=== PATIENT | female | born 1950 | race Caucasian/White ===

== ENCOUNTER 2017-03-26 09:31 | Outpatient (RCR) | payer MEDICARE, SELFPAY | END 2017-03-26 09:32 | disposition home or self-care (01) | LOC: DC 09:31 | PROVIDERS: Family Provider Internal Medicine; PCP Internal Medicine; Visit Provider Internal Medicine | DX: E11.9 Type 2 diabetes mellitus without complications (principal); Z71.3 Dietary counseling and surveillance | CPT/HCPCS: 97803; G0108 ==

== ENCOUNTER → 2017-08-15 06:46 | Outpatient (CLI) | payer MEDICARE, SELFPAY ==
[2017-08-15 07:23] LABS: International Normalized Ratio 1.7; Prothrombin Time (Protime)PT. 20.1 SECONDS (11.7-14.9)
== END ==
PROVIDERS: Family Provider Internal Medicine; PCP Internal Medicine; Visit Provider Internal Medicine
DX: I82.5Y3 Chronic embolism and thrombosis of unspecified deep veins of proximal lower extremity, bilateral (principal)
CPT/HCPCS: 36415; 85610

== ENCOUNTER → 2017-08-19 07:14 | Outpatient (CLI) | payer MEDICARE, SELFPAY ==
[2017-08-19 09:14] LABS: International Normalized Ratio 2.4
== END ==
PROVIDERS: Family Provider Internal Medicine; PCP Internal Medicine; Visit Provider Internal Medicine
DX: I82.5Y3 Chronic embolism and thrombosis of unspecified deep veins of proximal lower extremity, bilateral (principal)
CPT/HCPCS: 36415; 85610

== ENCOUNTER → 2017-08-29 06:52 | Outpatient (CLI) | payer MEDICARE, SELFPAY ==
[2017-08-29 07:26] LABS: International Normalized Ratio 2.1
== END ==
PROVIDERS: Family Provider Internal Medicine; PCP Internal Medicine; Visit Provider Internal Medicine
DX: I82.5Y3 Chronic embolism and thrombosis of unspecified deep veins of proximal lower extremity, bilateral (principal)
CPT/HCPCS: 36415; 85610

== ENCOUNTER 2017-10-01 09:32 | Observation (INO) | payer MEDICARE, SELFPAY ==
[2017-10-01] VITALS (12 sets, daily range): BP systolic 105–141; BP diastolic 57–88; PULSE 56–94; RESP 15–18; TEMP 36.3–36.7; O2SAT 97–100; BMI 32.3; BMI 31.6; BMI 32.4
[2017-10-01 10:24] LABS: Absolute Lymphocyte Count 1.58 X10^3/ul (0.83-4.51); Absolute Neutrophil Count 2.3 X10^3/uL (2.0-7.7); Basophil# 0.01 X10^3/uL; Basophil% 0.2 % (0-1); Eosinophil# 0.31 X10^3/uL; Eosinophils% 6.7 % (0-5); Hematocrit 33.8 % (37-47); Hemoglobin 11.1 g/dl (12.0-15.0); Lymphocyte # 1.58 X10^3/ul (4.0); Lymphocyte % 34.1 % (19-41); Mean Corp Hgb Conc 32.8 g/gl (32-36); Mean Corpuscular Hgb 30.2 pg (27.0-32.0); Mean Corpuscular Volume 92.1 fL (81-99); Mean Platelet Vol. 8.5 fl (6.2-12.0); Monocyte# 0.42 X10^3/uL; Monocyte% 9.1 % (0-10); Neutrophil # 2.31 X10^3/uL (2.7-7.7); Neutrophil % 49.7 % (47-70); Platelet Count 180 K/mm3 (150-450); RBC Distribution Width CV 13.4 % (11.6-14.6); RBC Distribution Width SD 43.6 fl (35.1-43.9); Red Blood Count 3.67 M/mm3 (4.2-5.4); White Blood Count 4.6 K/mm3 (4.4-11.0)
[2017-10-01] MEDS: 0.9% Normal Saline 1,000 ML 150 ML IV ×2 (10:30→12:41)
[2017-10-01 10:36] LABS: Anion Gap 6 (5-15); BUN 27 mg/dL (7-18); BUN/Creat Ratio 22.3 RATIO (10-20); Calcium,Total 9.2 mg/dL (8.5-10.1); Chloride 108 mmol/L (98-107); Creatinine, Serum 1.21 mg/dL (0.55-1.02); EST Glomerular Filtration Rate 47 mL/min (>60); Est Glom Filt Rate - Afr Amer 57 mL/min (>60); Estimated Creatinine Clearance 36.17 ml/min; Glucose 196 mg/dL (74-106); Potassium 4.6 mmol/L (3.5-5.1); Sodium Level 142 mmol/L (136-145)
[2017-10-01 10:40] LABS: POSITIVE COUNT NO; POSITIVE DIFFERENTIAL NO; POSITIVE MORPHOLOGY NO
--- NOTE | 2017-10-01 11:06 | ED.VISSUMM ---
- ER Visit Summary Date of Service: 10/01/17 Chief Complaint: [Syncope] History of Present Illness: The patient is a 66 F [presents the emergency department with a syncopal episode that occurred approximately 8:45 AM. Patient states that she was getting fitted for a brace for her left foot when she sat down and her arm started twitching and passed out in her chair for a couple of minutes per her . Patient denies feeling diaphoretic or lightheaded. Patient denies any chest pain or palpitations. Patient's never had an episode like this before. Patient did not sustain any injuries. Patient does have a history of prior stroke, diabetes, high cholesterol, and left foot drop from prior back issues and back surgery. Currently patient is without complaints.] Physical Examination: [HEENT-PERRLA, EOMI. Cranial nerves II through XII grossly intact. TMs clear. Mucous membranes moist. No adenopathy. Cardiovascular-regular rate and rhythm without murmur or ectopy Lungs-clear to auscultation, chest wall stable without crepitus or subcu emphysema Abdomen-normoactive bowel sounds, soft, nontender, no rebound or rigidity, no peritoneal signs. Neuro [id number] and heel elias testing within normal limits, negative Romberg, negative for drift, fundi benign Extremities-intact ?4, normal range of motion, normal pulses, atraumatic] Test Results: [EKG obtained on arrival shows sinus rhythm with a ventricular rate of 59 bpm with no acute I segment changes. CBC with differential is normal. Chemistries showed sodium 142, potassium 4.6, chloride 108, CO2 28, glucose 196, BUN 27, creatinine 1.21. Troponin was less than 0.015. Orthostatic vital signs were negative.] Emergency Department Course and Treatment: Patient had normal saline IV started.] Treatment Plan: [Admit for observation as etiology of syncope unclear] Disposition: [Admit] Impression: [Syncope-etiology uncertain] This note was generated with Find[employer] dictation software. It may contain incorrect words, spelling, and punctuation that were not noted in review of the chart prior to signing ED Disposition - Plan for ED Patient: Chief Complaint: Syncope Referrals: Bernardo Alfaro MD [Primary Care Provider] -
--- NOTE | 2017-10-01 11:13 | NURSING ---
[facility] notified patient may transfer to PCU.
--- NOTE | 2017-10-01 11:31 | PCM.HP.STD ---
Problem List (1) Syncope Status: Acute Qualifiers: Syncope type: vasovagal syncope Qualified Code(s): R55 - Syncope and collapse History of Present Illness Date of Admission: 10/01/17 Chief Complaint: syncope The patient is a 66 year old F who was in her normal state of health where she had a syncopal episode today. Patient was at [employer] getting fitted for an ankle brace for her dropfoot. Patient was standing up and prior to that was feeling nauseated. Patient then subsequently passed out. No evidence of any tonic-clonic activity. Patient states that she has been eating and drinking well. Blood sugar in the ER was 196. Patient denies any chest pain or any palpitations nor shortness of breath. Patient underwent a workup in the emergency room it just include some lab work creatinine was 1.2 but no baseline available. Patient received IV fluids in the emergency room. Patient still just feels off at this time. No previous syncopal episode in the past. [] Past Medical History Medical History: Medical History (Last Updated 10/01/17 @ 11:33 by Manan Gallagher DO) Chronic bronchitis J42 DM2 (diabetes mellitus, type 2) E11.9 VTE (venous thromboembolism) I82.90 Allergies morphine Allergy (Verified 10/01/17 09:37) Unknown oxycodone HCl [From OxyContin] Allergy (Verified 10/01/17 09:37) Unknown propoxyphene HCl [From Darvon] Allergy (Verified 10/01/17 09:37) Unknown chlorhexidine Adverse Reaction (Verified 10/01/17 09:37) Rash cotton Allergy (Uncoded 10/01/17 09:37) Unknown grass Allergy (Uncoded 10/01/17 09:37) Unknown vinegar Allergy (Uncoded 10/01/17 09:37) Unknown wool Allergy (Uncoded 10/01/17 09:37) Unknown feathers Adverse Reaction (Uncoded 10/01/17 09:37) Unknown Home Medications: Ambulatory Orders Medication Instructions Recorded Albuterol Sulfate [Proventil Hfa] 6.7 gm IH 4X/DAY 01/29/13 Ascorbic Acid [Vitamin C] 500 mg PO DAILY@0800 01/29/13 Estradiol [Vagifem] 10 mcg VG MOFR 01/29/13 Ferrous Gluconate 324 mg PO DAILY 01/29/13 Fluticasone/Salmeterol [Advair 1 puff INHALATION BID 01/29/13 100/50 Diskus] Gabapentin [Neurontin] 400 mg PO TIDCM 01/29/13 Multivitamins,Therapeutic 1 tablet PO DAILY 01/29/13 [Multivitamin] Simvastatin [Zocor] 20 mg PO QHS 01/29/13 Warfarin [Coumadin] 7.5 mg PO MOWEFR 01/29/13 Loratadine/Pseudo 240/10 1 tablet PO DAILY 01/18/14 [Claritin-D 24 Hr] Acetaminophen [Tylenol Extra 500 mg PO Q4H PRN PRN 03/19/14 Strength] Docusate Sodium [Colace] 100 mg PO BID 03/19/14 Glucosam/Trevor-Msm1/C/Jassi/Bosw 1 each PO BID 03/19/14 [Osteo Bi-Flex Caplet] Lansoprazole [Prevacid] 30 mg PO DAILY 03/19/14 Oxybutynin [Ditropan] 15 mg PO DAILY 03/19/14 Tylenol Pm 1,000 mg PO QHS 03/19/14 Warfarin [Coumadin] 5 mg PO SUTUTHSA 03/19/14 traMADol [Ultram (G)] 50 mg PO Q4H PRN PRN 10/01/17 Surgical History: arthroscopy, knee, total knee arthroplasty Psychiatric History: No pertinent psych hx Smoking Status: Former smoker Tobacco Use: Non-smoker Alcohol: None Drugs: None - *Family History Maternal History Items: - - no CAD Review of Systems Constitutional: Denies: Anorexia, Chills, Fever, Night Sweats Eyes: Reports: Blurred vision - Just preceding the syncopal event, Double vision HEENT: Reports: Difficulty Hearing, Hard of Hearing Cardiovascular: Reports: Chest Pain, Claudication, Chest Pressure, Chest Tightness Respiratory: Reports: Cough, Shortness of Breath, Shortness of breath at rest, Shortness of breath upon exertion Gastrointestinal: Reports: Abdominal Pain, Constipation, Dyspepsia, Nausea. Denies: Diarrhea, Vomiting Genitourinary: Denies: Dysuria Musculoskeletal: Denies: Joint Pain, Joint Tenderness Skin: Denies: Dryness, Lesions Neurological: Reports: - - Syncope. Denies: Focal weakness, Numbness, Tingling Psychiatric: Denies: Anxiety, Depression Endocrine: Denies: Change in Body Habitus, Heat/ Cold Intolerance Hematologic/ Lymphatic: Reports: Hx of blood clot. Denies: Easy Bruising, Easy Bleeding Comment: All review of systems are negative except as mentioned in the history of present illness and the other review of systems. VTE Information - Inpt Only VTE Present on Admission: No VTE Mechan Device Prophylaxis: None VTE Pharm Prophylaxis ordered?: Yes Patient Problems: Active and Suspected Problems Syncope (Acute) - Physical Exam General: Alert, Cooperative, No apparent distress HEENT: Atraumatic, Normocephalic Oral: Moist Mucosa, No Gingival or Mucosal Lesions/ Ulcerations, - - Edentulous Neck: No Nodes, Thyroid Normal Size and Texture Lungs: Clear to auscultation, Normal air movement, No rhonchi, No wheeze Cardiovascular: Regular rate, Regular Rhythm, Normal S1, Normal S2, No murmurs Abdomen: Bowel Sounds Present, Soft, Non Tender, Non-Distended, No Hepato-splenomegaly Extremities: No edema, No Calf Tenderness Skin: No rashes, No breakdown Neurological: Cranial nerves II-XII grossly intact, Neuro grossly intact, Motor Exam 5/5 strength throughout, Muscle tone normal, Sensory exam intact to light touch and pain Psych/Mental Status: Normal Affect, Appropriate Vital Signs Temp Pulse Resp BP Pulse Ox 36.6 C 61 16 108/76 98 10/01/17 09:33 10/01/17 10:34 10/01/17 10:34 10/01/17 10:34 10/01/17 10:34 Assessment/Plan All Active Problems Syncope (Acute) 1. Vasovagal syncope Patient noted that she was nauseated previously and this occurred when she was standing up. We will give the patient IV fluids and cycle her troponins This patient is feeling better, then we can consider discharging her later on today Do not feel the patient requires a stroke workup. 2.Venous thromboembolic disease Continue with Coumadin Check INR Hold the patient's vaginal estradiol 3. DVT prophylaxis: Patient is on Coumadin for VTE treatment Discussed with the patient's at bedside Code Visit OBSV E&M: 77715 Initial observation care L3
--- NOTE | 2017-10-01 11:35 | HP.PCM_ITS ---
Problem List (1) Syncope Status: Acute Qualifiers: Syncope type: vasovagal syncope Qualified Code(s): R55 - Syncope and collapse History of Present Illness Date of Admission: 10/01/17 Chief Complaint: syncope The patient is a 66 year old F who was in her normal state of health where she had a syncopal episode today. Patient was at [employer] getting fitted for an ankle brace for her dropfoot. Patient was standing up and prior to that was feeling nauseated. Patient then subsequently passed out. No evidence of any tonic-clonic activity. Patient states that she has been eating and drinking well. Blood sugar in the ER was 196. Patient denies any chest pain or any palpitations nor shortness of breath. Patient underwent a workup in the emergency room it just include some lab work creatinine was 1.2 but no baseline available. Patient received IV fluids in the emergency room. Patient still just feels off at this time. No previous syncopal episode in the past. [] Past Medical History Medical History: Medical History (Last Updated 10/01/17 @ 11:33 by Manan Gallagher DO) Chronic bronchitis J42 DM2 (diabetes mellitus, type 2) E11.9 VTE (venous thromboembolism) I82.90 Allergies morphine Allergy (Verified 10/01/17 09:37) Unknown oxycodone HCl [From OxyContin] Allergy (Verified 10/01/17 09:37) Unknown propoxyphene HCl [From Darvon] Allergy (Verified 10/01/17 09:37) Unknown chlorhexidine Adverse Reaction (Verified 10/01/17 09:37) Rash cotton Allergy (Uncoded 10/01/17 09:37) Unknown grass Allergy (Uncoded 10/01/17 09:37) Unknown vinegar Allergy (Uncoded 10/01/17 09:37) Unknown wool Allergy (Uncoded 10/01/17 09:37) Unknown feathers Adverse Reaction (Uncoded 10/01/17 09:37) Unknown Home Medications: Ambulatory Orders Medication Instructions Recorded Albuterol Sulfate [Proventil Hfa] 6.7 gm IH 4X/DAY 01/29/13 Ascorbic Acid [Vitamin C] 500 mg PO DAILY@0800 01/29/13 Estradiol [Vagifem] 10 mcg VG MOFR 01/29/13 Ferrous Gluconate 324 mg PO DAILY 01/29/13 Fluticasone/Salmeterol [Advair 1 puff INHALATION BID 01/29/13 100/50 Diskus] Gabapentin [Neurontin] 400 mg PO TIDCM 01/29/13 Multivitamins,Therapeutic 1 tablet PO DAILY 01/29/13 [Multivitamin] Simvastatin [Zocor] 20 mg PO QHS 01/29/13 Warfarin [Coumadin] 7.5 mg PO MOWEFR 01/29/13 Loratadine/Pseudo 240/10 1 tablet PO DAILY 01/18/14 [Claritin-D 24 Hr] Acetaminophen [Tylenol Extra 500 mg PO Q4H PRN PRN 03/19/14 Strength] Docusate Sodium [Colace] 100 mg PO BID 03/19/14 Glucosam/Trevor-Msm1/C/Jassi/Bosw 1 each PO BID 03/19/14 [Osteo Bi-Flex Caplet] Lansoprazole [Prevacid] 30 mg PO DAILY 03/19/14 Oxybutynin [Ditropan] 15 mg PO DAILY 03/19/14 Tylenol Pm 1,000 mg PO QHS 03/19/14 Warfarin [Coumadin] 5 mg PO SUTUTHSA 03/19/14 traMADol [Ultram (G)] 50 mg PO Q4H PRN PRN 10/01/17 Surgical History: arthroscopy, knee, total knee arthroplasty Psychiatric History: No pertinent psych hx Smoking Status: Former smoker Tobacco Use: Non-smoker Alcohol: None Drugs: None - *Family History Maternal History Items: - - no CAD Review of Systems Constitutional: Denies: Anorexia, Chills, Fever, Night Sweats Eyes: Reports: Blurred vision - Just preceding the syncopal event, Double vision HEENT: Reports: Difficulty Hearing, Hard of Hearing Cardiovascular: Reports: Chest Pain, Claudication, Chest Pressure, Chest Tightness Respiratory: Reports: Cough, Shortness of Breath, Shortness of breath at rest, Shortness of breath upon exertion Gastrointestinal: Reports: Abdominal Pain, Constipation, Dyspepsia, Nausea. Denies: Diarrhea, Vomiting Genitourinary: Denies: Dysuria Musculoskeletal: Denies: Joint Pain, Joint Tenderness Skin: Denies: Dryness, Lesions Neurological: Reports: - - Syncope. Denies: Focal weakness, Numbness, Tingling Psychiatric: Denies: Anxiety, Depression Endocrine: Denies: Change in Body Habitus, Heat/ Cold Intolerance Hematologic/ Lymphatic: Reports: Hx of blood clot. Denies: Easy Bruising, Easy Bleeding Comment: All review of systems are negative except as mentioned in the history of present illness and the other review of systems. VTE Information - Inpt Only VTE Present on Admission: No VTE Mechan Device Prophylaxis: None VTE Pharm Prophylaxis ordered?: Yes Patient Problems: Active and Suspected Problems Syncope (Acute) - Physical Exam General: Alert, Cooperative, No apparent distress HEENT: Atraumatic, Normocephalic Oral: Moist Mucosa, No Gingival or Mucosal Lesions/ Ulcerations, - - Edentulous Neck: No Nodes, Thyroid Normal Size and Texture Lungs: Clear to auscultation, Normal air movement, No rhonchi, No wheeze Cardiovascular: Regular rate, Regular Rhythm, Normal S1, Normal S2, No murmurs Abdomen: Bowel Sounds Present, Soft, Non Tender, Non-Distended, No Hepato- splenomegaly Extremities: No edema, No Calf Tenderness Skin: No rashes, No breakdown Neurological: Cranial nerves II-XII grossly intact, Neuro grossly intact, Motor Exam 5/5 strength throughout, Muscle tone normal, Sensory exam intact to light touch and pain Psych/Mental Status: Normal Affect, Appropriate Vital Signs Temp Pulse Resp BP Pulse Ox 36.6 C 61 16 108/76 98 10/01/17 09:33 10/01/17 10:34 10/01/17 10:34 10/01/17 10:34 10/01/17 10:34 Assessment/Plan All Active Problems Syncope (Acute) 1. Vasovagal syncope * Patient noted that she was nauseated previously and this occurred when she was standing up. * We will give the patient IV fluids and cycle her troponins * This patient is feeling better, then we can consider discharging her later on today * Do not feel the patient requires a stroke workup. 2.Venous thromboembolic disease * Continue with Coumadin * Check INR * Hold the patient's vaginal estradiol 3. DVT prophylaxis: Patient is on Coumadin for VTE treatment Discussed with the patient's at bedside Code Visit OBSV E&M: 79275 Initial observation care L3
[2017-10-01 12:06] LABS: Prothrombin Time (Protime)PT. 22.6 SECONDS (11.7-14.9)
[2017-10-01 12:50] LABS: Bedside Glucose 129 mg/dL (70-110)
[2017-10-01] MEDS: Gabapentin 400 MG Capsule PO ×2 (12:53→17:44)
[2017-10-01] MEDS: Acetaminophen 325 MG Tablet 650 MG PO (12:53)
[2017-10-01] MEDS: Pantoprazole Sodium 40 MG Tablet PO (12:53)
[2017-10-01 17:00] LABS: Bedside Glucose 143 mg/dL (70-110)
[2017-10-01] MEDS: traMADol 50 MG Tablet PO (18:31)
[2017-10-01] MEDS: Albuterol 2.5 MG/3 ML VIAL.NEB. INHALATION (19:09)
[2017-10-01] MEDS: Budesonide Respules 0.5 MG/2 ML AMPUL.NEB. INHALATION (19:10)
[2017-10-01] MEDS: DiphenhydrAMINE 25 MG Capsule 50 MG PO (22:02)
[2017-10-01] MEDS: Atorvastatin Calcium 10 MG Tablet PO (22:02)
[2017-10-01 22:11] LABS: Bedside Glucose 166 mg/dL (70-110)
[2017-10-02] VITALS (9 sets, daily range): BP systolic 106–151; BP diastolic 67–90; PULSE 65–85; RESP 16–18; TEMP 36.6–37.2; O2SAT 93–99
[2017-10-02 06:36] LABS: International Normalized Ratio 2.1; Prothrombin Time (Protime)PT. 23.5 SECONDS (11.7-14.9)
[2017-10-02 06:49] LABS: Anion Gap 6 (5-15); BUN 25 mg/dL (7-18); BUN/Creat Ratio 25.3 RATIO (10-20); Calcium,Total 8.7 mg/dL (8.5-10.1); Chloride 111 mmol/L (98-107); Creatinine, Serum 0.99 mg/dL (0.55-1.02); EST Glomerular Filtration Rate 60 mL/min (>60); Est Glom Filt Rate - Afr Amer 72 mL/min (>60); Estimated Creatinine Clearance 42.18 ml/min; Glucose 119 mg/dL (74-106); Potassium 4.3 mmol/L (3.5-5.1); Sodium Level 143 mmol/L (136-145)
[2017-10-02 07:06] LABS: Bedside Glucose 106 mg/dL (70-110)
[2017-10-02] MEDS: Budesonide Respules 0.5 MG/2 ML AMPUL.NEB. INHALATION (07:12)
[2017-10-02] MEDS: Albuterol 2.5 MG/3 ML VIAL.NEB. INHALATION ×2 (07:12→13:18)
--- NOTE | 2017-10-02 07:32 | PCM.PN.HOSP ---
Patient Problems: Active and Suspected Problems (Last Updated 10/01/17 @ 11:33 by Manan Gallagher DO) Syncope (Acute) Subjective: Patient was seen and examined. She feels much improved. Orthostatic vitals is negative. Denies any fever or chills or dizziness or palpitations. Vitals/I&O's: Vital Signs Temp Pulse Resp BP Pulse Ox 98.9 F 74 16 106/67 93 10/02/17 03:57 10/02/17 03:57 10/02/17 03:57 10/02/17 03:57 10/02/17 03:57 Oxygen Delivery Method Room Air Weight: 77.9 kg Body Mass Index (BMI) 31.6 Orthostatic Vital Signs Start: 10/01/17 12:42 Freq: q24h Status: Active Protocol: Activity Type Activity Date Activity User E-Sign Co-Sign Detail Recorded Client Recorded Date Recorded By Document 10/01/17 12:30 [employer] CLERK [id number] 10/01/17 12:43 [employer]ERK 10/01/17 12:30 Orthostatic Vitals Standing -Blood Pressure (90/60-120/80) 138/88 H -Extremity Use Right Arm -Pulse Rate (60-100) 75 Sitting -Blood Pressure (90/60-120/80) 141/82 H -Extremity Use Right Arm -Pulse Rate (60-100) 61 Lying -Blood Pressure (90/60-120/80) 111/67 -Extremity Use Right Arm -Pulse Rate (60-100) 62 Intake and Output for Last 24 Hours 09/30/17 10/01/17 10/02/17 23:59 23:59 23:59 Intake Total 1666 / 1666 659 / 659 Balance 1666 / 1666 659 / 659 General: Alert, Oriented x3, Cooperative HEENT: Atraumatic, PERRLA, EOMI, Normocephalic Oral: Moist Mucosa Neck: Supple Lungs: Clear to auscultation, Normal air movement Cardiovascular: Regular rate, Regular Rhythm, Normal S1, Normal S2, No murmurs Abdomen: Bowel Sounds Present, Soft, Non Tender, Non-Distended, No Hepato-splenomegaly Extremities: No edema Skin: No rashes, No breakdown Musculoskeletal: No Tenderness to Palpation of Joints or Extremities Lymphatic: No Cervical, Supraclavicular, or Inguinal Adenopathy Neurological: Cranial nerves II-XII grossly intact, Neuro grossly intact Psych/Mental Status: Normal Affect, Appropriate Laboratory Results 10/01/17 12:42: POC Glucose 129 H 10/01/17 13:47: Troponin I < 0.015 10/01/17 16:33: Troponin I < 0.015 10/01/17 16:54: POC Glucose 143 H 10/01/17 21:55: POC Glucose 166 H 10/02/17 06:20: PT Pending, INR Pending 10/02/17 06:20: Sodium 143, Potassium 4.3, Chloride 111 H, Carbon Dioxide 26.0, Anion Gap 6, BUN 25 H, Creatinine 0.99, Estim Creat Clear Calc 42.18, Est GFR (MDRD) Af Amer 72, Est GFR (MDRD) Non-Af 60, BUN/Creatinine Ratio 25.3 H, Glucose 119 H, Calcium 8.7 10/02/17 06:58: POC Glucose 106 Current Medications Acetaminophen (Tylenol) 650 mg PO Q6H PRN PRN PRN Reason: Mild Pain (1-3)/Temp > 100.7 F Last Admin: 10/01/17 12:53 Dose: 650 mg Albuterol Sulfate (Ventolin Aerosols) 2.5 mg INHALATION Q6HWA.RT [facility] Last Admin: 10/02/17 07:12 Dose: 2.5 mg Ascorbic Acid (Vitamin C) 500 mg PO DAILY@0800 [facility] Atorvastatin Calcium (Lipitor) 10 mg PO QHS [facility] Last Admin: 10/01/17 22:02 Dose: 10 mg Budesonide (Pulmicort Aerosol) 0.5 mg INHALATION Q12H.RT [facility] Last Admin: 10/02/17 07:12 Dose: 0.5 mg Calcium/Vitamin D (Os-James 500mg + D) 2 tablet PO BIDCM [facility] Diphenhydramine HCl (Benadryl) 50 mg PO QHS [facility] Last Admin: 10/01/17 22:02 Dose: 50 mg Docusate Sodium (Colace) 100 mg PO BID [facility] Last Admin: 10/01/17 22:02 Dose: Not Given Ferrous Gluconate (Ferrous Gluconate) 325 mg PO DAILYCM [facility] Gabapentin (Neurontin) 400 mg PO TIDCM [facility] Loperamide HCl (Imodium) 2 mg PO Q6H PRN PRN PRN Reason: Diarrhea Loratadine (Claritin) 10 mg PO DAILY [facility] Magnesium Hydroxide (Milk Of Magnesia) 30 ml PO DAILY PRN PRN Reason: Constipation Metformin HCl (Glucophage) 500 mg PO DAILY@0800 [facility] Multivitamins (Multivitamin) 1 tablet PO DAILYCM [facility] Ondansetron HCl (Zofran) 4 mg IV Q8H PRN PRN PRN Reason: NAUSEA Pantoprazole Sodium (Protonix) 20 mg PO DAILY [facility] Pseudoephedrine HCl (Sudafed) 60 mg PO Q6H PRN PRN Reason: CONGESTION Sodium Chloride () 5 - 30 ml IV UD PRN PRN Reason: SALINE FLUSH Tolterodine Tartrate (Detrol La) 2 mg PO DAILY [facility] Tramadol HCl (Ultram) 50 mg PO Q4H PRN PRN PRN Reason: PAIN Last Admin: 10/01/17 18:31 Dose: 50 mg Warfarin Sodium (Coumadin (Pbkc)) 5 mg PO SuTuThSa@1700 [facility] Last Admin: 10/01/17 16:36 Dose: Not Given Warfarin Sodium (Coumadin (Pbkc)) 7.5 mg PO MoWeFr@1700 [facility] Medical Necessity - Tobacco Use Smoking Status: Former smoker Tobacco Use: Non-smoker Assessment/Plan All Active Problems (Last Updated 10/01/17 @ 11:33 by Manan Gallagher DO) Syncope (Acute) 66 y/o female with past medical history of DVT who comes in after a syncopal episode and being managed as vasovagal syncope. 1. Syncope, likely vasovagal, orthostatic vitals were negative, troponins are negative, repeat orthostatic vitals today is negative. 2. H/o VTE on chronic coumadin, INR is 2.1, continue on Coumadin, follow-up on INR in the outpatient 3. H/o foot drop, on ankle brace by [employer] 4. DVT Ppx- on Coumadin Code Visit Inpatient E&M: 12010 Subs Hosp L2
[2017-10-02] MEDS: Calcium Carb/Vitamin D 1 TABLET Tablet 2 TABLET PO (08:21)
[2017-10-02] MEDS: Gabapentin 400 MG Capsule PO ×2 (08:22→12:40)
[2017-10-02] MEDS: Multivitamins,Therapeutic Tablet 1 TABLET PO (08:22)
[2017-10-02] MEDS: Ascorbic Acid 500 MG Tablet PO (08:22)
[2017-10-02] MEDS: Docusate Sodium 100 MG Capsule PO (08:24)
[2017-10-02] MEDS: Tolterodine Tartrate 2 MG CAP.SA PO (08:26)
[2017-10-02] MEDS: Ferrous Gluconate 325 MG Tablet PO (09:21)
[2017-10-02] MEDS: Loratadine 10 MG Tablet PO (12:40)
[2017-10-02] MEDS: Pantoprazole Sodium 20 MG Tablet PO (12:40)
[2017-10-02 12:51] LABS: Bedside Glucose 99 mg/dL (70-110)
--- NOTE | 2017-10-02 14:26 | PCM.DC ---
- Discharge Diagnoses Current Active Problems: Current Active and Chronic Problems (Last Updated 10/01/17 @ 11:33 by Manan Gallagher DO) Syncope (Acute) Reason(s) for Visit for Discharge Instructions: Syncope You will use the following diet at home:: Regular Your food should be the consistency of: Regular Your liquids should be the consistency of: Regular/Thin Discharge Activity: Return to Normal Activity Additional Instructions: Note changes to your medications. Keep yourself hydrated all the time. Continue to use your assistive device for your foot drop. Continue to check your INR as scheduled previously with your PCP. Allergies/Adverse Reactions: Allergies morphine Allergy (Verified 10/01/17 09:37) Unknown oxycodone HCl [From OxyContin] Allergy (Verified 10/01/17 09:37) Unknown propoxyphene HCl [From Darvon] Allergy (Verified 10/01/17 09:37) Unknown chlorhexidine Adverse Reaction (Verified 10/01/17 09:37) Rash cotton Allergy (Uncoded 10/01/17 09:37) Unknown grass Allergy (Uncoded 10/01/17 09:37) Unknown vinegar Allergy (Uncoded 10/01/17 09:37) Unknown wool Allergy (Uncoded 10/01/17 09:37) Unknown feathers Adverse Reaction (Uncoded 10/01/17 09:37) Unknown Medications to take at Discharge Albuterol Sulfate [Proventil Hfa] 6.7 gm IH 4X/DAY 01/29/13 Ascorbic Acid [Vitamin C] 500 mg PO DAILY@0800 01/29/13 Estradiol [Vagifem] 10 mcg VG MOFR 01/29/13 Fluticasone/Salmeterol [Advair 100/50 Diskus] 1 puff INHALATION BID 01/29/13 Multivitamins,Therapeutic [Multivitamin] 1 tablet PO DAILY 01/29/13 Simvastatin [Zocor] 20 mg PO QHS 01/29/13 Warfarin [Coumadin] 7.5 mg PO MOWEFR 01/29/13 Acetaminophen [Tylenol] 500 mg PO Q4H PRN PRN 03/19/14 Docusate Sodium [Colace] 100 mg PO BID 03/19/14 Warfarin [Coumadin] 5 mg PO SUTUTHSA 03/19/14 Calcium Carbonate/Vitamin D3 [Calcium 500-Vit D3 200 Tablet] 2 each PO BID 10/01/17 Levocetirizine Dihydrochloride [Xyzal] 5 mg PO DAILY 10/01/17 Loperamide [Imodium] 2 mg PO Q6H PRN PRN 10/01/17 Metformin HCl [Glucophage] 500 mg PO DAILY 10/01/17 [place]-3 Fatty Acids/Fish Oil [Fish Oil 1,000 mg Capsule] 3 each PO DAILY 10/01/17 Omeprazole [Prilosec] 20 mg PO DAILY 10/01/17 Oxybutynin Chloride [Ditropan Xl] 10 mg PO DAILY 10/01/17 traMADol [Ultram] 50 mg PO BID PRN PRN 10/01/17 Ferrous Gluconate 325 mg PO DAILYCM #30 tab 10/02/17 Gabapentin [Neurontin] 400 mg PO TIDCM #90 cap 10/02/17 The following prescriptions were given: Ferrous Gluconate 325 mg PO DAILYCM #30 tab Gabapentin [Neurontin] 400 mg PO TIDCM #90 cap Primary Care Physician: Bernardo Alfaro MD [Primary Care Provider] - Please follow up with your Primary Care Physician in: within 2 weeks Test Results: Test results from this visit will be discussed in further detail at your follow-up appointment, if applicable. Proposed Discharge Date: 10/02/17
--- NOTE | 2017-10-02 14:33 | PCM.DC.SUM ---
Discharge Date and Diagnosis Date of Admission: 10/01/17 Date of Discharge: 10/02/17 - Primary Discharge Diagnosis Active and Suspected Problems (Last Updated 10/01/17 @ 11:33 by Manan Gallagher DO) Syncope (Acute), vasovagal Hospital Course and Treatment None Operations: None Procedures: None Summary of Care Provided: 66 y/o female with past medical history of DVT who comes in after a syncopal episode. Patient was getting fitted for an ankle brace for her left foot drop when she started feeling warm and started down and had a syncopal episode. No history of seizures. 1. Syncope, likely vasovagal, orthostatic vitals were negative, troponins are negative, patient was encouraged to increase her fluid intake, and follow-up with her primary within 2 weeks. 2. 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 3. H/o foot drop, on ankle brace by [employer] Discharge Diet: Low fat/ Low Cholesterol, 2000 mg Sodium Diet Discharge Activity: Return to Normal Activity Home Medications: Medications to take at Discharge Albuterol Sulfate [Proventil Hfa] 6.7 gm IH 4X/DAY 01/29/13 Ascorbic Acid [Vitamin C] 500 mg PO DAILY@0800 01/29/13 Estradiol [Vagifem] 10 mcg VG MOFR 01/29/13 Fluticasone/Salmeterol [Advair 100/50 Diskus] 1 puff INHALATION BID 01/29/13 Multivitamins,Therapeutic [Multivitamin] 1 tablet PO DAILY 01/29/13 Simvastatin [Zocor] 20 mg PO QHS 01/29/13 Warfarin [Coumadin] 7.5 mg PO MOWEFR 01/29/13 Acetaminophen [Tylenol] 500 mg PO Q4H PRN PRN 03/19/14 Docusate Sodium [Colace] 100 mg PO BID 03/19/14 Warfarin [Coumadin] 5 mg PO SUTUTHSA 03/19/14 Calcium Carbonate/Vitamin D3 [Calcium 500-Vit D3 200 Tablet] 2 each PO BID 10/01/17 Levocetirizine Dihydrochloride [Xyzal] 5 mg PO DAILY 10/01/17 Loperamide [Imodium] 2 mg PO Q6H PRN PRN 10/01/17 Metformin HCl [Glucophage] 500 mg PO DAILY 10/01/17 [place]-3 Fatty Acids/Fish Oil [Fish Oil 1,000 mg Capsule] 3 each PO DAILY 10/01/17 Omeprazole [Prilosec] 20 mg PO DAILY 10/01/17 Oxybutynin Chloride [Ditropan Xl] 10 mg PO DAILY 10/01/17 traMADol [Ultram] 50 mg PO BID PRN PRN 10/01/17 Ferrous Gluconate 325 mg PO DAILYCM #30 tab 10/02/17 Gabapentin [Neurontin] 400 mg PO TIDCM #90 cap 10/02/17 Following Prescrptions Were Given to Patient: Ferrous Gluconate 325 mg PO DAILYCM #30 tab Gabapentin [Neurontin] 400 mg PO TIDCM #90 cap Primary Care Physician: Bernardo Alfaro MD [Primary Care Provider] - Please follow up with your Primary Care Physician in: within 2 weeks Disposition: Home Minutes spent on discharge:: 40 Patient Condition:: Stable Medical Necessity - Tobacco Use Smoking Status: Former smoker Tobacco Use: Non-smoker Meaningful Use Info Meaningful Use Diagnoses (Choose all that apply): None applicable Code Visit Inpatient E&M: 20208 Subs Hosp L2
== END 2017-10-02 14:20 | disposition home or self-care (01) ==
LOC: ED 10:29 → PCU 11:16
PROVIDERS: Emergency Provider Emergency Medicine; Family Provider Internal Medicine; PCP Internal Medicine; Visit Provider Internal Medicine
DX: R55 Syncope and collapse (principal); M21.372 Foot drop, left foot; R11.0 Nausea; E11.9 Type 2 diabetes mellitus without complications; J42 Unspecified chronic bronchitis; Z87.891 Personal history of nicotine dependence; Z86.718 Personal history of other venous thrombosis and embolism; Z79.01 Long term (current) use of anticoagulants; Z79.899 Other long term (current) drug therapy; Z79.84 Long term (current) use of oral hypoglycemic drugs
CPT/HCPCS: 36415; 80048; 82962; 84484; 85025; 85610; 93005; 94640; 96360; 96361; 97116; 97162; 97166; 97530; 97535; 97802; 99218; 99285; J7030; A4216; G0378

== ENCOUNTER 2017-10-08 06:29 | Outpatient (RCR) | payer MEDICARE, SELFPAY ==
[2017-09-19 09:05] LABS: International Normalized Ratio 1.8; Prothrombin Time (Protime)PT. 21.1 SECONDS (11.7-14.9)
[2017-10-08 07:34] LABS: International Normalized Ratio 1.8
== END 2017-10-08 08:00 | disposition home or self-care (01) ==
LOC: LAB 06:29
PROVIDERS: Family Provider Internal Medicine; PCP Internal Medicine; Visit Provider Internal Medicine
DX: I82.5Y3 Chronic embolism and thrombosis of unspecified deep veins of proximal lower extremity, bilateral (principal)
CPT/HCPCS: 36415; 85610

== ENCOUNTER 2017-10-31 06:46 | Outpatient (RCR) | payer MEDICARE, SELFPAY ==
[2017-10-23 08:09] LABS: International Normalized Ratio 2.6; Prothrombin Time (Protime)PT. 28.3 SECONDS (11.7-14.9)
[2017-10-31 07:30] LABS: International Normalized Ratio 2.6; Prothrombin Time (Protime)PT. 27.6 SECONDS (11.7-14.9)
== END 2017-10-31 08:00 | disposition home or self-care (01) ==
LOC: LAB 06:46
PROVIDERS: Family Provider Internal Medicine; PCP Internal Medicine; Visit Provider Internal Medicine
DX: I82.5Y3 Chronic embolism and thrombosis of unspecified deep veins of proximal lower extremity, bilateral (principal)
CPT/HCPCS: 36415; 85610

== ENCOUNTER → 2017-11-15 10:24 | Outpatient (CLI) | payer MEDICARE, SELFPAY ==
--- NOTE | 2017-11-15 10:35 | RAD_ITS ---
STUDY: X-RAY - LUMBAR SPINE REASON FOR EXAM: Female, 66 years old. LOW BACK PAIN; MYOFASCIAL PAIN SYNDROME, LUMBAR POST LAMINECTOMY SYNDROME, OSTEOARTHRITIS TECHNIQUE: 5 view(s) of the lumbar spine were obtained. COMPARISON: August 06, 2016 FINDINGS: Normal lumbar lordosis. There is no substantial scoliosis. Spinal fixation hardware is noted. Stable grade 1 retrolisthesis of L2 on L3. Stable grade 1 anterolisthesis of L4 on L5. Hardware appears intact. There is multilevel endplate spondylosis of the lumbar vertebrae. There is multi-level degenerative disc disease with multi-level disc space narrowing. There are atherosclerotic vascular calcifications. The soft tissue structures are unremarkable. RAD/L/S Spine Min 4 Views IMPRESSION: Degenerative changes of the spine, as detailed above. There has been no change since the prior study. Electronically Signed: Venkata June MD at 20:52 EDT , Service support ,
== END ==
PROVIDERS: Family Provider Internal Medicine; PCP Internal Medicine
DX: M79.1 Myalgia (principal); M96.1 Postlaminectomy syndrome, not elsewhere classified; M15.9 Polyosteoarthritis, unspecified
CPT/HCPCS: 72110

== ENCOUNTER → 2017-11-19 17:25 | Outpatient (CLI) | payer MEDICARE, SELFPAY | PROVIDERS: Family Provider Internal Medicine; PCP Internal Medicine; Referring Provider Nurse Practitioner Adult Health; Visit Provider Nurse Practitioner Adult Health | DX: R82.90 Unspecified abnormal findings in urine (principal) | CPT/HCPCS: 87077; 87086; 87088; 87186 ==

== ENCOUNTER 2017-11-21 06:31 | Outpatient (RCR) | payer MEDICARE, SELFPAY ==
[2017-11-21 07:30] LABS: International Normalized Ratio 2.5; Prothrombin Time (Protime)PT. 27.4 SECONDS (11.7-14.9)
== END 2017-11-21 08:00 | disposition home or self-care (01) ==
LOC: LAB 06:31
PROVIDERS: Family Provider Internal Medicine; PCP Internal Medicine; Referring Provider Internal Medicine; Visit Provider Internal Medicine
DX: I82.5Y3 Chronic embolism and thrombosis of unspecified deep veins of proximal lower extremity, bilateral (principal)
CPT/HCPCS: 36415; 85610

== ENCOUNTER → 2018-01-15 10:42 | Outpatient (CLI) | payer MEDICARE, SELFPAY ==
--- NOTE | 2018-01-26 22:23 | LEAS ---
Arterial Study - Arterial Study Arterial Study: This is a 67-year-old female with a history of diabetes mellitus and hyperlipidemia. The patient presents with pain and paresthesias in her left foot suggestive of atherosclerotic peripheral arterial occlusive disease. She is brought to the noninvasive vascular laboratory at this time for the purpose of bilateral noninvasive lower extremity arterial assessment. Doppler signal assessment was used to evaluate the pulses at ankle level bilaterally. The posterior tibial and dorsalis pedis pulses were triphasic bilaterally. Segmental limb pressures were obtained bilaterally. The right ankle pressure, as determined by posterior tibial pulse, was measured at 157 mmHg. The right ankle pressure, as determined by dorsalis pedis pulse, was measured at 170 mmHg. The right digital pressure was measured at 112 mmHg. The left ankle pressure, as determined by posterior tibial and dorsalis pedis pulses, could not be determined due to the noncompressibility of the vasculature. The left digital pressure was measured at 128 mmHg. Pulse?volume recordings were obtained bilaterally and segmentally. Waveform amplitudes appeared to be satisfactory at all levels bilaterally, though the left digital waveform amplitude was slightly diminished. Resting ankle?brachial indices were calculated bilaterally. The resting right ankle?brachial index was calculated to be 1.24. The resting left ankle?brachial index could not be calculated due to the noncompressibility of the vasculature. Digital-brachial indices were calculated bilaterally. The right digital-brachial index was calculated to be 0.82. The left digital-brachial index was calculated to be 0.93. Impression: Based upon the findings of this resting noninvasive lower extremity arterial study, there is no evidence of significant atherosclerotic peripheral arterial occlusive disease in the lower extremities bilaterally. Triphasic waveforms are noted at ankle level bilaterally. The resting right ankle?brachial index is normal. The resting left ankle?brachial index could not be calculated due to the noncompressibility of the vasculature, suggestive of arterial calcification. In this regard, clinical correlation is advised. Digital-brachial indices are bilaterally normal.
--- NOTE | 2018-01-26 22:32 | LEAS_ITS ---
Arterial Study - Arterial Study Arterial Study: This is a 67-year-old female with a history of diabetes mellitus and hyp erlipidemia. The patient presents with pain and paresthesias in her left foot suggestive of atherosclerotic peripheral arterial occlusive disease. She is brought to the noninvasive vascular laboratory at this time for the purpose of bilateral noninvasive lower extremity arterial assessment. Doppler signal assessment was used to evaluate the pulses at ankle level bilaterally. The posterior tibial and dorsalis pedis pulses were triphasic bilaterally. Segmental limb pressures were obtained bilaterally. The right ankle pressure, as determined by posterior tibial pulse, was measured at 157 mmHg. The right ankle pressure, as determined by dorsalis pedis pulse, was measured at 170 mmHg. The right digital pressure was measured at 112 mmHg. The left ankle pressure, as determined by posterior tibial and dorsalis pedis pulses, could not be determined due to the noncompressibility of the vasculature. The left digital pressure was measured at 128 mmHg. Pulse?volume recordings were obtained bilaterally and segmentally. Waveform amplitudes appeared to be satisfactory at all levels bilaterally, though the left digital waveform amplitude was slightly diminished. Resting ankle?brachial indices were calculated bilaterally. The resting right ankle?brachial index was calculated to be 1.24. The resting left ankle?brachial index could not be calculated due to the noncompressibility of the vasculature. Digital-brachial indices were calculated bilaterally. The right digital- brachial index was calculated to be 0.82. The left digital-brachial index was calculated to be 0.93. Impression: Based upon the findings of this resting noninvasive lower extremity arterial study, there is no evidence of significant atherosclerotic peripheral arterial occlusive disease in the lower extremities bilaterally. Triphasic waveforms are noted at ankle level bilaterally. The resting right ankle?brachial index is normal. The resting left ankle?brachial index could not be calculated due to the noncompressibility of the vasculature, suggestive of arterial calcification. In this regard, clinical correlation is advised. Digital-brachial indices are bilaterally normal.
--- OUTSIDE RECORDS SUMMARY | 2018-03-12 19:08 | XMS RPT_ITS ---
:1950 Author Organization OHIP Support Name Relationship Address Phone DOT COMBS Unavailable [address] [place] [address] + [place] [address] R Unavailable Unavailable Unavailable LAURYN, DOT Unavailable [address] [place] [address] + [place] [address] R Unavailable Unavailable Unavailable LAURYN, DOT Unavailable [address] [place] [address] + [place] [address] R Unavailable Unavailable Unavailable LAURYN, DOT Unavailable [address] [place] [address] + [place] [address] R Unavailable Unavailable Unavailable LAURYN, DOT Unavailable [address] [place] [address] + [place] [address] R Unavailable Unavailable Unavailable LAURYN, DOT Unavailable [address] [place] [address] + [place] [address] R Unavailable Unavailable Unavailable LAURYN, DOT Unavailable [address] [place] [address] DR + [place] [address] R Unavailable Unavailable Unavailable LAURYN, DOT Unavailable [address] [place] [address] DR + [place] [address] R Unavailable Unavailable Unavailable LAURYN, DOT Unavailable [address] [place] [address] DR + [place] [address] R Unavailable Unavailable Unavailable LAURYN, DOT Unavailable [address] [place] [address] DR + [place] [address] R Unavailable Unavailable Unavailable LAURYN, DOT Unavailable [address] [place] [address] DR + [place] [address] R Unavailable Unavailable Unavailable LAURYN, DOT Unavailable [address] [place] [address] DR + [place] [address] R Unavailable Unavailable Unavailable LAURYN, DOT Unavailable [address] [place] [address] DR + [place] [address] R Unavailable Unavailable Unavailable LAURYN, DOT Unavailable [address] [place] [address] DR + [place] [address] R Unavailable Unavailable Unavailable LAURYN, DOT Unavailable [address] [facility] + [place] [address] R Unavailable Unavailable Unavailable DOT COMBS Unavailable [address] [facility] [address] [phone] [place] [address] R Unavailable Unavailable Unavailable Care Team Providers Name Role Phone Bernardo Alfaro Attending Unavailable Alfaro, Bernardo Referring Unavailable Alfaro, Bernardo Primary Care Unavailable Alfaro, Bernardo Attending Unavailable Alfaro, Bernardo Referring Unavailable Alfaro, Bernardo Primary Care Unavailable Alfaro, Bernardo Attending Unavailable Alfaro, Bernardo Referring Unavailable Alfaro, Bernardo Primary Care Unavailable Alfaro, Bernardo Attending Unavailable Alfaro, Bernardo Referring Unavailable Alfaro, Bernardo Primary Care Unavailable Alfaro, Bernardo Attending Unavailable Alfaro, Bernardo Referring Unavailable Alfaro, Bernardo Primary Care Unavailable Alfaro, Bernardo Primary Care Unavailable Jopperi, Manan Admitting Unavailable Paintsil, Osseo Attending Unavailable Joppcristi, Manan Admitting Unavailable Jopperi, Manan Attending Unavailable Alfaro, Bernardo Primary Care Unavailable Jopperi, Manan Consulting Unavailable Jopperi, Manan Admitting Unavailable Paintsil, Osseo Attending Unavailable Alfaro, Bernardo Primary Care Unavailable Paintsil, Osseo Consulting Unavailable Bernardo Alfaro Attending Unavailable Dominic, Bernardo Referring Unavailable Alfaro, Bernardo Primary Care Unavailable RANJIT VERDIN Attending Unavailable RANJIT VERDIN Referring Unavailable Alfaro, Bernardo Primary Care Unavailable AlfaroBernardo ch Attending Unavailable Alfaro, Bernardo Primary Care Unavailable Brianne Ewing Attending Unavailable Brianne Ewing Referring Unavailable Alfaro, Bernardo Primary Care Unavailable Alfaro, Bernardo Attending Unavailable Alfaro, Bernardo Referring Unavailable Alfaro, Bernardo Primary Care Unavailable Alfaro, Bernardo Attending Unavailable Alfaro, Bernardo Referring Unavailable Alfaro, Bernardo Primary Care Unavailable Joyce Morales Attending Unavailable Joyce Morales Referring Unavailable Alfaro, Bernardo Primary Care Unavailable Alfaro, Bernardo Attending Unavailable Alfaro, Bernardo Referring Unavailable Alfaro, Bernardo Primary Care Unavailable ALFAROBERNARDO CH H Referring Unavailable KIMBERLY FARAH ([facility]) Attending Unavailable ALFARO, TROY Referring Unavailable ALFARO, TROY Attending Unavailable ALFARO, TROY Referring Unavailable ALFARO, TROY Referring Unavailable ARGELIA THOMSON Referring Unavailable ALFARO, TROY Referring Unavailable OLDER, KIMBERLY ([facility]) Referring Unavailable ALFARO, TROY Referring Unavailable ALFARO, TROY Referring Unavailable ALFARO, TROY Referring Unavailable ALFARO, TROY Attending Unavailable ALFARO, TROY Referring Unavailable ALFARO, TROY Referring Unavailable OLDER, KIMBERLY ([facility]) Attending Unavailable OLDER, KIMBERLY ([facility]) Attending Unavailable OLDER, KIMBERLY ([facility]) Referring Unavailable ALFARO, TROY Referring Unavailable OLDER, KIMBERLY ([facility]) Attending Unavailable OLDER, KIMBERLY ([facility]) Referring Unavailable TESTRAKE, ALEXANDRU Attending Unavailable ALFARO, TROY Referring Unavailable TESTRAKE, ALEXANDRU Referring Unavailable TESTRAKE, ALEXANDRU Attending Unavailable TESTRAKE, ALEXANDRU Referring Unavailable ALFARO, TROY Referring Unavailable TESTRAKE, ALEXANDRU Attending Unavailable TESTRAKE, ALEXANDRU Referring Unavailable TESTRAKE, ALEXANDRU Attending Unavailable TESTRAKE, ALEXANDRU Referring Unavailable TESTRAKE, ALEXANDRU Referring Unavailable TESTRAKE, ALEXANDRU Attending Unavailable TESTRAKE, ALEXANDRU Referring Unavailable TESTRAKE, ALEXANDRU Referring Unavailable OLDER, KIMBERLY ([facility]) Attending Unavailable BERTOARGELIA Attending Unavailable ALFARO, TROY Referring Unavailable ALFARO, TROY Attending Unavailable ALFARO, TROY Referring Unavailable Pete Roman Attending Unavailable Alfaro, Troy. Primary Care Unavailable Pete Roman Attending Unavailable Alfaro, Troy. Primary Care Unavailable Lv Hearn Attending Unavailable Alfaro, Troy. 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 [place] Repository 10/04/2017 Active Charcot's joint, NA Active [facility] left ankle and foot [facility] / M14.672(ICD-10) [place] Repository 10/04/2017 Active Type 2 diabetes NA Active [facility] mellitus with other [facility] diabetic [place] neurological Repository complication / E11.49(ICD-10) 09/13/2017 Active Type 2 diabetes NA Active [facility] mellitus with [facility] diabetic neuropathic [place] arthropathy / Repository E11.610(ICD-10) 09/13/2017 Active Dislocation of NA Active [facility] tarsometatarsal [facility] joint of left foot, [place] subsequent encounter Repository / S93.325D(ICD-10) 10/21/2013 Active Other chronic NA Active [facility] cystitis without [facility] hematuria / [place] N30.20(ICD-10) Repository 08/19/2017 Active Unspecified NA Active [facility] dislocation of left [facility] foot, initial [place] encounter / Repository S93.305A(ICD-10) 04/28/2015 Active 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 [place] veins of proximal Repository lower extremity, bilateral / I82.5Y3(ICD-10) 08/06/2017 Active Unspecified injury OLDER, KIMBERLY Active [facility] of left foot, ([employer]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 [facility] 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 encounter / [place] S99.922A(ICD-10) Repository 08/06/2017 Active Other disturbances OLDER, KIMBERLY Active [facility] of skin sensation / ([employer]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 R20.8(ICD-10) [place] Repository 07/12/2017 Active Chronic kidney NA Active [facility] disease, stage 3 [facility] (moderate) / [place] N18.3(ICD-10) Repository 07/12/2017 Active Type 2 diabetes NA Active [facility] mellitus with [facility] unspecified [place] complications / Repository E11.8(ICD-10) 05/09/2017 Active Disorder of kidney NA Active [facility] and ureter, [facility] unspecified / [place] N28.9(ICD-10) Repository 04/15/2017 Active Encounter for NA Active [facility] screening mammogram [facility] for malignant [place] neoplasm of breast / Repository Z12.31(ICD-10) 04/10/2017 Active Other symptoms and NA Active [facility] signs involving [facility] cognitive functions [place] and awareness / Repository R41.89(ICD-10) 11/08/2016 Active Type 2 diabetes NA Active [facility] mellitus without [facility] complications / [place] E11.9(ICD-10) Repository 04/11/2017 Active Other mcfp NA Active [facility] (current) drug [facility] therapy / [place] Z79.899(ICD-10) Repository 06/27/2017 Unknown E11.9 - Type 2 Dominic, Active [place] diabetes mellitus [facility] without Hospital complications / Repository E11.9(ICD-10) PROCEDURES PROCEDURES No Procedure Records FoundRESULTS RESULTS LOWER EXT ARTERIAL Observed: 01/26/2018 Status: F Source: [place] STUDY 10:32 PM [facility] REPOSITORY [facility] Cardiovascular Services [address] [place] [address] 01/26/18 2223 MR#: [id number] Acct: [id number] Name: ANNETTE COMBS Rep #: [id number] : 1950 67 From: Jacob Kelly MD Attending Dr: Joyce Morales DPM Status: REG CLI Ordering Dr: Date: 01/26/18 Location: [facility] Sex: F C Admitted: Arterial Study - Arterial Study Arterial Study: This is a 67-year-old female with a history of diabetes mellitus and hyperlipidemia. The patient presents with pain and paresthesias in her left foot suggestive of atherosclerotic peripheral arterial occlusive disease. She is brought to the noninvasive vascular laboratory at this time for the purpose of bilateral noninvasive lower extremity arterial assessment. Doppler signal assessment was used to evaluate the pulses at ankle level bilaterally. The posterior tibial and dorsalis pedis pulses were triphasic bilaterally. Segmental limb pressures were obtained bilaterally. The right ankle pressure, as determined by posterior tibial pulse, was measured at 157 mmHg. The right ankle pressure, as determined by dorsalis pedis pulse, was measured at 170 mmHg. The right digital pressure was measured at 112 mmHg. The left ankle pressure, as determined by posterior tibial and dorsalis pedis pulses, could not be determined due to the noncompressibility of the vasculature. The left digital pressure was measured at 128 mmHg. Pulse volume recordings were obtained bilaterally and segmentally. Waveform amplitudes appeared to be satisfactory at all levels bilaterally, though the left digital waveform amplitude was slightly diminished. Resting ankle brachial indices were calculated bilaterally. The resting right ankle brachial index was calculated to be 1.24. The resting left ankle brachial index could not be calculated due to the noncompressibility of the vasculature. Digital-brachial indices were calculated bilaterally. The right digital-brachial index was calculated to be 0.82. The left digital-brachial index was calculated to be 0.93. Impression: Based upon the findings of this resting noninvasive lower extremity arterial study, there is no evidence of significant atherosclerotic peripheral arterial occlusive disease in the lower extremities bilaterally. Triphasic waveforms are noted at ankle level bilaterally. The resting right ankle brachial index is normal. The resting left ankle brachial index could not be calculated due to the noncompressibility of the vasculature, suggestive of arterial calcification. In this regard, clinical correlation is advised. Digital-brachial indices are bilaterally normal. 01/26/182231 <Electronically signed by Jacob Kelly MD> Date Jacob Kelly MD CC: JESSICA Morales; Bernardo Alfaro MD Date Dictated: 01/26/182222 Date Transcribed: 01/26/182222 Instructor Watch Assembly: ANNA Magaña PROTHROMBIN TIME W/INR Collected: 01/16/2018 Status: F Source: [place] [facility] 6:28 AM [facility] REPOSITORY TYPE CODE TESTS RESULT OUT OF RANGE REFERENCE UNITS LAB L300.4150 11.7-14.9 SECONDS High PROTIME 26.3 LAB L300.4200 Normal INR 2.4 Performed By: #### L300.3900 #### [facility] [address] [place], [address] PROTHROMBIN TIME W/INR Collected: 12/30/2017 Status: F Source: [place] [facility] 11:02 AM [facility] REPOSITORY TYPE CODE TESTS RESULT OUT OF RANGE REFERENCE UNITS LAB L300.4150 11.7-14.9 SECONDS High PROTIME 27.8 LAB L300.4200 Normal INR 2.6 Performed By: #### L300.3900 #### [facility] [address] [place], [address] PROGRESS Observed: 12/18/2017 Status: COMPLETED Source: [place] 9:03 AM [facility] REPOSITORY HNO ID: [id number] Author: Bernardo Alfaro Service: (none) Author Type: Physician Type: Progress Notes Filed: 12/18/2017 10:26 AM Note Text: This note was created using Gumiyoriter. Subjective Patient presents with: Imm/Inj: Flu Vaccine Physical Annette Combs was here for an annual physical. Her chronic conditions were stable. She was now seeing Dr. Roman in [place] for pain management. She continued to see Dr. Almendarez for urology. Review of Systems Constitutional: Negative. HENT: Positive for ear pain and tinnitus. Intermittent Eyes: Negative. Respiratory: Negative. Cardiovascular: Negative. Gastrointestinal: Negative. Genitourinary: Positive for urgency. Chronic urine incontinence. Musculoskeletal: Positive for back pain. Negative for myalgias and neck pain. Left foot pain. Skin: Negative. Neurological: Positive for numbness. Negative for dizziness, tremors, facial asymmetry, weakness, light-headedness and headaches. Hands tingle with certain activities. Hematological: Negative. Psychiatric/Behavioral: Negative for dysphoric mood and sleep disturbance. The patient is not nervous/anxious. PAST MEDICAL HISTORY Diagnosis Date - Acute, but ill-defined, cerebrovascular disease 1989 - Allergic rhinitis, cause unspecified Allergic rhinitis - Anal and rectal polyp FIBROPLASTIC - Anemia, unspecified - Cognitive impairment 04/10/2017 - Colitis, collagenous 09/03/2011 - Degenerative joint disease of right knee 10/19/2010 - Degenerative lumbar spinal stenosis - Generalized osteoarthrosis, unspecified site - KNEE JOINT REPLACEMENT STATUS 09/02/2006 - Left foot drop 01/05/2011 - 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 Almendarez - Nontraumatic rupture of patellar tendon 07/2007 sugical repair 07/29/[address] Devries - Other and unspecified hyperlipidemia 06/20/2012 - Other pulmonary embolism and infarction 10/30/2006 - Postlaminectomy syndrome 02/01/2016 - Postmenopausal atrophic vaginitis 06/27/2016 - Scoliosis Xray from [facility] 08/03/11 showed; also has narrowing L3-L4 and L4- L5; DJD L3, L4, L5; slight anterior displacement L4 on L5. - Symptomatic menopausal or female climacteric states - Unspecified asthma(493.90) - Unspecified hemorrhoids without mention of complication Hemorrhoids - Urge incontinence 02/01/2005 - VENOUS THROMBOSIS LOWER EXTREMITY NOS 10/30/2006 Post op left knee arthroscopy; ?PE at that time PAST SURGICAL HISTORY Procedure Laterality Date - DELIVERY ONLY 1988 , low cervical - COLONOSCOPY 03/25/01 R Cebul - hyperplastic polyp - COLONOSCOPY W/BX 05/17/11 repeat - EGD W/O BRSH SPECIMEN W/BX 05/17/11 - FILTER PLACEMENT (VENA CAVA) 11-03-12 - HEMORRHOIDECT INTER/EXTER SIMP 03/27/01 - KNEE SCOPE,DIAGNOSTIC Left 05/10/2003 Arthroscopy, knee Left - L'SCOPE DX W/WO BRUSHINGS/WASHINGS 1999 Laparoscopy - LAMINECTOMY,LUMBAR 1994 Back surgery - LAMINECTOMY,LUMBAR 11/05/2012 Laminectomy, lumbar - LIGATE FALLOPIAN TUBE 1988 Tubal ligation - OPEN RX ANKLE DISLOCATN+FIXATN 1986 ORIF Ankle - PAST SURGICAL HISTORY OF 2003 Thumb bilateral - PAST SURGICAL HISTORY OF Left 07/2006 partial knee replacement left - PAST SURGICAL HISTORY OF Right 2008 repair knee cap - PAST SURGICAL HISTORY OF 03/26/2014 transurethral resection of bladder lesion. vaginal sling. Dr. Almendarez - REMOVAL OF OVARY/TUBE(S) 1999 Salpingo-oophorectomy bilateral - RETRIEV INTRAVASC FOREGN BODY 01/30/13 filter removal - TOTAL ABDOM HYSTERECTOMY 1999 AANDP REPAIR hyst for benign reason - TOTAL KNEE REPLACEMENT Right 2009 right knee replacement FAMILY HISTORY Problem Relation Age of Onset - Blood Disease Mother blood clot, coumadin - Hypertension Mother - Coronary Artery Disease Mother 84 - Cancer Father poss bladder - Prostate Cancer Father - Breast Cancer Sister 64 - None Sister - None Sister - Diabetes Paternal Grandmother - Colon Cancer Paternal Grandmother - Stroke Paternal Grandfather - Diabetes Paternal Grandfather - Cancer Maternal Grandfather LEUKEMIA - Cancer Maternal Uncle - Psychiatry Sister anxiety Social History Marital status: Spouse name: Dot Years of education: 12 Number of children: 3 Occupational History 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 Feels safe. Uses cane. Drives. ALLERGIES Allergen Reactions - Chlorhexidine Itching - Cotton Other: See Comments eyes become red and headache - Darvon [Propoxyphen* Mental Status Change - Feathers Other: See Comments eyes become red and headache - Grass Pollen Itching - Morphine Mental Status Change - Vinegar Other: See Comments eyes become red and headache - Wool Other: See Comments eyes become red and headache Current Outpatient Prescriptions: Blood-Glucose Meter (TRUE METRIX GLUCOSE METER) misc Use daily as directed. Dx: E11.8 Insulin: No blood sugar diagnostic (TRUE METRIX GLUCOSE TEST STRIP) test strip Test 2 times daily Dx: E11.8 Insulin: No Estradiol (YUVAFEM) 10 mcg tab vaginal tablet Use 1 tablet vaginally every Saturday and Saturday. Levocetirizine 5 mg tablet take 1 tablet by mouth once daily ferrous sulfate 325 mg (65 mg iron) tablet Take 325 mg by mouth daily with breakfast. omeprazole (PRILOSEC) 20 mg capsule TAKE ONE CAPSULE BY MOUTH DAILY 1/2 HOUR BEFORE BREAKFAST metFORMIN (GLUCOPHAGE) 500 mg tablet take 1 tablet by mouth every morning WITH BREAKFAST COMPOUNDED PRESCRIPTION Sitz bath simvastatin (ZOCOR) 20 mg tablet take 1 tablet by mouth at bedtime gabapentin (NEURONTIN) 800 mg tablet Take 1 tablet by mouth three times daily. warfarin (COUMADIN) 5 mg tablet Take 1 tablet by mouth daily as directed. fluticasone-salmeterol (ADVAIR DISKUS) 100-50 mcg/dose dsdv Inhale 1 Puff as instructed twice daily. as directed Lancets lancets Test blood sugar(s) 2 times daily. Dx: Type 2 DM - Uncontrolled E11.9 Insulin: No traMADol (ULTRAM) 50 mg tablet Take 1 tablet by mouth twice daily as needed for Pain. ASCORBIC ACID/BIOFLAVONOIDS (MELANIE C ORAL) Take 1 tablet by mouth once daily. oxybutynin XL (DITROPAN XL) 10 mg 24 hr tablet Take 1 tablet by mouth once daily. albuterol HFA (PROVENTIL HFA) 90 mcg/actuation inhaler Inhale 2 Puffs as instructed every 4 hours as needed for Wheezing/Shortness of Breath. MAY GIVE AVAILABLE EQUIVALENT ALBUTEROL HFA INHALER Calcium-Cholecalciferol, D3, (CALCIUM 500 + D, D3,) 500-125 mg-unit ORAL Tab Take two(2) tablets twice daily. [place]-3 Fatty Acids-Vitamin E (FISH OIL) 1,000 mg ORAL Cap Take 3 pills once daily (?dose) THERAPEUTIC MULTIVITAMIN ORAL TAB Take one(1) tablet daily. No current facility-administered medications for this visit. Objective BP 110/64 (BP Site: Left Arm, BP Position: Sitting, BP Cuff Size: Regular Adult) Pulse 95 Temp 36.6 ?C (97.9 ?F) (Tympanic) Resp 16 Ht 162.5 cm (5' 3.98) Wt 78 kg (172 lb) SpO2 95% BMI 29.55 kg/m? Physical Exam Constitutional: She is oriented to person, place, and time. She appears well-nourished. No distress. HENT: Head: Normocephalic. Right Ear: External ear normal. Left Ear: External ear normal. Nose: Nose normal. Mouth/Throat: Oropharynx is clear and moist. Eyes: Pupils are equal, round, and reactive to light. Conjunctivae and EOM are normal. Neck: Normal carotid pulses and no JVD present. Carotid bruit is not present. No thyromegaly present. Cardiovascular: Normal rate, regular rhythm, normal heart sounds and intact distal pulses. Exam reveals no gallop. No murmur heard. Pulmonary/Chest: Breath sounds normal. She has no wheezes. She has no rales. Abdominal: Soft. She exhibits no mass. There is no tenderness. Musculoskeletal: Normal range of motion. She exhibits deformity. She exhibits no edema or tenderness. Left distal leg with mild atrophy. Left foot drop. AFO in place. Lymphadenopathy: She has no cervical adenopathy. Neurological: She is alert and oriented to person, place, and time. She displays normal reflexes. No cranial nerve deficit. Gait abnormal. Assessment and Plan 1. Routine general medical examination at a health care facility - ICD9: V70.0, ICD10: Z00.00 (primary diagnosis) - Recommended regular aerobic exercise. - Discussed need and benefit for weight loss. BMI 29.55 kg/(m2) - Vaccination(s) recommended today of Influenza, Pneumovax and Shingrix 2. Need for vaccination - ICD9: V05.9, ICD10: Z23 - INFLUENZA SEASONAL HIGH DOSE AGE 65+ - PNEUMOCOCCAL IMMUNIZATION PPSV 23 3. Degenerative lumbar spinal stenosis - ICD9: 724.02, ICD10: M48.061 Noted medications from pain management. - TRAMADOL 50 MG TABLET 4. Spondylolisthesis of lumbar region - ICD9: 738.4, ICD10: M43.16 - TRAMADOL 50 MG TABLET 5. Chronic deep vein thrombosis (DVT) of proximal vein of both lower extremities (HCC) - ICD9: 453.51, ICD10: I82.5Y3 Refilled. - WARFARIN 5 MG TABLET 6. Uncomplicated asthma, unspecified asthma severity, unspecified whether persistent - ICD9: 493.90, ICD10: J45.909 Stable. - Continue current meds 7. Foot drop, left - ICD9: 736.79, ICD10: M21.372 Seeing [facility] for podiatry. AFO in place. 8. Hyperlipidemia, unspecified hyperlipidemia type - ICD9: 272.4, ICD10: E78.5 - fair control I have used a decision aid to share decision making with the patient about interventions to reduce the risk of coronary events. We estimated the patient's 10-year of atherosclerotic events at 11% and discussed how this risk could be reduced with the use of statins to 7%. After considering the patient's unique circumstances and the pros and cons of the alternatives, we have decided to increase her dose of simvastatin. - SIMVASTATIN 40 MG TABLET 9. Controlled type 2 diabetes mellitus with complication, without long-term current use of insulin ([facility]) - ICD9: 250.90, ICD10: E11.8 Controlled. - Continue current medications - Discussed diabetic education issues of importance of annual examinations with Opthalmology with patient. 10. CKD (chronic kidney disease) stage 3, GFR 30-59 ml/min ([facility]) - ICD9: 585.3, ICD10: N18.3 Stable. Risks reviewed. 11. Allergic rhinitis, unspecified seasonality, unspecified trigger - ICD9: 477.9, ICD10: J30.9 Controlled. Continue antihistamine. Refills are current. Bernardo Alfaro MD PROGRESS Observed: 12/18/2017 Status: COMPLETED Source: [place] 8:48 AM [facility] REPOSITORY HNO ID: [id number] Author: Jackie Malagon [facility] Service: (none) Author Type: (none) Type: Progress Notes Filed: 12/18/2017 10:26 AM Note Text: 67 year old female here for INACTIVATED INFLUENZA VACCINE. [id number] Season Patient is identified by name and date of : Yes [] CONTRAINDICATIONS color enhanced section Age less than 6 months? No Allergy to eggs, chicken, chicken feathers, or chicken dander? No Allergy to thimerosal (a preservative) or formaldehyde, gelatin? No History of severe reaction to any vaccine component or a previous dose of influenza vaccination? No History of Guillain-[place] Syndrome within 6 weeks after a previous influenza vaccine? No Patient is not moderately or severely ill? No Current temperature greater or equal to 100.4F? No History of Bone Marrow Transplant prior 6 months or solid organ transplant in the past 3 months ? No History of fainting after a prior injection or medical procedure? No- ? If patient has fainted in the past, the CDC recommends sitting or lying down for 15 minutes after the vaccination. [] VERIFICATION color enhanced section Was the answer Yes for any of the above contraindications? No contraindications present. Acceptable to proceed with vaccine. Patient/guardian agrees the above answers are true to the best of their knowledge? Yes Flu vaccine information sheet given? Yes See immunization activity in [facility] for details of immunizations adminstered today. Patient age: [age] year old For The 5441-7765 Flu Season 6-35 months old: Fluzone 0.25 ml - IM (Preservative Free) 3 years of age: Fluzone 0.5 ml - IM (Preservative Free) 3 years and older: Fluzone 0.5 ml- IM-(with Preservatives) 65+ years old: 2-49 years old Fluzone High-Dose 0.5 ml - IM (Preservative Free) FLUMIST- intranasal REMEMBER: If patient is less than 9 years of age and this is the first vaccine of Influenza to be received in any flu season, they should receive a second dose in one months time. CNOV Observed: 12/18/2017 Status: COMPLETED Source: IDANHA 8:40 AM [facility] REPOSITORY Office Visit (INTMWS) ANNETTE COMBS ([id number]) 1950 F Date Time Provider Department 12/18/17 8:40 AM BERNARDO ALFARO INTMWS During your visit today, we recorded the following information about you: Temperature Pulse Respiration Blood pressure 97.9 degrees 95/minute 16/minute 110/64 Weight Height 78 kg 1.625 m Jackie Malagon Cma 12/18/2017 10:26 AM Signed 67 year old female here for INACTIVATED INFLUENZA VACCINE. [id number] Season Patient is identified by name and date of : Yes [] CONTRAINDICATIONS color enhanced section Age less than 6 months? No Allergy to eggs, chicken, chicken feathers, or chicken dander? No Allergy to thimerosal (a preservative) or formaldehyde, gelatin? No History of severe reaction to any vaccine component or a previous dose of influenza vaccination? No History of Guillain-[place] Syndrome within 6 weeks after a previous influenza vaccine? No Patient is not moderately or severely ill? No Current temperature greater or equal to 100.4F? No History of Bone Marrow Transplant prior 6 months or solid organ transplant in the past 3 months ? No History of fainting after a prior injection or medical procedure? No- ? If patient has fainted in the past, the CDC recommends sitting or lying down for 15 minutes after the vaccination. [] VERIFICATION color enhanced section Was the answer Yes for any of the above contraindications? No contraindications present. Acceptable to proceed with vaccine. Patient/guardian agrees the above answers are true to the best of their knowledge? Yes Flu vaccine information sheet given? Yes See immunization activity in [facility] for details of immunizations adminstered today. Patient age: [age] year old For The 9441-3868 Flu Season 6-35 months old: Fluzone 0.25 ml - IM (Preservative Free) 3 years of age: Fluzone 0.5 ml - IM (Preservative Free) 3 years and older: Fluzone 0.5 ml- IM-(with Preservatives) 65+ years old: 2-49 years old Fluzone High-Dose 0.5 ml - IM (Preservative Free) FLUMIST- intranasal REMEMBER: If patient is less than 9 years of age and this is the first vaccine of Influenza to be received in any flu season, they should receive a second dose in one months time. Bernardo Alfaro MD 12/18/2017 10:26 AM Signed This note was created using Gumiyoriter. Subjective Patient presents with: Imm/Inj: Flu Vaccine Physical Annette Combs was here for an annual physical. Her chronic conditions were stable. She was now seeing Dr. Roman in [place] for pain management. She continued to see Dr. Amlendarez for urology. Review of Systems Constitutional: Negative. HENT: Positive for ear pain and tinnitus. Intermittent Eyes: Negative. Respiratory: Negative. Cardiovascular: Negative. Gastrointestinal: Negative. Genitourinary: Positive for urgency. Chronic urine incontinence. Musculoskeletal: Positive for back pain. Negative for myalgias and neck pain. Left foot pain. Skin: Negative. Neurological: Positive for numbness. Negative for dizziness, tremors, facial asymmetry, weakness, light-headedness and headaches. Hands tingle with certain activities. Hematological: Negative. Psychiatric/Behavioral: Negative for dysphoric mood and sleep disturbance. The patient is not nervous/anxious. PAST MEDICAL HISTORY Diagnosis Date - Acute, but ill-defined, cerebrovascular disease 1989 - Allergic rhinitis, cause unspecified Allergic rhinitis - Anal and rectal polyp FIBROPLASTIC - Anemia, unspecified - Cognitive impairment 04/10/2017 - Colitis, collagenous 09/03/2011 - Degenerative joint disease of right knee 10/19/2010 - Degenerative lumbar spinal stenosis - Generalized osteoarthrosis, unspecified site - KNEE JOINT REPLACEMENT STATUS 09/02/2006 - Left foot drop 01/05/2011 - 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 Almendarez - Nontraumatic rupture of patellar tendon 07/2007 sugical repair 07/29/[address] Devries - Other and unspecified hyperlipidemia 06/20/2012 - Other pulmonary embolism and infarction 10/30/2006 - Postlaminectomy syndrome 02/01/2016 - Postmenopausal atrophic vaginitis 06/27/2016 - Scoliosis Xray from [facility] 08/03/11 showed; also has narrowing L3-L4 and L4- L5; DJD L3, L4, L5; slight anterior displacement L4 on L5. - Symptomatic menopausal or female climacteric states - Unspecified asthma(493.90) - Unspecified hemorrhoids without mention of complication Hemorrhoids - Urge incontinence 02/01/2005 - VENOUS THROMBOSIS LOWER EXTREMITY NOS 10/30/2006 Post op left knee arthroscopy; ?PE at that time PAST SURGICAL HISTORY Procedure Laterality Date - DELIVERY ONLY 1988 , low cervical - COLONOSCOPY 03/25/01 R Cebul - hyperplastic polyp - COLONOSCOPY W/BX 05/17/11 repeat - EGD W/O [facility] SPECIMEN W/BX 05/17/11 - FILTER PLACEMENT (VENA CAVA) 11-03-12 - HEMORRHOIDECT INTER/EXTER SIMP 03/27/01 - KNEE SCOPE,DIAGNOSTIC Left 05/10/2003 Arthroscopy, knee Left - L'SCOPE DX W/WO BRUSHINGS/WASHINGS 1999 Laparoscopy - LAMINECTOMY,LUMBAR 1994 Back surgery - LAMINECTOMY,LUMBAR 11/05/2012 Laminectomy, lumbar - LIGATE FALLOPIAN TUBE 1988 Tubal ligation - OPEN RX ANKLE DISLOCATN+FIXATN 1986 ORIF Ankle - PAST SURGICAL HISTORY OF 2004 Thumb bilateral - PAST SURGICAL HISTORY OF Left 07/2006 partial knee replacement left - PAST SURGICAL HISTORY OF Right 2008 repair knee cap - PAST SURGICAL HISTORY OF 03/26/2014 transurethral resection of bladder lesion. vaginal sling. Dr. Almendarez - REMOVAL OF OVARY/TUBE(S) 1999 Salpingo-oophorectomy bilateral - RETRIEV INTRAVASC FOREGN BODY 01/30/13 filter removal - TOTAL ABDOM HYSTERECTOMY 1999 AANDP REPAIR hyst for benign reason - TOTAL KNEE REPLACEMENT Right 2009 right knee replacement FAMILY HISTORY Problem Relation Age of Onset - Blood Disease Mother blood clot, coumadin - Hypertension Mother - Coronary Artery Disease Mother 84 - Cancer Father poss bladder - Prostate Cancer Father - Breast Cancer Sister 64 - None Sister - None Sister - Diabetes Paternal Grandmother - Colon Cancer Paternal Grandmother - Stroke Paternal Grandfather - Diabetes Paternal Grandfather - Cancer Maternal Grandfather LEUKEMIA - Cancer Maternal Uncle - Psychiatry Sister anxiety Social History Marital status: Spouse name: Dot Years of education: 12 Number of children: 3 Occupational History 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 Feels safe. Uses cane. Drives. ALLERGIES Allergen Reactions - Chlorhexidine Itching - Cotton Other: See Comments eyes become red and headache - Darvon [Propoxyphen* Mental Status Change - Feathers Other: See Comments eyes become red and headache - Grass Pollen Itching - Morphine Mental Status Change - Vinegar Other: See Comments eyes become red and headache - Wool Other: See Comments eyes become red and headache Current Outpatient Prescriptions: Blood-Glucose Meter (TRUE METRIX GLUCOSE METER) misc Use daily as directed. Dx: E11.8 Insulin: No blood sugar diagnostic (TRUE METRIX GLUCOSE TEST STRIP) test strip Test 2 times daily Dx: E11.8 Insulin: No Estradiol (YUVAFEM) 10 mcg tab vaginal tablet Use 1 tablet vaginally every Saturday and Saturday. Levocetirizine 5 mg tablet take 1 tablet by mouth once daily ferrous sulfate 325 mg (65 mg iron) tablet Take 325 mg by mouth daily with breakfast. omeprazole (PRILOSEC) 20 mg capsule TAKE ONE CAPSULE BY MOUTH DAILY 1/2 HOUR BEFORE BREAKFAST metFORMIN (GLUCOPHAGE) 500 mg tablet take 1 tablet by mouth every morning WITH BREAKFAST COMPOUNDED PRESCRIPTION Sitz bath simvastatin (ZOCOR) 20 mg tablet take 1 tablet by mouth at bedtime gabapentin (NEURONTIN) 800 mg tablet Take 1 tablet by mouth three times daily. warfarin (COUMADIN) 5 mg tablet Take 1 tablet by mouth daily as directed. fluticasone-salmeterol (ADVAIR DISKUS) 100-50 mcg/dose dsdv Inhale 1 Puff as instructed twice daily. as directed Lancets lancets Test blood sugar(s) 2 times daily. Dx: Type 2 DM - Uncontrolled E11.9 Insulin: No traMADol (ULTRAM) 50 mg tablet Take 1 tablet by mouth twice daily as needed for Pain. ASCORBIC ACID/BIOFLAVONOIDS (MELANIE C ORAL) Take 1 tablet by mouth once daily. oxybutynin XL (DITROPAN XL) 10 mg 24 hr tablet Take 1 tablet by mouth once daily. albuterol HFA (PROVENTIL HFA) 90 mcg/actuation inhaler Inhale 2 Puffs as instructed every 4 hours as needed for Wheezing/Shortness of Breath. MAY GIVE AVAILABLE EQUIVALENT ALBUTEROL HFA INHALER Calcium-Cholecalciferol, D3, (CALCIUM 500 + D, D3,) 500-125 mg-unit ORAL Tab Take two(2) tablets twice daily. [place]-3 Fatty Acids-Vitamin E (FISH OIL) 1,000 mg ORAL Cap Take 3 pills once daily (?dose) THERAPEUTIC MULTIVITAMIN ORAL TAB Take one(1) tablet daily. No current facility-administered medications for this visit. Objective BP 110/64 (BP Site: Left Arm, BP Position: Sitting, BP Cuff Size: Regular Adult) Pulse 95 Temp 36.6 ?C (97.9 ?F) (Tympanic) Resp 16 Ht 162.5 cm (5' 3.98) Wt 78 kg (172 lb) SpO2 95% BMI 29.55 kg/m? Physical Exam Constitutional: She is oriented to person, place, and time. She appears well-nourished. No distress. HENT: Head: Normocephalic. Right Ear: External ear normal. Left Ear: External ear normal. Nose: Nose normal. Mouth/Throat: Oropharynx is clear and moist. Eyes: Pupils are equal, round, and reactive to light. Conjunctivae and EOM are normal. Neck: Normal carotid pulses and no JVD present. Carotid bruit is not present. No thyromegaly present. Cardiovascular: Normal rate, regular rhythm, normal heart sounds and intact distal pulses. Exam reveals no gallop. No murmur heard. Pulmonary/Chest: Breath sounds normal. She has no wheezes. She has no rales. Abdominal: Soft. She exhibits no mass. There is no tenderness. Musculoskeletal: Normal range of motion. She exhibits deformity. She exhibits no edema or tenderness. Left distal leg with mild atrophy. Left foot drop. AFO in place. Lymphadenopathy: She has no cervical adenopathy. Neurological: She is alert and oriented to person, place, and time. She displays normal reflexes. No cranial nerve deficit. Gait abnormal. Assessment and Plan 1. Routine general medical examination at a health care facility - ICD9: V70.0, ICD10: Z00.00 (primary diagnosis) - Recommended regular aerobic exercise. - Discussed need and benefit for weight loss. BMI 29.55 kg/(m2) - Vaccination(s) recommended today of Influenza, Pneumovax and Shingrix 2. Need for vaccination - ICD9: V05.9, ICD10: Z23 - INFLUENZA SEASONAL HIGH DOSE AGE 65+ - PNEUMOCOCCAL IMMUNIZATION PPSV 23 3. Degenerative lumbar spinal stenosis - ICD9: 724.02, ICD10: M48.061 Noted medications from pain management. - TRAMADOL 50 MG TABLET 4. Spondylolisthesis of lumbar region - ICD9: 738.4, ICD10: M43.16 - TRAMADOL 50 MG TABLET 5. Chronic deep vein thrombosis (DVT) of proximal vein of both lower extremities (HCC) - ICD9: 453.51, ICD10: I82.5Y3 Refilled. - WARFARIN 5 MG TABLET 6. Uncomplicated asthma, unspecified asthma severity, unspecified whether persistent - ICD9: 493.90, ICD10: J45.909 Stable. - Continue current meds 7. Foot drop, left - ICD9: 736.79, ICD10: M21.372 Seeing [facility] for podiatry. AFO in place. 8. Hyperlipidemia, unspecified hyperlipidemia type - ICD9: 272.4, ICD10: E78.5 - fair control I have used a decision aid to share decision making with the patient about interventions to reduce the risk of coronary events. We estimated the patient's 10-year of atherosclerotic events at 11% and discussed how this risk could be reduced with the use of statins to 7%. After considering the patient's unique circumstances and the pros and cons of the alternatives, we have decided to increase her dose of simvastatin. - SIMVASTATIN 40 MG TABLET 9. Controlled type 2 diabetes mellitus with complication, without long-term current use of insulin ([facility]) - ICD9: 250.90, ICD10: E11.8 Controlled. - Continue current medications - Discussed diabetic education issues of importance of annual examinations with Opthalmology with patient. 10. CKD (chronic kidney disease) stage 3, GFR 30-59 ml/min ([facility]) - ICD9: 585.3, ICD10: N18.3 Stable. Risks reviewed. 11. Allergic rhinitis, unspecified seasonality, unspecified trigger - ICD9: 477.9, ICD10: J30.9 Controlled. Continue antihistamine. Refills are current. MD Bernardo Hendrix MD 12/18/2017 9:44 AM Signed Recombinant shingles vaccine (Shingrix) is recommended; 2 doses 2-6 months apart. Please read information, check with your insurance, and call to schedule vaccination. You may also be directed to your local pharmacy. Referring Provider: BERNARDO ALFARO [[id number]] Allergies As of Date: 12/18/2017 Noted Allergy Reaction CHLORHEXIDINE 05/21/2013 9 - Itching COTTON 10/12/2004 14 - Other: See Comments Comments: eyes become red and headache DARVON (PROPOXYPHENE HCL) 04/20/2008 1 - Mental Status Change FEATHERS 10/12/2004 14 - Other: See Comments Comments: eyes become red and headache GRASS POLLEN 10/08/2012 9 - Itching MORPHINE 04/20/2008 1 - Mental Status Change VINEGAR 10/12/2004 14 - Other: See Comments Comments: eyes become red and headache WOOL 10/12/2004 14 - Other: See Comments Comments: eyes become red and headache Date Reviewed: 12/18/2017 Reviewed by: Jackie Malagon Elevator Service Technician - Fully Assessed Reason for Visit: Imm/Inj [58] Cmt: Flu Vaccine Physical [83] Reason For Visit History Recorded Primary Visit Diagnosis:Routine general medical examination at a health care facility [Z00.00] Other Visit Diagnoses:Need for vaccination [Z23] Degenerative lumbar spinal stenosis [M48.061] Spondylolisthesis of lumbar region [M43.16] Chronic deep vein thrombosis (DVT) of proximal vein of both lower extremities ([facility]) [I82.5Y3] Uncomplicated asthma, unspecified asthma severity, unspecified whether persistent [J45.909] Foot drop, left [M21.372] Hyperlipidemia, unspecified hyperlipidemia type [E78.5] Controlled type 2 diabetes mellitus with complication, without long-term current use of insulin ([facility]) [E11.8] CKD (chronic kidney disease) stage 3, GFR 30-59 ml/min ([facility]) [N18.3] Allergic rhinitis, unspecified seasonality, unspecified trigger [J30.9] Order(s):warfarin (COUMADIN) 5 mg tabletTake 1 tablet by mouth daily as directed.Disp: 45 tabletRfl: 5 INFLUENZA SEASONAL HIGH DOSE AGE 65+ [[id number]] Order #: [id number] simvastatin (ZOCOR) 40 mg tabletTake 1 tablet by mouth daily at bedtime. For cholesterols.Disp: 90 tabletRfl: 3 PNEUMOCOCCAL IMMUNIZATION PPSV 23 [[id number]] Order #: [id number] Prescriptions as of 12/18/2017 Sig: WARFARIN 5 MG TABLET Take 1 tablet by mouth daily * TRAMADOL 50 MG TABLET Take 1 tablet by mouth three * BLOOD-GLUCOSE METER Use daily as directed. Dx: E* BLOOD SUGAR DIAGNOSTIC STRIPS Test 2 times daily Dx: E11.8* ESTRADIOL 10 MCG VAGINAL TABL* Use 1 tablet vaginally every * LEVOCETIRIZINE 5 MG TABLET take 1 tablet by mouth once d* FERROUS SULFATE 325 MG (65 MG* Take 325 mg by mouth daily wi* OMEPRAZOLE 20 MG CAPSULE,AILYN* TAKE ONE CAPSULE BY MOUTH MIKE* METFORMIN 500 MG TABLET take 1 tablet by mouth every * COMPOUNDED PRESCRIPTION Sitz bath GABAPENTIN 800 MG TABLET Take 1 tablet by mouth three * FLUTICASONE 100 MCG-SALMETERO* Inhale 1 Puff as instructed t* LANCETS Test blood sugar(s) 2 times d* MELANIE C ORAL Take 1 tablet by mouth once d* OXYBUTYNIN CHLORIDE ER 10 MG * Take 1 tablet by mouth once d* ALBUTEROL SULFATE HFA 90 MCG/* Inhale 2 Puffs as instructed * CALCIUM CARBONATE 500 MG (1,2* Take two(2) tablets twice mike* OMEGA-3 FATTY ACIDS-VITAMIN E* Take 3 pills once daily (?dos* THERAPEUTIC MULTIVITAMIN TABL* Take one(1) tablet daily. SIMVASTATIN 40 MG TABLET Take 1 tablet by mouth daily * Problem List As Of Date 12/18/2017 Noted Resolved Unspecified tinnitus [H93.19] 03/11/2012 Allergic rhinitis [J30.9] GENERAL OSTEOARTHROSIS [M15.9] Carpal tunnel syndrome [G56.00] 03/11/2012 Dizziness and giddiness [R42] 03/11/2012 Contusion of unspecified part of trunk [S20.20X* 03/11/2012 Acute, but ill-defined, cerebrovascular disease* 03/11/2012 Other specified disorder of bladder [596.8] INVALID FOR*03/11/2012 Urge incontinence [N39.41] INVALID FOR*10/28/2014 Dermatophytosis of nail [B35.1] INVALID FOR*03/11/2012 Asthma [J45.909] BONE AND CARTILAGE DIS NOS [M89.9, M94.9] INVALID FOR* Other pulmonary embolism and infarction [I26.99] 03/11/2012 Knee joint replacement by other means [Z96.659] INVALID FOR*12/18/2017 Chronic deep vein thrombosis (DVT) of proximal *INVALID FOR* More... Symptomatic menopausal or female climacteric st*INVALID FOR*03/11/2012 Anxiety state, unspecified [F41.1] INVALID FOR*03/11/2012 Urgency of urination [R39.15] INVALID FOR*03/11/2012 Microscopic hematuria [R31.29] INVALID FOR*03/11/2012 Gross hematuria [R31.0] INVALID FOR*03/11/2012 DVT (deep venous thrombosis) [I82.409] INVALID FOR*03/11/2012 Osteoarthritis of basilar joint of thumb, left *INVALID FOR*03/11/2012 More... Degenerative joint disease of right knee [M17.1*INVALID FOR*03/11/2012 More... Lung nodule [R91.1] INVALID FOR*03/11/2012 More... Overlapping toe [M20.5X9] INVALID FOR*03/11/2012 More... Foot drop, left [M21.372] INVALID FOR* Other hammer toe (acquired) [M20.40] INVALID FOR*10/21/2013 Diarrhea [R19.7] INVALID FOR*03/11/2012 Anemia, unspecified [D64.9] INVALID FOR*03/11/2012 Dermatofibroma of right lower leg [D23.71] INVALID FOR*03/11/2012 Scar condition and fibrosis of skin [L90.5] INVALID FOR*03/11/2012 Other seborrheic keratosis [L82.1] INVALID FOR*03/11/2012 Melanocytic nevi of trunk: back [D22.5] INVALID FOR*10/28/2014 Other acne [L70.8] INVALID FOR*03/11/2012 Granuloma of hair follicle [L98.0] INVALID FOR*03/11/2012 Excoriation [T14.8XXA] INVALID FOR*03/11/2012 Actinic skin damage [L57.8] INVALID FOR*10/28/2014 Colitis, collagenous [K52.831] INVALID FOR*03/11/2012 Scoliosis [M41.9] 03/11/2012 More... Degenerative lumbar spinal stenosis [M48.061] INVALID FOR* More... 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 Mixed incontinence [N39.46] INVALID FOR* More... Spondylolisthesis of lumbar region [M43.16] INVALID FOR*11/08/2016 Gastroesophageal reflux disease [K21.9] INVALID FOR* Postlaminectomy syndrome [M96.1] INVALID FOR*12/18/2017 Postmenopausal atrophic vaginitis [N95.2] INVALID FOR* Controlled type 2 diabetes mellitus with compli*INVALID FOR* Cognitive impairment [R41.89] INVALID FOR* CKD (chronic kidney disease) stage 3, GFR 30-59*INVALID FOR* Pain in left foot [M79.672] INVALID FOR* Other instructions from your clinician: Recombinant shingles vaccine (Shingrix) is recommended; 2 doses 2-6 months apart. Please read information, check with your insurance, and call to schedule vaccination. You may also be directed to your local pharmacy. Prescriptions ordered this encounter Disp Refills Start End WARFARIN 5 MG TABLET 45 t* 5 12/18/2017 Route: ORAL Sig: Take 1 tablet by mouth daily as directed. SIMVASTATIN 40 MG TABLET 90 t* 3 12/18/2017 Route: ORAL Sig: Take 1 tablet by mouth daily at bedtime. For cholesterols. Medications Discontinued During This Encounter warfarin (COUMADIN) 5 mg tablet 45 t* 5 06/12/2017 12/18/2017 Route: ORAL Sig: Take 1 tablet by mouth daily as directed. Disc: Reason for discontinue is not on file. traMADol (ULTRAM) 50 mg tablet 06/30/2016 12/18/2017 Class: Historical Med Route: ORAL Sig: Take 1 tablet by mouth twice daily as needed for Pain. Disc: Reason for discontinue is not on file. simvastatin (ZOCOR) 20 mg tablet 90 t* 3 07/17/2017 12/18/2017 Sig: take 1 tablet by mouth at bedtime Disc: Dosage adjustment Disposition: Return in about 6 months (around 06/17/2018). Follow-up and Disposition History Recorded Encounter Status:Closed by BERNARDO ALFARO MD on 12/18/17 CBC Collected: 12/13/2017 Status: F Source: IDAN[facility] 7:42 AM [facility] TYPE CODE TESTS RESULT OUT OF REFERENCE UNITS RANGE LAB WBC 3.70-11.00 k/uL WBC 5.47 LAB RBC 3.90-5.20 m/uL RBC 4.12 LAB HGB 11.5-15.5 g/dL Hemoglobin 12.0 LAB HCT 36.0-46.0 % Hematocrit 38.7 LAB MCV 80.0-100.0 fL MCV 93.9 LAB MCH 26.0-34.0 pG MCH 29.1 LAB MCHC 30.5-36.0 g/dL MCHC 31.0 LAB RDWCV 11.5-15.0 % RDW-CV 13.5 LAB PLTCT 150-400 k/uL Platelet Count 227 LAB MPV 9.0-12.7 fL MPV 9.4 LAB ABSNUC <0.01 k/uL Absolute nRBC <0.01 Performed By: #### CBC #### [facility] [address] [place], [place] [address] PROTIME Collected: 12/13/2017 Status: F Source: IDAN[facility] 7:42 AM [facility] REPOSITORY TYPE CODE TESTS RESULT OUT OF RANGE REFERENCE UNITS LAB PSEC 9.7-13.0 sec High PT Sec 19.3 LAB INR 0.9-1.3 High PT INR 1.9 Result Comment: Vitamin K Antagonist (VKA) Therapeutic Range: INR 2 to 3 (Target INR of 2.5) Note: For patients treated with VKA drugs, such as warfarin, the [place] [employer] 2012 Guideline recommends a therapeutic INR range of 2 to 3 (target INR of 2.5). This recommendation includes high-risk patients with antiphospholipid syndrome with previous arterial or venous thromboembolism, current-generation mechanical or bioprosthetic aortic heart valve replacement. Note: Patients with mechanical aortic valve replacement and additional risk factors for thromboembolic events (atrial fibrillation, previous thromboembolism, LV dysfunction, hypercoagulable conditions) or an older generation mechanical AVR (i.e., ball in-Cage) or any mechanical MVR should have a INR therapeutic range of 2.5 to 3.5 (target INR of 3). Tien GH, et al. Chest 2012, 141:7S-47S Thomas RA, et al. [facility] 2017, 70: 252-289 Performed By: #### PT, BMP, LIPB, HBA1C #### [facility] [address] [place], [place] [address] BASIC METABOLIC PANL Collected: 12/13/2017 Status: F Source: IDANHA 7:42 AM [facility] REPOSITORY TYPE CODE TESTS RESULT OUT OF REFERENCE UNITS RANGE LAB GLU 74-99 mg/dL High Glucose 117 Result Comment: The [place] [employer] (ADA) provides guidance for cutoff values for fasting glucose and random glucose. The ADA defines fasting as no caloric intake for at least 8 hours. Fas ting plasma glucose results between 100 to 125 mg/dL indicate increased risk for diabetes (prediabetes). Fasting plasma glucose results greater than or equal to 126 mg/dL meet the criteria for diagnosis of diabetes. In the absence of unequivocal hyperglycemia, results should be confirmed by repeat testing. In a patient with classic symptoms of hyperglycemia or hyperglycemic crisis, random plasma glucose results greater than or equal to 200 mg/dL meet the criteria for diagnosis of diabetes. Reference: Standards of Medical Care in Diabetes 2016, [place] [employer]. Diabetes Care. 2016.39(Suppl 1). LAB BUN 7-21 mg/dL BUN High 33 LAB CRET 0.58-0.96 mg/dL Creatinine High 1.13 LAB NA 136-144 mmol/L Sodium High 146 LAB K 3.7-5.1 mmol/L Potassium 4.7 LAB CL 97-105 mmol/L Chloride 105 LAB CO2 22-30 mmol/L CO2 24 LAB AGAP 9-18 mmol/L Anion Gap 17 LAB CA 8.5-10.2 mg/dL Calcium, Total 10.1 LAB GFRAA eGFR- Amer. 58 LAB GFRNAA . eGFR-All Other Races 48 Result Comment: eGFR (Estimated GFR) Units of measure: mL/min/1.73 meters squared eGFR is derived from the reexpressed MDRD Study equation using the following parameters: serum creatinine, age, gender and race. The creatinine assay has been calibrated to be traceable to IDMS. An eGFR <60 mL/min/1.73m2 for >3 months is consistent with chronic kidney disease. Refer to KDOQI guidelines for clinical interpretation. In patients with unstable renal function, e.g. those with acute kidney injury, the eGFR may not accurately reflect actual GFR. Performed By: #### PT, BMP, LIPB, HBA1C #### [facility] [address] [place] [id number] LIPID PANEL, BASIC Collected: 12/13/2017 Status: F Source: [place] 7:42 AM [facility] REPOSITORY TYPE CODE TESTS RESULT OUT OF REFERENCE UNITS RANGE LAB CHOL <200 mg/dL Cholesterol 199 Result Comment: <200 mg/dL, Desirable 200-239 mg/dL, Borderline high >239 mg/dL, High LAB TRIGLY <150 mg/dL Triglyceride High 171 Result Comment: <150 mg/dL, Normal 150-199 mg/dL, Borderline high 200-499 mg/dL, High >499 mg/dL, Very high LAB HDL >39 mg/dL HDL-Cholesterol Low 38 Result Comment: 40-59 mg/dL, Acceptable >59 mg/dL, High: Negative risk factor for coronary heart disease <40 mg/dL, Low: Positive risk factor for coronary heart disease LAB LDL <100 mg/dL LDL-Cholesterol High 127 Result Comment: <100 mg/dL, Optimal 100-129 mg/dL, Near optimal/above optimal 130-159 mg/dL, Borderline high 160-189 mg/dL, High >189 mg/dL, Very high Secondary prevention optimal LDL Cholesterol levels are recommended to be < 70 mg/dL LAB NONHDL <130 mg/dL Non HDL High Cholesterol 161 Result Comment: <130 mg/dL, Optimal 130-159 mg/dL, Near optimal/above optimal 160-189 mg/dL, Borderline high 190-219 mg/dL, High >219 mg/dL, Very high Secondary prevention optimal non HDL Cholesterol levels are recommended to be < 100 mg/dL LAB FT hrs Fasting Time 8 LAB VLDL <30 mg/dL High VLDL Cholesterol 34 LAB TCHDL <5.10 High TC:HDL Ratio 5.24 LAB LDLHDL <2.54 High LDL:HDL Ratio 3.34 Result Comment: Reference: 1. National Cholesterol Education Program ATP III Guideline At-A-Glance Quick Desk Reference: National Heart, Lung, and Blood [place]. National Institutes of Health. 2001: NIH Publication No. 01-3305. 2. An International Atherosclerosis Society position paper: global recommendations for the management of dyslipidemia: executive summary, Atherosclerosis. 2014: 232(2):410-413. Performed By: #### PT, BMP, LIPB, HBA1C #### [facility] [address] [place] [id number] HEMOGLOBIN A1C Collected: 12/13/2017 Status: F Source: IDAN[place] 7:42 AM [facility] REPOSITORY TYPE CODE TESTS RESULT OUT OF REFERENCE UNITS RANGE LAB HGBA1C 4.3-5.6 % High Hemoglobin A1c 6.4 LAB HBA0 mg/dL Est. Average Glucose 137 Result Comment: eAG: (Estimated average glucose) is a calculated value from HgbA1c and is outside medical 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 of the average blood glucose level in the last 2-3 month period. Performed By: #### PT, BMP, LIPB, HBA1C #### [facility] [address] [place] [id number] JEANINEUTRDERICKCH Observed: 12/03/2017 Status: COMPLETED Source: [place]AN[place] 12:00 AM [facility] REPOSITORY Patient Outreach (FAMPST) ANNETTE COMBS ([id number]) 1950 F Date Time Provider Department 12/03/17 BERNARDO ALFARO FAMPST During your visit today, we recorded the following information about you: Allergies As of Date: 12/03/2017 Noted Allergy Reaction CHLORHEXIDINE 05/21/2013 9 - Itching COTTON 10/12/2004 14 - Other: See Comments Comments: eyes become red and headache DARVON (PROPOXYPHENE HCL) 04/20/2008 1 - Mental Status Change FEATHERS 10/12/2004 14 - Other: See Comments Comments: eyes become red and headache GRASS POLLEN 10/08/2012 9 - Itching MORPHINE 04/20/2008 1 - Mental Status Change VINEGAR 10/12/2004 14 - Other: See Comments Comments: eyes become red and headache WOOL 10/12/2004 14 - Other: See Comments Comments: eyes become red and headache Date Reviewed: 10/25/2017 Reviewed by: Argelia Thomson - Fully Assessed Visit Diagnosis:Medication management [Z79.899] Order(s):[facility] [[facility]] Order #: [id number] FUTURE Prescriptions as of 12/03/2017 Sig: ESTRADIOL 10 MCG VAGINAL TABL* Use 1 tablet vaginally every * LEVOCETIRIZINE 5 MG TABLET take 1 tablet by mouth once d* FERROUS SULFATE 325 MG (65 MG* Take 325 mg by mouth daily wi* OMEPRAZOLE 20 MG CAPSULE,AILYN* TAKE ONE CAPSULE BY MOUTH MIKE* METFORMIN 500 MG TABLET take 1 tablet by mouth every * COMPOUNDED PRESCRIPTION Sitz bath X SIMVASTATIN 20 MG TABLET take 1 tablet by mouth at bed* GABAPENTIN 800 MG TABLET Take 1 tablet by mouth three * X WARFARIN 5 MG TABLET Take 1 tablet by mouth daily * FLUTICASONE 100 MCG-SALMETERO* Inhale 1 Puff as instructed t* LANCETS Test blood sugar(s) 2 times d* X BLOOD-GLUCOSE METER KIT Glucose Meter of Choice - Kit* X BLOOD SUGAR DIAGNOSTIC STRIPS Test blood sugar(s) 2 times d* X TRAMADOL 50 MG TABLET Take 1 tablet by mouth twice * MELANIE C ORAL Take 1 tablet by mouth once d* OXYBUTYNIN CHLORIDE ER 10 MG * Take 1 tablet by mouth once d* ALBUTEROL SULFATE HFA 90 MCG/* Inhale 2 Puffs as instructed * CALCIUM CARBONATE 500 MG (1,2* Take two(2) tablets twice mike* OMEGA-3 FATTY ACIDS-VITAMIN E* Take 3 pills once daily (?dos* THERAPEUTIC MULTIVITAMIN TABL* Take one(1) tablet daily. Problem List As Of Date 12/03/2017 Noted Resolved Unspecified tinnitus [H93.19] 03/11/2012 Allergic rhinitis, cause unspecified [J30.9] GENERAL OSTEOARTHROSIS [M15.9] Carpal tunnel syndrome [G56.00] 03/11/2012 Dizziness and giddiness [R42] 03/11/2012 Contusion of unspecified part of trunk [S20.20X* 03/11/2012 Acute, but ill-defined, cerebrovascular disease* 03/11/2012 Other specified disorder of bladder [596.8] INVALID FOR*03/11/2012 Urge incontinence [N39.41] INVALID FOR*10/28/2014 Dermatophytosis of nail [B35.1] INVALID FOR*03/11/2012 Asthma [J45.909] BONE AND CARTILAGE DIS NOS [M89.9, M94.9] INVALID FOR* Other pulmonary embolism and infarction [I26.99] 03/11/2012 KNEE JOINT REPLACEMENT STATUS [Z96.659] INVALID FOR* Chronic deep vein thrombosis (DVT) of proximal *INVALID FOR* More... Symptomatic menopausal or female climacteric st*INVALID FOR*03/11/2012 Anxiety state, unspecified [F41.1] INVALID FOR*03/11/2012 Urgency of urination [R39.15] INVALID FOR*03/11/2012 Microscopic hematuria [R31.29] INVALID FOR*03/11/2012 Gross hematuria [R31.0] INVALID FOR*03/11/2012 DVT (deep venous thrombosis) [I82.409] INVALID FOR*03/11/2012 Osteoarthritis of basilar joint of thumb, left *INVALID FOR*03/11/2012 More... Degenerative joint disease of right knee [M17.1*INVALID FOR*03/11/2012 More... Lung nodule [R91.1] INVALID FOR*03/11/2012 More... Overlapping toe [M20.5X9] INVALID FOR*03/11/2012 More... Foot drop, left [M21.372] INVALID FOR* Other hammer toe (acquired) [M20.40] INVALID FOR*10/21/2013 Diarrhea [R19.7] INVALID FOR*03/11/2012 Anemia, unspecified [D64.9] INVALID FOR*03/11/2012 Dermatofibroma of right lower leg [D23.71] INVALID FOR*03/11/2012 Scar condition and fibrosis of skin [L90.5] INVALID FOR*03/11/2012 Other seborrheic keratosis [L82.1] INVALID FOR*03/11/2012 Melanocytic nevi of trunk: back [D22.5] INVALID FOR*10/28/2014 Other acne [L70.8] INVALID FOR*03/11/2012 Granuloma of hair follicle [L98.0] INVALID FOR*03/11/2012 Excoriation [T14.8XXA] INVALID FOR*03/11/2012 Actinic skin damage [L57.8] INVALID FOR*10/28/2014 Colitis, collagenous [K52.831] INVALID FOR*03/11/2012 Scoliosis [M41.9] 03/11/2012 More... Degenerative lumbar spinal stenosis [M48.061] INVALID FOR* More... 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 Mixed incontinence [N39.46] INVALID FOR* More... Spondylolisthesis of lumbar region [M43.16] INVALID FOR*11/08/2016 Gastroesophageal reflux disease [K21.9] INVALID FOR* Postlaminectomy syndrome [M96.1] INVALID FOR* Postmenopausal atrophic vaginitis [N95.2] INVALID FOR* Controlled type 2 diabetes mellitus with compli*INVALID FOR* Cognitive impairment [R41.89] INVALID FOR* CKD (chronic kidney disease) stage 3, GFR 30-59*INVALID FOR* Pain in left foot [M79.672] INVALID FOR* Encounter Status:Closed by EPIC, PRODUSER on 01/03/18 PROTHROMBIN TIME W/INR Collected: 11/21/2017 Status: F Source: [place] 6:35 AM [facility] REPOSITORY TYPE CODE TESTS RESULT OUT OF RANGE REFERENCE UNITS LAB L300.4150 11.7-14.9 SECONDS High PROTIME 27.4 LAB L300.4200 Normal INR 2.5 Performed By: #### L300.3900 #### [facility] [place], [address] Observed: 2017 Status: F Source: [place] CULTURE, URINE 8:45 AM [facility] REPOSITORY Urine Culture ORGANISM 1: Klebsiella pneumoniae sp pneum [place] Count >100,000 Klebsiella pneumoniae sp pneum: REACTION Amoxacillin/Clavulanic Acid $ <=2 S Ampicillin $ 16 R Ampicillin/Sulbactam $ 4 S Cefazolin $ <=4 S Cefepime $ <=1 S Ceftriaxone $ <=1 S Ciprofloxacin $ <=0.25 S ESBL - Ertapenim $$$ <=0.5 S Gentamicin $ <=1 S Imipenem *NF <=0.25 S Levofloxacin $ <=0.12 S Nitrofurantoin $ <=16 S Piperacillin/Tazobactam $$ <=4 S Tobramycin $ <=1 S Trimethoprim/Sulfametho $ <=20 S (NF) indicates non-formulary drug at [facility]. Approval by Infectious Disease Specialist required before non-formulary drugs may be ordered and/or dispensed. Performed By: #### M100.0650 #### [facility] [address] [place], [address] PM DRUG SCR CON Collected: 11/15/2017 Status: F Source: [facility] 2:43 PM [facility] REPOSITORY TYPE CODE TESTS RESULT OUT OF REFERENCE UNITS RANGE LAB L600.6000 Dlyzbr=043 NG/ML 1 AMPHETAMINE Normal NEGATIVE LAB L600.6000 Pezusi=241 NG/ML 6 BARBITURATES Normal NEGATIVE LAB L600.6001 Xmxqhr=712 NG/ML 1 BENZODIAZEPINES Normal NEGATIVE LAB L600.6001 Cutoff=20 NG/ML 6 BURPRENORPHINE Normal NEGATIVE LAB L600.6002 Hsgdex=554 NG/ML 1 COCAINE Normal NEGATIVE LAB L600.6002 Cutoff=50 NG/ML 6 THC Normal NEGATIVE LAB L600.6003 Izomwa=000 NG/ML 6 MTD Normal NEGATIVE LAB L600.6004 Gaubjg=528 NG/ML 6 OPIATES CLARITY Normal NEGATIVE LAB L600.6005 Dgcfhb=976 NG/ML 1 OXYCODONE CL Normal NEGATIVE LAB L600.6005 Cutoff=25 NG/ML 6 PHENCYCLIDINE Normal NEGATIVE LAB L600.6007 4.9-9 2 URINE PH Normal 7.3 LAB L600.6007 20-300 MG/DL 6 URINE CREATININ Normal 41.3 LAB L600.6008 1.003-1.035 1 SPECIFIC GRAVIT Normal 1.010 LAB L600.6009 Cutoff=50 NG/ML 1 AMPH CL CONFIRM Normal NEGATIVE LAB L600.6009 Cutoff=50 NG/ML 6 METH CL CONFIRM Normal NEGATIVE LAB L600.6010 Cutoff=20 NG/ML 1 RITALIN CL CONF Normal NEGATIVE LAB L600.6011 Ytgqeb=118 NG/ML 1 CIPRIANO CONFIRM CL Normal POSITIVE LAB L600.6011 Cdpmsn=447 NG/ML 6 PREGABA CONF CL Normal NEGATIVE LAB L600.6012 Cutoff=40 NG/ML 6 DULOXETINE CONF Normal NEGATIVE LAB L600.6013 Cutoff=40 NG/ML 1 FLUOXETINE CONF Normal NEGATIVE LAB L600.6013 Cutoff=40 NG/ML 6 PAROX CONF CL Normal NEGATIVE LAB L600.6014 Cutoff=40 NG/ML 1 VENLA CONF CL Normal NEGATIVE LAB L600.6014 Cutoff=40 NG/ML 6 QUE CONFIRM CL Normal NEGATIVE LAB L600.6015 Cutoff=40 NG/ML 1 SER CONFIRM CL Normal NEGATIVE LAB L600.6015 Cutoff=50 NG/ML 6 TRAZ CONFIRM CL Normal NEGATIVE LAB L600.6016 Cutoff=40 NG/ML 1 NORTRIP CONF CL Normal NEGATIVE LAB L600.6017 Cutoff=40 NG/ML 1 DOXEPIN CONF CL Normal NEGATIVE LAB L600.6018 Cutoff=40 NG/ML 1 AMITRIP CONF CL Normal NEGATIVE LAB L600.6019 Fyqcxf=520 NG/ML 1 PENTOB CONF CL Normal NEGATIVE LAB L600.6019 Qhtyqo=782 NG/ML 6 BUTALB CONF CL Normal NEGATIVE LAB L600.60 Kqgqbm=169 NG/ML 8 SECOBARBITAL CO Normal NEGATIVE LAB L600.6020 Cttrqo=149 NG/ML 1 PHENOB CONF CL Normal NEGATIVE LAB L600.60 Cutoff=40 NG/ML 6 ALP CONF CL Normal NEGATIVE LAB L600.60 Cutoff=40 NG/ML 1 ALPHA-H CONF CL Normal NEGATIVE LAB L600.60 Cutoff=40 NG/ML 6 7-ACLON CONF CL Normal NEGATIVE LAB L600.6023 Cutoff=40 NG/ML 1 LORAZ CONF CL Normal NEGATIVE LAB L600.60 Cutoff=40 NG/ML 6 TALON CONF CL Normal NEGATIVE LAB L6.6024 Cutoff=40 NG/ML 1 OXAZ CONF CL Normal NEGATIVE LAB L600.6024 Cutoff=40 NG/ML 6 TEMAZEP CONF CL Normal NEGATIVE LAB L600.60 Cutoff=40 NG/ML 1 CLONAZ CONF CL Normal NEGATIVE LAB L6.60 Cutoff=40 NG/ML 6 BOWMAN CONF CL Normal NEGATIVE LAB L6.60 Cutoff=40 NG/ML 1 FLUNITR CONF CL Normal NEGATIVE LAB L600.60 Cutoff=40 NG/ML 6 MIDAZ CONF CL Normal NEGATIVE LAB L600.60 Cutoff=40 NG/ML 1 TRIAZ CONF CL Normal NEGATIVE LAB L600.6028 Rmeluw=214 NG/ML 1 ETG CONF CL Normal NEGATIVE LAB L600.60 Tgpawu=175 NG/ML 6 ETS CONF CL Normal NEGATIVE LAB L600.60 Cutoff=5 NG/ML 6 6-DANAY CONF CL Normal NEGATIVE LAB L600.60 Cutoff=40 NG/ML 1 BENZOYL CONF CL Normal NEGATIVE LAB L600.6030 Cutoff=10 NG/ML 6 KETAMINE CONFIR Normal NEGATIVE LAB L600.6031 Cutoff=50 NG/ML 1 MDA CONFIRM CL Normal NEGATIVE LAB L600.6032 Cutoff=50 NG/ML 1 MDMA CONFIRM CL Normal NEGATIVE LAB L600.6032 Cutoff=10 NG/ML 6 PCP CONFIRM CL Normal NEGATIVE LAB L600.6033 Cutoff=10 NG/ML 1 MITRAG CONF CL Normal NEGATIVE LAB L600.6033 Cutoff=10 NG/ML 6 NORKET CONF CL Normal NEGATIVE LAB L600.6033 Cutoff=10 NG/ML 8 ALPHA-PVP CONF Normal NEGATIVE LAB L600.6034 Cutoff=50 NG/ML 6 CARISOP CONF CL Normal NEGATIVE LAB L600.6035 Cutoff=40 NG/ML 1 CYCLOB CONF CL Normal NEGATIVE LAB L600.6035 Cutoff=50 NG/ML 6 MEPROB CONF CL Normal NEGATIVE LAB L600.6037 Cutoff=10 NG/ML 1 ZOLPID CONF CL Normal NEGATIVE LAB L600.6037 Cutoff=10 NG/ML 6 CARBOXY CONF CL Normal NEGATIVE LAB L600.6038 Cutoff=50 NG/ML 6 O-DESM CONF CL Normal POSITIVE LAB L600.6039 Cutoff=50 NG/ML 1 TAPENTADOL CONF Normal NEGATIVE LAB L600.6039 Cutoff=50 NG/ML 6 TRAMAD CONF CL Normal POSITIVE LAB L600.6040 Cutoff=50 NG/ML 6 CODEINE CONF CL Normal NEGATIVE LAB L600.6041 Cutoff=50 NG/ML 1 MORPH CONF CL Normal NEGATIVE LAB L600.6041 Cutoff=10 NG/ML 6 BUPREN CONF CL Normal NEGATIVE LAB L600.6042 Cutoff=10 NG/ML 1 NORBUP CONF CL Normal NEGATIVE LAB L600.6042 Cutoff=50 NG/ML 6 HYDROC CONF CL Normal NEGATIVE LAB L600.6043 Cutoff=50 NG/ML 1 HYDROM CONF CL Normal NEGATIVE LAB L600.6043 Cutoff=50 NG/ML 6 OXYCOD CONF CL Normal NEGATIVE LAB L600.6044 Cutoff=50 NG/ML 1 OXYMOR CONF CL Normal NEGATIVE LAB L600.6044 Cutoff=5 NG/ML 6 FENTAN CONF CL Normal NEGATIVE LAB L600.6045 Cutoff=10 NG/ML 1 NORFENT CONF CL Normal NEGATIVE LAB L600.6045 Cutoff=40 NG/ML 6 MEPERID CONF CL Normal NEGATIVE LAB L600.6046 Cutoff=40 NG/ML 1 NORMEP CONF CL Normal NEGATIVE LAB L600.6046 Cutoff=50 NG/ML 6 METHAD CONF CL Normal NEGATIVE LAB L600.6047 Cutoff=50 NG/ML 1 EDDP CONFIRM CL Normal NEGATIVE LAB L600.6047 Cutoff=20 NG/ML 6 NALO CONFIRM CL Normal NEGATIVE LAB L600.6048 Cutoff=10 NG/ML 1 NALTREX CONF CL Normal NEGATIVE LAB L600.6048 Cutoff=50 NG/ML 6 PROPOXY CONF CL Normal NEGATIVE LAB L600.6049 Cutoff=50 NG/ML 1 DIHYDRC CONF CL Normal NEGATIVE LAB L600.6049 Cutoff=50 NG/ML 6 NORHYDR CONF CL Normal NEGATIVE LAB L600.6050 Cutoff=50 NG/ML 1 NORPRO CONF CL Normal NEGATIVE LAB L600.6051 Cutoff=50 NG/ML 1 NOROX CONF CL Normal NEGATIVE LAB L600.6052 Cutoff=25 NG/ML 6 THCCOOH CONF CL Normal NEGATIVE LAB L600.6053 Cutoff=50 NG/ML 1 PHENTER CONF CL Normal NEGATIVE LAB L600.6053 Cutoff=50 NG/ML 6 DEXTROM CONF CL Normal NEGATIVE LAB L600.6054 Cutoff=50 NG/ML 1 DEXTRO CONF CL Normal NEGATIVE LAB L600.6054 Cutoff=50 NG/ML 6 COTININ CONF CL Normal NEGATIVE LAB L600.6055 Cutoff=10 NG/ML 6 [id number] CONF CL Normal NEGATIVE Result Comment: The Qualitative Testing is performed by [employer] [id number]. The Quantitative Confirmatory Analysis is a [facility] developed test(LDT), performed by quantitative liquid chromatography tandem mass spectrometry (LC-MS/MS). This LDT have not been cleared or approved by the FDA. Physicians should use discretion when interpreting analytical results for samples with failed validity testing. L/S SPINE MIN 4 Observed: 11/15/2017 Status: F Source: [place] VIEWS 10:33 AM [facility] REPOSITORY [facility] Imaging Services [address] [place] [id number] L/S Spine Min 4 Views MR#: [id number] Acct: [id number] Name: ANNETTE COMBS Rep #: [id number] : 1950 F 66 From: Venkata June MD PCP: Bernardo Alfaro MD Status: REG CLI Study: L/S Spine Min 4 Views Date of Exam: 11/15/17 Exam# [id number] Ordering Dr: PETE ROMAN STUDY: X-RAY - LUMBAR SPINE REASON FOR EXAM: Female, 66 years old. LOW BACK PAIN; MYOFASCIAL PAIN SYNDROME, LUMBAR POST LAMINECTOMY SYNDROME, OSTEOARTHRITIS TECHNIQUE: 5 view(s) of the lumbar spine were obtained. COMPARISON: August 06, 2016 FINDINGS: Normal lumbar lordosis. There is no substantial scoliosis. Spinal fixation hardware is noted. Stable grade 1 retrolisthesis of L2 on L3. Stable grade 1 anterolisthesis of L4 on L5. Hardware appears intact. There is multilevel endplate spondylosis of the lumbar vertebrae. There is multi-level degenerative disc disease with multi-level disc space narrowing. There are atherosclerotic vascular calcifications. The soft tissue structures are unremarkable. RAD/L/S Spine Min 4 Views IMPRESSION: Degenerative changes of the spine, as detailed above. There has been no change since the prior study. Electronically Signed: Venkata June MD at 20:52 EDT , Service support , CC: PETE ROMAN; Bernardo Alfaro MD Instructor Watch Assembly: Signed PROTHROMBIN TIME W/INR Collected: 10/31/2017 Status: F Source: [place] 6:51 AM [facility] REPOSITORY TYPE CODE TESTS RESULT OUT OF RANGE REFERENCE UNITS LAB L300.4150 11.7-14.9 SECONDS High PROTIME 27.6 LAB L300.4200 Normal INR 2.6 Performed By: #### L300.3900 #### [facility] [address] [place], [address] CNOV Observed: 10/25/2017 Status: COMPLETED Source: [place] 9:40 AM [facility] REPOSITORY Office Visit (WOOB) ANNETTE COMBS ([id number]) 1950 F Date Time Provider Department 10/25/17 9:40 AM ARGELIA THOMSON During your visit today, we recorded the following information about you: Blood pressure Weight Height 132/84 78.2 kg 1.6 m Argelia Thomson MD 10/25/2017 9:56 AM Signed Annette Combs is a 66 year old who presents for her annual gynecologic exam without complaints. Postmenopausal: Yes HRT use: Yuvafem Last Pap: s/p hyst Last mammogram: 2017 normal Obstetric History T0 L3 SAB0 TAB0 Ectopic0 Multiple0 Live Births0 PAST MEDICAL HISTORY Diagnosis Date - Acute, but ill-defined, cerebrovascular disease - Allergic rhinitis, cause unspecified Allergic rhinitis - Anal and rectal polyp FIBROPLASTIC - Anemia, unspecified - Colitis, collagenous 09/03/2011 - CVA (cerebral infarction) 90 - Degenerative joint disease of right knee 10/19/2010 - Degenerative lumbar spinal stenosis - DVT (deep venous thrombosis) (HCC) - Generalized osteoarthrosis, unspecified site - KNEE JOINT REPLACEMENT STATUS 09/02/2006 - Left foot drop 01/05/2011 - 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 Almendarez - Nontraumatic rupture of patellar tendon July 2007; sugical repair 07/29/[address] Devries - Other and unspecified hyperlipidemia 06/20/2012 - Other pulmonary embolism and infarction - PULM EMBOLISM/INFARCT NOS - Scoliosis Xray from [facility] 08/03/11 showed; also has narrowing L3-L4 and L4- L5; DJD L3, L4, L5; slight anterior displacement L4 on L5. - Symptomatic menopausal or female climacteric states - Unspecified asthma(493.90) - Unspecified hemorrhoids without mention of complication Hemorrhoids - Urge incontinence 02/01/2005 - VENOUS THROMBOSIS LOWER EXTREMITY NOS 10/30/2006 Post op left knee arthroscopy; ?PE at that time PAST SURGICAL HISTORY Procedure Laterality Date - DELIVERY ONLY 1988 , low cervical - COLONOSCOPY 03/25/01 R Cebul - hyperplastic polyp - COLONOSCOPY W/BX 05/17/11 repeat - [facility]BX 05/17/11 - FILTER PLACEMENT (VENA CAVA) 11-03-12 - HEMORRHOIDECT INTER/EXTER SIMP 03/27/01 - KNEE SCOPE,DIAGNOSTIC Left 05/10/2003 Arthroscopy, knee Left - L'SCOPE DX W/WO BRUSHINGS/WASHINGS 1999 Laparoscopy - LAMINECTOMY,LUMBAR 1994 Back surgery - LAMINECTOMY,LUMBAR 11/05/2012 Laminectomy, lumbar - LIGATE FALLOPIAN TUBE 1988 Tubal ligation - OPEN RX ANKLE DISLOCATN+FIXATN 1986 ORIF Ankle - PAST SURGICAL HISTORY OF 2003 Thumb bilateral - PAST SURGICAL HISTORY OF Left 07/2006 partial knee replacement left - PAST SURGICAL HISTORY OF Right 2008 repair knee cap - PAST SURGICAL HISTORY OF 03/26/2014 transurethral resection of bladder lesion. vaginal sling. Dr. Almendarez - REMOVAL OF OVARY/TUBE(S) 1999 Salpingo-oophorectomy bilateral - RETRIEV INTRAVASC FOREGN BODY 01/30/13 filter removal - TOTAL ABDOM HYSTERECTOMY 1999 AANDP REPAIR hyst for benign reason - TOTAL KNEE REPLACEMENT Right 2009 right knee replacement FAMILY HISTORY Problem Relation Age of Onset - Blood Disease Mother blood clot, coumadin - Hypertension Mother - Coronary Artery Disease Mother 84 - Cancer Father poss bladder - Prostate Cancer Father - None Sister - None Sister - None Sister - Diabetes Paternal Grandmother - Colon Cancer Paternal Grandmother - Stroke Paternal Grandfather - Diabetes Paternal Grandfather - Cancer Maternal Grandfather LEUKEMIA - Cancer Maternal Uncle - Psychiatry Sister anxiety SOCIAL HISTORY Social History Substance Use Topics - Smoking status: Former Smoker Quit date: 02/18/1969 - Smokeless tobacco: Never Used - Alcohol use No Comment: rarely, one drink every 3-4 hours REVIEW OF SYSTEMS Abdomen: No abdominal pain, nausea, vomiting, diarrhea, or constipation. No bloating, early satiety, indigestion, or increased flatulence. Bladder: follows with for mixed incontinence Breast: No breast lumps, nipple d/c, overlying skin changes, redness or skin retraction Allergies and current medication updated:Yes EXAM: There were no vitals taken for this visit. GENERAL: pleasant, female in no apparent distress BREAST: soft, non-tender, symmetric, no dominant mass, normal nipple-areolar complex, no lymphadenopathy and no nipple discharge CHEST: Normal inspiratory effort ABDOMEN: soft, non-tender and no masses PELVIC: external genitalia normal, no vulvar lesions, normal appearing perineal body and perianal region BIMANUAL: no adnexal masses, non-tender and uterus surgically absent RECTOVAGINAL: rectovaginal exam negative for any masses or nodularity. NEURO: alert and oriented x3,exam grossly non-focal EXTREMITIES: normal ASSESSMENT/PLAN: 1) Health maintenance: Pap/HPV screening no longer needed Mammogram up to date Nutrition, exercise and routine health maintenance exams reviewed. Colon cancer screening: up to date with screening BMD: followed by PCP AND up to date 2) Follow up one year or sooner as needed 3) Vaginal atrophy - continue haris Thomson MD Referring Provider: SELF [[id number]] Allergies As of Date: 10/25/2017 Noted Allergy Reaction CHLORHEXIDINE 05/21/2013 9 - Itching COTTON 10/12/2004 14 - Other: See Comments Comments: eyes become red and headache DARVON (PROPOXYPHENE HCL) 04/20/2008 1 - Mental Status Change FEATHERS 10/12/2004 14 - Other: See Comments Comments: eyes become red and headache GRASS POLLEN 10/08/2012 9 - Itching MORPHINE 04/20/2008 1 - Mental Status Change VINEGAR 10/12/2004 14 - Other: See Comments Comments: eyes become red and headache WOOL 10/12/2004 14 - Other: See Comments Comments: eyes become red and headache Date Reviewed: 10/25/2017 Reviewed by: Argelia Thomson - Fully Assessed Reason for Visit: Yearly Exam [187] Primary Visit Diagnosis:Encounter for gynecological examination without abnormal finding [Z01.419] Other Visit Diagnosis:Encounter for screening mammogram for malignant neoplasm of breast [Z12.31] Order(s):[facility] SCREENING [[id number]] Order #: [id number] FUTURE [START ON 10/27/2017] Estradiol (YUVAFEM) 10 mcg tab vaginal tabletUse 1 tablet vaginally every Saturday and Saturday.Disp: 20 tabletRfl: 11 Prescriptions as of 10/25/2017 Sig: ESTRADIOL 10 MCG VAGINAL TABL* Use 1 tablet vaginally every * LEVOCETIRIZINE 5 MG TABLET take 1 tablet by mouth once d* FERROUS SULFATE 325 MG (65 MG* Take 1 tablet by mouth twice * OMEPRAZOLE 20 MG CAPSULE,AILYN* TAKE ONE CAPSULE BY MOUTH MIKE* METFORMIN 500 MG TABLET take 1 tablet by mouth every * COMPOUNDED PRESCRIPTION Sitz bath SIMVASTATIN 20 MG TABLET take 1 tablet by mouth at bed* GABAPENTIN 800 MG TABLET Take 1 tablet by mouth three * WARFARIN 5 MG TABLET Take 1 tablet by mouth daily * FLUTICASONE 100 MCG-SALMETERO* Inhale 1 Puff as instructed t* BLOOD-GLUCOSE METER KIT Glucose Meter of Choice - Kit* BLOOD SUGAR DIAGNOSTIC STRIPS Test blood sugar(s) 2 times d* LANCETS Test blood sugar(s) 2 times d* TRAMADOL 50 MG TABLET Take 1 tablet by mouth twice * MELANIE C ORAL Take 1 tablet by mouth once d* OXYBUTYNIN CHLORIDE ER 10 MG * Take 1 tablet by mouth once d* ALBUTEROL SULFATE HFA 90 MCG/* Inhale 2 Puffs as instructed * CALCIUM CARBONATE 500 MG (1,2* Take two(2) tablets twice mike* OMEGA-3 FATTY ACIDS-VITAMIN E* Take 3 pills once daily (?dos* THERAPEUTIC MULTIVITAMIN TABL* Take one(1) tablet daily. Problem List As Of Date 10/25/2017 Noted Resolved Unspecified tinnitus [H93.19] 03/11/2012 Allergic rhinitis, cause unspecified [J30.9] GENERAL OSTEOARTHROSIS [M15.9] Carpal tunnel syndrome [G56.00] 03/11/2012 Dizziness and giddiness [R42] 03/11/2012 Contusion of unspecified part of trunk [S20.20X* 03/11/2012 Acute, but ill-defined, cerebrovascular disease* 03/11/2012 Other specified disorder of bladder [596.8] INVALID FOR*03/11/2012 Urge incontinence [N39.41] INVALID FOR*10/28/2014 Dermatophytosis of nail [B35.1] INVALID FOR*03/11/2012 Asthma [J45.909] BONE AND CARTILAGE DIS NOS [M89.9, M94.9] INVALID FOR* Other pulmonary embolism and infarction [I26.99] 03/11/2012 KNEE JOINT REPLACEMENT STATUS [Z96.659] INVALID FOR* Chronic deep vein thrombosis (DVT) of proximal *INVALID FOR* More... Symptomatic menopausal or female climacteric st*INVALID FOR*03/11/2012 Anxiety state, unspecified [F41.1] INVALID FOR*03/11/2012 Urgency of urination [R39.15] INVALID FOR*03/11/2012 Microscopic hematuria [R31.29] INVALID FOR*03/11/2012 Gross hematuria [R31.0] INVALID FOR*03/11/2012 DVT (deep venous thrombosis) [I82.409] INVALID FOR*03/11/2012 Osteoarthritis of basilar joint of thumb, left *INVALID FOR*03/11/2012 More... Degenerative joint disease of right knee [M17.1*INVALID FOR*03/11/2012 More... Lung nodule [R91.1] INVALID FOR*03/11/2012 More... Overlapping toe [M20.5X9] INVALID FOR*03/11/2012 More... Foot drop, left [M21.372] INVALID FOR* Other hammer toe (acquired) [M20.40] INVALID FOR*10/21/2013 Diarrhea [R19.7] INVALID FOR*03/11/2012 Anemia, unspecified [D64.9] INVALID FOR*03/11/2012 Dermatofibroma of right lower leg [D23.71] INVALID FOR*03/11/2012 Scar condition and fibrosis of skin [L90.5] INVALID FOR*03/11/2012 Other seborrheic keratosis [L82.1] INVALID FOR*03/11/2012 Melanocytic nevi of trunk: back [D22.5] INVALID FOR*10/28/2014 Other acne [L70.8] INVALID FOR*03/11/2012 Granuloma of hair follicle [L98.0] INVALID FOR*03/11/2012 Excoriation [T14.8XXA] INVALID FOR*03/11/2012 Actinic skin damage [L57.8] INVALID FOR*10/28/2014 Colitis, collagenous [K52.831] INVALID FOR*03/11/2012 Scoliosis [M41.9] 03/11/2012 More... Degenerative lumbar spinal stenosis [M48.061] INVALID FOR* More... 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 Mixed incontinence [N39.46] INVALID FOR* More... Spondylolisthesis of lumbar region [M43.16] INVALID FOR*11/08/2016 Gastroesophageal reflux disease [K21.9] INVALID FOR* Postlaminectomy syndrome [M96.1] INVALID FOR* Postmenopausal atrophic vaginitis [N95.2] INVALID FOR* Controlled type 2 diabetes mellitus with compli*INVALID FOR* Cognitive impairment [R41.89] INVALID FOR* CKD (chronic kidney disease) stage 3, GFR 30-59*INVALID FOR* Pain in left foot [M79.672] INVALID FOR* Prescriptions ordered this encounter Disp Refills Start End ESTRADIOL 10 MCG VAGINAL TABLET 20 t* 11 10/27/2017 Route: VAGINAL Sig: Use 1 tablet vaginally every Saturday and Saturday. Medications Discontinued During This Encounter Estradiol (YUVAFEM) 10 mcg tab vagin* 20 t* 11 09/19/2016 10/25/2017 Route: VAGINAL Sig: Use 1 tablet vaginally every Saturday and Saturday. Disc: Reason for discontinue is not on file. 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 Follow-up and Disposition History Recorded Encounter Status:Closed by ARGELIA THOMSON MD on 10/25/17 PROGRESS Observed: 10/25/2017 Status: COMPLETED Source: IDANHA 9:31 AM [facility] [place] REPOSITORY HNO ID: [id number] Author: Argelia Thomson Service: (none) Author Type: Physician Type: Progress Notes Filed: 10/25/2017 9:56 AM Note Text: Annette Combs is a 66 year old who presents for her annual gynecologic exam without complaints. Postmenopausal: Yes HRT use: Yuvafem Last Pap: s/p hyst Last mammogram: 2018 normal Obstetric History T0 L3 SAB0 TAB0 Ectopic0 Multiple0 Live Births0 PAST MEDICAL HISTORY Diagnosis Date - Acute, but ill-defined, cerebrovascular disease - Allergic rhinitis, cause unspecified Allergic rhinitis - Anal and rectal polyp FIBROPLASTIC - Anemia, unspecified - Colitis, collagenous 09/03/2011 - CVA (cerebral infarction) 90 - Degenerative joint disease of right knee 10/19/2010 - Degenerative lumbar spinal stenosis - DVT (deep venous thrombosis) (HCC) - Generalized osteoarthrosis, unspecified site - KNEE JOINT REPLACEMENT STATUS 09/02/2006 - Left foot drop 01/05/2011 - 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 Almendarez - Nontraumatic rupture of patellar tendon July 2007; sugical repair 07/29/[address] Devries - Other and unspecified hyperlipidemia 06/20/2012 - Other pulmonary embolism and infarction - PULM EMBOLISM/INFARCT NOS - Scoliosis Xray from [facility] 08/03/11 showed; also has narrowing L3-L4 and L4- L5; DJD L3, L4, L5; slight anterior displacement L4 on L5. - Symptomatic menopausal or female climacteric states - Unspecified asthma(493.90) - Unspecified hemorrhoids without mention of complication Hemorrhoids - Urge incontinence 02/01/2005 - VENOUS THROMBOSIS LOWER EXTREMITY NOS 10/30/2006 Post op left knee arthroscopy; ?PE at that time PAST SURGICAL HISTORY Procedure Laterality Date - DELIVERY ONLY 1988 , low cervical - COLONOSCOPY 03/25/01 R Cebul - hyperplastic polyp - COLONOSCOPY W/BX 05/17/11 repeat - EGD W/O [facility] SPECIMEN W/BX 05/17/11 - FILTER PLACEMENT (VENA CAVA) 11-03-12 - HEMORRHOIDECT INTER/EXTER SIMP 03/27/01 - KNEE SCOPE,DIAGNOSTIC Left 05/10/2003 Arthroscopy, knee Left - L'SCOPE DX W/WO BRUSHINGS/WASHINGS 1999 Laparoscopy - LAMINECTOMY,LUMBAR 1994 Back surgery - LAMINECTOMY,LUMBAR 11/05/2012 Laminectomy, lumbar - LIGATE FALLOPIAN TUBE 1988 Tubal ligation - OPEN RX ANKLE DISLOCATN+FIXATN 1986 ORIF Ankle - PAST SURGICAL HISTORY OF 2004 Thumb bilateral - PAST SURGICAL HISTORY OF Left 07/2006 partial knee replacement left - PAST SURGICAL HISTORY OF Right 2008 repair knee cap - PAST SURGICAL HISTORY OF 03/26/2014 transurethral resection of bladder lesion. vaginal sling. Dr. Almendarez - REMOVAL OF OVARY/TUBE(S) 1999 Salpingo-oophorectomy bilateral - RETRIEV INTRAVASC FOREGN BODY 01/30/13 filter removal - TOTAL ABDOM HYSTERECTOMY 1999 AANDP REPAIR hyst for benign reason - TOTAL KNEE REPLACEMENT Right 2009 right knee replacement FAMILY HISTORY Problem Relation Age of Onset - Blood Disease Mother blood clot, coumadin - Hypertension Mother - Coronary Artery Disease Mother 84 - Cancer Father poss bladder - Prostate Cancer Father - None Sister - None Sister - None Sister - Diabetes Paternal Grandmother - Colon Cancer Paternal Grandmother - Stroke Paternal Grandfather - Diabetes Paternal Grandfather - Cancer Maternal Grandfather LEUKEMIA - Cancer Maternal Uncle - Psychiatry Sister anxiety SOCIAL HISTORY Social History Substance Use Topics - Smoking status: Former Smoker Quit date: 02/18/1969 - Smokeless tobacco: Never Used - Alcohol use No Comment: rarely, one drink every 3-4 hours REVIEW OF SYSTEMS Abdomen: No abdominal pain, nausea, vomiting, diarrhea, or constipation. No bloating, early satiety, indigestion, or increased flatulence. Bladder: follows with for mixed incontinence Breast: No breast lumps, nipple d/c, overlying skin changes, redness or skin retraction Allergies and current medication updated:Yes EXAM: There were no vitals taken for this visit. GENERAL: pleasant, female in no apparent distress BREAST: soft, non-tender, symmetric, no dominant mass, normal nipple-areolar complex, no lymphadenopathy and no nipple discharge CHEST: Normal inspiratory effort ABDOMEN: soft, non-tender and no masses PELVIC: external genitalia normal, no vulvar lesions, normal appearing perineal body and perianal region BIMANUAL: no adnexal masses, non-tender and uterus surgically absent RECTOVAGINAL: rectovaginal exam negative for any masses or nodularity. NEURO: alert and oriented x3,exam grossly non-focal EXTREMITIES: normal ASSESSMENT/PLAN: 1) Health maintenance: Pap/HPV screening no longer needed Mammogram up to date Nutrition, exercise and routine health maintenance exams reviewed. Colon cancer screening: up to date with screening BMD: followed by PCP AND up to date 2) Follow up one year or sooner as needed 3) Vaginal atrophy - continue haris Thomson MD PROTHROMBIN TIME W/INR Collected: 10/23/2017 Status: F Source: BRIA 7:13 AM [facility] REPOSITORY TYPE CODE TESTS RESULT OUT OF RANGE REFERENCE UNITS LAB L300.4150 11.7-14.9 SECONDS High PROTIME 28.3 LAB L300.4200 Normal INR 2.6 Performed By: #### L300.3900 #### [facility] [address] [place], [address] PROTHROMBIN TIME W/INR Collected: 10/08/2017 Status: F Source: BRIA 6:40 AM [facility] REPOSITORY TYPE CODE TESTS RESULT OUT OF RANGE REFERENCE UNITS LAB L300.4150 11.7-14.9 SECONDS High PROTIME 21.0 LAB L300.4200 Normal INR 1.8 Performed By: #### [id number] #### [facility] [address] [place], [address] PROGRESS Observed: 10/04/2017 Status: COMPLETED Source: IDANHA 9:10 AM [facility] REPOSITORY O ID: [id number] Author: Kimberly ([place]) Older Service: (none) Author Type: Nurse Practitioner Type: Progress Notes Filed: 10/04/2017 9:35 AM Note Text: CC: Patient presents with: [facility] Discharge follow up: Vasovagal Syncope (Acute) FAITH Combs is a 66 year old female who presents today for hospital follow-up. Facility: [facility] Date of visit: 10/01 to 10/02 Reason for visit: syncopal episode while getting fitted for an ankle brace for her left foot drop. Reported she started feeling warm and then passed out. Hospital course: Labs grossly normal. Troponin normal. EKG sinus bradycardia otherwise normal. Diagnosis: Vasovagal syncope Discharge: No medication changes. Advised to increase fluid intake. Current symptoms: Feeling better, getting back to her normal self. No further episodes of passing out. Has been drinking a lot more water. Patient is diabetic, denies hypoglycemia. Taking all medications as prescribed. No new medications including OTC. No alcohol or drug use. No history of syncope. REVIEW OF SYSTEMS General: no fevers, no chills and no night sweats Respiratory: no cough, no wheezing, no shortness of breath Cardiovascular: no chest pain, no chest pressure, no palpitations and no swelling GI: No nausea, vomiting, or diarrhea Neurologic: no headaches, no dizziness, no memory loss, no numbness or tingling of hands, no numbness or tingling of feet, no muscle weakness, no tremor, no visual disturbance, no difficulty walking, no trouble swallowing PAST MEDICAL HISTORY Diagnosis Date - Acute, but ill-defined, cerebrovascular disease - Allergic rhinitis, cause unspecified Allergic rhinitis - Anal and rectal polyp FIBROPLASTIC - Anemia, unspecified - Colitis, collagenous 09/03/2011 - CVA (cerebral infarction) 90 - Degenerative joint disease of right knee 10/19/2010 - Degenerative lumbar spinal stenosis - DVT (deep venous thrombosis) (HCC) - Generalized osteoarthrosis, unspecified site - KNEE JOINT REPLACEMENT STATUS 09/02/2006 - Left foot drop 01/05/2011 - 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 Almendarez - Nontraumatic rupture of patellar tendon July 2007; sugical repair 07/29/[address] Devries - Other and unspecified hyperlipidemia 06/20/2012 - Other pulmonary embolism and infarction - PULM EMBOLISM/INFARCT NOS - Scoliosis Xray from [facility] 08/03/11 showed; also has narrowing L3-L4 and L4- L5; DJD L3, L4, L5; slight anterior displacement L4 on L5. - Symptomatic menopausal or female climacteric states - Unspecified asthma(493.90) - Unspecified hemorrhoids without mention of complication Hemorrhoids - Urge incontinence 02/01/2005 - VENOUS THROMBOSIS LOWER EXTREMITY NOS 10/30/2006 Post op left knee arthroscopy; ?PE at that time PAST SURGICAL HISTORY Procedure Laterality Date - DELIVERY ONLY 1988 , low cervical - COLONOSCOPY 03/25/01 R Cebul - hyperplastic polyp - COLONOSCOPY W/BX 05/17/11 repeat - EGD W/O [facility] SPECIMEN W/BX 05/17/11 - FILTER PLACEMENT (VENA CAVA) 11-03-12 - HEMORRHOIDECT INTER/EXTER SIMP 03/27/01 - KNEE SCOPE,DIAGNOSTIC Left 05/10/2003 Arthroscopy, knee Left - L'SCOPE DX W/WO BRUSHINGS/WASHINGS 1999 Laparoscopy - LAMINECTOMY,LUMBAR 1994 Back surgery - LAMINECTOMY,LUMBAR 11/05/2012 Laminectomy, lumbar - LIGATE FALLOPIAN TUBE 1988 Tubal ligation - OPEN RX ANKLE DISLOCATN+FIXATN 1986 ORIF Ankle - PAST SURGICAL HISTORY OF 2004 Thumb bilateral - PAST SURGICAL HISTORY OF Left 07/2006 partial knee replacement left - PAST SURGICAL HISTORY OF Right 2008 repair knee cap - PAST SURGICAL HISTORY OF 03/26/2014 transurethral resection of bladder lesion. vaginal sling. Dr. Almendarez - REMOVAL OF OVARY/TUBE(S) 1999 Salpingo-oophorectomy bilateral - RETRIEV INTRAVASC FOREGN BODY 01/30/13 filter removal - TOTAL ABDOM HYSTERECTOMY 1999 AANDP REPAIR hyst for benign reason - TOTAL KNEE REPLACEMENT Right 2009 right knee replacement ALLERGIES Chlorhexidine; Cotton; Darvon [Propoxyphene Hcl]; Feathers; Grass Pollen; Morphine; Vinegar; Wool MEDICATIONS ferrous sulfate 325 mg (65 mg iron) tablet Take 1 tablet by mouth twice daily with meals. omeprazole (PRILOSEC) 20 mg capsule TAKE ONE CAPSULE BY MOUTH DAILY 1/2 HOUR BEFORE BREAKFAST metFORMIN (GLUCOPHAGE) 500 mg tablet take 1 tablet by mouth every morning WITH BREAKFAST COMPOUNDED PRESCRIPTION Sitz bath simvastatin (ZOCOR) 20 mg tablet take 1 tablet by mouth at bedtime gabapentin (NEURONTIN) 800 mg tablet Take 1 tablet by mouth three times daily. warfarin (COUMADIN) 5 mg tablet Take 1 tablet by mouth daily as directed. fluticasone-salmeterol (ADVAIR DISKUS) 100-50 mcg/dose dsdv Inhale 1 Puff as instructed twice daily. as directed Blood-Glucose Meter monitoring kit Glucose Meter of Choice - Kit - Dx: Type 2 DM - Uncontrolled E11.9 blood sugar diagnostic (BLOOD GLUCOSE TEST) test strip Test blood sugar(s) 2 times daily. Dx: Type 2 DM - Uncontrolled E11.9 Insulin: No Lancets lancets Test blood sugar(s) 2 times daily. Dx: Type 2 DM - Uncontrolled E11.9 Insulin: No Estradiol (YUVAFEM) 10 mcg tab vaginal tablet Use 1 tablet vaginally every Saturday and Saturday. Levocetirizine (XYZAL) 5 mg tablet Take 1 tablet by mouth once daily. traMADol (ULTRAM) 50 mg tablet Take 1 tablet by mouth twice daily as needed for Pain. ASCORBIC ACID/BIOFLAVONOIDS (MELANIE C ORAL) Take 1 tablet by mouth once daily. oxybutynin XL (DITROPAN XL) 10 mg 24 hr tablet Take 1 tablet by mouth once daily. albuterol HFA (PROVENTIL HFA) 90 mcg/actuation inhaler Inhale 2 Puffs as instructed every 4 hours as needed for Wheezing/Shortness of Breath. MAY GIVE AVAILABLE EQUIVALENT ALBUTEROL HFA INHALER Calcium-Cholecalciferol, D3, (CALCIUM 500 + D, D3,) 500-125 mg-unit ORAL Tab Take two(2) tablets twice daily. [place]-3 Fatty Acids-Vitamin E (FISH OIL) 1,000 mg ORAL Cap Take 3 pills once daily (?dose) THERAPEUTIC MULTIVITAMIN ORAL TAB Take one(1) tablet daily. FAMILY HISTORY Problem Relation Age of Onset - Blood Disease Mother blood clot, coumadin - Hypertension Mother - Coronary Artery Disease Mother 84 - Cancer Father poss bladder - Prostate Cancer Father - None Sister - None Sister - None Sister - Diabetes Paternal Grandmother - Colon Cancer Paternal Grandmother - Stroke Paternal Grandfather - Diabetes Paternal Grandfather - Cancer Maternal Grandfather LEUKEMIA - Cancer Maternal Uncle - Psychiatry Sister anxiety Social History Substance Use Topics - Smoking status: Former Smoker Quit date: 02/18/1969 - Smokeless tobacco: Never Used - Alcohol use No Comment: rarely, one drink every 3-4 hours PHYSICAL EXAM BP 120/80 Pulse 91 Temp 36.1 ?C (97 ?F) (Temporal Artery) Resp 14 Wt 77.1 kg (170 lb) SpO2 96% BMI 30.31 kg/m? General Appearance: well appearing, in no acute distress, alert Pysch: mood and affect broad and appropriate Skin: Skin color, texture, turgor normal for age; Eyes: PERRLA, EOM's intact, conjunctiva pink and moist, no icterus, sclera white, non-injected Neck: Thyroid normal size and symmetric without palpable nodules, No bruits, Neck supple, No adenopathy Oropharynx: lips normal without lesions, tongue midline and normal, soft palate, uvula, and tonsils normal Lungs: Lungs clear to auscultation. No wheezing, rhonchi, rales Heart: RRR without murmur, gallop, or rubs. No ectopy Abdomen: Abdomen soft, non-tender. Ext: no edema in LE bilaterally, good distal pulses ASSESSMENT/PLAN: 1. Vasovagal syncope - ICD9: 780.2, ICD10: R55 No further episodes. No alarm symptoms or exam findings. No further work-up indicated. Encouraged patient to continue to drink plenty of fluids, don't skip meals and change position slowly Follow-up as needed for recurrent episode Prescription instructions reviewed with patient as applicable. Potential red flag symptoms discussed with the patient. Reviewed appropriate action plan to take if red flag symptoms occur. Patient agreeable to treatment plan. Kimberly Farah APRN.CNP CNOV Observed: 10/04/2017 Status: COMPLETED Source: IDANHA 9:00 AM [facility] REPOSITORY Office Visit (INTMWS) ANNETTE COMBS ([id number]) 1950 F Date Time Provider Department 10/04/17 9:00 AM KIMBERLY FARAH ([place]) INTMWS During your visit today, we recorded the following information about you: Temperature Pulse Respiration Blood pressure 97 degrees 91/minute 14/minute 120/80 Weight 77.1 kg Kimberly Farah APRN.CNP 10/04/2017 9:35 AM Signed CC: Patient presents with: [facility] Discharge follow up: Vasovagal Syncope (Acute) HPI Annette Combs is a 66 year old female who presents today for hospital follow-up. Facility: [facility] Date of visit: 10/01 to 10/02 Reason for visit: syncopal episode while getting fitted for an ankle brace for her left foot drop. Reported she started feeling warm and then passed out. Hospital course: Labs grossly normal. Troponin normal. EKG sinus bradycardia otherwise normal. Diagnosis: Vasovagal syncope Discharge: No medication changes. Advised to increase fluid intake. Current symptoms: Feeling better, getting back to her normal self. No further episodes of passing out. Has been drinking a lot more water. Patient is diabetic, denies hypoglycemia. Taking all medications as prescribed. No new medications including OTC. No alcohol or drug use. No history of syncope. REVIEW OF SYSTEMS General: no fevers, no chills and no night sweats Respiratory: no cough, no wheezing, no shortness of breath Cardiovascular: no chest pain, no chest pressure, no palpitations and no swelling GI: No nausea, vomiting, or diarrhea Neurologic: no headaches, no dizziness, no memory loss, no numbness or tingling of hands, no numbness or tingling of feet, no muscle weakness, no tremor, no visual disturbance, no difficulty walking, no trouble swallowing PAST MEDICAL HISTORY Diagnosis Date - Acute, but ill-defined, cerebrovascular disease - Allergic rhinitis, cause unspecified Allergic rhinitis - Anal and rectal polyp FIBROPLASTIC - Anemia, unspecified - Colitis, collagenous 09/03/2011 - CVA (cerebral infarction) 90 - Degenerative joint disease of right knee 10/19/2010 - Degenerative lumbar spinal stenosis - DVT (deep venous thrombosis) (HCC) - Generalized osteoarthrosis, unspecified site - KNEE JOINT REPLACEMENT STATUS 09/02/2006 - Left foot drop 01/05/2011 - 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 Almendarez - Nontraumatic rupture of patellar tendon July 2007; sugical repair 07/29/[address] Devries - Other and unspecified hyperlipidemia 06/20/2012 - Other pulmonary embolism and infarction - PULM EMBOLISM/INFARCT NOS - Scoliosis Xray from [facility] 08/03/11 showed; also has narrowing L3-L4 and L4- L5; DJD L3, L4, L5; slight anterior displacement L4 on L5. - Symptomatic menopausal or female climacteric states - Unspecified asthma(493.90) - Unspecified hemorrhoids without mention of complication Hemorrhoids - Urge incontinence 02/01/2005 - VENOUS THROMBOSIS LOWER EXTREMITY NOS 10/30/2006 Post op left knee arthroscopy; ?PE at that time PAST SURGICAL HISTORY Procedure Laterality Date - DELIVERY ONLY 1988 , low cervical - COLONOSCOPY 03/25/01 R Cebul - hyperplastic polyp - COLONOSCOPY W/BX 05/17/11 repeat - EGD W/O [facility] SPECIMEN W/BX 05/17/11 - FILTER PLACEMENT (VENA CAVA) 11-03-12 - HEMORRHOIDECT INTER/EXTER SIMP 03/27/01 - KNEE SCOPE,DIAGNOSTIC Left 05/10/2003 Arthroscopy, knee Left - L'SCOPE DX W/WO BRUSHINGS/WASHINGS 1999 Laparoscopy - LAMINECTOMY,LUMBAR 1994 Back surgery - LAMINECTOMY,LUMBAR 11/05/2012 Laminectomy, lumbar - LIGATE FALLOPIAN TUBE 1988 Tubal ligation - OPEN RX ANKLE DISLOCATN+FIXATN 1986 ORIF Ankle - PAST SURGICAL HISTORY OF 2004 Thumb bilateral - PAST SURGICAL HISTORY OF Left 07/2006 partial knee replacement left - PAST SURGICAL HISTORY OF Right 2008 repair knee cap - PAST SURGICAL HISTORY OF 03/26/2014 transurethral resection of bladder lesion. vaginal sling. Dr. Almendarez - REMOVAL OF OVARY/TUBE(S) 1999 Salpingo-oophorectomy bilateral - RETRIEV INTRAVASC FOREGN BODY 01/30/13 filter removal - TOTAL ABDOM HYSTERECTOMY 1999 AANDP REPAIR hyst for benign reason - TOTAL KNEE REPLACEMENT Right 2009 right knee replacement ALLERGIES Chlorhexidine; Cotton; Darvon [Propoxyphene Hcl]; Feathers; Grass Pollen; Morphine; Vinegar; Wool MEDICATIONS ferrous sulfate 325 mg (65 mg iron) tablet Take 1 tablet by mouth twice daily with meals. omeprazole (PRILOSEC) 20 mg capsule TAKE ONE CAPSULE BY MOUTH DAILY 1/2 HOUR BEFORE BREAKFAST metFORMIN (GLUCOPHAGE) 500 mg tablet take 1 tablet by mouth every morning WITH BREAKFAST COMPOUNDED PRESCRIPTION Sitz bath simvastatin (ZOCOR) 20 mg tablet take 1 tablet by mouth at bedtime gabapentin (NEURONTIN) 800 mg tablet Take 1 tablet by mouth three times daily. warfarin (COUMADIN) 5 mg tablet Take 1 tablet by mouth daily as directed. fluticasone-salmeterol (ADVAIR DISKUS) 100-50 mcg/dose dsdv Inhale 1 Puff as instructed twice daily. as directed Blood-Glucose Meter monitoring kit Glucose Meter of Choice - Kit - Dx: Type 2 DM - Uncontrolled E11.9 blood sugar diagnostic (BLOOD GLUCOSE TEST) test strip Test blood sugar(s) 2 times daily. Dx: Type 2 DM - Uncontrolled E11.9 Insulin: No Lancets lancets Test blood sugar(s) 2 times daily. Dx: Type 2 DM - Uncontrolled E11.9 Insulin: No Estradiol (YUVAFEM) 10 mcg tab vaginal tablet Use 1 tablet vaginally every Saturday and Saturday. Levocetirizine (XYZAL) 5 mg tablet Take 1 tablet by mouth once daily. traMADol (ULTRAM) 50 mg tablet Take 1 tablet by mouth twice daily as needed for Pain. ASCORBIC ACID/BIOFLAVONOIDS (MELANIE C ORAL) Take 1 tablet by mouth once daily. oxybutynin XL (DITROPAN XL) 10 mg 24 hr tablet Take 1 tablet by mouth once daily. albuterol HFA (PROVENTIL HFA) 90 mcg/actuation inhaler Inhale 2 Puffs as instructed every 4 hours as needed for Wheezing/Shortness of Breath. MAY GIVE AVAILABLE EQUIVALENT ALBUTEROL HFA INHALER Calcium-Cholecalciferol, D3, (CALCIUM 500 + D, D3,) 500-125 mg-unit ORAL Tab Take two(2) tablets twice daily. [place]-3 Fatty Acids-Vitamin E (FISH OIL) 1,000 mg ORAL Cap Take 3 pills once daily (?dose) THERAPEUTIC MULTIVITAMIN ORAL TAB Take one(1) tablet daily. FAMILY HISTORY Problem Relation Age of Onset - Blood Disease Mother blood clot, coumadin - Hypertension Mother - Coronary Artery Disease Mother 84 - Cancer Father poss bladder - Prostate Cancer Father - None Sister - None Sister - None Sister - Diabetes Paternal Grandmother - Colon Cancer Paternal Grandmother - Stroke Paternal Grandfather - Diabetes Paternal Grandfather - Cancer Maternal Grandfather LEUKEMIA - Cancer Maternal Uncle - Psychiatry Sister anxiety Social History Substance Use Topics - Smoking status: Former Smoker Quit date: 02/18/1969 - Smokeless tobacco: Never Used - Alcohol use No Comment: rarely, one drink every 3-4 hours PHYSICAL EXAM BP 120/80 Pulse 91 Temp 36.1 ?C (97 ?F) (Temporal Artery) Resp 14 Wt 77.1 kg (170 lb) SpO2 96% BMI 30.31 kg/m? General Appearance: well appearing, in no acute distress, alert Pysch: mood and affect broad and appropriate Skin: Skin color, texture, turgor normal for age; Eyes: PERRLA, EOM's intact, conjunctiva pink and moist, no icterus, sclera white, non-injected Neck: Thyroid normal size and symmetric without palpable nodules, No bruits, Neck supple, No adenopathy Oropharynx: lips normal without lesions, tongue midline and normal, soft palate, uvula, and tonsils normal Lungs: Lungs clear to auscultation. No wheezing, rhonchi, rales Heart: RRR without murmur, gallop, or rubs. No ectopy Abdomen: Abdomen soft, non-tender. Ext: no edema in LE bilaterally, good distal pulses ASSESSMENT/PLAN: 1. Vasovagal syncope - ICD9: 780.2, ICD10: R55 No further episodes. No alarm symptoms or exam findings. No further work-up indicated. Encouraged patient to continue to drink plenty of fluids, don't skip meals and change position slowly Follow-up as needed for recurrent episode Prescription instructions reviewed with patient as applicable. Potential red flag symptoms discussed with the patient. Reviewed appropriate action plan to take if red flag symptoms occur. Patient agreeable to treatment plan. Kimberly Farah APRN.M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 Referring Provider: SELF [[id number]] Allergies As of Date: 10/04/2017 Noted Allergy Reaction CHLORHEXIDINE 05/21/2013 9 - Itching COTTON 10/12/2004 14 - Other: See Comments Comments: eyes become red and headache DARVON (PROPOXYPHENE HCL) 04/20/2008 1 - Mental Status Change FEATHERS 10/12/2004 14 - Other: See Comments Comments: eyes become red and headache GRASS POLLEN 10/08/2012 9 - Itching MORPHINE 04/20/2008 1 - Mental Status Change VINEGAR 10/12/2004 14 - Other: See Comments Comments: eyes become red and headache WOOL 10/12/2004 14 - Other: See Comments Comments: eyes become red and headache Date Reviewed: 10/04/2017 Reviewed by: Roseann Rice Elevator Service Technician - Fully Assessed Reason for Visit: [facility] Discharge follow up [Other] Cmt: Vasovagal Syncope (Acute) Primary Visit Diagnosis:Vasovagal syncope [R55] Prescriptions as of 10/04/2017 Sig: FERROUS SULFATE 325 MG (65 MG* Take 1 tablet by mouth twice * OMEPRAZOLE 20 MG CAPSULE,AILYN* TAKE ONE CAPSULE BY MOUTH MIKE* METFORMIN 500 MG TABLET take 1 tablet by mouth every * COMPOUNDED PRESCRIPTION Sitz bath SIMVASTATIN 20 MG TABLET take 1 tablet by mouth at bed* GABAPENTIN 800 MG TABLET Take 1 tablet by mouth three * WARFARIN 5 MG TABLET Take 1 tablet by mouth daily * FLUTICASONE 100 MCG-SALMETERO* Inhale 1 Puff as instructed t* BLOOD-GLUCOSE METER KIT Glucose Meter of Choice - Kit* BLOOD SUGAR DIAGNOSTIC STRIPS Test blood sugar(s) 2 times d* LANCETS Test blood sugar(s) 2 times d* ESTRADIOL 10 MCG VAGINAL TABL* Use 1 tablet vaginally every * LEVOCETIRIZINE 5 MG TABLET Take 1 tablet by mouth once d* TRAMADOL 50 MG TABLET Take 1 tablet by mouth twice * MELNAIE C ORAL Take 1 tablet by mouth once d* OXYBUTYNIN CHLORIDE ER 10 MG * Take 1 tablet by mouth once d* ALBUTEROL SULFATE HFA 90 MCG/* Inhale 2 Puffs as instructed * CALCIUM CARBONATE 500 MG (1,2* Take two(2) tablets twice mike* OMEGA-3 FATTY ACIDS-VITAMIN E* Take 3 pills once daily (?dos* THERAPEUTIC MULTIVITAMIN TABL* Take one(1) tablet daily. Problem List As Of Date 10/04/2017 Noted Resolved Unspecified tinnitus [H93.19] 03/11/2012 Allergic rhinitis, cause unspecified [J30.9] GENERAL OSTEOARTHROSIS [M15.9] Carpal tunnel syndrome [G56.00] 03/11/2012 Dizziness and giddiness [R42] 03/11/2012 Contusion of unspecified part of trunk [S20.20X* 03/11/2012 Acute, but ill-defined, cerebrovascular disease* 03/11/2012 Other specified disorder of bladder [596.8] INVALID FOR*03/11/2012 Urge incontinence [N39.41] INVALID FOR*10/28/2014 Dermatophytosis of nail [B35.1] INVALID FOR*03/11/2012 Asthma [J45.909] BONE AND CARTILAGE DIS NOS [M89.9, M94.9] INVALID FOR* Other pulmonary embolism and infarction [I26.99] 03/11/2012 KNEE JOINT REPLACEMENT STATUS [Z96.659] INVALID FOR* Chronic deep vein thrombosis (DVT) of proximal *INVALID FOR* More... Symptomatic menopausal or female climacteric st*INVALID FOR*03/11/2012 Anxiety state, unspecified [F41.1] INVALID FOR*03/11/2012 Urgency of urination [R39.15] INVALID FOR*03/11/2012 Microscopic hematuria [R31.29] INVALID FOR*03/11/2012 Gross hematuria [R31.0] INVALID FOR*03/11/2012 DVT (deep venous thrombosis) [I82.409] INVALID FOR*03/11/2012 Osteoarthritis of basilar joint of thumb, left *INVALID FOR*03/11/2012 More... Degenerative joint disease of right knee [M17.1*INVALID FOR*03/11/2012 More... Lung nodule [R91.1] INVALID FOR*03/11/2012 More... Overlapping toe [M20.5X9] INVALID FOR*03/11/2012 More... Foot drop, left [M21.372] INVALID FOR* Other hammer toe (acquired) [M20.40] INVALID FOR*10/21/2013 Diarrhea [R19.7] INVALID FOR*03/11/2012 Anemia, unspecified [D64.9] INVALID FOR*03/11/2012 Dermatofibroma of right lower leg [D23.71] INVALID FOR*03/11/2012 Scar condition and fibrosis of skin [L90.5] INVALID FOR*03/11/2012 Other seborrheic keratosis [L82.1] INVALID FOR*03/11/2012 Melanocytic nevi of trunk: back [D22.5] INVALID FOR*10/28/2014 Other acne [L70.8] INVALID FOR*03/11/2012 Granuloma of hair follicle [L98.0] INVALID FOR*03/11/2012 Excoriation [T14.8XXA] INVALID FOR*03/11/2012 Actinic skin damage [L57.8] INVALID FOR*10/28/2014 Colitis, collagenous [K52.831] INVALID FOR*03/11/2012 Scoliosis [M41.9] 03/11/2012 More... Degenerative lumbar spinal stenosis [M48.061] INVALID FOR* More... 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 Mixed incontinence [N39.46] INVALID FOR* More... Spondylolisthesis of lumbar region [M43.16] INVALID FOR*11/08/2016 Gastroesophageal reflux disease [K21.9] INVALID FOR* Postlaminectomy syndrome [M96.1] INVALID FOR* Postmenopausal atrophic vaginitis [N95.2] INVALID FOR* Controlled type 2 diabetes mellitus with compli*INVALID FOR* Cognitive impairment [R41.89] INVALID FOR* CKD (chronic kidney disease) stage 3, GFR 30-59*INVALID FOR* Pain in left foot [M79.672] INVALID FOR* Encounter Status:Closed by KIMBERLY FARAH M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 on 10/04/17 XR FOOT 3V AP/LAT/OBL Observed: 10/04/2017 Status: F Source: [facility] 8:41 AM [facility] REPOSITORY * * *Final Report* * * DATE OF EXAM: Oct 04 2017 8:41AM [id number] [id number] - XR FOOT 3V AP/LAT/OBL LT / PROCEDURE REASON: multiple diagnoses * * * * Physician Interpretation * * * * EXAM: XR FOOT 3V AP/LAT/OBL LT HISTORY: Dislocation of tarsometatarsal joint of left foot, subsequent encounter Charcot's joint, left ankle and foot Type 2 diabetes mellitus with other diabetic neurological complication . VIEWS: Weightbearing AP, oblique and lateral. COMPARISON: 09/13/2017. FINDINGS: Pes planovalgus and small plantar heel spur. Chopart joints are maintained. Narrowed first tarsometatarsal joint with subchondral cysts and minimal hypertrophic spurring. Stable appearance of laterally subluxed second tarsometatarsal joint. Mild arthrosis of the first metatarsophalangeal joint and laterally subluxed sesamoids. Bridging callus at incompletely healed fracture of fifth proximal phalanx. Narrowed interphalangeal joints. IMPRESSION: Bridging callus at incompletely healed fracture of fifth proximal phalanx. Pes planovalgus and small plantar heel spur. Lisfranc arthrosis and stable lateral subluxation of second tarsometatarsal joint. Instructor Watch Assembly: MARSHALL Transcribe Date/Time: Oct 04 2017 2:02P Dictated by : Marcel VERDE MD This examination was interpreted and the report reviewed and electronically signed by: Marcel VERDE MD on Oct 04 2017 2:07PM EST [id number] PROGRESS Observed: 10/04/2017 Status: COMPLETED Source: [facility] 8:31 AM [facility] REPOSITORY HNO ID: [id number] Author: Shanelle Marrufo (Rt) Arnoldo Young Service: (none) Author Type: [place] Type: Progress Notes Filed: 10/04/2017 8:41 AM Note Text: Radiology Service Progress Note PATIENT NAME: Annette Combs DATE OF SERVICE: October 04, 2017 TIME: 8:31 AM PATIENT IDENTITY VERIFICATION COMPLETED USING TWO (2) METHODS: Patient confirmed name verbally and Date of . PATIENT GENDER DATA: Female. status: : No status: NO. PATIENT RELEVANT IMPLANT DATA REVIEWED: Not Applicable RADIOLOGY DEPARTMENT: General X-ray: Exam(s) Completed: Lower Extremity X-Ray(s): Foot, Left: PERIPHERAL IV DATA: Not applicable SIGNED BY: RT Alina October 04, 2017 8:31 AM PROGRESS Observed: 10/04/2017 Status: COMPLETED Source: [facility] 8:07 AM [facility] REPOSITORY HNO ID: [id number] Author: Alexandru Toure Service: (none) Author Type: Physician Type: Progress Notes Filed: 10/04/2017 8:41 AM Note Text: ? Alexandru Toure DPM Department of Podiatry [address] [place] [id number] Dept: [phone] Dept 10/04/2017 Follow Up Podiatric Office Visit: HPI: Annette Combs is a 66 year old female. Patient presents to follow up on Left TMTJ disclocation. She is 7 weeks, 4 days post injury. Patient complains of pain in her L foot. Pain is rated at 9/10, and described as stabbing. She states it has been going on for awhile. Patient is wearing her old AFO. She had an appointment with [facility] on Saturday and states that they are waiting on insurance approval of brace. Patient is not interested in any surgery. 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 Almendarez - Nontraumatic rupture of patellar tendon July 2007; sugical repair 07/29/[address] Devries - Other and unspecified hyperlipidemia 06/20/2012 - Other pulmonary embolism and infarction - PULM EMBOLISM/INFARCT NOS - Scoliosis Xray from [facility] 08/03/11 showed; also has narrowing L3-L4 and L4- L5; DJD L3, L4, L5; slight anterior displacement L4 on L5. - Symptomatic menopausal or female climacteric states - Unspecified asthma(493.90) - Unspecified hemorrhoids without mention of complication Hemorrhoids - Urge incontinence 02/01/2005 - VENOUS THROMBOSIS LOWER EXTREMITY NOS 10/30/2006 Post op left knee arthroscopy; ?PE at that time Current Outpatient Prescriptions: omeprazole (PRILOSEC) 20 mg capsule TAKE ONE CAPSULE BY MOUTH DAILY 1/2 HOUR BEFORE BREAKFAST metFORMIN (GLUCOPHAGE) 500 mg tablet take 1 tablet by mouth every morning WITH BREAKFAST COMPOUNDED PRESCRIPTION Sitz bath simvastatin (ZOCOR) 20 mg tablet take 1 tablet by mouth at bedtime warfarin (COUMADIN) 5 mg tablet Take 1 tablet by mouth daily as directed. fluticasone-salmeterol (ADVAIR DISKUS) 100-50 mcg/dose dsdv Inhale 1 Puff as instructed twice daily. as directed Blood-Glucose Meter monitoring kit Glucose Meter of Choice - Kit - Dx: Type 2 DM - Uncontrolled E11.9 blood sugar diagnostic (BLOOD GLUCOSE TEST) test strip Test blood sugar(s) 2 times daily. Dx: Type 2 DM - Uncontrolled E11.9 Insulin: No Lancets lancets Test blood sugar(s) 2 times daily. Dx: Type 2 DM - Uncontrolled E11.9 Insulin: No Estradiol (YUVAFEM) 10 mcg tab vaginal tablet Use 1 tablet vaginally every Saturday and Saturday. Levocetirizine (XYZAL) 5 mg tablet Take 1 tablet by mouth once daily. traMADol (ULTRAM) 50 mg tablet Take 1 tablet by mouth twice daily as needed for Pain. ASCORBIC ACID/BIOFLAVONOIDS (MELANIE C ORAL) Take 1 tablet by mouth once daily. oxybutynin XL (DITROPAN XL) 10 mg 24 hr tablet Take 1 tablet by mouth once daily. albuterol HFA (PROVENTIL HFA) 90 mcg/actuation inhaler Inhale 2 Puffs as instructed every 4 hours as needed for Wheezing/Shortness of Breath. MAY GIVE AVAILABLE EQUIVALENT ALBUTEROL HFA INHALER Calcium-Cholecalciferol, D3, (CALCIUM 500 + D, D3,) 500-125 mg-unit ORAL Tab Take two(2) tablets twice daily. [place]-3 Fatty Acids-Vitamin E (FISH OIL) 1,000 mg ORAL Cap Take 3 pills once daily (?dose) THERAPEUTIC MULTIVITAMIN ORAL TAB Take one(1) tablet daily. gabapentin (NEURONTIN) 800 mg tablet Take 1 tablet by mouth three times daily. No current facility-administered medications for this visit. ALLERGIES Allergen Reactions - Chlorhexidine Itching - Cotton Other: See Comments eyes become red and headache - Darvon [Propoxyphen* Mental Status Change - Feathers Other: See Comments eyes become red and headache - Grass Pollen Itching - Morphine Mental Status Change - Vinegar Other: See Comments eyes become red and headache - Wool Other: See Comments eyes become red and headache PAST SURGICAL HISTORY Procedure Laterality Date - DELIVERY ONLY 1988 , low cervical - COLONOSCOPY 03/25/01 R Cebul - hyperplastic polyp - COLONOSCOPY W/BX 05/17/11 repeat - [facility]BX 05/17/11 - FILTER PLACEMENT (VENA CAVA) 11-03-12 - HEMORRHOIDECT INTER/EXTER SIMP 03/27/01 - KNEE SCOPE,DIAGNOSTIC Left 05/10/2003 Arthroscopy, knee Left - L'SCOPE DX W/WO BRUSHINGS/WASHINGS 1999 Laparoscopy - LAMINECTOMY,LUMBAR 1994 Back surgery - LAMINECTOMY,LUMBAR 11/05/2012 Laminectomy, lumbar - LIGATE FALLOPIAN TUBE 1988 Tubal ligation - OPEN RX ANKLE DISLOCATN+FIXATN 1986 ORIF Ankle - PAST SURGICAL HISTORY OF 2004 Thumb bilateral - PAST SURGICAL HISTORY OF Left 07/2006 partial knee replacement left - PAST SURGICAL HISTORY OF Right 2008 repair knee cap - PAST SURGICAL HISTORY OF 03/26/2014 transurethral resection of bladder lesion. vaginal sling. Dr. Almendarez - REMOVAL OF OVARY/TUBE(S) 1999 Salpingo-oophorectomy bilateral - RETRIEV INTRAVASC FOREGN BODY 01/30/13 filter removal - TOTAL ABDOM HYSTERECTOMY 1999 AANDP REPAIR hyst for benign reason - TOTAL KNEE REPLACEMENT Right 2009 right knee replacement FAMILY HISTORY Problem Relation Age of Onset - Blood Disease Mother blood clot, coumadin - Hypertension Mother - Coronary Artery Disease Mother 84 - Cancer Father poss bladder - Prostate Cancer Father - None Sister - None Sister - None Sister - Diabetes Paternal Grandmother - Colon Cancer Paternal Grandmother - Stroke Paternal Grandfather - Diabetes Paternal Grandfather - Cancer Maternal Grandfather LEUKEMIA - Cancer Maternal Uncle - Psychiatry Sister anxiety Social History Marital status: Spouse name: Dot Years of education: 12 Number of children: 3 Occupational History 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 Feels safe. Uses cane. Drives. REVIEW OF SYSTEMS: CONSTITUTIONAL: No fevers, chills, nightsweats, unintended weight loss HEENT: Denies frequent or severe heaches, nasal congestion/sinus symptoms, problematic allergy problems. EYES: No diplopia or blurry vision. CARDIOVASCULAR: No chest pain, dyspnea, palpitations, orthopnea, PND, ankle edema. PULM: No dyspnea, unexplained cough. GI: No dysphagia/odynophagia, problematic reflux, constipation, diarrhea, changes in stool habits, hematochezia, melena. : No new urinary complaints, including dysuria, gross hematuria or pyuria. NEURO: No new balance problems, peripheral weakness/paresthesias or numbness of concern. MUSC-SKEL: No new joint pain, swelling, or erythema. PSY: No concerns regarding depression, anxiety or panic. INTEGUMENTARY: No new skin changes (rash, new or changing mole, new growth) Physical Exam: Constitutional: Pt is a well developed 66 year old female who is alert, oriented and cooperative Eyes: Following during examination. No redness or drainage. Respiratory: RR normal and nonlabored. Even breathing. No evidence of distress or shortness of breath. Psychology: Patient is engaged during conversation. Normal affect and mood. Does not appear depressed or anxious during encounter. Vascular: Dorsalis pedis and posterior tibial pulses palpable left Capillary Fill time < 5 seconds to digits 1-5 left Skin temperature warm to warm proximal to distal left Hair growth present to digits Neurological: diminished light touch/epicritic sensation Dermatological: Nails 1-5 left appear normal. Webspaces clean and dry 1-4 left. Skin appears well hydrated and supple. good color, texture, turgor. Callosities absent. Open lesions absent. Wound: Not present. Musculoskeletal/Orthopaedic: Patient has pain to palpation of left midfoot. There is pes planus deformity of left foot with abduction of forefoot. No swelling, no warmth, no findings of plantar arch collapse. Foot type is pronated structurally AJ ROM is full with knee extended and flexed 1st MPJ is full when loaded and no pain or crepitus are noted with ROM. MTJ, STJ are full and free of pain and crepitus. +5/5 muscle strength dorsiflexion, plantarflexion, inversion, eversion b/l Radiographs: ordered ASSESSMENT: (S93.325D) Dislocation of tarsometatarsal joint of left foot, subsequent encounter (primary encounter diagnosis) (M14.672) Charcot's joint of left foot (E11.49) Other diabetic neurological complication associated with type 2 diabetes mellitus (HCC) PLAN: 1. History and physical examination performed. 2. Patient was examined and informed of current findings 3. Again discussed her midfoot pain. Discussed risk of deformity due to charcot, trauma vs arthritis. Again discussed treatment options not limited to afo vs surgery. Patient tells me she has no desire to do surgery. She only desires to continue with afo. Will have her use her current afo until she recieves new device. No skin sores today 4. Will repeat xray today 5. F/u in1 month JESSICA Lee Observed: 10/04/2017 Status: COMPLETED Source: [facility] 7:40 AM [facility] Office Visit (PODIWS) ANNETTE COMBS ([id number]) 1950 F Date Time Provider Department 10/04/17 7:40 AM ALEXANDRU TOURE During your visit today, we recorded the following information about you: Alexandru Toure DPM 10/04/2017 8:41 AM Signed ? Alexandru Toure DPM Department of Podiatry [address] [facility] [address] Dept: [phone] Dept 10/04/2017 Follow Up Podiatric Office Visit: HPI: Annette Combs is a 66 year old female. Patient presents to follow up on Left TMTJ disclocation. She is 7 weeks, 4 days post injury. Patient complains of pain in her L foot. Pain is rated at 9/10, and described as stabbing. She states it has been going on for awhile. Patient is wearing her old AFO. She had an appointment with Malika on Saturday and states that they are waiting on insurance approval of brace. Patient is not interested in any surgery. 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 Almendarez - Nontraumatic rupture of patellar tendon July 2007; sugical repair 07/29/[address] Devries - Other and unspecified hyperlipidemia 06/20/2012 - Other pulmonary embolism and infarction - PULM EMBOLISM/INFARCT NOS - Scoliosis Xray from [facility] 08/03/11 showed; also has narrowing L3-L4 and L4- L5; DJD L3, L4, L5; slight anterior displacement L4 on L5. - Symptomatic menopausal or female climacteric states - Unspecified asthma(493.90) - Unspecified hemorrhoids without mention of complication Hemorrhoids - Urge incontinence 02/01/2005 - VENOUS THROMBOSIS LOWER EXTREMITY NOS 10/30/2006 Post op left knee arthroscopy; ?PE at that time Current Outpatient Prescriptions: omeprazole (PRILOSEC) 20 mg capsule TAKE ONE CAPSULE BY MOUTH DAILY 1/2 HOUR BEFORE BREAKFAST metFORMIN (GLUCOPHAGE) 500 mg tablet take 1 tablet by mouth every morning WITH BREAKFAST COMPOUNDED PRESCRIPTION Sitz bath simvastatin (ZOCOR) 20 mg tablet take 1 tablet by mouth at bedtime warfarin (COUMADIN) 5 mg tablet Take 1 tablet by mouth daily as directed. fluticasone-salmeterol (ADVAIR DISKUS) 100-50 mcg/dose dsdv Inhale 1 Puff as instructed twice daily. as directed Blood-Glucose Meter monitoring kit Glucose Meter of Choice - Kit - Dx: Type 2 DM - Uncontrolled E11.9 blood sugar diagnostic (BLOOD GLUCOSE TEST) test strip Test blood sugar(s) 2 times daily. Dx: Type 2 DM - Uncontrolled E11.9 Insulin: No Lancets lancets Test blood sugar(s) 2 times daily. Dx: Type 2 DM - Uncontrolled E11.9 Insulin: No Estradiol (YUVAFEM) 10 mcg tab vaginal tablet Use 1 tablet vaginally every Saturday and Saturday. Levocetirizine (XYZAL) 5 mg tablet Take 1 tablet by mouth once daily. traMADol (ULTRAM) 50 mg tablet Take 1 tablet by mouth twice daily as needed for Pain. ASCORBIC ACID/BIOFLAVONOIDS (MELANIE C ORAL) Take 1 tablet by mouth once daily. oxybutynin XL (DITROPAN XL) 10 mg 24 hr tablet Take 1 tablet by mouth once daily. albuterol HFA (PROVENTIL HFA) 90 mcg/actuation inhaler Inhale 2 Puffs as instructed every 4 hours as needed for Wheezing/Shortness of Breath. MAY GIVE AVAILABLE EQUIVALENT ALBUTEROL HFA INHALER Calcium-Cholecalciferol, D3, (CALCIUM 500 + D, D3,) 500-125 mg-unit ORAL Tab Take two(2) tablets twice daily. [place]-3 Fatty Acids-Vitamin E (FISH OIL) 1,000 mg ORAL Cap Take 3 pills once daily (?dose) THERAPEUTIC MULTIVITAMIN ORAL TAB Take one(1) tablet daily. gabapentin (NEURONTIN) 800 mg tablet Take 1 tablet by mouth three times daily. No current facility-administered medications for this visit. ALLERGIES Allergen Reactions - Chlorhexidine Itching - Cotton Other: See Comments eyes become red and headache - Darvon [Propoxyphen* Mental Status Change - Feathers Other: See Comments eyes become red and headache - Grass Pollen Itching - Morphine Mental Status Change - Vinegar Other: See Comments eyes become red and headache - Wool Other: See Comments eyes become red and headache PAST SURGICAL HISTORY Procedure Laterality Date - DELIVERY ONLY 1988 , low cervical - COLONOSCOPY 03/25/01 R Cebul - hyperplastic polyp - COLONOSCOPY W/BX 05/17/11 repeat - EGD W/O BRSH SPECIMEN W/BX 05/17/11 - FILTER PLACEMENT (VENA CAVA) 11-03-12 - HEMORRHOIDECT INTER/EXTER SIMP 03/27/01 - KNEE SCOPE,DIAGNOSTIC Left 05/10/2003 Arthroscopy, knee Left - L'SCOPE DX W/WO BRUSHINGS/WASHINGS 1999 Laparoscopy - LAMINECTOMY,LUMBAR 1994 Back surgery - LAMINECTOMY,LUMBAR 11/05/2012 Laminectomy, lumbar - LIGATE FALLOPIAN TUBE 1988 Tubal ligation - OPEN RX ANKLE DISLOCATN+FIXATN 1986 ORIF Ankle - PAST SURGICAL HISTORY OF 2003 Thumb bilateral - PAST SURGICAL HISTORY OF Left 07/2006 partial knee replacement left - PAST SURGICAL HISTORY OF Right 2008 repair knee cap - PAST SURGICAL HISTORY OF 03/26/2014 transurethral resection of bladder lesion. vaginal sling. Dr. Almendarez - REMOVAL OF OVARY/TUBE(S) 1999 Salpingo-oophorectomy bilateral - RETRIEV INTRAVASC FOREGN BODY 01/30/13 filter removal - TOTAL ABDOM HYSTERECTOMY 1999 AANDP REPAIR hyst for benign reason - TOTAL KNEE REPLACEMENT Right 2009 right knee replacement FAMILY HISTORY Problem Relation Age of Onset - Blood Disease Mother blood clot, coumadin - Hypertension Mother - Coronary Artery Disease Mother 84 - Cancer Father poss bladder - Prostate Cancer Father - None Sister - None Sister - None Sister - Diabetes Paternal Grandmother - Colon Cancer Paternal Grandmother - Stroke Paternal Grandfather - Diabetes Paternal Grandfather - Cancer Maternal Grandfather LEUKEMIA - Cancer Maternal Uncle - Psychiatry Sister anxiety Social History Marital status: Spouse name: Dot Years of education: 12 Number of children: 3 Occupational History 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 Feels safe. Uses cane. Drives. REVIEW OF SYSTEMS: CONSTITUTIONAL: No fevers, chills, nightsweats, unintended weight loss HEENT: Denies frequent or severe heaches, nasal congestion/sinus symptoms, problematic allergy problems. EYES: No diplopia or blurry vision. CARDIOVASCULAR: No chest pain, dyspnea, palpitations, orthopnea, PND, ankle edema. PULM: No dyspnea, unexplained cough. GI: No dysphagia/odynophagia, problematic reflux, constipation, diarrhea, changes in stool habits, hematochezia, melena. : No new urinary complaints, including dysuria, gross hematuria or pyuria. NEURO: No new balance problems, peripheral weakness/paresthesias or numbness of concern. MUSC-SKEL: No new joint pain, swelling, or erythema. PSY: No concerns regarding depression, anxiety or panic. INTEGUMENTARY: No new skin changes (rash, new or changing mole, new growth) Physical Exam: Constitutional: Pt is a well developed 66 year old female who is alert, oriented and cooperative Eyes: Following during examination. No redness or drainage. Respiratory: RR normal and nonlabored. Even breathing. No evidence of distress or shortness of breath. Psychology: Patient is engaged during conversation. Normal affect and mood. Does not appear depressed or anxious during encounter. Vascular: Dorsalis pedis and posterior tibial pulses palpable left Capillary Fill time < 5 seconds to digits 1-5 left Skin temperature warm to warm proximal to distal left Hair growth present to digits Neurological: diminished light touch/epicritic sensation Dermatological: Nails 1-5 left appear normal. Webspaces clean and dry 1-4 left. Skin appears well hydrated and supple. good color, texture, turgor. Callosities absent. Open lesions absent. Wound: Not present. Musculoskeletal/Orthopaedic: Patient has pain to palpation of left midfoot. There is pes planus deformity of left foot with abduction of forefoot. No swelling, no warmth, no findings of plantar arch collapse. Foot type is pronated structurally AJ ROM is full with knee extended and flexed 1st MPJ is full when loaded and no pain or crepitus are noted with ROM. MTJ, STJ are full and free of pain and crepitus. +5/5 muscle strength dorsiflexion, plantarflexion, inversion, eversion b/l Radiographs: ordered ASSESSMENT: (S93.325D) Dislocation of tarsometatarsal joint of left foot, subsequent encounter (primary encounter diagnosis) (M14.672) Charcot's joint of left foot (E11.49) Other diabetic neurological complication associated with type 2 diabetes mellitus (HCC) PLAN: 1. History and physical examination performed. 2. Patient was examined and informed of current findings 3. Again discussed her midfoot pain. Discussed risk of deformity due to charcot, trauma vs arthritis. Again discussed treatment options not limited to afo vs surgery. Patient tells me she has no desire to do surgery. She only desires to continue with afo. Will have her use her current afo until she recieves new device. No skin sores today 4. Will repeat xray today 5. F/u in1 month JESSICA Lee RN 10/04/2017 8:18 AM Signed Continue brace. Referring Provider: ALEXANDRU TOURE [[id number]] Allergies As of Date: 10/04/2017 Noted Allergy Reaction CHLORHEXIDINE 05/21/2013 9 - Itching COTTON 10/12/2004 14 - Other: See Comments Comments: eyes become red and headache DARVON (PROPOXYPHENE HCL) 04/20/2008 1 - Mental Status Change FEATHERS 10/12/2004 14 - Other: See Comments Comments: eyes become red and headache GRASS POLLEN 10/08/2012 9 - Itching MORPHINE 04/20/2008 1 - Mental Status Change VINEGAR 10/12/2004 14 - Other: See Comments Comments: eyes become red and headache WOOL 10/12/2004 14 - Other: See Comments Comments: eyes become red and headache Date Reviewed: 10/04/2017 Reviewed by: Paty Gant RN - Fully Assessed Reason for Visit: Follow Up [171] Primary Visit Diagnosis:Dislocation of tarsometatarsal joint of left foot, subsequent encounter [S93.325D] Other Visit Diagnoses:Charcot's joint of left foot [M14.672] Other diabetic neurological complication associated with type 2 diabetes mellitus (HCC) [E11.49] Order(s):XR FOOT GENERAL 3V AP/LAT/OBL LT [[id number]] Order #: [id number] FUTURE Prescriptions as of 10/04/2017 Sig: OMEPRAZOLE 20 MG CAPSULE,AILYN* TAKE ONE CAPSULE BY MOUTH MIKE* METFORMIN 500 MG TABLET take 1 tablet by mouth every * COMPOUNDED PRESCRIPTION Sitz bath SIMVASTATIN 20 MG TABLET take 1 tablet by mouth at bed* WARFARIN 5 MG TABLET Take 1 tablet by mouth daily * FLUTICASONE 100 MCG-SALMETERO* Inhale 1 Puff as instructed t* BLOOD-GLUCOSE METER KIT Glucose Meter of Choice - Kit* BLOOD SUGAR DIAGNOSTIC STRIPS Test blood sugar(s) 2 times d* LANCETS Test blood sugar(s) 2 times d* ESTRADIOL 10 MCG VAGINAL TABL* Use 1 tablet vaginally every * LEVOCETIRIZINE 5 MG TABLET Take 1 tablet by mouth once d* TRAMADOL 50 MG TABLET Take 1 tablet by mouth twice * MELANIE C ORAL Take 1 tablet by mouth once d* OXYBUTYNIN CHLORIDE ER 10 MG * Take 1 tablet by mouth once d* ALBUTEROL SULFATE HFA 90 MCG/* Inhale 2 Puffs as instructed * CALCIUM CARBONATE 500 MG (1,2* Take two(2) tablets twice mike* OMEGA-3 FATTY ACIDS-VITAMIN E* Take 3 pills once daily (?dos* THERAPEUTIC MULTIVITAMIN TABL* Take one(1) tablet daily. GABAPENTIN 800 MG TABLET Take 1 tablet by mouth three * Problem List As Of Date 10/04/2017 Noted Resolved Unspecified tinnitus [H93.19] 03/11/2012 Allergic rhinitis, cause unspecified [J30.9] GENERAL OSTEOARTHROSIS [M15.9] Carpal tunnel syndrome [G56.00] 03/11/2012 Dizziness and giddiness [R42] 03/11/2012 Contusion of unspecified part of trunk [S20.20X* 03/11/2012 Acute, but ill-defined, cerebrovascular disease* 03/11/2012 Other specified disorder of bladder [596.8] INVALID FOR*03/11/2012 Urge incontinence [N39.41] INVALID FOR*10/28/2014 Dermatophytosis of nail [B35.1] INVALID FOR*03/11/2012 Asthma [J45.909] BONE AND CARTILAGE DIS NOS [M89.9, M94.9] INVALID FOR* Other pulmonary embolism and infarction [I26.99] 03/11/2012 KNEE JOINT REPLACEMENT STATUS [Z96.659] INVALID FOR* Chronic deep vein thrombosis (DVT) of proximal *INVALID FOR* More... Symptomatic menopausal or female climacteric st*INVALID FOR*03/11/2012 Anxiety state, unspecified [F41.1] INVALID FOR*03/11/2012 Urgency of urination [R39.15] INVALID FOR*03/11/2012 Microscopic hematuria [R31.29] INVALID FOR*03/11/2012 Gross hematuria [R31.0] INVALID FOR*03/11/2012 DVT (deep venous thrombosis) [I82.409] INVALID FOR*03/11/2012 Osteoarthritis of basilar joint of thumb, left *INVALID FOR*03/11/2012 More... Degenerative joint disease of right knee [M17.1*INVALID FOR*03/11/2012 More... Lung nodule [R91.1] INVALID FOR*03/11/2012 More... Overlapping toe [M20.5X9] INVALID FOR*03/11/2012 More... Foot drop, left [M21.372] INVALID FOR* Other hammer toe (acquired) [M20.40] INVALID FOR*10/21/2013 Diarrhea [R19.7] INVALID FOR*03/11/2012 Anemia, unspecified [D64.9] INVALID FOR*03/11/2012 Dermatofibroma of right lower leg [D23.71] INVALID FOR*03/11/2012 Scar condition and fibrosis of skin [L90.5] INVALID FOR*03/11/2012 Other seborrheic keratosis [L82.1] INVALID FOR*03/11/2012 Melanocytic nevi of trunk: back [D22.5] INVALID FOR*10/28/2014 Other acne [L70.8] INVALID FOR*03/11/2012 Granuloma of hair follicle [L98.0] INVALID FOR*03/11/2012 Excoriation [T14.8XXA] INVALID FOR*03/11/2012 Actinic skin damage [L57.8] INVALID FOR*10/28/2014 Colitis, collagenous [K52.831] INVALID FOR*03/11/2012 Scoliosis [M41.9] 03/11/2012 More... Degenerative lumbar spinal stenosis [M48.061] INVALID FOR* More... 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 Mixed incontinence [N39.46] INVALID FOR* More... Spondylolisthesis of lumbar region [M43.16] INVALID FOR*11/08/2016 Gastroesophageal reflux disease [K21.9] INVALID FOR* Postlaminectomy syndrome [M96.1] INVALID FOR* Postmenopausal atrophic vaginitis [N95.2] INVALID FOR* Controlled type 2 diabetes mellitus with compli*INVALID FOR* Cognitive impairment [R41.89] INVALID FOR* CKD (chronic kidney disease) stage 3, GFR 30-59*INVALID FOR* Pain in left foot [M79.672] INVALID FOR* Other instructions from your clinician: Continue brace. Disposition: Return in about 1 month (around 11/04/2017) for L foot. Follow-up and Disposition History Recorded Encounter Status:Closed by ALEXANDRU TOURE DPM on 10/04/17 DISCHARGE SUMMARY Observed: 10/03/2017 Status: F Source: [place] 3:22 PM [facility] REPOSITORY [facility] Medical Records Department [address] [place] [address] Discharge Summary 10/02/17 1433 MR#: [id number] Acct: [id number] Name: ANNETTE COMBS Rep #: [id number] : 1950 66 From: Cheryl Gates MD PCP: Bernardo Alfaro MD Status: DIS SIMONE Y Location: [place] [address] Discharge Date and Diagnosis Date of Admission: 10/01/17 Date of Discharge: 10/02/17 - Primary Discharge Diagnosis Active and Suspected Problems (Last Updated 10/01/17 @ 11:33 by Manan Gallagher DO) Syncope (Acute), vasovagal Hospital Course and Treatment None Operations: None Procedures: None Summary of Care Provided: 66 y/o female with past medical history of DVT who comes in after a syncopal episode. Patient was getting fitted for an ankle brace for her left foot drop when she started feeling warm and started down and had a syncopal episode. No history of seizures. 1. Syncope, likely vasovagal, orthostatic vitals were negative, troponins are negative, patient was encouraged to increase her fluid intake, and follow-up with her primary within 2 weeks. 2. 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 3. H/o foot drop, on ankle brace by [employer] Discharge Diet: Low fat/ Low Cholesterol, 2000 mg Sodium Diet Discharge Activity: Return to Normal Activity Home Medications: Medications to take at Discharge Albuterol Sulfate [Proventil Hfa] 6.7 gm IH 4X/DAY 01/29/13 Ascorbic Acid [Vitamin C] 500 mg PO DAILY@0800 01/29/13 Estradiol [Vagifem] 10 mcg VG MOFR 01/29/13 Fluticasone/Salmeterol [Advair 100/50 Diskus] 1 puff INHALATION BID 01/29/13 Multivitamins,Therapeutic [Multivitamin] 1 tablet PO DAILY 01/29/13 Simvastatin [Zocor] 20 mg PO QHS 01/29/13 Warfarin [Coumadin] 7.5 mg PO MOWEFR 01/29/13 Acetaminophen [Tylenol] 500 mg PO Q4H PRN PRN 03/19/14 Docusate Sodium [Colace] 100 mg PO BID 03/19/14 Warfarin [Coumadin] 5 mg PO SUTUTHSA 03/19/14 Calcium Carbonate/Vitamin D3 [Calcium 500-Vit D3 200 Tablet] 2 each PO BID 10/01/17 Levocetirizine Dihydrochloride [Xyzal] 5 mg PO DAILY 10/01/17 Loperamide [Imodium] 2 mg PO Q6H PRN PRN 10/01/17 Metformin HCl [Glucophage] 500 mg PO DAILY 10/01/17 [place]-3 Fatty Acids/Fish Oil [Fish Oil 1,000 mg Capsule] 3 each PO DAILY 10/01/17 Omeprazole [Prilosec] 20 mg PO DAILY 10/01/17 Oxybutynin Chloride [Ditropan Xl] 10 mg PO DAILY 10/01/17 traMADol [Ultram] 50 mg PO BID PRN PRN 10/01/17 Ferrous Gluconate 325 mg PO DAILYCM #30 tab 10/02/17 Gabapentin [Neurontin] 400 mg PO TIDCM #90 cap 10/02/17 Following Prescrptions Were Given to Patient: Ferrous Gluconate 325 mg PO DAILYCM #30 tab Gabapentin [Neurontin] 400 mg PO TIDCM #90 cap Primary Care Physician: Bernardo Alfaro MD [Primary Care Provider] - Please follow up with your Primary Care Physician in: within 2 weeks Disposition: Home Minutes spent on discharge:: 40 Patient Condition:: Stable Medical Necessity - Tobacco Use Smoking Status: Former smoker Tobacco Use: Non-smoker Meaningful Use Info Meaningful Use Diagnoses (Choose all that apply): None applicable Code Visit Inpatient E AND M: 34683 Subs Hosp L2 10/03/17 1522 <Electronically signed by Cheryl Gates MD> Date Cheryl Gates MD Cosigner Signature (if applicable): Date CC: Cheryl Gates MD; Bernardo Alfaro MD Signed DISCHARGE INSTRUCTION Observed: 10/02/2017 Status: F Source: [place] 2:33 PM [facility] REPOSITORY [facility] Medical Records Department [address] [place] [address] Instructions for Home/Discharge Instructions 10/02/17 1426 MR#: [id number] Acct: [id number] Name: ANNETTE COMBS Rep #: [id number] : 1950 66 From: Cheryl Gates MD PCP: Bernardo Alfaro MD Status: ADM SIMONE - Discharge Diagnoses Current Active Problems: Current Active and Chronic Problems (Last Updated 10/01/17 @ 11:33 by Manan Gallagher DO) Syncope (Acute) Reason(s) for Visit for Discharge Instructions: Syncope You will use the following diet at home:: Regular Your food should be the consistency of: Regular Your liquids should be the consistency of: Regular/Thin Discharge Activity: Return to Normal Activity Additional Instructions: Note changes to your medications. Keep yourself hydrated all the time. Continue to use your assistive device for your foot drop. Continue to check your INR as scheduled previously with your PCP. Allergies/Adverse Reactions: Allergies morphine Allergy (Verified 10/01/17 09:37) Unknown oxycodone HCl [From OxyContin] Allergy (Verified 10/01/17 09:37) Unknown propoxyphene HCl [From Darvon] Allergy (Verified 10/01/17 09:37) Unknown chlorhexidine Adverse Reaction (Verified 10/01/17 09:37) Rash cotton Allergy (Uncoded 10/01/17 09:37) Unknown grass Allergy (Uncoded 10/01/17 09:37) Unknown vinegar Allergy (Uncoded 10/01/17 09:37) Unknown wool Allergy (Uncoded 10/01/17 09:37) Unknown feathers Adverse Reaction (Uncoded 10/01/17 09:37) Unknown Medications to take at Discharge Albuterol Sulfate [Proventil Hfa] 6.7 gm IH 4X/DAY 01/29/13 Ascorbic Acid [Vitamin C] 500 mg PO DAILY@0800 01/29/13 Estradiol [Vagifem] 10 mcg VG MOFR 01/29/13 Fluticasone/Salmeterol [Advair 100/50 Diskus] 1 puff INHALATION BID 12/12/13 Multivitamins,Therapeutic [Multivitamin] 1 tablet PO DAILY 01/29/13 Simvastatin [Zocor] 20 mg PO QHS 01/29/13 Warfarin [Coumadin] 7.5 mg PO MOWEFR 01/29/13 Acetaminophen [Tylenol] 500 mg PO Q4H PRN PRN 03/19/14 Docusate Sodium [Colace] 100 mg PO BID 03/19/14 Warfarin [Coumadin] 5 mg PO SUTUTHSA 03/19/14 Calcium Carbonate/Vitamin D3 [Calcium 500-Vit D3 200 Tablet] 2 each PO BID 10/01/17 Levocetirizine Dihydrochloride [Xyzal] 5 mg PO DAILY 10/01/17 Loperamide [Imodium] 2 mg PO Q6H PRN PRN 10/01/17 Metformin HCl [Glucophage] 500 mg PO DAILY 10/01/17 [place]-3 Fatty Acids/Fish Oil [Fish Oil 1,000 mg Capsule] 3 each PO DAILY 10/01/17 Omeprazole [Prilosec] 20 mg PO DAILY 10/01/17 Oxybutynin Chloride [Ditropan Xl] 10 mg PO DAILY 10/01/17 traMADol [Ultram] 50 mg PO BID PRN PRN 10/01/17 Ferrous Gluconate 325 mg PO DAILYCM #30 tab 10/02/17 Gabapentin [Neurontin] 400 mg PO TIDCM #90 cap 10/02/17 The following prescriptions were given: Ferrous Gluconate 325 mg PO DAILYCM #30 tab Gabapentin [Neurontin] 400 mg PO TIDCM #90 cap Primary Care Physician: Bernardo Alfaro MD [Primary Care Provider] - Please follow up with your Primary Care Physician in: within 2 weeks Test Results: Test results from this visit will be discussed in further detail at your follow-up appointment, if applicable. Proposed Discharge Date: 10/02/17 10/02/17 1433 <Electronically signed by Cheryl Gates MD> Date Cheryl Gates MD CC: Bernardo Alfaro MD BEDSIDE GLUCOSE Collected: 10/02/2017 Status: F Source: [place] 12:36 PM [facility] REPOSITORY TYPE CODE TESTS RESULT OUT OF RANGE REFERENCE UNITS LAB L501.080 70-110 mg/dL Normal BEDSIDE GLU 99 Result Comment: MANAGEMENT OF PATIENT CARE PER NURSING PROTOCOL Performed By: #### L501.080 #### [facility] Point of Care [address] [place] [address] 12 LEAD ELECTROCARDIOGRAM Observed: 10/02/2017 Status: F Source: [place] 11:33 AM [facility] REPOSITORY [facility] Cardiovascular Services [address] [place] [address] 12 Lead EKG 10/01/17 0936 MR#: [id number] Acct: [id number] Name: ANNETTE COMBS Rep #: [id number] : 1950 66 From: Micky Bateman MD Attending Dr: Cheryl Gates MD Status: ADM SIMONE Ordering Dr: Pietro Simpson DO Date: 10/01/17 Location: U Sex: F C Admitted: 10/01/17 Test Reason : SYNCOPE Blood Pressure : / mmHG Vent. Rate : 059 BPM Atrial Rate : 059 BPM P-R Int : 206 ms QRS Dur : 082 ms QT Int : 448 ms P-R-T Axes : 046 041 028 degrees QTc Int : 443 ms Sinus bradycardia Otherwise normal ECG Confirmed by ZEENAT TORRES, MICKY ([id number]), industrial editor EMMA MERCER ([id number]) on 10/02/2017 11:33:22 AM Referred By: Confirmed By:MICKY BATEMAN MD 10/02/17 1133 Date Micky Bateman MD CC: Cheryl Gates MD; Pietro Simpson DO; Bernardo Alfaro MD Signed BEDSIDE GLUCOSE Collected: 10/02/2017 Status: F Source: [place] 6:58 AM [facility] REPOSITORY TYPE CODE TESTS RESULT OUT OF RANGE REFERENCE UNITS LAB L501.080 70-110 mg/dL Normal BEDSIDE GLU 106 Result Comment: MANAGEMENT OF PATIENT CARE PER NURSING PROTOCOL Performed By: #### L501.080 #### [facility] Point of Care [address] [place] [address] BASIC METABOLIC Collected: 10/02/2017 Status: F Source: [place] PROFILE (BMP) 6:20 AM [facility] REPOSITORY TYPE CODE TESTS RESULT OUT OF RANGE REFERENCE UNITS LAB L501.0100 74-106 mg/dL High GLU 119 Result Comment: Fasting Glucose result from 100 to 125 mg/dL suggests IMPAIRED HOMEOSTASIS per A.D.A. criteria. Please note revised GLUCOSE reference range effective 2017. LAB L501.1000 7-18 mg/dL High BUN 25 LAB L501.1100 0.55-1.02 mg/dL Normal CREAT,SERUM 0.99 Result Comment: The validity of the calculated GFR AND GFRAA in patients over 70 years has not been determined. Clinical correlation is essential. LAB L501.1110 >60 mL/min Normal EST GFR 60 Result Comment: Non- GFR Calc LAB L501.1115 >60 mL/min Normal EST GFR - AA 72 Result Comment: GFR Calc LAB L501.1255 ml/min Normal Estimated CRCL 42.18 LAB L501.1300 10-20 RATIO High BUN/CRE 25.3 LAB L501.2200 8.5-10 mg/dL Normal .1 CA 8.7 LAB L501.5300 136-14 mmol/L Normal 5 NA 143 LAB L501.5600 3.5-5. mmol/L Normal 1 K 4.3 LAB L501.5900 98-107 mmol/L High CL 111 LAB L501.6100 21.0-3 mmol/L Normal 2.0 CO2 26.0 LAB L501.6200 5-15 Normal GAP 6 Performed By: #### L500.2500 #### [facility] [address] [place], [address] PROTHROMBIN TIME W/INR Collected: 10/02/2017 Status: F Source: [place] 6:20 AM [facility] REPOSITORY TYPE CODE TESTS RESULT OUT OF RANGE REFERENCE UNITS LAB L300.4150 11.7-14.9 SECONDS High PROTIME 23.5 LAB L300.4200 Normal INR 2.1 Performed By: #### L300.3900 #### [facility] [address] [place], [address] BEDSIDE GLUCOSE Collected: 10/01/2017 Status: F Source: [place] 9:55 PM [facility] REPOSITORY TYPE CODE TESTS RESULT OUT OF REFERENCE UNITS RANGE LAB L501.080 70-110 mg/dL High BEDSIDE GLU 166 Result Comment: MANAGEMENT OF PATIENT CARE PER NURSING PROTOCOL Performed By: #### L501.080 #### [facility] Point of Care [address] [place] [address] BEDSIDE GLUCOSE Collected: 10/01/2017 Status: F Source: [place] 4:54 PM [facility] REPOSITORY TYPE CODE TESTS RESULT OUT OF REFERENCE UNITS RANGE LAB L501.080 70-110 mg/dL High BEDSIDE GLU 143 Result Comment: MANAGEMENT OF PATIENT CARE PER NURSING PROTOCOL Performed By: #### L501.080 #### [facility] Point of Care [address] [place] [address] HISTORY AND PHYSICAL Observed: 10/01/2017 Status: F Source: [place] EXAM 4:42 PM [facility] REPOSITORY [facility] Medical Records Department [address] [place] [address] History and Physical 10/01/17 1131 MR#: [id number] Acct: [id number] Name: ANNETTE COMBS Rep #: [id number] : 1950 66 From: Manan Gallagher DO PCP: Bernardo Alfaro MD Status: ADM SIMONE Y Location: [place] [address] ADDENDUM by Manan Gallagher DO on 10/01/17 at 1642 Code Visit Better but not quite back to normal. Second troponin thus far is negative. Plan is to the patient continue the IV fluids and then cycle another troponin and reassess patient on the . The patient is overall feeling better I would anticipate patient being able to be discharged. I did review her telemetry and there has been no events. 10/01/17 1642 <Electronically signed by Manan Gallagher DO> Date Manan Gallagher DO cc: Manan Gallagher DO; Bernardo Alfaro MD * Signed Problem List (1) Syncope Status: Acute Qualifiers: Syncope type: vasovagal syncope Qualified Code(s): R55 - Syncope and collapse History of Present Illness Date of Admission: 10/01/17 Chief Complaint: syncope The patient is a 66 year old F who was in her normal state of health where she had a syncopal episode today. Patient was at [employer] getting fitted for an ankle brace for her dropfoot. Patient was standing up and prior to that was feeling nauseated. Patient then subsequently passed out. No evidence of any tonic-clonic activity. Patient states that she has been eating and drinking well. Blood sugar in the ER was 196. Patient denies any chest pain or any palpitations nor shortness of breath. Patient underwent a workup in the emergency room it just include some lab work creatinine was 1.2 but no baseline available. Patient received IV fluids in the emergency room. Patient still just feels off at this time. No previous syncopal episode in the past. [] Past Medical History Medical History: Medical History (Last Updated 10/01/17 @ 11:33 by Manan Gallagher DO) Chronic bronchitis J42 DM2 (diabetes mellitus, type 2) E11.9 VTE (venous thromboembolism) I82.90 Allergies morphine Allergy (Verified 10/01/17 09:37) Unknown oxycodone HCl [From OxyContin] Allergy (Verified 10/01/17 09:37) Unknown propoxyphene HCl [From Darvon] Allergy (Verified 10/01/17 09:37) Unknown chlorhexidine Adverse Reaction (Verified 10/01/17 09:37) Rash cotton Allergy (Uncoded 10/01/17 09:37) Unknown grass Allergy (Uncoded 10/01/17 09:37) Unknown vinegar Allergy (Uncoded 10/01/17 09:37) Unknown wool Allergy (Uncoded 10/01/17 09:37) Unknown feathers Adverse Reaction (Uncoded 10/01/17 09:37) Unknown Home Medications: Ambulatory Orders Medication Instructions Recorded Albuterol Sulfate [Proventil Hfa] 6.7 gm IH 4X/DAY 01/29/13 Surgical History: arthroscopy, knee, total knee arthroplasty Psychiatric History: No pertinent psych hx Smoking Status: Former smoker Tobacco Use: Non-smoker Alcohol: None Drugs: None - *Family History Maternal History Items: - - no CAD Review of Systems Constitutional: Denies: Anorexia, Chills, Fever, Night Sweats Eyes: Reports: Blurred vision - Just preceding the syncopal event, Double vision HEENT: Reports: Difficulty Hearing, Hard of Hearing Cardiovascular: Reports: Chest Pain, Claudication, Chest Pressure, Chest Tightness Respiratory: Reports: Cough, Shortness of Breath, Shortness of breath at rest, Shortness of breath upon exertion Gastrointestinal: Reports: Abdominal Pain, Constipation, Dyspepsia, Nausea. Denies: Diarrhea, Vomiting Genitourinary: Denies: Dysuria Musculoskeletal: Denies: Joint Pain, Joint Tenderness Skin: Denies: Dryness, Lesions Neurological: Reports: - - Syncope. Denies: Focal weakness, Numbness, Tingling Psychiatric: Denies: Anxiety, Depression Endocrine: Denies: Change in Body Habitus, Heat/ Cold Intolerance Hematologic/ Lymphatic: Reports: Hx of blood clot. Denies: Easy Bruising, Easy Bleeding Comment: All review of systems are negative except as mentioned in the history of present illness and the other review of systems. VTE Information - Inpt Only VTE Present on Admission: No VTE Mechan Device Prophylaxis: None VTE Pharm Prophylaxis ordered?: Yes Patient Problems: Active and Suspected Problems Syncope (Acute) - Physical Exam General: Alert, Cooperative, No apparent distress HEENT: Atraumatic, Normocephalic Oral: Moist Mucosa, No Gingival or Mucosal Lesions/ Ulcerations, - - Edentulous Neck: No Nodes, Thyroid Normal Size and Texture Lungs: Clear to auscultation, Normal air movement, No rhonchi, No wheeze Cardiovascular: Regular rate, Regular Rhythm, Normal S1, Normal S2, No murmurs Abdomen: Bowel Sounds Present, Soft, Non Tender, Non-Distended, No Hepato-splenomegaly Extremities: No edema, No Calf Tenderness Skin: No rashes, No breakdown Neurological: Cranial nerves II-XII grossly intact, Neuro grossly intact, Motor Exam 5/5 strength throughout, Muscle tone normal, Sensory exam intact to light touch and pain Psych/Mental Status: Normal Affect, Appropriate Vital Signs Temp Pulse Resp BP Pulse Ox 36.6 C 61 16 108/76 98 10/01/17 09:33 10/01/17 10:34 10/01/17 10:34 10/01/17 10:34 10/01/17 10:34 Assessment/Plan All Active Problems Syncope (Acute) 1. Vasovagal syncope * Patient noted that she was nauseated previously and this occurred when she was standing up. * We will give the patient IV fluids and cycle her troponins * This patient is feeling better, then we can consider discharging her later on today * Do not feel the patient requires a stroke workup. 2.Venous thromboembolic disease * Continue with Coumadin * Check INR * Hold the patient's vaginal estradiol 3. DVT prophylaxis: Patient is on Coumadin for VTE treatment Discussed with the patient's at bedside Code Visit OBSV E AND M: [id number] Initial observation care L3 10/01/17 1138 <Electronically signed by Manan Gallagher DO> Date Manan Gallagher DO Cosigner Signature: Date (if applicable) CC: Manan Gallagher DO; Bernardo Alfaro MD Signed TROPONIN-I Collected: 10/01/2017 Status: F Source: [facility] 4:33 PM [facility] REPOSITORY TYPE CODE TESTS RESULT OUT OF RANGE REFERENCE UNITS LAB L501.4010 <0.045 ng/mL Normal < 0.015 TROPONIN-I Result Comment: TROPONIN-I EXPECTED VALUES <0.045 Negative 0.045 - 0.590 Consistent with Cardiac Damage > OR = 0.600 Critical Value Not every elevated troponin is indicative of MT. These values should be used with clinical judgement in examining the patient's clinical picture for diagnosis. To establish a diagnosis of MT versus myocardial injury, there must be a demonstrated rise and/or fall in the troponin values, in addition to ischemic symptoms, EKG changes, new regional wall motion abnormality, and/or angiographical evidence. PLEASE NOTE: REFERENCE RANGES EDITED 17 Performed By: #### L501.4010 #### [facility] [address] [place], [address] TROPONIN-I Collected: 10/01/2017 Status: F Source: [facility] 1:47 PM [facility] REPOSITORY TYPE CODE TESTS RESULT OUT OF RANGE REFERENCE UNITS LAB L501.4010 <0.045 ng/mL Normal < 0.015 TROPONIN-I Result Comment: TROPONIN-I EXPECTED VALUES <0.045 Negative 0.045 - 0.590 Consistent with Cardiac Damage > OR = 0.600 Critical Value Not every elevated troponin is indicative of MT. These values should be used with clinical judgement in examining the patient's clinical picture for diagnosis. To establish a diagnosis of MT versus myocardial injury, there must be a demonstrated rise and/or fall in the troponin values, in addition to ischemic symptoms, EKG changes, new regional wall motion abnormality, and/or angiographical evidence. PLEASE NOTE: REFERENCE RANGES EDITED 17 Performed By: #### L501.4010 #### [facility] [address] [place], [address] BEDSIDE GLUCOSE Collected: 10/01/2017 Status: F Source: [facility] 12:42 PM [facility] REPOSITORY TYPE CODE TESTS RESULT OUT OF REFERENCE UNITS RANGE LAB L501.080 70-110 mg/dL High BEDSIDE GLU 129 Result Comment: MANAGEMENT OF PATIENT CARE PER NURSING PROTOCOL Performed By: #### L501.080 #### [facility] Point of Care [address] [place] [address] EMERGENCY DEPARTMENT Observed: 10/01/2017 Status: F Source: [facility] SUMMARY 11:08 AM [facility] REPOSITORY [facility] Medical Records Department [address] [place] [address] Emergency Department Summary 10/01/17 1106 MR#: [id number] Acct: [id number] Name: ANNETTE COMBS Rep #: [id number] : 1950 66 From: Pietro Simpson DO PCP: Bernardo Alfaro MD Status: REG ER - ER Visit Summary Date of Service: 10/01/17 Chief Complaint: [Syncope] History of Present Illness: The patient is a 66 F [presents the emergency department with a syncopal episode that occurred approximately 8:45 AM. Patient states that she was getting fitted for a brace for her left foot when she sat down and her arm started twitching and passed out in her chair for a couple of minutes per her . Patient denies feeling diaphoretic or lightheaded. Patient denies any chest pain or palpitations. Patient's never had an episode like this before. Patient did not sustain any injuries. Patient does have a history of prior stroke, diabetes, high cholesterol, and left foot drop from prior back issues and back surgery. Currently patient is without complaints.] Physical Examination: [HEENT-PERRLA, EOMI. Cranial nerves II through XII grossly intact. TMs clear. Mucous membranes moist. No adenopathy. Cardiovascular-regular rate and rhythm without murmur or ectopy Lungs-clear to auscultation, chest wall stable without crepitus or subcu emphysema Abdomen-normoactive bowel sounds, soft, nontender, no rebound or rigidity, no peritoneal signs. Neuro sfdi-sefejs-jhlg and heel elias testing within normal limits, negative Romberg, negative for drift, fundi benign Extremities-intact 4, normal range of motion, normal pulses, atraumatic] Test Results: [EKG obtained on arrival shows sinus rhythm with a ventricular rate of 59 bpm with no acute I segment changes. CBC with differential is normal. Chemistries showed sodium 142, potassium 4.6, chloride 108, CO2 28, glucose 196, BUN 27, creatinine 1.21. Troponin was less than 0.015. Orthostatic vital signs were negative.] Emergency Department Course and Treatment: Patient had normal saline IV started.] Treatment Plan: [Admit for observation as etiology of syncope unclear] Disposition: [Admit] Impression: [Syncope-etiology uncertain] This note was generated with [employer] dictation software. It may contain incorrect words, spelling, and punctuation that were not noted in review of the chart prior to signing ED Disposition - Plan for ED Patient: Chief Complaint: Syncope Referrals: Bernardo Alfaro MD [Primary Care Provider] - What to do if you have Problems For any increased pain, shortness of breath, bleeding, nausea or vomiting, chest pain, or any unexpected problems, contact your Primary Care Provider. Call [facility] ([phone]) or report to the closest Emergency Room. Call 911 if necessary. 10/01/17 1108 <Electronically signed by Pietro Simpson DO> Date Pietro Simpson DO Cosigner Signature (If Indicated): Date CC: Bernardo Alfaro MD BASIC METABOLIC Collected: 10/01/2017 Status: F Source: [facility] PROFILE ([facility]) 10:14 AM [facility] REPOSITORY TYPE CODE TESTS RESULT OUT OF RANGE REFERENCE UNITS LAB L501.0100 74-106 mg/dL High GLU 196 Result Comment: Fasting Glucose result greater than or equal to 126 mg/dL suggests DIABETES MELLITUS per A.D.A. criteria. Please note revised GLUCOSE reference range effective 2017. LAB L501.1000 7-18 mg/dL High BUN 27 LAB L501.1100 0.55-1.02 mg/dL High CREAT,SERUM 1.21 Result Comment: The validity of the calculated GFR AND GFRAA in patients over 70 years has not been determined. Clinical correlation is essential. LAB L501.1110 >60 mL/min Low EST GFR 47 Result Comment: Non- GFR Calc LAB L501.1115 >60 mL/min Low EST GFR - AA 57 Result Comment: GFR Calc LAB L501.1255 ml/min Normal Estimated CRCL 36.17 LAB L501.1300 10-20 RATIO High BUN/CRE 22.3 LAB L501.2200 8.5-10 mg/dL Normal .1 CA 9.2 LAB L501.5300 136-14 mmol/L Normal 5 NA 142 LAB L501.5600 3.5-5. mmol/L Normal 1 K 4.6 LAB L501.5900 98-107 mmol/L High CL 108 LAB L501.6100 21.0-3 mmol/L Normal 2.0 CO2 28.0 LAB L501.6200 5-15 Normal GAP 6 Performed By: #### L500.2500, L501.4010 #### [facility] [address] [place], [address] TROPONIN-I Collected: 10/01/2017 Status: F Source: [facility] 10:14 AM [facility] REPOSITORY TYPE CODE TESTS RESULT OUT OF RANGE REFERENCE UNITS LAB L501.4010 <0.045 ng/mL Normal < 0.015 TROPONIN-I Result Comment: TROPONIN-I EXPECTED VALUES <0.045 Negative 0.045 - 0.590 Consistent with Cardiac Damage > OR = 0.600 Critical Value Not every elevated troponin is indicative of MT. These values should be used with clinical judgement in examining the patient's clinical picture for diagnosis. To establish a diagnosis of MT versus myocardial injury, there must be a demonstrated rise and/or fall in the troponin values, in addition to ischemic symptoms, EKG changes, new regional wall motion abnormality, and/or angiographical evidence. PLEASE NOTE: REFERENCE RANGES EDITED 17 Performed By: #### L500.2500, L501.4010 #### [facility] [address] [facility] [place], [address] CBC W/DIFF, AUTOMATED Collected: 10/01/2017 Status: F Source: [facility] 10:14 AM [facility] REPOSITORY TYPE CODE TESTS RESULT OUT OF RANGE REFERENCE UNITS LAB L100.1000 4.4-11.0 K/mm3 Normal WBC 4.6 LAB L100.1200 4.2-5.4 M/mm3 Low RBC 3.67 LAB L100.1300 12.0-15.0 g/dl Low HGB 11.1 LAB L100.1400 37-47 % Low HCT 33.8 LAB L100.1500 81-99 fL Normal MCV 92.1 LAB L100.1600 27.0-32.0 pg Normal MCH 30.2 LAB L100.1700 32-36 g/gl Normal MCHC 32.8 LAB L100.1810 11.6-14.6 % Normal RDW CV 13.4 LAB L100.1820 35.1-43.9 fl Normal RDW SD 43.6 LAB L100.1900 150-450 K/mm3 Normal PLT 180 LAB L100.2000 6.2-12.0 fl Normal MPV 8.5 LAB L100.2100 47-70 % Normal NEUT% 49.7 LAB L100.2200 19-41 % Normal LY% 34.1 LAB L100.2300 0-10 % Normal MONO% 9.1 LAB L100.2400 0-5 % High EO% 6.7 LAB L100.2500 0-1 % Normal BASO% 0.2 LAB L100.2550 0.0-0.9 % Normal IM GRAN % 0.200 Result Comment: IG% - Immature Granulocytes (promyelocytes, myelocytes and metamyelocytes) > 1% indicates that a LEFT SHIFT is Present. LAB L100.2620 2.0-7.7 X10 3/uL Normal Absolute Neut 2.3 LAB L100.2720 0.83-4.51 X10 3/ul Normal Absolute Lymph 1.58 Performed By: #### L100.0100 #### [facility] [address] [facility] [place], [address] PROTHROMBIN TIME W/INR Collected: 10/01/2017 Status: F Source: [facility] 10:14 AM [facility] REPOSITORY TYPE CODE TESTS RESULT OUT OF RANGE REFERENCE UNITS LAB L300.4150 11.7-14.9 SECONDS High PROTIME 22.6 LAB L300.4200 Normal INR 2.0 Performed By: #### L300.3900 #### [facility] [address] [place], [address] PROTHROMBIN TIME W/INR Collected: 09/19/2017 Status: F Source: [facility] 6:45 AM [facility] REPOSITORY TYPE CODE TESTS RESULT OUT OF RANGE REFERENCE UNITS LAB L300.4150 11.7-14.9 SECONDS High PROTIME 21.1 LAB L300.4200 Normal INR 1.8 Performed By: #### L300.3900 #### [facility] [address] [place], [address] PROGRESS Observed: 09/13/2017 Status: COMPLETED Source: [place] 9:01 AM [facility] REPOSITORY HNO ID: [id number] Author: Michelle (Rt) Arnoldo Mercer Service: (none) Author Type: [place] Type: Progress Notes Filed: 09/13/2017 9:01 AM Note Text: Radiology Service Progress Note PATIENT NAME: Annette Combs DATE OF SERVICE: September 13, 2017 TIME: 9:01 AM PATIENT IDENTITY VERIFICATION COMPLETED USING TWO (2) METHODS: Patient confirmed name verbally and Date of . PATIENT GENDER DATA: Female. status: : No status: NO. 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 lump on the medial side of the left foot (in the arch), pt fell one 2017 TECHNIQUE: XR FOOT 3V AP/LAT/OBL LT Laterality: LEFT Number of different views (projections): 3 COMPARISON: 08/06/2017 RESULT: Healing fifth metatarsal fracture. Narrowing of PIP and DIP joints of the digits except for the great toe. Lateral subluxation of the second metatarsal at the second tarsometatarsal joint and approximately 3 mm consistent Lisfranc injury. Degenerative changes of first CMC joint with subchondral cyst formation. There is an area of the second tarsometatarsal joint. Small ossicle dorsal to the first tarsometatarsal joint most likely intra-articular body in the joint capsule. Mild soft tissue swelling medial to the first tarsometatarsal joint. Cornuate navicular. Arterial calcifications are present. IMPRESSION: HEALING FIFTH METATARSAL FRACTURE. EVIDENCE FOR LISFRANC INJURY THAT IS REMOTE. DEGENERATIVE CHANGES OF THE FOREFOOT AND MIDFOOT WITH INTRA-ARTICULAR BODY DISTENDED FIRST TARSOMETATARSAL CAPSULE DORSALLY. Instructor Watch Assembly: MARSHALL Transcribe Date/Time: Sep 13 2017 12:31P Dictated by : GERMAN COSTA MD This examination was interpreted and the report reviewed and electronically signed by: GERMAN COSTA MD on Sep 13 2017 12:34PM EST [id number] PROGRESS Observed: 09/13/2017 Status: COMPLETED Source: [place] 8:07 AM [facility] REPOSITORY HNO ID: [id number] Author: Alexandru Toure Service: (none) Author Type: Physician Type: Progress Notes Filed: 09/13/2017 11:55 PM Note Text: ? Alexandru Toure DPM Department of Podiatry [address] [facility] [address] Dept: [phone] Dept 09/13/2017 Follow Up Podiatric Office Visit: HPI: Annette Combs is a 66 year old female. Patient presents 4 wk, 4 day post L TMTJ dislocation vs L Charcot Deformity. Patient reports wearing boot and NWB as much possible. Patient reports intermittent needle jabbing pain to lateral and medial L midfoot. Pain comes and goes at varies times with no exacerbating factors. She was referred to [facility], but unable to see due to providers being out of network with her insurance. Patient reports blood glucose home reading at 117 mg/dL. PCP: Bernardo Alfaro MD PAST MEDICAL HISTORY Diagnosis Date - Acute, but ill-defined, cerebrovascular disease - Allergic rhinitis, cause unspecified Allergic rhinitis - Anal and rectal polyp FIBROPLASTIC - Anemia, unspecified - Colitis, collagenous 09/03/2011 - CVA (cerebral infarction) 90 - Degenerative joint disease of right knee 10/19/2010 - Degenerative lumbar spinal stenosis - DVT (deep venous thrombosis) (HCC) - Generalized osteoarthrosis, unspecified site - KNEE JOINT REPLACEMENT STATUS 09/02/2006 - Left foot drop 01/05/2011 - 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 Almendarez - Nontraumatic rupture of patellar tendon July 2007; sugical repair 07/29/[address] Devries - Other and unspecified hyperlipidemia 06/20/2012 - Other pulmonary embolism and infarction - PULM EMBOLISM/INFARCT NOS - Scoliosis Xray from [facility] 08/03/11 showed; also has narrowing L3-L4 and L4- L5; DJD L3, L4, L5; slight anterior displacement L4 on L5. - Symptomatic menopausal or female climacteric states - Unspecified asthma(493.90) - Unspecified hemorrhoids without mention of complication Hemorrhoids - Urge incontinence 02/01/2005 - VENOUS THROMBOSIS LOWER EXTREMITY NOS 10/30/2006 Post op left knee arthroscopy; ?PE at that time Current Outpatient Prescriptions: COMPOUNDED PRESCRIPTION Sitz bath simvastatin (ZOCOR) 20 mg tablet take 1 tablet by mouth at bedtime gabapentin (NEURONTIN) 800 mg tablet Take 1 tablet by mouth three times daily. warfarin (COUMADIN) 5 mg tablet Take 1 tablet by mouth daily as directed. metFORMIN (GLUCOPHAGE) 500 mg tablet Take 1 tablet by mouth daily with breakfast. For diabetes. fluticasone-salmeterol (ADVAIR DISKUS) 100-50 mcg/dose dsdv Inhale 1 Puff as instructed twice daily. as directed Blood-Glucose Meter monitoring kit Glucose Meter of Choice - Kit - Dx: Type 2 DM - Uncontrolled E11.9 blood sugar diagnostic (BLOOD GLUCOSE TEST) test strip Test blood sugar(s) 2 times daily. Dx: Type 2 DM - Uncontrolled E11.9 Insulin: No Lancets lancets Test blood sugar(s) 2 times daily. Dx: Type 2 DM - Uncontrolled E11.9 Insulin: No Estradiol (YUVAFEM) 10 mcg tab vaginal tablet Use 1 tablet vaginally every Saturday and Saturday. omeprazole (PRILOSEC) 20 mg capsule Take 1 capsule by mouth daily before breakfast. 1/2 hr before meal. Levocetirizine (XYZAL) 5 mg tablet Take 1 tablet by mouth once daily. traMADol (ULTRAM) 50 mg tablet Take 1 tablet by mouth twice daily as needed for Pain. ASCORBIC ACID/BIOFLAVONOIDS (MELANIE C ORAL) Take 1 tablet by mouth once daily. oxybutynin XL (DITROPAN XL) 10 mg 24 hr tablet Take 1 tablet by mouth once daily. albuterol HFA (PROVENTIL HFA) 90 mcg/actuation inhaler Inhale 2 Puffs as instructed every 4 hours as needed for Wheezing/Shortness of Breath. MAY GIVE AVAILABLE EQUIVALENT ALBUTEROL HFA INHALER Calcium-Cholecalciferol, D3, (CALCIUM 500 + D, D3,) 500-125 mg-unit ORAL Tab Take two(2) tablets twice daily. [place]-3 Fatty Acids-Vitamin E (FISH OIL) 1,000 mg ORAL Cap Take 3 pills once daily (?dose) THERAPEUTIC MULTIVITAMIN ORAL TAB Take one(1) tablet daily. No current facility-administered medications for this visit. ALLERGIES Allergen Reactions - Chlorhexidine Itching - Cotton Other: See Comments eyes become red and headache - Darvon [Propoxyphen* Mental Status Change - Feathers Other: See Comments eyes become red and headache - Grass Pollen Itching - Morphine Mental Status Change - Vinegar Other: See Comments eyes become red and headache - Wool Other: See Comments eyes become red and headache PAST SURGICAL HISTORY Procedure Laterality Date - DELIVERY ONLY 1988 , low cervical - COLONOSCOPY 03/25/01 R Cebul - hyperplastic polyp - COLONOSCOPY W/BX 05/17/11 repeat - EGD W/O BRSH SPECIMEN W/BX 05/17/11 - FILTER PLACEMENT (VENA CAVA) 11-03-12 - HEMORRHOIDECT INTER/EXTER SIMP 03/27/01 - KNEE SCOPE,DIAGNOSTIC Left 05/10/2003 Arthroscopy, knee Left - L'SCOPE DX W/WO BRUSHINGS/WASHINGS 1999 Laparoscopy - LAMINECTOMY,LUMBAR 1994 Back surgery - LAMINECTOMY,LUMBAR 11/05/2012 Laminectomy, lumbar - LIGATE FALLOPIAN TUBE 1988 Tubal ligation - OPEN RX ANKLE DISLOCATN+FIXATN 1986 ORIF Ankle - PAST SURGICAL HISTORY OF 2003 Thumb bilateral - PAST SURGICAL HISTORY OF Left 07/2006 partial knee replacement left - PAST SURGICAL HISTORY OF Right 2008 repair knee cap - PAST SURGICAL HISTORY OF 03/26/2014 transurethral resection of bladder lesion. vaginal sling. Dr. Almendarez - REMOVAL OF OVARY/TUBE(S) 1999 Salpingo-oophorectomy bilateral - RETRIEV INTRAVASC FOREGN BODY 01/30/13 filter removal - TOTAL ABDOM HYSTERECTOMY 1999 AANDP REPAIR hyst for benign reason - TOTAL KNEE REPLACEMENT Right 2009 right knee replacement FAMILY HISTORY Problem Relation Age of Onset - Blood Disease Mother blood clot, coumadin - Hypertension Mother - Coronary Artery Disease Mother 84 - Cancer Father poss bladder - Prostate Cancer Father - None Sister - None Sister - None Sister - Diabetes Paternal Grandmother - Colon Cancer Paternal Grandmother - Stroke Paternal Grandfather - Diabetes Paternal Grandfather - Cancer Maternal Grandfather LEUKEMIA - Cancer Maternal Uncle - Psychiatry Sister anxiety Social History Marital status: Spouse name: Dot Years of education: 12 Number of children: 3 Occupational History 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 Feels safe. Uses cane. Drives. REVIEW OF SYSTEMS: CONSTITUTIONAL: No fevers, chills, nightsweats, unintended weight loss HEENT: Denies frequent or severe heaches, nasal congestion/sinus symptoms, problematic allergy problems. EYES: No diplopia or blurry vision. CARDIOVASCULAR: No chest pain, dyspnea, palpitations, orthopnea, PND, ankle edema. PULM: No dyspnea, unexplained cough. GI: No dysphagia/odynophagia, problematic reflux, constipation, diarrhea, changes in stool habits, hematochezia, melena. : No new urinary complaints, including dysuria, gross hematuria or pyuria. NEURO: No new balance problems, peripheral weakness/paresthesias or numbness of concern. MUSC-SKEL: Left foot swelling PSY: No concerns regarding depression, anxiety or panic. INTEGUMENTARY: No new skin changes (rash, new or changing mole, new growth) Physical Exam: Constitutional: Pt is a well developed 66 year old female who is alert, oriented and cooperative Eyes: Following during examination. No redness or drainage. Respiratory: RR normal and nonlabored. Even breathing. No evidence of distress or shortness of breath. Psychology: Patient is engaged during conversation. Normal affect and mood. Does not appear depressed or anxious during encounter. Vascular: Dorsalis pedis and posterior tibial pulses palpable as b/l Capillary Fill time < 5 seconds to digits 1-5 b/l Skin temperature warm to warm proximal to distal b/l Hair growth present to digits Neurological: absent light touch/epicritic sensation Vibratory sensation absent to hallux b/l diminished protective sensation, significant neurological deficits Dermatological: Nails 1-5 b/l appear Normal. Webspaces clean and dry 1-4 b/l. Skin appears well hydrated and supple. good color, texture, turgor. Callosities absent. Open lesions absent. Wound: Not present. Musculoskeletal/Orthopaedic: Patient has no pain to palpation of left foot There is dropfoot of left foot with severely pronated hindfoot of left lower extremity. AJ ROM is full with knee extended and flexed 1st MPJ is decreased when loaded and no pain or crepitus are noted with ROM. MTJ, STJ are full and free of pain and crepitus. +5/5 muscle strength dorsiflexion, plantarflexion, inversion, eversion b/l Radiographs: 3 views of left foot were ordered and reviewed. There is healing fracture of left 5th metatarsal. There is evidence of degenerative arthritis of left midfoot due to remote lis franc dislocation. ASSESSMENT: (E11.610) Charcot foot due to diabetes mellitus (HCC) (primary encounter diagnosis) (S93.325D) Dislocation of tarsometatarsal joint of left foot, subsequent encounter PLAN: Patient was examined and informed of current findings Discussed with her the deformity of her left foot. She has significant dropfoot of left lower extremity and has progressive flatfoot deformity. Further, she has what appears to be severely degenerative arthritis of midfoot with remote lisfranc joint dislocation. Discussed etiology of deformity of midfoot not limited to charcot vs lisfranc trauma. Patient and inform me that her foot has looked like this the past year so I suspect that this xray finding is more related to arthritis and remote lisfranc trauma rather than charcot or acute injury. I have discussed this xray with radiologist. There does not appear to be any destructive processes to suggest a neuroarthritic joint. Certainly in diabetic patient, the etiology of charcot is certainly high. Today we did discuss casting, afo vs surgery. Patient not keen on casting because she has difficult time in house with cast. I have discussed afo. She has old afo. I will order new afo and she can get at [email or web address]. I have had discussion with patient regarding surgery. I have discussed referral to orthopedics for surgical evaluation. I have informed patient that lisfranc diastasis could lead to instability. She understands this but she is not interested in surgery. I have had long discussion with her and her in my office and over the phone. She is not interested in surgery. I will have her continue with boot until she receives new afo. f/u in 3 weeks Alexandru Toure DPM The documentation for this note was completed by Jannet Hooks Ma acting as scribe for Alexandru Toure DPM. September 13, 2017 8:07 AM. I agree with the Chief Complaint, ROS, and Past Histories independently gathered by the clinical sales support consultant and the remaining scribed note accurately describes my personal service to the patient. Alexandru Toure DPM CNOV Observed: 09/13/2017 Status: COMPLETED Source: IDANHA 7:55 AM CLINIC [facility] REPOSITORY Office Visit (PODIWS) ANNETTE COMBS ([id number]) 1950 F Date Time Provider Department 09/13/17 7:55 AM ALEXANDRU TOURE PODIWS During your visit today, we recorded the following information about you: Alxeandru Toure DPM 09/13/2017 11:55 PM Signed ? Alexandru Toure DPM Department of Podiatry [facility] [address] Dept: [phone] Dept 09/13/2017 Follow Up Podiatric Office Visit: HPI: Annette Combs is a 66 year old female. Patient presents 4 wk, 4 day post L TMTJ dislocation vs L Charcot Deformity. Patient reports wearing boot and NWB as much possible. Patient reports intermittent needle jabbing pain to lateral and medial L midfoot. Pain comes and goes at varies times with no exacerbating factors. She was referred to [facility], but unable to see due to providers being out of network with her insurance. Patient reports blood glucose home reading at 117 mg/dL. PCP: Bernardo Alfaro MD PAST MEDICAL HISTORY Diagnosis Date - Acute, but ill-defined, cerebrovascular disease - Allergic rhinitis, cause unspecified Allergic rhinitis - Anal and rectal polyp FIBROPLASTIC - Anemia, unspecified - Colitis, collagenous 09/03/2011 - CVA (cerebral infarction) 90 - Degenerative joint disease of right knee 10/19/2010 - Degenerative lumbar spinal stenosis - DVT (deep venous thrombosis) (HCC) - Generalized osteoarthrosis, unspecified site - KNEE JOINT REPLACEMENT STATUS 09/02/2006 - Left foot drop 01/05/2011 - 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 Almendarez - Nontraumatic rupture of patellar tendon July 2007; sugical repair 07/29/[address] Devries - Other and unspecified hyperlipidemia 06/20/2012 - Other pulmonary embolism and infarction - PULM EMBOLISM/INFARCT NOS - Scoliosis Xray from [facility] 08/03/11 showed; also has narrowing L3-L4 and L4- L5; DJD L3, L4, L5; slight anterior displacement L4 on L5. - Symptomatic menopausal or female climacteric states - Unspecified asthma(493.90) - Unspecified hemorrhoids without mention of complication Hemorrhoids - Urge incontinence 02/01/2005 - VENOUS THROMBOSIS LOWER EXTREMITY NOS 10/30/2006 Post op left knee arthroscopy; ?PE at that time Current Outpatient Prescriptions: COMPOUNDED PRESCRIPTION Sitz bath simvastatin (ZOCOR) 20 mg tablet take 1 tablet by mouth at bedtime gabapentin (NEURONTIN) 800 mg tablet Take 1 tablet by mouth three times daily. warfarin (COUMADIN) 5 mg tablet Take 1 tablet by mouth daily as directed. metFORMIN (GLUCOPHAGE) 500 mg tablet Take 1 tablet by mouth daily with breakfast. For diabetes. fluticasone-salmeterol (ADVAIR DISKUS) 100-50 mcg/dose dsdv Inhale 1 Puff as instructed twice daily. as directed Blood-Glucose Meter monitoring kit Glucose Meter of Choice - Kit - Dx: Type 2 DM - Uncontrolled E11.9 blood sugar diagnostic (BLOOD GLUCOSE TEST) test strip Test blood sugar(s) 2 times daily. Dx: Type 2 DM - Uncontrolled E11.9 Insulin: No Lancets lancets Test blood sugar(s) 2 times daily. Dx: Type 2 DM - Uncontrolled E11.9 Insulin: No Estradiol (YUVAFEM) 10 mcg tab vaginal tablet Use 1 tablet vaginally every Saturday and Saturday. omeprazole (PRILOSEC) 20 mg capsule Take 1 capsule by mouth daily before breakfast. 1/2 hr before meal. Levocetirizine (XYZAL) 5 mg tablet Take 1 tablet by mouth once daily. traMADol (ULTRAM) 50 mg tablet Take 1 tablet by mouth twice daily as needed for Pain. ASCORBIC ACID/BIOFLAVONOIDS (MELANIE C ORAL) Take 1 tablet by mouth once daily. oxybutynin XL (DITROPAN XL) 10 mg 24 hr tablet Take 1 tablet by mouth once daily. albuterol HFA (PROVENTIL HFA) 90 mcg/actuation inhaler Inhale 2 Puffs as instructed every 4 hours as needed for Wheezing/Shortness of Breath. MAY GIVE AVAILABLE EQUIVALENT ALBUTEROL HFA INHALER Calcium-Cholecalciferol, D3, (CALCIUM 500 + D, D3,) 500-125 mg-unit ORAL Tab Take two(2) tablets twice daily. [place]-3 Fatty Acids-Vitamin E (FISH OIL) 1,000 mg ORAL Cap Take 3 pills once daily (?dose) THERAPEUTIC MULTIVITAMIN ORAL TAB Take one(1) tablet daily. No current facility-administered medications for this visit. ALLERGIES Allergen Reactions - Chlorhexidine Itching - Cotton Other: See Comments eyes become red and headache - Darvon [Propoxyphen* Mental Status Change - Feathers Other: See Comments eyes become red and headache - Grass Pollen Itching - Morphine Mental Status Change - Vinegar Other: See Comments eyes become red and headache - Wool Other: See Comments eyes become red and headache PAST SURGICAL HISTORY Procedure Laterality Date - DELIVERY ONLY 1988 , low cervical - COLONOSCOPY 03/25/01 R Cebul - hyperplastic polyp - COLONOSCOPY W/BX 05/17/11 repeat - [facility]X 05/17/11 - FILTER PLACEMENT (VENA CAVA) 11-03-12 - HEMORRHOIDECT INTER/EXTER SIMP 03/27/01 - KNEE SCOPE,DIAGNOSTIC Left 05/10/2003 Arthroscopy, knee Left - L'SCOPE DX W/WO BRUSHINGS/WASHINGS 1999 Laparoscopy - LAMINECTOMY,LUMBAR 1994 Back surgery - LAMINECTOMY,LUMBAR 11/05/2012 Laminectomy, lumbar - LIGATE FALLOPIAN TUBE 1988 Tubal ligation - OPEN RX ANKLE DISLOCATN+FIXATN 1986 ORIF Ankle - PAST SURGICAL HISTORY OF 2004 Thumb bilateral - PAST SURGICAL HISTORY OF Left 07/2006 partial knee replacement left - PAST SURGICAL HISTORY OF Right 2008 repair knee cap - PAST SURGICAL HISTORY OF 03/26/2014 transurethral resection of bladder lesion. vaginal sling. Dr. Almendarez - REMOVAL OF OVARY/TUBE(S) 1999 Salpingo-oophorectomy bilateral - RETRIEV INTRAVASC FOREGN BODY 01/30/13 filter removal - TOTAL ABDOM HYSTERECTOMY 1999 AANDP REPAIR hyst for benign reason - TOTAL KNEE REPLACEMENT Right 2009 right knee replacement FAMILY HISTORY Problem Relation Age of Onset - Blood Disease Mother blood clot, coumadin - Hypertension Mother - Coronary Artery Disease Mother 84 - Cancer Father poss bladder - Prostate Cancer Father - None Sister - None Sister - None Sister - Diabetes Paternal Grandmother - Colon Cancer Paternal Grandmother - Stroke Paternal Grandfather - Diabetes Paternal Grandfather - Cancer Maternal Grandfather LEUKEMIA - Cancer Maternal Uncle - Psychiatry Sister anxiety Social History Marital status: Spouse name: Dot Years of education: 12 Number of children: 3 Occupational History 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 Feels safe. Uses cane. Drives. REVIEW OF SYSTEMS: CONSTITUTIONAL: No fevers, chills, nightsweats, unintended weight loss HEENT: Denies frequent or severe heaches, nasal congestion/sinus symptoms, problematic allergy problems. EYES: No diplopia or blurry vision. CARDIOVASCULAR: No chest pain, dyspnea, palpitations, orthopnea, PND, ankle edema. PULM: No dyspnea, unexplained cough. GI: No dysphagia/odynophagia, problematic reflux, constipation, diarrhea, changes in stool habits, hematochezia, melena. : No new urinary complaints, including dysuria, gross hematuria or pyuria. NEURO: No new balance problems, peripheral weakness/paresthesias or numbness of concern. MUSC-SKEL: Left foot swelling PSY: No concerns regarding depression, anxiety or panic. INTEGUMENTARY: No new skin changes (rash, new or changing mole, new growth) Physical Exam: Constitutional: Pt is a well developed 66 year old female who is alert, oriented and cooperative Eyes: Following during examination. No redness or drainage. Respiratory: RR normal and nonlabored. Even breathing. No evidence of distress or shortness of breath. Psychology: Patient is engaged during conversation. Normal affect and mood. Does not appear depressed or anxious during encounter. Vascular: Dorsalis pedis and posterior tibial pulses palpable as b/l Capillary Fill time < 5 seconds to digits 1-5 b/l Skin temperature warm to warm proximal to distal b/l Hair growth present to digits Neurological: absent light touch/epicritic sensation Vibratory sensation absent to hallux b/l diminished protective sensation, significant neurological deficits Dermatological: Nails 1-5 b/l appear Normal. Webspaces clean and dry 1-4 b/l. Skin appears well hydrated and supple. good color, texture, turgor. Callosities absent. Open lesions absent. Wound: Not present. Musculoskeletal/Orthopaedic: Patient has no pain to palpation of left foot There is dropfoot of left foot with severely pronated hindfoot of left lower extremity. AJ ROM is full with knee extended and flexed 1st MPJ is decreased when loaded and no pain or crepitus are noted with ROM. MTJ, STJ are full and free of pain and crepitus. +5/5 muscle strength dorsiflexion, plantarflexion, inversion, eversion b/l Radiographs: 3 views of left foot were ordered and reviewed. There is healing fracture of left 5th metatarsal. There is evidence of degenerative arthritis of left midfoot due to remote lis franc dislocation. ASSESSMENT: (E11.610) Charcot foot due to diabetes mellitus (HCC) (primary encounter diagnosis) (S93.325D) Dislocation of tarsometatarsal joint of left foot, subsequent encounter PLAN: Patient was examined and informed of current findings Discussed with her the deformity of her left foot. She has significant dropfoot of left lower extremity and has progressive flatfoot deformity. Further, she has what appears to be severely degenerative arthritis of midfoot with remote lisfranc joint dislocation. Discussed etiology of deformity of midfoot not limited to charcot vs lisfranc trauma. Patient and inform me that her foot has looked like this the past year so I suspect that this xray finding is more related to arthritis and remote lisfranc trauma rather than charcot or acute injury. I have discussed this xray with radiologist. There does not appear to be any destructive processes to suggest a neuroarthritic joint. Certainly in diabetic patient, the etiology of charcot is certainly high. Today we did discuss casting, afo vs surgery. Patient not keen on casting because she has difficult time in house with cast. I have discussed afo. She has old afo. I will order new afo and she can get at [employer]. I have had discussion with patient regarding surgery. I have discussed referral to orthopedics for surgical evaluation. I have informed patient that lisfranc diastasis could lead to instability. She understands this but she is not interested in surgery. I have had long discussion with her and her in my office and over the phone. She is not interested in surgery. I will have her continue with boot until she receives new afo. f/u in 3 weeks Alexandru Toure DPM The documentation for this note was completed by Jannet Hooks Ma acting as scribe for Alexandru Toure DPM. September 13, 2017 8:07 AM. I agree with the Chief Complaint, ROS, and Past Histories independently gathered by the clinical sales support consultant and the remaining scribed note accurately describes my personal service to the patient. JESSICA Lee RN 09/13/2017 8:34 AM Signed Xrays today We will call you with the results and follow up Referring Provider: ALEXANDRU TOURE [[id number]] Allergies As of Date: 09/13/2017 Noted Allergy Reaction CHLORHEXIDINE 05/21/2013 9 - Itching COTTON 10/12/2004 14 - Other: See Comments Comments: eyes become red and headache DARVON (PROPOXYPHENE HCL) 04/20/2008 1 - Mental Status Change FEATHERS 10/12/2004 14 - Other: See Comments Comments: eyes become red and headache GRASS POLLEN 10/08/2012 9 - Itching MORPHINE 04/20/2008 1 - Mental Status Change VINEGAR 10/12/2004 14 - Other: See Comments Comments: eyes become red and headache WOOL 10/12/2004 14 - Other: See Comments Comments: eyes become red and headache Date Reviewed: 09/13/2017 Reviewed by: Jannet Hooks Ma - Fully Assessed Reason for Visit: Follow Up [171] Primary Visit Diagnosis:Charcot foot due to diabetes mellitus (HCC) [E11.610] Other Visit Diagnosis:Dislocation of tarsometatarsal joint of left foot, subsequent encounter [X67.098T] Order(s):XR FOOT GENERAL 3V AP/LAT/OBL LT [4308963] Order #: [id number] FUTURE CONSULT TO ORTHOTIC/PROSTHETIC [[id number]] Order #: [id number]: 1 Prescriptions as of 09/13/2017 Sig: COMPOUNDED PRESCRIPTION Sitz bath SIMVASTATIN 20 MG TABLET take 1 tablet by mouth at bed* GABAPENTIN 800 MG TABLET Take 1 tablet by mouth three * WARFARIN 5 MG TABLET Take 1 tablet by mouth daily * METFORMIN 500 MG TABLET Take 1 tablet by mouth daily * FLUTICASONE 100 MCG-SALMETERO* Inhale 1 Puff as instructed t* BLOOD-GLUCOSE METER KIT Glucose Meter of Choice - Kit* BLOOD SUGAR DIAGNOSTIC STRIPS Test blood sugar(s) 2 times d* LANCETS Test blood sugar(s) 2 times d* ESTRADIOL 10 MCG VAGINAL TABL* Use 1 tablet vaginally every * OMEPRAZOLE 20 MG CAPSULE,AILYN* Take 1 capsule by mouth daily* LEVOCETIRIZINE 5 MG TABLET Take 1 tablet by mouth once d* TRAMADOL 50 MG TABLET Take 1 tablet by mouth twice * MELANIE C ORAL Take 1 tablet by mouth once d* OXYBUTYNIN CHLORIDE ER 10 MG * Take 1 tablet by mouth once d* ALBUTEROL SULFATE HFA 90 MCG/* Inhale 2 Puffs as instructed * CALCIUM CARBONATE 500 MG (1,2* Take two(2) tablets twice mike* OMEGA-3 FATTY ACIDS-VITAMIN E* Take 3 pills once daily (?dos* THERAPEUTIC MULTIVITAMIN TABL* Take one(1) tablet daily. Problem List As Of Date 09/13/2017 Noted Resolved Unspecified tinnitus [H93.19] 03/11/2012 Allergic rhinitis, cause unspecified [J30.9] GENERAL OSTEOARTHROSIS [M15.9] Carpal tunnel syndrome [G56.00] 03/11/2012 Dizziness and giddiness [R42] 03/11/2012 Contusion of unspecified part of trunk [S20.20X* 03/11/2012 Acute, but ill-defined, cerebrovascular disease* 03/11/2012 Other specified disorder of bladder [596.8] INVALID FOR*03/11/2012 Urge incontinence [N39.41] INVALID FOR*10/28/2014 Dermatophytosis of nail [B35.1] INVALID FOR*03/11/2012 Asthma [J45.909] BONE AND CARTILAGE DIS NOS [M89.9, M94.9] INVALID FOR* Other pulmonary embolism and infarction [I26.99] 03/11/2012 KNEE JOINT REPLACEMENT STATUS [Z96.659] INVALID FOR* Chronic deep vein thrombosis (DVT) of proximal *INVALID FOR* More... Symptomatic menopausal or female climacteric st*INVALID FOR*03/11/2012 Anxiety state, unspecified [F41.1] INVALID FOR*03/11/2012 Urgency of urination [R39.15] INVALID FOR*03/11/2012 Microscopic hematuria [R31.29] INVALID FOR*03/11/2012 Gross hematuria [R31.0] INVALID FOR*03/11/2012 DVT (deep venous thrombosis) [I82.409] INVALID FOR*03/11/2012 Osteoarthritis of basilar joint of thumb, left *INVALID FOR*03/11/2012 More... Degenerative joint disease of right knee [M17.1*INVALID FOR*03/11/2012 More... Lung nodule [R91.1] INVALID FOR*03/11/2012 More... Overlapping toe [M20.5X9] INVALID FOR*03/11/2012 More... Foot drop, left [M21.372] INVALID FOR* Other hammer toe (acquired) [M20.40] INVALID FOR*10/21/2013 Diarrhea [R19.7] INVALID FOR*03/11/2012 Anemia, unspecified [D64.9] INVALID FOR*03/11/2012 Dermatofibroma of right lower leg [D23.71] INVALID FOR*03/11/2012 Scar condition and fibrosis of skin [L90.5] INVALID FOR*03/11/2012 Other seborrheic keratosis [L82.1] INVALID FOR*03/11/2012 Melanocytic nevi of trunk: back [D22.5] INVALID FOR*10/28/2014 Other acne [L70.8] INVALID FOR*03/11/2012 Granuloma of hair follicle [L98.0] INVALID FOR*03/11/2012 Excoriation [T14.8XXA] INVALID FOR*03/11/2012 Actinic skin damage [L57.8] INVALID FOR*10/28/2014 Colitis, collagenous [K52.831] INVALID FOR*03/11/2012 Scoliosis [M41.9] 03/11/2012 More... Degenerative lumbar spinal stenosis [M48.061] INVALID FOR* More... 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 Mixed incontinence [N39.46] INVALID FOR* More... Spondylolisthesis of lumbar region [M43.16] INVALID FOR*11/08/2016 Gastroesophageal reflux disease [K21.9] INVALID FOR* Postlaminectomy syndrome [M96.1] INVALID FOR* Postmenopausal atrophic vaginitis [N95.2] INVALID FOR* Controlled type 2 diabetes mellitus with compli*INVALID FOR* Cognitive impairment [R41.89] INVALID FOR* CKD (chronic kidney disease) stage 3, GFR 30-59*INVALID FOR* Pain in left foot [M79.672] INVALID FOR* Other instructions from your clinician: Xrays today We will call you with the results and follow up Follow-up and Disposition History Recorded Encounter Status:Closed by ALEXANDRU TOURE DPM on 09/13/17 PROGRESS Observed: 09/04/2017 Status: COMPLETED Source: IDANHA 2:46 PM [facility] REPOSITORY HNO ID: [id number] Author: Karly Kay Cma Service: (none) Author Type: (none) Type: Progress Notes Filed: 09/06/2017 1:11 PM Note Text: Please file labs. Letters mailed to patient. PROGRESS Observed: 09/04/2017 Status: COMPLETED Source: IDANHA 2:44 PM [facility] REPOSITORY HNO ID: [id number] Author: Karly Kay Cma Service: (none) Author Type: (none) Type: Progress Notes Filed: 09/06/2017 1:11 PM Note Text: Upcoming appointment 12/18/17. A1C and BMP ordered. Lipid pending. Please file labs. I will send appointment/lab reminder with DM retinal exam reminder and release form. LATANYA Observed: 09/04/2017 Status: COMPLETED Source: IDANHA 12:00 AM [facility] REPOSITORY Patient Outreach (INTMWS) ANNETTE COMBS ([id number]) 1950 F Date Time Provider Department 09/04/17 KARLY KAY ([facility]) INTMWS During your visit today, we recorded the following information about you: Karly Kay Elevator Service Technician 09/06/2017 1:11 PM Signed Upcoming appointment 12/18/17. A1C and BMP ordered. Lipid pending. Please file labs. I will send appointment/lab reminder with DM retinal exam reminder and release form. Karly Kay Elevator Service Technician 09/06/2017 1:11 PM Signed Please file labs. Letters mailed to patient. Allergies As of Date: 09/04/2017 Noted Allergy Reaction CHLORHEXIDINE 05/21/2013 9 - Itching COTTON 10/12/2004 14 - Other: See Comments Comments: eyes become red and headache DARVON (PROPOXYPHENE HCL) 04/20/2008 1 - Mental Status Change FEATHERS 10/12/2004 14 - Other: See Comments Comments: eyes become red and headache GRASS POLLEN 10/08/2012 9 - Itching MORPHINE 04/20/2008 1 - Mental Status Change VINEGAR 10/12/2004 14 - Other: See Comments Comments: eyes become red and headache WOOL 10/12/2004 14 - Other: See Comments Comments: eyes become red and headache Date Reviewed: 08/30/2017 Reviewed by: Jannet Hooks Ma - Fully Assessed Reason for Visit: PHMA/[facility] Outreach [[id number]] Primary Visit Diagnosis:Controlled type 2 diabetes mellitus with complication, without long-term current use of insulin (HCC) [E11.8] Order(s):LIPID PANEL BASIC [SQLIPB] Order #: [id number] FUTURE Prescriptions as of 09/04/2017 Sig: COMPOUNDED PRESCRIPTION Sitz bath SIMVASTATIN 20 MG TABLET take 1 tablet by mouth at bed* GABAPENTIN 800 MG TABLET Take 1 tablet by mouth three * WARFARIN 5 MG TABLET Take 1 tablet by mouth daily * METFORMIN 500 MG TABLET Take 1 tablet by mouth daily * FLUTICASONE 100 MCG-SALMETERO* Inhale 1 Puff as instructed t* BLOOD-GLUCOSE METER KIT Glucose Meter of Choice - Kit* BLOOD SUGAR DIAGNOSTIC STRIPS Test blood sugar(s) 2 times d* LANCETS Test blood sugar(s) 2 times d* ESTRADIOL 10 MCG VAGINAL TABL* Use 1 tablet vaginally every * OMEPRAZOLE 20 MG CAPSULE,AILYN* Take 1 capsule by mouth daily* LEVOCETIRIZINE 5 MG TABLET Take 1 tablet by mouth once d* TRAMADOL 50 MG TABLET Take 1 tablet by mouth twice * MELANIE C ORAL Take 1 tablet by mouth once d* OXYBUTYNIN CHLORIDE ER 10 MG * Take 1 tablet by mouth once d* ALBUTEROL SULFATE HFA 90 MCG/* Inhale 2 Puffs as instructed * CALCIUM CARBONATE 500 MG (1,2* Take two(2) tablets twice mike* OMEGA-3 FATTY ACIDS-VITAMIN E* Take 3 pills once daily (?dos* THERAPEUTIC MULTIVITAMIN TABL* Take one(1) tablet daily. Problem List As Of Date 09/04/2017 Noted Resolved Unspecified tinnitus [H93.19] 03/11/2012 Allergic rhinitis, cause unspecified [J30.9] GENERAL OSTEOARTHROSIS [M15.9] Carpal tunnel syndrome [G56.00] 03/11/2012 Dizziness and giddiness [R42] 03/11/2012 Contusion of unspecified part of trunk [S20.20X* 03/11/2012 Acute, but ill-defined, cerebrovascular disease* 03/11/2012 Other specified disorder of bladder [596.8] INVALID FOR*03/11/2012 Urge incontinence [N39.41] INVALID FOR*10/28/2014 Dermatophytosis of nail [B35.1] INVALID FOR*03/11/2012 Asthma [J45.909] BONE AND CARTILAGE DIS NOS [M89.9, M94.9] INVALID FOR* Other pulmonary embolism and infarction [I26.99] 03/11/2012 KNEE JOINT REPLACEMENT STATUS [Z96.659] INVALID FOR* Chronic deep vein thrombosis (DVT) of proximal *INVALID FOR* More... Symptomatic menopausal or female climacteric st*INVALID FOR*03/11/2012 Anxiety state, unspecified [F41.1] INVALID FOR*03/11/2012 Urgency of urination [R39.15] INVALID FOR*03/11/2012 Microscopic hematuria [R31.29] INVALID FOR*03/11/2012 Gross hematuria [R31.0] INVALID FOR*03/11/2012 DVT (deep venous thrombosis) [I82.409] INVALID FOR*03/11/2012 Osteoarthritis of basilar joint of thumb, left *INVALID FOR*03/11/2012 More... Degenerative joint disease of right knee [M17.1*INVALID FOR*03/11/2012 More... Lung nodule [R91.1] INVALID FOR*03/11/2012 More... Overlapping toe [M20.5X9] INVALID FOR*03/11/2012 More... Foot drop, left [M21.372] INVALID FOR* Other hammer toe (acquired) [M20.40] INVALID FOR*10/21/2013 Diarrhea [R19.7] INVALID FOR*03/11/2012 Anemia, unspecified [D64.9] INVALID FOR*03/11/2012 Dermatofibroma of right lower leg [D23.71] INVALID FOR*03/11/2012 Scar condition and fibrosis of skin [L90.5] INVALID FOR*03/11/2012 Other seborrheic keratosis [L82.1] INVALID FOR*03/11/2012 Melanocytic nevi of trunk: back [D22.5] INVALID FOR*10/28/2014 Other acne [L70.8] INVALID FOR*03/11/2012 Granuloma of hair follicle [L98.0] INVALID FOR*03/11/2012 Excoriation [T14.8XXA] INVALID FOR*03/11/2012 Actinic skin damage [L57.8] INVALID FOR*10/28/2014 Colitis, collagenous [K52.831] INVALID FOR*03/11/2012 Scoliosis [M41.9] 03/11/2012 More... Degenerative lumbar spinal stenosis [M48.061] INVALID FOR* More... 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 Mixed incontinence [N39.46] INVALID FOR* More... Spondylolisthesis of lumbar region [M43.16] INVALID FOR*11/08/2016 Gastroesophageal reflux disease [K21.9] INVALID FOR* Postlaminectomy syndrome [M96.1] INVALID FOR* Postmenopausal atrophic vaginitis [N95.2] INVALID FOR* Controlled type 2 diabetes mellitus with compli*INVALID FOR* Cognitive impairment [R41.89] INVALID FOR* CKD (chronic kidney disease) stage 3, GFR 30-59*INVALID FOR* Pain in left foot [M79.672] INVALID FOR* Letter [facility] Department of Internal Medicine Bernardo Durand MD [address] [place] [id number] Dear Annette Combs Your health care is very important to us. Our records indicate that you may be due for a diabetic eye exam. If you have had a diabetic eye exam within the last year, please have your records sent to us so that we may update your medical records. There is a medical records of release of information included in this letter. Please take the release to your eye doctor for future appointments to have your records forwarded to us. Important facts about diabetic eye exams Diabetic retinal exams should be done yearly for all patients with a diagnosis of diabetes. Risks such as diabetic retinopathy can be reduced with blood glucose control and early detection of potential problems. Diabetic retinopathy is damage to the small blood vessels in the retina that can lead to blindness Thank you, Bernardo Durand MD Letter [facility] [address] [address] Office: [phone] Bernardo Durand MD REQUEST FOR EYE EXAM FINDINGS March 09, 2016 Dear eye acute care physical therapist, Thank you for coordinating eye care for our mutual patient, Annette Combs (1950). Please fax this letter back to me with the most appropriate response selected below. Please allow the patient's signature to serve as permission to share your findings. Sincerely, Bernardo Durand MD Patient Signature Date Date of eye exam: Findings Both Eyes Right Left No Retinopathy Detected Non Proliferative Retinopathy Mild Moderate Severe Proliferative Retinopathy Macular Edema Further testing and/or treatment indicated Comments: Patient is to return: Encounter Status:Closed by KARLY KAY CMA on 09/06/17 PROGRESS Observed: 08/30/2017 Status: COMPLETED Source: [place] 7:58 AM [facility] [place] REPOSITORY O ID: [id number] Author: Alexandru Toure Service: (none) Author Type: Physician Type: Progress Notes Filed: 08/30/2017 11:59 AM Note Text: ? Alexandru Toure DPM Department of Podiatry [address] [place], [place] [id number] Dept: [phone] Dept 08/30/2017 Follow Up Podiatric Office Visit: HPI: Annette Combs is a 66 year old female. Patient presents for follow up for 1 wk post L charcot vs lisfranc fracture. Patient presents in NWB in wheelchair with TCC on LLE. Patient reports burning and jabbing needle pain to L dorsal foot on Saturday of this week. Lasted one day. Otherwise, patient doing well. Patient is a diabetic, but does not remember her blood glucose home reading from last evening. Patient states she has history of dropfoot on left lower extremity. She states that her left foot has always appeared flat but states that it has slowly enlarged to form a bony prominence of plantar medial arch. She does recall twisting in bath tub in early July. She does not recall mechanism or even remember falling. She states there is no pain to left foot. 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 Almendarez - Nontraumatic rupture of patellar tendon July 2007; sugical repair 07/29/[address] Devries - Other and unspecified hyperlipidemia 06/20/2012 - Other pulmonary embolism and infarction - PULM EMBOLISM/INFARCT NOS - Scoliosis Xray from [facility] 08/03/11 showed; also has narrowing L3-L4 and L4- L5; DJD L3, L4, L5; slight anterior displacement L4 on L5. - Symptomatic menopausal or female climacteric states - Unspecified asthma(493.90) - Unspecified hemorrhoids without mention of complication Hemorrhoids - Urge incontinence 02/01/2005 - VENOUS THROMBOSIS LOWER EXTREMITY NOS 10/30/2006 Post op left knee arthroscopy; ?PE at that time FAMILY HISTORY Problem Relation Age of Onset - Blood Disease Mother blood clot, coumadin - Hypertension Mother - Coronary Artery Disease Mother 84 - Cancer Father poss bladder - Prostate Cancer Father - None Sister - None Sister - None Sister - Diabetes Paternal Grandmother - Colon Cancer Paternal Grandmother - Stroke Paternal Grandfather - Diabetes Paternal Grandfather - Cancer Maternal Grandfather LEUKEMIA - Cancer Maternal Uncle - Psychiatry Sister anxiety REVIEW OF SYSTEMS: CONSTITUTIONAL: No fevers, chills, nightsweats, unintended weight loss HEENT: Denies frequent or severe heaches, nasal congestion/sinus symptoms, problematic allergy problems. EYES: No diplopia or blurry vision. CARDIOVASCULAR: No chest pain, dyspnea, palpitations, orthopnea, PND, ankle edema. PULM: No dyspnea, unexplained cough. GI: No dysphagia/odynophagia, problematic reflux, constipation, diarrhea, changes in stool habits, hematochezia, melena. : No new urinary complaints, including dysuria, gross hematuria or pyuria. NEURO: No new balance problems, peripheral weakness/paresthesias or numbness of concern. MUSC-SKEL: Left foot midfoot dislocation PSY: No concerns regarding depression, anxiety or panic. INTEGUMENTARY: No new skin changes (rash, new or changing mole, new growth) Physical Exam: Constitutional: Pt is a well developed 66 year old female who is alert, oriented and cooperative Eyes: Following during examination. No redness or drainage. Respiratory: RR normal and nonlabored. Even breathing. No evidence of distress or shortness of breath. Psychology: Patient is engaged during conversation. Normal affect and mood. Does not appear depressed or anxious during encounter. Vascular: Dorsalis pedis and posterior tibial pulses palpable as b/l Capillary Fill time < 5 seconds to digits 1-5 b/l Skin temperature warm to warm proximal to distal b/l Hair growth present to digits Neurological: absent light touch/epicritic sensation Vibratory sensation absent to hallux b/l declining protective sensation, significant neurological deficits. Dermatological: Skin appears well hydrated and supple. good color, texture, turgor. Callosities absen.Open lesions absent. Wound: Not present. Musculoskeletal/Orthopaedic: Patient has no pain to palpation of left foot Left foot is swollen with moderate abduction of midfoot relative to hindfoot Foot type is pronated structurally AJ ROM is decreased with knee extended and flexed 1st MPJ is full when loaded and no pain or crepitus are noted with ROM. MTJ, STJ are full and free of pain and crepitus. +2/5 muscle strength dorsiflexion, plantarflexion, inversion, eversion left Radiographs: xray and ct again reviewed. There is midfoot dislocation concerning for lisfranc injury or charcot ASSESSMENT: (E11.610) Charcot foot due to diabetes mellitus (HCC) (primary encounter diagnosis) (S93.325D) Dislocation of tarsometatarsal joint of left foot, subsequent encounter PLAN: Patient was examined and informed of current findings. This is a 66 year old female with dropfoot, diabetes and neuropathy. She does have xrays from late July that demonstrates displacement of 2nd tarsal metatarsal joint. She does have recollection of twisting her foot in early July and since then, she has noticed her foot developing plantar bony prominence. Informed patient that this finding could be due to charcot vs lisfranc acute injury. She has no pain with palpation of left foot. She has no bruising. Suspect charcot as high etiology of lisfranc joint dislocation. Discussed plan for immoblization with casting and possible [place] walker. Informed patient that it is possible this could be due to injury thereby disrupting lisfranc joint. She has no pain or swelling so suspicion of trauma may be less favored. Discussed possible use of afo vs surgical correction in future. I am going to recommend nwb with boot immoblization. I will have patient referred to one of my orthopedic colleague for consultation. Will discuss with either Dr. Ortiz or JESSICA MartinsOV Observed: 08/30/2017 Status: COMPLETED Source: IDANHA 7:55 AM [facility] REPOSITORY Office Visit (PODIWS) ANNETTE COMBS ([id number]) 1950 F Date Time Provider Department 08/30/17 7:55 AM ALEXANDRU TOURE During your visit today, we recorded the following information about you: Alexandru Toure DPM 08/30/2017 11:59 AM Signed ? Alexandru Toure DPM Department of Podiatry [address] [facility] [address] Dept: [phone] Dept 08/30/2017 Follow Up Podiatric Office Visit: HPI: Annette Combs is a 66 year old female. Patient presents for follow up for 1 wk post L charcot vs lisfranc fracture. Patient presents in NWB in wheelchair with TCC on LLE. Patient reports burning and jabbing needle pain to L dorsal foot on Saturday of this week. Lasted one day. Otherwise, patient doing well. Patient is a diabetic, but does not remember her blood glucose home reading from last evening. Patient states she has history of dropfoot on left lower extremity. She states that her left foot has always appeared flat but states that it has slowly enlarged to form a bony prominence of plantar medial arch. She does recall twisting in bath tub in early July. She does not recall mechanism or even remember falling. She states there is no pain to left foot. 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 Almendarez - Nontraumatic rupture of patellar tendon July 2007; sugical repair 07/29/[address] Devries - Other and unspecified hyperlipidemia 06/20/2012 - Other pulmonary embolism and infarction - PULM EMBOLISM/INFARCT NOS - Scoliosis Xray from [facility] 08/03/11 showed; also has narrowing L3-L4 and L4- L5; DJD L3, L4, L5; slight anterior displacement L4 on L5. - Symptomatic menopausal or female climacteric states - Unspecified asthma(493.90) - Unspecified hemorrhoids without mention of complication Hemorrhoids - Urge incontinence 02/01/2005 - VENOUS THROMBOSIS LOWER EXTREMITY NOS 10/30/2006 Post op left knee arthroscopy; ?PE at that time FAMILY HISTORY Problem Relation Age of Onset - Blood Disease Mother blood clot, coumadin - Hypertension Mother - Coronary Artery Disease Mother 84 - Cancer Father poss bladder - Prostate Cancer Father - None Sister - None Sister - None Sister - Diabetes Paternal Grandmother - Colon Cancer Paternal Grandmother - Stroke Paternal Grandfather - Diabetes Paternal Grandfather - Cancer Maternal Grandfather LEUKEMIA - Cancer Maternal Uncle - Psychiatry Sister anxiety REVIEW OF SYSTEMS: CONSTITUTIONAL: No fevers, chills, nightsweats, unintended weight loss HEENT: Denies frequent or severe heaches, nasal congestion/sinus symptoms, problematic allergy problems. EYES: No diplopia or blurry vision. CARDIOVASCULAR: No chest pain, dyspnea, palpitations, orthopnea, PND, ankle edema. PULM: No dyspnea, unexplained cough. GI: No dysphagia/odynophagia, problematic reflux, constipation, diarrhea, changes in stool habits, hematochezia, melena. : No new urinary complaints, including dysuria, gross hematuria or pyuria. NEURO: No new balance problems, peripheral weakness/paresthesias or numbness of concern. MUSC-SKEL: Left foot midfoot dislocation PSY: No concerns regarding depression, anxiety or panic. INTEGUMENTARY: No new skin changes (rash, new or changing mole, new growth) Physical Exam: Constitutional: Pt is a well developed 66 year old female who is alert, oriented and cooperative Eyes: Following during examination. No redness or drainage. Respiratory: RR normal and nonlabored. Even breathing. No evidence of distress or shortness of breath. Psychology: Patient is engaged during conversation. Normal affect and mood. Does not appear depressed or anxious during encounter. Vascular: Dorsalis pedis and posterior tibial pulses palpable as b/l Capillary Fill time < 5 seconds to digits 1-5 b/l Skin temperature warm to warm proximal to distal b/l Hair growth present to digits Neurological: absent light touch/epicritic sensation Vibratory sensation absent to hallux b/l declining protective sensation, significant neurological deficits. Dermatological: Skin appears well hydrated and supple. good color, texture, turgor. Callosities absen.Open lesions absent. Wound: Not present. Musculoskeletal/Orthopaedic: Patient has no pain to palpation of left foot Left foot is swollen with moderate abduction of midfoot relative to hindfoot Foot type is pronated structurally AJ ROM is decreased with knee extended and flexed 1st MPJ is full when loaded and no pain or crepitus are noted with ROM. MTJ, STJ are full and free of pain and crepitus. +2/5 muscle strength dorsiflexion, plantarflexion, inversion, eversion left Radiographs: xray and ct again reviewed. There is midfoot dislocation concerning for lisfranc injury or charcot ASSESSMENT: (E11.610) Charcot foot due to diabetes mellitus (HCC) (primary encounter diagnosis) (S93.325D) Dislocation of tarsometatarsal joint of left foot, subsequent encounter PLAN: Patient was examined and informed of current findings. This is a 66 year old female with dropfoot, diabetes and neuropathy. She does have xrays from late July that demonstrates displacement of 2nd tarsal metatarsal joint. She does have recollection of twisting her foot in early July and since then, she has noticed her foot developing plantar bony prominence. Informed patient that this finding could be due to charcot vs lisfranc acute injury. She has no pain with palpation of left foot. She has no bruising. Suspect charcot as high etiology of lisfranc joint dislocation. Discussed plan for immoblization with casting and possible [place] walker. Informed patient that it is possible this could be due to injury thereby disrupting lisfranc joint. She has no pain or swelling so suspicion of trauma may be less favored. Discussed possible use of afo vs surgical correction in future. I am going to recommend nwb with boot immoblization. I will have patient referred to one of my orthopedic colleague for consultation. Will discuss with either Dr. Ortiz or JESSICA Martins Ma 08/30/2017 8:39 AM Signed Our office will call you with appointment for Dr. Ortiz. Jannet Hooks Ma Referring Provider: ALEXANDRU TOURE [[id number]] Allergies As of Date: 08/30/2017 Noted Allergy Reaction CHLORHEXIDINE 05/21/2013 9 - Itching COTTON 10/12/2004 14 - Other: See Comments Comments: eyes become red and headache DARVON (PROPOXYPHENE HCL) 04/20/2008 1 - Mental Status Change FEATHERS 10/12/2004 14 - Other: See Comments Comments: eyes become red and headache GRASS POLLEN 10/08/2012 9 - Itching MORPHINE 04/20/2008 1 - Mental Status Change VINEGAR 10/12/2004 14 - Other: See Comments Comments: eyes become red and headache WOOL 10/12/2004 14 - Other: See Comments Comments: eyes become red and headache Date Reviewed: 08/30/2017 Reviewed by: Jannet Hooks Ma - Fully Assessed Reason for Visit: 1 wk post L cast [Other] Primary Visit Diagnosis:Charcot foot due to diabetes mellitus (HCC) [E11.610] Other Visit Diagnosis:Dislocation of tarsometatarsal joint of left foot, subsequent encounter [H23.140Y] Order(s):XR FOOT GENERAL 3V AP/LAT/OBL LT [5019733] Order #: [id number] FUTURE CONSULT TO ORTHOPAEDICS [9006] Order #: [id number]: 1 Prescriptions as of 08/30/2017 Sig: COMPOUNDED PRESCRIPTION Sitz bath SIMVASTATIN 20 MG TABLET take 1 tablet by mouth at bed* GABAPENTIN 800 MG TABLET Take 1 tablet by mouth three * WARFARIN 5 MG TABLET Take 1 tablet by mouth daily * METFORMIN 500 MG TABLET Take 1 tablet by mouth daily * FLUTICASONE 100 MCG-SALMETERO* Inhale 1 Puff as instructed t* BLOOD-GLUCOSE METER KIT Glucose Meter of Choice - Kit* BLOOD SUGAR DIAGNOSTIC STRIPS Test blood sugar(s) 2 times d* LANCETS Test blood sugar(s) 2 times d* ESTRADIOL 10 MCG VAGINAL TABL* Use 1 tablet vaginally every * OMEPRAZOLE 20 MG CAPSULE,AILYN* Take 1 capsule by mouth daily* LEVOCETIRIZINE 5 MG TABLET Take 1 tablet by mouth once d* TRAMADOL 50 MG TABLET Take 1 tablet by mouth twice * MELANIE C ORAL Take 1 tablet by mouth once d* OXYBUTYNIN CHLORIDE ER 10 MG * Take 1 tablet by mouth once d* ALBUTEROL SULFATE HFA 90 MCG/* Inhale 2 Puffs as instructed * CALCIUM CARBONATE 500 MG (1,2* Take two(2) tablets twice mike* OMEGA-3 FATTY ACIDS-VITAMIN E* Take 3 pills once daily (?dos* THERAPEUTIC MULTIVITAMIN TABL* Take one(1) tablet daily. Problem List As Of Date 08/30/2017 Noted Resolved Unspecified tinnitus [H93.19] 03/11/2012 Allergic rhinitis, cause unspecified [J30.9] GENERAL OSTEOARTHROSIS [M15.9] Carpal tunnel syndrome [G56.00] 03/11/2012 Dizziness and giddiness [R42] 03/11/2012 Contusion of unspecified part of trunk [S20.20X* 03/11/2012 Acute, but ill-defined, cerebrovascular disease* 03/11/2012 Other specified disorder of bladder [596.8] INVALID FOR*03/11/2012 Urge incontinence [N39.41] INVALID FOR*10/28/2014 Dermatophytosis of nail [B35.1] INVALID FOR*03/11/2012 Asthma [J45.909] BONE AND CARTILAGE DIS NOS [M89.9, M94.9] INVALID FOR* Other pulmonary embolism and infarction [I26.99] 03/11/2012 KNEE JOINT REPLACEMENT STATUS [Z96.659] INVALID FOR* Chronic deep vein thrombosis (DVT) of proximal *INVALID FOR* More... Symptomatic menopausal or female climacteric st*INVALID FOR*03/11/2012 Anxiety state, unspecified [F41.1] INVALID FOR*03/11/2012 Urgency of urination [R39.15] INVALID FOR*03/11/2012 Microscopic hematuria [R31.29] INVALID FOR*03/11/2012 Gross hematuria [R31.0] INVALID FOR*03/11/2012 DVT (deep venous thrombosis) [I82.409] INVALID FOR*03/11/2012 Osteoarthritis of basilar joint of thumb, left *INVALID FOR*03/11/2012 More... Degenerative joint disease of right knee [M17.1*INVALID FOR*03/11/2012 More... Lung nodule [R91.1] INVALID FOR*03/11/2012 More... Overlapping toe [M20.5X9] INVALID FOR*03/11/2012 More... Foot drop, left [M21.372] INVALID FOR* Other hammer toe (acquired) [M20.40] INVALID FOR*10/21/2013 Diarrhea [R19.7] INVALID FOR*03/11/2012 Anemia, unspecified [D64.9] INVALID FOR*03/11/2012 Dermatofibroma of right lower leg [D23.71] INVALID FOR*03/11/2012 Scar condition and fibrosis of skin [L90.5] INVALID FOR*03/11/2012 Other seborrheic keratosis [L82.1] INVALID FOR*03/11/2012 Melanocytic nevi of trunk: back [D22.5] INVALID FOR*10/28/2014 Other acne [L70.8] INVALID FOR*03/11/2012 Granuloma of hair follicle [L98.0] INVALID FOR*03/11/2012 Excoriation [T14.8XXA] INVALID FOR*03/11/2012 Actinic skin damage [L57.8] INVALID FOR*10/28/2014 Colitis, collagenous [K52.831] INVALID FOR*03/11/2012 Scoliosis [M41.9] 03/11/2012 More... Degenerative lumbar spinal stenosis [M48.061] INVALID FOR* More... 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 Mixed incontinence [N39.46] INVALID FOR* More... Spondylolisthesis of lumbar region [M43.16] INVALID FOR*11/08/2016 Gastroesophageal reflux disease [K21.9] INVALID FOR* Postlaminectomy syndrome [M96.1] INVALID FOR* Postmenopausal atrophic vaginitis [N95.2] INVALID FOR* Controlled type 2 diabetes mellitus with compli*INVALID FOR* Cognitive impairment [R41.89] INVALID FOR* CKD (chronic kidney disease) stage 3, GFR 30-59*INVALID FOR* Other instructions from your clinician: Our office will call you with appointment for Dr. Ortiz. Jannet L Jessee Leal Encounter Status:Closed by ALEXANDRU TOURE DPM on 08/30/17 URINALYSIS WITH Collected: 08/29/2017 Status: F Source: [facility] 7:35 AM [facility] REPOSITORY TYPE CODE TESTS RESULT OUT OF RANGE REFERENCE UNITS LAB UCOL Yellow Color Yellow LAB [facility] Clear Clarity Clear LAB UGLUC Negative mg/dL Glucose, Urine Negative LAB UBIL Negative Bilirubin, Urine Negative LAB UKET Negative Ketones, Urine Negative LAB USPG 1.005-1.030 Specific [place], Ur 1.010 LAB UHGB Negative Abnormal Hemoglobin/Blood, 1+ Alert Ur LAB UPH 4.5-8.0 pH 6.0 LAB UPROT Negative mg/dL Protein, Urine Negative LAB UUROB Normal Urobilinogen Normal LAB UNITR Negative Nitrites Negative LAB ULKEST Negative Leukest Abnormal Trace Alert LAB UCOM Comments SEE COMMENT Result Comment: N/A LAB UMCOM Urine SEE Joseph Comment COMMENT Result Comment: N/A LAB UWBC 0-5 /HPF WBC 0-5 LAB URBC 0-3 /HPF RBC 0-3 LAB UEPI /HPF Epithelial SEE Cells COMMENT Result Comment: Few Squamous Epithelial Cells Performed By: #### UAWMIC #### [facility] [address], [place] [address] Observed: 08/29/2017 Status: F Source: [place] URINE CULTURE 7:35 AM [facility] REPOSITORY Culture Result - No growth (<1,000 CFU/ml) Performed By: #### URCUL #### [facility] [address] [place], [place] [address] PROTHROMBIN TIME W/INR Collected: 08/29/2017 Status: F Source: [place] 6:57 AM [facility] REPOSITORY TYPE CODE TESTS RESULT OUT OF RANGE REFERENCE UNITS LAB L300.4150 11.7-14.9 SECONDS High PROTIME 24.0 LAB L300.4200 Normal INR 2.1 Performed By: #### L300.3900 #### [facility] [address] [facility]. [place], [place], [address] PROGRESS Observed: 08/22/2017 Status: COMPLETED Source: [place] 9:43 AM [facility] REPOSITORY HNO ID: [id number] Author: Jannet Hooks Ma Service: (none) Author Type: (none) Type: Progress Notes Filed: 08/23/2017 11:56 PM Note Text: PT ASSESSMENT - CASTING ROOM [place] presents for Application of Total Contact Cast. Applied total contact cast to LLE. A total of 5 rolls of cast tape used. Patient has been instructed in The patient and/or family member have been instructed in the following: Do not get cast wet, or place/stick anything inside the cast. The patient was instructed to be NWB at ALL TIMES. Instruction included keeping all pressure off the heel, and to place nothing under the heel. Care of cast.. Patient given written instructions as well. Jannet Hooks Ma PROGRESS Observed: 08/22/2017 Status: COMPLETED Source: [place] 8:07 AM [facility] REPOSITORY HNO ID: [id number] Author: Alexandru Toure Service: (none) Author Type: Physician Type: Progress Notes Filed: 08/23/2017 11:56 PM Note Text: ? Alexandru Toure DPM Department of Podiatry [address] [place] [address] Dept: [phone] Dept 08/22/2017 Follow Up Podiatric Office Visit: HPI: Annette Combs is a 66 year old female. Patient presents for follow up for : L lisfranc fracture vs charcot. Patient has no complaints of pain. Patient continues to wear boot but she is not NWB. She is walking on boot at home. A wheelchair was ordered at her last appointment so she could remain NWB but pt states wheelchair was too expensive and it is too hard for her to maneuver in a wheelchair at home. She says her hallways are narrow. She has a CT to review. 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 Almendarez - Nontraumatic rupture of patellar tendon July 2007; sugical repair 07/29/[address] Devries - Other and unspecified hyperlipidemia 06/20/2012 - Other pulmonary embolism and infarction - PULM EMBOLISM/INFARCT NOS - Scoliosis Xray from [facility] 08/03/11 showed; also has narrowing L3-L4 and L4- L5; DJD L3, L4, L5; slight anterior displacement L4 on L5. - Symptomatic menopausal or female climacteric states - Unspecified asthma(493.90) - Unspecified hemorrhoids without mention of complication Hemorrhoids - Urge incontinence 02/01/2005 - VENOUS THROMBOSIS LOWER EXTREMITY NOS 10/30/2006 Post op left knee arthroscopy; ?PE at that time Family History Problem Relation Age of Onset - Blood Disease Mother blood clot, coumadin - Hypertension Mother - Coronary Artery Disease Mother 84 - Cancer Father poss bladder - Prostate Cancer Father - None Sister - None Sister - None Sister - Diabetes Paternal Grandmother - Colon Cancer Paternal Grandmother - Stroke Paternal Grandfather - Diabetes Paternal Grandfather - Cancer Maternal Grandfather LEUKEMIA - Cancer Maternal Uncle - Psychiatry Sister anxiety REVIEW OF SYSTEMS: CONSTITUTIONAL: No fevers, chills, nightsweats, unintended weight loss HEENT: Denies frequent or severe heaches, nasal congestion/sinus symptoms, problematic allergy problems. EYES: No diplopia or blurry vision. CARDIOVASCULAR: No chest pain, dyspnea, palpitations, orthopnea, PND, ankle edema. PULM: No dyspnea, unexplained cough. GI: No dysphagia/odynophagia, problematic reflux, constipation, diarrhea, changes in stool habits, hematochezia, melena. : No new urinary complaints, including dysuria, gross hematuria or pyuria. NEURO: No new balance problems, peripheral weakness/paresthesias or numbness of concern. MUSC-SKEL: No new joint pain, swelling, or erythema. PSY: No concerns regarding depression, anxiety or panic. INTEGUMENTARY: No new skin changes (rash, new or changing mole, new growth) Physical Exam: Constitutional: Pt is a well developed 66 year old female who is alert, oriented and cooperative Eyes: Following during examination. No redness or drainage. Respiratory: RR normal and nonlabored. Even breathing. No evidence of distress or shortness of breath. Psychology: Patient is engaged during conversation. Normal affect and mood. Does not appear depressed or anxious during encounter. Vascular: Dorsalis pedis and posterior tibial pulses palpable b/l Capillary Fill time < 5 seconds to digits 1-5 b/l Skin temperature warm to warm proximal to distal b/l Temperature similar on both feet 92.5 L, 91.8 R Hair growth present to digits Neurological: absent light touch/epicritic sensation Dermatological: Skin appears well hydrated and supple. good color, texture, turgor. Callosities absent.Open lesions absent. Wound: Not present. Musculoskeletal/Orthopaedic: Patient has pain to palpation of left tarsal metatarsal joint Foot type is pronated structurally, L Drop foot, L AJ ROM is decreased with knee extended and flexed 1st MPJ is decreased when loaded and no pain or crepitus are noted with ROM. MTJ, STJ are full and free of pain and crepitus. +5/5 muscle strength dorsiflexion, plantarflexion, inversion, eversion on R, 3/5 on L Radiographs: xrays of left foot again reviewed. There is evidence of step off deformity at 1st/2nd tarsal metatarsal joint Ct scan shows disruption/step-off deformity of lisfranc joint ASSESSMENT: (S93.325A) Lisfranc dislocation, left, initial encounter (primary encounter diagnosis) (M14.672) Charcot's joint of left ankle (R26.9) Abnormality of gait Suspect dislocation of joint due to either trauma or charcot. Patient really has no traumatic event that she can recall and she has no pain. Concerned may be to due charcot. Discussed placing pt in total contact cast and remaining nwb Explained that she must be NWB in cast. Informed patient that if she walks in cast, this could result in breaking down of cast and possibly lead to ulceration. She states that she is willing to try cast. I will place patient in cast today and order [place] boot. Conservative and surgical options are available for this deformity. I will discuss with radiologist regarding ct scan but confident this is mostly related to charcot joint given absence of pain, absence of trauma. I will evaluate patient in one week. PLAN: 1. History and physical examination performed. 2. Total contact cast 3. f/u in 1week The documentation for this note was completed by Paty Gant RN acting as scribe for Alexandru Toure DPM. August 22, 2017 8:08 AM. Alexandru Toure DPM CNOV Observed: 08/22/2017 Status: COMPLETED Source: [place] 7:55 AM [facility] REPOSITORY Office Visit (PODIWS) ANNETTE COMBS ([id number]) 1950 F Date Time Provider Department 08/22/17 7:55 AM ALEXANDRU TOURE During your visit today, we recorded the following information about you: Alexandru Toure DPM 08/23/2017 11:56 PM Signed ? Alexandru Toure DPM Department of Podiatry [address] [facility] [address] Dept: [phone] Dept 08/22/2017 Follow Up Podiatric Office Visit: HPI: Annette Combs is a 66 year old female. Patient presents for follow up for : L lisfranc fracture vs charcot. Patient has no complaints of pain. Patient continues to wear boot but she is not NWB. She is walking on boot at home. A wheelchair was ordered at her last appointment so she could remain NWB but pt states wheelchair was too expensive and it is too hard for her to maneuver in a wheelchair at home. She says her hallways are narrow. She has a CT to review. 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 Almendarez - Nontraumatic rupture of patellar tendon July 2007; sugical repair 07/29/[address] Devries - Other and unspecified hyperlipidemia 06/20/2012 - Other pulmonary embolism and infarction - PULM EMBOLISM/INFARCT NOS - Scoliosis Xray from [facility] 08/03/11 showed; also has narrowing L3-L4 and L4- L5; DJD L3, L4, L5; slight anterior displacement L4 on L5. - Symptomatic menopausal or female climacteric states - Unspecified asthma(493.90) - Unspecified hemorrhoids without mention of complication Hemorrhoids - Urge incontinence 02/01/2005 - VENOUS THROMBOSIS LOWER EXTREMITY NOS 10/30/2006 Post op left knee arthroscopy; ?PE at that time Family History Problem Relation Age of Onset - Blood Disease Mother blood clot, coumadin - Hypertension Mother - Coronary Artery Disease Mother 84 - Cancer Father poss bladder - Prostate Cancer Father - None Sister - None Sister - None Sister - Diabetes Paternal Grandmother - Colon Cancer Paternal Grandmother - Stroke Paternal Grandfather - Diabetes Paternal Grandfather - Cancer Maternal Grandfather LEUKEMIA - Cancer Maternal Uncle - Psychiatry Sister anxiety REVIEW OF SYSTEMS: CONSTITUTIONAL: No fevers, chills, nightsweats, unintended weight loss HEENT: Denies frequent or severe heaches, nasal congestion/sinus symptoms, problematic allergy problems. EYES: No diplopia or blurry vision. CARDIOVASCULAR: No chest pain, dyspnea, palpitations, orthopnea, PND, ankle edema. PULM: No dyspnea, unexplained cough. GI: No dysphagia/odynophagia, problematic reflux, constipation, diarrhea, changes in stool habits, hematochezia, melena. : No new urinary complaints, including dysuria, gross hematuria or pyuria. NEURO: No new balance problems, peripheral weakness/paresthesias or numbness of concern. MUSC-SKEL: No new joint pain, swelling, or erythema. PSY: No concerns regarding depression, anxiety or panic. INTEGUMENTARY: No new skin changes (rash, new or changing mole, new growth) Physical Exam: Constitutional: Pt is a well developed 66 year old female who is alert, oriented and cooperative Eyes: Following during examination. No redness or drainage. Respiratory: RR normal and nonlabored. Even breathing. No evidence of distress or shortness of breath. Psychology: Patient is engaged during conversation. Normal affect and mood. Does not appear depressed or anxious during encounter. Vascular: Dorsalis pedis and posterior tibial pulses palpable b/l Capillary Fill time < 5 seconds to digits 1-5 b/l Skin temperature warm to warm proximal to distal b/l Temperature similar on both feet 92.5 L, 91.8 R Hair growth present to digits Neurological: absent light touch/epicritic sensation Dermatological: Skin appears well hydrated and supple. good color, texture, turgor. Callosities absent.Open lesions absent. Wound: Not present. Musculoskeletal/Orthopaedic: Patient has pain to palpation of left tarsal metatarsal joint Foot type is pronated structurally, L Drop foot, L AJ ROM is decreased with knee extended and flexed 1st MPJ is decreased when loaded and no pain or crepitus are noted with ROM. MTJ, STJ are full and free of pain and crepitus. +5/5 muscle strength dorsiflexion, plantarflexion, inversion, eversion on R, 3/5 on L Radiographs: xrays of left foot again reviewed. There is evidence of step off deformity at 1st/2nd tarsal metatarsal joint Ct scan shows disruption/step-off deformity of lisfranc joint ASSESSMENT: (S93.325A) Lisfranc dislocation, left, initial encounter (primary encounter diagnosis) (M14.672) Charcot's joint of left ankle (R26.9) Abnormality of gait Suspect dislocation of joint due to either trauma or charcot. Patient really has no traumatic event that she can recall and she has no pain. Concerned may be to due charcot. Discussed placing pt in total contact cast and remaining nwb Explained that she must be NWB in cast. Informed patient that if she walks in cast, this could result in breaking down of cast and possibly lead to ulceration. She states that she is willing to try cast. I will place patient in cast today and order [place] boot. Conservative and surgical options are available for this deformity. I will discuss with radiologist regarding ct scan but confident this is mostly related to charcot joint given absence of pain, absence of trauma. I will evaluate patient in one week. PLAN: 1. History and physical examination performed. 2. Total contact cast 3. f/u in 1week The documentation for this note was completed by Paty Gant RN acting as scribe for Alexandru Toure DPM. August 22, 2017 8:08 AM. JESSICA Lee Ma 08/22/2017 9:11 AM Signed Cast Care Instructions Your New Cast It will take about 12-24 hours for the fiberglass cast to fully ?cure?. Do not rest your leg on any sharp surfaces that may dent the fiberglass and in turn put increased pressure on your skin. Elevate Some swelling is normal after an injury. This can make your cast feel tighter. Swelling is best relieved by elevating the cast above the level of your heart. Generally, you should lay down and use enough pillows to prop your leg higher than your heart. Keep the Cast Dry It is EXTREMELY important to keep your cast dry. You can purchase cast covers at [facility] to you. Itching DO NOT INSERT ANY OBJECT INTO YOUR CAST! If you experience any itching, you can try taking a hairspring ii inspector and blow cool air into your cast. Do not pick at the padding on the edges. This will result in sharp edges that will irritate your skin. SEVERAL SIGNS THAT MAY REQUIRE IMMEDIATE MEDICAL ATTENTION, YOU SHOULD CALL THE OFFICE IMMEDIATELY IF YOU DEVELOP: - Severe pain not relieved by pain medication - Numbness/tingling not relieved by 15-30 minutes or proper elevation - Persistent burning or stinging underneath the cast - Excessive swelling - Loss of active movement of toes If you have any questions/concerns, please contact [phone] and ask for podiatry and a nurse. It is important to stay off of your cast Jannet Hooks Ma 08/23/2017 11:56 PM Signed PT ASSESSMENT - CASTING ROOM [place] presents for Application of Total Contact Cast. Applied total contact cast to LLE. A total of 5 rolls of cast tape used. Patient has been instructed in The patient and/or family member have been instructed in the following: Do not get cast wet, or place/stick anything inside the cast. The patient was instructed to be NWB at ALL TIMES. Instruction included keeping all pressure off the heel, and to place nothing under the heel. Care of cast.. Patient given written instructions as well. Jannet Hooks Ma Referring Provider: ALEXANDRU TOURE [[id number]] Allergies As of Date: 08/22/2017 Noted Allergy Reaction CHLORHEXIDINE 05/21/2013 9 - Itching COTTON 10/12/2004 14 - Other: See Comments Comments: eyes become red and headache DARVON (PROPOXYPHENE HCL) 04/20/2008 1 - Mental Status Change FEATHERS 10/12/2004 14 - Other: See Comments Comments: eyes become red and headache GRASS POLLEN 10/08/2012 9 - Itching MORPHINE 04/20/2008 1 - Mental Status Change VINEGAR 10/12/2004 14 - Other: See Comments Comments: eyes become red and headache WOOL 10/12/2004 14 - Other: See Comments Comments: eyes become red and headache Date Reviewed: 08/22/2017 Reviewed by: Paty Gant RN - Fully Assessed Reason for Visit: Recheck [92] Primary Visit Diagnosis:Lisfranc dislocation, left, initial encounter [S93.325A] Other Visit Diagnoses:Charcot's joint of left ankle [M14.672] Abnormality of gait [R26.9] Order(s):CONSULT TO ORTHOTIC/PROSTHETIC [910407] Order #: [id number]: 1 COMMODE CHAIR, MOBILE OR STATIONARY [[id number]] Order #: [id number] CRUTCHES - PAIR - ALUMINUM [[id number]] Order #: [id number] Prescriptions as of 08/22/2017 Sig: SULFAMETHOXAZOLE 800 MG-TRIME* Take 1 tablet by mouth twice * COMPOUNDED PRESCRIPTION Sitz bath SIMVASTATIN 20 MG TABLET take 1 tablet by mouth at bed* GABAPENTIN 800 MG TABLET Take 1 tablet by mouth three * WARFARIN 5 MG TABLET Take 1 tablet by mouth daily * METFORMIN 500 MG TABLET Take 1 tablet by mouth daily * FLUTICASONE 100 MCG-SALMETERO* Inhale 1 Puff as instructed t* BLOOD-GLUCOSE METER KIT Glucose Meter of Choice - Kit* BLOOD SUGAR DIAGNOSTIC STRIPS Test blood sugar(s) 2 times d* LANCETS Test blood sugar(s) 2 times d* ESTRADIOL 10 MCG VAGINAL TABL* Use 1 tablet vaginally every * OMEPRAZOLE 20 MG CAPSULE,AILYN* Take 1 capsule by mouth daily* LEVOCETIRIZINE 5 MG TABLET Take 1 tablet by mouth once d* TRAMADOL 50 MG TABLET Take 1 tablet by mouth twice * MELANIE C ORAL Take 1 tablet by mouth once d* OXYBUTYNIN CHLORIDE ER 10 MG * Take 1 tablet by mouth once d* ALBUTEROL SULFATE HFA 90 MCG/* Inhale 2 Puffs as instructed * CALCIUM CARBONATE 500 MG (1,2* Take two(2) tablets twice mike* OMEGA-3 FATTY ACIDS-VITAMIN E* Take 3 pills once daily (?dos* THERAPEUTIC MULTIVITAMIN TABL* Take one(1) tablet daily. Problem List As Of Date 08/22/2017 Noted Resolved Unspecified tinnitus [H93.19] 03/11/2012 Allergic rhinitis, cause unspecified [J30.9] GENERAL OSTEOARTHROSIS [M15.9] Carpal tunnel syndrome [G56.00] 03/11/2012 Dizziness and giddiness [R42] 03/11/2012 Contusion of unspecified part of trunk [S20.20X* 03/11/2012 Acute, but ill-defined, cerebrovascular disease* 03/11/2012 Other specified disorder of bladder [596.8] INVALID FOR*03/11/2012 Urge incontinence [N39.41] INVALID FOR*10/28/2014 Dermatophytosis of nail [B35.1] INVALID FOR*03/11/2012 Asthma [J45.909] BONE AND CARTILAGE DIS NOS [M89.9, M94.9] INVALID FOR* Other pulmonary embolism and infarction [I26.99] 03/11/2012 KNEE JOINT REPLACEMENT STATUS [Z96.659] INVALID FOR* Chronic deep vein thrombosis (DVT) of proximal *INVALID FOR* More... Symptomatic menopausal or female climacteric st*INVALID FOR*03/11/2012 Anxiety state, unspecified [F41.1] INVALID FOR*03/11/2012 Urgency of urination [R39.15] INVALID FOR*03/11/2012 Microscopic hematuria [R31.29] INVALID FOR*03/11/2012 Gross hematuria [R31.0] INVALID FOR*03/11/2012 DVT (deep venous thrombosis) [I82.409] INVALID FOR*03/11/2012 Osteoarthritis of basilar joint of thumb, left *INVALID FOR*03/11/2012 More... Degenerative joint disease of right knee [M17.1*INVALID FOR*03/11/2012 More... Lung nodule [R91.1] INVALID FOR*03/11/2012 More... Overlapping toe [M20.5X9] INVALID FOR*03/11/2012 More... Foot drop, left [M21.372] INVALID FOR* Other hammer toe (acquired) [M20.40] INVALID FOR*10/21/2013 Diarrhea [R19.7] INVALID FOR*03/11/2012 Anemia, unspecified [D64.9] INVALID FOR*03/11/2012 Dermatofibroma of right lower leg [D23.71] INVALID FOR*03/11/2012 Scar condition and fibrosis of skin [L90.5] INVALID FOR*03/11/2012 Other seborrheic keratosis [L82.1] INVALID FOR*03/11/2012 Melanocytic nevi of trunk: back [D22.5] INVALID FOR*10/28/2014 Other acne [L70.8] INVALID FOR*03/11/2012 Granuloma of hair follicle [L98.0] INVALID FOR*03/11/2012 Excoriation [T14.8XXA] INVALID FOR*03/11/2012 Actinic skin damage [L57.8] INVALID FOR*10/28/2014 Colitis, collagenous [K52.831] INVALID FOR*03/11/2012 Scoliosis [M41.9] 03/11/2012 More... Degenerative lumbar spinal stenosis [M48.061] INVALID FOR* More... 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 Mixed incontinence [N39.46] INVALID FOR* More... Spondylolisthesis of lumbar region [M43.16] INVALID FOR*11/08/2016 Gastroesophageal reflux disease [K21.9] INVALID FOR* Postlaminectomy syndrome [M96.1] INVALID FOR* Postmenopausal atrophic vaginitis [N95.2] INVALID FOR* Controlled type 2 diabetes mellitus with compli*INVALID FOR* Cognitive impairment [R41.89] INVALID FOR* CKD (chronic kidney disease) stage 3, GFR 30-59*INVALID FOR* Other instructions from your clinician: Cast Care Instructions Your New Cast It will take about 12-24 hours for the fiberglass cast to fully ?cure?. Do not rest your leg on any sharp surfaces that may dent the fiberglass and in turn put increased pressure on your skin. Elevate Some swelling is normal after an injury. This can make your cast feel tighter. Swelling is best relieved by elevating the cast above the level of your heart. Generally, you should lay down and use enough pillows to prop your leg higher than your heart. Keep the Cast Dry It is EXTREMELY important to keep your cast dry. You can purchase cast covers at [employer] to you. Itching DO NOT INSERT ANY OBJECT INTO YOUR CAST! If you experience any itching, you can try taking a hairspring ii inspector and blow cool air into your cast. Do not pick at the padding on the edges. This will result in sharp edges that will irritate your skin. SEVERAL SIGNS THAT MAY REQUIRE IMMEDIATE MEDICAL ATTENTION, YOU SHOULD CALL THE OFFICE IMMEDIATELY IF YOU DEVELOP: - Severe pain not relieved by pain medication - Numbness/tingling not relieved by 15-30 minutes or proper elevation - Persistent burning or stinging underneath the cast - Excessive swelling - Loss of active movement of toes If you have any questions/concerns, please contact [phone] and ask for podiatry and a nurse. It is important to stay off of your cast Encounter Status:Closed by ALXEANDRU TOURE DPM on 08/23/17 CT FOOT WO IVCON LT Observed: 08/19/2017 Status: F Source: [place]AN[place] 8:38 AM [facility] REPOSITORY * * *Final Report* * * DATE OF EXAM: Aug 19 2017 8:38AM [facility] 0073 - CT FOOT WO IVCON LT / PROCEDURE REASON: Unspecified dislocation of left foot, initial encounter * * * * Physician Interpretation * * * * CT FOOT WO IVCON LT HISTORY: Left foot injury. COMPARISON: Radiographs performed 08/06/2017 01/05/2015 TECHNIQUE: Routine CT of the left was performed. CT Radiation dose: Integrated Dose-length product (DLP) for this visit = 210 mGy*cm. RESULT: There is a nondisplaced intra-articular fracture of the proximal phalanx of the fifth digit. No additional fracture or dislocation. Additionally, there is a step off of the second metatarsal and second tarsal bone with widening of the space between the first and second metatarsal. There are a few fragments that appear well-corticated between this. Findings likely represent remote Lisfranc injury, though new since 2014. There is mild lateral subluxation of the lateral sesamoid. Severe degenerative changes midfoot are noted with subchondral cysts and osteophyte formation. Ankle mortise appears intact with a small bone island. No significant soft tissue swelling. IMPRESSION: Intra-articular fracture of the proximal phalanx of the fifth digit. Findings suggesting remote Lisfranc injury, a reinjury is not completely excluded. Instructor Watch Assembly: MARSHALL Transcribe Date/Time: Aug 20 2017 4:45P Dictated by : EVARISTO MORALES MD This examination was interpreted and the report reviewed and electronically signed by: ARTURO YOU MD on Aug 23 2017 10:32AM EST [id number] PROGRESS Observed: 08/19/2017 Status: COMPLETED Source: [place] 8:27 AM [facility] REPOSITORY HNO ID: [id number] Author: Jessika Schwartz Service: (none) Author Type: (none) Type: Progress Notes Filed: 08/19/2017 9:04 AM Note Text: Radiology Service Progress Note PATIENT NAME: Annette Combs DATE OF SERVICE: August 19, 2017 TIME: 8:27 AM PATIENT IDENTITY VERIFICATION COMPLETED USING TWO (2) METHODS: Patient confirmed name verbally and Date of . PATIENT GENDER DATA: Female. status: : No status: NO. PATIENT RELEVANT IMPLANT DATA REVIEWED: Not Applicable RADIOLOGY DEPARTMENT: CT; Exam(s) Completed: Lower extremity Lt Foot PERIPHERAL IV DATA: Not applicable SIGNED BY: Jessika Schwartz August 19, 2017 8:27 AM PROTHROMBIN TIME W/INR Collected: 08/19/2017 Status: F Source: [place] 7:23 AM [facility] REPOSITORY TYPE CODE TESTS RESULT OUT OF RANGE REFERENCE UNITS LAB L300.4150 11.7-14.9 SECONDS High PROTIME 26.0 LAB L300.4200 Normal INR 2.4 Performed By: #### [id number] #### [facility] [address] [place], [place], [id number] PROTHROMBIN TIME W/INR Collected: 08/15/2017 Status: F Source: [place] 6:53 AM [facility] REPOSITORY TYPE CODE TESTS RESULT OUT OF RANGE REFERENCE UNITS LAB L300.4150 11.7-14.9 SECONDS High PROTIME 20.1 LAB L300.4200 Normal INR 1.7 Performed By: #### [id number] #### [facility] [address] [place], [address] URINALYSIS WITH Collected: 08/14/2017 Status: F Source: [facility] 11:02 AM [facility] REPOSITORY TYPE CODE TESTS RESULT OUT OF RANGE REFERENCE UNITS LAB UCOL Yellow Color Yellow LAB [facility] Clear Clarity Abnormal Turbid Alert LAB UGLUC Negative mg/dL Glucose, Urine Negative LAB UBIL Negative Bilirubin, Urine Negative LAB UKET Negative Ketones, Urine Negative LAB USPG 1.005-1.030 Specific Eldred, Ur 1.011 LAB UHGB Negative Abnormal Hemoglobin/Blood, 2+ Alert Ur LAB UPH 4.5-8.0 pH 6.0 LAB UPROT Negative mg/dL Protein, Abnormal Urine 30 Alert LAB UUROB Normal Urobilinogen Normal LAB UNITR Negative Nitrites Negative LAB ULKEST Negative Leukest Abnormal 3+ Alert LAB UCOM Comments SEE COMMENT Result Comment: N/A LAB UMCOM Urine SEE Joseph Comment COMMENT Result Comment: N/A LAB UWBC 0-5 /HPF Abnormal WBC Alert >25 LAB URBC 0-3 /HPF Abnormal RBC Alert >25 LAB UEPI /HPF Epithelial Cells SEE COMMENT Result Comment: Many Squamous Epithelial Cells Performed By: #### UAWMIC #### [facility] [address] [place], [place] [address] PROGRESS Observed: 08/12/2017 Status: COMPLETED Source: [place] 9:18 AM [facility] REPOSITORY HNO ID: [id number] Author: Alexandru Toure Service: (none) Author Type: Physician Type: Progress Notes Filed: 08/15/2017 10:44 PM Note Text: ? Alexandru Toure DPM Department of Podiatry [address] [facility] [address] Dept: [phone] Dept 08/12/2017 Initial Podiatric Office Visit: HPI: Annette Combs is a 66 year old female. Patient presents with L 5th toe fracture. Patient reports that she fell in the shower on 08/04/17. Was seen by PCP on 08/06/17 and XR done. Patient has boot that she has been wearing. Patient reports constant 10/10 jabbing pain. Patient does take gabapentin and tramadol for back pain from her Pain Management, Dr. Iyer. Reports no relief in foot pain. Patient does have hx of drop foot, L, in which she has a brace for, but currently not wearing d/t fracture. Patient reports knot to L medial foot that she noticed last week. Unsure if present before fall. Painful with standing. Patient reports being diabetic, does not remember her blood glucose from yesterday and she has not checked today yet. Patient reports hx of PE and DVT. Patient denies being a smoker. Hemoglobin A1C (%) Date Value 04/11/2017 6.4 PCP: Bernardo Alfaro MD PAST MEDICAL HISTORY Diagnosis Date - Acute, but ill-defined, cerebrovascular disease - Allergic rhinitis, cause unspecified Allergic rhinitis - Anal and rectal polyp FIBROPLASTIC - Anemia, unspecified - Colitis, collagenous 09/03/2011 - CVA (cerebral infarction) 90 - Degenerative joint disease of right knee 10/19/2010 - Degenerative lumbar spinal stenosis - DVT (deep venous thrombosis) (HCC) - Generalized osteoarthrosis, unspecified site - KNEE JOINT REPLACEMENT STATUS 09/02/2006 - Left foot drop 01/05/2011 - 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 Almendarez - Nontraumatic rupture of patellar tendon July 2007; sugical repair 07/29/[address] Devries - Other and unspecified hyperlipidemia 06/20/2012 - Other pulmonary embolism and infarction - PULM EMBOLISM/INFARCT NOS - Scoliosis Xray from [facility] 08/03/11 showed; also has narrowing L3-L4 and L4- L5; DJD L3, L4, L5; slight anterior displacement L4 on L5. - Symptomatic menopausal or female climacteric states - Unspecified asthma(493.90) - Unspecified hemorrhoids without mention of complication Hemorrhoids - Urge incontinence 02/01/2005 - VENOUS THROMBOSIS LOWER EXTREMITY NOS 10/30/2006 Post op left knee arthroscopy; ?PE at that time Current Outpatient Prescriptions: COMPOUNDED PRESCRIPTION Sitz bath simvastatin (ZOCOR) 20 mg tablet take 1 tablet by mouth at bedtime gabapentin (NEURONTIN) 800 mg tablet Take 1 tablet by mouth three times daily. warfarin (COUMADIN) 5 mg tablet Take 1 tablet by mouth daily as directed. metFORMIN (GLUCOPHAGE) 500 mg tablet Take 1 tablet by mouth daily with breakfast. For diabetes. fluticasone-salmeterol (ADVAIR DISKUS) 100-50 mcg/dose dsdv Inhale 1 Puff as instructed twice daily. as directed Blood-Glucose Meter monitoring kit Glucose Meter of Choice - Kit - Dx: Type 2 DM - Uncontrolled E11.9 blood sugar diagnostic (BLOOD GLUCOSE TEST) test strip Test blood sugar(s) 2 times daily. Dx: Type 2 DM - Uncontrolled E11.9 Insulin: No Lancets lancets Test blood sugar(s) 2 times daily. Dx: Type 2 DM - Uncontrolled E11.9 Insulin: No Estradiol (YUVAFEM) 10 mcg tab vaginal tablet Use 1 tablet vaginally every Saturday and Saturday. omeprazole (PRILOSEC) 20 mg capsule Take 1 capsule by mouth daily before breakfast. 1/2 hr before meal. Levocetirizine (XYZAL) 5 mg tablet Take 1 tablet by mouth once daily. traMADol (ULTRAM) 50 mg tablet Take 1 tablet by mouth twice daily as needed for Pain. ASCORBIC ACID/BIOFLAVONOIDS (MELANIE C ORAL) Take 1 tablet by mouth once daily. oxybutynin XL (DITROPAN XL) 10 mg 24 hr tablet Take 1 tablet by mouth once daily. albuterol HFA (PROVENTIL HFA) 90 mcg/actuation inhaler Inhale 2 Puffs as instructed every 4 hours as needed for Wheezing/Shortness of Breath. MAY GIVE AVAILABLE EQUIVALENT ALBUTEROL HFA INHALER Calcium-Cholecalciferol, D3, (CALCIUM 500 + D, D3,) 500-125 mg-unit ORAL Tab Take two(2) tablets twice daily. [place]-3 Fatty Acids-Vitamin E (FISH OIL) 1,000 mg ORAL Cap Take 3 pills once daily (?dose) THERAPEUTIC MULTIVITAMIN ORAL TAB Take one(1) tablet daily. No current facility-administered medications for this visit. ALLERGIES Allergen Reactions - Chlorhexidine Itching - Cotton Other: See Comments eyes become red and headache - Darvon [Propoxyphen* Mental Status Change - Feathers Other: See Comments eyes become red and headache - Grass Pollen Itching - Morphine Mental Status Change - Vinegar Other: See Comments eyes become red and headache - Wool Other: See Comments eyes become red and headache PAST SURGICAL HISTORY Procedure Laterality Date - DELIVERY ONLY 1988 , low cervical - COLONOSCOPY 03/25/01 R Cebul - hyperplastic polyp - COLONOSCOPY W/BX 05/17/11 repeat - [facility] 05/17/11 - FILTER PLACEMENT (VENA CAVA) 11-03-12 - HEMORRHOIDECT INTER/EXTER SIMP 03/27/01 - KNEE SCOPE,DIAGNOSTIC Left 05/10/2003 Arthroscopy, knee Left - L'SCOPE DX W/WO BRUSHINGS/WASHINGS 1999 Laparoscopy - LAMINECTOMY,LUMBAR 1994 Back surgery - LAMINECTOMY,LUMBAR 11/05/2012 Laminectomy, lumbar - LIGATE FALLOPIAN TUBE 1988 Tubal ligation - OPEN RX ANKLE DISLOCATN+FIXATN 1986 ORIF Ankle - PAST SURGICAL HISTORY OF 2003 Thumb bilateral - PAST SURGICAL HISTORY OF Left 07/2006 partial knee replacement left - PAST SURGICAL HISTORY OF Right 2008 repair knee cap - PAST SURGICAL HISTORY OF 03/26/2014 transurethral resection of bladder lesion. vaginal sling. Dr. Almendarez - REMOVAL OF OVARY/TUBE(S) 1999 Salpingo-oophorectomy bilateral - RETRIEV INTRAVASC FOREGN BODY 01/30/13 filter removal - TOTAL ABDOM HYSTERECTOMY 1999 AANDP REPAIR hyst for benign reason - TOTAL KNEE REPLACEMENT Right 2009 right knee replacement FAMILY HISTORY Problem Relation Age of Onset - Blood Disease Mother blood clot, coumadin - Hypertension Mother - Coronary Artery Disease Mother 84 - Cancer Father poss bladder - Prostate Cancer Father - None Sister - None Sister - None Sister - Diabetes Paternal Grandmother - Colon Cancer Paternal Grandmother - Stroke Paternal Grandfather - Diabetes Paternal Grandfather - Cancer Maternal Grandfather LEUKEMIA - Cancer Maternal Uncle - Psychiatry Sister anxiety Social History Marital status: Spouse name: Dot Years of education: 12 Number of children: 3 Occupational History 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 Feels safe. Uses cane. Drives. REVIEW OF SYSTEMS: CONSTITUTIONAL: No fevers, chills, nightsweats, unintended weight loss HEENT: Denies frequent or severe heaches, nasal congestion/sinus symptoms, REPORTS problematic allergy problems. EYES: No diplopia or blurry vision. CARDIOVASCULAR: No chest pain, dyspnea, palpitations, orthopnea, PND, ankle edema. PULM: No dyspnea, unexplained cough. GI: No dysphagia/odynophagia, REPORTS problematic reflux, constipation, diarrhea, changes in stool habits, hematochezia, melena. : No new urinary complaints, including dysuria, gross hematuria or pyuria. NEURO: No new balance problems, peripheral weakness/paresthesias or numbness of concern. MUSC-SKEL: No new joint pain, swelling, or erythema. PSY: No concerns regarding depression, anxiety or panic. INTEGUMENTARY: No new skin changes (rash, new or changing mole, new growth) Physical Exam: Constitutional: Pt is a well developed 66 year old female who is alert, oriented and cooperative Eyes: Following during examination. No redness or drainage. Respiratory: RR normal and nonlabored. Even breathing. No evidence of distress or shortness of breath. Psychology: Patient is engaged during conversation. Normal affect and mood. Does not appear depressed or anxious during encounter. Vascular: Dorsalis pedis and posterior tibial pulses palpable, bilateral Capillary Fill time < 5 seconds to digits 1-5 b/l Skin temperature warm to warm proximal to distal b/l Hair growth present to digits Neurological: intact light touch/epicritic sensation Vibratory sensation intact, b/l intact protective sensation Dermatological: Nails 1-5 b/l appear Normal. Webspaces clean and dry 1-4 b/l. Skin appears well hydrated and supple. good color, texture, turgor. Callosities absent. Open lesions absent. Musculoskeletal/Orthopaedic: Patient has pain to palpation of L Foot type is pronated structurally left AJ ROM is full with knee extended and flexed 1st MPJ is full when loaded and no pain or crepitus are noted with ROM. MTJ, STJ are full and free of pain and crepitus. +5/5 muscle strength dorsiflexion, plantarflexion, inversion, eversion b/l Radiographs: 3 views of left foot show mild spurring of midtarsal joint and there appears to be moderate arthritic changes noted of midtarsal joint. There is irregularity noted of left 5th toe ASSESSMENT: (S93.159A) Lisfranc dislocation, left, initial encounter (primary encounter diagnosis) (M14.672) Charcot's joint of left foot (S92.505A) Closed nondisplaced fracture of phalanx of lesser toe of left foot, unspecified phalanx, initial encounter Comment: Concern for charcot vs lisfranc fracture. Foot is extremely rotated outward, possible history of unknown/undiagnosed injury vs charcot. Would like to get CT of foot to further evaluate for charcot. Plan: 1. CT of L foot 2. Continue boot 3. NWB - will order wheelchair for patient 4. May require total contact cast vs surgical discussion pending ct scan 5. Boot for fracture of left 5th toe. RTC 1 week The documentation for this note was completed by Jannet Hooks Ma acting as scribe for Alexandru Toure DPM. August 12, 2017 9:18 AM. I agree with the Chief Complaint, ROS, and Past Histories independently gathered by the clinical sales support consultant and the remaining scribed note accurately describes my personal service to the patient. Alexandru Toure DPM CNOV Observed: 08/12/2017 Status: COMPLETED Source: [place] 8:40 AM [facility] REPOSITORY Office Visit (PODIWS) ANNETTE COMBS ([id number]) 1950 F Date Time Provider Department 08/12/17 8:40 AM ALEXANDRU TOURE PODJESUS MANUEL During your visit today, we recorded the following information about you: Alexandru Toure DPM 08/15/2017 10:44 PM Addendum ? Alexandru Toure DPM Department of Podiatry [address] [facility] [address] Dept: [phone] Dept 08/12/2017 Initial Podiatric Office Visit: HPI: Annette Combs is a 66 year old female. Patient presents with L 5th toe fracture. Patient reports that she fell in the shower on 08/04/17. Was seen by PCP on 08/06/17 and XR done. Patient has boot that she has been wearing. Patient reports constant 10/10 jabbing pain. Patient does take gabapentin and tramadol for back pain from her Pain Management, Dr. Iyer. Reports no relief in foot pain. Patient does have hx of drop foot, L, in which she has a brace for, but currently not wearing d/t fracture. Patient reports knot to L medial foot that she noticed last week. Unsure if present before fall. Painful with standing. Patient reports being diabetic, does not remember her blood glucose from yesterday and she has not checked today yet. Patient reports hx of PE and DVT. Patient denies being a smoker. Hemoglobin A1C (%) Date Value 04/11/2017 6.4 PCP: Bernardo Alfaro MD PAST MEDICAL HISTORY Diagnosis Date - Acute, but ill-defined, cerebrovascular disease - Allergic rhinitis, cause unspecified Allergic rhinitis - Anal and rectal polyp FIBROPLASTIC - Anemia, unspecified - Colitis, collagenous 09/03/2011 - CVA (cerebral infarction) 90 - Degenerative joint disease of right knee 10/19/2010 - Degenerative lumbar spinal stenosis - DVT (deep venous thrombosis) (HCC) - Generalized osteoarthrosis, unspecified site - KNEE JOINT REPLACEMENT STATUS 09/02/2006 - Left foot drop 01/05/2011 - 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 Almendarez - Nontraumatic rupture of patellar tendon July 2007; sugical repair 07/29/[address] Devries - Other and unspecified hyperlipidemia 06/20/2012 - Other pulmonary embolism and infarction - PULM EMBOLISM/INFARCT NOS - Scoliosis Xray from [facility] 08/03/11 showed; also has narrowing L3-L4 and L4- L5; DJD L3, L4, L5; slight anterior displacement L4 on L5. - Symptomatic menopausal or female climacteric states - Unspecified asthma(493.90) - Unspecified hemorrhoids without mention of complication Hemorrhoids - Urge incontinence 02/01/2005 - VENOUS THROMBOSIS LOWER EXTREMITY NOS 10/30/2006 Post op left knee arthroscopy; ?PE at that time Current Outpatient Prescriptions: COMPOUNDED PRESCRIPTION Sitz bath simvastatin (ZOCOR) 20 mg tablet take 1 tablet by mouth at bedtime gabapentin (NEURONTIN) 800 mg tablet Take 1 tablet by mouth three times daily. warfarin (COUMADIN) 5 mg tablet Take 1 tablet by mouth daily as directed. metFORMIN (GLUCOPHAGE) 500 mg tablet Take 1 tablet by mouth daily with breakfast. For diabetes. fluticasone-salmeterol (ADVAIR DISKUS) 100-50 mcg/dose dsdv Inhale 1 Puff as instructed twice daily. as directed Blood-Glucose Meter monitoring kit Glucose Meter of Choice - Kit - Dx: Type 2 DM - Uncontrolled E11.9 blood sugar diagnostic (BLOOD GLUCOSE TEST) test strip Test blood sugar(s) 2 times daily. Dx: Type 2 DM - Uncontrolled E11.9 Insulin: No Lancets lancets Test blood sugar(s) 2 times daily. Dx: Type 2 DM - Uncontrolled E11.9 Insulin: No Estradiol (YUVAFEM) 10 mcg tab vaginal tablet Use 1 tablet vaginally every Saturday and Saturday. omeprazole (PRILOSEC) 20 mg capsule Take 1 capsule by mouth daily before breakfast. 1/2 hr before meal. Levocetirizine (XYZAL) 5 mg tablet Take 1 tablet by mouth once daily. traMADol (ULTRAM) 50 mg tablet Take 1 tablet by mouth twice daily as needed for Pain. ASCORBIC ACID/BIOFLAVONOIDS (MELANIE C ORAL) Take 1 tablet by mouth once daily. oxybutynin XL (DITROPAN XL) 10 mg 24 hr tablet Take 1 tablet by mouth once daily. albuterol HFA (PROVENTIL HFA) 90 mcg/actuation inhaler Inhale 2 Puffs as instructed every 4 hours as needed for Wheezing/Shortness of Breath. MAY GIVE AVAILABLE EQUIVALENT ALBUTEROL HFA INHALER Calcium-Cholecalciferol, D3, (CALCIUM 500 + D, D3,) 500-125 mg-unit ORAL Tab Take two(2) tablets twice daily. [place]-3 Fatty Acids-Vitamin E (FISH OIL) 1,000 mg ORAL Cap Take 3 pills once daily (?dose) THERAPEUTIC MULTIVITAMIN ORAL TAB Take one(1) tablet daily. No current facility-administered medications for this visit. ALLERGIES Allergen Reactions - Chlorhexidine Itching - Cotton Other: See Comments eyes become red and headache - Darvon [Propoxyphen* Mental Status Change - Feathers Other: See Comments eyes become red and headache - Grass Pollen Itching - Morphine Mental Status Change - Vinegar Other: See Comments eyes become red and headache - Wool Other: See Comments eyes become red and headache PAST SURGICAL HISTORY Procedure Laterality Date - DELIVERY ONLY 1988 , low cervical - COLONOSCOPY 03/25/01 R Cebul - hyperplastic polyp - COLONOSCOPY W/BX 05/17/11 repeat - EGD W/O [facility] SPECIMEN W/BX 05/17/11 - FILTER PLACEMENT (VENA CAVA) 11-03-12 - HEMORRHOIDECT INTER/EXTER SIMP 03/27/01 - KNEE SCOPE,DIAGNOSTIC Left 05/10/2003 Arthroscopy, knee Left - L'SCOPE DX W/WO BRUSHINGS/WASHINGS 1999 Laparoscopy - LAMINECTOMY,LUMBAR 1994 Back surgery - LAMINECTOMY,LUMBAR 11/05/2012 Laminectomy, lumbar - LIGATE FALLOPIAN TUBE 1988 Tubal ligation - OPEN RX ANKLE DISLOCATN+FIXATN 1986 ORIF Ankle - PAST SURGICAL HISTORY OF 2003 Thumb bilateral - PAST SURGICAL HISTORY OF Left 07/2006 partial knee replacement left - PAST SURGICAL HISTORY OF Right 2008 repair knee cap - PAST SURGICAL HISTORY OF 03/26/2014 transurethral resection of bladder lesion. vaginal sling. Dr. Almendarez - REMOVAL OF OVARY/TUBE(S) 1999 Salpingo-oophorectomy bilateral - RETRIEV INTRAVASC FOREGN BODY 01/30/13 filter removal - TOTAL ABDOM HYSTERECTOMY 1999 AANDP REPAIR hyst for benign reason - TOTAL KNEE REPLACEMENT Right 2009 right knee replacement FAMILY HISTORY Problem Relation Age of Onset - Blood Disease Mother blood clot, coumadin - Hypertension Mother - Coronary Artery Disease Mother 84 - Cancer Father poss bladder - Prostate Cancer Father - None Sister - None Sister - None Sister - Diabetes Paternal Grandmother - Colon Cancer Paternal Grandmother - Stroke Paternal Grandfather - Diabetes Paternal Grandfather - Cancer Maternal Grandfather LEUKEMIA - Cancer Maternal Uncle - Psychiatry Sister anxiety Social History Marital status: Spouse name: Dot Years of education: 12 Number of children: 3 Occupational History 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 Feels safe. Uses cane. Drives. REVIEW OF SYSTEMS: CONSTITUTIONAL: No fevers, chills, nightsweats, unintended weight loss HEENT: Denies frequent or severe heaches, nasal congestion/sinus symptoms, REPORTS problematic allergy problems. EYES: No diplopia or blurry vision. CARDIOVASCULAR: No chest pain, dyspnea, palpitations, orthopnea, PND, ankle edema. PULM: No dyspnea, unexplained cough. GI: No dysphagia/odynophagia, REPORTS problematic reflux, constipation, diarrhea, changes in stool habits, hematochezia, melena. : No new urinary complaints, including dysuria, gross hematuria or pyuria. NEURO: No new balance problems, peripheral weakness/paresthesias or numbness of concern. MUSC-SKEL: No new joint pain, swelling, or erythema. PSY: No concerns regarding depression, anxiety or panic. INTEGUMENTARY: No new skin changes (rash, new or changing mole, new growth) Physical Exam: Constitutional: Pt is a well developed 66 year old female who is alert, oriented and cooperative Eyes: Following during examination. No redness or drainage. Respiratory: RR normal and nonlabored. Even breathing. No evidence of distress or shortness of breath. Psychology: Patient is engaged during conversation. Normal affect and mood. Does not appear depressed or anxious during encounter. Vascular: Dorsalis pedis and posterior tibial pulses palpable, bilateral Capillary Fill time < 5 seconds to digits 1-5 b/l Skin temperature warm to warm proximal to distal b/l Hair growth present to digits Neurological: intact light touch/epicritic sensation Vibratory sensation intact, b/l intact protective sensation Dermatological: Nails 1-5 b/l appear Normal. Webspaces clean and dry 1-4 b/l. Skin appears well hydrated and supple. good color, texture, turgor. Callosities absent. Open lesions absent. Musculoskeletal/Orthopaedic: Patient has pain to palpation of L Foot type is pronated structurally left AJ ROM is full with knee extended and flexed 1st MPJ is full when loaded and no pain or crepitus are noted with ROM. MTJ, STJ are full and free of pain and crepitus. +5/5 muscle strength dorsiflexion, plantarflexion, inversion, eversion b/l Radiographs: 3 views of left foot show mild spurring of midtarsal joint and there appears to be moderate arthritic changes noted of midtarsal joint. There is irregularity noted of left 5th toe ASSESSMENT: (S93.325A) Lisfranc dislocation, left, initial encounter (primary encounter diagnosis) (M14.672) Charcot's joint of left foot (S92.505A) Closed nondisplaced fracture of phalanx of lesser toe of left foot, unspecified phalanx, initial encounter Comment: Concern for charcot vs lisfranc fracture. Foot is extremely rotated outward, possible history of unknown/undiagnosed injury vs charcot. Would like to get CT of foot to further evaluate for charcot. Plan: 1. CT of L foot 2. Continue boot 3. NWB - will order wheelchair for patient 4. May require total contact cast vs surgical discussion pending ct scan 5. Boot for fracture of left 5th toe. RTC 1 week The documentation for this note was completed by Jannet Hooks Ma acting as scribe for Alexandru Toure DPM. August 12, 2017 9:18 AM. I agree with the Chief Complaint, ROS, and Past Histories independently gathered by the clinical sales support consultant and the remaining scribed note accurately describes my personal service to the patient. JESSICA Lee Ma 08/12/2017 9:46 AM Signed Continue with boot and non weight bearing. We have provided an order for a wheelchair that you can [facility] to [facility] to get. Please schedule CT of your of L foot to further evaluate for dislocation/charcot deformity. Once scheduled, our pre cert department with check with your insurance for coverage. If your insurance doesn't not cover, you and our office will be notified. Follow up in 1 week If you have any questions, please contact our office at [phone] and ask for Podiatry and a nurse. Referring Provider: SELF [[id number]] Allergies As of Date: 08/12/2017 Noted Allergy Reaction CHLORHEXIDINE 05/21/2013 9 - Itching COTTON 10/12/2004 14 - Other: See Comments Comments: eyes become red and headache DARVON (PROPOXYPHENE HCL) 04/20/2008 1 - Mental Status Change FEATHERS 10/12/2004 14 - Other: See Comments Comments: eyes become red and headache GRASS POLLEN 10/08/2012 9 - Itching MORPHINE 04/20/2008 1 - Mental Status Change VINEGAR 10/12/2004 14 - Other: See Comments Comments: eyes become red and headache WOOL 10/12/2004 14 - Other: See Comments Comments: eyes become red and headache Date Reviewed: 08/12/2017 Reviewed by: Jannet Hooks Ma - Fully Assessed Reason for Visit: Foot Fracture [1220] Primary Visit Diagnosis:Lisfranc dislocation, left, initial encounter [S93.325A] Other Visit Diagnoses:Dislocation of left foot, initial encounter [S93.305A] Charcot's joint of left foot [M14.672] Closed nondisplaced fracture of phalanx of lesser toe of left foot, unspecified phalanx, initial encounter [S92.505A] Order(s):CT FOOT WO IVCON LT [[id number]] Order #: [id number] FUTURE STANDARD WHEELCHAIR [[id number]] Order #: [id number] Prescriptions as of 08/12/2017 Sig: COMPOUNDED PRESCRIPTION Sitz bath SIMVASTATIN 20 MG TABLET take 1 tablet by mouth at bed* GABAPENTIN 800 MG TABLET Take 1 tablet by mouth three * WARFARIN 5 MG TABLET Take 1 tablet by mouth daily * METFORMIN 500 MG TABLET Take 1 tablet by mouth daily * FLUTICASONE 100 MCG-SALMETERO* Inhale 1 Puff as instructed t* BLOOD-GLUCOSE METER KIT Glucose Meter of Choice - Kit* BLOOD SUGAR DIAGNOSTIC STRIPS Test blood sugar(s) 2 times d* LANCETS Test blood sugar(s) 2 times d* ESTRADIOL 10 MCG VAGINAL TABL* Use 1 tablet vaginally every * OMEPRAZOLE 20 MG CAPSULE,AILYN* Take 1 capsule by mouth daily* LEVOCETIRIZINE 5 MG TABLET Take 1 tablet by mouth once d* TRAMADOL 50 MG TABLET Take 1 tablet by mouth twice * MELANIE C ORAL Take 1 tablet by mouth once d* OXYBUTYNIN CHLORIDE ER 10 MG * Take 1 tablet by mouth once d* ALBUTEROL SULFATE HFA 90 MCG/* Inhale 2 Puffs as instructed * CALCIUM CARBONATE 500 MG (1,2* Take two(2) tablets twice mike* OMEGA-3 FATTY ACIDS-VITAMIN E* Take 3 pills once daily (?dos* THERAPEUTIC MULTIVITAMIN TABL* Take one(1) tablet daily. Problem List As Of Date 08/12/2017 Noted Resolved Unspecified tinnitus [H93.19] 03/11/2012 Allergic rhinitis, cause unspecified [J30.9] GENERAL OSTEOARTHROSIS [M15.9] Carpal tunnel syndrome [G56.00] 03/11/2012 Dizziness and giddiness [R42] 03/11/2012 Contusion of unspecified part of trunk [S20.20X* 03/11/2012 Acute, but ill-defined, cerebrovascular disease* 03/11/2012 Other specified disorder of bladder [596.8] INVALID FOR*03/11/2012 Urge incontinence [N39.41] INVALID FOR*10/28/2014 Dermatophytosis of nail [B35.1] INVALID FOR*03/11/2012 Asthma [J45.909] BONE AND CARTILAGE DIS NOS [M89.9, M94.9] INVALID FOR* Other pulmonary embolism and infarction [I26.99] 03/11/2012 KNEE JOINT REPLACEMENT STATUS [Z96.659] INVALID FOR* Chronic deep vein thrombosis (DVT) of proximal *INVALID FOR* More... Symptomatic menopausal or female climacteric st*INVALID FOR*03/11/2012 Anxiety state, unspecified [F41.1] INVALID FOR*03/11/2012 Urgency of urination [R39.15] INVALID FOR*03/11/2012 Microscopic hematuria [R31.29] INVALID FOR*03/11/2012 Gross hematuria [R31.0] INVALID FOR*03/11/2012 DVT (deep venous thrombosis) [I82.409] INVALID FOR*03/11/2012 Osteoarthritis of basilar joint of thumb, left *INVALID FOR*03/11/2012 More... Degenerative joint disease of right knee [M17.1*INVALID FOR*03/11/2012 More... Lung nodule [R91.1] INVALID FOR*03/11/2012 More... Overlapping toe [M20.5X9] INVALID FOR*03/11/2012 More... Foot drop, left [M21.372] INVALID FOR* Other hammer toe (acquired) [M20.40] INVALID FOR*10/21/2013 Diarrhea [R19.7] INVALID FOR*03/11/2012 Anemia, unspecified [D64.9] INVALID FOR*03/11/2012 Dermatofibroma of right lower leg [D23.71] INVALID FOR*03/11/2012 Scar condition and fibrosis of skin [L90.5] INVALID FOR*03/11/2012 Other seborrheic keratosis [L82.1] INVALID FOR*03/11/2012 Melanocytic nevi of trunk: back [D22.5] INVALID FOR*10/28/2014 Other acne [L70.8] INVALID FOR*03/11/2012 Granuloma of hair follicle [L98.0] INVALID FOR*03/11/2012 Excoriation [T14.8XXA] INVALID FOR*03/11/2012 Actinic skin damage [L57.8] INVALID FOR*10/28/2014 Colitis, collagenous [K52.831] INVALID FOR*03/11/2012 Scoliosis [M41.9] 03/11/2012 More... Degenerative lumbar spinal stenosis [M48.061] INVALID FOR* More... 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 Mixed incontinence [N39.46] INVALID FOR* More... Spondylolisthesis of lumbar region [M43.16] INVALID FOR*11/08/2016 Gastroesophageal reflux disease [K21.9] INVALID FOR* Postlaminectomy syndrome [M96.1] INVALID FOR* Postmenopausal atrophic vaginitis [N95.2] INVALID FOR* Controlled type 2 diabetes mellitus with compli*INVALID FOR* Cognitive impairment [R41.89] INVALID FOR* CKD (chronic kidney disease) stage 3, GFR 30-59*INVALID FOR* Other instructions from your clinician: Continue with boot and non weight bearing. We have provided an order for a wheelchair that you can take to [facility] to get. Please schedule CT of your of L foot to further evaluate for dislocation/charcot deformity. Once scheduled, our pre cert department with check with your insurance for coverage. If your insurance doesn't not cover, you and our office will be notified. Follow up in 1 week If you have any questions, please contact our office at [phone] and ask for Podiatry and a nurse. Disposition: Return in about 1 week (around 08/19/2017). Follow-up and Disposition History Recorded Encounter Status:Closed by ALEXANDRU TOURE DPM on 08/12/17 PROGRESS Observed: 08/06/2017 Status: COMPLETED Source: [facility] 9:30 AM [facility] REPOSITORY HNO ID: [id number] Author: Shanelle Marrufo (Rt) Arnoldo Young Service: (none) Author Type: [place] Type: Progress Notes Filed: 08/06/2017 9:30 AM Note Text: Radiology Service Progress Note PATIENT NAME: Annette Combs DATE OF SERVICE: August 06, 2017 TIME: 9:30 AM PATIENT IDENTITY VERIFICATION COMPLETED USING TWO (2) METHODS: Patient confirmed name verbally and Date of . PATIENT GENDER DATA: Female. status: : No status: NO. PATIENT RELEVANT IMPLANT DATA REVIEWED: Not Applicable RADIOLOGY DEPARTMENT: General X-ray: Exam(s) Completed: Lower Extremity X-Ray(s): Foot, Left: PERIPHERAL IV DATA: Not applicable SIGNED BY: RT Alina August 06, 2017 9:30 AM XR FOOT 3V AP/LAT/OBL Observed: 08/06/2017 Status: F Source: [facility] 9:29 AM [facility] REPOSITORY * * *Final Report* * * DATE OF EXAM: Aug 06 2017 9:29AM WOX [id number] - XR FOOT 3V AP/LAT/OBL LT / PROCEDURE REASON: multiple diagnoses * * * * Physician Interpretation * * * * LEFT foot HISTORY: 66 years old Clinical information: Unspecified injury of left foot, initial encounter Other disturbances of skin sensation pt states fell in shower yesterday, has swelling midfoot medial side and arch area and pain forefoot left 5th and and MT TECHNIQUE: Images: XR FOOT 3V AP/LAT/OBL LT Comparison: 01/05/2015. RESULT: Findings: Mild narrowing of all the interphalangeal joints. Severe narrowing of the first metatarsal tarsal joint. Small anterior heel spur. There is irregularity in the distal end of the proximal phalanx of the fifth digit. This probably represents a fracture age uncertain from this study. It is new since 01/05/2015. Correlation with the area of tenderness recommended. IMPRESSION: Irregularity proximal phalanx fifth digit probably due to a fracture age uncertain. New since 01/05/2015 Correlation with the site of tenderness recommended. Instructor Watch Assembly: MARSHALL Transcribe Date/Time: Aug 07 2017 10:56A Dictated by : JERRY LE DO This examination was interpreted and the report reviewed and electronically signed by: JERRY LE DO on Aug 07 2017 11:05AM EST [id number] PROGRESS Observed: 08/06/2017 Status: COMPLETED Source: [facility] 9:00 AM [facility] REPOSITORY O ID: [id number] Author: Kimberly (Resident Hall Director) Older Service: (none) Author Type: Nurse Practitioner Type: Progress Notes Filed: 08/06/2017 9:19 AM Note Text: CC: Patient presents with: numbness great toe and left foot: x 2 days HPI Annette Combs is a 66 year old female who presents today for left foot swelling and numbness. Patient reports she fell on Saturday and hurt her left foot. Unsure of how she fell and can't recall how her foot injury occurred. She noticed yesterday when she took her shoe off the side of her foot was swollen and numb. No pain on that part of the foot. Her left 4 and 5 toe are bruised and tender. Aggravated by walking and wearing shoes. Denies any history of foot swelling or numbness. Has drop foot on the left, wears a brace but has not been able to put on due to pain in the toes. 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 Almendarez - Nontraumatic rupture of patellar tendon July 2007; sugical repair 07/29/[address] Devries - Other and unspecified hyperlipidemia 06/20/2012 - Other pulmonary embolism and infarction - PULM EMBOLISM/INFARCT NOS - Scoliosis Xray from [facility] 08/03/11 showed; also has narrowing L3-L4 and L4- L5; DJD L3, L4, L5; slight anterior displacement L4 on L5. - Symptomatic menopausal or female climacteric states - Unspecified asthma(493.90) - Unspecified hemorrhoids without mention of complication Hemorrhoids - Urge incontinence 02/01/2005 - VENOUS THROMBOSIS LOWER EXTREMITY NOS 10/30/2006 Post op left knee arthroscopy; ?PE at that time PAST SURGICAL HISTORY Procedure Laterality Date - DELIVERY ONLY 1988 , low cervical - COLONOSCOPY 03/25/01 R Cebul - hyperplastic polyp - COLONOSCOPY W/BX 05/17/11 repeat - EGD W/O [facility] SPECIMEN W/BX 05/17/11 - FILTER PLACEMENT (VENA CAVA) 11-03-12 - HEMORRHOIDECT INTER/EXTER SIMP 03/27/01 - KNEE SCOPE,DIAGNOSTIC Left 05/10/2003 Arthroscopy, knee Left - L'SCOPE DX W/WO BRUSHINGS/WASHINGS 1999 Laparoscopy - LAMINECTOMY,LUMBAR 1994 Back surgery - LAMINECTOMY,LUMBAR 11/05/2012 Laminectomy, lumbar - LIGATE FALLOPIAN TUBE 1988 Tubal ligation - OPEN RX ANKLE DISLOCATN+FIXATN 1986 ORIF Ankle - PAST SURGICAL HISTORY OF 2004 Thumb bilateral - PAST SURGICAL HISTORY OF Left 07/2006 partial knee replacement left - PAST SURGICAL HISTORY OF Right 2008 repair knee cap - PAST SURGICAL HISTORY OF 03/26/2014 transurethral resection of bladder lesion. vaginal sling. Dr. Almendarez - REMOVAL OF OVARY/TUBE(S) 1999 Salpingo-oophorectomy bilateral - RETRIEV INTRAVASC FOREGN BODY 01/30/13 filter removal - TOTAL ABDOM HYSTERECTOMY 1999 AANDP REPAIR hyst for benign reason - TOTAL KNEE REPLACEMENT Right 2009 right knee replacement ALLERGIES Chlorhexidine; Cotton; Darvon [Propoxyphene Hcl]; Feathers; Grass Pollen; Morphine; Vinegar; Wool MEDICATIONS COMPOUNDED PRESCRIPTION Sitz bath simvastatin (ZOCOR) 20 mg tablet take 1 tablet by mouth at bedtime gabapentin (NEURONTIN) 800 mg tablet Take 1 tablet by mouth three times daily. warfarin (COUMADIN) 5 mg tablet Take 1 tablet by mouth daily as directed. metFORMIN (GLUCOPHAGE) 500 mg tablet Take 1 tablet by mouth daily with breakfast. For diabetes. fluticasone-salmeterol (ADVAIR DISKUS) 100-50 mcg/dose dsdv Inhale 1 Puff as instructed twice daily. as directed Blood-Glucose Meter monitoring kit Glucose Meter of Choice - Kit - Dx: Type 2 DM - Uncontrolled E11.9 blood sugar diagnostic (BLOOD GLUCOSE TEST) test strip Test blood sugar(s) 2 times daily. Dx: Type 2 DM - Uncontrolled E11.9 Insulin: No Lancets lancets Test blood sugar(s) 2 times daily. Dx: Type 2 DM - Uncontrolled E11.9 Insulin: No Estradiol (YUVAFEM) 10 mcg tab vaginal tablet Use 1 tablet vaginally every Saturday and Saturday. omeprazole (PRILOSEC) 20 mg capsule Take 1 capsule by mouth daily before breakfast. 1/2 hr before meal. Levocetirizine (XYZAL) 5 mg tablet Take 1 tablet by mouth once daily. traMADol (ULTRAM) 50 mg tablet Take 1 tablet by mouth twice daily as needed for Pain. ASCORBIC ACID/BIOFLAVONOIDS (MELANIE C ORAL) Take 1 tablet by mouth once daily. oxybutynin XL (DITROPAN XL) 10 mg 24 hr tablet Take 1 tablet by mouth once daily. albuterol HFA (PROVENTIL HFA) 90 mcg/actuation inhaler Inhale 2 Puffs as instructed every 4 hours as needed for Wheezing/Shortness of Breath. MAY GIVE AVAILABLE EQUIVALENT ALBUTEROL HFA INHALER Calcium-Cholecalciferol, D3, (CALCIUM 500 + D, D3,) 500-125 mg-unit ORAL Tab Take two(2) tablets twice daily. [place]-3 Fatty Acids-Vitamin E (FISH OIL) 1,000 mg ORAL Cap Take 3 pills once daily (?dose) THERAPEUTIC MULTIVITAMIN ORAL TAB Take one(1) tablet daily. FAMILY HISTORY Problem Relation Age of Onset - Blood Disease Mother blood clot, coumadin - Hypertension Mother - Coronary Artery Disease Mother 84 - Cancer Father poss bladder - Prostate Cancer Father - None Sister - None Sister - None Sister - Diabetes Paternal Grandmother - Colon Cancer Paternal Grandmother - Stroke Paternal Grandfather - Diabetes Paternal Grandfather - Cancer Maternal Grandfather LEUKEMIA - Cancer Maternal Uncle - Psychiatry Sister anxiety Social History Substance Use Topics - Smoking status: Former Smoker Quit date: 02/18/1969 - Smokeless tobacco: Never Used - Alcohol use No Comment: rarely, one drink every 3-4 hours PHYSICAL EXAM BP 119/89 Pulse 68 Temp 36.4 ?C (97.5 ?F) (Temporal Artery) Resp 16 Wt 77.6 kg (171 lb) SpO2 98% BMI 30.49 kg/m? General Appearance: well appearing, in no acute distress, alert Lower Extremities: Localized edema on top of foot, medial side, no tenderness with palpation. Decreased sensation top of foot with monofilament. Vibratory sensation intact. Left 4th and 5th toes bruised and very tender. Unable to move due to pain. Pulses: left 2+, No deformities present, No evidence of joint instability, ROM of all joints is normal, Strength normal, Reflexes 1+ and symmetric. ASSESSMENT/PLAN: 1. Foot injury, left, initial encounter - ICD9: 959.7, ICD10: S99.922A (primary diagnosis) Swelling possibly due to injury, etiology of numbness unclear. No alarm symptoms or exam findings. Work-up with stat: - XR FOOT GENERAL 3V AP/LAT/OBL LT - XR TOE AP/LAT/OBL LT Follow-up pending results 2. Numbness of left foot - ICD9: 782.0, ICD10: R20.8 As above - XR FOOT GENERAL 3V AP/LAT/OBL LT - XR TOE AP/LAT/OBL LT Prescription instructions reviewed with patient as applicable. Potential red flag symptoms discussed with the patient. Reviewed appropriate action plan to take if red flag symptoms occur. Patient agreeable to treatment plan. Kimberly Farah APRN.M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 CNOV Observed: 08/06/2017 Status: COMPLETED Source: [facility] 8:40 AM [facility] Office Visit (INTMWS) ANNETTE COMBS ([id number]) 1950 F Date Time Provider Department 08/06/17 8:40 AM KIMBERLY FARAH ([place]) INTMWS During your visit today, we recorded the following information about you: Temperature Pulse Respiration Blood pressure 97.5 degrees 68/minute 16/minute 119/89 Weight 77.6 kg Kimberly Farah RADIO FREQUENCY DESIGN ENGINEER.[place] 08/06/2017 9:19 AM Signed CC: Patient presents with: numbness great toe and left foot: x 2 days HPI Annette Combs is a 66 year old female who presents today for left foot swelling and numbness. Patient reports she fell on Saturday and hurt her left foot. Unsure of how she fell and can't recall how her foot injury occurred. She noticed yesterday when she took her shoe off the side of her foot was swollen and numb. No pain on that part of the foot. Her left 4 and 5 toe are bruised and tender. Aggravated by walking and wearing shoes. Denies any history of foot swelling or numbness. Has drop foot on the left, wears a brace but has not been able to put on due to pain in the toes. 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 Almendarez - Nontraumatic rupture of patellar tendon July 2007; sugical repair 07/29/[address] Devries - Other and unspecified hyperlipidemia 06/20/2012 - Other pulmonary embolism and infarction - PULM EMBOLISM/INFARCT NOS - Scoliosis Xray from [facility] 08/03/11 showed; also has narrowing L3-L4 and L4- L5; DJD L3, L4, L5; slight anterior displacement L4 on L5. - Symptomatic menopausal or female climacteric states - Unspecified asthma(493.90) - Unspecified hemorrhoids without mention of complication Hemorrhoids - Urge incontinence 02/01/2005 - VENOUS THROMBOSIS LOWER EXTREMITY NOS 10/30/2006 Post op left knee arthroscopy; ?PE at that time PAST SURGICAL HISTORY Procedure Laterality Date - DELIVERY ONLY 1988 , low cervical - COLONOSCOPY 03/25/01 R Cebul - hyperplastic polyp - COLONOSCOPY W/BX 05/17/11 repeat - EGD W/O [facility] SPECIMEN W/BX 05/17/11 - FILTER PLACEMENT (VENA CAVA) 11-03-12 - HEMORRHOIDECT INTER/EXTER SIMP 03/27/01 - KNEE SCOPE,DIAGNOSTIC Left 05/10/2003 Arthroscopy, knee Left - L'SCOPE DX W/WO BRUSHINGS/WASHINGS 1999 Laparoscopy - LAMINECTOMY,LUMBAR 1994 Back surgery - LAMINECTOMY,LUMBAR 11/05/2012 Laminectomy, lumbar - LIGATE FALLOPIAN TUBE 1988 Tubal ligation - OPEN RX ANKLE DISLOCATN+FIXATN 1986 ORIF Ankle - PAST SURGICAL HISTORY OF 2003 Thumb bilateral - PAST SURGICAL HISTORY OF Left 07/2006 partial knee replacement left - PAST SURGICAL HISTORY OF Right 2008 repair knee cap - PAST SURGICAL HISTORY OF 03/26/2014 transurethral resection of bladder lesion. vaginal sling. Dr. Almendarez - REMOVAL OF OVARY/TUBE(S) 1999 Salpingo-oophorectomy bilateral - RETRIEV INTRAVASC FOREGN BODY 01/30/13 filter removal - TOTAL ABDOM HYSTERECTOMY 1999 AANDP REPAIR hyst for benign reason - TOTAL KNEE REPLACEMENT Right 2009 right knee replacement ALLERGIES Chlorhexidine; Cotton; Darvon [Propoxyphene Hcl]; Feathers; Grass Pollen; Morphine; Vinegar; Wool MEDICATIONS COMPOUNDED PRESCRIPTION Sitz bath simvastatin (ZOCOR) 20 mg tablet take 1 tablet by mouth at bedtime gabapentin (NEURONTIN) 800 mg tablet Take 1 tablet by mouth three times daily. warfarin (COUMADIN) 5 mg tablet Take 1 tablet by mouth daily as directed. metFORMIN (GLUCOPHAGE) 500 mg tablet Take 1 tablet by mouth daily with breakfast. For diabetes. fluticasone-salmeterol (ADVAIR DISKUS) 100-50 mcg/dose dsdv Inhale 1 Puff as instructed twice daily. as directed Blood-Glucose Meter monitoring kit Glucose Meter of Choice - Kit - Dx: Type 2 DM - Uncontrolled E11.9 blood sugar diagnostic (BLOOD GLUCOSE TEST) test strip Test blood sugar(s) 2 times daily. Dx: Type 2 DM - Uncontrolled E11.9 Insulin: No Lancets lancets Test blood sugar(s) 2 times daily. Dx: Type 2 DM - Uncontrolled E11.9 Insulin: No Estradiol (YUVAFEM) 10 mcg tab vaginal tablet Use 1 tablet vaginally every Saturday and Saturday. omeprazole (PRILOSEC) 20 mg capsule Take 1 capsule by mouth daily before breakfast. 1/2 hr before meal. Levocetirizine (XYZAL) 5 mg tablet Take 1 tablet by mouth once daily. traMADol (ULTRAM) 50 mg tablet Take 1 tablet by mouth twice daily as needed for Pain. ASCORBIC ACID/BIOFLAVONOIDS (MELANIE C ORAL) Take 1 tablet by mouth once daily. oxybutynin XL (DITROPAN XL) 10 mg 24 hr tablet Take 1 tablet by mouth once daily. albuterol HFA (PROVENTIL HFA) 90 mcg/actuation inhaler Inhale 2 Puffs as instructed every 4 hours as needed for Wheezing/Shortness of Breath. MAY GIVE AVAILABLE EQUIVALENT ALBUTEROL HFA INHALER Calcium-Cholecalciferol, D3, (CALCIUM 500 + D, D3,) 500-125 mg-unit ORAL Tab Take two(2) tablets twice daily. [place]-3 Fatty Acids-Vitamin E (FISH OIL) 1,000 mg ORAL Cap Take 3 pills once daily (?dose) THERAPEUTIC MULTIVITAMIN ORAL TAB Take one(1) tablet daily. FAMILY HISTORY Problem Relation Age of Onset - Blood Disease Mother blood clot, coumadin - Hypertension Mother - Coronary Artery Disease Mother 84 - Cancer Father poss bladder - Prostate Cancer Father - None Sister - None Sister - None Sister - Diabetes Paternal Grandmother - Colon Cancer Paternal Grandmother - Stroke Paternal Grandfather - Diabetes Paternal Grandfather - Cancer Maternal Grandfather LEUKEMIA - Cancer Maternal Uncle - Psychiatry Sister anxiety Social History Substance Use Topics - Smoking status: Former Smoker Quit date: 02/18/1969 - Smokeless tobacco: Never Used - Alcohol use No Comment: rarely, one drink every 3-4 hours PHYSICAL EXAM BP 119/89 Pulse 68 Temp 36.4 ?C (97.5 ?F) (Temporal Artery) Resp 16 Wt 77.6 kg (171 lb) SpO2 98% BMI 30.49 kg/m? General Appearance: well appearing, in no acute distress, alert Lower Extremities: Localized edema on top of foot, medial side, no tenderness with palpation. Decreased sensation top of foot with monofilament. Vibratory sensation intact. Left 4th and 5th toes bruised and very tender. Unable to move due to pain. Pulses: left 2+, No deformities present, No evidence of joint instability, ROM of all joints is normal, Strength normal, Reflexes 1+ and symmetric. ASSESSMENT/PLAN: 1. Foot injury, left, initial encounter - ICD9: 959.7, ICD10: S99.922A (primary diagnosis) Swelling possibly due to injury, etiology of numbness unclear. No alarm symptoms or exam findings. Work-up with stat: - XR FOOT GENERAL 3V AP/LAT/OBL LT - XR TOE AP/LAT/OBL LT Follow-up pending results 2. Numbness of left foot - ICD9: 782.0, ICD10: R20.8 As above - XR FOOT GENERAL 3V AP/LAT/OBL LT - XR TOE AP/LAT/OBL LT Prescription instructions reviewed with patient as applicable. Potential red flag symptoms discussed with the patient. Reviewed appropriate action plan to take if red flag symptoms occur. Patient agreeable to treatment plan. RUBIO Sands APRN.CNP 08/06/2017 9:08 AM Signed Continue to use ice on foot, keep it elevated when sitting. Referring Provider: SELF [200] Allergies As of Date: 08/06/2017 Noted Allergy Reaction CHLORHEXIDINE 05/21/2013 9 - Itching COTTON 10/12/2004 14 - Other: See Comments Comments: eyes become red and headache DARVON (PROPOXYPHENE HCL) 04/20/2008 1 - Mental Status Change FEATHERS 10/12/2004 14 - Other: See Comments Comments: eyes become red and headache GRASS POLLEN 10/08/2012 9 - Itching MORPHINE 04/20/2008 1 - Mental Status Change VINEGAR 10/12/2004 14 - Other: See Comments Comments: eyes become red and headache WOOL 10/12/2004 14 - Other: See Comments Comments: eyes become red and headache Date Reviewed: 08/06/2017 Reviewed by: Roseann Rice Elevator Service Technician - Fully Assessed Reason for Visit: numbness great toe and left foot [Other] Cmt: x 2 days Primary Visit Diagnosis:Foot injury, left, initial encounter [S99.922A] Other Visit Diagnosis:Numbness of left foot [R20.8] Order(s):XR FOOT GENERAL 3V AP/LAT/OBL LT [[id number]] Order #: [id number] FUTURE XR TOE AP/LAT/OBL LT [[id number]] Order #: [id number] FUTURE Prescriptions as of 08/06/2017 Sig: COMPOUNDED PRESCRIPTION Sitz bath SIMVASTATIN 20 MG TABLET take 1 tablet by mouth at bed* GABAPENTIN 800 MG TABLET Take 1 tablet by mouth three * WARFARIN 5 MG TABLET Take 1 tablet by mouth daily * METFORMIN 500 MG TABLET Take 1 tablet by mouth daily * FLUTICASONE 100 MCG-SALMETERO* Inhale 1 Puff as instructed t* BLOOD-GLUCOSE METER KIT Glucose Meter of Choice - Kit* BLOOD SUGAR DIAGNOSTIC STRIPS Test blood sugar(s) 2 times d* LANCETS Test blood sugar(s) 2 times d* ESTRADIOL 10 MCG VAGINAL TABL* Use 1 tablet vaginally every * OMEPRAZOLE 20 MG CAPSULE,AILYN* Take 1 capsule by mouth daily* LEVOCETIRIZINE 5 MG TABLET Take 1 tablet by mouth once d* TRAMADOL 50 MG TABLET Take 1 tablet by mouth twice * MELANIE C ORAL Take 1 tablet by mouth once d* OXYBUTYNIN CHLORIDE ER 10 MG * Take 1 tablet by mouth once d* ALBUTEROL SULFATE HFA 90 MCG/* Inhale 2 Puffs as instructed * CALCIUM CARBONATE 500 MG (1,2* Take two(2) tablets twice mike* OMEGA-3 FATTY ACIDS-VITAMIN E* Take 3 pills once daily (?dos* THERAPEUTIC MULTIVITAMIN TABL* Take one(1) tablet daily. Problem List As Of Date 08/06/2017 Noted Resolved Unspecified tinnitus [H93.19] 03/11/2012 Allergic rhinitis, cause unspecified [J30.9] GENERAL OSTEOARTHROSIS [M15.9] Carpal tunnel syndrome [G56.00] 03/11/2012 Dizziness and giddiness [R42] 03/11/2012 Contusion of unspecified part of trunk [S20.20X* 03/11/2012 Acute, but ill-defined, cerebrovascular disease* 03/11/2012 Other specified disorder of bladder [596.8] INVALID FOR*03/11/2012 Urge incontinence [N39.41] INVALID FOR*10/28/2014 Dermatophytosis of nail [B35.1] INVALID FOR*03/11/2012 Asthma [J45.909] BONE AND CARTILAGE DIS NOS [M89.9, M94.9] INVALID FOR* Other pulmonary embolism and infarction [I26.99] 03/11/2012 KNEE JOINT REPLACEMENT STATUS [Z96.659] INVALID FOR* Chronic deep vein thrombosis (DVT) of proximal *INVALID FOR* More... Symptomatic menopausal or female climacteric st*INVALID FOR*03/11/2012 Anxiety state, unspecified [F41.1] INVALID FOR*03/11/2012 Urgency of urination [R39.15] INVALID FOR*03/11/2012 Microscopic hematuria [R31.29] INVALID FOR*03/11/2012 Gross hematuria [R31.0] INVALID FOR*03/11/2012 DVT (deep venous thrombosis) [I82.409] INVALID FOR*03/11/2012 Osteoarthritis of basilar joint of thumb, left *INVALID FOR*03/11/2012 More... Degenerative joint disease of right knee [M17.1*INVALID FOR*03/11/2012 More... Lung nodule [R91.1] INVALID FOR*03/11/2012 More... Overlapping toe [M20.5X9] INVALID FOR*03/11/2012 More... Foot drop, left [M21.372] INVALID FOR* Other hammer toe (acquired) [M20.40] INVALID FOR*10/21/2013 Diarrhea [R19.7] INVALID FOR*03/11/2012 Anemia, unspecified [D64.9] INVALID FOR*03/11/2012 Dermatofibroma of right lower leg [D23.71] INVALID FOR*03/11/2012 Scar condition and fibrosis of skin [L90.5] INVALID FOR*03/11/2012 Other seborrheic keratosis [L82.1] INVALID FOR*03/11/2012 Melanocytic nevi of trunk: back [D22.5] INVALID FOR*10/28/2014 Other acne [L70.8] INVALID FOR*03/11/2012 Granuloma of hair follicle [L98.0] INVALID FOR*03/11/2012 Excoriation [T14.8XXA] INVALID FOR*03/11/2012 Actinic skin damage [L57.8] INVALID FOR*10/28/2014 Colitis, collagenous [K52.831] INVALID FOR*03/11/2012 Scoliosis [M41.9] 03/11/2012 More... Degenerative lumbar spinal stenosis [M48.061] INVALID FOR* More... 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 Mixed incontinence [N39.46] INVALID FOR* More... Spondylolisthesis of lumbar region [M43.16] INVALID FOR*11/08/2016 Gastroesophageal reflux disease [K21.9] INVALID FOR* Postlaminectomy syndrome [M96.1] INVALID FOR* Postmenopausal atrophic vaginitis [N95.2] INVALID FOR* Controlled type 2 diabetes mellitus with compli*INVALID FOR* Cognitive impairment [R41.89] INVALID FOR* CKD (chronic kidney disease) stage 3, GFR 30-59*INVALID FOR* Other instructions from your clinician: Continue to use ice on foot, keep it elevated when sitting. Follow-up and Disposition History Recorded Encounter Status:Closed by KIMBERLY FARAH CNP on 08/06/17 PROGRESS Observed: 08/01/2017 Status: COMPLETED Source: [place] 2:31 PM [facility] REPOSITORY HNO ID: [id number] Author: Tracy August LPN Service: (none) Author Type: (none) Type: Progress Notes Filed: 08/01/2017 2:32 PM Note Text: This note was created using NoteWriter. Subjective Annette Combs is a 66 year old female. Review of Systems Objective There were no vitals taken for this visit. Physical Exam Assessment and Plan Patient notified of results and provider's instructions. Patient verbalizes understanding. Pt want INR checked at [facility] until the RN returns from the coumadin clinic. Tracy August LPN PROGRESS Observed: 08/01/2017 Status: COMPLETED Source: [place] 1:23 PM [facility] REPOSITORY HNO ID: [id number] Author: Bernardo Alfaro Service: (none) Author Type: Physician Type: Progress Notes Filed: 08/01/2017 2:32 PM Note Text: Take coumadin 7.5 mg total for today only. Tomorrow resume usual dose:5 mg Sat thru Fridays and 7.5 mg Sat, Sundays. INR in 2 weeks. PROGRESS Observed: 08/01/2017 Status: COMPLETED Source: [place] 7:51 AM [facility] REPOSITORY HNO ID: [id number] Author: Margarita Colindres RN Service: (none) Author Type: (none) Type: Progress Notes Filed: 08/01/2017 7:52 AM Note Text: patient had inr completed at [facility] patients inr is 1.8 (patients inr range is 2.0-3.0) patient is currently taking 7.5mg Sat,Sat and 5mg all other days patients last dose change was on 05/09/17 due to a low level of 1.8 (dose at that time was 5mg daily) patient has had no changes in medication and no missed doses and no change in diet Advised patient that they would be contacted regarding medication dose and when to follow up after information is reviewed by provider. After provider review please contact the patient with information and schedule follow up appointment with coumadin clinic. FYI - patient has been scheduled for a 2 week follow up inr on 08/15/17 PROGRESS Observed: 07/22/2017 Status: COMPLETED Source: [place] 8:00 AM [facility] REPOSITORY HNO ID: [id number] Author: Kimberly Farah Service: (none) Author Type: Nurse Practitioner Type: Progress Notes Filed: 07/22/2017 8:04 AM Note Text: CC: Patient presents with: Follow Up HPI Annette Combs is a 66 year old female who presents today for open wound follow-up. Patient was seen last week, found to have open wound to left buttock of unknown etiology. Possibly infected, prescribed Augmentin. Today patient reports feel that wound is better. Only tender if she sits on it wrong. Has been using Sitz baths which helps with discomfort. Denies drainage, fever, chills, body aches, nausea, fatigue. 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 Almendarez - Nontraumatic rupture of patellar tendon July 2007; sugical repair 07/29/[address] Devries - Other and unspecified hyperlipidemia 06/20/2012 - Other pulmonary embolism and infarction - PULM EMBOLISM/INFARCT NOS - Scoliosis Xray from [facility] 08/03/11 showed; also has narrowing L3-L4 and L4- L5; DJD L3, L4, L5; slight anterior displacement L4 on L5. - Symptomatic menopausal or female climacteric states - Unspecified asthma(493.90) - Unspecified hemorrhoids without mention of complication Hemorrhoids - Urge incontinence 02/01/2005 - VENOUS THROMBOSIS LOWER EXTREMITY NOS 10/30/2006 Post op left knee arthroscopy; ?PE at that time PAST SURGICAL HISTORY Procedure Laterality Date - DELIVERY ONLY 1988 , low cervical - COLONOSCOPY 03/25/01 R Cebul - hyperplastic polyp - COLONOSCOPY W/BX 05/17/11 repeat - EGD W/O [facility] SPECIMEN W/BX 05/17/11 - FILTER PLACEMENT (VENA CAVA) 11-03-12 - HEMORRHOIDECT INTER/EXTER SIMP 03/27/01 - KNEE SCOPE,DIAGNOSTIC Left 05/10/2003 Arthroscopy, knee Left - L'SCOPE DX W/WO BRUSHINGS/WASHINGS 1999 Laparoscopy - LAMINECTOMY,LUMBAR 1994 Back surgery - LAMINECTOMY,LUMBAR 11/05/2012 Laminectomy, lumbar - LIGATE FALLOPIAN TUBE 1988 Tubal ligation - OPEN RX ANKLE DISLOCATN+FIXATN 1986 ORIF Ankle - PAST SURGICAL HISTORY OF 2004 Thumb bilateral - PAST SURGICAL HISTORY OF Left 07/2006 partial knee replacement left - PAST SURGICAL HISTORY OF Right 2008 repair knee cap - PAST SURGICAL HISTORY OF 03/26/2014 transurethral resection of bladder lesion. vaginal sling. Dr. Almendarez - REMOVAL OF OVARY/TUBE(S) 1999 Salpingo-oophorectomy bilateral - RETRIEV INTRAVASC FOREGN BODY 01/30/13 filter removal - TOTAL ABDOM HYSTERECTOMY 1999 AANDP REPAIR hyst for benign reason - TOTAL KNEE REPLACEMENT Right 2009 right knee replacement ALLERGIES Chlorhexidine; Cotton; Darvon [Propoxyphene Hcl]; Feathers; Grass Pollen; Morphine; Vinegar; Wool MEDICATIONS amoxicillin-clavulanic acid (AUGMENTIN) 875-125 mg per tablet Take 1 tablet by mouth twice daily for 7 days. COMPOUNDED PRESCRIPTION Sitz bath simvastatin (ZOCOR) 20 mg tablet take 1 tablet by mouth at bedtime gabapentin (NEURONTIN) 800 mg tablet Take 1 tablet by mouth three times daily. warfarin (COUMADIN) 5 mg tablet Take 1 tablet by mouth daily as directed. metFORMIN (GLUCOPHAGE) 500 mg tablet Take 1 tablet by mouth daily with breakfast. For diabetes. fluticasone-salmeterol (ADVAIR DISKUS) 100-50 mcg/dose dsdv Inhale 1 Puff as instructed twice daily. as directed Blood-Glucose Meter monitoring kit Glucose Meter of Choice - Kit - Dx: Type 2 DM - Uncontrolled E11.9 blood sugar diagnostic (BLOOD GLUCOSE TEST) test strip Test blood sugar(s) 2 times daily. Dx: Type 2 DM - Uncontrolled E11.9 Insulin: No Lancets lancets Test blood sugar(s) 2 times daily. Dx: Type 2 DM - Uncontrolled E11.9 Insulin: No Estradiol (YUVAFEM) 10 mcg tab vaginal tablet Use 1 tablet vaginally every Saturday and Saturday. omeprazole (PRILOSEC) 20 mg capsule Take 1 capsule by mouth daily before breakfast. 1/2 hr before meal. Levocetirizine (XYZAL) 5 mg tablet Take 1 tablet by mouth once daily. traMADol (ULTRAM) 50 mg tablet Take 1 tablet by mouth twice daily as needed for Pain. ASCORBIC ACID/BIOFLAVONOIDS (MELANIE C ORAL) Take 1 tablet by mouth once daily. oxybutynin XL (DITROPAN XL) 10 mg 24 hr tablet Take 1 tablet by mouth once daily. albuterol HFA (PROVENTIL HFA) 90 mcg/actuation inhaler Inhale 2 Puffs as instructed every 4 hours as needed for Wheezing/Shortness of Breath. MAY GIVE AVAILABLE EQUIVALENT ALBUTEROL HFA INHALER Calcium-Cholecalciferol, D3, (CALCIUM 500 + D, D3,) 500-125 mg-unit ORAL Tab Take two(2) tablets twice daily. [place]-3 Fatty Acids-Vitamin E (FISH OIL) 1,000 mg ORAL Cap Take 3 pills once daily (?dose) THERAPEUTIC MULTIVITAMIN ORAL TAB Take one(1) tablet daily. FAMILY HISTORY Problem Relation Age of Onset - Blood Disease Mother blood clot, coumadin - Hypertension Mother - Coronary Artery Disease Mother 84 - Cancer Father poss bladder - Prostate Cancer Father - None Sister - None Sister - None Sister - Diabetes Paternal Grandmother - Colon Cancer Paternal Grandmother - Stroke Paternal Grandfather - Diabetes Paternal Grandfather - Cancer Maternal Grandfather LEUKEMIA - Cancer Maternal Uncle - Psychiatry Sister anxiety Social History Substance Use Topics - Smoking status: Former Smoker Quit date: 02/18/1969 - Smokeless tobacco: Never Used - Alcohol use No Comment: rarely, one drink every 3-4 hours PHYSICAL EXAM BP 116/72 (BP Site: Left Arm, BP Position: Sitting, BP Cuff Size: Regular Adult) Pulse 84 Resp 16 Wt 77.1 kg (170 lb) BMI 30.31 kg/m? General Appearance: well appearing, in no acute distress, alert Rectal: left buttock: 1 x 1/2 cm open area, wound bed with yellow slough, no tunneling. No tenderness with palpation. No induration, drainage, fluctuance or erythema. ASSESSMENT/PLAN: 1. Open wound of buttock, left, subsequent encounter - ICD9: V58.89, 877.0, ICD10: S31.829D Healing well, infection resolved Continue with antibiotics until complete. Can also continue with pain relief measures to monitor at home and notify office if worsens or persists Prescription instructions reviewed with patient as applicable. Potential red flag symptoms discussed with the patient. Reviewed appropriate action plan to take if red flag symptoms occur. Patient agreeable to treatment plan. Kimberly Farah APRN.CNP CNOV Observed: 07/22/2017 Status: COMPLETED Source: [place] 7:40 AM [facility] REPOSITORY Office Visit (INTMWS) ANNETTE COMBS ([id number]) 1950 F Date Time Provider Department 07/22/17 7:40 AM KIMBERLY FARAH ([facility]) INTMWS During your visit today, we recorded the following information about you: Pulse Respiration Blood pressure Weight 84/minute 16/minute 116/72 77.1 kg Kimberly Farah APRN.CNP 07/22/2017 7:58 AM Signed Finish out antibiotics as prescribed. Continue to monitor wound and call office if wound does not appear to be healing RUBIO Sands APRN.CNP 07/22/2017 8:04 AM Signed CC: Patient presents with: Follow Up HPI Annette Combs is a 66 year old female who presents today for open wound follow-up. Patient was seen last week, found to have open wound to left buttock of unknown etiology. Possibly infected, prescribed Augmentin. Today patient reports feel that wound is better. Only tender if she sits on it wrong. Has been using Sitz baths which helps with discomfort. Denies drainage, fever, chills, body aches, nausea, fatigue. 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 Almendarez - Nontraumatic rupture of patellar tendon July 2007; sugical repair 07/29/[address] Devries - Other and unspecified hyperlipidemia 06/20/2012 - Other pulmonary embolism and infarction - PULM EMBOLISM/INFARCT NOS - Scoliosis Xray from [facility] 08/03/11 showed; also has narrowing L3-L4 and L4- L5; DJD L3, L4, L5; slight anterior displacement L4 on L5. - Symptomatic menopausal or female climacteric states - Unspecified asthma(493.90) - Unspecified hemorrhoids without mention of complication Hemorrhoids - Urge incontinence 02/01/2005 - VENOUS THROMBOSIS LOWER EXTREMITY NOS 10/30/2006 Post op left knee arthroscopy; ?PE at that time PAST SURGICAL HISTORY Procedure Laterality Date - DELIVERY ONLY 1988 , low cervical - COLONOSCOPY 03/25/01 R Cebul - hyperplastic polyp - COLONOSCOPY W/BX 05/17/11 repeat - EGD W/O [facility] SPECIMEN W/BX 05/17/11 - FILTER PLACEMENT (VENA CAVA) 11-03-12 - HEMORRHOIDECT INTER/EXTER SIMP 03/27/01 - KNEE SCOPE,DIAGNOSTIC Left 05/10/2003 Arthroscopy, knee Left - L'SCOPE DX W/WO BRUSHINGS/WASHINGS 1999 Laparoscopy - LAMINECTOMY,LUMBAR 1994 Back surgery - LAMINECTOMY,LUMBAR 11/05/2012 Laminectomy, lumbar - LIGATE FALLOPIAN TUBE 1988 Tubal ligation - OPEN RX ANKLE DISLOCATN+FIXATN 1986 ORIF Ankle - PAST SURGICAL HISTORY OF 2003 Thumb bilateral - PAST SURGICAL HISTORY OF Left 07/2006 partial knee replacement left - PAST SURGICAL HISTORY OF Right 2008 repair knee cap - PAST SURGICAL HISTORY OF 03/26/2014 transurethral resection of bladder lesion. vaginal sling. Dr. Almendarez - REMOVAL OF OVARY/TUBE(S) 1999 Salpingo-oophorectomy bilateral - RETRIEV INTRAVASC FOREGN BODY 01/30/13 filter removal - TOTAL ABDOM HYSTERECTOMY 1999 AANDP REPAIR hyst for benign reason - TOTAL KNEE REPLACEMENT Right 2009 right knee replacement ALLERGIES Chlorhexidine; Cotton; Darvon [Propoxyphene Hcl]; Feathers; Grass Pollen; Morphine; Vinegar; Wool MEDICATIONS amoxicillin-clavulanic acid (AUGMENTIN) 875-125 mg per tablet Take 1 tablet by mouth twice daily for 7 days. COMPOUNDED PRESCRIPTION Sitz bath simvastatin (ZOCOR) 20 mg tablet take 1 tablet by mouth at bedtime gabapentin (NEURONTIN) 800 mg tablet Take 1 tablet by mouth three times daily. warfarin (COUMADIN) 5 mg tablet Take 1 tablet by mouth daily as directed. metFORMIN (GLUCOPHAGE) 500 mg tablet Take 1 tablet by mouth daily with breakfast. For diabetes. fluticasone-salmeterol (ADVAIR DISKUS) 100-50 mcg/dose dsdv Inhale 1 Puff as instructed twice daily. as directed Blood-Glucose Meter monitoring kit Glucose Meter of Choice - Kit - Dx: Type 2 DM - Uncontrolled E11.9 blood sugar diagnostic (BLOOD GLUCOSE TEST) test strip Test blood sugar(s) 2 times daily. Dx: Type 2 DM - Uncontrolled E11.9 Insulin: No Lancets lancets Test blood sugar(s) 2 times daily. Dx: Type 2 DM - Uncontrolled E11.9 Insulin: No Estradiol (YUVAFEM) 10 mcg tab vaginal tablet Use 1 tablet vaginally every Saturday and Saturday. omeprazole (PRILOSEC) 20 mg capsule Take 1 capsule by mouth daily before breakfast. 1/2 hr before meal. Levocetirizine (XYZAL) 5 mg tablet Take 1 tablet by mouth once daily. traMADol (ULTRAM) 50 mg tablet Take 1 tablet by mouth twice daily as needed for Pain. ASCORBIC ACID/BIOFLAVONOIDS (MELANIE C ORAL) Take 1 tablet by mouth once daily. oxybutynin XL (DITROPAN XL) 10 mg 24 hr tablet Take 1 tablet by mouth once daily. albuterol HFA (PROVENTIL HFA) 90 mcg/actuation inhaler Inhale 2 Puffs as instructed every 4 hours as needed for Wheezing/Shortness of Breath. MAY GIVE AVAILABLE EQUIVALENT ALBUTEROL HFA INHALER Calcium-Cholecalciferol, D3, (CALCIUM 500 + D, D3,) 500-125 mg-unit ORAL Tab Take two(2) tablets twice daily. [place]-3 Fatty Acids-Vitamin E (FISH OIL) 1,000 mg ORAL Cap Take 3 pills once daily (?dose) THERAPEUTIC MULTIVITAMIN ORAL TAB Take one(1) tablet daily. FAMILY HISTORY Problem Relation Age of Onset - Blood Disease Mother blood clot, coumadin - Hypertension Mother - Coronary Artery Disease Mother 84 - Cancer Father poss bladder - Prostate Cancer Father - None Sister - None Sister - None Sister - Diabetes Paternal Grandmother - Colon Cancer Paternal Grandmother - Stroke Paternal Grandfather - Diabetes Paternal Grandfather - Cancer Maternal Grandfather LEUKEMIA - Cancer Maternal Uncle - Psychiatry Sister anxiety Social History Substance Use Topics - Smoking status: Former Smoker Quit date: 02/18/1969 - Smokeless tobacco: Never Used - Alcohol use No Comment: rarely, one drink every 3-4 hours PHYSICAL EXAM BP 116/72 (BP Site: Left Arm, BP Position: Sitting, BP Cuff Size: Regular Adult) Pulse 84 Resp 16 Wt 77.1 kg (170 lb) BMI 30.31 kg/m? General Appearance: well appearing, in no acute distress, alert Rectal: left buttock: 1 x 1/2 cm open area, wound bed with yellow slough, no tunneling. No tenderness with palpation. No induration, drainage, fluctuance or erythema. ASSESSMENT/PLAN: 1. Open wound of buttock, left, subsequent encounter - ICD9: V58.89, 877.0, ICD10: S31.829D Healing well, infection resolved Continue with antibiotics until complete. Can also continue with pain relief measures to monitor at home and notify office if worsens or persists Prescription instructions reviewed with patient as applicable. Potential red flag symptoms discussed with the patient. Reviewed appropriate action plan to take if red flag symptoms occur. Patient agreeable to treatment plan. Kimberly Farah APRN.[place] Referring Provider: KIMBERLY FARAH ([facility]) [[id number]] Allergies As of Date: 07/22/2017 Noted Allergy Reaction CHLORHEXIDINE 05/21/2013 9 - Itching COTTON 10/12/2004 14 - Other: See Comments Comments: eyes become red and headache DARVON (PROPOXYPHENE HCL) 04/20/2008 1 - Mental Status Change FEATHERS 10/12/2004 14 - Other: See Comments Comments: eyes become red and headache GRASS POLLEN 10/08/2012 9 - Itching MORPHINE 04/20/2008 1 - Mental Status Change VINEGAR 10/12/2004 14 - Other: See Comments Comments: eyes become red and headache WOOL 10/12/2004 14 - Other: See Comments Comments: eyes become red and headache Date Reviewed: 07/22/2017 Reviewed by: Birgit Hotte JAR CAPPER - Fully Assessed Reason for Visit: Follow Up [171] Primary Visit Diagnosis:Open wound of buttock, left, subsequent encounter [J99.835A] Prescriptions as of 07/22/2017 Sig: AMOXICILLIN 875 MG-POTASSIUM * Take 1 tablet by mouth twice * COMPOUNDED PRESCRIPTION Sitz bath SIMVASTATIN 20 MG TABLET take 1 tablet by mouth at bed* GABAPENTIN 800 MG TABLET Take 1 tablet by mouth three * WARFARIN 5 MG TABLET Take 1 tablet by mouth daily * METFORMIN 500 MG TABLET Take 1 tablet by mouth daily * FLUTICASONE 100 MCG-SALMETERO* Inhale 1 Puff as instructed t* BLOOD-GLUCOSE METER KIT Glucose Meter of Choice - Kit* BLOOD SUGAR DIAGNOSTIC STRIPS Test blood sugar(s) 2 times d* LANCETS Test blood sugar(s) 2 times d* ESTRADIOL 10 MCG VAGINAL TABL* Use 1 tablet vaginally every * OMEPRAZOLE 20 MG CAPSULE,AILYN* Take 1 capsule by mouth daily* LEVOCETIRIZINE 5 MG TABLET Take 1 tablet by mouth once d* TRAMADOL 50 MG TABLET Take 1 tablet by mouth twice * MELANIE C ORAL Take 1 tablet by mouth once d* OXYBUTYNIN CHLORIDE ER 10 MG * Take 1 tablet by mouth once d* ALBUTEROL SULFATE HFA 90 MCG/* Inhale 2 Puffs as instructed * CALCIUM CARBONATE 500 MG (1,2* Take two(2) tablets twice mike* OMEGA-3 FATTY ACIDS-VITAMIN E* Take 3 pills once daily (?dos* THERAPEUTIC MULTIVITAMIN TABL* Take one(1) tablet daily. Problem List As Of Date 07/22/2017 Noted Resolved Unspecified tinnitus [H93.19] 03/11/2012 Allergic rhinitis, cause unspecified [J30.9] GENERAL OSTEOARTHROSIS [M15.9] Carpal tunnel syndrome [G56.00] 03/11/2012 Dizziness and giddiness [R42] 03/11/2012 Contusion of unspecified part of trunk [S20.20X* 03/11/2012 Acute, but ill-defined, cerebrovascular disease* 03/11/2012 Other specified disorder of bladder [596.8] INVALID FOR*03/11/2012 Urge incontinence [N39.41] INVALID FOR*10/28/2014 Dermatophytosis of nail [B35.1] INVALID FOR*03/11/2012 Asthma [J45.909] BONE AND CARTILAGE DIS NOS [M89.9, M94.9] INVALID FOR* Other pulmonary embolism and infarction [I26.99] 03/11/2012 KNEE JOINT REPLACEMENT STATUS [Z96.659] INVALID FOR* Chronic deep vein thrombosis (DVT) of proximal *INVALID FOR* More... Symptomatic menopausal or female climacteric st*INVALID FOR*03/11/2012 Anxiety state, unspecified [F41.1] INVALID FOR*03/11/2012 Urgency of urination [R39.15] INVALID FOR*03/11/2012 Microscopic hematuria [R31.29] INVALID FOR*03/11/2012 Gross hematuria [R31.0] INVALID FOR*03/11/2012 DVT (deep venous thrombosis) [I82.409] INVALID FOR*03/11/2012 Osteoarthritis of basilar joint of thumb, left *INVALID FOR*03/11/2012 More... Degenerative joint disease of right knee [M17.1*INVALID FOR*03/11/2012 More... Lung nodule [R91.1] INVALID FOR*03/11/2012 More... Overlapping toe [M20.5X9] INVALID FOR*03/11/2012 More... Foot drop, left [M21.372] INVALID FOR* Other hammer toe (acquired) [M20.40] INVALID FOR*10/21/2013 Diarrhea [R19.7] INVALID FOR*03/11/2012 Anemia, unspecified [D64.9] INVALID FOR*03/11/2012 Dermatofibroma of right lower leg [D23.71] INVALID FOR*03/11/2012 Scar condition and fibrosis of skin [L90.5] INVALID FOR*03/11/2012 Other seborrheic keratosis [L82.1] INVALID FOR*03/11/2012 Melanocytic nevi of trunk: back [D22.5] INVALID FOR*10/28/2014 Other acne [L70.8] INVALID FOR*03/11/2012 Granuloma of hair follicle [L98.0] INVALID FOR*03/11/2012 Excoriation [T14.8XXA] INVALID FOR*03/11/2012 Actinic skin damage [L57.8] INVALID FOR*10/28/2014 Colitis, collagenous [K52.831] INVALID FOR*03/11/2012 Scoliosis [M41.9] 03/11/2012 More... Degenerative lumbar spinal stenosis [M48.061] INVALID FOR* More... 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 Mixed incontinence [N39.46] INVALID FOR* More... Spondylolisthesis of lumbar region [M43.16] INVALID FOR*11/08/2016 Gastroesophageal reflux disease [K21.9] INVALID FOR* Postlaminectomy syndrome [M96.1] INVALID FOR* Postmenopausal atrophic vaginitis [N95.2] INVALID FOR* Controlled type 2 diabetes mellitus with compli*INVALID FOR* Cognitive impairment [R41.89] INVALID FOR* CKD (chronic kidney disease) stage 3, GFR 30-59*INVALID FOR* Other instructions from your clinician: Finish out antibiotics as prescribed. Continue to monitor wound and call office if wound does not appear to be healing Kimberly Farah APRN.CNP Encounter Status:Closed by KIMBERLY FARAH CNP on 07/22/17 PROGRESS Observed: 07/18/2017 Status: COMPLETED Source: [place] 7:46 AM [facility] REPOSITORY O ID: [id number] Author: Kimberly Farah Service: (none) Author Type: Nurse Practitioner Type: Progress Notes Filed: 07/18/2017 8:16 AM Note Text: CC: Patient presents with: bump on rectum: bleeding x 3 days HPI Annette Combs is a 66 year old female who presents today for hard lump near rectum x 3 days. Had pain when she sat down, noticed the lump. Getting larger. Bloody drainage. No fever, chills. Denies constipation, painful BM's, rectal pain, hemorrhoids, black/bloody stools. 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 Almendarez - Nontraumatic rupture of patellar tendon July 2007; sugical repair 07/29/[address] Devries - Other and unspecified hyperlipidemia 06/20/2012 - Other pulmonary embolism and infarction - PULM EMBOLISM/INFARCT NOS - Scoliosis Xray from [facility] 08/03/11 showed; also has narrowing L3-L4 and L4- L5; DJD L3, L4, L5; slight anterior displacement L4 on L5. - Symptomatic menopausal or female climacteric states - Unspecified asthma(493.90) - Unspecified hemorrhoids without mention of complication Hemorrhoids - Urge incontinence 02/01/2005 - VENOUS THROMBOSIS LOWER EXTREMITY NOS 10/30/2006 Post op left knee arthroscopy; ?PE at that time PAST SURGICAL HISTORY Procedure Laterality Date - DELIVERY ONLY 1988 , low cervical - COLONOSCOPY 03/25/01 R Cebul - hyperplastic polyp - COLONOSCOPY W/BX 05/17/11 repeat - EGD W/O [facility] SPECIMEN W/BX 05/17/11 - FILTER PLACEMENT (VENA CAVA) 11-03-12 - HEMORRHOIDECT INTER/EXTER SIMP 03/27/01 - KNEE SCOPE,DIAGNOSTIC Left 05/10/2003 Arthroscopy, knee Left - L'SCOPE DX W/WO BRUSHINGS/WASHINGS 1999 Laparoscopy - LAMINECTOMY,LUMBAR 1994 Back surgery - LAMINECTOMY,LUMBAR 11/05/2012 Laminectomy, lumbar - LIGATE FALLOPIAN TUBE 1988 Tubal ligation - OPEN RX ANKLE DISLOCATN+FIXATN 1986 ORIF Ankle - PAST SURGICAL HISTORY OF 2004 Thumb bilateral - PAST SURGICAL HISTORY OF Left 07/2006 partial knee replacement left - PAST SURGICAL HISTORY OF Right 2008 repair knee cap - PAST SURGICAL HISTORY OF 03/26/2014 transurethral resection of bladder lesion. vaginal sling. Dr. Almendarez - REMOVAL OF OVARY/TUBE(S) 1999 Salpingo-oophorectomy bilateral - RETRIEV INTRAVASC FOREGN BODY 01/30/13 filter removal - TOTAL ABDOM HYSTERECTOMY 1999 AANDP REPAIR hyst for benign reason - TOTAL KNEE REPLACEMENT Right 2009 right knee replacement ALLERGIES Chlorhexidine; Cotton; Darvon [Propoxyphene Hcl]; Feathers; Grass Pollen; Morphine; Vinegar; Wool MEDICATIONS simvastatin (ZOCOR) 20 mg tablet take 1 tablet by mouth at bedtime gabapentin (NEURONTIN) 800 mg tablet Take 1 tablet by mouth three times daily. warfarin (COUMADIN) 5 mg tablet Take 1 tablet by mouth daily as directed. metFORMIN (GLUCOPHAGE) 500 mg tablet Take 1 tablet by mouth daily with breakfast. For diabetes. fluticasone-salmeterol (ADVAIR DISKUS) 100-50 mcg/dose dsdv Inhale 1 Puff as instructed twice daily. as directed Blood-Glucose Meter monitoring kit Glucose Meter of Choice - Kit - Dx: Type 2 DM - Uncontrolled E11.9 blood sugar diagnostic (BLOOD GLUCOSE TEST) test strip Test blood sugar(s) 2 times daily. Dx: Type 2 DM - Uncontrolled E11.9 Insulin: No Lancets lancets Test blood sugar(s) 2 times daily. Dx: Type 2 DM - Uncontrolled E11.9 Insulin: No Estradiol (YUVAFEM) 10 mcg tab vaginal tablet Use 1 tablet vaginally every Saturday and Saturday. omeprazole (PRILOSEC) 20 mg capsule Take 1 capsule by mouth daily before breakfast. 1/2 hr before meal. Levocetirizine (XYZAL) 5 mg tablet Take 1 tablet by mouth once daily. traMADol (ULTRAM) 50 mg tablet Take 1 tablet by mouth twice daily as needed for Pain. ASCORBIC ACID/BIOFLAVONOIDS (MELANIE C ORAL) Take 1 tablet by mouth once daily. oxybutynin XL (DITROPAN XL) 10 mg 24 hr tablet Take 1 tablet by mouth once daily. albuterol HFA (PROVENTIL HFA) 90 mcg/actuation inhaler Inhale 2 Puffs as instructed every 4 hours as needed for Wheezing/Shortness of Breath. MAY GIVE AVAILABLE EQUIVALENT ALBUTEROL HFA INHALER Calcium-Cholecalciferol, D3, (CALCIUM 500 + D, D3,) 500-125 mg-unit ORAL Tab Take two(2) tablets twice daily. [place]-3 Fatty Acids-Vitamin E (FISH OIL) 1,000 mg ORAL Cap Take 3 pills once daily (?dose) THERAPEUTIC MULTIVITAMIN ORAL TAB Take one(1) tablet daily. FAMILY HISTORY Problem Relation Age of Onset - Blood Disease Mother blood clot, coumadin - Hypertension Mother - Coronary Artery Disease Mother 84 - Cancer Father poss bladder - Prostate Cancer Father - None Sister - None Sister - None Sister - Diabetes Paternal Grandmother - Colon Cancer Paternal Grandmother - Stroke Paternal Grandfather - Diabetes Paternal Grandfather - Cancer Maternal Grandfather LEUKEMIA - Cancer Maternal Uncle - Psychiatry Sister anxiety Social History Substance Use Topics - Smoking status: Former Smoker Quit date: 02/18/1969 - Smokeless tobacco: Never Used - Alcohol use No Comment: rarely, one drink every 3-4 hours PHYSICAL EXAM BP 120/80 Pulse 80 Temp 36.5 ?C (97.7 ?F) (Temporal Artery) Resp 16 Wt 77.1 kg (170 lb) SpO2 97% BMI 30.31 kg/m? General Appearance: well appearing, in no acute distress, alert Rectal: Negative findings: perianal area normal, anus normal, digital rectal exam negative, Positive findings: left buttock: 1x1 cm open area with tunneling. Minor induration surrounding. Tender with palpation. Purulent, bloody drainage. No fluctuance or erythema. ASSESSMENT/PLAN: 1. Open wound of buttock, left, initial encounter - ICD9: 877.0, ICD10: S31.829A Etiology unclear. Differential diagnoses includes pressure ulcer, sinus tract, anorectal fistula, buttock abscess Patient is not bedridden or wheelchair bound. No rectal complaints. No history of Chron's or GI disease. No systemic symptoms. Will treat presumptively as rectal abscess. Start Augmentin Discussed pain relief measures, see patient instructions Follow-up on Saturday or sooner if worsening pain or fever Prescription instructions reviewed with patient as applicable. Potential red flag symptoms discussed with the patient. Reviewed appropriate action plan to take if red flag symptoms occur. Patient agreeable to treatment plan. Kimberly Farah APRN.M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 CNOV Observed: 07/18/2017 Status: COMPLETED Source: [place] 7:40 AM [facility] REPOSITORY Office Visit (INTMWS) ANNETTE COMBS ([id number]) 1950 F Date Time Provider Department 07/18/17 7:40 AM KIMBERLY FARAH ([place]) INTMWS During your visit today, we recorded the following information about you: Temperature Pulse Respiration Blood pressure 97.7 degrees 80/minute 16/minute 120/80 Weight 77.1 kg Kimberly Farah, RADIO FREQUENCY DESIGN ENGINEER.[place] 07/18/2017 8:16 AM Signed CC: Patient presents with: bump on rectum: bleeding x 3 days HPI Annette Combs is a 66 year old female who presents today for hard lump near rectum x 3 days. Had pain when she sat down, noticed the lump. Getting larger. Bloody drainage. No fever, chills. Denies constipation, painful BM's, rectal pain, hemorrhoids, black/bloody stools. 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 Almendarez - Nontraumatic rupture of patellar tendon July 2007; sugical repair 07/29/[address] Devries - Other and unspecified hyperlipidemia 06/20/2012 - Other pulmonary embolism and infarction - PULM EMBOLISM/INFARCT NOS - Scoliosis Xray from [facility] 08/03/11 showed; also has narrowing L3-L4 and L4- L5; DJD L3, L4, L5; slight anterior displacement L4 on L5. - Symptomatic menopausal or female climacteric states - Unspecified asthma(493.90) - Unspecified hemorrhoids without mention of complication Hemorrhoids - Urge incontinence 02/01/2005 - VENOUS THROMBOSIS LOWER EXTREMITY NOS 10/30/2006 Post op left knee arthroscopy; ?PE at that time PAST SURGICAL HISTORY Procedure Laterality Date - DELIVERY ONLY 1988 , low cervical - COLONOSCOPY 03/25/01 R Cebul - hyperplastic polyp - COLONOSCOPY W/BX 05/17/11 repeat - EGD W/O [facility] SPECIMEN W/BX 05/17/11 - FILTER PLACEMENT (VENA CAVA) 11-03-12 - HEMORRHOIDECT INTER/EXTER SIMP 03/27/01 - KNEE SCOPE,DIAGNOSTIC Left 05/10/2003 Arthroscopy, knee Left - L'SCOPE DX W/WO BRUSHINGS/WASHINGS 1999 Laparoscopy - LAMINECTOMY,LUMBAR 1994 Back surgery - LAMINECTOMY,LUMBAR 11/05/2012 Laminectomy, lumbar - LIGATE FALLOPIAN TUBE 1988 Tubal ligation - OPEN RX ANKLE DISLOCATN+FIXATN 1986 ORIF Ankle - PAST SURGICAL HISTORY OF 2003 Thumb bilateral - PAST SURGICAL HISTORY OF Left 07/2006 partial knee replacement left - PAST SURGICAL HISTORY OF Right 2008 repair knee cap - PAST SURGICAL HISTORY OF 03/26/2014 transurethral resection of bladder lesion. vaginal sling. Dr. Almendarez - REMOVAL OF OVARY/TUBE(S) 1999 Salpingo-oophorectomy bilateral - RETRIEV INTRAVASC FOREGN BODY 01/30/13 filter removal - TOTAL ABDOM HYSTERECTOMY 2000 AANDP REPAIR hyst for benign reason - TOTAL KNEE REPLACEMENT Right 2009 right knee replacement ALLERGIES Chlorhexidine; Cotton; Darvon [Propoxyphene Hcl]; Feathers; Grass Pollen; Morphine; Vinegar; Wool MEDICATIONS simvastatin (ZOCOR) 20 mg tablet take 1 tablet by mouth at bedtime gabapentin (NEURONTIN) 800 mg tablet Take 1 tablet by mouth three times daily. warfarin (COUMADIN) 5 mg tablet Take 1 tablet by mouth daily as directed. metFORMIN (GLUCOPHAGE) 500 mg tablet Take 1 tablet by mouth daily with breakfast. For diabetes. fluticasone-salmeterol (ADVAIR DISKUS) 100-50 mcg/dose dsdv Inhale 1 Puff as instructed twice daily. as directed Blood-Glucose Meter monitoring kit Glucose Meter of Choice - Kit - Dx: Type 2 DM - Uncontrolled E11.9 blood sugar diagnostic (BLOOD GLUCOSE TEST) test strip Test blood sugar(s) 2 times daily. Dx: Type 2 DM - Uncontrolled E11.9 Insulin: No Lancets lancets Test blood sugar(s) 2 times daily. Dx: Type 2 DM - Uncontrolled E11.9 Insulin: No Estradiol (YUVAFEM) 10 mcg tab vaginal tablet Use 1 tablet vaginally every Saturday and Saturday. omeprazole (PRILOSEC) 20 mg capsule Take 1 capsule by mouth daily before breakfast. 1/2 hr before meal. Levocetirizine (XYZAL) 5 mg tablet Take 1 tablet by mouth once daily. traMADol (ULTRAM) 50 mg tablet Take 1 tablet by mouth twice daily as needed for Pain. ASCORBIC ACID/BIOFLAVONOIDS (MELANIE C ORAL) Take 1 tablet by mouth once daily. oxybutynin XL (DITROPAN XL) 10 mg 24 hr tablet Take 1 tablet by mouth once daily. albuterol HFA (PROVENTIL HFA) 90 mcg/actuation inhaler Inhale 2 Puffs as instructed every 4 hours as needed for Wheezing/Shortness of Breath. MAY GIVE AVAILABLE EQUIVALENT ALBUTEROL HFA INHALER Calcium-Cholecalciferol, D3, (CALCIUM 500 + D, D3,) 500-125 mg-unit ORAL Tab Take two(2) tablets twice daily. [place]-3 Fatty Acids-Vitamin E (FISH OIL) 1,000 mg ORAL Cap Take 3 pills once daily (?dose) THERAPEUTIC MULTIVITAMIN ORAL TAB Take one(1) tablet daily. FAMILY HISTORY Problem Relation Age of Onset - Blood Disease Mother blood clot, coumadin - Hypertension Mother - Coronary Artery Disease Mother 84 - Cancer Father poss bladder - Prostate Cancer Father - None Sister - None Sister - None Sister - Diabetes Paternal Grandmother - Colon Cancer Paternal Grandmother - Stroke Paternal Grandfather - Diabetes Paternal Grandfather - Cancer Maternal Grandfather LEUKEMIA - Cancer Maternal Uncle - Psychiatry Sister anxiety Social History Substance Use Topics - Smoking status: Former Smoker Quit date: 02/18/1969 - Smokeless tobacco: Never Used - Alcohol use No Comment: rarely, one drink every 3-4 hours PHYSICAL EXAM BP 120/80 Pulse 80 Temp 36.5 ?C (97.7 ?F) (Temporal Artery) Resp 16 Wt 77.1 kg (170 lb) SpO2 97% BMI 30.31 kg/m? General Appearance: well appearing, in no acute distress, alert Rectal: Negative findings: perianal area normal, anus normal, digital rectal exam negative, Positive findings: left buttock: 1x1 cm open area with tunneling. Minor induration surrounding. Tender with palpation. Purulent, bloody drainage. No fluctuance or erythema. ASSESSMENT/PLAN: 1. Open wound of buttock, left, initial encounter - ICD9: 877.0, ICD10: S31.829A Etiology unclear. Differential diagnoses includes pressure ulcer, sinus tract, anorectal fistula, buttock abscess Patient is not bedridden or wheelchair bound. No rectal complaints. No history of Chron's or GI disease. No systemic symptoms. Will treat presumptively as rectal abscess. Start Augmentin Discussed pain relief measures, see patient instructions Follow-up on Saturday or sooner if worsening pain or fever Prescription instructions reviewed with patient as applicable. Potential red flag symptoms discussed with the patient. Reviewed appropriate action plan to take if red flag symptoms occur. Patient agreeable to treatment plan. RUBIO Sands APRN.CNP 07/18/2017 8:02 AM Signed Warm compress to hard area on buttock as needed for discomfort. Tylenol as needed for pain Follow-up on Saturday. Sooner if you develop worsening pain or fever Referring Provider: SELF [[id number]] Allergies As of Date: 07/18/2017 Noted Allergy Reaction CHLORHEXIDINE 05/21/2013 9 - Itching COTTON 10/12/2004 14 - Other: See Comments Comments: eyes become red and headache DARVON (PROPOXYPHENE HCL) 04/20/2008 1 - Mental Status Change FEATHERS 10/12/2004 14 - Other: See Comments Comments: eyes become red and headache GRASS POLLEN 10/08/2012 9 - Itching MORPHINE 04/20/2008 1 - Mental Status Change VINEGAR 10/12/2004 14 - Other: See Comments Comments: eyes become red and headache WOOL 10/12/2004 14 - Other: See Comments Comments: eyes become red and headache Date Reviewed: 07/18/2017 Reviewed by: Roseann Rice Elevator Service Technician - Fully Assessed Reason for Visit: bump on rectum [Other] Cmt: bleeding x 3 days Primary Visit Diagnosis:Open wound of buttock, left, initial encounter [S31.829A] Order(s):amoxicillin-clavulanic acid (AUGMENTIN) 875-125 mg per tabletTake 1 tablet by mouth twice daily for 7 days.Disp: 14 tabletRfl: 0 COMPOUNDED PRESCRIPTIONSitz bathDisp: 1 EachRfl: 0 Prescriptions as of 07/18/2017 Sig: SIMVASTATIN 20 MG TABLET take 1 tablet by mouth at bed* GABAPENTIN 800 MG TABLET Take 1 tablet by mouth three * WARFARIN 5 MG TABLET Take 1 tablet by mouth daily * METFORMIN 500 MG TABLET Take 1 tablet by mouth daily * FLUTICASONE 100 MCG-SALMETERO* Inhale 1 Puff as instructed t* BLOOD-GLUCOSE METER KIT Glucose Meter of Choice - Kit* BLOOD SUGAR DIAGNOSTIC STRIPS Test blood sugar(s) 2 times d* LANCETS Test blood sugar(s) 2 times d* ESTRADIOL 10 MCG VAGINAL TABL* Use 1 tablet vaginally every * OMEPRAZOLE 20 MG CAPSULE,AILYN* Take 1 capsule by mouth daily* LEVOCETIRIZINE 5 MG TABLET Take 1 tablet by mouth once d* TRAMADOL 50 MG TABLET Take 1 tablet by mouth twice * MELANIE C ORAL Take 1 tablet by mouth once d* OXYBUTYNIN CHLORIDE ER 10 MG * Take 1 tablet by mouth once d* ALBUTEROL SULFATE HFA 90 MCG/* Inhale 2 Puffs as instructed * CALCIUM CARBONATE 500 MG (1,2* Take two(2) tablets twice mike* OMEGA-3 FATTY ACIDS-VITAMIN E* Take 3 pills once daily (?dos* THERAPEUTIC MULTIVITAMIN TABL* Take one(1) tablet daily. AMOXICILLIN 875 MG-POTASSIUM * Take 1 tablet by mouth twice * COMPOUNDED PRESCRIPTION Sitz bath Problem List As Of Date 07/18/2017 Noted Resolved Unspecified tinnitus [H93.19] 03/11/2012 Allergic rhinitis, cause unspecified [J30.9] GENERAL OSTEOARTHROSIS [M15.9] Carpal tunnel syndrome [G56.00] 03/11/2012 Dizziness and giddiness [R42] 03/11/2012 Contusion of unspecified part of trunk [S20.20X* 03/11/2012 Acute, but ill-defined, cerebrovascular disease* 03/11/2012 Other specified disorder of bladder [596.8] INVALID FOR*03/11/2012 Urge incontinence [N39.41] INVALID FOR*10/28/2014 Dermatophytosis of nail [B35.1] INVALID FOR*03/11/2012 Asthma [J45.909] BONE AND CARTILAGE DIS NOS [M89.9, M94.9] INVALID FOR* Other pulmonary embolism and infarction [I26.99] 03/11/2012 KNEE JOINT REPLACEMENT STATUS [Z96.659] INVALID FOR* Chronic deep vein thrombosis (DVT) of proximal *INVALID FOR* More... Symptomatic menopausal or female climacteric st*INVALID FOR*03/11/2012 Anxiety state, unspecified [F41.1] INVALID FOR*03/11/2012 Urgency of urination [R39.15] INVALID FOR*03/11/2012 Microscopic hematuria [R31.29] INVALID FOR*03/11/2012 Gross hematuria [R31.0] INVALID FOR*03/11/2012 DVT (deep venous thrombosis) [I82.409] INVALID FOR*03/11/2012 Osteoarthritis of basilar joint of thumb, left *INVALID FOR*03/11/2012 More... Degenerative joint disease of right knee [M17.1*INVALID FOR*03/11/2012 More... Lung nodule [R91.1] INVALID FOR*03/11/2012 More... Overlapping toe [M20.5X9] INVALID FOR*03/11/2012 More... Foot drop, left [M21.372] INVALID FOR* Other hammer toe (acquired) [M20.40] INVALID FOR*10/21/2013 Diarrhea [R19.7] INVALID FOR*03/11/2012 Anemia, unspecified [D64.9] INVALID FOR*03/11/2012 Dermatofibroma of right lower leg [D23.71] INVALID FOR*03/11/2012 Scar condition and fibrosis of skin [L90.5] INVALID FOR*03/11/2012 Other seborrheic keratosis [L82.1] INVALID FOR*03/11/2012 Melanocytic nevi of trunk: back [D22.5] INVALID FOR*10/28/2014 Other acne [L70.8] INVALID FOR*03/11/2012 Granuloma of hair follicle [L98.0] INVALID FOR*03/11/2012 Excoriation [T14.8XXA] INVALID FOR*03/11/2012 Actinic skin damage [L57.8] INVALID FOR*10/28/2014 Colitis, collagenous [K52.831] INVALID FOR*03/11/2012 Scoliosis [M41.9] 03/11/2012 More... Degenerative lumbar spinal stenosis [M48.061] INVALID FOR* More... 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 Mixed incontinence [N39.46] INVALID FOR* More... Spondylolisthesis of lumbar region [M43.16] INVALID FOR*11/08/2016 Gastroesophageal reflux disease [K21.9] INVALID FOR* Postlaminectomy syndrome [M96.1] INVALID FOR* Postmenopausal atrophic vaginitis [N95.2] INVALID FOR* Controlled type 2 diabetes mellitus with compli*INVALID FOR* Cognitive impairment [R41.89] INVALID FOR* CKD (chronic kidney disease) stage 3, GFR 30-59*INVALID FOR* Other instructions from your clinician: Warm compress to hard area on buttock as needed for discomfort. Tylenol as needed for pain Follow-up on Saturday. Sooner if you develop worsening pain or fever Prescriptions ordered this encounter Disp Refills Start End AMOXICILLIN 875 MG-POTASSIUM CLAVULA* 14 t* 0 07/18/2017 07/25/2017 Route: ORAL Sig: Take 1 tablet by mouth twice daily for 7 days. COMPOUNDED PRESCRIPTION 1 Ea* 0 07/18/2017 Class: Print RX Sig: Sitz bath Encounter Status:Closed by KIMBERLY FARAH CNP on 07/18/17 US KIDNEY/BLADDER Observed: 07/16/2017 Status: F Source: [place] 9:59 AM [facility] REPOSITORY * * *Final Report* * * DATE OF EXAM: Jul 16 2017 9:59AM [id number] - US KIDNEY/BLADDER / PROCEDURE REASON: Chronic kidney disease, stage 3 (moderate) * * * * Physician Interpretation * * * * EXAMINATION: RENAL ULTRASOUND CLINICAL HISTORY: Chronic kidney disease TECHNIQUE: Sonography of the kidneys and urinary bladder was performed. Images were obtained and stored in a permanent archive. MQ: [id number] COMPARISON: None RESULT: Right Kidney: -Renal length: 10.5 cm -Parenchyma: Generally slightly increased echogenicity generally slightly thinned renal cortices. Focal more marked thinning anteriorly near the upper pole is probably due to remote scarring. -Collecting system: No hydronephrosis. -Calculus: No echogenic, shadowing calculus. -Lesion: None. Left Kidney: -Renal length: 10.7 cm -Parenchyma: Echogenic renal cortices generally thinned renal cortex. -Collecting system: No hydronephrosis. -Calculus: Possible tiny echogenic left collecting system calculus. -Lesion: 12 mm benign-appearing simple cyst. Bladder: Prevoiding bladder volume is 423 mL. Post voiding volume is 129 mL. No obvious bladder lesion is noted. IMPRESSION: Thinned echogenic renal cortices appear consistent with medical renal disease. Possible tiny left collecting system calculus. Incidental note is made of 2.6 cm gallstone. Instructor Watch Assembly: [employer] Transcribe Date/Time: Jul 16 2017 10:10A Dictated by : MART CHAN MD This examination was interpreted and the report reviewed and electronically signed by: MART CHAN MD on Jul 16 2017 10:14AM EST [id number] Observed: 07/16/2017 Status: COMPLETED Source: [place] 9:18 AM [facility] REPOSITORY HNO ID: [id number] Author: Judi Valero Rdms Service: (none) Author Type: (none) Type: Progress Notes Filed: 07/16/2017 9:18 AM Note Text: Radiology Service Progress Note PATIENT NAME: Annette Combs DATE OF SERVICE: July 16, 2017 TIME: 9:18 AM PATIENT IDENTITY VERIFICATION COMPLETED USING TWO (2) METHODS: Patient confirmed name verbally and Date of . PATIENT GENDER DATA: Female. status: : No status: NO. PATIENT RELEVANT IMPLANT DATA REVIEWED: Not Applicable RADIOLOGY DEPARTMENT: Ultrasound PERIPHERAL IV DATA: Not applicable SIGNED BY: Judi Valero Rdms July 16, 2017 9:18 AM URINALYSIS WITH Collected: 07/12/2017 Status: F Source: [facility] 9:36 AM [facility] REPOSITORY TYPE CODE TESTS RESULT OUT OF RANGE REFERENCE UNITS LAB UCOL Yellow Color Yellow LAB [facility] Clear Clarity Abnormal Cloudy Alert LAB UGLUC Negative mg/dL Glucose, Urine Negative LAB UBIL Negative Bilirubin, Urine Negative LAB UKET Negative Ketones, Urine Negative LAB USPG 1.005-1.030 Specific Eldred, Ur 1.011 LAB UHGB Negative Abnormal Hemoglobin/Blood, 2+ Alert Ur LAB UPH 4.5-8.0 pH 5.0 LAB UPROT Negative mg/dL Protein, Abnormal Urine 30 Alert LAB UUROB Normal Urobilinogen Normal LAB UNITR Negative Nitrites Negative LAB ULKEST Negative Leukest Abnormal 3+ Alert LAB UCOM Comments SEE COMMENT Result Comment: N/A LAB UMCOM Urine SEE Joseph Comment COMMENT Result Comment: N/A LAB UWBC 0-5 /HPF Abnormal WBC Alert >25 LAB URBC 0-3 /HPF Abnormal RBC Alert 3-5 LAB UEPI /HPF Epithelial Cells SEE COMMENT Result Comment: Few Squamous Epithelial Cells Performed By: #### UAWMIC #### [facility] [address] [place], [place] [address] ALBUMIN/CREAT RATIO Collected: 07/12/2017 Status: F Source: IDANHA 9:35 AM [facility] REPOSITORY TYPE CODE TESTS RESULT OUT OF REFERENCE UNITS RANGE LAB UCRR 20-300 mg/dL Creatinine,Ur 52.2 ine,Ran LAB UALBR 0.0-23.0 mg/L High Albumin Urine 69.4 Random LAB UALBCR 0-30 mg/g High Albumin/Creat 133 Ratio Result Comment: 30 to 300 mg/g indicates an increased risk for diabetic nephropathy. Greater than 300 mg/g is consistent with clinical nephropathy. (Am J Kidney Disease 1995, 25:107) Performed By: #### UACR #### [facility] [address], [place] [address] PROGRESS Observed: 07/12/2017 Status: COMPLETED Source: IDANHA 8:15 AM [facility] REPOSITORY HNO ID: [id number] Author: Bernardo Alfaro Service: (none) Author Type: Physician Type: Progress Notes Filed: 07/13/2017 4:49 PM Note Text: This note was created using NoteWriter. Subjective Annette Combs is a 66 year old female was here for follow up. She was recently diagnosed with diabetes mellitus. She was taking metformin with no side effects. She was on chronic anticoagulation for chronic deep vein thrombosis. Her asthma was stable. She stated having her eye exam at [facility], but results were not available. She was going to [facility] for vp cardiovascular. She follows with Dr. Almendarez periodically for urine incontinence and chronic cystitis. Review of Systems Constitutional: Negative. Respiratory: Negative. Cardiovascular: Negative. Gastrointestinal: Negative. ACTIVE PROBLEM LIST Allergic Rhinitis, Cause Unspecified Generalized Osteoarthrosis, Unspecified Site Asthma Disorder of Bone and Cartilage, Unspecified Knee Joint Replacement By Other Means Chronic Deep Vein Thrombosis (Dvt) of Proximal Vein of Both Lower Extremities (Hcc) Foot Drop, Left Degenerative Lumbar Spinal Stenosis Hyperlipidemia Chronic Cystitis Mixed Incontinence Gastroesophageal Reflux Disease Postlaminectomy Syndrome Postmenopausal Atrophic Vaginitis Diabetes Mellitus, New Onset (Hcc) Cognitive Impairment Current Outpatient Prescriptions: gabapentin (NEURONTIN) 800 mg tablet Take 1 tablet by mouth three times daily. warfarin (COUMADIN) 5 mg tablet Take 1 tablet by mouth daily as directed. metFORMIN (GLUCOPHAGE) 500 mg tablet Take 1 tablet by mouth daily with breakfast. For diabetes. fluticasone-salmeterol (ADVAIR DISKUS) 100-50 mcg/dose dsdv Inhale 1 Puff as instructed twice daily. as directed Blood-Glucose Meter monitoring kit Glucose Meter of Choice - Kit - Dx: Type 2 DM - Uncontrolled E11.9 blood sugar diagnostic (BLOOD GLUCOSE TEST) test strip Test blood sugar(s) 2 times daily. Dx: Type 2 DM - Uncontrolled E11.9 Insulin: No Lancets lancets Test blood sugar(s) 2 times daily. Dx: Type 2 DM - Uncontrolled E11.9 Insulin: No Estradiol (YUVAFEM) 10 mcg tab vaginal tablet Use 1 tablet vaginally every Saturday and Saturday. omeprazole (PRILOSEC) 20 mg capsule Take 1 capsule by mouth daily before breakfast. 1/2 hr before meal. Levocetirizine (XYZAL) 5 mg tablet Take 1 tablet by mouth once daily. simvastatin (ZOCOR) 20 mg tablet Take 1 tablet by mouth daily at bedtime. traMADol (ULTRAM) 50 mg tablet Take 1 tablet by mouth twice daily as needed for Pain. ASCORBIC ACID/BIOFLAVONOIDS (MELANIE C ORAL) Take 1 tablet by mouth once daily. oxybutynin XL (DITROPAN XL) 10 mg 24 hr tablet Take 1 tablet by mouth once daily. albuterol HFA (PROVENTIL HFA) 90 mcg/actuation inhaler Inhale 2 Puffs as instructed every 4 hours as needed for Wheezing/Shortness of Breath. MAY GIVE AVAILABLE EQUIVALENT ALBUTEROL HFA INHALER Calcium-Cholecalciferol, D3, (CALCIUM 500 + D, D3,) 500-125 mg-unit ORAL Tab Take two(2) tablets twice daily. [place]-3 Fatty Acids-Vitamin E (FISH OIL) 1,000 mg ORAL Cap Take 3 pills once daily (?dose) THERAPEUTIC MULTIVITAMIN ORAL TAB Take one(1) tablet daily. No current facility-administered medications for this visit. Objective BP 126/84 (BP Site: Left Arm, BP Position: Sitting, BP Cuff Size: Regular Adult) Pulse 91 Resp 16 Wt 78 kg (172 lb) SpO2 99% BMI 30.67 kg/m? Physical Exam Constitutional: No distress. Eyes: Conjunctivae are normal. Cardiovascular: Normal heart sounds. Exam reveals no gallop. No murmur heard. Pulmonary/Chest: Breath sounds normal. Musculoskeletal: She exhibits no edema. Left AFO in place. CMP: Glucose 119 05/09/2017 BUN 27 05/09/2017 Creatinine 1.26 05/09/2017 Sodium 141 05/09/2017 Potassium 4.8 05/09/2017 Chloride 101 05/09/2017 CO2 25 05/09/2017 Assessment and Plan 1. Controlled type 2 diabetes mellitus with complication, without long-term current use of insulin (HCC) - ICD9: 250.90, ICD10: E11.8 (primary diagnosis) Controlled. - Continue current medications - ALBUMIN/CREAT RATIO RND UR - BASIC METABOLIC PNL - HGB A1C 2. Chronic deep vein thrombosis (DVT) of proximal vein of both lower extremities (HCC) - ICD9: 453.51, ICD10: I82.5Y3 Anticoagulated. 3. Uncomplicated asthma, unspecified asthma severity, unspecified whether persistent - ICD9: 493.90, ICD10: J45.909 Controlled. - Continue current meds 4. CKD (chronic kidney disease) stage 3, GFR 30-59 ml/min - ICD9: 585.3, ICD10: N18.3 New diagnosis. Reviewed renal function declining since 2014. Risk factors reviewed. Hydration stressed and DM control. Stage 3 was discussed. - US KIDNEY/BLADDER - URINALYSIS WITH MICROSCOPIC Bernardo Alfaro MD CNOV Observed: 07/12/2017 Status: COMPLETED Source: IDANHA 8:00 AM [facility] REPOSITORY Office Visit (INTMWS) ANNETTE COMBS ([id number]) 1950 F Date Time Provider Department 07/12/17 8:00 AM BERNARDO ALFARO INTMWS During your visit today, we recorded the following information about you: Pulse Respiration Blood pressure Weight 91/minute 16/minute 126/84 78 kg Bernardo Alfaro MD 07/13/2017 4:49 PM Signed This note was created using EasyPaint. Subjective Annette Combs is a 66 year old female was here for follow up. She was recently diagnosed with diabetes mellitus. She was taking metformin with no side effects. She was on chronic anticoagulation for chronic deep vein thrombosis. Her asthma was stable. She stated having her eye exam at [facility], but results were not available. She was going to [facility] for vp cardiovascular. She follows with Dr. Almendarez periodically for urine incontinence and chronic cystitis. Review of Systems Constitutional: Negative. Respiratory: Negative. Cardiovascular: Negative. Gastrointestinal: Negative. ACTIVE PROBLEM LIST Allergic Rhinitis, Cause Unspecified Generalized Osteoarthrosis, Unspecified Site Asthma Disorder of Bone and Cartilage, Unspecified Knee Joint Replacement By Other Means Chronic Deep Vein Thrombosis (Dvt) of Proximal Vein of Both Lower Extremities (Hcc) Foot Drop, Left Degenerative Lumbar Spinal Stenosis Hyperlipidemia Chronic Cystitis Mixed Incontinence Gastroesophageal Reflux Disease Postlaminectomy Syndrome Postmenopausal Atrophic Vaginitis Diabetes Mellitus, New Onset (Hcc) Cognitive Impairment Current Outpatient Prescriptions: gabapentin (NEURONTIN) 800 mg tablet Take 1 tablet by mouth three times daily. warfarin (COUMADIN) 5 mg tablet Take 1 tablet by mouth daily as directed. metFORMIN (GLUCOPHAGE) 500 mg tablet Take 1 tablet by mouth daily with breakfast. For diabetes. fluticasone-salmeterol (ADVAIR DISKUS) 100-50 mcg/dose dsdv Inhale 1 Puff as instructed twice daily. as directed Blood-Glucose Meter monitoring kit Glucose Meter of Choice - Kit - Dx: Type 2 DM - Uncontrolled E11.9 blood sugar diagnostic (BLOOD GLUCOSE TEST) test strip Test blood sugar(s) 2 times daily. Dx: Type 2 DM - Uncontrolled E11.9 Insulin: No Lancets lancets Test blood sugar(s) 2 times daily. Dx: Type 2 DM - Uncontrolled E11.9 Insulin: No Estradiol (YUVAFEM) 10 mcg tab vaginal tablet Use 1 tablet vaginally every Saturday and Saturday. omeprazole (PRILOSEC) 20 mg capsule Take 1 capsule by mouth daily before breakfast. 1/2 hr before meal. Levocetirizine (XYZAL) 5 mg tablet Take 1 tablet by mouth once daily. simvastatin (ZOCOR) 20 mg tablet Take 1 tablet by mouth daily at bedtime. traMADol (ULTRAM) 50 mg tablet Take 1 tablet by mouth twice daily as needed for Pain. ASCORBIC ACID/BIOFLAVONOIDS (MELANIE C ORAL) Take 1 tablet by mouth once daily. oxybutynin XL (DITROPAN XL) 10 mg 24 hr tablet Take 1 tablet by mouth once daily. albuterol HFA (PROVENTIL HFA) 90 mcg/actuation inhaler Inhale 2 Puffs as instructed every 4 hours as needed for Wheezing/Shortness of Breath. MAY GIVE AVAILABLE EQUIVALENT ALBUTEROL HFA INHALER Calcium-Cholecalciferol, D3, (CALCIUM 500 + D, D3,) 500-125 mg-unit ORAL Tab Take two(2) tablets twice daily. [place]-3 Fatty Acids-Vitamin E (FISH OIL) 1,000 mg ORAL Cap Take 3 pills once daily (?dose) THERAPEUTIC MULTIVITAMIN ORAL TAB Take one(1) tablet daily. No current facility-administered medications for this visit. Objective BP 126/84 (BP Site: Left Arm, BP Position: Sitting, BP Cuff Size: Regular Adult) Pulse 91 Resp 16 Wt 78 kg (172 lb) SpO2 99% BMI 30.67 kg/m? Physical Exam Constitutional: No distress. Eyes: Conjunctivae are normal. Cardiovascular: Normal heart sounds. Exam reveals no gallop. No murmur heard. Pulmonary/Chest: Breath sounds normal. Musculoskeletal: She exhibits no edema. Left AFO in place. CMP: Glucose 119 05/09/2017 BUN 27 05/09/2017 Creatinine 1.26 05/09/2017 Sodium 141 05/09/2017 Potassium 4.8 05/09/2017 Chloride 101 05/09/2017 CO2 25 05/09/2017 Assessment and Plan 1. Controlled type 2 diabetes mellitus with complication, without long-term current use of insulin (HCC) - ICD9: 250.90, ICD10: E11.8 (primary diagnosis) Controlled. - Continue current medications - ALBUMIN/CREAT RATIO RND UR - BASIC METABOLIC PNL - HGB A1C 2. Chronic deep vein thrombosis (DVT) of proximal vein of both lower extremities (HCC) - ICD9: 453.51, ICD10: I82.5Y3 Anticoagulated. 3. Uncomplicated asthma, unspecified asthma severity, unspecified whether persistent - ICD9: 493.90, ICD10: J45.909 Controlled. - Continue current meds 4. CKD (chronic kidney disease) stage 3, GFR 30-59 ml/min - ICD9: 585.3, ICD10: N18.3 New diagnosis. Reviewed renal function declining since 2014. Risk factors reviewed. Hydration stressed and DM control. Stage 3 was discussed. - US KIDNEY/BLADDER - URINALYSIS WITH MICROSCOPIC TroySuki Alfaro MD Referring Provider: SELF [[id number]] Allergies As of Date: 07/12/2017 Noted Allergy Reaction CHLORHEXIDINE 05/21/2013 9 - Itching COTTON 10/12/2004 14 - Other: See Comments Comments: eyes become red and headache DARVON (PROPOXYPHENE HCL) 04/20/2008 1 - Mental Status Change FEATHERS 10/12/2004 14 - Other: See Comments Comments: eyes become red and headache GRASS POLLEN 10/08/2012 9 - Itching MORPHINE 04/20/2008 1 - Mental Status Change VINEGAR 10/12/2004 14 - Other: See Comments Comments: eyes become red and headache WOOL 10/12/2004 14 - Other: See Comments Comments: eyes become red and headache Date Reviewed: 07/12/2017 Reviewed by: Jolene Polanco Ma - Fully Assessed Reason for Visit: F/U 3 Month [443] Primary Visit Diagnosis:Controlled type 2 diabetes mellitus with complication, without long-term current use of insulin ([facility]) [E11.8] Other Visit Diagnoses:Chronic deep vein thrombosis (DVT) of proximal vein of both lower extremities ([facility]) [I82.5Y3] Uncomplicated asthma, unspecified asthma severity, unspecified whether persistent [J45.909] CKD (chronic kidney disease) stage 3, GFR 30-59 ml/min [N18.3] Order(s): KIDNEY/BLADDER [[id number]] Order #: [id number] FUTURE URINALYSIS WITH MICROSCOPIC [SQUAWMIC] Order #: [id number]. #:[id number] ALBUMIN/CREAT RATIO RND UR [SQUACR] Order #: [id number] FUTURE BASIC METABOLIC PNL [SQBMP] Order #: [id number] FUTURE HGB A1C [KJKUM5R] Order #: [id number] FUTURE Prescriptions as of 07/12/2017 Sig: GABAPENTIN 800 MG TABLET Take 1 tablet by mouth three * WARFARIN 5 MG TABLET Take 1 tablet by mouth daily * METFORMIN 500 MG TABLET Take 1 tablet by mouth daily * FLUTICASONE 100 MCG-SALMETERO* Inhale 1 Puff as instructed t* BLOOD-GLUCOSE METER KIT Glucose Meter of Choice - Kit* BLOOD SUGAR DIAGNOSTIC STRIPS Test blood sugar(s) 2 times d* LANCETS Test blood sugar(s) 2 times d* ESTRADIOL 10 MCG VAGINAL TABL* Use 1 tablet vaginally every * OMEPRAZOLE 20 MG CAPSULE,AILYN* Take 1 capsule by mouth daily* LEVOCETIRIZINE 5 MG TABLET Take 1 tablet by mouth once d* SIMVASTATIN 20 MG TABLET Take 1 tablet by mouth daily * TRAMADOL 50 MG TABLET Take 1 tablet by mouth twice * MELANIE C ORAL Take 1 tablet by mouth once d* OXYBUTYNIN CHLORIDE ER 10 MG * Take 1 tablet by mouth once d* ALBUTEROL SULFATE HFA 90 MCG/* Inhale 2 Puffs as instructed * CALCIUM CARBONATE 500 MG (1,2* Take two(2) tablets twice mike* [place]ME[place]-3 FATTY ACIDS-VITAMIN E* Take 3 pills once daily (?dos* THERAPEUTIC MULTIVITAMIN TABL* Take one(1) tablet daily. Medication notes this encounter GABAPENTIN 800 MG TABLET >> Jolene Polanco Ma 07/12/2017 8:07 AM >> JOLENE POLANCO MA SatJuly 12, 2017 8:07 AM Prescribed by Pain Management Problem List As Of Date 07/12/2017 Noted Resolved Unspecified tinnitus [H93.19] 03/11/2012 Allergic rhinitis, cause unspecified [J30.9] GENERAL OSTEOARTHROSIS [M15.9] Carpal tunnel syndrome [G56.00] 03/11/2012 Dizziness and giddiness [R42] 03/11/2012 Contusion of unspecified part of trunk [S20.20X* 03/11/2012 Acute, but ill-defined, cerebrovascular disease* 03/11/2012 Other specified disorder of bladder [596.8] INVALID FOR*03/11/2012 Urge incontinence [N39.41] INVALID FOR*10/28/2014 Dermatophytosis of nail [B35.1] INVALID FOR*03/11/2012 Asthma [J45.909] BONE AND CARTILAGE DIS NOS [M89.9, M94.9] INVALID FOR* Other pulmonary embolism and infarction [I26.99] 03/11/2012 KNEE JOINT REPLACEMENT STATUS [Z96.659] INVALID FOR* Chronic deep vein thrombosis (DVT) of proximal *INVALID FOR* More... Symptomatic menopausal or female climacteric st*INVALID FOR*03/11/2012 Anxiety state, unspecified [F41.1] INVALID FOR*03/11/2012 Urgency of urination [R39.15] INVALID FOR*03/11/2012 Microscopic hematuria [R31.29] INVALID FOR*03/11/2012 Gross hematuria [R31.0] INVALID FOR*03/11/2012 DVT (deep venous thrombosis) [I82.409] INVALID FOR*03/11/2012 Osteoarthritis of basilar joint of thumb, left *INVALID FOR*03/11/2012 More... Degenerative joint disease of right knee [M17.1*INVALID FOR*03/11/2012 More... Lung nodule [R91.1] INVALID FOR*03/11/2012 More... Overlapping toe [M20.5X9] INVALID FOR*03/11/2012 More... Foot drop, left [M21.372] INVALID FOR* Other hammer toe (acquired) [M20.40] INVALID FOR*10/21/2013 Diarrhea [R19.7] INVALID FOR*03/11/2012 Anemia, unspecified [D64.9] INVALID FOR*03/11/2012 Dermatofibroma of right lower leg [D23.71] INVALID FOR*03/11/2012 Scar condition and fibrosis of skin [L90.5] INVALID FOR*03/11/2012 Other seborrheic keratosis [L82.1] INVALID FOR*03/11/2012 Melanocytic nevi of trunk: back [D22.5] INVALID FOR*10/28/2014 Other acne [L70.8] INVALID FOR*03/11/2012 Granuloma of hair follicle [L98.0] INVALID FOR*03/11/2012 Excoriation [T14.8XXA] INVALID FOR*03/11/2012 Actinic skin damage [L57.8] INVALID FOR*10/28/2014 Colitis, collagenous [K52.831] INVALID FOR*03/11/2012 Scoliosis [M41.9] 03/11/2012 More... Degenerative lumbar spinal stenosis [M48.061] INVALID FOR* More... 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 Mixed incontinence [N39.46] INVALID FOR* More... Spondylolisthesis of lumbar region [M43.16] INVALID FOR*11/08/2016 Gastroesophageal reflux disease [K21.9] INVALID FOR* Postlaminectomy syndrome [M96.1] INVALID FOR* Postmenopausal atrophic vaginitis [N95.2] INVALID FOR* Controlled type 2 diabetes mellitus with compli*INVALID FOR* Cognitive impairment [R41.89] INVALID FOR* CKD (chronic kidney disease) stage 3, GFR 30-59*INVALID FOR* Disposition: Return in about 5 months (around 12/12/2017). Follow-up and Disposition History Recorded Encounter Status:Closed by BERNARDO ALFARO MD on 07/13/17 PROGRESS Observed: 07/04/2017 Status: COMPLETED Source: IDANHA 12:51 PM [facility] REPOSITORY HNO ID: [id number] Author: Bernardo Alfaro Service: (none) Author Type: Physician Type: Progress Notes Filed: 07/04/2017 12:51 PM Note Text: Okay. PROGRESS Observed: 07/04/2017 Status: COMPLETED Source: IDANHA 7:37 AM [facility] REPOSITORY HNO ID: [id number] Author: Negra Barajas RN Service: (none) Author Type: (none) Type: Progress Notes Filed: 07/04/2017 7:38 AM Note Text: Patient had INR completed at [facility] Patient's INR is 2.9 Patient is currently taking 7.5mg SaSu, 5mg all other days Patient's last dose change was 05/09/17 due to low INR at 1.8 Patient has had no medication and no change in diet. Advised patient to continue on same dose and they would only be contacted with different instructions after provider review. Written instructions were given to patient and patient verbalized understanding. Presently, patient has been scheduled for 08/01/17 for INR follow up. PROGRESS Observed: 06/06/2017 Status: COMPLETED Source: IDANHA 9:01 AM [facility] REPOSITORY HNO ID: [id number] Author: Kimberly Farah Service: (none) Author Type: Nurse Practitioner Type: Progress Notes Filed: 06/06/2017 9:01 AM Note Text: Kyaw Farah APRN.CNP PROGRESS Observed: 06/06/2017 Status: COMPLETED Source: IDANHA 8:23 AM [facility] REPOSITORY HNO ID: [id number] Author: Negra Barajas RN Service: (none) Author Type: (none) Type: Progress Notes Filed: 06/06/2017 8:25 AM Note Text: Patient had INR completed at [facility] Patient's INR is 2.3 Patient is currently taking 7.5mg SaSu, 5mg all other days Patient's last dose change was 05/09/17 due to low INR at 1.8 Patient has had no medication and no change in diet. Advised patient to continue on same dose and they would only be contacted with different instructions after provider review. Written instructions were given to patient and patient verbalized understanding. Presently, patient has been scheduled for 07/04/17 for INR follow up. Negra Barajas RN PROGRESS Observed: 05/23/2017 Status: COMPLETED Source: IDANHA 1:16 PM [facility] REPOSITORY HNO ID: [id number] Author: Negra Barajas RN Service: (none) Author Type: (none) Type: Progress Notes Filed: 05/23/2017 1:16 PM Note Text: Patient scheduled for 06/06/17. Notified of below. Verbalized understanding. PROGRESS Observed: 05/23/2017 Status: COMPLETED Source: IDANHA 12:22 PM [facility] REPOSITORY HNO ID: [id number] Author: Bernardo Alfaro Service: (none) Author Type: Physician Type: Progress Notes Filed: 05/23/2017 1:16 PM Note Text: Continue Coumadin dose. INR in 2 weeks. PROGRESS Observed: 05/23/2017 Status: COMPLETED Source: IDANHA 7:40 AM [facility] REPOSITORY HNO ID: [id number] Author: Negra Barajas RN Service: (none) Author Type: (none) Type: Progress Notes Filed: 05/23/2017 7:41 AM Note Text: Patient had INR completed at [facility] Patient's INR is 2.8 Patient is currently taking 7.5mg SaSu, 5mg all other days Patient's last dose change was 05/09/17 due to low INR at 1.8 Patient has had no medication and no change in diet. Advised patient to continue on same dose and they would only be contacted with different instructions after provider review. Written instructions were given to patient and patient verbalized understanding. Presently, patient has been scheduled for 06/20/17 for INR follow up. PROGRESS Observed: 05/09/2017 Status: COMPLETED Source: IDANHA 3:07 PM [facility] REPOSITORY HNO ID: [id number] Author: Negra Barajas RN Service: (none) Author Type: (none) Type: Progress Notes Filed: 05/09/2017 3:08 PM Note Text: Patient notified of below. Verbalized understanding. Follow up scheduled 05/23/17 PROGRESS Observed: 05/09/2017 Status: COMPLETED Source: IDANHA 8:08 AM [facility] REPOSITORY HNO ID: [id number] Author: Bernardo Alfaro Service: (none) Author Type: Physician Type: Progress Notes Filed: 05/09/2017 3:08 PM Note Text: Increase Coumadin dose. 7.5 mg Sat and Sun and 5 mg M,T,W,Charo,F. INR in 2 weeks. BASIC METABOLIC PANL Collected: 05/09/2017 Status: F Source: IDANHA 7:42 AM [facility] REPOSITORY TYPE CODE TESTS RESULT OUT OF REFERENCE UNITS RANGE LAB GLU 74-99 mg/dL High Glucose 119 Result Comment: The [place] Diabetes Association (ADA) provides guidance for cutoff values for fasting glucose and random glucose. The ADA defines fasting as no caloric intake for at least 8 hours. Fas ting plasma glucose results between 100 to 125 mg/dL indicate increased risk for diabetes (prediabetes). Fasting plasma glucose results greater than or equal to 126 mg/dL meet the criteria for diagnosis of diabetes. In the absence of unequivocal hyperglycemia, results should be confirmed by repeat testing. In a patient with classic symptoms of hyperglycemia or hyperglycemic crisis, random plasma glucose results greater than or equal to 200 mg/dL meet the criteria for diagnosis of diabetes. Reference: Standards of Medical Care in Diabetes 2016, [place] [employer]. Diabetes Care. 2016.39(Suppl 1). LAB BUN 7-21 mg/dL BUN High 27 LAB CRET 0.58-0.96 mg/dL Creatinine High 1.26 LAB NA 136-144 mmol/L Sodium 141 LAB K 3.7-5.1 mmol/L Potassium 4.8 LAB CL 97-105 mmol/L Chloride 101 LAB CO2 22-30 mmol/L CO2 25 LAB AGAP 9-18 mmol/L Anion Gap 15 LAB CA 8.5-10.2 mg/dL Calcium, High Total 10.3 LAB GFRAA eGFR- Amer. 51 LAB GFRNAA . eGFR-All Other Races 42 Result Comment: eGFR (Estimated GFR) Units of measure: mL/min/1.73 meters squared eGFR is derived from the reexpressed MDRD Study equation using the following parameters: serum creatinine, age, gender and race. The creatinine assay has been calibrated to be traceable to IDMS. An eGFR <60 mL/min/1.73m2 for >3 months is consistent with chronic kidney disease. Refer to KDOQI guidelines for clinical interpretation. In patients with unstable renal function, e.g. those with acute kidney injury, the eGFR may not accurately reflect actual GFR. Performed By: #### BMP #### [facility] [address] [place], [place] [address] PROGRESS Observed: 05/09/2017 Status: COMPLETED Source: IDANHA 7:40 AM [facility] REPOSITORY HNO ID: [id number] Author: Negra Barajas RN Service: (none) Author Type: (none) Type: Progress Notes Filed: 05/09/2017 7:41 AM Note Text: Patient had INR completed at [facility] Patient's INR is 1.8 Patient is currently taking 5 mg daily Patient's last dose change was 10/25/16 due to high INR at 3.4 Patient has had no medication and no change in diet. Advised patient that they would be contacted regarding medication dose and follow-up once reviewed by provider. After provider review, please contact patient with information and schedule follow-up appointment with coumadin clinic. Patient currently scheduled for 2 week follow up for INR recheck. CNCO Observed: 04/15/2017 Status: COMPLETED Source: IDANHA 10:32 AM [facility] REPOSITORY HNO ID: [id number] Author: Mammography Coordinator Service: (none) Author Type: Physician Type: Letter Filed: 04/16/2017 11:31 PM Note Text: April 15, 2017 PID: [id number] Annette Combs [address] [place] [address] [place] [address] Dear Ms. Combs, We are pleased to inform you that the results of your recent breast imaging exam on 04/15/2017 are normal. Your mammogram demonstrates that you have dense breast tissue, which could hide abnormalities. Dense breast tissue, in and of itself, is a relatively common condition. Therefore, this information is not provided to cause undue concern; rather, it is to raise your awareness and promote discussion with your health care provider regarding the presence of dense breast tissue in addition to other risk factors. Early detection of cancer is very important. We also understand recommendations regarding breast cancer screening are controversial. Please discuss with your primary care provider which strategy is best for you and whether a mammogram is right for you. Your imaging studies and report will be kept on file at [facility] as part of your permanent medical record and are available for your continuing care. Thank you for allowing us to help in meeting your health care needs. Sincerely, Dr. Arroyo Interpreting Radiologist [facility] (Normal over 40) DANAY DIG SCREEN CAD Observed: 04/15/2017 Status: F Source: [facility] 8:39 AM [facility] REPOSITORY * * *Final Report* * * DATE OF EXAM: Apr 15 2017 8:39AM WO [id number] - DANAY DIG SCREEN CAD LIZZETH - BILATERAL / PROCEDURE REASON: Encounter for screening mammogram for malignant neoplasm of breast * * * * Physician Interpretation * * * * RESULT: #[id number] - DANAY DIG SCREEN CAD LIZZETH BILATERAL DIGITAL SCREENING MAMMOGRAM WITH CAD: 04/15/2017 HISTORY: Encounter For Screening Mammogram For Malignant Neoplasm Of Breast\ Screening Mammogram - patient reports NO breast symptoms /priors available for comparison. RESULT: TECHNIQUE: The study was acquired using full field digital technology and interpreted from soft copy. Current study was also evaluated with a Computer Aided Detection (CAD). Comparison is made to exams dated: 04/10/2016 mammogram, 04/05/2015 mammogram, and 02/25/2014 mammogram - [facility]. The tissue of both breasts is heterogeneously dense. This may lower the sensitivity of mammography. No significant masses, calcifications, or other findings are seen in either breast. There has been no significant interval change. IMPRESSION: NEGATIVE There is no mammographic evidence of malignancy.A 1 year screening mammogram is recommended. Micah george/bre:04/15/2017 10:32:42 Childcare Worker: Cinthya Patel RT(R)(M), [facility] letter sent: Normal over 40 Mammogram BI-RADS: 1 Negative Instructor Watch Assembly: Bre Transcribe Date/Time: Apr 15 2017 8:26A Dictated by: MICAH ARROYO MD This examination was interpreted and the report reviewed and electronically signed by: MICAH ARROYO MD on Apr 15 2017 10:32AM EST PROGRESS Observed: 04/11/2017 Status: COMPLETED Source: [facility] 1:54 PM [facility] REPOSITORY HNO ID: [id number] Author: Bernardo Alfaro Service: (none) Author Type: Physician Type: Progress Notes Filed: 04/11/2017 1:54 PM Note Text: Okay. ALBUMIN/CREAT RATIO Collected: 04/11/2017 Status: F Source: [facility] 7:57 AM [facility] REPOSITORY TYPE CODE TESTS RESULT OUT OF REFERENCE UNITS RANGE LAB UCRR 20-300 mg/dL Creatinine,Ur 60.9 ine,Ran LAB UALBR 0.0-23.0 mg/L High Albumin Urine 114.1 Random LAB UALBCR 0-30 mg/g High Albumin/Creat 187 Ratio Result Comment: 30 to 300 mg/g indicates an increased risk for diabetic nephropathy. Greater than 300 mg/g is consistent with clinical nephropathy. (Am J Kidney Disease 1995, 25:107) Performed By: #### UACR #### [facility] [address] [address] LIPID PANEL, BASIC Collected: 04/11/2017 Status: F Source: [facility] 7:52 AM [facility] REPOSITORY TYPE CODE TESTS RESULT OUT OF REFERENCE UNITS RANGE LAB CHOL <200 mg/dL Cholesterol 183 Result Comment: <200 mg/dL, Desirable 200-239 mg/dL, Borderline high >239 mg/dL, High LAB TRIGLY <150 mg/dL Triglyceride High 213 Result Comment: <150 mg/dL, Normal 150-199 mg/dL, Borderline high 200-499 mg/dL, High >499 mg/dL, Very high LAB HDL >39 mg/dL HDL-Cholesterol Low 36 Result Comment: 40-59 mg/dL, Acceptable >59 mg/dL, High: Negative risk factor for coronary heart disease <40 mg/dL, Low: Positive risk factor for coronary heart disease LAB LDL <100 mg/dL LDL-Cholesterol High 104 Result Comment: <100 mg/dL, Optimal 100-129 mg/dL, Near optimal/above optimal 130-159 mg/dL, Borderline high 160-189 mg/dL, High >189 mg/dL, Very high Secondary prevention optimal LDL Cholesterol levels are recommended to be < 70 mg/dL LAB NONHDL <130 mg/dL Non HDL High Cholesterol 147 Result Comment: <130 mg/dL, Optimal 130-159 mg/dL, Near optimal/above optimal 160-189 mg/dL, Borderline high 190-219 mg/dL, High >219 mg/dL, Very high Secondary prevention optimal non HDL Cholesterol levels are recommended to be < 100 mg/dL LAB FT hrs Fasting Time 1 LAB VLDL <30 mg/dL High VLDL Cholesterol 43 LAB TCHDL <5.10 TC:HDL Ratio 5.08 LAB LDLHDL <2.54 High LDL:HDL Ratio 2.89 Result Comment: Reference: 1. National Cholesterol Education Program ATP III Guideline At-A-Glance Quick Desk Reference: National Heart, Lung, and Blood [place]. National Institutes of Health. 2001: NIH Publication No. 01-3305. 2. An International Atherosclerosis Society position paper: global recommendations for the management of dyslipidemia: executive summary, Atherosclerosis. 2014: 232(2):410-413. Performed By: #### LIPB #### [facility] [address] [place] [address] BASIC METABOLIC PANL Collected: 04/11/2017 Status: F Source: [facility] 7:51 AM [facility] REPOSITORY TYPE CODE TESTS RESULT OUT OF REFERENCE UNITS RANGE LAB GLU 74-99 mg/dL High Glucose 108 Result Comment: The [place] Diabetes Association (ADA) provides guidance for cutoff values for fasting glucose and random glucose. The ADA defines fasting as no caloric intake for at least 8 hours. Fas ting plasma glucose results between 100 to 125 mg/dL indicate increased risk for diabetes (prediabetes). Fasting plasma glucose results greater than or equal to 126 mg/dL meet the criteria for diagnosis of diabetes. In the absence of unequivocal hyperglycemia, results should be confirmed by repeat testing. In a patient with classic symptoms of hyperglycemia or hyperglycemic crisis, random plasma glucose results greater than or equal to 200 mg/dL meet the criteria for diagnosis of diabetes. Reference: Standards of Medical Care in Diabetes 2016, [place] Diabetes Association. Diabetes Care. 2016.39(Suppl 1). LAB BUN 7-21 mg/dL BUN High 37 LAB CRET 0.58-0.96 mg/dL Creatinine High 1.23 LAB NA 136-144 mmol/L Sodium 139 LAB K 3.7-5.1 mmol/L Potassium 4.7 LAB CL 97-105 mmol/L Chloride 104 LAB CO2 22-30 mmol/L CO2 23 LAB AGAP 9-18 mmol/L Anion Gap 12 LAB CA 8.5-10.2 mg/dL Calcium, Total 9.6 LAB GFRAA eGFR- Amer. 53 LAB GFRNAA . eGFR-All Other Races 44 Result Comment: eGFR (Estimated GFR) Units of measure: mL/min/1.73 meters squared eGFR is derived from the reexpressed MDRD Study equation using the following parameters: serum creatinine, age, gender and race. The creatinine assay has been calibrated to be traceable to IDMS. An eGFR <60 mL/min/1.73m2 for >3 months is consistent with chronic kidney disease. Refer to KDOQI guidelines for clinical interpretation. In patients with unstable renal function, e.g. those with acute kidney injury, the eGFR may not accurately reflect actual GFR. Performed By: #### BMP, TSH, B12, HBA1C #### [facility] [address] [address] TSH Collected: 04/11/2017 Status: F Source: [facility] 7:51 AM [facility] REPOSITORY TYPE CODE TESTS RESULT OUT OF RANGE REFERENCE UNITS LAB TSH 0.400-5.500 uU/mL TSH 1.820 Performed By: #### BMP, TSH, B12, HBA1C #### [facility] [address] [address] VITAMIN B12 Collected: 04/11/2017 Status: F Source: [facility] 7:51 AM [facility] REPOSITORY TYPE CODE TESTS RESULT OUT OF REFERENCE UNITS RANGE LAB B12 232-1245 pg/mL Vitamin B12 697 Performed By: #### BMP, TSH, B12, HBA1C #### [facility] [address] [phone] HEMOGLOBIN A1C Collected: 04/11/2017 Status: F Source: [facility] 7:51 AM [facility] REPOSITORY TYPE CODE TESTS RESULT OUT OF REFERENCE UNITS RANGE LAB HGBA1C 4.3-5.6 % High Hemoglobin A1c 6.4 LAB HBA0 mg/dL Est. Average Glucose 137 Result Comment: eAG: (Estimated average glucose) is a calculated value from HgbA1c and is outside medical 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 of the average blood glucose level in the last 2-3 month period. Performed By: #### BMP, TSH, B12, HBA1C #### [facility] [address] [facility] [address] PROGRESS Observed: 04/11/2017 Status: COMPLETED Source: [facility] 7:46 AM [facility] REPOSITORY HNO ID: [id number] Author: Negra Barajas RN Service: (none) Author Type: (none) Type: Progress Notes Filed: 04/11/2017 7:47 AM Note Text: Patient had INR completed at [facility] Patient's INR is 2.7 Patient is currently taking 5 mg daily Patient's last dose change was 10/25/16 due to high INR at 3.4 Patient has had no medication and no change in diet. Advised patient to continue on same dose and they would only be contacted with different instructions after provider review. Written instructions were given to patient and patient verbalized understanding. Presently, patient has been scheduled for 05/09/17 for INR follow up. PROGRESS Observed: 04/10/2017 Status: COMPLETED Source: [facility] 8:24 AM [facility] REPOSITORY HNO ID: [id number] Author: Bernardo Alfaro Service: (none) Author Type: Physician Type: Progress Notes Filed: 04/10/2017 9:02 AM Note Text: This note was created using Gumiy[employer]. Subjective Annette Combs is a 66 year old female for follow up. Degenerative lumbar spinal stenosis - ICD9: 724.02, ICD10: M48.06 Postlaminectomy syndrome - ICD9: 722.80, ICD10: M96.[address] Iyer. ? Gastroesophageal reflux disease, esophagitis presence not specified - ICD9: 530.81, ICD10: K21.9 Controlled. ? Mixed incontinence - ICD9: 788.33, ICD10: N39.46 Controlled. ? Chronic cystitis - ICD9: 595.2, ICD10: N30.20 Controlled. ? Hyperlipidemia, unspecified hyperlipidemia type - ICD9: 272.4, ICD10: E78.5 Controlled. Foot drop, left - ICD9: 736.79, ICD10: M21.372 Continue AFO. ? Chronic deep vein thrombosis (DVT) of proximal vein of both lower extremities (HCC) - ICD9: 453.51, ICD10: I82.5Y3 Warfarin managed. ? Mild intermittent asthma without complication - ICD9: 493.90, ICD10: J45.20 Mild intermittent Asthma stable after recent bronchitis. ? Cognitive impairment - ICD9: 294.9, ICD10: R41.89 Evaluate further at follow up. ? Diabetes mellitus, new onset (HCC) - ICD9: 250.00, ICD10: E11.9 newly diagnosed based on A1C. METFORMIN tolerated. Checking pre and post prandial. Range 88-199. ? Review of Systems Constitutional: Negative. Respiratory: Negative. Cardiovascular: Negative. Endocrine: Negative. Objective BP 114/72 (BP Site: Left Arm, BP Position: Sitting, BP Cuff Size: Regular Adult) Pulse 80 Temp 36.3 ?C (97.4 ?F) (Left Tympanic) Resp 16 Wt 80.3 kg (177 lb) BMI 31.56 kg/m2 Physical Exam Constitutional: No distress. HENT: Nose: Nose normal. Mouth/Throat: Oropharynx is clear and moist. Cardiovascular: Normal heart sounds and intact distal pulses. Pulmonary/Chest: Breath sounds normal. Musculoskeletal: She exhibits no edema. Neurological: She is alert. No cranial nerve deficit. Coordination normal. Left foot drop. Feet: Shoes and socks removed, No deformities, ulcers, calluses, normal distal pulses and not sensitive to monofilament in some toes. Assessment and Plan ASSESSMENT/PLAN: 1. Diabetes mellitus, new onset (HCC) - ICD9: 250.00, ICD10: E11.9 (primary diagnosis) newly diagnosed - Continue current medications - METFORMIN 500 MG TABLET - BASIC METABOLIC PNL - HGB A1C - ALBUMIN/CREAT RATIO RND UR - Have eye exam report from last year sent here. 2. Uncomplicated asthma, unspecified asthma severity, unspecified whether persistent - ICD9: 493.90, ICD10: J45.909 - Avoidance of triggers recommended - Asthma Action Plan reviewed - FLUTICASONE 100 MCG-SALMETEROL 50 MCG/DOSE BLISTR POWDR FOR INHALATION 3. Chronic deep vein thrombosis (DVT) of proximal vein of both lower extremities (HCC) - ICD9: 453.51, ICD10: I82.5Y3 Anticoagulated. 4. Foot drop, left - ICD9: 736.79, ICD10: M21.372 Using AFO. 5. Cognitive impairment - ICD9: 294.9, ICD10: R41.89 Attempted MMSE. Patient's responses were delayed and perseverating and test not completed. - TSH BLD - VITAMIN B12 BLOOD Bernardo Alfaro MD PROGRESS Observed: 03/31/2017 Status: COMPLETED Source: [facility] 11:05 AM [facility] REPOSITORY HNO ID: [id number] Author: Lety Beltran) Red Service: (none) Author Type: Physician Fur Stylist Type: Progress Notes Filed: 04/02/2017 6:17 AM Note Text: HPI Pt presents with cough and congestion x 3 weeks. Pt is not a smoker, states she is on inhalers daily. No fever. No nvd or diarrhea. She is diabetic. Review of Systems Constitutional: Negative. HENT: Positive for congestion. Negative for ear pain and sore throat. Eyes: Negative. Respiratory: Positive for cough. Cardiovascular: Negative. Gastrointestinal: Negative. Genitourinary: Negative. Musculoskeletal: Negative. Skin: Negative. All other systems reviewed and are negative. 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 Almendarez - Nontraumatic rupture of patellar tendon July 2007; sugical repair 07/29/[address] Devries - Other and unspecified hyperlipidemia 06/20/2012 - Other pulmonary embolism and infarction - PULM EMBOLISM/INFARCT NOS - Scoliosis Xray from [facility] 08/03/11 showed; also has narrowing L3-L4 and L4- L5; DJD L3, L4, L5; slight anterior displacement L4 on L5. - Symptomatic menopausal or female climacteric states - Unspecified asthma(493.90) - Unspecified hemorrhoids without mention of complication Hemorrhoids - Urge incontinence 02/01/2005 - VENOUS THROMBOSIS LOWER EXTREMITY NOS 10/30/2006 Post op left knee arthroscopy; ?PE at that time Current Outpatient Prescriptions: metFORMIN (GLUCOPHAGE) 500 mg tablet Take 1 tablet by mouth daily with breakfast. For diabetes. Disp: 30 tablet Rfl: 1 Blood-Glucose Meter monitoring kit Glucose Meter of Choice - Kit - Dx: Type 2 DM - Uncontrolled E11.9 Disp: 1 Each Rfl: 0 blood sugar diagnostic (BLOOD GLUCOSE TEST) test strip Test blood sugar(s) 2 times daily. Dx: Type 2 DM - Uncontrolled E11.9 Insulin: No Disp: 100 Strip Rfl: 11 Lancets lancets Test blood sugar(s) 2 times daily. Dx: Type 2 DM - Uncontrolled E11.9 Insulin: No Disp: 100 Each Rfl: 11 Estradiol (YUVAFEM) 10 mcg tab vaginal tablet Use 1 tablet vaginally every Saturday and Saturday. Disp: 20 tablet Rfl: 11 warfarin (COUMADIN) 5 mg tablet Take 1 tablet by mouth daily as directed. Disp: 45 tablet Rfl: 5 omeprazole (PRILOSEC) 20 mg capsule Take 1 capsule by mouth daily before breakfast. 1/2 hr before meal. Disp: 30 capsule Rfl: 11 Levocetirizine (XYZAL) 5 mg tablet Take 1 tablet by mouth once daily. Disp: 30 tablet Rfl: 11 simvastatin (ZOCOR) 20 mg tablet Take 1 tablet by mouth daily at bedtime. Disp: 90 tablet Rfl: 3 traMADol (ULTRAM) 50 mg tablet Take 1 tablet by mouth twice daily as needed for Pain. Disp: Rfl: ASCORBIC ACID/BIOFLAVONOIDS (MELANIE C ORAL) Take by mouth. Disp: Rfl: oxybutynin XL (DITROPAN XL) 10 mg 24 hr tablet Take 1 tablet by mouth once daily. Disp: 90 tablet Rfl: 6 fluticasone-salmeterol (ADVAIR DISKUS) 100-50 mcg/dose dsdv Inhale 1 Puff as instructed twice daily. as directed Disp: 3 Inhaler Rfl: 3 albuterol HFA (PROVENTIL HFA) 90 mcg/actuation inhaler Inhale 2 Puffs as instructed every 4 hours as needed for Wheezing/Shortness of Breath. MAY GIVE AVAILABLE EQUIVALENT ALBUTEROL HFA INHALER Disp: 3 Inhaler Rfl: 3 Calcium-Cholecalciferol, D3, (CALCIUM 500 + D, D3,) 500-125 mg-unit ORAL Tab Take two(2) tablets twice daily. Disp: Rfl: 0 [place]-3 Fatty Acids-Vitamin E (FISH OIL) 1,000 mg ORAL Cap Take 3 pills once daily (?dose) Disp: Rfl: 0 THERAPEUTIC MULTIVITAMIN ORAL TAB Take one(1) tablet daily. Disp: Rfl: 0 doxycycline (VIBRA-TABS) 100 mg tablet Take 1 tablet by mouth twice daily for 10 days. Disp: 20 tablet Rfl: 0 No current facility-administered medications for this visit. PAST SURGICAL HISTORY Procedure Laterality Date - DELIVERY ONLY 1988 , low cervical - COLONOSCOPY 03/25/01 R Cebul - hyperplastic polyp - COLONOSCOPY W/BX 05/17/11 repeat - EGD W/O BRSH SPECIMEN W/BX 05/17/11 - FILTER PLACEMENT (VENA CAVA) 11-03-12 - HEMORRHOIDECT INTER/EXTER SIMP 03/27/01 - KNEE SCOPE,DIAGNOSTIC Left 05/10/2003 Arthroscopy, knee Left - L'SCOPE DX W/WO BRUSHINGS/WASHINGS 1999 Laparoscopy - LAMINECTOMY,LUMBAR 1994 Back surgery - LAMINECTOMY,LUMBAR 11/05/2012 Laminectomy, lumbar - LIGATE FALLOPIAN TUBE 1988 Tubal ligation - OPEN RX ANKLE DISLOCATN+FIXATN 1986 ORIF Ankle - PAST SURGICAL HISTORY OF 2003 Thumb bilateral - PAST SURGICAL HISTORY OF Left 07/2006 partial knee replacement left - PAST SURGICAL HISTORY OF Right 2008 repair knee cap - PAST SURGICAL HISTORY OF 03/26/2014 transurethral resection of bladder lesion. vaginal sling. Dr. Almendarez - REMOVAL OF OVARY/TUBE(S) 1999 Salpingo-oophorectomy bilateral - RETRIEV INTRAVASC FOREGN BODY 01/30/13 filter removal - TOTAL ABDOM HYSTERECTOMY 1999 AANDP REPAIR hyst for benign reason - TOTAL KNEE REPLACEMENT Right 2009 right knee replacement FAMILY HISTORY Problem Relation Age of Onset - Blood Disease Mother blood clot, coumadin - Hypertension Mother - Coronary Artery Disease Mother 84 - Cancer Father poss bladder - Prostate Cancer Father - None Sister - None Sister - None Sister - Diabetes Paternal Grandmother - Colon Cancer Paternal Grandmother - Stroke Paternal Grandfather - Diabetes Paternal Grandfather - Cancer Maternal Grandfather LEUKEMIA - Cancer Maternal Uncle - Psychiatry Sister anxiety Social History Substance Use Topics - Smoking status: Former Smoker Quit date: 02/18/1969 - Smokeless tobacco: Never Used - Alcohol use No Comment: rarely, one drink every 3-4 hours BP 126/80 Pulse 100 Temp 36.7 ?C (98 ?F) (Tympanic) Resp 24 Wt 79.8 kg (176 lb) SpO2 97% BMI 31.38 kg/m2 Physical Exam Constitutional: She is oriented to person, place, and time and well-developed, well-nourished, and in no distress. HENT: Head: Normocephalic and atraumatic. Right Ear: External ear normal. Left Ear: External ear normal. Nose: Mucosal edema and rhinorrhea present. Mouth/Throat: Oropharynx is clear and moist. Neck: Normal range of motion. Neck supple. Cardiovascular: Normal rate, regular rhythm and normal heart sounds. Pulmonary/Chest: Effort normal and breath sounds normal. No respiratory distress. She has no wheezes. Lymphadenopathy: She has no cervical adenopathy. Neurological: She is alert and oriented to person, place, and time. Skin: Skin is warm and dry. No rash noted. Psychiatric: Affect and judgment normal. Nursing note and vitals reviewed. ASSESSMENT/PLAN: 1. Acute bronchitis, unspecified organism - ICD9: 466.0, ICD10: J20.9 Pt given doxycycline. She did not want any other cough medications as she states they all don't work. Discussed with patient concerning symptoms to go to the emergency department or follow up here. Pt agreeable with this plan. Lety Moon PA-C PROGRESS Observed: 03/28/2017 Status: COMPLETED Source: [facility] 12:37 PM [facility] REPOSITORY HNO ID: [id number] Author: Bernardo Alfaro Service: (none) Author Type: Physician Type: Progress Notes Filed: 03/28/2017 12:37 PM Note Text: I agree. PROGRESS Observed: 03/28/2017 Status: COMPLETED Source: [facility] 8:23 AM [facility] REPOSITORY HNO ID: [id number] Author: Negra Barajas RN Service: (none) Author Type: (none) Type: Progress Notes Filed: 03/28/2017 8:24 AM Note Text: Patient had INR completed at [facility] Patient's INR is 1.9 Patient is currently taking 5 mg daily Patient's last dose change was 10/25/16 due to high INR at 3.4 Patient has had no medication and no change in diet. Advised patient to continue on same dose and they would only be contacted with different instructions after provider review. Written instructions were given to patient and patient verbalized understanding. Presently, patient has been scheduled for 04/11/17 for INR follow up. PROGRESS Observed: 03/14/2017 Status: COMPLETED Source: [facility] 11:48 AM [facility] REPOSITORY HNO ID: [id number] Author: Kimberly ([place]) Older Service: (none) Author Type: Nurse Practitioner Type: Progress Notes Filed: 03/14/2017 1:37 PM Note Text: CC: Patient presents with: Acute Visit: Cough, sore throat HPI: Annette Combs is a 66 year old female who presents to the office with complaint of respiratory symptoms since this morning. Associated symptoms includes nasal congestion, cough and wheezing. Denies facial pain/pressure, fever and dyspnea. Treatments tried include nothing so far except Albuterol inhaler for wheezing with temporary relief of symptoms. Sick contacts: no. History of asthma, frequent episodes of bronchitis, chronic bronchitis, bronchiectasis or COPD: Yes chronic bronchitis. Used inhaler this morning without much relief. Smoker: No Seasonal/environmental allergies: No The ROS is otherwise negative. The patient's pmh, medications, allergies, and past visits are reviewed. PHYSICAL EXAM: BP 128/68 Pulse 96 Temp 36.8 ?C (98.2 ?F) (Temporal Artery) Resp 16 Wt 81.1 kg (178 lb 12.8 oz) SpO2 97% BMI 31.88 kg/m2 General appearance: alert, cooperative, pleasant, in no acute distress Head: Normocephalic Eyes: conjunctiva pink and moist, no icterus, sclera white, non-injected Ears: Right ear: Normal, TM - clear with good landmarks. Left ear: Normal, TM - clear with good landmarks Nose: clear, no sinus tenderness. Oropharynx:No erythema, exudates or tonsillar hypertrophy. Neck:supple and no adenopathy Heart: Negative. RRR without obvious murmur, gallop, or rubs. No ectopy. Lungs: clear to auscultation, without rales or wheeze, good air exchange ASSESSMENT/PLAN: 1. Viral URI with cough - ICD9: 465.9, ICD10: J06.9, B97.89 - Discussed viral etiology and rationale for treatment. - Symptomatic treatment with prn analgesia - Supportive care with fluids and rest - The patient may also use cough medicine as needed. - Follow up in 7 to 10 days if symptoms persist or sooner if worsening of symptoms Kimberly Farah CNP Prescription instructions reviewed with patient as applicable. Potential red flag symptoms discussed with the patient. Reviewed appropriate action plan to take if red flag symptoms occur. Patient agreeable to treatment plan. CNOV Observed: 03/14/2017 Status: COMPLETED Source: [facility] 11:40 AM [facility] REPOSITORY Office Visit ([facility]) ANNETTE COMBS ([id number]) 1950 F Date Time Provider Department 03/14/17 11:40 AM KIMBERLY FARAH ([place]) [facility] During your visit today, we recorded the following information about you: Temperature Pulse Respiration Blood pressure 98.2 degrees 96/minute 16/minute 128/68 Weight 81.1 kg Kimberly Farah CNP 03/14/2017 1:37 PM Signed CC: Patient presents with: Acute Visit: Cough, sore throat HPI: Annette Combs is a 66 year old female who presents to the office with complaint of respiratory symptoms since this morning. Associated symptoms includes nasal congestion, cough and wheezing. Denies facial pain/pressure, fever and dyspnea. Treatments tried include nothing so far except Albuterol inhaler for wheezing with temporary relief of symptoms. Sick contacts: no. History of asthma, frequent episodes of bronchitis, chronic bronchitis, bronchiectasis or COPD: Yes chronic bronchitis. Used inhaler this morning without much relief. Smoker: No Seasonal/environmental allergies: No The ROS is otherwise negative. The patient's pmh, medications, allergies, and past visits are reviewed. PHYSICAL EXAM: BP 128/68 Pulse 96 Temp 36.8 ?C (98.2 ?F) (Temporal Artery) Resp 16 Wt 81.1 kg (178 lb 12.8 oz) SpO2 97% BMI 31.88 kg/m2 General appearance: alert, cooperative, pleasant, in no acute distress Head: Normocephalic Eyes: conjunctiva pink and moist, no icterus, sclera white, non-injected Ears: Right ear: Normal, TM - clear with good landmarks. Left ear: Normal, TM - clear with good landmarks Nose: clear, no sinus tenderness. Oropharynx:No erythema, exudates or tonsillar hypertrophy. Neck:supple and no adenopathy Heart: Negative. RRR without obvious murmur, gallop, or rubs. No ectopy. Lungs: clear to auscultation, without rales or wheeze, good air exchange ASSESSMENT/PLAN: 1. Viral URI with cough - ICD9: 465.9, ICD10: J06.9, B97.89 - Discussed viral etiology and rationale for treatment. - Symptomatic treatment with prn analgesia - Supportive care with fluids and rest - The patient may also use cough medicine as needed. - Follow up in 7 to 10 days if symptoms persist or sooner if worsening of symptoms Kimberly Farah CNP Prescription instructions reviewed with patient as applicable. Potential red flag symptoms discussed with the patient. Reviewed appropriate action plan to take if red flag symptoms occur. Patient agreeable to treatment plan. Kimberly Farah CNP 03/14/2017 11:55 AM Signed Here is some cold and flu information to help ease your symptoms: 1.) Get more rest than you usually do - this will speed your recovery. If you push hard with your usual busy schedule, you will be sicker longer. 2.) Drink a lot of water - enough to make you urinate every 2-3 hours (your urine should be a light yellow color). This helps thin the phlegm and sooth the airways. Gatorade (G2) is less in sugar and replaces your electrolytes if not eating well. 3.) Run a cool mist humidifier in your bedroom on high with the door closed. This is a natural way to decongest, and it helps lessen scratchy throats, nasal stuffiness and coughs. 4.) For cough: Robitussin DM 12 hour or Delsym 5) For nasal congestion, sinus pain/pressure: Nasal spray such as Flonase of Nasacort, available over the counter General information: * Green or yellow color does not mean you need an antibiotic; secretions can be green or yellow with viruses, such as the common cold * The average cold lasts 6-12 days. If you are not improving or are worsening by day 10 of symptoms follow up with the office Referring Provider: SELF [[id number]] Allergies As of Date: 03/14/2017 Noted Allergy Reaction CHLORHEXIDINE 05/21/2013 9 - Itching COTTON 10/12/2004 14 - Other: See Comments Comments: eyes become red and headache DARVON (PROPOXYPHENE HCL) 04/20/2008 1 - Mental Status Change FEATHERS 10/12/2004 14 - Other: See Comments Comments: eyes become red and headache GRASS POLLEN 10/08/2012 9 - Itching MORPHINE 04/20/2008 1 - Mental Status Change VINEGAR 10/12/2004 14 - Other: See Comments Comments: eyes become red and headache WOOL 10/12/2004 14 - Other: See Comments Comments: eyes become red and headache Date Reviewed: 03/14/2017 Reviewed by: Roseann Rice Elevator Service Technician - Fully Assessed Reason for Visit: Acute Visit [896] Cmt: Cough, sore throat Primary Visit Diagnosis:Viral URI with cough [J06.9, B97.89] Prescriptions as of 03/14/2017 Sig: METFORMIN 500 MG TABLET Take 1 tablet by mouth daily * BLOOD-GLUCOSE METER KIT Glucose Meter of Choice - Kit* BLOOD SUGAR DIAGNOSTIC STRIPS Test blood sugar(s) 2 times d* LANCETS Test blood sugar(s) 2 times d* ESTRADIOL 10 MCG VAGINAL TABL* Use 1 tablet vaginally every * WARFARIN 5 MG TABLET Take 1 tablet by mouth daily * OMEPRAZOLE 20 MG CAPSULE,AILYN* Take 1 capsule by mouth daily* LEVOCETIRIZINE 5 MG TABLET Take 1 tablet by mouth once d* SIMVASTATIN 20 MG TABLET Take 1 tablet by mouth daily * TRAMADOL 50 MG TABLET Take 1 tablet by mouth twice * MELANIE C ORAL Take by mouth. OXYBUTYNIN CHLORIDE ER 10 MG * Take 1 tablet by mouth once d* FLUTICASONE 100 MCG-SALMETERO* Inhale 1 Puff as instructed t* ALBUTEROL SULFATE HFA 90 MCG/* Inhale 2 Puffs as instructed * CALCIUM CARBONATE 500 MG (1,2* Take two(2) tablets twice mike* OMEGA-3 FATTY ACIDS-VITAMIN E* Take 3 pills once daily (?dos* THERAPEUTIC MULTIVITAMIN TABL* Take one(1) tablet daily. Problem List As Of Date 03/14/2017 Noted Resolved Unspecified tinnitus [H93.19] 03/11/2012 Allergic rhinitis, cause unspecified [J30.9] GENERAL OSTEOARTHROSIS [M15.9] Carpal tunnel syndrome [G56.00] 03/11/2012 Dizziness and giddiness [R42] 03/11/2012 Contusion of unspecified part of trunk [S20.20X* 03/11/2012 Acute, but ill-defined, cerebrovascular disease* 03/11/2012 Other specified disorder of bladder [596.8] INVALID FOR*03/11/2012 Urge incontinence [N39.41] INVALID FOR*10/28/2014 Dermatophytosis of nail [B35.1] INVALID FOR*03/11/2012 Asthma [J45.909] BONE AND CARTILAGE DIS NOS [M89.9, M94.9] INVALID FOR* Other pulmonary embolism and infarction [I26.99] 03/11/2012 KNEE JOINT REPLACEMENT STATUS [Z96.659] INVALID FOR* Chronic deep vein thrombosis (DVT) of proximal *INVALID FOR* More... Symptomatic menopausal or female climacteric st*INVALID FOR*03/11/2012 Anxiety state, unspecified [F41.1] INVALID FOR*03/11/2012 Urgency of urination [R39.15] INVALID FOR*03/11/2012 Microscopic hematuria [R31.29] INVALID FOR*03/11/2012 Gross hematuria [R31.0] INVALID FOR*03/11/2012 DVT (deep venous thrombosis) [I82.409] INVALID FOR*03/11/2012 Osteoarthritis of basilar joint of thumb, left *INVALID FOR*03/11/2012 More... Degenerative joint disease of right knee [M17.1*INVALID FOR*03/11/2012 More... Lung nodule [R91.1] INVALID FOR*03/11/2012 More... Overlapping toe [M20.5X9] INVALID FOR*03/11/2012 More... Foot drop, left [M21.372] INVALID FOR* Other hammer toe (acquired) [M20.40] INVALID FOR*10/21/2013 Diarrhea [R19.7] INVALID FOR*03/11/2012 Anemia, unspecified [D64.9] INVALID FOR*03/11/2012 Dermatofibroma of right lower leg [D23.71] INVALID FOR*03/11/2012 Scar condition and fibrosis of skin [L90.5] INVALID FOR*03/11/2012 Other seborrheic keratosis [L82.1] INVALID FOR*03/11/2012 Melanocytic nevi of trunk: back [D22.5] INVALID FOR*10/28/2014 Other acne [L70.8] INVALID FOR*03/11/2012 Granuloma of hair follicle [L98.0] INVALID FOR*03/11/2012 Excoriation [T14.8XXA] INVALID FOR*03/11/2012 Actinic skin damage [L57.8] INVALID FOR*10/28/2014 Colitis, collagenous [K52.831] INVALID FOR*03/11/2012 Scoliosis [M41.9] 03/11/2012 More... Degenerative lumbar spinal stenosis [M48.061] INVALID FOR* More... 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 Mixed incontinence [N39.46] INVALID FOR* More... Spondylolisthesis of lumbar region [M43.16] INVALID FOR*11/08/2016 Gastroesophageal reflux disease [K21.9] INVALID FOR* Postlaminectomy syndrome [M96.1] INVALID FOR* Postmenopausal atrophic vaginitis [N95.2] INVALID FOR* Diabetes mellitus, new onset (HCC) [E11.9] INVALID FOR* Other instructions from your clinician: Here is some cold and flu information to help ease your symptoms: 1.) Get more rest than you usually do - this will speed your recovery. If you push hard with your usual busy schedule, you will be sicker longer. 2.) Drink a lot of water - enough to make you urinate every 2-3 hours (your urine should be a light yellow color). This helps thin the phlegm and sooth the airways. Gatorade (G2) is less in sugar and replaces your electrolytes if not eating well. 3.) Run a cool mist humidifier in your bedroom on high with the door closed. This is a natural way to decongest, and it helps lessen scratchy throats, nasal stuffiness and coughs. 4.) For cough: Robitussin DM 12 hour or Delsym 5) For nasal congestion, sinus pain/pressure: Nasal spray such as Flonase of Nasacort, available over the counter General information: * Green or yellow color does not mean you need an antibiotic; secretions can be green or yellow with viruses, such as the common cold * The average cold lasts 6-12 days. If you are not improving or are worsening by day 10 of symptoms follow up with the office Encounter Status:Closed by KIMBERLY FARAH CNP on 03/14/17 PROGRESS Observed: 02/21/2017 Status: COMPLETED Source: [place] 1:24 PM [facility] REPOSITORY HNO ID: [id number] Author: Bernardo Alfaro Service: (none) Author Type: Physician Type: Progress Notes Filed: 02/21/2017 1:24 PM Note Text: Okay. HOSP Observed: 02/21/2017 Status: COMPLETED Source: [place] 8:15 AM [facility] REPOSITORY Anticoagulation Visit (COUMWS) ANNETTE COMBS ([id number]) 1950 F Date Time Provider Department 02/21/17 8:15 AM [facility] COUMWS During your visit today, we recorded the following information about you: Negra Barajas RN 02/21/2017 7:46 AM Signed Patient had INR completed at [facility] Patient's INR is 2.6 Patient is currently taking 5 mg daily Patient's last dose change was 10/25/16 due to high INR at 3.4 Patient has had no medication and no change in diet. Advised patient to continue on same dose and they would only be contacted with different instructions after provider review. Written instructions were given to patient and patient verbalized understanding. Presently, patient has been scheduled for 03/21/17 for INR follow up. Bernardo Alfaro MD 02/21/2017 1:24 PM Signed Okay. Referring Provider: BERNARDO ALFARO [[id number]] Allergies As of Date: 02/21/2017 Noted Allergy Reaction CHLORHEXIDINE 05/21/2013 9 - Itching COTTON 10/12/2004 14 - Other: See Comments Comments: eyes become red and headache DARVON (PROPOXYPHENE HCL) 04/20/2008 1 - Mental Status Change FEATHERS 10/12/2004 14 - Other: See Comments Comments: eyes become red and headache GRASS POLLEN 10/08/2012 9 - Itching MORPHINE 04/20/2008 1 - Mental Status Change VINEGAR 10/12/2004 14 - Other: See Comments Comments: eyes become red and headache WOOL 10/12/2004 14 - Other: See Comments Comments: eyes become red and headache Date Reviewed: 12/27/2016 Reviewed by: Margarita Colindres RN - Fully Assessed Reason for Visit: Coumadin/INR [1207] Visit Diagnosis:Chronic deep vein thrombosis (DVT) of proximal vein of both lower extremities (HCC) [I82.5Y3] Order(s):INR (POC) [3972412] Order #: [id number]. #:[id number] Prescriptions as of 02/21/2017 Sig: METFORMIN 500 MG TABLET Take 1 tablet by mouth daily * BLOOD-GLUCOSE METER KIT Glucose Meter of Choice - Kit* BLOOD SUGAR DIAGNOSTIC STRIPS Test blood sugar(s) 2 times d* LANCETS Test blood sugar(s) 2 times d* ESTRADIOL 10 MCG VAGINAL TABL* Use 1 tablet vaginally every * WARFARIN 5 MG TABLET Take 1 tablet by mouth daily * OMEPRAZOLE 20 MG CAPSULE,AILYN* Take 1 capsule by mouth daily* LEVOCETIRIZINE 5 MG TABLET Take 1 tablet by mouth once d* SIMVASTATIN 20 MG TABLET Take 1 tablet by mouth daily * TRAMADOL 50 MG TABLET Take 1 tablet by mouth twice * MELANIE C ORAL Take by mouth. OXYBUTYNIN CHLORIDE ER 10 MG * Take 1 tablet by mouth once d* FLUTICASONE 100 MCG-SALMETERO* Inhale 1 Puff as instructed t* ALBUTEROL SULFATE HFA 90 MCG/* Inhale 2 Puffs as instructed * CALCIUM CARBONATE 500 MG (1,2* Take two(2) tablets twice mike* OMEGA-3 FATTY ACIDS-VITAMIN E* Take 3 pills once daily (?dos* THERAPEUTIC MULTIVITAMIN TABL* Take one(1) tablet daily. Problem List As Of Date 02/21/2017 Noted Resolved Unspecified tinnitus [H93.19] 03/11/2012 Allergic rhinitis, cause unspecified [J30.9] GENERAL OSTEOARTHROSIS [M15.9] Carpal tunnel syndrome [G56.00] 03/11/2012 Dizziness and giddiness [R42] 03/11/2012 Contusion of unspecified part of trunk [S20.20X* 03/11/2012 Acute, but ill-defined, cerebrovascular disease* 03/11/2012 Other specified disorder of bladder [596.8] INVALID FOR*03/11/2012 Urge incontinence [N39.41] INVALID FOR*10/28/2014 Dermatophytosis of nail [B35.1] INVALID FOR*03/11/2012 Asthma [J45.909] BONE AND CARTILAGE DIS NOS [M89.9, M94.9] INVALID FOR* Other pulmonary embolism and infarction [I26.99] 03/11/2012 KNEE JOINT REPLACEMENT STATUS [Z96.659] INVALID FOR* Chronic deep vein thrombosis (DVT) of proximal *INVALID FOR* More... Symptomatic menopausal or female climacteric st*INVALID FOR*03/11/2012 Anxiety state, unspecified [F41.1] INVALID FOR*03/11/2012 Urgency of urination [R39.15] INVALID FOR*03/11/2012 Microscopic hematuria [R31.29] INVALID FOR*03/11/2012 Gross hematuria [R31.0] INVALID FOR*03/11/2012 DVT (deep venous thrombosis) [I82.409] INVALID FOR*03/11/2012 Osteoarthritis of basilar joint of thumb, left *INVALID FOR*03/11/2012 More... Degenerative joint disease of right knee [M17.1*INVALID FOR*03/11/2012 More... Lung nodule [R91.1] INVALID FOR*03/11/2012 More... Overlapping toe [M20.5X9] INVALID FOR*03/11/2012 More... Foot drop, left [M21.372] INVALID FOR* Other hammer toe (acquired) [M20.40] INVALID FOR*10/21/2013 Diarrhea [R19.7] INVALID FOR*03/11/2012 Anemia, unspecified [D64.9] INVALID FOR*03/11/2012 Dermatofibroma of right lower leg [D23.71] INVALID FOR*03/11/2012 Scar condition and fibrosis of skin [L90.5] INVALID FOR*03/11/2012 Other seborrheic keratosis [L82.1] INVALID FOR*03/11/2012 Melanocytic nevi of trunk: back [D22.5] INVALID FOR*10/28/2014 Other acne [L70.8] INVALID FOR*03/11/2012 Granuloma of hair follicle [L98.0] INVALID FOR*03/11/2012 Excoriation [T14.8XXA] INVALID FOR*03/11/2012 Actinic skin damage [L57.8] INVALID FOR*10/28/2014 Colitis, collagenous [K52.831] INVALID FOR*03/11/2012 Scoliosis [M41.9] 03/11/2012 More... Degenerative lumbar spinal stenosis [M48.061] INVALID FOR* More... 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 Mixed incontinence [N39.46] INVALID FOR* More... Spondylolisthesis of lumbar region [M43.16] INVALID FOR*11/08/2016 Gastroesophageal reflux disease [K21.9] INVALID FOR* Postlaminectomy syndrome [M96.1] INVALID FOR* Postmenopausal atrophic vaginitis [N95.2] INVALID FOR* Diabetes mellitus, new onset (HCC) [E11.9] INVALID FOR* Follow-up and Disposition History Recorded Encounter Status:Closed by BERNARDO ALFARO MD on 02/21/17 PROGRESS Observed: 02/21/2017 Status: COMPLETED Source: IDAN[place] 7:42 AM [facility] REPOSITORY HNO ID: [id number] Author: Negra Barajas RN Service: (none) Author Type: (none) Type: Progress Notes Filed: 02/21/2017 7:46 AM Note Text: Patient had INR completed at [facility] Patient's INR is 2.6 Patient is currently taking 5 mg daily Patient's last dose change was 10/25/16 due to high INR at 3.4 Patient has had no medication and no change in diet. Advised patient to continue on same dose and they would only be contacted with different instructions after provider review. Written instructions were given to patient and patient verbalized understanding. Presently, patient has been scheduled for 03/21/17 for INR follow up. OBSOLETE Observed: 02/08/2017 Status: COMPLETED Source: [place]AN[place] 12:00 AM [facility] REPOSITORY Refill (INTMWS) ANNETTE COMBS ([id number]) 1950 F Date Time Provider Department 02/08/17 BERNARDO ALFARO INTMWS During your visit today, we recorded the following information about you: Dianelys Nolan Psr 02/08/2017 8:15 AM Signed Patient has been identified by name and date of : Yes RX INSTRUCTIONS: Patient aware RX will be sent to pharmacy. No need to notify patient. Dianelys Nolan Psr22 Tracy August LPN 02/08/2017 8:53 AM Signed Last appt with pcp 11/08/16. Next with pcp 03/19/17. Kimberly Farah CNP 02/08/2017 9:00 AM Signed The following approved medication requests have been transmitted electronically. Signed Prescriptions Disp Refills metFORMIN (GLUCOPHAGE) 500 mg tablet 30 tablet 1 Sig: Take 1 tablet by mouth daily with breakfast. For diabetes. ALISON: No Authorizing Provider: KIMBERLY FARAH ([place]) Kimberly Farah CNP Allergies As of Date: 02/08/2017 Noted Allergy Reaction CHLORHEXIDINE 05/21/2013 9 - Itching COTTON 10/12/2004 14 - Other: See Comments Comments: eyes become red and headache DARVON (PROPOXYPHENE HCL) 04/20/2008 1 - Mental Status Change FEATHERS 10/12/2004 14 - Other: See Comments Comments: eyes become red and headache GRASS POLLEN 10/08/2012 9 - Itching MORPHINE 04/20/2008 1 - Mental Status Change VINEGAR 10/12/2004 14 - Other: See Comments Comments: eyes become red and headache WOOL 10/12/2004 14 - Other: See Comments Comments: eyes become red and headache Date Reviewed: 12/27/2016 Reviewed by: Margarita Colindres RN - Fully Assessed Reason for Visit: Refill Request [94] Visit Diagnosis:Diabetes mellitus, new onset (HCC) [E11.9] Order(s):metFORMIN (GLUCOPHAGE) 500 mg tabletTake 1 tablet by mouth daily with breakfast. For diabetes.Disp: 30 tabletRfl: 1 Prescriptions as of 02/08/2017 Sig: METFORMIN 500 MG TABLET Take 1 tablet by mouth daily * BLOOD-GLUCOSE METER KIT Glucose Meter of Choice - Kit* BLOOD SUGAR DIAGNOSTIC STRIPS Test blood sugar(s) 2 times d* LANCETS Test blood sugar(s) 2 times d* ESTRADIOL 10 MCG VAGINAL TABL* Use 1 tablet vaginally every * WARFARIN 5 MG TABLET Take 1 tablet by mouth daily * OMEPRAZOLE 20 MG CAPSULE,AILYN* Take 1 capsule by mouth daily* LEVOCETIRIZINE 5 MG TABLET Take 1 tablet by mouth once d* SIMVASTATIN 20 MG TABLET Take 1 tablet by mouth daily * TRAMADOL 50 MG TABLET Take 1 tablet by mouth twice * MELANIE C ORAL Take by mouth. OXYBUTYNIN CHLORIDE ER 10 MG * Take 1 tablet by mouth once d* FLUTICASONE 100 MCG-SALMETERO* Inhale 1 Puff as instructed t* ALBUTEROL SULFATE HFA 90 MCG/* Inhale 2 Puffs as instructed * CALCIUM CARBONATE 500 MG (1,2* Take two(2) tablets twice mike* OMEGA-3 FATTY ACIDS-VITAMIN E* Take 3 pills once daily (?dos* THERAPEUTIC MULTIVITAMIN TABL* Take one(1) tablet daily. Problem List As Of Date 02/08/2017 Noted Resolved Unspecified tinnitus [H93.19] 03/11/2012 Allergic rhinitis, cause unspecified [J30.9] GENERAL OSTEOARTHROSIS [M15.9] Carpal tunnel syndrome [G56.00] 03/11/2012 Dizziness and giddiness [R42] 03/11/2012 Contusion of unspecified part of trunk [S20.20X* 03/11/2012 Acute, but ill-defined, cerebrovascular disease* 03/11/2012 Other specified disorder of bladder [596.8] INVALID FOR*03/11/2012 Urge incontinence [N39.41] INVALID FOR*10/28/2014 Dermatophytosis of nail [B35.1] INVALID FOR*03/11/2012 Asthma [J45.909] BONE AND CARTILAGE DIS NOS [M89.9, M94.9] INVALID FOR* Other pulmonary embolism and infarction [I26.99] 03/11/2012 KNEE JOINT REPLACEMENT STATUS [Z96.659] INVALID FOR* Chronic deep vein thrombosis (DVT) of proximal *INVALID FOR* More... Symptomatic menopausal or female climacteric st*INVALID FOR*03/11/2012 Anxiety state, unspecified [F41.1] INVALID FOR*03/11/2012 Urgency of urination [R39.15] INVALID FOR*03/11/2012 Microscopic hematuria [R31.29] INVALID FOR*03/11/2012 Gross hematuria [R31.0] INVALID FOR*03/11/2012 DVT (deep venous thrombosis) [I82.409] INVALID FOR*03/11/2012 Osteoarthritis of basilar joint of thumb, left *INVALID FOR*03/11/2012 More... Degenerative joint disease of right knee [M17.1*INVALID FOR*03/11/2012 More... Lung nodule [R91.1] INVALID FOR*03/11/2012 More... Overlapping toe [M20.5X9] INVALID FOR*03/11/2012 More... Foot drop, left [M21.372] INVALID FOR* Other hammer toe (acquired) [M20.40] INVALID FOR*10/21/2013 Diarrhea [R19.7] INVALID FOR*03/11/2012 Anemia, unspecified [D64.9] INVALID FOR*03/11/2012 Dermatofibroma of right lower leg [D23.71] INVALID FOR*03/11/2012 Scar condition and fibrosis of skin [L90.5] INVALID FOR*03/11/2012 Other seborrheic keratosis [L82.1] INVALID FOR*03/11/2012 Melanocytic nevi of trunk: back [D22.5] INVALID FOR*10/28/2014 Other acne [L70.8] INVALID FOR*03/11/2012 Granuloma of hair follicle [L98.0] INVALID FOR*03/11/2012 Excoriation [T14.8XXA] INVALID FOR*03/11/2012 Actinic skin damage [L57.8] INVALID FOR*10/28/2014 Colitis, collagenous [K52.831] INVALID FOR*03/11/2012 Scoliosis [M41.9] 03/11/2012 More... Degenerative lumbar spinal stenosis [M48.061] INVALID FOR* More... 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 Mixed incontinence [N39.46] INVALID FOR* More... Spondylolisthesis of lumbar region [M43.16] INVALID FOR*11/08/2016 Gastroesophageal reflux disease [K21.9] INVALID FOR* Postlaminectomy syndrome [M96.1] INVALID FOR* Postmenopausal atrophic vaginitis [N95.2] INVALID FOR* Diabetes mellitus, new onset (HCC) [E11.9] INVALID FOR* Prescriptions ordered this encounter Disp Refills Start End METFORMIN 500 MG TABLET 30 t* 1 02/08/2017 Route: ORAL Sig: Take 1 tablet by mouth daily with breakfast. For diabetes. Medications Discontinued During This Encounter metFORMIN (GLUCOPHAGE) 500 mg tablet 30 t* 2 11/08/2016 02/08/2017 Route: ORAL Sig: Take 1 tablet by mouth daily with breakfast. For diabetes. Disc: Reason for discontinue is not on file. Encounter Status:Closed by KIMBERLY FARAH CNP on 02/08/17 ALLERGIES ALLERGIES DATE TYPE / CODE NAME / CODE REACTION SEVERITY SOURCE Drug oxycodone Unknown Unknown [place] 8 Allergy/[id number]( HCl/[id number](RXN [facility]) ORM) [facility] Repository Drug propoxyphene Unknown Unknown [place] 8 Allergy/992296365( HCl/[id number](RXN [facility]) ORM) Hospital Repository Drug morphine/[id number] Unknown Unknown [place] 8 Allergy/175556233( 5(RXNORM) [facility]) [facility]ository Drug chlorhexidine/F006 Rash Unknown [place] 8 Allergy/753637756( 545676(RXNORM) [facility]) [facility] Repository Miscellaneous cotton Unknown Unknown [place] 8 Allergy/086472707( [facility]) [facility] Repository Miscellaneous feathers Unknown Unknown [place] 8 Allergy/017844205( [facility]) Hospital Repository Miscellaneous grass Unknown Unknown [place] 8 Allergy/383739936( [facility]) Hospital Repository Miscellaneous vinegar Unknown Unknown [place] 8 Allergy/855604805( [facility]) Hospital Repository Miscellaneous wool Unknown Unknown [place] 8 Allergy/921002181( [facility]) Hospital Repository DRUG CHLORHEXIDINE ITCHING [facility] [place] 4 INGREDI/685516321( [facility] SNOMED CT) [place] Repository DRUG GRASS POLLEN ITCHING [place] 3 INGREDI/640827844( [facility] SNOMED CT) [place] Repository DRUG PROPOXYPHENE HCL Mental Chg [place] 9 INGREDI/[id number]( [facility] Main SNOMED CT) [place] Repository DRUG MORPHINE Mental Chg [place] 9 INGREDI/[id number]( [facility] SNOMED CT) [place] Repository Environ/017610386( COTTON OTHER: SEE [place] [address]) [facility] Main [place] Repository DRUG FEATHERS OTHER: SEE [facility] 5 INGREDI/[id number]( [facility] SNOMED CT) [place] Repository Food/[id number](SNO VINEGAR OTHER: SEE [place] [address] [facility] [facility] [facility] [place] [facility] Environ/[id number]( WOOL OTHER: SEE [place] [address]) [facility] [place] [facility] ENCOUNTERS ENCOUNTERS ADMIT/DISCHARGE ACCOUNT ADMITTING ENCOUNTER LOCATION SOURCE NUMBER [facility] 01/30/2018 [id number] [facility] ing:LAB Repository 01/16/2018/01/18/[id number] ing:LAB Repository 01/15/2018 [id number] [facility] ing:CVS Repository 01/01/2018 [id number] [facility] Fior g:H.PMJ Repository 12/18/2017/12/20/[id number] Repository 12/13/2017/12/14/[id number] Repository 11/28/2017 [id number] [facility] ing:LAB.FUTUR Repository E 11/21/2017/11/22/[id number] ing:LAB Repository 11/20/2017 [id number] [facility] Fior g:H.PMJ Repository 2017 [id number] [facility] ing:LABSPEC Repository 11/15/2017 [id number] [facility] ing:RAD Repository 11/15/2017 [id number] [facility] Fior morales:ClintPMJ Repository 10/31/2017/11/01/19 [id number] Ambulatory [address] ing:LAB Repository 10/25/2017/10/26/19 [id number] Ambulatory [address] Repository 10/08/2017/10/09/19 [id number] Ambulatory [address] ing:LAB Repository 10/04/2017/10/08/19 [id number] Ambulatory [address] Repository 10/04/2017/10/05/19 [id number] Ambulatory [address] Repository 10/04/2017/10/09/19 [id number] Ambulatory [address] Repository 10/01/2017/10/03/19 [id number] Manan Gallagher Ambulatory [address] ing:PCURoom: Repository [id number]: 1 10/01/2017 [id number] Manan Gallagher Ambulatory BMSBuilding:Vincent Fraser [facility] Repository 10/01/2017 [id number] Manan Gallagher Ambulatory BMSBuilding:Vincent [facility] Repository 09/13/2017/09/14/19 [id number] Ambulatory [address] Repository 09/13/2017/09/14/19 [id number] Ambulatory [address] Repository 08/30/2017/08/31/19 [id number] Ambulatory [address] Repository 08/29/2017/08/30/19 [id number] Ambulatory [address] Repository 08/29/2017 [id number] Ambulatory [facility] ing:LAB Repository 08/22/2017/08/28/19 [id number] Ambulatory [address] Repository 08/19/2017/08/20/19 [id number] Ambulatory [address] Repository 08/19/2017 [id number] Ambulatory [facility] ing:LAB Repository 08/15/2017 [id number] Ambulatory [facility] ing:LAB.FUTUR Repository E 08/14/2017/08/15/19 [id number] [facility] [place] Rep[facility] 08/12/2017/08/17/19 [id number] [facility] [place] Rep[facility] 08/06/2017/08/07/19 [id number] [facility] [place] [facility] 08/06/2017/08/08/19 [id number] [facility] [place] Rep[facility] 08/01/2017/08/03/19 [id number] [facility] [place] [facility] 07/22/2017/07/24/19 [id number] [facility] [place] Rep[facility] 07/18/2017/07/20/19 [id number] [facility] [place] Rep[facility] 07/16/2017/07/17/19 [id number] [facility] [place] Rep[facility] 07/12/2017/07/13/19 [id number] [facility] [place] Rep[facility] 07/12/2017/07/17/19 [id number] [facility] [place] Rep[facility] 07/04/2017/07/06/19 [id number] [facility] [place] Rep[facility] 06/06/2017/06/08/19 [id number] [facility] [place] Rep[facility] 05/23/2017/05/25/19 [id number] [facility] [place] Rep[facility] 05/09/2017/05/10/19 [id number] [facility] [place] Rep[facility] 05/09/2017/05/10/19 [id number] [facility] [place] Rep[facility] 04/15/2017/04/15/19 [id number] [facility] [place] Rep[facility] 04/11/2017/04/16/19 [id number] [facility] [place] [facility] 04/11/2017/04/12/19 [id number] [facility] [place] Rep[facility] 04/10/2017/04/12/19 [id number] [facility] [place] Rep[facility] 03/31/2017/03/31/19 [id number] [facility] [place] Rep[facility] 03/28/2017/03/29/19 [id number] [facility] [place] Rep[facility] 03/26/2017/03/26/19 [id number] Ambulatory [place] [address] ing:[place] Repository 03/14/2017/03/14/19 [id number] Ambulatory [address] Repository 02/21/2017/02/22/19 [id number] Ambulatory [address] Repository PAYERS PAYERS ENCOUNTER GUARANTOR PAYER SUBSCRIBER SOURCE 01/30/2018 [address] [place] Primary ANNETTE Marrufo [place] [id number] Insurance:MARTA BOLEYDOB: [facility] [id number] County Medical Centericy Number: Repository [id number]: 330 [id number] [phone] () e Date:7321-02-55[address] [address]RY: 01/30/2018 Secondary NOT GIVENUNK [place] Insurance:SELF PAY [facility] Number: Effective Repository Date:2018-01-20 01/16/2018 [address] [place] Primary ANNETTE Marrufo [place] [id number] Insurance:MARTA BOLEYDOB: [facility] [id number] Regional MedCenterOPolicy Number: Repository [id number]: 330 [id number] [phone] () e Date:1704-49-99UQ [address] [address]YE: 01/16/2018 Secondary NOT GIVENUNK [place] Insurance:SELF PAY [facility] Number: Effective Repository Date:2017-12-19 01/15/2018 [address] [place] Primary ANNETTE Marrufo [place] [id number] Insurance:MARTA BOLEYDOB: [facility] [id number] County Medical Centericy Number: Repository [id number]: 330 [id number] [phone] () e Date:2478-87-59NR [address] [address]UX: 01/15/2018 Secondary NOT GIVENUNK [place] Insurance:SELF PAY [facility] Number: Effective Repository Date:2018-01-06 01/01/2018 ANNETTE K Primary ANNETTE Yaron [facility] [id number] Insurance:[facility] Repository [place], [place] HMOPolicy Number: [id number]: (330) [id number] [phone] () e Date:[address], [place] [address]XY: 11/28/2017 [address] [place] Primary ANNETTE Marrufo [place] [id number] Insurance:MARTA BOLEYDOB: [facility] [id number] Regional MedCenterOPolicy Number: Repository [id number]: (330) [id number] [phone] () e Date:6664-46-87[address] [address]ST: 11/28/2017 Secondary NOT GIVENUNK [place] Insurance:SELF PAY [facility] Number: Effective Repository Date:2017-11-18 11/21/2017 [address] [place] Primary ANNETTE Marrufo [place] [id number] Insurance:MARTA BOLEYDOB: [facility] [id number] Hospital Number: Repository [id number]: [phone]) [id number] [phone] () e Date:9985-26-84BP [address] [address]IN: 11/21/2017 Secondary NOT GIVENUNK [place] Insurance:SELF PAY [facility] Number: Effective Repository Date:2017-11-20 11/20/2017 ANNETTE K Primary ANNETTE Yaron [facility]re[facility] [id number] Insurance:[facility] Center[facility] Number: [id number]: (330) [id number] [phone] () e Date:[address], [place] [address]NQ: 2017 [address] [place] Primary ANNETTE Yaron [place] [id number] Insurance:MARTA BOLEYDOB: [facility] [id number] Regional MedCenterOPoljackson county regional health center Number: Repository [id number]: (330) [id number] [phone] () e Date:6471-52-54MY [address] [address]FX: 2017 Secondary NOT GIVENUNK [place] Insurance:SELF PAY [facility] Number: Effective Repository Date:2017 11/15/2017 [address] [place] Primary ANNETTE K [place] [id number] Insurance:MARTA BOLEYDOB: [facility] [id number] Regional MedCenterOPolicy Number: Repository [id number]: (330) [id number] [phone] () e Date:4508-96-56EP [address] [address]JX: 11/15/2017 Secondary NOT GIVENUNK [place] Insurance:SELF PAY [facility] Number: Effective Repository Date:2017-11-15 11/15/2017 ANNETTE K Primary ANNETTE K [facility] [id number] Insurance:[facility] Number: [id number]: (330) [id number] [phone] (HP) e Date:[address], [place] [address]UE: 10/31/2017 [address] [place] Primary ANNETTE K [place] [id number] Insurance:MARTA BOLEYDOB: [facility] [id number] Regional MedCenterOPoljackson county regional health center Number: Repository [id number]: [phone]) [id number] [phone] (HP) e Date:9892-80-25BI [address] [address]VN: 10/31/2017 Secondary NOT GIVENUNK [place] Insurance:SELF PAY [facility] Number: Effective Repository Date:2017-10-22 10/08/2017 [address] [place] Primary ANNETTE Marrufo [place] [id number] Insurance:MARTA BOLEYDOB: [facility] [id number] County Medical Centericy Number: Repository [id number]: 330 [id number] [phone] () e Date:5040-01-52BZ [address] [address]ZL: 10/08/2017 Secondary NOT GIVENUNK [place] Insurance:SELF PAY [facility] Number: Effective Repository Date:2017-09-19 10/01/2017 [address] [place] Primary ANNETTE Marrufo Bria [id number] Insurance:MARTA BOLEYDOB: [facility] [id number] Regional MedCenterOPolicy Number: Repository [id number]: 330 [id number] [phone] () e Date:2543-81-98TV [address] [address]IC: 10/01/2017 Secondary NOT GIVENUNK [place] Insurance:SELF PAY [facility] Number: Effective Repository Date:2017-10-01 10/01/2017 [address] [place] Primary ANNETTE Marrufo Bria [id number] Insurance:MARTA BOLEYDOB: [facility] [id number] County Medical Centericy Number: Repository [id number]: ([phone] [id number] [phone] () e Date:5075-27-65QF [address] [address]KL: 10/01/2017 Secondary NOT GIVENUNK [place] Insurance:SELF PAY [facility] Number: Effective Repository Date:2017-10-01 10/01/2017 [address] [place] Primary ANNETTE Marrufo [place] [id number] Insurance:MARTA BOLEYDOB: [facility] [id number] County Medical Centeric Number: Repository [id number]: 330) [id number] [phone] () e Date:0706-22-09YC [address], [place] [address]SU: 10/01/2017 Secondary NOT GIVENUNK [place] Insurance:SELF PAY [facility] Number: Effective Repository Date:2017-10-01 08/29/2017 [address] [place] Primary ANNETTE Marrufo Bria [id number] Insurance:MARTA BOLEYDOB: [facility] [id number] Eye Institutey Number: Repository [id number]: (330) [id number] [phone] () e Date:4702-79-78CT [address], [place] [address]YN: 08/29/2017 Secondary NOT GIVENUNK [place] Insurance:SELF PAY [facility] Number: Effective Repository Date:2017-08-29 08/19/2017 [address] [place] Primary ANNETTE Marrufo [place] [id number] Insurance:MARTA BOLEYDOB: [facility] 1356-08-16RAUHennepin County Medical Centericy Number: Repository [id number]: (330) [id number] [phone] () e Date:1215-54-40RQ [address], [place] [address]ZZ: 08/19/2017 Secondary NOT GIVENUNK [place] Insurance:SELF PAY [facility] Number: Effective Repository Date:2017-08-19 08/15/2017 [address] [place] Primary ANNETTE Marrufo [place] [id number] Insurance:MARTA BOLEYDOB: [facility] [id number] Regional MedCenterOPolicy Number: Repository [id number]: (330) [id number] [phone] () e Date:5751-80-53CK [address], [place] [address]GC: 08/15/2017 Secondary NOT GIVENUNK [place] Insurance:SELF PAY [facility] Number: Effective Repository Date:2017-08-03 03/26/2017 Dot [place] Primary ANNETTE Yaron [id number] Insurance:MARTA BYNUM: [facility] HEALTH PLAN [id number] Regional Medical CenterOPolicy Number: Repository [id number]: [id number] [phone] e Date:8164-36-71YL 2 (HP) [address] [address]IL: 03/26/2017 Secondary NOT GIVENRENE [place] Insurance:SELF PAY [facility] Number: Effective Repository Date:2017-02-18
== END ==
PROVIDERS: Family Provider Internal Medicine; PCP Internal Medicine; Referring Provider Podiatrist Foot & Ankle Surgery; Visit Provider Podiatrist Foot & Ankle Surgery
DX: I70.223 Atherosclerosis of native arteries of extremities with rest pain, bilateral legs (principal)
CPT/HCPCS: 93923

== ENCOUNTER 2018-01-16 06:26 | Outpatient (RCR) | payer MEDICARE, SELFPAY ==
[2017-12-30 11:26] LABS: International Normalized Ratio 2.6; Prothrombin Time (Protime)PT. 27.8 SECONDS (11.7-14.9)
[2018-01-16 07:20] LABS: International Normalized Ratio 2.4; Prothrombin Time (Protime)PT. 26.3 SECONDS (11.7-14.9)
== END 2018-01-17 09:35 | disposition home or self-care (01) ==
LOC: LAB 06:26
PROVIDERS: Family Provider Internal Medicine; PCP Internal Medicine; Referring Provider Internal Medicine; Visit Provider Internal Medicine
DX: I82.5Y3 Chronic embolism and thrombosis of unspecified deep veins of proximal lower extremity, bilateral (principal)
CPT/HCPCS: 36415; 85610

== ENCOUNTER 2018-02-06 06:28 | Outpatient (RCR) | payer MEDICARE, SELFPAY ==
[2018-02-06 08:42] LABS: International Normalized Ratio 2.2; Prothrombin Time (Protime)PT. 24.9 SECONDS (11.7-14.9)
== END 2018-02-06 07:00 | disposition home or self-care (01) ==
LOC: LAB 06:28
PROVIDERS: Family Provider Internal Medicine; PCP Internal Medicine; Referring Provider Internal Medicine; Visit Provider Internal Medicine
DX: I82.5Y3 Chronic embolism and thrombosis of unspecified deep veins of proximal lower extremity, bilateral (principal)
CPT/HCPCS: 36415; 85610

== ENCOUNTER 2018-03-13 13:23 | Emergency (ER) | payer MEDICARE, SELFPAY ==
[2018-03-13 13:25] VITALS: BP 125/84; PULSE 101; RESP 19; TEMP 36.4; O2SAT 94; BMI 27.6
--- NOTE | 2018-03-13 14:01 | EKG12_ITS ---
Test Reason : PALPS Blood Pressure : / mmHG Vent. Rate : 096 BPM Atrial Rate : 096 BPM P-R Int : 162 ms QRS Dur : 080 ms QT Int : 356 ms P-R-T Axes : 029 014 051 degrees QTc Int : 449 ms Normal sinus rhythm Normal ECG Confirmed by SPARKLE TORRES, CHRISTIAN ([id number]), loan expeditor EMMA MERCER ([id number]) on 03/18/2018 2:50:07 PM Referred By: Bernardo Alfaro Confirmed By:CHRISTIAN VILLAGRAN MD
--- NOTE | 2018-03-13 14:01 | RAD_ITS ---
STUDY: X-RAY CHEST REASON FOR EXAM: Female, 67 years old. Chest pain. Tachycardia. TECHNIQUE: Single AP portable view of the chest. COMPARISON: Comparison is made with prior study dated September 23, 2010. FINDINGS: EKG electrodes are seen. The lungs are clear and expanded. There is no demonstrated pleural abnormality. Normal size heart. Normal mediastinum and beverly. Normal visualized pulmonary arteries. There is atherosclerotic calcification of the aortic arch with tortuosity. There are diffuse degenerative changes of the visualized thoracic spine. Normal visualized ribs, clavicles, and shoulders. There is no demonstrated abnormality of the visualized soft tissue structures of the upper abdomen. RAD/Chest 1 View (Portable) IMPRESSION: No acute abnormality is seen. Electronically Signed: Irving Graham MD at 14:25 EST , Service support ,
[2018-03-13 14:22] LABS: Absolute Lymphocyte Count 2.32 X10^3/ul (0.83-4.51); Absolute Neutrophil Count 3.1 X10^3/uL (2.0-7.7); Basophil# 0.02 X10^3/uL; Basophil% 0.3 % (0-1); Eosinophil# 0.21 X10^3/uL; Eosinophils% 3.4 % (0-5); Hematocrit 37.2 % (37-47); Hemoglobin 11.9 g/dl (12.0-15.0); Lymphocyte # 2.32 X10^3/ul (4.0); Lymphocyte % 37.3 % (19-41); Mean Corpuscular Hgb 29.5 pg (27.0-32.0); Mean Corpuscular Volume 92.1 fL (81-99); Mean Platelet Vol. 8.8 fl (6.2-12.0); Monocyte# 0.51 X10^3/uL; Monocyte% 8.2 % (0-10); Neutrophil # 3.14 X10^3/uL (2.7-7.7); Neutrophil % 50.5 % (47-70); Platelet Count 184 K/mm3 (150-450); RBC Distribution Width CV 13.3 % (11.6-14.6); RBC Distribution Width SD 44.7 fl (35.1-43.9); Red Blood Count 4.04 M/mm3 (4.2-5.4); White Blood Count 6.2 K/mm3 (4.4-11.0)
[2018-03-13 14:24] LABS: POSITIVE COUNT NO; POSITIVE DIFFERENTIAL NO; POSITIVE MORPHOLOGY NO
[2018-03-13 14:36] LABS: Anion Gap 8 (5-15); BUN 33 mg/dL (7-18); BUN/Creat Ratio 24.8 RATIO (10-20); Calcium,Total 9.2 mg/dL (8.5-10.1); Chloride 108 mmol/L (98-107); Creatinine, Serum 1.33 mg/dL (0.55-1.02); EST Glomerular Filtration Rate 42 mL/min (>60); Est Glom Filt Rate - Afr Amer 51 mL/min (>60); Estimated Creatinine Clearance 38.42 ml/min; Glucose 136 mg/dL (74-106); Potassium 4.6 mmol/L (3.5-5.1); Sodium Level 140 mmol/L (136-145)
[2018-03-13] MEDS: Aspirin 81 MG TAB.CHEW 324 MG PO (14:36)
--- NOTE | 2018-03-13 14:51 | ED.VISSUMM ---
- ER Visit Summary Date of Service: 03/13/18 Chief Complaint: [] Found to have A. fib during routine ophthalmologic procedure History of Present Illness: The patient is a 67 F [] she denies any past history of diabetes is well-controlled she indicates that basically she was scheduled to have what sounds like a cataract procedure by ophthalmology today during that workup an EKG was done that showed A. fib but she was sent to the emergency department. She has no history of A. fib, she has had no fever no cough no chest pain no shortness of breath no orthopnea or PND she denies any cardiovascular disease or symptoms again her diabetes is well controlled Physical Examination: [] She is currently in a sinus rhythm rate of about 90, blood pressure 130/80 with no complaints General, no distress resting comfortably HEENT is generally unremarkable The neck is supple no adenopathy Cardiovascular, regular rate and rhythm Lungs, clear bilateral Abdomen, soft nontender Extremities, no clubbing cyanosis or edema Neurologic, awake alert answering questions appropriately moving all 4 extremities Test Results: [] Emergency Department Course and Treatment: [] Sinus rhythm rate 96 nothing acute, chest x-ray all labs are generally unremarkable except for creatinine 1.3 no old labs available, patient reports is been n.p.o. all day we will provide fluid bolus, she indicates she is feeling fine she wants to go home she understands need to follow with cardiology, I did speak with Dr. Orr sports information director for cardiology discussed case with him further instructions to start the patient on one baby aspirin a day, outpatient cardiac rehabilitation program director, follow-up in the office in the next few days per that discussion and she will follow-up with the office and return for change in symptoms Treatment Plan: [] Is not when I discussed with the patient the potential follow-up options of medications including potential use of blood thinners she indicated that she is on Coumadin related to a prior DVT in her left leg she did not inform me of that prior history and have asked her to take no more than 1 baby aspirin a day until she follows up with Dr. Orr, in addition were trying to arrange for her to have the 30-day event monitor applied while she is in the ED Disposition: [] Home stable Impression: [] Intermittent atrial fibrillation history of diabetes This note was generated with NearWooation software. It may contain incorrect words, spelling, and punctuation that were not noted in review of the chart prior to signing ED Disposition - Plan for ED Patient: Chief Complaint: Palpitations Instructions: ED Paroxysmal Atrial Flutter, ED Palpitations Referrals: New Orr MD [STAFF PHYSICIAN] - Bernardo Alfaro MD [Primary Care Provider] - Additional Instructions: Please take 2 baby aspirin every day, make sure you get the cardiac rehabilitation program director attached call Dr. Orr for follow-up in the next few days
--- NOTE | 2018-03-13 15:12 | DCINST.ED_ITS ---
ED Disposition - Plan for ED Patient: Chief Complaint: Palpitations Instructions: ED Palpitations, ED Paroxysmal Atrial Flutter Referrals: Bernardo Alfaro MD [Primary Care Provider] - New Orr MD [STAFF PHYSICIAN] - Additional Instructions: Please take 2 baby aspirin every day, make sure you get the cardiac technician attached call Dr. Orr for follow-up in the next few days
[2018-03-13 15:30] VITALS: BP 102/71; PULSE 66; RESP 12; O2SAT 94
== END 2018-03-13 15:55 | disposition home or self-care (01) ==
PROVIDERS: Emergency Provider Emergency Medicine; Family Provider Internal Medicine; PCP Internal Medicine
DX: I48.91 Unspecified atrial fibrillation (principal); E11.9 Type 2 diabetes mellitus without complications; Z86.718 Personal history of other venous thrombosis and embolism; Z79.01 Long term (current) use of anticoagulants
CPT/HCPCS: 71045; 80048; 84484; 85025; 93005; 99284; J7040; A4216

== ENCOUNTER 2018-03-20 06:26 | Outpatient (RCR) | payer MEDICARE, SELFPAY ==
[2018-03-20 07:36] LABS: International Normalized Ratio 1.8; Prothrombin Time (Protime)PT. 20.8 SECONDS (11.7-14.9)
--- OUTSIDE RECORDS SUMMARY | 2018-05-10 18:54 | XMS RPT_ITS ---
:1950 Author Organization OHIP Support Name Relationship Address Phone DOT COMBS Unavailable [address] [place] [address] + [place] [address] R Unavailable Unavailable Unavailable LAURYN, DOT Unavailable [address] [place] [address] + [place] [address] R Unavailable Unavailable Unavailable LAURYN, DOT Unavailable [address] [place] [address] + [place] [address] R Unavailable Unavailable Unavailable LAURYN, DOT Unavailable [address] [place] [address] + [place] [address] R Unavailable Unavailable Unavailable LAURYN, DOT Unavailable [address] [place] [address] + [place] [address] R Unavailable Unavailable Unavailable LAURYN, DOT Unavailable [address] [place] [address] + [place] [address] R Unavailable Unavailable Unavailable LAURYN, DOT Unavailable [address] [place] [address] DR + [place] [address] R Unavailable Unavailable Unavailable LAURYN, DOT Unavailable [address] [place] [address] DR + [place] [address] R Unavailable Unavailable Unavailable LAURYN, DOT Unavailable [address] [place] [address] DR + [place] [address] R Unavailable Unavailable Unavailable LAURYN, DOT Unavailable [address] [place] [address] DR + [place] [address] R Unavailable Unavailable Unavailable LAURYN, DOT Unavailable [address] [place] [address] DR + [place] [address] R Unavailable Unavailable Unavailable LAURYN, DOT Unavailable [address] [place] [address] DR + [place] [address] R Unavailable Unavailable Unavailable LAURYN, DOT Unavailable [address] [place] [address] DR + [place] [address] R Unavailable Unavailable Unavailable LAURYN, DOT Unavailable [address] [place] [address] DR + [place] [address] R Unavailable Unavailable Unavailable LAURYN, DOT Unavailable [address] [facility] + [place] [address] R Unavailable Unavailable Unavailable LAURYN DOT Unavailable [address] + [place] [address] R Unavailable Unavailable Unavailable DOT COMBS Unavailable [address] + [place] [address] R Unavailable Unavailable Unavailable LAURYN DOT Unavailable [address] + [place] [address] R Unavailable Unavailable Unavailable LAURYNDOT Unavailable [address] [phone] [place] [address] R Unavailable Unavailable Unavailable Care Team Providers Name Role Phone Bernardo Alfaro Attending Unavailable Bernardo Alfaro Referring Unavailable Alfaro, Bernardo Primary Care Unavailable Alfaro, Bernardo Attending Unavailable Alfaro, Bernardo Referring Unavailable Alfaro, Bernardo Primary Care Unavailable Alfaro, Bernardo Attending Unavailable Alfaro, Bernardo Referring Unavailable Alfaro, Bernardo Primary Care Unavailable AlfaroBernardo wilson Attending Unavailable Alfaro, Bernardo Referring Unavailable Alfaro, Bernardo Primary Care Unavailable Alfaro, Bernardo Attending Unavailable Alfaro, Bernardo Referring Unavailable Alfaro, Bernardo Primary Care Unavailable AlfaroBernardo wilson Attending Unavailable AlfaroBernardo Referring Unavailable Alfaro, Bernardo Primary Care Unavailable Alfaro, Bernardo Primary Care Unavailable Jopperi, Manan Admitting Unavailable Paintsil, [place] Attending Unavailable Alfaro, Bernardo Primary Care Unavailable Kirill Last Attending Unavailable [place] Orr Attending Unavailable [place] Referring Unavailable Alfaro, Bernardo Primary Care Unavailable Jopperi, Manan Admitting Unavailable Jopperi, Manan Attending Unavailable Alfaro, Bernardo Primary Care Unavailable Jopperi, Manan Consulting Unavailable Jopperi, Manan Admitting Unavailable Paintsil, [place] Attending Unavailable Alfaro, Bernardo Primary Care Unavailable Paintsil, [place] Consulting Unavailable Alfaro, Bernardo Attending Unavailable Alfaro, Ebrnardo Referring Unavailable Alfaro, Bernardo Primary Care Unavailable RANJIT VERDIN Attending Unavailable RANJIT VERDIN Referring Unavailable Alfaro, Bernardo Primary Care Unavailable AlfaroBernardo Attending Unavailable Alfaro, Bernardo Primary Care Unavailable GildardoBrianne Attending Unavailable GildardoBrianne Referring Unavailable Alfaro, Bernardo Primary Care Unavailable Alfaro, Bernardo Attending Unavailable Alfaro, Bernardo Referring Unavailable Alfaro, Bernardo Primary Care Unavailable Alfaro, Bernardo Attending Unavailable Alfaro, Bernardo Referring Unavailable Alfaro, Bernardo Primary Care Unavailable MycdavidkJoyce Attending Unavailable MycdavidkJoyce Referring Unavailable Alfaro, Bernardo Primary Care Unavailable Alfaro, Bernardo Attending Unavailable Alfaro, Bernardo Referring Unavailable Alfaro, Bernardo Primary Care Unavailable ALFARO, TROY Referring Unavailable ALFARO, BERNARDO Cohn Attending Unavailable ALFARO, TROY Referring Unavailable ALFARO, TROY Referring Unavailable ARGELIA THOMSON Referring Unavailable ALFARO, BERNARDO Cohn Referring Unavailable OLDER, KIMBERLY (DEHYDRATOR) Referring Unavailable ALFARO, TROY Referring Unavailable ALFARO, BERNARDO Cohn Referring Unavailable ALFARO, BERNARDO Cohn Referring Unavailable ALFARO, BERNARDO Cohn Attending Unavailable ALFARO, BERNARDO Cohn Referring Unavailable ALFARO, BERNARDO Cohn Referring Unavailable [facility], KIMBERLY ([facility]) Attending Unavailable OLDER, KIMBERLY ([facility]) Attending Unavailable OLDER, KIMBERLY ([facility]) Referring Unavailable ALFARO, BERNARDO Cohn Referring Unavailable OLDER, KIMBERLY (DEHYDRATOR) Attending Unavailable OLDER, KIMBERLY (DEHYDRATOR) Referring Unavailable TESTRAKE, ALEXANDRU Attending Unavailable ALFARO, BERNARDO Cohn Referring Unavailable TESTRAKE, ALEXANDRU Referring Unavailable TESTRAKE, ALEXANDRU Attending Unavailable TESTRAKE, ALEXANDRU Referring Unavailable ALFARO, BERNARDO Cohn Referring Unavailable TESTRAKE, ALEXANDRU Attending Unavailable TESTRAKE, ALEXANDRU Referring Unavailable TESTRAKE, ALEXANDRU Attending Unavailable TESTRAKE, ALEXANDRU Referring Unavailable TESTRAKE, ALEXANDRU Referring Unavailable TESTRAKE, ALEXANDRU Attending Unavailable TESTRAKE, ALEXANDRU Referring Unavailable TESTRAKE, ALEXANDRU Referring Unavailable OLDER, KIMBERLY ([facility]) Attending Unavailable ARGELIA THOMSON Attending Unavailable ALFARO, BERNARDO Cohn Referring Unavailable ALFARO, BERNARDO Cohn Attending Unavailable ALFARO, BERNARDO Cohn Referring Unavailable Pete Roman Attending Unavailable Alfaro, Troy. Primary Care Unavailable Pete Roman Attending Unavailable Alfaro, Troy. 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 / Repository E11.610(ICD-10) 09/13/2017 Active Dislocation of NA Active [facility] tarsometatarsal [facility] joint of left foot, [place] subsequent encounter Repository / S93.325D(ICD-10) 10/21/2013 Active Other chronic NA Active [facility] cystitis without [facility] hematuria / [place] N30.20(ICD-10) Repository 08/19/2017 Active Unspecified NA Active [facility] dislocation of left [facility] foot, initial [place] encounter / Repository S93.305A(ICD-10) 04/28/2015 Active 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 [place] veins of proximal Repository lower extremity, bilateral / I82.5Y3(ICD-10) 08/06/2017 Active Unspecified injury OLDER, KIMBERLY Active [facility] of left foot, (DEHYDRATOR) [facility] initial encounter / [place] S99.922A(ICD-10) Repository 08/06/2017 Active Other disturbances OLDER, KIMBERLY Active [facility] of skin sensation / (DEHYDRATOR) [facility] R20.8(ICD-10) [place] Repository 07/12/2017 Active Chronic kidney NA Active [facility] disease, stage 3 [facility] (moderate) / [place] N18.3(ICD-10) Repository 07/12/2017 Active Type 2 diabetes NA Active [facility] mellitus with [facility] unspecified [place] complications / Repository E11.8(ICD-10) 05/09/2017 Active Disorder of kidney NA Active [facility] and ureter, [facility] unspecified / [place] N28.9(ICD-10) Repository 04/15/2017 Active Encounter for NA Active [facility] screening mammogram [facility] for malignant [place] neoplasm of breast / Repository Z12.31(ICD-10) 04/10/2017 Active Other symptoms and NA Active [facility] signs involving [facility] cognitive functions [place] and awareness / Repository R41.89(ICD-10) 11/08/2016 Active Type 2 diabetes NA Active [facility] mellitus without [facility] complications / [place] E11.9(ICD-10) Repository 04/11/2017 Active 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 without Hospital complications / Repository E11.9(ICD-10) PROCEDURES PROCEDURES No Procedure Records FoundRESULTS RESULTS EMERGENCY DEPARTMENT Observed: 03/13/2018 Status: F Source: [place] SUMMARY 4:29 PM [facility] REPOSITORY [facility] Medical Records Department [address] [place] [address] Emergency Department Summary 03/13/18 1451 MR#: [id number] Acct: [id number] Name: ANNETTE COMBS Rep #: [id number] : 1950 67 From: Kirill Last MD PCP: Bernardo Alfaro MD Status: DEP ER - ER Visit Summary Date of Service: 03/13/18 Chief Complaint: [] Found to have A. fib during routine ophthalmologic procedure History of Present Illness: The patient is a 67 F [] she denies any past history of diabetes is well-controlled she indicates that basically she was scheduled to have what sounds like a cataract procedure by ophthalmology today during that workup an EKG was done that showed A. fib but she was sent to the emergency department. She has no history of A. fib, she has had no fever no cough no chest pain no shortness of breath no orthopnea or PND she denies any cardiovascular disease or symptoms again her diabetes is well controlled Physical Examination: [] She is currently in a sinus rhythm rate of about 90, blood pressure 130/80 with no complaints General, no distress resting comfortably HEENT is generally unremarkable The neck is supple no adenopathy Cardiovascular, regular rate and rhythm Lungs, clear bilateral Abdomen, soft nontender Extremities, no clubbing cyanosis or edema Neurologic, awake alert answering questions appropriately moving all 4 extremities Test Results: [] Emergency Department Course and Treatment: [] Sinus rhythm rate 96 nothing acute, chest x-ray all labs are generally unremarkable except for creatinine 1.3 no old labs available, patient reports is been n.p.o. all day we will provide fluid bolus, she indicates she is feeling fine she wants to go home she understands need to follow with cardiology, I did speak with Dr. 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 Orr, in addition were trying to arrange for her to have the 30-day event monitor applied while she is in the ED Disposition: [] Home stable Impression: [] Intermittent atrial fibrillation history of diabetes This note was generated with [employer] dictation software. It may contain incorrect words, spelling, and punctuation that were not noted in review of the chart prior to signing ED Disposition - Plan for ED Patient: Chief Complaint: Palpitations Instructions: ED Paroxysmal Atrial Flutter, ED Palpitations Referrals: New Orr MD [STAFF PHYSICIAN] - Bernardo Alfaro MD [Primary Care Provider] - Additional Instructions: Please take 2 baby aspirin every day, make sure you get the lapping machine set up operator attached call Dr. Orr for follow-up in the next few days What to do if you have Problems For any increased pain, shortness of breath, bleeding, nausea or vomiting, chest pain, or any unexpected problems, contact your Primary Care Provider. Call [facility] ([phone]) or report to the closest Emergency Room. Call 911 if necessary. 03/13/18 1629 <Electronically signed by Kirill Last MD> Date Kirill Last MD Cosigner Signature (If Indicated): Date CC: Bernardo Alfaro MD DISCHARGE INSTRUCTION Observed: 03/13/2018 Status: F Source: [place] 3:12 PM [facility] REPOSITORY [facility] Medical Records Department [address] [place] [address] [place] [address] Discharge Instruction 03/13/181510 MR#: [id number] Acct: [id number] Name: ANNETTE COMBS Rep #: [id number] : 1950 67 From: Kirill Last MD PCP: Bernardo Alfaro MD Status: REG ER ED Disposition - Plan for ED Patient: Chief Complaint: Palpitations Instructions: ED Palpitations, ED Paroxysmal Atrial Flutter Referrals: Bernardo Alfaro MD [Primary Care Provider] - New Orr MD [STAFF PHYSICIAN] - Additional Instructions: Please take 2 baby aspirin every day, make sure you get the lapping machine set up operator attached call Dr. Orr for follow-up in the next few days What to do if you have Problems For any increased pain, shortness of breath, bleeding, nausea or vomiting, chest pain, or any unexpected problems, contact your Primary Care Provider. Call [facility] ([phone]) or report to the closest Emergency Room. Call 911 if necessary. 03/13/18 1512 <Electronically signed by Kirill Last MD> Date Kirill Last MD Cosigner Signature (If Indicated): Date CC: Bernardo Alfaro MD CBC W/DIFF, AUTOMATED Collected: 03/13/2018 Status: F Source: [place] 2:12 PM [facility] REPOSITORY TYPE CODE TESTS RESULT OUT OF RANGE REFERENCE UNITS LAB L100.1000 4.4-11.0 K/mm3 Normal WBC 6.2 LAB L100.1200 4.2-5.4 M/mm3 Low RBC 4.04 LAB L100.1300 12.0-15.0 g/dl Low HGB 11.9 LAB L100.1400 37-47 % Normal HCT 37.2 LAB L100.1500 81-99 fL Normal MCV 92.1 LAB L100.1600 27.0-32.0 pg Normal MCH 29.5 LAB L100.1700 32-36 g/gl Normal MCHC 32.0 LAB L100.1810 11.6-14.6 % Normal RDW CV 13.3 LAB L100.1820 35.1-43.9 fl High RDW SD 44.7 LAB L100.1900 150-450 K/mm3 Normal PLT 184 LAB L100.2000 6.2-12.0 fl Normal MPV 8.8 LAB L100.2100 47-70 % Normal NEUT% 50.5 LAB L100.2200 19-41 % Normal LY% 37.3 LAB L100.2300 0-10 % Normal MONO% 8.2 LAB L100.2400 0-5 % Normal EO% 3.4 LAB L100.2500 0-1 % Normal BASO% 0.3 LAB L100.2550 0.0-0.9 % Normal IM GRAN % 0.300 Result Comment: IG% - Immature Granulocytes (promyelocytes, myelocytes and metamyelocytes) > 1% indicates that a LEFT SHIFT is Present. LAB L100.2620 2.0-7.7 X10 3/uL Normal Absolute Neut 3.1 LAB L100.2720 0.83-4.51 X10 3/ul Normal Absolute Lymph 2.32 Performed By: #### L100.0100 #### [facility] [address] [place], [address] BASIC METABOLIC Collected: 03/13/2018 Status: F Source: [place] PROFILE (BMP) 2:12 PM [facility] REPOSITORY TYPE CODE TESTS RESULT OUT OF RANGE REFERENCE UNITS LAB L501.0100 74-106 mg/dL High GLU 136 Result Comment: Fasting Glucose result greater than or equal to 126 mg/dL suggests DIABETES MELLITUS per A.D.A. criteria. Please note revised GLUCOSE reference range effective 2017. LAB L501.1000 7-18 mg/dL High BUN 33 LAB L501.1100 0.55-1.02 mg/dL High CREAT,SERUM 1.33 Result Comment: The validity of the calculated GFR AND GFRAA in patients over 70 years has not been determined. Clinical correlation is essential. LAB L501.1110 >60 mL/min Low EST GFR 42 Result Comment: Non- GFR Calc LAB L501.1115 >60 mL/min Low EST GFR - AA 51 Result Comment: GFR Calc LAB L501.1255 ml/min Normal Estimated CRCL 38.42 LAB L501.1300 10-20 RATIO High BUN/CRE 24.8 LAB L501.2200 8.5-10 mg/dL Normal .1 CA 9.2 LAB L501.5300 136-14 mmol/L Normal 5 NA 140 LAB L501.5600 3.5-5. mmol/L Normal 1 K 4.6 LAB L501.5900 98-107 mmol/L High CL 108 LAB L501.6100 21.0-3 mmol/L Normal 2.0 CO2 24.0 LAB L501.6200 5-15 Normal GAP 8 Performed By: #### L500.2500, L501.4010 #### [facility] [address] [place], [address] TROPONIN-I Collected: 03/13/2018 Status: F Source: [place] 2:12 PM [facility] REPOSITORY TYPE CODE TESTS RESULT OUT OF RANGE REFERENCE UNITS LAB L501.4010 <0.045 ng/mL Normal < 0.015 TROPONIN-I Result Comment: TROPONIN-I EXPECTED VALUES <0.045 Negative 0.045 - 0.590 Consistent with Cardiac Damage > OR = 0.600 Critical Value Not every elevated troponin is indicative of CO. These values should be used with clinical judgement in examining the patient's clinical picture for diagnosis. To establish a diagnosis of CO versus myocardial injury, there must be a demonstrated rise and/or fall in the troponin values, in addition to ischemic symptoms, EKG changes, new regional wall motion abnormality, and/or angiographical evidence. PLEASE NOTE: REFERENCE RANGES EDITED 17 Performed By: #### L500.2500, L501.4010 #### [facility] [address] [facility] [place], [address] CHEST 1 VIEW Observed: 03/13/2018 Status: F Source: [place] (PORTABLE) 2:02 PM [facility] REPOSITORY [facility] Imaging Services [address] [place] [address] Chest 1 View (Portable) MR#: [id number] Acct: [id number] Name: ANNETTE COMBS Rep #: [id number] : 1950 F 67 From: Irving Graham MD PCP: Bernardo Alfaro MD Status: REG ER Study: Chest 1 View (Portable) Date of Exam: 03/13/18 Exam# [id number] Ordering Dr: Kirill Last MD STUDY: X-RAY CHEST REASON FOR EXAM: Female, 67 years old. Chest pain. Tachycardia. TECHNIQUE: Single AP portable view of the chest. COMPARISON: Comparison is made with prior study dated September 23, 2010. FINDINGS: EKG electrodes are seen. The lungs are clear and expanded. There is no demonstrated pleural abnormality. Normal size heart. Normal mediastinum and beverly. Normal visualized pulmonary arteries. There is atherosclerotic calcification of the aortic arch with tortuosity. There are diffuse degenerative changes of the visualized thoracic spine. Normal visualized ribs, clavicles, and shoulders. There is no demonstrated abnormality of the visualized soft tissue structures of the upper abdomen. RAD/Chest 1 View (Portable) IMPRESSION: No acute abnormality is seen. Electronically Signed: Irving Graham MD at 14:25 EST , Service support , CC: MD Erick Last; Bernardo Alfaro MD Hand Candy Molder: Signed PROTHROMBIN TIME W/INR Collected: 03/06/2018 Status: F Source: [place] 6:31 AM [facility] REPOSITORY TYPE CODE TESTS RESULT OUT OF RANGE REFERENCE UNITS LAB L300.4150 11.7-14.9 SECONDS High PROTIME 23.0 LAB L300.4200 Normal INR 2.0 Performed By: #### L300.3900 #### [facility] [address] [facility] [place], [place], [address] PROTHROMBIN TIME W/INR Collected: 02/06/2018 Status: F Source: [place] 6:31 AM [facility] REPOSITORY TYPE CODE TESTS RESULT OUT OF RANGE REFERENCE UNITS LAB L300.4150 11.7-14.9 SECONDS High PROTIME 24.9 LAB L300.4200 Normal INR 2.2 Performed By: #### L300.3900 #### [facility] [address] [facility], [address] LOWER EXT ARTERIAL Observed: 01/26/2018 Status: F Source: [place] STUDY 10:32 PM [facility] REPOSITORY [facility] Cardiovascular Services [address] [place] [address] 01/26/18 2223 MR#: [id number] Acct: [id number] Name: ANNETTE COMBS Rep #: [id number] : 1950 67 From: Jacob Kelly MD Attending Dr: Joyce Morales DPM Status: REG CLI Ordering Dr: Date: 01/26/18 Location: [facility] Sex: F C Admitted: Arterial Study - [...] MD Date Dictated: 01/26/182222 Date Transcribed: 01/26/182222 Hand Candy Molder: ANNA Signed PROTHROMBIN TIME W/INR Collected: 01/16/2018 Status: F Source: [place] 6:28 AM [facility] REPOSITORY TYPE CODE TESTS RESULT OUT OF RANGE REFERENCE UNITS LAB L300.4150 11.7-14.9 SECONDS High PROTIME 26.3 LAB L300.4200 Normal INR 2.4 Performed By: #### L300.3900 #### [facility] [address] [place], [address] PROTHROMBIN TIME W/INR Collected: 12/30/2017 Status: F Source: [place] 11:02 AM [facility] REPOSITORY TYPE CODE TESTS RESULT OUT OF RANGE REFERENCE UNITS LAB L300.4150 11.7-14.9 SECONDS High PROTIME 27.8 LAB L300.4200 Normal INR 2.6 Performed By: #### L300.3900 #### [facility] [address] [place], [address] PROGRESS Observed: 12/18/2017 Status: COMPLETED Source: [place] 9:03 AM [facility] REPOSITORY HNO ID: [id number] Author: Bernardo Alfaro Service: (none) Author Type: Physician Type: Progress Notes Filed: 12/18/2017 10:26 AM Note Text: This note was created using Apprats. Subjective Patient presents with: Imm/Inj: Flu Vaccine Physical Annette Combs was here for an annual physical. Her chronic conditions were stable. She was now seeing Dr. Roman in [place] for pain management. She continued to see [...] atrophic vaginitis 06/27/2016 - Scoliosis Xray from [facility] 08/03/11 showed; also has narrowing L3-L4 and [...] COLONOSCOPY W/BX 05/17/11 repeat - EGD W/O [facility] SPECIMEN W/BX 05/17/11 - FILTER PLACEMENT (VENA [...] ORAL Tab Take two(2) tablets twice daily. [place]-3 Fatty Acids-Vitamin E (FISH OIL) 1,000 mg [...] complication, without long-term current use of insulin ([facility]) - ICD9: 250.90, ICD10: E11.8 Controlled. - Continue current medications - Discussed diabetic education issues of importance of annual examinations with Opthalmology with patient. 10. CKD (chronic kidney disease) stage 3, GFR 30-59 ml/min ([facility]) - ICD9: 585.3, ICD10: N18.3 Stable. Risks reviewed. 11. Allergic rhinitis, unspecified seasonality, unspecified trigger - ICD9: 477.9, ICD10: J30.9 Controlled. Continue antihistamine. Refills are current. Bernardo Alfaro MD PROGRESS Observed: 12/18/2017 Status: COMPLETED Source: [place] 8:48 AM [facility] REPOSITORY O ID: [id number] Author: Jackie Malagon [facility] Service: (none) Author Type: (none) Type: Progress Notes Filed: 12/18/2017 10:26 AM Note Text: 67 year old female here for INACTIVATED INFLUENZA VACCINE. [id number] Season Patient is identified by name and date of : Yes [] CONTRAINDICATIONS color enhanced section Age less than 6 months? No Allergy to eggs, chicken, chicken feathers, or chicken dander? No Allergy to thimerosal (a preservative) or formaldehyde, gelatin? No History of severe reaction to any vaccine component or a previous dose of influenza vaccination? 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 Yes See immunization activity in [facility] for details of immunizations adminstered today. Patient age: [age] year old For The 6902-5017 Flu Season 6-35 months old: Fluzone 0.25 [...] time. CNOV Observed: 12/18/2017 Status: COMPLETED Source: [place] 8:40 AM [facility] REPOSITORY Office Visit (INTMWS) ANNETTE COMBS ([id number]) 1950 F Date Time Provider Department 12/18/17 8:40 AM BERNARDO ALFARO INTMWS During your visit today, we recorded the following information about you: Temperature Pulse Respiration Blood pressure 97.9 degrees 95/minute 16/minute 110/64 Weight Height 78 kg 1.625 m Jackie Malagon Cma 12/18/2017 10:26 AM Signed 67 year old female here for INACTIVATED INFLUENZA VACCINE. 7664-1615 Season Patient is identified by name and date of : Yes [] CONTRAINDICATIONS color enhanced section Age less than 6 months? No Allergy to eggs, chicken, chicken feathers, or chicken dander? No Allergy to thimerosal (a preservative) or formaldehyde, gelatin? No History of severe reaction to any vaccine component or a previous dose of influenza vaccination? 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 Yes See immunization activity in [facility] for details of immunizations adminstered today. Patient age: [age] year old For The Flu Season 6-35 months old: Fluzone 0.25 [...] AM Signed This note was created using [employer]. Subjective Patient presents with: Imm/Inj: Flu Vaccine Physical Annette Combs was here for an annual physical. Her chronic conditions were stable. She was now seeing Dr. Roman in [place] for pain management. She continued to see [...] atrophic vaginitis 06/27/2016 - Scoliosis Xray from [facility] 08/03/11 showed; also has narrowing L3-L4 and [...] ORAL Tab Take two(2) tablets twice daily. Sparta-3 Fatty Acids-Vitamin E (FISH OIL) 1,000 mg [...] of proximal vein of both lower extremities ([facility]) - ICD9: 453.51, ICD10: I82.5Y3 Refilled. - WARFARIN 5 MG TABLET 6. Uncomplicated asthma, unspecified asthma severity, unspecified whether persistent - ICD9: 493.90, ICD10: J45.909 Stable. - Continue current meds 7. Foot drop, left - ICD9: 736.79, ICD10: M21.372 Seeing [facility] for podiatry. AFO in [...] complication, without long-term current use of insulin ([facility]) - ICD9: 250.90, ICD10: E11.8 Controlled. - Continue current medications - Discussed diabetic education issues of importance of annual examinations with Opthalmology with patient. 10. CKD (chronic kidney disease) stage 3, GFR 30-59 ml/min ([facility]) - ICD9: 585.3, ICD10: N18.3 Stable. Risks [...] your local pharmacy. Referring Provider: BERNARDO ALFARO [[id number]] Allergies As of Date: 12/18/2017 Noted Allergy [...] Date Reviewed: 12/18/2017 Reviewed by: Jackie Malagon Subassembly Supervisor - Fully Assessed Reason for Visit: Imm/Inj [58] Cmt: Flu Vaccine Physical [83] Reason For Visit History Recorded Primary Visit Diagnosis:Routine general medical examination at a health care facility [Z00.00] Other Visit Diagnoses:Need for vaccination [Z23] Degenerative lumbar spinal stenosis [M48.061] Spondylolisthesis of lumbar region [M43.16] Chronic deep vein thrombosis (DVT) of proximal vein of both lower extremities ([facility]) [I82.5Y3] Uncomplicated asthma, unspecified asthma severity, unspecified whether persistent [J45.909] Foot drop, left [M21.372] Hyperlipidemia, unspecified hyperlipidemia type [E78.5] Controlled type 2 diabetes mellitus with complication, without long-term current use of insulin ([facility]) [E11.8] CKD (chronic kidney disease) stage 3, GFR 30-59 ml/min ([facility]) [N18.3] Allergic rhinitis, unspecified seasonality, unspecified trigger [J30.9] Order(s):warfarin (COUMADIN) 5 mg tabletTake 1 tablet by mouth daily as directed.Disp: 45 tabletRfl: 5 INFLUENZA SEASONAL HIGH DOSE AGE 65+ [29719YZH] Order #: [id number] simvastatin (ZOCOR) 40 mg tabletTake 1 tablet by mouth daily at bedtime. For cholesterols.Disp: 90 tabletRfl: 3 PNEUMOCOCCAL IMMUNIZATION PPSV 23 [73126ORD] Order #: [id number] PROTHROMBIN TIME/PT [SQPT] Order #: [id number] Prescriptions as of 12/18/2017 Sig: ALBUTEROL SULFATE HFA 90 MCG/* Inhale 2 Puffs as instructed * MELANIE C ORAL Take 1 tablet by mouth once d* BLOOD SUGAR DIAGNOSTIC STRIPS Test 2 times daily Dx: E11.8* BLOOD-GLUCOSE METER Use daily as directed. Dx: E* CALCIUM CARBONATE 500 MG (1,2* Take two(2) tablets twice mike* COMPOUNDED PRESCRIPTION Sitz bath ESTRADIOL 10 MCG VAGINAL TABL* Use 1 tablet vaginally every * FERROUS SULFATE 325 MG (65 MG* Take 325 mg by mouth daily wi* GABAPENTIN 800 MG TABLET Take 1 tablet by mouth three * LANCETS Test blood sugar(s) 2 times d* LEVOCETIRIZINE 5 MG TABLET take 1 tablet by mouth once d* METFORMIN 500 MG TABLET take 1 tablet by mouth every * OMEGA-3 FATTY ACIDS-VITAMIN E* Take 3 pills once daily (?dos* OMEPRAZOLE 20 MG CAPSULE,AILYN* TAKE ONE CAPSULE BY MOUTH MIKE* OXYBUTYNIN CHLORIDE ER 10 MG * Take 1 tablet by mouth once d* THERAPEUTIC MULTIVITAMIN TABL* Take one(1) tablet daily. TRAMADOL 50 MG TABLET Take 1 tablet by mouth three * WARFARIN 5 MG TABLET Take 1 tablet by mouth daily * X FLUTICASONE 100 MCG-SALMETERO* Inhale 1 Puff as instructed t* SIMVASTATIN 40 MG TABLET Take 1 tablet [...] 12/18/17 CBC Collected: 12/13/2017 Status: F Source: [place] 7:42 AM [facility] REPOSITORY TYPE CODE TESTS RESULT OUT OF [...] nRBC <0.01 Performed By: #### CBC #### [facility] [address] [place], [place] [address] PROTIME Collected: 12/13/2017 Status: F Source: [place] 7:42 AM [facility] REPOSITORY TYPE CODE TESTS RESULT OUT OF RANGE REFERENCE UNITS LAB PSEC 9.7-13.0 sec High PT Sec 19.3 LAB INR 0.9-1.3 High PT INR 1.9 Result Comment: Vitamin K Antagonist (VKA) Therapeutic Range: INR 2 to 3 (Target INR of 2.5) Note: For patients treated with VKA drugs, such as warfarin, the [place] College of Chest Physicians 2012 Guideline recommends [...] GH, et al. Chest 2012, 141:7S-47S Thomas IRIZARRY et al. [facility] 2017, 70: 252-289 Performed By: #### PT, BMP, LIPB, HBA1C #### [facility] [address] [place] [address] BASIC METABOLIC PANL Collected: 12/13/2017 Status: F Source: [place] 7:42 [facility] REPOSITORY TYPE CODE TESTS RESULT OUT OF REFERENCE UNITS RANGE LAB GLU 74-99 mg/dL High Glucose 117 Result Comment: The [place] Diabetes Association (ADA) provides guidance for cutoff [...] Standards of Medical Care in Diabetes 2016, [place] Diabetes Association. Diabetes Care. 2016.39(Suppl 1). LAB [...] has been calibrated to be traceable to IDNJ. An eGFR <60 mL/min/1.73m2 for >3 months is consistent with chronic kidney disease. Refer to KDOQI guidelines for clinical interpretation. In patients with unstable renal function, e.g. those with acute kidney injury, the eGFR may not accurately reflect actual GFR. Performed By: #### PT, BMP, LIPB, HBA1C #### [facility] [address] [place] [address] LIPID PANEL, BASIC Collected: 12/13/2017 Status: F Source: [place] 7:42 AM [facility] REPOSITORY TYPE CODE TESTS RESULT [...] Desk Reference: National Heart, Lung, and Blood Success. National Institutes of Health. 2001: NIH Publication No. 01-3305. 2. An International Atherosclerosis Society position paper: global recommendations for the management of dyslipidemia: executive summary, Atherosclerosis. 2014: 232(2):410-413. Performed By: #### PT, BMP, LIPB, HBA1C #### [facility] [employer] [address] [place], [place] [address] HEMOGLOBIN A1C Collected: 12/13/2017 Status: F Source: [place] 7:42 AM [facility] REPOSITORY TYPE CODE TESTS RESULT OUT OF REFERENCE UNITS RANGE LAB HGBA1C 4.3-5.6 % High Hemoglobin A1c 6.4 LAB HBA0 mg/dL Est. Average Glucose 137 Result Comment: eAG: (Estimated average glucose) is a calculated value from HgbA1c and is technical 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s of the average blood glucose level in the last 2-3 month period. Performed By: #### PT, BMP, LIPB, HBA1C #### [facility] [employer] [address] [place], [place] [address] CNPTOUTREACH Observed: 12/03/2017 Status: COMPLETED Source: [place] 12:00 AM [facility] REPOSITORY Patient Outreach (FAMPST) ANNETTE COMBS ([id number]) 1950 F Date Time Provider Department 12/03/17 [...] - Fully Assessed Visit Diagnosis:Medication management [Z79.899] Order(s):[facility] [SQCBC] Order #: [id number] FUTURE Prescriptions as of 12/03/2017 Sig: ESTRADIOL [...] TIME W/INR Collected: 11/21/2017 Status: F Source: [place] 6:35 AM [facility] REPOSITORY TYPE CODE TESTS RESULT OUT OF RANGE REFERENCE UNITS LAB L300.4150 11.7-14.9 SECONDS High PROTIME 27.4 LAB L300.4200 Normal INR 2.5 Performed By: #### L300.3900 #### [facility] [address] [facility]. [place], [place], [address] Observed: 2017 Status: F Source: [place] CULTURE, URINE 8:45 AM [facility] REPOSITORY Urine Culture ORGANISM 1: Klebsiella pneumoniae sp pneum [place] Count >100,000 Klebsiella pneumoniae sp pneum: REACTION [...] <=20 S (NF) indicates non-formulary drug at [facility]. Approval by Infectious Disease Specialist required before non-formulary drugs may be ordered and/or dispensed. Performed By: #### M100.0650 #### [facility] [address] [facility] [address] [place], [place], [address] PM DRUG SCR CON Collected: 11/15/2017 Status: F Source: [facility] 2:43 PM [facility] REPOSITORY TYPE CODE TESTS RESULT OUT OF REFERENCE UNITS RANGE LAB L600.6000 Orkyxt=305 NG/ML 1 AMPHETAMINE Normal NEGATIVE LAB L600.6000 Vzwufh=127 NG/ML 6 BARBITURATES Normal NEGATIVE LAB L600.6001 Ecuwfh=721 NG/ML 1 BENZODIAZEPINES Normal NEGATIVE LAB L600.6001 Cutoff=20 NG/ML 6 BURPRENORPHINE Normal NEGATIVE LAB L600.6002 Ivgsot=634 NG/ML 1 COCAINE Normal NEGATIVE LAB L600.6002 Cutoff=50 NG/ML 6 THC Normal NEGATIVE LAB L600.6003 Mdwiyb=365 NG/ML 6 MTD Normal NEGATIVE LAB L600.6004 Eqerfk=088 NG/ML 6 OPIATES CLARITY Normal NEGATIVE LAB L600.6005 Xvrlod=441 NG/ML 1 OXYCODONE CL Normal NEGATIVE LAB [...] RITALIN CL CONF Normal NEGATIVE LAB L600.6011 Wriubp=466 NG/ML 1 CIPRIANO CONFIRM CL Normal POSITIVE LAB L600.6011 Hhiwcl=743 NG/ML 6 PREGABA CONF CL Normal NEGATIVE [...] AMITRIP CONF CL Normal NEGATIVE LAB L600.6019 Pbukap=308 NG/ML 1 PENTOB CONF CL Normal NEGATIVE LAB L600.6019 Zxcjef=055 NG/ML 6 BUTALB CONF CL Normal NEGATIVE LAB L600.6019 Tazloe=664 NG/ML 8 SECOBARBITAL CO Normal NEGATIVE LAB L600.6020 Wsyzld=781 NG/ML 1 PHENOB CONF CL Normal NEGATIVE LAB L600.6021 Cutoff=40 NG/ML 6 ALP CONF CL Normal NEGATIVE LAB L600.6022 Cutoff=40 NG/ML 1 ALPHA-H CONF CL Normal NEGATIVE LAB L600.6022 Cutoff=40 NG/ML 6 7-ACLON CONF CL Normal NEGATIVE LAB L600.6023 Cutoff=40 NG/ML 1 LORAZ CONF CL Normal NEGATIVE LAB L600.6023 Cutoff=40 NG/ML 6 TALON CONF CL Normal NEGATIVE LAB L600.6024 Cutoff=40 NG/ML 1 OXAZ CONF CL Normal NEGATIVE LAB L600.6024 Cutoff=40 NG/ML 6 TEMAZEP CONF CL Normal NEGATIVE LAB L600.60 Cutoff=40 NG/ML 1 CLONAZ CONF CL Normal NEGATIVE LAB L600.60 Cutoff=40 NG/ML 6 BOWMAN CONF CL Normal NEGATIVE LAB L600.60 Cutoff=40 NG/ML 1 FLUNITR CONF CL Normal NEGATIVE LAB L600.60 Cutoff=40 NG/ML 6 MIDAZ CONF CL Normal NEGATIVE LAB L600.60 Cutoff=40 NG/ML 1 TRIAZ CONF CL Normal NEGATIVE LAB L600.6028 Pebhxd=912 NG/ML 1 ETG CONF CL Normal NEGATIVE LAB L600.6028 Rdpcge=872 NG/ML 6 ETS CONF CL Normal NEGATIVE LAB L600.6029 Cutoff=5 NG/ML 6 6-DANAY CONF CL Normal NEGATIVE LAB L600.6030 Cutoff=40 NG/ML 1 BENZOYL CONF CL Normal [...] Normal NEGATIVE LAB L600.6055 Cutoff=10 NG/ML 6 [id number] CONF CL Normal NEGATIVE Result Comment: The Qualitative Testing is performed by [employer] LZ462[employer]. The Quantitative Confirmatory Analysis is a [facility] developed test(LDT), performed by quantitative liquid chromatography tandem mass spectrometry (LC-MS/MS). This LDT have not been cleared or approved by the FDA. Physicians should use discretion when interpreting analytical results for samples with failed validity testing. L/S SPINE MIN 4 Observed: 11/15/2017 Status: F Source: [place] VIEWS 10:33 AM [facility] REPOSITORY [facility] Imaging Services [address] [place] [address] L/S Spine Min 4 Views MR#: [id number] Acct: [id number] Name: ANNETTE COMBS Rep #: [id number] : 1950 F 66 From: Venkata June MD PCP: Bernardo Alfaro MD Status: REG CLI Study: L/S Spine Min 4 Views Date of Exam: 11/15/17 Exam# [id number] Ordering Dr: PETE ROMAN STUDY: X-RAY - [...] , CC: PETE ROMAN; Bernardo Alfaro MD Hand Candy Molder: Signed PROTHROMBIN TIME W/INR Collected: 10/31/2017 Status: F Source: [place] 6:51 AM [facility] REPOSITORY TYPE CODE TESTS RESULT OUT OF RANGE REFERENCE UNITS LAB L300.4150 11.7-14.9 SECONDS High PROTIME 27.6 LAB L300.4200 Normal INR 2.6 Performed By: #### L300.3900 #### [facility] [address] [place], [address] CNOV Observed: 10/25/2017 Status: COMPLETED Source: [place] 9:40 AM [facility] REPOSITORY Office Visit (WOOB) ANNETTE COMBS ([id number]) 1950 F Date Time Provider Department 10/25/17 9:40 AM ARGELIA THOMSON During your visit today, we recorded the following information about you: Blood pressure Weight Height 132/84 78.2 kg 1.6 m Argelia Thomson MD 10/25/2017 9:56 AM Signed Annette Artisey is a 66 year old who presents [...] PULM EMBOLISM/INFARCT NOS - Scoliosis Xray from [facility] 08/03/11 showed; also has narrowing L3-L4 and [...] COLONOSCOPY W/BX 05/17/11 repeat - EGD W/O [facility] SPECIMEN W/BX 05/17/11 - FILTER PLACEMENT (VENA [...] as needed 3) Vaginal atrophy - continue lazarovafepramod Thomson MD Referring Provider: SELF [200] Allergies [...] mammogram for malignant neoplasm of breast [Z12.31] Order(s):[facility] SCREENING [7296245] Order #: [id number] FUTURE [START ON 10/27/2017] Estradiol (YUVAFEM) 10 [...] about 1 year (around 10/25/2018) for Routine SOUND PRINTER exam. Follow-up and Disposition History Recorded Encounter Status:Closed by ARGELIA THOMSON MD on 10/25/17 PROGRESS Observed: 10/25/2017 Status: COMPLETED Source: [place] 9:31 AM [facility] REPOSITORY O ID: [id number] Author: Argelia Thomson Service: (none) Author Type: [...] PULM EMBOLISM/INFARCT NOS - Scoliosis Xray from [facility] 08/03/11 showed; also has narrowing L3-L4 and [...] TIME W/INR Collected: 10/23/2017 Status: F Source: [place] 7:13 AM [facility] REPOSITORY TYPE CODE TESTS RESULT OUT OF RANGE REFERENCE UNITS LAB L300.4150 11.7-14.9 SECONDS High PROTIME 28.3 LAB L300.4200 Normal INR 2.6 Performed By: #### L300.3900 #### [facility] [address] [facility], [address] PROTHROMBIN TIME W/INR Collected: 10/08/2017 Status: F Source: [place] 6:40 AM [facility] REPOSITORY TYPE CODE TESTS RESULT OUT OF RANGE REFERENCE UNITS LAB L300.4150 11.7-14.9 SECONDS High PROTIME 21.0 LAB L300.4200 Normal INR 1.8 Performed By: #### L300.3900 #### [facility] [address] [facility], [address] PROGRESS Observed: 10/04/2017 Status: COMPLETED Source: [place] 9:10 AM [facility] REPOSITORY O ID: [id number] Author: Kimberly ([place]) Older Service: (none) Author Type: Nurse Practitioner Type: Progress Notes Filed: 10/04/2017 9:35 AM Note Text: CC: Patient presents with: [facility] Discharge follow up: Vasovagal Syncope (Acute) HPI Annette Combs is a 66 year old female who presents today for hospital follow-up. Facility: [facility] Date of visit: 10/01 to 10/02 Reason [...] PULM EMBOLISM/INFARCT NOS - Scoliosis Xray from [facility] 08/03/11 showed; also has narrowing L3-L4 and [...] COLONOSCOPY W/BX 05/17/11 repeat - EGD W/O [facility] SPECIMEN W/BX 05/17/11 - FILTER PLACEMENT (VENA [...] ORAL Tab Take two(2) tablets twice daily. Sparta-3 Fatty Acids-Vitamin E (FISH OIL) 1,000 mg [...] agreeable to treatment plan. Kimberly Farah APRN.[place] CNOV Observed: 10/04/2017 Status: COMPLETED Source: [place] 9:00 AM [facility] REPOSITORY Office Visit (INTMWS) ANNETTE COMBS ([id number]) 1950 F Date Time Provider Department 10/04/17 9:00 AM GAGAN KIMBERLY ([place]) INTMWS During your visit today, we recorded the following information about you: Temperature Pulse Respiration Blood pressure 97 degrees 91/minute 14/minute 120/80 Weight 77.1 kg Kimberly Farah RUBIO 10/04/2017 9:35 AM Signed CC: Patient presents with: [facility] Discharge follow up: Vasovagal Syncope (Acute) HPI Annette Combs is a 66 year old female who presents today for hospital follow-up. Facility: [facility] Date of visit: 10/01 to 10/02 Reason [...] PULM EMBOLISM/INFARCT NOS - Scoliosis Xray from [facility] 08/03/11 showed; also has narrowing L3-L4 and [...] COLONOSCOPY W/BX 05/17/11 repeat - EGD W/O [facility] SPECIMEN W/BX 05/17/11 - FILTER PLACEMENT (VENA [...] ORAL Tab Take two(2) tablets twice daily. Sparta-3 Fatty Acids-Vitamin E (FISH OIL) 1,000 mg [...] occur. Patient agreeable to treatment plan. Kimberly Farah, CHACE.DEHYDRATOR Referring Provider: SELF [200] Allergies As of [...] Date Reviewed: 10/04/2017 Reviewed by: Roseann Rice Subassembly Supervisor - Fully Assessed Reason for Visit: [facility] Discharge follow up [Other] Cmt: Vasovagal Syncope [...] INVALID FOR* Encounter Status:Closed by KIMBERLY FARAH CNP on 10/04/17 XR FOOT 3V AP/LAT/OBL Observed: 10/04/2017 Status: F Source: [facility] 8:41 AM [facility] REPOSITORY * * *Final Report* [...] stable lateral subluxation of second tarsometatarsal joint. Hand Candy Molder: MARSHALL Transcribe Date/Time: Oct 04 2017 2:02P Dictated by : Marcel VERDE MD This examination was interpreted and the report reviewed and electronically signed by: Marcel VERDE MD on Oct 04 2017 2:07PM EST [id number] Observed: 10/04/2017 Status: COMPLETED Source: [place] 8:31 AM [facility] REPOSITORY HNO ID: [id number] Author: Shanelle Marrufo (RtArnoldo Gustafson Service: (none) Author Type: Garland Machine Operator Type: Progress Notes Filed: 10/04/2017 8:41 AM [...] AM PROGRESS Observed: 10/04/2017 Status: COMPLETED Source: [place] 8:07 AM [facility] REPOSITORY HNO ID: [id number] Author: Alexandru Toure Service: (none) Author Type: Physician Type: Progress Notes Filed: 10/04/2017 8:41 AM Note Text: ? Alexandru Toure DPM Department of Podiatry [address] [facility] [address] Dept: [phone] Dept 10/04/2017 Follow Up Podiatric Office Visit: [...] PULM EMBOLISM/INFARCT NOS - Scoliosis Xray from [facility] 08/03/11 showed; also has narrowing L3-L4 and [...] ORAL Tab Take two(2) tablets twice daily. Sparta-3 Fatty Acids-Vitamin E (FISH OIL) 1,000 mg [...] repeat xray today 5. F/u in1 month Alexandru Toure DPM CNOV Observed: 10/04/2017 Status: COMPLETED Source: [place] 7:40 AM [facility] REPOSITORY Office Visit (PODIWS) ANNETTE COMBS ([id number]) 1950 F Date Time Provider Department 10/04/17 7:40 AM ALEXANDRU TOURE PODJESUS MANUEL During your visit today, we recorded the following information about you: Alexandru Toure DPM 10/04/2017 8:41 AM Signed ? Alexandru Toure DPM Department of Podiatry [facility] [address] Dept: [phone] Dept 10/04/2017 Follow Up Podiatric Office Visit: HPI: Annette Artisey is a 66 year old female. Patient [...] PULM EMBOLISM/INFARCT NOS - Scoliosis Xray from [facility] 08/03/11 showed; also has narrowing L3-L4 and [...] ORAL Tab Take two(2) tablets twice daily. Sparta-3 Fatty Acids-Vitamin E (FISH OIL) 1,000 mg [...] Signed Continue brace. Referring Provider: ALEXANDRU TOURE [[id number]] Allergies As of Date: 10/04/2017 Noted Allergy [...] [E11.49] Order(s):XR FOOT GENERAL 3V AP/LAT/OBL LT [[id number]] Order #: [id number] FUTURE Prescriptions as of 10/04/2017 Sig: OMEPRAZOLE [...] DISCHARGE SUMMARY Observed: 10/03/2017 Status: F Source: [place] 3:22 PM [facility] REPOSITORY [facility] Medical Records Department [address] [place] [address] Discharge Summary 10/02/17 1433 MR#: [id number] Acct: [id number] Name: ANNETTE COMBS Rep #: [id number] : 1950 66 From: Cheryl Gates MD PCP: Bernardo Alfaro MD Status: DIS SIMONE Y Location: [place] [address] Discharge Date and Diagnosis Date of Admission: [...] H/o foot drop, on ankle brace by Rocio AkeLexralf Discharge Diet: Low fat/ Low Cholesterol, 2000 [...] HCl [Glucophage] 500 mg PO DAILY 10/01/17 Spart[place]-3 Fatty Acids/Fish Oil [Fish Oil 1,000 mg [...] applicable Code Visit Inpatient E AND M: 24194 Subs Hosp L2 10/03/17 1522 <Electronically signed by Cheryl Gates MD> Date Cheryl Gates MD Cosigner Signature (if applicable): Date CC: Cheryl Gates MD; Bernardo Alfaro MD Signed DISCHARGE INSTRUCTION Observed: 10/02/2017 Status: F Source: [place] 2:33 PM [facility] REPOSITORY [facility] Medical Records Department [address] [place] [address] Instructions for Home/Discharge Instructions 10/02/17 1426 MR#: [id number] Acct: [id number] Name: ANNETTE COMBS Rep #: [id number] : 1950 66 From: Cheryl Gates MD [...] HCl [Glucophage] 500 mg PO DAILY 10/01/17 Spart[place]-3 Fatty Acids/Fish Oil [Fish Oil 1,000 mg [...] BEDSIDE GLUCOSE Collected: 10/02/2017 Status: F Source: [place] 12:36 PM [facility] REPOSITORY TYPE CODE TESTS RESULT OUT OF RANGE REFERENCE UNITS LAB L501.080 70-110 mg/dL Normal BEDSIDE GLU 99 Result Comment: MANAGEMENT OF PATIENT CARE PER NURSING PROTOCOL Performed By: #### L501.080 #### [facility] Point of Care [address] [place] [address]. [place] [address] 12 LEAD ELECTROCARDIOGRAM Observed: 10/02/2017 Status: F Source: [place] 11:33 AM [facility] REPOSITORY [facility] Cardiovascular Services [address] [place] [address] 12 Lead EKG 10/01/17 0936 MR#: [id number] Acct: [id number] Name: ANNETTE COMBS Rep #: [id number] : 1950 66 From: Micky Bateman MD Attending Dr: Cheryl Gates MD Status: ADM SIMONE Ordering Dr: Pietro Simpson DO Date: 10/01/17 Location: [facility] Sex: F C Admitted: 10/01/17 Test Reason : SYNCOPE Blood Pressure : / mmHG Vent. Rate : 059 BPM Atrial Rate : 059 BPM P-R Int : 206 ms QRS Dur : 082 ms QT Int : 448 ms P-R-T Axes : 046 041 028 degrees QTc Int : 443 ms Sinus bradycardia Otherwise normal ECG Confirmed by MICKY BATEMAN MD ([id number]), slot editor EMMA MERCER ([id number]) on 10/02/2017 11:33:22 AM Referred By: Confirmed By:MICKY BATEMAN MD 10/02/17 1133 Date Micky Bateman MD CC: Cheryl Gates MD; Pietro Simpson DO; Bernardo Alfaro MD Signed BEDSIDE GLUCOSE Collected: 10/02/2017 Status: F Source: [place] 6:58 AM [facility] REPOSITORY TYPE CODE TESTS RESULT OUT OF RANGE REFERENCE UNITS LAB L501.080 70-110 mg/dL Normal BEDSIDE GLU 106 Result Comment: MANAGEMENT OF PATIENT CARE PER NURSING PROTOCOL Performed By: #### L501.080 #### [facility] Point of Care [facility] [place] [address] BASIC METABOLIC Collected: 10/02/2017 Status: F Source: [place] PROFILE (BMP) 6:20 AM [facility] [facility] [place] REPOSITORY TYPE CODE TESTS RESULT OUT OF [...] GAP 6 Performed By: #### L500.2500 #### [facility] [address] [facility] [address] PROTHROMBIN TIME W/INR Collected: 10/02/2017 Status: F Source: [place] 6:20 AM [facility] REPOSITORY TYPE CODE TESTS RESULT OUT OF RANGE REFERENCE UNITS LAB L300.4150 11.7-14.9 SECONDS High PROTIME 23.5 LAB L300.4200 Normal INR 2.1 Performed By: #### L300.3900 #### [facility] [address] [facility] [address] BEDSIDE GLUCOSE Collected: 10/01/2017 Status: F Source: [place] 9:55 PM [facility] REPOSITORY TYPE CODE TESTS RESULT OUT OF REFERENCE UNITS RANGE LAB L501.080 70-110 mg/dL High BEDSIDE GLU 166 Result Comment: MANAGEMENT OF PATIENT CARE PER NURSING PROTOCOL Performed By: #### L501.080 #### [facility] Point of Care [address] [place] [address]. [place] [address] BEDSIDE GLUCOSE Collected: 10/01/2017 Status: F Source: [place] 4:54 PM [facility] REPOSITORY TYPE CODE TESTS RESULT OUT OF REFERENCE UNITS RANGE LAB L501.080 70-110 mg/dL High BEDSIDE GLU 143 Result Comment: MANAGEMENT OF PATIENT CARE PER NURSING PROTOCOL Performed By: #### L501.080 #### [facility] Point of Care [address] [facility] [address] HISTORY AND PHYSICAL Observed: 10/01/2017 Status: F Source: [place] EXAM 4:42 PM [facility] REPOSITORY [facility] Medical Records Department [address] [place] [address], [place] [address] History and Physical 10/01/17 1131 MR#: [id number] Acct: [id number] Name: ANNETTE COMBS Rep #: [id number] : 1950 66 From: Manan Gallagher DO PCP: Bernardo Alfaro MD Status: ADM SIMONE Y Location: [place] [address] ADDENDUM by Manan Gallagher DO on 10/01/17 [...] a syncopal episode today. Patient was at [email or web address] getting fitted for an ankle brace for [...] bedside Code Visit OBSV E AND M: 63959 Initial observation care L3 10/01/17 1138 <Electronically signed by Manan Gallagher DO> Date Manan Gallagher DO Cosigner Signature: Date (if applicable) CC: Manan Gallagher DO; Bernardo Alfaro MD Signed TROPONIN-I Collected: 10/01/2017 Status: F Source: [place] 4:33 PM [facility] REPOSITORY TYPE CODE TESTS RESULT OUT OF RANGE REFERENCE UNITS LAB L501.4010 <0.045 ng/mL Normal < 0.015 TROPONIN-I Result Comment: TROPONIN-I EXPECTED VALUES <0.045 Negative 0.045 - 0.590 Consistent with Cardiac Damage > OR = 0.600 Critical Value Not every elevated troponin is indicative of CO. These values should be used with clinical judgement in examining the patient's clinical picture for diagnosis. To establish a diagnosis of CO versus myocardial injury, there must be a demonstrated rise and/or fall in the troponin values, in addition to ischemic symptoms, EKG changes, new regional wall motion abnormality, and/or angiographical evidence. PLEASE NOTE: REFERENCE RANGES EDITED 17 Performed By: #### L501.4010 #### [facility] [address] [facility] [place], [place], [address] TROPONIN-I Collected: 10/01/2017 Status: F Source: [place] 1:47 PM [facility] REPOSITORY TYPE CODE TESTS RESULT OUT OF RANGE REFERENCE UNITS LAB L501.4010 <0.045 ng/mL Normal < 0.015 TROPONIN-I Result Comment: TROPONIN-I EXPECTED VALUES <0.045 Negative 0.045 - 0.590 Consistent with Cardiac Damage > OR = 0.600 Critical Value Not every elevated troponin is indicative of CO. These values should be used with clinical judgement in examining the patient's clinical picture for diagnosis. To establish a diagnosis of CO versus myocardial injury, there must be a demonstrated rise and/or fall in the troponin values, in addition to ischemic symptoms, EKG changes, new regional wall motion abnormality, and/or angiographical evidence. PLEASE NOTE: REFERENCE RANGES EDITED 17 Performed By: #### L501.4010 #### [facility] [address] [place], [place], [address] BEDSIDE GLUCOSE Collected: 10/01/2017 Status: F Source: [place] 12:42 PM [facility] REPOSITORY TYPE CODE TESTS RESULT OUT OF REFERENCE UNITS RANGE LAB L501.080 70-110 mg/dL High BEDSIDE GLU 129 Result Comment: MANAGEMENT OF PATIENT CARE PER NURSING PROTOCOL Performed By: #### L501.080 #### [facility] Point of Care [address] [place] [address] EMERGENCY DEPARTMENT Observed: 10/01/2017 Status: F Source: [place] SUMMARY 11:08 AM [facility] REPOSITORY [facility] Medical Records Department [address] [place] [address] Emergency Department Summary 10/01/17 1106 MR#: [id number] Acct: [id number] Name: ANNETTE COMBS Rep #: [id number] : 1950 66 From: Pietro Simpson DO [...] rebound or rigidity, no peritoneal signs. Neuro ugbt-[id number]-nydj and heel elias testing within normal limits, [...] [Syncope-etiology uncertain] This note was generated with Goustoation software. It may contain incorrect words, spelling, [...] problems, contact your Primary Care Provider. Call [facility] ([phone]) or report to the closest Emergency Room. Call 911 if necessary. 10/01/17 1108 <Electronically signed by Pietro Simpson DO> Date Pietro Simpson DO Cosigner Signature (If Indicated): Date CC: Bernardo Alfaro MD BASIC METABOLIC Collected: 10/01/2017 Status: F Source: [place] PROFILE (BMP) 10:14 AM [facility] REPOSITORY TYPE CODE TESTS RESULT OUT OF [...] 6 Performed By: #### L500.2500, L501.4010 #### [facility] [address] [facility] [place], [place], [address] TROPONIN-I Collected: 10/01/2017 Status: F Source: [place] 10:14 AM [facility] REPOSITORY TYPE CODE TESTS RESULT OUT OF RANGE REFERENCE UNITS LAB L501.4010 <0.045 ng/mL Normal < 0.015 TROPONIN-I Result Comment: TROPONIN-I EXPECTED VALUES <0.045 Negative 0.045 - 0.590 Consistent with Cardiac Damage > OR = 0.600 Critical Value Not every elevated troponin is indicative of CO. These values should be used with clinical judgement in examining the patient's clinical picture for diagnosis. To establish a diagnosis of CO versus myocardial injury, there must be a demonstrated rise and/or fall in the troponin values, in addition to ischemic symptoms, EKG changes, new regional wall motion abnormality, and/or angiographical evidence. PLEASE NOTE: REFERENCE RANGES EDITED 17 Performed By: #### L500.2500, L501.4010 #### [facility] [address] [place], [address] CBC W/DIFF, AUTOMATED Collected: 10/01/2017 Status: F Source: [place] 10:14 AM [facility] REPOSITORY TYPE CODE TESTS RESULT OUT OF [...] Lymph 1.58 Performed By: #### L100.0100 #### [facility] [address] [place], [place], [address] PROTHROMBIN TIME W/INR Collected: 10/01/2017 Status: F Source: [place] 10:14 AM [facility] REPOSITORY TYPE CODE TESTS RESULT OUT OF RANGE REFERENCE UNITS LAB L300.4150 11.7-14.9 SECONDS High PROTIME 22.6 LAB L300.4200 Normal INR 2.0 Performed By: #### L300.3900 #### [facility] [address] [place], [address] PROTHROMBIN TIME W/INR Collected: 09/19/2017 Status: F Source: [place] 6:45 AM [facility] REPOSITORY TYPE CODE TESTS RESULT OUT OF RANGE REFERENCE UNITS LAB L300.4150 11.7-14.9 SECONDS High PROTIME 21.1 LAB L300.4200 Normal INR 1.8 Performed By: #### L300.3900 #### [facility] [address] [place], [address] PROGRESS Observed: 09/13/2017 Status: COMPLETED Source: [place] 9:01 AM [facility] REPOSITORY HNO ID: [id number] Author: Michelle () Arnoldo Mercer Service: (none) Author Type: Garland Machine Operator Type: Progress Notes Filed: 09/13/2017 9:01 AM [...] 3V AP/LAT/OBL Observed: 09/13/2017 Status: F Source: [facility] 9:00 AM [facility] REPOSITORY * * *Final Report* * * [...] INTRA-ARTICULAR BODY DISTENDED FIRST TARSOMETATARSAL CAPSULE DORSALLY. Hand Candy Molder: MARSHALL Transcribe Date/Time: Sep 13 2017 12:31P Dictated by : GERMAN COSTA MD This examination was interpreted and the report reviewed and electronically signed by: GERMAN COSTA MD on Sep 13 2017 12:34PM EST [id number] PROGRESS Observed: 09/13/2017 Status: COMPLETED Source: [place] 8:07 AM [facility] REPOSITORY HNO ID: [id number] Author: Alexandru Toure Service: (none) Author Type: Physician Type: Progress Notes Filed: 09/13/2017 11:55 PM Note Text: ? Alexandru Toure DPM Department of Podiatry [address] [place] [address] Dept: [phone] Dept 09/13/2017 Follow Up Podiatric Office Visit: [...] no exacerbating factors. She was referred to [facility], but unable to see due to [...] PULM EMBOLISM/INFARCT NOS - Scoliosis Xray from [facility] 08/03/11 showed; also has narrowing L3-L4 and [...] ORAL Tab Take two(2) tablets twice daily. Sparta-3 Fatty Acids-Vitamin E (FISH OIL) 1,000 mg [...] new afo and she can get at [facility]. I have had discussion with patient regarding [...] Past Histories independently gathered by the clinical administrative support coordinator and the remaining scribed note accurately describes my personal service to the patient. Alexandru Toure DPM CNOV Observed: 09/13/2017 Status: COMPLETED Source: [place] 7:55 AM [facility] REPOSITORY Office Visit (PODIWS) ANNETTE COMBS ([id number]) 1950 F Date Time Provider Department 09/13/17 7:55 AM ALEXANDRU TOURE During your visit today, we recorded the following information about you: Alexandru Toure DPM 09/13/2017 11:55 PM Signed ? Alexandru Toure DPM [facility] [address] [facility] [address] Dept: [phone] Dept 09/13/2017 Follow Up Podiatric Office Visit: [...] no exacerbating factors. She was referred to [facility], but unable to see due to [...] PULM EMBOLISM/INFARCT NOS - Scoliosis Xray from [facility] 08/03/11 showed; also has narrowing L3-L4 and [...] ORAL Tab Take two(2) tablets twice daily. Sparta-3 Fatty Acids-Vitamin E (FISH OIL) 1,000 mg [...] new afo and she can get at [facility]. I have had discussion with patient regarding [...] Past Histories independently gathered by the clinical administrative support coordinator and the remaining scribed note accurately describes my personal service to the patient. JESSICA Lee RN 09/13/2017 8:34 AM Signed Xrays today We will call you with the results and follow up Referring Provider: ALEXANDRU TOURE [[id number]] Allergies As of Date: 09/13/2017 Noted Allergy [...] joint of left foot, subsequent encounter [S93.325D] Order(s):XR FOOT GENERAL 3V AP/LAT/OBL LT [[id number]] Order #: [id number] FUTURE CONSULT TO ORTHOTIC/PROSTHETIC [[id number]] Order #: [id number]: 1 Prescriptions as of 09/13/2017 Sig: COMPOUNDED [...] 09/13/17 PROGRESS Observed: 09/04/2017 Status: COMPLETED Source: [place] 2:46 PM [facility] REPOSITORY HNO ID: [id number] Author: Karly Kay Cma Service: (none) Author Type: (none) Type: Progress Notes Filed: 09/06/2017 1:11 PM Note Text: Please file labs. Letters mailed to patient. PROGRESS Observed: 09/04/2017 Status: COMPLETED Source: [place] 2:44 PM [facility] REPOSITORY HNO ID: [id number] Author: Karly Kay Cma Service: (none) Author Type: (none) Type: Progress Notes Filed: 09/06/2017 1:11 PM Note Text: Upcoming appointment 12/18/17. A1C and BMP ordered. Lipid pending. Please file labs. I will send appointment/lab reminder with DM retinal exam reminder and release form. CNPTOUTREACH Observed: 09/04/2017 Status: COMPLETED Source: [place] 12:00 AM [facility] REPOSITORY Patient Outreach (INTMWS) ANNETTE COMBS ([id number]) 1950 F Date Time Provider Department 09/04/17 KARLY KAY ([facility]) INTMWS During your visit today, we recorded the following information about you: Karly Kay Cma 09/06/2017 1:11 PM Signed Upcoming appointment 12/18/17. A1C and BMP ordered. Lipid pending. Please file labs. I will send appointment/lab reminder with DM retinal exam reminder and release form. Karly Kay Subassembly Supervisor 09/06/2017 1:11 PM Signed Please file labs. [...] Assessed Reason for Visit: PHMA/Care Gap Outreach [[id number]] Primary Visit Diagnosis:Controlled type 2 diabetes mellitus with complication, without long-term current use of insulin (HCC) [E11.8] Order(s):LIPID PANEL BASIC [SQLIPB] Order #: [id number] FUTURE Prescriptions as of 09/04/2017 Sig: COMPOUNDED [...] in left foot [M79.672] INVALID FOR* Letter Text [place] Department of Internal Medicine Bernardo Durand MD [address] [place], [place] [address] Dear Annette Combs Your health care is [...] you, Bernardo Durand MD Letter Text Medicine [facility] [address] [place] [id number] Office: [phone] Bernardo Durand MD REQUEST FOR EYE EXAM FINDINGS March 09, 2016 Dear eye health care legal assistant, Thank you for coordinating eye care for [...] 09/06/17 PROGRESS Observed: 08/30/2017 Status: COMPLETED Source: [place] 7:58 AM [facility] REPOSITORY HNO ID: [id number] Author: Alexandru Toure Service: (none) Author Type: Physician Type: Progress Notes Filed: 08/30/2017 11:59 AM Note Text: ? Alexandru Toure DPM Department of Podiatry [address] [place] [address] Dept: [phone] Dept 08/30/2017 Follow Up Podiatric Office Visit: [...] PULM EMBOLISM/INFARCT NOS - Scoliosis Xray from [facility] 08/03/11 showed; also has narrowing L3-L4 and [...] to diabetes mellitus (HCC) (primary encounter diagnosis) (S93.283D) Dislocation of tarsometatarsal joint of left foot, [...] plan for immoblization with casting and possible seneca walker. Informed patient that it is possible [...] with either Dr. Ortiz or JESSICA Martins Observed: 08/30/2017 Status: COMPLETED Source: [place] 7:55 AM [facility] REPOSITORY Office Visit (PODIWS) ANNETTE COMBS ([id number]) 1950 F Date Time Provider Department 08/30/17 7:55 AM ALEXANDRU TOURE During your visit today, we recorded the following information about you: Alexandru Toure DPM 08/30/2017 11:59 AM Signed ? Alexandru Toure DPM Department of Podiatry [address] [facility] [address] [address] Dept: [phone] Dept 08/30/2017 Follow Up Podiatric Office Visit: HPI: Annette Combs is a 66 year old female. Patient presents for follow up for 1 wk post L charcot vs lisfranc fracture. Patient presents in B in wheelchair with TCC on LLE. Patient [...] PULM EMBOLISM/INFARCT NOS - Scoliosis Xray from [facility] 08/03/11 showed; also has narrowing L3-L4 and [...] plan for immoblization with casting and possible seneca walker. Informed patient that it is possible [...] Jannet Hooks Ma Referring Provider: ALEXANDRU TOURE [[id number]] Allergies As of Date: 08/30/2017 Noted Allergy [...] joint of left foot, subsequent encounter [S93.325D] Order(s):XR FOOT GENERAL 3V AP/LAT/OBL LT [[id number]] Order #: [id number] FUTURE CONSULT TO ORTHOPAEDICS [9026] Order #: [id number]: 1 Prescriptions as of 08/30/2017 Sig: COMPOUNDED [...] appointment for Dr. Ortiz. Jannet Hooks Ma Encounter Status:Closed by ALEXANDRU TOURE DPM on 08/30/17 URINALYSIS WITH Collected: 08/29/2017 Status: F Source: [place] MICROSCOPIC 7:35 AM [facility] REPOSITORY TYPE CODE TESTS RESULT OUT OF RANGE REFERENCE UNITS LAB UCOL Yellow Color Yellow LAB [facility] Clear Clarity Clear LAB UGLUC Negative mg/dL Glucose, Urine Negative LAB UBIL Negative Bilirubin, Urine Negative LAB UKET Negative Ketones, Urine Negative LAB USPG 1.005-1.030 Specific [place], Ur 1.010 LAB UHGB Negative Abnormal Hemoglobin/Blood, [...] Epithelial Cells Performed By: #### UAWMIC #### [facility] [employer] [address] [place] [address] Observed: 08/29/2017 Status: F Source: [place] URINE CULTURE 7:35 AM [facility] REPOSITORY Culture Result - No growth (<1,000 CFU/ml) Performed By: #### URCUL #### [facility] [employer] [address] [place] [id number] PROTHROMBIN TIME W/INR Collected: 08/29/2017 Status: F Source: [place] 6:57 AM [facility] REPOSITORY TYPE CODE TESTS RESULT OUT OF RANGE REFERENCE UNITS LAB L300.4150 11.7-14.9 SECONDS High PROTIME 24.0 LAB L300.4200 Normal INR 2.1 Performed By: #### L300.3900 #### [facility] [address] [place], [address] PROGRESS Observed: 08/22/2017 Status: COMPLETED Source: [place] 9:43 AM [facility] REPOSITORY HNO ID: [id number] Author: Jannet Hooks Ma Service: (none) Author Type: (none) Type: Progress Notes Filed: 08/23/2017 11:56 PM Note Text: PT ASSESSMENT - CASTING ROOM Annette presents for Application of Total Contact Cast. [...] Ma PROGRESS Observed: 08/22/2017 Status: COMPLETED Source: [place] 8:07 AM [facility] REPOSITORY HNO ID: [id number] Author: Alexandru Toure Service: (none) Author Type: Physician Type: Progress Notes Filed: 08/23/2017 11:56 PM Note Text: ? Alexandru Toure DPM Department of Podiatry [address] [address] Dept: [phone] Dept 08/22/2017 Follow Up Podiatric Office Visit: [...] PULM EMBOLISM/INFARCT NOS - Scoliosis Xray from [facility] 08/03/11 showed; also has narrowing L3-L4 and [...] place patient in cast today and order seneca boot. Conservative and surgical options are available [...] DPM CNOV Observed: 08/22/2017 Status: COMPLETED Source: [place] 7:55 AM [facility] REPOSITORY Office Visit (PODIWS) GONZALES COMBSA Yaron ([id number]) 1950 F Date Time Provider Department 08/22/17 7:55 AM ALEXANDRU TOURE During your visit today, we recorded the following information about you: Alexandru Toure DPM 08/23/2017 11:56 PM Signed ? Alexandru Toure DPM Department of Podiatry [address] [place] [address] Dept: [phone] Dept 08/22/2017 Follow Up Podiatric Office Visit: HPI: Annette Artisey is a 66 year old female. Patient [...] PULM EMBOLISM/INFARCT NOS - Scoliosis Xray from [facility] 08/03/11 showed; also has narrowing L3-L4 and [...] place patient in cast today and order seneca boot. Conservative and surgical options are available [...] You can purchase cast covers at [facility] to you. Itching DO NOT INSERT ANY OBJECT INTO YOUR CAST! If you experience any itching, you can try taking a math and sciences department chair and blow cool air into your cast. [...] If you have any questions/concerns, please contact [phone] and ask for podiatry and a nurse. It is important to stay off of your cast Jannet Hooks Ma 08/23/2017 11:56 PM Signed PT ASSESSMENT - CASTING ROOM [place] presents for Application of Total Contact Cast. [...] Jannet Hooks Ma Referring Provider: ALEXANDRU TOURE [[id number]] Allergies As of Date: 08/22/2017 Noted Allergy [...] Abnormality of gait [R26.9] Order(s):CONSULT TO ORTHOTIC/PROSTHETIC [[id number]] Order #: [id number]: 1 COMMODE CHAIR, MOBILE OR STATIONARY [[id number]] Order #: [id number] CRUTCHES - PAIR - ALUMINUM [[id number]] Order #: [id number] Prescriptions as of 08/22/2017 Sig: SULFAMETHOXAZOLE 800 [...] You can purchase cast covers at [facility] to you. Itching DO NOT INSERT ANY OBJECT INTO YOUR CAST! If you experience any itching, you can try taking a math and sciences department chair and blow cool air into your cast. [...] If you have any questions/concerns, please contact [phone] and ask for podiatry and a nurse. It is important to stay off of your cast Encounter Status:Closed by ALEXANDRU TOURE DPM on 08/23/17 CT FOOT WO IVCON LT Observed: 08/19/2017 Status: F Source: [place] 8:38 AM [facility] [place] REPOSITORY * * *Final Report* * * DATE OF EXAM: Aug 19 2017 8:38AM [facility] 0073 - CT FOOT WO IVCON LT [...] injury, a reinjury is not completely excluded. Hand Candy Molder: PSCB Transcribe Date/Time: Aug 20 2017 4:45P Dictated by : EVARISTO MORALES MD This examination was interpreted and the report reviewed and electronically signed by: ARTURO YOU MD on Aug 23 2017 10:32AM EST [id number] Observed: 08/19/2017 Status: COMPLETED Source: [place] 8:27 AM [facility] [place] REPOSITORY HNO ID: [id number] Author: Jessika Sierra Ct Service: (none) Author Type: (none) Type: Progress [...] IV DATA: Not applicable SIGNED BY: Jessika Sierra Ct August 19, 2017 8:27 AM PROTHROMBIN TIME W/INR Collected: 08/19/2017 Status: F Source: [place] 7:23 AM [facility] REPOSITORY TYPE CODE TESTS RESULT OUT OF RANGE REFERENCE UNITS LAB L300.4150 11.7-14.9 SECONDS High PROTIME 26.0 LAB L300.4200 Normal INR 2.4 Performed By: #### L300.3900 #### [facility] [address] [place], [place], [address] PROTHROMBIN TIME W/INR Collected: 08/15/2017 Status: F Source: [place] 6:53 AM [facility] REPOSITORY TYPE CODE TESTS RESULT OUT OF RANGE REFERENCE UNITS LAB L300.4150 11.7-14.9 SECONDS High PROTIME 20.1 LAB L300.4200 Normal INR 1.7 Performed By: #### L300.3900 #### [facility] [address] [place], [address] URINALYSIS WITH Collected: 08/14/2017 Status: F [facility] AM [facility] [place] REPOSITORY TYPE CODE TESTS RESULT OUT OF RANGE REFERENCE UNITS LAB UCOL Yellow Color Yellow LAB [facility] Clear Clarity Abnormal Turbid Alert LAB UGLUC Negative mg/dL Glucose, Urine Negative LAB UBIL Negative Bilirubin, Urine Negative LAB UKET Negative Ketones, Urine Negative LAB USPG 1.005-1.030 Specific [place], Ur 1.011 LAB UHGB Negative Abnormal Hemoglobin/Blood, [...] Epithelial Cells Performed By: #### UAWMIC #### [facility] [address] [place], [place] [address] PROGRESS Observed: 08/12/2017 Status: COMPLETED Source: [place] 9:18 AM [facility] REPOSITORY HNO ID: [id number] Author: Alexandru Toure Service: (none) Author Type: Physician Type: Progress Notes Filed: 08/15/2017 10:44 PM Note Text: ? Alexandru Toure DPM Department of Podiatry [address] [facility] [address] Dept: [phone] Dept 08/12/2017 Initial Podiatric Office Visit: HPI: [...] PULM EMBOLISM/INFARCT NOS - Scoliosis Xray from [facility] 08/03/11 showed; also has narrowing L3-L4 and [...] ORAL Tab Take two(2) tablets twice daily. Sparta-3 Fatty Acids-Vitamin E (FISH OIL) 1,000 mg [...] Jannet Hooks Ma acting as scribe for Aelxandru Toure DPM. August 12, 2017 9:18 AM. I agree with the Chief Complaint, ROS, and Past Histories independently gathered by the clinical administrative support coordinator and the remaining scribed note accurately describes my personal service to the patient. Alexandru Toure DPM CNOV Observed: 08/12/2017 Status: COMPLETED Source: [place] 8:40 AM [facility] REPOSITORY Office Visit (PODIWS) ANNETTE COMBS ([id number]) 1950 F Date Time Provider Department 08/12/17 8:40 AM ALEXANDRU TOURE PODIWS During your visit today, we recorded the following information about you: Alexandru Toure DPM 08/15/2017 10:44 PM Addendum ? Alexandru Toure DPM Department of Podiatry [address] [address] Dept: [phone] Dept 08/12/2017 Initial Podiatric Office Visit: HPI: [...] PULM EMBOLISM/INFARCT NOS - Scoliosis Xray from [facility] 08/03/11 showed; also has narrowing L3-L4 and [...] ORAL Tab Take two(2) tablets twice daily. Spart[place]-3 Fatty Acids-Vitamin E (FISH OIL) 1,000 mg [...] COLONOSCOPY W/BX 05/17/11 [facility]/17/11 - FILTER PLACEMENT (VENA [...] Past Histories independently gathered by the clinical administrative support coordinator and the remaining scribed note accurately describes my personal service to the patient. JESSICA Lee Ma 08/12/2017 9:46 AM Signed Continue with boot and non weight bearing. We have provided an order for a wheelchair that you can take to [facility] to get. Please schedule CT of your of L foot to further evaluate for dislocation/charcot deformity. Once scheduled, our pre cert department with check with your insurance for coverage. If your insurance doesn't not cover, you and our office will be notified. Follow up in 1 week If you have any questions, please contact our office at [phone] and ask for Podiatry and a nurse. [...] encounter [S92.505A] Order(s):CT FOOT WO IVCON LT [[id number]] Order #: [id number] FUTURE STANDARD WHEELCHAIR [[id number]] Order #: [id number] Prescriptions as of 08/12/2017 Sig: COMPOUNDED PRESCRIPTION [...] a wheelchair that you can take to [facility] to get. Please schedule CT of your of L foot to further evaluate for dislocation/charcot deformity. Once scheduled, our pre cert department with check with your insurance for coverage. If your insurance doesn't not cover, you and our office will be notified. Follow up in 1 week If you have any questions, please contact our office at [phone] and ask for Podiatry and a nurse. Disposition: Return in about 1 week (around 08/19/2017). Follow-up and Disposition History Recorded Encounter Status:Closed by ALEXANDRU TOURE DPM on 08/12/17 PROGRESS Observed: 08/06/2017 Status: COMPLETED Source: [place] 9:30 AM [facility] REPOSITORY HNO ID: [id number] Author: Shanelle Marrufo (Rt) Arnoldo Young Service: (none) Author Type: Garland Machine Operator Type: Progress Notes Filed: 08/06/2017 9:30 AM [...] 3V AP/LAT/OBL Observed: 08/06/2017 Status: F Source: [facility] 9:29 AM [facility] REPOSITORY * * *Final Report* * * [...] Correlation with the site of tenderness recommended. Hand Candy Molder: PSCB Transcribe Date/Time: Aug 07 2017 10:56A Dictated by : JERRY LE DO This examination was interpreted and the report reviewed and electronically signed by: JERRY LE DO on Aug 07 2017 11:05AM EST [id number] PROGRESS Observed: 08/06/2017 Status: COMPLETED Source: [place] 9:00 AM [facility] REPOSITORY HNO ID: [id number] Author: Kimberly (Clayton) Older Service: (none) Author [...] PULM EMBOLISM/INFARCT NOS - Scoliosis Xray from [facility] 08/03/11 showed; also has narrowing L3-L4 and [...] COLONOSCOPY W/BX 05/17/11 [facility]/17/11 - FILTER PLACEMENT (VENA [...] ORAL Tab Take two(2) tablets twice daily. Sparta-3 Fatty Acids-Vitamin E (FISH OIL) 1,000 mg [...] treatment plan. Kimberly Farah APRN.CNP CNOV Observed: 08/06/2017 Status: COMPLETED Source: [place] 8:40 AM [facility] REPOSITORY Office Visit (INTMWS) LAURYNANNETTE ([id number]) 1950 F Date Time Provider Department 08/06/17 8:40 AM KIMBERLY FARAH ([place]) INTMWS During your visit today, we recorded the following information about you: Temperature Pulse Respiration Blood pressure 97.5 degrees 68/minute 16/minute 119/89 Weight 77.6 kg Kimberly Farah APRN.CNP 08/06/2017 9:19 AM Signed CC: Patient presents with: numbness great toe and left foot: x 2 days HPI Annette Artisey is a 66 year old female who [...] PULM EMBOLISM/INFARCT NOS - Scoliosis Xray from [facility] 08/03/11 showed; also has narrowing L3-L4 and [...] COLONOSCOPY W/BX 05/17/11 repeat - EGD W/O [facility] SPECIMEN W/BX 05/17/11 - FILTER PLACEMENT (VENA [...] ORAL Tab Take two(2) tablets twice daily. Sparta-3 Fatty Acids-Vitamin E (FISH OIL) 1,000 mg [...] occur. Patient agreeable to treatment plan. Kimberly Farah, TESTING SHAKING SHIPPING.[place] Farah APRN.[place] 08/06/2017 9:08 AM Signed Continue to use [...] Date Reviewed: 08/06/2017 Reviewed by: Roseann Rice Subassembly Supervisor - Fully Assessed Reason for Visit: numbness great toe and left foot [Other] Cmt: x 2 days Primary Visit Diagnosis:Foot injury, left, initial encounter [S99.922A] Other Visit Diagnosis:Numbness of left foot [R20.8] Order(s):XR FOOT GENERAL 3V AP/LAT/OBL LT [[id number]] Order #: [id number] FUTURE XR TOE AP/LAT/OBL LT [[id number]] Order #: [id number] FUTURE Prescriptions as of 08/06/2017 Sig: COMPOUNDED [...] 08/06/17 PROGRESS Observed: 08/01/2017 Status: COMPLETED Source: [place] 2:31 PM [facility] REPOSITORY HNO ID: [id number] Author: Tracy August LPN Service: (none) Author Type: (none) Type: Progress Notes Filed: 08/01/2017 2:32 PM Note Text: This note was created using [employer] Hair[employer]. Subjective Annette Combs is a 66 year old female. Review of Systems Objective There were no vitals taken for this visit. Physical Exam Assessment and Plan Patient notified of results and provider's instructions. Patient verbalizes understanding. Pt want INR checked at [facility] until the RN returns from the coumadin clinic. Tracy August LPN PROGRESS Observed: 08/01/2017 Status: COMPLETED Source: [place] 1:23 PM [facility] REPOSITORY HNO ID: [id number] Author: Bernardo Alfaro Service: (none) Author Type: Physician Type: Progress Notes Filed: 08/01/2017 2:32 PM Note Text: Take coumadin 7.5 mg total for today only. Tomorrow resume usual dose:5 mg Sat thru Fridays and 7.5 mg Sat, Sundays. INR in 2 weeks. PROGRESS Observed: 08/01/2017 Status: COMPLETED Source: [place] 7:51 AM [facility] REPOSITORY HNO ID: [id number] Author: Margarita Colindres RN Service: (none) Author Type: (none) Type: Progress Notes Filed: 08/01/2017 7:52 AM Note Text: patient had inr completed at [facility] patients inr is 1.8 (patients inr range is 2.0-3.0) patient is currently taking 7.5mg Sat,Sun and 5mg all other days patients last [...] 08/15/17 PROGRESS Observed: 07/22/2017 Status: COMPLETED Source: [place] 8:00 AM [facility] REPOSITORY HNO ID: [id number] Author: Kimberly Austin) Older Service: (none) Author Type: Nurse Practitioner [...] PULM EMBOLISM/INFARCT NOS - Scoliosis Xray from [facility] 08/03/11 showed; also has narrowing L3-L4 and [...] COLONOSCOPY W/BX 05/17/11 repeat - EGD W/O [facility] SPECIMEN W/BX 05/17/11 - FILTER PLACEMENT (VENA [...] ORAL Tab Take two(2) tablets twice daily. Sparta-3 Fatty Acids-Vitamin E (FISH OIL) 1,000 mg [...] APRN.CNP CNOV Observed: 07/22/2017 Status: COMPLETED Source: [place] 7:40 AM [facility] REPOSITORY Office Visit (INTMWS) ANNETTE COMBS ([id number]) 1950 F Date Time Provider Department 07/22/17 7:40 AM KIMBERLY FARAH) INTMWS During your visit today, we recorded the following information about you: Pulse Respiration Blood pressure Weight 84/minute 16/minute 116/72 77.1 kg Kimberly Farah APRN.CNP 07/22/2017 7:58 AM Signed Finish out antibiotics as prescribed. Continue to monitor wound and call office if wound does not appear to be healing RUBIO Sands Older, TESTING SHAKING SHIPPING.DEHYDRATOR 07/22/2017 8:04 AM Signed CC: Patient presents [...] PULM EMBOLISM/INFARCT NOS - Scoliosis Xray from [facility] 08/03/11 showed; also has narrowing L3-L4 and [...] COLONOSCOPY W/BX 05/17/11 repeat - EGD W/O [facility] SPECIMEN W/BX 05/17/11 - FILTER PLACEMENT (VENA [...] ORAL Tab Take two(2) tablets twice daily. Sparta-3 Fatty Acids-Vitamin E (FISH OIL) 1,000 mg [...] agreeable to treatment plan. Kimberly Farah APRN.CNP Referring Provider: KIMBERLY FARAH ([place]) [[id number]] Allergies As of Date: 07/22/2017 Noted Allergy [...] headache Date Reviewed: 07/22/2017 Reviewed by: Birgit Ramos LPN - Fully Assessed Reason for Visit: Follow Up [171] Primary Visit Diagnosis:Open wound of buttock, left, subsequent encounter [S31.829D] Prescriptions as of 07/22/2017 Sig: AMOXICILLIN 875 [...] 07/22/17 PROGRESS Observed: 07/18/2017 Status: COMPLETED Source: [place] 7:46 AM [facility] REPOSITORY HNO ID: [id number] Author: Kimberly (Clayton) Gagan Service: (none) Author Type: Nurse Practitioner Type: [...] PULM EMBOLISM/INFARCT NOS - Scoliosis Xray from [facility] 08/03/11 showed; also has narrowing L3-L4 and [...] ORAL Tab Take two(2) tablets twice daily. Sparta-3 Fatty Acids-Vitamin E (FISH OIL) 1,000 mg [...] treatment plan. Kimberly Farah APRN.CNP CNOV Observed: 07/18/2017 Status: COMPLETED Source: [place] 7:40 AM [facility] REPOSITORY Office Visit (INTMWS) ANNETTE COMBS ([id number]) 1950 F Date Time Provider Department 07/18/17 7:40 AM KIMBERLY FARAH ([place]) INTMWS During your visit today, we recorded the following information about you: Temperature Pulse Respiration Blood pressure 97.7 degrees 80/minute 16/minute 120/80 Weight 77.1 kg Kimberly Farah APRN.CNP 07/18/2017 8:16 AM Signed CC: Patient presents with: bump on rectum: bleeding x 3 days HPI Annette Artisey is a 66 year old female who [...] PULM EMBOLISM/INFARCT NOS - Scoliosis Xray from [facility] 08/03/11 showed; also has narrowing L3-L4 and [...] COLONOSCOPY W/BX 05/17/11 repeat - EGD W/O [facility] SPECIMEN W/BX 05/17/11 - FILTER PLACEMENT (VENA CAVA) 11-03-12 - HEMORRHOIDECT INTER/EXTER SIMP 03/27/01 - KNEE SCOPE,DIAGNOSTIC Left 05/10/2003 Arthroscopy, knee Left - L'SCOPE DX W/WO BRUSHINGS/WASHINGS 1999 Laparoscopy - LAMINECTOMY,LUMBAR 1994 Back surgery - LAMINECTOMY,LUMBAR 11/05/2012 Laminectomy, lumbar - LIGATE FALLOPIAN TUBE 1988 Tubal ligation - OPEN RX ANKLE DISLOCATN+FIXATN 1987 ORIF Ankle - PAST SURGICAL HISTORY OF [...] ORAL Tab Take two(2) tablets twice daily. Sparta-3 Fatty Acids-Vitamin E (FISH OIL) 1,000 mg [...] Date Reviewed: 07/18/2017 Reviewed by: Roseann Rice Subassembly Supervisor - Fully Assessed Reason for Visit: bump on rectum [Other] Cmt: bleeding x 3 days Primary Visit Diagnosis:Open wound of buttock, left, initial encounter [S31.515V] Order(s):amoxicillin-clavulanic acid (AUGMENTIN) 875-125 mg per tabletTake [...] Status:Closed by KIMBERLY FARAH CNP on 07/18/17 KIDNEY/BLADDER Observed: 07/16/2017 Status: F Source: [place] 9:59 AM [facility] REPOSITORY * * *Final Report* * * [...] note is made of 2.6 cm gallstone. Hand Candy Molder: MARSHALL Transcribe Date/Time: Jul 16 2017 10:10A Dictated by : MART CHAN MD This examination was interpreted and the report reviewed and electronically signed by: MART CHAN MD on Jul 16 2017 10:14AM EST [id number] PROGRESS Observed: 07/16/2017 Status: COMPLETED Source: [place] 9:18 AM [facility] REPOSITORY HNO ID: [id number] Author: Judi Valero Rdms Service: (none) Author [...] URINALYSIS WITH Collected: 07/12/2017 Status: F Source: [facility] 9:36 AM [facility] REPOSITORY TYPE CODE TESTS RESULT OUT OF RANGE REFERENCE UNITS LAB UCOL Yellow Color Yellow LAB [facility] Clear Clarity Abnormal Cloudy Alert LAB UGLUC Negative mg/dL Glucose, Urine Negative LAB UBIL Negative Bilirubin, Urine Negative LAB UKET Negative Ketones, Urine Negative LAB [facility] 1.005-1.030 Specific [place], Ur 1.011 LAB UHGB Negative Abnormal Hemoglobin/Blood, [...] Epithelial Cells Performed By: #### UAWMIC #### [facility] [address] [place], [place] [address] ALBUMIN/CREAT RATIO Collected: 07/12/2017 Status: F Source: [place] 9:35 AM [facility] REPOSITORY TYPE CODE TESTS RESULT OUT OF REFERENCE UNITS RANGE LAB UCRR 20-300 mg/dL Creatinine,Ur 52.2 ine,Ran LAB UALBR 0.0-23.0 mg/L High Albumin Urine 69.4 Random LAB UALBCR 0-30 mg/g High Albumin/Creat 133 Ratio Result Comment: 30 to 300 mg/g indicates an increased risk for diabetic nephropathy. Greater than 300 mg/g is consistent with clinical nephropathy. (Am J Kidney Disease 1994, 25:107) Performed By: #### UACR #### [facility] [address] [place] [address] PROGRESS Observed: 07/12/2017 Status: COMPLETED Source: [place] 8:15 AM [facility] REPOSITORY HNO ID: [id number] Author: Bernardo Alfaro Service: (none) Author Type: Physician Type: Progress Notes Filed: 07/13/2017 4:49 PM Note Text: This note was created using Apprats. Subjective Annette Combs is a 66 year old female was here for follow up. She was recently diagnosed with diabetes mellitus. She was taking metformin with no side effects. She was on chronic anticoagulation for chronic deep vein thrombosis. Her asthma was stable. She stated having her eye exam at [facility] [place] [place], but results were not available. 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 She follows with Dr. Almendarez periodically for [...] ORAL Tab Take two(2) tablets twice daily. Sparta-3 Fatty Acids-Vitamin E (FISH OIL) 1,000 mg [...] MD CNOV Observed: 07/12/2017 Status: COMPLETED Source: [place] 8:00 AM [facility] REPOSITORY Office Visit (INTMWS) ANNETTE COMBS ([id number]) 1950 F Date Time Provider Department 07/12/17 8:00 AM BERNARDO ALFARO INTPramodWS During your visit today, we recorded the following information about you: Pulse Respiration Blood pressure Weight 91/minute 16/minute 126/84 78 kg Bernardo Alfaro MD 07/13/2017 4:49 PM Signed This note was created using NoteWriter. Subjective Annette Combs is a 66 year old female was here for follow up. She was recently diagnosed with diabetes mellitus. She was taking metformin with no side effects. She was on chronic anticoagulation for chronic deep vein thrombosis. Her asthma was stable. She stated having her eye exam at [facility] [place], but results were not available. 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 She follows with Dr. Almendarez periodically for [...] ORAL Tab Take two(2) tablets twice daily. Sparta-3 Fatty Acids-Vitamin E (FISH OIL) 1,000 mg [...] - URINALYSIS WITH MICROSCOPIC Bernardo Alfaro MD Referring Provider: SELF [200] Allergies [...] long-term current use of insulin (HCC) [E11.8] Other Visit Diagnoses:Chronic deep vein thrombosis (DVT) of proximal vein of both lower extremities ([facility]) [I82.5Y3] Uncomplicated asthma, unspecified asthma severity, unspecified whether persistent [J45.909] CKD (chronic kidney disease) stage 3, GFR 30-59 ml/min [N18.3] Order(s):US KIDNEY/BLADDER [[id number]] Order #: [id number] FUTURE URINALYSIS WITH MICROSCOPIC [SQUAWMIC] Order #: [id number]. #:[id number] ALBUMIN/CREAT RATIO RND UR [SQUACR] Order #: [id number] FUTURE BASIC METABOLIC PNL [SQBMP] Order #: [id number] FUTURE HGB A1C [HKABU6H] Order #: [id number] FUTURE Prescriptions as of 07/12/2017 Sig: GABAPENTIN [...] 07/13/17 PROGRESS Observed: 07/04/2017 Status: COMPLETED Source: [place] 12:51 PM [facility] REPOSITORY HNO ID: [id number] Author: Bernardo Alfaro Service: (none) Author Type: Physician Type: Progress Notes Filed: 07/04/2017 12:51 PM Note Text: Okay. PROGRESS Observed: 07/04/2017 Status: COMPLETED Source: [place] 7:37 AM [facility] REPOSITORY HNO ID: [id number] Author: Negra Barajas RN Service: (none) Author Type: (none) Type: Progress Notes Filed: 07/04/2017 7:38 AM Note Text: Patient had INR completed at [facility] Patient's INR is 2.9 Patient is currently [...] up. PROGRESS Observed: 06/06/2017 Status: COMPLETED Source: [place] 9:01 AM [facility] REPOSITORY HNO ID: [id number] Author: Kimberly Farah Service: (none) Author Type: Nurse Practitioner Type: Progress Notes Filed: 06/06/2017 9:01 AM Note Text: Kyaw Farah, TESTING SHAKING SHIPPINGJASIEL PROGRESS Observed: 06/06/2017 Status: COMPLETED Source: [place] 8:23 AM [facility] REPOSITORY HNO ID: [id number] Author: Negra Barajas RN Service: (none) Author Type: (none) Type: Progress Notes Filed: 06/06/2017 8:25 AM Note Text: Patient had INR completed at [facility] Patient's INR is 2.3 Patient is currently [...] RN PROGRESS Observed: 05/23/2017 Status: COMPLETED Source: [place] 1:16 PM [facility] REPOSITORY HNO ID: [id number] Author: Negra Barajas RN Service: (none) Author Type: (none) Type: Progress Notes Filed: 05/23/2017 1:16 PM Note Text: Patient scheduled for 06/06/17. Notified of below. Verbalized understanding. PROGRESS Observed: 05/23/2017 Status: COMPLETED Source: [place] 12:22 PM [facility] REPOSITORY HNO ID: [id number] Author: Bernardo Alfaro Service: (none) Author Type: Physician Type: Progress Notes Filed: 05/23/2017 1:16 PM Note Text: Continue Coumadin dose. INR in 2 weeks. PROGRESS Observed: 05/23/2017 Status: COMPLETED Source: [place] 7:40 AM [facility] REPOSITORY HNO ID: [id number] Author: Negra Barajas RN Service: (none) Author Type: (none) Type: Progress Notes Filed: 05/23/2017 7:41 AM Note Text: Patient had INR completed at [facility] Patient's INR is 2.8 Patient is currently [...] up. PROGRESS Observed: 05/09/2017 Status: COMPLETED Source: [place] 3:07 PM [facility] REPOSITORY HNO ID: [id number] Author: Negra Barajas RN Service: (none) Author Type: (none) Type: Progress Notes Filed: 05/09/2017 3:08 PM Note Text: Patient notified of below. Verbalized understanding. Follow up scheduled 05/23/17 PROGRESS Observed: 05/09/2017 Status: COMPLETED Source: [place] 8:08 AM [facility] REPOSITORY HNO ID: [id number] Author: Bernardo Alfaro Service: (none) Author Type: Physician Type: Progress Notes Filed: 05/09/2017 3:08 PM Note Text: Increase Coumadin dose. 7.5 mg Sat and Sun and 5 mg M,T,W,Charo,F. INR in 2 weeks. BASIC METABOLIC PANL Collected: 05/09/2017 Status: F Source: [place] 7:42 AM [facility] REPOSITORY TYPE CODE TESTS RESULT OUT OF REFERENCE UNITS RANGE LAB GLU 74-99 mg/dL High Glucose 119 Result Comment: The [place] Diabetes Association (ADA) provides guidance for cutoff [...] Standards of Medical Care in Diabetes 2016, [place] Diabetes Association. Diabetes Care. 2016.39(Suppl 1). LAB [...] actual GFR. Performed By: #### BMP #### [facility] [address] [place], [place] [address] PROGRESS Observed: 05/09/2017 Status: COMPLETED Source: [place] 7:40 AM [facility] REPOSITORY O ID: [id number] Author: Negra Barajas RN Service: (none) Author Type: (none) Type: Progress Notes Filed: 05/09/2017 7:41 AM Note Text: Patient had INR completed at [facility] Patient's INR is 1.8 Patient is currently [...] 2 week follow up for INR recheck. ALYSIAO Observed: 04/15/2017 Status: COMPLETED Source: [place] 10:32 AM [facility] REPOSITORY HNO ID: [id number] Author: Mammography Coordinator Service: (none) Author Type: Physician Type: Letter Filed: 04/16/2017 11:31 PM Note Text: April 15, 2017 PID: [id number] Annette Rina Lauryn [facility] [place] [address] Dear Ms. Combs, We are pleased to [...] report will be kept on file at [facility] as part of your permanent medical record and are available for your continuing care. Thank you for allowing us to help in meeting your health care needs. Sincerely, Dr. Arroyo Interpreting Radiologist [facility] (Normal over 40) DANAY DIG SCREEN CAD Observed: 04/15/2017 Status: F Source: [facility] 8:39 AM [facility] REPOSITORY * * *Final Report* * * DATE OF EXAM: Apr 15 2017 8:39AM [id number] - [facility] DIG SCREEN CAD LIZZETH - BILATERAL / PROCEDURE REASON: Encounter for screening mammogram for malignant neoplasm of breast * * * * Physician Interpretation * * * * RESULT: #[id number] - [facility] DIG SCREEN CAD LIZZETH BILATERAL DIGITAL SCREENING [...] mammogram, 04/05/2015 mammogram, and 02/25/2014 mammogram - [facility]. The tissue of both breasts is heterogeneously dense. This may lower the sensitivity of mammography. No significant masses, calcifications, or other findings are seen in either breast. There has been no significant interval change. IMPRESSION: NEGATIVE There is no mammographic evidence of malignancy.A 1 year screening mammogram is recommended. Micah george/bre:04/15/2017 10:32:42 Care Transition Mgr: Cinthya BLANTON)(Pramod), [facility] letter sent: Normal over 40 Mammogram BI-RADS: 1 Negative Hand Candy Molder: Bre Transcribe Date/Time: Apr 15 2017 8:26A Dictated by: MICAH ARROYO MD This examination was interpreted and the report reviewed and electronically signed by: MICAH ARROYO MD on Apr 15 2017 10:32AM EST PROGRESS Observed: 04/11/2017 Status: COMPLETED Source: [place] 1:54 PM [facility] REPOSIT[facility] HNO ID: [id number] Author: Bernardo Alfaro Service: (none) Author Type: Physician Type: Progress Notes Filed: 04/11/2017 1:54 PM Note Text: Okay. ALBUMIN/CREAT RATIO Collected: 04/11/2017 Status: F Source: [place] 7:57 AM [facility] REPOSITORY TYPE CODE TESTS RESULT OUT OF [...] 1995, 25:107) Performed By: #### UACR #### [facility] [address] [place], [place] [address] LIPID PANEL, BASIC Collected: 04/11/2017 Status: F Source: [place] 7:52 AM [facility] REPOSITORY TYPE CODE TESTS RESULT OUT OF [...] Desk Reference: National Heart, Lung, and Blood Success. National Institutes of Health. 2001: NIH Publication No. 01-3305. 2. An International Atherosclerosis Society position paper: global recommendations for the management of dyslipidemia: executive summary, Atherosclerosis. 2014: 232(2):410-413. Performed By: #### LIPB #### [facility] [address] [place], [place] [address] BASIC METABOLIC PANL Collected: 04/11/2017 Status: F Source: [place] 7:51 AM [facility] REPOSITORY TYPE CODE TESTS RESULT OUT OF REFERENCE UNITS RANGE LAB GLU 74-99 mg/dL High Glucose 108 Result Comment: The [place] Diabetes Association (ADA) provides guidance for cutoff [...] Standards of Medical Care in Diabetes 2016, [place] Diabetes Association. Diabetes Care. 2016.39(Suppl 1). LAB [...] By: #### BMP, TSH, B12, HBA1C #### [facility] [employer] [address] [place], [place] [address] TSH Collected: 04/11/2017 Status: F Source: [place] 7:51 AM [facility] REPOSITORY TYPE CODE TESTS RESULT OUT OF RANGE REFERENCE UNITS LAB TSH 0.400-5.500 uU/mL TSH 1.820 Performed By: #### BMP, TSH, B12, HBA1C #### [facility] [employer] [address] [place], [place] [address] VITAMIN B12 Collected: 04/11/2017 Status: F Source: [place] 7:51 AM [facility] REPOSITORY TYPE CODE TESTS RESULT OUT OF REFERENCE UNITS RANGE LAB B12 232-1245 pg/mL Vitamin B12 697 Performed By: #### BMP, TSH, B12, HBA1C #### [facility] [employer] [address] [place], [place] [address] HEMOGLOBIN A1C Collected: 04/11/2017 Status: F Source: [place] 7:51 AM [facility] REPOSITORY TYPE CODE TESTS RESULT OUT OF REFERENCE UNITS RANGE LAB HGBA1C 4.3-5.6 % High Hemoglobin A1c 6.4 LAB HBA0 mg/dL Est. Average Glucose 137 Result Comment: eAG: (Estimated average glucose) is a calculated value from HgbA1c and is technical 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s of the average blood glucose level in the last 2-3 month period. Performed By: #### BMP, TSH, B12, HBA1C #### [facility] [address] [place], [place] [address] PROGRESS Observed: 04/11/2017 Status: COMPLETED Source: [place] 7:46 AM [facility] CENTER REPOSITORY HNO ID: [id number] Author: Negra Barajas RN Service: (none) Author Type: (none) Type: Progress Notes Filed: 04/11/2017 7:47 AM Note Text: Patient had INR completed at [facility] Patient's INR is 2.7 Patient is currently [...] up. PROGRESS Observed: 04/10/2017 Status: COMPLETED Source: [place] 8:24 AM [facility] REPOSITORY HNO ID: [id number] Author: Bernardo Alfaro Service: (none) Author Type: [...] MD PROGRESS Observed: 03/31/2017 Status: COMPLETED Source: [place] 11:05 AM [facility] REPOSITORY O ID: [id number] Author: Lety Moon (Pa) Service: (none) Author Type: Physician Park Ranger Type: Progress Notes Filed: 04/02/2017 6:17 AM [...] PULM EMBOLISM/INFARCT NOS - Scoliosis Xray from [facility] 08/03/11 showed; also has narrowing L3-L4 and [...] two(2) tablets twice daily. Disp: Rfl: 0 [place]-3 Fatty Acids-Vitamin E (FISH OIL) 1,000 mg [...] COLONOSCOPY W/BX 05/17/11 repeat - EGD W/O [facility] SPECIMEN W/BX 05/17/11 - FILTER PLACEMENT (VENA [...] PA-C PROGRESS Observed: 03/28/2017 Status: COMPLETED Source: [place] 12:37 PM [facility] REPOSITORY HNO ID: [id number] Author: Bernardo Alfaro Service: (none) Author Type: Physician Type: Progress Notes Filed: 03/28/2017 12:37 PM Note Text: I agree. PROGRESS Observed: 03/28/2017 Status: COMPLETED Source: [place] 8:23 AM [facility] REPOSITORY HNO ID: [id number] Author: Negra Barajas RN Service: (none) Author Type: (none) Type: Progress Notes Filed: 03/28/2017 8:24 AM Note Text: Patient had INR completed at [facility] Patient's INR is 1.9 Patient is currently [...] scheduled for 04/11/17 for INR follow up. ALLERGIES ALLERGIES DATE TYPE / CODE NAME / CODE REACTION SEVERITY SOURCE Drug oxycodone Unknown Unknown [place] 8 Allergy/193712831( HCl/M616429021(RXN [facility]) OR) Hospital Repository Drug propoxyphene Unknown Unknown [place] 8 Allergy/875070525( HCl/Z926034741(RXN [facility]) ORM) Hospital Repository Drug morphine/[id number] Unknown Unknown [place] 8 Allergy/309661440( 5(RXNORM) [facility] SN[facility]) Hospital Repository Drug chlorhexidine/F006 Rash Unknown [place] 8 Allergy/417110956( 321220(RXNORM) [facility]) Hospital Repository Miscellaneous cotton Unknown Unknown [place] 8 Allergy/730200163( [facility]) Hospital Repository Miscellaneous feathers Unknown Unknown [place] 8 Allergy/903318192( [facility]) Hospital Repository Miscellaneous grass Unknown Unknown [place] 8 Allergy/009974253( [facility] SNOMED CT) Hospital Repository Miscellaneous vinegar Unknown Unknown [place] 8 Allergy/467213992( [facility] SNOMED CT) Hospital Repository Miscellaneous wool Unknown Unknown [place] 8 Allergy/527199647( [facility] SNOMED CT) Hospital Repository DRUG CHLORHEXIDINE ITCHING [place] 4 INGREDI/547972524( [facility] SNOMED [facility]) [place] Repository DRUG GRASS POLLEN ITCHING [place] 3 INGREDI/672825199( [facility] SNOMED CT) [place] Repository DRUG PROPOXYPHENE HCL Mental Ch[facility] [place] 9 INGREDI/990270790( [facility] SNOMED CT) [place] Repository DRUG MORPHINE Mental Chg [place] 9 INGREDI/303918230( [facility] SNOMED CT) [place] Repository Environ/314948186( [place] OTHER: SEE [place] [address]) [facility] [place] Repository DRUG FEATHERS OTHER: SEE [facility] 5 INGREDI/137284701( [facility] SNOMED CT) [place] Repository Food/245847799(SNO VINEGAR OTHER: SEE [facility] [address]) [facility] [place] Repository Environ/848302087( WOOL OTHER: SEE [place] [address]) [facility] [place] Repository ENCOUNTERS ENCOUNTERS ADMIT/DISCHARGE ACCOUNT ADMITTING ENCOUNTER LOCATION SOURCE NUMBER CLASS 03/14/2018 [id number] Ambulatory [facility] ing:CVS Repository 03/13/2018/03/13/19 [id number] Emergency [address] ing:ED Repository 03/06/2018 [id number] Ambulatory [facility] ing:LAB Repository 02/13/2018 [id number] Ambulatory [facility] g:H.PMJ Repository 02/06/2018/02/07/20 [id number] Ambulatory [address] ing:LAB Repository 01/16/2018/01/18/20 [id number] Ambulatory [address] ing:LAB Repository 01/15/2018 [id number] Ambulatory [facility] ing:CVS Repository 01/01/2018 [id number] Ambulatory [facility] g:H.PMJ Repository 12/18/2017/12/20/19 [id number] Ambulatory [address] Repository 12/13/2017/12/14/19 [id number] Ambulatory [address] Repository 11/28/2017 [id number] Ambulatory [facility] ing:LAB.FUTUR Repository E 11/21/2017/11/22/19 [id number] Ambulatory [address] ing:LAB Repository 11/20/2017 [id number] [facility] [place] g:H.PMJ Repository 2017 [id number] Ambulatory [facility] ing:LABSPEC Repository 11/15/2017 [id number] Ambulatory [facility] ing:RAD Repository 11/15/2017 [id number] Ambulatory [facility] g:H.PMJ Repository 10/31/2017/11/01/19 [id number] Ambulatory [address] ing:LAB Repository 10/25/2017/10/26/19 [id number] Ambulatory [address] Repository 10/08/2017/10/09/19 [id number] Ambulatory [address] ing:LAB Repository 10/04/2017/10/08/19 [id number] Ambulatory [address] Repository 10/04/2017/10/05/19 [id number] Ambulatory [address] Repository 10/04/2017/10/09/19 [id number] Ambulatory [address] Repository 10/01/2017/10/03/19 [id number] Manan Gallagher Ambulatory [address] ing:PCURoom: Repository IEX078Nen: 1 10/01/2017 [id number] Manan Gallagher Ambulatory BMSBuilding:Vincent Fraser MS.BLANCHEP [facility] Repository 10/01/2017 [id number] Manan Gallagher [facility] 09/13/2017/09/14/19 [id number] Ambulatory [address] Repository 09/13/2017/09/14/19 [id number] Ambulatory [address] Repository 08/30/2017/08/31/19 [id number] Ambulatory [address] Repository 08/29/2017/08/30/19 [id number] Ambulatory [address] Repository 08/29/2017 [id number] Ambulatory [facility] ing:LAB Repository 08/22/2017/08/28/19 [id number] Ambulatory [address] Repository 08/19/2017/08/20/19 [id number] Ambulatory [address] Repository 08/19/2017 [id number] Ambulatory [facility] ing:LAB Repository 08/15/2017 [id number] Ambulatory [facility] ing:LAB.FUTUR Repository E 08/14/2017/08/15/19 [id number] Ambulatory [address] Repository 08/12/2017/08/17/19 [id number] Ambulatory [address] Repository 08/06/2017/08/07/19 [id number] Ambulatory [address] Repository 08/06/2017/08/08/19 [id number] Ambulatory [address] Repository 08/01/2017/08/03/19 [id number] Ambulatory [address] [place] Repository 07/22/2017/07/24/19 [id number] Ambulatory [address] Repository 07/18/2017/07/20/19 [id number] Ambulatory [address] Repository 07/16/2017/07/17/19 [id number] Ambulatory [address] [place] Repository 07/12/2017/07/13/19 [id number] Ambulatory [address] Repository 07/12/2017/07/17/19 [id number] Ambulatory [facility] [place] Repository 07/04/2017/07/06/19 [id number] Amb[facility] [place] Repository 06/06/2017/06/08/19 [id number] Amb[facility] [place] Repository 05/23/2017/05/25/19 [id number] Amb[facility] [place] Repository 05/09/2017/05/10/19 [id number] [facility] [place] Repository 05/09/2017/05/10/19 [id number] Amb[facility] [place] Repository 04/15/2017/04/15/19 [id number] Amb[facility] [place] Repository 04/11/2017/04/16/19 [id number] Ambulatory [place] [facility] [place] Repository 04/11/2017/04/12/19 [id number] [facility] [place] Repository 04/10/2017/04/12/19 [id number] Ambulatory [facility] [place] Repository 03/31/2017/03/31/19 [id number] Amb[facility] [place] Repository 03/28/2017/03/29/19 [id number] [facility] [place] Repository 03/26/2017/03/26/19 [id number] Ambulatory [place] [address] [place] [address] ing:DC Repository PAYERS PAYERS ENCOUNTER GUARANTOR PAYER SUBSCRIBER SOURCE 03/14/2018 [facility] NOT GIVENUNK [place] [id number] Insurance:SELF PAY [place] Number: Effective Repository [id number]: 330) Date:2018-03-14 [phone] () 03/13/2018 [facility] ANNETTE K [place] [id number] Insurance:MARTA BOLEYDOB: [facility] [place] Number: Repository [id number]: 330 [id number] [phone] () e Date:8467-67-74[address] [address]ZN: 03/13/2018 Secondary NOT GIVENUNK [place] Insurance:[facility]LF [facility]Y [facility] Number: Effective Repository Date:2018-03-13 03/06/2018 [facility] ANNETTE Marrufo [place] [id number] Insurance:MARTA BOLEYDOB: [facility] [id number] Behavioral Health SystemOPolbroadlawns medical center Number: Repository [id number]: (330 [id number] [phone] () e Date:7374-70-58RY [address], [place] [address]GP: 03/06/2018 Secondary NOT GIVENUNK [place] Insurance:SELF PAY [facility] Number: Effective Repository Date:2018-02-17 02/13/2018 ANNETTE Marrufo Primary ANNETTE RAMIREZ [facility] [id number] Insurance:[facility] Repository [place], [place] HMOPolic Number: [id number]: 330 [id number] [phone] () e Date:[address], [place] [address]OO: 02/06/2018 [address] [facility] ANNETTE Marrufo [place] [id number] Insurance:MARTA BOLEYDOB: [facility] 1833-05-54QUTHighlands Behavioral Health SystemOPolbroadlawns medical center Number: Repository [id number]: (330 [id number] [phone] () e Date:9809-43-88MM [address], [place] [address]IT: 02/06/2018 Secondary NOT GIVENUNK [place] Insurance:SELF PAY [facility] Number: Effective Repository Date:2018-01-20 01/16/2018 [facility] ANNETTE Marrufo [place] [id number] Insurance:MARTA BOLEYDOB: [facility] [id number] Behavioral Health SystemOPolic Number: Repository 64914Ovb: 330 [id number] [phone] () e Date:3930-58-72QY [address], [place] [address]SB: 01/16/2018 Secondary NOT GIVENUNK [place] Insurance:SELF PAY [facility] Number: Effective Repository Date:2017-12-19 01/15/2018 [facility] ANNETTE Marrufo [place] [id number] Insurance:MRATA BOLEYDOB: [facility] 7280-18-48SYVHighlands Behavioral Health SystemOPolicy Number: Repository [id number]: (330) [id number] [phone] () e Date:1400-74-74XV [address], [place] [address]VX: 01/15/2018 Secondary NOT GIVENUNK [place] Insurance:SELF PAY [facility] Number: Effective Repository Date:2018-01-06 01/01/2018 ANNETTE Marrufo Primary ANNETTE ARTISEYRENE [facility] [id number] Insurance:[facility] Number: [id number]: (330) [id number] [phone] () e Date:[address], [place] [address]AG: 11/28/2017 [address] [facility] ANNETTE Marrufo [place] [id number] Insurance:MARTA BOLEYDOB: [facility] [id number] Hospitalicy Number: Repository [address]Oow: (330) [id number] [phone] () e Date:2165-43-28NT [address], [place] [address]AT: 11/28/2017 Secondary NOT GIVENUNK [place] Insurance:SELF PAY [facility] Number: Effective Repository Date:2017-11-18 11/21/2017 [address] [facility] ANNETTE Marrufo [place] [id number] Insurance:MARTA BOLEYDOB: [facility] [id number] Hospitalicy Number: Repository [id number]: (330 [id number] [phone] () e Date:2418-98-18YU [address], [place] [address]PB: 11/21/2017 Secondary NOT GIVENUNK [place] Insurance:SELF PAY [facility] Number: Effective Repository Date:2017-11-20 11/20/2017 ANNETTE Marrufo Primary ANNETTE Yaron [facility]Z [facility] [id number] Insurance:[facility] Number: [id number]: 330 [id number] [phone] () e Date:[address], [place] [address]DT: 2017 [address] [facility] ANNETTE Marrufo [place] [id number] Insurance:MARTA BOLEYDOB: [facility] [id number] Behavioral Health SystemOPolicy Number: Repository [id number]: (330) [id number] [phone] () e Date:6127-44-92JX [address] [address]GH: 2017 Secondary NOT GIVENUNK [place] Insurance:SELF PAY [facility] Number: Effective Repository Date:2017 11/15/2017 [address] [facility] ANNETTE Marrufo [place] [id number] Insurance:MARTA BOLEYDOB: [facility] [id number] Health Number: Repository [id number]: 330 [id number] [phone] () e Date:6924-83-66LQ [address], [place] [address]DX: 11/15/2017 Secondary NOT GIVENUNK [place] Insurance:SELF PAY [facility] Number: Effective Repository Date:2017-11-15 11/15/2017 ANNETTE Marrufo Primary ANNETTE [facility] [id number] Insurance:[facility] Repository [facility] Number: [id number]: (330 [id number] [phone] () e Date:[address], [place] [address]TN: 10/31/2017 [address] [facility] ANNETTE Marrufo [place] [id number] Insurance:MARTA BOLEYDOB: [facility] [id number] Behavioral Health SystemOPolicy Number: Repository [id number]: (330) [id number] [phone] () e Date:6974-61-83ZG [address], [place] [address]CH: 10/31/2017 Secondary NOT GIVENUNK [place] Insurance:SELF PAY [facility] Number: Effective Repository Date:2017-10-22 10/08/2017 [address] [facility] ANNETTE Marrufo [place] [id number] Insurance:MARTA BOLEYDOB: [facility] [id number] Health Number: Repository [id number]: (330 [id number] [phone] () e Date:9509-19-54PR [address], [place] [address]BZ: 10/08/2017 Secondary NOT GIVENUNK [place] Insurance:SELF PAY [facility] Number: Effective Repository Date:2017-09-19 10/01/2017 [address] [facility] ANNETTE Marrufo [place] [id number] Insurance:MARTA BOLEYDOB: [facility] [id number] Behavioral Health SystemOPolbroadlawns medical center Number: Repository [id number]: 330 [id number] [phone] () e Date:6703-64-91NP [address], [place] [address]WY: 10/01/2017 Secondary NOT GIVENUNK [place] Insurance:SELF PAY [facility] Number: Effective Repository Date:2017-10-01 10/01/2017 [address] [facility] ANNETTE K [place] [id number] Insurance:MARTA BOLEYDOB: [facility] 2138-27-23MEDHighlands Behavioral Health SystemOPolicy Number: Repository [id number]: (330 [id number] [phone] () e Date:0248-88-64HI [address] [address]RK: 10/01/2017 Secondary NOT GIVENUNK [place] Insurance:SELF PAY [facility] Number: Effective Repository Date:2017-10-01 10/01/2017 [address] [facility] ANNETTE Marrufo [place] [id number] Insurance:MARTA BOLEYDOB: [facility] [id number] Hospitalicy Number: Repository [id number]: (330 [id number] [phone] () e Date:6507-94-16WS [address] [address]OB: 10/01/2017 Secondary NOT GIVENUNK [place] Insurance:SELF PAY [facility] Number: Effective Repository Date:2017-10-01 08/29/2017 DOT Debbie Primary ANNETTE Marrufo [place] [id number] Insurance:MARTA BOLEYDOB: [facility] [id number] Health Number: Repository [id number]: (330 [id number] [phone] () e Date:6894-69-24QI [address] [address]AV: 08/29/2017 Secondary NOT GIVENUNK [place] Insurance:SELF PAY [facility] Number: Effective Repository Date:2017-08-29 08/19/2017 [address] [facility] ANNETTE Marrufo [place] [id number] Insurance:MARTA BOLEYDOB: [facility] [id number] Health Number: Repository [id number]: (330 [id number] [phone] () e Date:7108-06-64LU [address] [address]OS: 08/19/2017 Secondary NOT GIVENUNK [place] Insurance:SELF PAY [facility] Number: Effective Repository Date:2017-08-19 08/15/2017 DOT [facility] ANNETTE Marrufo [place] [id number] Insurance:[facility]B: [facility] [id number] Health Number: Repository [id number]: 330 [id number] [phone] () e Date:5091-42-69BI [address]CN[facility] [place] [address]KJ: 08/15/2017 Secondary NOT GIVENUNK [place] Insurance:SELF PAY [facility] Number: Effective Repository Date:2017-08-03 03/26/2017 [facility] ANNETTE Marrufo [place] [id number] Insurance:[facility]ARTA [facility]: [facility] [id number] Regional [facility] Number: Repository [id number]: [id number] [phone] e Date:0659-14-90UK 2 () [address]CNORWALK [place] [address]AN: 03/26/2017 Secondary NOT GIVENUNK [place] Insurance:SELF PAY [facility] Number: Effective Repository Date:2017-02-18
== END 2018-03-20 07:00 | disposition home or self-care (01) ==
LOC: LAB 06:26
PROVIDERS: Family Provider Internal Medicine; PCP Internal Medicine; Referring Provider Internal Medicine; Visit Provider Internal Medicine
DX: I82.5Y3 Chronic embolism and thrombosis of unspecified deep veins of proximal lower extremity, bilateral (principal)
CPT/HCPCS: 36415; 85610

== ENCOUNTER → 2018-03-25 09:36 | Outpatient (CLI) | payer MEDICARE, SELFPAY ==
[2018-03-25 08:27] VITALS: BMI 29.7
[2018-03-25 11:05] LABS: AST(SGOT) 21 U/L (15-37); Alanine Aminotransfer ALT/SGPT 25 U/L (13-56); Albumin, Serum 3.6 g/dL (3.2-5.0); Alkaline Phosphatase 101 U/L (45-117); Bilirubin, Direct 0.09 mg/dL (0.00-0.30); Cholesterol 155 mg/dL (200); Globulin 4.5 g/dL (2.2-4.2); High Density Lipoprotein 36 mg/dL; Protein, Total 8.1 g/dL (6.4-8.2); Triglycerides 270 mg/dL; Very Low Density Lipoprotein 54 mg/dL (5-40)
== END ==
PROVIDERS: Family Provider Internal Medicine; PCP Internal Medicine; Referring Provider Internal Medicine Cardiovascular Disease; Visit Provider Internal Medicine Cardiovascular Disease
DX: E78.5 Hyperlipidemia, unspecified (principal); I48.0 Paroxysmal atrial fibrillation; Z86.711 Personal history of pulmonary embolism
CPT/HCPCS: 36415; 80061; 80076

== ENCOUNTER → 2018-04-07 07:52 | Outpatient (CLI) | payer MEDICARE, SELFPAY ==
[2018-03-25 08:27] VITALS: BMI 29.7
--- NOTE | 2018-04-07 07:54 | ECHOD_ITS ---
Reason For Study: A. fib/flutter Procedure This was a 2D Doppler, Color Flow transthoracic echocardiogram. Exam performed in department. Left Ventricle Normal size and thickness. The estimated ejection fraction is 40 %. Stage 1 diastolic dysfunction. There is moderate global hypokinesis of the left ventricle. Right Ventricle Normal size and thickness. Normal systolic function. Atria The left atrium is mildly enlarged. Normal right atrium. Normal atrial septum. Mitral Valve Moderate diffuse mitral valve thickening. Moderate mitral annular calcification extending into the posterior leaflet. Mild-Moderate (1-2+) eccentric mitral valve insufficiency. Tricuspid Valve Normal tricuspid valve. Trivial tricuspid valve insufficiency. Right ventricular systolic pressure estimated to be 27 mmHg. Aortic Valve Normal aortic valve. Trisinus/trileaflet aortic valve. Pulmonic Valve The pulmonic valve is not well visualized. Great Vessels Normal aortic root. Normal arch. Normal inferior vena cava. Inferior vena cava collapse with sniff. Pericardium/Pleural No pericardial effusion. MMode/2D Measurements & Calculations LVIDd: 4.9 cm IVSd: 1.0 cm LVOT diam: 2.1 cm LVIDs: 3.9 cm LVPWd: 0.88 cm LVOT area: 3.4 cm2 RVDd: 3.5 cm FS: 21.4 % Ao root diam: 3.8 cm LAV(MOD-bp): 67.5 ml LVAd ap4: 27.4 cm2 LAV(MOD-bp) Indexed: 39.5 ml/m2 EDV(MOD-sp4): 81.1 ml LAV(MOD-sp2): 49.2 ml EDV(sp4-el): 85.0 ml LAV(MOD-sp4): 73.0 ml LVAs ap4: 20.0 cm2 ESV(MOD-sp4): 50.5 ml ESV(sp4-el): 51.3 ml EF(MOD-sp4): 37.7 % EF(sp4-el): 39.7 % SV(MOD-sp4): 30.6 ml SV(sp4-el): 33.8 ml LA A4 area: 23.8 cm2 LA dimension(2D): 4.1 cm RA A4 area: 16.5 cm2 Doppler Measurements & Calculations MV E max tono: 83.7 cm/sec Lat Peak E' Tono: 5.0 cm/sec Med Peak E' Tono: 3.2 cm/sec MV A max tono: 114.4 cm/sec E/E' lat: 16.8 E/E' med: 26.4 MV E/A: 0.73 Ao V2 max: 174.5 cm/sec LV V1 max: 114.1 cm/sec PA V2 max: 75.3 cm/sec Ao max P.2 mmHg LV V1 max P.2 mmHg CALE(V,D): 2.2 cm2 TR max tono: 235.7 cm/sec TR max P.3 mmHg Interpretation Summary The estimated ejection fraction is 40 %. Stage 1 diastolic dysfunction. There is moderate global hypokinesis of the left ventricle. The left atrium is mildly enlarged. Mild-Moderate (1-2+) eccentric mitral valve insufficiency. Trivial tricuspid valve insufficiency. Right ventricular systolic pressure estimated to be 27 mmHg. There is no comparison study available. Ordering Physician: New Orr Referring Physician: Bernardo Alfaro M.D. Performed By: Janice Tovar RDCS
== END ==
PROVIDERS: Family Provider Internal Medicine; PCP Internal Medicine; Referring Provider Internal Medicine Cardiovascular Disease; Visit Provider Internal Medicine Cardiovascular Disease
DX: I35.0 Nonrheumatic aortic (valve) stenosis (principal); I48.91 Unspecified atrial fibrillation; I48.92 Unspecified atrial flutter
CPT/HCPCS: 93306

== ENCOUNTER 2018-04-17 06:32 | Outpatient (RCR) | payer MEDICARE, SELFPAY ==
[2018-03-25 08:27] VITALS: BMI 29.7
[2018-04-17 07:29] LABS: Absolute Lymphocyte Count 2.77 X10^3/ul (0.83-4.51); Absolute Neutrophil Count 2.3 X10^3/uL (2.0-7.7); Basophil# 0.01 X10^3/uL; Basophil% 0.2 % (0-1); Eosinophil# 0.31 X10^3/uL; Eosinophils% 5.3 % (0-5); Hemoglobin 11.8 g/dl (12.0-15.0); Lymphocyte # 2.77 X10^3/ul (4.0); Lymphocyte % 47.4 % (19-41); Mean Corp Hgb Conc 31.1 g/gl (32-36); Mean Corpuscular Hgb 29.3 pg (27.0-32.0); Mean Corpuscular Volume 94.3 fL (81-99); Mean Platelet Vol. 9.3 fl (6.2-12.0); Monocyte# 0.46 X10^3/uL; Monocyte% 7.9 % (0-10); Neutrophil # 2.28 X10^3/uL (2.7-7.7); Platelet Count 225 K/mm3 (150-450); RBC Distribution Width CV 13.4 % (11.6-14.6); RBC Distribution Width SD 46.2 fl (35.1-43.9); Red Blood Count 4.03 M/mm3 (4.2-5.4); White Blood Count 5.8 K/mm3 (4.4-11.0)
[2018-04-17 07:36] LABS: International Normalized Ratio 2.3; Prothrombin Time (Protime)PT. 25.7 SECONDS (11.7-14.9)
[2018-04-17 07:39] LABS: POSITIVE COUNT NO; POSITIVE DIFFERENTIAL NO; POSITIVE MORPHOLOGY NO
== END 2018-04-17 13:39 | disposition home or self-care (01) ==
LOC: LAB 06:32
PROVIDERS: Family Provider Internal Medicine; PCP Internal Medicine; Referring Provider Internal Medicine; Visit Provider Internal Medicine
DX: I82.5Y3 Chronic embolism and thrombosis of unspecified deep veins of proximal lower extremity, bilateral (principal); M16.11 Unilateral primary osteoarthritis, right hip
CPT/HCPCS: 36415; 85025; 85610

== ENCOUNTER → 2018-04-17 09:23 | Outpatient (CLI) | payer MEDICARE, SELFPAY ==
[2018-03-25 08:27] VITALS: BMI 29.7
--- NOTE | 2018-04-17 09:25 | STEWCON_ITS ---
Reason For Study: Atrial Fibrillation Stress Results Protocol: Dobutamine Stress Echocardiogram Maximum Predicted HR: 153 bpm Target HR: 130 bpm % Maximum Predicted HR: 90 % DurationHeart Rate Stage (mm:ss) (bpm) BP Comment Baseline 68 138/91No Chest Pain; Diluted Definity 8 ML Given DSE 10 MCG 4:02 109 148/85No Chest Pain DSE 20 MCG 3:41 137 121/68No Chest Pain Recovery 95 121/77No Chest Pain Stress Duration: 7:43 mm:ss Maximum Stress HR: 137 bpm METS: 1 Baseline Echocardiogram Findings The estimated ejection fraction is 65 %. Stress Echo Wall motion Data Resting WM Intermediate WM Stress WM Resting Wall Motion Wall Motion Stress No regional wall motion No regional wall motion abnormalities noted. abnormalities noted. EKG Data Normal intervals are noted. The patient was titrated from 10 mcg to a maximum of 20 mcg of dobutamine during the stress. The maximum heart rate attained was 141 beats per minute. This was 92% of maximum predicted heart rate. During dobutamine infusion, there were no ST or T wave changes noted to suggest ischemia. No clinical angina was noted. Interpretation Summary The estimated ejection fraction is 65 %. Normal, adequate, dobutamine echocardiogram. Negative for ischemia by EKG and echocardiographic anterior. No anginal symptoms noted. Rare PVCs noted which is a nonspecific finding given dobutamine. Appropriate blood pressure response to dobutamine. Test terminated due to the attainment of target heart rate. Final LVEF is 75%. Decreased sensitivity due to poor echo windows requiring Definity enhancing agent. No complications. The study was technically difficult. Contrast injection was performed. Ordering Physician: New Orr Referring Physician: Bernardo Alfaro Performed By: Sofía Xiao, RDCS, RVT
== END ==
PROVIDERS: Family Provider Internal Medicine; PCP Internal Medicine; Referring Provider Internal Medicine Cardiovascular Disease; Visit Provider Internal Medicine Cardiovascular Disease
DX: I48.0 Paroxysmal atrial fibrillation (principal); I48.92 Unspecified atrial flutter
CPT/HCPCS: 36415; 85025; 85610; 93017; 93350; J7040; Q9957; A4216; C8928

== ENCOUNTER 2018-05-05 10:01 | Emergency (ER) | payer MEDICARE, SELFPAY ==
[2018-03-25 08:27] VITALS: BMI 29.7
[2018-05-05 10:02] VITALS: BP 102/53; PULSE 78; RESP 18; TEMP 36.6; O2SAT 95
[2018-05-05 10:30] VITALS: PULSE 73; RESP 17; O2SAT 92
--- NOTE | 2018-05-05 10:36 | ED.VIS.GEN ---
History of Present Illness Chief Complaint: General Illness Detail of Chief Complaint: Sound from urgent care for IV fluids Informant: Patient, Significant Other Onset: - - Unknown Context: - Timing: - - Unknown Quality: Patient's only complaint is dry mouth Current Severity: Mild Maximum Severity: Mild Worsened by: Unknown Relieved by: Nothing Associated Symptoms: Nothing Narrative: Patient is an elderly woman with history of type 2 diabetes. She denies increased thirst, polyuria, polydipsia or nocturia. She denies blurred vision. She denies cardiac respiratory symptoms. She denies vomiting or diarrhea. She denies dysuria, frequency, urgency or hematuria. She reports no new medication. She is on Coumadin. Prior similar symptoms: No Recent Illness/Hospitalization: No - Past Medical History (1) Asthma Status: Chronic (2) History of DVT (deep vein thrombosis) Status: Chronic Comment: Concomitant with PE (3) History of pulmonary embolus (PE) Status: Chronic Comment: Concomitant with DVT (4) Hyperlipidemia Status: Chronic (5) Nonrheumatic aortic (valve) stenosis Status: Chronic Comment: Mild (1+) per echo 08/19/2012 [facility] (6) Nonrheumatic mitral (valve) insufficiency Status: Chronic Comment: Mild (1-2+) per echo 08/19/2012 [facility] (7) Paroxysmal atrial fibrillation Status: Chronic Comment: discovered during opthalmic procedure: procedure stopped until cardiac eval done. Past Medical History - Allergies and Home Meds Allergies/Adverse Reactions: Allergies morphine Allergy (Verified 05/05/18 10:05) Unknown oxycodone HCl [From OxyContin] Allergy (Verified 05/05/18 10:05) Unknown propoxyphene HCl [From Darvon] Allergy (Verified 05/05/18 10:05) Unknown chlorhexidine Adverse Reaction (Verified 05/05/18 10:05) Rash cotton Allergy (Uncoded 05/05/18 10:05) Unknown grass Allergy (Uncoded 05/05/18 10:05) Unknown vinegar Allergy (Uncoded 05/05/18 10:05) Unknown wool Allergy (Uncoded 05/05/18 10:05) Unknown feathers Adverse Reaction (Uncoded 05/05/18 10:05) Unknown Primary Care Physician: Bernardo Alfaro MD [Primary Care Provider] - Prior records reviewed: Yes Surgical History: arthroscopy, knee, total knee arthroplasty, - - Status post Lives: Spouse/ Significant Other Smoking Status: Former smoker Alcohol: None Drugs: None - Family History Maternal Family History: Family History (Last Reviewed 03/25/18 @ 08:28 by Brenda Burks) Mother CAD (coronary artery disease) DVT (deep venous thrombosis) Hypertension Father Prostate cancer Sister Breast cancer Family History: Reports: - - no CAD Review of Systems General: Denies: Chills, Fever, Sweats Eyes: Denies: Visual changes - bilaterally, Diplopia ENT: Reports: - - Patient's only complaint is dry mouth. Denies: Bilateral ear pain, Rhinorrhea, Sore throat Cardiovascular: Denies: Chest pain, Palpitations Respiratory: Denies: Dyspnea, Cough, Dyspnea on exertion Gastrointestinal: Denies: Abdominal pain, Nausea, Vomiting, Diarrhea, Melena, Hematochezia Genitourinary: Denies: Dysuria, Hematuria, Frequency Musculoskeletal: Denies: Myalgias, Arthralgias, Back pain, Extremity Pain Skin: Denies: Rash, Wounds Neurological: Denies: Headache, Weakness, Numbness Endocrine: Denies: Polyuria, Polydipsia Hematologic: Denies: Easy bruising, Easy bleeding Physical Exam Vital Signs/Narrative: Vital Signs Temp Pulse Resp BP Pulse Ox 05/05/18 10:30 73 17 92 05/05/18 10:02 98 F 78 18 102/53 L 95 Inital Vital Signs reviewed: Yes General: Well nourished, Well developed, No Acute Distress Head: Normocephalic, Atraumatic Eyes: Perrl, EOMI. Negative for: Pale conjunctiva, Scleral icterus ENT: Moist mucous membranes, No rhinorrhea Neck: Supple, Nontender, No lymphadenopathy, No JVD Cardiovascular: Regular rate, Regular rhythm, No murmurs, Normal S1, Normal S2 Respiratory: No distress, CTA bilaterally, Chest nontender Abdomen: Soft, Nontender, Nondistended, Normal bowel sounds, No masses. Negative for: Hepatomegaly, Splenomegaly, Mass, Pulsatile mass Back: Nontender, Normal Inspection Extremities: Nontender, No edema. Negative for: Calf Tenderness Skin: Normal color, No rash Neurological: Alert, Oriented x3, Cranial nerves II-XII grossly intact, Normal Strength, Normal Sensation Psychological: Normal Mood, - - Affect is flat.. Negative for: Normal affect Diagnostic/Tx/Re-eval 05/05/18 12:55 Stool Stool Occult Blood ([facility]) - Final Laboratory Results 05/05/18 05/05/18 10:50 10:50 WBC 13.8 H RBC 2.92 L Hgb 8.5 L Hct 27.5 L MCV 94.2 MCH 29.1 MCHC 30.9 L RDW 13.5 RDW Differential 44.3 H Plt Count 441 MPV 8.1 Immature Gran % (Auto) 1.600 H Neut % (Auto) 83.6 H Lymph % (Auto) 9.5 L [place] % (Auto) 4.8 Eos % (Auto) 0.4 Baso % (Auto) 0.1 Absolute Neuts (auto) 11.6 H Absolute Lymphs (auto) 1.32 Total Counted Not Reportable Sodium 134 L Potassium 5.1 Chloride 103 Carbon Dioxide 22.0 Anion Gap 9 BUN 51 H Creatinine 1.83 H Estim Creat Clear Calc 25.76 Est GFR (MDRD) Af Amer 35 L Est GFR (MDRD) Non-Af 29 L BUN/Creatinine Ratio 27.9 H Glucose 268 H Calcium 8.7 Stool for occult blood was negative. Stool was brown in color. - Medical Decision Making CBC was obtained because of history of anemia and evaluate for worsening anemia. Basic metabolic panel was obtained to assess electrolytes and specifically renal function. Also to assess glucose since she is diabetic. Stool was heme negative. informed me that she had gross hematuria when her INR was greater than 6. This may be the cause of her anemia. ED Disposition - Plan for ED Patient: Disposition: Home or Assisted Living Diagnosis: Acute anemia, Hyperlipidemia, Nonrheumatic mitral (valve) insufficiency, Nonrheumatic tricuspid (valve) insufficiency, Paroxysmal atrial fibrillation, History of pulmonary embolus (PE), History of DVT (deep vein thrombosis), High risk medication use Instructions: ED Anemia Type Not Specified Referrals: Bernardo Alfaro MD [Primary Care Provider] - 3-5 Days
[2018-05-05 11:03] LABS: Absolute Lymphocyte Count 1.32 X10^3/ul (0.83-4.51); Absolute Neutrophil Count 11.6 X10^3/uL (2.0-7.7); Basophil# 0.02 X10^3/uL; Basophil% 0.1 % (0-1); Eosinophil# 0.05 X10^3/uL; Eosinophils% 0.4 % (0-5); Hematocrit 27.5 % (37-47); Hemoglobin 8.5 g/dl (12.0-15.0); Lymphocyte # 1.32 X10^3/ul (4.0); Lymphocyte % 9.5 % (19-41); Mean Corp Hgb Conc 30.9 g/gl (32-36); Mean Corpuscular Hgb 29.1 pg (27.0-32.0); Mean Corpuscular Volume 94.2 fL (81-99); Mean Platelet Vol. 8.1 fl (6.2-12.0); Monocyte# 0.67 X10^3/uL; Monocyte% 4.8 % (0-10); Neutrophil # 11.55 X10^3/uL (2.7-7.7); Neutrophil % 83.6 % (47-70); Platelet Count 441 K/mm3 (150-450); RBC Distribution Width CV 13.5 % (11.6-14.6); RBC Distribution Width SD 44.3 fl (35.1-43.9); Red Blood Count 2.92 M/mm3 (4.2-5.4); White Blood Count 13.8 K/mm3 (4.4-11.0)
[2018-05-05 11:07] LABS: Anion Gap 9 (5-15); BUN 51 mg/dL (7-18); BUN/Creat Ratio 27.9 RATIO (10-20); Calcium,Total 8.7 mg/dL (8.5-10.1); Chloride 103 mmol/L (98-107); Creatinine, Serum 1.83 mg/dL (0.55-1.02); EST Glomerular Filtration Rate 29 mL/min (>60); Est Glom Filt Rate - Afr Amer 35 mL/min (>60); Estimated Creatinine Clearance 25.76 ml/min; Glucose 268 mg/dL (74-106); POSITIVE COUNT NO; POSITIVE DIFFERENTIAL NO; POSITIVE MORPHOLOGY NO; Potassium 5.1 mmol/L (3.5-5.1); Sodium Level 134 mmol/L (136-145)
--- NOTE | 2018-05-05 13:04 | ED.RN ---
this RN at bedside during rectal exam preformed by Dr. Talley, occult stool obtained and sent to lab. Pt tolerated well.
[2018-05-05 14:48] VITALS: BP 110/62; PULSE 72; RESP 16; TEMP 36.9; O2SAT 96
== END 2018-05-05 14:52 | disposition home or self-care (01) ==
PROVIDERS: Emergency Provider Emergency Medicine; Family Provider Internal Medicine; PCP Internal Medicine
DX: D64.9 Anemia, unspecified (principal); E78.5 Hyperlipidemia, unspecified; I48.0 Paroxysmal atrial fibrillation; J45.909 Unspecified asthma, uncomplicated; Z86.711 Personal history of pulmonary embolism; Z86.718 Personal history of other venous thrombosis and embolism; Z87.891 Personal history of nicotine dependence; I35.0 Nonrheumatic aortic (valve) stenosis; I34.0 Nonrheumatic mitral (valve) insufficiency; E11.9 Type 2 diabetes mellitus without complications; Z79.01 Long term (current) use of anticoagulants
CPT/HCPCS: 36415; 80048; 82274; 85025; 85610; 99283; A4216

== ENCOUNTER 2018-05-12 06:24 | Outpatient (RCR) | payer MEDICARE, SELFPAY ==
[2018-03-25 08:27] VITALS: BMI 29.7
[2018-05-02 08:06] LABS: International Normalized Ratio 6.2
[2018-05-05 08:34] LABS: International Normalized Ratio 2.7; Prothrombin Time (Protime)PT. 29.1 SECONDS (11.7-14.9)
[2018-05-12 07:33] LABS: Absolute Lymphocyte Count 1.88 X10^3/ul (0.83-4.51); Absolute Neutrophil Count 2.9 X10^3/uL (2.0-7.7); Basophil# 0.02 X10^3/uL; Basophil% 0.4 % (0-1); Eosinophil# 0.25 X10^3/uL; Eosinophils% 4.4 % (0-5); Hematocrit 29.3 % (37-47); Hemoglobin 8.6 g/dl (12.0-15.0); Lymphocyte # 1.88 X10^3/ul (4.0); Lymphocyte % 33.3 % (19-41); Mean Corp Hgb Conc 29.4 g/gl (32-36); Mean Corpuscular Volume 95.4 fL (81-99); Mean Platelet Vol. 8.5 fl (6.2-12.0); Monocyte% 10.6 % (0-10); Neutrophil # 2.87 X10^3/uL (2.7-7.7); Neutrophil % 50.8 % (47-70); Platelet Count 372 K/mm3 (150-450); RBC Distribution Width CV 13.5 % (11.6-14.6); RBC Distribution Width SD 44.4 fl (35.1-43.9); Red Blood Count 3.07 M/mm3 (4.2-5.4); White Blood Count 5.7 K/mm3 (4.4-11.0)
[2018-05-12 07:35] LABS: POSITIVE COUNT NO; POSITIVE DIFFERENTIAL NO; POSITIVE MORPHOLOGY NO
[2018-05-12 07:46] LABS: Prothrombin Time (Protime)PT. 38.1 SECONDS (11.7-14.9)
[2018-05-12 08:06] LABS: Anion Gap 5 (5-15); BUN 28 mg/dL (7-18); BUN/Creat Ratio 20.4 RATIO (10-20); Chloride 107 mmol/L (98-107); Creatinine, Serum 1.37 mg/dL (0.55-1.02); EST Glomerular Filtration Rate 41 mL/min (>60); Est Glom Filt Rate - Afr Amer 49 mL/min (>60); Ferritin 208 ng/mL (8-252); Glucose 130 mg/dL (74-106); Iron 41 ug/dL (50-170); Iron Binding Capacity,Total 209 ug/dL (250-450); Potassium 4.5 mmol/L (3.5-5.1); Sodium Level 138 mmol/L (136-145)
[2018-05-12 08:10] LABS: International Normalized Ratio 3.8
== END 2018-05-12 07:24 | disposition home or self-care (01) ==
LOC: LAB 06:24
PROVIDERS: Family Provider Internal Medicine; PCP Internal Medicine; Referring Provider Internal Medicine; Visit Provider Internal Medicine
DX: I82.5Y3 Chronic embolism and thrombosis of unspecified deep veins of proximal lower extremity, bilateral (principal); N28.9 Disorder of kidney and ureter, unspecified; D64.9 Anemia, unspecified; Z79.01 Long term (current) use of anticoagulants
CPT/HCPCS: 36415; 80048; 82728; 83540; 83550; 85025; 85610

== ENCOUNTER → 2018-05-29 08:00 | Outpatient (CLI) | payer MEDICARE, SELFPAY ==
[2018-03-25 08:27] VITALS: BMI 29.7
[2018-05-16 09:38] VITALS: BMI 29.7
--- NOTE | 2018-05-26 12:52 | HP.PCM_ITS ---
History and Physical DATE OF SURGERY: 06/11/2018 SCHEDULED PROCEDURE: right total hip arthroplasty HISTORY OF PRESENT ILLNESS: This is a 67-year-old female who is been having ongoing pain in her right hip for the past 6 months. Pain is a 9/10 with activity. Pain is been constant. Pain is increased with sitting, walking, and leaning over. Patient does have start up pain. She has difficult time with activities of daily living including housework and shopping. Patient does complain of right groin pain. Patient has tripped/stumbled secondary to her pain in the right hip. Patient has tried conservative measures consisting of ice, heat, elevation with minimal relief. She has tried home exercises with no relief in pain. Patient denies previous surgery on her right hip. She has been using crutches and walker. Patient has a history of previous back surgeries. Patient also had previous blood clots after both back surgeries. She has medical history pertinent for paroxysmal atrial fibrillation, type 2 diabetes mellitus, depression, anxiety. 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 Patient does take Coumadin and aspirin. She is also on pain management taking tramadol. She currently denies any chest pain, shortness of breath, fevers chills, recent infections. Patient did discuss with Dr. Roberto Blevins all treatment options and wishes to proceed with a right total hip arthroplasty. REVIEW OF SYSTEMS: ROS: Const: Denies anorexia, anxiety, change in appetite, fever and weight change,hard of hearing, and vision problems. CV: Reports heart murmur, but denies chest pain, irregular heartbeat and peripheral vascular disease. Resp: Denies asthma, cough, pneumonia, sleep apnea, shortness of breath, tuberculosis and wheezing. GI: Denies constipation, diarrhea, heartburn, nausea, bloody stools and vomiting, and difficulty swallowing. : Denies incontinence. Musculo: Reports leg swelling and trouble walking and limp ( in lft knee ) , but denies weakness . Skin: Denies Raynaud's, history of shingles and tattoo. Neuro: Denies ambulatory dysfunction, dizziness, numbness/tingling and tremor. Psych: Denies anxiety, depression, insomnia, mental illness and stress. Trae/Lymph: Reports bleeding/bruising tendency, but denies anemia and past transfusion. Reviewed, no changes. PAST MEDICAL HISTORY: Advance Care Plan: No Advance Directives Effective Date: 01/06/2018 PMH: Medical Problems: Arthritis, History Of Phlebitis, Heart Murmur, Depression, Anxiety, Blood Clots, Hypercholesterolemia, Diabetes, atrial fibulation Accidents: Fracture - Arm and Ankle Surgical Hx: Hysterectomy Arthroscopy - LT KNEE Knee Replacement - (07/23/2006) [facility] Back Surgery - SEVERAL YEARS AGO RT Thumb Surgery LT ORIF Patella - (07/29/2007) dr heredia at [facility] Knee Arthroscopy RT - (02/04/2009) PATRICIA @ [facility] brain aneurysm RT TKR - (03/28/2010) ZACH @ [facility] LT Thumb Surgery - (09/26/2010) DR. SMITH Anesthesia Complications: Vomiting, Nausea Assistive Devices: Glasses, Dentures Reviewed and updated. 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 Personal Habits: Smoking: Patient has never smoked.Cigarette Use: Never.Smokeless Tobacco: Never Used Smokeless Tobacco.E-Cigarette Use: Never used.Alcohol: Denies use.Drug Use: Denies Use.Enjoy Exercising: Exercises 1-3 x/month. Reviewed, no changes. VITALS: Ht: 62 Wt: 171lb Wt k.566 BMI: 31.3 BP: 120/74 Pulse: 68 Resp: 16 T: 98.0 T: 36.7C ALLERGIES: Morphine Darvon MEDICATIONS: Voltaren 1 % apply to affected area up to four times per day, Albuterol Inhalation 90 mcg/Dose 1 puff PO qid, Advair Diskus 100mcg;50mcg 1 puff bid, Multivitamin 1 po qday, Neurontin 800 mg 1 cap PO tid, Coumadin 5 mg 1 tab PO daily, Premarin 0.625 mg/gm aad, Simvastatin 20 mg 1 by mouth every day, Oxybutynin Chloride ER 15 mg 1 by mouth every day, Mounika-C 1000mg 1 tab PO daily, Xyzal Allergy 24HR 5 mg 1 tab PO daily, Loperamide HCL 2 mg 1 cap PO qid, Omeprazole 20 mg 1 cap PO daily, Calcium 500 + D 500-125 MG-Unit 1 tab PO daily, Fish Oil 1000 mg 3 caps PO once daily, Tramadol HCL 50 mg 1 tab PO bid, Prednisone 10 mg taper dose, Metformin HCL 500 mg 1 tab PO daily, Gabapentin 800 mg 1po qday, Metoprolol Tartrate 25 mg 1po bid, Iron 65 MG 1po bid, Aspirin 81 mg 1 by mouth every day PRE-OP EXAM: General appearance:NORMAL Other: Eyes: Conjunctivae and lids: NORMAL Pupils: ERR Ears, Nose, Mouth, and Throat: NORMAL Other: Inspection of lips, teeth and gums: NORMAL Other: Neck: Examination of neck: no masses noted. Respiratory: Assessment of respiratory effort: NORMAL Other: Auscultation of lungs: clear to auscultation no wheezes, rhonchi or rales. Cardiovascular: Auscultation of heart: regular rate and rhythm, positive systolic murmur. Gastrointestinal: Exam of abdomen: soft, nontender, nondistended bowel sounds present. PHYSICAL EXAMINATION: Patient walks with an antalgic gait. She has increased pain with range of motion of the right hip including internal and external rotation. She has flexion to 90, internal rotation 5, external rotation 15. Sensation intact to light touch. Neurovascularly intact. Leg lengths are equal. IMAGING STUDIES: Previous x-rays of the right hip reveal joint space narrowing, subchondral sclerosis, osteophyte formation consistent with severe osteoarthritis. There is also evidence of previous lower lumbar fusion. IMPRESSION: 1. Right hip osteoarthritis 2. Type 2 diabetes mellitus 3. Paroxysmal atrial fibrillation 4. Anxiety/depression 5. History of blood clots from 2 previous back surgeries 6. Previous lumbar fusion 7. Hypercholesterolemia PLAN: Dr. Roberto Blevins did discuss and review with the patient all treatment options including surgical versus nonsurgical options. Patient does wish to proceed with the above-stated procedure. Potential risks, benefits, and complications of the procedure were discussed in detail including but not limited to , infection, nerve and blood vessel damage, persistent pain, numbness, tingling, paresthesias, blood clot, pulmonary embolism, and requirement for possible further surgery. The patient expressed full understanding and has no further questions for the doctor. Patient does agree to proceed with the above-stated p rocedure and has signed the surgery consent form. 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 We'll also follow recommendation for stopping the Coumadin and aspirin prior to surgery. This dictation was created using voice recognition software. Phonetic and/or grammatical errors may exist.. ___ I have re-examined the patient. There are no clinical changes since date of exam. ___ See progress notes for changes. ___ Dictated on admission Date: Time: Signature:
[2018-05-29 08:28] VITALS: BP 125/76; PULSE 78; RESP 17; TEMP 36.7; O2SAT 97; BMI 31.6
[2018-05-29 10:33] LABS: Absolute Lymphocyte Count 2.45 X10^3/ul (0.83-4.51); Absolute Neutrophil Count 2.9 X10^3/uL (2.0-7.7); Basophil# 0.02 X10^3/uL; Basophil% 0.3 % (0-1); Eosinophil# 0.21 X10^3/uL; Eosinophils% 3.3 % (0-5); Hematocrit 27.3 % (37-47); Hemoglobin 8.3 g/dl (12.0-15.0); Lymphocyte # 2.45 X10^3/ul (4.0); Lymphocyte % 38.9 % (19-41); Mean Corp Hgb Conc 30.4 g/gl (32-36); Mean Corpuscular Hgb 27.8 pg (27.0-32.0); Mean Corpuscular Volume 91.3 fL (81-99); Mean Platelet Vol. 8.3 fl (6.2-12.0); Monocyte# 0.66 X10^3/uL; Monocyte% 10.5 % (0-10); Neutrophil # 2.93 X10^3/uL (2.7-7.7); Neutrophil % 46.5 % (47-70); Platelet Count 298 K/mm3 (150-450); RBC Distribution Width SD 46.2 fl (35.1-43.9); Red Blood Count 2.99 M/mm3 (4.2-5.4); White Blood Count 6.3 K/mm3 (4.4-11.0)
[2018-05-29 10:34] LABS: POSITIVE COUNT NO; POSITIVE DIFFERENTIAL NO; POSITIVE MORPHOLOGY NO
[2018-05-29 11:16] LABS: Anion Gap 6 (5-15); BUN 25 mg/dL (7-18); Calcium,Total 9.2 mg/dL (8.5-10.1); Chloride 103 mmol/L (98-107); Creatinine, Serum 1.47 mg/dL (0.55-1.02); EST Glomerular Filtration Rate 38 mL/min (>60); Est Glom Filt Rate - Afr Amer 46 mL/min (>60); Estimated Creatinine Clearance 29.37 ml/min; Glucose 132 mg/dL (74-106); Potassium 4.3 mmol/L (3.5-5.1); Sodium Level 138 mmol/L (136-145)
[2018-05-29 11:54] LABS: Hemoglobin A1c 7.6 % (4.2-6.3)
== END ==
PROVIDERS: Family Provider Internal Medicine; PCP Internal Medicine; Referring Provider Specialist; Visit Provider Specialist
DX: M16.11 Unilateral primary osteoarthritis, right hip (principal); E11.9 Type 2 diabetes mellitus without complications; I48.0 Paroxysmal atrial fibrillation; F32.9 Major depressive disorder, single episode, unspecified; F41.9 Anxiety disorder, unspecified; E78.00 Pure hypercholesterolemia, unspecified; Z98.1 Arthrodesis status; Z86.711 Personal history of pulmonary embolism
CPT/HCPCS: 80048; 83036; 85025; 87077; 87081

== ENCOUNTER 2018-06-12 06:25 | Outpatient (RCR) | payer MEDICARE, SELFPAY ==
[2018-05-16 09:38] VITALS: BMI 29.7
[2018-05-19 08:56] LABS: International Normalized Ratio 4.7
[2018-05-22 08:41] LABS: International Normalized Ratio 2.1; Prothrombin Time (Protime)PT. 23.9 SECONDS (11.7-14.9)
[2018-05-29 10:41] LABS: International Normalized Ratio 1.9
[2018-06-12 08:12] LABS: International Normalized Ratio 2.6
== END 2018-06-17 16:00 | disposition home or self-care (01) ==
LOC: LAB 06:25
PROVIDERS: Internal Medicine; Family Provider Internal Medicine; PCP Internal Medicine; Referring Provider Internal Medicine; Visit Provider Internal Medicine
DX: I82.5Y3 Chronic embolism and thrombosis of unspecified deep veins of proximal lower extremity, bilateral (principal)
CPT/HCPCS: 36415; 85610

== ENCOUNTER → 2018-06-16 11:08 | Outpatient (CLI) | payer MEDICARE, SELFPAY ==
[2018-06-16 12:08] LABS: International Normalized Ratio 2.5; Prothrombin Time (Protime)PT. 27.3 SECONDS (11.7-14.9)
== END ==
PROVIDERS: Family Provider Internal Medicine; PCP Internal Medicine; Referring Provider Internal Medicine Hematology & Oncology; Visit Provider Internal Medicine Hematology & Oncology
DX: D50.0 Iron deficiency anemia secondary to blood loss (chronic) (principal); I48.92 Unspecified atrial flutter
CPT/HCPCS: 85610

== ENCOUNTER 2018-07-17 06:23 | Outpatient (RCR) | payer MEDICARE, SELFPAY ==
[2018-06-26 07:09] LABS: International Normalized Ratio 2.7; Prothrombin Time (Protime)PT. 29.1 SECONDS (11.7-14.9)
[2018-07-17 07:45] LABS: International Normalized Ratio 2.5
== END 2018-07-17 08:00 | disposition home or self-care (01) ==
LOC: LAB 06:23
PROVIDERS: Family Provider Internal Medicine; PCP Internal Medicine; Referring Provider Internal Medicine; Visit Provider Internal Medicine
DX: I82.5Y3 Chronic embolism and thrombosis of unspecified deep veins of proximal lower extremity, bilateral (principal)
CPT/HCPCS: 36415; 85610

== ENCOUNTER 2018-08-14 06:19 | Outpatient (RCR) | payer MEDICARE, SELFPAY ==
[2018-08-14 07:56] LABS: International Normalized Ratio 1.8; Prothrombin Time (Protime)PT. 21.1 SECONDS (11.7-14.9)
== END 2018-08-14 07:00 | disposition home or self-care (01) ==
LOC: LAB 06:19
PROVIDERS: Family Provider Internal Medicine; PCP Internal Medicine; Referring Provider Internal Medicine; Visit Provider Internal Medicine
DX: I48.92 Unspecified atrial flutter (principal); I82.5Y3 Chronic embolism and thrombosis of unspecified deep veins of proximal lower extremity, bilateral
CPT/HCPCS: 36415; 85610

== ENCOUNTER 2018-09-11 06:07 | Outpatient (RCR) | payer MEDICARE, SELFPAY ==
[2018-08-28 07:18] LABS: International Normalized Ratio 1.8; Prothrombin Time (Protime)PT. 20.7 SECONDS (11.7-14.9)
[2018-09-11 07:57] LABS: International Normalized Ratio 2.3; Prothrombin Time (Protime)PT. 25.3 SECONDS (11.7-14.9)
== END 2018-09-17 17:34 | disposition home or self-care (01) ==
LOC: LAB 06:07
PROVIDERS: Family Provider Internal Medicine; PCP Internal Medicine; Referring Provider Internal Medicine; Visit Provider Internal Medicine
DX: I48.92 Unspecified atrial flutter (principal); I82.5Y3 Chronic embolism and thrombosis of unspecified deep veins of proximal lower extremity, bilateral
CPT/HCPCS: 36415; 85610

== ENCOUNTER 2018-09-17 09:32 | Inpatient (IN) | payer MEDICARE, SELFPAY ==
[2018-09-04 15:31] VITALS: BP 121/84; PULSE 68; RESP 17; TEMP 36.6; O2SAT 97; BMI 30.6
--- NOTE | 2018-09-04 15:59 | SDCEKG_ITS ---
Test Reason : Blood Pressure : / mmHG Vent. Rate : 065 BPM Atrial Rate : 065 BPM P-R Int : 206 ms QRS Dur : 082 ms QT Int : 404 ms P-R-T Axes : 022 010 029 degrees QTc Int : 420 ms Normal sinus rhythm Normal ECG Confirmed by BRYN TORRES, CARMELITA ([id number]), publishing editor EMMA MERCER ([id number] on 09/12/2018 11:22:38 AM Referred By: Roberto Blevins Confirmed By:LADY CLEMENTE MD
[2018-09-04 16:25] LABS: Absolute Lymphocyte Count 2.48 X10^3/uL (0.83-4.51); Absolute Neutrophil Count 2.2 X10^3/uL (2.0-7.7); Basophil# 0.03 X10^3/uL; Basophil% 0.5 % (0-1); Eosinophil# 0.47 X10^3/uL; Eosinophils% 8.1 % (0-5); Hematocrit 32.1 % (37-47); Hemoglobin 10.1 g/dL (12.0-15.0); Lymphocyte # 2.48 X10^3/ul (4.0); Lymphocyte % 42.9 % (19-41); Mean Corp Hgb Conc 31.5 g/dL (32-36); Mean Corpuscular Volume 88.9 fL (81-99); Mean Platelet Vol. 8.7 fl (6.2-12.0); Monocyte# 0.57 X10^3/uL; Monocyte% 9.9 % (0-10); NRBC Flagged by Analyzer 0 % (0-5); Neutrophil # 2.21 X10^3/uL (2.7-7.7); Neutrophil % 38.3 % (47-70); Platelet Count 230 K/mm3 (150-450); RBC Distribution Width CV 14.1 % (11.6-14.6); RBC Distribution Width SD 45.8 fl (35.1-43.9); Red Blood Count 3.61 M/mm3 (4.2-5.4); White Blood Count 5.8 K/mm3 (4.4-11.0)
[2018-09-04 16:51] LABS: Anion Gap 7 (5-15); BUN 42 mg/dL (7-18); BUN/Creat Ratio 29.2 RATIO (10-20); Calcium,Total 9.7 mg/dL (8.5-10.1); Chloride 108 mmol/L (98-107); Creatinine, Serum 1.44 mg/dL (0.55-1.02); EST Glomerular Filtration Rate 39 mL/min (>60); Est Glom Filt Rate - Afr Amer 47 mL/min (>60); Estimated Creatinine Clearance 31.36 ml/min; Glucose 106 mg/dL (74-106); Potassium 5.1 mmol/L (3.5-5.1); Sodium Level 141 mmol/L (136-145)
[2018-09-04 17:11] LABS: Hemoglobin A1c 7.1 % (4.2-6.3)
--- NOTE | 2018-09-12 12:47 | CASEMGMT ---
Call placed to patient to discuss discharge needs after upcoming surgery. Patient unsure if she will discharge to home, depends on her mobility. Patient reports she does have outpatient physical therapy set up at [facility]. will assist with transportation. Patient has a walker, cane, grab bars, toilet riser, BSC, and shower chair. There is a bedroom and bathroom on the 1st level of the home. There's 1 step to enter home from garage. Patient reports she prefers [facility] on discharge, and not having scripts sent to [facility]. Patient also states she prefers an early surgery time, diabetic and can't wait too long or my mouth gets dry. Patient questioning specific medications and what she feels she should take, what she was told to not take - encouraged patient to read any papers from pre-admission testing and if a specific medication is not addressed on PAT paperwork, contact [facility] surgery department or physicians office prior to day of surgery. Informed patient that RN-CM would follow up with patient after surgery to further assist with discharge planning needs. Cely Doherty LPN Clinical Support
[2018-09-17] VITALS (22 sets, daily range): BP systolic 114–135; BP diastolic 61–86; PULSE 50–78; RESP 10–20; TEMP 36–36.4; O2SAT 95–100; BMI 30.6
--- NOTE | 2018-09-17 06:50 | RAD_ITS ---
STUDY: X-RAY - PELVIS AND RIGHT HIP REASON FOR EXAM: Female, 67 years old. Postop. TECHNIQUE: 2 views of the pelvis and hip. COMPARISON: Intraoperative fluoroscopic spot films of the pelvis and left hip 1311 hours. FINDINGS: There is a non-specific bowel gas pattern. Normal visualized soft tissue structures. Metal screws of prior posterior fixation lower lumbar spine seen at the top of the field of view. Normal visualized bilateral iliac wings, sacroiliac joints, and sacrum. Normal bilateral superior and inferior pubic rami. Normal pubic symphysis. Normal bilateral ischial tuberosities. Again seen is right total hip arthroplasty. The acetabular and femoral components of a metal bipolar hip prosthesis appear well seated, and in anatomic alignment. Gas lucency lateral to the hip consistent with recent surgery. RAD/Hip Min 2 Views (Portable) IMPRESSION: Status post right total hip arthroplasty. Electronically Signed: Estuardo Herzog MD at 14:49 EDT , Service support ,
[2018-09-17 10:00] LABS: Prothrombin Time Fingerstick 14.8 SEC (11.9-14.4)
[2018-09-17 10:00] LABS: Bedside Glucose 170 mg/dL (70-110)
[2018-09-17] MEDS: Gabapentin 600 MG Tablet PO (10:07)
[2018-09-17] MEDS: Acetaminophen 500 MG Tablet 1000 MG PO ×2 (10:07→21:36)
[2018-09-17] MEDS: Lactated Ringers 1,000 ML 999 ML IV (10:12)
[2018-09-17] MEDS: Magnesium Sulfate 4gm/100mL 4 GM/100 ML IV.SOLN. IV (10:12)
[2018-09-17] MEDS: Scopolamine 1mg/72hr Patch 1 PATCH TD (10:30)
--- NOTE | 2018-09-17 11:45 | RAD_ITS ---
STUDY: X-RAY - PELVIS AND RIGHT HIP REASON FOR EXAM: Female, 67 years old. Right anterior hip replacement. TECHNIQUE: Fluoroscopic assistance was provided to Dr. Blevins. 3 fluoroscopic spot views of the pelvis and hip are submitted. FLUOROSCOPY TIME: 3.7 seconds. COMPARISON: CT abdomen and pelvis November 20, 2013 FINDINGS: There is a non-specific bowel gas pattern. Normal visualized soft tissue structures. Metal screws of prior posterior fixation lower lumbar spine seen at the top of the field of view. Normal visualized iliac wings, sacroiliac joints, and sacrum. Normal bilateral superior and inferior pubic rami. Normal pubic symphysis. Normal bilateral ischial tuberosities. The patient has undergone right total hip arthroplasty. Following resection of the femoral head and neck, a metal bipolar hip prosthesis was placed. The acetabular and femoral components appear well seated, and in anatomic alignment. Gas lucency lateral to the hip consistent with recent surgery. RAD/Hip 1 view with Pelvis IMPRESSION: Status post right total hip arthroplasty. Electronically Signed: Estuardo Herzog MD at 14:24 EDT , Service support ,
[2018-09-17] MEDS: Cefazolin 2 GM in 0.9% Normal Saline 100 ML IV (11:47)
--- NOTE | 2018-09-17 13:26 | OP.PCM_ITS ---
Report of Operation Date of Procedure: 09/17/18 Pre-Operative Diagnosis: Right hip primary osteoarthritis Post-Operative Diagnosis: Right hip primary osteoarthritis Surgery/Procedure Performed:: Right hip minimally invasive direct anterior total hip replacement Description of Surgical Findings:: Stable hip equal leg lengths client care manager: Nnamdi Berg Type of Anesthesia:: General Anesthesiologist: Edward English Special Medications: 2 g Ancef, 1 g TXA at incision, 1 g TXA closure, 10 mg Decadron, joint cocktail (5 mg Duramorph, 30 mL of 0.5% Ropivicaine, 1000 units of epinephrine, 30 mg of Toradol) Specimen's removed: Bony cuts Estimated Blood Loss (mL): 350 Fluids Replaced: 1000 mL crystalloid Description of Procedure: Components used: 1. Accolade 2 Bert femoral stem size 3 127? 2. [place] trident 2 acetabular shell size 48 mm 3. [place] X3 polyethylene D 4. [place] Biolox delta 36mm, 0mm femoral head Brief history operative indications: 67 yo F who failed conservative measures for their hip osteoarthritis. X-rays were consistent with osteoarthritis including joint space narrowing, osteophyte formation and subchondral cysts. Total hip replacement was discussed with the patient with risks and benefits including but not limited to blood loss, DVTs, PEs, neurovascular damage, dislocation, general risks of anesthesia including loss of life. Patient demonstrated an understanding medical clearance is obtained the patient was consented for surgery. Procedure: On the date of procedure the patient's R hip was marked in the preoperative area. Patient was then taken back to the operating room where anesthesia assu med control of the C-spine and airway and administered anesthetic. Patient was transferred to the operating table and placed in the supine position. The hips were placed at the break of the bed and a sacral bump was placed. The R lower extremity was then prepped out in a sterile fashion using chlorhexidine while the surgeon scrubbed. The PA was vital in the positioning of the patient. Upon reentering the room the R lower extremity was draped in the standard orthopedic fashion and the incision was marked. A timeout was called and everyone agreed upon the side, the site, the procedure be performed, antibody given, and patient's identity. At this time incision was made through skin, subcutaneous tissue, and fat down to fascia. The fascia was then incised and the TFL was retracted laterally. A retractor was placed on the lateral border of the femoral neck. Attention was directed to the inferior portion of the approach and all crossing vessels were identified and appropriately coagulated. A retractor was then placed on the medial portion of the femoral neck. The anterior capsule was then cleared of all soft tissue and then H shaped capsulotomy was made. The retractors were then placed inside the capsule. The femoral neck was identified and a cleanup cut was made. At this time a power corkscrew was used to remove the femoral head. Attention was then turned toward the acetabulum where the soft tissues were appropriately retracted and the acetabulum was sequentially reamed to 48 mm. A 48 mm cup was then selected and impacted into place. Acetabular liner was impac gene into place and locking mechanism was verified. The position of the acetabular cup was then verified under live fluoroscopy. Attention was then turned to the femur. Soft tissue releases on the medial and lateral femoral neck were appropriately done, the leg was externally rotated and lateralized. A Batres retractor was placed medially and proximally to the greater trochanter this allowed appropriate visualization and exposure of the femoral canal. Rongeour was then used to remove excess lateral bone. A canal finder and entry broach were used to open the proximal canal. Once we verified we were down the femoral canal we subsequently broached up to a size 3 femur. The appropriate neck was placed in the previously selected head was trialed with a 0 mm neck. Traction was pulled and the hip was reduced with internal rotation. Once it was appropriately reduced and stability was checked. There was minimal shuck, equal leg lengths and appropriate stability with hyperextension and external rotation as well as with 90? flexion and internal rotation. Fluoroscopy was then also used to verify the position of the components and leg lengths using the contralateral side for comparison. The trial components were then dislocated the proximal femur was again exposed and the components were removed from the wound. The final components were verified and opened. The wound was copiously irrigated out with normal saline. The acetabulum was checked for any residual debris. The final components were placed and impacted. Traction and internal rotation were again used to reduce the hip. After adequate reduction the hip remained stable, but to improve stability the hip was again dislocated acetabular component was exposed and the rim impacted was used to slightly give the patient more retroversion. After this was done hip was again reduced and her stability was better. She had appropriate leg lengths. The final components were once again checked with live fluoroscopy and were found to be satisfactory. The wound was then copiously irrigated with normal saline once more, and hemostasis was obtained. Closure was then done using #1 Vicryl runner to close the fascia. A 2-0 vicryl interuppted sutures were used to close the subcutaneous skin. A 3-0 Monocryl and Steri-Strips were used for final skin closure. A Silverlon dressing was placed. Patient was awakened by anesthesia and transferred to the [facility]. Patient was then transferred to the PACU for recovery. Postoperative plan: Patient will get 24 hours postop antibiotics. Patient will get in-house physi rafi therapy and will be weight-bear as tolerated. Patient will follow up in office in 2 weeks for a wound check and x-rays. During the course of the procedure the physician trust administrative assistant played a vital role. His intimate knowledge of my steps in the procedure aided in safe and expedient completion of the procedure. The PA played a vital rolls in positioning particularly in obtaining the appropriate positioning of the sacral bump. The PA was also vital in the retraction of soft tissues during the exposure and especially the femoral work as this is a vital part of the procedure to prevent complications and fractures. The PA was also vital and protecting soft tissues during times of bony cuts and reaming. He also played a vital role in closure with my direct supervision. The PA was also important during reduction and dislocation of the joint and trials intraoperatively. Grafts/Implants Used: [place] - Complications No intraoperative complications - Admit VTE Documentation VTE Present on Admission: No VTE Mechan Device Prophylaxis: SCD's, Thigh High GENE Hose VTE Pharm Prophylaxis ordered?: Yes
[2018-09-17] MEDS: Lactated Ringers 1,000 ML 125 ML IV ×2 (14:25→18:09)
--- NOTE | 2018-09-17 16:51 | PCM.PROGNOTE ---
<Pedro Montoya - Last Filed: 09/17/18 16:51> Subjective: Consult for medical management: This is a 67 year old with pmhx of osteoarthritis, hx of DVTs on coumadin, hx of asthma and chronic hypoxic respiratory failure on nightly O2, hx of DMt2, CKDIII, chronic anemia, who underwent Right total hip with Dr. Blevins today as she has failed conservative management of chronic right hip pain. She is recovering well so far. She remains mildly lethargic and loopy. She denies SOB, cough, nausea, vomiting, numbness/tingling in the RLE. She has no fever/chills. She has not eaten yet. She has 4/10 pain in her right hip. - Physical Exam General: Alert, Oriented x3, Cooperative, Lethargic HEENT: Atraumatic, PERRLA, EOMI, Normocephalic Neck: Supple, No JVD, Negative Carotid Bruits Lungs: Clear to auscultation, Normal air movement Cardiovascular: Regular rate, No murmurs Abdomen: Bowel Sounds Present, Soft, Non Tender Extremities: No edema, Capillary Refill Less than 3 Seconds Skin: No rashes, No breakdown Musculoskeletal: No Tenderness to Palpation of Joints or Extremities Neurological: Cranial nerves II-XII grossly intact Psych/Mental Status: Normal Affect, Appropriate, Alert and oriented to time, place, person, mood and affect Vital Signs Temp Pulse Resp BP Pulse Ox 96.8 F L 50 L 14 135/71 H 95 09/17/18 15:38 09/17/18 15:38 09/17/18 15:38 09/17/18 15:38 09/17/18 15:50 Oxygen Flow Rate (L/min) 2 Oxygen Delivery Method Venturi Mask Weight: 172 lb 13.478 oz Body Mass Index (BMI) 30.6 Intake and Output for Last 24 Hours 09/15/18 09/16/18 09/17/18 23:59 23:59 23:59 Intake Total 1100 / 1100 Balance 1100 / 1100 Laboratory Tests Past 24 Hrs 09/17/18 09:52 POC PT 14.8 H INR 1.20 POC Glucose 09/17/18 09:51 POC Glucose 170 H Medical Necessity - Tobacco Use Smoking Status: Former smoker Assessment/Plan All Active Problems (Last Reviewed 03/25/18 @ 08:28 by Brenda Burks) Syncope (Resolved) 1. Osteoarthritis right hip - s/p right total hip per Dr. Blevins, POD#0. Pain 4/10. Otherwise doing well. Plan is for warfarin for DVT ppx as she has hx DVTs and is on this as an outpatient. Received periop cefazolin. On supplements. 2. Chronic hypoxic respiratory failure reportedly 2/2 asthma - no wheezing, no SOB. no SOB. PRN aerosols. Encourage IS. Baseline o2 only used at night. She does not have a medical records administrator. She denies hx of NELSON. 3. CKDIII - does not appear to be significantly above basleine - avoid neprhotoxins. Trend BMP. 4. DMt2 with obesity - metformin, SSI. A1C 7.1: fair control. hold metformin if renal function declines. 5. Hx DVT - outpatient coumadin. Consider bridging with lovenox tomorrow if INR fails to rise quickly. 6. Chronic normocytic anemia - does not appear to be below baseline Thank you for the opportunity to participate in the care of this patient. This patient was seen by Pedro Montoya PA-C under the supervision of Dr. Nazario. <Diana Nazario - Last Filed: 09/18/18 14:22> - Physical Exam Vital Signs Temp Pulse Resp BP Pulse Ox 97.2 F L 66 16 133/79 H 96 09/18/18 09:00 09/18/18 09:00 09/18/18 09:00 09/18/18 09:00 09/18/18 09:00 Oxygen Flow Rate (L/min) 2 Oxygen Delivery Method Room Air Weight: 80.5 kg Body Mass Index (BMI) 30.6 Intake and Output for Last 24 Hours 09/16/18 09/17/18 09/18/18 23:59 23:59 23:59 Intake Total 2866 / 2866 774 / 774 Output Total 325 / 325 800 / 800 Balance 2541 / 2541 -26 / -26 Laboratory Tests Past 24 Hrs 09/17/18 09/17/18 09/18/18 17:55 17:55 04:10 WBC 7.8 7.0 RBC 2.84 L 2.83 L Hgb 8.0 L 7.9 L Hct 25.8 L 25.2 L MCV 90.8 89.0 MCH 28.2 27.9 MCHC 31.0 L 31.3 L RDW Std Deviation 48.2 H 46.5 H RDW Coeff of Mahin 14.5 14.3 Plt Count 175 177 MPV 9.0 9.2 Immature Gran % (Auto) 0.800 Neut % (Auto) 70.4 H Lymph % (Auto) 18.4 L [place] % (Auto) 7.3 Eos % (Auto) 2.8 Baso % (Auto) 0.3 Absolute Neuts (auto) 5.5 Absolute Lymphs (auto) 1.44 Nucleated RBC % 0 PT INR Sodium 139 Potassium 5.0 Chloride 108 H Carbon Dioxide 27.0 Anion Gap 4 L BUN 33 H Creatinine 1.58 H Estim Creat Clear Calc 28.58 Est GFR (MDRD) Af Amer 42 L Est GFR (MDRD) Non-Af 35 L BUN/Creatinine Ratio 20.9 H Glucose 191 H Calcium 8.6 Magnesium 3.3 H Troponin I < 0.015 09/18/18 09/18/18 04:10 04:10 WBC RBC Hgb Hct MCV MCH MCHC RDW Std Deviation RDW Coeff of Mahin Plt Count MPV Immature Gran % (Auto) Neut % (Auto) Lymph % (Auto) [place] % (Auto) Eos % (Auto) Baso % (Auto) Absolute Neuts (auto) Absolute Lymphs (auto) Nucleated RBC % PT 14.5 INR 1.2 Sodium 139 Potassium 4.7 Chloride 106 Carbon Dioxide 26.0 Anion Gap 7 BUN 32 H Creatinine 1.36 H Estim Creat Clear Calc 33.20 Est GFR (MDRD) Af Amer 50 L Est GFR (MDRD) Non-Af 41 L BUN/Creatinine Ratio 23.5 H Glucose 119 H Calcium 8.6 Magnesium Troponin I POC Glucose 09/18/18 09/17/18 09/17/18 10:12 21:32 16:46 POC Glucose 140 H 152 H 187 H Assessment/Plan Patient seen and examined independently of Pedro BARLOW. Essential features of the history and examination confirmed personally. Patient status post right hip surgery. Hospital Medicine consulted for routine medical management and specifically for type 2 diabetes. We will continue metformin for type 2 diabetes. Continue other medical related treatments and management. Code Visit Office Visits / Consults: [id number] IP Consult L5
[2018-09-17] MEDS: Insulin Lispro 100 UNIT/ML INSULN.PEN SC ×2 (16:52→21:36)
--- NOTE | 2018-09-17 17:17 | EKG12_ITS ---
Test Reason : CODE BLUE Blood Pressure : / mmHG Vent. Rate : 051 BPM Atrial Rate : 051 BPM P-R Int : 226 ms QRS Dur : 080 ms QT Int : 530 ms P-R-T Axes : 051 022 032 degrees QTc Int : 488 ms Sinus bradycardia with 1st degree A-V block Prolonged QT Abnormal ECG When compared with ECG of 04-SEP-2018 15:06, QT has lengthened Confirmed by CECI GIVENS ([id number]), make up editor EMMA MERCER ([id number]) on 09/24/2018 3:42:05 PM Referred By: Roberto Blevins Confirmed By:CECI GIVENS
--- NOTE | 2018-09-17 17:25 | PCM.PN.BLA ---
Progress Note Critical care summary: Called to bedside as code blue, patient was sitting upright in the chair and slumped over unresponsive. Prior patient was alert, upright, and speaking. Monitor showed bradycardia and pulse ox in the 80s. Breathing was shallow but present. She did not go pulseless, she had a syncopal episode. She was reclined, placed on 6lpm. Carotid pulse was present. Radial pulse was thready. She was sheeted over to the bed. She started to move and open her eyes. Glucose was 180. IV LR was ran wide open. Scopalamine patch was removed. She continued to have some transient apneic episodes and required repeated stimulation to stay alert enough to continue breathing. This was a syncopal episode likely 2/2 combination of post anasthesia, chronic hypoxic respiratory failure, scopalamine, and beta blockers. The patient will be transferred to the ICU for monitoring overnight. No further scopalamine. Temporarily hold metoprolol. Avoid narcotics until she is more alert. Check CBC, BMP, Mag, troponin, EKG. EKG showed SR with 1st degree AV. Obtain prior EKG for comparison IV infiltrated, will restart and continue IV Ringers. This patient was seen by Pedro Montoya PA-C under the supervision of Dr. Weiss.
--- NOTE | 2018-09-17 17:27 | NURSING ---
PRESSED CALL LIGHT, C/O LIGHTHEADEDNESS. THIS NURSE NOTIFIED BY JAVID ESPANA. UPON ENTERING ROOM, PATIENT VERY PALE, LETHARGIC. RESPONDED TO NAME AT [facility]IRS[facility] BUT THEN HEAD DROPPED TO CHEST & BECAME UNRESPONSIVE. STAFF EMERGENCY CALL INITIATED BY THIS NURSE. BLOOD GLUCOSE WAS JUST RECENTLY CHECKED. BP & PULSE OX CHECKED & RECORDED. IV FLUIDS WIDE OPEN, BECAME MORE RESPONSIVE & ANSWERS QUESTIONS APPROPRIATELY. HAVING PERIODS OF APNEA OFF & ON. TRANSFERRING TO ICU-1, CALLED BY THIS NURSE TO INFORM HIM.
[2018-09-17 17:41] LABS: Bedside Glucose 187 mg/dL (70-110)
[2018-09-17 17:59] LABS: Absolute Lymphocyte Count 1.44 X10^3/uL (0.83-4.51); Absolute Neutrophil Count 5.5 X10^3/uL (2.0-7.7); Basophil# 0.02 X10^3/uL; Basophil% 0.3 % (0-1); Eosinophil# 0.22 X10^3/uL; Eosinophils% 2.8 % (0-5); Hematocrit 25.8 % (37-47); Lymphocyte # 1.44 X10^3/ul (4.0); Lymphocyte % 18.4 % (19-41); Mean Corpuscular Hgb 28.2 pg (27.0-32.0); Mean Corpuscular Volume 90.8 fL (81-99); Monocyte# 0.57 X10^3/uL; Monocyte% 7.3 % (0-10); NRBC Flagged by Analyzer 0 % (0-5); Neutrophil % 70.4 % (47-70); Platelet Count 175 K/mm3 (150-450); RBC Distribution Width CV 14.5 % (11.6-14.6); RBC Distribution Width SD 48.2 fl (35.1-43.9); Red Blood Count 2.84 M/mm3 (4.2-5.4); White Blood Count 7.8 K/mm3 (4.4-11.0)
[2018-09-17 18:20] LABS: Anion Gap 4 (5-15); BUN 33 mg/dL (7-18); BUN/Creat Ratio 20.9 RATIO (10-20); Calcium,Total 8.6 mg/dL (8.5-10.1); Chloride 108 mmol/L (98-107); Creatinine, Serum 1.58 mg/dL (0.55-1.02); EST Glomerular Filtration Rate 35 mL/min (>60); Est Glom Filt Rate - Afr Amer 42 mL/min (>60); Estimated Creatinine Clearance 28.58 ml/min; Glucose 191 mg/dL (74-106); Magnesium 3.3 mg/dL (1.6-2.6); Sodium Level 139 mmol/L (136-145)
[2018-09-17] MEDS: Budesonide Respules 0.5 MG/2 ML AMPUL.NEB. INHALATION (19:37)
[2018-09-17] MEDS: Albuterol 2.5 MG/3 ML VIAL.NEB. INHALATION (19:37)
[2018-09-17] MEDS: Cefazolin 1 GM/50 ML BAG IV (19:43)
[2018-09-17] MEDS: Atorvastatin Calcium 20 MG Tablet PO (21:35)
[2018-09-17] MEDS: Senna/Docusate Sodium 1 Tablet 2 TABLET PO (21:35)
[2018-09-17 21:46] LABS: Bedside Glucose 152 mg/dL (70-110)
[2018-09-18] VITALS (20 sets, daily range): BP systolic 99–140; BP diastolic 59–83; PULSE 57–90; RESP 11–18; TEMP 36.2–37.5; O2SAT 90–99
[2018-09-18] MEDS: Lactated Ringers 1,000 ML 125 ML IV (00:40)
[2018-09-18] MEDS: Cefazolin 1 GM/50 ML BAG IV (04:11)
[2018-09-18] MEDS: 0.9% NaCl Peripheral Flush Adult/Peds IV (04:12)
[2018-09-18 04:30] LABS: Hematocrit 25.2 % (37-47); Hemoglobin 7.9 g/dL (12.0-15.0); Mean Corp Hgb Conc 31.3 g/dL (32-36); Mean Corpuscular Hgb 27.9 pg (27.0-32.0); Mean Platelet Vol. 9.2 fl (6.2-12.0); Platelet Count 177 K/mm3 (150-450); RBC Distribution Width CV 14.3 % (11.6-14.6); RBC Distribution Width SD 46.5 fl (35.1-43.9); Red Blood Count 2.83 M/mm3 (4.2-5.4)
[2018-09-18 04:40] LABS: Anion Gap 7 (5-15); BUN 32 mg/dL (7-18); BUN/Creat Ratio 23.5 RATIO (10-20); Calcium,Total 8.6 mg/dL (8.5-10.1); Chloride 106 mmol/L (98-107); Creatinine, Serum 1.36 mg/dL (0.55-1.02); EST Glomerular Filtration Rate 41 mL/min (>60); Est Glom Filt Rate - Afr Amer 50 mL/min (>60); Glucose 119 mg/dL (74-106); International Normalized Ratio 1.2; Potassium 4.7 mmol/L (3.5-5.1); Prothrombin Time (Protime)PT. 14.5 SECONDS (11.7-14.9); Sodium Level 139 mmol/L (136-145)
[2018-09-18] MEDS: Acetaminophen 500 MG Tablet 1000 MG PO ×3 (05:21→21:58)
[2018-09-18] MEDS: Budesonide Respules 0.5 MG/2 ML AMPUL.NEB. INHALATION ×2 (06:52→18:45)
[2018-09-18] MEDS: Albuterol 2.5 MG/3 ML VIAL.NEB. INHALATION ×2 (06:52→18:45)
--- NOTE | 2018-09-18 06:57 | PN_ITS ---
Subjective: Patient is a 67-year-old female who had an elective total hip replacement done on 09/17/2018 and after transfer to her room had a syncopal episode while sitting up in a chair. She was having apneic episodes but aroused and started breathing repeatedly. She was transferred to the intensive care unit for close monitoring. Afebrile since admission. Beta-ting was discontinued yesterday due to bradycardia/syncope. Heart rate has ranged from 57-75 overnight. Pulse ox is 95 to 99% on room air. All lab was personally reviewed. Hemoglobin today is 7.9, down from 10.1 at admission. White blood cell count is 7 and platelet count is 177. BMP is remarkable for a creatinine of 32 with a BUN of 32 and BUN/creatinine ratio of 23. Blood sugars are well controlled in all under 200. The nasal PCR are is positive for staph aureus but negative for MRSA. TTE in March 2018 showed global left ventricular hypokinesis with a 40% ejection fraction in 1-2+ MR. Estimated PA systolic was 27. Stress echo done at the same time showed a resting ejection fraction of 60% which improved to 75% following dobutamine. It was negative for ischemia. Patient tells us that she has never had pulmonary function test nor a sleep study. She tells me she uses oxygen twice a day and she puts it in her mouth. She tells me she is on oxygen twice a day because of residual flu. She also tells me she has chronic bronchitis. She is on an Advair inhaler and uses as needed Ventolin inhaler. She denies any history of coronary artery disease, congestive heart failure, myocardial infarction. She is a former smoker but has not smoked for many years. She denies any history of asthma. Denies chest pain, shortness of breath, nausea, dysuria. Pain is adequately controlled with the current medications. She has been up ambulating to the bedside commode and denies dizziness or lightheadedness. - Physical Exam General: Alert, Oriented x3, Cooperative, No apparent distress, - - She answers questions sometimes appropriately and at other times she does not answer what I ask her but, goes off on a different topic. She is pale and has pale palpebral conjunctiva. HEENT: Atraumatic, PERRLA, EOMI, Normocephalic Oral: Dry Mucosa Neck: Trachea Midline Lungs: Clear to auscultation, Diminished Cardiovascular: Regular rate, Regular Rhythm, Normal S1, Normal S2, No Ectopic Activity, Murmur - Stage 2/6 systolic ejection murmur at the second right intercostal space with radiation to the lower left sternal border, soft left axillary systolic murmur, No rub noted, No Gallop, - - Telemetry shows sinus bradycardia and normal sinus rhythm with no ventricular ectopy Abdomen: Bowel Sounds Present, Soft, Non Tender, Non-Distended Extremities: No clubbing, No cyanosis, No edema Skin: No rashes Musculoskeletal: No Muscle Wasting Neurological: Cranial nerves II-XII grossly intact, Neuro grossly intact Psych/Mental Status: Appropriate - ? sometimes not answering drect questions and she is easily distracted, Flat Affect Vital Signs Temp Pulse Resp BP Pulse Ox 97.3 F L 61 15 119/71 98 09/18/18 04:00 09/18/18 06:00 09/18/18 06:00 09/18/18 06:00 09/18/18 06:00 Oxygen Flow Rate (L/min) 2 Oxygen Delivery Method Room Air Weight: 177 lb 7.554 oz Body Mass Index (BMI) 30.6 Intake and Output for Last 24 Hours 09/16/18 09/17/18 09/18/18 23:59 23:59 23:59 Intake Total 2866 / 2866 774 / 774 Output Total 325 / 325 800 / 800 Balance 2541 / 2541 -26 / -26 Laboratory Tests Past 24 Hrs 09/17/18 09/17/18 09/17/18 09:52 17:55 17:55 WBC 7.8 RBC 2.84 L Hgb 8.0 L Hct 25.8 L MCV 90.8 MCH 28.2 MCHC 31.0 L RDW Std Deviation 48.2 H RDW Coeff of Mahin 14.5 Plt Count 175 MPV 9.0 Immature Gran % (Auto) 0.800 Neut % (Auto) 70.4 H Lymph % (Auto) 18.4 L Dickenson % (Auto) 7.3 Eos % (Auto) 2.8 Baso % (Auto) 0.3 Absolute Neuts (auto) 5.5 Absolute Lymphs (auto) 1.44 Nucleated RBC % 0 POC PT 14.8 H PT INR 1.20 Sodium 139 Potassium 5.0 Chloride 108 H Carbon Dioxide 27.0 Anion Gap 4 L BUN 33 H Creatinine 1.58 H Estim Creat Clear Calc 28.58 Est GFR (MDRD) Af Amer 42 L Est GFR (MDRD) Non-Af 35 L BUN/Creatinine Ratio 20.9 H Glucose 191 H Calcium 8.6 Magnesium 3.3 H Troponin I < 0.015 09/18/18 09/18/18 09/18/18 04:10 04:10 04:10 WBC 7.0 RBC 2.83 L Hgb 7.9 L Hct 25.2 L MCV 89.0 MCH 27.9 MCHC 31.3 L RDW Std Deviation 46.5 H RDW Coeff of Mahin 14.3 Plt Count 177 MPV 9.2 Immature Gran % (Auto) Neut % (Auto) Lymph % (Auto) Dickenson % (Auto) Eos % (Auto) Baso % (Auto) Absolute Neuts (auto) Absolute Lymphs (auto) Nucleated RBC % POC PT PT 14.5 INR 1.2 Sodium 139 Potassium 4.7 Chloride 106 Carbon Dioxide 26.0 Anion Gap 7 BUN 32 H Creatinine 1.36 H Estim Creat Clear Calc 33.20 Est GFR (MDRD) Af Amer 50 L Est GFR (MDRD) Non-Af 41 L BUN/Creatinine Ratio 23.5 H Glucose 119 H Calcium 8.6 Magnesium Troponin I POC Glucose 09/17/18 09/17/18 09/17/18 21:32 16:46 09:51 POC Glucose 152 H 187 H 170 H Medical Necessity - Tobacco Use Smoking Status: Former smoker Assessment/Plan All Active Problems (Last Reviewed 03/25/18 @ 08:28 by Brenda Burks) Syncope (Resolved) Impressions 1. Syncope-likely secondary to multiple factors including orthostatic hypotension, sedation secondary to scopolamine patch, beta blockers in a conjunction with dehydration in a pt who can not increase HR due to beta blockers. 2. Apneic periods often suspect secondary to sedation from scopolamine patch which has been removed 3. Chronic renal failure stage III 4. Chronic respiratory failure with hypoxemia on home O2? not appropriately using O2 at home........will need to get Dr. Alfaro's records to find out why she even has oxygen 5. Diabetes mellitus type 2 6. History of DVT on outpatient Coumadin....... will need to bridge with Lovenox when okay with Dr. Blevins or consider starting Eliquis.....recent? recurrent? does she really need to be on warfarin? 7. Acute blood loss anemia on chronic anemia 8. Paroxysmal atrial fibrillation Transfer to [facility] Overnight trending pulse ox - she desaturated in the ICU overnight when sleeping Ambulatory pulse ox on room air Obtain Dr. Alfaro's records-especially PFTs, problem list, med list, recent labs Check a Hemoccult stool Continue PPI Patient has been restarted on warfarin but will communicate with orthopedics today because if she truly needs to be on warfarin for recent DVT or recurrent DVT she should be bridged with Lovenox Recheck lab in the a.m. Recheck H&H at 1600-I suspect she is still somewhat dehydrated and the hemoglobin will likely continue to decrease. Intravenous fluids are being discontinued today and she will increase her oral intake. Code Visit Inpatient E&M: 29763 Subs Hosp L3
[2018-09-18] MEDS: Famotidine 20 MG Tablet PO (08:25)
[2018-09-18] MEDS: Senna/Docusate Sodium 1 Tablet 2 TABLET PO ×2 (08:26→21:58)
[2018-09-18] MEDS: Calcium Carb/Vitamin D 1 TABLET Tablet 2 TABLET PO (08:26)
[2018-09-18] MEDS: Ferrous Gluconate 324 MG Tablet PO ×2 (08:26→16:23)
[2018-09-18] MEDS: Pantoprazole Sodium 20 MG Tablet PO (08:27)
[2018-09-18] MEDS: Tolterodine Tartrate 2 MG CAP.SA PO (08:27)
[2018-09-18] MEDS: Loratadine 10 MG Tablet 5 MG PO (08:28)
[2018-09-18] MEDS: Gabapentin 800 MG Tablet PO ×3 (08:28→16:23)
[2018-09-18] MEDS: Folic Acid 1 MG Tablet PO (08:29)
--- NOTE | 2018-09-18 09:51 | CASEMGMT ---
RN PREET THEATRICAL RIGGER CM to room to meet with patient for initial transition planning/care coordination assessment. YONIS OVIEDO introduced self and role at [facility]. Pt voices understanding and consents to assessment at this time. Pt just transferred to MS3 from ICU. present. Pt is A/O at this time and answers all questions appropriately. Care providers, pharmacy, and demographics verified/updated at this time. PCP: Dominic Specialists: [facility] Pharmacy: [facility] Retail Insurance: [employer] Prescription Benefit: Yes Living Will/HPOA: Pt does not currently have LW/HCPOA. Pt and made aware SW can assist if interested in more information or completing paperwork. They decline further information. states they have a association executive that can assist them. LNOK: Living Arrangements: Lives with in one story home. Was independent prior to surgery. supportive and can help on return to home. Transportation: can provide transportation home. DME: States has the following DME: walk in shower w/shower chair, walker, cane, grab bars, toilet riser, and BSC. Pt states no need for further DME at this time. HHC/SNF: Hx of WVM. No hx of HHC. Pt states original plan was for OP therapy and has an appt @ [facility] on September 22. Pt states she may be interested in HHC @ d/c instead, but she wants to see how well she does with therapy today and then decide. and pt prefer [facility] HHC if she does decide on HHC. CM to follow for discharge planning/needs. Pt and voice no further concerns/needs at this time. Advised them to ask for CM if any further questions/concerns/needs arise. Voices understanding. PLAN: TBD. OP therapy vs HHC. Pt to decide once she has therapy today. Ania, MS3 YONIS OVIEDO made aware . Queenie OLMEDO RN, CM
--- NOTE | 2018-09-18 10:08 | PCM.PN.ORT ---
Subjective: The patient was sitting in bed upon examination. Patient denies any chest pain, shortness of breath, dizziness, lightheadedness, nausea or vomiting, or calf pain. Pain is controlled on medications. Patient was just transferred from the ICU to the third floor. After surgery a rapid response was called when the patient had an syncopal episode while sitting in the chair while also having apneic episodes but aroused. Patient was placed in the ICU for close monitoring. Scopolamine patch was removed. Patient has improved today and was transferred up to the third floor. She does have a drop in hemoglobin to 7.9. She has been followed by medicine. Case was discussed with Dr. Weiss and will reorder lab work this afternoon for possible packed red blood cell transfusion if hemoglobin continues to drop. Patient does have medical history of paroxysmal atrial fibrillation as well as CVA, previous DVT/pulmonary emboli and has been on Coumadin. She is followed by Dr. Orr. Patient states she has soreness in the right hip but medications are helpful. Objective: Vital signs stable and afebrile. Patient is able to plantarflex and dorsiflex actively on the right, patient has brace for foot drop on the left. Sensation is intact to light touch to saphenous, sural, superficial and deep peroneal, and tibial distribution. Dressing is clean dry and intact. Negative Homans bilaterally, negative signs and symptoms of DVT. - Physical Exam General: Alert, Oriented x3, Cooperative, No apparent distress Vital Signs Temp Pulse Resp BP Pulse Ox 97.2 F L 66 16 133/79 H 96 09/18/18 09:00 09/18/18 09:00 09/18/18 09:00 09/18/18 09:00 09/18/18 09:00 Oxygen Flow Rate (L/min) 2 Oxygen Delivery Method Room Air Weight: 80.5 kg Body Mass Index (BMI) 30.6 Intake and Output for Last 24 Hours 09/16/18 09/17/18 09/18/18 23:59 23:59 23:59 Intake Total 2866 / 2866 774 / 774 Output Total 325 / 325 800 / 800 Balance 2541 / 2541 -26 / -26 Laboratory Tests Past 24 Hrs 09/17/18 09/17/18 09/18/18 17:55 17:55 04:10 WBC 7.8 7.0 RBC 2.84 L 2.83 L Hgb 8.0 L 7.9 L Hct 25.8 L 25.2 L MCV 90.8 89.0 MCH 28.2 27.9 MCHC 31.0 L 31.3 L RDW Std Deviation 48.2 H 46.5 H RDW Coeff of Mahin 14.5 14.3 Plt Count 175 177 MPV 9.0 9.2 Immature Gran % (Auto) 0.800 Neut % (Auto) 70.4 H Lymph % (Auto) 18.4 L Dauphin % (Auto) 7.3 Eos % (Auto) 2.8 Baso % (Auto) 0.3 Absolute Neuts (auto) 5.5 Absolute Lymphs (auto) 1.44 Nucleated RBC % 0 PT INR Sodium 139 Potassium 5.0 Chloride 108 H Carbon Dioxide 27.0 Anion Gap 4 L BUN 33 H Creatinine 1.58 H Estim Creat Clear Calc 28.58 Est GFR (MDRD) Af Amer 42 L Est GFR (MDRD) Non-Af 35 L BUN/Creatinine Ratio 20.9 H Glucose 191 H Calcium 8.6 Magnesium 3.3 H Troponin I < 0.015 09/18/18 09/18/18 04:10 04:10 WBC RBC Hgb Hct MCV MCH MCHC RDW Std Deviation RDW Coeff of Mahin Plt Count MPV Immature Gran % (Auto) Neut % (Auto) Lymph % (Auto) [place]hin % (Auto) Eos % (Auto) Baso % (Auto) Absolute Neuts (auto) Absolute Lymphs (auto) Nucleated RBC % PT 14.5 INR 1.2 Sodium 139 Potassium 4.7 Chloride 106 Carbon Dioxide 26.0 Anion Gap 7 BUN 32 H Creatinine 1.36 H Estim Creat Clear Calc 33.20 Est GFR (MDRD) Af Amer 50 L Est GFR (MDRD) Non-Af 41 L BUN/Creatinine Ratio 23.5 H Glucose 119 H Calcium 8.6 Magnesium Troponin I POC Glucose 09/17/18 09/17/18 21:32 16:46 POC Glucose 152 H 187 H Medical Necessity - Tobacco Use Smoking Status: Former smoker Assessment/Plan All Active Problems (Last Reviewed 03/25/18 @ 08:28 by Brenda Burks) Syncope (Resolved) 1. S/P right direct anterior total hip arthroplasty POD #1 2. Continue Pain Medications: Tylenol and tramadol 3. DVT Prophylaxis: Patient currently is back on warfarin. Dr. Weiss he would like to bridge with Lovenox until therapeutic. Patient has history of CVA, previous pulmonary emboli/DVT, and paroxysmal atrial fibrillation. Recommended she be on lifelong Coumadin by Dr. Orr. 4. PT/OT: Weightbearing as tolerated 5. Acute blood loss anemia on chronic anemia: H & H: 7.9/25.2, asymptomatic. Blood pressure is stable and patient is not tachycardic. Medicine will be doing repeat H&H this afternoon for possible transfusion if it continues to trend down. 6. Encouraged Incentive Spirometry 7. Continue postoperative medical management per medicine: Case was discussed with hospitalist 8. Disposition: Do not recommend discharge today until patient is medically stable. We are continuing to monitor her hemoglobin. Plan will be for possible discharge home tomorrow if medically stable.
[2018-09-18 10:16] LABS: Bedside Glucose 140 mg/dL (70-110)
[2018-09-18] MEDS: Ensure Surgery 237 ML LIQUID PO ×2 (11:15→16:23)
[2018-09-18] MEDS: metFORMIN HCl 500 MG Tablet PO (11:16)
[2018-09-18] MEDS: traMADol 50 MG Tablet PO (13:39)
[2018-09-18] MEDS: Insulin Lispro 100 UNIT/ML INSULN.PEN SC ×2 (16:24→21:56)
[2018-09-18 16:40] LABS: Hematocrit 24.2 % (37-47); Hemoglobin 7.5 g/dL (12.0-15.0)
[2018-09-18 16:51] LABS: Bedside Glucose 195 mg/dL (70-110)
[2018-09-18 21:53] LABS: Bacteria 0 SEEN /hpf (None Seen); Mucous, Urine 0 SEEN /hpf (<or=2+)
[2018-09-18 21:57] LABS: Color, Urine Yellow (Yellow); Glucose, Dipstick Normal (Normal); Ketone-Dipstick Negative (Negative); Leukocyte Esterase-Dipstick 500 /ul (Negative); Nitrite-Dipstick Negative (Negative); Occult Blood-Urine 50 /ul (Negative); Protein-Dipstick Negative (Negative); Specific Gravity, Urine 1.005 (1.002-1.030); Urine Bilirubin Dipstick Negative (Negative); Urine Clarity Clear (Clear); Urine Urobilinogen Normal (Normal)
[2018-09-18] MEDS: Atorvastatin Calcium 20 MG Tablet PO (21:58)
[2018-09-18 22:01] LABS: Bedside Glucose 180 mg/dL (70-110)
[2018-09-18] MEDS: Enoxaparin 80 MG/0.8 ML Syringe SC (22:04)
[2018-09-18 22:10] LABS: Red Blood Cells-Urine 0-5 SEEN /hpf (0-5); Squamous Epithelial Cells - UA 0-5 SEEN /hpf (5-10); White Blood Cells 0-5 SEEN /hpf (0-5)
[2018-09-19] VITALS (11 sets, daily range): BP systolic 118–142; BP diastolic 58–86; PULSE 74–88; RESP 16–18; TEMP 36.6–37.3; O2SAT 94–98
[2018-09-19] MEDS: traMADol 50 MG Tablet PO (03:25)
[2018-09-19] MEDS: Acetaminophen 500 MG Tablet 1000 MG PO (05:13)
[2018-09-19] MEDS: 0.9% NaCl Peripheral Flush Adult/Peds IV (06:22)
[2018-09-19 06:40] LABS: Bedside Glucose 145 mg/dL (70-110)
[2018-09-19] MEDS: Albuterol 2.5 MG/3 ML VIAL.NEB. INHALATION (06:45)
[2018-09-19] MEDS: Budesonide Respules 0.5 MG/2 ML AMPUL.NEB. INHALATION (06:45)
--- NOTE | 2018-09-19 07:35 | PN.ORTHO_ITS ---
Subjective: The patient was sitting in bed upon examination. Patient denies any chest pain, shortness of breath, dizziness, lightheadedness, nausea or vomiting, or calf pain. Pain is controlled on medications. No adverse overnight events. Patient does complain of pain in the right hip but she does feel it is better than prior to surgery. Medications are helping. Patient needed packed red blood cells overnight due to drop in hemoglobin. She currently denies any dizziness or lightheadedness. She has been up working with physical therapy walking. Objective: Vital signs stable and afebrile. Patient is able to plantarflex and dorsiflex actively. Patient with history of left foot drop currently wearing brace Sensation is intact to light touch to saphenous, sural, superficial and deep peroneal, and tibial distribution. Dressing is clean dry and intact. Right thigh is soft and supple Negative Homans bilaterally, negative signs and symptoms of DVT. - Physical Exam General: Alert, Oriented x3, Cooperative, No apparent distress Vital Signs Temp Pulse Resp BP Pulse Ox 98.2 F 81 18 142/86 H 97 09/19/18 06:20 09/19/18 06:20 09/19/18 06:20 09/19/18 06:20 09/19/18 06:20 Oxygen Flow Rate (L/min) 2 Oxygen Delivery Method Room Air Weight: 80.2 kg Body Mass Index (BMI) 30.6 Intake and Output for Last 24 Hours 09/17/18 09/18/18 09/19/18 23:59 23:59 23:59 Intake Total 2866 / 2866 774 / 1124 2053 / 2053 Output Total 325 / 325 / 2000 1999 Balance 2541 / 2541 -26 / -876 54 / 54 Laboratory Tests Past 24 Hrs 09/18/18 09/18/18 09/18/18 16:10 18:54 21:46 Hgb 7.5 L Hct 24.2 L Urine Color Yellow Urine Clarity Clear Urine pH 6.0 Ur Specific [place] 1.005 Urine Protein Negative Urine Glucose (UA) Normal Urine Ketones Negative Urine Occult Blood 50 H Urine Nitrite Negative Urine Bilirubin Negative Urine Urobilinogen Normal Ur Leukocyte Esterase 500 H Urine RBC 0-5 SEEN Urine WBC 0-5 SEEN Ur Squamous Epith Cells 0-5 SEEN Urine Bacteria 0 SEEN Urine Mucus 0 SEEN Blood Type A POSITIVE Antibody Screen NEGATIVE Crossmatch See Detail POC Glucose 09/19/18 09/18/18 09/18/18 06:33 21:55 16:18 POC Glucose 145 H 180 H 195 H 09/18/18 10:12 POC Glucose 140 H Medical Necessity - Tobacco Use Smoking Status: Former smoker Assessment/Plan All Active Problems (Last Reviewed 03/25/18 @ 08:28 by Brenda Burks) Syncope (Resolved) 1. S/P right direct anterior total hip arthroplasty POD #2 2. Continue Pain Medications: Tylenol and tramadol 3. DVT Prophylaxis: Patient currently is back on warfarin. Dr. Weiss he would like to bridge with Lovenox until therapeutic. Patient has history of CVA, previous pulmonary emboli/DVT, and paroxysmal atrial fibrillation. Recommended she be on lifelong Coumadin by Dr. Orr. 4. PT/OT: Weightbearing as tolerated 5. Acute blood loss anemia on chronic anemia: Hemoglobin did drop yesterday to 7.5. Patient required packed red blood cells. No lab work is currently been drawn. Plan is to have lab work drawn today. Blood pressure is stable and patient is not tachycardic. 6. Encouraged Incentive Spirometry 7. Continue postoperative medical management per medicine: Case was discussed with hospitalist 8. Disposition: Plan will be for possible discharge home today with either outpatient therapy versus home health care. Discharge will be dependent upon lab work and if hospitalist feels patient is medically stable to be discharged. Prescriptions will be attached to chart. Patient will follow-up per postop instructions. She was also instructed to follow-up with her primary care physician next week to have repeat INR to make sure she is therapeutic. She will be discharged with Lovenox.
--- NOTE | 2018-09-19 07:46 | PCM.DC.THR ---
Discharge Diet: No Restrictions Discharge Activity: May Not Drive - while taking narcotic pain medications. May shower in (days): 1 - Turn dressing away from water Ice area for (Minutes): 20 - Every 1-2 hours while awake Weight Bearing Status: Weight bearing as tolerated - With walker Elevate: Operative Extremity Additional Activity Instructions:: Wear elastic stockings for 2 weeks. DO NOT use alcohol with narcotic pain medication. DO NOT make important decisions while taking narcotic medication. If you have problems with taking your medication (rash, itching, nausea, etc.) call the office at once. Call your doctor if your incision/area has: Increased Pain/ Swelling, Increased Redness, Foul Smelling Discharge Call your doctor if you observe: Fever of 101 or Higher Remove Dressing in (days):: 3 - Okay to remove on September 22, 2018 Instructions: What Are Snoring and Sleep Apnea?, What Is a Sleep Study?, Visiting a Sleep Clinic Additional Instructions: Patient should continue the Lovenox for 5 days. Will need scheduled follow-up with primary care for repeat INR to make sure she is therapeutic with her Coumadin. Follow-up per postop instructions Allergies/Adverse Reactions: Allergies morphine Allergy (Verified 09/04/18 15:13) Unknown oxycodone HCl [From OxyContin] Allergy (Verified 09/04/18 15:13) Unknown propoxyphene HCl [From Darvon] Allergy (Verified 09/04/18 15:13) Unknown chlorhexidine Adverse Reaction (Verified 09/04/18 15:13) Rash cotton Allergy (Uncoded 09/04/18 15:13) Unknown grass Allergy (Uncoded 09/04/18 15:13) Unknown vinegar Allergy (Uncoded 09/04/18 15:13) Unknown wool Allergy (Uncoded 09/04/18 15:13) Unknown feathers Adverse Reaction (Uncoded 09/04/18 15:13) Unknown Medications to take at Discharge Albuterol Sulfate [Proventil Hfa] 6.7 gm IH 4X/DAY 01/29/13 Estradiol [Vagifem] 10 mcg VG SUWE 01/29/13 Fluticasone/Salmeterol [Advair 100/50 Diskus] 1 puff INHALATION BID 01/29/13 Multivitamins,Therapeutic [Multivitamin] 1 tab PO DAILY 12/12/13 Simvastatin [Zocor] 40 mg PO QHS 01/29/13 Calcium Carbonate/Vitamin D3 [Calcium 500-Vit D3 200 Tablet] 2 ea PO DAILY 10/01/17 Levocetirizine Dihydrochloride [Xyzal] 5 mg PO DAILY 10/01/17 Hamilton-3 Fatty Acids/Fish Oil [Fish Oil 1,000 mg Capsule] 3 ea PO DAILY 10/01/17 Omeprazole [Prilosec] 20 mg PO DAILY 10/01/17 Oxybutynin Chloride [Ditropan Xl] 10 mg PO DAILY 10/01/17 metFORMIN HCl [Glucophage] 500 mg PO DAILY 10/01/17 warfarin 4 mg tablet 5 mg PO SUMOWEFRSA 03/19/18 gabapentin 400 mg capsule 800 mg PO TIDCM cap 03/25/18 Ascorbate Calcium/Bioflavonoid [Mounika-C 500 mg Tablet] 1 each PO DAILY 05/05/18 Ferrous Gluconate 325 mg PO BID 05/29/18 Folic Acid 0.8 mg PO DAILY 05/29/18 Metoprolol Tartrate 12.5 mg PO BID 05/29/18 Warfarin [Coumadin] 7.5 mg PO TUTH 09/04/18 Acetaminophen [Tylenol] 1,000 mg PO Q8 #100 tab 09/19/18 Enoxaparin [Lovenox] 80 mg SUBCUT Q12 #10 syringe 09/19/18 Senna/Docusate Sodium [Senokot-S] 2 tab PO BID #20 tab 09/19/18 traMADol [Ultram] 50 - 100 mg PO Q6H PRN PRN 7 Days #56 tab 09/19/18 The following prescriptions were given: Enoxaparin [Lovenox] 80 mg SUBCUT Q12 #10 syringe Prescription Printed Senna/Docusate Sodium [Senokot-S] 2 tab PO BID #20 tab Prescription Printed Acetaminophen [Tylenol] 1,000 mg PO Q8 #100 tab Prescription Printed traMADol [Ultram] 50 - 100 mg PO Q6H PRN PRN 7 Days #56 tab PRN Reason: Mod-Severe Pain (4-10/10) Prescription Printed Primary Care Physician: Bernardo Alfaro MD [Primary Care Provider] - Please follow up with your Primary Care Physician in: Within 1 week for repeat INR testing and Coumadin check Test Results: Test results from this visit will be discussed in further detail at your follow-up appointment, if applicable. Please Follow Up With: Bria Silva physical therapy When: 09/22/18 @ 7:00 am with Alma Please Follow Up With: Nnamdi Berg PA-C When: 10/01/18 @ 8:15 am
[2018-09-19 07:48] LABS: Hematocrit 29.9 % (37-47); Hemoglobin 9.7 g/dL (12.0-15.0); Mean Corp Hgb Conc 32.4 g/dL (32-36); Mean Corpuscular Hgb 28.7 pg (27.0-32.0); Mean Corpuscular Volume 88.5 fL (81-99); Mean Platelet Vol. 8.9 fl (6.2-12.0); Platelet Count 152 K/mm3 (150-450); RBC Distribution Width CV 14.2 % (11.6-14.6); RBC Distribution Width SD 45.7 fl (35.1-43.9); Red Blood Count 3.38 M/mm3 (4.2-5.4); White Blood Count 7.5 K/mm3 (4.4-11.0)
[2018-09-19 08:07] LABS: ALB/GLOB Ratio 0.7 RATIO (0.9-2.4); AST(SGOT) 16 U/L (15-37); Alanine Aminotransfer ALT/SGPT < 6 U/L (13-56); Albumin, Serum 2.7 g/dL (3.2-5.0); Alkaline Phosphatase 85 U/L (45-117); Anion Gap 3 (5-15); BUN 33 mg/dL (7-18); BUN/Creat Ratio 23.6 RATIO (10-20); Calcium,Total 8.7 mg/dL (8.5-10.1); Chloride 107 mmol/L (98-107); EST Glomerular Filtration Rate 40 mL/min (>60); Est Glom Filt Rate - Afr Amer 48 mL/min (>60); Estimated Creatinine Clearance 32.26 ml/min; Glucose 159 mg/dL (74-106); Phosphorus 3.9 mg/dL (2.5-4.9); Potassium 4.5 mmol/L (3.5-5.1); Protein, Total 6.7 g/dL (6.4-8.2); Sodium Level 137 mmol/L (136-145)
[2018-09-19] MEDS: Ensure Surgery 237 ML LIQUID PO ×2 (08:11→11:33)
[2018-09-19] MEDS: Calcium Carb/Vitamin D 1 TABLET Tablet 2 TABLET PO (08:11)
[2018-09-19] MEDS: Senna/Docusate Sodium 1 Tablet 2 TABLET PO (08:11)
[2018-09-19] MEDS: Famotidine 20 MG Tablet PO (08:12)
[2018-09-19] MEDS: Pantoprazole Sodium 20 MG Tablet PO (08:12)
[2018-09-19] MEDS: Gabapentin 800 MG Tablet PO ×2 (08:12→11:31)
[2018-09-19] MEDS: Loratadine 10 MG Tablet 5 MG PO (08:12)
[2018-09-19] MEDS: Tolterodine Tartrate 2 MG CAP.SA PO (08:12)
[2018-09-19] MEDS: Ferrous Gluconate 324 MG Tablet PO (08:12)
[2018-09-19] MEDS: metFORMIN HCl 500 MG Tablet PO (08:13)
[2018-09-19] MEDS: Enoxaparin 80 MG/0.8 ML Syringe SC (08:16)
[2018-09-19] MEDS: Folic Acid 1 MG Tablet PO (08:16)
--- NOTE | 2018-09-19 09:30 | CASEMGMT ---
YONIS CM in to discuss discharge needs with patient. Patient and state that they would like to go home with outpatient therapy that has already been established for Saturday09/22/[address] [facility]. Patient and voiced no further concerns at this time.
--- NOTE | 2018-09-19 10:31 | PCM.DC ---
Discharge Activity: May Not Drive - while taking narcotic pain medications. May shower in (days): 1 - Turn dressing away from water Ice area for (Minutes): 20 - Every 1-2 hours while awake Weight Bearing Status: Weight bearing as tolerated - With walker Keep extremity elevated above heart level: Operative Extremity Additional Activity Instructions:: Wear elastic stockings for 2 weeks. DO NOT use alcohol with narcotic pain medication. DO NOT make important decisions while taking narcotic medication. If you have problems with taking your medication (rash, itching, nausea, etc.) call the office at once. Call your doctor if your incision/area has: Increased Pain/ Swelling, Increased Redness, Foul Smelling Discharge Call your doctor if you observe: Fever of 101 or Higher Remove Dressing in (days):: 3 - Okay to remove on September 22, 2018 Instructions: What Are Snoring and Sleep Apnea?, What Is a Sleep Study?, Visiting a Sleep Clinic Additional Instructions: The overnight oxygen test shows that your xygen dips down while you are sleeping but, not so much that you would need hme oxygen. I do recommend that you discuss getting a sleep study as there were >150 desaturation events where your xygen dropped more than 4%. You are anemic and your blood count dropped post operatively to 7.5. Normal in a woman is 12-14. You received 2 units of blood and the blood count is now 9.7. Continue taking the iron supplement and the vitamin C twice daily. Allergies/Adverse Reactions: Allergies morphine Allergy (Verified 09/04/18 15:13) Unknown oxycodone HCl [From OxyContin] Allergy (Verified 09/04/18 15:13) Unknown propoxyphene HCl [From Darvon] Allergy (Verified 09/04/18 15:13) Unknown chlorhexidine Adverse Reaction (Verified 09/04/18 15:13) Rash cotton Allergy (Uncoded 09/04/18 15:13) Unknown grass Allergy (Uncoded 09/04/18 15:13) Unknown vinegar Allergy (Uncoded 09/04/18 15:13) Unknown wool Allergy (Uncoded 09/04/18 15:13) Unknown feathers Adverse Reaction (Uncoded 09/04/18 15:13) Unknown Medications to take at Discharge Albuterol Sulfate [Proventil Hfa] 6.7 gm IH 4X/DAY 01/29/13 Estradiol [Vagifem] 10 mcg VG SUWE 01/29/13 Fluticasone/Salmeterol [Advair 100/50 Diskus] 1 puff INHALATION BID 01/29/13 Multivitamins,Therapeutic [Multivitamin] 1 tab PO DAILY 01/29/13 Simvastatin [Zocor] 40 mg PO QHS 01/29/13 Calcium Carbonate/Vitamin D3 [Calcium 500-Vit D3 200 Tablet] 2 ea PO DAILY 10/01/17 Levocetirizine Dihydrochloride [Xyzal] 5 mg PO DAILY 10/01/17 [place]-3 Fatty Acids/Fish Oil [Fish Oil 1,000 mg Capsule] 3 ea PO DAILY 10/01/17 Omeprazole [Prilosec] 20 mg PO DAILY 10/01/17 Oxybutynin Chloride [Ditropan Xl] 10 mg PO DAILY 10/01/17 metFORMIN HCl [Glucophage] 500 mg PO DAILY 10/01/17 warfarin 4 mg tablet 5 mg PO SUMOWEFRSA 03/19/18 gabapentin 400 mg capsule 800 mg PO TIDCM cap 03/25/18 Ascorbate Calcium/Bioflavonoid [Mounika-C 500 mg Tablet] 1 each PO DAILY 05/05/18 Ferrous Gluconate 325 mg PO BID 05/29/18 Folic Acid 0.8 mg PO DAILY 05/29/18 Metoprolol Tartrate 12.5 mg PO BID 05/29/18 Warfarin [Coumadin] 7.5 mg PO TUTH 09/04/18 Acetaminophen [Tylenol] 1,000 mg PO Q8 #100 tab 09/19/18 Enoxaparin [Lovenox] 80 mg SUBCUT Q12 #10 syringe 09/19/18 Senna/Docusate Sodium [Senokot-S] 2 tab PO BID #20 tab 09/19/18 traMADol [Ultram] 50 - 100 mg PO Q6H PRN PRN 7 Days #56 tab 09/19/18 The following prescriptions were given: Enoxaparin [Lovenox] 80 mg SUBCUT Q12 #10 syringe Prescription Printed Senna/Docusate Sodium [Senokot-S] 2 tab PO BID #20 tab Prescription Printed Acetaminophen [Tylenol] 1,000 mg PO Q8 #100 tab Prescription Printed traMADol [Ultram] 50 - 100 mg PO Q6H PRN PRN 7 Days #56 tab PRN Reason: Mod-Severe Pain (4-11/27) Prescription Printed Primary Care Physician: Bernardo Alfaro MD [Primary Care Provider] - Please follow up with your Primary Care Physician in: Within 1 week for repeat INR testing and Coumadin check Test Results: Test results from this visit will be discussed in further detail at your follow-up appointment, if applicable. Please Follow Up With: Bria Silva physical therapy When: 09/22/18 @ 7:00 am with Alma Please Follow Up With: Nnamdi Berg PA-C When: 10/01/18 @ 8:15 am
--- NOTE | 2018-09-19 11:04 | PN_ITS ---
Subjective: Pain is adequately controlled on the current pain regimen. Vital signs are stable. She is afebrile. She received 2 units of packed red blood cells on 09/18/2018 for a hemoglobin of 7.5 associated with shortness of breath with exertion. Hemoglobin today is 9.7. Electrolytes are within normal limits. Creatinine is stable at 1.4. Pulse ox at rest is 96 to 97% and the pulse ox never dropped below 96% with ambulation. The overnight trending pulse ox was reviewed and she had 156 desaturations during the monitoring. There was one desaturation where she was 88% or less and this lasted 16 seconds. - Physical Exam General: Alert - much more alert today, Oriented x3, Cooperative, Well developed, Well nourished HEENT: PERRLA, EOMI Oral: Moist Mucosa, No Gingival or Mucosal Lesions/ Ulcerations Neck: Supple, Trachea Midline Lungs: Clear to auscultation Cardiovascular: Regular rate, Regular Rhythm, Normal S1, Normal S2, Murmur, No rub noted, No Gallop Abdomen: Bowel Sounds Present, Soft, Non Tender, Non-Distended, Obese Extremities: No clubbing, No cyanosis, No edema, No Calf Tenderness, - - Intact neurovascular bundle both lower extremities Skin: No rashes, No breakdown, - - Knee dressing is dry and there is no erythema around the dressing Neurological: Cranial nerves II-XII grossly intact, Neuro grossly intact Vital Signs Temp Pulse Resp BP Pulse Ox 97.8 F 84 18 132/69 H 96 09/19/18 07:59 09/19/18 07:59 09/19/18 07:59 09/19/18 07:59 09/19/18 10:06 Oxygen Flow Rate (L/min) 2 Oxygen Delivery Method Room Air Weight: 176 lb 12.972 oz Body Mass Index (BMI) 30.6 Intake and Output for Last 24 Hours 09/17/18 09/18/18 09/19/18 23:59 23:59 23:59 Intake Total 2866 / 2866 774 / 1124 2053 Output Total 325 / 325 / 2000 1999 Balance 2541 / 2541 -26 / -876 54 / 54 Laboratory Tests Past 24 Hrs 09/18/18 09/18/18 09/18/18 16:10 18:54 21:46 WBC RBC Hgb 7.5 L Hct 24.2 L MCV MCH MCHC RDW Std Deviation RDW Coeff of Mahin Plt Count MPV Sodium Potassium Chloride Carbon Dioxide Anion Gap BUN Creatinine Estim Creat Clear Calc Est GFR (MDRD) Af Amer Est GFR (MDRD) Non-Af BUN/Creatinine Ratio Glucose Calcium Phosphorus Total Bilirubin AST ALT Alkaline Phosphatase Total Protein Albumin Globulin Albumin/Globulin Ratio Urine Color Yellow Urine Clarity Clear Urine pH 6.0 Ur Specific Rosamond 1.005 Urine Protein Negative Urine Glucose (UA) Normal Urine Ketones Negative Urine Occult Blood 50 H Urine Nitrite Negative Urine Bilirubin Negative Urine Urobilinogen Normal Ur Leukocyte Esterase 500 H Urine RBC 0-5 SEEN Urine WBC 0-5 SEEN Ur Squamous Epith Cells 0-5 SEEN Urine Bacteria 0 SEEN Urine Mucus 0 SEEN Blood Type A POSITIVE Antibody Screen NEGATIVE Crossmatch See Detail 09/19/18 09/19/18 07:30 07:30 WBC 7.5 RBC 3.38 L Hgb 9.7 L Hct 29.9 L MCV 88.5 MCH 28.7 MCHC 32.4 RDW Std Deviation 45.7 H RDW Coeff of Mahin 14.2 Plt Count 152 MPV 8.9 Sodium 137 Potassium 4.5 Chloride 107 Carbon Dioxide 27.0 Anion Gap 3 L BUN 33 H Creatinine 1.40 H Estim Creat Clear Calc 32.26 Est GFR (MDRD) Af Amer 48 L Est GFR (MDRD) Non-Af 40 L BUN/Creatinine Ratio 23.6 H Glucose 159 H Calcium 8.7 Phosphorus 3.9 Total Bilirubin 0.30 AST 16 ALT < 6 L Alkaline Phosphatase 85 Total Protein 6.7 Albumin 2.7 L Globulin 4.0 Albumin/Globulin Ratio 0.7 L Urine Color Urine Clarity Urine pH Ur Specific Rosamond Urine Protein Urine Glucose (UA) Urine Ketones Urine Occult Blood Urine Nitrite Urine Bilirubin Urine Urobilinogen Ur Leukocyte Esterase Urine RBC Urine WBC Ur Squamous Epith Cells Urine Bacteria Urine Mucus Blood Type Antibody Screen Crossmatch POC Glucose 09/19/18 09/18/18 09/18/18 06:33 21:55 16:18 POC Glucose 145 H 180 H 195 H Medical Necessity - Tobacco Use Smoking Status: Former smoker Assessment/Plan All Active Problems (Last Reviewed 03/25/18 @ 08:28 by Brenda Burks) Syncope (Resolved) Impressions 1. Syncope-likely secondary to multiple factors including orthostatic hypotension, sedation secondary to scopolamine patch, beta blockers in a conjunction with dehydration in a pt who can not increase HR due to beta blockers. 2. Apneic periods often suspect secondary to sedation from scopolamine patch which has been removed 3. Chronic renal failure stage III 4. Chronic respiratory failure with hypoxemia on home O2? not appropriately using O2 at home........will need to get Dr. Alfaro's records to find out why she even has oxygen 5. Diabetes mellitus type 2 6. History of DVT on outpatient Coumadin....... 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 Acute blood loss anemia on chronic anemia-stable 8. Paroxysmal atrial fibrillation Being discharged by ortho today Discussed the results of the overnight trending pulse ox with her and suggested she discuss obtaining a sleep study with her PCP Recommended weight loss and informed her that there is a WHY WEIGHT program at the hospital run by the dieticians and all she needs to attend is a referral from her PCP She will follow-up with Dr. Alfaro in 1 week for repeat INR. Code Visit Inpatient E&M: 15008 Subs Hosp L2
[2018-09-19] MEDS: Insulin Lispro 100 UNIT/ML INSULN.PEN SC (11:31)
[2018-09-19 11:55] LABS: Bedside Glucose 195 mg/dL (70-110)
== END 2018-09-19 13:15 | disposition home or self-care (01) | DRG 470 ==
LOC: ACINP 09:33 → ICU 09-18 06:31 → MS3 09-18 09:43
PROVIDERS: Physician Assistant; Admitting Provider Specialist; Family Provider Internal Medicine; PCP Internal Medicine; Referring Provider Specialist; Visit Provider Internal Medicine
PROC: 0SR902A Replacement of Right Hip Joint with Metal on Polyethylene Synthetic Substitute, Uncemented, Open Approach (ICD-10-PCS; CPT 27284; principal; 2018-09-17 11:20)
DX: M16.11 Unilateral primary osteoarthritis, right hip (principal); J96.11 Chronic respiratory failure with hypoxia; D62 Acute posthemorrhagic anemia; I95.1 Orthostatic hypotension; E86.0 Dehydration; G89.29 Other chronic pain; N18.3 Chronic kidney disease, stage 3 (moderate); E11.22 Type 2 diabetes mellitus with diabetic chronic kidney disease; I48.0 Paroxysmal atrial fibrillation; J45.909 Unspecified asthma, uncomplicated; R00.1 Bradycardia, unspecified; Z99.81 Dependence on supplemental oxygen; Z86.73 Personal history of transient ischemic attack (TIA), and cerebral infarction without residual deficits; Z86.718 Personal history of other venous thrombosis and embolism; Z79.01 Long term (current) use of anticoagulants; Z86.711 Personal history of pulmonary embolism; T44.3X5A Adverse effect of other parasympatholytics [anticholinergics and antimuscarinics] and spasmolytics, initial encounter; Z87.891 Personal history of nicotine dependence; Z68.30 Body mass index [BMI] 30.0-30.9, adult
CPT/HCPCS: 36415; 36416; 73501; 73502; 76000; 80048; 80053; 81001; 82962; 83036; 83735; 84100; 84484; 85014; 85018; 85025; 85027; 85610; 86850; 86900; 86920; 86922; 87077; 87081; 93005; 94640; 94762; 97110; 97162; 97166; 97530; 99251; C1776; J7120; P9016; A4216; G0463

== ENCOUNTER 2018-10-02 06:14 | Outpatient (RCR) | payer MEDICARE, SELFPAY ==
[2018-09-17 15:48] VITALS: BMI 30.6
[2018-09-24 07:31] LABS: International Normalized Ratio 1.7; Prothrombin Time (Protime)PT. 19.5 SECONDS (11.7-14.9)
[2018-09-26 08:22] LABS: International Normalized Ratio 2.2
[2018-09-26 08:30] LABS: AST(SGOT) 22 U/L (15-37); Alanine Aminotransfer ALT/SGPT 24 U/L (13-56); Alkaline Phosphatase 98 U/L (45-117); Bilirubin, Direct 0.07 mg/dL (0.00-0.30); Cholesterol 180 mg/dL (200); Globulin 4.7 g/dL (2.2-4.2); High Density Lipoprotein 37 mg/dL; Protein, Total 7.7 g/dL (6.4-8.2); Triglycerides 179 mg/dL; Very Low Density Lipoprotein 36 mg/dL (5-40)
[2018-10-02 07:30] LABS: International Normalized Ratio 2.4; Prothrombin Time (Protime)PT. 26.5 SECONDS (11.7-14.9)
== END 2018-10-02 07:00 ==
LOC: LAB 06:14
PROVIDERS: Nurse Practitioner Family; Family Provider Internal Medicine; PCP Internal Medicine; Referring Provider Internal Medicine; Visit Provider Internal Medicine
DX: I48.92 Unspecified atrial flutter (principal); I82.5Y3 Chronic embolism and thrombosis of unspecified deep veins of proximal lower extremity, bilateral; E78.5 Hyperlipidemia, unspecified
CPT/HCPCS: 36415; 80061; 80076; 85610

== ENCOUNTER 2018-11-06 06:08 | Outpatient (RCR) | payer MEDICARE, SELFPAY ==
[2018-10-09 08:49] VITALS: BMI 30.1
[2018-10-23 07:41] LABS: International Normalized Ratio 3.4; Prothrombin Time (Protime)PT. 34.3 SECONDS (11.7-14.9)
[2018-10-28 07:57] LABS: Cholesterol 176 mg/dL (200); High Density Lipoprotein 38 mg/dL; Triglycerides 193 mg/dL; Very Low Density Lipoprotein 39 mg/dL (5-40)
[2018-10-28 07:58] LABS: Hemoglobin A1c 6.2 % (4.2-6.3)
[2018-11-06 08:21] LABS: Prothrombin Time (Protime)PT. 38.2 SECONDS (11.7-14.9)
[2018-11-06 08:29] LABS: International Normalized Ratio 3.9
== END 2018-11-06 07:00 | disposition home or self-care (01) ==
LOC: LAB 06:08
PROVIDERS: Family Provider Internal Medicine; PCP Internal Medicine; Referring Provider Internal Medicine; Visit Provider Internal Medicine
DX: I48.92 Unspecified atrial flutter (principal); I82.5Y3 Chronic embolism and thrombosis of unspecified deep veins of proximal lower extremity, bilateral; E78.5 Hyperlipidemia, unspecified; E11.8 Type 2 diabetes mellitus with unspecified complications
CPT/HCPCS: 36415; 80061; 83036; 85610

== ENCOUNTER → 2018-11-19 06:57 | Outpatient (CLI) | payer MEDICARE, SELFPAY ==
[2018-10-09 08:49] VITALS: BMI 30.1
--- NOTE | 2018-11-19 07:00 | CT_ITS ---
STUDY: CT ABDOMEN AND PELVIS WITH AND WITHOUT CONTRAST REASON FOR EXAM: Female, 68 years old. Gross hematuria RADIATION DOSAGE (If Supplied By Facility): CTDIvol = ( 16.92 ) mGy, DLP = ( 2210.95 ) mGycm TECHNIQUE: Transaxial images were obtained from the dome of the diaphragm to the symphysis pubis without oral contrast. IV Isovue 300 100 was administered. Sagittal and coronal images were reconstructed. Individualized dose optimization techniques were used for this CT. COMPARISON: November 20, 2013 FINDINGS: There is minor atelectasis within the dependent portion lungs.. The visualized portions of the heart are within normal limits. Moderate-sized hiatal hernia present. Normal liver. Normal gallbladder and extrahepatic biliary system. Normal spleen. Normal pancreas. Normal bilateral adrenal glands. No evidence for renal obstruction or ureteral calculus. No focal renal mass observed. Normal visualized stomach. Normal small intestine. Normal colon. No evidence for acute appendicitis. Atherosclerotic changes of the aorta without evidence for aneurysm. Normal inferior vena cava. Normal retroperitoneum. Nonspecific thickening of the castrejon of the bladder may be consistent with cystitis. There is air-fluid level possibly due to recent catheterization although cannot exclude gas forming bacterial infection. Clinical correlation recommended Uterus not visualized status post hysterectomy Small bilateral fat-containing inguinal hernias. Tiny fat-containing umbilical hernia Lumbar spine demonstrates degenerative changes. There is multilevel laminectomy and posterior fusion. CT/CT Abd/Pelvis W/WO Contrast IMPRESSION: No evidence for renal obstruction or ureteral calculus Findings which may be consistent with nonspecific cystitis. Status post hysterectomy Other findings as above Electronically Signed: Walter Funes MD at 17:03 EDT , Service support ,
[2018-11-19 07:15] LABS: CREATININE FINGERSTICK 1.2 mg/dL (0.55-1.02)
== END ==
PROVIDERS: Family Provider Internal Medicine; PCP Internal Medicine; Referring Provider Nurse Practitioner Adult Health; Visit Provider Nurse Practitioner Adult Health
DX: R31.0 Gross hematuria (principal); Z79.01 Long term (current) use of anticoagulants
CPT/HCPCS: 36415; 74178; 85610; Q9967

== ENCOUNTER 2018-12-18 06:04 | Outpatient (RCR) | payer MEDICARE, SELFPAY ==
[2018-10-09 08:49] VITALS: BMI 30.1
[2018-11-19 08:28] LABS: International Normalized Ratio 2.2; Prothrombin Time (Protime)PT. 24.6 SECONDS (11.7-14.9)
[2018-12-04 07:36] LABS: International Normalized Ratio 1.9; Prothrombin Time (Protime)PT. 21.6 SECONDS (11.7-14.9)
[2018-12-18 07:30] LABS: International Normalized Ratio 1.9; Prothrombin Time (Protime)PT. 22.1 SECONDS (11.7-14.9)
== END 2018-12-18 18:00 | disposition home or self-care (01) ==
LOC: LAB 06:04
PROVIDERS: Family Provider Internal Medicine; PCP Internal Medicine; Referring Provider Internal Medicine; Visit Provider Internal Medicine
DX: I48.92 Unspecified atrial flutter (principal); I82.5Y3 Chronic embolism and thrombosis of unspecified deep veins of proximal lower extremity, bilateral
CPT/HCPCS: 36415; 85610

== ENCOUNTER 2019-01-08 06:04 | Outpatient (RCR) | payer MEDICARE, SELFPAY ==
[2018-10-09 08:49] VITALS: BMI 30.1
[2019-01-01 07:53] LABS: International Normalized Ratio 1.3; Prothrombin Time (Protime)PT. 15.5 SECONDS (11.7-14.9)
[2019-01-08 07:48] LABS: International Normalized Ratio 1.8; Prothrombin Time (Protime)PT. 21.2 SECONDS (11.7-14.9)
== END 2019-01-08 18:00 | disposition home or self-care (01) ==
LOC: LAB 06:04
PROVIDERS: Family Provider Internal Medicine; PCP Internal Medicine; Referring Provider Internal Medicine; Visit Provider Internal Medicine
DX: I82.5Y3 Chronic embolism and thrombosis of unspecified deep veins of proximal lower extremity, bilateral (principal); I48.92 Unspecified atrial flutter
CPT/HCPCS: 36415; 85610

== ENCOUNTER 2019-02-12 05:58 | Outpatient (RCR) | payer MEDICARE, SELFPAY ==
[2018-10-09 08:49] VITALS: BMI 30.1
[2019-01-22 08:38] LABS: International Normalized Ratio 1.5
[2019-01-22 12:49] LABS: Albumin, Serum 3.6 g/dL (3.2-5.0); BUN 34 mg/dL (7-18); BUN/Creat Ratio 27.2 RATIO (10-20); Calcium,Total 9.4 mg/dL (8.5-10.1); Chloride 107 mmol/L (98-107); Creatinine, Serum 1.25 mg/dL (0.55-1.02); EST Glomerular Filtration Rate 45 mL/min (>60); Est Glom Filt Rate - Afr Amer 55 mL/min (>60); Glucose 91 mg/dL (74-106); Phosphorus 3.2 mg/dL (2.5-4.9); Potassium 4.6 mmol/L (3.5-5.1); Sodium Level 139 mmol/L (136-145)
[2019-01-22 12:52] LABS: Microalbumin,Random Urine 19.4 mg/L (NO RANGE EST.)
[2019-01-22 13:06] LABS: PTHIN 20.1 pg/mL (18.4-80.1)
[2019-01-29 07:33] LABS: International Normalized Ratio 1.9; Prothrombin Time (Protime)PT. 21.9 SECONDS (11.7-14.9)
[2019-02-05 07:57] LABS: Prothrombin Time (Protime)PT. 36.4 SECONDS (11.7-14.9)
[2019-02-05 08:09] LABS: International Normalized Ratio 3.6
[2019-02-12 07:08] LABS: International Normalized Ratio 3.2; Prothrombin Time (Protime)PT. 32.6 SECONDS (11.7-14.9)
== END 2019-02-12 18:00 | disposition home or self-care (01) ==
LOC: LAB 05:58
PROVIDERS: Family Provider Internal Medicine; PCP Internal Medicine; Referring Provider Internal Medicine Nephrology; Visit Provider Internal Medicine
DX: I82.5Y3 Chronic embolism and thrombosis of unspecified deep veins of proximal lower extremity, bilateral (principal); I48.92 Unspecified atrial flutter; N18.3 Chronic kidney disease, stage 3 (moderate); E11.22 Type 2 diabetes mellitus with diabetic chronic kidney disease
CPT/HCPCS: 36415; 80069; 82043; 82570; 83970; 85610

== ENCOUNTER 2019-03-19 05:57 | Outpatient (RCR) | payer MEDICARE, SELFPAY ==
[2018-10-09 08:49] VITALS: BMI 30.1
[2019-02-19 08:56] LABS: International Normalized Ratio 2.9; Prothrombin Time (Protime)PT. 30.7 SECONDS (11.7-14.9)
[2019-03-05 07:36] LABS: International Normalized Ratio 2.9; Prothrombin Time (Protime)PT. 30.2 SECONDS (11.7-14.9)
[2019-03-19 07:53] LABS: International Normalized Ratio 1.1; Prothrombin Time (Protime)PT. 14.3 SECONDS (11.7-14.9)
== END 2019-03-19 18:00 | disposition home or self-care (01) ==
LOC: LAB 05:57
PROVIDERS: Family Provider Internal Medicine; PCP Internal Medicine; Referring Provider Internal Medicine; Visit Provider Internal Medicine
DX: I48.92 Unspecified atrial flutter (principal); I82.5Y3 Chronic embolism and thrombosis of unspecified deep veins of proximal lower extremity, bilateral
CPT/HCPCS: 36415; 85610

== ENCOUNTER 2019-04-09 06:05 | Outpatient (RCR) | payer MEDICARE, SELFPAY ==
[2018-10-09 08:49] VITALS: BMI 30.1
[2019-03-26 08:28] LABS: International Normalized Ratio 1.7; Prothrombin Time (Protime)PT. 19.7 SECONDS (11.7-14.9)
[2019-04-09 07:08] LABS: International Normalized Ratio 1.4; Prothrombin Time (Protime)PT. 16.7 SECONDS (11.7-14.9)
== END 2019-04-09 18:00 | disposition home or self-care (01) ==
LOC: LAB 06:05
PROVIDERS: Family Provider Internal Medicine; PCP Internal Medicine; Referring Provider Internal Medicine; Visit Provider Internal Medicine
DX: I82.5Y3 Chronic embolism and thrombosis of unspecified deep veins of proximal lower extremity, bilateral (principal); I48.92 Unspecified atrial flutter
CPT/HCPCS: 36415; 85610

== ENCOUNTER 2019-04-20 11:19 | Day surgery (SDC) | payer MEDICARE, SELFPAY ==
[2018-10-09 08:49] VITALS: BMI 30.1
--- NOTE | 2019-04-19 10:37 | HP.PCM_ITS ---
History and Physical Date of Admission: 04/20/19 Annette Gore 1950 ? ? REFERRING PHYSICIAN: Bernardo Alfaro MD ? CHIEF COMPLAINT: Repeat colonoscopy needed ? HPI: The patient is a 68 year old female presents for consideration of repeat colonoscopy.. She had an attempted colonoscopy on 08/05/2018, but it was incomplete due to poor colon cleansing preparation. There may have been a right colon polyp present. She was also noted to need increased IV sedation. She had initial presentation of anemia with a Hgb of 8.8, her last Hgb was normal at 11. She had also been found to be stool guaiac positive. ?She is also on coumadin from chronic DVT. She is a poor historian. She denies noting blood in her stools. Denies changes in bowel habits. 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 ? ? PAST MEDICAL HISTORY ? Acute, but ill-defined, cerebrovascular disease 1989 ? Allergic rhinitis, cause unspecified ? ? Allergic rhinitis ? Anal and rectal polyp ? ? FIBROPLASTIC ? Anemia, unspecified ? ? Atrial flutter, paroxysmal (HCC) 03/14/2018 ? CKD (chronic kidney disease) stage 3, GFR 30-59 ml/min ([facility]) 07/12/2017 ? Cognitive impairment 04/10/2017 ? Colitis, collagenous 09/03/2011 ? Degenerative joint disease of right knee 10/19/2010 ? Degenerative lumbar spinal stenosis ? ? Generalized osteoarthrosis, unspecified site ? ? KNEE JOINT REPLACEMENT STATUS 09/02/2006 ? Left foot drop 01/05/2011 ? Lichen Simplex Chronicus (LSC) 04/24/2013 ? Lung nodule 10/20/2010 ? Mixed incontinence 10/28/2014 ? Dr. Almendarez ? Nontraumatic rupture of patellar tendon 07/2007 ? sugical repair 07/29/[address] Devries ? Other and unspecified hyperlipidemia 06/20/2012 ? Other pulmonary embolism and infarction 10/30/2006 ? Postlaminectomy syndrome 02/01/2016 ? Postmenopausal atrophic vaginitis 06/27/2016 ? Scoliosis ? ? Xray from [facility] 08/03/11 showed; also has narrowing L3-L4 and L4- L5; DJD L3, L4, L5; slight anterior displacement L4 on L5. ? Symptomatic menopausal or female climacteric states ? ? Unspecified asthma(493.90) ? ? Unspecified hemorrhoids without mention of complication ? ? Hemorrhoids ? Urge incontinence 02/01/2005 ? VENOUS THROMBOSIS LOWER EXTREMITY NOS 10/30/2006 ? Post op left knee arthroscopy; ?PE at that time ? PAST SURGICAL HISTORY ? DELIVERY ONLY ? 1988 ? , low cervical ? COLONOSCOP W/ OR W/O BRSH SPEC ? 08/05/2018 ? Colonoscopy [facility] (Notes Tab) ? COLONOSCOPY ? 03/25/01 ? R Cebul - hyperplastic polyp ? COLONOSCOPY W/BX ? 05/17/11 ? repeat ? EGD W/O BRSH SPECIMEN W/BX ? 05/17/11 ? FILTER PLACEMENT (VENA CAVA) ? 11-03-12 ? HEMORRHOIDECT INTER/EXTER SIMP ? 03/27/01 ? HIP SURGERY HX Right 06/11/2018 ? KNEE SCOPE,DIAGNOSTIC Left 05/10/2003 ? Arthroscopy, knee Left ? L'SCOPE DX W/WO BRUSHINGS/WASHINGS ? 1999 ? Laparoscopy ? LAMINECTOMY,LUMBAR ? 1994 ? Back surgery ? LAMINECTOMY,LUMBAR ? 11/05/2012 ? Laminectomy, lumbar ? LIGATE FALLOPIAN TUBE ? 1988 ? Tubal ligation ? OPEN RX ANKLE DISLOCATN+FIXATN ? 1986 ? ORIF Ankle ? PAST SURGICAL HISTORY OF ? 2003 ? Thumb bilateral ? PAST SURGICAL HISTORY OF Left 07/2006 ? partial knee replacement left ? PAST SURGICAL HISTORY OF Right 2007 ? repair knee cap ? PAST SURGICAL HISTORY OF ? 03/26/2014 ? transurethral resection of bladder lesion. vaginal sling. Dr. Almendarez ? REMOVAL OF OVARY/TUBE(S) ? 1999 ? Salpingo-oophorectomy bilateral ? RETRIEV INTRAVASC FOREGN BODY ? 01/30/13 ? filter removal ? TOTAL ABDOM HYSTERECTOMY ? 1999 ? A&P REPAIR hyst for benign reason ? TOTAL HIP JOINT REPLACEMENT Right 08/30/2018 ? anterior approach. Dr. Blevins ? TOTAL KNEE REPLACEMENT Right 2008 ? right knee replacement ? ? ? Current Outpatient Medications ? warfarin (COUMADIN) 5 mg tablet Take 1 tablet by mouth daily as directed. ? omeprazole (PRILOSEC) 20 mg capsule TAKE ONE CAPSULE BY MOUTH DAILY 1/2 HOUR BEFORE BREAKFAST ? Levocetirizine 5 mg tablet Take 1 tablet by mouth once daily. ? albuterol (PROVENTIL) 2.5 mg /3 mL (0.083 %) nebulizer solution Use 3 mL via nebulizer every 4 hours as needed for Wheezing/Shortness of Breath. Use over 5-15minutes. ? blood sugar diagnostic (TRUE METRIX GLUCOSE TEST STRIP) test strip Test 2 times daily Dx: E11.8 Insulin: No ? lidocaine 5 % gel Apply to affected area three times daily as needed. ? simvastatin (ZOCOR) 40 mg tablet Take 1 tablet by mouth daily at bedtime. For cholesterols. ? fluticasone-salmeterol (ADVAIR DISKUS) 100-50 mcg/dose dsdv Inhale 1 Puff as instructed twice daily. Finishing her supply. ? metFORMIN (GLUCOPHAGE) 500 mg tablet Take 1 tablet by mouth daily with breakfast. ? Estradiol (YUVAFEM) 10 mcg tab vaginal tablet Use 1 tablet vaginally every Saturday and Saturday. ? ferrous sulfate (IRON) 325 mg (65 mg iron) tablet Take 1 tablet by mouth twice daily. ? Nebulizer NEBULIZER FOR HOME USE. DX: Asthma. Use as directed. ? traMADol (ULTRAM) 50 mg tablet Take 1 tablet by mouth three times daily as needed for Pain. Per Dr. Cristy Roman, pain management. ? Blood-Glucose Meter (TRUE METRIX GLUCOSE METER) [facility] Use daily as directed. Dx: E11.8 Insulin: No ? gabapentin (NEURONTIN) 800 mg tablet Take 1 tablet by mouth three times daily. ? Lancets lancets Test blood sugar(s) 2 times daily. Dx: Type 2 DM - Uncontrolled E11.9 Insulin: No ? ASCORBIC ACID/BIOFLAVONOIDS (MELANIE C ORAL) Take 1 tablet by mouth twice daily. ? oxybutynin XL (DITROPAN XL) 10 mg 24 hr tablet Take 1 tablet by mouth once daily. ? albuterol HFA (PROVENTIL HFA) 90 mcg/actuation inhaler Inhale 2 Puffs as instructed every 4 hours as needed for Wheezing/Shortness of Breath. MAY GIVE AVAILABLE EQUIVALENT ALBUTEROL ? Calcium-Cholecalciferol, D3, (CALCIUM 500 + D, D3,) 500-125 mg-unit ORAL Take two(2) tablets twice daily. ? [place]-3 Fatty Acids-Vitamin E (FISH OIL) 1,000 mg ORAL Cap Take 3 pills once daily (?dose) ? THERAPEUTIC MULTIVITAMIN ORAL TAB Take one(1) tablet daily. ? ? ALLERGIES: Chlorhexidine; Cotton; Darvon [Propoxyphene Hcl]; Feathers; Grass Pollen; Morphine; Vinegar; Wool ? PERSONAL HISTORY: Social History ?Tobacco Use ? Smoking status: Former Smoker ? ? Last attempt to quit: 02/18/1969 ? ? Years since quittin.1 ? Smokeless tobacco: Never Used Substance Use Topics ? Alcohol use: No ? ? Comment: rarely ? Drug use: No ? FAMILY HISTORY: ? Blood Disease Mother ? ? blood clot, coumadin ? Hypertension Mother ? ? Coronary Artery Disease Mother 84 ? Cancer Father ? ? poss bladder ? Prostate Cancer Father ? ? Breast Cancer Sister 64 ? None Sister ? ? None Sister ? ? Diabetes Paternal Grandmother ? ? Colon Cancer Paternal Grandmother ? ? Stroke Paternal Grandfather ? ? Diabetes Paternal Grandfather ? ? Cancer Maternal Grandfather ? ? LEUKEMIA ? Cancer Maternal Uncle ? ? Psychiatry Sister ? ? anxiety ? ? REVIEW OF SYSTEMS: General - denies fevers, complaint of increased fatigue Cardiovascular - denies chest pain, denies palpitations Pulmonary -?some?shortness of breath, increased cough, nasal congestion Gastrointestinal - denies abdominal pain Neurological -?has headaches,?denies seizures Genitourinary -?has chronic kidney disease stage III,?denies burning with urination Hematological -?on coumadin,?denies spontaneous/prolonged bleeding Skin - denies nonhealing skin wounds Musculoskeletal -?has some back pain Endocrine -?has diabetes Psychological ??denies hallucinations ? ? PHYSICAL EXAMINATION: General: ?The patient is 67 year old female, well nourished, well hydrated in no acute distress. ?The patient is oriented to time, place, and person. VITALS: Blood pressure 104/68, pulse 94, temperature 36.1 ?C (97 ?F), temperature source Temporal Artery, height 160 cm (5' 3), weight 75.8 kg (167 lb), SpO2 98 %. Body mass index is 29.58 kg/m?. Head ??Normocephalic. EOM intact with sclera clear and no icterus noted.?Wearing glasses.??Mouth with mucus membranes moist. Neck - supple with no jugular venous distention noted. Trachea is midline. No masses noted. Lungs ??clear to auscultation. Normal breath sounds ?No rales/rhonchi/wheezing noted. No labored breathing noted, such as retractions. Intermittent coughing by patient Heart ??normal S1 and S2 auscultated. No rubs/clicks/murmurs noted. Regular rat e. Abdomen ??soft and benign. Normal bowel sounds Extremities ??no calf tenderness noted. No pitting edema noted. Skin ??normal skin integrity. Neurological ??gait normal, no focal deficits noted. Psych ??calm and appropriate ?? IMPRESSION: colonoscopy for guiaic positive stools - incomplete colonoscopy last year ? PLAN: I have discussed the above with the patient and her who is present with her. Will plan on repeat colonoscopy, this time with two day colon cleansing preparation and IV anesthesia/MAC and WCH as per patient's wishes. I have explained the procedure to the patient. I have counseled the patient as to the risks of the procedure, including but not limited to: infection, bleeding, perforation of the GI tract, injury to any intraabdominal organs such as the liver/spleen, inability to complete the procedure, complications of anesthesia, etc. ? the patient understands. The patient wishes to proceed. I have answered all questions to the patient?s satisfaction and the patient has no further questions. . ? Annette Escobar MD
[2019-04-20 11:46] LABS: Prothrombin Time Fingerstick 15.3 SEC (11.9-14.4)
[2019-04-20] MEDS: Lactated Ringers 1,000 ML 75 ML IV (11:50)
[2019-04-20 11:51] VITALS: BP 134/80; PULSE 74; RESP 14; TEMP 36.8; O2SAT 98; BMI 28.5
[2019-04-20 12:11] LABS: Bedside Glucose 138 mg/dL (70-110)
--- NOTE | 2019-04-20 12:30 | COLBX_PTH ---
PATIENT: MICHAEL COMBS LOC: EN U#:[id number] AGE/SX: 68/F ROOM: RE04/20/[address]: Dr. Michael Escobar MD : 1950 BED: DIS: 04/20/2019 SPEC #: [id number] RECD: 04/20/19 13:30 STATUS: JASON REQ #: [id number] ILANA: 04/20/19 12:[address]: Michael Escobar DEPT: SURGICAL PATHOLOGY RECD BY: Christiano Gaines ENTERED: 04/20/19 14:08 SP TYPE: COLON BX OTHR DR: Dr. Bernardo Alfaro MD Tissues: COLON BIOPSY Procedures: Surgery Specimen Level IV HEADER OPERATION: Colonoscopy (MAC) PRE-OP DIAGNOSIS: Guaiac positive stool; incomplete colonoscopy last year TISSUE SUBMITTED: Hepatic flexure polyp MICROSCOPIC DIAGNOSIS Hepatic flexure polyp, biopsy: Fragments of tubular adenoma. SJ:dustin 04/21/19 MICROSCOPIC DESCRIPTION Slides are reviewed. GROSS DESCRIPTION Received in fixative is one container labeled with the patient's name and designated hepatic flexure polyp. The specimen consists of multiple irregular fragments of light coelho soft tissue that in aggregate measure 0.8 x 0.6 x 0.1 cm. The specimen is totally submitted in one cassette. / SJ:rg 04/20/19 TC:5 CPT: 42410
[2019-04-20 13:15] VITALS: BP 134/80; BP 99/70; PULSE 82; RESP 16; TEMP 36.2; O2SAT 94
--- NOTE | 2019-04-20 13:16 | OP.COLON_ITS ---
Patient Name: Annette Gore Procedure Date: 04/20/2019 12:28 PM Date of : 1950 Age: 68 Procedure: Colonoscopy Indications: Screening for colorectal malignant neoplasm Providers: Annette Escobar MD Referring MD: Bernardo Alfaro Medicines: See the Anesthesia note for documentation of the administered medications Patient Profile: Refer to note in patient chart for documentation of history and physical. Last Colonoscopy: 2018. Complications: No immediate complications. Procedure: Pre-Anesthesia Assessment: - see anesthesia note After I obtained informed consent, the scope was passed under direct vision. Throughout the procedure, the patient's blood pressure, pulse, and oxygen saturations were monitored continuously. The colonoscope was introduced through the anus and advanced to the cecum, identified by the appendiceal orifice, IC valve and transillumination. The colonoscopy was technically difficult and complex due to a significantly redundant colon. The patient tolerated the procedure well. The quality of the bowel preparation was poor, there was still retained fecal material. Therefore lavage and aspiration was done to clear the fecal material. This took some time. The castrejon were cleared adequately. Scope In: 12:35:03 PM Scope Withdrawal Time 0 hours 16 minutes 27 seconds Scope Out: 1:12:20 PM Total Procedure Duration Time 0 hours 37 minutes 17 seconds Findings: The perianal and digital rectal examinations were normal. A 7 to 13 mm polyp was found in the hepatic flexure. The polyp was semi-pedunculated. The polyp was removed with a hot snare. Resection and retrieval were complete. Verification of patient identification for the specimen was done by the nurse. Estimated blood loss was minimal. Non-bleeding internal hemorrhoids were found. Impression: - One 7 to 13 mm polyp at the hepatic flexure, removed with a hot snare. Resected and retrieved. - Non-bleeding internal hemorrhoids. Recommendation: - Repeat colonoscopy date to be determined after pending pathology results are reviewed for surveillance based on pathology results. - My office will telephone with pathology results in 1-2 weeks - Continue present medications. Procedure Code(s): --- Professional --- 41437, Colonoscopy, flexible; with removal of tumor(s), polyp(s), or other lesion(s) by snare technique Diagnosis Code(s): --- Professional --- Z12.11, Encounter for screening for malignant neoplasm of colon D12.3, Benign neoplasm of transverse colon (hepatic flexure or splenic flexure) K64.8, Other hemorrhoids CPT copyright 2017 [employer]. All rights reserved. The codes documented in this report are preliminary and upon mash preparatory operator review may be revised to meet current compliance requirements. MD Annette De Los Santos MD 04/20/2019 1:16:11 PM This report has been signed electronically. Number of Addenda: 0 Note Initiated On: 04/20/2019 12:28 PM
--- NOTE | 2019-04-20 13:16 | OP.CCLET_ITS ---
04/20/2019 Bernardo Alfaro [address] [place] [address] Re : Colonoscopy procedure for Annette Gore Dear Dr. Alfaro This procedure was performed on Saturday, April 20, 2019. My impressions and recommendations are as follows: Impressions : - One 7 to 13 mm polyp at the hepatic flexure, removed with a hot snare. Resected and retrieved. - Non-bleeding internal hemorrhoids. Recommendations : - Repeat colonoscopy date to be determined after pending pathology results are reviewed for surveillance based on pathology results. - My office will telephone with pathology results in 1-2 weeks - Continue present medications. My findings are described in the full procedure note, which is enclosed. If I can be of further assistance, please feel free to contact me at Doctor phone number(s): , Work: . Sincerely, MD Annette De Los Santos MD 04/20/2019 1:16:11 PM This report has been signed electronically.
[2019-04-20 13:20] VITALS: BP 134/80; BP 99/64; PULSE 71; RESP 16; O2SAT 99
[2019-04-20 13:25] VITALS: BP 110/79; BP 134/80; PULSE 71; RESP 16; O2SAT 100
[2019-04-20 13:30] VITALS: BP 109/75; BP 134/80; PULSE 69; RESP 16; TEMP 36.4; O2SAT 98
[2019-04-20 13:56] VITALS: BP 134/80
== END 2019-04-20 13:58 | disposition home or self-care (01) ==
LOC: EN 11:19 → AC 11:31
PROVIDERS: PCP Internal Medicine; Referring Provider Internal Medicine; Visit Provider Surgery
PROC: 0DJD8ZZ Inspection of Lower Intestinal Tract, Via Natural or Artificial Opening Endoscopic (ICD-10-PCS; CPT 45378; principal; 2019-04-20 12:25)
DX: Z12.11 Encounter for screening for malignant neoplasm of colon (principal); K64.8 Other hemorrhoids; D12.3 Benign neoplasm of transverse colon; N18.3 Chronic kidney disease, stage 3 (moderate); I12.9 Hypertensive chronic kidney disease with stage 1 through stage 4 chronic kidney disease, or unspecified chronic kidney disease; I48.92 Unspecified atrial flutter; I48.91 Unspecified atrial fibrillation; Z79.01 Long term (current) use of anticoagulants; Z87.891 Personal history of nicotine dependence; Z80.3 Family history of malignant neoplasm of breast; Z86.711 Personal history of pulmonary embolism; Z80.0 Family history of malignant neoplasm of digestive organs; Z79.51 Long term (current) use of inhaled steroids; Z79.84 Long term (current) use of oral hypoglycemic drugs; Z86.718 Personal history of other venous thrombosis and embolism; Z88.5 Allergy status to narcotic agent; Z96.641 Presence of right artificial hip joint; Z96.653 Presence of artificial knee joint, bilateral; D64.9 Anemia, unspecified; E11.9 Type 2 diabetes mellitus without complications; E78.5 Hyperlipidemia, unspecified
CPT/HCPCS: 45385; 36416; 82962; 85610; 88305; J7120

== ENCOUNTER → 2019-05-08 07:39 | Outpatient (CLI) | payer MEDICARE, SELFPAY ==
[2019-04-23 08:56] VITALS: BMI 29.4
--- NOTE | 2019-05-08 07:40 | ECHOCS_ITS ---
Reason For Study: Valve Replacement Eval Procedure This was a 2D Doppler, Color Flow transthoracic echocardiogram. Contrast injection was performed. Exam performed in department. Left Ventricle Mildly dilated left ventricle. The estimated ejection fraction is 45-50 %. Septal motion consistent with IVCD. No regional wall motion abnormalities noted. Right Ventricle Normal size and thickness. Normal systolic function. Atria Normal left atrium. Normal right atrium. Normal atrial septum. Mitral Valve Mild diffuse mitral valve thickening. Severe mitral annular calcification extending into the posterior leaflet. Mild mitral valve stenosis. Peak transmitral valve gradient 8 mmHg. Mean transmitral valve gradient 3 mmHg. Tricuspid Valve Normal tricuspid valve. Mild (1+) tricuspid valve insufficiency. Right ventricular systolic pressure estimated to be 33 mmHg. Aortic Valve Trisinus/trileaflet aortic valve. Mild diffuse aortic valve thickening. There is no aortic stenosis. Pulmonic Valve Normal pulmonic valve. Great Vessels Mildly dilated aortic root. Normal arch. Normal inferior vena cava. Inferior vena cava collapse with sniff. Pericardium/Pleural No pericardial effusion. Medication Diluted definity 3ml given slow IV push to enhance endocardial definition. MMode/2D Measurements & Calculations LVIDd: 5.1 cm IVSd: 1.3 cm Ao root diam: 3.8 cm LVIDs: 3.8 cm LVPWd: 0.91 cm RVDd: 3.5 cm FS: 26.5 % LAV(MOD-sp2): 40.7 ml LVAd ap4: 27.4 cm2 SV(MOD-sp4): 35.5 ml EDV(MOD-sp4): 80.4 ml EDV(sp4-el): 83.8 ml LVAs ap4: 17.9 cm2 ESV(MOD-sp4): 44.9 ml ESV(sp4-el): 42.9 ml EF(MOD-sp4): 44.2 % EF(sp4-el): 48.8 % SV(sp4-el): 40.8 ml LA A4 area: 19.9 cm2 LA dimension(2D): 4.5 cm RA A4 area: 10.8 cm2 Doppler Measurements & Calculations MV E max tono: 57.2 cm/sec Lat Peak E' Tono: 7.3 cm/sec Med Peak E' Tono: 5.9 cm/sec MV A max tono: 115.9 cm/sec E/E' lat: 7.8 E/E' med: 9.7 MV E/A: 0.49 MV V2 max: 143.7 cm/sec Ao V2 max: 145.1 cm/sec LV V1 max: 77.5 cm/sec MV max P.3 mmHg Ao max P.4 mmHg LV V1 max P.4 mmHg MV V2 mean: 76.2 cm/sec Ao V2 mean: 114.0 cm/sec MV mean P.7 mmHg Ao mean P.6 mmHg MV V2 VTI: 32.8 cm Ao V2 VTI: 32.8 cm PA V2 max: 64.7 cm/sec TR max tono: 262.4 cm/sec TR max P.5 mmHg Interpretation Summary Mildly dilated left ventricle. The estimated ejection fraction is 45-50 %. Mild mitral valve stenosis. Mild (1+) tricuspid valve insufficiency. Right ventricular systolic pressure estimated to be 33 mmHg. There is no aortic stenosis. Mildly dilated aortic root. Compared to echo report dated 04/07/2018, LV function has improved from 40% to 45-50%, mitral regurgitation has improved, and RVSP is about the same as well. The study was technically difficult. Contrast injection was performed. Ordering Physician: [place] Referring Physician: Bernardo Alfaro Performed By: Jannet Pantoja RDCS, RVT
== END ==
PROVIDERS: PCP Internal Medicine; Referring Provider Internal Medicine Cardiovascular Disease; Visit Provider Internal Medicine Cardiovascular Disease
DX: I35.0 Nonrheumatic aortic (valve) stenosis (principal)
CPT/HCPCS: 93306; Q9957; A4216; C8929

== ENCOUNTER 2019-05-14 05:56 | Outpatient (RCR) | payer MEDICARE, SELFPAY ==
[2018-10-09 08:49] VITALS: BMI 30.1
[2019-04-23 07:16] LABS: International Normalized Ratio 1.4; Prothrombin Time (Protime)PT. 17.1 SECONDS (11.7-14.9)
[2019-04-30 07:45] LABS: International Normalized Ratio 2.1; Prothrombin Time (Protime)PT. 23.7 SECONDS (11.7-14.9)
[2019-05-07 09:09] LABS: International Normalized Ratio 3.2; Prothrombin Time (Protime)PT. 32.9 SECONDS (11.7-14.9)
[2019-05-14 08:18] LABS: International Normalized Ratio 3.3; Prothrombin Time (Protime)PT. 33.5 SECONDS (11.7-14.9)
== END 2019-05-14 18:00 | disposition home or self-care (01) ==
LOC: LAB 05:56
PROVIDERS: Family Provider Internal Medicine; PCP Internal Medicine; Referring Provider Internal Medicine; Visit Provider Internal Medicine
DX: I48.92 Unspecified atrial flutter (principal); I82.5Y3 Chronic embolism and thrombosis of unspecified deep veins of proximal lower extremity, bilateral
CPT/HCPCS: 36415; 85610

== ENCOUNTER 2019-05-28 06:00 | Outpatient (RCR) | payer MEDICARE, SELFPAY ==
[2019-04-23 08:56] VITALS: BMI 29.4
[2019-05-28 07:49] LABS: International Normalized Ratio 2.1; Prothrombin Time (Protime)PT. 23.1 SECONDS (11.7-14.9)
[2019-05-28 08:02] LABS: Albumin, Serum 3.5 g/dL (3.2-5.0); BUN 44 mg/dL (7-18); BUN/Creat Ratio 32.6 RATIO (10-20); Calcium,Total 9.5 mg/dL (8.5-10.1); Chloride 110 mmol/L (98-107); Creatinine, Serum 1.35 mg/dL (0.55-1.02); EST Glomerular Filtration Rate 41 mL/min (>60); Est Glom Filt Rate - Afr Amer 50 mL/min (>60); Glucose 118 mg/dL (74-106); Phosphorus 3.7 mg/dL (2.5-4.9); Potassium 4.4 mmol/L (3.5-5.1); Sodium Level 141 mmol/L (136-145)
[2019-05-28 08:14] LABS: AST(SGOT) 15 U/L (15-37); Alanine Aminotransfer ALT/SGPT 22 U/L (13-56); Albumin, Serum 2.3 g/dL (3.2-5.0); Alkaline Phosphatase 96 U/L (45-117); Bilirubin, Direct 0.09 mg/dL (0.00-0.30); Cholesterol 58 mg/dL (200); Globulin 6.7 g/dL (2.2-4.2); High Density Lipoprotein 24 mg/dL; Triglycerides 52 mg/dL; Very Low Density Lipoprotein 10 mg/dL (5-40)
[2019-05-28 08:21] LABS: Microalbumin,Random Urine 95.1 mg/L (NO RANGE EST.); Microalbumin:Creatinine Ratio 192.9 mg/g CRE (<30 mg/g CRE)
== END 2019-06-18 18:00 | disposition home or self-care (01) ==
LOC: LAB 06:00
PROVIDERS: Internal Medicine Cardiovascular Disease; Internal Medicine Nephrology; Family Provider Internal Medicine; PCP Internal Medicine; Referring Provider Internal Medicine; Visit Provider Internal Medicine
DX: I48.92 Unspecified atrial flutter (principal); I82.5Y3 Chronic embolism and thrombosis of unspecified deep veins of proximal lower extremity, bilateral; E78.5 Hyperlipidemia, unspecified; E11.22 Type 2 diabetes mellitus with diabetic chronic kidney disease; N18.3 Chronic kidney disease, stage 3 (moderate)
CPT/HCPCS: 36415; 80061; 80069; 80076; 82043; 82570; 85610

== ENCOUNTER → 2019-06-08 16:17 | Outpatient (CLI) | payer MEDICARE, SELFPAY ==
[2019-04-23 08:56] VITALS: BMI 29.4
== END ==
PROVIDERS: PCP Internal Medicine; Referring Provider Urology; Visit Provider Urology
DX: N39.0 Urinary tract infection, site not specified (principal)
CPT/HCPCS: 87077; 87086; 87088; 87186

== ENCOUNTER 2019-06-25 06:06 | Outpatient (RCR) | payer MEDICARE, SELFPAY ==
[2019-04-23 08:56] VITALS: BMI 29.4
[2019-06-25 07:32] LABS: International Normalized Ratio 2.3; Prothrombin Time (Protime)PT. 25.1 SECONDS (11.7-14.9)
== END 2019-06-25 18:00 | disposition home or self-care (01) ==
LOC: LAB 06:06
PROVIDERS: Family Provider Internal Medicine; PCP Internal Medicine; Referring Provider Internal Medicine; Visit Provider Internal Medicine
DX: I48.92 Unspecified atrial flutter (principal); I82.5Y3 Chronic embolism and thrombosis of unspecified deep veins of proximal lower extremity, bilateral
CPT/HCPCS: 36415; 85610

== ENCOUNTER 2019-07-23 06:07 | Outpatient (RCR) | payer MEDICARE, SELFPAY ==
[2019-04-23 08:56] VITALS: BMI 29.4
[2019-07-23 08:01] LABS: International Normalized Ratio 2.5; Prothrombin Time (Protime)PT. 26.8 SECONDS (11.7-14.9)
== END 2019-07-23 18:00 | disposition home or self-care (01) ==
LOC: LAB 06:07
PROVIDERS: Family Provider Internal Medicine; PCP Internal Medicine; Referring Provider Internal Medicine; Visit Provider Internal Medicine
DX: I48.92 Unspecified atrial flutter (principal); I82.5Y3 Chronic embolism and thrombosis of unspecified deep veins of proximal lower extremity, bilateral
CPT/HCPCS: 36415; 85610

== ENCOUNTER 2019-09-17 06:06 | Outpatient (RCR) | payer MEDICARE, SELFPAY ==
[2019-04-23 08:56] VITALS: BMI 29.4
[2019-08-20 07:21] LABS: International Normalized Ratio 3.4; Prothrombin Time (Protime)PT. 33.8 SECONDS (11.7-14.9)
[2019-08-27 06:43] LABS: Prothrombin Time (Protime)PT. 30.4 SECONDS (11.7-14.9)
[2019-09-03 07:08] LABS: International Normalized Ratio 2.9
[2019-09-17 09:16] LABS: International Normalized Ratio 2.6; Prothrombin Time (Protime)PT. 27.5 SECONDS (11.7-14.9)
== END 2019-09-17 18:00 | disposition home or self-care (01) ==
LOC: LAB 06:06
PROVIDERS: Family Provider Internal Medicine; PCP Internal Medicine; Referring Provider Internal Medicine; Visit Provider Internal Medicine
DX: I48.92 Unspecified atrial flutter (principal); I82.5Y3 Chronic embolism and thrombosis of unspecified deep veins of proximal lower extremity, bilateral
CPT/HCPCS: 36415; 85610

== ENCOUNTER 2019-10-15 05:59 | Outpatient (RCR) | payer MEDICARE, SELFPAY ==
[2019-04-23 08:56] VITALS: BMI 29.4
[2019-10-15 08:12] LABS: International Normalized Ratio 1.9; Prothrombin Time (Protime)PT. 21.1 SECONDS (11.7-14.9)
== END 2019-10-19 18:00 | disposition home or self-care (01) ==
LOC: LAB 05:59
PROVIDERS: Family Provider Internal Medicine; PCP Internal Medicine; Referring Provider Internal Medicine; Visit Provider Internal Medicine
DX: I48.92 Unspecified atrial flutter (principal); I82.5Y3 Chronic embolism and thrombosis of unspecified deep veins of proximal lower extremity, bilateral
CPT/HCPCS: 36415; 85610

== ENCOUNTER → 2019-10-29 12:39 | Outpatient (CLI) | payer MEDICARE, SELFPAY ==
[2019-04-23 08:56] VITALS: BMI 29.4
--- NOTE | 2019-10-29 12:45 | ART_ITS ---
Reason For Study: pain in left foot Procedure A bilateral lower extremity continuous wave Doppler with analog waveform analysis,segmental pressures,and ankle brachial indexes without exercise. Left Segmental Pressures Left brachial= 132mmHg. Left digit = 118 mmHg. The left dorsalis pedis waveforms are triphasic. The left posterior tibial artery waveforms are triphasic. PT and DP are noncompressible. Right Segmental Pressures Right brachial= 131mmHg. Right digit = 102 mmHg. The right dorsalis pedis waveforms are triphasic. The right posterior tibial artery waveforms are triphasic. PT and DP are noncompressible. Indices The right digital-brachial index is .77. The left digital-brachial index is .89. Interpretation Summary Triphasic Doppler waveforms are noted at ankle level bilaterally. Pulse-volume recordings appear satisfactory at all levels bilaterally, including low-thigh, calf, ankle, and digital levels. Resting ankle-brachial indices could not be determined on either side due to the non-compressibility of the vasculature at ankle level bilaterally. Digital-brachial indices are normal bilaterally. There is evidence of arterial calcification at ankle level bilaterally. There is no evidence of significant arterial occlusive disease in the lower extremities bilaterally. Ordering Physician: Sanchez Shannon Performed By: SAYDA GARCIA [facility]
== END ==
PROVIDERS: PCP Internal Medicine; Referring Provider Podiatrist Foot & Ankle Surgery; Visit Provider Podiatrist Foot & Ankle Surgery
DX: M19.072 Primary osteoarthritis, left ankle and foot (principal); M79.672 Pain in left foot; I87.2 Venous insufficiency (chronic) (peripheral); I73.9 Peripheral vascular disease, unspecified
CPT/HCPCS: 36415; 85610; 93923

== ENCOUNTER → 2019-11-03 07:42 | Outpatient (CLI) | payer MEDICARE, SELFPAY ==
[2019-04-23 08:56] VITALS: BMI 29.4
--- NOTE | 2019-11-03 07:43 | CT_ITS ---
STUDY: CT LEFT ANKLE WITHOUT CONTRAST REASON FOR EXAM: Female, 68 years old. OSTEOARTHRITIS OF LEFT ANKLE RADIATION DOSAGE (If Supplied By Facility): CTDIvol = ( 15.35 ) mGy, DLP = ( 422.84 ) mGycm TECHNIQUE: Thin section transaxial imaging of the ankle was obtained, with sagittal and coronal reconstructed images. Individualized dose optimization techniques were used for this CT. COMPARISON: None. FINDINGS: Normal visualized distal tibia and fibula. Normal tibiotalar articulation and talar dome. Normal talus, calcaneus, navicular and cuboid tarsal bones. Normal subtalar, talonavicular and calcaneocuboid articulations. Normal navicular-cuneiform. Moderate degree of the joint space narrowing and degenerative changes at the first cuneiform metatarsal joint. There is evidence of a 1.2 cm x 1.2 cm cyst in the distal portion of the first cuneiform bone. Unremarkable intercuneiform articulations. Normal tarsometatarsal articulations and visualized metatarsi. Muscle atrophy. Vascular calcification. CT/Extremity Lower without Contra IMPRESSION: Degenerative changes at the first cuneiform metatarsal joint with a 1.2 cm x 1.2 cm cyst in the distal cuneiform bone. Electronically Signed: Irving Graham, at 8:48 EDT , Service support ,
== END ==
PROVIDERS: PCP Internal Medicine; Referring Provider Podiatrist Foot & Ankle Surgery; Visit Provider Podiatrist Foot & Ankle Surgery
DX: M19.072 Primary osteoarthritis, left ankle and foot (principal); M21.6X2 Other acquired deformities of left foot; M21.372 Foot drop, left foot
CPT/HCPCS: 73700

== ENCOUNTER 2019-11-12 05:59 | Outpatient (RCR) | payer MEDICARE, SELFPAY ==
[2019-04-23 08:56] VITALS: BMI 29.4
[2019-10-29 08:42] LABS: International Normalized Ratio 1.7; Prothrombin Time (Protime)PT. 19.8 SECONDS (11.7-14.9)
[2019-11-12 07:34] LABS: International Normalized Ratio 2.4; Prothrombin Time (Protime)PT. 25.3 SECONDS (11.7-14.9)
== END 2019-11-12 18:00 | disposition home or self-care (01) ==
LOC: LAB 05:59
PROVIDERS: Family Provider Internal Medicine; PCP Internal Medicine; Referring Provider Internal Medicine; Visit Provider Internal Medicine
DX: I48.92 Unspecified atrial flutter (principal); I82.5Y3 Chronic embolism and thrombosis of unspecified deep veins of proximal lower extremity, bilateral
CPT/HCPCS: 36415; 85610

== ENCOUNTER → 2019-11-30 11:09 | Outpatient (CLI) | payer MEDICARE, SELFPAY ==
[2019-04-23 08:56] VITALS: BMI 29.4
== END ==
PROVIDERS: PCP Internal Medicine; Visit Provider Urology
DX: R31.0 Gross hematuria (principal)
CPT/HCPCS: 87077; 87086; 87088; 87186

== ENCOUNTER 2019-12-11 06:00 | Outpatient (RCR) | payer MEDICARE, SELFPAY ==
[2019-04-23 08:56] VITALS: BMI 29.4
[2019-11-26 07:09] LABS: International Normalized Ratio 2.7; Prothrombin Time (Protime)PT. 28.5 SECONDS (11.7-14.9)
[2019-12-11 07:54] LABS: Microalbumin,Random Urine 9.6 mg/L (NO RANGE EST.); Microalbumin:Creatinine Ratio 22.1 mg/g CRE (<30 mg/g CRE)
[2019-12-11 07:59] LABS: AST(SGOT) 23 U/L (15-37); Alanine Aminotransfer ALT/SGPT 32 U/L (13-56); Albumin, Serum 3.6 g/dL (3.2-5.0); Alkaline Phosphatase 97 U/L (45-117); Anion Gap 5 (5-15); BUN 40 mg/dL (7-18); BUN/Creat Ratio 27.4 RATIO (10-20); Bilirubin, Direct 0.11 mg/dL (0.00-0.30); Calcium,Total 9.3 mg/dL (8.5-10.1); Chloride 108 mmol/L (98-107); Cholesterol 182 mg/dL (200); Creatinine, Serum 1.46 mg/dL (0.55-1.02); EST Glomerular Filtration Rate 38 mL/min (>60); Est Glom Filt Rate - Afr Amer 46 mL/min (>60); Globulin 3.9 g/dL (2.2-4.2); Glucose 110 mg/dL (74-106); High Density Lipoprotein 41 mg/dL; Phosphorus 3.6 mg/dL (2.5-4.9); Potassium 4.4 mmol/L (3.5-5.1); Protein, Total 7.5 g/dL (6.4-8.2); Sodium Level 140 mmol/L (136-145); Triglycerides 297 mg/dL; Very Low Density Lipoprotein 59 mg/dL (5-40)
== END 2019-12-11 18:00 | disposition home or self-care (01) ==
LOC: LAB 06:00
PROVIDERS: Physician Assistant Medical; Family Provider Internal Medicine; PCP Internal Medicine; Referring Provider Internal Medicine; Visit Provider Internal Medicine
DX: I48.92 Unspecified atrial flutter (principal); I82.5Y3 Chronic embolism and thrombosis of unspecified deep veins of proximal lower extremity, bilateral; E78.00 Pure hypercholesterolemia, unspecified
CPT/HCPCS: 36415; 80048; 80061; 80076; 82043; 82570; 84100; 85610

== ENCOUNTER 2019-12-24 06:04 | Outpatient (RCR) | payer MEDICARE, SELFPAY ==
[2019-04-23 08:56] VITALS: BMI 29.4
[2019-12-24 07:12] LABS: International Normalized Ratio 2.4
[2019-12-24 13:37] LABS: PTHIN 24.7 pg/mL (18.4-80.1)
== END 2019-12-24 18:00 | disposition home or self-care (01) ==
LOC: LAB 06:04
PROVIDERS: Family Provider Internal Medicine; PCP Internal Medicine; Referring Provider Internal Medicine; Visit Provider Internal Medicine
DX: I48.92 Unspecified atrial flutter (principal); I82.5Y3 Chronic embolism and thrombosis of unspecified deep veins of proximal lower extremity, bilateral
CPT/HCPCS: 36415; 83970; 85610

== ENCOUNTER 2020-02-04 06:01 | Outpatient (RCR) | payer MEDICARE, SELFPAY ==
[2019-04-23 08:56] VITALS: BMI 29.4
[2020-01-21 08:29] LABS: Prothrombin Time (Protime)PT. 30.4 SECONDS (11.7-14.9)
[2020-02-04 07:19] LABS: International Normalized Ratio 2.6; Prothrombin Time (Protime)PT. 27.5 SECONDS (11.7-14.9)
== END 2020-02-04 18:00 | disposition home or self-care (01) ==
LOC: LAB 06:01
PROVIDERS: Family Provider Internal Medicine; PCP Internal Medicine; Referring Provider Internal Medicine; Visit Provider Internal Medicine
DX: I82.5Y3 Chronic embolism and thrombosis of unspecified deep veins of proximal lower extremity, bilateral (principal)
CPT/HCPCS: 36415; 85610

== ENCOUNTER 2020-03-03 06:07 | Outpatient (RCR) | payer MEDICARE, SELFPAY ==
[2019-04-23 08:56] VITALS: BMI 29.4
[2020-03-03 07:43] LABS: International Normalized Ratio 2.2; Prothrombin Time (Protime)PT. 23.5 SECONDS (11.7-14.9)
== END 2020-03-03 18:00 | disposition home or self-care (01) ==
LOC: LAB 06:07
PROVIDERS: Family Provider Internal Medicine; PCP Internal Medicine; Referring Provider Internal Medicine; Visit Provider Internal Medicine
DX: I82.5Y3 Chronic embolism and thrombosis of unspecified deep veins of proximal lower extremity, bilateral (principal)
CPT/HCPCS: 36415; 85610

== ENCOUNTER 2020-03-31 06:06 | Outpatient (RCR) | payer MEDICARE, SELFPAY ==
[2020-03-10 08:51] VITALS: BMI 30.6
[2020-03-31 07:27] LABS: International Normalized Ratio 2.5; Prothrombin Time (Protime)PT. 26.9 SECONDS (11.7-14.9)
== END 2020-03-31 18:00 | disposition home or self-care (01) ==
LOC: LAB 06:06
PROVIDERS: Family Provider Internal Medicine; PCP Internal Medicine; Referring Provider Internal Medicine; Visit Provider Internal Medicine
DX: I82.5Y3 Chronic embolism and thrombosis of unspecified deep veins of proximal lower extremity, bilateral (principal)
CPT/HCPCS: 36415; 85610

== ENCOUNTER 2020-04-26 08:51 | Outpatient (RCR) | payer MEDICARE, SELFPAY ==
[2020-03-10 08:51] VITALS: BMI 30.6
[2020-04-26] MEDS: COVID-19 VACC, MRNA(PFIZER)/PF 30 MCG/0.3 ML SYRINGE IM (07:40)
[2020-05-17] MEDS: COVID-19 VACC, MRNA(PFIZER)/PF 30 MCG/0.3 ML SYRINGE IM (07:30)
== END 2020-07-26 23:59 ==
LOC: IMMUN 08:51
PROVIDERS: PCP Internal Medicine; Visit Provider Family Medicine
DX: Z23 Encounter for immunization (principal)
CPT/HCPCS: 0001A; 0002A; 91300

== ENCOUNTER 2020-04-28 06:09 | Outpatient (RCR) | payer MEDICARE, SELFPAY ==
[2020-03-10 08:51] VITALS: BMI 30.6
[2020-04-28 07:30] LABS: International Normalized Ratio 2.7; Prothrombin Time (Protime)PT. 28.3 SECONDS (11.7-14.9)
== END 2020-04-28 18:00 | disposition home or self-care (01) ==
LOC: LAB 06:09
PROVIDERS: Family Provider Internal Medicine; PCP Internal Medicine; Referring Provider Internal Medicine; Visit Provider Internal Medicine
DX: I82.5Y3 Chronic embolism and thrombosis of unspecified deep veins of proximal lower extremity, bilateral (principal)
CPT/HCPCS: 36415; 85610

== ENCOUNTER 2020-05-26 06:16 | Outpatient (RCR) | payer MEDICARE, SELFPAY ==
[2020-03-10 08:51] VITALS: BMI 30.6
[2020-05-26 07:01] LABS: International Normalized Ratio 2.6; Prothrombin Time (Protime)PT. 27.1 SECONDS (11.7-14.9)
[2020-05-26 07:18] LABS: AST(SGOT) 21 U/L (15-37); Alanine Aminotransfer ALT/SGPT 28 U/L (13-56); Albumin, Serum 3.6 g/dL (3.2-5.0); Alkaline Phosphatase 94 U/L (45-117); Cholesterol 199 mg/dL (200); Globulin 3.8 g/dL (2.2-4.2); High Density Lipoprotein 40 mg/dL; Protein, Total 7.4 g/dL (6.4-8.2); Triglycerides 274 mg/dL; Very Low Density Lipoprotein 55 mg/dL (5-40)
== END 2020-05-26 18:00 | disposition home or self-care (01) ==
LOC: LAB 06:16
PROVIDERS: Family Provider Internal Medicine; PCP Internal Medicine; Referring Provider Internal Medicine; Visit Provider Internal Medicine
DX: I82.5Y3 Chronic embolism and thrombosis of unspecified deep veins of proximal lower extremity, bilateral (principal); E78.5 Hyperlipidemia, unspecified
CPT/HCPCS: 36415; 80061; 80076; 85610

== ENCOUNTER → 2020-06-14 08:48 | Outpatient (CLI) | payer MEDICARE, SELFPAY ==
[2020-03-10 08:51] VITALS: BMI 30.6
--- NOTE | 2020-06-14 08:52 | ECHOCS_ITS ---
Reason For Study: AV Disease Procedure This was a 2D Doppler, Color Flow transthoracic echocardiogram. The study was technically difficult. Contrast injection was performed. Exam performed in department. Left Ventricle Normal LV size. Sigmoid septum. Left ventricular systolic function is normal. The estimated ejection fraction is 55 %. Septal bounce. There is evidence of diastolic dysfunction. No regional wall motion abnormalities noted. Right Ventricle Normal RV size. Normal systolic function. Atria The left atrium is moderately enlarged. Normal right atrium. No doppler evidence for ASD. Bubble contrast study negative for right to left interatrial shunt. Mitral Valve There is mild to moderate mitral annular calcification. Extension of the mitral annular calcification on the base of the posterior mitral valve leaflet. Mild (1+) mitral valve insufficiency. Tricuspid Valve Normal tricuspid valve. Mild to moderate (1-2+) tricuspid valve insufficiency. Right ventricular systolic pressure estimated to be 31 mmHg. Aortic Valve Trisinus/trileaflet aortic valve. Mild focal aortic valve calcification. Pulmonic Valve The pulmonic valve is not well visualized. Great Vessels Borderline dilated aortic root. Pericardium/Pleural No pericardial effusion. Medication 22 gauge I.V. with prn adaptor inserted into right arm. Diluted definity 4ml given slow IV push to enhance endocardial definition. Performed a rapid injection of agitated mix of 9 cc saline and 1cc air to assess for atrial septal defect. MMode/2D Measurements & Calculations LVIDd: 4.8 cm IVSd: 0.95 cm LVOT diam: 2.0 cm LVIDs: 2.7 cm LVPWd: 1.0 cm RVDd: 3.3 cm FS: 43.0 % LVOT area: 3.0 cm2 Ao root diam: 3.8 cm LAV(MOD-bp): 65.2 ml LA A4 area: 22.6 cm2 LA dimension: 4.5 cm LAV(MOD-bp) Indexed: 35.9 ml/m2 LAV(MOD-sp2): 53.9 ml LAV(MOD-sp4): 69.4 ml RA A4 area: 13.2 cm2 Time Measurements MV dec time: 0.24 sec Doppler Measurements & Calculations MV E max tono: 90.1 cm/sec Lat Peak E' Tono: 4.5 cm/sec Med Peak E' Tono: 3.1 cm/sec MV A max tono: 149.9 cm/sec E/E' lat: 19.9 E/E' med: 29.1 MV E/A: 0.60 MV V2 max: 182.0 cm/sec MV P1/2t max tono: 108.8 cm/sec Ao V2 max: 164.5 cm/sec MV max P.3 mmHg MV P1/2t: 80.8 msec Ao max P.8 mmHg MV V2 mean: 89.7 cm/sec MV dec slope: 394.7 cm/sec2 Ao V2 mean: 118.1 cm/sec MV mean P.0 mmHg Ao mean P.3 mmHg MV V2 VTI: 34.3 cm MVA(P1/2t): 2.7 cm2 Ao V2 VTI: 33.9 cm MVA(VTI): 1.9 cm2 CALE(I,D): 1.9 cm2 CALE(V,D): 1.8 cm2 LV V1 max: 96.5 cm/sec SV(LVOT): 64.6 ml PA V2 max: 82.8 cm/sec LV V1 max P.7 mmHg LV V1 mean P.2 mmHg LV V1 mean: 69.6 cm/sec LV V1 VTI: 21.5 cm TR max tono: 265.3 cm/sec TR max P.2 mmHg ECHO/Echo Complete W/ Contrast Interpretation Summary The study was technically difficult. Contrast injection was performed. Left ventricular systolic function is normal. The estimated ejection fraction is 55 %. Septal bounce. Sigmoid septum. The left atrium is moderately enlarged. There is mild to moderate mitral annular calcification. Extension of the mitral annular calcification on the base of the posterior mitr al valve leaflet. Mild (1+) mitral valve insufficiency. Mild to moderate (1-2+) tricuspid valve insufficiency. Mild focal aortic valve calcification. Borderline dilated aortic root. Right ventricular systolic pressure estimated to be 31 mmHg. There is evidence of diastolic dysfunction. Bubble contrast study negative for right to left interatrial shunt. Ordering Physician: Margarita Mccullough Referring Physician: Bernardo Alfaro M.D. Performed By: Lee Garcia RCS
== END ==
PROVIDERS: PCP Internal Medicine; Referring Provider Physician Assistant Medical; Visit Provider Physician Assistant Medical
DX: I08.3 Combined rheumatic disorders of mitral, aortic and tricuspid valves (principal)
CPT/HCPCS: 93306; Q9957; A4216; C8929

== ENCOUNTER 2020-07-07 06:00 | Outpatient (RCR) | payer MEDICARE, SELFPAY ==
[2020-03-10 08:51] VITALS: BMI 30.6
[2020-06-23 08:11] LABS: Albumin, Serum 3.6 g/dL (3.2-5.0); BUN 44 mg/dL (7-18); BUN/Creat Ratio 32.6 RATIO (10-20); Calcium,Total 9.4 mg/dL (8.5-10.1); Chloride 108 mmol/L (98-107); Cholesterol 175 mg/dL (200); Creatinine, Serum 1.35 mg/dL (0.55-1.02); EST Glomerular Filtration Rate 41 mL/min (>60); Est Glom Filt Rate - Afr Amer 50 mL/min (>60); Glucose 110 mg/dL (74-106); High Density Lipoprotein 40 mg/dL; Phosphorus 3.9 mg/dL (2.5-4.9); Potassium 4.4 mmol/L (3.5-5.1); Sodium Level 141 mmol/L (136-145); Triglycerides 258 mg/dL; Very Low Density Lipoprotein 52 mg/dL (5-40)
[2020-06-23 08:12] LABS: International Normalized Ratio 1.9; Prothrombin Time (Protime)PT. 21.1 SECONDS (11.7-14.9)
[2020-07-07 07:34] LABS: International Normalized Ratio 2.1; Prothrombin Time (Protime)PT. 22.6 SECONDS (11.7-14.9)
== END 2020-07-07 18:00 | disposition home or self-care (01) ==
LOC: LAB 06:00
PROVIDERS: Family Provider Internal Medicine; PCP Internal Medicine; Referring Provider Internal Medicine; Visit Provider Internal Medicine
DX: I82.5Y3 Chronic embolism and thrombosis of unspecified deep veins of proximal lower extremity, bilateral (principal); E78.5 Hyperlipidemia, unspecified
CPT/HCPCS: 36415; 80061; 80069; 85610

== ENCOUNTER 2020-08-04 05:58 | Outpatient (RCR) | payer MEDICARE, SELFPAY ==
[2020-03-10 08:51] VITALS: BMI 30.6
[2020-08-04 07:13] LABS: International Normalized Ratio 2.5; Prothrombin Time (Protime)PT. 26.1 SECONDS (11.7-14.9)
== END 2020-08-04 18:00 | disposition home or self-care (01) ==
LOC: LAB 05:58
PROVIDERS: Family Provider Internal Medicine; PCP Internal Medicine; Referring Provider Internal Medicine; Visit Provider Internal Medicine
DX: I82.5Y3 Chronic embolism and thrombosis of unspecified deep veins of proximal lower extremity, bilateral (principal)
CPT/HCPCS: 36415; 85610

== ENCOUNTER 2020-09-01 06:16 | Outpatient (RCR) | payer MEDICARE, SELFPAY ==
[2020-03-10 08:51] VITALS: BMI 30.6
[2020-09-01 07:16] LABS: International Normalized Ratio 2.1
== END 2020-09-01 18:00 | disposition home or self-care (01) ==
LOC: LAB 06:16
PROVIDERS: Family Provider Internal Medicine; PCP Internal Medicine; Referring Provider Internal Medicine; Visit Provider Internal Medicine
DX: I82.5Y3 Chronic embolism and thrombosis of unspecified deep veins of proximal lower extremity, bilateral (principal)
CPT/HCPCS: 36415; 85610

== ENCOUNTER 2020-09-29 06:18 | Outpatient (RCR) | payer MEDICARE, SELFPAY ==
[2020-03-10 08:51] VITALS: BMI 30.6
[2020-09-29 08:16] LABS: International Normalized Ratio 2.2; Prothrombin Time (Protime)PT. 23.3 SECONDS (11.7-14.9)
== END 2020-09-29 18:00 | disposition home or self-care (01) ==
LOC: LAB 06:18
PROVIDERS: Family Provider Internal Medicine; PCP Internal Medicine; Referring Provider Internal Medicine; Visit Provider Internal Medicine
DX: I82.5Y3 Chronic embolism and thrombosis of unspecified deep veins of proximal lower extremity, bilateral (principal)
CPT/HCPCS: 36415; 85610

== ENCOUNTER 2020-11-08 06:15 | Outpatient (RCR) | payer MEDICARE, SELFPAY ==
[2020-10-18 19:37] VITALS: BMI 30.6
[2020-11-08 07:23] LABS: International Normalized Ratio 1.9; Prothrombin Time (Protime)PT. 21.2 SECONDS (11.7-14.9)
[2020-11-09 08:19] LABS: Anion Gap 6 (5-15); BUN 37 mg/dL (7-18); BUN/Creat Ratio 23.6 RATIO (10-20); Calcium,Total 9.5 mg/dL (8.5-10.1); Chloride 109 mmol/L (98-107); Cholesterol 186 mg/dL (200); Creatinine, Serum 1.57 mg/dL (0.55-1.02); EST Glomerular Filtration Rate 35 mL/min (>60); Est Glom Filt Rate - Afr Amer 42 mL/min (>60); Glucose 153 mg/dL (74-106); High Density Lipoprotein 35 mg/dL; Potassium 4.8 mmol/L (3.5-5.1); Sodium Level 139 mmol/L (136-145); Triglycerides 287 mg/dL; Very Low Density Lipoprotein 57 mg/dL (5-40)
[2020-11-09 08:28] LABS: Hemoglobin A1c 6.3 % (3.8-5.6)
== END 2020-11-08 18:00 | disposition home or self-care (01) ==
LOC: LAB 06:15
PROVIDERS: Family Provider Internal Medicine; PCP Internal Medicine; Referring Provider Internal Medicine; Visit Provider Internal Medicine
DX: I82.5Y3 Chronic embolism and thrombosis of unspecified deep veins of proximal lower extremity, bilateral (principal); E11.22 Type 2 diabetes mellitus with diabetic chronic kidney disease; N18.32 Chronic kidney disease, stage 3b; E78.5 Hyperlipidemia, unspecified
CPT/HCPCS: 36415; 80048; 80061; 83036; 85610

== ENCOUNTER 2020-11-23 07:11 | Outpatient (RCR) | payer MEDICARE, SELFPAY ==
[2020-11-17 18:24] VITALS: BMI 30.6
[2020-11-23 08:21] LABS: International Normalized Ratio 2.5; Prothrombin Time (Protime)PT. 26.3 SECONDS (11.7-14.9)
== END 2020-12-18 02:47 | disposition home or self-care (01) ==
LOC: LAB 07:11
PROVIDERS: Family Provider Internal Medicine; PCP Internal Medicine; Referring Provider Internal Medicine; Visit Provider Internal Medicine
DX: I82.5Y3 Chronic embolism and thrombosis of unspecified deep veins of proximal lower extremity, bilateral (principal)
CPT/HCPCS: 36415; 85610

== ENCOUNTER → 2020-12-05 | Outpatient (CLI) | payer MEDICARE, SELFPAY | END | disposition home or self-care (01) | LOC: LABSPEC 12:57 | PROVIDERS: PCP Internal Medicine; Referring Provider Urology; Visit Provider Urology | DX: R82.90 Unspecified abnormal findings in urine (principal) | CPT/HCPCS: 87077; 87086; 87088; 87186 ==

== ENCOUNTER 2020-12-21 07:02 | Outpatient (RCR) | payer MEDICARE, SELFPAY ==
[2020-12-18 02:47] VITALS: BMI 30.6
[2020-12-21 08:27] LABS: International Normalized Ratio 2.6; Prothrombin Time (Protime)PT. 26.7 SECONDS (11.7-14.9)
== END 2021-01-17 18:00 | disposition home or self-care (01) ==
LOC: LAB 07:02
PROVIDERS: Family Provider Internal Medicine; PCP Internal Medicine; Referring Provider Internal Medicine; Visit Provider Internal Medicine
DX: I82.5Y3 Chronic embolism and thrombosis of unspecified deep veins of proximal lower extremity, bilateral (principal)
CPT/HCPCS: 36415; 85610

== ENCOUNTER 2021-02-07 15:10 | Outpatient (RCR) | payer MEDICARE, SELFPAY ==
[2021-01-18 01:21] VITALS: BMI 30.6
[2021-01-19 08:33] LABS: International Normalized Ratio 3.1; Prothrombin Time (Protime)PT. 30.9 SECONDS (11.7-14.9)
[2021-02-07 15:44] LABS: International Normalized Ratio 2.1; Prothrombin Time (Protime)PT. 22.9 SECONDS (11.7-14.9)
== END 2021-02-18 18:00 | disposition home or self-care (01) ==
LOC: LAB 15:10
PROVIDERS: Family Provider Internal Medicine; PCP Internal Medicine; Referring Provider Internal Medicine; Visit Provider Internal Medicine
DX: I82.5Y3 Chronic embolism and thrombosis of unspecified deep veins of proximal lower extremity, bilateral (principal)
CPT/HCPCS: 36415; 85610

== ENCOUNTER 2021-04-06 06:08 | Outpatient (RCR) | payer MEDICARE, SELFPAY ==
[2021-02-19 03:33] VITALS: BMI 30.6
[2021-04-06 09:08] LABS: International Normalized Ratio 2.8
== END 2021-04-06 18:00 | disposition home or self-care (01) ==
LOC: LAB 06:08
PROVIDERS: Family Provider Internal Medicine; PCP Internal Medicine; Referring Provider Internal Medicine; Visit Provider Internal Medicine
DX: I82.5Y3 Chronic embolism and thrombosis of unspecified deep veins of proximal lower extremity, bilateral (principal)
CPT/HCPCS: 36415; 85610

== ENCOUNTER 2021-04-25 12:15 | Outpatient (CLI) | payer MEDICARE, SELFPAY | END 2021-04-25 23:59 | disposition home or self-care (01) | LOC: LAB 12:15 | PROVIDERS: PCP Internal Medicine; Referring Provider Internal Medicine; Visit Provider Internal Medicine | DX: I82.5Y3 Chronic embolism and thrombosis of unspecified deep veins of proximal lower extremity, bilateral (principal) ==

== ENCOUNTER 2021-05-15 06:40 | Outpatient (RCR) | payer MEDICARE, SELFPAY ==
[2021-04-18 08:58] VITALS: BMI 30.6
[2021-05-04 09:00] LABS: Prothrombin Time (Protime)PT. 39.2 SECONDS (11.7-14.9)
[2021-05-04 09:04] LABS: International Normalized Ratio 4.1
[2021-05-15 08:06] LABS: International Normalized Ratio 2.7; Prothrombin Time (Protime)PT. 28.2 SECONDS (11.7-14.9)
== END 2021-05-18 18:00 | disposition home or self-care (01) ==
LOC: LAB 06:40
PROVIDERS: Family Provider Internal Medicine; PCP Internal Medicine; Referring Provider Internal Medicine; Visit Provider Internal Medicine
DX: I82.5Y3 Chronic embolism and thrombosis of unspecified deep veins of proximal lower extremity, bilateral (principal)
CPT/HCPCS: 36415; 85610

== ENCOUNTER 2021-05-25 06:45 | Outpatient (RCR) | payer MEDICARE, SELFPAY ==
[2021-05-19 00:50] VITALS: BMI 30.6
[2021-05-25 07:05] LABS: Hematocrit 31.4 % (37-47); Hemoglobin 10.1 g/dL (12.0-15.0); Mean Corp Hgb Conc 32.2 g/dL (32-36); Mean Corpuscular Hgb 30.7 pg (27.0-32.0); Mean Corpuscular Volume 95.4 fL (81-99); Mean Platelet Vol. 8.5 fl (6.2-12.0); Platelet Count 353 K/mm3 (150-450); RBC Distribution Width CV 12.1 % (11.6-14.6); RBC Distribution Width SD 42.5 fl (35.1-43.9); Red Blood Count 3.29 M/mm3 (4.2-5.4); White Blood Count 6.6 K/mm3 (4.4-11.0)
[2021-05-25 07:15] LABS: International Normalized Ratio 2.8; Prothrombin Time (Protime)PT. 28.8 SECONDS (11.7-14.9)
[2021-05-25 07:37] LABS: Albumin, Serum 3.1 g/dL (3.2-5.0); BUN 32 mg/dL (7-18); BUN/Creat Ratio 21.9 RATIO (10-20); Calcium,Total 9.7 mg/dL (8.5-10.1); Chloride 110 mmol/L (98-107); Creatinine, Serum 1.46 mg/dL (0.55-1.02); EST Glomerular Filtration Rate 38 mL/min (>60); Est Glom Filt Rate - Afr Amer 46 mL/min (>60); Glucose 126 mg/dL (74-106); Phosphorus 3.5 mg/dL (2.5-4.9); Sodium Level 137 mmol/L (136-145)
[2021-05-25 08:26] LABS: PTHIN 25.3 pg/mL (18.4-80.1)
== END 2021-05-25 18:00 | disposition home or self-care (01) ==
LOC: LAB 06:45
PROVIDERS: Family Provider Internal Medicine; PCP Internal Medicine; Referring Provider Internal Medicine; Visit Provider Internal Medicine
DX: I82.5Y3 Chronic embolism and thrombosis of unspecified deep veins of proximal lower extremity, bilateral (principal); N18.32 Chronic kidney disease, stage 3b
CPT/HCPCS: 36415; 80069; 83970; 85027; 85610

== ENCOUNTER 2021-06-01 10:59 | Outpatient (CLI) | payer MEDICARE, SELFPAY ==
[2021-06-01 12:35] LABS: Absolute Lymphocyte Count 1.85 X10^3/uL (0.83-4.51); Absolute Neutrophil Count 2.6 X10^3/uL (2.0-7.7); Basophil# 0.02 X10^3/uL; Basophil% 0.4 % (0-1); Eosinophil# 0.19 X10^3/uL; Eosinophils% 3.6 % (0-5); Hematocrit 33.9 % (37-47); Lymphocyte # 1.85 X10^3/ul (0.83-4.51); Lymphocyte % 35.2 % (19-41); Mean Corp Hgb Conc 32.4 g/dL (32-36); Mean Corpuscular Hgb 30.6 pg (27.0-32.0); Mean Corpuscular Volume 94.2 fL (81-99); Mean Platelet Vol. 9.3 fl (6.2-12.0); Monocyte# 0.57 X10^3/uL; Monocyte% 10.9 % (0-10); NRBC Flagged by Analyzer 0 % (0-5); Neutrophil % 49.5 % (47-70); Platelet Count 243 K/mm3 (150-450); RBC Distribution Width CV 12.9 % (11.6-14.6); RBC Distribution Width SD 44.4 fl (35.1-43.9); White Blood Count 5.3 K/mm3 (4.4-11.0)
[2021-06-01 12:48] LABS: Vitamin D,25 Hydroxy 60.8 ng/mL
[2021-06-01 13:02] LABS: ALB/GLOB Ratio 0.8 RATIO (0.9-2.4); AST(SGOT) 18 U/L (15-37); Alanine Aminotransfer ALT/SGPT 27 U/L (13-56); Albumin, Serum 3.5 g/dL (3.2-5.0); Alkaline Phosphatase 98 U/L (45-117); Anion Gap 2 (5-15); BUN 40 mg/dL (7-18); Calcium,Total 9.6 mg/dL (8.5-10.1); Chloride 109 mmol/L (98-107); Creatinine, Serum 1.43 mg/dL (0.55-1.02); EST Glomerular Filtration Rate 39 mL/min (>60); Est Glom Filt Rate - Afr Amer 47 mL/min (>60); Globulin 4.5 g/dL (2.2-4.2); Glucose 141 mg/dL (74-106); Sodium Level 137 mmol/L (136-145); Thyroid Stim Hormone (TSH) 0.85 uIU/mL (0.358-3.74)
== END 2021-06-01 23:59 | disposition home or self-care (01) ==
LOC: POLAB3 10:59
PROVIDERS: PCP Internal Medicine; Visit Provider Family Medicine Geriatric Medicine
DX: R53.83 Other fatigue (principal); E55.9 Vitamin D deficiency, unspecified
CPT/HCPCS: 36415; 80053; 82306; 84443; 85025

== ENCOUNTER → 2021-06-09 | Outpatient (CLI) | payer MEDICARE, SELFPAY ==
--- NOTE | 2021-06-09 10:40 | RAD_ITS ---
INDICATION: PNEUMONIA EXAMINATION/TECHNIQUE: X-RAY - XR Chest 2 Views COMPARISON: 03/13/2018. FINDINGS: LINES/DEVICES: None. LUNGS: No consolidation, edema or effusion. No pneumothorax. MEDIASTINUM AND CARDIOVASCULAR STRUCTURES: Cardiac silhouette not enlarged. Central airways and mediastinal contour are unremarkable. Small hiatus hernia is seen. BONES AND SOFT TISSUES: Unremarkable. RAD/Chest PA and Lateral IMPRESSION: No radiographic evidence of acute cardiopulmonary disease. Small hiatus hernia is seen. Electronically Signed: Cade Sanchez MD at 15:26 EDT ,
== END | disposition home or self-care (01) ==
LOC: RAD 10:36
PROVIDERS: PCP Family Medicine Geriatric Medicine; Referring Provider Family Medicine Geriatric Medicine; Visit Provider Family Medicine Geriatric Medicine
DX: J18.9 Pneumonia, unspecified organism (principal)
CPT/HCPCS: 71046

== ENCOUNTER → 2021-09-14 | Outpatient (CLI) | payer MEDICARE, SELFPAY ==
[2021-09-14 12:09] LABS: Absolute Lymphocyte Count 2.08 X10^3/uL (0.83-4.51); Absolute Neutrophil Count 2.6 X10^3/uL (2.0-7.7); Basophil# 0.03 X10^3/uL; Basophil% 0.6 % (0-1); Eosinophil# 0.11 X10^3/uL; Eosinophils% 2.1 % (0-5); Hematocrit 36.4 % (37-47); Hemoglobin 11.8 g/dL (12.0-15.0); Lymphocyte # 2.08 X10^3/ul (0.83-4.51); Lymphocyte % 38.8 % (19-41); Mean Corp Hgb Conc 32.4 g/dL (32-36); Mean Corpuscular Hgb 31.5 pg (27.0-32.0); Mean Corpuscular Volume 97.1 fL (81-99); Mean Platelet Vol. 9.4 fl (6.2-12.0); Monocyte# 0.53 X10^3/uL; Monocyte% 9.9 % (0-10); NRBC Flagged by Analyzer 0 % (0-5); Neutrophil # 2.56 X10^3/uL (2.7-7.7); Neutrophil % 47.7 % (47-70); Platelet Count 216 K/mm3 (150-450); RBC Distribution Width CV 13.3 % (11.6-14.6); Red Blood Count 3.75 M/mm3 (4.2-5.4); White Blood Count 5.4 K/mm3 (4.4-11.0)
[2021-09-14 12:32] LABS: Vitamin D,25 Hydroxy 64.8 ng/mL
[2021-09-14 12:41] LABS: ALB/GLOB Ratio 0.9 RATIO (0.9-2.4); AST(SGOT) 21 U/L (15-37); Alanine Aminotransfer ALT/SGPT 33 U/L (13-56); Albumin, Serum 3.7 g/dL (3.2-5.0); Alkaline Phosphatase 97 U/L (45-117); Anion Gap 7 (5-15); BUN 30 mg/dL (7-18); Calcium,Total 9.8 mg/dL (8.5-10.1); Chloride 106 mmol/L (98-107); Creatinine, Serum 1.43 mg/dL (0.55-1.02); EST Glomerular Filtration Rate 39 mL/min (>60); Est Glom Filt Rate - Afr Amer 47 mL/min (>60); Globulin 3.9 g/dL (2.2-4.2); Glucose 157 mg/dL (74-106); Potassium 4.7 mmol/L (3.5-5.1); Protein, Total 7.6 g/dL (6.4-8.2); Sodium Level 137 mmol/L (136-145); Thyroid Stim Hormone (TSH) 2.28 uIU/mL (0.358-3.74)
== END | disposition home or self-care (01) ==
LOC: POLAB3 09:07
PROVIDERS: PCP Family Medicine Geriatric Medicine; Visit Provider Family Medicine Geriatric Medicine
DX: E11.65 Type 2 diabetes mellitus with hyperglycemia (principal); E55.9 Vitamin D deficiency, unspecified; R53.83 Other fatigue
CPT/HCPCS: 36415; 80053; 82306; 84443; 85025

== ENCOUNTER 2021-10-26 09:21 | Outpatient (RCR) | payer MEDICARE, SELFPAY | END 2021-11-17 23:59 | LOC: DC 09:21 | PROVIDERS: PCP Family Medicine Geriatric Medicine; Referring Provider Family Medicine Geriatric Medicine; Visit Provider Family Medicine Geriatric Medicine | DX: E11.9 Type 2 diabetes mellitus without complications (principal) | CPT/HCPCS: 97802 ==

== ENCOUNTER → 2021-11-22 | Outpatient (CLI) | payer MEDICARE, SELFPAY | END | disposition home or self-care (01) | LOC: PSN 12:19 | PROVIDERS: PCP Family Medicine Geriatric Medicine; Referring Provider Family Medicine Geriatric Medicine; Visit Provider Family Medicine Geriatric Medicine | DX: R68.83 Chills (without fever) (principal) | CPT/HCPCS: 87635; 87804; 87807; C9803; U0003; U0005 ==

== ENCOUNTER → 2021-12-13 | Outpatient (CLI) | payer MEDICARE, SELFPAY ==
[2021-12-13 17:57] LABS: Absolute Lymphocyte Count 2.13 X10^3/uL (0.83-4.51); Absolute Neutrophil Count 1.8 X10^3/uL (2.0-7.7); Basophil# 0.02 X10^3/uL; Basophil% 0.4 % (0-1); Eosinophil# 0.18 X10^3/uL; Hematocrit 37.3 % (37-47); Hemoglobin 11.9 g/dL (12.0-15.0); Lymphocyte # 2.13 X10^3/ul (0.83-4.51); Lymphocyte % 46.8 % (19-41); Mean Corp Hgb Conc 31.9 g/dL (32-36); Mean Corpuscular Hgb 31.9 pg (27.0-32.0); Mean Platelet Vol. 9.9 fl (6.2-12.0); Monocyte# 0.39 X10^3/uL; Monocyte% 8.6 % (0-10); NRBC Flagged by Analyzer 0 % (0-5); Neutrophil # 1.81 X10^3/uL (2.7-7.7); Neutrophil % 39.8 % (47-70); Platelet Count 167 K/mm3 (150-450); RBC Distribution Width SD 47.1 fl (35.1-43.9); Red Blood Count 3.73 M/mm3 (4.2-5.4); White Blood Count 4.6 K/mm3 (4.4-11.0)
[2021-12-13 18:37] LABS: Vitamin D,25 Hydroxy 43.1 ng/mL
[2021-12-13 18:40] LABS: ALB/GLOB Ratio 0.9 RATIO (0.9-2.4); AST(SGOT) 14 U/L (15-37); Alanine Aminotransfer ALT/SGPT 25 U/L (13-56); Albumin, Serum 3.4 g/dL (3.2-5.0); Alkaline Phosphatase 120 U/L (45-117); Anion Gap 6 (5-15); BUN 32 mg/dL (7-18); Calcium,Total 9.6 mg/dL (8.5-10.1); Chloride 111 mmol/L (98-107); Creatinine, Serum 1.23 mg/dL (0.55-1.02); EST Glomerular Filtration Rate 46 mL/min (>60); Est Glom Filt Rate - Afr Amer 55 mL/min (>60); Globulin 3.8 g/dL (2.2-4.2); Glucose 164 mg/dL (74-106); Potassium 4.7 mmol/L (3.5-5.1); Protein, Total 7.2 g/dL (6.4-8.2); Sodium Level 142 mmol/L (136-145); Thyroid Stim Hormone (TSH) 1.46 uIU/mL (0.358-3.74)
== END | disposition home or self-care (01) ==
PROVIDERS: PCP Family Medicine Geriatric Medicine; Visit Provider Family Medicine Geriatric Medicine
DX: E11.65 Type 2 diabetes mellitus with hyperglycemia (principal); E55.9 Vitamin D deficiency, unspecified; R53.83 Other fatigue
CPT/HCPCS: 36415; 80053; 82306; 84443; 85025

== ENCOUNTER → 2022-03-01 | Outpatient (CLI) | payer MEDICARE, SELFPAY ==
[2022-03-01 10:41] LABS: Hematocrit 40.8 % (37-47); Hemoglobin 12.7 g/dL (12.0-15.0); Mean Corp Hgb Conc 31.1 g/dL (32-36); Mean Corpuscular Hgb 30.7 pg (27.0-32.0); Mean Corpuscular Volume 98.6 fL (81-99); Mean Platelet Vol. 9.8 fl (6.2-12.0); Platelet Count 245 K/mm3 (150-450); RBC Distribution Width CV 12.3 % (11.6-14.6); RBC Distribution Width SD 44.3 fl (35.1-43.9); Red Blood Count 4.14 M/mm3 (4.2-5.4); White Blood Count 7.1 K/mm3 (4.4-11.0)
[2022-03-01 10:54] LABS: Albumin, Serum 3.9 g/dL (3.2-5.0); BUN 33 mg/dL (7-18); BUN/Creat Ratio 18.8 RATIO (10-20); Chloride 109 mmol/L (98-107); Creatinine, Serum 1.76 mg/dL (0.55-1.02); EST Glomerular Filtration Rate 30 mL/min (>60); Est Glom Filt Rate - Afr Amer 37 mL/min (>60); Glucose 204 mg/dL (74-106); Phosphorus 4.3 mg/dL (2.5-4.9); Potassium 4.7 mmol/L (3.5-5.1); Protein:Creat Ratio 330 mg/g CRE (0-200); Sodium Level 140 mmol/L (136-145)
[2022-03-01 11:28] LABS: PTHIN 36.9 pg/mL (18.4-80.1)
== END | disposition home or self-care (01) ==
LOC: POLAB3 09:36
PROVIDERS: PCP Family Medicine Geriatric Medicine; Visit Provider Internal Medicine Nephrology
DX: E11.22 Type 2 diabetes mellitus with diabetic chronic kidney disease (principal); N18.32 Chronic kidney disease, stage 3b
CPT/HCPCS: 36415; 80069; 82570; 83970; 84156; 85027

== ENCOUNTER → 2022-06-04 | Outpatient (CLI) | payer MEDICARE, SELFPAY ==
[2022-06-04 13:31] LABS: Absolute Lymphocyte Count 2.11 X10^3/uL (0.83-4.51); Absolute Neutrophil Count 3.3 X10^3/uL (2.0-7.7); Basophil# 0.02 X10^3/uL; Basophil% 0.3 % (0-1); Eosinophils% 4.6 % (0-5); Hematocrit 36.4 % (37-47); Hemoglobin 11.3 g/dL (12.0-15.0); Lymphocyte # 2.11 X10^3/ul (0.83-4.51); Lymphocyte % 32.7 % (19-41); Mean Platelet Vol. 10.1 fl (6.2-12.0); Monocyte% 10.8 % (0-10); NRBC Flagged by Analyzer 0 % (0-5); Neutrophil # 3.26 X10^3/uL (2.7-7.7); Neutrophil % 50.5 % (47-70); Platelet Count 227 K/mm3 (150-450); RBC Distribution Width CV 13.2 % (11.6-14.6); RBC Distribution Width SD 48.6 fl (35.1-43.9); Red Blood Count 3.64 M/mm3 (4.2-5.4); White Blood Count 6.5 K/mm3 (4.4-11.0)
[2022-06-04 13:42] LABS: Protein, Urine (Random) 13.4 mg/dL (<11.9); Protein:Creat Ratio 198 mg/g CRE (0-200)
[2022-06-04 13:45] LABS: Vitamin D,25 Hydroxy 42.3 ng/mL
[2022-06-04 13:59] LABS: ALB/GLOB Ratio 1.1 RATIO (0.9-2.4); AST(SGOT) 26 U/L (15-37); Alanine Aminotransfer ALT/SGPT 37 U/L (13-56); Albumin, Serum 3.7 g/dL (3.2-5.0); Alkaline Phosphatase 114 U/L (45-117); Anion Gap 6 (5-15); BUN 37 mg/dL (7-18); BUN/Creat Ratio 27.8 RATIO (10-20); Calcium,Total 9.2 mg/dL (8.5-10.1); Chloride 108 mmol/L (98-107); Creatinine, Serum 1.33 mg/dL (0.55-1.02); EST Glomerular Filtration Rate 42 mL/min (>60); Est Glom Filt Rate - Afr Amer 51 mL/min (>60); Globulin 3.4 g/dL (2.2-4.2); Glucose 112 mg/dL (74-106); Phosphorus 4.5 mg/dL (2.5-4.9); Potassium 4.8 mmol/L (3.5-5.1); Protein, Total 7.1 g/dL (6.4-8.2); Sodium Level 138 mmol/L (136-145); Thyroid Stim Hormone (TSH) 2.19 uIU/mL (0.358-3.74)
[2022-06-04 14:12] LABS: PTHIN 54.4 pg/mL (18.4-80.1)
== END | disposition home or self-care (01) ==
LOC: POLAB3 09:50
PROVIDERS: PCP Family Medicine Geriatric Medicine; Visit Provider Internal Medicine Nephrology
DX: E11.22 Type 2 diabetes mellitus with diabetic chronic kidney disease (principal); N18.32 Chronic kidney disease, stage 3b
CPT/HCPCS: 36415; 80053; 82306; 82570; 83970; 84100; 84156; 84443; 85025

== ENCOUNTER → 2022-06-12 | Outpatient (CLI) | payer MEDICARE, SELFPAY ==
--- NOTE | 2022-06-12 15:29 | BD_ITS ---
STUDY: DUAL ENERGY X-RAY ABSORPTIOMETRY / DXA REASON FOR EXAM: Female, 71 years old. M810 TECHNIQUE: Bone Mineral Density (BMD) measurements of lumbar spine and left hip were obtained. COMPARISON: None. FINDINGS: Lumbar Spine (L1-L4): g/cm2 (1.158) / T-score (1.6) / Z-score (3.7) Findings are suggestive of normal bone density with a low fracture risk. Left Femur Total: g/cm2 (0.918) / T-score (-0.2) / Z-score (1.4) Left Femoral Neck: g/cm2 (0.772) / T-score (-0.7) / Z-score (1.2) BD/Dexa Bone Density Study IMPRESSION: The patient is considered normal as outlined below according to World [place] Organization (WHO) criteria with a low fracture risk. Reference Information: The T-score is the number of standard deviations above or below the standard which is normal for young adults at their peak bone mineral density. The World Health Organization (WHO) interprets the T-scores as follows: Above -1 Normal bone density Between -1 and -2.5 Osteopenia Equal to / or below -2.5 Osteoporosis As a practical clinical guideline, osteopenia may be graded as follows: Mild -1 through -1.5 Moderate -1.6 through -2.0 Severe -2.1 through -2.4 The Z-score is the number of standard deviations above or below age-matched controls. A Z-score of less than -1.5 would be considered abnormal. References: 1. NIH Osteoporosis and Related Bone Diseases www osteo.org 2. International Society for Clinical Densitometry www iscd.org 3. National Osteoporosis Foundation www nof.org Electronically Signed: Irving Graham MD at 14:52 EDT ,
== END | disposition home or self-care (01) ==
LOC: OPBD 15:21
PROVIDERS: PCP Family Medicine Geriatric Medicine; Referring Provider Family Medicine Geriatric Medicine; Visit Provider Family Medicine Geriatric Medicine
DX: M81.0 Age-related osteoporosis without current pathological fracture (principal)
CPT/HCPCS: 77080

== ENCOUNTER → 2022-08-30 | Outpatient (CLI) | payer MEDICARE, SELFPAY ==
[2022-08-30 12:19] LABS: Albumin, Serum 3.6 g/dL (3.2-5.0); BUN 46 mg/dL (7-18); BUN/Creat Ratio 27.2 RATIO (10-20); Calcium,Total 9.4 mg/dL (8.5-10.1); Chloride 110 mmol/L (98-107); Creatinine, Serum 1.69 mg/dL (0.55-1.02); EST Glomerular Filtration Rate 32 mL/min (>60); Est Glom Filt Rate - Afr Amer 38 mL/min (>60); Glucose 110 mg/dL (74-106); Phosphorus 3.9 mg/dL (2.5-4.9); Potassium 4.8 mmol/L (3.5-5.1); Sodium Level 143 mmol/L (136-145)
== END | disposition home or self-care (01) ==
LOC: POLAB3 10:04
PROVIDERS: PCP Family Medicine Geriatric Medicine; Visit Provider Internal Medicine Nephrology
DX: N18.32 Chronic kidney disease, stage 3b (principal); E11.22 Type 2 diabetes mellitus with diabetic chronic kidney disease
CPT/HCPCS: 36415; 80069

== ENCOUNTER → 2022-09-03 | Outpatient (CLI) | payer MEDICARE, SELFPAY ==
[2022-09-03 12:23] LABS: Absolute Lymphocyte Count 1.68 X10^3/uL (0.83-4.51); Absolute Neutrophil Count 2.5 X10^3/uL (2.0-7.7); Basophil# 0.02 X10^3/uL; Basophil% 0.4 % (0-1); Eosinophil# 0.19 X10^3/uL; Eosinophils% 3.9 % (0-5); Hematocrit 33.9 % (37-47); Hemoglobin 10.6 g/dL (12.0-15.0); Lymphocyte # 1.68 X10^3/ul (0.83-4.51); Lymphocyte % 34.2 % (19-41); Mean Corp Hgb Conc 31.3 g/dL (32-36); Mean Corpuscular Hgb 31.5 pg (27.0-32.0); Mean Corpuscular Volume 100.6 fL (81-99); Mean Platelet Vol. 10.1 fl (6.2-12.0); Monocyte# 0.54 X10^3/uL; NRBC Flagged by Analyzer 0 % (0-5); Neutrophil # 2.46 X10^3/uL (2.7-7.7); Neutrophil % 50.1 % (47-70); Platelet Count 179 K/mm3 (150-450); RBC Distribution Width CV 12.6 % (11.6-14.6); RBC Distribution Width SD 46.7 fl (35.1-43.9); Red Blood Count 3.37 M/mm3 (4.2-5.4); White Blood Count 4.9 K/mm3 (4.4-11.0)
[2022-09-03 12:50] LABS: ALB/GLOB Ratio 0.9 RATIO (0.9-2.4); AST(SGOT) 25 U/L (15-37); Alanine Aminotransfer ALT/SGPT 26 U/L (13-56); Albumin, Serum 3.4 g/dL (3.2-5.0); Alkaline Phosphatase 100 U/L (45-117); Anion Gap 5 (5-15); BUN 36 mg/dL (7-18); BUN/Creat Ratio 22.2 RATIO (10-20); Chloride 114 mmol/L (98-107); Creatinine, Serum 1.62 mg/dL (0.55-1.02); EST Glomerular Filtration Rate 33 mL/min (>60); Est Glom Filt Rate - Afr Amer 40 mL/min (>60); Globulin 3.7 g/dL (2.2-4.2); Glucose 125 mg/dL (74-106); Potassium 4.9 mmol/L (3.5-5.1); Protein, Total 7.1 g/dL (6.4-8.2); Sodium Level 141 mmol/L (136-145); Thyroid Stim Hormone (TSH) 2.46 uIU/mL (0.358-3.74)
[2022-09-03 13:07] LABS: Vitamin D,25 Hydroxy 54.2 ng/mL
== END | disposition home or self-care (01) ==
LOC: POLAB3 10:47
PROVIDERS: PCP Family Medicine Geriatric Medicine; Visit Provider Family Medicine Geriatric Medicine
DX: E11.65 Type 2 diabetes mellitus with hyperglycemia (principal); I10 Essential (primary) hypertension; E55.9 Vitamin D deficiency, unspecified
CPT/HCPCS: 36415; 80053; 82306; 84443; 85025

== ENCOUNTER → 2022-09-05 | Outpatient (CLI) | payer MEDICARE, SELFPAY ==
[2022-09-05 13:38] LABS: Absolute Lymphocyte Count 1.87 X10^3/uL (0.83-4.51); Absolute Neutrophil Count 2.7 X10^3/uL (2.0-7.7); Basophil# 0.01 X10^3/uL; Basophil% 0.2 % (0-1); Eosinophils% 5.3 % (0-5); Hematocrit 32.8 % (37-47); Lymphocyte # 1.87 X10^3/ul (0.83-4.51); Mean Corp Hgb Conc 30.5 g/dL (32-36); Mean Corpuscular Hgb 30.7 pg (27.0-32.0); Mean Corpuscular Volume 100.6 fL (81-99); Mean Platelet Vol. 10.4 fl (6.2-12.0); Monocyte# 0.81 X10^3/uL; Monocyte% 14.3 % (0-10); NRBC Flagged by Analyzer 0 % (0-5); Neutrophil # 2.66 X10^3/uL (2.7-7.7); Neutrophil % 46.8 % (47-70); Platelet Count 194 K/mm3 (150-450); RBC Distribution Width CV 12.8 % (11.6-14.6); RBC Distribution Width SD 47.2 fl (35.1-43.9); Red Blood Count 3.26 M/mm3 (4.2-5.4); White Blood Count 5.7 K/mm3 (4.4-11.0)
[2022-09-05 14:15] LABS: Iron Binding Capacity,Total 251 ug/dL (250-450)
== END | disposition home or self-care (01) ==
LOC: POLAB3 09:49
PROVIDERS: PCP Family Medicine Geriatric Medicine; Visit Provider Family Medicine Geriatric Medicine
DX: D50.9 Iron deficiency anemia, unspecified (principal)
CPT/HCPCS: 36415; 82746; 83540; 83550; 85025

== ENCOUNTER → 2022-09-06 | Outpatient (CLI) | payer MEDICARE, SELFPAY | END | disposition home or self-care (01) | LOC: LABSPEC 12:22 | PROVIDERS: PCP Family Medicine Geriatric Medicine; Referring Provider Family Medicine Geriatric Medicine; Visit Provider Family Medicine Geriatric Medicine | DX: D50.9 Iron deficiency anemia, unspecified (principal) | CPT/HCPCS: 82274 ==

== ENCOUNTER 2022-09-07 02:31 | Emergency (ER) | payer MEDICARE, SELFPAY ==
[2022-09-07 02:36] VITALS: BP 150/85; PULSE 92; RESP 16; TEMP 36.2; O2SAT 98; BMI 27.2
--- NOTE | 2022-09-07 02:38 | ED.VIS.CHEST ---
HPI History of Present Illness Chief Complaint: Palpitations Informant: patient Narrative Narrative: 71-year-old female states after she laid down to sleep tonight she started feeling her heart beating hard without racing or skipping, which made it feel like she was breathing abnormally. She denies any chest discomfort, lightheadedness or syncope. Denies cough, nausea, vomiting, but she has had some diarrhea for the last 2 days. No other illness. She denies any changes in her medications lately; states that she has been compliant with her heart pills, but cannot tell me any cardiac history that she has in any detail. She is anticoagulated on Xarelto for history of blood clots. [facility] Medical History (Updated 09/07/22 @ 05:[address] Will Colmenares MD) Anemia (04/10/17) Aortic root dilatation Asthma Atrophic vaginitis Benign essential HTN Cardiomyopathy Chronic bronchitis Chronic kidney disease, stage 3 Degenerative joint disease of right knee DM2 (diabetes mellitus, type 2) Hemorrhoids History of colitis (10/19/10) History of DVT (deep vein thrombosis) (10/30/06) History of pulmonary embolus (PE) (10/30/06) History of syncope (10/01/17) Hyperlipidemia Left foot drop (04/24/13) Lichen simplex chronicus (10/20/10) Lumbar stenosis Lung nodule (10/28/14) Mixed incontinence Nonrheumatic aortic (valve) stenosis Nonrheumatic mitral (valve) insufficiency Nonrheumatic tricuspid (valve) insufficiency Osteoarthritis Paroxysmal atrial fibrillation (03/13/18) Postlaminectomy syndrome (02/01/16) Scoliosis Syncope Home Medications fluticasone 100 mcg-salmeterol 50 mcg/dose blistr powdr for inhalation 1 puff inhalation BID asthma 01/29/13 [History Last Taken Unknown] ferrous gluconate 324 mg (37.5 mg iron) tablet 325 mg PO BID iron 05/29/18 [History Last Taken Unknown] sennosides 8.6 mg-docusate sodium 50 mg tablet 2 tab PO BID PRN Constipation 04/15/19 [History Last Taken Unknown] albuterol sulfate 2.5 mg/3 mL (0.083 %) solution for nebulization 2.5 mg inhalation Q4H PRN shortness of breath or wheezing 04/23/19 [History Last Taken Unknown] carvedilol 3.125 mg tablet (Coreg) 3.125 mg PO BID #180 tabs 11/30/21 [Rx Last Taken Unknown] acetaminophen 650 mg tablet,extended release (Tylenol Arthritis Pain) 650 mg PO Q8H 12/05/21 [History Last Taken Unknown] albuterol sulfate 90 mcg/actuation aerosol inhaler 2 puff inhalation 4X/DAY PRN asthma 12/05/21 [History Last Taken Unknown] estradiol 10 mcg vaginal tablet 10 mcg vaginal .QMR hormone 12/05/21 [History Last Taken Unknown] famotidine 40 mg tablet 40 mg PO DAILY 12/05/21 [History Last Taken Unknown] lisinopril 2.5 mg tablet See Rx Instructions .Route .COMPLEX #90 tabs 06/04/22 [Rx Last Taken Unknown] atorvastatin 40 mg tablet 40 mg PO DAILY 06/21/22 [History Last Taken Unknown] cetirizine 10 mg tablet 10 mg PO DAILY PRN allergy symptoms 06/21/22 [History Last Taken Unknown] gabapentin 600 mg tablet 600 mg PO TID 06/21/22 [History Last Taken Unknown] pioglitazone 30 mg tablet 30 mg PO DAILY 06/21/22 [History Last Taken Unknown] rivaroxaban 15 mg tablet (Xarelto) 15 mg PO DAILY 06/21/22 [History Last Taken Unknown] Allergy/AdvReac Type Severity Reaction Status Date / Time cider vinegar Allergy NEEDS Verified 09/07/22 02:41 FOLLOW-UP cottonseed oil Allergy NEEDS Verified 09/07/22 02:41 FOLLOW-UP grass pollen Allergy NEEDS Verified 09/07/22 02:41 FOLLOW-UP morphine Allergy Unknown Verified 09/07/22 02:41 oxycodone HCl Allergy Unknown Verified 09/07/22 02:41 [From OxyContin] propoxyphene HCl Allergy Unknown Verified 09/07/22 02:41 [From Darvon] wool Allergy NEEDS Verified 09/07/22 02:41 FOLLOW-UP chlorhexidine AdvReac Rash Verified 09/07/22 02:41 feathers AdvReac NEEDS Verified 09/07/22 02:41 FOLLOW-UP Family History Mother CAD (coronary artery disease) DVT (deep venous thrombosis) Hypertension Father Prostate cancer Sister Breast cancer Surgical History H/O thumb surgery (2003) H/O transurethral destruction of bladder lesion (03/26/14) H/O tubal ligation (1988) History of bilateral salpingo-oophorectomy (1999) History of (1988) History of colonoscopy (05/17/11) History of fractured kneecap (2007) History of hysterectomy (1999) History of knee replacement (09/02/06) History of laparoscopy (1999) History of lumbar laminectomy (11/05/12) History of partial knee replacement (2006) History of total right hip replacement (09/17/18) History of total right knee replacement (2008) Patellar tendon rupture Status post insertion of inferior vena caval filter (10/30/06) Status post ORIF of fracture of ankle (1986) Social History Smoking Status: Former smoker quit date: 02/18/69 alcohol intake: never substance use type: does not use caffeine: Yes Type: coffee Number of servings: 1 ROS ROS ED Constitutional Constitutional ED: Denies chills or fever(s) Eyes Eyes: Denies change in vision or diplopia ENT ENT ED: Denies rhinorrhea or sore throat Cardiovascular Cardiovascular: Reports as per HPI and palpitations; Denies chest pain or radiating jaw, neck or arm pain Respiratory/Chest Respiratory/Chest: Reports dyspnea; Denies cough Gastrointestinal Gastrointestinal: Denies abdominal pain, diarrhea, nausea or vomiting Genitourinary Genitourinary ED: Denies dysuria or hematuria Musculoskeletal Musculoskeletal: Denies back pain or neck pain Integumentary Denies abscess or rash Neurologic Neurologic: Denies headache(s), paresthesias or weakness Psychiatric Psychiatric: Denies anxiety or suicidal thoughts EXAM Physical Exam Const Vital Signs: 09/07/22 02:36 09/07/22 02:38 09/07/22 02:40 Temperature 97.2 F L Temperature Source Temporal Pulse Rate 92 Respiratory Rate 16 Respiratory Pattern Normal Blood Pressure 150/85 H Blood Pressure Mean 106 Pulse Ox 98 Oxygen Delivery Method Room Air 09/07/22 04:31 Temperature Temperature Source Pulse Rate 73 Respiratory Rate 16 Respiratory Pattern Blood Pressure 114/78 Blood Pressure Mean 90 Pulse Ox 99 Oxygen Delivery Method Positive well nourished and well developed General Appearance ED: well developed and NAD HEENT Reports moist mucous membranes normocephalic and atraumatic Eyes PERRL and EOMs intact bilaterally Neck full ROM and supple Resp normal respiratory effort and clear to auscultation bilaterally Cardio regular rate, regular rhythm and no murmurs Rate: Negative for tachycardic GI non-tender and non-distended Auscultation: normoactive bowel sounds Palpation: soft Back/Spine no CVA tenderness General Back: other FROM Extremity normal to inspection General Extremety ED: Negative for edema, pulses abnormal or tenderness General Extremity: Negative for edema or pulses abnormal Neuro oriented x3, CN's II-XII intact bilaterally, no sensory deficits noted and gait normal Sensorium / Orientation: awake and alert Motor Exam: strength 5/5 throughout Psych Mood & Affect: anxious Skin no rashes or lesions noted and no wounds MDM MDM MDM Narrative Medical decision making narrative: Patient's rhythm and EKG are normal. Her chest x-ray 2 views of my interpretation are normal radiology was basically in agreement that there is nothing acute. Her initial enzymes are negative with a reading of 8. We repeated this 2 hours later it is 9, and in the meantime I gave her Mylanta because I see no evidence of any of this being cardiac or pulmonary that I can tell, plus she is anticoagulated so does not likely have an acute PE. She actually felt better after the GI medication. She had no telemetry events or ectopy on the monitor while she was being monitored here. Furthermore her BNP returned well within normal limits at 62.4, even in context of chronic kidney disease. Very reassuring at this time I am comfortable letting her go home and she is comfortable with that as well. Her vital signs are reevaluation are normal with a blood pressure 114/78, heart rate 73 respirations 16 pulse ox 99% on room air. Lab Data Attestation: I reviewed the patient's lab results. Labs: Laboratory Results - last 24 hr 09/07/22 09/07/22 02:45 04:55 WBC 5.7 RBC 3.38 L Hgb 10.4 L Hct 33.2 L MCV 98.2 MCH 30.8 MCHC 31.3 L RDW Std Deviation 44.9 H RDW Coeff of Mahin 12.5 Plt Count 178 MPV 9.5 Immature Gran % (Auto) 0.500 Neut % (Auto) 49.2 Lymph % (Auto) 33.0 [place] % (Auto) 13.1 H Eos % (Auto) 4.0 Baso % (Auto) 0.2 Absolute Neuts (auto) 2.8 Absolute Lymphs (auto) 1.89 Nucleated RBC % 0 Sodium 141 Potassium 4.6 Chloride 112 H Carbon Dioxide 23.0 Anion Gap 6 BUN 43 H Creatinine 1.41 H Estim Creat Clear Calc 31.60 Est GFR (MDRD) Af Amer 47 L Est GFR (MDRD) Non-Af 39 L BUN/Creatinine Ratio 30.5 H Glucose 144 H Calcium 9.2 Troponin I High Sens 8 9 B-Natriuretic Peptide 62.4 Radiography Diagnostic Testing: Clinical Impression(s) from Imaging Studies Chest X-Ray 09/07/22 03:00 IMPRESSION: No evidence of active intrathoracic disease. Electronically Signed: Sofía Carl MD at 3:27 EDT Reading Location ID and State: [facility] / [place] Tel , Service support , Rhythm Strip Rhythm Strip: Sinus Rhythm Rate: 95 Ectopy: None EKG Initial EKG: Attestation: I personally reviewed and interpreted this EKG as follows: Interpretation: Sinus Rhythm and No Acute Injury Pattern Comments: Normal EKG, rate 84. no ectopy. nml intervals. Discharge Plan Triage Chief Complaint: Palpitations ED Provider: Will Colmenares Dx/Rx/DC Orders Clinical Impression: Palpitations with regular cardiac rhythm, Acute dyspnea Instructions: ED Dyspnea Prescriptions: No Action albuterol sulfate 2.5 mg /3 mL (0.083 %) solution for nebulization 2.5 mg INHALATION Q4H PRN (Reason: shortness of breath or wheezing) famotidine 40 mg tablet 40 mg PO DAILY acetaminophen [Tylenol Arthritis Pain] 650 mg tablet extended release 650 mg PO Q8H gabapentin 600 mg tablet 600 mg PO TID Xarelto 15 mg tablet 15 mg PO DAILY Rx Instructions: must administer with evening meal cetirizine 10 mg tablet 10 mg PO DAILY PRN (Reason: allergy symptoms) atorvastatin 40 mg tablet 40 mg PO DAILY pioglitazone 30 mg tablet 30 mg PO DAILY fluticasone propion-salmeterol 1 PUFF inhaler 1 puff INHALATION BID albuterol sulfate 90 mcg/actuation HFA aerosol inhaler 2 puff inhalation 4X/DAY PRN (Reason: asthma) estradiol 10 mcg tablet 10 mcg vaginal .QMR Patient Comments: TWICE A WEEK ferrous gluconate 324 MG tablet 325 mg PO BID sennosides-docusate sodium 1 TABLET tablet 2 tab PO BID PRN (Reason: Constipation) Rx Instructions: Take until first bowel movement, then as needed carvedilol [Coreg] 3.125 mg tablet 3.125 mg PO BID Qty: 180 3RF Rx Instructions: must administer with a meal/food lisinopril 2.5 mg tablet See Rx Instructions .ROUTE .COMPLEX Qty: 90 4RF Dose Instruction: take 1 tablet by mouth once daily Rx Instructions: take 1 tablet by mouth once daily Primary Care Provider: Quentin Kellogg Chi Referrals: Quentin Kellogg Chi, MD [Primary Care Provider] - 3-5 Days if not improving Disposition Disposition: Home, Self Care
[2022-09-07 02:50] LABS: Absolute Lymphocyte Count 1.89 X10^3/uL (0.83-4.51); Absolute Neutrophil Count 2.8 X10^3/uL (2.0-7.7); Basophil# 0.01 X10^3/uL; Basophil% 0.2 % (0-1); Eosinophil# 0.23 X10^3/uL; Hematocrit 33.2 % (37-47); Hemoglobin 10.4 g/dL (12.0-15.0); Lymphocyte # 1.89 X10^3/ul (0.83-4.51); Mean Corp Hgb Conc 31.3 g/dL (32-36); Mean Corpuscular Hgb 30.8 pg (27.0-32.0); Mean Corpuscular Volume 98.2 fL (81-99); Mean Platelet Vol. 9.5 fl (6.2-12.0); Monocyte# 0.75 X10^3/uL; Monocyte% 13.1 % (0-10); NRBC Flagged by Analyzer 0 % (0-5); Neutrophil # 2.82 X10^3/uL (2.7-7.7); Neutrophil % 49.2 % (47-70); Platelet Count 178 K/mm3 (150-450); RBC Distribution Width CV 12.5 % (11.6-14.6); RBC Distribution Width SD 44.9 fl (35.1-43.9); Red Blood Count 3.38 M/mm3 (4.2-5.4); White Blood Count 5.7 K/mm3 (4.4-11.0)
--- NOTE | 2022-09-07 03:00 | RAD_ITS ---
INDICATION: chest pain EXAMINATION/TECHNIQUE: X-RAY - XR Chest 2 Views COMPARISON: 06/09/2021 FINDINGS: LINES/DEVICES: None. LUNGS: No consolidation. No pneumothorax. MEDIASTINUM: Aorta is atherosclerotic. CARDIAC SILHOUETTE: Not enlarged. BONES AND SOFT TISSUES: Degenerative changes dorsal spine. RAD/Chest PA and Lateral IMPRESSION: No evidence of active intrathoracic disease. Electronically Signed: Sofía Carl MD at 3:27 EDT ,
[2022-09-07 03:10] LABS: Anion Gap 6 (5-15); BUN 43 mg/dL (7-18); BUN/Creat Ratio 30.5 RATIO (10-20); Calcium,Total 9.2 mg/dL (8.5-10.1); Chloride 112 mmol/L (98-107); Creatinine, Serum 1.41 mg/dL (0.55-1.02); EST Glomerular Filtration Rate 39 mL/min (>60); Est Glom Filt Rate - Afr Amer 47 mL/min (>60); Glucose 144 mg/dL (74-106); Potassium 4.6 mmol/L (3.5-5.1); Sodium Level 141 mmol/L (136-145); Troponin-I HS (w/2H Reflex) 8 pg/mL (3.0-54.0)
[2022-09-07 03:34] LABS: BNP,B-Type NATRIURETIC PEPTIDE 62.4 pg/mL (0-100)
[2022-09-07] MEDS: Mag Hydrox/Al Hydrox/Simeth 30 ML UDC PO (04:14)
[2022-09-07 04:31] VITALS: BP 114/78; PULSE 73; RESP 16; O2SAT 99
[2022-09-07 04:47] LABS: Reflex Troponin-HS? (from REC) Y
[2022-09-07 05:36] LABS: Troponin-I HS 9 pg/mL (3.0-54.0)
[2022-09-07 05:57] VITALS: BP 118/80; PULSE 71; RESP 16; O2SAT 96
== END 2022-09-07 05:58 | disposition home or self-care (01) ==
PROVIDERS: Emergency Provider Emergency Medicine; PCP Family Medicine Geriatric Medicine; Visit Provider Emergency Medicine
DX: R00.2 Palpitations (principal); J42 Unspecified chronic bronchitis; I42.9 Cardiomyopathy, unspecified; E11.22 Type 2 diabetes mellitus with diabetic chronic kidney disease; R19.7 Diarrhea, unspecified; E78.5 Hyperlipidemia, unspecified; Z87.891 Personal history of nicotine dependence; N18.9 Chronic kidney disease, unspecified; I12.9 Hypertensive chronic kidney disease with stage 1 through stage 4 chronic kidney disease, or unspecified chronic kidney disease; R06.09 Other forms of dyspnea; Z86.711 Personal history of pulmonary embolism; Z86.718 Personal history of other venous thrombosis and embolism
CPT/HCPCS: 71046; 80048; 83880; 84484; 85025; 93005; 99285; A4216

== ENCOUNTER → 2022-09-11 | Outpatient (CLI) | payer MEDICARE, SELFPAY ==
[2022-09-11 12:32] LABS: Absolute Lymphocyte Count 2.05 X10^3/uL (0.83-4.51); Absolute Neutrophil Count 2.8 X10^3/uL (2.0-7.7); Basophil# 0.02 X10^3/uL; Basophil% 0.3 % (0-1); Eosinophil# 0.22 X10^3/uL; Eosinophils% 3.8 % (0-5); Hematocrit 34.4 % (37-47); Hemoglobin 10.7 g/dL (12.0-15.0); Lymphocyte # 2.05 X10^3/ul (0.83-4.51); Lymphocyte % 35.3 % (19-41); Mean Corp Hgb Conc 31.1 g/dL (32-36); Mean Corpuscular Hgb 30.2 pg (27.0-32.0); Mean Corpuscular Volume 97.2 fL (81-99); Mean Platelet Vol. 9.6 fl (6.2-12.0); Monocyte# 0.61 X10^3/uL; Monocyte% 10.5 % (0-10); NRBC Flagged by Analyzer 0 % (0-5); Neutrophil # 2.84 X10^3/uL (2.7-7.7); Neutrophil % 48.9 % (47-70); Platelet Count 228 K/mm3 (150-450); RBC Distribution Width CV 12.3 % (11.6-14.6); RBC Distribution Width SD 43.9 fl (35.1-43.9); Red Blood Count 3.54 M/mm3 (4.2-5.4); White Blood Count 5.8 K/mm3 (4.4-11.0)
[2022-09-11 12:48] LABS: AST(SGOT) 19 U/L (15-37); Alanine Aminotransfer ALT/SGPT 28 U/L (13-56); Albumin, Serum 3.7 g/dL (3.2-5.0); Alkaline Phosphatase 103 U/L (45-117); Anion Gap 4 (5-15); BUN 30 mg/dL (7-18); BUN/Creat Ratio 21.6 RATIO (10-20); Calcium,Total 9.4 mg/dL (8.5-10.1); Chloride 110 mmol/L (98-107); Creatinine, Serum 1.39 mg/dL (0.55-1.02); EST Glomerular Filtration Rate 40 mL/min (>60); Est Glom Filt Rate - Afr Amer 48 mL/min (>60); Globulin 3.6 g/dL (2.2-4.2); Glucose 123 mg/dL (74-106); Potassium 5.4 mmol/L (3.5-5.1); Protein, Total 7.3 g/dL (6.4-8.2); Sodium Level 138 mmol/L (136-145)
--- NOTE | 2022-09-11 14:08 | RAD_ITS ---
INDICATION: DIARRHEA COMPARISON: None. FINDINGS: 2 frontal views of the abdomen. Nonobstructive bowel gas pattern. No obvious free air. No definite suspicious calcifications. No mass appreciated. Lower lumbar orthopedic hardware without obvious hardware complication. Right total hip arthroplasty, only partially imaged, although no obvious hardware complication. RAD/Abdomen Single View IMPRESSION: No acute abnormality of the abdomen. Electronically Signed: Miah Franz MD at 3:05 EDT ,
== END | disposition home or self-care (01) ==
LOC: POLAB3 13:06 → RAD 14:01
PROVIDERS: PCP Family Medicine Geriatric Medicine; Referring Provider Family Medicine Geriatric Medicine; Visit Provider Family Medicine Geriatric Medicine
DX: R19.7 Diarrhea, unspecified (principal); E86.0 Dehydration; R11.0 Nausea; N39.0 Urinary tract infection, site not specified
CPT/HCPCS: 36415; 74018; 80053; 82274; 83630; 85025; 87077; 87086; 87088; 87177; 87186; 87209; 87493; 87506

== ENCOUNTER → 2022-09-19 | Outpatient (CLI) | payer MEDICARE, SELFPAY ==
[2022-09-19 13:22] LABS: Anion Gap 6 (5-15); BUN 27 mg/dL (7-18); BUN/Creat Ratio 18.1 RATIO (10-20); Calcium,Total 9.1 mg/dL (8.5-10.1); Chloride 112 mmol/L (98-107); Creatinine, Serum 1.49 mg/dL (0.55-1.02); EST Glomerular Filtration Rate 37 mL/min (>60); Est Glom Filt Rate - Afr Amer 44 mL/min (>60); Glucose 112 mg/dL (74-106); Potassium 4.8 mmol/L (3.5-5.1); Sodium Level 142 mmol/L (136-145)
== END | disposition home or self-care (01) ==
LOC: LAB 11:17
PROVIDERS: PCP Family Medicine Geriatric Medicine; Referring Provider Family Medicine Geriatric Medicine; Visit Provider Family Medicine Geriatric Medicine
DX: E87.5 Hyperkalemia (principal)
CPT/HCPCS: 36415; 80048

== ENCOUNTER → 2022-12-04 | Outpatient (CLI) | payer MEDICARE, SELFPAY ==
[2022-12-04 11:43] LABS: Hematocrit 34.5 % (37-47); Hemoglobin 10.5 g/dL (12.0-15.0); Mean Corp Hgb Conc 30.4 g/dL (32-36); Mean Corpuscular Hgb 30.1 pg (27.0-32.0); Mean Corpuscular Volume 98.9 fL (81-99); POSITIVE COUNT YES; POSITIVE MORPHOLOGY YES; Platelet Count 191 K/mm3 (150-450); RBC Distribution Width SD 46.4 fl (35.1-43.9); Red Blood Count 3.49 M/mm3 (4.2-5.4); White Blood Count 7.3 K/mm3 (4.4-11.0)
[2022-12-04 11:49] LABS: Differential Indicated MANUAL DIFF
[2022-12-04 12:03] LABS: Vitamin D,25 Hydroxy 41.9 ng/mL
[2022-12-04 12:08] LABS: ALB/GLOB Ratio 1.1 RATIO (0.9-2.4); AST(SGOT) 19 U/L (15-37); Alanine Aminotransfer ALT/SGPT 30 U/L (13-56); Albumin, Serum 3.6 g/dL (3.2-5.0); Alkaline Phosphatase 75 U/L (45-117); Anion Gap 1 (5-15); BUN 43 mg/dL (7-18); BUN/Creat Ratio 27.9 RATIO (10-20); Calcium,Total 9.1 mg/dL (8.5-10.1); Chloride 111 mmol/L (98-107); Creatinine, Serum 1.54 mg/dL (0.55-1.02); EST Glomerular Filtration Rate 35 mL/min (>60); Est Glom Filt Rate - Afr Amer 43 mL/min (>60); Globulin 3.3 g/dL (2.2-4.2); Glucose 110 mg/dL (74-106); Protein, Total 6.9 g/dL (6.4-8.2); Sodium Level 137 mmol/L (136-145); Thyroid Stim Hormone (TSH) 1.66 uIU/mL (0.358-3.74)
[2022-12-04 13:43] LABS: Neutrophil-Segmented 50 % (47-70); Total Cells Counted 100 (MANUAL DIFF)
[2022-12-04 13:44] LABS: Eosinophil 2 % (0-5); Lymphocyte 33 % (19-41); Metamyelocyte 1 % (0-1); Monocyte 10 % (0-10); Myelocyte 4 % (0-0)
[2022-12-04 13:46] LABS: Platelet Estimate ADEQUATE (ADEQ); Red Cell Morphology NORM C+C NORMAL (NORM C&C)
[2022-12-04 13:47] LABS: Absolute Lymphocyte Count 2.41 X10^3/uL (0.83-4.51); Absolute Neutrophil Count 3.7 X10^3/uL (2.0-7.7)
[2022-12-05 15:20] LABS: Pathologist Review Reviewed
== END | disposition home or self-care (01) ==
LOC: POLAB3 10:57
PROVIDERS: PCP Family Medicine Geriatric Medicine; Visit Provider Family Medicine Geriatric Medicine
DX: E11.65 Type 2 diabetes mellitus with hyperglycemia (principal); I10 Essential (primary) hypertension; E55.9 Vitamin D deficiency, unspecified
CPT/HCPCS: 36415; 80053; 82306; 84443; 85025

== ENCOUNTER → 2023-03-07 | Outpatient (CLI) | payer MEDICARE, SELFPAY ==
--- OUTSIDE RECORDS SUMMARY | 2023-03-07 10:22 | XMS RPT_ITS | CCD ---
Author Name Unknown Address [address] [place] [address] Organization [facility] Care Team Providers Care 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 Name Role Phone Bernardo Giang MD Primary Care Provider [phone] Kacey, Kody Chi Primary Care Provider KACEY, KODY CHI Primary Care Unavailable ARGELIA THOMSON Referring Unavailable ARGELIA THOMSON Attending Unavailable KACEY, KDOY CHI Primary Care Unavailable KACEY, KODY CHI Primary Care Unavailable ARGELIA THOMSON Attending Unavailable Kacey, Kody Chi Primary Care Provider [phone] Allergies Allergy Classification Reported Allergen(s) Allergy Type Date of Onset Reaction(s) Facility (14 sources) Chlorhexidine; Translations: [CHLORHEXIDINE] Drug Allergy 4 Itching [facility] (14 sources) Feather; Translations: [FEATHERS] Drug Allergy 5 Other: See Comments [facility] Work Phone: (14 sources) Grass pollen; Translations: [GRASS POLLEN] Drug Allergy 3 Itching [facility] Work Phone: (14 sources) Morphine; Translations: [MORPHINE] Drug Allergy 9 Mental Status Change [facility] (14 sources) Propoxyphene; Translations: [PROPOXYPHENE HCL] Drug Allergy 9 Mental Status Change [facility] (14 sources) Cotton; Translations: [COTTON] Allergy to substance 5 Other: See Comments [facility] Work Phone: (14 sources) Vinegar; Translations: [VINEGAR] Food Allergy 5 Other: See Comments [facility] Work Phone: (14 sources) Wool; Translations: [WOOL] Allergy to substance Other: See Comments [facility] Work Phone: Medications Current Medications Medication Drug Class(es) Dates Sig (Normalized) Sig (Original) amoxicillin 875 mg / clavulanate 125 mg oral tablet (2 sources) Penicillin-class Antibacterial Start: 05-09-2021 End: 05-19-2021 take 1 tablet by mouth twice daily amoxicillin-clav ulanic acid (AUGMENTIN) 875-125 mg per tablet Indications: Bacterial pneumonia Take 1 tablet by mouth twice daily for 10 days. 20 tablet 0 05/09/2021 05/19/2021 Active Completed/Discontinued Medications Medication Drug Class(es) Dates Sig (Normalized) Sig (Original) albuterol 0.83 mg/ml inhalation solution (20 sources) beta2-Adrenergic Agonist Start: 02-20-2021 End: 05-21-2021 albuterol (PROVENTIL) 2.5 mg /3 mL (0.083 %) nebulizer solution Indications: Moderate persistent asthma with acute exacerbation Use 3 mL via nebulizer every 4 hours as needed for wheezing/shortness of breath. Use over 5-15minutes. 90 mL 2 02/20/2021 Active Problems Active Problems Problem Classification Problem Date Documented Da te Episodic/Chronic Asthma (13 sources) Exacerbation of moderate persistent asthma; Translations: [Moderate persistent asthma with (acute) exacerbation] 03-02-2021 Chronic Cardiac dysrhythmias (13 sources) Paroxysmal atrial flutter; Translations: [Unspecified atrial flutter] Onset: 9 03-14-2018 Chronic Deficiency and other anemia (13 sources) Iron deficiency anemia due to blood loss; Translations: [Iron deficiency anemia secondary to blood loss (chronic)] Onset: 9 06-16-2018 Chronic Deficiency and other anemia (13 sources) Anemia co-occurrent and due to chronic kidney disease stage 3; Translations: [Anemia due to stage 3 chronic kidney disease] Onset: 9 06-17-2018 Chronic Diabetes mellitus with complications (13 sources) Type 2 diabetes mellitus; Translations: [Type 2 diabetes mellitus with diabetic chronic kidney disease] Onset: 8 05-05-2020 Chronic Disorders of lipid metabolism (13 sources) Hyperlipidemia; Translations: [Hyperlipidemia, unspecified] Onset: 3 04-28-2015 Chronic Esophageal disorders (13 sources) Gastroesophageal reflux disease; Translations: [Gastro-esophageal reflux disease without esophagitis] Onset: 6 11-01-2015 Chronic Genitourinary symptoms and ill-defined conditions (14 sources) Incontinence; Translations: [Mixed incontinence] Onset: 5 02-13-2021 Chronic Menopausal disorders (15 sources) Atrophic vaginitis; Translations: [Postmenopausal atrophic vaginitis] Onset: 7 06-27-2016 Chronic Osteoarthritis (20 sources) Degenerative joint disease involving multiple joints; Translations: [Polyosteoarthritis, unspecified] Onset: 9 11-08-2004 Chronic Other gastrointestinal disorders (13 sources) Malabsorption - iron; Translations: [Intestinal malabsorption, unspecified] Onset: 9 06-16-2018 Chronic Other lower respiratory disease (1 source) Cough; Translations: [Cough] Episodic Other nutritional; endocrine; and metabolic disorders (13 sources) Obese class I; Translations: [Obesity, unspecified] Onset: 9 10-31-2018 Chronic Other screening for suspected conditions (not mental disorders or infectious disease) (6 sources) Patient encounter status; Translations: [Encounter for screening mammogram for malignant neoplasm of breast] Onset: 3 Episodic Other upper respiratory disease (14 sources) Allergic rhinitis; Translations: [Allergic rhinitis, unspecified] 12-18-2017 Chronic Other upper respiratory infections (13 sources) Chronic sinusitis; Translations: [Chronic sinusitis, unspecified] Onset: 2 03-12-2021 Chronic Phlebitis; thrombophlebitis and thromboembolism (15 sources) 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; Translations: [Chronic embolism and thrombosis of unspecified deep veins of proximal lower extremity, bilateral] Onset: 7 Chronic Urinary tract infections (13 sources) Chronic cystitis; Translations: [Other chronic cystitis without hematuria] Onset: 4 02-13-2021 Chronic Past or Other Problems Problem Classification Problem Date Documented Da te Episodic/Chronic Acquired foot deformities (13 sources) Left foot drop; Translations: [Foot drop, left foot] Onset: 01-05-2011 11-08-2016 Episodic Other bone disease and musculoskeletal deformities (13 sources) Disorder of skeletal system; Translations: [Disorder of bone, unspecified] Onset: 01-02-2006 01-02-2006 Episodic Other nervous system disorders (13 sources) Impaired cognition; Translations: [Other symptoms and signs involving cognitive functions and awareness] Onset: 04-10-2017 04-10-2017 Episodic Spondylosis; intervertebral disc disorders; other back problems (13 sources) Degenerative lumbar spinal stenosis; Translations: [Spinal stenosis, lumbar region without neurogenic claudication] Onset: 03-11-2012 12-18-2017 Episodic Results Test Name Value Interpretation Reference Range Facil ity Vital Signs Date Time Vital Sign Value Performing Clinician Faci lity 04-16-2022 09:10-0500 Body weight 70.76 kg Argelia Thomson MD Work Phone: [facility] 04-16-2022 09:10-0500 Diastolic blood pressure 72 mm[Hg] Argelia Thomson MD Work Phone: [facility] 04-16-2022 09:10-0500 Systolic blood pressure 126 mm[Hg] Argelia Thomson MD Work Phone: [facility] 05-31-2021 08:18-0400 Body temperature 96.91 [degF] Pia Thomson APRN.LAB COURIER Work Phone: [facility] 05-31-2021 08:18-0400 Body weight 77.93 kg Pia Thomson APRN.LAB COURIER Work Phone: [facility] 05-31-2021 08:18-0400 Diastolic blood pressure 78 mm[Hg] Pia Thmoson APRN.LAB COURIER Work Phone: [facility] 05-31-2021 08:18-0400 Heart rate 85 /min Pia Thomson APRN.LAB COURIER Work Phone: [facility] 05-31-2021 08:18-0400 Respiratory rate 21 /min Pia Thomson APRN.LAB COURIER Work Phone: [facility] 05-31-2021 08:18-0400 SaO2% (BldA) [Mass fraction] 97 % Pia Thomson APRN.LAB COURIER Work Phone: [facility] 05-31-2021 08:18-0400 Systolic blood pressure 120 mm[Hg] Pia Thomson APRN.CNP Work Phone: [facility] Encounters Encounter Date Encounter Type Care Provider Facility Start: 10-26-2022 End: 10-26-2022 ambulatory KODY CHI KACEY Facility:[facility] Start: 10-26-2022 End: 10-26-2022 Subsequent hospital visit by physician [facility] Start: 08-03-2022 Telephone encounter Argelia wiley MD Work Phone: OB/Gynecology Procedures Date Procedure Procedure Detail Performing Clinician Start: 10-26-2022 Screening mammograph y bi 2-view breast inc cad Argelia Thomson MD Work Phone: Start: 06-28-2021 Radex spine lumbosac ral 2/3 views [facility] Provider Start: 05-25-2021 PROTHROMBIN TIME/PT [facility] Provider Start: 05-15-2021 PROTHROMBIN TIME/PT Stefano cheng Giang MD Work Phone: Start: 12-09-2020 Adult depression scr eening assessment Bernardo Giang MD Work Phone: Start: 04-11-2020 Mammography Bernardo Ramirez MD Work Phone: Start: 04-20-2019 Colonoscopy Bernardo Ramirez MD Work Phone: Plan of Treatment Date Care Activity Detail Author Start: 06-07-2032 Urine microalbumin profile DTaP,Tdap,Td Vaccine (5 - Td or Tdap) [facility] Start: 12-03-2024 Urine microalbumin profile DTAP,TDAP,TD (4 - Td or Tdap) [facility] Start: 04-19-2024 Colonoscopy COLONOSCOPY [facility] Start: 04-19-2024 COLORECTAL CANCER SCREENING COLORECTAL CANCER SCREENING [facility] Start: 10-27-2023 Mammography Mammogram Screening [facility] Start: 10-19-2022 Covid-19 Vaccine () Covid-19 Vaccine () [facility] Start: 09-01-2023 Influenza vaccination [facility] Start: 03-02-2022 ANNUAL PCP TEAM CHRONIC DISEASE VISIT ANNUAL PCP TEAM CHRONIC DISEASE VISIT [facility] Start: 02-18-2022 ADVANCE DIRECTIVE DISCUSSION ADVANCE DIRECTIVE DISCUSSION [facility] Start: 02-18-2022 DEPRESSION ASSESSMENT DEPRESSION ASSESSMENT [facility] Start: 01-18-2022 Hepatitis C antibody, confirmatory test DILATED RETINAL EXAM [facility] Start: 12-09-2021 3 comp foot exam completed DIABETIC FOOT EXAM [facility] Start: 12-09-2021 Adult depression screening assessment DEPRESSION SCREENING [facility] Start: 10-19-2021 Influenza vaccination INFLUENZA (#1) [facility] Start: 07-28-2021 COVID-19 VACCINE (6 - Booster for Pfizer series) COVID-19 VACCINE (6 - Booster for Pfizer series) [facility] Start: 07-14-2021 COVID-19 VACCINE (5 - Booster for Pfizer series) COVID-19 VACCINE (5 - Booster for Pfizer series) [facility] Start: 06-23-2021 Hepatitis B surface antibody level LDL CHOLESTEROL [facility] Start: 04-11-2021 Mammography MAMMOGRAM [facility] Start: 02-18-2021 ADVANCE DIRECTIVE DISCUSSION ADVANCE DIRECTIVE DISCUSSION [facility] Start: 11-09-2020 Hemoglobin A1c/Hemoglobin.total in Blood HBA1C [facility] Start: 11-08-2020 HEMOGLOBIN/HEMATOCRIT HEMOGLOBIN/HEMATOCRIT [facility] Start: 11-08-2020 Hepatitis B screening URINE ALBUMIN:CREATININE RATIO [facility] Start: 11-08-2020 SERUM CREATININE SERUM CREATININE [facility] Start: 06-12-2019 FECAL OCCULT BLOOD FECAL OCCULT BLOOD [facility] Start: 2010 Hepatitis B Vaccine (1 of 3 - Risk 3-dose series) Hepatitis B Vaccine (1 of 3 - Risk 3-dose series) [facility] Start: 2010 RSV Vaccine (1 - 1-dose 60+ series) RSV Vaccine (1 - 1-dose 60+ series) [facility] Start: 11-20-1995 COLOGUARD (FIT-DNA) COLOGUARD (FIT-DNA) [facility] Start: 11-20-[address] COLONOGRAPHY [facility] Start: 11-20-1995 SIGMOIDOSCOPY SIGMOIDOSCOPY [facility] End: 05-16-2023 DANAY SCREENING W [facility]NAY SCREENING [facility] Radiology Routine Breast cancer screening by mammogram Dense breast 1 Occurrences starting 04/16/2022 until 05/16/2023 [facility] Work Phone: Immunizations Immunization Date Immunization Notes Care Provider Fa santiagomehul 05-19-2021 COVID-19 vaccine, ag e 12+ yr (PFIZER-BIONTECH - PURPLE TOP) Bernardo Giang MD Work Phone: [facility] 01-10-2021 COVID-19 vaccine, ag e 12+ yr (PFIZER-BIONTECH - PURPLE TOP) Bernardo Giang MD Work Phone: [facility] Work Phone: 12-06-2020 influenza, high dose seasonal, preservative-free Bernardo Giang MD Work Phone: [facility] Work Phone: 12-06-2020 influenza virus vacc ine, unspecified formulation Screen Wstr [facility] 04-26-2020 COVID-19 vaccine, ag e 12+ yr (PFIZER-BIONTECH - PURPLE TOP) Bernardo Giang MD Work Phone: [facility] Work Phone: 12-11-2019 influenza, high dose seasonal, preservative-free Bernardo Giang MD Work Phone: [facility] Work Phone: 04-13-2019 hepatitis A vaccine, unspecified formulation Bernardo Giang MD Work Phone: [facility] Work Phone: 04-13-2019 pneumococcal conjuga te vaccine, 13 valent Bernardo Giang MD Work Phone: [facility] Work Phone: 12-11-2018 influenza, seasonal, injectable Bernardo Giang MD Work Phone: [facility] Work Phone: 07-30-2018 hepatitis A vaccine, adult dosage Bernardo Giang MD Work Phone: [facility] 07-30-2018 zoster vaccine recombinant Bernardo Giang MD Work Phone: [facility] 03-27-2018 zoster vaccine recombinant Bernardo Giang MD Work Phone: [facility] Work Phone: 12-18-2017 influenza, high dose seasonal, preservative-free Bernardo Giang MD Work Phone: [facility] 12-18-2017 pneumococcal polysaccharide vaccine, 23 valent Bernardo Giang MD Work Phone: [facility] 12-05-2016 influenza, seasonal, injectable Bernardo Giang MD Work Phone: [facility] 05-03-2016 pneumococcal conjuga te vaccine, 13 valent Bernardo Giang MD Work Phone: [facility] 12-07-2015 influenza, high dose seasonal, preservative-free Bernardo Giang MD Work Phone: [facility] Work Phone: 12-03-2014 influenza, seasonal, injectable Bernardo Giang MD Work Phone: [facility] 12-03-2014 tetanus toxoid, redu clary diphtheria toxoid, and acellular pertussis vaccine, adsorbed Bernardo Giang MD Work Phone: [facility] Work Phone: 12-01-2013 influenza, seasonal, injectable Bernardo Giang MD Work Phone: [facility] 11-10-2012 influenza virus vacc ine, whole virus Bernardo Giang MD Work Phone: [facility] Work Phone: 09-02-2012 zoster vaccine, live Bernardo Giang MD Work Phone: [facility] Work Phone: 12-13-2011 influenza virus vacc ine, unspecified formulation Bernardo iGang MD Work Phone: [facility] 11-15-2011 tetanus toxoid, redu clary diphtheria toxoid, and acellular pertussis vaccine, adsorbed Bernardo Giang MD Work Phone: [facility] Work Phone: 12-22-2010 influenza virus vacc ine, unspecified formulation Bernarod Giang MD Work Phone: [facility] 12-02-2009 influenza virus vacc ine, unspecified formulation Bernardo Giang MD Work Phone: [facility] Work Phone: 12-28-2008 novel influenza-H1N1 -09, all formulations Bernardo Giang MD Work Phone: [facility] Work Phone: 12-29-2007 influenza virus vacc ine, unspecified formulation Bernardo Giang MD Work Phone: [facility] Work Phone: 12-29-2007 pneumococcal polysaccharide vaccine, 23 valent Bernardo Giang MD Work Phone: [facility] 12-25-2007 influenza virus vacc ine, unspecified formulation Bernardo Giang MD Work Phone: [facility] Work Phone: 12-16-2006 influenza virus vacc ine, unspecified formulation Bernardo Giang MD Work Phone: [facility] Work Phone: 12-25-2005 influenza virus vacc ine, unspecified formulation Bernardo Giang MD Work Phone: [facility] 12-14-2004 influenza virus vacc ine, unspecified formulation Bernardo Giang MD Work Phone: [facility] Work Phone: 11-18-2001 diphtheria and tetan us toxoids, adsorbed for pediatric use Bernardo Giang MD Work Phone: [facility] Work Phone: Payers Date Payer Category Payer Unknown ANTHEM BLUE CROS S AND BLUE SHIELD ANTHEM MEDIBLUE O [id number] 2021-[facility] [phone] [address] [place] [address] [facility] [id number] 2021 Unknown ANTHTAWNYA BLUE CR[employer] S AND BLUE SHIELD KATEY DOYLE O [id number] 2021-Present [phone] [address] [place] [address] O [id number] 2021 Unknown [id number] Social History Date Type Detail Facility Start: 04-28-2014 End: 07-31-2022 Tobacco smoking status NHIS Ex-smoker [facility] Work Phone: End: 02-18-1969 History of tobacco use Current smoker [facility] Work Phone: End: 02-18-1969 History of tobacco use Cigarette Smoker [facility] Work Phone: Start: 04-28-2014 End: 07-31-2022 Tobacco use and exposure Smokeless tobacco non-user [facility] Work Phone: Start: 05-09-2021 End: 07-31-2022 Alcohol intake Current non-drinker of alcohol (finding) [facility] Start: 10-25-2017 History SDOH Alcohol Comment rarely [facility] Start: 07-14-2019 End: 07-31-2022 Tobacco Comment Pt smoked 1-2 cigarettes daily x 1-2 years. [facility] Start: 1950 Sex Assigned At Not on file C [facility] Start: 04-22-2021 End: 05-31-2021 Exposure to SARS-CoV-2 (event) Not sure [facility] Start: 12-09-2020 End: 07-31-2022 History of Social function [facility] Work Phone: Start: 12-09-2020 End: 07-31-2022 Tobacco use panel [facility] Work Phone: Adult Depression Screening Assessment 0 [facility] Work Phone: Medical Equipment Procedure Code Equipment Code Equipment Origin al Text Equipment Identifier Dates Start: 12-04-2016 Clinical Notes 08-30-2017 to 10-26-2022 Trinidad Ramos RT(Mala) - 10/26/2022 8:10 AM EDTTelephone Encounter - Karon Galvan RN - 08/06/2022 11:35 AM EDTTelephone Encounter - Karon Galvan RN - 08/03/2022 3:02 PM EDT Note Date & Type Note Facility 10-26-2022 Note HNO ID: [id number] Author: Trinidad Ramos RT(R) Service: ? Author Type: Technologist Type: Progress Notes Filed: 10/26/2022 7:55 AM Note Text: Radiology Service Progress Note PATIENT NAME: Annette Combs DATE OF SERVICE: October 26, 2022 TIME: 7:55 AM PATIENT IDENTITY VERIFICATION COMPLETED USING TWO (2) IDENTIFIERS: Name and Date of confirmed by patient verbally. FALL SCREENING: Has the patient had 2 falls in the last year or 1 fall with injury or currently using an Ambulatory Assistive Device (Walker, Cane, Wheelchair, Crutches, etc.)? No PATIENT GENDER DATA: Female. status: : No status: NO. PATIENT RELEVANT IMPLANT DATA REVIEWED: Not Applicable RADIOLOGY DEPARTMENT: Mammography PERIPHERAL IV DATA: Not applicable SIGNED BY: RT Zaira(Mala) October 26, 2022 7:55 AM [facility] 10-26-2022 History of Presen t illness Narrative Radiology Service Progress Note PATIENT NAME: Annette Combs DATE OF SERVICE: October 26, 2022 TIME: 7:55 AM PATIENT IDENTITY VERIFICATION COMPLETED USING TWO (2) IDENTIFIERS: Name and Date of confirmed by patient verbally. FALL SCREENING: Has the patient had 2 falls in the last year or 1 fall with injury or currently using an Ambulatory Assistive Device (Walker, Cane, Wheelchair, Crutches, etc.)? No PATIENT GENDER DATA: Female. status: : No status: NO. PATIENT RELEVANT IMPLANT DATA REVIEWED: Not Applicable RADIOLOGY DEPARTMENT: Mammography PERIPHERAL IV DATA: Not applicable SIGNED BY: RT Zaira(Mala) October 26, 2022 7:55 AM documented in this encounter [facility] 08-06-2022 Miscellaneous Notes Patient viewed Mychart message. Karon Galvan RN Left message for patient to call office or check Mychart messages. Karon Galvan RN Rx macrobid given Argelia Thomson MD Please file RX. Patient needs notified. ----- Message from Argelia Thomson MD sent at 08/03/2022 1:54 PM EDT ----- Needs treated for UTI Argelia Thomson MD documented in this encounter [facility] 07-31-2022 Note HNO ID: [id number] Author: Argelia Thomson MD Service: ? Author Type: Physician Type: Progress Notes Filed: 07/31/2022 12:15 PM Note Text: Travel Assistant offered: Patient declines. Annette Combs is a 71 year old female who presents for problem visit. HPI: Patient presents with urinary incontinence that is getting worse. She reports both urge AND stress incontinence. Patient is having trouble getting to the bathroom. When she gets up to go to the bathroom and starts walking she has significant leakage. Denies vaginal concerns. 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 History Comments: Sexual Activity: Not Currently; Male; tubal ligation prior to hysterectomy Contraception: Surgical PAST MEDICAL HISTORY Diagnosis Date Acute, but ill-defined, cerebrovascular disease 1989 Allergic rhinitis, cause unspecified Allergic rhinitis Anal and rectal polyp FIBROPLASTIC Anemia, unspecified Atrial flutter, paroxysmal ([facility] 03/14/2018 CKD (chronic kidney disease) stage 3, GFR 30-59 ml/min ([facility]) 07/12/2017 Cognitive impairment 04/10/2017 Colitis, collagenous 09/03/2011 Degenerative joint disease of right knee 10/19/2010 Degenerative lumbar spinal stenosis Generalized osteoarthrosis, unspecified site KNEE JOINT REPLACEMENT STATUS 09/02/2006 Left foot drop 01/05/2011 Lichen Simplex Chronicus (LSC) 04/24/2013 Lung nodule 10/20/2010 Mixed incontinence 10/28/2014 Dr. Almendarez Nontraumatic rupture of patellar tendon 07/2007 sugical repair 07/29/[address] Devries Other and unspecified hyperlipidemia 06/20/2012 Other pulmonary embolism and infarction 10/30/2006 Postlaminectomy syndrome 02/01/2016 Postmenopausal atrophic vaginitis 06/27/2016 Scoliosis [facility] from [facility] 08/03/11 showed; also has narrowing L3-L4 and L4- L5; DJD L3, L4, L5; slight anterior displacement L4 on L5. Symptomatic menopausal or female climacteric states Unspecified asthma(493.90) Unspecified hemorrhoids without mention of complication Hemorrhoids Urge incontinence 02/01/2005 VENOUS THROMBOSIS LOWER EXTREMITY NOS 10/30/2006 Post op left knee arthroscopy; ?PE at that time PAST SURGICAL HISTORY Procedure Laterality Date ARTHROSCOPY KNEE DIAGNOSTIC W/WO SYNOVIAL BX SPX Left 05/10/2003 Arthroscopy, knee Left ARTHRP KNE CONDYLEANDPLATU MEDIALANDLAT COMPARTMENTS Right 2008 right knee replacement DELIVERY ONLY 1988 , low cervical COLONOSCOPY 03/25/01 R Cebul - hyperplastic polyp COLONOSCOPY 04/20/2019 COLONOSCOPY FLX DX W/COLLJ SPEC WHEN PFRMD 08/05/2018 Colonoscopy [facility] (Notes Tab) COLONOSCOPY W/BIOPSY SINGLE/MULTIPLE 05/17/11 repeat EGD TRANSORAL BIOPSY SINGLE/MULTIPLE 05/17/11 FILTER PLACEMENT (VENA CAVA) 11-03-12 HEMORRHOIDECTOMY NTRNL AND XTRNL 1 COLUMN/GROUP 03/27/01 HIP SURGERY HX Right 06/11/2018 LAMINECTOMY W/O FFD /2 VERT SEG LUMBAR 11/05/2012 Laminectomy, lumbar LAMINECTOMY,LUMBAR 1995 Back surgery LAPS ABD PRTMANDOMENTUM DX W/WO SPEC BR/WA SPX 1999 Laparoscopy LIG/TRNSXJ FLP TUBE ABDL/VAG APPR UNI/BI 1988 Tubal ligation OPTX ANKLE DISLOCATION W/REPAIR/INT/XTRNL FIXJ 1987 ORIF Ankle PAST SURGICAL HISTORY OF 2004 Thumb bilateral PAST SURGICAL HISTORY OF Left 07/2006 partial knee replacement left PAST SURGICAL HISTORY OF Right 2008 repair knee cap PAST SURGICAL HISTORY OF 03/26/2014 transurethral resection of bladder lesion. vaginal sling. Dr. Almendarez RETRIEV INTRAVASC FOREGN BODY 01/30/13 filter removal SALPINGO-OOPHORECTOMY COMPL/PRTL UNI/BI SPX 1999 Salpingo-oophorectomy bilateral TOTAL ABDOMINAL HYSTERECT W/WO RMVL TUBE OVARY 2000 AANDP REPAIR hyst for benign reason TOTAL HIP JOINT REPLACEMENT Right 08/30/[address] Blevins FAMILY HISTORY Problem Relation Age of Onset Blood Disease Mother blood clot, coumadin Hypertension Mother Coronary Artery Disease Mother 84 Cancer Father poss bladder Prostate Cancer Father Breast Cancer Sister 64 None Sister None Sister Diabetes Paternal Grandmother Colon Cancer Paternal Grandmother Stroke Paternal Grandfather Diabetes Paternal Grandfather Cancer Maternal Grandfather LEUKEMIA Cancer Maternal Uncle Psychiatry Sister anxiety Social History Tobacco Use Smoking status: Former Types: Cigarettes Quit date: 02/18/1969 Years since quittin.4 Smokeless tobacco: Never Tobacco comments: Pt smoked 1-2 cigarettes daily x 1-2 years. Vaping Use Vaping Use: Never used Substance Use Topics Alcohol use: No Drug use: No Current Outpatient Medications Medication Sig ascorbic acid (VITAMIN C ORAL) Take by mouth. ferrous sulfate (IRON ORAL) Take by mouth. lisinopril 2.5 mg tablet rivaroxaban (XARELTO) 10 mg tablet Take by mouth. pioglitazone (ACTOS) 30 mg tablet carvedilol (more content not included)... [facility] 07-04-2022 Note HNO ID: [id number] Author: Joyce Lilly Service: ? Author Type: ? Type: Progress Notes Filed: 07/04/2022 12:13 PM Note Text: Annette Combs is identified through a medication adherence outreach initiative based on pharmacy claims data from [employer] (insurer) for Statin medication(s). Patient is reviewed 07/04/22 due to medication adherence concerns with the following medications (name, strength, sig): Atorvastatin 40mg every day . Per data/report, last fill date and days supply: Due 05/29/22 Per reconcile dispense, last fill date and days supply: No info Per call to pharmacy, last picked up date and days supply: Filled 02/28/22 for 90 days-No RFs Contacted patient: MyChart Any need for new prescription (I.e. out of refills on most recent prescription) YES/NO/Active: yes Outcome of review/outreach: (choose outcome source and status) - No RFs remaining, sees outside provider unable to request RF. [employer] message reminder. Joyce Lilly [facility] 07-04-2022 Note Patient Outreach ( PO) ANNETTE COMBS ([id number]) 1950 F Date Time Provider Department 07/04/22 KODY ERAZO CHI During your visit today, we recorded the following information about you: Joyce Lilly 07/04/2022 12:13 PM Signed Annette Combs is identified through a medication adherence outreach initiative based on pharmacy claims data from [employer] (insurer) for Statin medication(s). Patient is reviewed 07/04/22 due to medication adherence concerns with the following medications (name, strength, sig): Atorvastatin 40mg every day . Per data/report, last fill date and days supply: Due 05/29/22 Per reconcile dispense, last fill date and days supply: No info Per call to pharmacy, last picked up date and days supply: Filled 02/28/22 for 90 days-No RFs Contacted patient: MyChart Any need for new prescription (I.e. out of refills on most recent prescription) YES/NO/Active: yes Outcome of review/outreach: (choose outcome source and status) - No RFs remaining, sees outside provider unable to request RF. [employer] message reminder. Joyce Lilly Allergies As of Date: 07/04/2022 Noted Allergy Reaction CHLORHEXIDINE 05/21/2013 9 - [...] eyes become red and headache Date Reviewed: 04/16/2022 Reviewed by: Argelia Thomson MD - Fully Assessed Reason for Visit: Allied Health Visit [5] Cmt: Medication Adherence Outreach Prescriptions as of 07/04/2022 - lisinopril 2.5 mg tablet - rivaroxaban (XARELTO) 10 mg tablet Take by mouth. - pioglitazone (ACTOS) 30 mg tablet - carvedilol (COREG) 3.125 mg tablet - famotidine (PEPCID) 40 mg tablet - Estradiol (VAGIFEM) 10 mcg vaginal tablet Use 1 tablet vaginally every Saturday and Saturday. - Benzonatate 200 mg capsule Take 1 capsule by mouth three times daily as needed. - cetirizine (ZYRTEC) 10 mg tablet Take 1 tablet by mouth once daily. - lidocaine 5 % gel Apply to affected area three times daily as needed. - fluticasone-salmeterol (ADVAIR DISKUS) 100-50 mcg/dose inhaler Inhale 1 Puff as instructed twice daily. Finishing her supply. - atorvastatin (LIPITOR) 40 mg tablet Take 1 tablet by mouth daily at bedtime. For cholesterol. - fluticasone (FLONASE) 50 mcg/actuation nasal spray Use 2 Sprays in each nostril once daily. Rinse mouth after use. - warfarin (COUMADIN) 5 mg tablet 7.5 mg on Saturday and and 5 mg all other days of the week, AND DIRECTED - omeprazole (PRILOSEC) 20 mg capsule TAKE ONE CAPSULE BY MOUTH DAILY 1/2 HOUR BEFORE BREAKFAST - metFORMIN (GLUCOPHAGE) 500 mg tablet Take 1 tablet by mouth daily with breakfast. - Nebulizer Accessories misc Use with nebulizer every 4 hours as needed for wheezing and shortness of breath Pt would like mask for use with nebulizer. - albuterol (PROVENTIL) 2.5 mg /3 mL (0.083 %) nebulizer solution Use 3 mL via nebulizer every 4 hours as needed for wheezing/shortness of breath. Use over 5-15minutes. - albuterol HFA (PROVENTIL HFA) 90 mcg/actuation inhaler Inhale 2 Puffs as instructed every 4 hours as needed for wheezing/shortness of breath. MAY GIVE AVAILABLE EQUIVALENT ALBUTEROL HFA INHALER - blood sugar diagnostic (TRUE METRIX GLUCOSE TEST STRIP) test strip Test 2 times daily Dx: E11.8 Insulin: No - ferrous sulfate (IRON) 325 mg (65 mg iron) tablet Take 1 tablet by mouth twice daily. - Nebulizer NEBULIZER FOR HOME USE. DX: Asthma. Use as directed. - traMADol (ULTRAM) 50 mg tablet Take 1 tablet by mouth three times daily as needed for Pain. Per Dr. Cristy Roman, pain management. - Blood-Glucose Meter (TRUE METRIX GLUCOSE METER) misc Use daily as directed. Dx: E11.8 Insulin: No - gabapentin (NEURONTIN) 800 mg tablet Take 1 tablet by mouth three times daily. - Lancets lancets Test blood sugar(s) 2 times daily. Dx: Type 2 DM - Uncontrolled E11.9 Insulin: No - ASCORBIC ACID/BIOFLAVONOIDS (MELANIE C ORAL) Take 1 tablet by mouth twice daily. - oxybutynin XL (DITROPAN XL) 10 mg 24 hr tablet Take 1 tablet by mouth once daily. - Calcium-Cholecalciferol, D3, 500 mg-3.125 mcg (125 unit) tab Take two(2) tablets twice daily. - Aurora-3 Fatty Acids-Vitamin E 1,000 mg cap Take 3 pills once daily (?dose) - THERAPEUTIC MULTIVITAMIN ORAL TAB Take one(1) tablet daily. Meds Comments as of 01/12/2013: Problem List As Of Date 07/04/2022 Noted Resolved Unspecified tinnitus [H93.19] 03/11/2012 Allergic rhinitis [J30.9] GENERAL OSTEOAR (more content not included)... [facility] 07-04-2022 History of Presen t illness Narrative Annette Combs is identified through a medication adherence outreach initiative based on pharmacy claims data from [employer] (insurer) for Statin medication(s). Patient is reviewed 07/04/22 due to medication adherence concerns with the following medications (name, strength, sig): Atorvastatin 40mg every day . Per data/report, last fill date and days supply: Due 05/29/22 Per reconcile dispense, last fill date and days supply: No info Per call to pharmacy, last picked up date and days supply: Filled 02/28/22 for 90 days-No RFs Contacted patient: MyChart Any need for new prescription (I.e. out of refills on most recent prescription) YES/NO/Active: yes Outcome of review/outreach: (choose outcome source and status) - No RFs remaining, sees outside provider unable to request RF. [employer] message reminder. Joyce Lilly documented in this encounter [facility] 04-16-2022 Note HNO ID: [id number] Author: Argelia Thomson MD Service: ? Author Type: Physician Type: Progress Notes Filed: 04/16/2022 9:50 AM Note Text: Annette Combs is a 71 year old female who presents for problem visit. HPI: Patient presents for med refill. She is doing well on the vagifem and wishes to continue. 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 History Comments: Sexual Activity: Not Currently; Male; tubal ligation prior to hysterectomy Contraception: Surgical PAST MEDICAL HISTORY Diagnosis Date Acute, but ill-defined, cerebrovascular disease 1989 Allergic rhinitis, cause unspecified Allergic rhinitis Anal and rectal polyp FIBROPLASTIC Anemia, unspecified Atrial flutter, paroxysmal (HCC) 03/14/2018 CKD (chronic kidney disease) stage 3, GFR 30-59 ml/min (HCC) 07/12/2017 Cognitive impairment 04/10/2017 Colitis, collagenous 09/03/2011 Degenerative joint disease of right knee 10/19/2010 Degenerative lumbar spinal stenosis Generalized osteoarthrosis, unspecified site KNEE JOINT REPLACEMENT STATUS 09/02/2006 Left foot drop 01/05/2011 Lichen Simplex Chronicus (LSC) 04/24/2013 Lung nodule 10/20/2010 Mixed incontinence 10/28/2014 Dr. Almendarez Nontraumatic rupture of patellar tendon 07/2007 sugical repair 07/29/[address] Devries Other and unspecified hyperlipidemia 06/20/2012 Other pulmonary embolism and infarction 10/30/2006 Postlaminectomy syndrome 02/01/2016 Postmenopausal atrophic vaginitis 06/27/2016 Scoliosis Xray from [facility] 08/03/11 showed; also has narrowing L3-L4 and L4- L5; DJD L3, L4, L5; slight anterior displacement L4 on L5. Symptomatic menopausal or female climacteric states Unspecified asthma(493.90) Unspecified hemorrhoids without mention of complication Hemorrhoids Urge incontinence 02/01/2005 VENOUS THROMBOSIS LOWER EXTREMITY NOS 10/30/2006 Post op left knee arthroscopy; ?PE at that time PAST SURGICAL HISTORY Procedure Laterality Date ARTHROSCOPY KNEE DIAGNOSTIC W/WO SYNOVIAL BX SPX Left 05/10/2003 Arthroscopy, knee Left ARTHRP KNE CONDYLEANDPLATU MEDIALANDLAT COMPARTMENTS Right 2008 right knee replacement DELIVERY ONLY 1988 , low cervical COLONOSCOPY 03/25/01 R Cebul - hyperplastic polyp COLONOSCOPY 04/20/2019 COLONOSCOPY FLX DX W/COLLJ SPEC WHEN PFRMD 08/05/2018 Colonoscopy [facility] (Notes Tab) COLONOSCOPY W/BIOPSY SINGLE/MULTIPLE 05/17/11 repeat EGD TRANSORAL BIOPSY SINGLE/MULTIPLE 05/17/11 FILTER PLACEMENT (VENA CAVA) 11-03-12 HEMORRHOIDECTOMY NTRNL AND XTRNL 1 COLUMN/GROUP 03/27/01 HIP SURGERY HX Right 06/11/2018 LAMINECTOMY W/O FFD /2 VERT SEG LUMBAR 11/05/2012 Laminectomy, lumbar LAMINECTOMY,LUMBAR 1994 Back surgery LAPS ABD PRTMANDOMENTUM DX W/WO SPEC BR/WA SPX 1999 Laparoscopy LIG/TRNSXJ FLP TUBE ABDL/VAG APPR UNI/BI 1988 Tubal ligation OPTX ANKLE DISLOCATION W/REPAIR/INT/XTRNL FIXJ 1987 ORIF Ankle PAST SURGICAL HISTORY OF 2004 Thumb bilateral PAST SURGICAL HISTORY OF Left 07/2006 partial knee replacement left PAST SURGICAL HISTORY OF Right 2008 repair knee cap PAST SURGICAL HISTORY OF 03/26/2014 transurethral resection of bladder lesion. vaginal sling. Dr. Almendarez RETRIEV INTRAVASC FOREGN BODY 01/30/13 filter removal SALPINGO-OOPHORECTOMY COMPL/PRTL UNI/BI SPX 1999 Salpingo-oophorectomy bilateral TOTAL ABDOMINAL HYSTERECT W/WO RMVL TUBE OVARY 1999 AANDP REPAIR hyst for benign reason TOTAL HIP JOINT REPLACEMENT Right 08/30/[address] Blevins FAMILY HISTORY Problem Relation Age of Onset Blood Disease Mother blood clot, coumadin Hypertension Mother Coronary Artery Disease Mother 84 Cancer Father poss bladder Prostate Cancer Father Breast Cancer Sister 64 None Sister None Sister Diabetes Paternal Grandmother Colon Cancer Paternal Grandmother Stroke Paternal Grandfather Diabetes Paternal Grandfather Cancer Maternal Grandfather LEUKEMIA Cancer Maternal Uncle Psychiatry Sister anxiety Social History Tobacco Use Smoking status: Former Types: Cigarettes Quit date: 02/18/1969 Years since quittin.1 Smokeless tobacco: Never Tobacco comments: Pt smoked 1-2 cigarettes daily x 1-2 years. Vaping Use Vaping Use: Never used Substance Use Topics Alcohol use: No Comment: rarely Drug use: No Current Outpatient Medications Medication Sig rivaroxaban (XARELTO) 10 mg tablet Take by mouth. pioglitazone (ACTOS) 30 mg tablet Benzonatate 200 mg capsule Take 1 capsule by mouth three times daily as needed. cetirizine (ZYRTEC) 10 mg tablet Take 1 tablet by mouth once daily. lidocaine 5 % gel Apply to affected area three times daily as needed. fluticasone-salmeterol (ADVAIR DISKUS) 100-50 mcg/dose inhaler Inhale 1 Puff as instructed twice daily. Finishing h (more content not included)... [facility] 04-16-2022 History of Presen t illness Narrative Annette Combs is a 71 year old female who presents for problem visit. HPI: Patient presents for med refill. She is doing well on the vagifem and wishes to continue. 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 History Comments: Sexual Activity: Not Currently; Male; tubal ligation prior to hysterectomy Contraception: Surgical PAST MEDICAL HISTORY Diagnosis Date Acute, but ill-defined, cerebrovascular disease 1989 Allergic rhinitis, cause unspecified Allergic rhinitis Anal and rectal polyp FIBROPLASTIC Anemia, unspecified Atrial flutter, paroxysmal ([facility]) 03/14/2018 CKD (chronic kidney disease) stage 3, GFR 30-59 ml/min ([facility]) 07/12/2017 Cognitive impairment 04/10/2017 Colitis, collagenous 09/03/2011 Degenerative joint disease of right knee 10/19/2010 Degenerative lumbar spinal stenosis Generalized osteoarthrosis, unspecified site KNEE JOINT REPLACEMENT STATUS 09/02/2006 Left foot drop 01/05/2011 Lichen Simplex Chronicus (LSC) 04/24/2013 Lung nodule 10/20/2010 Mixed incontinence 10/28/2014 Dr. Almendarez Nontraumatic rupture of patellar tendon 07/2007 sugical repair 07/29/[address] Devries Other and unspecified hyperlipidemia 06/20/2012 Other pulmonary embolism and infarction 10/30/2006 Postlaminectomy syndrome 02/01/2016 Postmenopausal atrophic vaginitis 06/27/2016 Scoliosis Xray from [facility] 08/03/11 showed; also has narrowing L3-L4 and L4- L5; DJD L3, L4, L5; slight anterior displacement L4 on L5. Symptomatic menopausal or female climacteric states Unspecified asthma(493.90) Unspecified hemorrhoids without mention of complication Hemorrhoids Urge incontinence 02/01/2005 VENOUS THROMBOSIS LOWER EXTREMITY NOS 10/30/2006 Post op left knee arthroscopy; ?PE at that time PAST SURGICAL HISTORY Procedure Laterality Date ARTHROSCOPY KNEE DIAGNOSTIC W/WO SYNOVIAL BX SPX Left 05/10/2003 Arthroscopy, knee Left ARTHRP KNE CONDYLE&PLATU MEDIAL&LAT COMPARTMENTS Right 2008 right knee replacement DELIVERY ONLY 1988 , low cervical COLONOSCOPY 03/25/01 R Cebul - hyperplastic polyp COLONOSCOPY 04/20/2019 COLONOSCOPY FLX DX W/COLLJ SPEC WHEN PFRMD 08/05/2018 Colonoscopy [facility] (Notes Tab) COLONOSCOPY W/BIOPSY SINGLE/MULTIPLE 05/17/11 repeat EGD TRANSORAL BIOPSY SINGLE/MULTIPLE 05/17/11 FILTER PLACEMENT (VENA CAVA) 11-03-12 HEMORRHOIDECTOMY NTRNL & XTRNL 1 COLUMN/GROUP 03/27/01 HIP SURGERY HX Right 06/11/2018 LAMINECTOMY W/O FFD 1/2 VERT SEG LUMBAR 11/05/2012 Laminectomy, lumbar LAMINECTOMY,LUMBAR 1994 Back surgery LAPS ABD PRTM&OMENTUM DX W/WO SPEC BR/WA SPX 1999 Laparoscopy LIG/TRNSXJ FLP TUBE ABDL/VAG APPR UNI/BI 1988 Tubal ligation OPTX ANKLE DISLOCATION W/REPAIR/INT/XTRNL FIXJ 1987 ORIF Ankle PAST SURGICAL HISTORY OF 2004 Thumb bilateral PAST SURGICAL HISTORY OF Left 07/2006 partial knee replacement left PAST SURGICAL HISTORY OF Right 2008 repair knee cap PAST SURGICAL HISTORY OF 03/26/2014 transurethral resection of bladder lesion. vaginal sling. Dr. Almendarez RETRIEV INTRAVASC FOREGN BODY 01/30/13 filter removal SALPINGO-OOPHORECTOMY COMPL/PRTL UNI/BI SPX 1999 Salpingo-oophorectomy bilateral TOTAL ABDOMINAL HYSTERECT W/WO RMVL TUBE OVARY 1999 A&P REPAIR hyst for benign reason TOTAL HIP JOINT REPLACEMENT Right 08/30/[address] Blevins FAMILY HISTORY Problem Relation Age of Onset Blood Disease Mother blood clot, coumadin Hypertension Mother Coronary Artery Disease Mother 84 Cancer Father poss bladder Prostate Cancer Father Breast Cancer Sister 64 None Sister None Sister Diabetes Paternal Grandmother Colon Cancer Paternal Grandmother Stroke Paternal Grandfather Diabetes Paternal Grandfather Cancer Maternal Grandfather LEUKEMIA Cancer Maternal Uncle Psychiatry Sister anxiety Social History Tobacco Use Smoking status: Former Types: Cigarettes Quit date: 02/18/1969 Years since quittin.1 Smokeless tobacco: Never Tobacco comments: Pt smoked 1-2 cigarettes daily x 1-2 years. Vaping Use Vaping Use: Never used Substance Use Topics Alcohol use: No Comment: rarely Drug use: No Current Outpatient Medications Medication Sig rivaroxaban (XARELTO) 10 mg tablet Take by mouth. pioglitazone (ACTOS) 30 mg tablet Benzonatate 200 mg capsule Take 1 capsule by mouth three times daily as needed. cetirizine (ZYRTEC) 10 mg tablet Take 1 tablet by mouth once daily. lidocaine 5 % gel Apply to affected area three times daily as needed. fluticasone-salmeterol (ADVAIR DISKUS) 100-50 mcg/dose inhaler Inhale 1 Puff as instructed twice daily. Finishing her supply. Estradiol (VAGIFEM) 10 mcg vaginal tablet Use 1 tablet vaginally every Saturday and Saturday. atorvastatin (LIPITOR) 40 mg tablet Take 1 tablet by mouth daily at bedtime. For cholesterol. fluticasone (FLONASE) 50 mcg/actuation nasal spray Use 2 Sprays in each nostril once daily. Rinse mouth after use. omeprazole (PRILOSEC) 20 mg capsule TAKE ONE CAPSULE BY MOUTH DAILY 1/2 HOUR BEFORE BREAKFAST metFORMIN (GLUCOPHAGE) 500 mg tablet Take 1 tablet by mouth daily with breakfast. Nebulizer Accessories misc Use with nebulizer every 4 hours as needed for wheezing and shortness of breath Pt would like mask for use with nebulizer. albuterol HFA (PROVENTIL HFA) 90 mcg/actuation inhaler Inhale 2 Puffs as instructed every 4 hours as needed for wheezing/shortness of breath. MAY GIVE AVAILABLE EQUIVALENT ALBUTEROL HFA INHALER blood sugar diagnostic (TRUE METRIX GLUCOSE TEST STRIP) test strip Test 2 times daily Dx: E11.8 Insulin: No ferrous sulfate (IRON) 325 mg (65 mg iron) tablet Take 1 tablet by mouth twice daily. Nebulizer NEBULIZER FOR HOME USE. DX: Asthma. Use as directed. traMADol (ULTRAM) 50 mg tablet Take 1 tablet by mouth three times daily as needed for Pain. Per Dr. Cristy Roman, pain management. Blood-Glucose Meter (TRUE METRIX GLUCOSE METER) misc Use daily as directed. Dx: E11.8 Insulin: No gabapentin (NEURONTIN) 800 mg tablet Take 1 tablet by mouth three times daily. Lancets lancets Test blood sugar(s) 2 times daily. Dx: Type 2 DM - Uncontrolled E11.9 Insulin: No ASCORBIC ACID/BIOFLAVONOIDS (MELANIE C ORAL) Take 1 tablet by mouth twice daily. oxybutynin XL (DITROPAN XL) 10 mg 24 hr tablet Take 1 tablet by mouth once daily. Calcium-Cholecalciferol, D3, 500 mg-3.125 mcg (125 unit) tab Take two(2) tablets twice daily. Aurora-3 Fatty Acids-Vitamin E 1,000 mg cap Take 3 pills once daily (?dose) THERAPEUTIC MULTIVITAMIN ORAL TAB Take one(1) tablet daily. lisinopril 2.5 mg tablet carvedilol (COREG) 3.125 mg tablet famotidine (PEPCID) 40 mg tablet warfarin (COUMADIN) 5 mg tablet 7.5 mg on Saturday and and 5 mg all other days of the week, AND DIRECTED (Patient not taking: Reported on 04/16/2022) albuterol (PROVENTIL) 2.5 mg /3 mL (0.083 %) nebulizer solution Use 3 mL via nebulizer every 4 hours as needed for wheezing/shortness of breath. Use over 5-15minutes. No current facility-administered medications for this visit. Allergies As of Date: 04/16/2022 Allergen Noted Reaction CHLORHEXIDINE 05/21/2013 Itching COTTON 10/12/2004 Other: See Comments DARVON [PROPOXYPHENE HCL] 04/20/2008 Mental Status Change FEATHERS 10/12/2004 Other: See Comments GRASS POLLEN 10/08/2012 Itching MORPHINE 04/20/2008 Mental Status Change VINEGAR 10/12/2004 Other: See Comments WOOL 10/12/2004 Other: See Comments Fully Assessed 04/16/2022 Allergies and current medication updated:Yes EXAM: There were no vitals taken for this visit. GENERAL: pleasant, female in no apparent distress PELVIC: patient declines ASSESSMENT AND PLAN: 71yo female with atrophic vaginitis Continue vagifem & med refilled Mammogram ordered and patient declines scheduling at this time Argelia Thomson MD documented in this encounter [facility] 04-03-2022 Note HNO ID: [id number] Author: Vaishali Barnes-T Service: ? Author Type: ? Type: Progress Notes Filed: 04/03/2022 2:07 PM Note Text: Annette Combs is identified through a medication adherence outreach initiative based on pharmacy claims data from [employer] (insurer) for Statin medication(s). Patient is reviewed 04/03/22 due to medication adherence concerns with the following medications (name, strength, sig): Lipitor 40 mg 1 tablet daily. Per data/report, last fill date and days supply: NA Per reconcile dispense, last fill date and days supply: 02/28/2022 for 90 days Per call to pharmacy, last picked up date and days supply: NA Outcome of review/outreach: (choose outcome source and status) - Filled later than 7 days after Next fill date per reconcile dispense Vaishali Godfrey Pharm-T [facility] 04-03-2022 Note O ID: [id number] Author: Vaishali Godfrey Pharm-T Service: ? Author Type: ? Type: Progress Notes Filed: 04/03/2022 2:05 PM Note Text: Annette Combs is identified through a medication adherence outreach initiative based on pharmacy claims data from [employer] (insurer) for Non-insulin DM medication(s). Patient is reviewed 04/03/22 due to medication adherence concerns with the following medications (name, strength, sig): Metformin 500 mg 1 tablet daily. Per data/report, last fill date and days supply: NA Per reconcile dispense, last fill date and days supply: 02/28/2022 for 90 days Per call to pharmacy, last picked up date and days supply: NA Outcome of review/outreach: (choose outcome source and status) - Filled before Next fill date per reconcile dispense Vaishali Godfrey Pharm-T [facility] 04-03-2022 Note Patient Outreach ( POBRUNILDA) LAURYNANNETTE Marrufo ([id number]) 1950 F Date Time Provider Department 04/03/22 KODY ERAZO [facility] During your visit today, we recorded the following information about you: Vaishali Marcel Godfrey Pharm-T 04/03/2022 2:05 PM Signed Annette Combs is identified through a medication adherence outreach initiative based on pharmacy claims data from [employer] (insurer) for Non-insulin DM medication(s). Patient is reviewed 04/03/22 due to medication adherence concerns with the following medications (name, strength, sig): Metformin 500 mg 1 tablet daily. Per data/report, last fill date and days supply: NA Per reconcile dispense, last fill date and days supply: 02/28/2022 for 90 days Per call to pharmacy, last picked up date and days supply: NA Outcome of review/outreach: (choose outcome source and status) - Filled before Next fill date per reconcile dispense Vaishalilydia Ramirezelli Pharm-T Vaishali Rod Jameselli Pharm-T 04/03/2022 2:07 PM Addendum Annette Cobms is identified through a medication adherence outreach initiative based on pharmacy claims data from [employer] (insurer) for Statin medication(s). Patient is reviewed 04/03/22 due to medication adherence concerns with the following medications (name, strength, sig): Lipitor 40 mg 1 tablet daily. Per data/report, last fill date and days supply: NA Per reconcile dispense, last fill date and days supply: 02/28/2022 for 90 days Per call to pharmacy, last picked up date and days supply: NA Outcome of review/outreach: (choose outcome source and status) - Filled later than 7 days after Next fill date per reconcile dispense Vaishali Marcel Ramirezelli Pharm-T Allergies As of Date: 04/03/2022 Noted Allergy Reaction CHLORHEXIDINE 05/21/2013 9 - [...] eyes become red and headache Date Reviewed: 05/31/2021 Reviewed by: Michelle Quiroga MA - Fully Assessed Reason for Visit: Allied Health Visit [5] Cmt: Medication Adherence Outreach Prescriptions as of 04/03/2022 - Benzonatate 200 mg capsule Take 1 capsule by mouth three times daily as needed. - cetirizine (ZYRTEC) 10 mg tablet Take 1 tablet by mouth once daily. - lidocaine 5 % gel Apply to affected area three times daily as needed. - fluticasone-salmeterol (ADVAIR DISKUS) 100-50 mcg/dose inhaler Inhale 1 Puff as instructed twice daily. Finishing her supply. - Estradiol (VAGIFEM) 10 mcg vaginal tablet Use 1 tablet vaginally every Saturday and Saturday. - atorvastatin (LIPITOR) 40 mg tablet Take 1 tablet by mouth daily at bedtime. For cholesterol. - fluticasone (FLONASE) 50 mcg/actuation nasal spray Use 2 Sprays in each nostril once daily. Rinse mouth after use. - warfarin (COUMADIN) 5 mg tablet 7.5 mg on Saturday and and 5 mg all other days of the week, AND DIRECTED - omeprazole (PRILOSEC) 20 mg capsule TAKE ONE CAPSULE BY MOUTH DAILY 1/2 HOUR BEFORE BREAKFAST - metFORMIN (GLUCOPHAGE) 500 mg tablet Take 1 tablet by mouth daily with breakfast. - Nebulizer Accessories misc Use with nebulizer every 4 hours as needed for wheezing and shortness of breath Pt would like mask for use with nebulizer. - albuterol (PROVENTIL) 2.5 mg /3 mL (0.083 %) nebulizer solution Use 3 mL via nebulizer every 4 hours as needed for wheezing/shortness of breath. Use over 5-15minutes. - albuterol HFA (PROVENTIL HFA) 90 mcg/actuation inhaler Inhale 2 Puffs as instructed every 4 hours as needed for wheezing/shortness of breath. MAY GIVE AVAILABLE EQUIVALENT ALBUTEROL HFA INHALER - blood sugar diagnostic (TRUE METRIX GLUCOSE TEST STRIP) test strip Test 2 times daily Dx: E11.8 Insulin: No - ferrous sulfate (IRON) 325 mg (65 mg iron) tablet Take 1 tablet by mouth twice daily. - Nebulizer NEBULIZER FOR HOME USE. DX: Asthma. Use as directed. - traMADol (ULTRAM) 50 mg tablet Take 1 tablet by mouth three times daily as needed for Pain. Per Dr. Cristy Roman, pain management. - Blood-Glucose Meter (TRUE METRIX GLUCOSE METER) [facility] [place] Use daily as directed. Dx: E11.8 Insulin: No - gabapentin (NEURONTIN) 800 mg tablet Take 1 tablet by mouth three times daily. - Lancets lancets Test blood sugar(s) 2 times daily. Dx: Type 2 DM - Uncontrolled E11.9 Insulin: No - ASCORBIC ACID/BIOFLAVONOIDS (MELANIE C ORAL) Take 1 tablet by mouth twice daily. - oxybutynin XL (DITROPAN XL) 10 mg 24 hr tablet Take 1 tablet by mouth once daily. - Calcium-Cholecalciferol, D3, (CALCIUM 500 + (more content not included)... [facility] 03-07-2022 Note Patient Outreach (SALUD TRAVIS) ANNETTE COMBS ([id number]) 1950 F Date Time Provider Department 03/07/22 RHONA KELSEY During your visit today, we recorded the following information about you: Rhona Kelsey MA 03/07/2022 9:58 AM Signed POPULATION HEALTH NAVIGATION OUTREACH Action/FYI March 07, 2022 [place] [facility] Diagnosis with HCC gap left: I82.5Y3 - Chronic deep vein thrombosis (DVT) of proximal vein of both lower extremities (HCC) - [id number] Last Billed 12/09/2020 E11.22 - Type 2 diabetes mellitus with stage 3 chronic kidney disease, without long-term current use of insulin (HCC) - [id number] Last Billed 03/02/2021 I48.92 - Atrial flutter, paroxysmal (HCC) - [id number] Last Billed 05/09/2020 Care Gaps/ Scheduling needs Annual exam Mammogram ABIEL A1c Urine albumin Flu shot Outcome/action Lm on Mychart sent Rhona Kelsey MA Pt identified by name and : NO Outreach Outcome/Action Unable to reach patient: Left message Outsparkt message sent Did you use a PCP flex slot to schedule this appointment? N/A Reason for Outreach HCC or suspected condition Payer: Payor: KATEY Iencuentra AND Webs / Plan: KATEY [employer] HMO / Product Type: HMO / Care Gap Reviewed:: Annual Wellness visit Breast Cancer screening Diabetic Eye Exam HBA1C Nephropathy (Albumin/Creatinine) Urine Flu Vaccine Reminder: Reminder note to check Health Maintenance for items below Health Maintenance items due: URINE ALBUMIN:CREATININE RATIO due on 11/08/2020 SERUM CREATININE due on 11/08/2020 HEMOGLOBIN/HEMATOCRIT due on 11/08/2020 HBA1C due on 11/09/2020 MAMMOGRAM due on 04/11/2021 LDL CHOLESTEROL due on 06/23/2021 COVID-19 VACCINE(5 - Booster for Pfizer series) due on 07/14/2021 INFLUENZA(1) due on 10/19/2021 DIABETIC FOOT EXAM due on 12/09/2021 DILATED RETINAL EXAM due on 01/18/2022 ADVANCE DIRECTIVE DISCUSSION Never done DEPRESSION ASSESSMENT Never done ANNUAL PCP TEAM CHRONIC DISEASE VISIT due on 03/02/2022 Navigation Signature: Rhona Kelsey MA March 07, 2022 9:56 AM Allergies As of Date: 03/07/2022 Noted Allergy Reaction CHLORHEXIDINE 05/21/2013 9 - [...] eyes become red and headache Date Reviewed: 05/31/2021 Reviewed by: Michelle Quiroga MA - Fully Assessed Reason for Visit: Population Health Navigation Outreach [[id number]] Cmt: Katey [facility] Prescriptions as of 03/07/2022 - Benzonatate 200 mg capsule Take 1 capsule by mouth three times daily as needed. - cetirizine (ZYRTEC) 10 mg tablet Take 1 tablet by mouth once daily. - lidocaine 5 % gel Apply to affected area three times daily as needed. - fluticasone-salmeterol (ADVAIR DISKUS) 100-50 mcg/dose inhaler Inhale 1 Puff as instructed twice daily. Finishing her supply. - Estradiol (VAGIFEM) 10 mcg vaginal tablet Use 1 tablet vaginally every Saturday and Saturday. - atorvastatin (LIPITOR) 40 mg tablet Take 1 tablet by mouth daily at bedtime. For cholesterol. - fluticasone (FLONASE) 50 mcg/actuation nasal spray Use 2 Sprays in each nostril once daily. Rinse mouth after use. - warfarin (COUMADIN) 5 mg tablet 7.5 mg on Saturday and and 5 mg all other days of the week, AND DIRECTED - omeprazole (PRILOSEC) 20 mg capsule TAKE ONE CAPSULE BY MOUTH DAILY 1/2 HOUR BEFORE BREAKFAST - metFORMIN (GLUCOPHAGE) 500 mg tablet Take 1 tablet by mouth daily with breakfast. - Nebulizer Accessories misc Use with nebulizer every 4 hours as needed for wheezing and shortness of breath Pt would like mask for use with nebulizer. - albuterol (PROVENTIL) 2.5 mg /3 mL (0.083 %) nebulizer solution Use 3 mL via nebulizer every 4 hours as needed for wheezing/shortness of breath. Use over 5-15minutes. - albuterol HFA (PROVENTIL HFA) 90 mcg/actuation inhaler Inhale 2 Puffs as instructed every 4 hours as needed for wheezing/shortness of breath. MAY GIVE AVAILABLE EQUIVALENT ALBUTEROL HFA INHALER - blood sugar diagnostic (TRUE METRIX GLUCOSE TEST STRIP) test strip Test 2 times daily Dx: E11.8 Insulin: No - ferrous sulfate (IRON) 325 mg (65 mg iron) tablet Take 1 tablet by mouth twice daily. - Nebulizer NEBULIZER FOR HOME USE. DX: Asthma. Use as directed. - traMADol (ULTRAM) 50 mg tablet Take 1 tablet by mouth three times daily as needed for Pain. Per Dr. Cristy Roman, pain management. - Blood-Glucose Meter (TRUE METRIX GLUCOSE METER) misc Use daily as dire (more content not included)... [facility] 03-07-2022 Note HNO ID: [id number] Author: Rhona Kelsey MA Service: ? Author Type: Web Content Executive Type: Progress Notes Filed: 03/07/2022 9:58 AM Note Text: POPULATION HEALTH NAVIGATION OUTREACH Action/March 07, 2022 [place] [facility] Diagnosis with HCC gap left: I82.5Y3 - Chronic deep vein thrombosis (DVT) of proximal vein of both lower extremities (HCC) - [id number] Last Billed 12/09/2020 E11.22 - Type 2 diabetes mellitus with stage 3 chronic kidney disease, without long-term current use of insulin (HCC) - [id number] Last Billed 03/02/2021 I48.92 - Atrial flutter, paroxysmal (HCC) - [id number] Last Billed 05/09/2020 Care Gaps/ Scheduling needs Annual exam Mammogram ABIEL A1c Urine albumin Flu shot Outcome/action Lm on Vm Mychart sent Rhona Kelsey MA Pt identified by name and : NO Outreach Outcome/Action Unable to reach patient: Left message MyChart message sent Did you use a PCP flex slot to schedule this appointment? N/A Reason for Outreach HCC or suspected condition Payer: Payor: [employer] / Plan: [employer] HMO / Product Type: HMO / Care Gap Reviewed:: Annual Wellness visit Breast Cancer screening Diabetic Eye Exam HBA1C Nephropathy (Albumin/Creatinine) Urine Flu Vaccine Reminder: Reminder note to check Health Maintenance for items below Health Maintenance items due: URINE ALBUMIN:CREATININE RATIO due on 11/08/2020 SERUM CREATININE due on 11/08/2020 HEMOGLOBIN/HEMATOCRIT due on 11/08/2020 HBA1C due on 11/09/2020 MAMMOGRAM due on 04/11/2021 LDL CHOLESTEROL due on 06/23/2021 COVID-19 VACCINE(5 - Booster for Pfizer series) due on 07/14/2021 INFLUENZA(1) due on 10/19/2021 DIABETIC FOOT EXAM due on 12/09/2021 DILATED RETINAL EXAM due on 01/18/2022 ADVANCE DIRECTIVE DISCUSSION Never done DEPRESSION ASSESSMENT Never done ANNUAL PCP TEAM CHRONIC DISEASE VISIT due on 03/02/2022 Navigation Signature: Rhona Kelsey MA March 07, 2022 9:56 AM [facility] 10-30-2021 Miscellaneous Notes 2nd message left for patient to return phone call Left message to call office. Patient is scheduled for appointment on 11/07 for blood in urine. Please triage patient and offer sooner appointment if needed. Amaya Turner RN documented in this encounter [facility] 09-25-2021 History of Presen t illness Narrative POPULATION HEALTH NAVIGATION OUTREACH Action/I Called patient to schedule annual wellness visit and care gaps. Pt identified by name and : NO Outreach Outcome/Action Unable to reach patient: Left message [email or web address] message sent Did you use a PCP flex slot to schedule this appointment? N/A Reason for Outreach HCC or suspected condition Payer: Payor: KATEY [employer] / Plan: [employer] HMO / Product Type: HMO / Care Gap Reviewed:: Annual Wellness visit Breast Cancer screening Diabetic Eye Exam HBA1C Nephropathy (Albumin/Creatinine) Urine Reminder: Reminder note to check Health Maintenance for items below Health Maintenance items due: URINE ALBUMIN:CREATININE RATIO due on 11/08/2020 SERUM CREATININE due on 11/08/2020 HEMOGLOBIN/HEMATOCRIT due on 11/08/2020 HBA1C due on 11/09/2020 ADVANCE DIRECTIVE DISCUSSION Never done MAMMOGRAM due on 04/11/2021 LDL CHOLESTEROL due on 06/23/2021 Message Sent to Practice: No Raegan Amado [facility]igator September 25, 2021 2:32 PM Electronically signed by Raegan Amado [facility] at 09/25/2021 2:33 PM EDT documented in this encounter [facility] 06-28-2021 History of Presen t illness Narrative Radiology Service Progress Note PATIENT NAME: Annette Combs DATE OF SERVICE: June 28, 2021 TIME: 10:57 AM PATIENT IDENTITY VERIFICATION COMPLETED USING TWO (2) IDENTIFIERS: Name and Date of confirmed by patient verbally. FALL SCREENING: Has the patient had 2 falls in the last year or 1 fall with injury or currently using an Ambulatory Assistive Device (Walker, Cane, Wheelchair, Crutches, etc.)? No PATIENT GENDER DATA: Female. status: : No status: NO. PATIENT RELEVANT IMPLANT DATA REVIEWED: Not Applicable RADIOLOGY DEPARTMENT: General X-ray: Exam(s) Completed: Spine X-Ray(s): Lumbar AP / LAT / L5-S1 PERIPHERAL IV DATA: Not applicable SIGNED BY: RT Gina(R) June 28, 2021 10:57 AM documented in this encounter [facility] 06-02-2021 Miscellaneous Notes Pt. Was seen & treated in [facility] 05/31. Will close TE at this time. Left message, asked Patient to call in to let office know she pickup ATB. Tamanna Shine LPN TC to patient. No answer. Left message to call back and ask to speak with a nurse. CHA Quick Patient's request for medication is as follows Signed Prescriptions Disp Refills Benzonatate 200 mg capsule 21 capsule 0 Sig: Take 1 capsule by mouth three times daily as needed. ALISON: No Authorizing Provider: BERNARDO GIANG Order entered - please phone pharmacy and notify patient. Bernardo Giang MD Pt called in asking if provider had called in any antibiotic for her. Let Pt know that he had not called anything in and recommended she continue supportive measures and take cough medicine. Pt states she cannot take any cough medicine, it all makes her gag and throw up. Pt reports she is coughing so much it is causing her to gag. Let Pt know she could go back to , or I could schedule her in with one of the Saturday providers. Pt declined. Pt requesting providers office give her a call on Saturday. Left message for patient to return call to office. See other phone encounter. Continue supportive measures like cough medications. Schedule sooner follow up next week if needed. Patient calling to report that she was seen at [facility] on 05/09/21 for cough and bacterial pneumonia. She was prescribed Augmentin and Zithromax. She has completed the medications and stated she continues to cough day and night. She states it is less productive then it was but her cough has not stopped and sometimes makes her gag. Also states she has continued chest tightness. Denies shortness of breath at rest-only minimal SOB with coughing. Reports she has a headache In the posterior of her head. Denies fever, chills, sore throat, vomiting or diarrhea. Reports drinking plenty of fluids. She is asking if Dr. Giang if he could advise her by phone or does he prefer her to make appt? Requesting [facility] in [place]. She also states she takes coumadin and had INR tested yesterday at [facility] and has not been advised on result and coumadin dosage yet. No INR result noted-contacted [facility] this morning and they would not give me result by phone-stated they would have to fax it over. Fax number verified. Please advise patient at [phone] leave a detailed message if she does not answer. Thank you. documented in this encounter [facility] 05-31-2021 Instructions Pia Thomson APRN.[facility] - 05/31/2021 8:59 AM EDT [facility] [address] [place], [place] [address] Emergency Department Diagnosis: Assessment COUGH: Your doctor wants you to have this information about coughing. The body has a cough reflex which helps expel mucous secretions and irritants from the lung and airway passages. Cough spasms are periods of continuous coughing lasting several minutes. Most coughs is caused by virus infections which may last for up to 2-3 weeks. Coughing helps to protect the lung from pneumonia. A persistent cough lasting longer than 4-6 weeks requires medical evaluation by your primary care doctor. Treatment of cough includes measures to loosen the cough and thin the mucous. Warm liquids, cough drops, and nonprescription cough medicine may help reduce dry hacking cough. Use a humidifier if necessary as dry air can make coughs worse. Ultrasonic humidifiers are especially useful as they kill molds and many bacteria. Some cough medicines have antihistamines, decongestants, or alcohol in them; there is no proof that any of these help control cough. Prescription cough medicine or those with dextromethorphan (DM) should be reserved for dry coughs that prevent sleep or cause spasms or chest pain. Avoid any exposure to cigarette smoke as this will worsen the cough or make it last much longer. Call your doctor right away if you or your child have increased breathing difficulty, a high fever, a cough that lasts longer than 3 weeks, or other serious complaints. documented in this encounter [facility] 05-31-2021 History of Presen t illness Narrative CC: Patient presents with: Ear Problem: right ear feels like a furnace is running and has cold symptoms x 1 day HPI: Annette Combs is a 70 year old female who presents to the office with complaint of head congestion and cough, productive for a month. Symptoms are improving Associated symptoms includes cough. Denies fever, nausea, vomiting and diarrhea. Treatments tried include a round of antibiotics that helped but did not completely make symptoms disappear.. with no relief of symptoms. Sick contacts: unknown. History of asthma, frequent episodes of bronchitis, chronic bronchitis, bronchiectasis or COPD: No Smoker: No Seasonal/environmental allergies: No The ROS is otherwise negative. The patient's pmh, medications, allergies, and past visits are reviewed. PHYSICAL EXAM: BP 120/78 Pulse 85 Temp 36.1 C (96.9 F) Resp 21 Wt 77.9 kg (171 lb 12.8 oz) SpO2 97% BMI 31.42 kg/m General appearance: alert, cooperative, pleasant, in no acute distress Head: Normocephalic Eyes: EOM's intact, conjunctiva pink and moist, no icterus, sclera white, non-injected Ears: Right ear: External ear/canal- Normal, TM - clear with good landmarks. Left ear: External ear/canal- Normal, TM - clear with good landmarks Oropharynx:moist without lesions, No erythema, exudates or tonsillar hypertrophy. Heart: Negative. RRR without obvious murmur, gallop, or rubs. No ectopy. Lungs: clear to auscultation, wheezing diffusely PAST MEDICAL HISTORY Diagnosis Date Acute, but ill-defined, cerebrovascular disease 1989 Allergic rhinitis, cause unspecified Allergic rhinitis Anal and rectal polyp FIBROPLASTIC Anemia, unspecified Atrial flutter, paroxysmal ([facility]) 03/14/2018 CKD (chronic kidney disease) stage 3, GFR 30-59 ml/min ([facility]) 07/12/2017 Cognitive impairment 04/10/2017 Colitis, collagenous 09/03/2011 Degenerative joint disease of right knee 10/19/2010 Degenerative lumbar spinal stenosis Generalized osteoarthrosis, unspecified site KNEE JOINT REPLACEMENT STATUS 09/02/2006 Left foot drop 01/05/2011 Lichen Simplex Chronicus (LSC) 04/24/2013 Lung nodule 10/20/2010 Mixed incontinence 10/28/2014 Dr. Almendarez Nontraumatic rupture of patellar tendon 07/2007 sugical repair 07/29/[address] Devries Other and unspecified hyperlipidemia 06/20/2012 Other pulmonary embolism and infarction 10/30/2006 Postlaminectomy syndrome 02/01/2016 Postmenopausal atrophic vaginitis 06/27/2016 Scoliosis Xray from [facility] 08/03/11 showed; also has narrowing L3-L4 and L4- L5; DJD L3, L4, L5; slight anterior displacement L4 on L5. Symptomatic menopausal or female climacteric states Unspecified asthma(493.90) Unspecified hemorrhoids without mention of complication Hemorrhoids Urge incontinence 02/01/2005 VENOUS THROMBOSIS LOWER EXTREMITY NOS 10/30/2006 Post op left knee arthroscopy; ?PE at that time PAST SURGICAL HISTORY Procedure Laterality Date ARTHROSCOPY KNEE DIAGNOSTIC W/WO SYNOVIAL BX SPX Left 05/10/2003 Arthroscopy, knee Left ARTHRP KNE CONDYLE&PLATU MEDIAL&LAT COMPARTMENTS Right 2008 right knee replacement DELIVERY ONLY 1988 , low cervical COLONOSCOPY 03/25/01 R Cebul - hyperplastic polyp COLONOSCOPY 04/20/2019 COLONOSCOPY FLX DX W/COLLJ SPEC WHEN PFRMD 08/05/2018 Colonoscopy [facility] (Notes Tab) COLONOSCOPY W/BIOPSY SINGLE/MULTIPLE 05/17/11 repeat EGD TRANSORAL BIOPSY SINGLE/MULTIPLE 05/17/11 FILTER PLACEMENT (VENA CAVA) 11-03-12 HEMORRHOIDECTOMY NTRNL & XTRNL 1 COLUMN/GROUP 03/27/01 HIP SURGERY HX Right 06/11/2018 LAMINECTOMY W/O FFD /2 VERT SEG LUMBAR 11/05/2012 Laminectomy, lumbar LAMINECTOMY,LUMBAR 1995 Back surgery LAPS ABD PRTM&OMENTUM DX W/WO SPEC BR/WA SPX 1999 Laparoscopy LIG/TRNSXJ FLP TUBE ABDL/VAG APPR UNI/BI 1988 Tubal ligation OPTX ANKLE DISLOCATION W/REPAIR/INT/XTRNL FIXJ 1986 ORIF Ankle PAST SURGICAL HISTORY OF 2003 Thumb bilateral PAST SURGICAL HISTORY OF Left 07/2006 partial knee replacement left PAST SURGICAL HISTORY OF Right 2007 repair knee cap PAST SURGICAL HISTORY OF 03/26/2014 transurethral resection of bladder lesion. vaginal sling. Dr. Almendarez RETRIEV INTRAVASC FOREGN BODY 01/30/13 filter removal SALPINGO-OOPHORECTOMY COMPL/PRTL UNI/BI SPX 1999 Salpingo-oophorectomy bilateral TOTAL ABDOMINAL HYSTERECT W/WO RMVL TUBE OVARY 1999 A&P REPAIR hyst for benign reason TOTAL HIP JOINT REPLACEMENT Right 08/30/[address] Blevins ALLERGIES Chlorhexidine, Cotton, Darvon [Propoxyphene Hcl], Feathers, Grass Pollen, Morphine, Vinegar, and Wool MEDICATIONS Benzonatate 200 mg capsule Take 1 capsule by mouth three times daily as needed. cetirizine (ZYRTEC) 10 mg tablet Take 1 tablet by mouth once daily. lidocaine 5 % gel Apply to affected area three times daily as needed. fluticasone-salmeterol (ADVAIR DISKUS) 100-50 mcg/dose inhaler Inhale 1 Puff as instructed twice daily. Finishing her supply. atorvastatin (LIPITOR) 40 mg tablet Take 1 tablet by mouth daily at bedtime. For cholesterol. fluticasone (FLONASE) 50 mcg/actuation nasal spray Use 2 Sprays in each nostril once daily. Rinse mouth after use. warfarin (COUMADIN) 5 mg tablet 7.5 mg on Saturday and and 5 mg all other days of the week, AND DIRECTED omeprazole (PRILOSEC) 20 mg capsule TAKE ONE CAPSULE BY MOUTH DAILY 1/2 HOUR BEFORE BREAKFAST metFORMIN (GLUCOPHAGE) 500 mg tablet Take 1 tablet by mouth daily with breakfast. Nebulizer Accessories misc Use with nebulizer every 4 hours as needed for wheezing and shortness of breathPt would like mask for use with nebulizer. albuterol (PROVENTIL) 2.5 mg /3 mL (0.083 %) nebulizer solution Use 3 mL via nebulizer every 4 hours as needed for wheezing/shortness of breath. Use over 5-15minutes. albuterol HFA (PROVENTIL HFA) 90 mcg/actuation inhaler Inhale 2 Puffs as instructed every 4 hours as needed for wheezing/shortness of breath. MAY GIVE AVAILABLE EQUIVALENT ALBUTEROL HFA INHALER blood sugar diagnostic (TRUE METRIX GLUCOSE TEST STRIP) test strip Test 2 times daily Dx: E11.8 Insulin: No ferrous sulfate (IRON) 325 mg (65 mg iron) tablet Take 1 tablet by mouth twice daily. Nebulizer NEBULIZER FOR HOME USE. DX: Asthma. Use as directed. traMADol (ULTRAM) 50 mg tablet Take 1 tablet by mouth three times daily as needed for Pain. Per Dr. Cristy Roman, pain management. Blood-Glucose Meter (TRUE METRIX GLUCOSE METER) mis Use daily as directed. Dx: E11.8 Insulin: No gabapentin (NEURONTIN) 800 mg tablet Take 1 tablet by mouth three times daily. Lancets lancets Test blood sugar(s) 2 times daily. Dx: Type 2 DM - Uncontrolled E11.9 Insulin: No ASCORBIC ACID/BIOFLAVONOIDS (MELANIE C ORAL) Take 1 tablet by mouth twice daily. oxybutynin XL (DITROPAN XL) 10 mg 24 hr tablet Take 1 tablet by mouth once daily. Calcium-Cholecalciferol, D3, (CALCIUM 500 + D, D3,) 500-125 mg-unit ORAL Tab Take two(2) tablets twice daily. Aurora-3 Fatty Acids-Vitamin E (FISH OIL) 1,000 mg ORAL Cap Take 3 pills once daily (?dose) THERAPEUTIC MULTIVITAMIN ORAL TAB Take one(1) tablet daily. Estradiol (VAGIFEM) 10 mcg vaginal tablet Use 1 tablet vaginally every Saturday and Saturday. FAMILY HISTORY Problem Relation Age of Onset Blood Disease Mother blood clot, coumadin Hypertension Mother Coronary Artery Disease Mother 84 Cancer Father poss bladder Prostate Cancer Father Breast Cancer Sister 64 None Sister None Sister Diabetes Paternal Grandmother Colon Cancer Paternal Grandmother Stroke Paternal Grandfather Diabetes Paternal Grandfather Cancer Maternal Grandfather LEUKEMIA Cancer Maternal Uncle Psychiatry Sister anxiety Social History Tobacco Use Smoking status: Former Smoker Types: Cigarettes Quit date: 02/18/1969 Years since quittin.3 Smokeless tobacco: Never Used Tobacco comment: Pt smoked 1-2 cigarettes daily x 1-2 years. Vaping Use Vaping Use: Never used Substance Use Topics Alcohol use: No Comment: rarely Drug use: No ASSESSMENT/PLAN: 1. Cough - ICD9: 786.2, ICD10: R05.9 - XR CHEST 2V FRONTAL/LAT RESULT: Lines, tubes, and devices: None. Lungs and pleura: Mild opacities at the right greater than left lung bases, though improved on the right when compared with prior study. No discernible pleural effusion or pneumothorax. Cardiomediastinal silhouette: Stable cardiomediastinal silhouette. Moderate hiatal hernia. Bones and soft tissues: Degenerative changes in the spine. IMPRESSION IMPRESSION: Mild opacity is at the right greater than left lung bases, though improved on the right when compared with prior study. Findings may be reflective of evolving/resolving pneumonia and/or atelectasis. Manager Intranet: MARSHALL Transcribe Date/Time: May 31 2021 8:46A Dictated by : MATTIE LINDSAY MD Prescription instructions reviewed with patient as applicable. Doxycycline bid for 10 days. Instructed to add over the counter allergy medication that is cohesive with her medication. Potential red flag symptoms discussed with the patient. Reviewed appropriate action plan to take if red flag symptoms occur. Patient agreeable to treatment plan. Pia Thomson APRN.[facility]JANDRINA documented in this encounter [facility] 05-27-2021 Miscellaneous Notes Phoned patient and went over coumadin instructions from Dr Giang continue 7.5 mg Tues/Thurs/Sat and 5 mg all other days and recheck INR in 2 weeks with understanding. Left message for patient to return call to office. See other phone encounter. Continue Coumadin dose as stated. INR in 2 weeks. Last INR: [facility] lab draw 2.8 05/25/2021 Current dose of coumadin is: 7.5 mg on Tues/Thurs/Sat and 5 mg all other days.. Last date of dose change: 05/04/21. Previous INR (date and result): 05/15/21 was 2.7 Additional Clinical Information or narrative: INR goal is 2-3. Pt says she has been 7.5 mg Tues,Thur and Sat for a long time and 5mg other days This is not what we have verified mai time she is called. documented in this encounter [facility] 05-18-2021 Miscellaneous Notes Pt called in and requested Rxs to [facility]. Patient has been identified by name and date of : Yes Patient phones for refill(s): Pending Prescriptions Disp Refills CETIRIZINE 10 MG TABLET 90 tablet 3 Sig: Take 1 tablet by mouth once daily. ALISON: No LIDOCAINE 5 % TOPICAL GEL 30 g 2 Sig: Apply to affected area three times daily as needed. ALISON: No Date of last office visit in primary care: 03/02/21 next apt 06/09/21 Last 2 Encounter Wt Readings: Date: Wt: 05/09/2021 79.4 kg (175 lb) 04/13/2021 78 kg (172 lb) Previous labs/tests for medication: Not applicable Please advise. Thank you. Yessi Lowe LPN Patient has been identified by name and date of : Yes Pending Prescriptions Disp Refills CETIRIZINE 10 MG TABLET 90 tablet 3 Sig: Take 1 tablet by mouth once daily. ALISON: No LIDOCAINE 5 % TOPICAL GEL 30 g 2 Sig: Apply to affected area three times daily as needed. ALISON: No RX INSTRUCTIONS: Patient aware RX will be sent to pharmacy. No need to notify patient. Susan Alejo documented in this encounter [facility] 05-15-2021 Miscellaneous Notes Pt called and is notified of providers results and instructions. Pt voices understanding. Denice Gonzalez RN Dose: No Change. Repeat in INR in 1 week Kimberly Farah APRN.ALEJANDRINA Last INR: INR (POCT) 2.7 05/15/2021 Current dose of coumadin is: 7.5 mg on Tues/Thurs and 5 mg all other days.. Last date of dose change: 05/04/21. Previous INR (date and result): 4.1 Additional Clinical Information or narrative: no documented in this encounter [facility] documented as of this encounter (statuses as of 05/15/2021) [facility]2018 History of Past illness Narrative* Problem Noted Date Resolved Date Pain in left foot 08/30/2017 03/20/2018 CKD (chronic kidney disease) stage 3, GFR 30-59 ml/min 07/12/2017 05/09/2020 Postlaminectomy syndrome 02/01/2016 018 Spondylolisthesis of lumbar region 02/02/2015 11/08/2016 Lichen Simplex Chronicus (LSC) 04/24/2013 0 11/01/2015 Eczematous dermatitis 04/24/2013 11/08/2016 Pruritus 04/24/2013 10/28/2014 Postinflammatory skin changes 04/24/2013 Xerosis cutis 04/24/2013 10/28/2014 Postinflammatory hyperpigmentation 04/24/2013 10/28/2014 Colitis, collagenous 09/03/2011 03/11/2012 Dermatofibroma of right lower leg 08/30/2011 03/11/2012 Scar condition and fibrosis of skin 08/30/2011 03/11/2012 Other seborrheic keratosis 08/30/201103/11 Melanocytic nevi of trunk: back 08/30/2011 10/28/2014 Other acne 08/30/2011 03/11/2012 Granuloma of hair follicle 08/30/201103/11 Excoriation 08/30/2011 03/11/2012 Actinic skin damage 08/30/2011 10/28/2014 Diarrhea 05/17/2011 03/11/2012 Anemia, unspecified 05/17/2011 07/25/2018 Other hammer toe (acquired) 01/05/201104/2013 Overlapping toe 12/22/2010 03/11/2012 Overview: left second toe over great toe Lung nodule 10/20/2010 03/11/2012 Overview: 04/15/10 [facility] RML nodule, f/u enc 6mo Degenerative joint disease of right knee 011 03/11/2012 Osteoarthritis of basilar joint of thumb, left 0 10/10/2010 03/11/2012 Overview: [facility] DVT (deep venous thrombosis) 01/10/2010 Gross hematuria 11/02/2009 03/11/2012 Microscopic hematuria 10/18/2008 03/11/2012 Urgency of urination 02/05/2008 03/11/2012 Anxiety state, unspecified 12/02/200703/11 Symptomatic menopausal or female climacteric sta prashanth 09/01/2007 03/11/2012 Knee joint replacement by other means 09/02/2006 12/18/2017 Dermatophytosis of nail 06/07/2005 03/11/19 13 Other specified disorder of bladder 02/01/2005 03/11/2012 Urge incontinence 02/01/2005 10/28/2014 Unspecified tinnitus 03/11/2012 Carpal tunnel syndrome 3 Dizziness and giddiness 03/11/19 13 Contusion of unspecified part of trunk 03/11/2012 Acute, but ill-defined, cerebrovascular disease 03/11/2012 Other pulmonary embolism and infarction 03/11/2012 Scoliosis 03/11/2012 Overview: Xray from [facility] 08/03/11 showed; also has narrowing L3-L4 and L4- L5; DJD L3, L4, L5; slight anterior displacement L4 on L5. documented as of this encounter (statuses as of 05/19/2021) [facility] History of Past illness Narrative* Problem Noted Date Resolved Date Pain in left foot 08/30/2017 03/20/2018 CKD (chronic kidney disease) stage 3, GFR 30-59 ml/min 07/12/2017 05/09/2020 Postlaminectomy syndrome 02/01/2016 018 Spondylolisthesis of lumbar region 02/02/2015 11/08/2016 Lichen Simplex Chronicus (LSC) 04/24/2013 0 11/01/2015 Eczematous dermatitis 04/24/2013 11/08/2016 Pruritus 04/24/2013 10/28/2014 Postinflammatory skin changes 04/24/2013 Xerosis cutis 04/24/2013 10/28/2014 Postinflammatory hyperpigmentation 04/24/2013 10/28/2014 Colitis, collagenous 09/03/2011 03/11/2012 Dermatofibroma of right lower leg 08/30/2011 03/11/2012 Scar condition and fibrosis of skin 08/30/2011 03/11/2012 Other seborrheic keratosis 08/30/201103/11 Melanocytic nevi of trunk: back 08/30/2011 10/28/2014 Other acne 08/30/2011 03/11/2012 Granuloma of hair follicle 08/30/201103/11 Excoriation 08/30/2011 03/11/2012 Actinic skin damage 08/30/2011 10/28/2014 Diarrhea 05/17/2011 03/11/2012 Anemia, unspecified 05/17/2011 07/25/2018 Other hammer toe (acquired) 01/05/2011 09/0 04/2013 Overlapping toe 12/22/2010 03/11/2012 Overview: left second toe over great toe Lung nodule 10/20/2010 03/11/2012 Overview: 04/15/10 [facility] RML nodule, f/u enc 6mo Degenerative joint disease of right knee 011 03/11/2012 Osteoarthritis of basilar joint of thumb, left 0 10/10/2010 03/11/2012 Overview: [facility] DVT (deep venous thrombosis) 01/10/2010 Gross hematuria 11/02/2009 03/11/2012 Microscopic hematuria 10/18/2008 03/11/2012 Urgency of urination 02/05/2008 03/11/2012 Anxiety state, unspecified 12/02/200703/11 Symptomatic menopausal or female climacteric sta prashanth 09/01/2007 03/11/2012 Knee joint replacement by other means 09/02/2006 12/18/2017 Dermatophytosis of nail 06/07/2005 03/11/19 13 Other specified disorder of bladder 02/01/2005 03/11/2012 Urge incontinence 02/01/2005 10/28/2014 Unspecified tinnitus 03/11/2012 Carpal tunnel syndrome 3 Dizziness and giddiness 03/11/19 13 Contusion of unspecified part of trunk 03/11/2012 Acute, but ill-defined, cerebrovascular disease 03/11/2012 Other pulmonary embolism and infarction 03/11/2012 Scoliosis 03/11/2012 Overview: Xray from [facility] 08/03/11 showed; also has narrowing L3-L4 and L4- L5; DJD L3, L4, L5; slight anterior displacement L4 on L5. documented as of this encounter (statuses as of 05/27/2021) [facility] History of Past illness Narrative* Problem Noted Date Resolved Date Pain in left foot 08/30/2017 03/20/2018 CKD (chronic kidney disease) stage 3, GFR 30-59 ml/min 07/12/2017 05/09/2020 Postlaminectomy syndrome 02/01/2016 018 Spondylolisthesis of lumbar region 02/02/2015 11/08/2016 Lichen Simplex Chronicus (LSC) 04/24/2013 0 11/01/2015 Eczematous dermatitis 04/24/2013 11/08/2016 Pruritus 04/24/2013 10/28/2014 Postinflammatory skin changes 04/24/2013 Xerosis cutis 04/24/2013 10/28/2014 Postinflammatory hyperpigmentation 04/24/2013 10/28/2014 Colitis, collagenous 09/03/2011 03/11/2012 Dermatofibroma of right lower leg 08/30/2011 03/11/2012 Scar condition and fibrosis of skin 08/30/2011 03/11/2012 Other seborrheic keratosis 08/30/201103/11 Melanocytic nevi of trunk: back 08/30/2011 10/28/2014 Other acne 08/30/2011 03/11/2012 Granuloma of hair follicle 08/30/201103/11 Excoriation 08/30/2011 03/11/2012 Actinic skin damage 08/30/2011 10/28/2014 Diarrhea 05/17/2011 03/11/2012 Anemia, unspecified 05/17/2011 07/25/2018 Other hammer toe (acquired) 01/05/201104/2013 Overlapping toe 12/22/2010 03/11/2012 Overview: left second toe over great toe Lung nodule 10/20/2010 03/11/2012 Overview: [facility], f/u enc 6mo Degenerative joint disease of right knee 011 03/11/2012 Osteoarthritis of basilar joint of thumb, left 0 10/10/2010 03/11/2012 Overview: [facility] DVT (deep venous thrombosis) 01/10/2010 Gross hematuria 11/02/2009 03/11/2012 Microscopic hematuria 10/18/2008 03/11/2012 Urgency of urination 02/05/2008 03/11/2012 Anxiety state, unspecified 12/02/200703/11 Symptomatic menopausal or female climacteric sta prashanth 09/01/2007 03/11/2012 Knee joint replacement by other means 09/02/2006 12/18/2017 Dermatophytosis of nail 06/07/2005 03/11/19 13 Other specified disorder of bladder 02/01/2005 03/11/2012 Urge incontinence 02/01/2005 10/28/2014 Unspecified tinnitus 03/11/2012 Carpal tunnel syndrome 3 Dizziness and giddiness 03/11/19 13 Contusion of unspecified part of trunk 03/11/2012 Acute, but ill-defined, cerebrovascular disease 03/11/2012 Other pulmonary embolism and infarction 03/11/2012 Scoliosis 03/11/2012 Overview: Xray from [facility] 08/03/11 showed; also has narrowing L3-L4 and L4- L5; DJD L3, L4, L5; slight anterior displacement L4 on L5. documented as of this encounter (statuses as of 05/31/2021) [facility] History of Past illness Narrative* Problem Noted Date Resolved Date Pain in left foot 08/30/2017 03/20/2018 CKD (chronic kidney disease) stage 3, GFR 30-59 ml/min 07/12/2017 05/09/2020 Postlaminectomy syndrome 02/01/2016 018 Spondylolisthesis of lumbar region 02/02/2015 11/08/2016 Lichen Simplex Chronicus (LSC) 04/24/2013 0 11/01/2015 Eczematous dermatitis 04/24/2013 11/08/2016 Pruritus 04/24/2013 10/28/2014 Postinflammatory skin changes 04/24/2013 Xerosis cutis 04/24/2013 10/28/2014 Postinflammatory hyperpigmentation 04/24/2013 10/28/2014 Colitis, collagenous 09/03/2011 03/11/2012 Dermatofibroma of right lower leg 08/30/2011 03/11/2012 Scar condition and fibrosis of skin 08/30/2011 03/11/2012 Other seborrheic keratosis 08/30/201103/11 Melanocytic nevi of trunk: back 08/30/2011 10/28/2014 Other acne 08/30/2011 03/11/2012 Granuloma of hair follicle 08/30/201103/11 Excoriation 08/30/2011 03/11/2012 Actinic skin damage 08/30/2011 10/28/2014 Diarrhea 05/17/2011 03/11/2012 Anemia, unspecified 05/17/2011 07/25/2018 Other hammer toe (acquired) 01/05/2011 09/0 04/2013 Overlapping toe 12/22/2010 03/11/2012 Overview: left second toe over great toe Lung nodule 10/20/2010 03/11/2012 Overview: 04/15/10 [facility] RML nodule, f/u enc 6mo Degenerative joint disease of right knee 011 03/11/2012 Osteoarthritis of basilar joint of thumb, left 0 10/10/2010 03/11/2012 Overview: [facility] DVT (deep venous thrombosis) 01/10/2010 Gross hematuria 11/02/2009 03/11/2012 Microscopic hematuria 10/18/2008 03/11/2012 Urgency of urination 02/05/2008 03/11/2012 Anxiety state, unspecified 12/02/200703/11 Symptomatic menopausal or female climacteric sta prashanth 09/01/2007 03/11/2012 Knee joint replacement by other means 09/02/2006 12/18/2017 Dermatophytosis of nail 06/07/2005 03/11/19 13 Other specified disorder of bladder 02/01/2005 03/11/2012 Urge incontinence 02/01/2005 10/28/2014 Unspecified tinnitus 03/11/2012 Carpal tunnel syndrome 3 Dizziness and giddiness 03/11/19 13 Contusion of unspecified part of trunk 03/11/2012 Acute, but ill-defined, cerebrovascular disease 03/11/2012 Other pulmonary embolism and infarction 03/11/2012 Scoliosis 03/11/2012 Overview: Xray from [facility] 08/03/11 showed; also has narrowing L3-L4 and L4- L5; DJD L3, L4, L5; slight anterior displacement L4 on L5. documented as of this encounter (statuses as of 06/02/2021) [facility] History of Past illness Narrative* Problem Noted Date Resolved Date Pain in left foot 08/30/2017 03/20/2018 CKD (chronic kidney disease) stage 3, GFR 30-59 ml/min 07/12/2017 05/09/2020 Postlaminectomy syndrome 02/01/2016 018 Spondylolisthesis of lumbar region 02/02/2015 11/08/2016 Lichen Simplex Chronicus (LSC) 04/24/2013 0 11/01/2015 Eczematous dermatitis 04/24/2013 11/08/2016 Pruritus 04/24/2013 10/28/2014 Postinflammatory skin changes 04/24/2013 Xerosis cutis 04/24/2013 10/28/2014 Postinflammatory hyperpigmentation 04/24/2013 10/28/2014 Colitis, collagenous 09/03/2011 03/11/2012 Dermatofibroma of right lower leg 08/30/2011 03/11/2012 Scar condition and fibrosis of skin 08/30/2011 03/11/2012 Other seborrheic keratosis 08/30/201103/11 Melanocytic nevi of trunk: back 08/30/2011 10/28/2014 Other acne 08/30/2011 03/11/2012 Granuloma of hair follicle 08/30/201103/11 Excoriation 08/30/2011 03/11/2012 Actinic skin damage 08/30/2011 10/28/2014 Diarrhea 05/17/2011 03/11/2012 Anemia, unspecified 05/17/2011 07/25/2018 Other hammer toe (acquired) 01/05/2011 090 04/2013 Overlapping toe 12/22/2010 03/11/2012 Overview: left second toe over great toe Lung nodule 10/20/2010 03/11/2012 Overview: 04/15/10 [facility] RML nodule, f/u enc 6mo Degenerative joint disease of right knee 011 03/11/2012 Osteoarthritis of basilar joint of thumb, left 0 10/10/2010 03/11/2012 Overview: [facility] DVT (deep venous thrombosis) 01/10/2010 Gross hematuria 11/02/2009 03/11/2012 Microscopic hematuria 10/18/2008 03/11/2012 Urgency of urination 02/05/2008 03/11/2012 Anxiety state, unspecified 12/02/200703/11 Symptomatic menopausal or female climacteric sta prashanth 09/01/2007 03/11/2012 Knee joint replacement by other means 09/02/2006 12/18/2017 Dermatophytosis of nail 06/07/2005 03/11/19 13 Other specified disorder of bladder 02/01/2005 03/11/2012 Urge incontinence 02/01/2005 10/28/2014 Unspecified tinnitus 03/11/2012 Carpal tunnel syndrome 3 Dizziness and giddiness 03/11/19 13 Contusion of unspecified part of trunk 03/11/2012 Acute, but ill-defined, cerebrovascular disease 03/11/2012 Other pulmonary embolism and infarction 03/11/2012 Scoliosis 03/11/2012 Overview: Xray from [facility] 08/03/11 showed; also has narrowing L3-L4 and L4- L5; DJD L3, L4, L5; slight anterior displacement L4 on L5. documented as of this encounter (statuses as of 06/29/2021) [facility] History of Past illness Narrative* Problem Noted Date Resolved Date Pain in left foot 08/30/2017 03/20/2018 CKD (chronic kidney disease) stage 3, GFR 30-59 ml/min 07/12/2017 05/09/2020 Postlaminectomy syndrome 02/01/2016 018 Spondylolisthesis of lumbar region 02/02/2015 11/08/2016 Lichen Simplex Chronicus (LSC) 04/24/2013 0 11/01/2015 Eczematous dermatitis 04/24/2013 11/08/2016 Pruritus 04/24/2013 10/28/2014 Postinflammatory skin changes 04/24/2013 Xerosis cutis 04/24/2013 10/28/2014 Postinflammatory hyperpigmentation 04/24/2013 10/28/2014 Colitis, collagenous 09/03/2011 03/11/2012 Dermatofibroma of right lower leg 08/30/2011 03/11/2012 Scar condition and fibrosis of skin 08/30/2011 03/11/2012 Other seborrheic keratosis 08/30/201103/11 Melanocytic nevi of trunk: back 08/30/2011 10/28/2014 Other acne 08/30/2011 03/11/2012 Granuloma of hair follicle 08/30/201103/11 Excoriation 08/30/2011 03/11/2012 Actinic skin damage 08/30/2011 10/28/2014 Diarrhea 05/17/2011 03/11/2012 Anemia, unspecified 05/17/2011 07/25/2018 Other hammer toe (acquired) 01/05/201104/2013 Overlapping toe 12/22/2010 03/11/2012 Overview: left second toe over great toe Lung nodule 10/20/2010 03/11/2012 Overview: 04/15/10 [facility] RML nodule, f/u enc 6mo Degenerative joint disease of right knee 011 03/11/2012 Osteoarthritis of basilar joint of thumb, left 0 10/10/2010 03/11/2012 Overview: [facility] DVT (deep venous thrombosis) 01/10/2010 Gross hematuria 11/02/2009 03/11/2012 Microscopic hematuria 10/18/2008 03/11/2012 Urgency of urination 02/05/2008 03/11/2012 Anxiety state, unspecified 12/02/200703/11 Symptomatic menopausal or female climacteric sta prashanth 09/01/2007 03/11/2012 Knee joint replacement by other means 09/02/2006 12/18/2017 Dermatophytosis of nail 06/07/2005 03/11/19 13 Other specified disorder of bladder 02/01/2005 03/11/2012 Urge incontinence 02/01/2005 10/28/2014 Unspecified tinnitus 03/11/2012 Carpal tunnel syndrome 3 Dizziness and giddiness 03/11/19 13 Contusion of unspecified part of trunk 03/11/2012 Acute, but ill-defined, cerebrovascular disease 03/11/2012 Other pulmonary embolism and infarction 03/11/2012 Scoliosis 03/11/2012 Overview: Xray from [facility] 08/03/11 showed; also has narrowing L3-L4 and L4- L5; DJD L3, L4, L5; slight anterior displacement L4 on L5. documented as of this encounter (statuses as of 09/25/2021) [facility] History of Past illness Narrative* Problem Noted Date Resolved Date Pain in left foot 08/30/2017 03/20/2018 CKD (chronic kidney disease) stage 3, GFR 30-59 ml/min 07/12/2017 05/09/2020 Postlaminectomy syndrome 02/01/2016 018 Spondylolisthesis of lumbar region 02/02/2015 11/08/2016 Lichen Simplex Chronicus (LSC) 04/24/2013 0 11/01/2015 Eczematous dermatitis 04/24/2013 11/08/2016 Pruritus 04/24/2013 10/28/2014 Postinflammatory skin changes 04/24/2013 Xerosis cutis 04/24/2013 10/28/2014 Postinflammatory hyperpigmentation 04/24/2013 10/28/2014 Colitis, collagenous 09/03/2011 03/11/2012 Dermatofibroma of right lower leg 08/30/2011 03/11/2012 Scar condition and fibrosis of skin 08/30/2011 03/11/2012 Other seborrheic keratosis 08/30/201103/11 Melanocytic nevi of trunk: back 08/30/2011 10/28/2014 Other acne 08/30/2011 03/11/2012 Granuloma of hair follicle 08/30/201103/11 Excoriation 08/30/2011 03/11/2012 Actinic skin damage 08/30/2011 10/28/2014 Diarrhea 05/17/2011 03/11/2012 Anemia, unspecified 05/17/2011 07/25/2018 Other hammer toe (acquired) 01/05/201104/2013 Overlapping toe 12/22/2010 03/11/2012 Overview: left second toe over great toe Lung nodule 10/20/2010 03/11/2012 Overview: 04/15/10 [facility] RML nodule, f/u enc 6mo Degenerative joint disease of right knee 011 03/11/2012 Osteoarthritis of basilar joint of thumb, left 0 10/10/2010 03/11/2012 Overview: [facility] DVT (deep venous thrombosis) 01/10/2010 Gross hematuria 11/02/2009 03/11/2012 Microscopic hematuria 10/18/2008 03/11/2012 Urgency of urination 02/05/2008 03/11/2012 Anxiety state, unspecified 12/02/200703/11 Symptomatic menopausal or female climacteric sta prashanth 09/01/2007 03/11/2012 Knee joint replacement by other means 09/02/2006 12/18/2017 Dermatophytosis of nail 06/07/2005 03/11/19 13 Other specified disorder of bladder 02/01/2005 03/11/2012 Urge incontinence 02/01/2005 10/28/2014 Unspecified tinnitus 03/11/2012 Carpal tunnel syndrome 3 Dizziness and giddiness 03/11/19 13 Contusion of unspecified part of trunk 03/11/2012 Acute, but ill-defined, cerebrovascular disease 03/11/2012 Other pulmonary embolism and infarction 03/11/2012 Scoliosis 03/11/2012 Overview: Xray from [facility] 08/03/11 showed; also has narrowing L3-L4 and L4- L5; DJD L3, L4, L5; slight anterior displacement L4 on L5. documented as of this encounter (statuses as of 10/31/2021) [facility] History of Past illness Narrative* Problem Noted Date Resolved Date Pain in left foot 08/30/2017 03/20/2018 CKD (chronic kidney disease) stage 3, GFR 30-59 ml/min 07/12/2017 05/09/2020 Postlaminectomy syndrome 02/01/2016 018 Spondylolisthesis of lumbar region 02/02/2015 11/08/2016 Lichen Simplex Chronicus (LSC) 04/24/2013 0 11/01/2015 Eczematous dermatitis 04/24/2013 11/08/2016 Pruritus 04/24/2013 10/28/2014 Postinflammatory skin changes 04/24/2013 Xerosis cutis 04/24/2013 10/28/2014 Postinflammatory hyperpigmentation 04/24/2013 10/28/2014 Colitis, collagenous 09/03/2011 03/11/2012 Dermatofibroma of right lower leg 08/30/2011 03/11/2012 Scar condition and fibrosis of skin 08/30/2011 03/11/2012 Other seborrheic keratosis 08/30/201103/11 Melanocytic nevi of trunk: back 08/30/2011 10/28/2014 Other acne 08/30/2011 03/11/2012 Granuloma of hair follicle 08/30/201103/11 Excoriation 08/30/2011 03/11/2012 Actinic skin damage 08/30/2011 10/28/2014 Diarrhea 05/17/2011 03/11/2012 Anemia, unspecified 05/17/2011 07/25/2018 Other hammer toe (acquired) 01/05/201104/2013 Overlapping toe 12/22/2010 03/11/2012 Overview: left second toe over great toe Lung nodule 10/20/2010 03/11/2012 Overview: 04/15/10 [facility] RML nodule, f/u enc 6mo Degenerative joint disease of right knee 011 03/11/2012 Osteoarthritis of basilar joint of thumb, left 0 10/10/2010 03/11/2012 Overview: [facility] DVT (deep venous thrombosis) 01/10/2010 Gross hematuria 11/02/2009 03/11/2012 Microscopic hematuria 10/18/2008 03/11/2012 Urgency of urination 02/05/2008 03/11/2012 Anxiety state, unspecified 12/02/200703/11 Symptomatic menopausal or female climacteric sta prashanth 09/01/2007 03/11/2012 Knee joint replacement by other means 09/02/2006 12/18/2017 Dermatophytosis of nail 06/07/2005 03/11/19 13 Other specified disorder of bladder 02/01/2005 03/11/2012 Urge incontinence 02/01/2005 10/28/2014 Unspecified tinnitus 03/11/2012 Carpal tunnel syndrome 3 Dizziness and giddiness 03/11/19 13 Contusion of unspecified part of trunk 03/11/2012 Acute, but ill-defined, cerebrovascular disease 03/11/2012 Other pulmonary embolism and infarction 03/11/2012 Scoliosis 03/11/2012 Overview: Xray from [facility] 08/03/11 showed; also has narrowing L3-L4 and L4- L5; DJD L3, L4, L5; slight anterior displacement L4 on L5. documented as of this encounter (statuses as of 02/23/2022) [facility] History of Past illness Narrative* Problem Noted Date Resolved Date Pain in left foot 08/30/2017 03/20/2018 CKD (chronic kidney disease) stage 3, GFR 30-59 ml/min 07/12/2017 05/09/2020 Postlaminectomy syndrome 02/01/2016 018 Spondylolisthesis of lumbar region 02/02/2015 11/08/2016 Lichen Simplex Chronicus (LSC) 04/24/2013 0 11/01/2015 Eczematous dermatitis 04/24/2013 11/08/2016 Pruritus 04/24/2013 10/28/2014 Postinflammatory skin changes 04/24/2013 Xerosis cutis 04/24/2013 10/28/2014 Postinflammatory hyperpigmentation 04/24/2013 10/28/2014 Colitis, collagenous 09/03/2011 03/11/2012 Dermatofibroma of right lower leg 08/30/2011 03/11/2012 Scar condition and fibrosis of skin 08/30/2011 03/11/2012 Other seborrheic keratosis 08/30/201103/11 Melanocytic nevi of trunk: back 08/30/2011 10/28/2014 Other acne 08/30/2011 03/11/2012 Granuloma of hair follicle 08/30/201103/11 Excoriation 08/30/2011 03/11/2012 Actinic skin damage 08/30/2011 10/28/2014 Diarrhea 05/17/2011 03/11/2012 Anemia, unspecified 05/17/2011 07/25/2018 Other hammer toe (acquired) 01/05/201104/2013 Overlapping toe 12/22/2010 03/11/2012 Overview: left second toe over great toe Lung nodule 10/20/2010 03/11/2012 Overview: 04/15/10 [facility] RML nodule, f/u enc 6mo Degenerative joint disease of right knee 011 03/11/2012 Osteoarthritis of basilar joint of thumb, left 0 10/10/2010 03/11/2012 Overview: [facility] DVT (deep venous thrombosis) 01/10/2010 Gross hematuria 11/02/2009 03/11/2012 Microscopic hematuria 10/18/2008 03/11/2012 Urgency of urination 02/05/2008 03/11/2012 Anxiety state, unspecified 12/02/200703/11 Symptomatic menopausal or female climacteric sta prashanth 09/01/2007 03/11/2012 Knee joint replacement by other means 09/02/2006 12/18/2017 Dermatophytosis of nail 06/07/2005 03/11/19 13 Other specified disorder of bladder 02/01/2005 03/11/2012 Urge incontinence 02/01/2005 10/28/2014 Unspecified tinnitus 03/11/2012 Carpal tunnel syndrome 3 Dizziness and giddiness 03/11/19 13 Contusion of unspecified part of trunk 03/11/2012 Acute, but ill-defined, cerebrovascular disease 03/11/2012 Other pulmonary embolism and infarction 03/11/2012 Scoliosis 03/11/2012 Overview: Xray from [facility] 08/03/11 showed; also has narrowing L3-L4 and L4- L5; DJD L3, L4, L5; slight anterior displacement L4 on L5. documented as of this encounter (statuses as of 04/16/2022) [facility] History of Past illness Narrative* Problem Noted Date Resolved Date Pain in left foot 08/30/2017 03/20/2018 CKD (chronic kidney disease) stage 3, GFR 30-59 ml/min 07/12/2017 05/09/2020 Postlaminectomy syndrome 02/01/2016 018 Spondylolisthesis of lumbar region 02/02/2015 11/08/2016 Lichen Simplex Chronicus (LSC) 04/24/2013 0 11/01/2015 Eczematous dermatitis 04/24/2013 11/08/2016 Pruritus 04/24/2013 10/28/2014 Postinflammatory skin changes 04/24/2013 Xerosis cutis 04/24/2013 10/28/2014 Postinflammatory hyperpigmentation 04/24/2013 10/28/2014 Colitis, collagenous 09/03/2011 03/11/2012 Dermatofibroma of right lower leg 08/30/2011 03/11/2012 Scar condition and fibrosis of skin 08/30/2011 03/11/2012 Other seborrheic keratosis 08/30/201103/11 Melanocytic nevi of trunk: back 08/30/2011 10/28/2014 Other acne 08/30/2011 03/11/2012 Granuloma of hair follicle 08/30/201103/11 Excoriation 08/30/2011 03/11/2012 Actinic skin damage 08/30/2011 10/28/2014 Diarrhea 05/17/2011 03/11/2012 Anemia, unspecified 05/17/2011 07/25/2018 Other hammer toe (acquired) 01/05/201104/2013 Overlapping toe 12/22/2010 03/11/2012 Overview: left second toe over great toe Lung nodule 10/20/2010 03/11/2012 Overview: 04/15/10 [facility] RML nodule, f/u enc 6mo Degenerative joint disease of right knee 011 03/11/2012 Osteoarthritis of basilar joint of thumb, left 0 10/10/2010 03/11/2012 Overview: [facility] DVT (deep venous thrombosis) 01/10/2010 Gross hematuria 11/02/2009 03/11/2012 Microscopic hematuria 10/18/2008 03/11/2012 Urgency of urination 02/05/2008 03/11/2012 Anxiety state, unspecified 12/02/200703/11 Symptomatic menopausal or female climacteric sta prashanth 09/01/2007 03/11/2012 Knee joint replacement by other means 09/02/2006 12/18/2017 Dermatophytosis of nail 06/07/2005 03/11/19 13 Other specified disorder of bladder 02/01/2005 03/11/2012 Urge incontinence 02/01/2005 10/28/2014 Unspecified tinnitus 03/11/2012 Carpal tunnel syndrome 3 Dizziness and giddiness 03/11/19 13 Contusion of unspecified part of trunk 03/11/2012 Acute, but ill-defined, cerebrovascular disease 03/11/2012 Other pulmonary embolism and infarction 03/11/2012 Scoliosis 03/11/2012 Overview: Xray from [facility] 08/03/11 showed; also has narrowing L3-L4 and L4- L5; DJD L3, L4, L5; slight anterior displacement L4 on L5. documented as of this encounter (statuses as of 07/04/2022) [facility] History of Past illness Narrative* Problem Noted Date Resolved Date Pain in left foot 08/30/2017 03/20/2018 CKD (chronic kidney disease) stage 3, GFR 30-59 ml/min 07/12/2017 05/09/2020 Postlaminectomy syndrome 02/01/2016 018 Spondylolisthesis of lumbar region 02/02/2015 11/08/2016 Lichen Simplex Chronicus (LSC) 04/24/2013 0 11/01/2015 Eczematous dermatitis 04/24/2013 11/08/2016 Pruritus 04/24/2013 10/28/2014 Postinflammatory skin changes 04/24/2013 Xerosis cutis 04/24/2013 10/28/2014 Postinflammatory hyperpigmentation 04/24/2013 10/28/2014 Colitis, collagenous 09/03/2011 03/11/2012 Dermatofibroma of right lower leg 08/30/2011 03/11/2012 Scar condition and fibrosis of skin 08/30/2011 03/11/2012 Other seborrheic keratosis 08/30/201103/11 Melanocytic nevi of trunk: back 08/30/2011 10/28/2014 Other acne 08/30/2011 03/11/2012 Granuloma of hair follicle 08/30/201103/11 Excoriation 08/30/2011 03/11/2012 Actinic skin damage 08/30/2011 10/28/2014 Diarrhea 05/17/2011 03/11/2012 Anemia, unspecified 05/17/2011 07/25/2018 Other hammer toe (acquired) 01/05/2011 09/0 04/2013 Overlapping toe 12/22/2010 03/11/2012 Overview: left second toe over great toe Lung nodule 10/20/2010 03/11/2012 Overview: 04/15/10 [facility] RML nodule, f/u enc 6mo Degenerative joint disease of right knee 011 03/11/2012 Osteoarthritis of basilar joint of thumb, left 0 10/10/2010 03/11/2012 Overview: [facility] DVT (deep venous thrombosis) 01/10/2010 Gross hematuria 11/02/2009 03/11/2012 Microscopic hematuria 10/18/2008 03/11/2012 Urgency of urination 02/05/2008 03/11/2012 Anxiety state, unspecified 12/02/200703/11 Symptomatic menopausal or female climacteric sta prashanth 09/01/2007 03/11/2012 Knee joint replacement by other means 09/02/2006 12/18/2017 Dermatophytosis of nail 06/07/2005 03/11/19 13 Other specified disorder of bladder 02/01/2005 03/11/2012 Urge incontinence 02/01/2005 10/28/2014 Unspecified tinnitus 03/11/2012 Carpal tunnel syndrome 3 Dizziness and giddiness 03/11/19 13 Contusion of unspecified part of trunk 03/11/2012 Acute, but ill-defined, cerebrovascular disease 03/11/2012 Other pulmonary embolism and infarction 03/11/2012 Scoliosis 03/11/2012 Overview: Xray from [facility] 08/03/11 showed; also has narrowing L3-L4 and L4- L5; DJD L3, L4, L5; slight anterior displacement L4 on L5. documented as of this encounter (statuses as of 08/06/2022) [facility] History of Past illness Narrative* Problem Noted Date Diagnosed Date Resolved Date Pain in left foot 08/30/2017 03/20/2018 CKD (chronic kidney disease) stage 3, GFR 30-59 ml/min 07/12/2017 05/09/2020 Postlaminectomy syndrome 02/01/2016 Spondylolisthesis of lumbar region 02/02/2015 11/08/2016 Lichen Simplex Chronicus (LSC) 04/24/2013 11/01/2015 Eczematous dermatitis 04/24/20132016 Pruritus 04/24/2013 10/28/2014 Postinflammatory skin changes 04/24/2013 10/21/2013 Xerosis cutis 04/24/2013 10/28/2014 Postinflammatory hyperpigmentation 04/24/2013 10/28/2014 Colitis, collagenous 09/03/2011 013 Dermatofibroma of right lower leg 08/30/2011 03/11/2012 Scar condition and fibrosis of skin 08/30/2011 03/11/2012 Other seborrheic keratosis 08/30/2011 0 03/11/2012 Melanocytic nevi of trunk: back 08/30/2011 10/28/2014 Other acne 08/30/2011 03/11/2012 Granuloma of hair follicle 08/30/2011 0 03/11/2012 Excoriation 08/30/2011 03/11/2012 Actinic skin damage 08/30/2011 10/29/19 15 Diarrhea 05/17/2011 03/11/2012 Anemia, unspecified 05/17/2011 07/26/19 19 Other hammer toe (acquired) 01/05/2011 10/21/2013 Overlapping toe 12/22/2010 03/11/2012 Overview: left second toe over great toe Lung nodule 10/20/2010 03/11/2012 Overview: 04/15/10 [facility] RML nodule, f/u enc 6mo Degenerative joint disease of right knee 10/19/2010 03/11/2012 Osteoarthritis of basilar roula int of thumb, left 10/10/2010 03/11/2012 Overview: [facility] DVT (deep venous thrombosis) 01/10/2010 03/11/2012 Gross hematuria 11/02/2009 03/11/2012 Microscopic hematuria 10/18/20082012 Urgency of urination 02/05/2008 013 Anxiety state, unspecified 12/02/2007 0 03/11/2012 Symptomatic menopausal or fe male climacteric states 09/01/2007 03/11/2012 Knee joint replacement by other means 09/02/2006 12/18/2017 Dermatophytosis of nail 06/07/200502/19 Other specified disorder of bladder 02/01/2005 03/11/2012 Urge incontinence 02/01/2005 10/28/2014 Unspecified tinnitus 013 Carpal tunnel syndrome 03/11 Dizziness and giddiness 02/19 Contusion of unspecified part of trunk 03/11/2012 Acute, but ill-defined, cere brovascular disease 03/11/2012 Other pulmonary embolism and infarction 03/11/2012 Scoliosis 03/11/2012 Overview: Xray from [facility] 08/03/11 showed; also has narrowing L3-L4 and L4- L5; DJD L3, L4, L5; slight anterior displacement L4 on L5. documented as of this encounter (statuses as of 12/23/2022) [facility] Diagnosis Chronic deep vein thrombosis (DVT) of proximal vein of both lower extremities (HCC) [facility] Diagnosis Allergic rhinitis, unspecified seasonality, unspecified trigger [facility] (DVT) of proximal vein of both lower extremities (HCC) [facility] Cough- Primary [facility] Diagnosis Postmenopausal atrophic vaginitis- Primary Breast cancer screening by mammogram Dense breast Inconclusive mammogram [facility] Diagnosis Breast cancer screening by mammogram Dense breast Inconclusive mammogram documented in this encounter [facility] for referral (narrative)* Diagnostic Procedure Only (Routine) - Pending Review Specialty Diagnoses / Procedures Referred By Conttoribio t Referred To Contact [facility] Diagnoses Breast cancer screening by mammogram Dense breast Procedures DANAY SCREENING W HANNAH SCREENING DIGITAL BREAST TOMOSYNTHESIS BI SCREENING MAMMOGRAPHY BI 2-VIEW BREAST INC CAD Argelia Thomson MD [address] [place] [address] [facility] [address] [place] [address] Referral ID Status Reason Start Date Expiration Date Visits Requested Visits Authorized [id number] Pending Review Auto-Generat ed Referral 04/16/2022 05/16/2023 1 1 [facility] for visit Narrative* Diagnostic Procedure Only (Routine) - Closed Specialty Diagnoses / Procedures Referred By Contac t Referred To Contact [facility] Diagnoses Breast cancer screening by mammogram Dense breast Procedures DANAY SCREENING W HANNAH SCREENING DIGITAL BREAST TOMOSYNTHESIS BI SCREENING MAMMOGRAPHY BI 2-VIEW BREAST INC CAD Argelia Thomson MD [address] [place] [address] [facility] [address] [place] [address] Referral ID Status Reason Start Date Expiration Date V isits Requested Visits Authorized [id number] Closed Auto-Generate d Referral 04/16/2022 05/16/2023 1 1 [facility] Advance Directives Documents on File Type Date Recorded Patient Service Order Expediter Expl anation Advance Directive(s) 08/05/2018 11:13 AM Advance Directive(s) 01/13/2010 11:03 AM Documents on File Type Date Recorded Patient Service Order Expediter Expl anation Advance Directive(s) 01/13/2010 11:03 AM Documents on File Type Date Recorded Patient Service Order Expediter Expl anation Advance Directive(s) 01/13/2010 11:03 AM Summary Purpose Family History No Family History Records Found Additional Source Comments Source Comments (unrecognize d section and content) In the event this informatio n is protected by the Federal Confidentiality of Alcohol and Drug Abuse Patient Records regulations: The Federal rules restrict any use of the information to criminally investigate or prosecute any alcohol or drug abuse patient.[facility] the event this information is protected by the Federal Confidentiality of Alcohol and Drug Abuse Patient Records regulations: The Federal rules restrict any use of the information to criminally investigate or prosecute any alcohol or drug abuse patient.[facility] the event this information is protected by the Federal Confidentiality of Alcohol and Drug Abuse Patient Records regulations: The Federal rules restrict any use of the information to criminally investigate or prosecute any alcohol or drug abuse patient.[facility] the event this information is protected by the Federal Confidentiality of Alcohol and Drug Abuse Patient Records regulations: The Federal rules restrict any use of the information to criminally investigate or prosecute any alcohol or drug abuse patient.[facility] the event this information is protected by the Federal Confidentiality of Alcohol and Drug Abuse Patient Records regulations: The Federal rules restrict any use of the information to criminally investigate or prosecute any alcohol or drug abuse patient.[facility] the event this information is protected by the Federal Confidentiality of Alcohol and Drug Abuse Patient Records regulations: The Federal rules restrict any use of the information to criminally investigate or prosecute any alcohol or drug abuse patient.[facility] the event this information is protected by the Federal Confidentiality of Alcohol and Drug Abuse Patient Records regulations: The Federal rules restrict any use of the information to criminally investigate or prosecute any alcohol or drug abuse patient.[facility] the event this information is protected by the Federal Confidentiality of Alcohol and Drug Abuse Patient Records regulations: The Federal rules restrict any use of the information to criminally investigate or prosecute any alcohol or drug abuse patient.[facility] the event this information is protected by the Federal Confidentiality of Alcohol and Drug Abuse Patient Records regulations: The Federal rules restrict any use of the information to criminally investigate or prosecute any alcohol or drug abuse patient.[facility] the event this information is protected by the Federal Confidentiality of Alcohol and Drug Abuse Patient Records regulations: The Federal rules restrict any use of the information to criminally investigate or prosecute any alcohol or drug abuse patient.[facility] Hospital[facility] the event this information is protected by the Federal Confidentiality of Alcohol and Drug Abuse Patient Records regulations: The Federal rules restrict any use of the information to criminally investigate or prosecute any alcohol or drug abuse patient.[facility] Hospital[facility] the event this information is protected by the Federal Confidentiality of Alcohol and Drug Abuse Patient Records regulations: The Federal rules restrict any use of the information to criminally investigate or prosecute any alcohol or drug abuse patient.[facility] HospitalIn the event this information is protected by the Federal Confidentiality of Alcohol and Drug Abuse Patient Records regulations: The Federal rules restrict any use of the information to criminally investigate or prosecute any alcohol or drug abuse patient.[facility] Reason for Visit (unrecogniz ed section and content) Reason Onset Date Comments Refill Request 05/18/2021 Reason Onset Date Comments Anticoagulation 05/26/2021 Reason Comments Ear Problem right ear feels like a furnace is running and has cold symptoms x 1 day Reason Comments Patient Update Reason Onset Date Comments Population Health Navigation Outreach 09/25/2021 [facility] Reason Comments Future Appointment Reason Comments Opened In Error Reason Onset Date Comments Allied Health Visit 07/04/2022 Medication A dherence Outreach Reason Comments Results Care Teams (unrecognized sec tion and content) 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 Relationship Specialty Start Date End Date Bernardo Giang MD [address] [place] [address] PCP - General Internal Medicine 03/11/12 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 Relationship Specialty Start Date End Date Bernardo Giang MD [address] [place] [address] PCP - General Internal Medicine 03/11/12 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 Relationship Specialty Start Date End Date Bernardo Giang MD [address] [place] [address] PCP - General Internal Medicine 03/11/12 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 Relationship Specialty Start Date End Date Bernardo Giang MD [address] [place] [address] PCP - General Internal Medicine 03/11/12 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 Relationship Specialty Start Date End Date Bernardo Giang MD [address] [place] [address] PCP - General Internal Medicine 03/11/12 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 Relationship Specialty Start Date End Date Bernardo Giang MD [address] [place] [address] PCP - General Internal Medicine 03/11/12 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 Relationship Specialty Start Date End Date Kody Erazo Chi [address] [place] [address] PCP - General Gerontology 02/22/22 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 Relationship Specialty Start Date End Date Kody Erazo Chi [address] [place] [address] PCP - General Gerontology 02/22/22 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 Relationship Specialty Start Date End Date Kdoy Erazo Chi [address] [place] [address] PCP - General Gerontology 02/22/22 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 This clinical summary was aggregated from multiple sources. Caution should be exercised in using it in the provision of clinical care. This summary normalizes information from multiple sources, and as a consequence, information in this document may materially change the coding, format and clinical context of patient data. In addition, data may be omitted in some cases. CLINICAL DECISIONS SHOULD BE BASED ON THE PRIMARY CLINICAL RECORDS. [employer] [facility]. provides no warranty or guarantee of the accuracy or completeness of information in this document.
[2023-03-07 12:22] LABS: Absolute Lymphocyte Count 1.79 X10^3/uL (0.83-4.51); Absolute Neutrophil Count 2.9 X10^3/uL (2.0-7.7); Basophil# 0.02 X10^3/uL; Basophil% 0.4 % (0-1); Eosinophil# 0.22 X10^3/uL; Hematocrit 33.5 % (37-47); Hemoglobin 10.3 g/dL (12.0-15.0); Lymphocyte # 1.79 X10^3/ul (0.83-4.51); Lymphocyte % 32.4 % (19-41); Mean Corp Hgb Conc 30.7 g/dL (32-36); Mean Corpuscular Hgb 30.7 pg (27.0-32.0); Mean Corpuscular Volume 99.7 fL (81-99); Mean Platelet Vol. 10.2 fl (6.2-12.0); Monocyte# 0.56 X10^3/uL; Monocyte% 10.1 % (0-10); NRBC Flagged by Analyzer 0 % (0-5); Neutrophil % 52.6 % (47-70); Platelet Count 193 K/mm3 (150-450); RBC Distribution Width CV 12.8 % (11.6-14.6); RBC Distribution Width SD 46.8 fl (35.1-43.9); Red Blood Count 3.36 M/mm3 (4.2-5.4); White Blood Count 5.5 K/mm3 (4.4-11.0)
[2023-03-07 13:08] LABS: ALB/GLOB Ratio 1.2 RATIO (0.9-2.4); AST(SGOT) 24 U/L (15-37); Alanine Aminotransfer ALT/SGPT 30 U/L (13-56); Alkaline Phosphatase 92 U/L (45-117); Anion Gap 7 (5-15); BUN 46 mg/dL (7-18); BUN/Creat Ratio 29.7 RATIO (10-20); Calcium,Total 9.5 mg/dL (8.5-10.1); Chloride 111 mmol/L (98-107); Creatinine, Serum 1.55 mg/dL (0.55-1.02); EST Glomerular Filtration Rate 35 mL/min (>60); Est Glom Filt Rate - Afr Amer 42 mL/min (>60); Globulin 3.4 g/dL (2.2-4.2); Glucose 144 mg/dL (74-106); Potassium 4.6 mmol/L (3.5-5.1); Protein, Total 7.4 g/dL (6.4-8.2); Sodium Level 141 mmol/L (136-145); Thyroid Stim Hormone (TSH) 1.41 uIU/mL (0.358-3.74)
[2023-03-07 14:26] LABS: Vitamin D,25 Hydroxy 52.1 ng/mL
== END | disposition home or self-care (01) ==
LOC: POLAB3 09:59
PROVIDERS: PCP Family Medicine Geriatric Medicine; Visit Provider Family Medicine Geriatric Medicine
DX: E11.65 Type 2 diabetes mellitus with hyperglycemia (principal); I10 Essential (primary) hypertension; E55.9 Vitamin D deficiency, unspecified
CPT/HCPCS: 36415; 80053; 82306; 84443; 85025

== ENCOUNTER → 2023-04-23 | Outpatient (CLI) | payer MEDICARE, SELFPAY ==
--- NOTE | 2023-04-23 16:45 | RAD_ITS ---
INDICATION: WHEEZING EXAMINATION/TECHNIQUE: X-RAY - XR Chest 2 Views COMPARISON: Prior study dated: 08/08/2022 FINDINGS: LINES/DEVICES: None. LUNGS: The right lower lobe infiltrate/atelectasis. No definite pleural effusions. The left lung is essentially clear. MEDIASTINUM AND CARDIOVASCULAR STRUCTURES: Cardiac silhouette not enlarged. Central airways and mediastinal contour are unremarkable. BONES AND SOFT TISSUES: Degenerative changes of the thoracic spine. RAD/Chest PA and Lateral IMPRESSION: Right lower lobe stranding could be due to atelectasis or less likely pneumonia. Electronically Signed: Nilesh Garcia MD at 10:35 EST ,
== END | disposition home or self-care (01) ==
LOC: RAD 16:38
PROVIDERS: PCP Family Medicine Geriatric Medicine; Referring Provider Family Medicine Geriatric Medicine; Visit Provider Family Medicine Geriatric Medicine
DX: R06.2 Wheezing (principal)
CPT/HCPCS: 71046

== ENCOUNTER → 2023-05-06 | Outpatient (CLI) | payer MEDICARE, SELFPAY ==
[2023-05-06 16:43] LABS: Albumin, Serum 3.6 g/dL (3.2-5.0); BUN 33 mg/dL (7-18); BUN/Creat Ratio 22.1 RATIO (10-20); Calcium,Total 9.1 mg/dL (8.5-10.1); Chloride 112 mmol/L (98-107); Creatinine, Serum 1.49 mg/dL (0.55-1.02); EST Glomerular Filtration Rate 37 mL/min (>60); Est Glom Filt Rate - Afr Amer 44 mL/min (>60); Glucose 134 mg/dL (74-106); Phosphorus 3.9 mg/dL (2.5-4.9); Potassium 5.4 mmol/L (3.5-5.1); Sodium Level 141 mmol/L (136-145)
== END | disposition home or self-care (01) ==
LOC: LAB 15:04
PROVIDERS: PCP Family Medicine Geriatric Medicine; Referring Provider Internal Medicine Nephrology; Visit Provider Internal Medicine Nephrology
DX: N18.32 Chronic kidney disease, stage 3b (principal)
CPT/HCPCS: 36415; 80069

== ENCOUNTER → 2023-05-08 | Outpatient (CLI) | payer MEDICARE, SELFPAY ==
[2023-05-08 11:31] LABS: Anion Gap 8 (5-15); BUN 33 mg/dL (7-18); BUN/Creat Ratio 23.4 RATIO (10-20); Calcium,Total 9.2 mg/dL (8.5-10.1); Chloride 111 mmol/L (98-107); Creatinine, Serum 1.41 mg/dL (0.55-1.02); EST Glomerular Filtration Rate 39 mL/min (>60); Est Glom Filt Rate - Afr Amer 47 mL/min (>60); Glucose 131 mg/dL (74-106); Sodium Level 142 mmol/L (136-145)
== END | disposition home or self-care (01) ==
LOC: POLAB3 09:31
PROVIDERS: PCP Family Medicine Geriatric Medicine; Visit Provider Internal Medicine Nephrology
DX: E87.5 Hyperkalemia (principal)
CPT/HCPCS: 36415; 80048

== ENCOUNTER → 2023-06-07 | Outpatient (CLI) | payer MEDICARE, SELFPAY ==
[2023-06-07 11:27] LABS: Absolute Lymphocyte Count 2.15 X10^3/uL (0.83-4.51); Absolute Neutrophil Count 2.7 X10^3/uL (2.0-7.7); Basophil# 0.02 X10^3/uL; Basophil% 0.4 % (0-1); Eosinophil# 0.26 X10^3/uL; Eosinophils% 4.6 % (0-5); Hemoglobin 9.8 g/dL (12.0-15.0); Lymphocyte # 2.15 X10^3/ul (0.83-4.51); Lymphocyte % 38.3 % (19-41); Mean Corp Hgb Conc 29.7 g/dL (32-36); Mean Corpuscular Hgb 29.3 pg (27.0-32.0); Mean Corpuscular Volume 98.5 fL (81-99); Monocyte# 0.48 X10^3/uL; Monocyte% 8.6 % (0-10); NRBC Flagged by Analyzer 0 % (0-5); Neutrophil # 2.67 X10^3/uL (2.7-7.7); Neutrophil % 47.6 % (47-70); Platelet Count 164 K/mm3 (150-450); RBC Distribution Width CV 13.6 % (11.6-14.6); RBC Distribution Width SD 49.6 fl (35.1-43.9); Red Blood Count 3.35 M/mm3 (4.2-5.4); White Blood Count 5.6 K/mm3 (4.4-11.0)
[2023-06-07 12:09] LABS: AST(SGOT) 22 U/L (15-37); Alanine Aminotransfer ALT/SGPT 30 U/L (13-56); Albumin, Serum 3.7 g/dL (3.2-5.0); Alkaline Phosphatase 105 U/L (45-117); Anion Gap 4 (5-15); BUN 46 mg/dL (7-18); BUN/Creat Ratio 31.7 RATIO (10-20); Calcium,Total 9.5 mg/dL (8.5-10.1); Chloride 112 mmol/L (98-107); Creatinine, Serum 1.45 mg/dL (0.55-1.02); EST Glomerular Filtration Rate 38 mL/min (>60); Est Glom Filt Rate - Afr Amer 46 mL/min (>60); Globulin 3.7 g/dL (2.2-4.2); Glucose 105 mg/dL (74-106); Potassium 5.3 mmol/L (3.5-5.1); Protein, Total 7.4 g/dL (6.4-8.2); Sodium Level 141 mmol/L (136-145); Thyroid Stim Hormone (TSH) 2.15 uIU/mL (0.358-3.74)
[2023-06-07 12:34] LABS: Vitamin D,25 Hydroxy 57.4 ng/mL
== END | disposition home or self-care (01) ==
LOC: POLAB3 10:08
PROVIDERS: PCP Family Medicine Geriatric Medicine; Visit Provider Family Medicine Geriatric Medicine
DX: E11.65 Type 2 diabetes mellitus with hyperglycemia (principal); I10 Essential (primary) hypertension; E55.9 Vitamin D deficiency, unspecified
CPT/HCPCS: 36415; 80053; 82306; 84443; 85025

== ENCOUNTER → 2023-06-10 | Outpatient (CLI) | payer MEDICARE, SELFPAY ==
[2023-06-10 13:40] LABS: Anion Gap 5 (5-15); BUN 34 mg/dL (7-18); BUN/Creat Ratio 26.2 RATIO (10-20); Calcium,Total 9.4 mg/dL (8.5-10.1); Chloride 108 mmol/L (98-107); EST Glomerular Filtration Rate 43 mL/min (>60); Est Glom Filt Rate - Afr Amer 52 mL/min (>60); Glucose 131 mg/dL (74-106); Potassium 4.6 mmol/L (3.5-5.1); Sodium Level 140 mmol/L (136-145)
== END | disposition home or self-care (01) ==
LOC: LAB 12:43
PROVIDERS: PCP Family Medicine Geriatric Medicine; Visit Provider Family Medicine Geriatric Medicine
DX: E11.65 Type 2 diabetes mellitus with hyperglycemia (principal); I10 Essential (primary) hypertension
CPT/HCPCS: 36415; 80048

== ENCOUNTER 2023-07-08 08:55 | Emergency (ER) | payer MEDICARE, SELFPAY ==
[2023-07-08 08:57] VITALS: BP 152/85; PULSE 81; RESP 18; TEMP 35.9; O2SAT 100; BMI 27.3
[2023-07-08 09:01] VITALS: BMI 27.4
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
[2023-07-08 10:27] VITALS: BP 132/86; PULSE 81; RESP 16; TEMP 36.1; O2SAT 97
== END 2023-07-08 10:30 | disposition home or self-care (01) ==
PROVIDERS: Emergency Provider Emergency Medicine; PCP Family Medicine Geriatric Medicine; Visit Provider Emergency Medicine
DX: S20.219A Contusion of unspecified front wall of thorax, initial encounter (principal); I48.0 Paroxysmal atrial fibrillation; E11.22 Type 2 diabetes mellitus with diabetic chronic kidney disease; N18.30 Chronic kidney disease, stage 3 unspecified; S90.32XA Contusion of left foot, initial encounter; Y04.8XXA Assault by other bodily force, initial encounter; Z79.01 Long term (current) use of anticoagulants; Z87.891 Personal history of nicotine dependence; Z86.718 Personal history of other venous thrombosis and embolism; Y92.009 Unspecified place in unspecified non-institutional (private) residence as the place of occurrence of the external cause; E78.5 Hyperlipidemia, unspecified; I12.9 Hypertensive chronic kidney disease with stage 1 through stage 4 chronic kidney disease, or unspecified chronic kidney disease; J45.909 Unspecified asthma, uncomplicated; Z79.51 Long term (current) use of inhaled steroids; Z79.899 Other long term (current) drug therapy; Z96.641 Presence of right artificial hip joint; Z90.710 Acquired absence of both cervix and uterus; Z96.651 Presence of right artificial knee joint; Z90.722 Acquired absence of ovaries, bilateral; Z98.51 Tubal ligation status
CPT/HCPCS: 71046; 73630; 99283

== ENCOUNTER → 2023-08-30 | Outpatient (CLI) | payer MEDICARE, SELFPAY ==
[2023-08-30 12:29] LABS: Absolute Lymphocyte Count 1.84 X10^3/uL (0.83-4.51); Absolute Neutrophil Count 2.7 X10^3/uL (2.0-7.7); Basophil# 0.03 X10^3/uL; Basophil% 0.5 % (0-1); Eosinophil# 0.27 X10^3/uL; Eosinophils% 4.8 % (0-5); Hematocrit 35.4 % (37-47); Lymphocyte # 1.84 X10^3/ul (0.83-4.51); Mean Corp Hgb Conc 31.1 g/dL (32-36); Mean Corpuscular Hgb 30.5 pg (27.0-32.0); Mean Corpuscular Volume 98.1 fL (81-99); Mean Platelet Vol. 9.8 fl (6.2-12.0); Monocyte# 0.72 X10^3/uL; Monocyte% 12.9 % (0-10); NRBC Flagged by Analyzer 0 % (0-5); Neutrophil # 2.69 X10^3/uL (2.7-7.7); Neutrophil % 48.3 % (47-70); Platelet Count 203 K/mm3 (150-450); RBC Distribution Width CV 13.5 % (11.6-14.6); RBC Distribution Width SD 48.8 fl (35.1-43.9); Red Blood Count 3.61 M/mm3 (4.2-5.4); White Blood Count 5.6 K/mm3 (4.4-11.0)
[2023-08-30 12:58] LABS: Vitamin D,25 Hydroxy 58.6 ng/mL
[2023-08-30 13:38] LABS: ALB/GLOB Ratio 1.1 RATIO (0.9-2.4); AST(SGOT) 21 U/L (15-37); Alanine Aminotransfer ALT/SGPT 25 U/L (13-56); Alkaline Phosphatase 110 U/L (45-117); Anion Gap 7 (5-15); BUN 49 mg/dL (7-18); BUN/Creat Ratio 30.4 RATIO (10-20); Calcium,Total 9.9 mg/dL (8.5-10.1); Chloride 111 mmol/L (98-107); Creatinine, Serum 1.61 mg/dL (0.55-1.02); EST Glomerular Filtration Rate 33 mL/min (>60); Est Glom Filt Rate - Afr Amer 40 mL/min (>60); Globulin 3.7 g/dL (2.2-4.2); Glucose 119 mg/dL (74-106); Potassium 5.3 mmol/L (3.5-5.1); Protein, Total 7.7 g/dL (6.4-8.2); Sodium Level 141 mmol/L (136-145)
[2023-09-03 11:23] LABS: Thyroid Stim Hormone (TSH) 1.75 uIU/mL (0.358-3.74)
== END | disposition home or self-care (01) ==
LOC: LAB 11:13
PROVIDERS: PCP Family Medicine Geriatric Medicine; Referring Provider Family Medicine Geriatric Medicine; Visit Provider Family Medicine Geriatric Medicine
DX: E11.65 Type 2 diabetes mellitus with hyperglycemia (principal); I10 Essential (primary) hypertension; E55.9 Vitamin D deficiency, unspecified
CPT/HCPCS: 36415; 80053; 82306; 84443; 85025

== ENCOUNTER → 2023-09-03 | Outpatient (CLI) | payer MEDICARE, SELFPAY ==
[2023-09-03 17:41] LABS: Absolute Lymphocyte Count 1.92 X10^3/uL (0.83-4.51); Absolute Neutrophil Count 2.4 X10^3/uL (2.0-7.7); Basophil# 0.02 X10^3/uL; Basophil% 0.4 % (0-1); Eosinophil# 0.21 X10^3/uL; Eosinophils% 4.1 % (0-5); Hematocrit 34.1 % (37-47); Hemoglobin 10.5 g/dL (12.0-15.0); Lymphocyte # 1.92 X10^3/ul (0.83-4.51); Lymphocyte % 37.8 % (19-41); Mean Corp Hgb Conc 30.8 g/dL (32-36); Mean Corpuscular Hgb 29.7 pg (27.0-32.0); Mean Corpuscular Volume 96.6 fL (81-99); Mean Platelet Vol. 9.2 fl (6.2-12.0); Monocyte# 0.54 X10^3/uL; Monocyte% 10.6 % (0-10); NRBC Flagged by Analyzer 0 % (0-5); Neutrophil # 2.36 X10^3/uL (2.7-7.7); Neutrophil % 46.5 % (47-70); Platelet Count 179 K/mm3 (150-450); RBC Distribution Width CV 13.3 % (11.6-14.6); RBC Distribution Width SD 47.3 fl (35.1-43.9); Red Blood Count 3.53 M/mm3 (4.2-5.4); White Blood Count 5.1 K/mm3 (4.4-11.0)
[2023-09-03 18:25] LABS: AST(SGOT) 27 U/L (15-37); Alanine Aminotransfer ALT/SGPT 30 U/L (13-56); Albumin, Serum 3.7 g/dL (3.2-5.0); Alkaline Phosphatase 110 U/L (45-117); Anion Gap 6 (5-15); BUN 54 mg/dL (7-18); BUN/Creat Ratio 33.8 RATIO (10-20); CPK Total, Creatine Kinase 179 U/L (26-192); Calcium,Total 9.3 mg/dL (8.5-10.1); Chloride 108 mmol/L (98-107); EST Glomerular Filtration Rate 34 mL/min (>60); Est Glom Filt Rate - Afr Amer 41 mL/min (>60); Globulin 3.6 g/dL (2.2-4.2); Glucose 131 mg/dL (74-106); Potassium 4.4 mmol/L (3.5-5.1); Protein, Total 7.3 g/dL (6.4-8.2); Sodium Level 141 mmol/L (136-145); Troponin-I HS 14 pg/mL (3.0-54.0)
[2023-09-05 12:10] LABS: Myoglobin, Serum 79 ng/mL (25-58)
== END | disposition home or self-care (01) ==
LOC: LAB 17:03
PROVIDERS: PCP Family Medicine Geriatric Medicine; Referring Provider Family Medicine Geriatric Medicine; Visit Provider Family Medicine Geriatric Medicine
DX: I10 Essential (primary) hypertension (principal); R07.9 Chest pain, unspecified
CPT/HCPCS: 36415; 80053; 82550; 83874; 84484; 85025

== ENCOUNTER → 2023-11-29 | Outpatient (CLI) | payer MEDICARE, SELFPAY ==
[2023-11-29 12:18] LABS: Absolute Lymphocyte Count 1.91 X10^3/uL (0.83-4.51); Absolute Neutrophil Count 3.1 X10^3/uL (2.0-7.7); Basophil# 0.03 X10^3/uL; Basophil% 0.5 % (0-1); Eosinophil# 0.34 X10^3/uL; Eosinophils% 5.7 % (0-5); Hematocrit 32.8 % (37-47); Hemoglobin 10.2 g/dL (12.0-15.0); Lymphocyte # 1.91 X10^3/ul (0.83-4.51); Lymphocyte % 32.2 % (19-41); Mean Corp Hgb Conc 31.1 g/dL (32-36); Mean Corpuscular Hgb 29.9 pg (27.0-32.0); Mean Corpuscular Volume 96.2 fL (81-99); Mean Platelet Vol. 9.9 fl (6.2-12.0); Monocyte# 0.53 X10^3/uL; Monocyte% 8.9 % (0-10); NRBC Flagged by Analyzer 0 % (0-5); Neutrophil # 3.09 X10^3/uL (2.7-7.7); Neutrophil % 52.2 % (47-70); Platelet Count 177 K/mm3 (150-450); RBC Distribution Width CV 13.1 % (11.6-14.6); RBC Distribution Width SD 45.8 fl (35.1-43.9); Red Blood Count 3.41 M/mm3 (4.2-5.4); White Blood Count 5.9 K/mm3 (4.4-11.0)
[2023-11-29 13:07] LABS: Vitamin D,25 Hydroxy 51.8 ng/mL
[2023-11-29 13:16] LABS: AST(SGOT) 22 U/L (15-37); Alanine Aminotransfer ALT/SGPT 25 U/L (13-56); Albumin, Serum 3.7 g/dL (3.2-5.0); Alkaline Phosphatase 111 U/L (45-117); Anion Gap 4 (5-15); BUN 43 mg/dL (7-18); BUN/Creat Ratio 26.5 RATIO (10-20); Calcium,Total 9.6 mg/dL (8.5-10.1); Chloride 112 mmol/L (98-107); Creatinine, Serum 1.62 mg/dL (0.55-1.02); EST Glomerular Filtration Rate 33 mL/min (>60); Est Glom Filt Rate - Afr Amer 40 mL/min (>60); Globulin 3.8 g/dL (2.2-4.2); Glucose 138 mg/dL (74-106); Potassium 5.2 mmol/L (3.5-5.1); Protein, Total 7.5 g/dL (6.4-8.2); Sodium Level 140 mmol/L (136-145)
== END | disposition home or self-care (01) ==
LOC: LAB 11:40
PROVIDERS: PCP Family Medicine Geriatric Medicine; Referring Provider Family Medicine Geriatric Medicine; Visit Provider Family Medicine Geriatric Medicine
DX: E11.65 Type 2 diabetes mellitus with hyperglycemia (principal); I10 Essential (primary) hypertension; E55.9 Vitamin D deficiency, unspecified
CPT/HCPCS: 36415; 80053; 82306; 84443; 85025

== ENCOUNTER → 2023-12-12 | Outpatient (CLI) | payer MEDICARE, SELFPAY ==
[2023-12-12 11:05] LABS: Hematocrit 32.7 % (37-47); Hemoglobin 10.1 g/dL (12.0-15.0); Mean Corp Hgb Conc 30.9 g/dL (32-36); Mean Corpuscular Hgb 29.8 pg (27.0-32.0); Mean Corpuscular Volume 96.5 fL (81-99); Mean Platelet Vol. 9.8 fl (6.2-12.0); Platelet Count 183 K/mm3 (150-450); RBC Distribution Width CV 13.1 % (11.6-14.6); RBC Distribution Width SD 46.5 fl (35.1-43.9); Red Blood Count 3.39 M/mm3 (4.2-5.4); White Blood Count 4.8 K/mm3 (4.4-11.0)
[2023-12-12 11:29] LABS: Albumin, Serum 3.6 g/dL (3.2-5.0); BUN 33 mg/dL (7-18); BUN/Creat Ratio 21.2 RATIO (10-20); Calcium,Total 9.6 mg/dL (8.5-10.1); Chloride 112 mmol/L (98-107); Creatinine, Serum 1.56 mg/dL (0.55-1.02); EST Glomerular Filtration Rate 35 mL/min (>60); Est Glom Filt Rate - Afr Amer 42 mL/min (>60); Glucose 186 mg/dL (74-106); Potassium 4.4 mmol/L (3.5-5.1); Sodium Level 142 mmol/L (136-145)
[2023-12-12 11:32] LABS: Albumin, Serum 3.7 g/dL (3.2-5.0)
[2023-12-12 13:38] LABS: Microalbumin,Random Urine 89.9 mg/L (NO RANGE EST.)
== END | disposition home or self-care (01) ==
LOC: POLAB3 10:33
PROVIDERS: PCP Family Medicine Geriatric Medicine; Visit Provider Internal Medicine Nephrology
DX: E11.22 Type 2 diabetes mellitus with diabetic chronic kidney disease (principal); N18.32 Chronic kidney disease, stage 3b
CPT/HCPCS: 36415; 80069; 82040; 82043; 82570; 85027

== ENCOUNTER → 2024-03-19 | Outpatient (CLI) | payer MEDICARE, SELFPAY ==
[2024-03-19 11:26] LABS: Albumin, Serum 3.7 g/dL (3.2-5.0); BUN 41 mg/dL (7-18); BUN/Creat Ratio 23.8 RATIO (10-20); Calcium,Total 9.3 mg/dL (8.5-10.1); Chloride 110 mmol/L (98-107); Creatinine, Serum 1.72 mg/dL (0.55-1.02); EST Glomerular Filtration Rate 31 mL/min (>60); Est Glom Filt Rate - Afr Amer 37 mL/min (>60); Glucose 175 mg/dL (74-106); Potassium 4.6 mmol/L (3.5-5.1); Sodium Level 141 mmol/L (136-145)
== END | disposition home or self-care (01) ==
LOC: POLAB3 10:17
PROVIDERS: PCP Family Medicine Geriatric Medicine; Visit Provider Internal Medicine Nephrology
DX: N18.32 Chronic kidney disease, stage 3b (principal)
CPT/HCPCS: 36415; 80069

== ENCOUNTER → 2024-03-27 | Outpatient (CLI) | payer MEDICARE, SELFPAY ==
[2024-03-27 12:22] LABS: Hematocrit 34.7 % (37-47); Hemoglobin 10.8 g/dL (12.0-15.0); Mean Corp Hgb Conc 31.1 g/dL (32-36); Mean Corpuscular Hgb 30.3 pg (27.0-32.0); Mean Corpuscular Volume 97.5 fL (81-99); Mean Platelet Vol. 10.1 fl (6.2-12.0); Platelet Count 214 K/mm3 (150-450); RBC Distribution Width CV 13.2 % (11.6-14.6); RBC Distribution Width SD 47.8 fl (35.1-43.9); Red Blood Count 3.56 M/mm3 (4.2-5.4)
[2024-03-27 12:25] LABS: Albumin, Serum 3.6 g/dL (3.2-5.0); BUN 34 mg/dL (7-18); BUN/Creat Ratio 22.5 RATIO (10-20); Calcium,Total 9.6 mg/dL (8.5-10.1); Chloride 112 mmol/L (98-107); Creatinine, Serum 1.51 mg/dL (0.55-1.02); EST Glomerular Filtration Rate 36 mL/min (>60); Est Glom Filt Rate - Afr Amer 43 mL/min (>60); Glucose 203 mg/dL (74-106); Phosphorus 3.9 mg/dL (2.5-4.9); Potassium 5.3 mmol/L (3.5-5.1); Sodium Level 140 mmol/L (136-145)
[2024-03-27 12:38] LABS: Microalbumin,Random Urine 56.5 mg/L (NO RANGE EST.)
== END | disposition home or self-care (01) ==
LOC: POLAB3 11:32
PROVIDERS: PCP Family Medicine Geriatric Medicine; Visit Provider Internal Medicine Nephrology
DX: E11.22 Type 2 diabetes mellitus with diabetic chronic kidney disease (principal); N18.32 Chronic kidney disease, stage 3b; D64.9 Anemia, unspecified; R68.83 Chills (without fever)
CPT/HCPCS: 36415; 80069; 82043; 82570; 85027; 87631

== ENCOUNTER 2024-04-17 10:31 | Emergency (ER) | payer MEDICARE, SELFPAY ==
[2024-04-17 10:33] VITALS: BP 137/88; PULSE 74; RESP 18; TEMP 36.2; O2SAT 98
--- NOTE | 2024-04-17 11:04 | EDS_ITS ---
HPI History of Present Illness Chief Complaint: Nosebleed Informant: patient Narrative Narrative: 73-year-old female on Xarelto with a history of PE A-fib DVT presenting to the emergency room with a chief complaint of epistaxis. Patient states this morning she began to have bleeding from the left naris. Has persisted so she came to the emergency department. She states she has not had difficulty in the past with nosebleeds. She notes that she has had a upper respiratory infection and has been blowing and wiping her nose frequently. [facility] Medical History (Updated 04/17/24 @ 13:[address] New Villafuerte, ) Benign essential HTN Aortic root dilatation Cardiomyopathy Chronic kidney disease, stage 3 Nonrheumatic aortic (valve) stenosis Nonrheumatic tricuspid (valve) insufficiency Nonrheumatic mitral (valve) insufficiency Hemorrhoids Atrophic vaginitis Mixed incontinence Postlaminectomy syndrome (02/01/16) Lung nodule (10/28/14) Lichen simplex chronicus (10/20/10) Left foot drop (04/24/13) Osteoarthritis Lumbar stenosis Degenerative joint disease of right knee History of colitis (10/19/10) Hyperlipidemia History of pulmonary embolus (PE) (10/30/06) Scoliosis Asthma History of DVT (deep vein thrombosis) (10/30/06) Anemia (04/10/17) History of syncope (10/01/17) Paroxysmal atrial fibrillation (03/13/18) DM2 (diabetes mellitus, type 2) Chronic bronchitis Syncope Home Medications ?Medication ?Instructions ?Recorded ?Last Taken ?Type fluticasone 100 mcg-salmeterol 50 1 puff inhalation BI D asthma 01/29/13 Unknown History mcg/dose blistr powdr for inhalation ferrous gluconate 324 mg (37.5 mg 325 mg PO BID iron 0 05/29/18 Unknown History iron) tablet sennosides 8.6 mg-docusate sodium 2 tab PO BID PRN Con stipation 04/15/19 Unknown History 50 mg tablet albuterol sulfate 2.5 mg/3 mL 2.5 mg inhalation Q4H MI N 04/23/19 Unknown History (0.083 %) solution for nebulization shortness of breat h or wheezing acetaminophen 650 mg 650 mg PO Q8H 12/05/21 Unkno wn History tablet,extended release (Tylenol Arthritis Pain) albuterol sulfate 90 mcg/actuation 2 puff inhalation 4 X/DAY PRN asthma 12/05/21 Unknown History aerosol inhaler estradiol 10 mcg vaginal tablet 10 mcg vaginal .QMR ho rmone 12/05/21 Unknown History famotidine 40 mg tablet 40 mg PO DAILY 12/05/21 Unkn own History cetirizine 10 mg tablet 10 mg PO DAILY PRN allergy s ymptoms 06/21/22 Unknown History gabapentin 600 mg tablet 600 mg PO TID 06/21/22 Unkno wn History pioglitazone 30 mg tablet 30 mg PO DAILY 06/21/22 Unkn own History rivaroxaban 15 mg tablet (Xarelto) 15 mg PO DAILY #90 tabs 12/19/22 Unknown Rx atorvastatin 40 mg tablet 40 mg PO DAILY #90 tabs 03/21 10/12 Unknown Rx carvedilol 3.125 mg tablet (Coreg) 3.125 mg PO BID #18 0 tabs 04/07/24 Unknown Rx lisinopril 2.5 mg tablet 2.5 mg PO DAILY #90 tabs Unknown Rx Allergy/AdvReac Type Severity Reaction Status Date / Time cider vinegar Allergy NEEDS Verified 04/17/24 10:33 FOLLOW-UP cottonseed oil Allergy NEEDS Verified 04/17/24 10:33 FOLLOW-UP grass pollen Allergy NEEDS Verified 04/17/24 10:33 FOLLOW-UP morphine Allergy Unknown Verified 04/17/24 10:33 oxycodone HCl (From Allergy Unknown Verified 04/17/24 10:33 OxyContin) propoxyphene HCl (From Allergy Unknown Verified 04/17/24 10:33 Darvon) wool Allergy NEEDS Verified 04/17/24 10:33 FOLLOW-UP chlorhexidine AdvReac Rash Verified 04/17/24 10:33 feathers AdvReac NEEDS Verified 04/17/24 10:33 FOLLOW-UP Family History Mother CAD (coronary artery disease) DVT (deep venous thrombosis) Hypertension Father Prostate cancer Sister Breast cancer Surgical History History of total right hip replacement (09/17/18) History of total right knee replacement (2008) History of hysterectomy (1999) History of bilateral salpingo-oophorectomy (1999) H/O transurethral destruction of bladder lesion (03/26/14) History of fractured kneecap (2007) History of partial knee replacement (2006) H/O thumb surgery (2003) Status post ORIF of fracture of ankle (1986) H/O tubal ligation (1988) History of laparoscopy (1999) History of lumbar laminectomy (11/05/12) Status post insertion of inferior vena caval filter (10/30/06) History of colonoscopy (05/17/11) History of (1988) Patellar tendon rupture History of knee replacement (09/02/06) Social History Smoking Status: Former smoker quit date: 02/18/69 alcohol intake: never substance use type: does not use caffeine: Yes Type: coffee Number of servings: 1 ROS ROS ED Constitutional Constitutional ED: Denies chills, fever(s) or weight loss Eyes Eyes: Denies change in vision or diplopia ENT ENT ED: Reports rhinorrhea and other Details: See history of present illness ; Denies ear pain or sore throat Cardiovascular Cardiovascular: Denies chest pain, orthopnea, palpitations or racing heartbeat Respiratory/Chest Respiratory/Chest: Reports cough; Denies dyspnea or orthopnea Gastrointestinal Gastrointestinal: Denies abdominal pain, diarrhea, nausea or vomiting Genitourinary Genitourinary ED: Denies dysuria, hematuria or urinary frequency Musculoskeletal Musculoskeletal: Denies arthralgias or myalgias Integumentary Denies abscess or rash Neurologic Neurologic: Denies headache(s) or weakness Psychiatric Psychiatric: Denies anxiety, depression, suicidal ideation or suicidal thoughts Endocrine Endocrinology: Denies polydipsia, polyphagia or polyuria Allergic/Immunologic Allergic/Immunologic ED: Denies mouth swelling, tongue swelling or urticaria EXAM Physical Exam Const Vital Signs: 04/17/24 10:33 04/17/24 13:20 Temperature 97.2 F L 98.9 F Temperature Source Temporal Pulse Rate 74 64 Respiratory Rate 18 18 Blood Pressure 137/88 H 135/78 H Blood Pressure Mean 104 97 Pulse Ox 98 99 Oxygen Delivery Method Room Air Positive well nourished, well developed and obese General Appearance ED: well developed and NAD Nutritional Appearance: obese HEENT Reports normocephalic, head/scalp atraumatic and moist mucous membranes HEENT Narrative: I do not appreciate any active bleeding coming from the nose. Blood clots were removed from the left naris through blowing. I do not appreciate any culprit lesion in the anterior plexus. Eyes PERRL and EOMs intact bilaterally Neck no lymphadenopathy, supple and no JVD Resp normal respiratory effort and clear to auscultation bilaterally Cardio regular rate, regular rhythm and no murmurs GI normal to inspection, nondistended, normoactive bowel sounds and non-tender Palpation: soft Back/Spine no CVA tenderness and normal ROM Extremity normal to inspection General Extremety ED: Negative for edema General Extremity: Negative for edema Neuro oriented x3 and CN's II-XII intact bilaterally Sensorium / Orientation: alert Motor Exam: strength 5/5 throughout Psych mental status grossly normal Mood & Affect: Negative for depressed or tearful Skin no rashes or lesions noted and no wounds MDM MDM MDM Narrative Medical decision making narrative: Differential diagnosis includes but not limited to anterior posterior nosebleeds thrombocytopenia anemia White count 5.5 hemoglobin 9.4 platelet count is 128. Patient received nebulized and atomized TXA. She had some continued mild bleeding which appeared to be coming from a posterior source. Therefore an anterior posterior Rhino Rocket was placed. She is at not had any further bleeding. No recommend that the packing be removed in 48 to 72 hours. Given that today is Saturday this will most likely occur on Saturday for 72 hours total. She may follow-up with us ENT or primary care. She understands that if she continues to bleed she needs to come back to emergency. Source of thrombocytopenia this may be viral related as she has been suffering from a viral URI. She has not had thrombocytopenia in the past. I do not believe it is a level that requires her to be admitted. History & Record Review Discussion w/independent historian: Patient Lab Data Attestation: I reviewed the patient's lab results. Labs: Laboratory Results - last 24 hr 04/17/24 11:54 WBC 5.5 RBC 3.06 L Hgb 9.4 L Hct 30.7 L MCV 100.3 H MCH 30.7 MCHC 30.6 L RDW Std Deviation 55.1 H RDW Coeff of [place] 14.9 H Plt Count 128 L MPV 10.0 Immature Gran % (Auto) 0.400 Neut % (Auto) 56.4 Lymph % (Auto) 27.5 [place] % (Auto) 10.3 H Eos % (Auto) 5.0 Baso % (Auto) 0.4 Absolute Neuts (auto) 3.1 Absolute Lymphs (auto) 1.50 Nucleated RBC % 0 Discharge Plan Triage Chief Complaint: Nosebleed ED Provider: New Villafuerte Dx/Rx/DC Orders Clinical Impression: Acute posterior epistaxis, Anticoagulated Prescriptions: No Action albuterol sulfate 2.5 mg /3 mL (0.083 %) solution for nebulization 2.5 mg INHALATION Q4H PRN (Reason: shortness of breath or wheezing) famotidine 40 mg tablet 40 mg PO DAILY acetaminophen [Tylenol Arthritis Pain] 650 mg tablet extended release 650 mg PO Q8H gabapentin 600 mg tablet 600 mg PO TID cetirizine 10 mg tablet 10 mg PO DAILY PRN (Reason: allergy symptoms) pioglitazone 30 mg tablet 30 mg PO DAILY fluticasone propion-salmeterol 1 PUFF inhaler 1 puff INHALATION BID albuterol sulfate 90 mcg/actuation HFA aerosol inhaler 2 puff inhalation 4X/DAY PRN (Reason: asthma) estradiol 10 mcg tablet 10 mcg vaginal .QMR Patient Comments: TWICE A WEEK ferrous gluconate 324 MG tablet 325 mg PO BID sennosides-docusate sodium 1 TABLET tablet 2 tab PO BID PRN (Reason: Constipation) Rx Instructions: Take until first bowel movement, then as needed Xarelto 15 mg tablet 15 mg PO DAILY Qty: 90 3RF Rx Instructions: must administer with evening meal atorvastatin 40 mg tablet 40 mg PO DAILY Qty: 90 3RF carvedilol [Coreg] 3.125 mg tablet 3.125 mg PO BID Qty: 180 3RF Rx Instructions: must administer with a meal/food lisinopril 2.5 mg tablet 2.5 mg PO DAILY Qty: 90 4RF Primary Care Provider: Quentin Kellogg Chi Referrals: Quentin Kellogg Chi, MD [Primary Care Provider] - (In 3 days for packing removal) Activity Restrictions/Additional Instructions: You need to leave the packing in for 48 to 72 hours. He may follow-up with ear nose and throat, primary care or the emergency department to have this removed. Print Language: Guatemalan Disposition Disposition: Home, Self Care Discharge Date/Time: 04/17/24 13:21
[2024-04-17] MEDS: TRANEXAMIC ACID 1,000 MG/10 ML ML OPERA.SITE (11:27)
[2024-04-17 12:10] LABS: Absolute Neutrophil Count 3.1 X10^3/uL (2.0-7.7); Basophil# 0.02 X10^3/uL; Basophil% 0.4 % (0-1); Eosinophil# 0.27 X10^3/uL; Hematocrit 30.7 % (37-47); Hemoglobin 9.4 g/dL (12.0-15.0); Lymphocyte % 27.5 % (19-41); Mean Corp Hgb Conc 30.6 g/dL (32-36); Mean Corpuscular Hgb 30.7 pg (27.0-32.0); Mean Corpuscular Volume 100.3 fL (81-99); Monocyte# 0.56 X10^3/uL; Monocyte% 10.3 % (0-10); NRBC Flagged by Analyzer 0 % (0-5); Neutrophil # 3.08 X10^3/uL (2.7-7.7); Neutrophil % 56.4 % (47-70); Platelet Count 128 K/mm3 (150-450); RBC Distribution Width CV 14.9 % (11.6-14.6); RBC Distribution Width SD 55.1 fl (35.1-43.9); Red Blood Count 3.06 M/mm3 (4.2-5.4); White Blood Count 5.5 K/mm3 (4.4-11.0)
[2024-04-17 13:20] VITALS: BP 135/78; PULSE 64; RESP 18; TEMP 37.2; O2SAT 99
== END 2024-04-17 13:21 | disposition home or self-care (01) ==
PROVIDERS: Emergency Provider Emergency Medicine; PCP Family Medicine Geriatric Medicine; Visit Provider Emergency Medicine
DX: R04.0 Epistaxis (principal); E11.22 Type 2 diabetes mellitus with diabetic chronic kidney disease; N18.30 Chronic kidney disease, stage 3 unspecified; E78.5 Hyperlipidemia, unspecified; Z87.891 Personal history of nicotine dependence; Z79.01 Long term (current) use of anticoagulants; I12.9 Hypertensive chronic kidney disease with stage 1 through stage 4 chronic kidney disease, or unspecified chronic kidney disease; Z86.711 Personal history of pulmonary embolism; Z86.718 Personal history of other venous thrombosis and embolism; D64.9 Anemia, unspecified; Z90.710 Acquired absence of both cervix and uterus; R05.9 Cough, unspecified; E66.9 Obesity, unspecified
CPT/HCPCS: 30905; 85025; 99282

== ENCOUNTER → 2024-05-25 | Outpatient (CLI) | payer MEDICARE, SELFPAY | END | disposition home or self-care (01) | LOC: LABSPEC 17:17 | PROVIDERS: PCP Family Medicine Geriatric Medicine; Visit Provider Family Medicine Geriatric Medicine | DX: R05.9 Cough, unspecified (principal); R06.2 Wheezing; R68.83 Chills (without fever) | CPT/HCPCS: 87631 ==

== ENCOUNTER → 2024-06-08 | Outpatient (CLI) | payer MEDICARE, SELFPAY ==
[2024-06-08 11:13] LABS: Absolute Neutrophil Count 5.1 X10^3/uL (2.0-7.7); Basophil# 0.01 X10^3/uL; Basophil% 0.1 % (0-1); Eosinophil# 0.25 X10^3/uL; Eosinophils% 3.2 % (0-5); Hematocrit 33.9 % (37-47); Hemoglobin 10.7 g/dL (12.0-15.0); Mean Corp Hgb Conc 31.6 g/dL (32-36); Mean Corpuscular Hgb 31.5 pg (27.0-32.0); Mean Corpuscular Volume 99.7 fL (81-99); Mean Platelet Vol. 9.9 fl (6.2-12.0); NRBC Flagged by Analyzer 0 % (0-5); Neutrophil # 5.05 X10^3/uL (2.7-7.7); Neutrophil % 65.3 % (47-70); Platelet Count 160 K/mm3 (150-450); RBC Distribution Width CV 14.3 % (11.6-14.6); RBC Distribution Width SD 52.1 fl (35.1-43.9); White Blood Count 7.7 K/mm3 (4.4-11.0)
[2024-06-08 12:25] LABS: ALB/GLOB Ratio 1.3 RATIO (0.9-2.4); AST(SGOT) 23 U/L (<=31); Alanine Aminotransfer ALT/SGPT 19 U/L (<=34); Albumin, Serum 4.1 g/dL (3.4-4.8); Alkaline Phosphatase 105 U/L (35-104); Anion Gap 10 (5-15); BUN 33 mg/dL (4-19); BUN/Creat Ratio 22.1 RATIO (10-20); Calcium,Total 9.7 mg/dL (7.6-11.0); Carbon Dioxide 20.9 mmol/L (21.0-32.0); Chloride 109 mmol/L (98-108); Creatinine, Serum 1.51 mg/dL (0.70-1.20); EST Glomerular Filtration Rate 36 (>60); Globulin 3.1 g/dL (2.2-4.2); Glucose 143 mg/dL (70-99); Potassium 5.4 mmol/L (3.3-5.1); Protein, Total 7.2 g/dL (5.9-8.4); Sodium Level 140 mmol/L (133-145); Vitamin D,25 Hydroxy 33.6 ng/mL (30-100)
== END | disposition home or self-care (01) ==
PROVIDERS: PCP Family Medicine Geriatric Medicine; Referring Provider Family Medicine Geriatric Medicine; Visit Provider Family Medicine Geriatric Medicine
DX: E11.65 Type 2 diabetes mellitus with hyperglycemia (principal); I10 Essential (primary) hypertension; E55.9 Vitamin D deficiency, unspecified; J20.9 Acute bronchitis, unspecified; R68.83 Chills (without fever)
CPT/HCPCS: 36415; 80053; 82306; 84443; 85025; 87631

== ENCOUNTER 2024-06-09 20:17 | Inpatient (IN) | payer MEDICARE, SELFPAY ==
[2024-06-09 20:19] VITALS: BP 166/102; PULSE 62; RESP 15; TEMP 36.7; O2SAT 100; BMI 29.0
--- NOTE | 2024-06-09 21:00 | RAD_ITS ---
PROCEDURE: CHEST 1 VIEW 06/09/2024 REASON FOR EXAM: PRE OP TECHNIQUE: Frontal view of the chest. FINDINGS: Hardware: None Heart: Cardiac and mediastinal contours are stable. Lungs: The lungs are clear. Bones: The bones are unremarkable. Other: RAD/Chest 1 View IMPRESSION: No Acute Findings. Reading Location: [id number]
--- NOTE | 2024-06-09 21:00 | RAD_ITS ---
PROCEDURE: PELVIS 1 OR 2 VIEWS 06/09/2024 REASON FOR EXAM: FALL AND PAIN TECHNIQUE: 1 view(s) of the pelvis. FINDINGS: Hardware: Status post right total hip arthroplasty. The prosthesis appears located. Bones: No acute fracture or dislocation. Joints: Status post right hip arthroplasty. Mild joint space narrowing of the left hip joint consistent with mild arthrosis. soft tissues: Unremarkable. Other: RAD/Pelvis 1 or 2 Views IMPRESSION: NO EVIDENCE OF PELVIC FRACTURE Reading Location: [id number]
--- NOTE | 2024-06-09 21:00 | RAD_ITS ---
EXAM: Right femur CLINICAL HISTORY: Fall, pain TECHNIQUE: Two-view FINDINGS: Acute posteromedially displaced spiral fracture of the distal shaft of the right femur. Status post right total hip arthroplasty which appears located. Status post total knee arthroplasty which appears located.. RAD/Femur Min 2 Views IMPRESSION: Acute posteromedially displaced spiral fracture of the distal shaft of the righ t femur. Reading Location: [id number]
--- NOTE | 2024-06-09 21:00 | RAD_ITS ---
PROCEDURE: KNEE 1 OR 2 VIEWS 06/09/2024 REASON FOR EXAM: FALL AND PAIN TECHNIQUE: 2 view(s) of the right knee FINDINGS: Bones: Acute posteromedially displaced spiral fracture of the distal shaft of the femur. Joints: Total knee arthroplasty in satisfactory alignment. Effusion: Moderate joint effusion. Soft tissues: Soft tissues are unremarkable. Other: RAD/Knee 1 or 2 Views IMPRESSION: Acute posteromedially displaced spiral fracture of the distal shaft of the femu r. Status post total knee arthroplasty. Reading Location: [id number]
--- NOTE | 2024-06-09 21:03 | EDS_ITS ---
HPI HPI - Fall History of Present Illness Chief Complaint: Fall Informant: patient and family Occured/Mechanism Occurred: Today Mechanism/Context: Yes same level fall and Yes trip Usually ambulates: Without assistance Pain/Injury Pain Location: lower extremity Quality of Pain: Sharp Current Severity: Moderate Maximum Severity: Moderate Associated Symptoms Associated Symptoms: Positive for Inability to ambulate; Negative for Parast hesias, Weakness, Loss of function, Loss of consciousness or Amnesia Narrative Narrative: 73-year-old female history of CKD, diabetes, prior DVT and PE ED, anemia, cardiomyopathy on the blood thinner Xarelto. Said a prior right hip and knee replacement done by [facility] years ago. She was in her kitchen today and her dogs were there and she tripped over the dog fell landing on her right hip and right knee complaining of pain. Denies hitting her head. No headache or neck pain. No recent illness other than a mild cold. Prior similar symptoms: No Recent Illness/Hospitalization: No PFSH PFSH Medical History Benign essential HTN Aortic root dilatation Cardiomyopathy Chronic kidney disease, stage 3 Nonrheumatic aortic (valve) stenosis Nonrheumatic tricuspid (valve) insufficiency Nonrheumatic mitral (valve) insufficiency Hemorrhoids Atrophic vaginitis Mixed incontinence Postlaminectomy syndrome (02/01/16) Lung nodule (10/28/14) Lichen simplex chronicus (10/20/10) Left foot drop (04/24/13) Osteoarthritis Lumbar stenosis Degenerative joint disease of right knee History of colitis (10/19/10) Hyperlipidemia History of pulmonary embolus (PE) (10/30/06) Scoliosis Asthma History of DVT (deep vein thrombosis) (10/30/06) Anemia (04/10/17) History of syncope (10/01/17) Paroxysmal atrial fibrillation (03/13/18) DM2 (diabetes mellitus, type 2) Chronic bronchitis Syncope Home Medications ?Medication ?Instructions ?Recorded ?Last Taken ?Type fluticasone 100 mcg-salmeterol 50 1 puff inhalation BI D asthma 01/29/13 Unknown History mcg/dose blistr powdr for inhalation ferrous gluconate 324 mg (37.5 mg 325 mg PO BID iron 0 05/29/18 Unknown History iron) tablet sennosides 8.6 mg-docusate sodium 2 tab PO BID PRN Con stipation 04/15/19 Unknown History 50 mg tablet albuterol sulfate 2.5 mg/3 mL 2.5 mg inhalation Q4H NJ N 04/23/19 Unknown History (0.083 %) solution for nebulization shortness of breat h or wheezing acetaminophen 650 mg 650 mg PO Q8H 12/05/21 Unkno wn History tablet,extended release (Tylenol Arthritis Pain) albuterol sulfate 90 mcg/actuation 2 puff inhalation 4 X/DAY PRN asthma 12/05/21 Unknown History aerosol inhaler estradiol 10 mcg vaginal tablet 10 mcg vaginal .QMR ho rmone 12/05/21 Unknown History famotidine 40 mg tablet 40 mg PO DAILY 12/05/21 Unkn own History cetirizine 10 mg tablet 10 mg PO DAILY PRN allergy s ymptoms 06/21/22 Unknown History gabapentin 600 mg tablet 600 mg PO TID 06/21/22 Unkno wn History pioglitazone 30 mg tablet 30 mg PO DAILY 06/21/22 Unkn own History rivaroxaban 15 mg tablet (Xarelto) 15 mg PO DAILY #90 tabs 12/19/22 Unknown Rx atorvastatin 40 mg tablet 40 mg PO DAILY #90 tabs 03/21 10/12 Unknown Rx carvedilol 3.125 mg tablet (Coreg) 3.125 mg PO BID #18 0 tabs 04/07/24 Unknown Rx lisinopril 2.5 mg tablet 2.5 mg PO DAILY #90 tabs Unknown Rx codeine 10 mg-guaifenesin 100 mg/5 10 ml PO Q6 5 Unknown History mL oral liquid doxycycline hyclate 100 mg tablet 100 mg PO BID Unknown History prednisone 10 mg tablet mg PO 05/27/24 Unknown Histo ry solifenacin 5 mg tablet 5 mg PO QDAY 05/27/24 Unknow n History Allergy/AdvReac Type Severity Reaction Status Date / Time cider vinegar Allergy NEEDS Verified 06/09/24 20:23 FOLLOW-UP cottonseed oil Allergy NEEDS Verified 06/09/24 20:23 FOLLOW-UP grass pollen Allergy NEEDS Verified 06/09/24 20:23 FOLLOW-UP morphine Allergy Unknown Verified 06/09/24 20:23 oxycodone HCl (From Allergy Unknown Verified 06/09/24 20:23 OxyContin) propoxyphene HCl (From Allergy Unknown Verified 06/09/24 20:23 Darvon) wool Allergy NEEDS Verified 06/09/24 20:23 FOLLOW-UP chlorhexidine AdvReac Rash Verified 06/09/24 20:23 feathers AdvReac NEEDS Verified 06/09/24 20:23 FOLLOW-UP Family History Mother CAD (coronary artery disease) DVT (deep venous thrombosis) Hypertension Father Prostate cancer Sister Breast cancer Surgical History History of total right hip replacement (09/17/18) History of total right knee replacement (2008) History of hysterectomy (1999) History of bilateral salpingo-oophorectomy (1999) H/O transurethral destruction of bladder lesion (03/26/14) History of fractured kneecap (2007) History of partial knee replacement (2006) H/O thumb surgery (2003) Status post ORIF of fracture of ankle (1986) H/O tubal ligation (1988) History of laparoscopy (1999) History of lumbar laminectomy (11/05/12) Status post insertion of inferior vena caval filter (10/30/06) History of colonoscopy (05/17/11) History of (1988) Patellar tendon rupture History of knee replacement (09/02/06) Social History Smoking Status: Former smoker quit date: 02/18/69 alcohol intake: never substance use type: does not use caffeine: Yes Type: coffee Number of servings: 1 ROS ROS ED ROS Narrative Recent cold. No other recent illnesses. Constitutional Constitutional ED: Denies chills or fever(s) Eyes Eyes: Denies blurry vision ENT ENT ED: Denies ear pain Cardiovascular Cardiovascular: Denies chest pain Respiratory/Chest Respiratory/Chest: Reports cough; Denies dyspnea Gastrointestinal Gastrointestinal: Denies abdominal pain or constipation Genitourinary Genitourinary ED: Denies dysuria or hematuria Musculoskeletal Musculoskeletal: Denies arthralgias Integumentary Denies abscess Neurologic Neurologic: Denies headache(s) Psychiatric Psychiatric: Denies anxiety or depression Endocrine Endocrinology: Denies polydipsia Hematologic/Lymphatic Hematologic/Lymphatic: Reports easy bleeding and easy bruising; Denies lymphadenopathy Allergic/Immunologic Allergic/Immunologic ED: Denies mouth swelling, tongue swelling or urticaria EXAM Physical Exam Narrative Exam Narrative: 70-year-old female lying in bed. Vital signs are stable afebrile. Family at bedside. H EENT exam no signs of trauma to her face. Pupils round reactive light. No bruising or tenderness. No scalp tenderness or bruising or hematoma. Neck nontender. Trachea midline. Lungs clear to auscultation. Heart rate about 60 no murmur. Chest wall and ribs nontender. Abdomen soft nontender. 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 Back is nontender. She has tenderness of the right hip, femur and right knee. She has limited range of motion to the right lower extremity due to pain. The right lower extremity is shortened and rotated. She has normal dorsi and plantarflexion of her right foot. Normal touch sensation. The left hip, femur, knee, lower leg and ankle are nontender. She has a chronic foot drop to her left foot. Neurologically she is awake alert. Answering questions following commands. Const Vital Signs: 06/09/24 20:19 06/09/24 20:25 Temperature 98.1 F Temperature Source Oral Pulse Rate 62 Respiratory Rate 15 Respiratory Effort Normal Non-Labored Respiratory Depth Normal Respiratory Pattern Normal Blood Pressure 166/102 H Blood Pressure Mean 123 Pulse Ox 100 Oxygen Delivery Method Room Air Positive well nourished and well developed; Negative for cachectic, contractures or unkempt General Appearance ED: well developed; Negative for unkempt, cachectic, contractures or NAD Nutritional Appearance: Negative for cachectic HEENT Reports normocephalic atraumatic; Negative for trauma, contusion, hematoma or tenderness Eyes PERRL and EOMs intact bilaterally Neck full ROM, no lymphadenopathy and supple Chest Wall inspection of chest normal and palpation of chest normal Resp normal respiratory effort, no retractions and clear to auscultation bilaterally Auscultation: Negative for rales, rhonchi, wheezes or diminished lung sounds Cardio regular rate, regular rhythm, S1 normal heart sound, S2 normal heart sound and no murmurs Rate: Negative for bradycardia or tachycardic Rhythm: Negative for abnormal rhythm GI non-tender, non-distended and no masses Inspection: Negative for abdominal distention Palpation: soft; Negative for guarding or rebound tenderness present Back/Spine no CVA tenderness General Back: Negative for CVA tenderness Cervical Spine: Negative for cervical spine tenderness Thoracic Spine / Upper Back: Negative for ROM limited Lumbar Spine / Lower Back: Negative for lumbar spinal tenderness Extremity Extremity Narrative: Tenderness to the right hip, femur and knee. Shortened and rotated. Right foot neurovascularly intact with normal touch sensation. Dorsi and plantarflexion. Neuro oriented x3, CN's II-XII intact bilaterally and moves all extremities Neuro Narrative: Left foot drop chronic. Sensorium / Orientation: alert, oriented to person, oriented to place and oriented to time; Negative for orientation impaired, confused or lethargic Motor Exam: strength 5/5 throughout Psych mental status grossly normal and thought process normal Appearance: Negative for unkempt Attitude: No agitated Mood & Affect: Negative for anxious or tearful Skin Lesions: no lesions Rashes: no rashes MDM MDM MDM Narrative Medical decision making narrative: 73-year-old female was tripped by her dogs in her kitchen and fell injuring her right lower extremity she has had prior hip and knee replacements. I suspect either hip, femur or knee fracture. She will be given fentanyl for pain. Screening labs and x-rays are being obtained. I suspect there is a fracture she will need to be admitted. Repeat exam patient is doing well at 10:35 PM. She has a distal spiral femur fracture [place] right hip prosthesis and a right knee prosthesis. I have already spoken to orthopedics on-call, Dr. Sivakumar Shannon. He is reviewing the films. If he feels comfortable keep the patient here she will be admitted here to the hospitalist. If not she will be transferred to [facility]. Patient is currently resting comfortably after a 2nd dose of fentanyl. I went over her x-rays with her and her daughter. They are comfortable with the plan if she cannot be admitted here. History & Record Review Discussion w/independent historian: Patient and Family Additional record(s) reviewed:: Prior inpatient record, Prior outpatient record, Prior ED visit and Prior labs Lab Data Attestation: I reviewed the patient's lab results. Lab results narrative: CBC shows white 11.5. H&H 9.9 and 30. Platelets 163. PT/INR is 16 and 1.3. Electrolytes show sodium of 140. Gap 10. BUN 36 creatinine 1.37. Glucose 259. Right femur x-ray shows a spiral fracture distal to the hip prosthesis down to t he right knee prosthesis. Labs: Laboratory Results - last 24 hr 06/09/24 20:27 WBC 11.5 H RBC 3.17 L Hgb 9.9 L Hct 30.9 L MCV 97.5 MCH 31.2 MCHC 32.0 RDW Std Deviation 51.5 H RDW Coeff of Mahin 14.4 Plt Count 163 MPV 10.1 Immature Gran % (Auto) 0.400 Neut % (Auto) 75.0 H Lymph % (Auto) 16.4 L [place] % (Auto) 7.0 Eos % (Auto) 1.0 Baso % (Auto) 0.2 Absolute Neuts (auto) 8.6 H Absolute Lymphs (auto) 1.89 Nucleated RBC % 0 PT 16.0 H INR 1.3 Sodium 140 Potassium 5.1 Chloride 108 Carbon Dioxide 21.6 Anion Gap 10 BUN 36 H Creatinine 1.37 H Estim Creat Clear Calc 37.99 L Est GFR (MDRD) Non-Af 41 L BUN/Creatinine Ratio 26.4 H Glucose 259 H Calcium 9.5 Radiography Chest X-Ray - ED: Heart, Lungs, Mediastinum, Bony Structures, No Acute Disease, Chronic Changes and Cardiomegaly Diagnostic Testing: Clinical Impression(s) from Imaging Studies Chest X-Ray 06/09/24 21:00 IMPRESSION: No Acute Findings. Reading Location: [facility] Femur X-Ray 06/09/24 21:00 IMPRESSION: Acute posteromedially displaced spiral fracture of the distal shaft of the right femur. Reading Location: [facility] Knee X-Ray 06/09/24 21:00 IMPRESSION: Acute posteromedially displaced spiral fracture of the distal shaft of the femur. Status post total knee arthroplasty. Reading Location: [facility] Pelvis X-Ray 06/09/24 21:00 IMPRESSION: NO EVIDENCE OF PELVIC FRACTURE Reading Location: [facility] Chest x-ray, portable, single view shows borderline cardiomegaly. No acute process. Normal lungs. Chronic changes. Interpreted both by myself and the radiologist. Right hip and pelvis x-ray single view interpreted by myself and the radiologist. Shows no acute fracture or dislocation. Right hip prosthesis. Right femur x-ray , 4 views, interpreted both by myself and the radiologist. Shows a distal third spiral fracture of the femur down to the right knee prosthesis. There is a right hip prosthesis but is distal to that. Discharge Plan Triage Chief Complaint: Fall ED Provider: Easton Lazo Dx/Rx/DC Orders Clinical Impression: Fall, Hx of pulmonary embolus, Cardiomyopathy, Closed right femoral fracture, Chronic anticoagulation Prescriptions: No Action albuterol sulfate 2.5 mg /3 mL (0.083 %) solution for nebulization 2.5 mg INHALATION Q4H PRN (Reason: shortness of breath or wheezing) famotidine 40 mg tablet 40 mg PO DAILY acetaminophen [Tylenol Arthritis Pain] 650 mg tablet extended release 650 mg PO Q8H gabapentin 600 mg tablet 600 mg PO TID cetirizine 10 mg tablet 10 mg PO DAILY PRN (Reason: allergy symptoms) pioglitazone 30 mg tablet 30 mg PO DAILY codeine-guaifenesin 10-100 mg/5 mL liquid 10 ml PO Q6 prednisone 10 mg tablet PO doxycycline hyclate 100 mg tablet 100 mg PO BID solifenacin 5 mg tablet 5 mg PO QDAY fluticasone propion-salmeterol 1 PUFF inhaler 1 puff INHALATION BID albuterol sulfate 90 mcg/actuation HFA aerosol inhaler 2 puff inhalation 4X/DAY PRN (Reason: asthma) estradiol 10 mcg tablet 10 mcg vaginal .QMR Patient Comments: TWICE A WEEK ferrous gluconate 324 MG tablet 325 mg PO BID sennosides-docusate sodium 1 TABLET tablet 2 tab PO BID PRN (Reason: Constipation) Rx Instructions: Take until first bowel movement, then as needed Xarelto 15 mg tablet 15 mg PO DAILY Qty: 90 3RF Rx Instructions: must administer with evening meal atorvastatin 40 mg tablet 40 mg PO DAILY Qty: 90 3RF carvedilol [Coreg] 3.125 mg tablet 3.125 mg PO BID Qty: 180 3RF Rx Instructions: must administer with a meal/food lisinopril 2.5 mg tablet 2.5 mg PO DAILY Qty: 90 4RF Primary Care Provider: Quentin Kellogg Chi Referrals: Quentin Kellogg Chi, MD [Primary Care Provider] - Print Language: Maori Disposition Disposition: Acute Care Hospital
[2024-06-09 21:11] LABS: Absolute Lymphocyte Count 1.89 X10^3/uL (0.83-4.51); Absolute Neutrophil Count 8.6 X10^3/uL (2.0-7.7); Basophil# 0.02 X10^3/uL; Basophil% 0.2 % (0-1); Eosinophil# 0.11 X10^3/uL; Hematocrit 30.9 % (37-47); Hemoglobin 9.9 g/dL (12.0-15.0); Lymphocyte # 1.89 X10^3/ul (0.83-4.51); Lymphocyte % 16.4 % (19-41); Mean Corpuscular Hgb 31.2 pg (27.0-32.0); Mean Corpuscular Volume 97.5 fL (81-99); Mean Platelet Vol. 10.1 fl (6.2-12.0); NRBC Flagged by Analyzer 0 % (0-5); Neutrophil # 8.62 X10^3/uL (2.7-7.7); Platelet Count 163 K/mm3 (150-450); RBC Distribution Width CV 14.4 % (11.6-14.6); RBC Distribution Width SD 51.5 fl (35.1-43.9); Red Blood Count 3.17 M/mm3 (4.2-5.4); White Blood Count 11.5 K/mm3 (4.4-11.0)
[2024-06-09 21:24] LABS: International Normalized Ratio 1.3
[2024-06-09] MEDS: fentaNYL 100 MCG/2 ML Ampul 25 MCG IV (21:24)
[2024-06-09] MEDS: Ondansetron 4 MG/2 ML Vial IV (21:24)
[2024-06-09 21:36] LABS: Anion Gap 10 (5-15); BUN 36 mg/dL (4-19); BUN/Creat Ratio 26.4 RATIO (10-20); Calcium,Total 9.5 mg/dL (7.6-11.0); Carbon Dioxide 21.6 mmol/L (21.0-32.0); Chloride 108 mmol/L (98-108); Creatinine, Serum 1.37 mg/dL (0.70-1.20); EST Glomerular Filtration Rate 41 (>60); Estimated Creatinine Clearance 37.99 ml/min (50-250); Glucose 259 mg/dL (70-99); Potassium 5.1 mmol/L (3.3-5.1); Sodium Level 140 mmol/L (133-145)
[2024-06-09 22:22] VITALS: BP 153/88; PULSE 70; RESP 18; O2SAT 99
[2024-06-09] MEDS: fentaNYL 100 MCG/2 ML Ampul 50 MCG IV (22:49)
[2024-06-09 22:53] VITALS: BP 153/88; PULSE 73; RESP 18; TEMP 36.8; O2SAT 97
--- NOTE | 2024-06-09 23:09 | PCM.HP.STD ---
[facility] - General General Date of Admission: 06/09/24 Date of Service: 06/09/24 Chief Complaint: RLE Pain after Fall. HPI Narrative MICHAEL GORE, is a 73 F with a past medical history of essential hypertension; on lisinopril, hyperlipidemia; on atorvastatin, overweight; BMI of 29 this admission, DM-2; of unknown control on pioglitazone, history of DVT/PE (2006); on rivaroxaban, history of paroxysmal atrial fibrillation (2018), history of nonrheumatic aortic valve stenosis, history of nonrheumatic mitral insufficiency, history of asthma; on fluticasone propionate-salmeterol twice daily plus as needed albuterol, CKD; stage IIIb, history of neuropathy; on gabapentin 3 times daily, history of atrophic vaginitis, OAB; on solifenacin, history of muscle spasms; on methocarbamol as needed twice daily, seasonal allergies; on cetirizine daily as needed, history of collagenous colitis, history of GERD; on famotidine, history of Left foot drop (2013) and OA; s/p Right THR (2018) plus right TKR (2008) with history of postlaminectomy syndrome (2015) plus scoliosis who presents to [facility] ER complaining of Right lower extremity pain after fall. Ms. Gore reports her symptoms began earlier today when she was in her kitchen and she tripped over her dog landing onto her Right hip and knee with subsequent severe pain. She denies loss of consciousness or significant head trauma with her fall - but she was unable to ambulate due to pain so she decided to come in for further evaluation and treatment. She admits to associated cough but denies shortness of breath. There was no report of recent illness, fever, chills, nausea, vomiting, diarrhea, constipation, abdominal pain, dysuria, hematuria, headache or rash. In the ER she was noted to have x-ray evidence of acute posteromedially displaced spiral fracture of the distal shaft of the Right femur in the setting of previous TKR with a corresponding negative pelvic x-ray and CXR. She was then admitted to the general medical floor with telemetry monitoring for ongoing care for status expected to extend beyond 2 midnights. [facility] Medical History (Updated 06/10/24 @ 04:[address] Mitchel Hightower DO) Diabetes Former smoker Pulmonary embolism Benign essential HTN Aortic root dilatation Cardiomyopathy Chronic kidney disease, stage 3 Nonrheumatic aortic (valve) stenosis Nonrheumatic tricuspid (valve) insufficiency Nonrheumatic mitral (valve) insufficiency Hemorrhoids Atrophic vaginitis Mixed incontinence Postlaminectomy syndrome (02/01/16) Lung nodule (10/28/14) Lichen simplex chronicus (10/20/10) Left foot drop (04/24/13) Osteoarthritis Lumbar stenosis Degenerative joint disease of right knee History of colitis (10/19/10) Hyperlipidemia History of pulmonary embolus (PE) (10/30/06) Scoliosis Asthma History of DVT (deep vein thrombosis) (10/30/06) Anemia (04/10/17) History of syncope (10/01/17) Paroxysmal atrial fibrillation (03/13/18) DM2 (diabetes mellitus, type 2) Chronic bronchitis Syncope Home Medications ?Medication ?Instructions ?Recorded ?Last Taken ?Type fluticasone 100 mcg-salmeterol 50 1 puff inhalation BID asthma 01/29/13 Unknown History mcg/dose blistr powdr for inhalation ferrous gluconate 324 mg (37.5 mg 325 mg PO BID iron 05/29/18 Unknown History iron) tablet sennosides 8.6 mg-docusate sodium 2 tab PO BID PRN Constipation 04/15/19 Unknown History 50 mg tablet albuterol sulfate 2.5 mg/3 mL 2.5 mg inhalation Q4H PRN 04/23/19 Unknown History (0.083 %) solution for nebulization shortness of breath or wheezing acetaminophen 650 mg 650 mg PO Q8H 12/05/21 Unknown History tablet,extended release (Tylenol Arthritis Pain) albuterol sulfate 90 mcg/actuation 2 puff inhalation 4X/DAY PRN asthma 12/05/21 Unknown History aerosol inhaler famotidine 40 mg tablet 40 mg PO DAILY 12/05/21 Unknown History cetirizine 10 mg tablet 10 mg PO DAILY PRN allergy symptoms 06/21/22 Unknown History gabapentin 600 mg tablet 600 mg PO TID 06/21/22 Unknown History pioglitazone 30 mg tablet 30 mg PO DAILY 06/21/22 Unknown History rivaroxaban 15 mg tablet (Xarelto) 15 mg PO DAILY #90 tabs 12/19/22 Unknown Rx atorvastatin 40 mg tablet 40 mg PO DAILY #90 tabs 04/07/24 Unknown Rx lisinopril 2.5 mg tablet 2.5 mg PO DAILY #90 tabs 04/07/24 Unknown Rx solifenacin 5 mg tablet 5 mg PO QDAY 05/27/24 Unknown History ascorbic acid (vitamin C) 500 mg 500 mg PO DAILY 06/09/24 Unknown History tablet citalopram 10 mg tablet 10 mg PO DAILY 06/09/24 Unknown History methocarbamol 500 mg tablet 250 - 500 mg PO BID PRN PRN muscle 06/09/24 Unknown History spasm tramadol 50 mg tablet 25 - 50 mg PO BID PRN PRN pain 06/09/24 Unknown History Allergy/AdvReac Type Severity Reaction Status Date / Time cider vinegar Allergy NEEDS Verified 06/09/24 20:23 FOLLOW-UP cottonseed oil Allergy NEEDS Verified 06/09/24 20:23 FOLLOW-UP grass pollen Allergy NEEDS Verified 06/09/24 20:23 FOLLOW-UP morphine Allergy Unknown Verified 06/09/24 20:23 oxycodone HCl (From Allergy Unknown Verified 06/09/24 20:23 OxyContin) propoxyphene HCl (From Allergy Unknown Verified 06/09/24 20:23 Darvon) wool Allergy NEEDS Verified 06/09/24 20:23 FOLLOW-UP chlorhexidine AdvReac Rash Verified 06/09/24 20:23 feathers AdvReac NEEDS Verified 06/09/24 20:23 FOLLOW-UP Family History Mother CAD (coronary artery disease) DVT (deep venous thrombosis) Hypertension Father Prostate cancer Sister Breast cancer Surgical History (Updated 06/10/24 @ 04:[address] Mitchel Hightower DO) History of total right hip replacement (09/17/18) History of total right knee replacement (2008) History of hysterectomy (1999) History of bilateral salpingo-oophorectomy (1999) H/O transurethral destruction of bladder lesion (03/26/14) History of fractured kneecap (2007) History of partial knee replacement (2006) H/O thumb surgery (2003) Status post ORIF of fracture of ankle (1986) H/O tubal ligation (1988) History of laparoscopy (1999) History of lumbar laminectomy (11/05/12) Status post insertion of inferior vena caval filter (10/30/06) History of colonoscopy (05/17/11) History of (1988) Patellar tendon rupture History of knee replacement (09/02/06) Social History Smoking Status: Former smoker quit date: 02/18/69 alcohol intake: never substance use type: does not use caffeine: Yes Type: coffee Number of servings: 1 ROS ROS Narrative Review of Systems: Constitutional: Patient denies fever or chills. Eyes: Patient denies changes in vision or discharge from eyes. ENT: Patient denies runny nose, sore throat or ear pain. Resp: Patient admits to nonproductive cough but denies shortness of breath. CV: Patient denies chest pain, palpitations or heart racing. GI: Patient denies abdominal pain, nausea, vomiting, diarrhea or constipation. : Patient denies dysuria, hematuria or urinary frequency. MSK: Patient admits to severe Right lower extremity pain with inability to ambulate after fall as per HPI. She also has chronic Left foot drop. Skin: Patient denies rash, abscess, wounds or jaundice. Psych: Patient denies symptoms of uncontrolled depression or anxiety. Neuro: Patient denies headache, paresthesias or focal neurologic deficits. Allergy: Patient denies lip swelling, tongue swelling or urticaria. Hematology: Patient admits to easy bleeding and easy bruisability on rivaroxaban. Endocrinology: Patient denies polyuria, polydipsia, polyphagia or heat/cold intolerance. 14 point ROS otherwise negative save for positives noted above in HPI. Vital Signs Vital Signs Vital Signs: 06/09/24 20:19 06/09/24 20:25 06/09/24 22:22 Temperature 98.1 F Temperature Source Oral Pulse Rate 62 70 Respiratory Rate 15 18 Respiratory Effort Normal Non-Labored Respiratory Depth Normal Respiratory Pattern Normal Blood Pressure 166/102 H 153/88 H Blood Pressure Mean 123 109 Pulse Ox 100 99 Oxygen Delivery Method Room Air Room Air 06/09/24 22:53 Temperature 98.2 F Temperature Source Pulse Rate 73 Respiratory Rate 18 Respiratory Effort Respiratory Depth Respiratory Pattern Blood Pressure 153/88 H Blood Pressure Mean 109 Pulse Ox 97 Oxygen Delivery Method Weight Weight: 174 lb 2.643 oz Body Mass Index (BMI) 29.0 Physical Exam Const alert, oriented x3 and average body habitus Constitutional Narrative: Mild distress noted. General Appearance: cooperative HEENT normocephalic, head/scalp atraumatic, hearing grossly normal bilaterally and moist oral mucous membranes Eyes PERRL, EOMs intact bilaterally and conjunctivae normal Neck no lymphadenopathy, supple and no JVD Resp normal respiratory effort, no retractions, no use of accessory muscles and clear to auscultation bilaterally Cardio regular rate and regular rhythm GI normal to inspection, nondistended, normoactive bowel sounds, soft to palpation, non-tender and non-distended Extremity Extremity Narrative: Patient has limited range of motion of her Right lower extremity due to pain severe pain with RLE shortening and external rotation. Patient has good pulses throughout with no signs of neurovascular compromise. Skin Skin Narrative: Patient has no evidence of rash, abscess, wounds or jaundice. Neuro oriented x3, CN's II-XII intact bilaterally, moves all extremities and no focal motor deficits Sensorium / Orientation: awake, alert, oriented to person, oriented to place and oriented to time Speech: speech normal Psych affect normal Results Medical Records Data Attestation: I reviewed the patient's medical records Lab / Micro Data Attestation: I reviewed the patient's lab results. 06/09/24 20:27 06/09/24 20:27 Labs: Laboratory Results - last 24 hr 06/09/24 20:27: WBC 11.5 H, RBC 3.17 L, Hgb 9.9 L, Hct 30.9 L, MCV 97.5, MCH 31.2, MCHC 32.0, RDW Std Deviation 51.5 H, RDW Coeff of Mahin 14.4, Plt Count 163, MPV 10.1, Immature Gran % (Auto) 0.400, Neut % (Auto) 75.0 H, Lymph % (Auto) 16.4 L, Denali % (Auto) 7.0, Eos % (Auto) 1.0, Baso % (Auto) 0.2, Absolute Neuts (auto) 8.6 H, Absolute Lymphs (auto) 1.89, Nucleated RBC % 0, PT 16.0 H, INR 1.3, Sodium 140, Potassium 5.1, Chloride 108, Carbon Dioxide 21.6, Anion Gap 10, BUN 36 H, Creatinine 1.37 H, Estim Creat Clear Calc 37.99 L, Est GFR (MDRD) Non-Af 41 L, BUN/Creatinine Ratio 26.4 H, Glucose 259 H, Calcium 9.5 Imaging Radiology Impression Chest X-Ray 06/09/24 21:00 IMPRESSION: No Acute Findings. Reading Location: [facility] Femur X-Ray 06/09/24 21:00 IMPRESSION: Acute posteromedially displaced spiral fracture of the distal shaft of the right femur. Reading Location: [facility] Knee X-Ray 06/09/24 21:00 IMPRESSION: Acute posteromedially displaced spiral fracture of the distal shaft of the femur. Status post total knee arthroplasty. Reading Location: [facility] Pelvis X-Ray 06/09/24 21:00 IMPRESSION: NO EVIDENCE OF PELVIC FRACTURE Reading Location: [facility] Assessment & Plan Assessment/Plan (1) Spiral fracture of shaft of femur: QUALIFIERS: Encounter type: initial encounter Fracture type: closed Fracture alignment: displaced Laterality: right Qualified Code(s): S72.341A - Displaced spiral fracture of shaft of right femur, initial encounter for closed fracture (2) Fall: QUALIFIERS: Encounter type: initial encounter Qualified Code(s): W19.XXXA - Unspecified fall, initial encounter (3) History of pulmonary embolus (PE): (4) History of DVT (deep vein thrombosis): (5) Chronic anticoagulation: (6) History of total right hip replacement: (7) History of total right knee replacement: (8) Left foot drop: (9) Overweight (BMI 25.0-29.9): PLAN: Plan 1. X-ray evidence of acute posteromedially displaced spiral fracture of the distal shaft of the Right femur in the setting of previous TKR after patient Fell at Home due to tripping over her dog - Admit to general medical floor with telemetric monitoring. Keep n.p.o. for anticipated ORIF in a.m. with orthopedic surgeon made aware by ER physician without appreciated in advance. Give acetaminophen as needed for [id number] (level 1-5/10) pain or fever. Give fentanyl IV as needed for severe (level 6-10/10) pain. 2. History of DVT/PE (2006); on rivaroxaban complicating #1 - We we will hold NOAC with upcoming ORIF. This agent will be restarted postoperatively when okay with orthopedic surgeon. 3. OA; s/p Right THR (2018) plus right TKR (2008) with history of postlaminectomy syndrome (2015) plus scoliosis plus previously known Left foot drop (2013) compounding #1 & #2 - Noted. We will follow pain regimen and scales as outlined in #1. 4. Overweight; BMI of 29 this admission adding to the burden of disease outlined from #1 - #3 - Weight loss will be recommended. Check TSH. 5. Essential hypertension; on lisinopril - Maintain current therapy plus give prn IV hydralazine for systolic blood pressure > 160 mmHg. 6. Hyperlipidemia; on atorvastatin - Continue statin. 7. DM-2; of unknown control on pioglitazone - Keep NPO and hold pioglitazone while inpatient. Patient will not be given SSI while NPO for surgery to avoid potential hypoglycemia. 8. History of paroxysmal atrial fibrillation (2019) - Noted with patient currently in NSR. 9. History of nonrheumatic aortic valve stenosis - Noted. 10. History of nonrheumatic mitral insufficiency - Noted. 11. History of asthma; on fluticasone propionate-salmeterol twice daily plus as needed albuterol - Stable with no evidence of acute flare at this time. Continue current treatment. 12. CKD; stage IIIb - Stable with estimated GFR of 41, serum creatinine of 1.37 mg/dL and BUN of 36 mg/dL present on admission. 13. History of neuropathy; on gabapentin 3 times daily - Resume gabapentin as previous. 14. History of atrophic vaginitis - Noted for the sake of completeness. 15. OAB; on solifenacin - Continue solifenacin as before. 16. History of muscle spasms; on methocarbamol as needed twice daily - Maintain current therapy. 17. Seasonal allergies; on cetirizine daily as needed - Stable. 18. History of collagenous colitis - Noted. 19. History of GERD; on famotidine - Continue current treatment. 20. DVT prophylaxis - Patient's rivaroxaban has been held in light of impending ORIF as outlined in #2. Place SCD on LLE. Orthopedic surgeon to decide upon postoperative DVT prophylaxis regimen. Total time: Approximately (midnight less than) 75 minutes. Charges/Coding Visit Charges Inpatient E&M: 38036 Init Hosp L3
--- NOTE | 2024-06-09 23:25 | EKG12_ITS ---
Test Reason : am ekg Blood Pressure : */* mmHG Vent. Rate : 79 BPM Atrial Rate : 79 BPM P-R Int : 130 ms QRS Dur : 72 ms QT Int : 378 ms P-R-T Axes : 18 36 50 degrees QTcB Int : 433 ms Normal sinus rhythm Normal ECG When compared with ECG of 07-Sep-2022 02:42, No significant change was found Confirmed by ZEENAT TORRES, KRIS ([id number]), supervising editor trailer TEE ALEXIS ([id number]) on 06/10/2024 2:06:10 PM Referred By: Bang Confirmed By: KRIS EPPERSON MD
[2024-06-10] VITALS (11 sets, daily range): BP systolic 104–141; BP diastolic 54–82; PULSE 67–89; RESP 15–18; TEMP 36.2–37.1; O2SAT 91–100; BMI 31.8
[2024-06-10] MEDS: 0.9% Saline Lock 10 ML Syringe IV ×2 (00:50→05:24)
[2024-06-10] MEDS: 0.9% Normal Saline (1000mL) 1,000 ML 100 ML IV (00:50)
[2024-06-10] MEDS: Methocarbamol 500 MG Tablet 250 MG PO (01:59)
[2024-06-10 02:58] LABS: Bedside Glucose 205 mg/dL (74-106)
[2024-06-10] MEDS: fentaNYL 100 MCG/2 ML Ampul 25 MCG IV (05:24)
[2024-06-10 05:26] LABS: Absolute Lymphocyte Count 1.93 X10^3/uL (0.83-4.51); Basophil# 0.03 X10^3/uL; Basophil% 0.3 % (0-1); Eosinophil# 0.13 X10^3/uL; Eosinophils% 1.5 % (0-5); Hematocrit 29.6 % (37-47); Hemoglobin 9.3 g/dL (12.0-15.0); Lymphocyte # 1.93 X10^3/ul (0.83-4.51); Lymphocyte % 21.6 % (19-41); Mean Corp Hgb Conc 31.4 g/dL (32-36); Mean Corpuscular Hgb 30.8 pg (27.0-32.0); Monocyte# 0.84 X10^3/uL; Monocyte% 9.4 % (0-10); NRBC Flagged by Analyzer 0 % (0-5); Neutrophil # 5.98 X10^3/uL (2.7-7.7); Neutrophil % 66.9 % (47-70); Platelet Count 143 K/mm3 (150-450); RBC Distribution Width CV 14.2 % (11.6-14.6); RBC Distribution Width SD 50.7 fl (35.1-43.9); Red Blood Count 3.02 M/mm3 (4.2-5.4); White Blood Count 8.9 K/mm3 (4.4-11.0)
[2024-06-10 05:44] LABS: International Normalized Ratio 1.1; Prothrombin Time (Protime)PT. 14.5 SECONDS (11.7-14.9)
[2024-06-10 05:45] LABS: Partial Thromboplast Time 26.2 Seconds (24.1-36.2)
[2024-06-10 06:07] LABS: Bedside Glucose 172 mg/dL (74-106)
[2024-06-10 06:11] LABS: ALB/GLOB Ratio 1.3 RATIO (0.9-2.4); AST(SGOT) 22 U/L (<=31); Alanine Aminotransfer ALT/SGPT 16 U/L (<=34); Albumin, Serum 3.8 g/dL (3.4-4.8); Alkaline Phosphatase 95 U/L (35-104); Anion Gap 11 (5-15); BUN 30 mg/dL (4-19); BUN/Creat Ratio 24.6 RATIO (10-20); Calcium,Total 9.3 mg/dL (7.6-11.0); Carbon Dioxide 21.9 mmol/L (21.0-32.0); Chloride 109 mmol/L (98-108); Creatinine, Serum 1.22 mg/dL (0.70-1.20); EST Glomerular Filtration Rate 47 (>60); Estimated Creatinine Clearance 38.43 ml/min (50-250); Globulin 2.9 g/dL (2.2-4.2); Glucose 168 mg/dL (70-99); Phosphorus 3.5 mg/dL (2.7-4.5); Potassium 4.9 mmol/L (3.3-5.1); Protein, Total 6.6 g/dL (5.9-8.4); Sodium Level 141 mmol/L (133-145)
[2024-06-10] MEDS: Albuterol 2.5 MG/3 ML VIAL.NEB. 3 MG INHALATION ×3 (07:02→19:35)
[2024-06-10] MEDS: Budesonide Respules 0.5 MG/2 ML AMPUL.NEB. INHALATION ×2 (07:02→19:35)
[2024-06-10] MEDS: Tolterodine Tartrate 2 MG CAP.SA PO (09:33)
[2024-06-10] MEDS: Ascorbic Acid 500 MG Tablet PO (09:33)
[2024-06-10] MEDS: Ferrous Gluconate 324 MG Tablet PO ×2 (09:33→21:25)
[2024-06-10] MEDS: Citalopram 10 MG Tablet PO (09:33)
[2024-06-10] MEDS: Lisinopril 2.5 MG Tablet PO (09:33)
[2024-06-10] MEDS: Famotidine 20 MG Tablet 40 MG PO (09:33)
--- NOTE | 2024-06-10 10:07 | CASEMGMT ---
Social Work- SW met with pt, pt son Obey, and pt [id number], Inna to discuss discharge planning. SW introduced self and role; pt agreeable to meeting with son, who is POA, present. Pt and pt son report that the preference will be TCU at discharge if therapy is needed, as pt PCP is DR Kellogg. SW provided education on referral process; SW will follow for therapy recommendation post-surgery. Referral completed, if appropriate, at that that time PRIYANKA Merchant
[2024-06-10 10:13] LABS: Hemoglobin A1c 7.2 % (<=5.6)
[2024-06-10] MEDS: Insulin Lispro 100 UNIT/ML INSULN.PEN SC ×3 (11:32→21:29)
[2024-06-10 11:57] LABS: Bedside Glucose 256 mg/dL (74-106)
--- NOTE | 2024-06-10 12:29 | CASEMGMT ---
Addendum entered by Melyssa Shannon 06/10/24 12:40: LACE: 3 Original Note: YONIS OVIEDO Assessment Face to Face with patient for initial transition planning/care coordination assessment. YONIS OVIEDO introduced self and role at [facility], pt voices understanding. Pt is A&Ox4 and is resting comfortably in bed and is calm. Care providers, pharmacy, and demographics verified. Admitting dx: right Spiral Femur Fracture after Fall LACE Strata: PCP: [facility] Specialists: Chris (PM), [facility] (Unsure of name). Mignon Shannon with Ortho is consulted Preferred Pharmacy: [facility] Insurance: [employer] [facility] Prescription Benefit: Yes LNOK: Arvin Gore (Son), Yane Gore (DIL), Josh Gore (Son), Channing Gore (Son) Living Arrangements: Pt states that she lives with her 3 sons and DIL in a 2 story home with one step to enter ADLs/IADLs: Pt states that she is normally independent but that her son helps clean her home. Transportation: DIL, Family. Denies concerns DME: [employer] with sufficient supplies. Inhaler. Nebulizer. FWW. Rollator. Cane. Shower chair. Grab bars. Medical alert system resources provided. HHC/SNF: Reports HH history but is unsure when or the agency. Pt has a hx at [facility]. Pt?s goal: Return to [facility] Plan: Orthopedic surgery tomorrow and subsequently work with therapy. At this time, the pt states that she wants to go to the TCU once she is able for further rehab prior to returning home. Pt denies further concerns at this time. Report given to KVNG SOMERS CM and SW. Vincent Shannon RN, CM
[2024-06-10] MEDS: Acetaminophen 325 MG Tablet 650 MG PO ×2 (13:44→21:25)
[2024-06-10] MEDS: Gabapentin 600 MG Tablet PO ×2 (13:44→21:25)
--- NOTE | 2024-06-10 14:17 | CON.PCM.OR_ITS ---
HPI Consult Data Date of Consult: 06/10/24 HPI Narrative HPI Narrative: MICHAEL COMBS, is a 73 F who presents after falling in her home yesterday June 09, 2024. Patient states she tripped over one of her dogs. She normally uses a walker to get around. She has been doing so for several years. She has had a history of back surgery, right hip replacement, right knee replacement. She denies pre-existing pain in her hip or thigh or knee prior to falling yesterday. She lives at home with her family. [facility] Medical History Diabetes Former smoker Pulmonary embolism Benign essential HTN Aortic root dilatation Cardiomyopathy Chronic kidney disease, stage 3 Nonrheumatic aortic (valve) stenosis Nonrheumatic tricuspid (valve) insufficiency Nonrheumatic mitral (valve) insufficiency Hemorrhoids Atrophic vaginitis Mixed incontinence Postlaminectomy syndrome (02/01/16) Lung nodule (10/28/14) Lichen simplex chronicus (10/20/10) Left foot drop (04/24/13) Osteoarthritis Lumbar stenosis Degenerative joint disease of right knee History of colitis (10/19/10) Hyperlipidemia History of pulmonary embolus (PE) (10/30/06) Scoliosis Asthma History of DVT (deep vein thrombosis) (10/30/06) Anemia (04/10/17) History of syncope (10/01/17) Paroxysmal atrial fibrillation (03/13/18) DM2 (diabetes mellitus, type 2) Chronic bronchitis Syncope Home Medications ?Medication ?Instructions ?Recorded ?Last Taken ?Type fluticasone 100 mcg-salmeterol 50 1 puff inhalation BI D asthma 01/29/13 Unknown History mcg/dose blistr powdr for inhalation ferrous gluconate 324 mg (37.5 mg 325 mg PO BID iron 0 05/29/18 Unknown History iron) tablet sennosides 8.6 mg-docusate sodium 2 tab PO BID PRN Con stipation 04/15/19 Unknown History 50 mg tablet albuterol sulfate 2.5 mg/3 mL 2.5 mg inhalation Q4H NH N 04/23/19 Unknown History (0.083 %) solution for nebulization shortness of breat h or wheezing acetaminophen 650 mg 650 mg PO Q8H 12/05/21 Unkno wn History tablet,extended release (Tylenol Arthritis Pain) albuterol sulfate 90 mcg/actuation 2 puff inhalation 4 X/DAY PRN asthma 12/05/21 Unknown History aerosol inhaler famotidine 40 mg tablet 40 mg PO DAILY 12/05/21 Unkn own History cetirizine 10 mg tablet 10 mg PO DAILY PRN allergy s ymptoms 06/21/22 Unknown History gabapentin 600 mg tablet 600 mg PO TID 06/21/22 Unkno wn History pioglitazone 30 mg tablet 30 mg PO DAILY 06/21/22 Unkn own History rivaroxaban 15 mg tablet (Xarelto) 15 mg PO DAILY #90 tabs 12/19/22 Unknown Rx atorvastatin 40 mg tablet 40 mg PO DAILY #90 tabs 03/21 10/12 Unknown Rx lisinopril 2.5 mg tablet 2.5 mg PO DAILY #90 tabs Unknown Rx solifenacin 5 mg tablet 5 mg PO QDAY 05/27/24 Unknow n History ascorbic acid (vitamin C) 500 mg 500 mg PO DAILY 06/09 Unknown History tablet citalopram 10 mg tablet 10 mg PO DAILY 06/09/24 Unkn own History methocarbamol 500 mg tablet 250 - 500 mg PO BID PRN NH N muscle 06/09/24 Unknown History spasm tramadol 50 mg tablet 25 - 50 mg PO BID PRN PRN pa in 06/09/24 Unknown History Allergy/AdvReac Type Severity Reaction Status Date / Time cider vinegar Allergy NEEDS Verified 06/09/24 20:23 FOLLOW-UP cottonseed oil Allergy NEEDS Verified 06/09/24 20:23 FOLLOW-UP grass pollen Allergy NEEDS Verified 06/09/24 20:23 FOLLOW-UP morphine Allergy Unknown Verified 06/09/24 20:23 oxycodone HCl (From Allergy Unknown Verified 06/09/24 20:23 OxyContin) propoxyphene HCl (From Allergy Unknown Verified 06/09/24 20:23 Darvon) wool Allergy NEEDS Verified 06/09/24 20:23 FOLLOW-UP chlorhexidine AdvReac Rash Verified 06/09/24 20:23 feathers AdvReac NEEDS Verified 06/09/24 20:23 FOLLOW-UP Family History Mother CAD (coronary artery disease) DVT (deep venous thrombosis) Hypertension Father Prostate cancer Sister Breast cancer Surgical History History of total right hip replacement (09/17/18) History of total right knee replacement (2008) History of hysterectomy (1999) History of bilateral salpingo-oophorectomy (1999) H/O transurethral destruction of bladder lesion (03/26/14) History of fractured kneecap (2007) History of partial knee replacement (2006) H/O thumb surgery (2003) Status post ORIF of fracture of ankle (1986) H/O tubal ligation (1988) History of laparoscopy (1999) History of lumbar laminectomy (11/05/12) Status post insertion of inferior vena caval filter (10/30/06) History of colonoscopy (05/17/11) History of (1988) Patellar tendon rupture History of knee replacement (09/02/06) Social History Smoking Status: Former smoker quit date: 02/18/69 alcohol intake: never substance use type: does not use caffeine: Yes Type: coffee Number of servings: 1 ROS ROS Narrative Patient denies any recent changes to eyes ears nose or throat heart or lungs bowel or bladder. She does use Metamucil for history of constipation Vital Signs Vital Signs Vital Signs: 06/09/24 20:19 06/09/24 20:25 06/09/24 22:22 Temperature 98.1 F Temperature Source Oral Pulse Rate 62 70 Respiratory Rate 15 18 Respiratory Effort Normal Non-Labored Respiratory Depth Normal Respiratory Pattern Normal Blood Pressure 166/102 H 153/88 H Blood Pressure Mean 123 109 Blood Pressure Source Blood Pressure Position Blood Pressure Location Pulse Ox 100 99 Oxygen Delivery Method Room Air Room Air 06/09/24 22:53 06/10/24 00:14 06/10/24 00:21 Temperature 98.2 F 98.8 F Temperature Source Oral Pulse Rate 73 73 67 Respiratory Rate 18 16 Respiratory Effort Respiratory Depth Respiratory Pattern Blood Pressure 153/88 H 141/79 H Blood Pressure Mean 109 99 Blood Pressure Source Blood Pressure Position Blood Pressure Location Pulse Ox 97 100 Oxygen Delivery Method Room Air 06/10/24 00:58 06/10/24 05:22 06/10/24 07:25 Temperature 98.7 F Temperature Source Oral Pulse Rate 70 77 Respiratory Rate 18 17 Respiratory Effort Normal Respiratory Depth Normal Respiratory Pattern Normal Normal Blood Pressure 131/69 H Blood Pressure Mean 89 Blood Pressure Source Blood Pressure Position Blood Pressure Location Pulse Ox 97 Oxygen Delivery Method Room Air Room Air 06/10/24 08:17 06/10/24 08:20 06/10/24 08:37 Temperature 97.2 F L Temperature Source Temporal Pulse Rate 86 Respiratory Rate 18 Respiratory Effort Normal Respiratory Depth Normal Respiratory Pattern Normal Blood Pressure 109/54 L Blood Pressure Mean 72 Blood Pressure Source Monitor Blood Pressure Position Semi-Fowlers Blood Pressure Location Right Arm Pulse Ox 96 95 Oxygen Delivery Method Room Air Room Air Room Air 06/10/24 14:00 Temperature Temperature Source Pulse Rate 78 Respiratory Rate 18 Respiratory Effort Respiratory Depth Respiratory Pattern Normal Blood Pressure Blood Pressure Mean Blood Pressure Source Blood Pressure Position Blood Pressure Location Pulse Ox Oxygen Delivery Method Weight Weight: 76.5 kg Body Mass Index (BMI) 31.8 Physical Exam Narrative Right knee has well-healed incision anteriorly. Right thigh has pain on palpation at the mid and lower shaft. She can plantarflex and dorsiflex right foot and ankle. This causes pain at the thigh. She has good dorsalis pedis pulse on the right. She had no calf pain bilaterally. Negative Homans' sign bilaterally. Right side was not overly stressed. Left side had no significant pain on palpation or with axial loading. X-rays reviewed from June 09, 2024 showing a displaced spiral fracture of the right distal femur above the total knee replacement and below a total hip replacement. Lab / Micro Data Attestation: I reviewed the patient's lab results. 06/10/24 05:06 06/10/24 05:06 Labs: Laboratory Results - last 24 hr 06/09/24 20:27: WBC 11.5 H, RBC 3.17 L, Hgb 9.9 L, Hct 30.9 L, MCV 97.5, MCH 31.2, MCHC 32.0, RDW Std Deviation 51.5 H, RDW Coeff of Mahin 14.4, Plt Count 163, MPV 10.1, Immature Gran % (Auto) 0.400, Neut % (Auto) 75.0 H, Lymph % (Auto) 16.4 L, [place] % (Auto) 7.0, Eos % (Auto) 1.0, Baso % (Auto) 0.2, Absolute Neuts (auto) 8.6 H, Absolute Lymphs (auto) 1.89, Nucleated RBC % 0, PT 16.0 H, INR 1.3, Sodium 140, Potassium 5.1, Chloride 108, Carbon Dioxide 21.6, Anion Gap 10, BUN 36 H, Creatinine 1.37 H, Estim Creat Clear Calc 37.99 L, Est GFR (MDRD) Non- Af 41 L, BUN/Creatinine Ratio 26.4 H, Glucose 259 H, Calcium 9.5, Magnesium 2.0 06/09/24 22:15: Blood Type A POSITIVE, Antibody Screen NEGATIVE 06/10/24 01:23: POC Glucose 205 H 06/10/24 05:06: WBC 8.9, RBC 3.02 L, Hgb 9.3 L, Hct 29.6 L, MCV 98.0, MCH 30.8, MCHC 31.4 L, RDW Std Deviation 50.7 H, RDW Coeff of Mahin 14.2, Plt Count 143 L, MPV 10.0, Immature Gran % (Auto) 0.300, Neut % (Auto) 66.9, Lymph % (Auto) 21.6, [place] % (Auto) 9.4, Eos % (Auto) 1.5, Baso % (Auto) 0.3, Absolute Neuts (auto) 6.0, Absolute Lymphs (auto) 1.93, Nucleated RBC % 0, PT 14.5, INR 1.1, APTT 26.2, Sodium 141, Potassium 4.9, Chloride 109 H, Carbon Dioxide 21.9, Anion Gap 11, BUN 30 H, Creatinine 1.22 H, Estim Creat Clear Calc 38.43 L, Est GFR (MDRD) Non-Af 47 L, BUN/Creatinine Ratio 24.6 H, Glucose 168 H, Hemoglobin A1c 7.2 H, Calcium 9.3, Phosphorus 3.5, Total Bilirubin 0.50, AST 22, ALT 16, Alkaline Phosphatase 95, Total Protein 6.6, Albumin 3.8, Globulin 2.9, Albumin/Globulin Ratio 1.3, TSH 2.210 06/10/24 05:48: POC Glucose 172 H 06/10/24 11:27: POC Glucose 256 H Imaging Radiology Impression Chest X-Ray 06/09/24 21:00 IMPRESSION: No Acute Findings. Reading Location: [facility] Femur X-Ray 06/09/24 21:00 IMPRESSION: Acute posteromedially displaced spiral fracture of the distal shaft of the right femur. Reading Location: [facility] Knee X-Ray 06/09/24 21:00 IMPRESSION: Acute posteromedially displaced spiral fracture of the distal shaft of the femur. Status post total knee arthroplasty. Reading Location: [facility] Pelvis X-Ray 06/09/24 21:00 IMPRESSION: NO EVIDENCE OF PELVIC FRACTURE Reading Location: [facility] Assessment & Plan Assessment/Plan (1) Spiral fracture of shaft of femur: QUALIFIERS: Encounter type: initial encounter Fracture type: c losed Fracture alignment: displaced Laterality: right Qualified Code(s): S 72.341A - Displaced spiral fracture of shaft of right femur, initial encounter for closed fracture PLAN: Her diagnosis and treatment options regarding her displaced right femoral shaft fracture discussed with her at length. Surgical and nonsurgical options discussed. Surgery is recommended. Possibility of open reduction internal fixation using a long plate, or intramedullary rodding with possible cerclage wiring discussed. Risk benefits and alternative procedures described. Based on patient's multiple medical comorbidities including history of DVT/pulmonary embolism, blood thinner use, anemia, obesity, chronic kidney disease cardiomyopathy and other medical comorbidities I think she would benefit from having a smaller incision and hopefully shorter surgical time with retrograde femoral nailing. She understands with either procedure we will limit her weightbearing postoperatively to allow for bone healing. She understands with either procedure most likely she will need a wheelchair with using a walker to stand and pivot with weight on her noninjured leg. She may need to be transferred to an F on discharge. She is not certain her house will accommodate a wheelchair. X-rays and case reviewed with my associates, Dr. Blevins and Dr. Cota. They agree with assessment regarding options for plating versus nailing. Risk of surgery including but not limited to from operative or postoperative complications. Risk of anesthetic complications such as heart attacks, strokes, seizures, or . Risk of infections. Risk of damage to nerves arteries tendons. Risk of inadvertent fractures or dislocations. Risk of bone or wound healing complications. Possibility of nonunion malunion pain stiffness weakness. Possible need for further surgery such as hardware removal. Risk of DVT PE and other potential complications could lead to or disability explained. No guarantees were stated or implied. All of their questions were answered. Appropriate informed consent was obtained and signed for surgical intervention. Will plan to use Ancef for perioperative antibiotic. Will plan to resume Xarelto postoperatively. Case discussed with Dr. George.
[2024-06-10 17:01] LABS: Bedside Glucose 177 mg/dL (74-106)
--- NOTE | 2024-06-10 18:12 | PCM.PN.HOSP ---
Reason for Visit Reason for Visit: Diagnoses Overweight (06/09/24) Foot drop, left foot (06/09/24) Displaced spiral fracture of shaft of right femur, initial encounter for closed fracture (06/09/24) Unspecified fracture of right femur, initial encounter for closed fracture (06/09/24) Unspecified fall, initial encounter (06/09/24) [facility] (current) use of anticoagulants (06/09/24) Personal history of pulmonary embolism (06/09/24) Personal history of other venous thrombosis and embolism (06/09/24) Presence of right artificial hip joint (06/09/24) Presence of right artificial knee joint (06/09/24) Subjective Subjective Patient was seen and examined today, she did not appear to be in any distress and she had no complaints for this examiner. I talked with orthopedic surgery about her care today and the plan is to take her tomorrow for an ORIF to repair the femur fracture. Objective Data Objective Data Vital Signs: Vital Signs Temp Pulse Resp BP Pulse Ox O2 Del Method 97.7 F L 89 18 104/56 L 96 Room Air 06/10/24 15:56 06/10/24 15:56 06/10/24 15:56 06/10/24 15:56 06/10/24 15:56 06/10/24 15:56 Oxygen Delivery Method Room Air Weight: 76.5 kg Body Mass Index (BMI) 31.8 Intake & Output: Intake and Output for Last 24 Hours 06/08/24 06/09/24 06/10/24 23:59 23:59 23:59 Intake Total 1000 / 1000 Output Total 1400 / 1400 Balance -400 / -400 Lab / Micro Data 06/10/24 05:06 06/10/24 05:06 Labs: Laboratory Results - last 24 hr 06/09/24 20:27: WBC 11.5 H, RBC 3.17 L, Hgb 9.9 L, Hct 30.9 L, MCV 97.5, MCH 31.2, MCHC 32.0, RDW Std Deviation 51.5 H, RDW Coeff of Mahin 14.4, Plt Count 163, MPV 10.1, Immature Gran % (Auto) 0.400, Neut % (Auto) 75.0 H, Lymph % (Auto) 16.4 L, [place] % (Auto) 7.0, Eos % (Auto) 1.0, Baso % (Auto) 0.2, Absolute Neuts (auto) 8.6 H, Absolute Lymphs (auto) 1.89, Nucleated RBC % 0, PT 16.0 H, INR 1.3, Sodium 140, Potassium 5.1, Chloride 108, Carbon Dioxide 21.6, Anion Gap 10, BUN 36 H, Creatinine 1.37 H, Estim Creat Clear Calc 37.99 L, Est GFR (MDRD) Non-Af 41 L, BUN/Creatinine Ratio 26.4 H, Glucose 259 H, Calcium 9.5, Magnesium 2.0 06/09/24 22:15: Blood Type A POSITIVE, Antibody Screen NEGATIVE 06/10/24 01:23: POC Glucose 205 H 06/10/24 05:06: WBC 8.9, RBC 3.02 L, Hgb 9.3 L, Hct 29.6 L, MCV 98.0, MCH 30.8, MCHC 31.4 L, RDW Std Deviation 50.7 H, RDW Coeff of Mahin 14.2, Plt Count 143 L, MPV 10.0, Immature Gran % (Auto) 0.300, Neut % (Auto) 66.9, Lymph % (Auto) 21.6, [place] % (Auto) 9.4, Eos % (Auto) 1.5, Baso % (Auto) 0.3, Absolute Neuts (auto) 6.0, Absolute Lymphs (auto) 1.93, Nucleated RBC % 0, PT 14.5, INR 1.1, APTT 26.2, Sodium 141, Potassium 4.9, Chloride 109 H, Carbon Dioxide 21.9, Anion Gap 11, BUN 30 H, Creatinine 1.22 H, Estim Creat Clear Calc 38.43 L, Est GFR (MDRD) Non-Af 47 L, BUN/Creatinine Ratio 24.6 H, Glucose 168 H, Hemoglobin A1c 7.2 H, Calcium 9.3, Phosphorus 3.5, Total Bilirubin 0.50, AST 22, ALT 16, Alkaline Phosphatase 95, Total Protein 6.6, Albumin 3.8, Globulin 2.9, Albumin/Globulin Ratio 1.3, TSH 2.210 06/10/24 05:48: POC Glucose 172 H 06/10/24 11:27: POC Glucose 256 H 06/10/24 16:31: POC Glucose 177 H Radiography Diagnostic Testing: Radiology Impression Chest X-Ray 06/09/24 21:00 IMPRESSION: No Acute Findings. Reading Location: [facility] Femur X-Ray 06/09/24 21:00 IMPRESSION: Acute posteromedially displaced spiral fracture of the distal shaft of the right femur. Reading Location: [facility] Knee X-Ray 06/09/24 21:00 IMPRESSION: Acute posteromedially displaced spiral fracture of the distal shaft of the femur. Status post total knee arthroplasty. Reading Location: [facility] Pelvis X-Ray 06/09/24 21:00 IMPRESSION: NO EVIDENCE OF PELVIC FRACTURE Reading Location: [facility] Physical Exam Const alert, oriented x3 and no apparent distress General Appearance: cooperative, well kempt and well developed Orientation / Consciousness: awake, oriented to person, oriented to place and oriented to time HEENT normocephalic, head/scalp atraumatic and moist oral mucous membranes Eyes PERRL, EOMs intact bilaterally and conjunctivae normal Neck supple, no JVD, thyroid normal and no carotid bruits General: trachea midline Resp normal respiratory effort, no retractions, no use of accessory muscles and clear to auscultation bilaterally Auscultation: Negative for rales, rhonchi or wheezes Cardio regular rate, regular rhythm, S1 normal heart sound, S2 normal heart sound, no murmurs, no rub and no gallops GI normal to inspection, nondistended, normoactive bowel sounds, soft to palpation, non-tender and non-distended Extremity no clubbing, cyanosis or edema Skin no rashes or lesions noted General Skin Exam: no breakdown Neuro oriented x3, CN's II-XII intact bilaterally, no focal motor deficits and no sensory deficits noted Sensorium / Orientation: awake and alert Speech: speech normal Psych affect normal Assessment & Plan Assessment/Plan (1) Spiral fracture of shaft of femur: QUALIFIERS: Encounter type: initial encounter Fracture type: closed Fracture alignment: displaced Laterality: right Qualified Code(s): S72.341A - Displaced spiral fracture of shaft of right femur, initial encounter for closed fracture PLAN: Plan 1. Acute displaced spiral fracture of the distal shaft of the right femur-again patient will be seen by orthopedic surgery and undergo ORIF tomorrow #2 dismal atrial fibrillation-patient is off her Xarelto at this time, her last dose was yesterday #3 chronic kidney disease stage IIIa-complicates care, management, recovery, and prognosis #4 type 2 diabetes-patient is on pioglitazone, blood sugars will be monitored and sliding scale insulin will be given as needed #5 essential hypertension-patient will remain on her current medications, blood pressure will be monitored #6 hyperlipidemia-patient is on a statin #7 nonischemic cardiomyopathy-patient's last echocardiogram was in 2020, her ejection fraction at that time was normal, patient will remain on her present medications #8 chronic asthma-patient is on as needed inhalers at the present time, she will receive as needed aerosol treatments while she is in the hospital Patient appears medically stable to undergo ORIF of the right femur. Total clinical time spent by myself addressing the patient's medical issues, reviewing all of her data, and collaborating with patient's care team: 50 minutes Charges/Coding Visit Charges Inpatient E&M: [id number] [facility] L[facility]
[2024-06-10] MEDS: HYDROcodone Bitartrate/Apap 5/325 Tablet PO (21:25)
[2024-06-10] MEDS: Atorvastatin Calcium 40 MG Tablet PO (21:25)
[2024-06-10 21:49] LABS: Bedside Glucose 239 mg/dL (74-106)
[2024-06-10 23:58] LABS: Bedside Glucose 189 mg/dL (74-106)
[2024-06-11] VITALS (18 sets, daily range): BP systolic 105–128; BP diastolic 61–81; PULSE 73–94; RESP 15–18; TEMP 36.3–37.3; O2SAT 92–100; BMI 31.8
[2024-06-11] MEDS: fentaNYL 100 MCG/2 ML Ampul 25 MCG IV (00:35)
[2024-06-11 06:01] LABS: Absolute Lymphocyte Count 2.02 X10^3/uL (0.83-4.51); Absolute Neutrophil Count 4.3 X10^3/uL (2.0-7.7); Basophil# 0.01 X10^3/uL; Basophil% 0.1 % (0-1); Eosinophil# 0.17 X10^3/uL; Eosinophils% 2.3 % (0-5); Hematocrit 26.8 % (37-47); Hemoglobin 8.3 g/dL (12.0-15.0); Lymphocyte # 2.02 X10^3/ul (0.83-4.51); Lymphocyte % 27.4 % (19-41); Mean Corpuscular Hgb 30.6 pg (27.0-32.0); Mean Corpuscular Volume 98.9 fL (81-99); Mean Platelet Vol. 10.1 fl (6.2-12.0); Monocyte# 0.88 X10^3/uL; NRBC Flagged by Analyzer 0 % (0-5); Neutrophil # 4.26 X10^3/uL (2.7-7.7); Neutrophil % 57.9 % (47-70); Platelet Count 118 K/mm3 (150-450); RBC Distribution Width CV 14.5 % (11.6-14.6); RBC Distribution Width SD 52.5 fl (35.1-43.9); Red Blood Count 2.71 M/mm3 (4.2-5.4); White Blood Count 7.4 K/mm3 (4.4-11.0)
[2024-06-11 06:37] LABS: Phosphorus 3.8 mg/dL (2.7-4.5)
[2024-06-11] MEDS: Albuterol 2.5 MG/3 ML VIAL.NEB. 3 MG INHALATION ×2 (06:54→21:23)
[2024-06-11] MEDS: Budesonide Respules 0.5 MG/2 ML AMPUL.NEB. INHALATION ×2 (06:55→21:22)
[2024-06-11 06:56] LABS: Bedside Glucose 168 mg/dL (74-106)
--- NOTE | 2024-06-11 11:42 | PRE.ANES_ITS ---
ASA Classification* ASA Classification ASA Classification: 3 Assessment & Plan Anesthesia* Anesthesia Assessment Anesthesia Assessment: Discussed sedation and/or anesthesia options, risks, benefits, and alternatives with patient/parents/legal guardian/POA. Questions invited. The patient/parents/legal guardian/POA seems to understand and agrees to proceed with anesthesia plan. Reviewed the physical assessment, medical history, allergy history and patient home medications list prior to surgery/procedure/anesthetic and documented any changes. Performed airway and anesthesia risk assessments. Anesthesia Type Anesthesia Type: General History Source History Obtained from:: Patient and Chart Anesthesia Focused Assessment* Temperature: 97.4 F Pulse Rate: 94 Blood Pressure: 105/61 Respiratory Rate: 18 Pulse Ox: 96 Oxygen Delivery Method: Room Air Airway Assessment Mouth opens: >3 cm Mallampati Score: IV Teeth Condition: Dentures (Patient has full upper and lower dentures. They are out.) Neck Range of motion (ROM): Full ROM Focused Labs Anesthesia Preop lab: CBC WBC 7.4 K/mm3 (4.4-11.0) 06/11/24 05:12 06/11/24 RBC 2.71 M/mm3 (4.2-5.4) L 06/11/24 05:12 06/11/24 Hgb 8.3 g/dL (12.0-15.0) L 06/11/24 05:12 06/11/24 Hct 26.8 % (37-47) L 06/11/24 05:12 06/11/24 Plt Count 118 K/mm3 (150-450) L 06/11/24 05:12 06/11/24 CHEMISTRY Potassium 4.9 mmol/L (3.3-5.1) 06/10/24 05:06 06/10/24 Sodium 141 mmol/L (133-145) 06/10/24 05:06 06/10/24 Magnesium 2.0 mg/dL (1.5-2.2) 06/09/24 20:27 06/09/24 Phosphorus 3.8 mg/dL (2.7-4.5) 06/11/24 05:12 06/11/24 BUN 30 mg/dL (4-19) H 06/10/24 05:06 06/10/24 Creatinine 1.22 mg/dL (0.70-1.20) H 06/10/24 05:06 Glucose 168 mg/dL (70-99) H 06/10/24 05:06 06/10/24 POC Glucose 168 mg/dL (74-106) H 06/11/24 06:38 06/11/24 TSH 2.210 uIU/mL (0.300-4.200) 06/10/24 05:06 05/20 05/12 COAG PT 14.5 SECONDS (11.7-14.9) 06/10/24 05:06 Pre-Assessment Diagnosis/Proposed Procedure Planned Operative Procedure(s): Right femur open reduction internal fixation. Possible topher, possible plate. Anesthesia History Anesthesia History - film cleaner: Anesthesia History - film cleaner Hx Hospitalization No 04/15/19 15:10 Any Problems With Anesthesia No 06/11/24 00:40 Cholinesterase deficiency No 06/11/24 00:40 You/Your Family Experience No 06/11/24 00:40 fever (hyperthermia) with Relationship Recent Exposure to Contagious No 06/11/24 00:40 Disease Does patient have nerve No 06/11/24 00:40 stimulator Patient instructed to have device shut off --Does patient have Pacemaker No 06/11/24 10:49 or ICD? When Was Last Pacemaker Check QUESTION #4 FULL TEXT: You/Your Family Experience fever (hyperthermia) with Anesthesia Last Oral Intake Last Oral intake: Last Oral Intake NPO since 00:00 06/11/24 10:49 Meds taken in AM with sips of No 06/11/24 10:49 water? Meds patient instructed to take am of surgery Any additional information?: Yes Meds taken in AM with sips of water?: No PONV PONV - film cleaner: PONV - film cleaner Female HX of Motion Sickness HX of N/V After Surgery Non-Smoker Duration of Surgery greater than 60 minutes Number of Risk Factors PONV Score Height & Weight Height & Weight: Anesthesia: Height & Weight Height 5 ft 1 in 06/11/24 10:49 Weight: 76.4 kg 06/11/24 10:49 Body Mass Index (BMI) 31.8 06/11/24 10:49 Respiratory Assessment Respiratory Assessment - film cleaner: Respiratory Tract Infection Hx - film cleaner Hx Respiratory Tract Infection No 06/11/24 00:40 STOP Sleep Apnea STOP Sleep Apnea - film cleaner: STOP Sleep Apnea - film cleaner Hx Hypertension Yes 06/10/24 00:26 Hx Sleep Apnea No 06/10/24 00:26 CPAP No 04/15/19 15:10 BIPAP No 04/15/19 15:10 Do you snore loudly (louder No 06/10/24 00:26 than talking or can be heard Do you often feel tired/ Yes 06/10/24 00:26 fatigued/ sleepy during daytime? Has anyone observed you stop No 06/10/24 00:26 breathing during sleep? STOP Results Positive 06/10/24 00:26 QUESTION #5 FULL TEXT : Do you snore loudly (louder than talking or can be heard through closed doors)? Tobacco Use History Tobacco Use History - film cleaner: Tobacco Use History - film cleaner Tobacco Use Smoking Status Former smoker 06/10/24 00:26 Hx Tobacco Use No 06/10/24 00:26 Years Smoking Packs Smoked per Day Smoking Cessation Date was Yes - quit smoking within 15 06/10/24 00:26 within the last 15 years years Hx Smoking Cessation Date 02/19/72 06/10/24 00:26 Hx Smoking Cessation Counseling Hematologic Medial History Hematologic Hx - film cleaner: Hematologic Medical Hx - clinical documentation consultant Hx of Blood Transfusion Yes 06/10/24 00:26 Hx of Transfusion in last 3 No 06/10/24 00:26 Months Date of Last Transfusion (if within last 3 months) Ever experience any problems No 06/10/24 00:26 with transfusion(s)? Specify any problems Hx of Preganancy in last 3 N/A 06/10/24 00:26 Months Nurse Filling Out Transfusion [email or web address] 06/10/24 00:26 & Questions: Date: 06/10/24 06/10/24 00:26 Time: 00:30 06/10/24 00:26 Patient unable to answer at this time (ie. confused, unrespo /Reproduction History /Reproductive History - film cleaner: /Reproductive Hx- film cleaner Hx Now No 06/11/24 00:40 Gestational Age (in weeks): EDC: Hx Hx Para Hx Section SAB Active Medications Active Medications: Current Medications Generic Name Dose Route Start Last Admin Trade Name Freq PRN Reason Stop Dose Admin Acetaminophen 650 mg 06/10/24 06:00 06/11/24 05:38 Acetaminophen 325 Mg Tablet PO Not Given Q8 IZABELLA Hydrocodone Bitart/Acetaminophen 2 tablet 06/10/24 13:11 06/10/24 21:25 Hydrocodone Bitartrate/Apap 5/325 Tablet PO 2 tablet Q6H PRN PRN Administration Pain Score 4-10 Al Hydroxide/Mg Hydroxide 30 ml 06/10/24 00:02 Mag Hydrox/Al Hydrox/Simeth 30 Ml Udc PO Q6H PRN PRN Gastric Burning Albuterol Sulfate 2.5 mg 06/10/24 00:02 Albuterol 2.5 Mg/3 Ml Vial.Neb. INHALATION Q4H PRN PRN shortness of breath or wheezing Albuterol Sulfate 3 mg 06/10/24 00:45 06/11/24 06:54 Albuterol 2.5 Mg/3 Ml Vial.Neb. INHALATION 2.5 mg Q6HWA.RT IZABELLA Administration Ascorbic Acid 500 mg 06/10/24 10:00 06/11/24 07:24 Ascorbic Acid 500 Mg Tablet PO Not Given DAILY IZABELLA Atorvastatin Calcium 40 mg 06/10/24 22:00 06/10/24 21:25 Atorvastatin Calcium 40 Mg Tablet PO 40 mg QHS IZABELLA Administration Budesonide 0.5 mg 06/10/24 00:45 06/11/24 06:55 Budesonide Respules 0.5 Mg/2 Ml Ampul.Neb. INHALATION 0.5 mg Q12H.RT IZABELLA Administration Citalopram Hydrobromide 10 mg 06/10/24 10:00 06/11/24 07:24 Citalopram 10 Mg Tablet PO Not Given DAILY [facility] Famotidine 40 mg 06/10/24 10:00 06/11/24 07:24 Famotidine 20 Mg Tablet PO Not Given DAILY [facility] Fentanyl Citrate 25 mcg 06/10/24 00:02 06/11/24 00:35 Fentanyl 100 Mcg/2 Ml Ampul IV 25 mcg Q4H PRN PRN Administration Pain Score 6-10 Ferrous Gluconate 324 mg 06/10/24 10:00 06/11/24 07:24 Ferrous Gluconate 324 Mg Tablet PO Not Given BID IZABELLA Gabapentin 600 mg 06/10/24 06:00 06/11/24 05:38 Gabapentin 600 Mg Tablet PO Not Given TID IZABELLA Glucagon 1 mg 06/10/24 08:35 Glucagon 1 Mg/Ml Syringe IM X1 PRN Hypoglycemia Protocol Sodium Chloride 100 mls @ 15 mls/hr 06/10/24 00:03 IV .Q6H40M PRN Saline Flush Sodium Chloride 100 mls @ 15 mls/hr 06/10/24 00:03 IV .Q6H40M PRN Additional IVPB Infusion Dextrose 250 mls @ 0 mls/hr 06/10/24 08:35 Dextrose 10%-Water IV .Q0M PRN HYPOGLYCEMIA Protocol As Directed Cefazolin Sodium 2 gm/ N/A 20 mls @ 400 mls/hr 06/11/24 12:15 IV 06/11/24 12:17 PREOP ONE Lactated Ringer's 1,000 mls @ 15 mls/hr 06/11/24 11:45 IV .Q48H [facility] Insulin Human Lispro 0 unit 06/10/24 11:00 06/11/24 11:02 Insulin Lispro 100 Unit/Ml Insuln.Pen SC Not Given ACHS [facility] Protocol Lisinopril 2.5 mg 06/10/24 10:00 06/11/24 07:24 Lisinopril 2.5 Mg Tablet PO Not Given DAILY [facility] Protocol Loratadine 10 mg 06/10/24 00:02 Loratadine 10 Mg Tablet PO DAILY PRN PRN allergy symptoms Melatonin 3 mg 06/10/24 00:02 Melatonin 3 Mg Tablet PO QHS PRN PRN INSOMNIA Methocarbamol 250 mg 06/10/24 00:02 06/10/24 01:59 Methocarbamol 500 Mg Tablet PO 250 mg BID PRN PRN Administration muscle spasm Nutritional Formula (Lactose Free) 120 ml 06/10/24 08:00 06/11/24 11:03 Glucerna Shake 120 Ml Liquid PO Not Given TIDCM IZABELLA Senna/Docusate Sodium 2 tablet 06/10/24 00:02 Senna/Docusate Sodium 1 Tablet PO BID PRN PRN Constipation Sodium Chloride 10 - 40 ml 06/10/24 00:03 06/10/24 05:24 0.9% Saline Lock 10 Ml Syringe IV 10 ml UD PRN Administration SALINE FLUSH Tolterodine Tartrate 2 mg 06/10/24 10:00 06/11/24 07:24 Tolterodine Tartrate 2 Mg Cap.Sa PO Not Given DAILY [facility] Medical History Diabetes Former smoker Pulmonary embolism Benign essential HTN Aortic root dilatation Cardiomyopathy Chronic kidney disease, stage 3 Nonrheumatic aortic (valve) stenosis Nonrheumatic tricuspid (valve) insufficiency Nonrheumatic mitral (valve) insufficiency Hemorrhoids Atrophic vaginitis Mixed incontinence Postlaminectomy syndrome (02/01/16) Lung nodule (10/28/14) Lichen simplex chronicus (10/20/10) Left foot drop (04/24/13) Osteoarthritis Lumbar stenosis Degenerative joint disease of right knee History of colitis (10/19/10) Hyperlipidemia History of pulmonary embolus (PE) (10/30/06) Scoliosis Asthma History of DVT (deep vein thrombosis) (10/30/06) Anemia (04/10/17) History of syncope (10/01/17) Paroxysmal atrial fibrillation (03/13/18) DM2 (diabetes mellitus, type 2) Chronic bronchitis Syncope Home Medications ?Medication ?Instructions ?Recorded ?Last Taken ?Type fluticasone 100 mcg-salmeterol 50 1 puff inhalation BI D asthma 01/29/13 Unknown History mcg/dose blistr powdr for inhalation ferrous gluconate 324 mg (37.5 mg 325 mg PO BID iron 0 05/29/18 Unknown History iron) tablet sennosides 8.6 mg-docusate sodium 2 tab PO BID PRN Con stipation 04/15/19 Unknown History 50 mg tablet albuterol sulfate 2.5 mg/3 mL 2.5 mg inhalation Q4H VT N 04/23/19 Unknown History (0.083 %) solution for nebulization shortness of breat h or wheezing acetaminophen 650 mg 650 mg PO Q8H 12/05/21 Unkno wn History tablet,extended release (Tylenol Arthritis Pain) albuterol sulfate 90 mcg/actuation 2 puff inhalation 4 X/DAY PRN asthma 12/05/21 Unknown History aerosol inhaler famotidine 40 mg tablet 40 mg PO DAILY 12/05/21 Unkn own History cetirizine 10 mg tablet 10 mg PO DAILY PRN allergy s ymptoms 06/21/22 Unknown History gabapentin 600 mg tablet 600 mg PO TID 06/21/22 Unkno wn History pioglitazone 30 mg tablet 30 mg PO DAILY 06/21/22 Unkn own History rivaroxaban 15 mg tablet (Xarelto) 15 mg PO DAILY #90 tabs 12/19/22 Unknown Rx atorvastatin 40 mg tablet 40 mg PO DAILY #90 tabs 03/21 10/12 Unknown Rx lisinopril 2.5 mg tablet 2.5 mg PO DAILY #90 tabs Unknown Rx solifenacin 5 mg tablet 5 mg PO QDAY 05/27/24 Unknow n History ascorbic acid (vitamin C) 500 mg 500 mg PO DAILY 06/09 Unknown History tablet citalopram 10 mg tablet 10 mg PO DAILY 06/09/24 Unkn own History methocarbamol 500 mg tablet 250 - 500 mg PO BID PRN VT N muscle 06/09/24 Unknown History spasm tramadol 50 mg tablet 25 - 50 mg PO BID PRN PRN pa in 06/09/24 Unknown History Allergy/AdvReac Type Severity Reaction Status Date / Time cider vinegar Allergy NEEDS Verified 06/09/24 20:23 FOLLOW-UP cottonseed oil Allergy NEEDS Verified 06/09/24 20:23 FOLLOW-UP grass pollen Allergy NEEDS Verified 06/09/24 20:23 FOLLOW-UP morphine Allergy Unknown Verified 06/09/24 20:23 oxycodone HCl (From Allergy Unknown Verified 06/09/24 20:23 OxyContin) propoxyphene HCl (From Allergy Unknown Verified 06/09/24 20:23 Darvon) wool Allergy NEEDS Verified 06/09/24 20:23 FOLLOW-UP chlorhexidine AdvReac Rash Verified 06/09/24 20:23 feathers AdvReac NEEDS Verified 06/09/24 20:23 FOLLOW-UP Family History Mother CAD (coronary artery disease) DVT (deep venous thrombosis) Hypertension Father Prostate cancer Sister Breast cancer Surgical History History of total right hip replacement (09/17/18) History of total right knee replacement (2008) History of hysterectomy (1999) History of bilateral salpingo-oophorectomy (1999) H/O transurethral destruction of bladder lesion (03/26/14) History of fractured kneecap (2007) History of partial knee replacement (2006) H/O thumb surgery (2003) Status post ORIF of fracture of ankle (1986) H/O tubal ligation (1988) History of laparoscopy (1999) History of lumbar laminectomy (11/05/12) Status post insertion of inferior vena caval filter (10/30/06) History of colonoscopy (05/17/11) History of (1988) Patellar tendon rupture History of knee replacement (09/02/06) Social History Smoking Status: Former smoker quit date: 02/18/69 alcohol intake: never substance use type: does not use caffeine: Yes Type: coffee Number of servings: 1 Review of Systems (Anesthesia) ROS Narrative System reviewed and no additional complaints, except as documented.
[2024-06-11] MEDS: Lactated Ringers 1,000 ML 15 ML IV (11:45)
[2024-06-11] MEDS: Ipratropium/Albuterol Sulfate 3 ML AMPUL.NEB INHALATION (12:08)
--- NOTE | 2024-06-11 12:15 | RAD_ITS ---
EXAM: Left femur radiographs, four views CLINICAL HISTORY: Right femur ORIF COMPARISON: Right femur radiographs 06/09/2024 TECHNIQUE: 5 intraoperative spot images were obtained during right femur fracture repair FINDINGS: 5 intraoperative spot images were obtained during open reduction and internal fixation of distal right femur fracture. 321 seconds of fluoroscopic time utilized. On the provided images, there is placement of a distal right femoral intramedullary topher. Documentation of fluoroscopy RAD/Femur Min 2 Views IMPRESSION: Use during ORIF of distal right femur fracture. Please see the operative note for details. [facility]
[2024-06-11] MEDS: Cefazolin 2 GM in Syringe IV (12:38)
--- NOTE | 2024-06-11 14:59 | CHAPLAIN ---
Type of Pastoral Visit ___ Initial Visit ___ Follow-up Visit ___ On-call Visit ___ General Patient Visit ___ Spiritual Assessment ___ Family Conference ___ Bereavement ___ Rapid Response ___ Code Blue ___ Other (describe below) Pastoral Care Referral From ___ Patient ___ Family ___ Nurse ___ Physician ___ Customer Experience Retail Clerk ___ Signal Worker ___ Other (describe below) Sacrament/Intervention ___ Active listening ___ Anointing ___ Bahai ___ Bereavement ___ Communion ___ Camille exploration ___ ___ Life review ___ Prayer ___ Reconciliation ___ Sacrament of Sick ___ Supportive presence ___ Wedding ___ Other (describe below) Pastoral Comments patient and bed were out of the room; left a calling card
--- NOTE | 2024-06-11 15:35 | PCM.OPRPT ---
Problems Associated Problem List Diagnoses (1) Spiral fracture of shaft of femur: Operative Report (Standard) Operative Information Date of Procedure: 06/11/24 Pre-Operative Diagnosis: Spiral fracture right distal femur Post-Operative Diagnosis: Same Surgery/Procedure Performed: Open reduction internal fixation right distal femoral fracture, intramedullary nailing retrograde, cerclage wires data processing systems consultant: Yes Water Filterer: Awilda Fam Tasks completed by shampoo assistant: Closing and Implanting device Additional project administrative assistant?: No Type of Anesthesia: General RN Documented Start/Stop Times: Operation Date: 06/11/24 12:15 Case Time Into Pre-Op 06/11/24 11:41 Out of Pre-Op 06/11/24 12:37 Anesthesia Start 06/11/24 12:38 Into Room 06/11/24 12:38 Procedure Start 06/11/24 13:14 Procedure Start Time: 13:14 Procedure Stop Time: 15:37 Select all DRAINS/GRAFTS/IMPLANTS that apply: None Special Medications: ancef 2 gm Estimated Blood Loss: 200 Specimen collected: No Description of surgery: Patient was taken to the operating room and given a general anesthesia. Appropriate timeout was performed. She was transferred to the OR table. Fluoroscopy was brought in to confirm visualization of the fracture site. SCD on left lower extremity. Right lower extremity was prepped padded draped usual orthopedic sterile fashion for the procedure. Sterile prep triangle was used to help position the leg. Fluoroscopy help guide our incisions. Lateral incision was taken through skin on the lower side of the femur through skin and subcutaneous tissue brings down on the vastus lateralis we dissected behind that above the intermuscular septum down onto the bone. Bleeding controlled with the Bovie. Fracture was identified. Fracture was reduced with traction and rotation with help with project administrative assistant. Fracture clamp was placed with help of fluoroscopy. AP and lateral images taken to show good reduction. 2 Bert cerclage wires were placed around the bone, 1 above the clamp 1 below the clamp. Appropriately tightened down. X-rays taken showing good reduction. Bone clamp removed. At this point we made a an incision over the previous incision from the knee replacement from the mid patella distally. Medial parapatellar arthrotomy carried out. We are careful to avoid damaging to the knee joint implants. Careful dissection brought us down to the intercondylar notch. With help of fluoroscopy a guidepin was placed in the distal femur between the femoral condyle component. His position was verified in AP and lateral fluoroscopic images. We then reamed over this appropriately. We then placed a ball-tipped guide topher from the distal femur up the femoral shaft to the femoral stem. We then confirmed length of our nail. Based on fracture pattern and total hip we decided to go with the 200 mm nail. We ultimately reamed to 12.5 mm. We opened an 11 mm x 200 short nail Bert T2 alpha retrograde and placed it. Gentle tapping was done at the very end of the placement. We are very happy with our construct. With the outrigger device from the nail we placed 4 distal screws. These were advanced locking screws of the appropriate depth based on measurements. Each screw had excellent purchase in bone and seem to be of the most appropriate length. We then gently tapped to the outrigger device to make sure there was no distraction at the fracture site. Clinically and radiographically there was no distraction. We then used the outrigger device to place 2 proximal cross locking screws. 4 screws seem to pass uneventfully which was the more distal screw. Second screw was noted to have the drill and screw skive off the anterior cortex. At this point lateral x-ray was taken to confirm that the more proximal screw was in soft tissue and the more distal of the 2 cross locking screws was anterior to the intramedullary nail but within the bone anteriorly. Proximal screw was removed from the soft tissue. We then used the fluoroscopy image to help place a drill bit through the holes in the nail under standard technique. Outrigger device continued to place us too anteriorly. Appropriate measurements and screws were then placed through the nail locking it nicely. At this point clinically and radiographically were very happy with her construct. We placed the distal Screw. Wounds were thoroughly irrigated. Puncture wounds were closed with inverted 2-0 Vicryl and jacob. 2 larger incisions were repaired with deep 0 Vicryl, then inverted 2-0 Vicryl then skin jacob. Mepilex bandages and OpSite's will be applied. Patient will be partial light weightbearing until postoperative visit #1. At that point in 2 weeks x-rays will be obtained Jacob were removed. We may consider with partial progression with weightbearing at that point. She will be on Eliquis 15 mg daily as she was preoperatively. Ancef will be used for perioperative antibiotic. Patient can be discharged in 1 to 3 days as deemed appropriate by the medical service admitting her Surgical Findings: femur fracture Complications Complications: No Admit VTE Documentation VTE Present on Admission: No VTE Mechan Device Prophylaxis: SCD's VTE Pharm Prophylaxis ordered?: Yes
--- NOTE | 2024-06-11 16:28 | PCM.POST.ANE ---
Anesthesia: Postop Eval I Current Vital Signs Temperature: 99.2 F Pulse Rate: 94 Blood Pressure: 119/77 Respiratory Rate: 16 Pulse Ox: 92 Assessment Airway patent: Yes Spontaneous unlabored respirations: Yes nausea: No Vomiting: No Anesthesia Complication: No Fluid Hydration Crystalloid volume administer (ml): 1,100 Total IV fluid infused: 1,100 Progress Note Anesthesia document: Postop Eval 1 completed: Yes
--- NOTE | 2024-06-11 16:42 | POSTOPAN2_ITS ---
Anesthesia Postop Eval I Sum Postop Eval Completion status Anesthesia document: Postop Eval 1 completed: Yes Anesthesia Postop Eval I Summary Anesthesia Postop Eval I Summary: Anesthesia Postop Eval I: Assessment Summary Airway patent Yes 06/11/24 16:28 CUSTOMER SERVICE CORRESPONDENCE [email or web address] Spontaneous unlabored Yes 06/11/24 16:28 CUSTOMER SERVICE CORRESPONDENCE CLERK.[email or web address] respirations Mental status nausea No 06/11/24 16:28 CUSTOMER SERVICE CORRESPONDENCE CLERK.[email or web address] Vomiting No 06/11/24 16:28 CUSTOMER SERVICE CORRESPONDENCE CLERK.[email or web address] Anesthesia Postop Eval I: Fluid Summary Crystalloid volume administer 1,100 06/11/24 16:28 CUSTOMER SERVICE CORRESPONDENCE CLERK.[email or web address] (ml) Colloids volume administered ( ml) Blood Product volume administered (ml) Total IV fluid infused 1,100 06/11/24 16:28 CUSTOMER SERVICE CORRESPONDENCE CLERK.[email or web address] Anesthesia Postop Eval I: Summary Notes Anesthesia Complication No 06/11/24 16:28 CUSTOMER SERVICE CORRESPONDENCE CLERK.[email or web address] Anesthesia Complication Comment: Post-operative progress note Anesthesia: Postop Eval II Evaluation Mental status: Awake and Calm Pain Level: 2 nausea: No Vomiting: No Complications Anesthesia Complication: No
--- NOTE | 2024-06-11 16:42 | PCM.POSTANE2 ---
Anesthesia Postop Eval I Sum Postop Eval Completion status Anesthesia document: Postop Eval 1 completed: Yes Anesthesia Postop Eval I Summary Anesthesia Postop Eval I Summary: Anesthesia Postop Eval I: Assessment Summary Airway patent Yes 06/11/24 16:28 WEBSPHERE [email or web address] Spontaneous unlabored Yes 06/11/24 16:28 WEBSPHERE [email or web address] respirations Mental status nausea No 06/11/24 16:28 WEBSPHERE ADMINISTRATOR.[email or web address] Vomiting No 06/11/24 16:28 WEBSPHERE [email or web address].[email or web address] Anesthesia Postop Eval I: Fluid Summary Crystalloid volume administer 1,100 06/11/24 16:28 WEBSPHERE [email or web address].[email or web address] (ml) Colloids volume administered ( ml) Blood Product volume administered (ml) Total IV fluid infused 1,100 06/11/24 16:28 WEBSPHERE [email or web address].[email or web address] Anesthesia Postop Eval I: Summary Notes Anesthesia Complication No 06/11/24 16:28 WEBSPHERE [email or web address].[email or web address] Anesthesia Complication Comment: Post-operative progress note Anesthesia: Postop Eval II Evaluation Mental status: Awake and Calm Pain Level: 2 nausea: No Vomiting: No Complications Anesthesia Complication: No
--- NOTE | 2024-06-11 17:14 | PN.HOSP_ITS ---
Reason for Visit Reason for Visit: Diagnoses Overweight (06/09/24) Foot drop, left foot (06/09/24) Displaced spiral fracture of shaft of right femur, initial encounter for closed fracture (06/09/24) Unspecified fracture of right femur, initial encounter for closed fracture (06/09/24) Unspecified fall, initial encounter (06/09/24) alf (current) use of anticoagulants (06/09/24) Personal history of pulmonary embolism (06/09/24) Personal history of other venous thrombosis and embolism (06/09/24) Presence of right artificial hip joint (06/09/24) Presence of right artificial knee joint (06/09/24) Subjective Subjective Patient was seen and examined today, she underwent ORIF of her right distal femoral fracture with intramedullary nailing retrograde and cerclage wires. Objective Data Objective Data Vital Signs: Vital Signs Temp Pulse Resp BP Pulse Ox O2 Del Method O2 Flow Rate 99.2 F H 90 16 121/76 H 95 Nasal Cannula 2 06/11/24 16:28 06/11/24 17:00 06/11/24 17:00 06/11/24 17:00 06/11/24 17:00 06/11/24 17:00 06/11/24 17:00 Oxygen Flow Rate (L/min) 2 Oxygen Delivery Method Nasal Cannula Weight: 76.4 kg Body Mass Index (BMI) 31.8 Intake & Output: Intake and Output for Last 24 Hours 06/09/24 06/10/24 06/11/24 23:59 23:59 23:59 Intake Total 1000 / 1000 Output Total 1400 / 1700 800 / 800 Balance -400 / -700 -800 / -800 Lab / Micro Data 06/12/24 04:14 06/12/24 04:14 Labs: Laboratory Results - last 24 hr 06/10/24 21:29: POC Glucose 239 H 06/10/24 23:32: POC Glucose 189 H 06/11/24 05:12: WBC 7.4, RBC 2.71 L, Hgb 8.3 L, Hct 26.8 L, MCV 98.9, MCH 30.6, MCHC 31.0 L, RDW Std Deviation 52.5 H, RDW Coeff of Mahin 14.5, Plt Count 118 L, MPV 10.1, Immature Gran % (Auto) 0.300, Neut % (Auto) 57.9, Lymph % (Auto) 27.4, [place] % (Auto) 12.0 H, Eos % (Auto) 2.3, Baso % (Auto) 0.1, Absolute Neuts (auto) 4.3, Absolute Lymphs (auto) 2.02, Nucleated RBC % 0, Phosphorus 3.8 06/11/24 06:38: POC Glucose 168 H Radiography Diagnostic Testing: Radiology Impression Femur X-Ray 06/11/24 12:15 IMPRESSION: Use during ORIF of distal right femur fracture. Please see the operative note for details. Reading Location: [facility] Physical Exam Narrative Patient's somnolent and no apparent distress General Appearance: cooperative, well kempt and well developed Orientation / Consciousness: awake, somnolent HEENT normocephalic, head/scalp atraumatic and moist oral mucous membranes Eyes PERRL, EOMs intact bilaterally and conjunctivae normal Neck supple, no JVD, thyroid normal and no carotid bruits General: trachea midline Resp normal respiratory effort, no retractions, no use of accessory muscles and clear to auscultation bilaterally Auscultation: Negative for rales, rhonchi or wheezes Cardio regular rate, regular rhythm, S1 normal heart sound, S2 normal heart sound, no murmurs, no rub and no gallops GI normal to inspection, nondistended, normoactive bowel sounds, soft to palpation, non-tender and non-distended Extremity no clubbing, cyanosis or edema Skin no rashes or lesions noted General Skin Exam: no breakdown Neuro CN's II-XII intact bilaterally, no focal motor deficits and no sensory deficits noted Sensorium / Orientation: awake but somnolent Speech: speech normal Psych affect normal Assessment & Plan Assessment/Plan (1) Closed right femoral fracture: (2) Spiral fracture of shaft of femur: QUALIFIERS: Encounter type: initial encounter Fracture type: c losed Fracture alignment: displaced Laterality: right Qualified Code(s): S 72.341A - Displaced spiral fracture of shaft of right femur, initial encounter for closed fracture PLAN: Plan 1. Acute displaced spiral fracture of the distal shaft of the right femur- postop day 0 ORIF with intramedullary topher #2 Paroxysmal atrial fibrillation-patient will resume her Xarelto tomorrow #3 chronic kidney disease stage IIIa-complicates care, management, recovery, and prognosis #4 type 2 diabetes-patient is on pioglitazone, blood sugars will be monitored and sliding scale insulin will be given as needed #5 essential hypertension-patient will remain on her current medications, blood pressure will be monitored #6 hyperlipidemia-patient is on a statin #7 nonischemic cardiomyopathy-patient's last echocardiogram was in 2020, her ejection fraction at that time was normal, patient will remain on her present medications #8 chronic asthma-patient is on as needed inhalers at the present time, she will receive as needed aerosol treatments while she is in the hospital Total clinical time spent by myself addressing the patient's medical issues, reviewing all of her data, and collaborating with patient's care team: 35 minutes Charges/Coding Visit Charges Inpatient E&M: 15732 Subs Hosp L2
[2024-06-11 17:33] LABS: Bedside Glucose 223 mg/dL (74-106)
[2024-06-11] MEDS: Cefazolin 1 GM/50 ML BAG IV (21:28)
[2024-06-11] MEDS: Gabapentin 600 MG Tablet PO (21:36)
[2024-06-11] MEDS: Atorvastatin Calcium 40 MG Tablet PO ×2 (21:36)
[2024-06-11] MEDS: Ferrous Gluconate 324 MG Tablet PO (21:36)
[2024-06-11] MEDS: Acetaminophen 325 MG Tablet 650 MG PO (21:37)
--- NOTE | 2024-06-11 22:59 | CPS ---
Patient states she does not wear Home CPAP, This VOICE ENGINEER offered patient a CPAP to wear during her stay here. Patient refused
[2024-06-11] MEDS: Insulin Lispro 100 UNIT/ML INSULN.PEN SC (23:15)
[2024-06-11 23:39] LABS: Bedside Glucose 294 mg/dL (74-106)
[2024-06-12 03:10] VITALS: BP 109/59; PULSE 80; RESP 15; TEMP 36.7; O2SAT 97
[2024-06-12] MEDS: Gabapentin 600 MG Tablet PO ×3 (05:10→21:04)
[2024-06-12] MEDS: Cefazolin 1 GM/50 ML BAG IV (05:10)
[2024-06-12] MEDS: Acetaminophen 325 MG Tablet 650 MG PO ×3 (05:11→21:04)
[2024-06-12 05:37] LABS: Hematocrit 25.3 % (37-47); Mean Corp Hgb Conc 31.6 g/dL (32-36); Mean Corpuscular Volume 98.1 fL (81-99); Mean Platelet Vol. 10.6 fl (6.2-12.0); Platelet Count 127 K/mm3 (150-450); RBC Distribution Width CV 13.8 % (11.6-14.6); RBC Distribution Width SD 49.9 fl (35.1-43.9); Red Blood Count 2.58 M/mm3 (4.2-5.4); White Blood Count 7.3 K/mm3 (4.4-11.0)
[2024-06-12 05:52] VITALS: BMI 32.1
[2024-06-12 06:22] LABS: Anion Gap 12 (5-15); BUN 33 mg/dL (4-19); BUN/Creat Ratio 29.3 RATIO (10-20); Calcium,Total 8.8 mg/dL (7.6-11.0); Carbon Dioxide 19.9 mmol/L (21.0-32.0); Chloride 107 mmol/L (98-108); Creatinine, Serum 1.13 mg/dL (0.70-1.20); EST Glomerular Filtration Rate 51 (>60); Estimated Creatinine Clearance 41.72 ml/min (50-250); Glucose 237 mg/dL (70-99); Potassium 4.8 mmol/L (3.3-5.1); Sodium Level 139 mmol/L (133-145)
[2024-06-12] MEDS: Insulin Lispro 100 UNIT/ML INSULN.PEN SC ×4 (06:48→22:19)
[2024-06-12] MEDS: Albuterol 2.5 MG/3 ML VIAL.NEB. 3 MG INHALATION ×2 (06:48→19:30)
[2024-06-12] MEDS: Budesonide Respules 0.5 MG/2 ML AMPUL.NEB. INHALATION ×2 (06:49→19:30)
[2024-06-12 06:53] VITALS: PULSE 85; RESP 16; O2SAT 93
[2024-06-12 07:08] LABS: Bedside Glucose 232 mg/dL (74-106)
--- NOTE | 2024-06-12 07:38 | PCM.PN.ORT ---
Subjective Subjective This 73-year-old female is 1 day following open reduction internal fixation right femoral shaft fracture with retrograde nailing. No adverse events overnight. Pain seems to be well-controlled she denies chest pain shortness of breath dizziness or calf pain she has not yet started working with physical therapy Objective Data Objective Data Vital Signs: Vital Signs Temp Pulse Resp BP Pulse Ox O2 Del Method O2 Flow Rate 98.1 F 85 16 109/59 L 93 Room Air 2 06/12/24 03:10 06/12/24 06:53 06/12/24 06:53 06/12/24 03:10 06/12/24 06:53 06/12/24 06:53 06/12/24 05:00 Oxygen Flow Rate (L/min) 2 Oxygen Delivery Method Room Air Weight: 77.3 kg Body Mass Index (BMI) 32.1 Intake & Output: Intake and Output for Last 24 Hours 06/10/24 06/11/24 06/12/24 23:59 23:59 23:59 Intake Total 1000 / 1000 50 / 150 150 / 150 Output Total 1400 / 1700 900 / 1300 400 / 400 Balance -400 / -700 -850 / -1150 -250 / -250 Lab / Micro Data 06/12/24 04:14 06/12/24 04:14 Labs: Laboratory Results - last 24 hr 06/11/24 17:15: POC Glucose 223 H 06/11/24 23:12: POC Glucose 294 H 06/12/24 04:14: WBC 7.3, RBC 2.58 L, Hgb 8.0 L, Hct 25.3 L, MCV 98.1, MCH 31.0, MCHC 31.6 L, RDW Std Deviation 49.9 H, RDW Coeff of Mahin 13.8, Plt Count 127 L, MPV 10.6, Sodium 139, Potassium 4.8, Chloride 107, Carbon Dioxide 19.9 L, Anion Gap 12, BUN 33 H, Creatinine 1.13, Estim Creat Clear Calc 41.72 L, Est GFR (MDRD) Non-Af 51 L, BUN/Creatinine Ratio 29.3 H, Glucose 237 H, Calcium 8.8 06/12/24 06:47: POC Glucose 232 H Radiography Diagnostic Testing: Radiology Impression Femur X-Ray 06/11/24 12:15 IMPRESSION: Use during ORIF of distal right femur fracture. Please see the operative note for details. Reading [facility] Physical Exam Narrative Patient is alert and oriented x 3 no acute distress at rest breathing easily without respiratory distress inspection of right thigh/femur is with dry intact dressings. Soft tissues are supple and compressible without severe pain or tenderness. Dressings are intact without active drainage erythema warmth or signs of infection. Gentle range of motion right knee is with stiffness and discomfort. No calf pain or swelling bilaterally. Patient has foot drop on the left but is able to actively plantar and dorsiflex the right ankle against resistance sensation intact to light touch pedal pulses present equal bilaterally neurovascularly intact Laboratory results personally reviewed by myself for full details please refer to reports in electronic medical record Assessment & Plan Assessment/Plan (1) Spiral fracture of shaft of femur: QUALIFIERS: Encounter type: initial encounter Fracture alignment: displaced Fracture type: closed Laterality: right Qualified Code(s): S72.341A - Displaced spiral fracture of shaft of right femur, initial encounter for closed fracture PLAN: Status post open reduction internal fixation right femoral shaft fracture with retrograde nailing postoperative day #1 - Continue [place] as needed for pain control -DVT prophylaxis bilateral teds SCDs and resume preoperative dose of Xarelto patient does admit to history of pulmonary embolism -Begin PT/OT order placed partial weightbearing right lower extremity with a walker -Drop in hemoglobin hematocrit with thrombocytopenia likely combination of chronic anemia hemodilution and acute blood loss currently asymptomatic transfusion recommendations per hospitalist if necessary due to other chronic conditions; continue to monitor -Continue discharge planning with case management home versus shelter -Continue postoperative medical management per hospitalist multiple comorbidities -Recommend discontinuing Martin catheter when patient is able to transfer safely to bedside commode -Recommend follow-up with orthopedics 2 weeks in the office x-rays and skin staple removal -Dr. Roberto Blevins will be covering this patient over the weekend until Saturday as Dr. Sivakumar Shannon is out of town. Please do not hesitate to contact us with any further orthopedic concerns she is otherwise orthopedically stable and okay for discharge when cleared medically having adequate pain control and doing well with physical therapy
[2024-06-12] MEDS: HYDROcodone Bitartrate/Apap 5/325 Tablet PO (08:19)
[2024-06-12 08:48] VITALS: BP 113/64; PULSE 83; RESP 16; TEMP 36.8; O2SAT 95
[2024-06-12] MEDS: Tolterodine Tartrate 2 MG CAP.SA PO (10:55)
[2024-06-12] MEDS: Citalopram 10 MG Tablet PO (10:55)
[2024-06-12] MEDS: Famotidine 20 MG Tablet 40 MG PO (10:55)
[2024-06-12] MEDS: Ferrous Gluconate 324 MG Tablet PO ×2 (10:55→21:04)
[2024-06-12] MEDS: Lisinopril 2.5 MG Tablet PO (10:56)
[2024-06-12] MEDS: Rivaroxaban 15 MG Tablet PO (10:56)
[2024-06-12] MEDS: Ascorbic Acid 500 MG Tablet PO (10:56)
[2024-06-12 11:41] LABS: Bedside Glucose 233 mg/dL (74-106)
--- NOTE | 2024-06-12 12:10 | CASEMGMT ---
Social Work SW met with pt to discuss discharge plan. Pt is hopeful she can return home at time of discharge. SW reviewed therapy notes with pt and that pt was able to ambulate 4 ft at min Ax2 and that pt may need short term rehab prior to returning home. Pt is requesting SW call her daughter in law Che and allow her to make decision of need for SNF. Phone call to pt dgt in law Che and SW explained above. Yane state family would like pt to go to TCU at time of discharge. Yane denies need for a list of SNF providers as pt has been to TCU in the past and they would like to go to TCU again. Referral to Natalie in TCU. Pt will need precert and precert cannot be submitted until 48 hours after surgery. Pt to be reevaluated on Saturday for placement at TCU. Pt and Yane updated. Plan: TCU, pending final acceptance and precert PRIYANKA Malave
--- NOTE | 2024-06-12 12:48 | CHAPLAIN ---
Type of Pastoral Visit _x__ Initial Visit ___ Follow-up Visit ___ On-call Visit ___ General Patient Visit ___ Spiritual Assessment ___ Family Conference ___ Bereavement ___ Rapid Response ___ Code Blue ___ Other (describe below) Pastoral Care Referral From _x__ Patient ___ Family ___ Nurse ___ Physician ___ [employer]athing [employer] ___ Professor Of Anthropology ___ Other (describe below) Sacrament/Intervention _x__ Active listening ___ Anointing ___ Synagogue ___ Bereavement ___ Communion ___ Camille exploration ___ _x__ Life review _x__ Prayer ___ Reconciliation ___ Sacrament of Sick ___ Supportive presence ___ Wedding ___ Other (describe below) Pastoral Comments patient is grooming herself as the visit begins and continues; pt talks about random things including her dogs, her health, her restoration, her sons, her home; pt does not seek any particular intervention but welcomes someone to talk with and a prayer
[2024-06-12 14:59] VITALS: BP 101/59; PULSE 87; RESP 16; TEMP 36.8; O2SAT 95
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
[2024-06-12 17:10] LABS: Bedside Glucose 249 mg/dL (74-106)
[2024-06-12 19:30] VITALS: PULSE 98; RESP 14
--- NOTE | 2024-06-12 19:39 | PN.HOSP_ITS ---
Reason for Visit Reason for Visit: Diagnoses Overweight (06/09/24) Foot drop, left foot (06/09/24) Displaced spiral fracture of shaft of right femur, initial encounter for closed fracture (06/09/24) Unspecified fracture of right femur, initial encounter for closed fracture (06/09/24) Unspecified fall, initial encounter (06/09/24) senior care (current) use of anticoagulants (06/09/24) Personal history of pulmonary embolism (06/09/24) Personal history of other venous thrombosis and embolism (06/09/24) Presence of right artificial hip joint (06/09/24) Presence of right artificial knee joint (06/09/24) Subjective Subjective Patient was seen and examined today, hemoglobin was 8, other than right leg discomfort she has no complaints. Objective Data Objective Data Vital Signs: Vital Signs Temp Pulse Resp BP Pulse Ox O2 Del Method O2 Flow Rate 98.2 F 87 16 101/59 L 95 Room Air 2 06/12/24 14:59 06/12/24 14:59 06/12/24 14:59 06/12/24 14:59 06/12/24 14:59 06/12/24 14:59 06/12/24 05:00 Oxygen Flow Rate (L/min) 2 Oxygen Delivery Method Room Air Weight: 77.3 kg Body Mass Index (BMI) 32.1 Intake & Output: Intake and Output for Last 24 Hours 06/10/24 06/11/24 06/12/24 23:59 23:59 23:59 Intake Total 1000 / 1000 50 / 150 150 / 150 Output Total 1400 / 1700 900 / 1300 950 / 950 Balance -400 / -700 -850 / -1150 -800 / -800 Lab / Micro Data 06/12/24 04:14 06/12/24 04:14 Labs: Laboratory Results - last 24 hr 06/11/24 23:12: POC Glucose 294 H 06/12/24 04:14: WBC 7.3, RBC 2.58 L, Hgb 8.0 L, Hct 25.3 L, MCV 98.1, MCH 31.0, MCHC 31.6 L, RDW Std Deviation 49.9 H, RDW Coeff of Mahin 13.8, Plt Count 127 L, MPV 10.6, Sodium 139, Potassium 4.8, Chloride 107, Carbon Dioxide 19.9 L, Anion Gap 12, BUN 33 H, Creatinine 1.13, Estim Creat Clear Calc 41.72 L, Est GFR (MDRD) Non-Af 51 L, BUN/Creatinine Ratio 29.3 H, Glucose 237 H, Calcium 8.8 06/12/24 06:47: POC Glucose 232 H 06/12/24 11:21: POC Glucose 233 H 06/12/24 16:52: POC Glucose 249 H Physical Exam Const alert, oriented x3 and no apparent distress General Appearance: cooperative, well kempt and well developed Orientation / Consciousness: awake, oriented to person, oriented to place and oriented to time HEENT normocephalic, head/scalp atraumatic and moist oral mucous membranes Eyes PERRL, EOMs intact bilaterally and conjunctivae normal Neck supple, no JVD, thyroid normal and no carotid bruits General: trachea midline Resp normal respiratory effort, no retractions, no use of accessory muscles and clear to auscultation bilaterally Auscultation: Negative for rales, rhonchi or wheezes Cardio regular rate, regular rhythm, S1 normal heart sound, S2 normal heart sound, no rub and no gallops Cardio Narrative: There is a 2/6 systolic murmur noted at the apex and left sternal border GI normal to inspection, nondistended, normoactive bowel sounds, soft to palpation, non-tender and non-distended Extremity no clubbing, cyanosis or edema Skin no rashes or lesions noted General Skin Exam: no breakdown Neuro oriented x3, CN's II-XII intact bilaterally, no focal motor deficits and no sensory deficits noted Sensorium / Orientation: awake and alert Speech: speech normal Psych affect normal Assessment & Plan Assessment/Plan (1) Spiral fracture of shaft of femur: QUALIFIERS: Encounter type: initial encounter Fracture type: c losed Fracture alignment: displaced Laterality: right Qualified Code(s): S 72.341A - Displaced spiral fracture of shaft of right femur, initial encounter for closed fracture (2) Closed right femoral fracture: PLAN: Plan 1. Acute displaced spiral fracture of the distal shaft of the right femur- postop day 0 ORIF with intramedullary topher #2 Paroxysmal atrial fibrillation-patient is on Xarelto #3 chronic kidney disease stage IIIa-complicates care, management, recovery, and prognosis #4 type 2 diabetes-patient is on pioglitazone, blood sugars will be monitored and sliding scale insulin will be given as needed #5 essential hypertension-patient will remain on her current medications, blood pressure will be monitored #6 hyperlipidemia-patient is on a statin #7 nonischemic cardiomyopathy-patient's last echocardiogram was in 2020, her ejection fraction at that time was normal, patient will remain on her present medications #8 chronic asthma-patient is on as needed inhalers at the present time, she will receive as needed aerosol treatments while she is in the hospital Total clinical time spent by myself addressing the patient's medical issues, reviewing all of her data, and collaborating with patient's care team: 35 minutes Charges/Coding Visit Charges Inpatient E&M: 20531 Subs Hosp L2
[2024-06-12 20:50] VITALS: BP 102/53; PULSE 100; RESP 15; TEMP 37.2; O2SAT 95
[2024-06-12 22:40] LABS: Bedside Glucose 321 mg/dL (74-106)
[2024-06-13] VITALS (7 sets, daily range): BP systolic 91–101; BP diastolic 52–61; PULSE 78–101; RESP 14–16; TEMP 36.4–37.3; O2SAT 94–100; BMI 32.1
[2024-06-13] MEDS: HYDROcodone Bitartrate/Apap 5/325 Tablet PO ×2 (02:36→09:17)
[2024-06-13] MEDS: Insulin Lispro 100 UNIT/ML INSULN.PEN SC ×4 (06:54→21:20)
[2024-06-13] MEDS: Gabapentin 600 MG Tablet PO ×3 (06:54→21:14)
[2024-06-13] MEDS: Acetaminophen 325 MG Tablet 650 MG PO ×3 (06:54→21:13)
[2024-06-13 07:15] LABS: Bedside Glucose 202 mg/dL (74-106)
[2024-06-13] MEDS: Albuterol 2.5 MG/3 ML VIAL.NEB. 3 MG INHALATION ×2 (07:25→13:15)
[2024-06-13] MEDS: Budesonide Respules 0.5 MG/2 ML AMPUL.NEB. INHALATION ×2 (07:26→19:25)
[2024-06-13] MEDS: Rivaroxaban 15 MG Tablet PO (09:12)
[2024-06-13] MEDS: Famotidine 20 MG Tablet 40 MG PO (09:12)
[2024-06-13] MEDS: Citalopram 10 MG Tablet PO (09:12)
[2024-06-13] MEDS: Ascorbic Acid 500 MG Tablet PO (09:12)
[2024-06-13] MEDS: Ferrous Gluconate 324 MG Tablet PO ×2 (09:12→21:14)
[2024-06-13] MEDS: Tolterodine Tartrate 2 MG CAP.SA PO (09:12)
--- NOTE | 2024-06-13 11:36 | PN.HOSP_ITS ---
Reason for Visit Reason for Visit: Diagnoses Overweight (06/09/24) Foot drop, left foot (06/09/24) Displaced spiral fracture of shaft of right femur, initial encounter for closed fracture (06/09/24) Unspecified fracture of right femur, initial encounter for closed fracture (06/09/24) Unspecified fall, initial encounter (06/09/24) [facility] (current) use of anticoagulants (06/09/24) Personal history of pulmonary embolism (06/09/24) Personal history of other venous thrombosis and embolism (06/09/24) Presence of right artificial hip joint (06/09/24) Presence of right artificial knee joint (06/09/24) Subjective Subjective Patient was seen and examined today, she has no complaints of any shortness of breath or chest discomfort, she does have some pain in her right leg due to her surgery Objective Data Objective Data Vital Signs: Vital Signs Temp Pulse Resp BP Pulse Ox O2 Del Method O2 Flow Rate 97.6 F L 79 16 93/60 94 Room Air 2 06/13/24 09:09 06/13/24 09:09 06/13/24 09:09 06/13/24 09:09 06/13/24 09:09 06/13/24 09:09 06/12/24 05:00 Oxygen Flow Rate (L/min) 2 Oxygen Delivery Method Room Air Weight: 77.2 kg Body Mass Index (BMI) 32.1 Intake & Output: Intake and Output for Last 24 Hours 06/11/24 06/12/24 06/13/24 23:59 23:59 23:59 Intake Total 50 / 150 150 / 150 Output Total 900 / 1300 950 / 950 350 / 350 Balance -850 / -1150 -800 / -800 -350 / -350 Lab / Micro Data 06/12/24 04:14 06/12/24 04:14 Labs: Laboratory Results - last 24 hr 06/12/24 11:21: POC Glucose 233 H 06/12/24 16:52: POC Glucose 249 H 06/12/24 22:18: POC Glucose 321 H 06/13/24 06:52: POC Glucose 202 H Physical Exam Narrative Patient's somnolent and no apparent distress General Appearance: cooperative, well kempt and well developed Orientation / Consciousness: awake, somnolent HEENT normocephalic, head/scalp atraumatic and moist oral mucous membranes Eyes PERRL, EOMs intact bilaterally and conjunctivae normal Neck supple, no JVD, thyroid normal and no carotid bruits General: trachea midline Resp normal respiratory effort, no retractions, no use of accessory muscles and clear to auscultation bilaterally Auscultation: Negative for rales, rhonchi or wheezes Cardio regular rate, regular rhythm, S1 normal heart sound, S2 normal heart sound, no murmurs, no rub and no gallops GI normal to inspection, nondistended, normoactive bowel sounds, soft to palpation, non-tender and non-distended Extremity no clubbing, cyanosis or edema Skin no rashes or lesions noted General Skin Exam: no breakdown Neuro CN's II-XII intact bilaterally, no focal motor deficits and no sensory deficits noted Sensorium / Orientation: awake but somnolent Speech: speech normal Psych affect normal Assessment & Plan Assessment/Plan (1) Spiral fracture of shaft of femur: QUALIFIERS: Encounter type: initial encounter Fracture type: c losed Fracture alignment: displaced Laterality: right Qualified Code(s): S 72.341A - Displaced spiral fracture of shaft of right femur, initial encounter for closed fracture (2) Closed right femoral fracture: PLAN: Plan 1. Acute displaced spiral fracture of the distal shaft of the right femur- postop day 1 ORIF with intramedullary topher, continue PT and OT, patient has requested to go to TCU for short-term inpatient rehab services, request to her insurance has been placed #2 Paroxysmal atrial fibrillation-patient is on Xarelto #3 chronic kidney disease stage IIIa-complicates care, management, recovery, and prognosis #4 type 2 diabetes-patient is on pioglitazone, blood sugars will be monitored and sliding scale insulin will be given as needed #5 essential hypertension-patient will remain on her current medications, blood pressure will be monitored #6 hyperlipidemia-patient is on a statin #7 nonischemic cardiomyopathy-patient's last echocardiogram was in 2020, her ejection fraction at that time was normal, patient will remain on her present medications #8 chronic asthma-patient is on as needed inhalers at the present time, she will receive as needed aerosol treatments while she is in the hospital Total clinical time spent by myself addressing the patient's medical issues, reviewing all of her data, and collaborating with patient's care team: 35 minutes Charges/Coding Visit Charges Inpatient E&M: 48759 Subs Hosp L2
[2024-06-13 12:03] LABS: Bedside Glucose 292 mg/dL (74-106)
[2024-06-13] MEDS: 0.9% Saline Lock 10 ML Syringe IV ×2 (14:43→21:21)
[2024-06-13 17:25] LABS: Bedside Glucose 307 mg/dL (74-106)
[2024-06-13] MEDS: Albuterol 2.5 MG/3 ML VIAL.NEB. INHALATION (19:25)
[2024-06-13] MEDS: Atorvastatin Calcium 40 MG Tablet PO (21:14)
[2024-06-13 22:01] LABS: Bedside Glucose 211 mg/dL (74-106)
[2024-06-14 02:02] VITALS: BP 111/58; PULSE 98; RESP 16; TEMP 37.2; O2SAT 99
[2024-06-14] MEDS: HYDROcodone Bitartrate/Apap 5/325 Tablet PO ×2 (02:06→20:08)
[2024-06-14] MEDS: Acetaminophen 325 MG Tablet 650 MG PO ×3 (06:06→21:28)
[2024-06-14] MEDS: Gabapentin 600 MG Tablet PO ×3 (06:06→21:28)
[2024-06-14] MEDS: Insulin Lispro 100 UNIT/ML INSULN.PEN SC ×4 (06:06→21:28)
[2024-06-14] MEDS: Budesonide Respules 0.5 MG/2 ML AMPUL.NEB. INHALATION ×2 (06:28→19:05)
[2024-06-14] MEDS: Albuterol 2.5 MG/3 ML VIAL.NEB. INHALATION ×2 (06:28→19:05)
[2024-06-14 06:29] VITALS: PULSE 88; RESP 18; O2SAT 99
[2024-06-14 06:36] LABS: Bedside Glucose 249 mg/dL (74-106)
[2024-06-14 08:00] VITALS: BP 97/57; PULSE 95; RESP 15; TEMP 36.7; O2SAT 98
[2024-06-14] MEDS: Rivaroxaban 15 MG Tablet PO (08:51)
[2024-06-14] MEDS: Ferrous Gluconate 324 MG Tablet PO ×2 (08:51→21:28)
[2024-06-14] MEDS: Tolterodine Tartrate 2 MG CAP.SA PO (08:51)
[2024-06-14] MEDS: Citalopram 10 MG Tablet PO (08:51)
[2024-06-14] MEDS: Famotidine 20 MG Tablet 40 MG PO (08:51)
[2024-06-14] MEDS: Ascorbic Acid 500 MG Tablet PO (08:51)
[2024-06-14 11:48] LABS: Bedside Glucose 297 mg/dL (74-106)
[2024-06-14] MEDS: 0.9% Saline Lock 10 ML Syringe IV (14:10)
[2024-06-14 14:30] VITALS: BP 119/74; PULSE 99; RESP 15; TEMP 36.7; O2SAT 100
--- NOTE | 2024-06-14 14:43 | PN.HOSP_ITS ---
Reason for Visit Reason for Visit: Diagnoses Overweight (06/09/24) Foot drop, left foot (06/09/24) Displaced spiral fracture of shaft of right femur, initial encounter for closed fracture (06/09/24) Unspecified fracture of right femur, initial encounter for closed fracture (06/09/24) Unspecified fall, initial encounter (06/09/24) correction (current) use of anticoagulants (06/09/24) Personal history of pulmonary embolism (06/09/24) Personal history of other venous thrombosis and embolism (06/09/24) Presence of right artificial hip joint (06/09/24) Presence of right artificial knee joint (06/09/24) Subjective Subjective Patient was seen and examined today, she has no specific complaints except for surgical pain. I have ordered an H&H to recheck her hemoglobin. Objective Data Objective Data Vital Signs: Vital Signs Temp Pulse Resp BP Pulse Ox O2 Del Method O2 Flow Rate 98.1 F 95 15 97/57 L 98 Room Air 2 06/14/24 08:00 06/14/24 08:00 06/14/24 08:00 06/14/24 08:00 06/14/24 08:00 06/14/24 08:00 06/12/24 05:00 Oxygen Flow Rate (L/min) 2 Oxygen Delivery Method Room Air Weight: 77.2 kg Body Mass Index (BMI) 32.1 Intake & Output: Intake and Output for Last 24 Hours 06/12/24 06/13/24 06/14/24 23:59 23:59 23:59 Intake Total 150 / 150 1350 / 1350 400 / 400 Output Total 950 / 950 1600 / 1600 500 / 500 Balance -800 / -800 -250 / -250 -100 / -100 Lab / Micro Data 06/12/24 04:14 06/12/24 04:14 Labs: Laboratory Results - last 24 hr 06/13/24 16:44: POC Glucose 307 H 06/13/24 21:19: POC Glucose 211 H 06/14/24 06:05: POC Glucose 249 H 06/14/24 11:21: POC Glucose 297 H Physical Exam Narrative Patient's somnolent and no apparent distress General Appearance: cooperative, well kempt and well developed Orientation / Consciousness: awake, somnolent HEENT normocephalic, head/scalp atraumatic and moist oral mucous membranes Eyes PERRL, EOMs intact bilaterally and conjunctivae normal Neck supple, no JVD, thyroid normal and no carotid bruits General: trachea midline Resp normal respiratory effort, no retractions, no use of accessory muscles and clear to auscultation bilaterally Auscultation: Negative for rales, rhonchi or wheezes Cardio regular rate, regular rhythm, S1 normal heart sound, S2 normal heart sound, no murmurs, no rub and no gallops GI normal to inspection, nondistended, normoactive bowel sounds, soft to palpation, non-tender and non-distended Extremity no clubbing, cyanosis or edema Skin no rashes or lesions noted General Skin Exam: no breakdown Neuro CN's II-XII intact bilaterally, no focal motor deficits and no sensory deficits noted Sensorium / Orientation: awake but somnolent Speech: speech normal Psych affect normal Assessment & Plan Assessment/Plan (1) Spiral fracture of shaft of femur: QUALIFIERS: Encounter type: initial encounter Fracture type: c losed Fracture alignment: displaced Laterality: right Qualified Code(s): S 72.341A - Displaced spiral fracture of shaft of right femur, initial encounter for closed fracture (2) Closed right femoral fracture: PLAN: Plan 1. Acute displaced spiral fracture of the distal shaft of the right femur- postop day 1 ORIF with intramedullary topher, continue PT and OT, patient has requested to go to TCU for short-term inpatient rehab services, request to her insurance has been placed #2 Paroxysmal atrial fibrillation-patient is on Xarelto #3 chronic kidney disease stage IIIa-complicates care, management, recovery, and prognosis #4 type 2 diabetes-patient is on pioglitazone, blood sugars will be monitored and sliding scale insulin will be given as needed #5 essential hypertension-patient will remain on her current medications, blood pressure will be monitored #6 hyperlipidemia-patient is on a statin #7 nonischemic cardiomyopathy-patient's last echocardiogram was in 2020, her ejection fraction at that time was normal, patient will remain on her present medications #8 chronic asthma-patient is on as needed inhalers at the present time, she will receive as needed aerosol treatments while she is in the hospital #9 acute anemia secondary to distal right femoral fracture-hemoglobin will be rechecked today Total clinical time spent by myself addressing the patient's medical issues, reviewing all of her data, and collaborating with patient's care team: 35 minutes Charges/Coding Visit Charges Inpatient E&M: 43185 Subs Hosp L2
[2024-06-14 15:23] LABS: Hemoglobin 8.9 g/dL (12.0-15.0)
[2024-06-14 17:07] LABS: Bedside Glucose 260 mg/dL (74-106)
[2024-06-14 19:05] VITALS: PULSE 100; RESP 15
[2024-06-14 19:59] VITALS: BP 128/69; PULSE 104; RESP 16; TEMP 36.7; O2SAT 100
[2024-06-14] MEDS: Atorvastatin Calcium 40 MG Tablet PO (21:28)
[2024-06-14 22:11] LABS: Bedside Glucose 246 mg/dL (74-106)
[2024-06-15 03:09] VITALS: BP 118/65; PULSE 84; RESP 16; TEMP 36.8; O2SAT 100
[2024-06-15] MEDS: HYDROcodone Bitartrate/Apap 5/325 Tablet PO (03:11)
[2024-06-15 05:14] VITALS: BMI 32.1
[2024-06-15] MEDS: Acetaminophen 325 MG Tablet 650 MG PO (06:10)
[2024-06-15] MEDS: Gabapentin 600 MG Tablet PO (06:10)
[2024-06-15] MEDS: Insulin Lispro 100 UNIT/ML INSULN.PEN SC ×2 (06:19→11:48)
[2024-06-15] MEDS: Albuterol 2.5 MG/3 ML VIAL.NEB. INHALATION ×2 (06:32→11:34)
[2024-06-15] MEDS: Budesonide Respules 0.5 MG/2 ML AMPUL.NEB. INHALATION (06:33)
[2024-06-15 06:34] VITALS: PULSE 72; RESP 18; O2SAT 98
--- NOTE | 2024-06-15 07:19 | PN.HOSP_ITS ---
Reason for Visit Reason for Visit: Diagnoses Overweight (06/09/24) Foot drop, left foot (06/09/24) Displaced spiral fracture of shaft of right femur, initial encounter for closed fracture (06/09/24) Unspecified fracture of right femur, initial encounter for closed fracture (06/09/24) Unspecified fall, initial encounter (06/09/24) penitentiary (current) use of anticoagulants (06/09/24) Personal history of pulmonary embolism (06/09/24) Personal history of other venous thrombosis and embolism (06/09/24) Presence of right artificial hip joint (06/09/24) Presence of right artificial knee joint (06/09/24) Objective Data Objective Data Vital Signs: Vital Signs Temp Pulse Resp BP Pulse Ox O2 Del Method O2 Flow Rate 98.2 F 72 18 118/65 98 Room Air 2 06/15/24 03:09 06/15/24 06:34 06/15/24 06:34 06/15/24 03:09 06/15/24 06:34 06/15/24 06:34 06/12/24 05:00 Oxygen Flow Rate (L/min) 2 Oxygen Delivery Method Room Air Weight: 77.3 kg Body Mass Index (BMI) 32.1 Intake & Output: Intake and Output for Last 24 Hours 06/13/24 06/14/24 06/15/24 23:59 23:59 23:59 Intake Total 1350 / 1350 800 / 800 450 / 450 Output Total 1600 / 1600 500 / 500 Balance -250 / -250 300 / 300 450 / 450 Lab / Micro Data 06/14/24 15:10 06/12/24 04:14 Labs: Laboratory Results - last 24 hr 06/14/24 11:21: POC Glucose 297 H 06/14/24 15:10: Hgb 8.9 L, Hct 28.0 L 06/14/24 16:44: POC Glucose 260 H 06/14/24 21:27: POC Glucose 246 H Assessment & Plan Assessment/Plan (1) Spiral fracture of shaft of femur: QUALIFIERS: Encounter type: initial encounter Fracture type: c losed Fracture alignment: displaced Laterality: right Qualified Code(s): S 72.341A - Displaced spiral fracture of shaft of right femur, initial encounter for closed fracture (2) Closed right femoral fracture: PLAN: Plan 1. Acute displaced spiral fracture of the distal shaft of the right femur- postop day 1 ORIF with intramedullary topher, continue PT and OT, patient has requested to go to TCU for short-term inpatient rehab services, request to her insurance has been placed #2 Paroxysmal atrial fibrillation-patient is on Xarelto #3 chronic kidney disease stage IIIa-complicates care, management, recovery, and prognosis #4 type 2 diabetes-patient is on pioglitazone, blood sugars will be monitored and sliding scale insulin will be given as needed #5 essential hypertension-patient will remain on her current medications, blood pressure will be monitored #6 hyperlipidemia-patient is on a statin #7 nonischemic cardiomyopathy-patient's last echocardiogram was in 2020, her ejection fraction at that time was normal, patient will remain on her present medications #8 chronic asthma-patient is on as needed inhalers at the present time, she will receive as needed aerosol treatments while she is in the hospital #9 acute anemia secondary to distal right femoral fracture-hemoglobin will be rechecked today Total clinical time spent by myself addressing the patient's medical issues, reviewing all of her data, and collaborating with patient's care team: 35 minutes
[2024-06-15 08:16] LABS: Absolute Lymphocyte Count 1.92 X10^3/uL (0.83-4.51); Absolute Neutrophil Count 3.2 X10^3/uL (2.0-7.7); Basophil# 0.01 X10^3/uL; Basophil% 0.2 % (0-1); Eosinophils% 3.3 % (0-5); Hematocrit 22.9 % (37-47); Hemoglobin 7.2 g/dL (12.0-15.0); Lymphocyte # 1.92 X10^3/ul (0.83-4.51); Lymphocyte % 31.5 % (19-41); Mean Corp Hgb Conc 31.4 g/dL (32-36); Mean Corpuscular Hgb 31.2 pg (27.0-32.0); Mean Corpuscular Volume 99.1 fL (81-99); Mean Platelet Vol. 9.9 fl (6.2-12.0); Monocyte# 0.65 X10^3/uL; Monocyte% 10.7 % (0-10); NRBC Flagged by Analyzer 0 % (0-5); Neutrophil # 3.23 X10^3/uL (2.7-7.7); Platelet Count 150 K/mm3 (150-450); RBC Distribution Width CV 14.3 % (11.6-14.6); RBC Distribution Width SD 52.2 fl (35.1-43.9); Red Blood Count 2.31 M/mm3 (4.2-5.4); White Blood Count 6.1 K/mm3 (4.4-11.0)
--- NOTE | 2024-06-15 08:43 | DS.PCM_ITS ---
Providers Date of Admission: 06/09/24 Primary Care Physician: Dr. Quentin Kellogg MD Consultations 06/10/24 08:27 Consult: Orthopedics Routine Consulting Provider: Sivakumar Shannon Reason for Consult: femur fracture right EMERGENT Consult: No MD Notified: Yes Date Notified: 06/10/24 Time Notified: 08:27 Method of Notification: Verbal Reason For Visit: RIGHT SPIRAL FEMUR FRACTURE AFTER FALL AT HOME Diagnosis Discharge Diagnosis (1) Spiral fracture of shaft of femur: Status: Acute Code(s): S72.343A - Displaced spiral fracture of shaft of unspecified femur, initial encounter for closed fracture Qualifiers: Encounter type: initial encounter Fracture type: closed Fracture alignment: displaced Laterality: right Qualified Code(s): S72.341A - Displaced spiral fracture of shaft of right femur, initial encounter for closed fracture (2) Closed right femoral fracture: Status: Acute Code(s): S72.91XA - Unspecified fracture of right femur, initial encounter for closed fracture Plan Patient is a 73-year-old lady who was admitted following a fall. Imaging studies demonstrated acute displaced spiral fracture of the distal shaft of the right femur. Patient underwent surgical intervention 1. Acute displaced spiral fracture of the distal shaft of the right femur Patient underwent ORIF with intramedullary topher by Dr. Sivakumar Shannon on 06/11/2024. Subsequently received PT/OT as tolerated pain management consult placed to case management patient transferred to transitional care unit once insurance precertification was obtained 2. Paroxysmal atrial fibrillation ? Rate controlled on Xarelto 3. Chronic kidney disease stage IIIa kidney function at baseline 4. Diabetes mellitus type II - Continue with oral agent and also placed on Accu-Cheks a.c. and at bedtime and covered with sliding scale insulin 5. Hypertension ? Blood pressure controlled, home medications continued with dose adjustment as needed 6. Dyslipidemia ?Patient is on statin therapy, continued at home dose 7. Anemia ? Secondary to chronic disorder as well as acute blood loss anemia following surgery monitored H&H patient did not meet criteria for transfusion Medications at Discharge Home Medications fluticasone 100 mcg-salmeterol 50 mcg/dose blistr powdr for inhalation 1 puff inhalation BID asthma 01/29/13 ferrous gluconate 324 mg (37.5 mg iron) tablet 325 mg PO BID iron 05/29/18 sennosides 8.6 mg-docusate sodium 50 mg tablet 2 tab PO BID PRN Constipation 04/15/19 albuterol sulfate 2.5 mg/3 mL (0.083 %) solution for nebulization 2.5 mg inhalation Q4H PRN shortness of breath or wheezing 04/23/19 albuterol sulfate 90 mcg/actuation aerosol inhaler 2 puff inhalation 4X/DAY PRN asthma 12/05/21 famotidine 40 mg tablet 40 mg PO DAILY 12/05/21 cetirizine 10 mg tablet 10 mg PO DAILY PRN allergy symptoms 06/21/22 gabapentin 600 mg tablet 600 mg PO TID 06/21/22 pioglitazone 30 mg tablet 30 mg PO DAILY 06/21/22 rivaroxaban 15 mg tablet (Xarelto) 15 mg PO DAILY #90 tabs 12/19/22 atorvastatin 40 mg tablet 40 mg PO DAILY #90 tabs 04/07/24 solifenacin 5 mg tablet 5 mg PO QDAY 05/27/24 ascorbic acid (vitamin C) 500 mg tablet 500 mg PO DAILY 06/09/24 citalopram 10 mg tablet 10 mg PO DAILY 06/09/24 methocarbamol 500 mg tablet 250 - 500 mg PO BID PRN PRN muscle spasm 06/09/24 acetaminophen 325 mg tablet 650 mg (2 x 325 mg) PO Q8 #0 tabs 06/15/24 aluminum-mag hydroxide-simethicone 400 mg-400 mg-40 mg/5 mL oral susp (Mag-Al Plus Extra Strength) 30 ml PO Q6H PRN PRN Gastric Burning #0 mL 06/15/24 hydrocodone-acetaminophen 5-325mg 5mg-325mg 2 tab PO Q6H PRN PRN Pain Score 4-10 1 day #3 tabs 06/15/24 insulin lispro 100 unit/mL subcutaneous pen (Humalog KwikPen (U-100) Insulin) See Protocol subcut ACHS #0 mL 06/15/24 melatonin 3 mg tablet 3 mg PO QHS PRN PRN Insomnia #0 tabs 06/15/24 Hospital Course Summary of Care Provided Minutes Spent on Discharge: 32 Physical Exam Narrative GENERAL: cooperative HEENT: Atraumatic; normocephalic EYES; Anicteric, Normal Conjunctiva NECK; supple, normal thyroid, RESPIRATORY: Diminished to auscultation CARDIOVASCULAR: Regular S1 S2, GI: soft, normoactive bowel sounds, : No Renal angle tenderness; EXTREMITIES: No edema, no clubbing, MUSCULOSKELETAL: no muscle wasting NEURO: Awake; no lateralizing signs. SKIN: No Rash PSYCH; Flat affect Weight / BMI Weight Weight: 77.3 kg Body Mass Index (BMI) 32.1 ABG / Lab / Microbiology Data 06/15/24 08:00 06/12/24 04:14 Laboratory: Laboratory Results - last 24 hr 06/14/24 11:21: POC Glucose 297 H 06/14/24 15:10: Hgb 8.9 L, Hct 28.0 L 06/14/24 16:44: POC Glucose 260 H 06/14/24 21:27: POC Glucose 246 H 06/15/24 08:00: WBC 6.1, RBC 2.31 L, Hgb 7.2 L, Hct 22.9 L, MCV 99.1 H, MCH 31.2, MCHC 31.4 L, RDW Std Deviation 52.2 H, RDW Coeff of Mahin 14.3, Plt Count 150, MPV 9.9, Immature Gran % (Auto) 1.300 H, Neut % (Auto) 53.0, Lymph % (Auto) 31.5, Posey % (Auto) 10.7 H, Eos % (Auto) 3.3, Baso % (Auto) 0.2, Absolute Neuts (auto) 3.2, Absolute Lymphs (auto) 1.92, Nucleated RBC % 0 D/C Instructions Discharge Diet: No restrictions Discharge Activity: Return to Normal Activity Call your doctor if you observe: Fever of 101 or Higher, Shortness of breath, Fainting spells and Chest pain DC O2, CPAP, BIPAP Needs Home O2 Discharge instructions: No Meaningful Use Info Meaningful Use Meaningful Use Diagnoses (Choose all that apply): None applicable Ischemic Stroke Statin Dosing Therapy Reference: STATIN DOSE THERAPY REFERENCE: * Patients > 75 years receive moderate or high dose statin therapy. * Patients 75 years or YOUNGER should receive HIGH intensity statin dose unless contraindicated. You will be required to document reason for non-treatment if statin daily dose does not meet guidelines. HIGH DOSE STATIN THERAPY DAILY Atorvastatin > than or = to 40 mg Rosuvastatin > than or = to 20 mg Amlodipine + Atorvastatin > than or = to 2.5/40 mg Ezetimibe + Simvastatin 10/80 mg Simvastatin 80mg Discharge Plan Admission Admit Date/Time: 06/09/24 23:30 Attending Provider: Mitchel Graham Primary Care Provider: Quentin Kellogg Chi Consulting Providers: Mitchel Hightower; Sivakumar Shannon; Nathen George Discharge Orders/Prescriptions Prescriptions: New acetaminophen 325 mg Tablet 650 mg PO Q8 Qty: 0 0RF hydrocodone-acetaminophen 5-325 mg Tablet 2 tab PO Q6H PRN PRN (Reason: Pain Score 4-10) 1 Days Qty: 3 0RF insulin lispro [Humalog KwikPen Insulin] 100 unit/mL Insulin Pen See Protocol subcut ACHS Qty: 0 0RF Protocol: 4. Sliding Scale Insulin High-Med Dosing Condition: 150-199 mg/dl = 2 units Condition: 200-259 mg/dl = 4 units Condition: 260-324 mg/dl = 6 units Condition: 325-374 mg/dl = 8 units Condition: 375-409 mg/dl = 10 units Condition: 410-449 mg/dl = 11 units Condition: Greater than 449 call physician Protocol Text: Suggested for: - Patients on Total Daily Insulin Dose of 56-80 units - Patient who are known to be insulin resistant or septic HIGH MEDIUM DOSING ALGORITHM melatonin 3 mg Tablet 3 mg PO QHS PRN PRN (Reason: Insomnia) Qty: 0 0RF alum-mag hydroxide-simeth [Mag-Al Plus Extra Strength] 400-400-40 mg/5 mL Suspension 30 ml PO Q6H PRN PRN (Reason: Gastric Burning) Qty: 0 0RF Continued albuterol sulfate 2.5 mg /3 mL (0.083 %) solution for nebulization 2.5 mg INHALATION Q4H PRN (Reason: shortness of breath or wheezing) famotidine 40 mg tablet 40 mg PO DAILY gabapentin 600 mg tablet 600 mg PO TID cetirizine 10 mg tablet 10 mg PO DAILY PRN (Reason: allergy symptoms) pioglitazone 30 mg tablet 30 mg PO DAILY solifenacin 5 mg tablet 5 mg PO QDAY fluticasone propion-salmeterol 1 PUFF inhaler 1 puff INHALATION BID albuterol sulfate 90 mcg/actuation HFA aerosol inhaler 2 puff inhalation 4X/DAY PRN (Reason: asthma) ferrous gluconate 324 MG tablet 325 mg PO BID sennosides-docusate sodium 1 TABLET tablet 2 tab PO BID PRN (Reason: Constipation) Rx Instructions: Take until first bowel movement, then as needed methocarbamol 500 mg tablet 250 - 500 mg PO BID PRN PRN (Reason: muscle spasm) citalopram 10 mg tablet 10 mg PO DAILY ascorbic acid (vitamin C) 500 mg tablet 500 mg PO DAILY Xarelto 15 mg tablet 15 mg PO DAILY Qty: 90 3RF Rx Instructions: must administer with evening meal atorvastatin 40 mg tablet 40 mg PO DAILY Qty: 90 3RF Discontinued acetaminophen [Tylenol Arthritis Pain] 650 mg tablet extended release 650 mg PO Q8H tramadol 50 mg tablet 25 - 50 mg PO BID PRN PRN (Reason: pain) lisinopril 2.5 mg tablet 2.5 mg PO DAILY Qty: 90 4RF Referrals / Follow Up: Quentin Kellogg Chi, MD [Primary Care Provider] - Disposition Disposition (needs filled in before D/C Order can be placed): Intermediate Facility Charges/Coding Visit Charges Inpatient E&M: 48433 Disch Hosp >30min
--- NOTE | 2024-06-15 08:52 | TREXTCAR_ITS ---
Diet Diet Order/Speech Therapy: 06/12/24 07:43 Diet: Consistent Carb - Calorie Controlled Type of Dietary Supplement:: Glucerna Shake How many daily calories?: 1800 calorie Routine Orders/Code Status Code Status: Full Code DC O2, CPAP, BIPAP needs Home O2 Discharge instructions: No Wound(s) RLE: Wound Type: Surgical Incision Therapies Physical Therapy: Eval and Treat Occupational Therapy: Eval and Treat Problem/Diagnosis (1) Spiral fracture of shaft of femur: Status: Acute Code(s): S72.343A - Displaced spiral fracture of shaft of unspecified femur, initial encounter for closed fracture (2) Closed right femoral fracture: Status: Acute Code(s): S72.91XA - Unspecified fracture of right femur, initial encounter for closed fracture Plan Patient is a 73-year-old lady who was admitted following a fall. Imaging studies demonstrated acute displaced spiral fracture of the distal shaft of the right femur. Patient underwent surgical intervention 1. Acute displaced spiral fracture of the distal shaft of the right femur Patient underwent ORIF with intramedullary topher by Dr. Sivakumar Shannon on 06/11/2024. Subsequently received PT/OT as tolerated pain management consult placed to case management patient transferred to transitional care unit once insurance precertification was obtained 2. Paroxysmal atrial fibrillation ? Rate controlled on Xarelto 3. Chronic kidney disease stage IIIa kidney function at baseline 4. Diabetes mellitus type II - Continue with oral agent and also placed on Accu-Cheks a.c. and at bedtime and covered with sliding scale insulin 5. Hypertension ? Blood pressure controlled, home medications continued with dose adjustment as needed 6. Dyslipidemia ?Patient is on statin therapy, continued at home dose 7. Anemia ? Secondary to chronic disorder as well as acute blood loss anemia following surgery monitored H&H patient did not meet criteria for transfusion Allergies/Procedures Done in Hospital Allergies cider vinegar Allergy (Verified 06/09/24 20:23) NEEDS FOLLOW-UP cottonseed oil Allergy (Verified 06/09/24 20:23) NEEDS FOLLOW-UP grass pollen Allergy (Verified 06/09/24 20:23) NEEDS FOLLOW-UP morphine Allergy (Verified 06/09/24 20:23) Unknown oxycodone HCl (From OxyContin) Allergy (Verified 06/09/24 20:23) Unknown propoxyphene HCl (From Darvon) Allergy (Verified 06/09/24 20:23) Unknown wool Allergy (Verified 06/09/24 20:23) NEEDS FOLLOW-UP chlorhexidine Adverse Reaction (Verified 06/09/24 20:23) Rash feathers Adverse Reaction (Verified 06/09/24 20:23) NEEDS FOLLOW-UP Type of Care/Length of Stay Estimated LOS: Convalescent Care Less Than 30 days Type of Care Needed: Skilled Rehab Potential: Good Prognosis: Good Additional Orders/Day of Discharge Day of Discharge: 06/15/24 Dietary and Speech Recommendations Dietitian Recommendations/Changes: Continue 1800CCD diet to manage blood sugars. Continue 120mL Glucerna TID with medpass to provide supplemental energy. Discharge Plan Admission Admit Date/Time: 06/09/24 23:30 Attending Provider: Mitchel Graham Primary Care Provider: Quentin Kellogg [employer] Providers: Mitchel Hightower; Sivakumar Shannon; Nathen George Discharge Orders/Prescriptions Prescriptions: New acetaminophen 325 mg Tablet 650 mg PO Q8 Qty: 0 0RF hydrocodone-acetaminophen 5-325 mg Tablet 2 tab PO Q6H PRN PRN (Reason: Pain Score 4-10) 1 Days Qty: 3 0RF insulin lispro [Humalog KwikPen Insulin] 100 unit/mL Insulin Pen See Protocol subcut ACHS Qty: 0 0RF Protocol: 4. Sliding Scale Insulin High-Med Dosing Condition: 150-199 mg/dl = 2 units Condition: 200-259 mg/dl = 4 units Condition: 260-324 mg/dl = 6 units Condition: 325-374 mg/dl = 8 units Condition: 375-409 mg/dl = 10 units Condition: 410-449 mg/dl = 11 units Condition: Greater than 449 call physician Protocol Text: Suggested for: - Patients on Total Daily Insulin Dose of 56-80 units - Patient who are known to be insulin resistant or septic HIGH MEDIUM DOSING ALGORITHM melatonin 3 mg Tablet 3 mg PO QHS PRN PRN (Reason: Insomnia) Qty: 0 0RF alum-mag hydroxide-simeth [Mag-Al Plus Extra Strength] 400-400-40 mg/5 mL Suspension 30 ml PO Q6H PRN PRN (Reason: Gastric Burning) Qty: 0 0RF Continued albuterol sulfate 2.5 mg /3 mL (0.083 %) solution for nebulization 2.5 mg INHALATION Q4H PRN (Reason: shortness of breath or wheezing) famotidine 40 mg tablet 40 mg PO DAILY gabapentin 600 mg tablet 600 mg PO TID cetirizine 10 mg tablet 10 mg PO DAILY PRN (Reason: allergy symptoms) pioglitazone 30 mg tablet 30 mg PO DAILY solifenacin 5 mg tablet 5 mg PO QDAY fluticasone propion-salmeterol 1 PUFF inhaler 1 puff INHALATION BID albuterol sulfate 90 mcg/actuation HFA aerosol inhaler 2 puff inhalation 4X/DAY PRN (Reason: asthma) ferrous gluconate 324 MG tablet 325 mg PO BID sennosides-docusate sodium 1 TABLET tablet 2 tab PO BID PRN (Reason: Constipation) Rx Instructions: Take until first bowel movement, then as needed methocarbamol 500 mg tablet 250 - 500 mg PO BID PRN PRN (Reason: muscle spasm) citalopram 10 mg tablet 10 mg PO DAILY ascorbic acid (vitamin C) 500 mg tablet 500 mg PO DAILY Xarelto 15 mg tablet 15 mg PO DAILY Qty: 90 3RF Rx Instructions: must administer with evening meal atorvastatin 40 mg tablet 40 mg PO DAILY Qty: 90 3RF Discontinued acetaminophen [Tylenol Arthritis Pain] 650 mg tablet extended release 650 mg PO Q8H tramadol 50 mg tablet 25 - 50 mg PO BID PRN PRN (Reason: pain) lisinopril 2.5 mg tablet 2.5 mg PO DAILY Qty: 90 4RF Referrals / Follow Up: Quentin Kellogg Chi, MD [Primary Care Provider] - Disposition Disposition (needs filled in before D/C Order can be placed): [facility] Facility (1) Spiral fracture of shaft of femur Qualifiers: Encounter type: initial encounter Fracture type: closed Fracture alignment: displaced Laterality: right Qualified Code(s): S72.341A - Displaced spiral fracture of shaft of right femur, initial encounter for closed fracture
[2024-06-15 09:00] VITALS: BP 113/64; PULSE 84; RESP 16; TEMP 36.9; O2SAT 95
[2024-06-15 09:03] LABS: Phosphorus 2.9 mg/dL (2.7-4.5)
[2024-06-15 09:04] LABS: Anion Gap 8 (5-15); BUN 48 mg/dL (4-19); BUN/Creat Ratio 44.8 RATIO (10-20); Calcium,Total 8.9 mg/dL (7.6-11.0); Carbon Dioxide 22.5 mmol/L (21.0-32.0); Chloride 107 mmol/L (98-108); Creatinine, Serum 1.07 mg/dL (0.70-1.20); EST Glomerular Filtration Rate 55 (>60); Estimated Creatinine Clearance 44.06 ml/min (50-250); Glucose 214 mg/dL (70-99); Potassium 5.2 mmol/L (3.3-5.1); Sodium Level 137 mmol/L (133-145)
--- NOTE | 2024-06-15 09:33 | CASEMGMT ---
Addendum entered by Tenisha Marmolejo 06/15/24 10:56: KALEB spoke with [id number] upon arrival to the floor to discuss Yane's concerns regarding cost of TCU. SW provided education on insurance precert, coverage, and cut process. SW assured Yane that TCU SW will follow pt and assist family with discharge planning beginning at the care plan meeting held this week. Yane reports understanding. PRIYANKA [employer] Original Note: Social Work- Physician feels that pt is medically ready for discharge. Pt in agreement with plan for discharge to TCU. SW faxed discharge documentation to TCU. Pt was on the phone calling [id number] to notify of discharge when SW was leaving the room. Pt reports no other persons to notify. Bedside nurse notified of discharge. Plan: TCU; skilled level of care PRIYANKA Merchant
[2024-06-15 09:35] LABS: Bedside Glucose 226 mg/dL (74-106)
[2024-06-15] MEDS: Iron Sucrose Complex 200 MG in 0.9% Normal Saline (100mL Bag) 100 ML 220 MG IV (09:50)
[2024-06-15] MEDS: Ferrous Gluconate 324 MG Tablet PO (09:55)
[2024-06-15] MEDS: Famotidine 20 MG Tablet 40 MG PO (09:55)
[2024-06-15] MEDS: Rivaroxaban 15 MG Tablet PO (09:55)
[2024-06-15] MEDS: Citalopram 10 MG Tablet PO (09:55)
[2024-06-15] MEDS: Ascorbic Acid 500 MG Tablet PO (09:55)
[2024-06-15] MEDS: Tolterodine Tartrate 2 MG CAP.SA PO (09:55)
[2024-06-15] MEDS: Sodium Ferric Gluconat/Sucrose 250 MG in 0.9% Normal Saline (250mL Bag) 250 ML 135 MG IV (09:56)
--- NOTE | 2024-06-15 10:24 | PHA.DC.MR.R ---
Pharmacy [place] Med Reconciliation Pharmacy Service has performed discharge medication reconciliation for this patient. The patient's discharge medication list was reviewed for discrepancies and discrepancies were resolved. Medications at Discharge Home Medications fluticasone 100 mcg-salmeterol 50 mcg/dose blistr powdr for inhalation 1 puff inhalation BID asthma 01/29/13 ferrous gluconate 324 mg (37.5 mg iron) tablet 325 mg PO BID iron 05/29/18 sennosides 8.6 mg-docusate sodium 50 mg tablet 2 tab PO BID PRN Constipation 04/15/19 albuterol sulfate 2.5 mg/3 mL (0.083 %) solution for nebulization 2.5 mg inhalation Q4H PRN shortness of breath or wheezing 04/23/19 albuterol sulfate 90 mcg/actuation aerosol inhaler 2 puff inhalation 4X/DAY PRN asthma 12/05/21 famotidine 40 mg tablet 40 mg PO DAILY 12/05/21 cetirizine 10 mg tablet 10 mg PO DAILY PRN allergy symptoms 06/21/22 gabapentin 600 mg tablet 600 mg PO TID 06/21/22 pioglitazone 30 mg tablet 30 mg PO DAILY 06/21/22 rivaroxaban 15 mg tablet (Xarelto) 15 mg PO DAILY #90 tabs 12/19/22 atorvastatin 40 mg tablet 40 mg PO DAILY #90 tabs 04/07/24 solifenacin 5 mg tablet 5 mg PO QDAY 05/27/24 ascorbic acid (vitamin C) 500 mg tablet 500 mg PO DAILY 06/09/24 citalopram 10 mg tablet 10 mg PO DAILY 06/09/24 methocarbamol 500 mg tablet 250 - 500 mg PO BID PRN PRN muscle spasm 06/09/24 acetaminophen 325 mg tablet 650 mg (2 x 325 mg) PO Q8 #0 tabs 06/15/24 aluminum-mag hydroxide-simethicone 400 mg-400 mg-40 mg/5 mL oral susp (Mag-Al Plus Extra Strength) 30 ml PO Q6H PRN PRN Gastric Burning #0 mL 06/15/24 hydrocodone-acetaminophen 5-325mg 5mg-325mg 2 tab PO Q6H PRN PRN Pain Score 4-10 1 day #3 tabs 06/15/24 insulin lispro 100 unit/mL subcutaneous pen (Humalog KwikPen (U-100) Insulin) See Protocol subcut ACHS #0 mL 06/15/24 melatonin 3 mg tablet 3 mg PO QHS PRN PRN Insomnia #0 tabs 06/15/24
[2024-06-15 11:34] VITALS: PULSE 73; RESP 18
[2024-06-15 11:35] VITALS: PULSE 75; RESP 18
[2024-06-15 11:58] LABS: Bedside Glucose 263 mg/dL (74-106)
[2024-06-15] MEDS: Senna/Docusate Sodium 1 Tablet 2 TABLET PO (12:34)
[2024-06-15 12:37] VITALS: BP 138/74; PULSE 82; RESP 16; TEMP 36.6; O2SAT 94
== END 2024-06-15 12:50 | disposition skilled nursing facility (03) | DRG 481 ==
LOC: ED 22:44 → MS3 06-10 00:14
PROVIDERS: Anesthesiology; Internal Medicine; Orthopaedic Surgery; Admitting Provider Internal Medicine; Emergency Provider Emergency Medicine; PCP Family Medicine Geriatric Medicine; Visit Provider Internal Medicine
PROC: 0QSB06Z Reposition Right Lower Femur with Intramedullary Internal Fixation Device, Open Approach (ICD-10-PCS; CPT 27245; principal; 2024-06-11 11:50)
DX: S72.341A Displaced spiral fracture of shaft of right femur, initial encounter for closed fracture (principal); I42.9 Cardiomyopathy, unspecified; D62 Acute posthemorrhagic anemia; E11.22 Type 2 diabetes mellitus with diabetic chronic kidney disease; N18.32 Chronic kidney disease, stage 3b; J42 Unspecified chronic bronchitis; I12.9 Hypertensive chronic kidney disease with stage 1 through stage 4 chronic kidney disease, or unspecified chronic kidney disease; I08.3 Combined rheumatic disorders of mitral, aortic and tricuspid valves; I77.810 Thoracic aortic ectasia; I48.0 Paroxysmal atrial fibrillation; K21.9 Gastro-esophageal reflux disease without esophagitis; E78.5 Hyperlipidemia, unspecified; J45.909 Unspecified asthma, uncomplicated; W18.31XA Fall on same level due to stepping on an object, initial encounter; E11.40 Type 2 diabetes mellitus with diabetic neuropathy, unspecified; M62.838 Other muscle spasm; K52.831 Collagenous colitis; Z79.51 Long term (current) use of inhaled steroids; Z87.891 Personal history of nicotine dependence; E66.3 Overweight; Z79.84 Long term (current) use of oral hypoglycemic drugs; Z79.01 Long term (current) use of anticoagulants; Z82.49 Family history of ischemic heart disease and other diseases of the circulatory system; Z90.710 Acquired absence of both cervix and uterus; Z68.29 Body mass index [BMI] 29.0-29.9, adult; Z96.651 Presence of right artificial knee joint; Z86.718 Personal history of other venous thrombosis and embolism; Z86.711 Personal history of pulmonary embolism; Z96.641 Presence of right artificial hip joint; N95.2 Postmenopausal atrophic vaginitis; N32.81 Overactive bladder; N39.46 Mixed incontinence
CPT/HCPCS: 36415; 71045; 72170; 73552; 73560; 76000; 80048; 80053; 82040; 82042; 82306; 82784; 82962; 83036; 83735; 83873; 84100; 84443; 85014; 85018; 85025; 85027; 85610; 85730; 86850; 86900; 86901; 87631; 93005; 94640; 94668; 97116; 97162; 97166; 97530; 97535; 97760; 97802; 99285; C1713; J1756; A4216; J2405; J2916

== ENCOUNTER 2024-06-15 13:17 | Inpatient (IN) | payer MEDICARE, SELFPAY ==
[2024-06-15 13:20] VITALS: BP 130/75; PULSE 97; RESP 18; TEMP 36.9
--- NOTE | 2024-06-15 13:59 | HP.PCM_ITS ---
[facility] - General General Date of Admission: 06/15/24 Date of Service: 06/15/24 Chief Complaint: Here for rehabilitation. HPI Narrative MICHAEL COMBS, is a 73 Female who presents with followin06/09/2024 [facility] ED fall. Tripped over dog, fell, right hip pain, right knee pain. X-ray showed right distal femur spiral fracture. 06/09/2024 Admit [facility]. Pain control, PT/OT, prepare for surgery for right femur fracture. Hold DOAC, history of DVT/PE. Hold Pioglitazone, start SSI for Diabetes Mellitus II. 06/10/2024 Dr. Shannon recommended ORIF using a long plate or IM topher with possible cerclage. 06/10/2024 No distress. Surgery tomorrow. Xarelto on hold to prepare for surgery. 06/11/2024 Dr. Shannon performed ORIF right distal femur fracture, intramedullary nail retrograde, cerclage wires. 06/11/2024 Resume Xarelto tomorrow. Insulin SSI for Diabetes mellitus II. 06/12/2024 Hemoglobin 8, Right leg discomfort. Xarelto for atrial fibrillation and dvt prophylaxis. 06/13/2024 Right leg pain after surgery. PT/OT, patient requested TCU. 06/14/2024 Check H&H. Pre-CERT for TCU. 06/15/2024 Pre-CERT for TCU. 06/15/2024 Admit to TCU with debility, here for rehabilitation, strengthening, prior to discharge home with family. [facility] Medical History Diabetes Former smoker Pulmonary embolism Benign essential HTN Aortic root dilatation Cardiomyopathy Chronic kidney disease, stage 3 Nonrheumatic aortic (valve) stenosis Nonrheumatic tricuspid (valve) insufficiency Nonrheumatic mitral (valve) insufficiency Hemorrhoids Atrophic vaginitis Mixed incontinence Postlaminectomy syndrome (02/01/16) Lung nodule (10/28/14) Lichen simplex chronicus (10/20/10) Left foot drop (04/24/13) Osteoarthritis Lumbar stenosis Degenerative joint disease of right knee History of colitis (10/19/10) Hyperlipidemia History of pulmonary embolus (PE) (10/30/06) Scoliosis Asthma History of DVT (deep vein thrombosis) (10/30/06) Anemia (04/10/17) History of syncope (10/01/17) Paroxysmal atrial fibrillation (03/13/18) DM2 (diabetes mellitus, type 2) Chronic bronchitis Syncope Home Medications ?Medication ?Instructions ?Recorded ?Last Taken ?Type fluticasone 100 mcg-salmeterol 50 1 puff inhalation BI D asthma 01/29/13 Unknown History mcg/dose blistr powdr for inhalation ferrous gluconate 324 mg (37.5 mg 325 mg PO BID iron 0 05/29/18 Unknown History iron) tablet sennosides 8.6 mg-docusate sodium 2 tab PO BID PRN Con stipation 04/15/19 Unknown History 50 mg tablet albuterol sulfate 2.5 mg/3 mL 2.5 mg inhalation Q4H CA N 04/23/19 Unknown History (0.083 %) solution for nebulization shortness of breat h or wheezing albuterol sulfate 90 mcg/actuation 2 puff inhalation 4 X/DAY PRN asthma 12/05/21 Unknown History aerosol inhaler famotidine 40 mg tablet 40 mg PO DAILY 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 12/05/21 Unknown History cetirizine 10 mg tablet 10 mg PO DAILY PRN allergy s ymptoms 06/21/22 Unknown History gabapentin 600 mg tablet 600 mg PO TID neuropathy 06/10 Unknown History pioglitazone 30 mg tablet 30 mg PO DAILY diabetes 06/10 Unknown History rivaroxaban 15 mg tablet (Xarelto) 15 mg PO DAILY bloo d thinner #90 12/19/22 Unknown Rx tabs atorvastatin 40 mg tablet 40 mg PO DAILY cholesterol # 90 tabs 04/07/24 Unknown Rx solifenacin 5 mg tablet 5 mg PO QDAY overactive blad yenni 05/27/24 Unknown History ascorbic acid (vitamin C) 500 mg 500 mg PO DAILY suppl ement 06/09/24 Unknown History tablet citalopram 10 mg tablet 10 mg PO DAILY mood 06/09/24 Unknown History methocarbamol 500 mg tablet 250 - 500 mg PO BID PRN CA N muscle 06/09/24 Unknown History spasm acetaminophen 325 mg tablet 650 mg (2 x 325 mg) PO Q8 pain #0 06/15/24 Unknown Rx tabs aluminum-mag hydroxide-simethicone 30 ml PO Q6H PRN CA N Gastric 06/15/24 Unknown Rx 400 mg-400 mg-40 mg/5 mL oral susp Burning #0 mL (Mag-Al Plus Extra Strength) hydrocodone-acetaminophen 5-325mg 2 tab PO Q6H PRN PRN Pain Score 06/15/24 Unknown Rx 5mg-325mg 4-10 1 day #3 tabs insulin lispro 100 unit/mL See Protocol subcut ACHS di abetes 06/15/24 Unknown Rx subcutaneous pen (Humalog KwikPen #0 mL (U-100) Insulin) melatonin 3 mg tablet 3 mg PO QHS PRN PRN Insomnia #0 06/15/24 Unknown Rx tabs Allergy/AdvReac Type Severity Reaction Status Date / Time cider vinegar Allergy NEEDS Verified 06/09/24 20:23 FOLLOW-UP cottonseed oil Allergy NEEDS Verified 06/09/24 20:23 FOLLOW-UP grass pollen Allergy NEEDS Verified 06/09/24 20:23 FOLLOW-UP morphine Allergy Unknown Verified 06/09/24 20:23 oxycodone HCl (From Allergy Unknown Verified 06/09/24 20:23 OxyContin) propoxyphene HCl (From Allergy Unknown Verified 06/09/24 20:23 Darvon) wool Allergy NEEDS Verified 06/09/24 20:23 FOLLOW-UP chlorhexidine AdvReac Rash Verified 06/09/24 20:23 feathers AdvReac NEEDS Verified 06/09/24 20:23 FOLLOW-UP Family History Mother CAD (coronary artery disease) DVT (deep venous thrombosis) Hypertension Father Prostate cancer Sister Breast cancer Surgical History History of total right hip replacement (09/17/18) History of total right knee replacement (2008) History of hysterectomy (1999) History of bilateral salpingo-oophorectomy (1999) H/O transurethral destruction of bladder lesion (03/26/14) History of fractured kneecap (2007) History of partial knee replacement (2006) H/O thumb surgery (2003) Status post ORIF of fracture of ankle (1986) H/O tubal ligation (1988) History of laparoscopy (1999) History of lumbar laminectomy (11/05/12) Status post insertion of inferior vena caval filter (10/30/06) History of colonoscopy (05/17/11) History of (1988) Patellar tendon rupture History of knee replacement (09/02/06) Social History (Updated 06/15/24 @ 15:[address] Quentin Kellogg MD) household members: family Smoking Status: Former smoker quit date: 02/18/69 alcohol intake: never substance use type: does not use caffeine: Yes Type: coffee Number of servings: 1 ROS Constitutional Constitutional: Reports weakness; Denies chills, fever(s) or weight gain ENT HEENT: Denies headache(s), nasal congestion or nasal discharge Cardiovascular Cardiovascular: Denies chest pain or palpitations Respiratory/Chest Respiratory/Chest: Denies cough, excessive phlegm production or shortness of breath with exertion Gastrointestinal Gastrointestinal: Denies abdominal pain, nausea or vomiting Genitourinary Genitourinary: Denies dysuria Musculoskeletal Musculoskeletal: Denies joint pain or joint swelling Integumentary Integumentary: Denies rash or wounds Neurologic Neurologic: Denies focal weakness, numbness or tingling Psychiatric Psychiatric: Denies anxiety, auditory hallucinations, depression, homicidal ideation or suicidal ideation Physical Exam Const alert General Appearance: cooperative HEENT normocephalic Eyes PERRL and EOMs intact bilaterally Neck supple, no JVD and no carotid bruits Resp normal respiratory effort, normal air movement and clear to auscultation bilaterally Cardio regular rate and regular rhythm GI normal to inspection, nondistended, normoactive bowel sounds, non-tender and non-distended Extremity normal capillary refill General Extremity: Negative for edema Skin no rashes or lesions noted General Skin Exam: no breakdown Psych affect normal Appearance: appropriate Assessment & Plan Assessment/Plan (1) Debility: (2) Closed right femoral fracture: (3) Type 2 diabetes mellitus with hyperglycemia: (4) CKD stage 3a, GFR 45-59 ml/min: (5) Essential (primary) hypertension: (6) Hyperlipidemia: QUALIFIERS: Hyperlipidemia type: mixed hyperlipidemia Qualified Code(s): E78.2 - Mixed hyperlipidemia (7) GERD (gastroesophageal reflux disease): (8) Iron deficiency anemia: (9) Atrial fibrillation: (10) Low back pain: (11) Overactive bladder: PLAN: Plan 73 year old female with below past medical history hospitalized for right distal spiral femur fracture, underwent ORIF right distal femur fracture, intramedullary nail retrograde, cerclage wires 06/11/[address] Sivakumar Shannon, admitted to TCU with debility, here for rehabiltation, strengthening, prior to discharge home with family. * Debility - PT/OT. * Pain - Tylenol 650mg q8, [place] 5/325mg 2 tabs q6 prn. * Bowel - Miralax 17gm daily, senna/colace 2 tablets bid. * Adult immunization - Administer pneumonia vaccine, covid vaccine, flu vaccine as appropriate * DVT prophylaxis - on Xarelto. * COPD - Fluticasone/Salmeterol 232-14 1 puff q12, Albuterol 2.5mg neb q4 prn. * Atrial fibrillation - Xarelto 15mg daily. * Overactive bladder - Tolterodine 2mg daily. * Iron deficiency anemia - Iron 325mg bidcm, Vitamin C 500mg daily. * Hyperlipidemia - Atorvastatin 40mg qhs. * Depression - Citalopram 10mg daily, stable chronic intermediate manager use, GDR not recommended. * GERD - Famotidine 40mg daily, Mylanta 30mL q6 prn. * Diabetes Mellitus II - Zain 30mg daily. * Diabetic polyneuropathy - Gabapentin 600mg tid. * Allergic rhinitis - Loratadine 10mg daily prn. * Insomnia - Melatonin 3mg qhs prn. * Muscle spasm - Robaxin 250mg to 500g bid prn.
[2024-06-15] MEDS: Gabapentin 600 MG Tablet PO ×2 (14:43→22:03)
[2024-06-15] MEDS: Acetaminophen 325 MG Tablet 650 MG PO ×2 (14:44→22:07)
[2024-06-15 14:49] VITALS: BMI 33.0
--- NOTE | 2024-06-15 17:13 | NURSING ---
dr Shannon called and wanted to make sure pt blood sugar stayed under atleast 180. states was running 250-300's on acute side. Also wants HGB monitored, was 7.2 today. hoping pt will not need transfused if possible d/t that can increase risk for clots & infection. DR gardner notified on all.
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
[2024-06-15] MEDS: Ferrous Gluconate 324 MG Tablet PO (18:22)
[2024-06-15] MEDS: Rivaroxaban 15 MG Tablet PO (18:22)
[2024-06-15 18:37] LABS: Bedside Glucose 184 mg/dL (74-106)
[2024-06-15 21:36] LABS: Bedside Glucose 286 mg/dL (74-106)
--- NOTE | 2024-06-15 21:58 | NURSING ---
Patient's glucose at HS elevated, 286. Patient has been trending in the 200s. Per Dr. Shannon, patient's blood sugar should be kept below 180. Consulted Dr. kellogg via secure text. Dr. Kellogg gave order via telephone to give the scheduled 10 units of insulin glargine, NNO. Telephone order read back and verified.
[2024-06-15] MEDS: Insulin Glargine-YFGN 100 UNIT/ML Pen 10 UNIT SC (22:03)
[2024-06-15] MEDS: Fluticasone/Salmeterol 232-14 Inhaler 1 PUFF INHALATION (22:06)
[2024-06-15] MEDS: Atorvastatin Calcium 40 MG Tablet PO (22:07)
[2024-06-15] MEDS: Senna/Docusate Sodium 1 Tablet 2 TABLET PO (22:07)
[2024-06-15] MEDS: 0.9% Saline Lock 10 ML Syringe IV (22:10)
[2024-06-16] MEDS: Gabapentin 600 MG Tablet PO ×3 (05:34→20:05)
[2024-06-16] MEDS: Acetaminophen 325 MG Tablet 650 MG PO ×3 (05:34→20:06)
[2024-06-16 06:10] LABS: Bedside Glucose 174 mg/dL (74-106)
[2024-06-16 07:18] LABS: Absolute Lymphocyte Count 1.92 X10^3/uL (0.83-4.51); Basophil# 0.02 X10^3/uL; Basophil% 0.3 % (0-1); Eosinophil# 0.27 X10^3/uL; Eosinophils% 4.5 % (0-5); Hematocrit 21.1 % (37-47); Hemoglobin 6.7 g/dL (12.0-15.0); Lymphocyte # 1.92 X10^3/ul (0.83-4.51); Lymphocyte % 31.7 % (19-41); Mean Corp Hgb Conc 31.8 g/dL (32-36); Mean Corpuscular Hgb 31.5 pg (27.0-32.0); Mean Corpuscular Volume 99.1 fL (81-99); Mean Platelet Vol. 9.6 fl (6.2-12.0); Monocyte# 0.72 X10^3/uL; Monocyte% 11.9 % (0-10); NRBC Flagged by Analyzer 0 % (0-5); Neutrophil # 3.01 X10^3/uL (2.7-7.7); Neutrophil % 49.6 % (47-70); Platelet Count 175 K/mm3 (150-450); RBC Distribution Width CV 14.5 % (11.6-14.6); RBC Distribution Width SD 51.8 fl (35.1-43.9); Red Blood Count 2.13 M/mm3 (4.2-5.4); White Blood Count 6.1 K/mm3 (4.4-11.0)
[2024-06-16 07:50] LABS: Anion Gap 8 (5-15); BUN 40 mg/dL (4-19); BUN/Creat Ratio 37.7 RATIO (10-20); Carbon Dioxide 22.3 mmol/L (21.0-32.0); Chloride 108 mmol/L (98-108); Creatinine, Serum 1.05 mg/dL (0.70-1.20); EST Glomerular Filtration Rate 56 (>60); Estimated Creatinine Clearance 45.55 ml/min (50-250); Glucose 209 mg/dL (70-99); Potassium 5.5 mmol/L (3.3-5.1); Sodium Level 139 mmol/L (133-145)
[2024-06-16 07:52] LABS: Iron 53 ug/dL (50-170); Iron Binding Capacity,Unsat 151 ug/dL (228-428)
--- NOTE | 2024-06-16 07:55 | NURSING ---
notified dr Kellogg pt hgb 6.7. Occult stool ordered this morning already dr kellogg said plan is to recheck hgb in the morning and transfuse 1 unit if pt hgb declines further tomorrow-states pt surgeon dr castrejon is reluctant to transfuse
[2024-06-16 08:16] VITALS: BP 123/67; PULSE 95; RESP 16; TEMP 36.9; O2SAT 99
[2024-06-16 08:22] LABS: Iron Binding Capacity,Total 204 ug/dL (250-450)
[2024-06-16] MEDS: Senna/Docusate Sodium 1 Tablet 2 TABLET PO ×2 (09:04→20:05)
[2024-06-16] MEDS: Citalopram 10 MG Tablet PO (09:04)
[2024-06-16] MEDS: Tolterodine Tartrate 2 MG CAP.SA PO (09:04)
[2024-06-16] MEDS: Pioglitazone Hydrochloride 30 MG Tablet PO (09:05)
[2024-06-16] MEDS: Ferrous Gluconate 324 MG Tablet PO ×2 (09:05→17:59)
[2024-06-16] MEDS: Ascorbic Acid 500 MG Tablet PO (09:05)
[2024-06-16] MEDS: Famotidine 20 MG Tablet 40 MG PO (09:05)
[2024-06-16] MEDS: Fluticasone/Salmeterol 232-14 Inhaler 1 PUFF INHALATION ×2 (09:06→20:06)
[2024-06-16] MEDS: Polyethylene Glycol 3350 17 GM PACKET PO (09:06)
[2024-06-16] MEDS: Insulin Glargine-YFGN 100 UNIT/ML Pen 10 UNIT SC (09:07)
[2024-06-16] MEDS: Tuberculin,Purif.prot.deriv. 50 TU/ML Vial 0.1 ML ID (09:22)
[2024-06-16] MEDS: 0.9% Saline Lock 10 ML Syringe IV (09:23)
[2024-06-16 11:50] LABS: Bedside Glucose 281 mg/dL (74-106)
--- NOTE | 2024-06-16 12:11 | NURSING ---
notified dr gardner pt BG [id number]
[2024-06-16] MEDS: Insulin Lispro 100 UNIT/ML INSULN.PEN SC ×2 (12:29→18:01)
[2024-06-16 14:04] VITALS: BMI 33.0
--- NOTE | 2024-06-16 15:36 | PCM.PN.DRR ---
Documented by User: Sheela Wallis 06/16/24 16:06 TCU RX Drug Regimen Review Subjective/Objective Subjective/Objective Subjective: TCU Admission. 73 YOF presented to the ER with a fall. Hospitalized for right distal spiral femur fracture, underwent ORIF right distal femur fracture, intramedullary nail retrograde, cerclage wires 06/11/[address] Sivakumar Shannon. Admitted to TCU with debility for strengthening and rehabilitation. Objective: Allergies cider vinegar Allergy (Verified 06/09/24 20:23) NEEDS FOLLOW-UP cottonseed oil Allergy (Verified 06/09/24 20:23) NEEDS FOLLOW-UP grass pollen Allergy (Verified 06/09/24 20:23) NEEDS FOLLOW-UP morphine Allergy (Verified 06/09/24 20:23) Unknown oxycodone HCl (From OxyContin) Allergy (Verified 06/09/24 20:23) Unknown propoxyphene HCl (From Darvon) Allergy (Verified 06/09/24 20:23) Unknown wool Allergy (Verified 06/09/24 20:23) NEEDS FOLLOW-UP chlorhexidine Adverse Reaction (Verified 06/09/24 20:23) Rash feathers Adverse Reaction (Verified 06/09/24 20:23) NEEDS FOLLOW-UP Current Medications Generic Name Dose Route Start Last Admin Trade Name Freq PRN Reason Stop Dose Admin Acetaminophen 650 mg 06/15/24 14:00 06/16/24 13:08 Acetaminophen 325 Mg Tablet PO 650 mg Q8 IZABELLA Administration Hydrocodone Bitart/Acetaminophen 2 tablet 06/15/24 13:31 Hydrocodone Bitartrate/Apap 5/325 Tablet PO Q6H PRN PRN Pain Score 4-10 Al Hydroxide/Mg Hydroxide 30 ml 06/15/24 13:31 Mag Hydrox/Al Hydrox/Simeth 30 Ml Udc PO Q6H PRN PRN Gastric Burning Albuterol Sulfate 2.5 mg 06/15/24 13:31 Albuterol 2.5 Mg/3 Ml Vial.Neb. INHALATION Q4H PRN shortness of breath or wheezing Ascorbic Acid 500 mg 06/16/24 10:00 06/16/24 09:05 Ascorbic Acid 500 Mg Tablet PO 500 mg DAILY IZABELLA Administration Atorvastatin Calcium 40 mg 06/15/24 22:00 06/15/24 22:07 Atorvastatin Calcium 40 Mg Tablet PO 40 mg QHS IZABELLA Administration Citalopram Hydrobromide 10 mg 06/16/24 10:00 06/16/24 09:04 Citalopram 10 Mg Tablet PO 10 mg DAILY IZABELLA Administration Famotidine 20 mg 06/17/24 10:00 Famotidine 20 Mg Tablet PO DAILY IZABELLA Ferrous Gluconate 324 mg 06/15/24 17:00 06/16/24 09:05 Ferrous Gluconate 324 Mg Tablet PO 324 mg BIDCM IZABELLA Administration Gabapentin 600 mg 06/15/24 14:00 06/16/24 13:09 Gabapentin 600 Mg Tablet PO 600 mg TID IZABELLA Administration Insulin Glargine 15 unit 06/16/24 22:00 Insulin Glargine-Yfgn 100 Unit/Ml Pen SC BID [facility] Insulin Human Lispro 5 unit 06/16/24 12:17 06/16/24 12:29 Insulin Lispro 100 Unit/Ml Insuln.Pen SC 5 units TIDAC IZABELLA Administration Loratadine 10 mg 06/15/24 13:31 Loratadine 10 Mg Tablet PO DAILY PRN allergy symptoms Melatonin 3 mg 06/15/24 13:31 Melatonin 3 Mg Tablet PO QHS PRN PRN Insomnia Methocarbamol 250 - 500 mg 06/15/24 13:31 Methocarbamol 500 Mg Tablet PO BID PRN PRN muscle spasm Pioglitazone HCl 30 mg 06/16/24 10:00 06/16/24 09:05 Pioglitazone Hydrochloride 30 Mg Tablet PO 30 mg DAILY IZABELLA Administration Polyethylene Glycol 17 gm 06/16/24 10:00 06/16/24 09:06 Polyethylene Glycol 3350 17 Gm Packet PO 17 gm DAILY IZABELLA Administration Rivaroxaban 15 mg 06/15/24 17:00 06/15/24 18:22 Rivaroxaban 15 Mg Tablet PO 15 mg DINNER IZABELLA Administration Fluticasone/Salmeterol 1 puff 06/15/24 22:00 06/16/24 09:06 Fluticasone/Salmeterol 232-14 Inhaler INHALATION 1 puff Q12 IZABELLA Administration Senna/Docusate Sodium 2 tablet 06/15/24 22:00 06/16/24 09:04 Senna/Docusate Sodium 1 Tablet PO 2 tablet BID IZABELLA Administration Sodium Chloride 10 - 40 ml 06/15/24 13:40 06/16/24 09:23 0.9% Saline Lock 10 Ml Syringe IV 10 ml UD PRN Administration SALINE FLUSH Tolterodine Tartrate 2 mg 06/16/24 10:00 06/16/24 09:04 Tolterodine Tartrate 2 Mg Cap.Sa PO 2 mg DAILY IZABELLA Administration Tuberculin PPD 0.1 ml 06/23/24 10:00 Tuberculin,Purif.Prot.Deriv. 50 Tu/Ml Vial ID 06/23/24 10:01 X1 ONE Problem List Overactive bladder (Acute) Low back pain (Acute) Atrial fibrillation (Acute) Iron deficiency anemia (Acute) GERD (gastroesophageal reflux disease) (Acute) Essential (primary) hypertension (Acute) CKD stage 3a, GFR 45-59 ml/min (Chronic) Type 2 diabetes mellitus with hyperglycemia (Acute) Debility (Acute) Hyperlipidemia (Chronic) Vital Signs Temp Pulse Resp BP Pulse Ox O2 Del Method 98.5 F 95 16 123/67 H 99 Room Air 06/16/24 08:16 06/16/24 08:16 06/16/24 08:16 06/16/24 08:16 06/16/24 08:16 06/16/24 08:17 Oxygen Delivery Method Room Air Weight: 79.333 kg Body Mass Index (BMI) 33.0 Sodium 139 mmol/L (133-145) 06/16/24 07:09 Potassium 5.5 mmol/L (3.3-5.1) H 06/16/24 07:09 Chloride 108 mmol/L (98-108) 06/16/24 07:09 Carbon Dioxide 22.3 mmol/L (21.0-32.0) 06/16/24 07:09 Anion Gap 8 (5-15) 06/16/24 07:09 BUN 40 mg/dL (4-19) H 06/16/24 07:09 Creatinine 1.05 mg/dL (0.70-1.20) 06/16/24 07:09 Est GFR (MDRD) Non-Af 56 (>60) L 06/16/24 07:09 BUN/Creatinine Ratio 37.7 RATIO (10-20) H 06/16/24 07:09 Glucose 209 mg/dL (70-99) H 06/16/24 07:09 Assessment/Plan: 1. Pain: Acetaminophen 650mg PO Q8H, Hydrocodone/acetaminophen 5/325mg 2T PO Q6H PRN pain (4-10). Continue to monitor for increased pain, LFTs (last on 06/10/24), falls/fractures (BEERs), constipation (last documented bowel movement on 06/14/24), and PRN usage. Resident has had no doses of hydrocodone/acetaminophen. Pain appears to be managed at this time. 2. Bowel: Miralax 17g PO daily, senna/docusate 2T PO BID. Continue to monitor for constipation and/or diarrhea. Last documented bowel movement on 06/14/24. 3. COPD: Fluticasone/Salmeterol 232-14 1 puff PO Q12H, Albuterol 2.5mg nebulized Q4H PRN wheezing. Continue to monitor for shortness of breath, thrush, tachycardia (HR 95 bpm on 06/16/24). Resident has had no doses of albuterol. Residents shortness of breath appears to be managed at this time. Please rinse mouth with water and spit following fluticasone administration to prevent thrush. 4. Atrial fibrillation/DVT prophylaxis: Rivaroxaban 15mg PO with dinner. Continue to monitor for s/sx of bleeding, H/H (Hgb 6.7g/dL, Hct 21.1% on 06/16/24), renal function (CrCl 45.5ml/min, SCr 1.05mg/dL on 06/16/24) and platelets (PLT 175 on 06/16/24). 5. Hyperlipidemia: Atorvastatin 40mg PO QHS. Please consider ordering a lipid panel as the last panel was from 2020. Thanks. Continue to monitor LFTs and muscle pain. 6. Diabetes Mellitus II: Pioglitozone 30mg PO daily, insulin lispro 5 units SC TID and insulin glargine 15mg SC BID. Insulins added on this morning. Continue to monitor for heart failure/edema (BEERs), hemoglobin A1c (last 7.2% 06/10/24), S/S of hypoglycemia, glucose (last 281mg/dL) and LFTs (last on 06/10/24). 7. Overactive bladder: Tolterodine 2mg PO daily. Continue to monitor for delirium/cognitive impairment (BEERs). 8. GERD: Famotidine 20mg PO daily, Mylanta 30mL PO Q6H PRN gastric burning. Continue to monitor delirium (BEERs), constipation, renal function (famotidine adjusted for renal function) and PRN usage. Resident has had no doses of Mylanta. Gastric burning appears to be managed at this time. 9. Muscle spasm: Methocarbamol 250mg - 500mg PO BID PRN. Continue to monitor for anticholinergic effects, falls/fractures (BEERs), SALESPERSON HEARING AIDS effects and PRN usage. Resident has had no doses of methocarbamol. Muscle spasms appear to be managed at this time. 10. Diabetic polyneuropathy: Gabapentin 600mg PO TID. Continue to monitor for SALESPERSON HEARING AIDS effects, confusion, respiratory depression, falls/fractures (BEERs) and CrCl (last 45.5ml/min on 06/16/24). Consider dose reduction due to renal clearance (suggested is 400-1400mg/day in 2 divided doses). Thanks. 11. Iron deficiency anemia: Iron 325mg PO BID, Vitamin C 500mg PO daily. Continue to monitor iron studies (last on 06/16/24), hemoglobin, dark stools, constipation. 12. Insomnia: Melatonin 3mg PO QHS PRN insomnia. Continue to monitor for insomnia improvement, daytime drowsiness and PRN usage. Resident has had no doses of melatonin. Insomnia appears to be managed at this time. 13.Allergic rhinitis: Loratadine 10mg PO daily PRN allergy symptoms. Continue to monitor for allergy symptoms and PRN usage (no doses given so far). Assessment/Plan for indications treated with psychotropic medications: 1. Depression: Citalopram 10mg PO daily. Please see physician note regarding GDR. Monitor for diarrhea, nausea, headache, anxiety or drowsiness, suicidal thoughts or behaviors (Boxed Warning), symptoms of bleeding, symptoms of serotonin syndrome (including agitation, confusion, hyperreflexia, rigidity/myoclonus, tremor, tachycardia, tachypnea), sodium levels (last Na = 139mmol/L 06/16/24), QTc on last ECG = 378 06/10/24 and falls/fractures (BEERs). Monitor for efficacy including resident symptoms, behaviors and indications of distress. Monitor for tolerability including mental status, cognition, excessive sleepiness, withdrawal or decreased participation in activities and decline in physical functioning. Maximize use of nonpharmacologic/behavioral interventions to facilitate dose reduction or discontinuation as appropriate. Please evaluate the appropriateness of GDR unless contraindicated. If appropriate, GDR should be attempted in 2 separate quarters within the first year of use or admission to TCU. If GDR attempted, monitor resident symptoms/behaviors. Medical chart and medication regimen reviewed. The following medication irregularities or issues were identified: 1. Atorvastatin 40mg PO QHS. Please consider ordering a lipid panel as the last panel was from 2020. Thanks. 2. Gabapentin 600mg PO TID. Please consider dose reduction due to renal clearance to prevent SALESPERSON HEARING AIDS effects. Suggested dosing is 400-1400mg/day in 2 divided doses. Thanks. Date Date of Note: 06/16/24 Documented by User: Dr. Quentin Kellogg MD 06/16/24 17:00 TCU RX Drug Regimen Review Provider Comments Provider responsibility Provider Comments to Recommendations by Pharmacy Disagree: Define (Will order Lipid panel, but keep gabapentin dose the same because she has been stable and done well on current dose.)
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
[2024-06-16 16:34] LABS: Bedside Glucose 126 mg/dL (74-106)
--- NOTE | 2024-06-16 16:51 | NURSING ---
left dr gardner a note that pt occult stool was positive
[2024-06-16] MEDS: Rivaroxaban 15 MG Tablet PO (17:58)
--- NOTE | 2024-06-16 19:21 | NURSING ---
notified dr gardner K- 5.5- orders given for 30g kayexalate and BMP for tomorrow
--- NOTE | 2024-06-16 20:03 | NURSING ---
HS medications administered early d/t Kayexalate administration recommendation.
[2024-06-16] MEDS: Atorvastatin Calcium 40 MG Tablet PO (20:06)
[2024-06-16 21:37] LABS: Bedside Glucose 181 mg/dL (74-106)
[2024-06-16] MEDS: Insulin Glargine-YFGN 100 UNIT/ML Pen 15 UNIT SC (22:56)
[2024-06-16] MEDS: Sodium Polystyrene Sulfonate 15 GM/60 ML UDC 30 GM PO (22:57)
[2024-06-17] VITALS (8 sets, daily range): BP systolic 109–140; BP diastolic 62–85; PULSE 82–92; RESP 16–18; TEMP 35.9–37.1; O2SAT 97–100; BMI 33.0
[2024-06-17] MEDS: Gabapentin 600 MG Tablet PO ×2 (05:25→15:19)
[2024-06-17] MEDS: Acetaminophen 325 MG Tablet 650 MG PO ×3 (05:25→21:47)
[2024-06-17 06:23] LABS: Hematocrit 21.4 % (37-47); Hemoglobin 6.6 g/dL (12.0-15.0)
[2024-06-17 06:36] LABS: Bedside Glucose 135 mg/dL (74-106)
[2024-06-17 06:55] LABS: Anion Gap 10 (5-15); BUN 43 mg/dL (4-19); BUN/Creat Ratio 39.7 RATIO (10-20); Calcium,Total 8.7 mg/dL (7.6-11.0); Carbon Dioxide 22.4 mmol/L (21.0-32.0); Chloride 108 mmol/L (98-108); Cholesterol 120 mg/dL (<=200); Creatinine, Serum 1.09 mg/dL (0.70-1.20); EST Glomerular Filtration Rate 54 (>60); Estimated Creatinine Clearance 43.84 ml/min (50-250); Glucose 155 mg/dL (70-99); High Density Lipoprotein 37 mg/dL; Low Density Lipoprotein Calc. 66 mg/dL; Potassium 4.7 mmol/L (3.3-5.1); Sodium Level 140 mmol/L (133-145); Triglycerides 83 mg/dL; Very Low Density Lipoprotein 17 mg/dL (5-40); cholesterol:hdl ratio screen 3.23
--- NOTE | 2024-06-17 07:52 | NURSING ---
Addendum entered by Claudia Diego 06/17/24 17:20: Pt returns from infusion center, received 2 units blood. Asymptomatic, no complaints. Original Note: Order for 2 units blood, orders entered, paper order faxed to transfusion center.
[2024-06-17] MEDS: Fluticasone/Salmeterol 232-14 Inhaler 1 PUFF INHALATION ×2 (08:20→21:45)
[2024-06-17] MEDS: Senna/Docusate Sodium 1 Tablet 2 TABLET PO (08:20)
[2024-06-17] MEDS: Famotidine 20 MG Tablet PO (08:21)
[2024-06-17] MEDS: Pioglitazone Hydrochloride 30 MG Tablet PO (08:21)
[2024-06-17] MEDS: Ferrous Gluconate 324 MG Tablet PO ×2 (08:22→16:50)
[2024-06-17] MEDS: Citalopram 10 MG Tablet PO (08:22)
[2024-06-17] MEDS: Ascorbic Acid 500 MG Tablet PO (08:22)
[2024-06-17] MEDS: Tolterodine Tartrate 2 MG CAP.SA PO (08:22)
[2024-06-17] MEDS: Insulin Glargine-YFGN 100 UNIT/ML Pen 15 UNIT SC ×2 (08:23→21:48)
[2024-06-17] MEDS: Insulin Lispro 100 UNIT/ML INSULN.PEN SC ×3 (08:27→16:50)
--- NOTE | 2024-06-17 10:43 | NURSING ---
Addendum entered by Imtiaz Harrison 06/17/24 14:37: Return call received from [facility]. 2 week follow-up scheduled for 06/26/24 at 1400. Son Arvin to transport. Original Note: Await return call from [facility] for 2 week follow-up. Talked to resident and Arvin. Per Arvin would like scheduled for the afternoon on Saturday.
[2024-06-17] MEDS: 0.9% Saline Lock 10 ML Syringe IV (11:46)
[2024-06-17 12:55] LABS: Bedside Glucose 138 mg/dL (74-106)
[2024-06-17] MEDS: Furosemide 20 MG/2 ML VIAL IV (13:49)
[2024-06-17 16:48] LABS: Bedside Glucose 120 mg/dL (74-106)
[2024-06-17] MEDS: Rivaroxaban 15 MG Tablet PO (16:49)
--- NOTE | 2024-06-17 19:07 | EX.PCM.CON.G ---
HPI Consult Data Date of Consult: 06/17/24 HPI Narrative Reason for Consultation: Anemia HPI Narrative: MICHAEL COMBS, is a 73 year old female recently hospitalized for right distal spiral femur fracture, underwent ORIF right distal femur fracture, intramedullary nail retrograde, cerclage wires 06/11/[address] Sivakumar Shannon, admitted to TCU with debility and rehab. I was called to see the patient due to decreasing hemoglobin and Hemoccult positive stools in the setting of progressive iron deficiency anemia while on anticoagulation. She got blood transfusions today. [facility] Medical History Diabetes Former smoker Pulmonary embolism Benign essential HTN Aortic root dilatation Cardiomyopathy Chronic kidney disease, stage 3 Nonrheumatic aortic (valve) stenosis Nonrheumatic tricuspid (valve) insufficiency Nonrheumatic mitral (valve) insufficiency Hemorrhoids Atrophic vaginitis Mixed incontinence Postlaminectomy syndrome (02/01/16) Lung nodule (10/28/14) Lichen simplex chronicus (10/20/10) Left foot drop (04/24/13) Osteoarthritis Lumbar stenosis Degenerative joint disease of right knee History of colitis (10/19/10) Hyperlipidemia History of pulmonary embolus (PE) (10/30/06) Scoliosis Asthma History of DVT (deep vein thrombosis) (10/30/06) Anemia (04/10/17) History of syncope (10/01/17) Paroxysmal atrial fibrillation (03/13/18) DM2 (diabetes mellitus, type 2) Chronic bronchitis Syncope Home Medications ?Medication ?Instructions ?Recorded ?Last Taken ?Type fluticasone 100 mcg-salmeterol 50 1 puff inhalation BID asthma 01/29/13 Unknown History mcg/dose blistr powdr for inhalation ferrous gluconate 324 mg (37.5 mg 325 mg PO BID iron 05/29/18 Unknown History iron) tablet sennosides 8.6 mg-docusate sodium 2 tab PO BID PRN Constipation 04/15/19 Unknown History 50 mg tablet albuterol sulfate 2.5 mg/3 mL 2.5 mg inhalation Q4H PRN 04/23/19 Unknown History (0.083 %) solution for nebulization shortness of breath or wheezing albuterol sulfate 90 mcg/actuation 2 puff inhalation 4X/DAY PRN asthma 12/05/21 Unknown History aerosol inhaler famotidine 40 mg tablet 40 mg PO DAILY stomach acid body straightener 12/05/21 Unknown History cetirizine 10 mg tablet 10 mg PO DAILY PRN allergy symptoms 06/21/22 Unknown History gabapentin 600 mg tablet 600 mg PO TID neuropathy 06/21/22 Unknown History pioglitazone 30 mg tablet 30 mg PO DAILY diabetes 06/21/22 Unknown History rivaroxaban 15 mg tablet (Xarelto) 15 mg PO DAILY blood thinner #90 12/19/22 Unknown Rx tabs atorvastatin 40 mg tablet 40 mg PO DAILY cholesterol #90 tabs 04/07/24 Unknown Rx solifenacin 5 mg tablet 5 mg PO QDAY overactive bladder 05/27/24 Unknown History ascorbic acid (vitamin C) 500 mg 500 mg PO DAILY supplement 06/09/24 Unknown History tablet citalopram 10 mg tablet 10 mg PO DAILY mood 06/09/24 Unknown History methocarbamol 500 mg tablet 250 - 500 mg PO BID PRN PRN muscle 06/09/24 Unknown History spasm acetaminophen 325 mg tablet 650 mg (2 x 325 mg) PO Q8 pain #0 06/15/24 Unknown Rx tabs aluminum-mag hydroxide-simethicone 30 ml PO Q6H PRN PRN Gastric 06/15/24 Unknown Rx 400 mg-400 mg-40 mg/5 mL oral susp Burning #0 mL (Mag-Al Plus Extra Strength) hydrocodone-acetaminophen 5-325mg 2 tab PO Q6H PRN PRN Pain Score 06/15/24 Unknown Rx 5mg-325mg 4-10 1 day #3 tabs insulin lispro 100 unit/mL See Protocol subcut ACHS diabetes 06/15/24 Unknown Rx subcutaneous pen (Humalog KwikPen #0 mL (U-100) Insulin) melatonin 3 mg tablet 3 mg PO QHS PRN PRN Insomnia #0 06/15/24 Unknown Rx tabs Allergy/AdvReac Type Severity Reaction Status Date / Time cider vinegar Allergy NEEDS Verified 06/09/24 20:23 FOLLOW-UP cottonseed oil Allergy NEEDS Verified 06/09/24 20:23 FOLLOW-UP grass pollen Allergy NEEDS Verified 06/09/24 20:23 FOLLOW-UP morphine Allergy Unknown Verified 06/09/24 20:23 oxycodone HCl (From Allergy Unknown Verified 06/09/24 20:23 OxyContin) propoxyphene HCl (From Allergy Unknown Verified 06/09/24 20:23 Darvon) wool Allergy NEEDS Verified 06/09/24 20:23 FOLLOW-UP chlorhexidine AdvReac Rash Verified 06/09/24 20:23 feathers AdvReac NEEDS Verified 06/09/24 20:23 FOLLOW-UP Family History Mother CAD (coronary artery disease) DVT (deep venous thrombosis) Hypertension Father Prostate cancer Sister Breast cancer Surgical History History of total right hip replacement (09/17/18) History of total right knee replacement (2008) History of hysterectomy (1999) History of bilateral salpingo-oophorectomy (1999) H/O transurethral destruction of bladder lesion (03/26/14) History of fractured kneecap (2007) History of partial knee replacement (2006) H/O thumb surgery (2003) Status post ORIF of fracture of ankle (1986) H/O tubal ligation (1988) History of laparoscopy (1999) History of lumbar laminectomy (11/05/12) Status post insertion of inferior vena caval filter (10/30/06) History of colonoscopy (05/17/11) History of (1988) Patellar tendon rupture History of knee replacement (09/02/06) Social History household members: family Smoking Status: Former smoker quit date: 02/18/69 alcohol intake: never substance use type: does not use caffeine: Yes Type: coffee Number of servings: 1 ROS Constitutional Constitutional: Denies fatigue, fever(s), poor appetite, weight gain or weight loss Gastrointestinal Gastrointestinal: Denies belching, bloating, change in bowel habits, change in stool character, chewing difficulty, coffee ground emesis, constipation, cramping, diarrhea, dyspepsia, dysphagia, early satiety, excessive flatus, fecal incontinence, heartburn, hematemesis, hematochezia, hemorrhoids, loose stools, melena, nausea, odynophagia, rectal bleeding, tenesmus, vomiting or weight changes Physical Exam Const alert, oriented x3, no apparent distress and healthy appearing General Appearance: cooperative GI normal to inspection, nondistended, normoactive bowel sounds, soft to palpation, non-tender and non-distended Percussion: normal to percussion Rectal Exam: deferred Lab / Micro Data 06/17/24 05:13 06/17/24 05:13 Labs: Laboratory Results - last 24 hr 06/16/24 21:13: POC Glucose 181 H 06/17/24 05:13: Hgb 6.6 L, Hct 21.4 L, Sodium 140, Potassium 4.7, Chloride 108, Carbon Dioxide 22.4, Anion Gap 10, BUN 43 H, Creatinine 1.09, Estim Creat Clear Calc 43.84 L, Est GFR (MDRD) Non-Af 54 L, BUN/Creatinine Ratio 39.7 H, Glucose 155 H, Calcium 8.7, Triglycerides 83, Cholesterol 120, LDL Cholesterol, Calc 66, VLDL Cholesterol 17, HDL Cholesterol 37 L, Cholesterol/HDL Ratio 3.23 06/17/24 06:10: POC Glucose 135 H 06/17/24 08:50: Blood Type A POSITIVE, Antibody Screen NEGATIVE, Crossmatch See Detail 06/17/24 12:20: POC Glucose 138 H 06/17/24 16:29: POC Glucose 120 H Micro: Microbiology 06/16/24 16:15 Stool Stool Occult Blood (GILBERT) - Final Occult Blood Positive Assessment & Plan Assessment/Plan (1) Iron deficiency anemia: PLAN: [age]-year-old with recent right distal spiral femur fracture status post ORIF with repair and worsening iron deficiency anemia status post blood transfusion on anticoagulation. She will undergo an upper endoscopy to evaluate upper GI tract. She was explained alternatives, risk and benefits including withstanding bleeding, infection, sepsis, perforation, need for emergency or to . She have an ASA of 3. Charges/Coding Visit Charges Inpatient E&M: 36581 SNF Init L2
[2024-06-17 21:40] LABS: Bedside Glucose 138 mg/dL (74-106)
[2024-06-17] MEDS: Atorvastatin Calcium 40 MG Tablet PO (21:47)
--- NOTE | 2024-06-17 22:13 | NURSING ---
Neurontin 600mg administered at 2213. Will not scan in [facility]. IT made aware. Verified with Christy Nina RN.
[2024-06-18] MEDS: Gabapentin 600 MG Tablet PO ×3 (05:36→21:25)
[2024-06-18] MEDS: Acetaminophen 325 MG Tablet 650 MG PO ×3 (05:37→21:28)
[2024-06-18 05:44] LABS: Absolute Lymphocyte Count 1.91 X10^3/uL (0.83-4.51); Absolute Neutrophil Count 2.9 X10^3/uL (2.0-7.7); Basophil# 0.02 X10^3/uL; Basophil% 0.3 % (0-1); Eosinophil# 0.24 X10^3/uL; Hematocrit 29.3 % (37-47); Hemoglobin 9.6 g/dL (12.0-15.0); Lymphocyte # 1.91 X10^3/ul (0.83-4.51); Lymphocyte % 31.8 % (19-41); Mean Corp Hgb Conc 32.8 g/dL (32-36); Mean Corpuscular Hgb 31.1 pg (27.0-32.0); Mean Corpuscular Volume 94.8 fL (81-99); Mean Platelet Vol. 9.4 fl (6.2-12.0); Monocyte# 0.73 X10^3/uL; Monocyte% 12.1 % (0-10); NRBC Flagged by Analyzer 0 % (0-5); Neutrophil # 2.93 X10^3/uL (2.7-7.7); Neutrophil % 48.8 % (47-70); Platelet Count 208 K/mm3 (150-450); RBC Distribution Width CV 16.6 % (11.6-14.6); RBC Distribution Width SD 54.9 fl (35.1-43.9); Red Blood Count 3.09 M/mm3 (4.2-5.4)
[2024-06-18 06:09] LABS: International Normalized Ratio 1.4; Prothrombin Time (Protime)PT. 17.5 SECONDS (11.7-14.9)
[2024-06-18 06:10] LABS: Partial Thromboplast Time 35.2 Seconds (24.1-36.2)
[2024-06-18 06:17] LABS: Anion Gap 8 (5-15); BUN 40 mg/dL (4-19); BUN/Creat Ratio 31.6 RATIO (10-20); Calcium,Total 8.9 mg/dL (7.6-11.0); Chloride 106 mmol/L (98-108); Creatinine, Serum 1.25 mg/dL (0.70-1.20); EST Glomerular Filtration Rate 46 (>60); Estimated Creatinine Clearance 38.23 ml/min (50-250); Glucose 131 mg/dL (70-99); Potassium 4.8 mmol/L (3.3-5.1); Sodium Level 141 mmol/L (133-145)
[2024-06-18 07:27] VITALS: PULSE 98; O2SAT 96
[2024-06-18 07:45] LABS: Bedside Glucose 124 mg/dL (74-106)
--- NOTE | 2024-06-18 09:57 | NURSING ---
Addendum entered by Fermín Menezes 06/18/24 16:31: Call back from Susan at [facility] for Dr. Shannon, OK to remove surgical dressing. May reapply dressing if needed. Leave josh intact. OK for patient to shower. Original Note: Call placed to [facility] Dr. Shannon's office to obtain order to remove post op surgical dressing. VM left with call back number.
[2024-06-18 11:15] LABS: Bedside Glucose 138 mg/dL (74-106)
[2024-06-18 14:07] VITALS: BP 122/80; PULSE 102; RESP 16; TEMP 36.8; O2SAT 99; BMI 33.0
--- NOTE | 2024-06-18 14:15 | NURSING ---
Call placed to ENDO for ETA on endoscopy with Dr. Sher. Per Marco, patient will be added to schedule for endoscopy tomorrow. Patient updated. Diet order changed. Patient NPO tonight at midnight.
[2024-06-18] MEDS: Citalopram 10 MG Tablet PO (14:41)
[2024-06-18] MEDS: Pioglitazone Hydrochloride 30 MG Tablet PO (14:41)
[2024-06-18] MEDS: Ascorbic Acid 500 MG Tablet PO (14:41)
[2024-06-18] MEDS: Famotidine 20 MG Tablet PO (14:42)
[2024-06-18] MEDS: Senna/Docusate Sodium 1 Tablet 2 TABLET PO (14:42)
[2024-06-18] MEDS: Tolterodine Tartrate 2 MG CAP.SA PO (14:42)
[2024-06-18] MEDS: Fluticasone/Salmeterol 232-14 Inhaler 1 PUFF INHALATION ×2 (14:43→21:27)
--- NOTE | 2024-06-18 15:41 | NURSING ---
Call received from pre-procedure for patient's endoscopy for tomorrow at 1030. Patient can have Advair, gabapentin, [place] if needed for pain, and Tylenol. Hold dose of Xarleto for today at 1700. Call ext. [phone] with any questions.
--- NOTE | 2024-06-18 15:48 | CHAPLAIN ---
Type of Pastoral Visit ___ Initial Visit _x__ Follow-up Visit ___ On-call Visit ___ General Patient Visit ___ Spiritual Assessment ___ Family Conference ___ Bereavement ___ Rapid Response ___ Code Blue ___ Other (describe below) Pastoral Care Referral From _x__ Patient ___ Family ___ Nurse ___ Physician ___ Physical Therapy Manager ___ Sand Screener Operator ___ Other (describe below) Sacrament/Intervention _x__ Active listening ___ Anointing ___ Protestant ___ Bereavement ___ Communion ___ Camille exploration ___ _x__ Life review _x__ Prayer ___ Reconciliation ___ Sacrament of Sick _x__ Supportive presence ___ Wedding ___ Other (describe below) Pastoral Comments this is a follow up visit in TCU to the patient that was seen earlier in the [facility] unit this week; pt is talkative and speaks first about the missed chance to have a scope today and how she hasn't had food yet; pt also focuses on her pets at home and how her family is taking care of them; pt welcomes a prayer and presence
[2024-06-18 16:49] LABS: Bedside Glucose 182 mg/dL (74-106)
[2024-06-18 16:51] LABS: Hematocrit 30.6 % (37-47); Hemoglobin 10.2 g/dL (12.0-15.0)
[2024-06-18] MEDS: Insulin Lispro 100 UNIT/ML INSULN.PEN SC (17:47)
[2024-06-18] MEDS: HYDROcodone Bitartrate/Apap 5/325 Tablet PO (17:48)
[2024-06-18] MEDS: Ferrous Gluconate 324 MG Tablet PO (17:48)
[2024-06-18 20:39] LABS: Bedside Glucose 175 mg/dL (74-106)
[2024-06-18] MEDS: Atorvastatin Calcium 40 MG Tablet PO (21:27)
[2024-06-18] MEDS: Insulin Glargine-YFGN 100 UNIT/ML Pen 15 UNIT SC (21:27)
--- NOTE | 2024-06-18 21:37 | NURSING ---
sx dressings removed per order. 6 (six) surgical sites observed to RLE. Right lateral proximal site with 4 josh observed intact, slight redness, no heat, no edema, no drainage. RLE distal lateral sx site observed with 15 josh. slight redness, no heat, no edema, no drainage. Lateral right knee proximal sx site observed with 3 josh intact, no heat, no edema, slight redness, no drainage. Distal lateral right knee sx site observed with 2 josh intact, no heat, no edema, slight redness, no drainage. Right knee obsered with 13 josh intact, no heat, no edema, slight redness, no drainage. RLE medial knee sx site observed with 2 johs intact, no heat, no edema, slight redness, no drainage
--- NOTE | 2024-06-19 00:01 | NURSING ---
NPO per order
[2024-06-19] MEDS: Gabapentin 600 MG Tablet PO ×3 (05:42→20:58)
[2024-06-19] MEDS: Acetaminophen 325 MG Tablet 650 MG PO ×3 (05:42→20:59)
[2024-06-19 06:27] LABS: Bedside Glucose 134 mg/dL (74-106)
[2024-06-19 08:00] VITALS: BP 117/68; PULSE 76; RESP 18; TEMP 36.5; O2SAT 99
[2024-06-19] MEDS: Fluticasone/Salmeterol 232-14 Inhaler 1 PUFF INHALATION ×2 (08:08→20:59)
[2024-06-19] MEDS: Famotidine 20 MG Tablet PO (08:08)
[2024-06-19 10:00] VITALS: BP 117/68; PULSE 76; RESP 18; TEMP 36.5; O2SAT 99
--- NOTE | 2024-06-19 10:00 | NURSING ---
Patient picked up for EGD at this time
--- NOTE | 2024-06-19 10:17 | NURSING ---
Drapery Inspector Note; Activity Asset: Rupali Bryant is independent in her choice of daily activities w/reminders. She stated she will try anything, she enjoys crocheting, coloring and spending time w/family. She has all her stuff from home to work on her. Her family will visit and bring in anything she may need. Staff will encourage social activities, remind her of weekly activities and respect her right to say no.
--- NOTE | 2024-06-19 10:18 | PCM.PRE.AN2 ---
ASA Classification* ASA Classification ASA Classification: 3 Assessment & Plan Anesthesia* Anesthesia Assessment Anesthesia Assessment: Discussed sedation and/or anesthesia options, risks, benefits, and alternatives with patient/parents/legal guardian/POA. Questions invited. The patient/parents/legal guardian/POA seems to understand and agrees to proceed with anesthesia plan. Reviewed the physical assessment, medical history, allergy history and patient home medications list prior to surgery/procedure/anesthetic and documented any changes. Performed airway and anesthesia risk assessments. Anesthesia Type Anesthesia Type: MAC Anesthesia Focused Assessment* Temperature: 97.7 F Pulse Rate: 76 Blood Pressure: 117/68 Respiratory Rate: 18 Pulse Ox: 99 Airway Assessment Mouth opens: >3 cm Mallampati Score: II Focused Labs Anesthesia Preop lab: CBC WBC 6.0 K/mm3 (4.4-11.0) 06/18/24 05:09 06/18/24 RBC 3.09 M/mm3 (4.2-5.4) L 06/18/24 05:09 06/18/24 Hgb 10.2 g/dL (12.0-15.0) L 06/18/24 16:35 06/18/24 Hct 30.6 % (37-47) L 06/18/24 16:35 06/18/24 Plt Count 208 K/mm3 (150-450) 06/18/24 05:09 06/18/24 CHEMISTRY Potassium 4.8 mmol/L (3.3-5.1) 06/18/24 05:09 06/18/24 Sodium 141 mmol/L (133-145) 06/18/24 05:09 06/18/24 Magnesium 2.0 mg/dL (1.5-2.2) 06/09/24 20:27 06/09/24 Phosphorus 2.9 mg/dL (2.7-4.5) 06/15/24 08:00 06/15/24 BUN 40 mg/dL (4-19) H 06/18/24 05:09 06/18/24 Creatinine 1.25 mg/dL (0.70-1.20) H 06/18/24 05:09 06/18/24 Glucose 131 mg/dL (70-99) H 06/18/24 05:09 06/18/24 POC Glucose 134 mg/dL (74-106) H 06/19/24 06:06 06/19/24 TSH 2.210 uIU/mL (0.300-4.200) 06/10/24 05:06 06/10/24 COAG PT 17.5 SECONDS (11.7-14.9) H 06/18/24 05:09 06/18/24 Pre-Assessment Diagnosis/Proposed Procedure Planned Operative Procedure(s): EGD Anesthesia History Anesthesia History - medical transcription radiology: Anesthesia History - medical transcription radiology Hx Hospitalization No 04/15/19 15:10 Any Problems With Anesthesia No 06/13/24 00:00 Cholinesterase deficiency No 06/13/24 00:00 You/Your Family Experience No 06/13/24 00:00 fever (hyperthermia) with Relationship Recent Exposure to Contagious No 06/13/24 00:00 Disease Does patient have nerve No 06/13/24 00:00 stimulator Patient instructed to have device shut off --Does patient have Pacemaker No 06/19/24 08:00 or ICD? When Was Last Pacemaker Check QUESTION #4 FULL TEXT: You/Your Family Experience fever (hyperthermia) with Anesthesia Last Oral Intake Last Oral intake: Last Oral Intake NPO since 00:00 06/19/24 08:00 Meds taken in AM with sips of Yes 06/19/24 08:00 water? Meds patient instructed to Pepcid, Tylenol, and 06/19/24 08:00 take am of surgery Neurotin PONV PONV - medical transcription radiology: PONV - medical transcription radiology Female HX of Motion Sickness HX of N/V After Surgery Non-Smoker Duration of Surgery greater than 60 minutes Number of Risk Factors PONV Score Height & Weight Height & Weight: Anesthesia: Height & Weight Height 5 ft 1 in 06/18/24 14:07 Weight: 79.33 kg 06/19/24 08:00 Body Mass Index (BMI) 33.0 06/18/24 14:07 Respiratory Assessment Respiratory Assessment - medical transcription radiology: Respiratory Tract Infection Hx - medical transcription radiology Hx Respiratory Tract Infection No 06/13/24 00:00 STOP Sleep Apnea STOP Sleep Apnea - medical transcription radiology: STOP Sleep Apnea - medical transcription radiology Hx Hypertension Yes 06/17/24 11:32 Hx Sleep Apnea No 06/15/24 14:53 CPAP No 06/11/24 16:24 BIPAP No 04/15/19 15:10 Do you snore loudly (louder No 06/15/24 14:53 than talking or can be heard Do you often feel tired/ Yes 06/15/24 14:53 fatigued/ sleepy during daytime? Has anyone observed you stop No 06/15/24 14:53 breathing during sleep? STOP Results Positive 06/15/24 14:53 QUESTION #5 FULL TEXT : Do you snore loudly (louder than talking or can be heard through closed doors)? Tobacco Use History Tobacco Use History - medical transcription radiology: Tobacco Use History - medical transcription radiology Tobacco Use Smoking Status Former smoker 06/15/24 15:33 Hx Tobacco Use No 06/15/24 14:53 Years Smoking Packs Smoked per Day Smoking Cessation Date was No - quit smoking greater 06/15/24 14:53 within the last 15 years than 15 years ago Hx Smoking Cessation Date 02/19/72 06/15/24 14:53 Hx Smoking Cessation Counseling Hematologic Medial History Hematologic Hx - medical transcription radiology: Hematologic Medical Hx - interventional radiology rn Hx of Blood Transfusion Yes 06/17/24 11:35 Hx of Transfusion in last 3 Yes 06/17/24 11:35 Months Date of Last Transfusion (if May 2024 06/17/24 11:35 within last 3 months) Ever experience any problems No 06/17/24 11:35 with transfusion(s)? Specify any problems Hx of Preganancy in last 3 No 06/17/24 11:35 Months Nurse Filling Out Transfusion SGESSEL 06/17/24 11:35 & Questions: Date: 06/17/24 06/17/24 11:35 Time: 11:35 06/17/24 11:35 Patient unable to answer at this time (ie. confused, unrespo /Reproduction History /Reproductive History - medical transcription radiology: /Reproductive Hx- medical transcription radiology Hx Now Gestational Age (in weeks): EDC: Hx Hx Para Hx Section SAB Active Medications Active Medications: Current Medications Generic Name Dose Route Start Last Admin Trade Name Freq PRN Reason Stop Dose Admin Acetaminophen 650 mg 06/15/24 14:00 06/19/24 05:42 Acetaminophen 325 Mg Tablet PO 650 mg Q8 IZABELLA Administration Hydrocodone Bitart/Acetaminophen 2 tablet 06/15/24 13:31 06/18/24 17:48 Hydrocodone Bitartrate/Apap 5/325 Tablet PO 2 tablet Q6H PRN PRN Administration Pain Score 4-10 Al Hydroxide/Mg Hydroxide 30 ml 06/15/24 13:31 Mag Hydrox/Al Hydrox/Simeth 30 Ml Udc PO Q6H PRN PRN Gastric Burning Albuterol Sulfate 2.5 mg 06/15/24 13:31 Albuterol 2.5 Mg/3 Ml Vial.Neb. INHALATION Q4H PRN shortness of breath or wheezing Ascorbic Acid 500 mg 06/16/24 10:00 06/18/24 14:41 Ascorbic Acid 500 Mg Tablet PO 500 mg DAILY IZABELLA Administration Atorvastatin Calcium 40 mg 06/15/24 22:00 06/18/24 21:27 Atorvastatin Calcium 40 Mg Tablet PO 40 mg QHS IZABELLA Administration Citalopram Hydrobromide 10 mg 06/16/24 10:00 06/18/24 14:41 Citalopram 10 Mg Tablet PO 10 mg DAILY IZABELLA Administration Famotidine 20 mg 06/17/24 10:00 06/19/24 08:08 Famotidine 20 Mg Tablet PO 20 mg DAILY IZABELLA Administration Ferrous Gluconate 324 mg 06/15/24 17:00 06/18/24 17:48 Ferrous Gluconate 324 Mg Tablet PO 324 mg BIDCM IZABELLA Administration Gabapentin 600 mg 06/15/24 14:00 06/19/24 05:42 Gabapentin 600 Mg Tablet PO 600 mg TID IZABELLA Administration Insulin Glargine 15 unit 06/16/24 22:00 06/18/24 21:27 Insulin Glargine-Yfgn 100 Unit/Ml Pen SC 15 unit BID IZABELLA Administration Insulin Human Lispro 5 unit 06/16/24 12:17 06/18/24 17:47 Insulin Lispro 100 Unit/Ml Insuln.Pen SC 5 units TIDAC IZABELLA Administration Loratadine 10 mg 06/15/24 13:31 Loratadine 10 Mg Tablet PO DAILY PRN allergy symptoms Melatonin 3 mg 06/15/24 13:31 Melatonin 3 Mg Tablet PO QHS PRN PRN Insomnia Methocarbamol 250 - 500 mg 06/15/24 13:31 Methocarbamol 500 Mg Tablet PO BID PRN PRN muscle spasm Pioglitazone HCl 30 mg 06/16/24 10:00 06/18/24 14:41 Pioglitazone Hydrochloride 30 Mg Tablet PO 30 mg DAILY IZABELLA Administration Polyethylene Glycol 17 gm 06/16/24 10:00 06/18/24 14:44 Polyethylene Glycol 3350 17 Gm Packet PO Not Given DAILY IZABELLA Rivaroxaban 15 mg 06/15/24 17:00 06/18/24 15:47 Rivaroxaban 15 Mg Tablet PO Not Given DINNER IZABELLA Fluticasone/Salmeterol 1 puff 06/15/24 22:00 06/19/24 08:08 Fluticasone/Salmeterol 232-14 Inhaler INHALATION 1 puff Q12 IZABELLA Administration Senna/Docusate Sodium 2 tablet 06/15/24 22:00 06/18/24 21:29 Senna/Docusate Sodium 1 Tablet PO Not Given BID IZABELLA Sodium Chloride 10 - 40 ml 06/15/24 13:40 06/17/24 11:46 0.9% Saline Lock 10 Ml Syringe IV 10 ml UD PRN Administration SALINE FLUSH Tolterodine Tartrate 2 mg 06/16/24 10:00 06/18/24 14:42 Tolterodine Tartrate 2 Mg Cap.Sa PO 2 mg DAILY IZABELLA Administration Tuberculin PPD 0.1 ml 06/23/24 10:00 Tuberculin,Purif.Prot.Deriv. 50 Tu/Ml Vial ID 06/23/24 10:01 X1 [facility] Medical History History of echocardiogram Cardiology follow-up encounter Wears dentures Wears glasses Bladder disease Stroke/cerebrovascular accident Insulin dependent diabetes mellitus Arthritis Walker as ambulation aid Bruising Diabetes Former smoker Pulmonary embolism Benign essential HTN Aortic root dilatation Cardiomyopathy Chronic kidney disease, stage 3 Nonrheumatic aortic (valve) stenosis Nonrheumatic tricuspid (valve) insufficiency Nonrheumatic mitral (valve) insufficiency Hemorrhoids Atrophic vaginitis Mixed incontinence Postlaminectomy syndrome (02/01/16) Lung nodule (10/28/14) Lichen simplex chronicus (10/20/10) Left foot drop (04/24/13) Osteoarthritis Lumbar stenosis Degenerative joint disease of right knee History of colitis (10/19/10) Hyperlipidemia History of pulmonary embolus (PE) (10/30/06) Scoliosis Asthma History of DVT (deep vein thrombosis) (10/30/06) Anemia (04/10/17) History of syncope (10/01/17) Paroxysmal atrial fibrillation (03/13/18) DM2 (diabetes mellitus, type 2) Chronic bronchitis Syncope Home Medications ?Medication ?Instructions ?Recorded ?Last Taken ?Type fluticasone 100 mcg-salmeterol 50 1 puff inhalation BID asthma 01/29/13 Unknown History mcg/dose blistr powdr for inhalation ferrous gluconate 324 mg (37.5 mg 325 mg PO BID iron 05/29/18 Unknown History iron) tablet sennosides 8.6 mg-docusate sodium 2 tab PO BID PRN Constipation 04/15/19 Unknown History 50 mg tablet albuterol sulfate 90 mcg/actuation 2 puff inhalation 4X/DAY PRN asthma 12/05/21 Unknown History aerosol inhaler famotidine 40 mg tablet 40 mg 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 12/05/21 Unknown History cetirizine 10 mg tablet 10 mg PO DAILY PRN allergy symptoms 06/21/22 Unknown History gabapentin 600 mg tablet 600 mg PO TID neuropathy 06/21/22 Unknown History pioglitazone 30 mg tablet 30 mg PO DAILY diabetes 06/21/22 Unknown History rivaroxaban 15 mg tablet (Xarelto) 15 mg PO DAILY blood thinner #90 12/19/22 Unknown Rx tabs atorvastatin 40 mg tablet 40 mg PO DAILY cholesterol #90 tabs 04/07/24 Unknown Rx solifenacin 5 mg tablet 5 mg PO QDAY overactive bladder 05/27/24 Unknown History ascorbic acid (vitamin C) 500 mg 500 mg PO DAILY supplement 06/09/24 Unknown History tablet citalopram 10 mg tablet 10 mg PO DAILY mood 06/09/24 Unknown History methocarbamol 500 mg tablet 250 - 500 mg PO BID PRN PRN muscle 06/09/24 Unknown History spasm acetaminophen 325 mg tablet 650 mg (2 x 325 mg) PO Q8 pain #0 06/15/24 Unknown Rx tabs aluminum-mag hydroxide-simethicone 30 ml PO Q6H PRN PRN Gastric 06/15/24 Unknown Rx 400 mg-400 mg-40 mg/5 mL oral susp Burning #0 mL (Mag-Al Plus Extra Strength) hydrocodone-acetaminophen 5-325mg 2 tab PO Q6H PRN PRN Pain Score 06/15/24 Unknown Rx 5mg-325mg 4-10 1 day #3 tabs insulin lispro 100 unit/mL See Protocol subcut ACHS diabetes 06/15/24 Unknown Rx subcutaneous pen (Humalog KwikPen #0 mL (U-100) Insulin) melatonin 3 mg tablet 3 mg PO QHS PRN PRN Insomnia #0 06/15/24 Unknown Rx tabs Allergy/AdvReac Type Severity Reaction Status Date / Time cider vinegar Allergy NEEDS Verified 06/09/24 20:23 FOLLOW-UP cottonseed oil Allergy NEEDS Verified 06/09/24 20:23 FOLLOW-UP grass pollen Allergy NEEDS Verified 06/09/24 20:23 FOLLOW-UP morphine Allergy Unknown Verified 06/09/24 20:23 oxycodone HCl (From Allergy Unknown Verified 06/09/24 20:23 OxyContin) propoxyphene HCl (From Allergy Unknown Verified 06/09/24 20:23 Darvon) wool Allergy NEEDS Verified 06/09/24 20:23 FOLLOW-UP chlorhexidine AdvReac Rash Verified 06/09/24 20:23 feathers AdvReac NEEDS Verified 06/09/24 20:23 FOLLOW-UP Family History Mother CAD (coronary artery disease) DVT (deep venous thrombosis) Hypertension Father Prostate cancer Sister Breast cancer Surgical History History of total right hip replacement (09/17/18) History of total right knee replacement (2008) History of hysterectomy (1999) History of bilateral salpingo-oophorectomy (1999) H/O transurethral destruction of bladder lesion (03/26/14) History of fractured kneecap (2007) History of partial knee replacement (2006) H/O thumb surgery (2003) Status post ORIF of fracture of ankle (1986) H/O tubal ligation (1988) History of laparoscopy (1999) History of lumbar laminectomy (11/05/12) Status post insertion of inferior vena caval filter (10/30/06) History of colonoscopy (05/17/11) History of (1988) Patellar tendon rupture History of knee replacement (09/02/06) Social History household members: family Smoking Status: Former smoker quit date: 02/18/69 alcohol intake: never substance use type: does not use caffeine: Yes Type: coffee Number of servings: 1 Review of Systems (Anesthesia) ROS Narrative System reviewed and no additional complaints, except as documented.
[2024-06-19 10:19] VITALS: BP 117/68; PULSE 76; RESP 18; TEMP 36.5; O2SAT 99
--- NOTE | 2024-06-19 10:21 | CASEMGMT ---
Social Work SW phoned son, Arvin, to gather further information. son stated he was at work on his break and agreed to speak with this worker. SW requested son provide further information on pt's home set up, and he has any issues. Son was silent. SW followed up with more specific questions. Son stated pt has a FFSU, as the home is one-story, and Vivek, Josh and pt live on the first floor, with no steps, and Arvin and Yane live in the basement. Son works [employer] but his , Yane, is home during the day to assist the pt and others. Son did not provide any detailed information and only answered the question this worker asked. SW had to continue asking pointed questions. Son was cooperative. SW asked if he had any concerns with anyone in the home; any concerns with the pt at home - son replied, No. SW inquired about bed bugs. Son stated, defensively, pt had bed bugs at least 10 years ago and confirmed no current issues; everything was taken care of then. SW inquired if son manages pt's finances. Son confirmed, but stated pt doesn't have a lot. SW inquired about specifics to assess for ATA. Son knew amounts and pt does have LI policy, but no other assets and income would qualify. SW offered to appl for pt, if resources are needed. Son denied at this time. Son offered pt never managed her finances; her late- did, as pt is not very good at math. SW inquired about Rich and Josh. Son stated they are just like [pt]. SW explored. Son stated pt is Autistic and DD, and so are Rich and Josh, though Rich is severe and Josh isn't as bad. Rich is 53 yo and is barman at [employer]; a barman is all he could ever do, said Arvin. Josh is 35 yo and attends a work program. Arvin is 52 yo. SW inquired if anyone sees any Drs. Arvin denied. Arvin then inquired about DC as he and Yane are going on vacation from July 16-July 22. KALEB educated to [facility] insurance with NRD 06/22 and continued stay is not guaranteed with each review; a 3-day notice is given for DC. Estimated LOS is about 2 weeks, thus pt should be home before they go on vacation. Inquired if Arvin had any concerns with pt and siblings being home 'alone' while Arvin and Yane are on vacation, as Yane does not work and is home with the siblings. Arvin replied, no. SW explained POC meeting and scheduled for 06/24, and that will provide further update on pt's progress. SW offered for son to contact this worker with any questions or concerns. Son appreciative. Rosalia Rocha DIRECTOR OF DIGITAL TECHNOLOGY DUMP TRUCK DRIVER
[2024-06-19] MEDS: Polyethylene Glycol 3350 17 GM PACKET PO (14:19)
[2024-06-19] MEDS: Magnesium Citrate 300 ML PO (15:47)
[2024-06-19 16:41] LABS: Bedside Glucose 143 mg/dL (74-106)
[2024-06-19] MEDS: Insulin Lispro 100 UNIT/ML INSULN.PEN SC (17:50)
[2024-06-19] MEDS: Ferrous Gluconate 324 MG Tablet PO (17:50)
[2024-06-19] MEDS: Rivaroxaban 15 MG Tablet PO (17:51)
[2024-06-19] MEDS: MELATONIN 3 MG TABLET PO (20:58)
[2024-06-19] MEDS: Senna/Docusate Sodium 1 Tablet 2 TABLET PO (20:59)
[2024-06-19] MEDS: Atorvastatin Calcium 40 MG Tablet PO (21:00)
[2024-06-19] MEDS: Insulin Glargine-YFGN 100 UNIT/ML Pen 15 UNIT SC (21:08)
[2024-06-19 21:29] LABS: Bedside Glucose 146 mg/dL (74-106)
[2024-06-20] MEDS: Methocarbamol 500 MG Tablet PO (04:32)
[2024-06-20] MEDS: Gabapentin 600 MG Tablet PO ×3 (05:26→21:58)
[2024-06-20] MEDS: Acetaminophen 325 MG Tablet 650 MG PO ×3 (05:27→21:58)
[2024-06-20 06:28] LABS: Bedside Glucose 132 mg/dL (74-106)
[2024-06-20 08:03] VITALS: BP 105/62; PULSE 81; RESP 16; TEMP 36.3; O2SAT 96
[2024-06-20] MEDS: Insulin Lispro 100 UNIT/ML INSULN.PEN SC ×2 (08:08→12:59)
[2024-06-20] MEDS: Fluticasone/Salmeterol 232-14 Inhaler 1 PUFF INHALATION ×2 (08:09→22:00)
[2024-06-20] MEDS: Pioglitazone Hydrochloride 30 MG Tablet PO (08:09)
[2024-06-20] MEDS: Ferrous Gluconate 324 MG Tablet PO ×2 (08:09→17:44)
[2024-06-20] MEDS: Tolterodine Tartrate 2 MG CAP.SA PO (08:09)
[2024-06-20] MEDS: Citalopram 10 MG Tablet PO (08:09)
[2024-06-20] MEDS: Insulin Glargine-YFGN 100 UNIT/ML Pen 15 UNIT SC ×2 (08:10→21:59)
[2024-06-20] MEDS: Polyethylene Glycol 3350 17 GM PACKET PO (08:10)
[2024-06-20] MEDS: Ascorbic Acid 500 MG Tablet PO (08:11)
[2024-06-20] MEDS: Senna/Docusate Sodium 1 Tablet 2 TABLET PO ×2 (08:11→21:54)
[2024-06-20] MEDS: Famotidine 20 MG Tablet PO (08:11)
[2024-06-20 11:54] LABS: Bedside Glucose 144 mg/dL (74-106)
[2024-06-20 16:37] LABS: Bedside Glucose 77 mg/dL (74-106)
[2024-06-20] MEDS: Rivaroxaban 15 MG Tablet PO (17:45)
[2024-06-20] MEDS: Atorvastatin Calcium 40 MG Tablet PO (21:59)
[2024-06-20 22:10] LABS: Bedside Glucose 149 mg/dL (74-106)
[2024-06-21] MEDS: Gabapentin 600 MG Tablet PO ×3 (05:51→21:50)
[2024-06-21] MEDS: Acetaminophen 325 MG Tablet 650 MG PO ×3 (05:51→21:52)
[2024-06-21 06:20] LABS: Bedside Glucose 96 mg/dL (74-106)
[2024-06-21] MEDS: Insulin Lispro 100 UNIT/ML INSULN.PEN SC ×3 (08:20→17:44)
[2024-06-21] MEDS: Insulin Glargine-YFGN 100 UNIT/ML Pen 15 UNIT SC ×2 (08:23→21:48)
[2024-06-21] MEDS: Fluticasone/Salmeterol 232-14 Inhaler 1 PUFF INHALATION ×2 (08:25→21:53)
[2024-06-21] MEDS: Tolterodine Tartrate 2 MG CAP.SA PO (08:26)
[2024-06-21] MEDS: Citalopram 10 MG Tablet PO (08:26)
[2024-06-21] MEDS: Senna/Docusate Sodium 1 Tablet 2 TABLET PO ×2 (08:26→21:51)
[2024-06-21] MEDS: Famotidine 20 MG Tablet PO (08:26)
[2024-06-21] MEDS: Ferrous Gluconate 324 MG Tablet PO ×2 (08:27→16:02)
[2024-06-21] MEDS: Pioglitazone Hydrochloride 30 MG Tablet PO (08:27)
[2024-06-21] MEDS: Polyethylene Glycol 3350 17 GM PACKET PO (08:27)
[2024-06-21] MEDS: Ascorbic Acid 500 MG Tablet PO (08:27)
[2024-06-21 11:36] LABS: Bedside Glucose 117 mg/dL (74-106)
[2024-06-21 13:25] VITALS: BP 116/74; PULSE 99; RESP 16; TEMP 36.7; O2SAT 98
[2024-06-21] MEDS: HYDROcodone Bitartrate/Apap 5/325 Tablet PO (15:47)
[2024-06-21] MEDS: Rivaroxaban 15 MG Tablet PO (16:01)
[2024-06-21 16:37] LABS: Bedside Glucose 160 mg/dL (74-106)
[2024-06-21 21:44] LABS: Bedside Glucose 124 mg/dL (74-106)
[2024-06-21] MEDS: Atorvastatin Calcium 40 MG Tablet PO (21:51)
[2024-06-22] MEDS: Acetaminophen 325 MG Tablet 650 MG PO (05:29)
[2024-06-22] MEDS: Gabapentin 600 MG Tablet PO ×3 (05:29→21:17)
[2024-06-22 06:16] LABS: Bedside Glucose 100 mg/dL (74-106)
--- NOTE | 2024-06-22 08:30 | NURSING ---
Actuarial Assistant Note; MDS for 06/22/2024 Complete
[2024-06-22 08:31] LABS: Absolute Lymphocyte Count 1.49 X10^3/uL (0.83-4.51); Basophil# 0.01 X10^3/uL; Basophil% 0.2 % (0-1); Eosinophil# 0.25 X10^3/uL; Eosinophils% 4.7 % (0-5); Hematocrit 30.4 % (37-47); Hemoglobin 9.7 g/dL (12.0-15.0); Lymphocyte # 1.49 X10^3/ul (0.83-4.51); Lymphocyte % 27.9 % (19-41); Mean Corp Hgb Conc 31.9 g/dL (32-36); Mean Corpuscular Hgb 31.5 pg (27.0-32.0); Mean Corpuscular Volume 98.7 fL (81-99); Mean Platelet Vol. 8.6 fl (6.2-12.0); Monocyte# 0.53 X10^3/uL; Monocyte% 9.9 % (0-10); NRBC Flagged by Analyzer 0 % (0-5); Neutrophil # 3.02 X10^3/uL (2.7-7.7); Neutrophil % 56.6 % (47-70); Platelet Count 251 K/mm3 (150-450); RBC Distribution Width CV 14.9 % (11.6-14.6); RBC Distribution Width SD 53.9 fl (35.1-43.9); Red Blood Count 3.08 M/mm3 (4.2-5.4); White Blood Count 5.3 K/mm3 (4.4-11.0)
[2024-06-22 08:32] VITALS: BP 133/74; PULSE 76; RESP 16; TEMP 36.6; O2SAT 96
[2024-06-22] MEDS: Tolterodine Tartrate 2 MG CAP.SA PO (08:43)
[2024-06-22] MEDS: Citalopram 10 MG Tablet PO (08:43)
[2024-06-22] MEDS: Pioglitazone Hydrochloride 30 MG Tablet PO (08:43)
[2024-06-22] MEDS: Ferrous Gluconate 324 MG Tablet PO ×2 (08:43→16:23)
[2024-06-22] MEDS: Fluticasone/Salmeterol 232-14 Inhaler 1 PUFF INHALATION ×2 (08:44→21:16)
[2024-06-22] MEDS: Polyethylene Glycol 3350 17 GM PACKET PO (08:45)
[2024-06-22] MEDS: Insulin Glargine-YFGN 100 UNIT/ML Pen 10 UNIT SC ×2 (08:45→21:17)
[2024-06-22] MEDS: Senna/Docusate Sodium 1 Tablet 2 TABLET PO ×2 (08:45→21:17)
[2024-06-22] MEDS: Pantoprazole Sodium 40 MG Tablet PO ×2 (08:45→21:17)
[2024-06-22] MEDS: Insulin Lispro 100 UNIT/ML INSULN.PEN SC ×2 (08:46→16:23)
[2024-06-22] MEDS: Ascorbic Acid 500 MG Tablet PO (08:47)
[2024-06-22 11:21] LABS: Bedside Glucose 62 mg/dL (74-106)
[2024-06-22 11:58] LABS: Bedside Glucose 98 mg/dL (74-106)
--- NOTE | 2024-06-22 12:08 | NURSING ---
Offered covid vaccine, VIS provided. Resident declines at this time.
[2024-06-22] MEDS: HYDROcodone Bitartrate/Apap 5/325 Tablet PO ×2 (12:30→21:25)
[2024-06-22] MEDS: Rivaroxaban 15 MG Tablet PO (16:23)
[2024-06-22 16:43] LABS: Bedside Glucose 142 mg/dL (74-106)
[2024-06-22] MEDS: Atorvastatin Calcium 40 MG Tablet PO (21:18)
[2024-06-22 21:50] LABS: Bedside Glucose 162 mg/dL (74-106)
[2024-06-23] MEDS: Acetaminophen 325 MG Tablet 650 MG PO ×2 (05:20→13:07)
[2024-06-23] MEDS: Gabapentin 600 MG Tablet PO ×3 (05:21→22:01)
[2024-06-23 05:35] LABS: Absolute Lymphocyte Count 1.54 X10^3/uL (0.83-4.51); Absolute Neutrophil Count 2.6 X10^3/uL (2.0-7.7); Basophil# 0.02 X10^3/uL; Basophil% 0.4 % (0-1); Eosinophil# 0.24 X10^3/uL; Eosinophils% 4.9 % (0-5); Hematocrit 28.6 % (37-47); Hemoglobin 9.2 g/dL (12.0-15.0); Lymphocyte # 1.54 X10^3/ul (0.83-4.51); Lymphocyte % 31.2 % (19-41); Mean Corp Hgb Conc 32.2 g/dL (32-36); Mean Corpuscular Hgb 31.1 pg (27.0-32.0); Mean Corpuscular Volume 96.6 fL (81-99); Mean Platelet Vol. 8.9 fl (6.2-12.0); Monocyte# 0.53 X10^3/uL; Monocyte% 10.8 % (0-10); NRBC Flagged by Analyzer 0 % (0-5); Neutrophil # 2.56 X10^3/uL (2.7-7.7); Neutrophil % 51.9 % (47-70); Platelet Count 261 K/mm3 (150-450); RBC Distribution Width CV 14.7 % (11.6-14.6); RBC Distribution Width SD 52.4 fl (35.1-43.9); Red Blood Count 2.96 M/mm3 (4.2-5.4); White Blood Count 4.9 K/mm3 (4.4-11.0)
[2024-06-23 06:06] LABS: Anion Gap 8 (5-15); BUN 43 mg/dL (4-19); BUN/Creat Ratio 38.1 RATIO (10-20); Calcium,Total 8.9 mg/dL (7.6-11.0); Carbon Dioxide 23.8 mmol/L (21.0-32.0); Chloride 107 mmol/L (98-108); Creatinine, Serum 1.14 mg/dL (0.70-1.20); EST Glomerular Filtration Rate 51 (>60); Estimated Creatinine Clearance 41.92 ml/min (50-250); Glucose 142 mg/dL (70-99); Sodium Level 140 mmol/L (133-145)
[2024-06-23 06:45] LABS: Bedside Glucose 135 mg/dL (74-106)
[2024-06-23 08:09] VITALS: BP 112/77; PULSE 90; RESP 17; O2SAT 98
[2024-06-23] MEDS: Insulin Lispro 100 UNIT/ML INSULN.PEN SC ×3 (08:11→17:44)
[2024-06-23] MEDS: Citalopram 10 MG Tablet PO (08:12)
[2024-06-23] MEDS: Pioglitazone Hydrochloride 30 MG Tablet PO (08:12)
[2024-06-23] MEDS: Tolterodine Tartrate 2 MG CAP.SA PO (08:12)
[2024-06-23] MEDS: Fluticasone/Salmeterol 232-14 Inhaler 1 PUFF INHALATION ×2 (08:12→22:00)
[2024-06-23] MEDS: Ferrous Gluconate 324 MG Tablet PO ×2 (08:12→17:44)
[2024-06-23] MEDS: Insulin Glargine-YFGN 100 UNIT/ML Pen 10 UNIT SC ×2 (08:13→22:03)
[2024-06-23] MEDS: Senna/Docusate Sodium 1 Tablet 2 TABLET PO ×2 (08:13→22:05)
[2024-06-23] MEDS: Pantoprazole Sodium 40 MG Tablet PO ×2 (08:13→22:04)
[2024-06-23] MEDS: Polyethylene Glycol 3350 17 GM PACKET PO (08:13)
[2024-06-23] MEDS: Ascorbic Acid 500 MG Tablet PO (08:14)
[2024-06-23] MEDS: Tuberculin,Purif.prot.deriv. 50 TU/ML Vial 0.1 ML ID (09:46)
[2024-06-23 10:41] VITALS: BMI 33.0
[2024-06-23 11:28] LABS: Bedside Glucose 151 mg/dL (74-106)
[2024-06-23 16:55] LABS: Bedside Glucose 118 mg/dL (74-106)
[2024-06-23 16:59] VITALS: TEMP 36.2
[2024-06-23] MEDS: Rivaroxaban 15 MG Tablet PO (17:44)
[2024-06-23 21:31] LABS: Bedside Glucose 154 mg/dL (74-106)
[2024-06-23] MEDS: HYDROcodone Bitartrate/Apap 5/325 Tablet PO (22:01)
[2024-06-23] MEDS: Atorvastatin Calcium 40 MG Tablet PO (22:02)
[2024-06-24] MEDS: Acetaminophen 325 MG Tablet 650 MG PO ×3 (05:25→22:46)
[2024-06-24] MEDS: Gabapentin 600 MG Tablet PO ×3 (05:25→22:46)
[2024-06-24 06:31] LABS: Bedside Glucose 100 mg/dL (74-106)
[2024-06-24] MEDS: Tolterodine Tartrate 2 MG CAP.SA PO (07:56)
[2024-06-24] MEDS: Ferrous Gluconate 324 MG Tablet PO ×2 (07:56→17:19)
[2024-06-24] MEDS: Pioglitazone Hydrochloride 30 MG Tablet PO (07:56)
[2024-06-24] MEDS: Citalopram 10 MG Tablet PO (07:57)
[2024-06-24] MEDS: Insulin Glargine-YFGN 100 UNIT/ML Pen 10 UNIT SC ×2 (07:58→22:46)
[2024-06-24] MEDS: Polyethylene Glycol 3350 17 GM PACKET PO (07:59)
[2024-06-24] MEDS: Pantoprazole Sodium 40 MG Tablet PO ×2 (07:59→22:45)
[2024-06-24] MEDS: Insulin Lispro 100 UNIT/ML INSULN.PEN SC ×3 (08:00→17:20)
[2024-06-24] MEDS: Ascorbic Acid 500 MG Tablet PO (08:00)
[2024-06-24] MEDS: Fluticasone/Salmeterol 232-14 Inhaler 1 PUFF INHALATION ×2 (08:01→22:46)
[2024-06-24 11:38] LABS: Bedside Glucose 162 mg/dL (74-106)
--- NOTE | 2024-06-24 12:01 | CASEMGMT ---
Social Work IDT met with patient, son Avrin, and Yane WOLFE for care plan meeting. Discussed patient's progress in PT/OT/ST/SN. Educated to [facility] insurance with NRD 06/29 and continued stay is not guaranteed with each review. Provided pt/family with written communication of insurance process and copay coverage during stay. ST recommending 24/7 supervision d/t testing outcomes and poor cognition/abilities to manage finances/meds. Pt does live with family and AIDEN is home most hours of the day while Arvin is working. However, Arvin stated he and Yane are going on vacation for a week at the end of the month. SW discussed having assistance for pt during the time son/AIDEN are on vacation. Arvin stated Josh does IADLs, but that he attends workshop M-F during the day. SW noted pt would then be home alone with Vivek. SW suggested hiring private duty caregivers to check in several hours throughout the day. Also discussed [place]. Family interested. SW inquired about wanting to apply for [facility]. Pt and family agreeable. SW was clear about ATA estate recovery. Yane was hesitant about losing the sale money from the house, but son and pt agreed to apply. SW educated to referral to [facility] and contacting Arvin. SW to also make referral to [facility] Care Coordination program to assist with additional resources. SW did provide son with resources for medical alert, [facility], [place], private duty caregivers and care coordination program. Son appreciative. - SW sent referral to [facility]. SW completed referral to Care Coordination online Rosalia Rocha [employer] ANIMAL CARE INSTRUCTION DEAN
[2024-06-24 16:00] VITALS: BP 103/75; PULSE 97; RESP 16; TEMP 36.4; O2SAT 98
[2024-06-24 16:53] LABS: Bedside Glucose 144 mg/dL (74-106)
[2024-06-24] MEDS: Rivaroxaban 15 MG Tablet PO (17:19)
[2024-06-24 20:00] VITALS: PULSE 90; O2SAT 96
[2024-06-24 22:18] LABS: Bedside Glucose 153 mg/dL (74-106)
[2024-06-24] MEDS: Senna/Docusate Sodium 1 Tablet 2 TABLET PO (22:46)
[2024-06-24] MEDS: Atorvastatin Calcium 40 MG Tablet PO (22:46)
[2024-06-25] MEDS: Gabapentin 600 MG Tablet PO ×3 (06:04→22:44)
[2024-06-25] MEDS: Acetaminophen 325 MG Tablet 650 MG PO ×3 (06:04→22:47)
[2024-06-25 06:33] LABS: Bedside Glucose 109 mg/dL (74-106)
[2024-06-25 06:41] VITALS: PULSE 86; O2SAT 95
[2024-06-25 07:01] VITALS: O2SAT 94
[2024-06-25 07:50] VITALS: BP 133/82; PULSE 83; RESP 16; TEMP 36.7; O2SAT 97
[2024-06-25] MEDS: Insulin Lispro 100 UNIT/ML INSULN.PEN SC ×3 (07:52→17:51)
[2024-06-25] MEDS: Ferrous Gluconate 324 MG Tablet PO ×2 (07:53→17:51)
[2024-06-25] MEDS: Pioglitazone Hydrochloride 30 MG Tablet PO (07:53)
[2024-06-25] MEDS: Tolterodine Tartrate 2 MG CAP.SA PO (07:53)
[2024-06-25] MEDS: Ascorbic Acid 500 MG Tablet PO (07:54)
[2024-06-25] MEDS: Pantoprazole Sodium 40 MG Tablet PO ×2 (07:54→22:46)
[2024-06-25] MEDS: Senna/Docusate Sodium 1 Tablet 2 TABLET PO ×2 (07:54→22:46)
[2024-06-25] MEDS: Polyethylene Glycol 3350 17 GM PACKET PO (07:54)
[2024-06-25] MEDS: Insulin Glargine-YFGN 100 UNIT/ML Pen 10 UNIT SC ×2 (07:54→22:48)
[2024-06-25] MEDS: Fluticasone/Salmeterol 232-14 Inhaler 1 PUFF INHALATION ×2 (07:55→22:44)
[2024-06-25] MEDS: Citalopram 10 MG Tablet PO (09:27)
--- NOTE | 2024-06-25 10:07 | MDS.RN ---
Information for the MDS was obtained from review of the clinical record, interview of resident, staff, and direct observation of resident?s care.
[2024-06-25 11:30] LABS: Bedside Glucose 97 mg/dL (74-106)
--- NOTE | 2024-06-25 14:52 | CASEMGMT ---
Social Work Kendra from [facility] spoke with pt's son, Arvin, and completed Medicaid application. Kendra reported Arvin was very cooperative and willing to help. Arvin provided all needed documents for ATA same day. Arvin also provided advance directives. KALEB placed copies on chart. Arvin is primary HCPOA and Josh is secondary POA. Rosalia Rocha DIE MAKER APPRENTICE COUNTRY MANAGER
[2024-06-25 16:39] LABS: Bedside Glucose 106 mg/dL (74-106)
[2024-06-25] MEDS: Rivaroxaban 15 MG Tablet PO (17:51)
[2024-06-25 21:45] LABS: Bedside Glucose 136 mg/dL (74-106)
[2024-06-25] MEDS: Atorvastatin Calcium 40 MG Tablet PO (22:45)
[2024-06-26] MEDS: Gabapentin 600 MG Tablet PO ×3 (06:11→21:02)
[2024-06-26] MEDS: Acetaminophen 325 MG Tablet 650 MG PO ×3 (06:11→20:58)
[2024-06-26 06:29] LABS: Bedside Glucose 96 mg/dL (74-106)
[2024-06-26] MEDS: Ferrous Gluconate 324 MG Tablet PO ×2 (08:20→17:14)
[2024-06-26] MEDS: Pioglitazone Hydrochloride 30 MG Tablet PO (08:21)
[2024-06-26] MEDS: Citalopram 10 MG Tablet PO (08:21)
[2024-06-26] MEDS: Tolterodine Tartrate 2 MG CAP.SA PO (08:21)
[2024-06-26] MEDS: Insulin Glargine-YFGN 100 UNIT/ML Pen 10 UNIT SC ×2 (08:22→20:55)
[2024-06-26] MEDS: Polyethylene Glycol 3350 17 GM PACKET PO (08:22)
[2024-06-26] MEDS: Fluticasone/Salmeterol 232-14 Inhaler 1 PUFF INHALATION ×2 (08:22→20:55)
[2024-06-26] MEDS: Senna/Docusate Sodium 1 Tablet 2 TABLET PO ×2 (08:23→20:57)
[2024-06-26] MEDS: Pantoprazole Sodium 40 MG Tablet PO ×2 (08:23→20:57)
[2024-06-26] MEDS: Ascorbic Acid 500 MG Tablet PO (08:23)
--- NOTE | 2024-06-26 09:50 | RAD_ITS ---
PROCEDURE: HIP, UNI W/ PELVIS 2-3 VIEWS 06/26/2024 REASON FOR EXAM: POST ORIF TECHNIQUE: AP pelvis and two views right hip, 3 total images FINDINGS: No fracture or dislocation. Status post right hip replacement appears intact and anatomic. Partially imaged lower lumbar hardware. Symmetric appearing SI joints and pubic symphysis appear within limits. Vascular calcifications noted. Partially imaged retrograde intramedullary right femoral nail. RAD/HIP, UNI W/ Pelvis 2-3 Views IMPRESSION: No fracture or dislocation. Status post right hip replacement appears intact an d anatomic. Reading Location: [id number]
[2024-06-26 11:57] LABS: Bedside Glucose 116 mg/dL (74-106)
[2024-06-26 16:00] VITALS: BP 135/78; PULSE 72; RESP 16; TEMP 36.9; O2SAT 97
--- NOTE | 2024-06-26 16:16 | NURSING ---
Returns from ortho appt. Gamerco were removed. NNO.
[2024-06-26 16:44] LABS: Bedside Glucose 161 mg/dL (74-106)
[2024-06-26] MEDS: Rivaroxaban 15 MG Tablet PO (17:14)
[2024-06-26] MEDS: Atorvastatin Calcium 40 MG Tablet PO (20:57)
[2024-06-26] MEDS: HYDROcodone Bitartrate/Apap 5/325 Tablet PO (21:01)
[2024-06-26 21:25] LABS: Bedside Glucose 128 mg/dL (74-106)
[2024-06-26] MEDS: MELATONIN 3 MG TABLET PO (22:25)
[2024-06-27] MEDS: Acetaminophen 325 MG Tablet 650 MG PO ×3 (05:36→21:08)
[2024-06-27] MEDS: Gabapentin 600 MG Tablet PO ×3 (05:36→21:03)
[2024-06-27 06:20] LABS: Bedside Glucose 111 mg/dL (74-106)
[2024-06-27] MEDS: Citalopram 10 MG Tablet PO (08:03)
[2024-06-27] MEDS: Pioglitazone Hydrochloride 30 MG Tablet PO (08:03)
[2024-06-27] MEDS: Ferrous Gluconate 324 MG Tablet PO ×2 (08:03→17:47)
[2024-06-27] MEDS: Insulin Glargine-YFGN 100 UNIT/ML Pen 10 UNIT SC ×2 (08:04→21:04)
[2024-06-27] MEDS: Tolterodine Tartrate 2 MG CAP.SA PO (08:04)
[2024-06-27] MEDS: Fluticasone/Salmeterol 232-14 Inhaler 1 PUFF INHALATION ×2 (08:04→21:04)
[2024-06-27] MEDS: Polyethylene Glycol 3350 17 GM PACKET PO (08:07)
[2024-06-27] MEDS: Ascorbic Acid 500 MG Tablet PO (08:07)
[2024-06-27] MEDS: Pantoprazole Sodium 40 MG Tablet PO ×2 (08:07→21:07)
[2024-06-27] MEDS: Senna/Docusate Sodium 1 Tablet 2 TABLET PO ×2 (08:07→21:07)
[2024-06-27 10:30] VITALS: BP 114/69; PULSE 87; RESP 18; TEMP 36.4; O2SAT 98
[2024-06-27 11:55] LABS: Bedside Glucose 73 mg/dL (74-106)
[2024-06-27 16:30] LABS: Bedside Glucose 132 mg/dL (74-106)
[2024-06-27] MEDS: Rivaroxaban 15 MG Tablet PO (17:47)
[2024-06-27] MEDS: Atorvastatin Calcium 40 MG Tablet PO (21:07)
[2024-06-27 21:21] LABS: Bedside Glucose 171 mg/dL (74-106)
[2024-06-27] MEDS: MELATONIN 3 MG TABLET PO (22:36)
[2024-06-28] MEDS: Gabapentin 600 MG Tablet PO ×3 (06:11→20:59)
[2024-06-28] MEDS: Acetaminophen 325 MG Tablet 650 MG PO ×3 (06:11→21:01)
[2024-06-28 06:28] LABS: Bedside Glucose 115 mg/dL (74-106)
[2024-06-28] MEDS: Pioglitazone Hydrochloride 30 MG Tablet PO (08:33)
[2024-06-28] MEDS: Ferrous Gluconate 324 MG Tablet PO ×2 (08:33→16:31)
[2024-06-28] MEDS: Tolterodine Tartrate 2 MG CAP.SA PO (08:34)
[2024-06-28] MEDS: Citalopram 10 MG Tablet PO (08:34)
[2024-06-28] MEDS: Fluticasone/Salmeterol 232-14 Inhaler 1 PUFF INHALATION ×2 (08:35→21:02)
[2024-06-28] MEDS: Pantoprazole Sodium 40 MG Tablet PO ×2 (08:36→21:00)
[2024-06-28] MEDS: Senna/Docusate Sodium 1 Tablet 2 TABLET PO ×2 (08:36→21:00)
[2024-06-28] MEDS: Ascorbic Acid 500 MG Tablet PO (08:37)
[2024-06-28 08:47] VITALS: BP 116/73; PULSE 89; RESP 18; TEMP 36.8; O2SAT 98
[2024-06-28] MEDS: Insulin Glargine-YFGN 100 UNIT/ML Pen 10 UNIT SC ×2 (09:36→21:02)
[2024-06-28 11:23] LABS: Bedside Glucose 126 mg/dL (74-106)
[2024-06-28] MEDS: Rivaroxaban 15 MG Tablet PO (16:31)
[2024-06-28 16:39] LABS: Bedside Glucose 105 mg/dL (74-106)
[2024-06-28] MEDS: Atorvastatin Calcium 40 MG Tablet PO (21:00)
[2024-06-28 21:38] LABS: Bedside Glucose 198 mg/dL (74-106)
[2024-06-29] MEDS: Methocarbamol 500 MG Tablet PO (00:45)
[2024-06-29 06:30] LABS: Bedside Glucose 97 mg/dL (74-106)
[2024-06-29] MEDS: Gabapentin 600 MG Tablet PO ×3 (06:49→21:24)
[2024-06-29] MEDS: Acetaminophen 325 MG Tablet 650 MG PO ×3 (06:50→21:21)
--- NOTE | 2024-06-29 09:19 | CASEMGMT ---
Social Work Received Medicaid pending . Rosalia Rocha AREA LOSS PREVENTION MANAGER TECHNICAL DESIGNER
--- NOTE | 2024-06-29 09:24 | NURSING ---
Left VM with [facility] to clarify weight bearing status after appt with Dr. Shannon on Saturday. Await return call.
[2024-06-29] MEDS: Pantoprazole Sodium 40 MG Tablet PO ×2 (09:32→21:20)
[2024-06-29] MEDS: Ferrous Gluconate 324 MG Tablet PO ×2 (09:32→18:11)
[2024-06-29] MEDS: Pioglitazone Hydrochloride 30 MG Tablet PO (09:32)
[2024-06-29] MEDS: Ascorbic Acid 500 MG Tablet PO (09:32)
[2024-06-29] MEDS: Citalopram 10 MG Tablet PO (09:32)
[2024-06-29] MEDS: Tolterodine Tartrate 2 MG CAP.SA PO (09:32)
[2024-06-29] MEDS: Senna/Docusate Sodium 1 Tablet 2 TABLET PO ×2 (09:33→21:21)
[2024-06-29] MEDS: Insulin Glargine-YFGN 100 UNIT/ML Pen 10 UNIT SC ×2 (09:33→21:58)
[2024-06-29] MEDS: Fluticasone/Salmeterol 232-14 Inhaler 1 PUFF INHALATION ×2 (09:34→21:18)
[2024-06-29 11:25] LABS: Bedside Glucose 156 mg/dL (74-106)
[2024-06-29 12:54] VITALS: BP 118/60; PULSE 88; RESP 17; TEMP 36.6; O2SAT 97
[2024-06-29 16:30] LABS: Bedside Glucose 120 mg/dL (74-106)
[2024-06-29] MEDS: Rivaroxaban 15 MG Tablet PO (18:11)
--- NOTE | 2024-06-29 21:00 | NURSING ---
Patient reports bruise to right forearm, dark purple ecchymotic area noted to right forearm below elbow, area slightly raised, warm, dry, patient states she is unsure how she got the bruise. patient denies any needs at time.
[2024-06-29] MEDS: Atorvastatin Calcium 40 MG Tablet PO (21:20)
[2024-06-29 21:59] LABS: Bedside Glucose 190 mg/dL (74-106)
[2024-06-30] MEDS: Methocarbamol 500 MG Tablet PO ×2 (00:03→23:49)
[2024-06-30 05:20] LABS: Basophil# 0.01 X10^3/uL; Basophil% 0.2 % (0-1); Eosinophil# 0.18 X10^3/uL; Eosinophils% 4.2 % (0-5); Hemoglobin 9.1 g/dL (12.0-15.0); Lymphocyte % 37.5 % (19-41); Mean Corp Hgb Conc 31.4 g/dL (32-36); Mean Corpuscular Hgb 30.8 pg (27.0-32.0); Mean Corpuscular Volume 98.3 fL (81-99); Mean Platelet Vol. 8.7 fl (6.2-12.0); Monocyte% 11.7 % (0-10); NRBC Flagged by Analyzer 0 % (0-5); Neutrophil # 1.95 X10^3/uL (2.7-7.7); Neutrophil % 45.7 % (47-70); Platelet Count 242 K/mm3 (150-450); RBC Distribution Width SD 50.4 fl (35.1-43.9); Red Blood Count 2.95 M/mm3 (4.2-5.4); White Blood Count 4.3 K/mm3 (4.4-11.0)
[2024-06-30] MEDS: Gabapentin 600 MG Tablet PO ×3 (05:26→22:24)
[2024-06-30] MEDS: Acetaminophen 325 MG Tablet 650 MG PO ×3 (05:27→22:25)
[2024-06-30 06:05] LABS: Anion Gap 8 (5-15); BUN 39 mg/dL (4-19); Calcium,Total 9.4 mg/dL (7.6-11.0); Carbon Dioxide 25.6 mmol/L (21.0-32.0); Chloride 107 mmol/L (98-108); Creatinine, Serum 1.09 mg/dL (0.70-1.20); EST Glomerular Filtration Rate 54 (>60); Glucose 88 mg/dL (70-99); Potassium 5.2 mmol/L (3.3-5.1); Sodium Level 141 mmol/L (133-145)
--- NOTE | 2024-06-30 06:05 | NURSING ---
Patient AM fasting blood sugar is 74, no c/o hypoglycemia s/sx, patient refused juice or crackers offered, states I'm going back to sleep, Dr. Kellogg updated via written communication.
[2024-06-30 06:25] LABS: Bedside Glucose 74 mg/dL (74-106)
[2024-06-30] MEDS: Ferrous Gluconate 324 MG Tablet PO ×2 (09:15→17:35)
[2024-06-30] MEDS: Citalopram 10 MG Tablet PO (09:15)
[2024-06-30] MEDS: Pioglitazone Hydrochloride 30 MG Tablet PO (09:15)
[2024-06-30] MEDS: Senna/Docusate Sodium 1 Tablet 2 TABLET PO ×2 (09:16→22:26)
[2024-06-30] MEDS: Ascorbic Acid 500 MG Tablet PO (09:16)
[2024-06-30] MEDS: Pantoprazole Sodium 40 MG Tablet PO ×2 (09:16→22:26)
[2024-06-30] MEDS: Tolterodine Tartrate 2 MG CAP.SA PO (09:16)
[2024-06-30] MEDS: Insulin Glargine-YFGN 100 UNIT/ML Pen 15 UNIT SC (10:00)
[2024-06-30] MEDS: Fluticasone/Salmeterol 232-14 Inhaler 1 PUFF INHALATION ×2 (10:01→22:24)
[2024-06-30] MEDS: Sodium Polystyrene Sulfonate 15 GM/60 ML UDC 30 GM PO (12:08)
--- NOTE | 2024-06-30 12:51 | CASEMGMT ---
Social Work Insurance issued LCD 07/02, DC 07/03 SW phoned son, Arvin, to notify about DC date. SW to issue NOMNC to pt, but verbally explained appeal rights. Son denied appeal and agreeable for DC home. SW discussed pt's LOC at [facility] and IDT is agreeable for pt to DC home, though with continued 24/7 supervision, especially with med management and finances. SW discussed options for pt to have care during Arvin's vacation at the end of June - [place] during the week days, or since pt has received pending ATA, she could qualify for a respite stay under ATA at a SNF. Son stated he has been speaking to pt's sister for assistance. SW offered to discuss respite stay further, if interested. Also, discussed having SW involved for HHC to continue assisting with ATA and resources in the home. Son agreed to HHC. SW sent son list of skilled HHC agencies within geographical area, INN with insurance, that include quality and resource data via [employer] text link. [facility]. SW educated HHC agency will contact pt for SOC date date, but typically 2-3 days after DC, pending PCP signing orders. Educated to insurance authorizing the frequency and duration of services after first evaluations from all disciplines. Son expressed understanding and appreciative of assistance. Son can transport pt after work about 1600. Son denied pt having DME needs - pt owns FWW and rollator. SW educated to [facility] recommending purchase of hip kit - resources left in pt's room for reference. - SW spoke with pt. Issued NOMNC and explained appeal rights. Pt denied appeal and agreeable to DC home. Discussed safety at home and pt voiced wanting to return home. Pt agreed to [facility] services. - KALEB phoned referral to [facility] for PT/OT/SN/SW. Plan: DC home with family 5/6, [facility] PT/OT/SN/KALEB Rocha CHURNER HAND STONECUTTER
[2024-06-30 13:46] VITALS: BMI 33.1
[2024-06-30 15:03] VITALS: BP 121/66; PULSE 96; RESP 16; TEMP 36.6; O2SAT 97
[2024-06-30] MEDS: Rivaroxaban 15 MG Tablet PO (17:36)
--- NOTE | 2024-06-30 20:17 | DS.PCM_ITS ---
Providers Date of Admission: 06/15/24 Primary Care Physician: Dr. Quentin Kellogg MD Consultations 06/16/24 17:23 Consult: Gastroenterology Routine Consulting Provider: [facility] Reason for Consult: Anemia, +hemoccult. EMERGENT Consult: No MD Notified: Yes Date Notified: 06/17/24 Time Notified: 09:01 Method of Notification: Text Reason For Visit: R FEMUR FRACTURE Diagnosis Discharge Diagnosis (1) Iron deficiency anemia: Status: Acute Code(s): D50.9 - Iron deficiency anemia, unspecified Plan 73 year old female with below past medical history hospitalized for right distal spiral femur fracture, underwent ORIF right distal femur fracture, intramedullary nail retrograde, cerclage wires 06/11/[address] Sivakumar Shannon, admitted to TCU with debility, here for rehabiltation, strengthening, prior to discharge home with family. * Debility - PT/OT. * Pain - Tylenol 650mg q8, [place] 5/325mg 2 tabs q6 prn. * Bowel - Miralax 17gm daily, senna/colace 2 tablets bid. * Adult immunization - Administer pneumonia vaccine, covid vaccine, flu vaccine as appropriate * DVT prophylaxis - on Xarelto. * COPD - Fluticasone/Salmeterol 232-14 1 puff q12, Albuterol 2.5mg neb q4 prn. * Atrial fibrillation - Xarelto 15mg daily. * Overactive bladder - Tolterodine 2mg daily. * Iron deficiency anemia - Iron 325mg bidcm, Vitamin C 500mg daily. * Hyperlipidemia - Atorvastatin 40mg qhs. 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 * GERD - Famotidine 40mg daily, Mylanta 30mL q6 prn. * Diabetes Mellitus II - Zain 30mg daily. * Diabetic polyneuropathy - Gabapentin 600mg tid. * Allergic rhinitis - Loratadine 10mg daily prn. * Insomnia - Melatonin 3mg qhs prn. * Muscle spasm - Robaxin 250mg to 500g bid prn. Medications at Discharge Home Medications fluticasone 100 mcg-salmeterol 50 mcg/dose blistr powdr for inhalation 1 puff inhalation BID asthma 01/29/13 ferrous gluconate 324 mg (37.5 mg iron) tablet 325 mg PO BID iron 05/29/18 albuterol sulfate 90 mcg/actuation aerosol inhaler 2 puff inhalation 4X/DAY PRN asthma 12/05/21 cetirizine 10 mg tablet 10 mg PO DAILY PRN allergy symptoms 06/21/22 gabapentin 600 mg tablet 600 mg PO TID neuropathy 06/21/22 pioglitazone 30 mg tablet 30 mg PO DAILY diabetes 06/21/22 rivaroxaban 15 mg tablet (Xarelto) 15 mg PO DAILY blood thinner #90 tabs 12/19/22 atorvastatin 40 mg tablet 40 mg PO DAILY cholesterol #90 tabs 04/07/24 solifenacin 5 mg tablet 5 mg PO QDAY overactive bladder 05/27/24 ascorbic acid (vitamin C) 500 mg tablet 500 mg PO DAILY supplement 06/09/24 citalopram 10 mg tablet 10 mg PO DAILY mood 06/09/24 methocarbamol 500 mg tablet 250 - 500 mg PO BID PRN PRN muscle spasm 06/09/24 acetaminophen 325 mg tablet 650 mg (2 x 325 mg) PO Q8 #0 tabs 06/30/24 pantoprazole 40 mg tablet,delayed release 40 mg PO BID 30 days #60 tabs 06/30/24 Hospital Course Operations - (See below.) Procedures None Summary of Care Provided Minutes Spent on Discharge: 35 Hospital Course: 73 year old female with below past medical history hospitalized for right distal spiral femur fracture, underwent ORIF right distal femur fracture, intramedullary nail retrograde, cerclage wires 06/11/[address] Sivakumar Shannon, admitted to TCU with debility, here for rehabiltation, strengthening, prior to discharge home with family. 06/19/2024 Dr. Sher EGD: Impressions : - LA Grade D erosive esophagitis with bleeding. Biopsied. Treated with a heater probe. - Non-bleeding gastric ulcer with no stigmata of bleeding. Treated with a heater probe. - No gross lesions in the entire examined duodenum. Recommendations : - [facility]. - Resume previous diet. - Use Protonix (pantoprazole) 40 mg PO BID. - Continue present medications. Discharge home with family 07/03/2024, [facility] PT/OT/SN/SW. Physical Exam Const alert General Appearance: cooperative HEENT normocephalic Eyes PERRL and EOMs intact bilaterally Neck supple, no JVD and no carotid bruits Resp normal respiratory effort, normal air movement and clear to auscultation bilaterally Cardio regular rate and regular rhythm GI normal to inspection, nondistended, normoactive bowel sounds, non-tender and non-distended Extremity normal capillary refill General Extremity: Negative for edema Skin no rashes or lesions noted General Skin Exam: no breakdown Psych affect normal Appearance: appropriate Weight / BMI Weight Weight: 79.515 kg Body Mass Index (BMI) 33.1 ABG / Lab / Microbiology Data 06/30/24 05:02 06/30/24 05:02 Laboratory: Laboratory Results - last 24 hr 06/29/24 21:34: POC Glucose 190 H 06/30/24 05:02: WBC 4.3 L, RBC 2.95 L, Hgb 9.1 L, Hct 29.0 L, MCV 98.3, MCH 30.8, MCHC 31.4 L, RDW Std Deviation 50.4 H, RDW Coeff of [place] 14.0, Plt Count 242, MPV 8.7, Immature Gran % (Auto) 0.700, Neut % (Auto) 45.7 L, Lymph % (Auto) 37.5, [place] % (Auto) 11.7 H, Eos % (Auto) 4.2, Baso % (Auto) 0.2, Absolute Neuts (auto) 2.0, Absolute Lymphs (auto) 1.60, Nucleated RBC % 0, Sodium 141, P otassium 5.2 H, Chloride 107, Carbon Dioxide 25.6, Anion Gap 8, BUN 39 H, Creatinine 1.09, Estim Creat Clear Calc 43.80 L, Est GFR (MDRD) Non-Af 54 L, B UN/Creatinine Ratio 36.0 H, Glucose 88, Calcium 9.4 06/30/24 06:00: POC Glucose 74 Microbiology: Microbiology 06/16/24 16:15 Stool Stool Occult Blood (GILBERT) - Final Occult Blood Positive D/C Instructions Discharge Diet: No restrictions Discharge Activity: Return to Normal Activity, May Shower and Use Walker Weight Bearing Status: Weight bearing as tolerated Call your doctor if you observe: Fever of 101 or Higher, Inability to urinate, Inability to have a bowel movement, Shortness of breath, Dizziness, Fainting spells, Swelling in the ankles, Chest pain and Uncontrolled pain DC O2, CPAP, BIPAP Needs Home O2 Discharge instructions: No Additional Instructions: Discharge home with family 07/03/2024, [facility] PT/OT/SN/SW. Please Follow Up With: Dr. Shannon (Will see Sissy BARLOW) When: As scheduled. Meaningful Use Info Meaningful Use Meaningful Use Diagnoses (Choose all that apply): None applicable Ischemic Stroke Statin Dosing Therapy Reference: STATIN DOSE THERAPY REFERENCE: * Patients > 75 years receive moderate or high dose statin therapy. * Patients 75 years or YOUNGER should receive HIGH intensity statin dose unless contraindicated. You will be required to document reason for non-treatment if statin daily dose does not meet guidelines. HIGH DOSE STATIN THERAPY DAILY Atorvastatin > than or = to 40 mg Rosuvastatin > than or = to 20 mg Amlodipine + Atorvastatin > than or = to 2.5/40 mg Ezetimibe + Simvastatin 10/80 mg Simvastatin 80mg Discharge Plan Admission Admit Date/Time: 06/15/24 13:17 Primary Reason for Your Visit: Debility Attending Provider: Quentin Kellogg Chi Primary Care Provider: Quentin Kellogg Chi Instructions Additional Instructions / Restrictions: Discharge home with family 07/03/2024, [facility] PT/OT/SN/SW. Discharge Orders/Prescriptions Prescriptions: New acetaminophen 325 mg Tablet 650 mg PO Q8 Qty: 0 0RF pantoprazole 40 mg Tablet,Delayed Release (Dr/Ec) 40 mg PO BID 30 Days Qty: 60 0RF Continued gabapentin 600 mg tablet 600 mg PO TID cetirizine 10 mg tablet 10 mg PO DAILY PRN (Reason: allergy symptoms) pioglitazone 30 mg tablet 30 mg PO DAILY solifenacin 5 mg tablet 5 mg PO QDAY fluticasone propion-salmeterol 1 PUFF inhaler 1 puff INHALATION BID albuterol sulfate 90 mcg/actuation HFA aerosol inhaler 2 puff inhalation 4X/DAY PRN (Reason: asthma) ferrous gluconate 324 MG tablet 325 mg PO BID methocarbamol 500 mg tablet 250 - 500 mg PO BID PRN PRN (Reason: muscle spasm) citalopram 10 mg tablet 10 mg PO DAILY ascorbic acid (vitamin C) 500 mg tablet 500 mg PO DAILY Xarelto 15 mg tablet 15 mg PO DAILY Qty: 90 3RF Rx Instructions: must administer with evening meal atorvastatin 40 mg tablet 40 mg PO DAILY Qty: 90 3RF Discontinued famotidine 40 mg tablet 40 mg PO DAILY sennosides-docusate sodium 1 TABLET tablet 2 tab PO BID PRN (Reason: Constipation) Rx Instructions: Take until first bowel movement, then as needed acetaminophen 325 mg Tablet 650 mg PO Q8 Qty: 0 0RF hydrocodone-acetaminophen 5-325 mg Tablet 2 tab PO Q6H PRN PRN (Reason: Pain Score 4-10) 1 Days Qty: 3 0RF insulin lispro [Humalog KwikPen Insulin] 100 unit/mL Insulin Pen See Protocol subcut ACHS Qty: 0 0RF Protocol: 4. Sliding Scale Insulin High-Med Dosing Condition: 150-199 mg/dl = 2 units Condition: 200-259 mg/dl = 4 units Condition: 260-324 mg/dl = 6 units Condition: 325-374 mg/dl = 8 units Condition: 375-409 mg/dl = 10 units Condition: 410-449 mg/dl = 11 units Condition: Greater than 449 call physician Protocol Text: Suggested for: - Patients on Total Daily Insulin Dose of 56-80 units - Patient who are known to be insulin resistant or septic HIGH MEDIUM DOSING ALGORITHM melatonin 3 mg Tablet 3 mg PO QHS PRN PRN (Reason: Insomnia) Qty: 0 0RF alum-mag hydroxide-simeth [Mag-Al Plus Extra Strength] 400-400-40 mg/5 mL Suspension 30 ml PO Q6H PRN PRN (Reason: Gastric Burning) Qty: 0 0RF Referrals / Follow Up: Quentin Kellogg Chi, MD [Primary Care Provider] - Disposition Disposition (needs filled in before D/C Order can be placed): Home Health Service
[2024-06-30 21:49] LABS: Bedside Glucose 142 mg/dL (74-106)
[2024-06-30] MEDS: Atorvastatin Calcium 40 MG Tablet PO (22:26)
[2024-07-01] MEDS: Gabapentin 600 MG Tablet PO ×3 (05:19→20:56)
[2024-07-01] MEDS: Acetaminophen 325 MG Tablet 650 MG PO ×3 (05:20→20:56)
[2024-07-01 06:31] LABS: Bedside Glucose 140 mg/dL (74-106)
[2024-07-01 08:15] LABS: Anion Gap 9 (5-15); BUN 36 mg/dL (4-19); Calcium,Total 9.4 mg/dL (7.6-11.0); Carbon Dioxide 25.7 mmol/L (21.0-32.0); Chloride 106 mmol/L (98-108); EST Glomerular Filtration Rate 53 (>60); Estimated Creatinine Clearance 43.49 ml/min (50-250); Glucose 143 mg/dL (70-99); Potassium 4.4 mmol/L (3.3-5.1); Sodium Level 140 mmol/L (133-145)
[2024-07-01] MEDS: Citalopram 10 MG Tablet PO (08:26)
[2024-07-01] MEDS: Senna/Docusate Sodium 1 Tablet 2 TABLET PO ×2 (08:26→20:56)
[2024-07-01] MEDS: Pantoprazole Sodium 40 MG Tablet PO ×2 (08:26→20:56)
[2024-07-01] MEDS: Tolterodine Tartrate 2 MG CAP.SA PO (08:26)
[2024-07-01] MEDS: Ferrous Gluconate 324 MG Tablet PO ×2 (08:26→16:29)
[2024-07-01] MEDS: Fluticasone/Salmeterol 232-14 Inhaler 1 PUFF INHALATION ×2 (08:26→20:56)
[2024-07-01] MEDS: Pioglitazone Hydrochloride 30 MG Tablet PO (08:26)
[2024-07-01] MEDS: Ascorbic Acid 500 MG Tablet PO (08:27)
[2024-07-01] MEDS: Insulin Glargine-YFGN 100 UNIT/ML Pen 15 UNIT SC (08:27)
[2024-07-01 08:31] VITALS: BP 119/65; PULSE 82; RESP 16; TEMP 35.8; O2SAT 99
[2024-07-01] MEDS: Rivaroxaban 15 MG Tablet PO (16:29)
[2024-07-01] MEDS: Atorvastatin Calcium 40 MG Tablet PO (20:56)
[2024-07-01 21:19] LABS: Bedside Glucose 184 mg/dL (74-106)
[2024-07-02] MEDS: MELATONIN 3 MG TABLET PO (00:50)
[2024-07-02] MEDS: Acetaminophen 325 MG Tablet 650 MG PO ×3 (05:20→22:32)
[2024-07-02] MEDS: Gabapentin 600 MG Tablet PO ×3 (05:20→22:30)
[2024-07-02 05:56] LABS: Bedside Glucose 138 mg/dL (74-106)
[2024-07-02] MEDS: Fluticasone/Salmeterol 232-14 Inhaler 1 PUFF INHALATION ×2 (09:02→22:31)
[2024-07-02] MEDS: Pioglitazone Hydrochloride 30 MG Tablet PO (09:02)
[2024-07-02] MEDS: Insulin Glargine-YFGN 100 UNIT/ML Pen 15 UNIT SC (09:02)
[2024-07-02] MEDS: Tolterodine Tartrate 2 MG CAP.SA PO (09:03)
[2024-07-02] MEDS: Ascorbic Acid 500 MG Tablet PO (09:03)
[2024-07-02] MEDS: Pantoprazole Sodium 40 MG Tablet PO ×2 (09:03→22:31)
[2024-07-02] MEDS: Citalopram 10 MG Tablet PO (09:03)
[2024-07-02] MEDS: Ferrous Gluconate 324 MG Tablet PO ×2 (09:03→17:50)
[2024-07-02 10:00] VITALS: RESP 16
--- NOTE | 2024-07-02 11:42 | CASEMGMT ---
Social Work SW provided verbal hand off to [facility] SW. The goal is to determine any services given to Vivek or Josh from [employer] to assist with relocating son from the home. SW phoned referral from [facility] - spoke with Marlene to give report. Rosalia Rocha MSW MECHANIC CHIEF
--- NOTE | 2024-07-02 13:11 | MDS.RN ---
Pain assessment for MDS complete.
[2024-07-02 15:35] VITALS: BP 118/66; PULSE 82; RESP 17; TEMP 36.6; O2SAT 99
--- NOTE | 2024-07-02 15:48 | CASEMGMT ---
Social Work SW completed BIMS (01/02) and PHQ-2 () for MDS assessment. SW inquired how pt felt about going home. Pt stated I feel good about it, shared some stories about her dogs. No issues noted about being at home with the sons. Rosalia Rocha ARMATURE WINDER REPAIR HELPER CARPORT ERECTOR
[2024-07-02] MEDS: Rivaroxaban 15 MG Tablet PO (17:50)
[2024-07-02 21:22] LABS: Bedside Glucose 173 mg/dL (74-106)
[2024-07-02] MEDS: Methocarbamol 500 MG Tablet PO (22:31)
[2024-07-02] MEDS: Senna/Docusate Sodium 1 Tablet 2 TABLET PO (22:31)
[2024-07-02] MEDS: Atorvastatin Calcium 40 MG Tablet PO (22:31)
[2024-07-03 06:18] LABS: Bedside Glucose 112 mg/dL (74-106)
[2024-07-03] MEDS: Gabapentin 600 MG Tablet PO ×2 (06:24→14:22)
[2024-07-03] MEDS: Acetaminophen 325 MG Tablet 650 MG PO ×2 (06:25→14:22)
[2024-07-03 08:02] VITALS: PULSE 78; RESP 18; O2SAT 98
[2024-07-03 08:30] VITALS: BP 106/71; PULSE 93; RESP 17; TEMP 36.2; O2SAT 96
[2024-07-03] MEDS: Pioglitazone Hydrochloride 30 MG Tablet PO (08:45)
[2024-07-03] MEDS: Tolterodine Tartrate 2 MG CAP.SA PO (08:45)
[2024-07-03] MEDS: Citalopram 10 MG Tablet PO (08:45)
[2024-07-03] MEDS: Fluticasone/Salmeterol 232-14 Inhaler 1 PUFF INHALATION (08:46)
[2024-07-03] MEDS: Pantoprazole Sodium 40 MG Tablet PO (08:46)
[2024-07-03] MEDS: Senna/Docusate Sodium 1 Tablet 2 TABLET PO (08:46)
[2024-07-03] MEDS: Ascorbic Acid 500 MG Tablet PO (08:46)
[2024-07-03] MEDS: Ferrous Gluconate 324 MG Tablet PO (08:47)
[2024-07-03] MEDS: Insulin Glargine-YFGN 100 UNIT/ML Pen 15 UNIT SC (08:49)
--- NOTE | 2024-07-03 15:43 | NURSING ---
educated pt and pts son on discharge paperwork pt vital T-97.8 SPO2-99% Resp-17 B/p-111/79 HR 95 Pt son and DIL escorted pt from unit
== END 2024-07-03 15:35 | disposition home health service (06) | DRG 559 ==
PROVIDERS: Anesthesiology; Admitting Provider Family Medicine Geriatric Medicine; PCP Family Medicine Geriatric Medicine; Referring Provider Family Medicine Geriatric Medicine; Visit Provider Family Medicine Geriatric Medicine
DX: S72.341D Displaced spiral fracture of shaft of right femur, subsequent encounter for closed fracture with routine healing (principal); K21.01 Gastro-esophageal reflux disease with esophagitis, with bleeding; I42.9 Cardiomyopathy, unspecified; E11.22 Type 2 diabetes mellitus with diabetic chronic kidney disease; D50.9 Iron deficiency anemia, unspecified; E11.42 Type 2 diabetes mellitus with diabetic polyneuropathy; N18.31 Chronic kidney disease, stage 3a; I12.9 Hypertensive chronic kidney disease with stage 1 through stage 4 chronic kidney disease, or unspecified chronic kidney disease; F32.A Depression, unspecified; K25.9 Gastric ulcer, unspecified as acute or chronic, without hemorrhage or perforation; I48.0 Paroxysmal atrial fibrillation; E78.2 Mixed hyperlipidemia; Z79.4 Long term (current) use of insulin; W01.0XXD Fall on same level from slipping, tripping and stumbling without subsequent striking against object, subsequent encounter; Z79.84 Long term (current) use of oral hypoglycemic drugs; Z87.891 Personal history of nicotine dependence; Z79.51 Long term (current) use of inhaled steroids; Z79.01 Long term (current) use of anticoagulants; N32.81 Overactive bladder; Z79.899 Other long term (current) drug therapy
CPT/HCPCS: 36415; 36430; 73502; 80048; 80061; 82274; 82962; 83540; 83550; 85014; 85018; 85025; 85610; 85730; 86850; 86900; 86901; 92507; 92523; 97110; 97116; 97129; 97130; 97162; 97166; 97530; 97535; 97802; 97803; P9016; A4216; J1940

== ENCOUNTER 2024-06-19 10:10 | Day surgery (SDC) | payer MEDICARE, SELFPAY ==
--- NOTE | 2024-06-18 16:08 | PAT.ANESEVAL ---
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 When Was Last Pacemaker Check QUESTION #4 FULL TEXT: You/Your Family Experience fever (hyperthermia) with Anesthesia Last Oral Intake Last Oral intake: Last Oral Intake NPO since Meds taken in AM with sips of water? 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 Female Yes 06/18/24 15:07 HX of Motion Sickness No 06/18/24 15:07 HX of N/V After Surgery No 06/18/24 15:07 Non-Smoker Yes 06/18/24 15:07 Duration of Surgery greater No 06/18/24 15:07 than 60 minutes Number of Risk Factors 2 06/18/24 15:07 PONV Score Moderate Risk 06/18/24 15:07 Height & Weight Height & Weight: Anesthesia: Height & Weight Height 5 ft 1 in 06/18/24 14:07 Respiratory Assessment Respiratory Assessment - tank truck engine mechanic: Respiratory Tract Infection Hx - tank truck engine mechanic Hx Respiratory Tract Infection No 06/18/24 15:07 STOP Sleep Apnea STOP Sleep Apnea - tank truck engine mechanic: STOP Sleep Apnea - tank truck engine mechanic Hx Hypertension No 06/18/24 15:07 Hx Sleep Apnea No 06/18/24 15:07 CPAP No 06/11/24 16:24 BIPAP No 04/15/19 15:10 Do you snore loudly (louder No 06/18/24 15:07 than talking or can be heard Do you often feel tired/ No 06/18/24 15:07 fatigued/ sleepy during daytime? Has anyone observed you stop No 06/18/24 15:07 breathing during sleep? STOP Results Negative 06/18/24 15:07 QUESTION #5 FULL TEXT : Do you snore loudly (louder than talking or can be heard through closed doors)? 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 Specify any problems Hx of Preganancy in last 3 No 06/18/24 15:07 Months Nurse Filling Out Transfusion [facility] 06/18/24 15:07 & Questions: Date: 06/18/24 06/18/24 15:07 Time: 15:21 06/18/24 15:07 Patient unable to answer at this time (ie. 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 mechanic Hx Now No 06/18/24 15:07 Gestational Age (in weeks): EDC: Hx Hx Para Hx Section SAB [facility] Medical History (Updated 06/18/24 @ 15:41 by Odalis Crespo) History of echocardiogram Cardiology follow-up encounter Wears dentures Wears glasses Bladder disease Stroke/cerebrovascular accident Insulin dependent diabetes mellitus Arthritis Walker as ambulation aid Bruising Diabetes Former smoker Pulmonary embolism Benign essential HTN Aortic root dilatation Cardiomyopathy Chronic kidney disease, stage 3 Nonrheumatic aortic (valve) stenosis Nonrheumatic tricuspid (valve) insufficiency Nonrheumatic mitral (valve) insufficiency Hemorrhoids Atrophic vaginitis Mixed incontinence Postlaminectomy syndrome (02/01/16) Lung nodule (10/28/14) Lichen simplex chronicus (10/20/10) Left foot drop (04/24/13) Osteoarthritis Lumbar stenosis Degenerative joint disease of right knee History of colitis (10/19/10) Hyperlipidemia History of pulmonary embolus (PE) (10/30/06) Scoliosis Asthma History of DVT (deep vein thrombosis) (10/30/06) Anemia (04/10/17) History of syncope (10/01/17) Paroxysmal atrial fibrillation (03/13/18) DM2 (diabetes mellitus, type 2) Chronic bronchitis Syncope Home Medications ?Medication ?Instructions ?Recorded ?Last Taken ?Type fluticasone 100 mcg-salmeterol 50 1 puff inhalation BID asthma 01/29/13 Unknown History mcg/dose blistr powdr for inhalation ferrous gluconate 324 mg (37.5 mg 325 mg PO BID iron 05/29/18 Unknown History iron) tablet sennosides 8.6 mg-docusate sodium 2 tab PO BID PRN Constipation 04/15/19 Unknown History 50 mg tablet albuterol sulfate 90 mcg/actuation 2 puff inhalation 4X/DAY PRN asthma 12/05/21 Unknown History aerosol inhaler famotidine 40 mg tablet 40 mg PO 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 12/05/21 Unknown History cetirizine 10 mg tablet 10 mg PO DAILY PRN allergy symptoms 06/21/22 Unknown History gabapentin 600 mg tablet 600 mg PO TID neuropathy 06/21/22 Unknown History pioglitazone 30 mg tablet 30 mg PO DAILY diabetes 06/21/22 Unknown History rivaroxaban 15 mg tablet (Xarelto) 15 mg PO DAILY blood thinner #90 12/19/22 Unknown Rx tabs atorvastatin 40 mg tablet 40 mg PO DAILY cholesterol #90 tabs 04/07/24 Unknown Rx solifenacin 5 mg tablet 5 mg PO QDAY overactive bladder 05/27/24 Unknown History ascorbic acid (vitamin C) 500 mg 500 mg PO DAILY supplement 06/09/24 Unknown History tablet citalopram 10 mg tablet 10 mg PO DAILY mood 06/09/24 Unknown History methocarbamol 500 mg tablet 250 - 500 mg PO BID PRN PRN muscle 06/09/24 Unknown History spasm acetaminophen 325 mg tablet 650 mg (2 x 325 mg) PO Q8 pain #0 06/15/24 Unknown Rx tabs aluminum-mag hydroxide-simethicone 30 ml PO Q6H PRN PRN Gastric 06/15/24 Unknown Rx 400 mg-400 mg-40 mg/5 mL oral susp Burning #0 mL (Mag-Al Plus Extra Strength) hydrocodone-acetaminophen 5-325mg 2 tab PO Q6H PRN PRN Pain Score 06/15/24 Unknown Rx 5mg-325mg 4-10 1 day #3 tabs insulin lispro 100 unit/mL See Protocol subcut ACHS diabetes 06/15/24 Unknown Rx subcutaneous pen (Humalog KwikPen #0 mL (U-100) Insulin) melatonin 3 mg tablet 3 mg PO QHS PRN PRN Insomnia #0 06/15/24 Unknown Rx tabs Allergy/AdvReac Type Severity Reaction Status Date / Time cider vinegar Allergy NEEDS Verified 06/09/24 20:23 FOLLOW-UP cottonseed oil Allergy NEEDS Verified 06/09/24 20:23 FOLLOW-UP grass pollen Allergy NEEDS Verified 06/09/24 20:23 FOLLOW-UP morphine Allergy Unknown Verified 06/09/24 20:23 oxycodone HCl (From Allergy Unknown Verified 06/09/24 20:23 OxyContin) propoxyphene HCl (From Allergy Unknown Verified 06/09/24 20:23 Darvon) wool Allergy NEEDS Verified 06/09/24 20:23 FOLLOW-UP chlorhexidine AdvReac Rash Verified 06/09/24 20:23 feathers AdvReac NEEDS Verified 06/09/24 20:23 FOLLOW-UP Family History Mother CAD (coronary artery disease) DVT (deep venous thrombosis) Hypertension Father Prostate cancer Sister Breast cancer Surgical History History of total right hip replacement (09/17/18) History of total right knee replacement (2008) History of hysterectomy (1999) History of bilateral salpingo-oophorectomy (1999) H/O transurethral destruction of bladder lesion (03/26/14) History of fractured kneecap (2007) History of partial knee replacement (2006) H/O thumb surgery (2003) Status post ORIF of fracture of ankle (1986) H/O tubal ligation (1988) History of laparoscopy (1999) History of lumbar laminectomy (11/05/12) Status post insertion of inferior vena caval filter (10/30/06) History of colonoscopy (05/17/11) History of (1988) Patellar tendon rupture History of knee replacement (09/02/06) Social History household members: family Smoking Status: Former smoker quit date: 02/18/69 alcohol intake: never substance use type: does not use caffeine: Yes Type: coffee Number of servings: 1 Audit: Pertinent Findings Pertinent Findings EKG Perinent findings: June 10, 2024. Normal sinus rhythm. No change from September 07, 2022. Stress test pertinent findings: April 17, 2018. Ejection fraction 65%. Increased to 75% with stress. Negative for ischemia. Echo (EF%) pertinent findings: June 14, 2020. Ejection fraction 55%. RVSP is 31 mmHg. No aortic stenosis is noted. Consult pertinent findings: May 27, 2024. Paul BARLOW?C. 1. Paroxysmal atrial fibrillation?chronic-discovered doing ophthalmic procedure. Currently normal sinus rhythm on exam today. [id number] score of 6. Renal dose of Xarelto. Patient reports no active bleeding. Continue carvedilol. Last echo in 2020 as above. Repeat echo. 2. Aortic root dilation?chronic-repeat echo to assess. 3. Nonrheumatic aortic valve stenosis?chronic-mild on 2020 echo. Check echo. 4. Hypertension?chronic-blood pressure stable today in the office. Continue current medications. Defer to nephrology if chronic kidney disease condition warrants modification. 5. Cardiomyopathy?chronic-euvolemic on exam. 6. Chronic kidney disease stage III?chronic-defer to nephrology. Recommendation Anesthesia Recommendation Anesthesia recommendation: F/U recommended (Patient was seen by cardiology on May 27, 2024 and an echocardiogram was recommended because the last echo was 4 years old. Was this done? and if so we need the results.)
[2024-06-19] VITALS (8 sets, daily range): BP systolic 121–142; BP diastolic 75–87; PULSE 76–80; RESP 16–18; TEMP 36.1–36.9; O2SAT 97–100; BMI 33.8
[2024-06-19] MEDS: Lactated Ringers 1,000 ML 15 ML IV (10:59)
--- NOTE | 2024-06-19 11:00 | PCM.PRE.AN2 ---
ASA Classification* ASA Classification ASA Classification: 3 Assessment & Plan Anesthesia* Anesthesia Assessment Anesthesia Assessment: Discussed sedation and/or anesthesia options, risks, benefits, and alternatives with patient/parents/legal guardian/POA. Questions invited. The patient/parents/legal guardian/POA seems to understand and agrees to proceed with anesthesia plan. Reviewed the physical assessment, medical history, allergy history and patient home medications list prior to surgery/procedure/anesthetic and documented any changes. Performed airway and anesthesia risk assessments. Anesthesia Type Anesthesia Type: MAC Anesthesia Focused Assessment* Temperature: 97.4 F Pulse Rate: 78 Blood Pressure: 136/84 Respiratory Rate: 16 Pulse Ox: 97 Airway Assessment Mouth opens: >3 cm Mallampati Score: II Focused Labs Anesthesia Preop lab: CBC WBC 6.0 K/mm3 (4.4-11.0) 06/18/24 05:09 06/18/24 RBC 3.09 M/mm3 (4.2-5.4) L 06/18/24 05:09 06/18/24 Hgb 10.2 g/dL (12.0-15.0) L 06/18/24 16:35 06/18/24 Hct 30.6 % (37-47) L 06/18/24 16:35 06/18/24 Plt Count 208 K/mm3 (150-450) 06/18/24 05:09 06/18/24 CHEMISTRY Potassium 4.8 mmol/L (3.3-5.1) 06/18/24 05:09 06/18/24 Sodium 141 mmol/L (133-145) 06/18/24 05:09 06/18/24 Magnesium 2.0 mg/dL (1.5-2.2) 06/09/24 20:27 06/09/24 Phosphorus 2.9 mg/dL (2.7-4.5) 06/15/24 08:00 06/15/24 BUN 40 mg/dL (4-19) H 06/18/24 05:09 06/18/24 Creatinine 1.25 mg/dL (0.70-1.20) H 06/18/24 05:09 06/18/24 Glucose 131 mg/dL (70-99) H 06/18/24 05:09 06/18/24 POC Glucose 124 mg/dL (74-106) H 06/19/24 10:45 06/19/24 TSH 2.210 uIU/mL (0.300-4.200) 06/10/24 05:06 06/10/24 COAG PT 17.5 SECONDS (11.7-14.9) H 06/18/24 05:09 06/18/24 Pre-Assessment Diagnosis/Proposed Procedure Planned Operative Procedure(s): EGD Anesthesia History 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 When Was Last Pacemaker Check QUESTION #4 FULL TEXT: You/Your Family Experience fever (hyperthermia) with Anesthesia Last Oral Intake Last Oral intake: Last Oral Intake NPO since 00:00 06/19/24 10:30 Meds taken in AM with sips of Yes 06/19/24 10:30 water? 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 Female Yes 06/18/24 15:07 HX of Motion Sickness No 06/18/24 15:07 HX of N/V After Surgery No 06/18/24 15:07 Non-Smoker Yes 06/18/24 15:07 Duration of Surgery greater No 06/18/24 15:07 than 60 minutes Number of Risk Factors 2 06/18/24 15:07 PONV Score Moderate Risk 06/18/24 15:07 Height & Weight Height & Weight: Anesthesia: Height & Weight Height 5 ft 1 in 06/19/24 10:30 Weight: 81.193 kg 06/19/24 10:30 Body Mass Index (BMI) 33.8 06/19/24 10:30 Respiratory Assessment Respiratory Assessment - corrugated box machine operator: Respiratory Tract Infection Hx - corrugated box machine operator Hx Respiratory Tract Infection No 06/18/24 15:07 STOP Sleep Apnea STOP Sleep Apnea - corrugated box machine operator: STOP Sleep Apnea - corrugated box machine operator Hx Hypertension No 06/18/24 15:07 Hx Sleep Apnea No 06/18/24 15:07 CPAP No 06/19/24 12:42 BIPAP No 04/15/19 15:10 Do you snore loudly (louder No 06/18/24 15:07 than talking or can be heard Do you often feel tired/ No 06/18/24 15:07 fatigued/ sleepy during daytime? Has anyone observed you stop No 06/18/24 15:07 breathing during sleep? STOP Results Negative 06/19/24 12:42 QUESTION #5 FULL TEXT : Do you snore loudly (louder than talking or can be heard through closed doors)? 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 Specify any problems Hx of Preganancy in last 3 No 06/18/24 15:07 Months Nurse Filling Out Transfusion VLEHMAN 06/18/24 15:07 & Questions: Date: 06/18/24 06/18/24 15:07 Time: 15:21 06/18/24 15:07 Patient unable to answer at this time (ie. 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: /Reproductive Hx- corrugated box machine operator Hx Now No 06/18/24 15:07 Gestational Age (in weeks): EDC: Hx Hx Para Hx Section SAB Active Medications Active Medications: Current Medications Generic Name Dose Route Start Last Admin Trade Name Freq PRN Reason Stop Dose Admin Lactated Ringer's 1,000 mls @ 15 mls/hr 06/19/24 10:15 06/19/24 10:59 IV 15 mls/hr .Q48H IZABELLA Administration PFSH Medical History History of echocardiogram Cardiology follow-up encounter Wears dentures Wears glasses Bladder disease Stroke/cerebrovascular accident Insulin dependent diabetes mellitus Arthritis Walker as ambulation aid Bruising Diabetes Former smoker Pulmonary embolism Benign essential HTN Aortic root dilatation Cardiomyopathy Chronic kidney disease, stage 3 Nonrheumatic aortic (valve) stenosis Nonrheumatic tricuspid (valve) insufficiency Nonrheumatic mitral (valve) insufficiency Hemorrhoids Atrophic vaginitis Mixed incontinence Postlaminectomy syndrome (02/01/16) Lung nodule (10/28/14) Lichen simplex chronicus (10/20/10) Left foot drop (04/24/13) Osteoarthritis Lumbar stenosis Degenerative joint disease of right knee History of colitis (10/19/10) Hyperlipidemia History of pulmonary embolus (PE) (10/30/06) Scoliosis Asthma History of DVT (deep vein thrombosis) (10/30/06) Anemia (04/10/17) History of syncope (10/01/17) Paroxysmal atrial fibrillation (03/13/18) DM2 (diabetes mellitus, type 2) Chronic bronchitis Syncope Home Medications ?Medication ?Instructions ?Recorded ?Last Taken ?Type fluticasone 100 mcg-salmeterol 50 1 puff inhalation BID asthma 01/29/13 06/19/24 History mcg/dose blistr powdr for inhalation ferrous gluconate 324 mg (37.5 mg 325 mg PO BID iron 05/29/18 Unknown History iron) tablet sennosides 8.6 mg-docusate sodium 2 tab PO BID PRN Constipation 04/15/19 Unknown History 50 mg tablet albuterol sulfate 90 mcg/actuation 2 puff inhalation 4X/DAY PRN asthma 12/05/21 Unknown History aerosol inhaler famotidine 40 mg tablet 40 mg PO DAILY stomach acid outside dealer 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 12/05/21 06/19/24 History cetirizine 10 mg tablet 10 mg PO DAILY PRN allergy symptoms 06/21/22 Unknown History gabapentin 600 mg tablet 600 mg PO TID neuropathy 06/21/22 06/19/24 History pioglitazone 30 mg tablet 30 mg PO DAILY diabetes 06/21/22 Unknown History rivaroxaban 15 mg tablet (Xarelto) 15 mg PO DAILY blood thinner #90 12/19/22 06/17/24 Rx tabs atorvastatin 40 mg tablet 40 mg PO DAILY cholesterol #90 tabs 04/07/24 Unknown Rx solifenacin 5 mg tablet 5 mg PO QDAY overactive bladder 05/27/24 Unknown History ascorbic acid (vitamin C) 500 mg 500 mg PO DAILY supplement 06/09/24 Unknown History tablet citalopram 10 mg tablet 10 mg PO DAILY mood 06/09/24 Unknown History methocarbamol 500 mg tablet 250 - 500 mg PO BID PRN PRN muscle 06/09/24 Unknown History spasm acetaminophen 325 mg tablet 650 mg (2 x 325 mg) PO Q8 pain #0 06/15/24 06/19/24 Rx tabs aluminum-mag hydroxide-simethicone 30 ml PO Q6H PRN PRN Gastric 06/15/24 Unknown Rx 400 mg-400 mg-40 mg/5 mL oral susp Burning #0 mL (Mag-Al Plus Extra Strength) hydrocodone-acetaminophen 5-325mg 2 tab PO Q6H PRN PRN Pain Score 06/15/24 Unknown Rx 5mg-325mg 4-10 1 day #3 tabs insulin lispro 100 unit/mL See Protocol subcut ACHS diabetes 06/15/24 Unknown Rx subcutaneous pen (Humalog KwikPen #0 mL (U-100) Insulin) melatonin 3 mg tablet 3 mg PO QHS PRN PRN Insomnia #0 06/15/24 Unknown Rx tabs Allergy/AdvReac Type Severity Reaction Status Date / Time cider vinegar Allergy NEEDS Verified 06/19/24 10:28 FOLLOW-UP cottonseed oil Allergy NEEDS Verified 06/19/24 10:28 FOLLOW-UP grass pollen Allergy NEEDS Verified 06/19/24 10:28 FOLLOW-UP morphine Allergy Unknown Verified 06/19/24 10:28 oxycodone HCl (From Allergy Unknown Verified 06/19/24 10:28 OxyContin) propoxyphene HCl (From Allergy Unknown Verified 06/19/24 10:28 Darvon) wool Allergy NEEDS Verified 06/19/24 10:28 FOLLOW-UP chlorhexidine AdvReac Rash Verified 06/19/24 10:28 feathers AdvReac NEEDS Verified 06/19/24 10:28 FOLLOW-UP Family History Mother CAD (coronary artery disease) DVT (deep venous thrombosis) Hypertension Father Prostate cancer Sister Breast cancer Surgical History History of total right hip replacement (09/17/18) History of total right knee replacement (2008) History of hysterectomy (1999) History of bilateral salpingo-oophorectomy (1999) H/O transurethral destruction of bladder lesion (03/26/14) History of fractured kneecap (2007) History of partial knee replacement (2006) H/O thumb surgery (2003) Status post ORIF of fracture of ankle (1986) H/O tubal ligation (1988) History of laparoscopy (1999) History of lumbar laminectomy (11/05/12) Status post insertion of inferior vena caval filter (10/30/06) History of colonoscopy (05/17/11) History of (1988) Patellar tendon rupture History of knee replacement (09/02/06) Social History household members: family Smoking Status: Former smoker quit date: 02/18/69 alcohol intake: never substance use type: does not use caffeine: Yes Type: coffee Number of servings: 1 Review of Systems (Anesthesia) ROS Narrative System reviewed and no additional complaints, except as documented.
[2024-06-19 11:21] LABS: Bedside Glucose 124 mg/dL (74-106)
--- NOTE | 2024-06-19 11:30 | EGD_PTH ---
PATIENT: MICHAEL COMBS LOC: EN U#:[id number] AGE/SX: 73/F ROOM: RE06/19/[address]: Dr. Roney Sher DO : 1950 BED: DIS: 06/19/2024 SPEC #: [id number] RECD: 06/19/24 13:10 STATUS: JASON LOTTIE #: [id number] ILANA: 06/19/24 11:[address]: Roney Sher DEPT: SURGICAL PATHOLOGY RECD BY: Armando Alvarado ENTERED: 06/19/24 13:39 SP TYPE: EGD BIOPSY LUIS M DR: Dr. Quentin Kellogg MD Tissues: A - Esophagus, NOS Procedures: Surgery Specimen Level IV HEADER OPERATION: EGD with biopsy and electrohemostasis PRE-OP DIAGNOSIS: Iron deficiency, GERD TISSUE SUBMITTED: A- Distal esophagus biopsy MICROSCOPIC DIAGNOSIS A. Esophagus, distal, biopsy: * Squamous mucosa with reactive changes. * Columnar mucosa negative for goblet cell metaplasia. MICROSCOPIC DESCRIPTION Slides are reviewed. GROSS DESCRIPTION A. Received in formalin in a container labeled with the patient's name, date of , and distal esophagus biopsy is a 0.7 x 0.2 x 0.2 cm strip of coelho-pink mucosal tissue. Submitted in toto in A1. [facility] 06-19-2024 CPT:18573
--- NOTE | 2024-06-19 12:02 | PCM.HP.STD ---
HPI - General General Date of Admission: 06/19/24 Date of Service: 06/19/24 Chief Complaint: Anemia HPI Narrative MICHAEL COMBS, is a 73 year old female recently hospitalized for right distal spiral femur fracture, underwent ORIF right distal femur fracture, intramedullary nail retrograde, cerclage wires 06/11/[address] Sivakumar Shannon, admitted to TCU with debility and rehab. I was called to see the patient due to decreasing hemoglobin and Hemoccult positive stools in the setting of progressive iron deficiency anemia while on anticoagulation. She got blood transfusions recently. [facility] Medical History History of echocardiogram Cardiology follow-up encounter Wears dentures Wears glasses Bladder disease Stroke/cerebrovascular accident Insulin dependent diabetes mellitus Arthritis Walker as ambulation aid Bruising Diabetes Former smoker Pulmonary embolism Benign essential HTN Aortic root dilatation Cardiomyopathy Chronic kidney disease, stage 3 Nonrheumatic aortic (valve) stenosis Nonrheumatic tricuspid (valve) insufficiency Nonrheumatic mitral (valve) insufficiency Hemorrhoids Atrophic vaginitis Mixed incontinence Postlaminectomy syndrome (02/01/16) Lung nodule (10/28/14) Lichen simplex chronicus (10/20/10) Left foot drop (04/24/13) Osteoarthritis Lumbar stenosis Degenerative joint disease of right knee History of colitis (10/19/10) Hyperlipidemia History of pulmonary embolus (PE) (10/30/06) Scoliosis Asthma History of DVT (deep vein thrombosis) (10/30/06) Anemia (04/10/17) History of syncope (10/01/17) Paroxysmal atrial fibrillation (03/13/18) DM2 (diabetes mellitus, type 2) Chronic bronchitis Syncope Home Medications ?Medication ?Instructions ?Recorded ?Last Taken ?Type fluticasone 100 mcg-salmeterol 50 1 puff inhalation BID asthma 01/29/13 06/19/24 History mcg/dose blistr powdr for inhalation ferrous gluconate 324 mg (37.5 mg 325 mg PO BID iron 05/29/18 Unknown History iron) tablet sennosides 8.6 mg-docusate sodium 2 tab PO BID PRN Constipation 04/15/19 Unknown History 50 mg tablet albuterol sulfate 90 mcg/actuation 2 puff inhalation 4X/DAY PRN asthma 12/05/21 Unknown History aerosol inhaler famotidine 40 mg tablet 40 mg PO DAILY stomach acid spice blender 12/05/21 06/19/24 History cetirizine 10 mg tablet 10 mg PO DAILY PRN allergy symptoms 06/21/22 Unknown History gabapentin 600 mg tablet 600 mg PO TID neuropathy 06/21/22 06/19/24 History pioglitazone 30 mg tablet 30 mg PO DAILY diabetes 06/21/22 Unknown History rivaroxaban 15 mg tablet (Xarelto) 15 mg PO DAILY blood thinner #90 12/19/22 06/17/24 Rx tabs atorvastatin 40 mg tablet 40 mg PO DAILY cholesterol #90 tabs 04/07/24 Unknown Rx solifenacin 5 mg tablet 5 mg PO QDAY overactive bladder 05/27/24 Unknown History ascorbic acid (vitamin C) 500 mg 500 mg PO DAILY supplement 06/09/24 Unknown History tablet citalopram 10 mg tablet 10 mg PO DAILY mood 06/09/24 Unknown History methocarbamol 500 mg tablet 250 - 500 mg PO BID PRN PRN muscle 06/09/24 Unknown History spasm acetaminophen 325 mg tablet 650 mg (2 x 325 mg) PO Q8 pain #0 06/15/24 06/19/24 Rx tabs aluminum-mag hydroxide-simethicone 30 ml PO Q6H PRN PRN Gastric 06/15/24 Unknown Rx 400 mg-400 mg-40 mg/5 mL oral susp Burning #0 mL (Mag-Al Plus Extra Strength) hydrocodone-acetaminophen 5-325mg 2 tab PO Q6H PRN PRN Pain Score 06/15/24 Unknown Rx 5mg-325mg 4-10 1 day #3 tabs insulin lispro 100 unit/mL See Protocol subcut ACHS diabetes 06/15/24 Unknown Rx subcutaneous pen (Humalog KwikPen #0 mL (U-100) Insulin) melatonin 3 mg tablet 3 mg PO QHS PRN PRN Insomnia #0 06/15/24 Unknown Rx tabs Allergy/AdvReac Type Severity Reaction Status Date / Time cider vinegar Allergy NEEDS Verified 06/19/24 10:28 FOLLOW-UP cottonseed oil Allergy NEEDS Verified 06/19/24 10:28 FOLLOW-UP grass pollen Allergy NEEDS Verified 06/19/24 10:28 FOLLOW-UP morphine Allergy Unknown Verified 06/19/24 10:28 oxycodone HCl (From Allergy Unknown Verified 06/19/24 10:28 OxyContin) propoxyphene HCl (From Allergy Unknown Verified 06/19/24 10:28 Darvon) wool Allergy NEEDS Verified 06/19/24 10:28 FOLLOW-UP chlorhexidine AdvReac Rash Verified 06/19/24 10:28 feathers AdvReac NEEDS Verified 06/19/24 10:28 FOLLOW-UP Family History Mother CAD (coronary artery disease) DVT (deep venous thrombosis) Hypertension Father Prostate cancer Sister Breast cancer Surgical History History of total right hip replacement (09/17/18) History of total right knee replacement (2008) History of hysterectomy (1999) History of bilateral salpingo-oophorectomy (1999) H/O transurethral destruction of bladder lesion (03/26/14) History of fractured kneecap (2007) History of partial knee replacement (2006) H/O thumb surgery (2003) Status post ORIF of fracture of ankle (1986) H/O tubal ligation (1988) History of laparoscopy (1999) History of lumbar laminectomy (11/05/12) Status post insertion of inferior vena caval filter (10/30/06) History of colonoscopy (05/17/11) History of (1988) Patellar tendon rupture History of knee replacement (09/02/06) Social History household members: family Smoking Status: Former smoker quit date: 02/18/69 alcohol intake: never substance use type: does not use caffeine: Yes Type: coffee Number of servings: 1 ROS Constitutional Constitutional: Denies fatigue, fever(s), poor appetite, weight gain or weight loss Gastrointestinal Gastrointestinal: Denies belching, bloating, change in bowel habits, change in stool character, chewing difficulty, coffee ground emesis, constipation, cramping, diarrhea, dyspepsia, dysphagia, early satiety, excessive flatus, fecal incontinence, heartburn, hematemesis, hematochezia, hemorrhoids, loose stools, melena, nausea, odynophagia, rectal bleeding, tenesmus, vomiting or weight changes Vital Signs Vital Signs Vital Signs: 06/19/24 10:30 06/19/24 10:30 Temperature 97.5 F L Temperature Source Temporal Pulse Rate 76 Respiratory Rate 18 Respiratory Pattern Normal Blood Pressure 142/81 H Blood Pressure Mean 101 Blood Pressure Source Monitor Blood Pressure Position Semi-Fowlers Blood Pressure Location Left Arm Pulse Ox 100 Oxygen Delivery Method Room Air Weight Weight: 179 lb Body Mass Index (BMI) 33.8 Physical Exam Const alert, oriented x3, no apparent distress and healthy appearing General Appearance: cooperative GI normal to inspection, nondistended, normoactive bowel sounds, soft to palpation, non-tender and non-distended Percussion: normal to percussion Rectal Exam: deferred Results Lab / Micro Data Labs: Laboratory Results - last 24 hr 06/19/24 10:45: POC Glucose 124 H Assessment & Plan Assessment/Plan (1) Iron deficiency anemia: PLAN: [age]-year-old with recent right distal spiral femur fracture status post ORIF with repair and worsening iron deficiency anemia status post blood transfusion on anticoagulation. She will undergo an upper endoscopy to evaluate upper GI tract. She was explained alternatives, risk and benefits including withstanding bleeding, infection, sepsis, perforation, need for emergency or to . She have an ASA of 3.
--- NOTE | 2024-06-19 12:41 | OP.CCLET_ITS ---
06/19/2024 Quentin Kellogg MD [address] [place] [address] Re : Upper GI endoscopy procedure for Annette Gore Dear Dr. Kellogg This procedure was performed on Wednesday, June 19, 2024. My impressions and recommendations are as follows: Impressions : - LA Grade D erosive esophagitis with bleeding. Biopsied. Treated with a heater probe. - Non-bleeding gastric ulcer with no stigmata of bleeding. Treated with a heater probe. - No gross lesions in the entire examined duodenum. Recommendations : - [facility]. - Resume previous diet. - Use Protonix (pantoprazole) 40 mg PO BID. - Continue present medications. My findings are described in the full procedure note, which is enclosed. If I can be of further assistance, please feel free to contact me at . Sincerely, Roney Friend, 06/19/2024 12:40:51 PM This report has been signed electronically.
--- NOTE | 2024-06-19 12:41 | OP.EGD_ITS ---
Patient Name: Annette Gore Procedure Date: 06/19/2024 7:25 AM Date of : 1950 Age: 73 Procedure: Upper GI endoscopy Indications: Heartburn Providers: Roney Sher DO Patient Profile: This is a 73 year old female. Refer to note in patient chart for documentation of history and physical. Patient has symptoms. Complications: No immediate complications. Procedure: Pre-Anesthesia Assessment: - Prior to the procedure, a History and Physical was performed, and patient medications and allergies were reviewed. The patient is competent. The risks and benefits of the procedure and the sedation options and risks were discussed with the patient. All questions were answered and informed consent was obtained. Patient identification and proposed procedure were verified by the physician in the pre-procedure area. Mental Status Examination: alert and oriented. Airway Examination: normal oropharyngeal airway and neck mobility. Respiratory Examination: clear to auscultation. CV Examination: normal. Prophylactic Antibiotics: The patient does not require prophylactic antibiotics. Prior Anticoagulants: The patient has taken no anticoagulant or antiplatelet agents except for NSAID medication. ASA Grade Assessment: II - A patient with mild systemic disease. After reviewing the risks and benefits, the patient was deemed in satisfactory condition to undergo the procedure. The anesthesia plan was to use monitored anesthesia care (MAC). Immediately prior to administration of medications, the patient was re-assessed for adequacy to receive sedatives. The heart rate, respiratory rate, oxygen saturations, blood pressure, adequacy of pulmonary ventilation, and response to care were monitored throughout the procedure. The physical status of the patient was re-assessed after the procedure. After obtaining informed consent, the endoscope was passed under direct vision. Throughout the procedure, the patient's blood pressure, pulse, and oxygen saturations were monitored continuously. The Endoscope was introduced through the mouth, and advanced to the third part of the duodenum. Small bowel enteroscopy was deemed necessary. The upper GI endoscopy was accomplished without difficulty. The patient tolerated the procedure well. Scope In: 12:31:55 PM Scope Out: 12:36:36 PM Total Procedure Duration Time 0 hours 4 minutes 41 seconds Findings: LA Grade D (one or more mucosal breaks involving at least 75% of esophageal circumference) esophagitis with bleeding was found 34 to 40 cm from the incisors. Biopsies were taken with a cold forceps for histology. Coagulation for hemostasis using heater probe was successful. Estimated blood loss was minimal. Coagulation for hemostasis using heater probe was successful. Estimated blood loss was minimal. One non-bleeding superficial gastric ulcer with no stigmata of bleeding was found in the gastric antrum. The lesion was 6 mm in largest dimension. Coagulation for destruction of remaining portion of lesion using heater probe was successful. Estimated blood loss was minimal. No gross lesions were noted in the entire examined duodenum. Impression: - LA Grade D erosive esophagitis with bleeding. Biopsied. Treated with a heater probe. - Non-bleeding gastric ulcer with no stigmata of bleeding. Treated with a heater probe. - No gross lesions in the entire examined duodenum. Recommendation: - Return patient to [facility] for [facility] care. - Resume previous diet. - Use Protonix (pantoprazole) 40 mg PO BID. - Continue present medications. Procedure Code(s): --- Professional --- 02900, 59, Small intestinal endoscopy, enteroscopy beyond second portion of duodenum, not including ileum; with control of bleeding (eg, injection, bipolar cautery, unipolar cautery, laser, heater probe, stapler, plasma swimming pool servicer) 02740, 51, Small intestinal endoscopy, enteroscopy beyond second portion of duodenum, not including ileum; with biopsy, single or multiple CPT copyright 2021 [employer]. All rights reserved. The codes documented in this report are preliminary and upon information consultant review may be revised to meet current compliance requirements. Roney Sher DO 06/19/2024 12:40:51 PM This report has been signed electronically. Number of Addenda: 0 Note Initiated On: 06/19/2024 7:25 AM
--- NOTE | 2024-06-19 13:04 | PCM.POST.ANE ---
Anesthesia: Postop Eval I Current Vital Signs Temperature: 97 F Pulse Rate: 78 Blood Pressure: 136/84 Respiratory Rate: 16 Pulse Ox: 97 Oxygen Delivery Method: Room Air Assessment Airway patent: Yes Spontaneous unlabored respirations: Yes Mental status: Awake nausea: No Vomiting: No Anesthesia Complication: No Fluid Hydration Crystalloid volume administer (ml): 10 Total IV fluid infused: 10 Progress Note Anesthesia document: Postop Eval 1 completed: Yes
--- NOTE | 2024-06-19 13:14 | PCM.POSTANE2 ---
Anesthesia Postop Eval I Sum Postop Eval Completion status Anesthesia document: Postop Eval 1 completed: Yes Anesthesia Postop Eval I Summary Anesthesia Postop Eval I Summary: Anesthesia Postop Eval I: Assessment Summary Airway patent Yes 06/19/24 13:05 Spontaneous unlabored Yes 06/19/24 13:05 respirations Mental status Awake 06/19/24 13:05 nausea No 06/19/24 13:05 Vomiting No 06/19/24 13:05 Anesthesia Postop Eval I: Fluid Summary Crystalloid volume administer 10 06/19/24 13:05 (ml) Colloids volume administered ( ml) Blood Product volume administered (ml) Total IV fluid infused 10 06/19/24 13:05 Anesthesia Postop Eval I: Summary Notes Anesthesia Complication No 06/19/24 13:05 Anesthesia Complication Comment: Post-operative progress note Anesthesia: Postop Eval II Evaluation Mental status: Awake Pain Level: 0 nausea: No Vomiting: No
--- NOTE | 2024-06-19 16:09 | PAT.ANE_ITS ---
Pre-Assessment Diagnosis/Proposed Procedure Planned Operative Procedure(s): EGD Anesthesia History Anesthesia History - it support engineer: Anesthesia History - it support engineer Hx Hospitalization Yes: FELL AT HOME, IN TCU 06/18/24 15:07 CURRENTLY Any Problems With Anesthesia No 06/18/24 15:07 Cholinesterase deficiency No 06/18/24 15:07 You/Your Family Experience No 06/18/24 15:07 fever (hyperthermia) with Relationship Recent Exposure to Contagious No 06/19/24 10:30 Disease Does patient have nerve No 06/18/24 15:07 stimulator Patient instructed to have device shut off --Does patient have Pacemaker No 06/19/24 10:30 or ICD? When Was Last Pacemaker Check QUESTION #4 FULL TEXT: You/Your Family Experience fever (hyperthermia) with Anesthesia Last Oral Intake Last Oral intake: Last Oral Intake NPO since 00:00 06/19/24 10:30 Meds taken in AM with sips of Yes 06/19/24 10:30 water? Meds patient instructed to take am of surgery PONV PONV - it support engineer: PONV - it support engineer Female Yes 06/18/24 15:07 HX of Motion Sickness No 06/18/24 15:07 HX of N/V After Surgery No 06/18/24 15:07 Non-Smoker Yes 06/18/24 15:07 Duration of Surgery greater No 06/18/24 15:07 than 60 minutes Number of Risk Factors 2 06/18/24 15:07 PONV Score Moderate Risk 06/18/24 15:07 Height & Weight Height & Weight: Anesthesia: Height & Weight Height 5 ft 1 in 06/19/24 10:30 Weight: 81.193 kg 06/19/24 10:30 Body Mass Index (BMI) 33.8 06/19/24 10:30 Respiratory Assessment Respiratory Assessment - it support engineer: Respiratory Tract Infection Hx - it support engineer Hx Respiratory Tract Infection No 06/18/24 15:07 STOP Sleep Apnea STOP Sleep Apnea - it support engineer: STOP Sleep Apnea - it support engineer Hx Hypertension No 06/18/24 15:07 Hx Sleep Apnea No 06/18/24 15:07 CPAP No 06/19/24 12:42 BIPAP No 04/15/19 15:10 Do you snore loudly (louder No 06/18/24 15:07 than talking or can be heard Do you often feel tired/ No 06/18/24 15:07 fatigued/ sleepy during daytime? Has anyone observed you stop No 06/18/24 15:07 breathing during sleep? STOP Results Negative 06/19/24 12:42 QUESTION #5 FULL TEXT : Do you snore loudly (louder than talking or can be heard through closed doors)? Tobacco Use History Tobacco Use History - it support engineer: Tobacco Use History - it support engineer Tobacco Use Smoking Status Former smoker 06/18/24 15:07 Hx Tobacco Use No 06/18/24 15:07 Years Smoking Packs Smoked per Day Smoking Cessation Date was No - quit smoking greater 06/18/24 15:07 within the last 15 years than 15 years ago Hx Smoking Cessation Date 02/19/72 06/18/24 15:07 Hx Smoking Cessation Counseling Hematologic Medial History Hematologic Hx - it support engineer: Hematologic Medical Hx - inside meter tester Hx of Blood Transfusion Yes 06/18/24 15:07 Hx of Transfusion in last 3 Yes 06/18/24 15:07 Months Date of Last Transfusion (if THIS HOSP VISIT 06/18/24 15:07 within last 3 months) Ever experience any problems No 06/18/24 15:07 with transfusion(s)? Specify any problems Hx of Preganancy in last 3 No 06/18/24 15:07 Months Nurse Filling Out Transfusion [facility] 06/18/24 15:07 & Questions: Date: 06/18/24 06/18/24 15:07 Time: 15:21 06/18/24 15:07 Patient unable to answer at this time (ie. confused, unrespo /Reproduction History /Reproductive History - it support engineer: /Reproductive Hx- it support engineer Hx Now No 06/18/24 15:07 Gestational Age (in weeks): EDC: Hx Hx Para Hx Section SAB PFSH Medical History History of echocardiogram Cardiology follow-up encounter Wears dentures Wears glasses Bladder disease Stroke/cerebrovascular accident Insulin dependent diabetes mellitus Arthritis Walker as ambulation aid Bruising Diabetes Former smoker Pulmonary embolism Benign essential HTN Aortic root dilatation Cardiomyopathy Chronic kidney disease, stage 3 Nonrheumatic aortic (valve) stenosis Nonrheumatic tricuspid (valve) insufficiency Nonrheumatic mitral (valve) insufficiency Hemorrhoids Atrophic vaginitis Mixed incontinence Postlaminectomy syndrome (02/01/16) Lung nodule (10/28/14) Lichen simplex chronicus (10/20/10) Left foot drop (04/24/13) Osteoarthritis Lumbar stenosis Degenerative joint disease of right knee History of colitis (10/19/10) Hyperlipidemia History of pulmonary embolus (PE) (10/30/06) Scoliosis Asthma History of DVT (deep vein thrombosis) (10/30/06) Anemia (04/10/17) History of syncope (10/01/17) Paroxysmal atrial fibrillation (03/13/18) DM2 (diabetes mellitus, type 2) Chronic bronchitis Syncope Home Medications ?Medication ?Instructions ?Recorded ?Last Taken ?Type fluticasone 100 mcg-salmeterol 50 1 puff inhalation BI D asthma 01/29/13 06/19/24 History mcg/dose blistr powdr for inhalation ferrous gluconate 324 mg (37.5 mg 325 mg PO BID iron 0 05/29/18 Unknown History iron) tablet sennosides 8.6 mg-docusate sodium 2 tab PO BID PRN Con stipation 04/15/19 Unknown History 50 mg tablet albuterol sulfate 90 mcg/actuation 2 puff inhalation 4 X/DAY PRN asthma 12/05/21 Unknown History aerosol inhaler famotidine 40 mg tablet 40 mg PO DAILY stomach acid physical therapy assistant instructor 12/05/21 06/19/24 History cetirizine 10 mg tablet 10 mg PO DAILY PRN allergy s ymptoms 06/21/22 Unknown History gabapentin 600 mg tablet 600 mg PO TID neuropathy 06/1006/19/24 History pioglitazone 30 mg tablet 30 mg PO DAILY diabetes 06/10 Unknown History rivaroxaban 15 mg tablet (Xarelto) 15 mg PO DAILY bloo d thinner #90 12/19/22 06/17/24 Rx tabs atorvastatin 40 mg tablet 40 mg PO DAILY cholesterol # 90 tabs 04/07/24 Unknown Rx solifenacin 5 mg tablet 5 mg PO QDAY overactive blad yenni 05/27/24 Unknown History ascorbic acid (vitamin C) 500 mg 500 mg PO DAILY suppl ement 06/09/24 Unknown History tablet citalopram 10 mg tablet 10 mg PO DAILY mood 06/09/24 Unknown History methocarbamol 500 mg tablet 250 - 500 mg PO BID PRN CO N muscle 06/09/24 Unknown History spasm acetaminophen 325 mg tablet 650 mg (2 x 325 mg) PO Q8 pain #0 06/15/24 06/19/24 Rx tabs aluminum-mag hydroxide-simethicone 30 ml PO Q6H PRN CO N Gastric 06/15/24 Unknown Rx 400 mg-400 mg-40 mg/5 mL oral susp Burning #0 mL (Mag-Al Plus Extra Strength) hydrocodone-acetaminophen 5-325mg 2 tab PO Q6H PRN PRN Pain Score 06/15/24 Unknown Rx 5mg-325mg 4-10 1 day #3 tabs insulin lispro 100 unit/mL See Protocol subcut ACHS di abetes 06/15/24 Unknown Rx subcutaneous pen (Humalog KwikPen #0 mL (U-100) Insulin) melatonin 3 mg tablet 3 mg PO QHS PRN PRN Insomnia #0 06/15/24 Unknown Rx tabs Allergy/AdvReac Type Severity Reaction Status Date / Time cider vinegar Allergy NEEDS Verified 06/19/24 10:28 FOLLOW-UP cottonseed oil Allergy NEEDS Verified 06/19/24 10:28 FOLLOW-UP grass pollen Allergy NEEDS Verified 06/19/24 10:28 FOLLOW-UP morphine Allergy Unknown Verified 06/19/24 10:28 oxycodone HCl (From Allergy Unknown Verified 06/19/24 10:28 OxyContin) propoxyphene HCl (From Allergy Unknown Verified 06/19/24 10:28 Darvon) wool Allergy NEEDS Verified 06/19/24 10:28 FOLLOW-UP chlorhexidine AdvReac Rash Verified 06/19/24 10:28 feathers AdvReac NEEDS Verified 06/19/24 10:28 FOLLOW-UP Family History Mother CAD (coronary artery disease) DVT (deep venous thrombosis) Hypertension Father Prostate cancer Sister Breast cancer Surgical History History of total right hip replacement (09/17/18) History of total right knee replacement (2008) History of hysterectomy (1999) History of bilateral salpingo-oophorectomy (1999) H/O transurethral destruction of bladder lesion (03/26/14) History of fractured kneecap (2007) History of partial knee replacement (2006) H/O thumb surgery (2003) Status post ORIF of fracture of ankle (1986) H/O tubal ligation (1988) History of laparoscopy (1999) History of lumbar laminectomy (11/05/12) Status post insertion of inferior vena caval filter (10/30/06) History of colonoscopy (05/17/11) History of (1988) Patellar tendon rupture History of knee replacement (09/02/06) Social History household members: family Smoking Status: Former smoker quit date: 02/18/69 alcohol intake: never substance use type: does not use caffeine: Yes Type: coffee Number of servings: 1 Audit: Pertinent Findings HISTORY of Pertinent Findings History of Pertinent Findings: EKG Pertinent Findings EKG Perinent findings June 10, 2024. Normal 06/18/24 16:15 sinus rhythm. No change from September 07, 2022. Stress Test Pertinent Findings Stress test pertinent findings April 17, 2018. Ejection 06/18/24 16:15 fraction 65%. Increased to 75% with stress. Negative for ischemia. Echo Pertinent Findings Echo (EF%) pertinent findings June 14, 2020. Ejection 06/18/24 16:15 fraction 55%. RVSP is 31 mmHg. No aortic stenosis is noted. Consult Pertinent Findings Consult pertinent findings May 27, 2024. Paul BARLOW?C 06/18/24 16:26 . 1. Paroxysmal atrial fibrillation?chronic- discovered doing ophthalmic procedure. Currently normal sinus rhythm on exam today. [id number] score of 6. Renal dose of Xarelto. Patient reports no active bleeding. Continue carvedilol. Last echo in 2020 as above. Repeat echo. 2. Aortic root dilation? chronic-repeat echo to assess. 3. Nonrheumatic aortic valve stenosis?chronic-mild on 2020 echo. Check echo. 4. Hypertension?chronic- blood pressure stable today in the office. Continue current medications. Defer to nephrology if chronic kidney disease condition warrants modification. 5. Cardiomyopathy?chronic- euvolemic on exam. 6. Chronic kidney disease stage III?chronic-defer to nephrology. Recommendation Anesthesia Recommendation Anesthesia recommendation: OPTIMIZED for anesthesia
== END 2024-06-19 13:28 | disposition skilled nursing facility (03) ==
LOC: EN 10:12 → AC 10:12
PROVIDERS: PCP Family Medicine Geriatric Medicine; Referring Provider Family Medicine Geriatric Medicine; Visit Provider Internal Medicine Gastroenterology
PROC: 0DJ08ZZ Inspection of Upper Intestinal Tract, Via Natural or Artificial Opening Endoscopic (ICD-10-PCS; CPT 43235; principal; 2024-06-19 11:25)
DX: K22.11 Ulcer of esophagus with bleeding (principal); J42 Unspecified chronic bronchitis; I42.9 Cardiomyopathy, unspecified; E11.22 Type 2 diabetes mellitus with diabetic chronic kidney disease; Z79.4 Long term (current) use of insulin; N18.30 Chronic kidney disease, stage 3 unspecified; D50.9 Iron deficiency anemia, unspecified; K25.9 Gastric ulcer, unspecified as acute or chronic, without hemorrhage or perforation; E78.5 Hyperlipidemia, unspecified; I12.9 Hypertensive chronic kidney disease with stage 1 through stage 4 chronic kidney disease, or unspecified chronic kidney disease; R12 Heartburn; Z79.51 Long term (current) use of inhaled steroids; Z79.01 Long term (current) use of anticoagulants; Z79.84 Long term (current) use of oral hypoglycemic drugs; Z87.891 Personal history of nicotine dependence
CPT/HCPCS: 44366; 44361; 82962; 88305; C1889; J2405

== ENCOUNTER → 2024-09-09 | Outpatient (CLI) | payer MEDICARE, SELFPAY ==
[2024-09-09 10:47] LABS: Hematocrit 35.8 % (37-47); Hemoglobin 10.9 g/dL (12.0-15.0); Immature Granulocytes Count 0.040 X10^3/uL (0.0-0.0); Mean Corp Hgb Conc 30.4 g/dL (32-36); Mean Corpuscular Volume 97.0 fL (81-99); Mean Platelet Vol. 9.4 fl (6.2-12.0); NRBC Flagged by Analyzer 0 % (0-5); Platelet Count 197 K/mm3 (150-450); RBC Distribution Width CV 14.4 % (11.6-14.6); RBC Distribution Width SD 50.9 fl (35.1-43.9); Red Blood Count 3.69 M/mm3 (4.2-5.4); White Blood Count 4.8 K/mm3 (4.4-11.0)
[2024-09-09 12:53] LABS: AST(SGOT) 21 U/L (<=31); Alanine Aminotransfer ALT/SGPT 17 U/L (<=34); Albumin, Serum 4.4 g/dL (3.4-4.8); Alkaline Phosphatase 231 U/L (35-104); Anion Gap 14 (5-15); BUN 32 mg/dL (4-19); BUN/Creat Ratio 23.3 RATIO (10-20); Calcium,Total 9.8 mg/dL (7.6-11.0); Carbon Dioxide 19.7 mmol/L (21.0-32.0); Chloride 107 mmol/L (98-108); Globulin 3.1 g/dL (2.2-4.2); Glucose 198 mg/dL (70-99); Potassium 4.7 mmol/L (3.3-5.1)
[2024-09-09 13:00] LABS: Vitamin D,25 Hydroxy 39.1 ng/mL (30-100)
[2024-09-09 18:34] LABS: Xtra Tube Kwok EXTRA TUBE
== END | disposition home or self-care (01) ==
LOC: POLAB3 10:31
PROVIDERS: PCP Family Medicine Geriatric Medicine; Visit Provider Family Medicine Geriatric Medicine
DX: I10 Essential (primary) hypertension (principal); E11.65 Type 2 diabetes mellitus with hyperglycemia; N17.9 Acute kidney failure, unspecified; E55.9 Vitamin D deficiency, unspecified
CPT/HCPCS: 36415; 80053; 82306; 84443; 85025

== ENCOUNTER → 2024-11-26 | Outpatient (CLI) | payer MEDICARE, SELFPAY ==
[2024-11-26 09:40] LABS: Hematocrit 37.3 % (37-47); Hemoglobin 11.7 g/dL (12.0-15.0); Mean Corp Hgb Conc 31.4 g/dL (32-36); Mean Corpuscular Volume 94.9 fL (81-99); Mean Platelet Vol. 9.7 fl (6.2-12.0); Platelet Count 221 K/mm3 (150-450); RBC Distribution Width CV 13.2 % (11.6-14.6); RBC Distribution Width SD 45.8 fl (35.1-43.9); Red Blood Count 3.93 M/mm3 (4.2-5.4); White Blood Count 5.3 K/mm3 (4.4-11.0)
[2024-11-26 11:41] LABS: Albumin, Serum 4.3 g/dL (3.4-4.8); BUN 39 mg/dL (4-19); BUN/Creat Ratio 25.3 RATIO (10-20); Calcium,Total 10.0 mg/dL (7.6-11.0); Chloride 105 mmol/L (98-108); Glucose 217 mg/dL (70-99); Potassium 5.4 mmol/L (3.3-5.1)
[2024-11-26 11:44] LABS: Anion Gap 13 (5-15); Carbon Dioxide 21.5 mmol/L (21.0-32.0)
== END | disposition home or self-care (01) ==
LOC: LAB 08:37
PROVIDERS: PCP Family Medicine Geriatric Medicine; Referring Provider Internal Medicine Nephrology; Visit Provider Internal Medicine Nephrology
DX: N18.32 Chronic kidney disease, stage 3b (principal); D64.9 Anemia, unspecified
CPT/HCPCS: 36415; 80069; 85027

== ENCOUNTER → 2024-12-08 | Outpatient (CLI) | payer MEDICARE, SELFPAY ==
[2024-12-08 12:46] LABS: Hematocrit 35.4 % (37-47); Hemoglobin 10.9 g/dL (12.0-15.0); Immature Granulocytes Count 0.040 X10^3/uL (0.0-0.0); Mean Corp Hgb Conc 30.8 g/dL (32-36); Mean Corpuscular Volume 97.8 fL (81-99); Mean Platelet Vol. 9.9 fl (6.2-12.0); NRBC Flagged by Analyzer 0 % (0-5); Platelet Count 205 K/mm3 (150-450); RBC Distribution Width CV 13.2 % (11.6-14.6); RBC Distribution Width SD 46.7 fl (35.1-43.9); Red Blood Count 3.62 M/mm3 (4.2-5.4); White Blood Count 5.8 K/mm3 (4.4-11.0)
[2024-12-08 16:25] LABS: AST(SGOT) 21 U/L (<=31); Alanine Aminotransfer ALT/SGPT 15 U/L (<=34); Albumin, Serum 4.1 g/dL (3.4-4.8); Alkaline Phosphatase 140 U/L (35-104); Anion Gap 11 (5-15); BUN 37 mg/dL (4-19); BUN/Creat Ratio 21.4 RATIO (10-20); Calcium,Total 9.7 mg/dL (7.6-11.0); Carbon Dioxide 22.5 mmol/L (21.0-32.0); Chloride 106 mmol/L (98-108); Globulin 3.1 g/dL (2.2-4.2); Glucose 197 mg/dL (70-99); Potassium 5.5 mmol/L (3.3-5.1); Vitamin D,25 Hydroxy 33.4 ng/mL (30-100)
== END | disposition home or self-care (01) ==
LOC: POLAB3 12:25
PROVIDERS: PCP Family Medicine Geriatric Medicine; Referring Provider Family Medicine Geriatric Medicine; Visit Provider Family Medicine Geriatric Medicine
DX: E11.65 Type 2 diabetes mellitus with hyperglycemia (principal); I10 Essential (primary) hypertension; E55.9 Vitamin D deficiency, unspecified
CPT/HCPCS: 36415; 80053; 82306; 84443; 85025

== ENCOUNTER → 2024-12-14 | Outpatient (CLI) | payer MEDICARE, SELFPAY ==
[2024-12-14 12:45] LABS: Anion Gap 13 (5-15); BUN 33 mg/dL (4-19); BUN/Creat Ratio 21.4 RATIO (10-20); Calcium,Total 9.4 mg/dL (7.6-11.0); Carbon Dioxide 19.5 mmol/L (21.0-32.0); Chloride 104 mmol/L (98-108); Glucose 185 mg/dL (70-99); Potassium 4.5 mmol/L (3.3-5.1)
== END | disposition home or self-care (01) ==
LOC: LAB.FUTURE 10:54 → LAB 10:56
PROVIDERS: PCP Family Medicine Geriatric Medicine; Referring Provider Family Medicine Geriatric Medicine; Visit Provider Family Medicine Geriatric Medicine
DX: I10 Essential (primary) hypertension (principal)
CPT/HCPCS: 36415; 80048

== ENCOUNTER 2025-01-10 07:41 | Emergency (ER) | payer MEDICARE, SELFPAY ==
[2025-01-10] VITALS (17 sets, daily range): BP systolic 79–107; BP diastolic 57–82; PULSE 106–163; RESP 29–47; TEMP 36.1–36.2; O2SAT 83–94; BMI 29.0
--- NOTE | 2025-01-10 07:51 | CT_ITS ---
PROCEDURE: BRAIN/HEAD WITHOUT CONTRAST 01/10/2025 REASON FOR EXAM: TRAUMA TECHNIQUE: Procedure Code: CTBR Modality: CT Procedure: BRAIN/HEAD WITHOUT CONTRAST Coronal and Sagittal reconstruction series were provided. One or more dose reduction techniques were used (e.g., Automated exposure control, adjustment of the mA and/or kV according to patient size, use of iterative reconstruction technique. RADIATION DOSE SUMMARY: CTDlvol: 13.61 mGy DLP: 1042.03 mGycm COMPARISON: None. FINDINGS: Brain: Acute right parietal parenchymal hemorrhage and acute intraventricular hemorrhage seen in the four ventricles with hydrocephalus. White matter hypodensities consistent with chronic small-vessel disease. No midline shift. CSF Spaces: Unremarkable. Sinuses/Mastoids: Clear. Bones: No acute bony abnormalities. CT/Brain/Head without Contrast IMPRESSION: Acute right parietal parenchymal along with intraventricular hemorrhage seen i n the four ventricles with hydrocephalus. White matter hypodensities consistent with chronic small-vessel disease. No midline shift. Stroke Alert: Acute right parietal parenchymal along with intraventricular hem orrhage seen in the four ventricles with hydrocephalus. White matter hypodensities consistent with chronic small-vessel disease. No midline shift. The critical findings in the findings and impression above were relayed directl y by me by telephone to Walter Molina on 01/10/2025 at 8:33 am with readback verification. Reading Location: [facility]
--- NOTE | 2025-01-10 07:52 | EDS_ITS ---
HPI History of Present Illness Chief Complaint: Unresponsive Narrative Narrative: History and physical limited secondary to patient's current mental status. Obtained from family member. 74-year-old female presents via EMS with decreased responsiveness. She has past medical history of atrial fibrillation on Xarelto. Family member states that she fell in the shower yesterday evening. They state that they put her to bed. They checked on her at 4:30 in the morning, approximately 3 hours ago, and states that she wiggles her toes but was unresponsive. They checked on her again prior to arrival, and she would not awaken or open her eyes. They called EMS and they state that her sugar was in the 400s. Patient does not take insulin, but oral pills. [facility] Medical History History of echocardiogram Cardiology follow-up encounter Wears dentures Wears glasses Bladder disease Stroke/cerebrovascular accident Insulin dependent diabetes mellitus Arthritis Walker as ambulation aid Bruising Diabetes Former smoker Pulmonary embolism Benign essential HTN Aortic root dilatation Cardiomyopathy Chronic kidney disease, stage 3 Nonrheumatic aortic (valve) stenosis Nonrheumatic tricuspid (valve) insufficiency Nonrheumatic mitral (valve) insufficiency Hemorrhoids Atrophic vaginitis Mixed incontinence Postlaminectomy syndrome (02/01/16) Lung nodule (10/28/14) Lichen simplex chronicus (10/20/10) Left foot drop (04/24/13) Osteoarthritis Lumbar stenosis Degenerative joint disease of right knee History of colitis (10/19/10) Hyperlipidemia History of pulmonary embolus (PE) (10/30/06) Scoliosis Asthma History of DVT (deep vein thrombosis) (10/30/06) Anemia (04/10/17) History of syncope (10/01/17) Paroxysmal atrial fibrillation (03/13/18) DM2 (diabetes mellitus, type 2) Chronic bronchitis Syncope Home Medications Medication Instructions Recorded Last Taken Type fluticasone 100 mcg-salmeterol 50 1 puff inhalation BI D asthma 01/29/13 06/19/24 History mcg/dose blistr powdr for inhalation ferrous gluconate 324 mg (37.5 mg 325 mg PO BID iron 0 05/29/18 Unknown History iron) tablet albuterol sulfate 90 mcg/actuation 2 puff inhalation 4 X/DAY PRN asthma 12/05/21 Unknown History aerosol inhaler cetirizine 10 mg tablet 10 mg PO DAILY PRN allergy s ymptoms 06/21/22 Unknown History gabapentin 600 mg tablet 600 mg PO TID neuropathy 06/1006/19/24 History pioglitazone 30 mg tablet 30 mg PO DAILY diabetes 06/10 Unknown History rivaroxaban 15 mg tablet (Xarelto) 15 mg PO DAILY bloo d thinner #90 12/19/22 06/17/24 Rx tabs atorvastatin 40 mg tablet 40 mg PO DAILY cholesterol # 90 tabs 04/07/24 Unknown Rx solifenacin 5 mg tablet 5 mg PO QDAY overactive blad yenni 05/27/24 Unknown History ascorbic acid (vitamin C) 500 mg 500 mg PO DAILY suppl ement 06/09/24 Unknown History tablet citalopram 10 mg tablet 10 mg PO DAILY mood 06/09/24 Unknown History methocarbamol 500 mg tablet 250 - 500 mg PO BID PRN GA N muscle 06/09/24 Unknown History spasm acetaminophen 325 mg tablet 650 mg (2 x 325 mg) PO Q8 #0 tabs 06/30/24 Unknown Rx pantoprazole 40 mg tablet,delayed 40 mg PO BID 30 days #60 tabs 06/30/24 Unknown Rx release pantoprazole 40 mg tablet,delayed 40 mg PO BID 30 days #60 tabs 07/03/24 Unknown Rx release Allergy/AdvReac Type Severity Reaction Status Date / Time cider vinegar Allergy NEEDS Verified 01/10/25 07:49 FOLLOW-UP cottonseed oil Allergy NEEDS Verified 01/10/25 07:49 FOLLOW-UP grass pollen Allergy NEEDS Verified 01/10/25 07:49 FOLLOW-UP morphine Allergy Unknown Verified 01/10/25 07:49 oxycodone HCl (From Allergy Unknown Verified 01/10/25 07:49 OxyContin) propoxyphene HCl (From Allergy Unknown Verified 01/10/25 07:49 Darvon) wool Allergy NEEDS Verified 01/10/25 07:49 FOLLOW-UP chlorhexidine AdvReac Rash Verified 01/10/25 07:49 feathers AdvReac NEEDS Verified 01/10/25 07:49 FOLLOW-UP Family History Mother CAD (coronary artery disease) DVT (deep venous thrombosis) Hypertension Father Prostate cancer Sister Breast cancer Surgical History History of total right hip replacement (09/17/18) History of total right knee replacement (2008) History of hysterectomy (1999) History of bilateral salpingo-oophorectomy (1999) H/O transurethral destruction of bladder lesion (03/26/14) History of fractured kneecap (2007) History of partial knee replacement (2006) H/O thumb surgery (2003) Status post ORIF of fracture of ankle (1986) H/O tubal ligation (1988) History of laparoscopy (1999) History of lumbar laminectomy (11/05/12) Status post insertion of inferior vena caval filter (10/30/06) History of colonoscopy (05/17/11) History of (1988) Patellar tendon rupture History of knee replacement (09/02/06) Social History household members: family Smoking Status: Former smoker quit date: 02/18/69 alcohol intake: never substance use type: does not use caffeine: Yes Type: coffee Number of servings: 1 ROS ROS ED ROS Narrative Unable to obtain from patient. Per family, history of atrial fibrillation on Xarelto, diabetes [id number]. Had a fall in the shower yesterday evening. Decreased responsiveness 3 hours ago, worsening currently. Review of Systems ROS Unobtainable: due to mental status EXAM Physical Exam Narrative Exam Narrative: Afebrile. Vital signs noted. Cardiovascular examination irregularly irregular tachycardia. Lungs clear to auscultation bilaterally. Mild tachypnea. Abdomen soft and nontender. Does not awaken to sternal rub. Const Vital Signs: 01/10/25 07:43 01/10/25 08:11 01/10/25 08:13 Temperature 97.2 F L Temperature Source Oral Pulse Rate 143 H 121 H 121 H Respiratory Rate 38 H 47 H 47 H Blood Pressure 104/75 97/67 Blood Pressure Mean 84 77 Pulse Ox 94 93 93 Oxygen Delivery Method Nasal Cannula Oxygen Flow Rate (L/min) 6 01/10/25 08:15 01/10/25 08:30 01/10/25 08:45 Temperature Temperature Source Pulse Rate 129 H 147 H Respiratory Rate 47 H 41 H Blood Pressure 107/82 H 100/81 H 87/63 L Blood Pressure Mean 91 89 73 Pulse Ox 92 92 Oxygen Delivery Method Oxygen Flow Rate (L/min) 01/10/25 09:00 01/10/25 09:00 01/10/25 09:15 Temperature Temperature Source Pulse Rate 151 H 120 H Respiratory Rate 40 H 39 H Blood Pressure 79/66 L 79/66 L 86/65 L Blood Pressure Mean 70 72 73 Pulse Ox 93 93 Oxygen Delivery Method Nasal Cannula Oxygen Flow Rate (L/min) 6 01/10/25 09:30 01/10/25 09:30 01/10/25 09:45 Temperature 97.0 F L Temperature Source Temporal Pulse Rate 151 H 115 H Respiratory Rate 37 H 38 H Blood Pressure 91/81 H 91/61 85/57 L Blood Pressure Mean 84 72 67 Pulse Ox 92 92 Oxygen Delivery Method Nasal Cannula Oxygen Flow Rate (L/min) 6 01/10/25 10:00 01/10/25 10:00 01/10/25 10:15 Temperature Temperature Source Pulse Rate 135 H 154 H 163 H Respiratory Rate 38 H 39 H 39 H Blood Pressure 85/57 L 88/68 L Blood Pressure Mean 66 76 Pulse Ox 90 89 92 Oxygen Delivery Method Nasal Cannula Oxygen Flow Rate (L/min) 6 01/10/25 10:30 01/10/25 11:00 01/10/25 11:30 Temperature Temperature Source Pulse Rate 123 H 106 H 107 H Respiratory Rate 39 H 39 H 29 H Blood Pressure 96/76 93/74 Blood Pressure Mean 82 80 Pulse Ox 92 83 92 Oxygen Delivery Method Room Air Nasal Cannula Oxygen Flow Rate (L/min) 6 01/10/25 11:41 01/10/25 12:00 Temperature 97.2 F L Temperature Source Pulse Rate 107 H 108 H Respiratory Rate 29 H 40 H Blood Pressure 93/74 99/74 Blood Pressure Mean 80 82 Pulse Ox 92 90 Oxygen Delivery Method Nasal Cannula Oxygen Flow Rate (L/min) 6 MDM MDM MDM Narrative Medical decision making narrative: Differential diagnosis includes but not limited to intracranial hemorrhage versus diabetic ketoacidosis. I reviewed her CODE STATUS in the computer and she has had DNR CCA with no intubation as ordered by her primary care provider Dr. Kellogg in May of this year. 0 840: I received a call from the radiologist regarding the CT of the brain after my initial review. He confirms that the patient has a right parietal intraparenchymal hemorrhage as well as intraventricular bleeding within the 4 ventricles with hydrocephalus. I then discussed the patient with her son who is currently at the bedside. Given the severity of her condition, it was decided that hospice should be consulted and she will be made DO NOT RESUSCITATE comfort care only. I did review her laboratory work that has returned for her workup for DKA. She has slightly elevated white count of 12.1 with hemoglobin 11.5, hematocrit 36.2, platelet count 219. Potassium is slightly elevated at 5.3, anion gap of 17, BUN of 37 and creatinine 1.6. Beta hydroxybutyrate 0.4. This is slightly elevated. However, on her blood gas, she has a pH of 7.4 and pCO2 of 29.8. Patient will be discussed with hospice. Of note, I had a discussion with her son as well and answered all questions. He was willing to sign the DNR comfort care only [facility] form. Additionally, family agreeable to inpatient hospice. Patient will be transferred to hospice care. History & Record Review Discussion w/independent historian: Family Additional record(s) reviewed:: Prior ED visit and Prior labs Lab Data Attestation: I reviewed the patient's lab results. Labs: Laboratory Results - last 24 hr 01/10/25 01/10/25 01/10/25 07:45 08:28 08:35 WBC 12.1 H RBC 3.85 L Hgb 11.5 L Hct 36.2 L MCV 94.0 MCH 29.9 MCHC 31.8 L RDW Std Deviation 46.7 H RDW Coeff of [place] 13.6 Plt Count 219 MPV 9.4 Immature Gran % (Auto) 0.700 Neut % (Auto) 88.6 H Lymph % (Auto) 5.5 L [place] % (Auto) 4.9 Eos % (Auto) 0.1 Baso % (Auto) 0.2 Absolute Neuts (auto) 10.7 H Absolute Lymphs (auto) 0.67 L Nucleated RBC % 0 Sodium 139 Potassium 5.3 H Chloride 103 Carbon Dioxide 19.6 L Anion Gap 17 H BUN 37 H Creatinine 1.60 H Estim Creat Clear Calc 27.54 L Est GFR (MDRD) Non-Af 34 L BUN/Creatinine Ratio 22.9 H Glucose 326 H Calcium 10.3 Total Bilirubin 0.78 AST 57 H ALT 39 H Alkaline Phosphatase 139 H Total Protein 8.1 Albumin 4.2 Globulin 3.9 Albumin/Globulin Ratio 1.1 b-Hydroxybutyric mmol/L 0.4 H Urine Color Yellow Urine Clarity Sl. Cloudy Urine pH 6.0 Ur Specific [place] 1.010 Urine Protein 100 H Urine Glucose (UA) 1000 H Urine Ketones 5 H Urine Occult Blood 250 H Urine Nitrite Negative Urine Bilirubin Negative Urine Urobilinogen Normal Ur Leukocyte Esterase 100 H Urine RBC 10-25 SEEN Urine WBC 10-25 SEEN Ur Squamous Epith Cells 0 SEEN Urine Bacteria 3+ Urine Mucus 0 SEEN POC Glucose 268 H ABG Data ABG results: ABG 01/10/25 07:54 Specimen Type ART Sample Site L Radial pH 7.41 Bicarbonate Actual 18.7 L Total CO2 20 Base Excess -6 L O2 Saturation 89 L O2 % 4.0 ABG pCO2 29.8 L ABG pO2 55 L O2 Delivery Device Cannula Vent Mode Not entered Radiography Diagnostic Testing: Clinical Impression(s) from Imaging Studies Brain CT 01/10/25 07:51 IMPRESSION: Acute right parietal parenchymal along with intraventricular hemorrhage seen in the four ventricles with hydrocephalus. White matter hypodensities consistent with chronic small-vessel disease. No midline shift. Stroke Alert: Acute right parietal parenchymal along with intraventricular hemorrhage seen in the four ventricles with hydrocephalus. White matter hypodensities consistent with chronic small-vessel disease. No midline shift. The critical findings in the findings and impression above were relayed directly by me by telephone to Walter Molina on 01/10/2025 at 8:33 am with readback verification. Reading Location: [facility] Chest X-Ray 01/10/25 08:00 IMPRESSION: Cardiomegaly. Atherosclerosis. No evidence of an acute process. Reading Location: [id number] Cervical Spine CT 01/10/25 08:02 IMPRESSION: No acute injury to the cervical spine. Reading Location: [facility] Management Discussion w/another healthcare provider: Other ([facility]) Critical Care Time Critical Care Time: Yes Critical care time (excluding procedures): 30-74 minutes (32), Including time spent:, Discussing w/Patient &/or Family/Multimedia Project Manager, Discussing w/Consultants and Arranging Admission or Transfer Discharge Plan Triage Chief Complaint: Unresponsive ED Provider: Walter Molina Dx/Rx/DC Orders Clinical Impression: Intraparenchymal hemorrhage of brain, Intraventricular hemorrhage, DNR (do not resuscitate) discussion, Unresponsive Prescriptions: No Action gabapentin 600 mg tablet 600 mg PO TID cetirizine 10 mg tablet 10 mg PO DAILY PRN (Reason: allergy symptoms) pioglitazone 30 mg tablet 30 mg PO DAILY solifenacin 5 mg tablet 5 mg PO QDAY fluticasone propion-salmeterol 1 PUFF inhaler 1 puff INHALATION BID albuterol sulfate 90 mcg/actuation HFA aerosol inhaler 2 puff inhalation 4X/DAY PRN (Reason: asthma) ferrous gluconate 324 MG tablet 325 mg PO BID methocarbamol 500 mg tablet 250 - 500 mg PO BID PRN PRN (Reason: muscle spasm) citalopram 10 mg tablet 10 mg PO DAILY ascorbic acid (vitamin C) 500 mg tablet 500 mg PO DAILY acetaminophen 325 mg Tablet 650 mg PO Q8 Qty: 0 0RF pantoprazole 40 mg Tablet,Delayed Release (Dr/Ec) 40 mg PO BID 30 Days Qty: 60 0RF pantoprazole 40 mg tablet,delayed release (DR/EC) 40 mg PO BID 30 Days Qty: 60 0RF Xarelto 15 mg tablet 15 mg PO DAILY Qty: 90 3RF Rx Instructions: must administer with evening meal atorvastatin 40 mg tablet 40 mg PO DAILY Qty: 90 3RF Primary Care Provider: Quentin Kellogg Chi Referrals: Quentin Kellogg Chi, MD [Primary Care Provider, Geriatrics] Print Language: Bahamian Disposition Disposition: Hospice in Medical Facility Discharge Location: [facility] Discharge Date/Time: 01/10/25 12:09
[2025-01-10 07:57] LABS: Base Excess -6 mmol/L (-2 to +2); FI02 4.0; PO2 55 mmHG (75-100); SITE L Radial; SO2 89 % (94-98)
--- NOTE | 2025-01-10 08:00 | EKG12_ITS ---
Test Reason : UNRESP Blood Pressure : */* mmHG Vent. Rate : 127 BPM Atrial Rate : 293 BPM P-R Int : * ms QRS Dur : 88 ms QT Int : 332 ms P-R-T Axes : * 29 79 degrees QTcB Int : 482 ms Atrial flutter with variable A-V block Abnormal ECG Confirmed by ZEENAT TORRES, KRIS ([id number]), editorial intern CUATE BARRETO ([id number]) on 01/11/2025 1:07:21 PM Referred By: AMELIA Confirmed By: KRIS EPPERSON MD
--- NOTE | 2025-01-10 08:00 | RAD_ITS ---
PROCEDURE: CHEST 1 VIEW (PORTABLE supine) completed date REASON FOR EXAM: DECREASED RESPONSIVENESS TECHNIQUE: Frontal view of the chest. COMPARISON: June 09, 2024 FINDINGS: Hardware: Hardware there are EKG leads and clothing artifacts projected over the chest. Heart: Are the heart is moderately enlarged. Lungs: There is partial atelectasis at the right lower lung zone. The left lung is clear. Bones: The bones are unremarkable. RAD/Chest 1 View (Portable) IMPRESSION: Cardiomegaly. Atherosclerosis. No evidence of an acute process. Reading Location: [id number]
[2025-01-10 08:02] LABS: Hematocrit 36.2 % (37-47); Hemoglobin 11.5 g/dL (12.0-15.0); Immature Granulocytes Count 0.090 X10^3/uL (0.0-0.0); Mean Corp Hgb Conc 31.8 g/dL (32-36); Mean Corpuscular Volume 94.0 fL (81-99); Mean Platelet Vol. 9.4 fl (6.2-12.0); NRBC Flagged by Analyzer 0 % (0-5); Platelet Count 219 K/mm3 (150-450); RBC Distribution Width CV 13.6 % (11.6-14.6); RBC Distribution Width SD 46.7 fl (35.1-43.9); Red Blood Count 3.85 M/mm3 (4.2-5.4); White Blood Count 12.1 K/mm3 (4.4-11.0)
--- NOTE | 2025-01-10 08:02 | CT_ITS ---
PROCEDURE: SPINE CERVICAL WITHOUT CONTRAS 01/10/2025 REASON FOR EXAM: TRAUMA TECHNIQUE: Procedure Code: CTSPC Modality: CT Procedure: SPINE CERVICAL WITHOUT CONTRAS Coronal and Sagittal reconstruction series were provided. One or more dose reduction techniques were used (e.g., Automated exposure control, adjustment of the mA and/or kV according to patient size, use of iterative reconstruction technique. RADIATION DOSE SUMMARY: CTDlvol: - mGy DLP: - mGycm COMPARISON: None FINDINGS: Alignment: Retrolisthesis C3 on C4 by 3 mm and C4 on C5 by 2 mm. Vertebrae: No acute bony abnormalities. Soft Tissues: No soft tissue abnormalities. Disc levels: Multilevel degenerate changes predominantly at C3-C4 where there is disc space narrowing, facet joint arthropathy, severe bilateral foramina stenosis and moderate canal stenosis. CT/Spine Cervical without Contras IMPRESSION: No acute injury to the cervical spine. Reading Location: [id number]
--- OUTSIDE RECORDS SUMMARY | 2025-01-10 08:06 | XMS RPT_ITS | CCD ---
Author Organization [facility] Care Team Providers Care Roll Forger Name Role Phone Bernardo Alfaro MD Primary Care Provider Dr. Bernardo Alfaro Primary Care Provider Dr. Bernardo Alfaro Referring Provider Roof MAINFRAME SYSTEMS PROGRAMMER, MAINFRAME SYSTEMS PROGRAMMER-C Raghavendra Cohn Attending Provider Bernardo Alfaro MD Primary Care Provider Dr. Bernardo Alfaro Referring Provider Roof MAINFRAME SYSTEMS PROGRAMMER, MAINFRAME SYSTEMS PROGRAMMER-C Raghavendra Cohn Attending Provider Valdez, Dr. Quentin Hensley Primary Care Provider Valdez, Quentin Hensley Primary Care Provider Dr. Bernardo Alfaro Referring Provider Roof MAINFRAME SYSTEMS PROGRAMMER, MAINFRAME SYSTEMS PROGRAMMER-C Raghavendra Cohn Attending Provider Valdez, Dr. Quentin Hensley Primary Care Provider Valdez, Dr. Quentin Hensley Primary Care Provider Valdez, Dr. Quentin Hensley Referring Provider Bhavana, Dr. Weeks Attending Provider Valdez, Quentin Hensley Primary Care Provider Valdez, Dr. Quentin Hensley Primary Care Provider Valdez, Dr. Quentin Hensley Referring Provider Roof MAINFRAME SYSTEMS PROGRAMMER, MAINFRAME SYSTEMS PROGRAMMER-C Raghavendra Cohn Attending Provider Valdez, Dr. Quentin Hensley Primary Care Provider Valdez, Dr. Quentin Hensley Referring Provider Roof MAINFRAME SYSTEMS PROGRAMMER, MAINFRAME SYSTEMS PROGRAMMER-C Raghavendra Cohn Attending Provider Dominic TORRES, Bernardo Cohn Primary Care Provider Quentin Kellogg Chi Primary Care Provider [phone] Valdez TORRES, Dr. Quentin Hensley Primary Care Provider [phone] Dr. Alma Olmos DO Attending Provider [phone] New Villafuerte DO Attending Provider Dr. New Villafuerte DO Emergency Provider Valdez TORRES, Dr. Quentin Hensley Attending Provider Valdez TORRES, Dr. Quentin Hensley Referring Provider Teo Lundberg Attending Provider Clifton TORRES, Dr. Mccormack Emergency Provider Dr. Mitchel Hightower DO Admit Provider Unavail able Dr. Mitchel Hightower DO Other Provider Unavail able Dr. Nathen George DO Attending Provider Dr. Sivakumar Shannon MD Other Provider Dr. Nathen George DO Other Provider ETHEL ANDUJAR Attending Unavailable VALDEZ, QUENTIN CHI Primary Care Unavailable ARGELIA THOMSON Attending Unavailable VALDEZ, QUENTIN CHI Primary Care Unavailable ARGELIA THOMSON Referring Unavailable VALDEZ, QUENTIN CHI Primary Care Unavailable Dr. Quentin Kellogg MD, Chi Primary Care Provider Dr. Alma Olmos DO Attending Provider [phone] New Villafuerte DO Attending Provider [phone] New Villafuerte DO Emergency Provider [phone] Valdez TORRES, Dr. Quentin Hensley Attending Provider Dr. Quentin Kellogg MD, Chi Referring Provider [phone] Teo Lundberg Attending Provider Clifton TORRES, Dr. Mccormack Emergency Provider Dr. Mitchel Hightower DO Admit Provider Unavail able Hightower DO, Dr. Grullon Other Provider Unavail able Shiva TORRES, Dr. Shaver Other Provider Gladys TORRES, Dr. Grullon Attending Provider Unavaila donny George DO, Dr. Sena Other Provider Ariel DO, Dr. Sena Attending Provider [phone] Gladys TORRES, Dr. Grullon Other Provider Unavailable Valdez TORRES, Dr. Quentin Hensley Admit Provider Valdez TORRES, Dr. Quentin Hensley Other Provider Friend , Dr. Sim Attending Provider Nikky OBRIEN, Dr. Sim Other Provider Valdez TORRES, Dr. Quentin Hensley Primary Care Provider [phone] Gladys TORRES, Dr. Grullon Attending Provider Unavaila donny George DO, Dr. Sena Other Provider Ariel DO, Dr. Sena Attending Provider [phone] Gladys TORRES, Dr. Grullon Other Provider Unavailable Valdez TORRES, Dr. Quentin Hensley Admit Provider Valdez TORRES, Dr. Quentin Hensley Other Provider Friend , Dr. Sim Attending Provider Nikky OBRIEN, Dr. Sim Other Provider Valdez TORRES, Dr. Quentin Hensley Primary Care Provider Durga TORRES, Dr. Whitfield Attending Provider Nickolas OBRIEN, Dr. Marquez Other Provider Alma Olmos Consulting Unavailable Valdez, Quentin Chi Primary Care Unavailable Valdez, Quentin Chi Attending Unavailable Valdez, Quentin Chi Referring Unavailable Valdez, Quentin Chi Attending Unavailable Valdez, Quentin Chi Primary Care Unavailable Valdez, Quentin Chi Attending Unavailable Valdez, Quentin Chi Primary Care Unavailable Valdez, Quentin Chi Primary Care Unavailable Valdez, Quentin Chi Attending Unavailable Valdez, Quentin Chi Referring Unavailable Roney Sher Attending Unavailable Valdez, Quentin Chi Referring Unavailable Valdez, Quentin Chi Primary Care Unavailable Mitchel Hightower Consulting Unavailable Mitchel Hightower Admitting Unavailable Valdez, Quentin Chi Primary Care Unavailable Mitchel Graham Attending Unavailable Sivakumar Shannon Consulting Unavailable Nathen George Consulting Unavailable Valdez, Quentin Chi Primary Care Unavailable Valdez, Quentin Chi Attending Unavailable Valdez, Quentin Chi Referring Unavailable Alma Olmos Attending Unavailable Nickolas, Alma Referring Unavailable Valdez, Quentin Chi Primary Care Unavailable New Villafuerte Attending Unavailable Valdez, Quentin Chi Primary Care Unavailable Alma Olmos Attending Unavailable Valdez, Quentin Chi Primary Care Unavailable Friend, Roney Consulting Unavailable Friend, Roney Attending Unavailable Valdez, Quentin Chi Referring Unavailable Valdez, Quentin Chi Primary Care Unavailable Valdez, Quentin Chi Referring Unavailable Valdez, Quentin Chi Primary Care Unavailable Micky Bateman Attending Unavailable Friend, Roney Attending Unavailable Valdez, Quentin Chi Referring Unavailable Valdez, Quentin Chi Consulting Unavailable Valdez, Quentin Chi Admitting Unavailable Valdez, Quentin Chi Primary Care Unavailable Mitchel Hightower Consulting Unavailable Mitchel Hightower Admitting Unavailable Valdez, Quentin Chi Primary Care Unavailable Mitchel Graham Attending Unavailable Sivakumar Shannon Consulting Unavailable Nathen George Consulting Unavailable Mitchel Graham Consulting Unavailable Nathen George Attending Unavailable Alma Olmos Attending Unavailable Valdez, Quentin Chi Primary Care Unavailable Mitchel Hightower Attending Unavailable Valdez, Quentin Chi Referring Unavailable Valdez, Quentin Chi Primary Care Unavailable Teo Miller Attending Unavailable Valdez, Quentin Chi Referring Unavailable Valdze, Quentin Chi Attending Unavailable Valdez, Quentin Chi Admitting Unavailable Valdez, Quentin Chi Primary Care Unavailable Allergies Allergy Classification Reported Allergen(s) Allergy Type Date of Onset Reaction(s) Facility (20 sources) Chlorhexidine; Translations: [CHLORHEXIDINE] Drug Allergy [address] [facility] (20 sources) Feather; Translations: [FEATHERS] Drug Allergy 5 Other: See Comments [facility] Work Phone: (20 sources) Grass pollen; Translations: [GRASS POLLEN] Drug Allergy [address] [facility] Work Phone: (20 sources) Morphine; Translations: [MORPHINE] Drug Allergy [address] [facility] (20 sources) Propoxyphene; Translations: [PROPOXYPHENE HCL] Drug Allergy [address] [facility] (20 sources) Cotton; Translations: [COTTON] Allergy to substance 5 Other: See Comments [facility] Work Phone: (20 sources) Vinegar; Translations: [VINEGAR] Food Allergy 5 Other: See Comments [facility] Work Phone: (20 sources) Wool; Translations: [WOOL] Allergy to substance 5 Other: See Comments [facility] Work Phone: (20 sources) oxyCODONE; Translations: [oxycodone HCl] Drug Allergy [address] [facility] (5 sources) grass Allergy to substance [address] [facility] Work Phone: (20 sources) CIDER VINEGAR Drug Allergy 2 NEEDS FOLLOW-UP [facility] (20 sources) cottonseed oil Allergy to substance 2 NEEDS FOLLOW-UP [facility] (1 source) Chlorhexidine Drug Allergy [address] [facility] Repository (1 source) CIDER VINEGAR Drug Allergy [address] [facility] Repository (1 source) Morphine Drug Allergy [address] [facility] Repository (1 source) Propoxyphene Drug Allergy [address] [facility] Repository (1 source) cottonseed oil Drug allergy (disorder) [address] [facility] Repository Medications Current Medications Medication Drug Class(es) Dates Sig (Normalized) Sig (Original) acetaminophen 325 mg oral tablet (20 sources) Start: 06-15-2024 End: 06-30-2024 take 2 tablets by mouth every eight hours Acetaminophen 325 mg Tablet Active 650 mg PO EVERY 8 HOURS 0 0 June 30, 2024 12:00am Start: 12-05-2021 End: 06-15-2024 take 1 tablet by mouth every eight hours Acetaminophen (Tylenol Arthritis Pain) 650 mg tablet extended release Discontinued 650 mg PO Q8H December 05, 2021 12:00am June 15, 2024 8:48am [id number] 200 actuat albuterol 0.09 mg/actuat metered dose inhaler (20 sources) beta2-Adrenergic Agonist Start: 12-05-2021 Albut lorelei Sulfate 90 mcg/actuation HFA aerosol inhaler Active 2 NMA INHALATION 4 TIMES DAILY as needed for asthma December 05, 2021 2:54pm Start: 12-05-2021 Start: 12-05-2021 take 1 puff(s) by in halation four times daily Albuterol Sulfate Active 2 PUFF INHALATION 4 TIMES DAILY December 05, 2021 2:54pm Start: 02-20-2021 End: 05-21-2021 albuterol (PROVENTIL) 2.5 mg /3 mL (0.083 %) nebulizer solution Indications: Moderate persistent asthma with acute exacerbation (HCC) Use 3 mL via nebulizer every 4 hours as needed for wheezing/shortness of breath. Use over 5-15minutes. 90 mL 2 02/20/2021 Active Start: 02-03-2021 take 2 puff(s) by in halation every four hours as needed for wheezing albuterol HFA (PROVENTIL HFA) 90 mcg/actuation inhaler Inhale 2 Puffs as instructed every 4 hours as needed for wheezing/shortness of breath. MAY GIVE AVAILABLE EQUIVALENT ALBUTEROL HFA INHALER 3 Each 3 02/03/2021 Active Start: 04-23-2019 End: 06-18-2024 take 2.5 mg by inhalation every four hours as needed for wheezing Albuterol Sulfate 2.5 mg /3 mL (0.083 %) solution for nebulization Discontinued 2.5 mg INHALATION Q4H as needed for shortness of breath or wheezing April 23, 2019 1:00am June 18, 2024 3:31pm Start: 04-23-2019 End: 06-18-2024 Start: 01-29-2013 take 6.7 g by inhala tion four times daily Albuterol Sulfate Active 6.7 GM IH 4 TIMES DAILY January 29, 2013 3:21pm Start: 01-29-2013 End: 12-05-2021 Albuterol Sulfate 6.7 GM HFA aerosol inhaler Discontinued 6.7 g IH 4 TIMES DAILY January 29, 2013 1:00am December 05, 2021 3:04pm asthma Start: 01-29-2013 End: 12-05-2021 Albuterol Sulfate 6.7 GM HFA aerosol inhaler Discontinued 6.7 g IH 4 TIMES DAILY January 29, 2013 1:00am December 05, 2021 3:04pm Start: 01-29-2013 End: 12-05-2021 take 6.7 g by inhalation four times daily Albuterol Sulfate Discontinued 6.7 GM IH 4 TIMES DAILY January 29, 2013 12:00am December 05, 2021 2:04pm Start: 01-29-2013 End: 12-05-2021 take 6.7 g by inhalation four times daily Albuterol Sulfate Discontinued 6.7 GM IH 4 TIMES DAILY January 29, 2013 1:00am December 05, 2021 3:04pm Start: 01-29-2013 take 6.7 g by inhala tion four times daily Albuterol Sulfate Active 6.7 GM IH 4 TIMES DAILY January 29, 2013 1:00am Comment on above: Use 3 mL via nebuliz er every 4 hours as needed for wheezing/shortness of breath. Use over 5-15minutes. Inhale 2 Puffs as in structed every 4 hours as needed for wheezing/shortness of breath. MAY GIVE AVAILABLE EQUIVALENT ALBUTEROL HFA INHALER amoxicillin 500 mg oral capsule (2 sources) Penicillin-class Antibacterial Start: 12-20-19 End: 12-27-19 24 take 1 capsule by mouth twice daily amoxicillin (AMOXIL) 500 mg capsule Indications: Urinary tract infection without hematuria, site unspecified Take 1 capsule by mouth two times a day for 7 days. 14 capsule 12/20/2023 12/27/2023 Active amoxicillin 875 mg / clavulanate 125 mg oral tablet (2 sources) Penicillin-class Antibacterial Start: 05-10-19 End: 05-20-19 take 1 tablet by mouth twice daily amoxicillin-clavul anic acid (AUGMENTIN) 875-125 mg per tablet Indications: Bacterial pneumonia Take 1 tablet by mouth twice daily for 10 days. 20 tablet 0 05/09/2021 05/19/2021 Active Comment on above: Take 1 tablet by chris twice daily for 10 days. ascorbic acid 500 mg oral tablet (13 sources) Vitamin C Start: 06-10-19 25 take 1 tablet by mouth once daily Ascorbic Acid (Vitamin C) 500 mg tablet Active 500 mg PO DAILY June 09, 2024 12:00am supplement ascorbic acid (V ITAMIN C ORAL) Take by mouth. Active ascorbic acid (V ITAMIN C ORAL) Take by mouth. 0 Active Comment on above: Take by mouth. Ascorbate Calcium-Bioflavonoid (20 sources) Vitamin C Start: 05-05-2018 Ascorbate Calcium-Bioflavonoid Active 1 EACH PO DAILY May 05, 2018 10:25am Start: 05-05-2018 End: 12-05-2021 take 1 tablet by mouth once daily Ascorbate Calcium-Bioflavonoid 1 EACH tablet Discontinued 1 NMA PO DAILY May 05, 2018 12:00am December 05, 2021 2:59pm supplement Start: 05-05-2018 End: 12-05-2021 Start: 05-05-2018 End: 12-05-2021 take 1 tablet by mouth once daily Ascorbate Calcium-Bioflavonoid 1 EACH tablet Discontinued 1 NMA PO DAILY May 05, 2018 12:00am December 05, 2021 2:59pm Start: 05-05-2018 End: 12-05-2021 Ascorbate Calcium-Bioflavono id Discontinued 1 EACH PO DAILY May 04, 2018 11:00pm December 05, 2021 1:59pm Start: 05-05-2018 End: 12-05-2021 Ascorbate Calcium-Bioflavono id Discontinued 1 EACH PO DAILY May 05, 2018 12:00am December 05, 2021 2:59pm Start: 05-05-2018 Ascorbate Calc ium-Bioflavonoid Active 1 EACH PO DAILY May 05, 2018 12:00am End: 12-19-2023 take 1 tablet by mouth twice daily ASCORBIC ACID/BIOFLAVONOIDS (MELANIE C ORAL) Take 1 tablet by mouth twice daily. 12/19/2023 Discontinued take 1 tablet by chris th twice daily ASCORBIC ACID/BIOFLAVONOIDS (MELANIE C ORAL) Take 1 tablet by mouth twice daily. Active take 1 tablet by chris th twice daily ASCORBIC ACID/BIOFLAVONOIDS (MELANIE C ORAL) Take 1 tablet by mouth twice daily. 0 Active Comment on above: Take 1 tablet by chris th twice daily. benzonatate 200 mg oral capsule (20 sources) Non-narcotic Antitussive Start: 1 End: 2 take 1 capsule by mouth every eight hours as needed Benzonatate 200 mg capsule Take 1 capsule by mouth three times daily as needed. 21 capsule 05/27/2021 Active Comment on above: Take 1 capsule by mo [facility] three times daily as needed. Blood-Glucose Meter (TRUE METRIX GLUCOSE METER) [facility] [place] (20 sources) Start: Blood-Glucose Meter (TRUE METRIX GLUCOSE METER) [facility] [place] Indications: Controlled type 2 diabetes mellitus with complication, without long-term current use of insulin (HCC) Use daily as directed. Dx: E11.8 Insulin: No 1 Each 12/05/2017 Active Start: 12-05-2017 Blood-Glucose Meter (TRUE METRIX GLUCOSE METER) [facility] [place] Indications: Controlled type 2 diabetes mellitus with complication, without long-term current use of insulin (HCC) Use daily as directed. Dx: E11.8 Insulin: No 1 Each 0 12/05/2017 Active Comment on above: Use daily as directe d. Dx: E11.8 Insulin: No cetirizine hydrochloride 10 mg oral tablet (20 sources) Histamine-1 Receptor Antagonist Start: take 1 tablet by mouth once daily as needed Cetirizine 10 mg tablet Active 10 mg PO DAILY as needed for allergy symptoms June 21, 2022 12:00am Start: 03-28-2021 End: 05-18-2021 take 1 tablet by mouth once daily as needed Cetirizine 10 mg tablet Active 10 mg PO DAILY as needed for allergy symptoms June 21, 2022 12:00am Comment on above: Take 1 tablet by [facility] once daily. citalopram 10 mg oral tablet (4 sources) Serotonin Reuptake Inhibitor Start: 06-09-2024 take 1 tablet by mouth once daily Citalopram 10 mg tablet Active 10 mg PO DAILY June 09, 2024 12:00am mood estradiol 0.01 mg vaginal insert (20 sources) Estrogen Start: 04-18-2022 Estradiol (VAGIFEM) 10 mcg vaginal tablet Use 1 tablet vaginally every Saturday and Saturday. 30 tablet 4 04/18/2022 Active Start: 04-18-2022 Estradiol (VAG IFEM) 10 mcg vaginal tablet Use 1 tablet vaginally every Saturday and Saturday. 30 tablet 4 04/18/2022 Active Start: 12-05-2021 End: 06-09-2024 Estradiol 10 mcg tablet Disc ontinued 10 ug VAGINAL .QMR December 05, 2021 3:03pm June 09, 2024 10:51pm hormone Start: 12-05-2021 End: 06-09-2024 Start: 04-16-2021 End: 04-16-2022 Estradiol (VAGIFEM) 10 mcg v aginal tablet Use 1 tablet vaginally every Saturday and Saturday. 20 tablet 5 04/16/2021 04/16/2022 Discontinued Start: 01-29-2013 End: 12-05-2021 Estradiol 10 MCG tablet Disc ontinued 10 ug VG SUWE January 29, 2013 1:00am December 05, 2021 3:04pm hormone Start: 01-29-2013 End: 12-05-2021 Start: 01-29-2013 End: 12-05-2021 Estradiol Active 10 MCG VAGI NAL .QMR December 05, 2021 3:03pm Comment on above: Use 1 tablet vaginal ly every Saturday and Saturday. ferrous gluconate 324 mg oral tablet (20 sources) Start: 05-29-2018 take 325 mg by mouth twice daily Ferrous Gluconate Active 325 MG PO TWICE A DAY May 29, 2018 8:26am Start: 10-02-2017 End: 05-29-2018 Ferrous Gluconate 324 MG tab let Active 325 mg PO TWICE A DAY May 29, 2018 8:26am iron Start: 10-02-2017 End: 05-29-2018 take 1 tablet by mouth once daily at mealtime Ferrous Gluconate 325 MG tablet Discontinued 325 mg PO DAILY WITH MEALS 30 0 October 02, 2017 12:00am May 29, 2018 8:26am ferrous sulfate 325 mg oral tablet (20 sources) Start: 07-15-2018 take 1 tablet by mouth twice daily ferrous sulfate (IRON) 325 mg (65 mg iron) tablet Take 1 tablet by mouth twice daily. 100 tablet 07/15/2018 Active End: 12-19-2023 ferrous sulfate (IRON ORAL) Take by mouth. 12/19/2023 Discontinued ferrous sulfate (IRON ORAL) Take by mouth. Active ferrous sulfate (IRON ORAL) Take by mouth. 0 Active Comment on above: Take 1 tablet by chris th twice daily. Take by mouth. fluticasone propionate 0.05 mg/actuat metered dose nasal spray (20 sources) Corticosteroid Start: 022 take 2 spray(s) by mouth once daily fluticasone (FLONASE) 50 mcg/actuation nasal spray Indications: Allergic rhinitis, unspecified seasonality, unspecified trigger Use 2 Sprays in each nostril once daily. Rinse mouth after use. 3 Each 3 03/28/2021 Active Comment on above: Use 2 Sprays in each nostril once daily. Rinse mouth after use. fluticasone / salmeterol (20 sources) Corticosteroid, beta2-Adrenergic Agonist Start: take 1 puff(s) by inhalation twice daily fluticasone-salmeter ol (ADVAIR DISKUS) 100-50 mcg/dose inhaler Indications: Uncomplicated asthma, unspecified asthma severity, unspecified whether persistent (HCC) Inhale 1 Puff as instructed twice daily. Finishing her supply. 3 Each 3 05/05/2021 Active Start: 05-05-2021 take 1 puff(s) by in halation twice daily fluticasone-salmeterol (ADVAIR DISKUS) 100-50 mcg/dose inhaler Indications: Uncomplicated asthma, unspecified asthma severity, unspecified whether persistent Inhale 1 Puff as instructed twice daily. Finishing her supply. 3 Each 3 05/05/2021 Active Start: 01-29-2013 take 1 puff(s) by in halation twice daily Fluticasone Propion-Salmeterol Active 1 PUFF INHALATION TWICE A DAY January 29, 2013 3:26pm Start: 01-29-2013 take 1 puff(s) by in halation twice daily Fluticasone Propion-Salmeterol 1 PUFF inhaler Active 1 NMA INHALATION TWICE A DAY January 29, 2013 1:00am asthma Start: 01-29-2013 Start: 01-29-2013 take 1 puff(s) by in halation twice daily Fluticasone Propion-Salmeterol 1 PUFF inhaler Active 1 NMA INHALATION TWICE A DAY January 29, 2013 1:00am Start: 01-29-2013 take 1 puff(s) by in halation twice daily Fluticasone Propion-Salmeterol Active 1 PUFF INHALATION TWICE A DAY January 29, 2013 12:00am Start: 01-29-2013 take 1 puff(s) by in halation twice daily Fluticasone Propion-Salmeterol Active 1 PUFF INHALATION TWICE A DAY January 29, 2013 1:00am Comment on above: Inhale 1 Puff as ins tructed twice daily. Finishing her supply. gabapentin 600 mg oral tablet (20 sources) Anti-epileptic Agent Start: 06-21-2022 take 1 tablet by mouth three times daily Gabapentin 600 mg tablet Active 600 mg PO THREE TIMES A DAY June 21, 2022 12:00am neuropathy Start: 03-25-2018 End: 12-05-2021 take 800 mg by mouth three times daily at mealtime Gabapentin Discontinued 800 MG PO 3 TIMES DAILY WITH MEALS March 25, 2018 9:47am December 05, 2021 3:02pm Start: 10-02-2017 End: 12-05-2021 take 2 capsules by mouth three times daily at mealtime Gabapentin 400 mg capsule Discontinued 800 mg PO 3 TIMES DAILY WITH MEALS March 25, 2018 9:47am December 05, 2021 3:02pm pain Start: 10-02-2017 End: 03-25-2018 take 1 capsule by mouth three times daily at mealtime Gabapentin 400 MG capsule Discontinued 400 mg PO 3 TIMES DAILY WITH MEALS 90 0 October 02, 2017 12:00am March 25, 2018 9:50am Start: 06-28-2017 End: 06-21-2022 take 1 tablet by mouth three times daily Gabapentin 800 mg tablet Discontinued 800 mg PO THREE TIMES A DAY December 05, 2021 12:00am June 21, 2022 11:34am Start: 01-29-2013 End: 10-02-2017 Gabapentin 600 MG tablet Discontinued 800 mg PO 3 TIMES DAILY WITH MEALS January 29, 2013 1:00am October 02, 2017 2:23pm Start: 01-29-2013 End: 10-02-2017 Start: 01-29-2013 End: 10-02-2017 take 800 mg by mouth three times daily at mealtime Gabapentin Discontinued 800 MG PO 3 TIMES DAILY WITH MEALS January 29, 2013 1:00am October 02, 2017 2:23pm Comment on above: Take 1 tablet by chris th three times daily. lidocaine 0.05 mg/mg rectal gel (20 sources) Antiarrhythmic, Amide Local Anesthetic Start: 0 End: 2 lidocaine 5 % gel Apply to affected area three times daily as needed. 30 g 2 05/19/2021 Active Comment on above: Apply to affected ar ea three times daily as needed. methocarbamol 500 mg oral tablet (4 sources) Muscle Relaxant Start: 5 take 250-500 mg by mouth twice daily as needed for muscle spasms Methocarbamol 500 mg tablet Active 250 - 500 mg PO TWICE DAILY NEEDED as needed for muscle spasm June 09, 2024 12:00am Multivitamin With Folic Acid (20 sources) Start: 3 take 1 tablet by mouth once daily Multivitamin With Folic Acid Active 1 TABLET PO DAILY January 29, 2013 3:26pm Start: 01-29-2013 End: 12-05-2021 take 1 tablet by mouth once daily Multivitamin With Folic Acid Discontinued 1 TABLET PO DAILY January 29, 2013 12:00am December 05, 2021 2:00pm Start: 01-29-2013 End: 12-05-2021 take 1 tablet by mouth once daily Multivitamin With Folic Acid Discontinued 1 TABLET PO DAILY January 29, 2013 1:00am December 05, 2021 3:00pm Start: 01-29-2013 take 1 tablet by chris th once daily Multivitamin With Folic Acid Active 1 TABLET PO DAILY January 29, 2013 1:00am Nebulizer (20 sources) Start: 06-17-2018 Nebulizer Yazmin cations: Moderate persistent asthma with acute exacerbation (HCC) NEBULIZER FOR HOME USE. DX: Asthma. Use as directed. 1 Each 06/17/2018 Active Start: 06-17-2018 Nebulizer Yazmin cations: Moderate persistent asthma with acute exacerbation NEBULIZER FOR HOME USE. DX: Asthma. Use as directed. 1 Each 06/17/2018 Active Start: 06-17-2018 Nebulizer Yazmin cations: Moderate persistent asthma with acute exacerbation NEBULIZER FOR HOME USE. DX: Asthma. Use as directed. 1 Each 0 06/17/2018 Active Comment on above: NEBULIZER FOR HOME U SE. DX: Asthma. Use as directed. Nebulizer Accessories misc (20 sources) Start: 02-20-2021 Nebulizer Accessories misc Indications: Moderate persistent asthma with acute exacerbation (HCC) Use with nebulizer every 4 hours as needed for wheezing and shortness of breath Pt would like mask for use with nebulizer. 1 Each 02/20/2021 Active Start: 02-20-2021 Nebulizer Acce ssories misc Indications: Moderate persistent asthma with acute exacerbation Use with nebulizer every 4 hours as needed for wheezing and shortness of breath Pt would like mask for use with nebulizer. 1 Each 02/20/2021 Active Start: 02-20-2021 Nebulizer Acce ssories [facility] [place] Indications: Moderate persistent asthma with acute exacerbation Use with nebulizer every 4 hours as needed for wheezing and shortness of breath Pt would like mask for use with nebulizer. 1 Each 0 02/20/2021 Active Comment on above: Use with nebulizer e very 4 hours as needed for wheezing and shortness of breath Pt would like mask for use with nebulizer. nitrofurantoin, macrocrystals 25 mg / nitrofurantoin, monohydrate 75 mg oral capsule (1 source) Nitrofuran Antibacterial Start: End: take 1 capsule by mouth twice daily nitrofurantoin monohydrate and macrocrystal (MACROBID) 100 mg capsule Take 1 capsule by mouth twice daily for 5 days. 10 capsule 0 08/03/2022 08/08/2022 Active Comment on above: Take 1 capsule by [facility] twice daily for 5 days. pantoprazole 40 mg delayed release oral tablet (5 sources) Proton Pump Inhibitor Start: 025 take 1 tablet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 Chronic Conditions associated with dizziness or vertigo (8 sources) Dizziness and giddiness; Translations: [Dizziness and giddiness] Resolved: 03-11-2012 03-11-2012 Episodic Deficiency and other anemia (1 source) Iron deficiency anemia, unspecified; Translations: [Iron deficiency anemia, unspecified] Onset: 07-07-2024 Episodic E Codes: Fall (9 sources) Fall; Translations: [Unspecified fall, initial encounter] Onset: 06-15-2024 06-10-2024 Episodic Fracture of lower limb (20 sources) Fracture of shaft of femur; Translations: [Displaced spiral fracture of shaft of unspecified femur, initial encounter for closed fracture] Onset: 06-15-2024 06-10-2024 Episodic Genitourinary symptoms and ill-defined conditions (20 sources) Urgent desire to urinate; Translations: [Urgency of urination] Onset: 02-05-2008 Resolved: 03-11-2012 03-11-2012 Episodic Malaise and fatigue (7 sources) Asthenia; Translations: [Other malaise] Onset: 07-07-2024 06-15-2024 Episodic Mycoses (8 sources) Onychomycosis due to dermatophyte ; Translations: [Tinea unguium] Onset: 06-07-2005 Resolved: 03-11-2012 03-11-2012 Episodic Noninfectious gastroenteritis (8 sources) Collagenous colitis; Translations: [Collagenous colitis] Onset: 09-03-2011 Resolved: 03-11-2012 03-11-2012 Chronic Other acquired deformities (8 sources) Scoliosis deformity of spine; Translations: [Scoliosis, unspecified] Resolved: 03-11-2012 02-13-2021 Chronic Other acquired deformities (8 sources) Lumbar spondylolisthesis; Translations: [Spondylolisthesis, lumbar region] Onset: 02-02-2015 Resolved: 11-08-2016 11-08-2016 Episodic Other aftercare (1 source) group home (current) use of anticoagulants; Translations: [group home (current) use of anticoagulants] Onset: 06-15-2024 Episodic Other and ill-defined cerebrovascular disease (8 sources) Cerebrovascular disease; Translations: [Other cerebrovascular disease] Resolved: 03-11-2012 03-11-2012 Chronic Other and unspecified benign neoplasm (8 sources) Dermatofibroma of right lower limb; Translations: [Other benign neoplasm of skin of right lower limb, including hip] Onset: 08-30-2011 Resolved: 03-11-2012 03-11-2012 Episodic Other and unspecified benign neoplasm (8 sources) Melanocytic nevus of trunk; Translations: [Melanocytic nevi of trunk] Onset: 08-30-2011 Resolved: 10-28-2014 10-28-2014 Episodic Other bone disease and musculoskeletal deformities (20 sources) Disorder of skeletal system; Translations: [Disorder of bone, unspecified] Onset: 01-02-2006 01-02-2006 Episodic Other connective tissue disease (8 sources) Pain in left foot; Translations: [Pain in left foot] Onset: 08-30-2017 Resolved: 03-20-2018 03-20-2018 Episodic Other connective tissue disease (1 source) Pain in right leg; Translations: [Pain in right leg] Onset: 06-22-2024 Episodic Other diseases of bladder and urethra (8 sources) Disorder of bladder; Translations: [Other specified disorders of bladder] Onset: 02-01-2005 Resolved: 03-11-2012 03-11-2012 Chronic Other ear and sense organ disorders (8 sources) Tinnitus; Translations: [Tinnitus, unspecified ear] Resolved: 03-11-2012 03-11-2012 Episodic Other gastrointestinal disorders (8 sources) Diarrhea; Translations: [Diarrhea, unspecified] Onset: 05-17-2011 Resolved: 03-11-2012 03-11-2012 Episodic Other gastrointestinal disorders (1 source) Other fecal abnormalities; Translations: [Other fecal abnormalities] Onset: 07-01-2024 Episodic Other inflammatory condition of skin (8 sources) Lichen simplex chronicus; Translations: [Lichen simplex chronicus] Onset: 04-24-2013 Resolved: 11-01-2015 11-01-2015 Episodic Other inflammatory condition of skin (8 sources) Pruritus, unspecified; Translations: [Unspecified pruritic disorder] Onset: 04-24-2013 Resolved: 10-28-2014 10-28-2014 Episodic Other injuries and conditions due to external causes (8 sources) Excoriation of skin; Translations: [Other injury of unspecified body region, initial encounter] Onset: 08-30-2011 Resolved: 03-11-2012 03-11-2012 Episodic Other lower respiratory disease (8 sources) Nodule of lung; Translations: [Solitary pulmonary nodule] Onset: 10-20-2010 Resolved: 03-11-2012 02-13-2021 Episodic Other nervous system disorders (8 sources) Carpal tunnel syndrome; Translations: [Carpal tunnel syndrome, unspecified upper limb] Resolved: 03-11-2012 03-11-2012 Chronic Other nervous system disorders (20 sources) Impaired cognition; Translations: [Other symptoms and signs involving cognitive functions and awareness] Onset: 04-10-2017 04-10-2017 Episodic Other nutritional; endocrine; and metabolic disorders (1 source) Overweight; Translations: [Overweight] Onset: 06-15-2024 Episodic Other skin disorders (8 sources) Scar conditions and fibrosis of skin; Translations: [Scar conditions and fibrosis of skin] Onset: 08-30-2011 Resolved: 03-11-2012 03-11-2012 Episodic Other skin disorders (8 sources) Seborrheic keratosis; Translations: [Other seborrheic keratosis] Onset: 08-30-2011 Resolved: 03-11-2012 03-11-2012 Episodic Other skin disorders (8 sources) Acne; Translations: [Other acne] Onset: 08-30-2011 Resolved: 03-11-2012 03-11-2012 Episodic Other skin disorders (8 sources) Hair follicle disorder; Translations: [Other granulomatous disorders of the skin and subcutaneous tissue] Onset: 08-30-2011 Resolved: 03-11-2012 03-11-2012 Episodic Other skin disorders (8 sources) Changes in skin texture; Translations: [Other skin changes] Onset: 04-24-2013 Resolved: 10-21-2013 10-21-2013 Episodic Other skin disorders (8 sources) Asteatosis cutis; Translations: [Xerosis cutis] Onset: 04-24-2013 Resolved: 10-28-2014 10-28-2014 Episodic Other skin disorders (8 sources) Post-inflammatory hyperpigmentation; Translations: [Postinflammatory hyperpigmentation] Onset: 04-24-2013 Resolved: 10-28-2014 10-28-2014 Episodic Other upper respiratory disease (1 source) Epistaxis; Translations: [Epistaxis] Onset: 04-30-2024 Episodic Phlebitis; thrombophlebitis and thromboembolism (20 sources) H/O: Deep vein thrombosis; Translations: [Personal history of other venous thrombosis and embolism] Onset: 10-30-2006 Resolved: 03-11-2012 05-05-2018 Episodic Comment on above: Concomitant with PE Pulmonary heart disease (20 sources) H/O: pulmonary embolus; Translations: [Personal history of pulmonary embolism] Onset: 10-30-2006 Resolved: 03-11-2012 05-05-2018 Episodic Comment on above: Concomitant with DVT Residual codes; unclassified (20 sources) History of syncope; Translations: [Personal history of other specified conditions] Onset: 10-01-2017 05-26-2018 Episodic Spondylosis; intervertebral disc disorders; other back problems (8 sources) Post-laminectomy syndrome; Translations: [Postlaminectomy syndrome, not elsewhere classified] Onset: 02-01-2016 Resolved: 12-18-2017 12-18-2017 Chronic Unclassified (1 source) Patient encounter status 06-04-2024 Results Test Name Value Interpretation Reference Range Facil ity Basic Metabolic Profile (BMP )on 12-14-2024 BUN/CRE 21.4 RATIO High 10-[address] [facility] Comment on above: Performed By: #### L 500.2500 ####[facility] [address] [place], [address] Calcium [Mass/Vol] 9.4 mg/dL Normal 7.6-11.0 [facility] Comment on above: Performed By: #### L 500.2500 ####[facility] [address] [place], [address] Chloride [Moles/Vol] 104 mmol/L Normal 98-108 [facility] Comment on above: Performed By: #### L 500.2500 ####[facility] [address] [place], [address] CO2 [Moles/Vol] 19.5 mmol/L Low 21.0-32.[address] [facility] Comment on above: Performed By: #### L 500.2500 ####[facility] [address] [place], [address] Creatinine [Mass/Vol] 1.54 mg/dL High 0.70-1.20 [facility] Comment on above: Performed By: #### L 500.2500 ####[facility] [address] [place], [address] GAP 13 Normal 5-[address] [facility] Comment on above: Performed By: #### L 500.2500 ####[facility] [address] [place], [address] GFR/1.73 sq M.predicted among non-blacks MDRD (S/P/Bld) [Vol rate/Area] 35 mL/min/{1.73_m2} Low >60 [facility] Comment on above: Result Comment: mL/m in/1.73m2 CKD-EPI Creatinine Equation (2020) Performed By: #### L 500.2500 ####[facility] [address] [place], [address] Glucose [Mass/Vol] 185 mg/dL High 70-99 [facility] Comment on above: Performed By: #### L 500.2500 ####[facility] [address] [place], [address] Potassium [Moles/Vol] 4.5 mmol/L Normal 3.3-5.1 [facility] Comment on above: Performed By: #### L 500.2500 ####[facility] [address] [place], [address] Sodium [Moles/Vol] 137 mmol/L Normal 133-145 [facility] Comment on above: Performed By: #### L 500.2500 ####[facility] [address] [place], [address] Urea nitrogen [Mass/Vol] 33 mg/dL High 4-[address] [facility] Comment on above: Performed By: #### L 500.2500 ####[facility] [address] [place], [address] CBC W/Diff, Automatedon 10-2 Absolute Lymph 1.63 X10 3/uL Normal 0.83-4.[address] [facility] Comment on above: Performed By: #### L 100.0100, L506.1001, L500.4050, L501.9520 ####[facility] [address] [place], [address] Absolute Neut 3.3 X10 3/uL Normal 2.0-7.[address] [facility] Comment on above: Performed By: #### L 100.0100, L506.1001, L500.4050, [id number] ####[facility] [address] [place], [address] Basophils/100 WBC (Bld) 0.3 % Normal 0-1 [facility] Comment on above: Performed By: #### L 100.0100, L506.1001, L500.4050, [id number] ####[facility] [address] [place], [address] Eosinophils/100 WBC (Bld) 3.6 % Normal 0-[address] [facility] Comment on above: Performed By: #### L 100.0100, L506.1001, L500.4050, [id number] ####[facility] [address] [place], [address] Erythrocyte distribution width (RBC) [Ratio] 13.2 % Normal 11.6-14.[address] [facility] Comment on above: Performed By: #### L 100.0100, L506.1001, L500.4050, [id number] ####[facility] [address] [place], [address] Hematocrit (Bld) [Volume fraction] 35.4 % Low 37-[address] [facility] Comment on above: Performed By: #### L 100.0100, L506.1001, L500.4050, [id number] ####[facility] [address] [place], [address] Hemoglobin (Bld) [Mass/Vol] 10.9 g/dL Low 12.0-15.[address] [facility] Comment on above: Performed By: #### L 100.0100, L506.1001, L500.4050, [id number] ####[facility] [address] [place], [address] IG% 0.700 Normal 0.0-0.[address] [facility] Comment on above: Result Comment: IG% - Immature Granulocytes (promyelocytes, myelocytes andmetamyelocytes) > 1% indicates that a LEFT SHIFT is Present. Performed By: #### L 100.0100, L506.1001, L500.4050, [id number] ####[facility] [address] [place], [address] Lymphocytes/100 WBC (Bld) 28.2 % Normal 19-[address] [facility] Comment on above: Performed By: #### L 100.0100, L506.1001, L500.4050, [id number] ####[facility] [address] [place], [address] MCH (RBC) [Entitic mass] 30.1 pg Normal 27.0-32.[address] [facility] Comment on above: Performed By: #### L 100.0100, L506.1001, L500.4050, [id number] ####[facility] [address] [place], [address] MCHC (RBC) [Mass/Vol] 30.8 g/dL Low 32-36 [facility] Comment on above: Performed By: #### L 100.0100, L506.1001, L500.4050, [id number] ####[facility] [address] [place], [address] MCV (RBC) [Entitic vol] 97.8 fL Normal 81-99 [facility] Comment on above: Performed By: #### L 100.0100, L506.1001, L500.4050, [id number] ####[facility] [address] [place], [address] Monocytes/100 WBC (Bld) 9.5 % Normal 0-10 [facility] Comment on above: Performed By: #### L 100.0100, L506.1001, L500.4050, [id number] ####[facility] [address] [place], [address] Neutrophils/100 WBC (Bld) 57.7 % Normal 47-[address] [facility] Comment on above: Performed By: #### L 100.0100, L506.1001, L500.4050, [id number] ####[facility] [address] [place], [address] Nucleated RBC (Bld) [#/Vol] 0 10*3/uL Normal 0-[address] [facility] Comment on above: Performed By: #### L 100.0100, L506.1001, L500.4050, [id number] ####[facility] [address] [place], [address] Platelet mean volume (Bld) [Entitic vol] 9.9 fL Normal 6.2-12.[address] [facility] Comment on above: Performed By: #### L 100.0100, L506.1001, L500.4050, [id number] ####[facility] [address] [place], [address] Platelets (Bld) [#/Vol] 205 10*3/uL Normal 150-[address] [facility] Comment on above: Performed By: #### L 100.0100, L506.1001, L500.4050, [id number] ####[facility] [address] [place], [address] RBC (Bld) [#/Vol] 3.62 10*6/uL Low 4.2-5.4 [facility] Comment on above: Performed By: #### L 100.0100, L506.1001, L500.4050, [id number] ####[facility] [address] [place], [address] RDW SD 46.7 fl High 35.1-43.[address] [facility] Comment on above: Performed By: #### L 100.0100, L506.1001, L500.4050, [id number] ####[facility] [address] [place], [address] WBC (Bld) [#/Vol] 5.8 10*3/uL Normal 4.4-11.0 [facility] Comment on above: Performed By: #### L 100.0100, L506.1001, L500.4050, [id number] ####[facility] [address] [place], [address] Comprehensive Metabolic Prof ilon 12-08-2024 Albumin [Mass/Vol] 4.1 g/dL Normal 3.4-4.8 [facility] Comment on above: Performed By: #### L 100.0100, L506.1001, L500.4050, [id number] ####[facility] [address] [place], [address] Albumin/Globulin [Mass ratio] 1.3 {ratio} Normal 0.9-2.[address] [facility] Comment on above: Result Comment: AMENDED REPORT 12/08/241624 A/G previously reported as: 1.4 RATIO Performed By: #### L 100.0100, L506.1001, L500.4050, [id number] ####[facility] [address] [place], [address] ALK PHOS 140 U/L High 35-[address] [facility] Comment on above: Result Comment: AMENDED REPORT 12/08/241624 ALK P previously reported as: 146 H U/L Performed By: #### L 100.0100, L506.1001, L500.4050, [id number] ####[facility] [address] [place], [address] ALT [Catalytic activity/Vol] 15 U/L Normal <=[address] [facility] Comment on above: Result Comment: AMENDED REPORT 12/08/241624 ALT previously reported as: 16 U/L Performed By: #### L 100.0100, L506.1001, L500.4050, [id number] ####[facility] [address] [place], [address] AST [Catalytic activity/Vol] 21 U/L Normal <=[address] [facility] Comment on above: Result Comment: AMENDED REPORT 12/08/241624 AST previously reported as: 20 U/L Performed By: #### L 100.0100, L506.1001, L500.4050, [id number] ####[facility] [address] [place], [address] Bilirubin [Mass/Vol] 0.34 mg/dL Normal 0.00-1.30 [facility] Comment on above: Result Comment: AMENDED REPORT 12/08/241624 T BILI previously reported as: 0.35 mg/dL Performed By: #### L 100.0100, L506.1001, L500.4050, [id number] ####[facility] [address] [place], [address] BUN/CRE 21.4 RATIO High 10-[address] [facility] Comment on above: Result Comment: AMENDED REPORT 12/08/241624 BUN/CRE previously reported as: 21.7 H RATIO Performed By: #### L 100.0100, L506.1001, L500.4050, [id number] ####[facility] [address] [place], [address] Calcium [Mass/Vol] 9.7 mg/dL Normal 7.6-11.0 [facility] Comment on above: Result Comment: AMENDED REPORT 12/08/241624 CA previously reported as: 9.8 mg/dL Performed By: #### L 100.0100, L506.1001, L500.4050, [id number] ####[facility] [address] [place], [address] Chloride [Moles/Vol] 106 mmol/L Normal 98-108 [facility] Comment on above: Performed By: #### L 100.0100, L506.1001, L500.4050, [id number] ####[facility] [address] [place], [address] CO2 [Moles/Vol] 22.5 mmol/L Normal 21.0-32.[address] [facility] Comment on above: Result Comment: AMENDED REPORT 12/08/241624 CO2 previously reported as: 20.7 L mmol/L Performed By: #### L 100.0100, L506.1001, L500.4050, [id number] ####[facility] [address] [place], [address] Creatinine [Mass/Vol] 1.73 mg/dL High 0.70-1.20 [facility] Comment on above: Result Comment: AMENDED REPORT 12/08/241624 CREAT,SERUM previously reported as: 1.82 H mg/dL Performed By: #### L 100.0100, L506.1001, L500.4050, L501.9520 ####[facility] [address] [place], [address] GAP 11 Normal 5-[address] [facility] Comment on above: Result Comment: AMENDED REPORT 12/08/241624 GAP previously reported as: 15 Performed By: #### L 100.0100, L506.1001, L500.4050, [id number] ####[facility] [address] [place], [address] Globulin (S) [Mass/Vol] 3.1 g/dL Normal 2.2-4.2 [facility] Comment on above: Result Comment: AMENDED REPORT 12/08/241624 GLOB previously reported as: 2.9 g/dL Performed By: #### L 100.0100, L506.1001, L500.4050, L501.9520 ####[facility] [address] [place], [address] Glucose [Mass/Vol] 197 mg/dL High 70-99 [facility] Comment on above: Result Comment: AMENDED REPORT 12/08/241624 GLU previously reported as: 204 H mg/dL Performed By: #### L 100.0100, L506.1001, L500.4050, [id number] ####[facility] [address] [place], [address] Potassium [Moles/Vol] 5.5 mmol/L High 3.3-5.1 [facility] Comment on above: Result Comment: AMENDED REPORT 12/08/241624 K previously reported as: 5.6 H mmol/L Performed By: #### L 100.0100, L506.1001, L500.4050, L501.9520 ####[facility] [address] [place], [address] Sodium [Moles/Vol] 139 mmol/L Normal 133-145 [facility] Comment on above: Result Comment: AMENDED REPORT 12/08/241624 NA previously reported as: 141 mmol/L Performed By: #### L 100.0100, L506.1001, L500.4050, [id number] ####[facility] [address] [place], [address] T PROT 7.2 g/dL Normal 5.9-8.[address] [facility] Comment on above: Result Comment: AMENDED REPORT 12/08/241624 T PROT previously reported as: 7.0 g/dL Performed By: #### L 100.0100, L506.1001, L500.4050, [id number] ####[facility] [address] [place], [address] Urea nitrogen [Mass/Vol] 37 mg/dL High 4-[address] [facility] Comment on above: Result Comment: AMENDED REPORT 12/08/241624 BUN previously reported as: 40 H mg/dL Performed By: #### L 100.0100, L506.1001, L500.4050, L501.9520 ####[facility] [address] [place], [address] Thyroid Stim Hormone (TSH)on 12-08-2024 TSH 2.260 uIU/mL Normal 0.300-4.[address] [facility] Comment on above: Result Comment: AMENDED REPORT 12/08/241624 TSH previously reported as: 2.250 uIU/mL Performed By: #### L 100.0100, L506.1001, L500.4050, L501.9520 ####[facility] [address] [place], [address] Vitamin D,25 Hydroxyon 12-08 Vitamin D 25-OH 33.4 ng/mL Normal 30-[address] [facility] Comment on above: Result Comment: Dorothea min D StatusDeficiency: <20 ng/mL (50nmol/L)Insufficiency: 20-30 ng/mL (50-75 nmol/L)Sufficiency: 30-100 ng/mL (75-250 nmol/L)Toxicity: >100 ng/mL (>250 nmol/L) AMENDED REPORT 12/08/24 162 Vitamin D 25-OH previously reported as: 35.6 ng/mLVitamin D StatusDeficiency: <20 ng/mL (50nmol/L)Insufficiency: 20-30 ng/mL (50-75 nmol/L)Sufficiency: 30-100 ng/mL (75-250 nmol/L)Toxicity: >100 ng/mL (>250 nmol/L) Performed By: #### L 100.0100, L506.1001, L500.4050, L501.9520 ####[facility] [address] [place], [address] CBC-Complete Blood Cnt No Di ffon 11-26-2024 Erythrocyte distribution width (RBC) [Ratio] 13.2 % Normal 11.6-14.[address] [facility] Comment on above: Performed By: #### L 500.3600, L100.0500 ####[facility] [address] [place], [address] Hematocrit (Bld) [Volume fraction] 37.3 % Normal 37-[address] [facility] Comment on above: Performed By: #### L 500.3600, L100.0500 ####[facility] [address] [place], [address] Hemoglobin (Bld) [Mass/Vol] 11.7 g/dL Low 12.0-15.[address] [facility] Comment on above: Performed By: #### L 500.3600, L100.0500 ####[facility] [address] [place], [address] MCH (RBC) [Entitic mass] 29.8 pg Normal 27.0-32.[address] [facility] Comment on above: Performed By: #### L 500.3600, L100.0500 ####[facility] [address] [place], [address] MCHC (RBC) [Mass/Vol] 31.4 g/dL Low 32-36 [facility] Comment on above: Performed By: #### L 500.3600, L100.0500 ####[facility] [address] [place], [address] MCV (RBC) [Entitic vol] 94.9 fL Normal 81-99 [facility] Comment on above: Performed By: #### L 500.3600, L100.0500 ####[facility] [address] [place], [address] Platelet mean volume (Bld) [Entitic vol] 9.7 fL Normal 6.2-12.0 [facility] [facility] Comment on above: Performed By: #### L 500.3600, L100.0500 ####[facility] [address] [place], [address] Platelets (Bld) [#/Vol] 221 10*3/uL Normal 150-[address] [facility] Comment on above: Performed By: #### L 500.3600, L100.0500 ####[facility] [address] [place], [address] RBC (Bld) [#/Vol] 3.93 10*6/uL Low 4.2-5.4 [facility] Comment on above: Performed By: #### L 500.3600, L100.0500 ####[facility] [address] [place], [address] RDW SD 45.8 fl High 35.1-43.[address] [facility] Comment on above: Performed By: #### L 500.3600, L100.0500 ####[facility] [address] [place], [address] WBC (Bld) [#/Vol] 5.3 10*3/uL Normal 4.4-11.0 [facility] Comment on above: Performed By: #### L 500.3600, L100.0500 ####[facility] [address] [place], [address] Renal Profileon 11-26-2024 CO2 [Moles/Vol] 21.5 mmol/L Normal 21.0-32.[address] [facility] Comment on above: Performed By: #### L 500.3600, L100.0500 ####[facility] [address] [place], [address] GAP 13 Normal - [facility] Comment on above: Performed By: #### L 500.3600, L100.0500 ####[facility] [address] [place], [address] Absolute lymphocyte countOrd ered By: Quentin Kellogg on 09-09-2024 Lymphocytes Auto (Unsp spec) [#/Vol] 1.57 10*3/uL 0.83-4.[address] [facility] Absolute neutrophil countOrd ered By: Quentin Valdez on 09-09-2024 Neutrophils (Bld) [#/Vol] 2.4 10*3/uL 2.0-7.[address] [facility] Anion gap in Serum or Plasma Ordered By: Quentin Kellogg on 09-09-2024 Anion gap [Moles/Vol] 14 mmol/L 07-02 [facility] Automated lymphocyte count a s percentage of total leukocytesOrdered By: Quentin Kellogg on 09-09-2024 Lymphocytes/100 WBC Auto (Unsp spec) 32.8 % [facility] BUN/creatinine ratioOrdered By: Quentin Kellogg on 09-09-2024 Urea nitrogen/Creatinine [Mass ratio] 23.3 mg/mg High - [facility] Basophil percentageOrdered B y: Quentin Kellogg on 09-09-2024 Basophils/100 WBC (Bld) 0.4 % 0-1 [facility] Bilirubin, totalOrdered By: Quentin Kellogg on 09-09-2024 Bilirubin [Mass/Vol] 0.32 mg/dL 0.00-1.30 [facility] CBC W/Diff, Automatedon 08-19 Absolute Lymph 1.57 X10 3/uL Normal 0.83-4.[address] [facility] Comment on above: Order Comment: CC: C MP TO DR. Niraj OLMOS Performed By: #### L 500.4050, L100.0100, L501.9520, L506.1001 ####[facility] [address] [place], [address] Absolute Neut 2.4 X10 3/uL Normal 2.0-7.[address] [facility] Comment on above: Order Comment: CC: C MP TO DR. Niraj OLMOS Performed By: #### L 500.4050, L100.0100, L501.9520, L506.1001 ####[facility] [address] [place], [address] Basophils/100 WBC (Bld) 0.4 % Normal 0-1 [facility] Comment on above: Order Comment: CC: C MP TO DR. Niraj OLMOS Performed By: #### L 500.4050, L100.0100, L501.9520, L506.1001 ####[facility] [address] [place], [address] Eosinophils/100 WBC (Bld) 4.8 % Normal 0-[address] [facility] Comment on above: Order Comment: CC: C MP TO DR. Niraj OLMOS Performed By: #### L 500.4050, L100.0100, L501.9520, L506.1001 ####[facility] [address] [place], [address] Erythrocyte distribution width (RBC) [Ratio] 14.4 % Normal 11.6-14.[address] [facility] Comment on above: Order Comment: CC: C MP TO DR. Niraj OLMOS Performed By: #### L 500.4050, L100.0100, L501.9520, L506.1001 ####[facility] [address] [place], [address] Hematocrit (Bld) [Volume fraction] 35.8 % Low 37-[address] [facility] Comment on above: Order Comment: CC: C MP TO DR. Niraj OLMOS Performed By: #### L 500.4050, L100.0100, L501.9520, L506.1001 ####[facility] [address] [place], [address] Hemoglobin (Bld) [Mass/Vol] 10.9 g/dL Low 12.0-15.[address] [facility] Comment on above: Order Comment: CC: C MP TO DR. Niraj OLMOS Performed By: #### L 500.4050, L100.0100, L501.9520, L506.1001 ####[facility] [address] [place], [address] IG% 0.800 Normal 0.0-0.[address] [facility] Comment on above: Order Comment: CC: Niraj MP TO DR. Niraj OLMOS Result Comment: IG% - Immature Granulocytes (promyelocytes, myelocytes andmetamyelocytes) > 1% indicates that a LEFT SHIFT is Present. Performed By: #### L 500.4050, L100.0100, L501.9520, L506.1001 ####[facility] [address] [place], [address] Lymphocytes/100 WBC (Bld) 32.8 % Normal 19-[address] [facility] Comment on above: Order Comment: CC: C MP TO DR. Niraj OLMOS Performed By: #### L 500.4050, L100.0100, L501.9520, L506.1001 ####[facility] [address] [place], [address] MCH (RBC) [Entitic mass] 29.5 pg Normal 27.0-32.[address] [facility] Comment on above: Order Comment: CC: C MP TO DR. Niraj OLMOS Performed By: #### L 500.4050, L100.0100, L501.9520, L506.1001 ####[facility] [address] [place], [address] MCHC (RBC) [Mass/Vol] 30.4 g/dL Low 32-36 [facility] Comment on above: Order Comment: CC: C MP TO DR. Niraj OLMOS Performed By: #### L 500.4050, L100.0100, L501.9520, L506.1001 ####[facility] [address] [place], [address] MCV (RBC) [Entitic vol] 97.0 fL Normal 81-99 [facility] Comment on above: Order Comment: CC: C MP TO DR. Niraj OLMOS Performed By: #### L 500.4050, L100.0100, L501.9520, L506.1001 ####[facility] [address] [place], [address] Monocytes/100 WBC (Bld) 10.0 % Normal 0-10 [facility] Comment on above: Order Comment: CC: C MP TO DR. Niraj OLMOS Performed By: #### L 500.4050, L100.0100, L501.9520, L506.1001 ####[facility] [address] [place], [address] Neutrophils/100 WBC (Bld) 51.2 % Normal 47-[address] [facility] Comment on above: Order Comment: CC: C MP TO DR. Niraj OLMOS Performed By: #### L 500.4050, L100.0100, L501.9520, L506.1001 ####[facility] [address] [place], [address] Nucleated RBC (Bld) [#/Vol] 0 10*3/uL Normal 0-[address] [facility] Comment on above: Order Comment: CC: C MP TO DR. Niraj OLMOS Performed By: #### L 500.4050, L100.0100, L501.9520, L506.1001 ####[facility] [address] [place], [address] Platelet mean volume (Bld) [Entitic vol] 9.4 fL Normal 6.2-12.[address] [facility] Comment on above: Order Comment: CC: C MP TO DR. Niraj OLMOS Performed By: #### L 500.4050, L100.0100, L501.9520, L506.1001 ####[facility] [address] [place], [address] Platelets (Bld) [#/Vol] 197 10*3/uL Normal 150-[address] [facility] Comment on above: Order Comment: CC: C MP TO DR. Niraj OLMOS Performed By: #### L 500.4050, L100.0100, L501.9520, L506.1001 ####[facility] [address] [place], [address] RBC (Bld) [#/Vol] 3.69 10*6/uL Low 4.2-5.4 [facility] Comment on above: Order Comment: CC: C MP TO DR. Niraj OLMOS Performed By: #### L 500.4050, L100.0100, L501.9520, L506.1001 ####[facility] [address] [place], [address] RDW SD 50.9 fl High 35.1-43.[address] [facility] Comment on above: Order Comment: CC: C MP TO DR. Niraj OLMOS Performed By: #### L 500.4050, L100.0100, L501.9520, L506.1001 ####[facility] [address] [place], [address] WBC (Bld) [#/Vol] 4.8 10*3/uL Normal 4.4-11.0 [facility] Comment on above: Order Comment: CC: C MP TO DR. Niraj OLMOS Performed By: #### L 500.4050, L100.0100, L501.9520, L506.1001 ####[place] [facility] [address] [place], [address] Carbon dioxide, total [Moles /volume] in Central venous bloodOrdered By: Quentin Kellogg on 09-09-2024 CO2 [Moles/Vol] 19.7 mmol/L Low 21.0-32.[address] [facility] Chloride assayOrdered By: Santi jessika Kellogg on 09-09-2024 Chloride [Moles/Vol] 107 mmol/L 98-108 [facility] Comprehensive Metabolic Prof ilon 09-09-2024 Albumin [Mass/Vol] 4.4 g/dL Normal 3.4-4.8 [facility] Comment on above: Order Comment: CC: C MP TO DR. Niraj OLMOS Performed By: #### L 500.4050, L100.0100, L501.9520, L506.1001 ####[facility] [address] [place], [address] Albumin/Globulin [Mass ratio] 1.4 {ratio} Normal 0.9-2.[address] [facility] Comment on above: Order Comment: CC: C MP TO DR. Niraj OLMOS Performed By: #### L 500.4050, L100.0100, L501.9520, L506.1001 ####[facility] [address] [place], [address] ALK PHOS 231 U/L High 35-[address] [facility] Comment on above: Order Comment: CC: C MP TO DR. Niraj OLMOS Performed By: #### L 500.4050, L100.0100, L501.9520, L506.1001 ####[facility] [address] [place], [address] ALT [Catalytic activity/Vol] 17 U/L Normal <=[address] [facility] Comment on above: Order Comment: CC: C MP TO DR. Niraj OLMOS Performed By: #### L 500.4050, L100.0100, L501.9520, L506.1001 ####[facility] [address] [place], [address] AST [Catalytic activity/Vol] 21 U/L Normal <=[address] [facility] Comment on above: Order Comment: CC: C MP TO DR. Niraj OLMOS Performed By: #### L 500.4050, L100.0100, L501.9520, L506.1001 ####[facility] [address] [place], [address] Bilirubin [Mass/Vol] 0.32 mg/dL Normal 0.00-1.30 [facility] Comment on above: Order Comment: CC: C MP TO DR. Niraj OLMOS Performed By: #### L 500.4050, L100.0100, L501.9520, L506.1001 ####[facility] [address] [place], [address] BUN/CRE 23.3 RATIO High 10-[address] [facility] Comment on above: Order Comment: CC: C MP TO DR. Niraj OLMOS Performed By: #### L 500.4050, L100.0100, L501.9520, L506.1001 ####[facility] [address] [place], [address] Calcium [Mass/Vol] 9.8 mg/dL Normal 7.6-11.0 [facility] Comment on above: Order Comment: CC: C MP TO DR. Niraj OLMOS Performed By: #### L 500.4050, L100.0100, L501.9520, L506.1001 ####[facility] [address] [place], [address] Chloride [Moles/Vol] 107 mmol/L Normal 98-108 [facility] Comment on above: Order Comment: CC: C MP TO DR. Niraj OLMOS Performed By: #### L 500.4050, L100.0100, L501.9520, L506.1001 ####[facility] [address] [place], [address] CO2 [Moles/Vol] 19.7 mmol/L Low 21.0-32.[address] [facility] Comment on above: Order Comment: CC: C MP TO DR. Niraj OLMOS Performed By: #### L 500.4050, L100.0100, L501.9520, L506.1001 ####[facility] [address] [place], [address] Creatinine [Mass/Vol] 1.39 mg/dL High 0.70-1.20 [facility] Comment on above: Order Comment: CC: C MP TO DR. Niraj OLMOS Performed By: #### L 500.4050, L100.0100, L501.9520, L506.1001 ####[facility] [address] [place], [address] GAP 14 Normal 5-[address] [facility] Comment on above: Order Comment: CC: C MP TO DR. Niraj OLMOS Performed By: #### L 500.4050, L100.0100, L501.9520, L506.1001 ####[facility] [address] [place], [address] GFR/1.73 sq M.predicted among non-blacks MDRD (S/P/Bld) [Vol rate/Area] 40 mL/min/{1.73_m2} Low >60 [facility] Comment on above: Order Comment: CC: C MP TO DR. Niraj OLMOS Result Comment: mL/m in/1.73m2 CKD-EPI Creatinine Equation (2020) Performed By: #### L 500.4050, L100.0100, L501.9520, L506.1001 ####[facility] [address] [place], [address] Globulin (S) [Mass/Vol] 3.1 g/dL Normal 2.2-4.2 [facility] Comment on above: Order Comment: CC: C MP TO DR. Niraj OLMOS Performed By: #### L 500.4050, L100.0100, L501.9520, L506.1001 ####[facility] [address] [place], [address] Glucose [Mass/Vol] 198 mg/dL High 70-99 [facility] Comment on above: Order Comment: CC: C MP TO DR. Niraj OLMOS Performed By: #### L 500.4050, L100.0100, L501.9520, L506.1001 ####[facility] [address] [place], [address] Potassium [Moles/Vol] 4.7 mmol/L Normal 3.3-5.1 [facility] Comment on above: Order Comment: CC: C MP TO DR. Niraj OLMOS Performed By: #### L 500.4050, L100.0100, L501.9520, L506.1001 ####[facility] [address] [place], [address] Sodium [Moles/Vol] 141 mmol/L Normal 133-145 [facility] Comment on above: Order Comment: CC: C MP TO DR. Niraj OLMOS Performed By: #### L 500.4050, L100.0100, L501.9520, L506.1001 ####[facility] [address] [place], [address] T PROT 7.5 g/dL Normal 5.9-8.[address] [facility] Comment on above: Order Comment: CC: C MP TO DR. Niraj OLMOS Performed By: #### L 500.4050, L100.0100, L501.9520, L506.1001 ####[facility] [address] [place], [address] Urea nitrogen [Mass/Vol] 32 mg/dL High 4-[address] [facility] Comment on above: Order Comment: CC: C MP TO DR. Niraj OLMOS Performed By: #### L 500.4050, L100.0100, L501.9520, L506.1001 ####[facility] [address] [place], [address] Eosinophil percentageOrdered By: Quentin Kellogg on 09-09-2024 Eosinophils/100 WBC (Bld) 4.8 % 0-[address] [facility] Erythrocyte distribution wid th ratioOrdered By: Quentin Valdez on 09-09-2024 Erythrocyte distribution width (RBC) [Ratio] 14.4 % 11.6-14.[address] [facility] Erythrocyte distribution wid th standard deviationOrdered By: Quentin Valdez on 09-09-2024 Erythrocyte distribution width (RBC) [Ratio] 50.9 fl High 35.1-43.[address] [facility] Glomerular filtration rate ( GFR) estimation/1.73 sq m using serum, plasma, or whole bOrdered By: Quentin Valdez on 09-09-2024 GFR/1.73 sq M.predicted among non-blacks MDRD (S/P/Bld) [Vol rate/Area] 40 mL/min/{1.73_m2} Low >60 [facility] Comment on above: mL/min/1.73m2 CKD-EP I Creatinine Equation (2020) Hematocrit Auto (Bld) [Volum e fraction]Ordered By: Quentin Kellogg 09-09-2024 Hematocrit (Bld) [Volume fraction] 35.8 % Low 37-[address] [facility] Hemoglobin measurementOrdere d By: Quentin Kellogg 09-09-2024 Hemoglobin (Bld) [Mass/Vol] 10.9 g/dL Low 12.0-15.[address] [facility] Immature granulocytes/100 WB C Auto (Bld)Ordered By: Quentin Kellogg 09-09-2024 Immature granulocytes/100 WBC (Bld) 0.800 % 0.0-0.[address] [facility] Comment on above: IG% - Immature Granu locytes (promyelocytes, myelocytes and metamyelocytes) > 1% indicates that a LEFT SHIFT is Present. Laboratory - Chemistry and C hemistry - challengeOrdered By: Quentin Kellogg 09-09-2024 AST [Catalytic activity/Vol] 21 U/L <[address] [facility] MCV (mean corpuscular volume ) determinationOrdered By: Quentin Kellogg on 09-09-2024 MCV (RBC) [Entitic vol] 97.0 fL 81-99 [facility] Mean corpuscular hemoglobin (MCH) determinationOrdered By: Quentin Kellogg on 09-09-2024 MCH (RBC) [Entitic mass] 29.5 pg 27.0-32.[address] [facility] Mean corpuscular hemoglobin concentration (MCHC) determinationOrdered By: Quentin Kellogg on 09-09-2024 MCHC (RBC) [Mass/Vol] 30.4 g/dL Low 32-36 [facility] Mean platelet volume determi nationOrdered By: Quetnin Kellogg on 09-09-2024 Platelet mean volume (Bld) [Entitic vol] 9.4 fL 6.2-12.[address] [facility] Monocyte percentageOrdered B y: Quentin Kellogg on 09-09-2024 Monocytes/100 WBC (Bld) 10.0 % 0-10 [facility] Neutrophil percentageOrdered By: Quentin Kellogg on 09-09-2024 Neutrophils/100 WBC (Bld) 51.2 % 47-[address] [facility] Nucleated red blood cell per centageOrdered By: Quentin Kellogg on 09-09-2024 Nucleated RBC/100 WBC (Bld) [Ratio] 0 % 0-[address] [facility] Platelet countOrdered By: Santi Kellogg on 09-09-2024 Platelets (Bld) [#/Vol] 197 10*3/uL 150-[address] [facility] Potassium measurement (mass/ volume)Ordered By: Quentin Kellogg 09-09-2024 Potassium (Unsp spec) [Mass/Vol] 4.7 mmol/L 3.3-5.[address] [facility] RBC Auto (Bld) [#/Vol]Ordere d By: Quentin Kellogg on 09-09-2024 RBC (Bld) [#/Vol] 3.69 10*6/uL Low 4.2-5.4 [facility] Serum creatinine measurement (mass/volume)Ordered By: Quentin Kellogg on 09-09-2024 Creatinine [Mass/Vol] 1.39 mg/dL High 0.70-1.20 [facility] Serum globulin measurementOr dered By: Quentin Kellogg 09-09-2024 Globulin (S) [Mass/Vol] 3.1 g/dL 2.2-4.2 [facility] Serum glucose measurement (m ass/volume)Ordered By: Quentin Kellogg on 09-09-2024 Glucose [Mass/Vol] 198 mg/dL High 70-99 [facility] Serum or plasma alanine rahman otransferase (ALT) measurementOrdered By: Quentin Kellogg on 09-09-2024 ALT [Catalytic activity/Vol] 17 U/L <[address] [facility] Serum or plasma albumin swetha urement (mass/volume)Ordered By: Quentin Kellogg on 09-09-2024 Albumin [Mass/Vol] 4.4 g/dL 3.4-4.8 [facility] Serum or plasma albumin/glob ulin mass ratioOrdered By: Quentin Kellogg on 09-09-2024 Albumin/Globulin [Mass ratio] 1.4 {ratio} 0.9-2.[address] [facility] Serum or plasma alkaline becca sphatase measurementOrdered By: Quentin Kellogg 09-09-2024 ALP [Catalytic activity/Vol] 231 U/L High 35-[address] [facility] Serum or plasma calcium swetha urement (mass/volume)Ordered By: Quentin Kellogg on 09-09-2024 Calcium [Mass/Vol] 9.8 mg/dL 7.6-11.0 [facility] Serum or plasma urea nitroge n measurement (mass/volume)Ordered By: Quentin Kellogg 09-09-2024 Urea nitrogen [Mass/Vol] 32 mg/dL High 4-[address] [facility] Sodium levelOrdered By: Quentin Kellogg on 09-09-2024 Sodium [Moles/Vol] 141 mmol/L 133-145 [facility] TSH DL <= 0.005 mIU/L QnOrde red By: Quentin Kellogg on 09-09-2024 TSH Qn 1.610 uIU/mL 0.300-4.[address] [facility] Thyroid Stim Hormone (TSH)on 09-09-2024 TSH 1.610 uIU/mL Normal 0.300-4.[address] [facility] Comment on above: Order Comment: CC: C MP TO DR. Niraj OLMOS Performed By: #### L 500.4050, L100.0100, L501.9520, L506.1001 ####[facility] [address] [place], [address] Total proteinOrdered By: Quentin Kellogg on 09-09-2024 Protein [Mass/Vol] 7.5 g/dL 5.9-8.4 [facility] Vitamin D,25 Hydroxyon 09-09 Vitamin D 25-OH 39.1 ng/mL Normal 30-[address] [facility] Comment on above: Order Comment: CC: Niraj NATH TO DR. Niraj OLMOS Result Comment: Dorothea min D StatusDeficiency: <20 ng/mL (50nmol/L)Insufficiency: 20-30 ng/mL (50-75 nmol/L)Sufficiency: 30-100 ng/mL (75-250 nmol/L)Toxicity: >100 ng/mL (>250 nmol/L) Performed By: #### L 500.4050, L100.0100, L501.9520, L506.1001 ####[facility] [address] [place], [address] White blood cell (WBC) count Ordered By: Quentin Kellogg on 09-09-2024 WBC (Bld) [#/Vol] 4.8 10*3/uL 4.4-11.0 [facility] Basic Metabolic Profile (BMP )on 07-21-2024 BUN Normal 4-[address] [facility] Comment on above: Result Comment: Canc elled via OM: Order cancelled - Patient discharged Performed By: #### L 500.2500 ####[facility] [address] [place], [address] BUN/CRE Normal 10-[address] [facility] Comment on above: Result Comment: Canc elled via OM: Order cancelled - Patient discharged Performed By: #### L 500.2500 ####[facility] [address] [place], [address] Calcium Normal 7.6-11.[address] [facility] Comment on above: Result Comment: Canc elled via OM: Order cancelled - Patient discharged Performed By: #### L 500.2500 ####[facility] [address] [place], [address] CL Normal 98-[address] [facility] Comment on above: Result Comment: Canc elled via OM: Order cancelled - Patient discharged Performed By: #### L 500.2500 ####[facility] [address] [place], [address] CO2 Normal 21.0-32.[address] [facility] Comment on above: Result Comment: Canc elled via OM: Order cancelled - Patient discharged Performed By: #### L 500.2500 ####[facility] [address] [place], [address] CREAT,SERUM Normal 0.70-1.[address] [facility] Comment on above: Result Comment: Canc elled via OM: Order cancelled - Patient discharged Performed By: #### L 500.2500 ####[facility] [address] [place], [address] eGFR Normal >[address] [facility] Comment on above: Result Comment: Canc elled via OM: Order cancelled - Patient discharged Performed By: #### L 500.2500 ####[facility] [address] [place], [address] GAP Normal 5-[address] [facility] Comment on above: Result Comment: Canc elled via OM: Order cancelled - Patient discharged Performed By: #### L 500.2500 ####[facility] [address] [place], [address] GLU Normal 70-[address] [facility] Comment on above: Result Comment: Canc elled via OM: Order cancelled - Patient discharged Performed By: #### L 500.2500 ####[facility] [address] [place], [address] Potassium Normal 3.3-5.[address] [facility] Comment on above: Result Comment: Canc elled via OM: Order cancelled - Patient discharged Performed By: #### L 500.2500 ####[facility] [address] [place], [address] Basic Metabolic Profile (BMP) Normal 133-145 [facility] [facility] Comment on above: Result Comment: Canc elled via OM: Order cancelled - Patient discharged Performed By: #### L 500.2500 ####[facility] [address] [place], [address] Basic Metabolic Profile (BMP )on 07-14-2024 BUN Normal 4-[address] [facility] Comment on above: Result Comment: Canc elled via OM: Order cancelled - Patient discharged Performed By: #### L 500.2500, L100.0100 ####[facility] [address] [place], [address] BUN/CRE Normal 10-[address] [facility] Comment on above: Result Comment: Canc elled via OM: Order cancelled - Patient discharged Performed By: #### L 500.2500, L100.0100 ####[facility] [address] [place], [address] Calcium Normal 7.6-11.[address] [facility] Comment on above: Result Comment: Canc elled via OM: Order cancelled - Patient discharged Performed By: #### L 500.2500, L100.0100 ####[facility] [address] [place], [address] CL Normal 98-[address] [facility] Comment on above: Result Comment: Canc elled via OM: Order cancelled - Patient discharged Performed By: #### L 500.2500, L100.0100 ####[facility] [address] [place], [address] CO2 Normal 21.0-32.[address] [facility] Comment on above: Result Comment: Canc elled via OM: Order cancelled - Patient discharged Performed By: #### L 500.2500, L100.0100 ####[facility] [address] [place], [address] CREAT,SERUM Normal 0.70-1.[address] [facility] Comment on above: Result Comment: Canc elled via OM: Order cancelled - Patient discharged Performed By: #### L 500.2500, L100.0100 ####[facility] [address] [place], [address] eGFR Normal >[address] [facility] Comment on above: Result Comment: Canc elled via OM: Order cancelled - Patient discharged Performed By: #### L 500.2500, L100.0100 ####[facility] [address] [place], [address] GAP Normal 5-[address] [facility] Comment on above: Result Comment: Canc elled via OM: Order cancelled - Patient discharged Performed By: #### L 500.2500, L100.0100 ####[facility] [address] [place], [address] GLU Normal 70-[address] [facility] Comment on above: Result Comment: Canc elled via OM: Order cancelled - Patient discharged Performed By: #### L 500.2500, L100.0100 ####[facility] [address] [place], [address] Potassium Normal 3.3-5.[address] [facility] Comment on above: Result Comment: Canc elled via OM: Order cancelled - Patient discharged Performed By: #### L 500.2500, L100.0100 ####[facility] [address] [place], [address] Basic Metabolic Profile (BMP) Normal 133-[address] [facility] Comment on above: Result Comment: Canc elled via OM: Order cancelled - Patient discharged Performed By: #### L 500.2500, L100.0100 ####[facility] [address] [place], [address] CBC W/Diff, Automatedon 05-2 Absolute Neut Normal 2.0-7.[address] [facility] Comment on above: Result Comment: Canc elled via OM: Order cancelled - Patient discharged Performed By: #### L 500.2500, L100.0100 ####[facility] [address] [place], [address] HCT Normal 37-[address] [facility] Comment on above: Result Comment: Canc elled via OM: Order cancelled - Patient discharged Performed By: #### L 500.2500, L100.0100 ####[facility] [address] [place], [address] HGB Normal 12.0-15.[address] [facility] Comment on above: Result Comment: Canc elled via OM: Order cancelled - Patient discharged Performed By: #### L 500.2500, L100.0100 ####[facility] [address] [place], [address] MCH Normal 27.0-32.[address] [facility] Comment on above: Result Comment: Canc elled via OM: Order cancelled - Patient discharged Performed By: #### L 500.2500, L100.0100 ####[facility] [address] [place], [address] MCHC Normal 32-[address] [facility] Comment on above: Result Comment: Canc elled via OM: Order cancelled - Patient discharged Performed By: #### L 500.2500, L100.0100 ####[facility] [address] [place], [address] MCV Normal 81-[address] [facility] Comment on above: Result Comment: Canc elled via OM: Order cancelled - Patient discharged Performed By: #### L 500.2500, L100.0100 ####[facility] [address] [place], [address] NEUT% Normal 47-[address] [facility] Comment on above: Result Comment: Canc elled via OM: Order cancelled - Patient discharged Performed By: #### L 500.2500, L100.0100 ####[facility] [address] [place], [address] PLT Normal 150-[address] [facility] Comment on above: Result Comment: Canc elled via OM: Order cancelled - Patient discharged Performed By: #### L 500.2500, L100.0100 ####[facility] [address] [place], [address] RBC Normal 4.2-5.[address] [facility] Comment on above: Result Comment: Canc elled via OM: Order cancelled - Patient discharged Performed By: #### L 500.2500, L100.0100 ####[facility] [address] [place], [address] RDW CV Normal 11.6-14.[address] [facility] Comment on above: Result Comment: Canc elled via OM: Order cancelled - Patient discharged Performed By: #### L 500.2500, L100.0100 ####[facility] [address] [place], [address] RDW SD Normal 35.1-43.[address] [facility] Comment on above: Result Comment: Canc elled via OM: Order cancelled - Patient discharged Performed By: #### L 500.2500, L100.0100 ####[facility] [address] [place], [address] WBC Normal 4.4-11.[address] [facility] Comment on above: Result Comment: Canc elled via OM: Order cancelled - Patient discharged Performed By: #### L 500.2500, L100.0100 ####[facility] [address] [place], [address] Basic Metabolic Profile (BMP )on 07-07-2024 BUN Normal 4-[address] [facility] Comment on above: Result Comment: Canc elled via OM: Order cancelled - Patient discharged Performed By: #### L 500.2500, L100.0100 ####[facility] [address] [place], [address] BUN/CRE Normal 10-[address] [facility] Comment on above: Result Comment: Canc elled via OM: Order cancelled - Patient discharged Performed By: #### L 500.2500, L100.0100 ####[facility] [address] [place], [address] Calcium Normal 7.6-11.[address] [facility] Comment on above: Result Comment: Canc elled via OM: Order cancelled - Patient discharged Performed By: #### L 500.2500, L100.0100 ####[facility] [address] [place], [address] CL Normal 98-[address] [facility] Comment on above: Result Comment: Canc elled via OM: Order cancelled - Patient discharged Performed By: #### L 500.2500, L100.0100 ####[facility] [address] [place], [address] CO2 Normal 21.0-32.[address] [facility] Comment on above: Result Comment: Canc elled via OM: Order cancelled - Patient discharged Performed By: #### L 500.2500, L100.0100 ####[facility] [address] [place], [address] CREAT,SERUM Normal 0.70-1.[address] [facility] Comment on above: Result Comment: Canc elled via OM: Order cancelled - Patient discharged Performed By: #### L 500.2500, L100.0100 ####[facility] [address] [place], [address] eGFR Normal >[address] [facility] Comment on above: Result Comment: Canc elled via OM: Order cancelled - Patient discharged Performed By: #### L 500.2500, L100.0100 ####[facility] [address] [place], [address] GAP Normal 5-[address] [facility] Comment on above: Result Comment: Canc elled via OM: Order cancelled - Patient discharged Performed By: #### L 500.2500, L100.0100 ####[facility] [address] [place], [address] GLU Normal 70-[address] [facility] Comment on above: Result Comment: Canc elled via OM: Order cancelled - Patient discharged Performed By: #### L 500.2500, L100.0100 ####[facility] [address] [place], [address] Potassium Normal 3.3-5.[address] [facility] Comment on above: Result Comment: Canc elled via OM: Order cancelled - Patient discharged Performed By: #### L 500.2500, L100.0100 ####[facility] [address] [place], [address] Basic Metabolic Profile (BMP) Normal 133-[address] [facility] Comment on above: Result Comment: Canc elled via OM: Order cancelled - Patient discharged Performed By: #### L 500.2500, L100.0100 ####[facility] [address] [place], [address] CBC W/Diff, Automatedon 05-2 0-2024 Absolute Neut Normal 2.0-7.[address] [facility] Comment on above: Result Comment: Canc elled via OM: Order cancelled - Patient discharged Performed By: #### L 500.2500, L100.0100 ####[facility] [address] [place], [address] HCT Normal 37-[address] [facility] Comment on above: Result Comment: Canc elled via OM: Order cancelled - Patient discharged Performed By: #### L 500.2500, L100.0100 ####[facility] [address] [place], [address] HGB Normal 12.0-15.[address] [facility] Comment on above: Result Comment: Canc elled via OM: Order cancelled - Patient discharged Performed By: #### L 500.2500, L100.0100 ####[facility] [address] [place], [address] MCH Normal 27.0-32.[address] [facility] Comment on above: Result Comment: Canc elled via OM: Order cancelled - Patient discharged Performed By: #### L 500.2500, L100.0100 ####[facility] [address] [place], [address] MCHC Normal 32-[address] [facility] Comment on above: Result Comment: Canc elled via OM: Order cancelled - Patient discharged Performed By: #### L 500.2500, L100.0100 ####[facility] [address] [place], [address] MCV Normal 81-[address] [facility] Comment on above: Result Comment: Canc elled via OM: Order cancelled - Patient discharged Performed By: #### L 500.2500, L100.0100 ####[facility] [address] [place], [address] NEUT% Normal 47-[address] [facility] Comment on above: Result Comment: Canc elled via OM: Order cancelled - Patient discharged Performed By: #### L 500.2500, L100.0100 ####[facility] [address] [place], [address] PLT Normal 150-[address] [facility] Comment on above: Result Comment: Canc elled via OM: Order cancelled - Patient discharged Performed By: #### L 500.2500, L100.0100 ####[facility] [address] [place], [address] RBC Normal 4.2-5.[address] [facility] Comment on above: Result Comment: Canc elled via OM: Order cancelled - Patient discharged Performed By: #### L 500.2500, L100.0100 ####[facility] [address] [place], [address] RDW CV Normal 11.6-14.[address] [facility] Comment on above: Result Comment: Canc elled via OM: Order cancelled - Patient discharged Performed By: #### L 500.2500, L100.0100 ####[facility] [address] [place], [address] RDW SD Normal 35.1-43.[address] [facility] Comment on above: Result Comment: Canc elled via OM: Order cancelled - Patient discharged Performed By: #### L 500.2500, L100.0100 ####[facility] [address] [place], [address] WBC Normal 4.4-11.[address] [facility] Comment on above: Result Comment: Canc elled via OM: Order cancelled - Patient discharged Performed By: #### L 500.2500, L100.0100 ####[facility] [address] [place], [address] Bedside Glucoseon 07-03-2024 FINGERSTICK GLU 112 mg/dL High 74-[address] [facility] Comment on above: Result Comment: ABDIRAHMAN FARRAHENT OF PATIENT CARE PER NURSING PROTOCOL Performed By: #### L 501.080 ####[facility] [address] [place], [address] [facility] de[facility] By: Quentin Kellogg on 07-03-2024 Glucose [Mass/Vol] 112 mg/dL High 74-106 [facility] Comment on above: MANAGEMENT OF PATIEN T CARE PER NURSING PROTOCOL Bedside Glucoseon 07-02-2024 FINGERSTICK GLU 173 mg/dL High 74-[address] [facility] Comment on above: Result Comment: ABDIRAHMAN GEMENT OF PATIENT CARE PER NURSING PROTOCOL Performed By: #### L 501.080 ####[facility] [address] [place], [address] FINGERSTICK GLU 138 mg/dL High 74-[address] [facility] Comment on above: Result Comment: ABDIRAHMAN GEMENT OF PATIENT CARE PER NURSING PROTOCOL Performed By: #### L 501.080 ####[facility] [address] [place], [address] Anion gap in Serum or Plasma Ordered By: Quentin Kellogg on 07-01-2024 Anion gap [Moles/Vol] 9 mmol/L - [facility] BUN/creatinine ratioOrdered By: Quentin Kellogg on 07-01-2024 Urea nitrogen/Creatinine [Mass ratio] 33.0 mg/mg High 12-[address] [facility] Basic Metabolic Profile (BMP )on 07-01-2024 BUN/CRE 33.0 RATIO High - [facility] Comment on above: Performed By: #### L 500.2500 ####[facility] [address] [place], [address] Calcium [Mass/Vol] 9.4 mg/dL Normal 7.6-11.0 [facility] Comment on above: Performed By: #### L 500.2500 ####[facility] [address] [place], [address] Chloride [Moles/Vol] 106 mmol/L Normal 98-108 [facility] Comment on above: Performed By: #### L 500.2500 ####[facility] [address] [place], [address] CO2 [Moles/Vol] 25.7 mmol/L Normal 21.0-32.[address] [facility] Comment on above: Performed By: #### L 500.2500 ####[facility] [address] [place], [address] Creatinine [Mass/Vol] 1.10 mg/dL Normal 0.70-1.20 [facility] Comment on above: Performed By: #### L 500.2500 ####[facility] [address] [place], [address] ECRCL 43.49 ml/min Low 50-[address] [facility] Comment on above: Performed By: #### L 500.2500 ####[facility] [address] [place], [address] GAP 9 Normal 5-[address] [facility] Comment on above: Performed By: #### L 500.2500 ####[facility] [address] [place], [address] GFR/1.73 sq M.predicted among non-blacks MDRD (S/P/Bld) [Vol rate/Area] 53 mL/min/{1.73_m2} Low >60 [facility] Comment on above: Result Comment: mL/m in/1.73m2 CKD-EPI Creatinine Equation (2020) Performed By: #### L 500.2500 ####[facility] [address] [place], [address] Glucose [Mass/Vol] 143 mg/dL High 70-99 [facility] Comment on above: Performed By: #### L 500.2500 ####[facility] [address] [place], [address] Potassium [Moles/Vol] 4.4 mmol/L Normal 3.3-5.1 [facility] Comment on above: Performed By: #### L 500.2500 ####[facility] [address] [place], [address] Sodium [Moles/Vol] 140 mmol/L Normal 133-145 [facility] Comment on above: Performed By: #### L 500.2500 ####[facility] [address] [place], [address] Urea nitrogen [Mass/Vol] 36 mg/dL High 4-[address] [facility] Comment on above: Performed By: #### L 500.2500 ####[facility] [address] [place], [address] Bedside Glucoseon 07-01-2024 FINGERSTICK GLU 184 mg/dL High 74-[address] [facility] Comment on above: Result Comment: ABDIRAHMAN GEMENT OF PATIENT CARE PER NURSING PROTOCOL Performed By: #### L 501.080 ####[facility] [address] [place], [address] FINGERSTICK GLU 140 mg/dL High 74-[address] [facility] Comment on above: Result Comment: ABDIRAHMAN GEMENT OF PATIENT CARE PER NURSING PROTOCOL Performed By: #### L 501.080 ####[facility] [address] [place], [address] Carbon dioxide, total [Moles /volume] in Central venous bloodOrdered By: Quentin Kellogg on 07-01-2024 CO2 [Moles/Vol] 25.7 mmol/L 21.0-32.[address] [facility] Chloride assayOrdered By: Santi Kellogg on 07-01-2024 Chloride [Moles/Vol] 106 mmol/L 98-108 [facility] Glomerular filtration rate ( GFR) estimation/1.73 sq m using serum, plasma, or whole bOrdered By: Quentin Kellogg on 07-01-2024 GFR/1.73 sq M.predicted among non-blacks MDRD (S/P/Bld) [Vol rate/Area] 53 mL/min/{1.73_m2} Low >60 [facility] Comment on above: mL/min/1.73m2 CKD-EP I Creatinine Equation (2020) Potassium measurement (mass/ volume)Ordered By: Quentin Kellogg on 07-01-2024 Potassium (Unsp spec) [Mass/Vol] 4.4 mmol/L 3.3-5.[address] [facility] Serum creatinine measurement (mass/volume)Ordered By: Quentin Kellogg on 07-01-2024 Creatinine [Mass/Vol] 1.10 mg/dL 0.70-1.20 [facility] Serum glucose measurement (m ass/volume)Ordered By: Quentin Kellogg on 07-01-2024 Glucose [Mass/Vol] 143 mg/dL High 70-99 [facility] Serum or plasma calcium swetha urement (mass/volume)Ordered By: Quentin Kellogg on 07-01-2024 Calcium [Mass/Vol] 9.4 mg/dL 7.6-11.0 [facility] Serum or plasma urea nitroge n measurement (mass/volume)Ordered By: Quentin Valdez on 07-01-2024 Urea nitrogen [Mass/Vol] 36 mg/dL High 4-[address] [facility] Sodium levelOrdered By: [facility] on 07-01-2024 Sodium [Moles/Vol] 140 mmol/L 133-145 [facility] Absolute lymphocyte countOrd ered By: Quentin Kellogg on 06-30-2024 Lymphocytes Auto (Unsp spec) [#/Vol] 1.60 10*3/uL 0.83-4.[address] [facility] Absolute neutrophil countOrd ered By: Quentin Kellogg on 06-30-2024 Neutrophils (Bld) [#/Vol] 2.0 10*3/uL 2.0-7.[address] [facility] Automated lymphocyte count a s percentage of total leukocytesOrdered By: Quentin Kellogg on 06-30-2024 Lymphocytes/100 WBC Auto (Unsp spec) 37.5 % 19-[address] [facility] Basic Metabolic Profile (BMP )on 06-30-2024 BUN/CRE 36.0 RATIO High 10-[address] [facility] Comment on above: Performed By: #### L 500.2500, L100.0100 ####[facility] [address] [place], [address] Calcium [Mass/Vol] 9.4 mg/dL Normal 7.6-11.0 [facility] Comment on above: Performed By: #### L 500.2500, L100.0100 ####[facility] [address] [place], [address] Chloride [Moles/Vol] 107 mmol/L Normal 98-108 [facility] Comment on above: Performed By: #### L 500.2500, L100.0100 ####[facility] [address] [place], [address] CO2 [Moles/Vol] 25.6 mmol/L Normal 21.0-32.[address] [facility] Comment on above: Performed By: #### L 500.2500, L100.0100 ####[facility] [address] [place], [address] Creatinine [Mass/Vol] 1.09 mg/dL Normal 0.70-1.20 [facility] Comment on above: Performed By: #### L 500.2500, L100.0100 ####[facility] [address] [place], [address] ECRCL 43.80 ml/min Low 50-[address] [facility] Comment on above: Performed By: #### L 500.2500, L100.0100 ####[facility] [address] [place], [address] GAP 8 Normal 5-[address] [facility] Comment on above: Performed By: #### L 500.2500, L100.0100 ####[facility] [address] [place], [address] GFR/1.73 sq M.predicted among non-blacks MDRD (S/P/Bld) [Vol rate/Area] 54 mL/min/{1.73_m2} Low >60 [facility] Comment on above: Result Comment: mL/m in/1.73m2 CKD-EPI Creatinine Equation (2020) Performed By: #### L 500.2500, L100.0100 ####[facility] [address] [place], [address] Glucose [Mass/Vol] 88 mg/dL Normal 70-99 [facility] Comment on above: Performed By: #### L 500.2500, L100.0100 ####[facility] [address] [place], [address] Potassium [Moles/Vol] 5.2 mmol/L High 3.3-5.1 [facility] Comment on above: Performed By: #### L 500.2500, L100.0100 ####[facility] [address] [place], [address] Sodium [Moles/Vol] 141 mmol/L Normal 133-145 [facility] Comment on above: Performed By: #### L 500.2500, L100.0100 ####[facility] [address] [place], [address] Urea nitrogen [Mass/Vol] 39 mg/dL High 4-[address] [facility] Comment on above: Performed By: #### L 500.2500, L100.0100 ####[facility] [address] [place], [address] Basophil percentageOrdered B y: Quentin Kellogg on 06-30-2024 Basophils/100 WBC (Bld) 0.2 % 0-1 [facility] Bedside Glucoseon 06-30-2024 FINGERSTICK GLU 142 mg/dL High 74-[address] [facility] Comment on above: Result Comment: ABDIRAHMAN GEMENT OF PATIENT CARE PER NURSING PROTOCOL Performed By: #### L 501.080 ####[facility] [address] [place], [address] FINGERSTICK GLU 74 mg/dL Normal 74-[address] [facility] Comment on above: Result Comment: ABDIRAHMAN GEMENT OF PATIENT CARE PER NURSING PROTOCOL Performed By: #### L 501.080 ####[facility] [address] [place], [address] CBC W/Diff, Automatedon 06-18 Absolute Lymph 1.60 X10 3/uL Normal 0.83-4.[address] [facility] Comment on above: Performed By: #### L 500.2500, L100.0100 ####[facility] [address] [place], [address] Absolute Neut 2.0 X10 3/uL Normal 2.0-7.[address] [facility] Comment on above: Performed By: #### L 500.2500, L100.0100 ####[facility] [address] [place], [address] Basophils/100 WBC (Bld) 0.2 % Normal 0-1 [facility] Comment on above: Performed By: #### L 500.2500, L100.0100 ####[facility] [address] [place], [address] Eosinophils/100 WBC (Bld) 4.2 % Normal 0-[address] [facility] Comment on above: Performed By: #### L 500.2500, L100.0100 ####[facility] [address] [place], [address] Erythrocyte distribution width (RBC) [Ratio] 14.0 % Normal 11.6-14.[address] [facility] Comment on above: Performed By: #### L 500.2500, L100.0100 ####[facility] [address] [place], [address] Hematocrit (Bld) [Volume fraction] 29.0 % Low 37-[address] [facility] Comment on above: Performed By: #### L 500.2500, L100.0100 ####[facility] [address] [place], [address] Hemoglobin (Bld) [Mass/Vol] 9.1 g/dL Low 12.0-15.[address] [facility] Comment on above: Performed By: #### L 500.2500, L100.0100 ####[facility] [address] [place], [address] IG% 0.700 Normal 0.0-0.[address] [facility] Comment on above: Result Comment: IG% - Immature Granulocytes (promyelocytes, myelocytes andmetamyelocytes) > 1% indicates that a LEFT SHIFT is Present. Performed By: #### L 500.2500, L100.0100 ####[facility] [address] [place], [address] Lymphocytes/100 WBC (Bld) 37.5 % Normal 19-[address] [facility] Comment on above: Performed By: #### L 500.2500, L100.0100 ####[facility] [address] [place], [address] MCH (RBC) [Entitic mass] 30.8 pg Normal 27.0-32.[address] [facility] Comment on above: Performed By: #### L 500.2500, L100.0100 ####[facility] [address] [place], [address] MCHC (RBC) [Mass/Vol] 31.4 g/dL Low 32-36 [facility] Comment on above: Performed By: #### L 500.2500, L100.0100 ####[facility] [address] [place], [address] MCV (RBC) [Entitic vol] 98.3 fL Normal 81-99 [facility] Comment on above: Performed By: #### L 500.2500, L100.0100 ####[facility] [address] [place], [address] Monocytes/100 WBC (Bld) 11.7 % High 0-10 [facility] Comment on above: Performed By: #### L 500.2500, L100.0100 ####[facility] [address] [place], [address] Neutrophils/100 WBC (Bld) 45.7 % Low 47-[address] [facility] Comment on above: Performed By: #### L 500.2500, L100.0100 ####[facility] [address] [place], [address] Nucleated RBC (Bld) [#/Vol] 0 10*3/uL Normal 0-[address] [facility] Comment on above: Performed By: #### L 500.2500, L100.0100 ####[facility] [address] [place], [address] Platelet mean volume (Bld) [Entitic vol] 8.7 fL Normal 6.2-12.[address] [facility] Comment on above: Performed By: #### L 500.2500, L100.0100 ####[facility] [address] [place], [address] Platelets (Bld) [#/Vol] 242 10*3/uL Normal 150-[address] [facility] Comment on above: Performed By: #### L 500.2500, L100.0100 ####[facility] [address] [place], [address] RBC (Bld) [#/Vol] 2.95 10*6/uL Low 4.2-5.4 [facility] Comment on above: Performed By: #### L 500.2500, L100.0100 ####[facility] [address] [place], [address] RDW SD 50.4 fl High 35.1-43.[address] [facility] Comment on above: Performed By: #### L 500.2500, L100.0100 ####[facility] [address] [place], [address] WBC (Bld) [#/Vol] 4.3 10*3/uL Low 4.4-11.0 [facility] Comment on above: Performed By: #### L 500.2500, L100.0100 ####[facility] [address] [place], [address] Eosinophil percentageOrdered By: [facility] 06-30-2024 Eosinophils/100 WBC (Bld) 4.2 % 0-[address] [facility] Erythrocyte distribution wid th ratioOrdered By: [facility] 06-30-2024 Erythrocyte distribution width (RBC) [Ratio] 14.0 % 11.6-14.[address] [facility] Erythrocyte distribution wid th standard deviationOrdered By: [facility] 06-30-2024 Erythrocyte distribution width (RBC) [Ratio] 50.4 fl High 35.1-43.[address] [facility] Hematocrit Auto (Bld) [Volum e fraction]Ordered By: [facility] 06-30-2024 Hematocrit (Bld) [Volume fraction] 29.0 % Low 37-[address] [facility] Hemoglobin measurementOrdere d By: [facility] 06-30-2024 Hemoglobin (Bld) [Mass/Vol] 9.1 g/dL Low 12.0-15.[address] [facility] Immature granulocytes/100 WB C Auto (Bld)Ordered By: [facility] 06-30-2024 Immature granulocytes/100 WBC (Bld) 0.700 % 0.0-0.[address] [facility] Comment on above: IG% - Immature Granu locytes (promyelocytes, myelocytes and metamyelocytes) > 1% indicates that a LEFT SHIFT is Present. MCV (mean corpuscular volume ) determinationOrdered By: [facility] 06-30-2024 MCV (RBC) [Entitic vol] 98.3 fL 81-99 [facility] Mean corpuscular hemoglobin (MCH) determinationOrdered By: [facility] 06-30-2024 MCH (RBC) [Entitic mass] 30.8 pg 27.0-32.[address] [facility] Mean corpuscular hemoglobin concentration (MCHC) determinationOrdered By: [facility] 06-30-2024 MCHC (RBC) [Mass/Vol] 31.4 g/dL Low 32-36 [facility] Mean platelet volume determi nationOrdered By: [facility] 06-30-2024 Platelet mean volume (Bld) [Entitic vol] 8.7 fL 6.2-12.[address] [facility] Monocyte percentageOrdered B y: Quentin Kellogg on 06-30-2024 Monocytes/100 WBC (Bld) 11.7 % High 0-10 [facility] Neutrophil percentageOrdered By: Quentin Kellogg on 06-30-2024 Neutrophils/100 WBC (Bld) 45.7 % Low 47-[address] [facility] Nucleated red blood cell per centageOrdered By: Quentin Kellogg on 06-30-2024 Nucleated RBC/100 WBC (Bld) [Ratio] 0 % 0-[address] [facility] Platelet countOrdered By: Santi Kellogg on 06-30-2024 Platelets (Bld) [#/Vol] 242 10*3/uL 150-[address] [facility] RBC Auto (Bld) [#/Vol]Ordere d By: Quentin Kellogg on 06-30-2024 RBC (Bld) [#/Vol] 2.95 10*6/uL Low 4.2-5.4 [facility] White blood cell (WBC) count Ordered By: Quentin Kellogg on 06-30-2024 WBC (Bld) [#/Vol] 4.3 10*3/uL Low 4.4-11.0 [facility] Bedside Glucoseon 06-29-2024 FINGERSTICK GLU 190 mg/dL High 74-[address] [facility] Comment on above: Result Comment: ABDIRAHMAN GEMENT OF PATIENT CARE PER NURSING PROTOCOL Performed By: #### L 501.080 ####[facility] [address] [facility] [address] FINGERSTICK GLU 120 mg/dL High 74-[address] [facility] Comment on above: Result Comment: ABDIRAHMAN GEMENT OF PATIENT CARE PER NURSING PROTOCOL Performed By: #### L 501.080 ####[facility] [address] [facility] [address] FINGERSTICK GLU 156 mg/dL High 74-[address] [facility] Comment on above: Result Comment: ABDIRAHMAN GEMENT OF PATIENT CARE PER NURSING PROTOCOL Performed By: #### L 501.080 ####[facility] [address] [facility] [address] FINGERSTICK GLU 97 mg/dL Normal 74-[address] [facility] Comment on above: Result Comment: ABDIRAHMAN GEMENT OF PATIENT CARE PER NURSING PROTOCOL Performed By: #### L 501.080 ####[facility] [address] [place], [address] Bedside Glucoseon 06-28-2024 FINGERSTICK GLU 198 mg/dL High 74-[address] [facility] Comment on above: Result Comment: ABDIRAHMAN GEMENT OF PATIENT CARE PER NURSING PROTOCOL Performed By: #### L 501.080 ####[facility] [address] [facility] [address] FINGERSTICK GLU 105 mg/dL Normal 74-[address] [facility] Comment on above: Result Comment: ABDIRAHMAN GEMENT OF PATIENT CARE PER NURSING PROTOCOL Performed By: #### L 501.080 ####[facility] [address] [facility] [address] FINGERSTICK GLU 126 mg/dL High 74-[address] [facility] Comment on above: Result Comment: ABDIRHAMAN GEMENT OF PATIENT CARE PER NURSING PROTOCOL Performed By: #### L 501.080 ####[facility] [address] [place], [address] FINGERSTICK GLU 115 mg/dL High -[address] [facility] Comment on above: Result Comment: ABDIRAHMAN GEMENT OF PATIENT CARE PER NURSING PROTOCOL Performed By: #### L 501.080 ####[facility] [address] [place], [address] Bedside Glucoseon 5 FINGERSTICK GLU 171 mg/dL High 74-[address] [facility] Comment on above: Result Comment: ABDIRAHMAN GEMENT OF PATIENT CARE PER NURSING PROTOCOL Performed By: #### L 501.080 ####[facility] [address] [place], [address] FINGERSTICK GLU 132 mg/dL High 74-[address] [facility] Comment on above: Result Comment: ABDIRAHMAN GEMENT OF PATIENT CARE PER NURSING PROTOCOL Performed By: #### L 501.080 ####[facility] [address] [place], [address] FINGERSTICK GLU 73 mg/dL Low 74-[address] [facility] Comment on above: Result Comment: ABDIRAHMAN GEMENT OF PATIENT CARE PER NURSING PROTOCOL Performed By: #### L 501.080 ####[facility] [address] [place], [address] FINGERSTICK GLU 111 mg/dL High 74-[address] [facility] Comment on above: Result Comment: ABDIRAHMAN GEMENT OF PATIENT CARE PER NURSING PROTOCOL Performed By: #### L 501.080 ####[facility] [address] [place], [address] Bedside Glucoseon 06-26-2024 FINGERSTICK GLU 128 mg/dL High 74-[address] [facility] Comment on above: Result Comment: ABDIRAHMAN GEMENT OF PATIENT CARE PER NURSING PROTOCOL Performed By: #### L 501.080 ####[facility] [address] [place], [address] FINGERSTICK GLU 161 mg/dL High 74-[address] [facility] Comment on above: Result Comment: ABDIRAHMAN GEMENT OF PATIENT CARE PER NURSING PROTOCOL Performed By: #### L 501.080 ####[facility] [address] [place], [address] FINGERSTICK GLU 116 mg/dL High 74-[address] [facility] Comment on above: Result Comment: ABDIRAHMAN GEMENT OF PATIENT CARE PER NURSING PROTOCOL Performed By: #### L 501.080 ####[facility] [address] [place], [address] FINGERSTICK GLU 96 mg/dL Normal 74-[address] [facility] Comment on above: Result Comment: ABDIRAHMAN GEMENT OF PATIENT CARE PER NURSING PROTOCOL Performed By: #### L 501.080 ####[facility] [address] [place], [address] HIP, UNI W/ Pelvis 2-3 Views on 06-26-2024 HIP, UNI W/ Pelvis 2-3 Views Normal [facility] Bedside Glucoseon 06-25-2024 FINGERSTICK GLU 136 mg/dL High 74-[address] [facility] Comment on above: Result Comment: ABDIRAHMAN GEMENT OF PATIENT CARE PER NURSING PROTOCOL Performed By: #### L 501.080 ####[facility] [address] [place], [address] FINGERSTICK GLU 106 mg/dL Normal 74-[address] [facility] Comment on above: Result Comment: ABDIRAHMAN GEMENT OF PATIENT CARE PER NURSING PROTOCOL Performed By: #### L 501.080 ####[facility] [address] [place], [address] FINGERSTICK GLU 97 mg/dL Normal 74-[address] [facility] Comment on above: Result Comment: ABDIRAHMAN GEMENT OF PATIENT CARE PER NURSING PROTOCOL Performed By: #### L 501.080 ####[facility] [address] [place], [address] FINGERSTICK GLU 109 mg/dL High 74-[address] [facility] Comment on above: Result Comment: ABDIRAHMAN GEMENT OF PATIENT CARE PER NURSING PROTOCOL Performed By: #### L 501.080 ####[facility] [address] [place], [address] Bedside Glucoseon 06-24-2024 FINGERSTICK GLU 153 mg/dL High 74-[address] [facility] Comment on above: Result Comment: ABDIRAHMAN GEMENT OF PATIENT CARE PER NURSING PROTOCOL Performed By: #### L 501.080 ####[facility] [address] [place], [address] FINGERSTICK GLU 144 mg/dL High 74-[address] [facility] Comment on above: Result Comment: ABDIRAHMAN GEMENT OF PATIENT CARE PER NURSING PROTOCOL Performed By: #### L 501.080 ####[facility] [address] [place], [address] FINGERSTICK GLU 162 mg/dL High 74-[address] [facility] Comment on above: Result Comment: ABDIRAHMAN GEMENT OF PATIENT CARE PER NURSING PROTOCOL Performed By: #### L 501.080 ####[facility] [address] [place], [address] FINGERSTICK GLU 100 mg/dL Normal 74-[address] [facility] Comment on above: Result Comment: ABDIRAHMAN GEMENT OF PATIENT CARE PER NURSING PROTOCOL Performed By: #### L 501.080 ####[facility] [address] [place], [address] Basic Metabolic Profile (BMP )on 06-23-2024 BUN/CRE 38.1 RATIO High 10-[address] [facility] Comment on above: Performed By: #### L 100.0100, L500.2500 ####[facility] [address] [place], [address] Calcium [Mass/Vol] 8.9 mg/dL Normal 7.6-11.0 [facility] Comment on above: Performed By: #### L 100.0100, L500.2500 ####[facility] [address] [place], [address] Chloride [Moles/Vol] 107 mmol/L Normal 98-108 [facility] Comment on above: Performed By: #### L 100.0100, L500.2500 ####[facility] [address] [place], [address] CO2 [Moles/Vol] 23.8 mmol/L Normal 21.0-32.[address] [facility] Comment on above: Performed By: #### L 100.0100, L500.2500 ####[facility] [address] [place], [address] Creatinine [Mass/Vol] 1.14 mg/dL Normal 0.70-1.20 [facility] Comment on above: Performed By: #### L 100.0100, L500.2500 ####[facility] [address] [place], [address] ECRCL 41.92 ml/min Low 50-[address] [facility] Comment on above: Performed By: #### L 100.0100, L500.2500 ####[facility] [address] [place], [address] GAP 8 Normal 5-[address] [facility] Comment on above: Performed By: #### L 100.0100, L500.2500 ####[facility] [address] [place], [address] GFR/1.73 sq M.predicted among non-blacks MDRD (S/P/Bld) [Vol rate/Area] 51 mL/min/{1.73_m2} Low >60 [facility] Comment on above: Result Comment: mL/m in/1.73m2 CKD-EPI Creatinine Equation (2020) Performed By: #### L 100.0100, L500.2500 ####[facility] [address] [place], [address] Glucose [Mass/Vol] 142 mg/dL High 70-99 [facility] Comment on above: Performed By: #### L 100.0100, L500.2500 ####[facility] [address] [place], [address] Potassium [Moles/Vol] 5.0 mmol/L Normal 3.3-5.1 [facility] Comment on above: Performed By: #### L 100.0100, L500.2500 ####[facility] [address] [place], [address] Sodium [Moles/Vol] 140 mmol/L Normal 133-145 [facility] Comment on above: Performed By: #### L 100.0100, L500.2500 ####[facility] [address] [place], [address] Urea nitrogen [Mass/Vol] 43 mg/dL High 4-[address] [facility] Comment on above: Performed By: #### L 100.0100, L500.2500 ####[facility] [address] [place], [address] Bedside Glucoseon - FINGERSTICK GLU 154 mg/dL High 74-[address] [facility] Comment on above: Result Comment: ABDIRAHMAN GEMENT OF PATIENT CARE PER NURSING PROTOCOL Performed By: #### L 501.080 ####[facility] [address] [place], [address] FINGERSTICK GLU 118 mg/dL High 74-[address] [facility] Comment on above: Result Comment: ABDIRAHMAN GEMENT OF PATIENT CARE PER NURSING PROTOCOL Performed By: #### L 501.080 ####[facility] [address] [place], [address] FINGERSTICK GLU 151 mg/dL High 74-[address] [facility] Comment on above: Result Comment: ABDIRAHMAN GEMENT OF PATIENT CARE PER NURSING PROTOCOL Performed By: #### L 501.080 ####[facility] [address] [place], [address] FINGERSTICK GLU 135 mg/dL High 74-[address] [facility] Comment on above: Result Comment: ABDIRAHMAN GEMENT OF PATIENT CARE PER NURSING PROTOCOL Performed By: #### L 501.080 ####[facility] [address] [place], [address] CBC W/Diff, Automatedon 05-0 Absolute Lymph 1.54 X10 3/uL Normal 0.83-4.[address] [facility] Comment on above: Performed By: #### L 100.0100, L500.2500 ####[facility] [address] [place], [address] Absolute Neut 2.6 X10 3/uL Normal 2.0-7.[address] [facility] Comment on above: Performed By: #### L 100.0100, L500.2500 ####[facility] [address] [place], [address] Basophils/100 WBC (Bld) 0.4 % Normal 0-1 [facility] Comment on above: Performed By: #### L 100.0100, L500.2500 ####[facility] [address] [place], [address] Eosinophils/100 WBC (Bld) 4.9 % Normal 0-[address] [facility] Comment on above: Performed By: #### L 100.0100, L500.2500 ####[facility] [address] [place], [address] Erythrocyte distribution width (RBC) [Ratio] 14.7 % High 11.6-14.[address] [facility] Comment on above: Performed By: #### L 100.0100, L500.2500 ####[facility] [address] [place], [address] Hematocrit (Bld) [Volume fraction] 28.6 % Low 37-[address] [facility] Comment on above: Performed By: #### L 100.0100, L500.2500 ####[facility] [address] [place], [address] Hemoglobin (Bld) [Mass/Vol] 9.2 g/dL Low 12.0-15.[address] [facility] Comment on above: Performed By: #### L 100.0100, L500.2500 ####[facility] [address] [place], [address] IG% 0.800 Normal 0.0-0.[address] [facility] Comment on above: Result Comment: IG% - Immature Granulocytes (promyelocytes, myelocytes andmetamyelocytes) > 1% indicates that a LEFT SHIFT is Present. Performed By: #### L 100.0100, L500.2500 ####[facility] [address] [place], [address] Lymphocytes/100 WBC (Bld) 31.2 % Normal 19-[address] [facility] Comment on above: Performed By: #### L 100.0100, L500.2500 ####[facility] [address] [place], [address] MCH (RBC) [Entitic mass] 31.1 pg Normal 27.0-32.[address] [facility] Comment on above: Performed By: #### L 100.0100, L500.2500 ####[facility] [address] [place], [address] MCHC (RBC) [Mass/Vol] 32.2 g/dL Normal 32-36 [facility] Comment on above: Performed By: #### L 100.0100, L500.2500 ####[facility] [address] [place], [address] MCV (RBC) [Entitic vol] 96.6 fL Normal 81-99 [facility] Comment on above: Performed By: #### L 100.0100, L500.2500 ####[facility] [address] [place], [address] Monocytes/100 WBC (Bld) 10.8 % High 0-10 [facility] Comment on above: Performed By: #### L 100.0100, L500.2500 ####[facility] [address] [place], [address] Neutrophils/100 WBC (Bld) 51.9 % Normal 47-[address] [facility] Comment on above: Performed By: #### L 100.0100, L500.2500 ####[facility] [address] [place], [address] Nucleated RBC (Bld) [#/Vol] 0 10*3/uL Normal 0-[address] [facility] Comment on above: Performed By: #### L 100.0100, L500.2500 ####[facility] [address] [place], [address] Platelet mean volume (Bld) [Entitic vol] 8.9 fL Normal 6.2-12.[address] [facility] Comment on above: Performed By: #### L 100.0100, L500.2500 ####[facility] [address] [place], [address] Platelets (Bld) [#/Vol] 261 10*3/uL Normal 150-[address] [facility] Comment on above: Performed By: #### L 100.0100, L500.2500 ####[facility] [address] [place], [address] RBC (Bld) [#/Vol] 2.96 10*6/uL Low 4.2-5.4 [facility] Comment on above: Performed By: #### L 100.0100, L500.2500 ####[facility] [address] [place], [address] RDW SD 52.4 fl High 35.1-43.[address] [facility] Comment on above: Performed By: #### L 100.0100, L500.2500 ####[facility] [address] [place], [address] WBC (Bld) [#/Vol] 4.9 10*3/uL Normal 4.4-11.0 [facility] Comment on above: Performed By: #### L 100.0100, L500.2500 ####[facility] [address] [place], [address] Nick 06-23-2024 ALEJANDRINAN Telephone (INTWS) ---- ANNETTE MARCOS ([id number]) 1950 F Date Time Provider Department 06/23/24 NO PCP (HISTORICAL) INTMWS During your visit today, we recorded the following information about you: Brit Yan RN 06/23/2024 8:54 AM Signed Amrita SW with [facility] calls to ask if while under our care we noted any developmental delays or concerns with patient. Noted cognitive impairment from 2018 and patient was not able to complete the MMSE. Amrita requesting dates of care that patient was a patient of Dr. Alfaro and asking if patient had ever been seen for anything that would be alarming as abuse. Reviewed notes from 2018 to when care ended with no finding. All questions answered to Amrita's satisfaction. Amrita following up with current PCP (Dr. Kellogg) as well. Brit Yan RN Allergies As of Date: 06/23/2024 Noted Allergy Reaction CHLORHEXIDINE 05/21/2013 9 - [...] eyes become red and headache Date Reviewed: 06/04/2024 Reviewed by: Argelia Thomson MD - Fully Assessed Reason for Visit: Patient Question [4896] Prescriptions as of 06/23/2024 - ascorbic acid (VITAMIN C ORAL) Take by mouth. - lisinopril 2.5 mg tablet - rivaroxaban [...] area three times daily as needed. - fluticasone-salmete rol (ADVAIR DISKUS) 100-50 mcg/dose inhaler Inhale 1 Puff as instructed twice daily. Finishing her supply. - atorvastatin (LIPITOR) 40 mg tablet Take 1 tablet by mouth daily at bedtime. For cholesterol. - fluticasone (FLONASE) 50 mcg/actuation nasal spray Use 2 Sprays in each nostril once daily. Rinse mouth after use. - omeprazole (PRILOSEC) 20 mg capsule TAKE ONE CAPSULE BY MOUTH DAILY 1/2 HOUR BEFORE BREAKFAST - Nebulizer Accessories misc Use with nebulizer [...] DM - Uncontrolled E11.9 Insulin: No - oxybutynin XL (DITROPAN XL) 10 mg 24 hr tablet Take 1 tablet by mouth once daily. Meds Comments as of 01/12/2013: Problem List As Of Date 06/23/2024 Noted Resolved Unspecified tinnitus [H93.19] 03/11/2012 Allergic rhinitis [J30.9] GENERAL OSTEOARTHROSIS [M15.9] Carpal tunnel syndrome [G56.00] 03/11/2012 Dizziness and giddiness [R42] 03/11/2012 Contusion of unspecified part of trunk [S20.20X* 03/11/2012 Acute, but ill-defined, cerebrovascular disease* 03/11/2012 Other specified disorder of bladder [596.8] 02/01/2005 03/11/2012 Urge incontinence [N39.41] 02/01/2005 10/28/2014 Dermatophytosis of nail [B35.1] 06/07/2005 03/11/2012 Moderate persistent asthma with acute exacerbat* BONE AND CARTILAGE DIS NOS [M89.9, M94.9] 01/02/2006 Other pulmonary embolism and infarction [I26.99] 03/11/2012 Knee joint replacement by other means [Z96.659] 09/02/2006 12/18/2017 Chronic deep vein thrombosis (DVT) of proximal *10/30/2006 Symptomatic menopausal or female climacteric st*09/01/2007 03/11/2012 Anxiety state, uns (more content not included)... Normal [facility] Bedside Glucoseon 06-22-2024 FINGERSTICK GLU 162 mg/dL High 74-[address] [facility] Comment on above: Result Comment: ABDIRAHMAN GEMENT OF PATIENT CARE PER NURSING PROTOCOL Performed By: #### L 501.080 ####[facility] [address] [place], [address] FINGERSTICK GLU 142 mg/dL High 74-[address] [facility] Comment on above: Result Comment: ABDIRAHMAN GEMENT OF PATIENT CARE PER NURSING PROTOCOL Performed By: #### L 501.080 ####[facility] [address] [place], [address] FINGERSTICK GLU 98 mg/dL Normal 74-[address] [facility] Comment on above: Result Comment: ABDIRAHMAN GEMENT OF PATIENT CARE PER NURSING PROTOCOL Performed By: #### L 501.080 ####[facility] [address] [place], [address] FINGERSTICK GLU 62 mg/dL Low 74-[address] [facility] Comment on above: Result Comment: ABDIRAHMAN GEMENT OF PATIENT CARE PER NURSING PROTOCOL Performed By: #### L 501.080 ####[facility] [address] [place], [address] FINGERSTICK GLU 100 mg/dL Normal 74-[address] [facility] Comment on above: Result Comment: ABDIRAHMAN GEMENT OF PATIENT CARE PER NURSING PROTOCOL Performed By: #### L 501.080 ####[facility] [address] [place], [address] CBC W/Diff, Automatedon 05-0 5-2025 Absolute Lymph 1.49 X10 3/uL Normal 0.83-4.[address] [facility] Comment on above: Performed By: #### L 100.0100 ####[facility] [address] [place], [address] Absolute Neut 3.0 X10 3/uL Normal 2.0-7.[address] [facility] Comment on above: Performed By: #### L 100.0100 ####[facility] [address] [place], [address] Basophils/100 WBC (Bld) 0.2 % Normal 0-1 [facility] Comment on above: Performed By: #### L 100.0100 ####[facility] [address] [place], [address] Eosinophils/100 WBC (Bld) 4.7 % Normal 0-[address] [facility] Comment on above: Performed By: #### L 100.0100 ####[facility] [address] [place], [address] Erythrocyte distribution width (RBC) [Ratio] 14.9 % High 11.6-14.[address] [facility] Comment on above: Performed By: #### L 100.0100 ####[facility] [address] [place], [address] Hematocrit (Bld) [Volume fraction] 30.4 % Low 37-[address] [facility] Comment on above: Performed By: #### L 100.0100 ####[facility] [address] [place], [address] Hemoglobin (Bld) [Mass/Vol] 9.7 g/dL Low 12.0-15.[address] [facility] Comment on above: Performed By: #### L 100.0100 ####[facility] [address] [place], [address] IG% 0.700 Normal 0.0-0.[address] [facility] Comment on above: Result Comment: IG% - Immature Granulocytes (promyelocytes, myelocytes andmetamyelocytes) > 1% indicates that a LEFT SHIFT is Present. Performed By: #### L 100.0100 ####[facility] [address] [place], [address] Lymphocytes/100 WBC (Bld) 27.9 % Normal 19-[address] [facility] Comment on above: Performed By: #### L 100.0100 ####[facility] [address] [place], [address] MCH (RBC) [Entitic mass] 31.5 pg Normal 27.0-32.[address] [facility] Comment on above: Performed By: #### L 100.0100 ####[facility] [address] [place], [address] MCHC (RBC) [Mass/Vol] 31.9 g/dL Low 32-36 [facility] Comment on above: Performed By: #### L 100.0100 ####[facility] [address] [place], [address] MCV (RBC) [Entitic vol] 98.7 fL Normal 81-99 [facility] Comment on above: Performed By: #### L 100.0100 ####[facility] [address] [place], [address] Monocytes/100 WBC (Bld) 9.9 % Normal 0-10 [facility] Comment on above: Performed By: #### L 100.0100 ####[facility] [address] [place], [address] Neutrophils/100 WBC (Bld) 56.6 % Normal 47-[address] [facility] Comment on above: Performed By: #### L 100.0100 ####[facility] [address] [place], [address] Nucleated RBC (Bld) [#/Vol] 0 10*3/uL Normal 0-[address] [facility] Comment on above: Performed By: #### L 100.0100 ####[facility] [address] [place], [address] Platelet mean volume (Bld) [Entitic vol] 8.6 fL Normal 6.2-12.[address] [facility] Comment on above: Performed By: #### L 100.0100 ####[facility] [address] [place], [address] Platelets (Bld) [#/Vol] 251 10*3/uL Normal 150-[address] [facility] Comment on above: Performed By: #### L 100.0100 ####[facility] [address] [place], [address] RBC (Bld) [#/Vol] 3.08 10*6/uL Low 4.2-5.4 [facility] Comment on above: Performed By: #### L 100.0100 ####[facility] [address] [place], [address] RDW SD 53.9 fl High 35.1-43.[address] [facility] Comment on above: Performed By: #### L 100.0100 ####[facility] [address] [place], [address] WBC (Bld) [#/Vol] 5.3 10*3/uL Normal 4.4-11.0 [facility] Comment on above: Performed By: #### L 100.0100 ####[facility] [address] [place], [address] Bedside Glucoseon 06-21-2024 FINGERSTICK GLU 124 mg/dL High 74-[address] [facility] Comment on above: Result Comment: ABDIRAHMAN GEMENT OF PATIENT CARE PER NURSING PROTOCOL Performed By: #### L 501.080 ####[facility] [address] [place], [address] FINGERSTICK GLU 160 mg/dL High 74-[address] [facility] Comment on above: Result Comment: ABDIRAHMAN GEMENT OF PATIENT CARE PER NURSING PROTOCOL Performed By: #### L 501.080 ####[facility] [address] [place], [address] FINGERSTICK GLU 117 mg/dL High 74-[address] [facility] Comment on above: Result Comment: ABDIRAHMAN GEMENT OF PATIENT CARE PER NURSING PROTOCOL Performed By: #### L 501.080 ####[facility] [address] [place], [address] FINGERSTICK GLU 96 mg/dL Normal 74-[address] [facility] Comment on above: Result Comment: ABDIRAHMAN GEMENT OF PATIENT CARE PER NURSING PROTOCOL Performed By: #### L 501.080 ####[facility] [address] [place], [address] Bedside Glucoseon 06-20-2024 FINGERSTICK GLU 149 mg/dL High 74-[address] [facility] Comment on above: Result Comment: ABDIRAHMAN GEMENT OF PATIENT CARE PER NURSING PROTOCOL Performed By: #### L 501.080 ####[facility] [address] [place], [address] FINGERSTICK GLU 77 mg/dL Normal 74-[address] [facility] Comment on above: Result Comment: ABDIRAHMAN GEMENT OF PATIENT CARE PER NURSING PROTOCOL Performed By: #### L 501.080 ####[facility] [address] [place], [address] FINGERSTICK GLU 144 mg/dL High 74-[address] [facility] Comment on above: Result Comment: ABDIRAHMAN GEMENT OF PATIENT CARE PER NURSING PROTOCOL Performed By: #### L 501.080 ####[facility] [address] [place], [address] FINGERSTICK GLU 132 mg/dL High 74-[address] [facility] Comment on above: Result Comment: ABDIRAHMAN GEMENT OF PATIENT CARE PER NURSING PROTOCOL Performed By: #### L 501.080 ####[facility] [address] [place], [address] Bedside Glucoseon 5 FINGERSTICK GLU 146 mg/dL High 74-[address] [facility] Comment on above: Result Comment: ABDIRAHMAN GEMENT OF PATIENT CARE PER NURSING PROTOCOL Performed By: #### L 501.080 ####[facility] [address] [place], [address] FINGERSTICK GLU 143 mg/dL High 74-[address] [facility] Comment on above: Result Comment: ABDIRAHMAN GEMENT OF PATIENT CARE PER NURSING PROTOCOL Performed By: #### L 501.080 ####[facility] [address] [place], [address] FINGERSTICK GLU 124 mg/dL High 74-[address] [facility] Comment on above: Result Comment: ABDIRAHMAN GEMENT OF PATIENT CARE PER NURSING PROTOCOL Performed By: #### L 501.080 ####[facility] [address] [place], [address] FINGERSTICK GLU 134 mg/dL High 74-[address] [facility] Comment on above: Result Comment: ABDIRAHMAN GEMENT OF PATIENT CARE PER NURSING PROTOCOL Performed By: #### L 501.080 ####[facility] [address] [place], [address] EGD Reporton 06-19-2024 EGD Report Normal [facility] deOrdered By: Roney Sher on 06-19-2024 Glucose [Mass/Vol] 124 mg/dL High 74-106 [facility] Comment on above: MANAGEMENT OF PATIEN T CARE PER NURSING PROTOCOL MR/PAT.ANEon 06-19-2024 MR/PAT.ANE Normal [facility] MR/POSTOP.ANEon 06-19-2024 MR/POSTOP.ANE Normal [facility] MR/PGRMKSID7qp 06-19-2024 MR/POSTOPAN2 Normal [facility] Surgery Specimen Level Eladio 06-19-2024 Surgery Specimen Level IV Normal [facility] Comment on above: Performed By: #### P SUIV ####[facility] [address] [place], [place], [id number] Activated partial thrombopla stin time (aPTT) in platelet poor plasma by coagulation aOrdered By: Sukhi Bartlett on 06-18-2024 aPTT Coag (PPP) [Time] 35.2 s 24.1-36.2 [facility] Basic Metabolic Profile (BMP )on 06-18-2024 BUN/CRE 31.6 RATIO High 10-[address] [facility] Comment on above: Performed By: #### L 300.3900, L500.2500, L100.0100, L300.4310 ####[facility] [address] [place], [address] Calcium [Mass/Vol] 8.9 mg/dL Normal 7.6-11.0 [facility] Comment on above: Performed By: #### L 300.3900, L500.2500, L100.0100, L300.4310 ####[facility] [address] [place], [address] Chloride [Moles/Vol] 106 mmol/L Normal 98-108 [facility] Comment on above: Performed By: #### L 300.3900, L500.2500, L100.0100, L300.4310 ####[facility] [address] [place], [address] CO2 [Moles/Vol] 26.0 mmol/L Normal 21.0-32.[address] [facility] Comment on above: Performed By: #### L 300.3900, L500.2500, L100.0100, L300.4310 ####[facility] [address] [place], [address] Creatinine [Mass/Vol] 1.25 mg/dL High 0.70-1.20 [facility] Comment on above: Performed By: #### L 300.3900, L500.2500, L100.0100, L300.4310 ####[facility] [address] [place], [address] ECRCL 38.23 ml/min Low 50-[address] [facility] Comment on above: Performed By: #### L 300.3900, L500.2500, L100.0100, L300.4310 ####[facility] [address] [place], [address] GAP 8 Normal 5-[address] [facility] Comment on above: Performed By: #### L 300.3900, L500.2500, L100.0100, L300.4310 ####[facility] [address] [place], [address] GFR/1.73 sq M.predicted among non-blacks MDRD (S/P/Bld) [Vol rate/Area] 46 mL/min/{1.73_m2} Low >60 [facility] Comment on above: Result Comment: mL/m in/1.73m2 CKD-EPI Creatinine Equation (2020) Performed By: #### L 300.3900, L500.2500, L100.0100, L300.4310 ####[facility] [address] [place], [address] Glucose [Mass/Vol] 131 mg/dL High 70-99 [facility] Comment on above: Performed By: #### L 300.3900, L500.2500, L100.0100, L300.4310 ####[facility] [address] [place], [address] Potassium [Moles/Vol] 4.8 mmol/L Normal 3.3-5.1 [facility] Comment on above: Performed By: #### L 300.3900, L500.2500, L100.0100, L300.4310 ####[facility] [address] [place], [address] Sodium [Moles/Vol] 141 mmol/L Normal 133-145 [facility] Comment on above: Performed By: #### L 300.3900, L500.2500, L100.0100, L300.4310 ####[facility] [address] [place], [address] Urea nitrogen [Mass/Vol] 40 mg/dL High 4-[address] [facility] Comment on above: Performed By: #### L 300.3900, L500.2500, L100.0100, L300.4310 ####[facility] [address] [place], [address] Bedside Glucoseon 06-18-2024 FINGERSTICK GLU 175 mg/dL High 74-[address] [facility] Comment on above: Result Comment: ABDIRAHMAN GEMENT OF PATIENT CARE PER NURSING PROTOCOL Performed By: #### L 501.080 ####[facility] [address] [place], [address] FINGERSTICK GLU 182 mg/dL High 74-[address] [facility] Comment on above: Result Comment: ABDIRAHMAN GEMENT OF PATIENT CARE PER NURSING PROTOCOL Performed By: #### L 501.080 ####[facility] [address] [place], [address] FINGERSTICK GLU 138 mg/dL High 74-[address] [facility] Comment on above: Result Comment: ABDIRAHMAN GEMENT OF PATIENT CARE PER NURSING PROTOCOL Performed By: #### L 501.080 ####[facility] [address] [place], [address] FINGERSTICK GLU 124 mg/dL High 74-[address] [facility] Comment on above: Result Comment: ABDIRAHMAN GEMENT OF PATIENT CARE PER NURSING PROTOCOL Performed By: #### L 501.080 ####[facility] [address] [place], [address] CBC W/Diff, Automatedon 05-0 -2024 Absolute Lymph 1.91 X10 3/uL Normal 0.83-4.[address] [facility] Comment on above: Performed By: #### L 300.3900, L500.2500, L100.0100, L300.4310 ####[facility] [address] [place], [address] Absolute Neut 2.9 X10 3/uL Normal 2.0-7.[address] [facility] Comment on above: Performed By: #### L 300.3900, L500.2500, L100.0100, L300.4310 ####[facility] [address] [place], [address] Basophils/100 WBC (Bld) 0.3 % Normal 0-1 [facility] Comment on above: Performed By: #### L 300.3900, L500.2500, L100.0100, L300.4310 ####[facility] [address] [place], [address] Eosinophils/100 WBC (Bld) 4.0 % Normal 0-[address] [facility] Comment on above: Performed By: #### L 300.3900, L500.2500, L100.0100, L300.4310 ####[facility] [address] [place], [address] Erythrocyte distribution width (RBC) [Ratio] 16.6 % High 11.6-14.[address] [facility] Comment on above: Performed By: #### L 300.3900, L500.2500, L100.0100, L300.4310 ####[facility] [address] [place], [address] Hematocrit (Bld) [Volume fraction] 29.3 % Low 37-[address] [facility] Comment on above: Performed By: #### L 300.3900, L500.2500, L100.0100, L300.4310 ####[facility] [address] [place], [address] Hemoglobin (Bld) [Mass/Vol] 9.6 g/dL Low 12.0-15.[address] [facility] Comment on above: Performed By: #### L 300.3900, L500.2500, L100.0100, L300.4310 ####[facility] [address] [place], [address] IG% 3.000 High 0.0-0.[address] [facility] Comment on above: Result Comment: IG% - Immature Granulocytes (promyelocytes, myelocytes andmetamyelocytes) > 1% indicates that a LEFT SHIFT is Present. Performed By: #### L 300.3900, L500.2500, L100.0100, L300.4310 ####[facility] [address] [place], [address] Lymphocytes/100 WBC (Bld) 31.8 % Normal 19-[address] [facility] Comment on above: Performed By: #### L 300.3900, L500.2500, L100.0100, L300.4310 ####[facility] [address] [place], [address] MCH (RBC) [Entitic mass] 31.1 pg Normal 27.0-32.[address] [facility] Comment on above: Performed By: #### L 300.3900, L500.2500, L100.0100, L300.4310 ####[facility] [address] [place], [address] MCHC (RBC) [Mass/Vol] 32.8 g/dL Normal 32-36 [facility] Comment on above: Performed By: #### L 300.3900, L500.2500, L100.0100, L300.4310 ####[facility] [address] [place], [address] MCV (RBC) [Entitic vol] 94.8 fL Normal 81-99 [facility] Comment on above: Performed By: #### L 300.3900, L500.2500, L100.0100, L300.4310 ####[facility] [address] [place], [address] Monocytes/100 WBC (Bld) 12.1 % High 0-10 [facility] Comment on above: Performed By: #### L 300.3900, L500.2500, L100.0100, L300.4310 ####[facility] [address] [place], [address] Neutrophils/100 WBC (Bld) 48.8 % Normal 47-[address] [facility] Comment on above: Performed By: #### L 300.3900, L500.2500, L100.0100, L300.4310 ####[facility] [address] [place], [address] Nucleated RBC (Bld) [#/Vol] 0 10*3/uL Normal 0-[address] [facility] Comment on above: Performed By: #### L 300.3900, L500.2500, L100.0100, L300.4310 ####[facility] [address] [place], [address] Platelet mean volume (Bld) [Entitic vol] 9.4 fL Normal 6.2-12.[address] [facility] Comment on above: Performed By: #### L 300.3900, L500.2500, L100.0100, L300.4310 ####[facility] [address] [place], [address] Platelets (Bld) [#/Vol] 208 10*3/uL Normal 150-[address] [facility] Comment on above: Performed By: #### L 300.3900, L500.2500, L100.0100, L300.4310 ####[facility] [address] [place], [address] RBC (Bld) [#/Vol] 3.09 10*6/uL Low 4.2-5.4 [facility] Comment on above: Performed By: #### L 300.3900, L500.2500, L100.0100, L300.4310 ####[facility] [address] [place], [address] RDW SD 54.9 fl High 35.1-43.[address] [facility] Comment on above: Performed By: #### L 300.3900, L500.2500, L100.0100, L300.4310 ####[facility] [address] [place], [address] WBC (Bld) [#/Vol] 6.0 10*3/uL Normal 4.4-11.0 [facility] Comment on above: Performed By: #### L 300.3900, L500.2500, L100.0100, L300.4310 ####[facility] [facility] [address] [place], [address] HH, Hemoglobin AND Hematocri ton 06-18-2024 Hematocrit (Bld) [Volume fraction] 30.6 % Low 37-[address] [facility] Comment on above: Order Comment: 24 HO UR POST TRANSFUSION Performed By: #### L 100.0600 ####[facility] [address] [place], [address] Hemoglobin (Bld) [Mass/Vol] 10.2 g/dL Low 12.0-15.[address] [facility] Comment on above: Order Comment: 24 HO UR POST TRANSFUSION Performed By: #### L 100.0600 ####[facility] [address] [place], [address] International normalized rat io (INR) calculationOrdered By: Sukhi Bartlett on 06-18-2024 INR Coag (Bld) [Relative time] 1.4 {INR} [facility] MR/PAT.ANEon 06-18-2024 MR/PAT.ANE Normal [facility] Partial Thromboplast Timeon 06-18-2024 aPTT Coag (Bld) [Time] 35.2 s Normal 24.1-36.2 [facility] Comment on above: Performed By: #### L 300.3900, L500.2500, L100.0100, L300.4310 ####[facility] [address] [place], [address] Prothrombin Time w/INRon INR Coag (PPP) [Relative time] 1.4 {INR} Normal [facility] Comment on above: Performed By: #### L 300.3900, L500.2500, L100.0100, L300.4310 ####[facility] [address] [place], [address] PT Coag (PPP) [Time] 17.5 s High 11.7-14.9 [facility] Comment on above: Performed By: #### L 300.3900, L500.2500, L100.0100, L300.4310 ####[facility] [address] [place], [address] Prothrombin timeOrdered By: Sukhi Bartlett on 06-18-2024 PT Coag (PPP) [Time] 17.5 s High 11.7-14.9 [facility] BRCon 06-17-2024 RC Normal [facility] Comment on above: Result Comment: [id number] AN RC TRANSFUSED 06/17/24 [id number] AN RC TRANSFUSED 06/17/24 1354 Performed By: #### B RC, BTS ####[facility] [address] [place], [address] Basic Metabolic Profile (BMP )on 06-17-2024 BUN/CRE 39.7 RATIO High 10-[address] [facility] Comment on above: Performed By: #### L 500.4100, L500.2500 ####[facility] [address] [place], [address] Calcium [Mass/Vol] 8.7 mg/dL Normal 7.6-11.0 [facility] Comment on above: Performed By: #### L 500.4100, L500.2500 ####[facility] [address] [place], [address] Chloride [Moles/Vol] 108 mmol/L Normal 98-108 [facility] Comment on above: Performed By: #### L 500.4100, L500.2500 ####[facility] [address] [place], [address] CO2 [Moles/Vol] 22.4 mmol/L Normal 21.0-32.[address] [facility] Comment on above: Performed By: #### L 500.4100, L500.2500 ####[facility] [address] [place], [address] Creatinine [Mass/Vol] 1.09 mg/dL Normal 0.70-1.20 [facility] Comment on above: Performed By: #### L 500.4100, L500.2500 ####[facility] [address] [place], [address] ECRCL 43.84 ml/min Low 50-[address] [facility] Comment on above: Performed By: #### L 500.4100, L500.2500 ####[facility] [address] [place], [address] GAP 10 Normal 5-[address] [facility] Comment on above: Performed By: #### L 500.4100, L500.2500 ####[facility] [address] [place], [address] GFR/1.73 sq M.predicted among non-blacks MDRD (S/P/Bld) [Vol rate/Area] 54 mL/min/{1.73_m2} Low >60 [facility] Comment on above: Result Comment: mL/m in/1.73m2 CKD-EPI Creatinine Equation (2020) Performed By: #### L 500.4100, L500.2500 ####[facility] [address] [place], [address] Glucose [Mass/Vol] 155 mg/dL High 70-99 [facility] Comment on above: Performed By: #### L 500.4100, L500.2500 ####[facility] [address] [place], [address] Potassium [Moles/Vol] 4.7 mmol/L Normal 3.3-5.1 [facility] Comment on above: Performed By: #### L 500.4100, L500.2500 ####[facility] [address] [place], [address] Sodium [Moles/Vol] 140 mmol/L Normal 133-145 [facility] Comment on above: Performed By: #### L 500.4100, L500.2500 ####[facility] [address] [place], [address] Urea nitrogen [Mass/Vol] 43 mg/dL High 4-[address] [facility] Comment on above: Performed By: #### L 500.4100, L500.2500 ####[facility] [address] [place], [address] Bedside Glucoseon 06-17-2024 FINGERSTICK GLU 138 mg/dL High 74-[address] [facility] Comment on above: Result Comment: ABDIRAHMAN GEMENT OF PATIENT CARE PER NURSING PROTOCOL Performed By: #### L 501.080 ####[facility] [address] [place], [address] FINGERSTICK GLU 120 mg/dL High 74-[address] [facility] Comment on above: Result Comment: ABDIRAHMAN GEMENT OF PATIENT CARE PER NURSING PROTOCOL Performed By: #### L 501.080 ####[facility] [address] [place], [address] FINGERSTICK GLU 138 mg/dL High 74-[address] [facility] Comment on above: Result Comment: ABDIRAHMAN GEMENT OF PATIENT CARE PER NURSING PROTOCOL Performed By: #### L 501.080 ####[facility] [address] [place], [address] FINGERSTICK GLU 135 mg/dL High 74-[address] [facility] Comment on above: Result Comment: ABDIRAHMAN GEMENT OF PATIENT CARE PER NURSING PROTOCOL Performed By: #### L 501.080 ####[facility] [address] [place], [address] Calculated very low density lipoprotein (VLDL) cholesterol measurementOrdered By: Quentin Kellogg on 06-17-2024 Calculated very low density lipoprotein (VLDL) cholesterol measurement 17 mg/dL 5-[address] [facility] HH, Hemoglobin AND Hematocri ton 06-17-2024 Hematocrit (Bld) [Volume fraction] 21.4 % Low 37-[address] [facility] Comment on above: Performed By: #### L 100.0600 ####[facility] [address] [place], [place], [phone] Hemoglobin (Bld) [Mass/Vol] 6.6 g/dL Low 12.0-15.[address] [facility] Comment on above: Performed By: #### L 100.0600 ####[facility] [address] [place], [place], [phone]) LDL calc ser/plasOrdered By: Quentin Kellogg on 06-17-2024 Cholesterol in LDL [Mass/Vol] 66 mg/dL [facility] Comment on above: Avqwbjsyzl=667-848 m g/dL & Higher Fcet=033 mg/dL or greater Lipid Profileon 06-17-2024 CHOL:HDL 3.[address] [facility] Comment on above: Performed By: #### L 500.4100, L500.2500 ####[facility] [address] [place], [place], [phone] Cholesterol [Mass/Vol] 120 mg/dL Normal <=200 [facility] Comment on above: Result Comment: Chol esterol level, Desirable <200 mg/dLBorderline high cholesterol 200-239 mg/dLHigh cholesterol >=240 mg/dLRecommendations of the NCEP Adult Treatment Panel for thefollowing risk-cutoff thresholds for the [place] Americanpulation. Performed By: #### L 500.4100, L500.2500 ####[facility] [address] [place], [place], [phone] Cholesterol in HDL [Mass/Vol] 37 mg/dL Low [facility] Comment on above: Result Comment: Liya onal Cholesterol Education Program (NCEP) guidelines:<40 mg/dL: Low HDL-cholesterol (major risk factor for CHD)>= 60 mg/dL: High HDL-cholesterol (negative risk factor forCHD)HDL-cholesterol is affected by a number of factors, e.g.smoking, exercise, hormones, sex and age. Performed By: #### L 500.4100, L500.2500 ####[facility] [address] [place], [address] Cholesterol in LDL [Mass/Vol] 66 mg/dL Normal [facility] Comment on above: Result Comment: Bord iajihd=999-951 mg/dL Higher Nyyk=543 mg/dL or greater Performed By: #### L 500.4100, L500.2500 ####[facility] [address] [place], [address] Cholesterol in VLDL [Mass/Vol] 17 mg/dL Normal 5-[address] [facility] Comment on above: Performed By: #### L 500.4100, L500.2500 ####[facility] [address] [place], [address] Triglyceride [Mass/Vol] 83 mg/dL Normal [facility] Comment on above: Result Comment: The drugs N-Acetylcysteine and Metamizole may falselydepress this assay.Normal range: <150 mg/dLBorderline High: 150-199 mg/dLHigh: 200-499 mg/dLVery High: >500 mg/dL Performed By: #### L 500.4100, L500.2500 ####[facility] [address] [place], [address] MR/CON.PCM.GIon 06-17-2024 MR/CON.PCM.GI Normal [facility] Screening total cholesterol/ high density lipoprotein (HDL) cholesterol ratioOrdered By: Quentin Kellogg on 06-17-2024 Cholesterol.total/Cholest lorelei in HDL [Mass ratio] 3.23 {ratio} [facility] Serum or plasma cholesterol in HDL measurement (mass/volume)Ordered By: Quentin Kellogg on 06-17-2024 Cholesterol in HDL [Mass/Vol] 37 mg/dL Low >[address] [facility] Comment on above: National Cholesterol Education Program (NCEP) guidelines:<40 mg/dL: Low HDL-cholesterol (major risk factor for CHD)>= 60 mg/dL: High HDL-cholesterol (negative risk factor for CHD)HDL-cholesterol is affected by a number of factors, e.g. smoking, exercise, hormones, sex and age. Serum or plasma cholesterol measurement (mass/volume)Ordered By: Quentin Kellogg on 06-17-2024 Cholesterol [Mass/Vol] 120 mg/dL <201 [facility] Comment on above: Cholesterol level, D esirable <200 mg/dLBorderline high cholesterol 200-239 mg/dLHigh cholesterol >=240 mg/dLRecommendations of the NCEP Adult Treatment Panel for the following risk-cutoff thresholds for the [place] population. Triglycerides measurementOrd ered By: Quentin Kellogg on 06-17-2024 Triglyceride [Mass/Vol] 83 mg/dL <199 [facility] Comment on above: The drugs N-Acetylcy steine and Metamizole may falsely depress this assay. Normal range: <150 mg/dLBorderline High: 150-199 mg/dLHigh: 200-499 mg/dLVery High: >500 mg/dL Type AND Screenon 06-17-2024 Ab SCREEN GEL Negative Normal [facility] Comment on above: Order Comment: CMV N EG? NNumber of units to transfuse: 2Reason for Ordering Blood: AcuteAre the blood/blood products to be transfused? YIs the patient having/had surgery? YN06/17/2024NYA Performed By: #### B RC, BTS ####[facility] [address] [place], [place], [phone] Basic Metabolic Profile (BMP )on 06-16-2024 BUN/CRE 37.7 RATIO High 10-[address] [facility] Comment on above: Performed By: #### L 500.2500, L100.0100 ####[facility] [address] [place], [address] Calcium [Mass/Vol] 9.0 mg/dL Normal 7.6-11.0 [facility] Comment on above: Performed By: #### L 500.2500, L100.0100 ####[facility] [address] [place], [address] Chloride [Moles/Vol] 108 mmol/L Normal 98-108 [facility] Comment on above: Performed By: #### L 500.2500, L100.0100 ####[facility] [address] [place], [address] CO2 [Moles/Vol] 22.3 mmol/L Normal 21.0-32.[address] [facility] Comment on above: Performed By: #### L 500.2500, L100.0100 ####[facility] [address] [place], [address] Creatinine [Mass/Vol] 1.05 mg/dL Normal 0.70-1.20 [facility] Comment on above: Performed By: #### L 500.2500, L100.0100 ####[facility] [address] [place], [address] ECRCL 45.55 ml/min Low 50-[address] [facility] Comment on above: Performed By: #### L 500.2500, L100.0100 ####[facility] [address] [place], [address] GAP 8 Normal 5-[address] [facility] Comment on above: Performed By: #### L 500.2500, L100.0100 ####[facility] [address] [place], [address] GFR/1.73 sq M.predicted among non-blacks MDRD (S/P/Bld) [Vol rate/Area] 56 mL/min/{1.73_m2} Low >60 [facility] Comment on above: Result Comment: mL/m in/1.73m2 CKD-EPI Creatinine Equation (2020) Performed By: #### L 500.2500, L100.0100 ####[facility] [address] [place], [address] Glucose [Mass/Vol] 209 mg/dL High 70-99 [facility] Comment on above: Performed By: #### L 500.2500, L100.0100 ####[facility] [address] [place], [address] Potassium [Moles/Vol] 5.5 mmol/L High 3.3-5.1 [facility] Comment on above: Performed By: #### L 500.2500, L100.0100 ####[facility] [address] [place], [address] Sodium [Moles/Vol] 139 mmol/L Normal 133-145 [facility] Comment on above: Performed By: #### L 500.2500, L100.0100 ####[facility] [address] [place], [address] Urea nitrogen [Mass/Vol] 40 mg/dL High 4-[address] [facility] Comment on above: Performed By: #### L 500.2500, L100.0100 ####[facility] [address] [place], [address] BUN Normal 4-[address] [facility] Comment on above: Result Comment: Canc elled via OM: Duplicate Order Performed By: #### L 500.2500 ####[facility] [address] [place], [address] BUN/CRE Normal 10-[address] [facility] Comment on above: Result Comment: Canc elled via OM: Duplicate Order Performed By: #### L 500.2500 ####[facility] [address] [place], [address] Calcium Normal 7.6-11.[address] [facility] Comment on above: Result Comment: Canc elled via OM: Duplicate Order Performed By: #### L 500.2500 ####[facility] [address] [place], [address] CL Normal 98-[address] [facility] Comment on above: Result Comment: Canc elled via OM: Duplicate Order Performed By: #### L 500.2500 ####[facility] [address] [place], [address] CO2 Normal 21.0-32.[address] [facility] Comment on above: Result Comment: Canc elled via OM: Duplicate Order Performed By: #### L 500.2500 ####[facility] [address] [place], [address] CREAT,SERUM Normal 0.70-1.[address] [facility] Comment on above: Result Comment: Canc elled via OM: Duplicate Order Performed By: #### L 500.2500 ####[facility] [address] [place], [address] eGFR Normal >[address] [facility] Comment on above: Result Comment: Canc elled via OM: Duplicate Order Performed By: #### L 500.2500 ####[facility] [address] [place], [address] GAP Normal 5-[address] [facility] Comment on above: Result Comment: Canc elled via OM: Duplicate Order Performed By: #### L 500.2500 ####[facility] [address] [place], [address] GLU Normal 70-[address] [facility] Comment on above: Result Comment: Canc elled via OM: Duplicate Order Performed By: #### L 500.2500 ####[facility] [address] [place], [address] Potassium Normal 3.3-5.[address] [facility] Comment on above: Result Comment: Canc elled via OM: Duplicate Order Performed By: #### L 500.2500 ####[facility] [address] [place], [address] Basic Metabolic Profile (BMP) Normal 133-[address] [facility] Comment on above: Result Comment: Canc elled via OM: Duplicate Order Performed By: #### L 500.2500 ####[facility] [address] [place], [address] Bedside Glucoseon 06-16-2024 FINGERSTICK GLU 181 mg/dL High 74-[address] [facility] Comment on above: Result Comment: ABDIRAHMAN GEMENT OF PATIENT CARE PER NURSING PROTOCOL Performed By: #### L 501.080 ####[facility] [address] [place], [address] FINGERSTICK GLU 126 mg/dL High 74-[address] [facility] Comment on above: Result Comment: ABDIRAHMAN GEMENT OF PATIENT CARE PER NURSING PROTOCOL Performed By: #### L 501.080 ####[facility] [address] [place], [address] FINGERSTICK GLU 281 mg/dL High 74-[address] [facility] Comment on above: Result Comment: ABDIRAHMAN GEMENT OF PATIENT CARE PER NURSING PROTOCOL Performed By: #### L 501.080 ####[facility] [address] [place], [address] FINGERSTICK GLU 174 mg/dL High 74-[address] [facility] Comment on above: Result Comment: ABDIRAHMAN GEMENT OF PATIENT CARE PER NURSING PROTOCOL Performed By: #### L 501.080 ####[facility] [address] [place], [address] CBC W/Diff, Automatedon - Absolute Lymph 1.92 X10 3/uL Normal 0.83-4.[address] [facility] Comment on above: Performed By: #### L 500.2500, L100.0100 ####[facility] [address] [place], [address] Absolute Neut 3.0 X10 3/uL Normal 2.0-7.[address] [facility] Comment on above: Performed By: #### L 500.2500, L100.0100 ####[facility] [address] [place], [address] Basophils/100 WBC (Bld) 0.3 % Normal 0-1 [facility] Comment on above: Performed By: #### L 500.2500, L100.0100 ####[facility] [address] [place], [address] Eosinophils/100 WBC (Bld) 4.5 % Normal 0-[address] [facility] Comment on above: Performed By: #### L 500.2500, L100.0100 ####[facility] [address] [place], [address] Erythrocyte distribution width (RBC) [Ratio] 14.5 % Normal 11.6-14.[address] [facility] Comment on above: Performed By: #### L 500.2500, L100.0100 ####[facility] [address] [place], [address] Hematocrit (Bld) [Volume fraction] 21.1 % Low 37-[address] [facility] Comment on above: Performed By: #### L 500.2500, L100.0100 ####[facility] [address] [place], [address] Hemoglobin (Bld) [Mass/Vol] 6.7 g/dL Low 12.0-15.[address] [facility] Comment on above: Performed By: #### L 500.2500, L100.0100 ####[facility] [address] [place], [address] IG% 2.000 High 0.0-0.[address] [facility] Comment on above: Result Comment: IG% - Immature Granulocytes (promyelocytes, myelocytes andmetamyelocytes) > 1% indicates that a LEFT SHIFT is Present. Performed By: #### L 500.2500, L100.0100 ####[place] [facility] [address] [place], [address] Lymphocytes/100 WBC (Bld) 31.7 % Normal 19-[address] [facility] Comment on above: Performed By: #### L 500.2500, L100.0100 ####[facility] [address] [place], [address] MCH (RBC) [Entitic mass] 31.5 pg Normal 27.0-32.[address] [facility] Comment on above: Performed By: #### L 500.2500, L100.0100 ####[facility] [address] [place], [address] MCHC (RBC) [Mass/Vol] 31.8 g/dL Low 32-36 [facility] Comment on above: Performed By: #### L 500.2500, L100.0100 ####[facility] [address] [place], [address] MCV (RBC) [Entitic vol] 99.1 fL High 81-99 [facility] Comment on above: Performed By: #### L 500.2500, L100.0100 ####[facility] [address] [place], [address] Monocytes/100 WBC (Bld) 11.9 % High 0-10 [facility] Comment on above: Performed By: #### L 500.2500, L100.0100 ####[facility] [address] [place], [address] Neutrophils/100 WBC (Bld) 49.6 % Normal 47-[address] [facility] Comment on above: Performed By: #### L 500.2500, L100.0100 ####[facility] [address] [place], [address] Nucleated RBC (Bld) [#/Vol] 0 10*3/uL Normal 0-[address] [facility] Comment on above: Performed By: #### L 500.2500, L100.0100 ####[facility] [address] [place], [address] Platelet mean volume (Bld) [Entitic vol] 9.6 fL Normal 6.2-12.[address] [facility] Comment on above: Performed By: #### L 500.2500, L100.0100 ####[facility] [address] [place], [address] Platelets (Bld) [#/Vol] 175 10*3/uL Normal 150-[address] [facility] Comment on above: Performed By: #### L 500.2500, L100.0100 ####[facility] [address] [place], [address] RBC (Bld) [#/Vol] 2.13 10*6/uL Low 4.2-5.4 [facility] Comment on above: Performed By: #### L 500.2500, L100.0100 ####[facility] [address] [place], [address] RDW SD 51.8 fl High 35.1-43.[address] [facility] Comment on above: Performed By: #### L 500.2500, L100.0100 ####[facility] [address] [place], [address] WBC (Bld) [#/Vol] 6.1 10*3/uL Normal 4.4-11.0 [facility] Comment on above: Performed By: #### L 500.2500, L100.0100 ####[facility] [address] [place], [address] Iron measurement (mass/mass) Ordered By: Quentin Kellogg on 06-16-2024 Iron (Unsp spec) [Mass/Mass] 53 ug/dL 50-[address] [facility] Iron+Iron Binding Capacityon 06-16-2024 TIBC 204 ug/dL Low 250-[address] [facility] Comment on above: Performed By: #### L 503.6030 ####[facility] [address] [facility] [address] No Panel InformationOrdered By: Quentin Kellogg on 06-16-2024 Unsaturated Iron Binding Capacity 151 ug/dL Low 228-[address] [facility] [address] [facility] 151 ug/dL Low 228-[address] [facility] Serum or plasma iron saturat ion measurement (mass fraction)Ordered By: Quentin Kellogg on 06-16-2024 Iron saturation [Mass fraction] 26.0 % 13-[address] [facility] Stool Occult Blood iFOBon STOB Positive Normal [facility] Comment on above: Performed By: #### M 100.7900 ####[facility] [address] [facility] [address] Stool gastrointestinal hemog lobin detection by immunologic methodOrdered By: Quentin Kellogg on 06-16-2024 Lower GI hemoglobin IA Ql (Stl) Positive Abnormal [facility] Absolute lymphocyte countOrd ered By: Mitchel Graham on 06-15-2024 Lymphocytes Auto (Unsp spec) [#/Vol] 1.92 10*3/uL 0.83-4.[address] [facility] Absolute neutrophil countOrd ered By: Mitchel Graham on 06-15-2024 Neutrophils (Bld) [#/Vol] 3.2 10*3/uL 2.0-7.[address] [facility] Anion gap in Serum or Plasma Ordered By: Mitchel Graham on 06-15-2024 Anion gap [Moles/Vol] 8 mmol/L 5-15 [facility] Automated blood erythrocyte countOrdered By: Mitchel Graham on 06-15-2024 RBC (Bld) [#/Vol] 2.31 10*6/uL Low 4.2-5.4 [facility] Comment on above: Performed By: #### L 801.0010, L500.2500, L100.0100 ####[facility] [address] [place], [address] Automated blood hematocrit ( percentage)Ordered By: Mitchel Graham on 06-15-2024 Hematocrit (Bld) [Volume fraction] 22.9 % Low 37-[address] [facility] Comment on above: Performed By: #### L 801.0010, L500.2500, L100.0100 ####[facility] [address] [place], [address] Automated lymphocyte count a s percentage of total leukocytesOrdered By: Mitchel Graham on 06-15-2024 Lymphocytes/100 WBC Auto (Unsp spec) 31.5 % 19-[address] [facility] BUN/creatinine ratioOrdered By: Mitchel Graham on 06-15-2024 Urea nitrogen/Creatinine [Mass ratio] 44.8 mg/mg High 10-[address] [facility] Basic Metabolic Profile (BMP )on 06-15-2024 BUN/CRE 44.8 RATIO High 10-[address] [facility] Comment on above: Performed By: #### L 801.0010, L500.2500, L100.0100 ####[facility] [address] [place], [address] ECRCL 44.06 ml/min Low 50-[address] [facility] Comment on above: Performed By: #### L 801.0010, L500.2500, L100.0100 ####[facility] [address] [place], [address] GAP 8 Normal 5-[address] [facility] Comment on above: Performed By: #### L 801.0010, L500.2500, L100.0100 ####[facility] [address] [place], [address] Potassium [Moles/Vol] 5.2 mmol/L High 3.3-5.1 [facility] Comment on above: Performed By: #### L 801.0010, L500.2500, L100.0100 ####[facility] [address] [place], [address] Basophil percentageOrdered B y: Mitchel Graham on 06-15-2024 Basophils/100 WBC (Bld) 0.2 % Normal 0-1 [facility] Comment on above: Performed By: #### L 801.0010, L500.2500, L100.0100 ####[facility] [address] [place], [address] Bedside Glucoseon 06-15-2024 FINGERSTICK GLU 286 mg/dL High -[address] [place] [address] Comment on above: Result Comment: ABDIRAHMAN GEMENT OF PATIENT CARE PER NURSING PROTOCOL Performed By: #### L 501.080 ####[facility] [address] [place], [address] FINGERSTICK GLU 184 mg/dL High [address] [place] [address] Comment on above: Result Comment: ABDIRAHMAN GEMENT OF PATIENT CARE PER NURSING PROTOCOL Performed By: #### L 501.080 ####[facility] [address] [place], [address] FINGERSTICK GLU 263 mg/dL High [address] [place] [address] Comment on above: Result Comment: ABDIRAHMAN GEMENT OF PATIENT CARE PER NURSING PROTOCOL Performed By: #### L 501.080 ####[facility] [address] [place], [address] FINGERSTICK GLU 226 mg/dL High [address] [place] [address] Comment on above: Result Comment: ABDIRAHMAN GEMENT OF PATIENT CARE PER NURSING PROTOCOL Performed By: #### L 501.080 ####[facility] [address] [place], [address] CBC W/Diff, Automatedon - Absolute Lymph 1.92 X10 3/uL Normal 0.83-4.[address] [facility] Comment on above: Performed By: #### L 801.0010, L500.2500, L100.0100 ####[facility] [address] [place], [address] Absolute Neut 3.2 X10 3/uL Normal 2.0-7.[address] [facility] Comment on above: Performed By: #### L 801.0010, L500.2500, L100.0100 ####[facility] [address] [place], [address] IG% 1.300 High 0.0-0.[address] [facility] Comment on above: Result Comment: IG% - Immature Granulocytes (promyelocytes, myelocytes andmetamyelocytes) > 1% indicates that a LEFT SHIFT is Present. Performed By: #### L 801.0010, L500.2500, L100.0100 ####[facility] [address] [place], [address] Lymphocytes/100 WBC (Bld) 31.5 % Normal 19-[address] [facility] Comment on above: Performed By: #### L 801.0010, L500.2500, L100.0100 ####[facility] [address] [place], [address] Nucleated RBC (Bld) [#/Vol] 0 10*3/uL Normal 0-[address] [facility] Comment on above: Performed By: #### L 801.0010, L500.2500, L100.0100 ####[facility] [address] [place], [address] RDW SD 52.2 fl High 35.1-43.[address] [facility] Comment on above: Performed By: #### L 801.0010, L500.2500, L100.0100 ####[facility] [address] [place], [address] Carbon dioxide, total [Moles /volume] in Central venous bloodOrdered By: Mitchel Graham on 06-15-2024 CO2 [Moles/Vol] 22.5 mmol/L Normal 21.0-32.[address] [facility] Comment on above: Performed By: #### L 801.0010, L500.2500, L100.0100 ####[facility] [address] [place], [address] Chloride assayOrdered By: Aries Graham on 06-15-2024 Chloride [Moles/Vol] 107 mmol/L Normal 98-108 [facility] Comment on above: Performed By: #### L 801.0010, L500.2500, L100.0100 ####[facility] [address] [place], [address] Eosinophil percentageOrdered By: Mitchel Graham on 06-15-2024 Eosinophils/100 WBC (Bld) 3.3 % Normal 0-[address] [facility] Comment on above: Performed By: #### L 801.0010, L500.2500, L100.0100 ####[facility] [address] [place], [address] Erythrocyte distribution wid th ratioOrdered By: Mitchel Graham on 06-15-2024 Erythrocyte distribution width (RBC) [Ratio] 14.3 % Normal 11.6-14.[address] [facility] Comment on above: Performed By: #### L 801.0010, L500.2500, L100.0100 ####[facility] [address] [place], [address] Erythrocyte distribution wid th standard deviationOrdered By: Mitchel Graham on 06-15-2024 Erythrocyte distribution width (RBC) [Ratio] 52.2 fl High 35.1-43.[address] [facility] Glomerular filtration rate ( GFR) estimation/1.73 sq m using serum, plasma, or whole bOrdered By: Mitchel Graham on 06-15-2024 GFR/1.73 sq M.predicted among non-blacks MDRD (S/P/Bld) [Vol rate/Area] 55 mL/min/{1.73_m2} Low >60 [facility] Comment on above: mL/min/1.73m2 CKD-EP I Creatinine Equation (2020) Result Comment: mL/m in/1.73m2 CKD-EPI Creatinine Equation (2020) Performed By: #### L 801.0010, L500.2500, L100.0100 ####[facility] [address] [place], [address] [facility] deOrdered By: Mitchel Graham on 06-15-2024 Glucose [Mass/Vol] 263 mg/dL High 74-106 [facility] Comment on above: MANAGEMENT OF PATIEN T CARE PER NURSING PROTOCOL Hemoglobin measurementOrdere d By: Mitchel Graham on 06-15-2024 Hemoglobin (Bld) [Mass/Vol] 7.2 g/dL Low 12.0-15.[address] [facility] Comment on above: Performed By: #### L 801.0010, L500.2500, L100.0100 ####[facility] [address] [place], [address] Immature granulocytes/100 WB C Auto (Bld)Ordered By: Mitchel Graham on 06-15-2024 Immature granulocytes/100 WBC (Bld) 1.300 % High 0.0-0.[address] [facility] Comment on above: IG% - Immature Granu locytes (promyelocytes, myelocytes and metamyelocytes) > 1% indicates that a LEFT SHIFT is Present. MCV (mean corpuscular volume ) determinationOrdered By: Mitchel Graham on 06-15-2024 MCV (RBC) [Entitic vol] 99.1 fL High 81-99 [facility] Comment on above: Performed By: #### L 801.0010, L500.2500, L100.0100 ####[facility] [address] [place], [address] Mean corpuscular hemoglobin (MCH) determinationOrdered By: Mitchel Graham on 06-15-2024 MCH (RBC) [Entitic mass] 31.2 pg Normal 27.0-32.[address] [facility] Comment on above: Performed By: #### L 801.0010, L500.2500, L100.0100 ####[facility] [address] [place], [address] Mean corpuscular hemoglobin concentration (MCHC) determinationOrdered By: Mitchel Graham on 06-15-2024 MCHC (RBC) [Mass/Vol] 31.4 g/dL Low 32-36 [facility] Comment on above: Performed By: #### L 801.0010, L500.2500, L100.0100 ####[facility] [address] [place], [address] Mean platelet volume determi nationOrdered By: Mitchel Graham on 06-15-2024 Platelet mean volume (Bld) [Entitic vol] 9.9 fL Normal 6.2-12.[address] [facility] Comment on above: Performed By: #### L 801.0010, L500.2500, L100.0100 ####[facility] [address] [place], [address] Monocyte percentageOrdered B y: Mitchel Graham on 06-15-2024 Monocytes/100 WBC (Bld) 10.7 % High 0-10 [facility] Comment on above: Performed By: #### L 801.0010, L500.2500, L100.0100 ####[facility] [address] [place], [address] Multple Sclerosis Panelon CAP Reflx Cult Normal [facility] Comment on above: Result Comment: NOT CSF COLLECTED. RE-ORDER IF NEEDED Performed By: #### L 801.0010, L500.2500, L100.0100 ####[facility] [address] [place], [address] CSF ALBUMIN Normal [facility] Comment on above: Result Comment: NOT CSF COLLECTED. RE-ORDER IF NEEDED Performed By: #### L 801.0010, L500.2500, L100.0100 ####[facility] [address] [place], [address] CSF IgG Normal [facility] Comment on above: Result Comment: NOT CSF COLLECTED. RE-ORDER IF NEEDED Performed By: #### L 801.0010, L500.2500, L100.0100 ####[facility] [address] [place], [address] CSF IgG INDEX Normal [facility] Comment on above: Result Comment: NOT CSF COLLECTED. RE-ORDER IF NEEDED Performed By: #### L 801.0010, L500.2500, L100.0100 ####[facility] [address] [place], [address] CSF IgG SYN RAT Normal [facility] Comment on above: Result Comment: NOT CSF COLLECTED. RE-ORDER IF NEEDED Performed By: #### L 801.0010, L500.2500, L100.0100 ####[facility] [address] [place], [address] CSF:SER ALB IND Normal [facility] Comment on above: Result Comment: NOT CSF COLLECTED. RE-ORDER IF NEEDED Performed By: #### L 801.0010, L500.2500, L100.0100 ####[facility] [address] [place], [address] IGG:ALB RATIO Normal [facility] Comment on above: Result Comment: NOT CSF COLLECTED. RE-ORDER IF NEEDED Performed By: #### L 801.0010, L500.2500, L100.0100 ####[facility] [address] [place], [address] MBP CSF Normal [facility] Comment on above: Result Comment: NOT CSF COLLECTED. RE-ORDER IF NEEDED Performed By: #### L 801.0010, L500.2500, L100.0100 ####[facility] [address] [place], [address] OLIG BAND COM Normal [facility] Comment on above: Result Comment: NOT CSF COLLECTED. RE-ORDER IF NEEDED Performed By: #### L 801.0010, L500.2500, L100.0100 ####[facility] [address] [place], [address] OLIGOCLONAL BND Normal [facility] Comment on above: Result Comment: NOT CSF COLLECTED. RE-ORDER IF NEEDED Performed By: #### L 801.0010, L500.2500, L100.0100 ####[facility] [address] [place], [address] SERUM ALBUMIN Normal [facility] Comment on above: Result Comment: NOT CSF COLLECTED. RE-ORDER IF NEEDED Performed By: #### L 801.0010, L500.2500, L100.0100 ####[facility] [address] [place], [address] SERUM IgG Normal [facility] Comment on above: Result Comment: NOT CSF COLLECTED. RE-ORDER IF NEEDED Performed By: #### L 801.0010, L500.2500, L100.0100 ####[facility] [address] [place], [address] Neutrophil percentageOrdered By: Mitchel Graham on 06-15-2024 Neutrophils/100 WBC (Bld) 53.0 % Normal 47-[address] [facility] Comment on above: Performed By: #### L 801.0010, L500.2500, L100.0100 ####[facility] [address] [place], [address] Nucleated red blood cell per centageOrdered By: Mitchel Graham on 06-15-2024 Nucleated RBC/100 WBC (Bld) [Ratio] 0 % 0-[address] [facility] Phosphoruson 06-15-2024 Phosphate [Mass/Vol] 2.9 mg/dL Normal 2.7-4.5 [facility] Comment on above: Performed By: #### L 501.2300 ####[facility] [address] [place], [address] Platelet countOrdered By: Aries Graham on 06-15-2024 Platelets (Bld) [#/Vol] 150 10*3/uL Normal 150-[address] [facility] Comment on above: Performed By: #### L 801.0010, L500.2500, L100.0100 ####[facility] [address] [place], [address] Potassium measurement (mass/ volume)Ordered By: Mitchel Graham on 06-15-2024 Potassium (Unsp spec) [Mass/Vol] 5.2 mmol/L High 3.3-5.[address] [facility] Serum creatinine measurement (mass/volume)Ordered By: Mitchel Graham on 06-15-2024 Creatinine [Mass/Vol] 1.07 mg/dL Normal 0.70-1.20 [facility] Comment on above: Performed By: #### L 801.0010, L500.2500, L100.0100 ####[facility] [address] [place], [address] Serum glucose measurement (m ass/volume)Ordered By: Mitchel Graham on 06-15-2024 Glucose [Mass/Vol] 214 mg/dL High 70-99 [facility] Comment on above: Performed By: #### L 801.0010, L500.2500, L100.0100 ####[facility] [address] [place], [address] Serum or plasma calcium swetha urement (mass/volume)Ordered By: Mitchel Graham on 06-15-2024 Calcium [Mass/Vol] 8.9 mg/dL Normal 7.6-11.0 [facility] Comment on above: Performed By: #### L 801.0010, L500.2500, L100.0100 ####[facility] [address] [place], [address] Serum or plasma urea nitroge n measurement (mass/volume)Ordered By: Mitchel Graham on 06-15-2024 Urea nitrogen [Mass/Vol] 48 mg/dL High 4-[address] [facility] Comment on above: Performed By: #### L 801.0010, L500.2500, L100.0100 ####[facility] [address] [place], [address] Sodium levelOrdered By: Jonathan Graham on 06-15-2024 Sodium [Moles/Vol] 137 mmol/L Normal 133-145 [facility] Comment on above: Performed By: #### L 801.0010, L500.2500, L100.0100 ####[facility] [address] [place], [address] White blood cell (WBC) count Ordered By: Mitchel Graham on 06-15-2024 WBC (Bld) [#/Vol] 6.1 10*3/uL Normal 4.4-11.0 [facility] Comment on above: Performed By: #### L 801.0010, L500.2500, L100.0100 ####[facility] [address] [place], [address] Bedside Glucoseon 06-14-2024 FINGERSTICK GLU 246 mg/dL High [address] [facility] Comment on above: Result Comment: ABDIRAHMAN GEMENT OF PATIENT CARE PER NURSING PROTOCOL Performed By: #### L 501.080 ####[facility] [address] [place], [address] FINGERSTICK GLU 260 mg/dL High 74-[address] [facility] Comment on above: Result Comment: ABDIRAHMAN GEMENT OF PATIENT CARE PER NURSING PROTOCOL Performed By: #### L 501.080 ####[facility] [address] [place], [address] FINGERSTICK GLU 297 mg/dL High [address] [facility] Comment on above: Result Comment: ABDIRAHMAN GEMENT OF PATIENT CARE PER NURSING PROTOCOL Performed By: #### L 501.080 ####[facility] [address] [place], [address] FINGERSTICK GLU 249 mg/dL High 74-[address] [facility] Comment on above: Result Comment: ABDIRAHMAN GEMENT OF PATIENT CARE PER NURSING PROTOCOL Performed By: #### L 501.080 ####[facility] [address] [place], [address] HH, Hemoglobin AND Hematocri ton 06-14-2024 Hematocrit (Bld) [Volume fraction] 28.0 % Low 37-[address] [facility] Comment on above: Performed By: #### L 100.0600 ####[facility] [address] [place], [address] Hemoglobin (Bld) [Mass/Vol] 8.9 g/dL Low 12.0-15.[address] [facility] Comment on above: Performed By: #### L 100.0600 ####[facility] [address] [place], [address] Bedside Glucoseon 06-13-2024 FINGERSTICK GLU 211 mg/dL High 74-[address] [facility] Comment on above: Result Comment: ABDRIAHMAN GEMENT OF PATIENT CARE PER NURSING PROTOCOL Performed By: #### L 501.080 ####[facility] [address] [place], [address] FINGERSTICK GLU 307 mg/dL High 74-[address] [facility] Comment on above: Result Comment: ABDIRAHMAN GEMENT OF PATIENT CARE PER NURSING PROTOCOL Performed By: #### L 501.080 ####[facility] [address] [place], [address] FINGERSTICK GLU 292 mg/dL High 74-[address] [facility] Comment on above: Result Comment: ABDIRAHMAN GEMENT OF PATIENT CARE PER NURSING PROTOCOL Performed By: #### L 501.080 ####[facility] [address] [place], [address] FINGERSTICK GLU 202 mg/dL High 74-[address] [facility] Comment on above: Result Comment: ABDIRAHMAN GEMENT OF PATIENT CARE PER NURSING PROTOCOL Performed By: #### L 501.080 ####[facility] [address] [place], [address] Basic Metabolic Profile (BMP )on 06-12-2024 BUN/CRE 29.3 RATIO High 10-[address] [facility] Comment on above: Performed By: #### L 100.0500, L500.2500 ####[facility] [address] [place], [address] Calcium [Mass/Vol] 8.8 mg/dL Normal 7.6-11.0 [facility] Comment on above: Performed By: #### L 100.0500, L500.2500 ####[facility] [address] [place], [address] Chloride [Moles/Vol] 107 mmol/L Normal 98-108 [facility] Comment on above: Performed By: #### L 100.0500, L500.2500 ####[facility] [address] [place], [address] CO2 [Moles/Vol] 19.9 mmol/L Low 21.0-32.[address] [facility] Comment on above: Performed By: #### L 100.0500, L500.2500 ####[facility] [address] [place], [address] Creatinine [Mass/Vol] 1.13 mg/dL Normal 0.70-1.20 [facility] Comment on above: Performed By: #### L 100.0500, L500.2500 ####[facility] [address] [place], [address] ECRCL 41.72 ml/min Low 50-[address] [facility] Comment on above: Performed By: #### L 100.0500, L500.2500 ####[facility] [address] [place], [address] GAP 12 Normal 5-[address] [facility] Comment on above: Performed By: #### L 100.0500, L500.2500 ####[facility] [address] [place], [address] GFR/1.73 sq M.predicted among non-blacks MDRD (S/P/Bld) [Vol rate/Area] 51 mL/min/{1.73_m2} Low >60 [facility] Comment on above: Result Comment: mL/m in/1.73m2 CKD-EPI Creatinine Equation (2020) Performed By: #### L 100.0500, L500.2500 ####[facility] [address] [place], [address] Glucose [Mass/Vol] 237 mg/dL High 70-99 [facility] Comment on above: Performed By: #### L 100.0500, L500.2500 ####[facility] [address] [place], [address] Potassium [Moles/Vol] 4.8 mmol/L Normal 3.3-5.1 [facility] Comment on above: Performed By: #### L 100.0500, L500.2500 ####[facility] [address] [place], [address] Sodium [Moles/Vol] 139 mmol/L Normal 133-145 [facility] Comment on above: Performed By: #### L 100.0500, L500.2500 ####[facility] [address] [place], [address] Urea nitrogen [Mass/Vol] 33 mg/dL High 4-[address] [facility] Comment on above: Performed By: #### L 100.0500, L500.2500 ####[facility] [address] [place], [address] Bedside Glucoseon 06-12-2024 FINGERSTICK GLU 321 mg/dL High 74-[address] [facility] Comment on above: Result Comment: ABDIRAHMAN GEMENT OF PATIENT CARE PER NURSING PROTOCOL Performed By: #### L 501.080 ####[facility] [address] [place], [address] FINGERSTICK GLU 249 mg/dL High 74-[address] [facility] Comment on above: Result Comment: ABDIRAHMAN GEMENT OF PATIENT CARE PER NURSING PROTOCOL Performed By: #### L 501.080 ####[facility] [address] [place], [address] FINGERSTICK GLU 233 mg/dL High 74-[address] [facility] Comment on above: Result Comment: ABDIRAHMAN GEMENT OF PATIENT CARE PER NURSING PROTOCOL Performed By: #### L 501.080 ####[facility] [address] [place], [address] FINGERSTICK GLU 232 mg/dL High 74-[address] [facility] Comment on above: Result Comment: ABDIRAHMAN GEMENT OF PATIENT CARE PER NURSING PROTOCOL Performed By: #### L 501.080 ####[facility] [address] [place], [address] CBC-Complete Blood Cnt No Di ffon 06-12-2024 Erythrocyte distribution width (RBC) [Ratio] 13.8 % Normal 11.6-14.[address] [facility] Comment on above: Performed By: #### L 100.0500, L500.2500 ####[facility] [address] [place], [address] Hematocrit (Bld) [Volume fraction] 25.3 % Low 37-[address] [facility] Comment on above: Performed By: #### L 100.0500, L500.2500 ####[facility] [address] [place], [address] Hemoglobin (Bld) [Mass/Vol] 8.0 g/dL Low 12.0-15.[address] [facility] Comment on above: Performed By: #### L 100.0500, L500.2500 ####[facility] [address] [place], [address] MCH (RBC) [Entitic mass] 31.0 pg Normal 27.0-32.[address] [facility] Comment on above: Performed By: #### L 100.0500, L500.2500 ####[facility] [address] [place], [address] MCHC (RBC) [Mass/Vol] 31.6 g/dL Low 32-36 [facility] Comment on above: Performed By: #### L 100.0500, L500.2500 ####[facility] [address] [place], [address] MCV (RBC) [Entitic vol] 98.1 fL Normal 81-99 [facility] Comment on above: Performed By: #### L 100.0500, L500.2500 ####[facility] [address] [place], [address] Platelet mean volume (Bld) [Entitic vol] 10.6 fL Normal 6.2-12.[address] [facility] Comment on above: Performed By: #### L 100.0500, L500.2500 ####[facility] [address] [place], [address] Platelets (Bld) [#/Vol] 127 10*3/uL Low 150-[address] [facility] Comment on above: Performed By: #### L 100.0500, L500.2500 ####[facility] [address] [place], [address] RBC (Bld) [#/Vol] 2.58 10*6/uL Low 4.2-5.4 [facility] Comment on above: Performed By: #### L 100.0500, L500.2500 ####[facility] [address] [place], [address] RDW SD 49.9 fl High 35.1-43.[address] [facility] Comment on above: Performed By: #### L 100.0500, L500.2500 ####[facility] [address] [place], [address] WBC (Bld) [#/Vol] 7.3 10*3/uL Normal 4.4-11.0 [facility] Comment on above: Performed By: #### L 100.0500, L500.2500 ####[facility] [address] [place], [address] Absolute neutrophil countOrd ered By: Nathen George on 06-11-2024 Neutrophils (Bld) [#/Vol] 4.3 10*3/uL 2.0-7.[address] [facility] Basophil percentageOrdered B y: Nathen George on 06-11-2024 Basophils/100 WBC (Bld) 0.1 % 0-1 [facility] Bedside Glucoseon 06-11-2024 FINGERSTICK GLU 294 mg/dL High 74-[address] [facility] Comment on above: Result Comment: ABDIRAHMAN GEMENT OF PATIENT CARE PER NURSING PROTOCOL Performed By: #### L 501.080 ####[facility] [address] [place], [address] FINGERSTICK GLU 223 mg/dL High 74-[address] [facility] Comment on above: Result Comment: ABDIRAHMAN GEMENT OF PATIENT CARE PER NURSING PROTOCOL Performed By: #### L 501.080 ####[facility] [address] [place], [address] FINGERSTICK GLU 168 mg/dL High 74-[address] [facility] Comment on above: Result Comment: ABDIRAHMAN GEMENT OF PATIENT CARE PER NURSING PROTOCOL Performed By: #### L 501.080 ####[facility] [address] [place], [address] CBC W/Diff, Automatedon 05-20 Absolute Lymph 2.02 X10 3/uL Normal 0.83-4.[address] [facility] Comment on above: Performed By: #### L 100.0100 ####[facility] [address] [place], [address] Absolute Neut 4.3 X10 3/uL Normal 2.0-7.[address] [facility] Comment on above: Performed By: #### L 100.0100 ####[facility] [address] [place], [address] Basophils/100 WBC (Bld) 0.1 % Normal 0-1 [facility] Comment on above: Performed By: #### L 100.0100 ####[facility] [address] [place], [address] Eosinophils/100 WBC (Bld) 2.3 % Normal 0-[address] [facility] Comment on above: Performed By: #### L 100.0100 ####[facility] [address] [place], [address] Erythrocyte distribution width (RBC) [Ratio] 14.5 % Normal 11.6-14.[address] [facility] Comment on above: Performed By: #### L 100.0100 ####[facility] [address] [place], [address] Hematocrit (Bld) [Volume fraction] 26.8 % Low 37-[address] [facility] Comment on above: Performed By: #### L 100.0100 ####[facility] [address] [place], [address] Hemoglobin (Bld) [Mass/Vol] 8.3 g/dL Low 12.0-15.[address] [facility] Comment on above: Performed By: #### L 100.0100 ####[facility] [address] [place], [address] IG% 0.300 Normal 0.0-0.[address] [facility] Comment on above: Result Comment: IG% - Immature Granulocytes (promyelocytes, myelocytes andmetamyelocytes) > 1% indicates that a LEFT SHIFT is Present. Performed By: #### L 100.0100 ####[facility] [address] [place], [address] Lymphocytes/100 WBC (Bld) 27.4 % Normal 19-[address] [facility] Comment on above: Performed By: #### L 100.0100 ####[facility] [address] [place], [address] MCH (RBC) [Entitic mass] 30.6 pg Normal 27.0-32.[address] [facility] Comment on above: Performed By: #### L 100.0100 ####[facility] [address] [place], [address] MCHC (RBC) [Mass/Vol] 31.0 g/dL Low 32-36 [facility] Comment on above: Performed By: #### L 100.0100 ####[facility] [address] [place], [address] MCV (RBC) [Entitic vol] 98.9 fL Normal 81-99 [facility] Comment on above: Performed By: #### L 100.0100 ####[facility] [address] [place], [address] Monocytes/100 WBC (Bld) 12.0 % High 0-10 [facility] Comment on above: Performed By: #### L 100.0100 ####[facility] [address] [place], [address] Neutrophils/100 WBC (Bld) 57.9 % Normal 47-[address] [facility] Comment on above: Performed By: #### L 100.0100 ####[facility] [address] [place], [address] Nucleated RBC (Bld) [#/Vol] 0 10*3/uL Normal 0-[address] [facility] Comment on above: Performed By: #### L 100.0100 ####[facility] [address] [place], [address] Platelet mean volume (Bld) [Entitic vol] 10.1 fL Normal 6.2-12.[address] [facility] Comment on above: Performed By: #### L 100.0100 ####[facility] [address] [place], [address] Platelets (Bld) [#/Vol] 118 10*3/uL Low 150-[address] [facility] Comment on above: Performed By: #### L 100.0100 ####[facility] [address] [place], [address] RBC (Bld) [#/Vol] 2.71 10*6/uL Low 4.2-5.4 [facility] Comment on above: Performed By: #### L 100.0100 ####[facility] [address] [place], [address] RDW SD 52.5 fl High 35.1-43.[address] [facility] Comment on above: Performed By: #### L 100.0100 ####[facility] [address] [place], [address] WBC (Bld) [#/Vol] 7.4 10*3/uL Normal 4.4-11.0 [facility] Comment on above: Performed By: #### L 100.0100 ####[facility] [address] [place], [address] Eosinophil percentageOrdered By: Nathen George on 06-11-2024 Eosinophils/100 WBC (Bld) 2.3 % 0-[address] [facility] Erythrocyte distribution wid th (RBC) [Ratio]Ordered By: Nathen George on 06-11-2024 Erythrocyte distribution width (RBC) [Entitic vol] 52.5 fL High 35.1-43.9 [facility] Erythrocyte distribution wid th ratioOrdered By: Nathen George on 06-11-2024 Erythrocyte distribution width (RBC) [Ratio] 14.5 % 11.6-14.[address] [facility] Femur Min 2 Viewson 06-12-19 25 Femur Min 2 Views Normal [facility] de[facility]dered By: Nathen George on 06-11-2024 Bedside Glucose (Misc Panel) 168 mg/dL High 74-[address] [facility] Comment on above: MANAGEMENT OF PATIEN T CARE PER NURSING PROTOCOL Hematocrit Auto (Bld) [Volum e fraction]Ordered By: Nathen George on 06-11-2024 Hematocrit (Bld) [Volume fraction] 26.8 % Low 37-[address] [facility] Hemoglobin measurementOrdere d By: Nathen George on 06-11-2024 Hemoglobin (Bld) [Mass/Vol] 8.3 g/dL Low 12.0-15.[address] [facility] Immature granulocytes/100 WB C Auto (Bld)Ordered By: Nathen George on 06-11-2024 Immature granulocytes/100 WBC (Bld) 0.300 % 0.0-0.[address] [facility] Comment on above: IG% - Immature Granu locytes (promyelocytes, myelocytes and metamyelocytes) > 1% indicates that a LEFT SHIFT is Present. Lymphocytes Auto (Unsp spec) [#/Vol]Ordered By: Nathen George on 06-11-2024 Lymphocytes (Bld) [#/Vol] 2.02 10*3/uL 0.83-4.[address] [facility] Lymphocytes/100 WBC Auto (Un sp spec)Ordered By: Nathen George on 06-11-2024 Lymphocytes/100 WBC (Bld) 27.4 % 19-[address] [facility] MCV (mean corpuscular volume ) determinationOrdered By: Nathen George on 06-11-2024 MCV (RBC) [Entitic vol] 98.9 fL 81-99 [facility] MR/POSTOP.ANEon 06-11-2024 MR/POSTOP.ANE Normal [facility] MR/WMDOCJVA7ay 06-11-2024 MR/POSTOPAN2 Normal [facility] Mean corpuscular hemoglobin (MCH) determinationOrdered By: Nathen George on 06-11-2024 MCH (RBC) [Entitic mass] 30.6 pg 27.0-32.[address] [facility] Mean corpuscular hemoglobin concentration (MCHC) determinationOrdered By: Nathen George on 06-11-2024 MCHC (RBC) [Mass/Vol] 31.0 g/dL Low 32-36 [facility] Mean platelet volume determi nationOrdered By: Nathen George on 06-11-2024 Platelet mean volume (Bld) [Entitic vol] 10.1 fL 6.2-12.[address] [facility] Monocyte percentageOrdered B y: Nathen George on 06-11-2024 Monocytes/100 WBC (Bld) 12.0 % High 0-10 [facility] Neutrophil percentageOrdered By: Nathen George on 06-11-2024 Neutrophils/100 WBC (Bld) 57.9 % 47-[address] [facility] Nucleated red blood cell per centageOrdered By: Nathen George on 06-11-2024 Nucleated RBC/100 WBC (Bld) [Ratio] 0 % 0-[address] [facility] Operative Reporton Operative Report Normal [facility] Phosphoruson 06-11-2024 Phosphate [Mass/Vol] 3.8 mg/dL Normal 2.7-4.5 [facility] Comment on above: Performed By: #### L 501.2300 ####[facility] [address] [place], [place], [id number] Platelet countOrdered By: Elvis George on 06-11-2024 Platelets (Bld) [#/Vol] 118 10*3/uL Low 150-[address] [facility] RBC Auto (Bld) [#/Vol]Ordere d By: Nathen George on 06-11-2024 RBC (Bld) [#/Vol] 2.71 10*6/uL Low 4.2-5.4 [facility] Serum phosphorus measurement Ordered By: Mitchel Munoz on 06-11-2024 Phosphorus Level 3.8 mg/dL 2.7-4.[address] [facility] White blood cell (WBC) count Ordered By: Nathen George on 06-11-2024 WBC (Bld) [#/Vol] 7.4 10*3/uL 4.4-11.0 [facility] Activated partial thrombopla stin time (aPTT) in platelet poor plasma by coagulation aOrdered By: Edward English on 06-10-2024 aPTT Coag (PPP) [Time] 26.2 s 24.1-36.2 [facility] Anion gap in Serum or Plasma Ordered By: Mitchel Munoz on 06-10-2024 Anion gap [Moles/Vol] 11 mmol/L 5-15 [facility] BUN/creatinine ratioOrdered By: Mitchel Munoz on 06-10-2024 Urea nitrogen/Creatinine [Mass ratio] 24.6 mg/mg High 10-[address] [facility] Bedside Glucoseon 06-10-2024 FINGERSTICK GLU 189 mg/dL High 74-[address] [place] [address] Comment on above: Result Comment: ABDIRAHMAN GEMENT OF PATIENT CARE PER NURSING PROTOCOL Performed By: #### L 501.080 ####[facility] [address] [facility] [address] FINGERSTICK GLU 239 mg/dL High [address] [place] [address] Comment on above: Result Comment: ABDIRAHMAN GEMENT OF PATIENT CARE PER NURSING PROTOCOL Performed By: #### L 501.080 ####[facility] [address] [facility] [address] FINGERSTICK GLU 177 mg/dL High [address] [place] [address] Comment on above: Result Comment: ABDIRAHMAN GEMENT OF PATIENT CARE PER NURSING PROTOCOL Performed By: #### L 501.080 ####[facility] [address] [facility] [address] FINGERSTICK GLU 256 mg/dL High [address] [place] [address] Comment on above: Result Comment: ABDIRAHMAN GEMENT OF PATIENT CARE PER NURSING PROTOCOL Performed By: #### L 501.080 ####[facility] [address] [place], [address] FINGERSTICK GLU 172 mg/dL High 74-[address] [facility] Comment on above: Result Comment: ABDIRAHMAN GEMENT OF PATIENT CARE PER NURSING PROTOCOL Performed By: #### L 501.080 ####[facility] [address] [place], [address] FINGERSTICK GLU 205 mg/dL High 74-[address] [facility] Comment on above: Result Comment: ABDIRAHMAN GEMENT OF PATIENT CARE PER NURSING PROTOCOL Performed By: #### L 501.080 ####[facility] [address] [place], [address] Bilirubin, totalOrdered By: Mitchel Munoz on 06-10-2024 Bilirubin [Mass/Vol] 0.50 mg/dL 0.00-1.30 [facility] CBC W/Diff, Automatedon 05-20 Absolute Lymph 1.93 X10 3/uL Normal 0.83-4.[address] [facility] Comment on above: Performed By: #### L 501.2300, L100.0100, L501.9520, L500.4050 ####[facility] [address] [place], [address] Absolute Neut 6.0 X10 3/uL Normal 2.0-7.[address] [facility] Comment on above: Performed By: #### L 501.2300, L100.0100, L501.9520, L500.4050 ####[facility] [address] [place], [address] Basophils/100 WBC (Bld) 0.3 % Normal 0-1 [facility] Comment on above: Performed By: #### L 501.2300, L100.0100, L501.9520, L500.4050 ####[facility] [address] [place], [address] Eosinophils/100 WBC (Bld) 1.5 % Normal 0-[address] [facility] Comment on above: Performed By: #### L 501.2300, L100.0100, L501.9520, L500.4050 ####[facility] [address] [place], [address] Erythrocyte distribution width (RBC) [Ratio] 14.2 % Normal 11.6-14.[address] [facility] Comment on above: Performed By: #### L 501.2300, L100.0100, L501.9520, L500.4050 ####[facility] [address] [place], [address] Hematocrit (Bld) [Volume fraction] 29.6 % Low 37-[address] [facility] Comment on above: Performed By: #### L 501.2300, L100.0100, L501.9520, L500.4050 ####[facility] [address] [place], [address] Hemoglobin (Bld) [Mass/Vol] 9.3 g/dL Low 12.0-15.[address] [facility] Comment on above: Performed By: #### L 501.2300, L100.0100, L501.9520, L500.4050 ####[facility] [address] [place], [address] IG% 0.300 Normal 0.0-0.[address] [facility] Comment on above: Result Comment: IG% - Immature Granulocytes (promyelocytes, myelocytes andmetamyelocytes) > 1% indicates that a LEFT SHIFT is Present. Performed By: #### L 501.2300, L100.0100, L501.9520, L500.4050 ####[facility] [address] [place], [address] Lymphocytes/100 WBC (Bld) 21.6 % Normal 19-[address] [facility] Comment on above: Performed By: #### L 501.2300, L100.0100, L501.9520, L500.4050 ####[facility] [address] [place], [address] MCH (RBC) [Entitic mass] 30.8 pg Normal 27.0-32.[address] [facility] Comment on above: Performed By: #### L 501.2300, L100.0100, L501.9520, L500.4050 ####[facility] [address] [place], [address] MCHC (RBC) [Mass/Vol] 31.4 g/dL Low 32-36 [facility] Comment on above: Performed By: #### L 501.2300, L100.0100, L501.9520, L500.4050 ####[facility] [address] [place], [address] MCV (RBC) [Entitic vol] 98.0 fL Normal 81-99 [facility] Comment on above: Performed By: #### L 501.2300, L100.0100, L501.9520, L500.4050 ####[facility] [address] [place], [address] Monocytes/100 WBC (Bld) 9.4 % Normal 0-10 [facility] Comment on above: Performed By: #### L 501.2300, L100.0100, L501.9520, L500.4050 ####[facility] [address] [place], [address] Neutrophils/100 WBC (Bld) 66.9 % Normal 47-[address] [facility] Comment on above: Performed By: #### L 501.2300, L100.0100, L501.9520, L500.4050 ####[facility] [address] [place], [address] Nucleated RBC (Bld) [#/Vol] 0 10*3/uL Normal 0-[address] [facility] Comment on above: Performed By: #### L 501.2300, L100.0100, L501.9520, L500.4050 ####[facility] [address] [place], [address] Platelet mean volume (Bld) [Entitic vol] 10.0 fL Normal 6.2-12.[address] [facility] Comment on above: Performed By: #### L 501.2300, L100.0100, L501.9520, L500.4050 ####[facility] [address] [place], [address] Platelets (Bld) [#/Vol] 143 10*3/uL Low 150-[address] [facility] Comment on above: Performed By: #### L 501.2300, L100.0100, L501.9520, L500.4050 ####[facility] [address] [place], [address] RBC (Bld) [#/Vol] 3.02 10*6/uL Low 4.2-5.4 [facility] Comment on above: Performed By: #### L 501.2300, L100.0100, L501.9520, L500.4050 ####[facility] [address] [place], [address] RDW SD 50.7 fl High 35.1-43.[address] [facility] Comment on above: Performed By: #### L 501.2300, L100.0100, L501.9520, L500.4050 ####[facility] [address] [place], [address] WBC (Bld) [#/Vol] 8.9 10*3/uL Normal 4.4-11.0 [facility] Comment on above: Performed By: #### L 501.2300, L100.0100, L501.9520, L500.4050 ####[facility] [address] [place], [address] Carbon dioxide, total [Moles /volume] in Central venous bloodOrdered By: Mitchel Munoz on 06-10-2024 CO2 [Moles/Vol] 21.9 mmol/L 21.0-32.[address] [facility] Chloride assayOrdered By: Aries Munoz on 06-10-2024 Chloride [Moles/Vol] 109 mmol/L High 98-108 [facility] Comprehensive Metabolic Prof ilon 06-10-2024 Albumin [Mass/Vol] 3.8 g/dL Normal 3.4-4.8 [facility] Comment on above: Performed By: #### L 501.2300, L100.0100, L501.9520, L500.4050 ####[facility] [address] [place], [address] Albumin/Globulin [Mass ratio] 1.3 {ratio} Normal 0.9-2.[address] [facility] Comment on above: Performed By: #### L 501.2300, L100.0100, L501.9520, L500.4050 ####[facility] [address] [place], [address] ALK PHOS 95 U/L Normal 35-[address] [facility] Comment on above: Performed By: #### L 501.2300, L100.0100, L501.9520, L500.4050 ####[facility] [address] [place], [address] ALT [Catalytic activity/Vol] 16 U/L Normal <=[address] [facility] Comment on above: Performed By: #### L 501.2300, L100.0100, L501.9520, L500.4050 ####[facility] [address] [place], [address] AST [Catalytic activity/Vol] 22 U/L Normal <=[address] [facility] Comment on above: Performed By: #### L 501.2300, L100.0100, L501.9520, L500.4050 ####[facility] [address] [place], [address] Bilirubin [Mass/Vol] 0.50 mg/dL Normal 0.00-1.30 [facility] Comment on above: Performed By: #### L 501.2300, L100.0100, L501.9520, L500.4050 ####[facility] [address] [place], [address] BUN/CRE 24.6 RATIO High 10-[address] [facility] Comment on above: Performed By: #### L 501.2300, L100.0100, L501.9520, L500.4050 ####[facility] [address] [place], [address] Calcium [Mass/Vol] 9.3 mg/dL Normal 7.6-11.0 [facility] Comment on above: Performed By: #### L 501.2300, L100.0100, L501.9520, L500.4050 ####[facility] [address] [place], [address] Chloride [Moles/Vol] 109 mmol/L High 98-108 [facility] Comment on above: Performed By: #### L 501.2300, L100.0100, L501.9520, L500.4050 ####[facility] [address] [place], [address] CO2 [Moles/Vol] 21.9 mmol/L Normal 21.0-32.[address] [facility] Comment on above: Performed By: #### L 501.2300, L100.0100, L501.9520, L500.4050 ####[facility] [address] [place], [address] Creatinine [Mass/Vol] 1.22 mg/dL High 0.70-1.20 [facility] Comment on above: Performed By: #### L 501.2300, L100.0100, L501.9520, L500.4050 ####[facility] [address] [place], [address] ECRCL 38.43 ml/min Low 50-[address] [facility] Comment on above: Performed By: #### L 501.2300, L100.0100, L501.9520, L500.4050 ####[facility] [address] [place], [address] GAP 11 Normal 5-[address] [facility] Comment on above: Performed By: #### L 501.2300, L100.0100, L501.9520, L500.4050 ####[facility] [address] [place], [address] GFR/1.73 sq M.predicted among non-blacks MDRD (S/P/Bld) [Vol rate/Area] 47 mL/min/{1.73_m2} Low >60 [facility] Comment on above: Result Comment: mL/m in/1.73m2 CKD-EPI Creatinine Equation (2020) Performed By: #### L 501.2300, L100.0100, L501.9520, L500.4050 ####[facility] [address] [place], [address] Globulin (S) [Mass/Vol] 2.9 g/dL Normal 2.2-4.2 [facility] Comment on above: Performed By: #### L 501.2300, L100.0100, L501.9520, L500.4050 ####[facility] [address] [place], [address] Glucose [Mass/Vol] 168 mg/dL High 70-99 [facility] Comment on above: Performed By: #### L 501.2300, L100.0100, L501.9520, L500.4050 ####[facility] [address] [place], [address] Potassium [Moles/Vol] 4.9 mmol/L Normal 3.3-5.1 [facility] Comment on above: Performed By: #### L 501.2300, L100.0100, L501.9520, L500.4050 ####[facility] [address] [place], [address] Sodium [Moles/Vol] 141 mmol/L Normal 133-145 [facility] Comment on above: Performed By: #### L 501.2300, L100.0100, L501.9520, L500.4050 ####[facility] [address] [place], [address] T PROT 6.6 g/dL Normal 5.9-8.[address] [facility] Comment on above: Performed By: #### L 501.2300, L100.0100, L501.9520, L500.4050 ####[facility] [address] [place], [address] Urea nitrogen [Mass/Vol] 30 mg/dL High 4-[address] [facility] Comment on above: Performed By: #### L 501.2300, L100.0100, L501.9520, L500.4050 ####[facility] [address] [place], [address] Consultation - Orthopedicson 06-10-2024 Consultation - Orthopedics Normal [facility] Estimation of creatinine adis aranceOrdered By: Mitchel Munoz on 06-10-2024 Estimated Creatinine Clearance Calc 38.43 ml/min Low 50-[address] [facility] GFR/1.73 sq M.predicted eldon g non-blacks MDRD (S/P/Bld) [Vol rate/Area]Ordered By: Mitchel Munoz on 06-10-2024 Estimated GFR (MDRD) Non-Af Amer 47 Low >[address] [facility] Comment on above: mL/min/1.73m2 CKD-EP I Creatinine Equation (2020) Hemoglobin A1con 06-10-2024 HbA1c (Bld) [Mass fraction] 7.2 % High <=5.[address] [facility] Comment on above: Result Comment: Norm al < 5.7 % Prediabetic 5.7 - 6.4 % Diabetic >or= 6.5 % Please note range changes. Performed By: #### L 300.4310, L300.3900, L501.9985 ####[facility] [address] [place], [place], [id number] Hemoglobin A1c percentageOrd ered By: Edward English on 06-10-2024 HbA1c (Bld) [Mass fraction] 7.2 % High <5.[address] [facility] Comment on above: Normal < 5.7 % Predi abetic 5.7 - 6.4 % Diabetic >or= 6.5 % Please note range changes. International normalized rat io (INR) calculationOrdered By: Edward English on 06-10-2024 INR Coag (Bld) [Relative time] 1.1 {INR} [facility] Laboratory - Chemistry and C hemistry - challengeOrdered By: Mitchel Munoz on 06-10-2024 AST [Catalytic activity/Vol] 22 U/L <[address] [facility] No Panel InformationOrdered By: Mitchel Munoz on 06-10-2024 22 U/L <[address] [facility] Partial Thromboplast Timeon 06-10-2024 aPTT Coag (Bld) [Time] 26.2 s Normal 24.1-36.2 [facility] Comment on above: Performed By: #### L 300.4310, L300.3900, L501.9985 ####[facility] [address] [place], [place], [id number] Phosphoruson 06-10-2024 Phosphate [Mass/Vol] 3.5 mg/dL Normal 2.7-4.5 [facility] Comment on above: Performed By: #### L 501.2300, L100.0100, L501.9520, L500.4050 ####[facility] [address] [place], [address] Potassium (Unsp spec) [Mass/ Vol]Ordered By: Mitchel Munoz on 06-10-2024 Potassium [Moles/Vol] 4.9 mmol/L 3.3-5.1 [facility] Prothrombin Time w/INRon INR Coag (PPP) [Relative time] 1.1 {INR} Normal [facility] Comment on above: Performed By: #### L 300.4310, L300.3900, L501.9985 ####[facility] [address] [place], [address] PT Coag (PPP) [Time] 14.5 s Normal 11.7-14.9 [facility] Comment on above: Performed By: #### L 300.4310, L300.3900, L501.9985 ####[facility] [address] [place], [address] Prothrombin timeOrdered By: Edwadr English on 06-10-2024 PT Coag (PPP) [Time] 14.5 s 11.7-14.9 [facility] Serum creatinine measurement (mass/volume)Ordered By: Mitchel Munoz on 06-10-2024 Creatinine [Mass/Vol] 1.22 mg/dL High 0.70-1.20 [facility] Serum globulin measurementOr dered By: Mitchel Munoz on 06-10-2024 Globulin (S) [Mass/Vol] 2.9 g/dL 2.2-4.2 [facility] Serum glucose measurement (m ass/volume)Ordered By: Mitchel Munoz on 06-10-2024 Glucose [Mass/Vol] 168 mg/dL High 70-99 [facility] Serum or plasma alanine rahman otransferase (ALT) measurementOrdered By: Mitchel Munoz on 06-10-2024 ALT [Catalytic activity/Vol] 16 U/L <[address] [facility] Serum or plasma albumin swetha urement (mass/volume)Ordered By: Mitchel Munoz on 06-10-2024 Albumin [Mass/Vol] 3.8 g/dL 3.4-4.8 [facility] Serum or plasma albumin/glob ulin mass ratioOrdered By: Mitchel Munoz on 06-10-2024 Albumin/Globulin [Mass ratio] 1.3 {ratio} 0.9-2.[address] [facility] Serum or plasma alkaline becca sphatase measurementOrdered By: Mitchel Munoz on 06-10-2024 ALP [Catalytic activity/Vol] 95 U/L 35-[address] [facility] Serum or plasma calcium swetha urement (mass/volume)Ordered By: Mitchel Munoz on 06-10-2024 Calcium [Mass/Vol] 9.3 mg/dL 7.6-11.0 [facility] Serum or plasma urea nitroge n measurement (mass/volume)Ordered By: Mitchel Munoz on 06-10-2024 Urea nitrogen [Mass/Vol] 30 mg/dL High 4-[address] [facility] Sodium levelOrdered By: Jonathan Munoz on 06-10-2024 Sodium [Moles/Vol] 141 mmol/L 133-145 [facility] TSH DL <= 0.005 mIU/L QnOrde red By: Mitchel Munoz on 06-10-2024 Thyroid Stimulating Hormone (TSH) 2.210 uIU/mL 0.300-4.[address] [facility] TSH Qn 2.210 uIU/mL 0.300-4.[address] [facility] Thyroid Stim Hormone (TSH)on 06-10-2024 TSH 2.210 uIU/mL Normal 0.300-4.[address] [facility] Comment on above: Performed By: #### L 501.2300, L100.0100, L501.9520, L500.4050 ####[facility] [address] [place], [address] Total proteinOrdered By: Feliberto Munoz on 06-10-2024 Protein [Mass/Vol] 6.6 g/dL 5.9-8.4 [facility] Type AND Screenon 06-10-2024 Ab SCREEN GEL Negative Normal [facility] Comment on above: Order Comment: Comme nts: collected in the ERS Performed By: #### B TS ####[facility] [address] [place], [address] aPTT Coag (PPP) [Time]Ordere d By: Edward English on 06-10-2024 aPTT Coag (Bld) [Time] 26.2 s 24.1-36.2 [facility] 12 Lead EKGon 06-09-2024 12 Lead EKG Normal [facility] Basic Metabolic Profile (BMP )on 06-09-2024 BUN/CRE 26.4 RATIO High 10-[address] [facility] Comment on above: Performed By: #### L 300.3900, L500.2500, L100.0100 ####[facility] [address] [place], [address] Calcium [Mass/Vol] 9.5 mg/dL Normal 7.6-11.0 [facility] Comment on above: Performed By: #### L 300.3900, L500.2500, L100.0100 ####[facility] [address] [place], [address] Chloride [Moles/Vol] 108 mmol/L Normal 98-108 [facility] Comment on above: Performed By: #### L 300.3900, L500.2500, L100.0100 ####[facility] [address] [place], [address] CO2 [Moles/Vol] 21.6 mmol/L Normal 21.0-32.[address] [facility] Comment on above: Performed By: #### L 300.3900, L500.2500, L100.0100 ####[facility] [address] [place], [address] Creatinine [Mass/Vol] 1.37 mg/dL High 0.70-1.20 [facility] Comment on above: Performed By: #### L 300.3900, L500.2500, L100.0100 ####[facility] [address] [place], [address] ECRCL 37.99 ml/min Low 50-[address] [facility] Comment on above: Performed By: #### L 300.3900, L500.2500, L100.0100 ####[facility] [address] [place], [address] GAP 10 Normal 5-[address] [facility] Comment on above: Performed By: #### L 300.3900, L500.2500, L100.0100 ####[facility] [address] [place], [address] GFR/1.73 sq M.predicted among non-blacks MDRD (S/P/Bld) [Vol rate/Area] 41 mL/min/{1.73_m2} Low >60 [facility] Comment on above: Result Comment: mL/m in/1.73m2 CKD-EPI Creatinine Equation (2020) Performed By: #### L 300.3900, L500.2500, L100.0100 ####[facility] [address] [place], [address] Glucose [Mass/Vol] 259 mg/dL High 70-99 [facility] Comment on above: Performed By: #### L 300.3900, L500.2500, L100.0100 ####[facility] [address] [place], [address] Potassium [Moles/Vol] 5.1 mmol/L Normal 3.3-5.1 [facility] Comment on above: Performed By: #### L 300.3900, L500.2500, L100.0100 ####[facility] [address] [place], [address] Sodium [Moles/Vol] 140 mmol/L Normal 133-145 [facility] Comment on above: Performed By: #### L 300.3900, L500.2500, L100.0100 ####[facility] [address] [place], [address] Urea nitrogen [Mass/Vol] 36 mg/dL High 4-[address] [facility] Comment on above: Performed By: #### L 300.3900, L500.2500, L100.0100 ####[facility] [address] [place], [address] CBC W/Diff, Automatedon 05-20 Absolute Lymph 1.89 X10 3/uL Normal 0.83-4.[address] [facility] Comment on above: Performed By: #### L 300.3900, L500.2500, L100.0100 ####[facility] [address] [place], [address] Absolute Neut 8.6 X10 3/uL High 2.0-7.[address] [facility] Comment on above: Performed By: #### L 300.3900, L500.2500, L100.0100 ####[facility] [address] [place], [address] Basophils/100 WBC (Bld) 0.2 % Normal 0-1 [facility] Comment on above: Performed By: #### L 300.3900, L500.2500, L100.0100 ####[facility] [address] [place], [address] Eosinophils/100 WBC (Bld) 1.0 % Normal 0-[address] [facility] Comment on above: Performed By: #### L 300.3900, L500.2500, L100.0100 ####[facility] [address] [place], [address] Erythrocyte distribution width (RBC) [Ratio] 14.4 % Normal 11.6-14.[address] [facility] Comment on above: Performed By: #### L 300.3900, L500.2500, L100.0100 ####[facility] [address] [place], [address] Hematocrit (Bld) [Volume fraction] 30.9 % Low 37-[address] [facility] Comment on above: Performed By: #### L 300.3900, L500.2500, L100.0100 ####[facility] [address] [place], [address] Hemoglobin (Bld) [Mass/Vol] 9.9 g/dL Low 12.0-15.[address] [facility] Comment on above: Performed By: #### L 300.3900, L500.2500, L100.0100 ####[facility] [address] [place], [address] IG% 0.400 Normal 0.0-0.[address] [facility] Comment on above: Result Comment: IG% - Immature Granulocytes (promyelocytes, myelocytes andmetamyelocytes) > 1% indicates that a LEFT SHIFT is Present. Performed By: #### L 300.3900, L500.2500, L100.0100 ####[facility] [address] [place], [address] Lymphocytes/100 WBC (Bld) 16.4 % Low 19-[address] [facility] Comment on above: Performed By: #### L 300.3900, L500.2500, L100.0100 ####[facility] [address] [place], [address] MCH (RBC) [Entitic mass] 31.2 pg Normal 27.0-32.[address] [facility] Comment on above: Performed By: #### L 300.3900, L500.2500, L100.0100 ####[facility] [address] [place], [address] MCHC (RBC) [Mass/Vol] 32.0 g/dL Normal 32-36 [facility] Comment on above: Performed By: #### L 300.3900, L500.2500, L100.0100 ####[facility] [address] [place], [address] MCV (RBC) [Entitic vol] 97.5 fL Normal 81-99 [facility] Comment on above: Performed By: #### L 300.3900, L500.2500, L100.0100 ####[facility] [address] [place], [address] Monocytes/100 WBC (Bld) 7.0 % Normal 0-10 [facility] Comment on above: Performed By: #### L 300.3900, L500.2500, L100.0100 ####[facility] [address] [place], [address] Neutrophils/100 WBC (Bld) 75.0 % High 47-[address] [facility] Comment on above: Performed By: #### L 300.3900, L500.2500, L100.0100 ####[facility] [address] [place], [address] Nucleated RBC (Bld) [#/Vol] 0 10*3/uL Normal 0-[address] [facility] Comment on above: Performed By: #### L 300.3900, L500.2500, L100.0100 ####[facility] [address] [place], [address] Platelet mean volume (Bld) [Entitic vol] 10.1 fL Normal 6.2-12.[address] [facility] Comment on above: Performed By: #### L 300.3900, L500.2500, L100.0100 ####[facility] [address] [place], [address] Platelets (Bld) [#/Vol] 163 10*3/uL Normal 150-[address] [facility] Comment on above: Performed By: #### L 300.3900, L500.2500, L100.0100 ####[facility] [address] [place], [address] RBC (Bld) [#/Vol] 3.17 10*6/uL Low 4.2-5.4 [facility] Comment on above: Performed By: #### L 300.3900, L500.2500, L100.0100 ####[facility] [address] [place], [address] RDW SD 51.5 fl High 35.1-43.[address] [facility] Comment on above: Performed By: #### L 300.3900, L500.2500, L100.0100 ####[facility] [address] [place], [address] WBC (Bld) [#/Vol] 11.5 10*3/uL High 4.4-11.0 [facility] Comment on above: Performed By: #### L 300.3900, L500.2500, L100.0100 ####[facility] [address] [place], [address] Chest 1 Viewon 06-09-2024 Chest 1 View Normal [facility] Emergency Department Summary on 06-09-2024 Emergency Department Summary Normal [facility] Femur Min 2 Viewson 06-10-19 25 Femur Min 2 Views Normal [facility] H AND P Exam - Hospitaliston 06-09-2024 H&P Exam - Hospitalist Normal [facility] Knee 1 or 2 Viewson 06-10-19 25 Knee 1 or 2 Views Normal [facility] Magnesiumon 06-09-2024 Magnesium [Mass/Vol] 2.0 mg/dL Normal 1.5-2.2 [facility] Comment on above: Performed By: #### L 501.5200 ####[facility] [address] [place], [address] Magnesium (Unsp spec) [Mass/ Vol]Ordered By: Mitchel Munoz on 06-09-2024 Magnesium [Mass/Vol] 2.0 mg/dL 1.5-2.2 [facility] Magnesium measurement (mass/ volume)Ordered By: Mitchel Munoz on 06-09-2024 Magnesium (Unsp spec) [Mass/Vol] 2.0 mg/dL 1.5-2.[address] [facility] Pelvis 1 or 2 Viewson 2024 Pelvis 1 or 2 Views Normal [facility] Prothrombin Time w/INRon INR Coag (PPP) [Relative time] 1.3 {INR} Normal [facility] Comment on above: Performed By: #### L 300.3900, L500.2500, L100.0100 ####[facility] [address] [place], [address] PT Coag (PPP) [Time] 16.0 s High 11.7-14.9 [facility] Comment on above: Performed By: #### L 300.3900, L500.2500, L100.0100 ####[facility] [address] [place], [address] Absolute lymphocyte countOrd ered By: Quentin Kellogg on 06-08-2024 Lymphocytes Auto (Unsp spec) [#/Vol] 1.70 10*3/uL 0.83-4.[address] [facility] Absolute neutrophil countOrd ered By: Quentin Kellogg on 06-08-2024 Neutrophils (Bld) [#/Vol] 5.1 10*3/uL 2.0-7.[address] [facility] Anion gap in Serum or Plasma Ordered By: Quentin Kellogg on 06-08-2024 Anion gap [Moles/Vol] 10 mmol/L 5-15 [facility] Automated lymphocyte count a s percentage of total leukocytesOrdered By: Quentin Kellogg on 06-08-2024 Lymphocytes/100 WBC Auto (Unsp spec) 22.0 % -[address] [facility] BUN/creatinine ratioOrdered By: Quentin Kellogg on 06-08-2024 Urea nitrogen/Creatinine [Mass ratio] 22.1 mg/mg High 10-[address] [facility] Basophil percentageOrdered B y: Quentin Kellogg on 06-08-2024 Basophils/100 WBC (Bld) 0.1 % 0-1 [facility] Bilirubin, totalOrdered By: Quentin Kellogg on 06-08-2024 Bilirubin [Mass/Vol] 0.50 mg/dL 0.00-1.30 [facility] CBC W/Diff, Automatedon 05-20 Absolute Lymph 1.70 X10 3/uL Normal 0.83-4.[address] [facility] Comment on above: Performed By: #### L 501.9520, L100.0100, L506.1001, L500.4050 ####[facility] [address] [place], [address] Absolute Neut 5.1 X10 3/uL Normal 2.0-7.[address] [facility] Comment on above: Performed By: #### L 501.9520, L100.0100, L506.1001, L500.4050 ####[facility] [address] [place], [address] Basophils/100 WBC (Bld) 0.1 % Normal 0-1 [facility] Comment on above: Performed By: #### L 501.9520, L100.0100, L506.1001, L500.4050 ####[facility] [address] [place], [address] Eosinophils/100 WBC (Bld) 3.2 % Normal 0-[address] [facility] Comment on above: Performed By: #### L 501.9520, L100.0100, L506.1001, L500.4050 ####[facility] [address] [place], [address] Erythrocyte distribution width (RBC) [Ratio] 14.3 % Normal 11.6-14.[address] [facility] Comment on above: Performed By: #### L 501.9520, L100.0100, L506.1001, L500.4050 ####[facility] [address] [place], [address] Hematocrit (Bld) [Volume fraction] 33.9 % Low 37-[address] [facility] Comment on above: Performed By: #### L 501.9520, L100.0100, L506.1001, L500.4050 ####[facility] [address] [place], [address] Hemoglobin (Bld) [Mass/Vol] 10.7 g/dL Low 12.0-15.[address] [facility] Comment on above: Performed By: #### L 501.9520, L100.0100, L506.1001, L500.4050 ####[facility] [address] [place], [address] IG% 0.400 Normal 0.0-0.[address] [facility] Comment on above: Result Comment: IG% - Immature Granulocytes (promyelocytes, myelocytes andmetamyelocytes) > 1% indicates that a LEFT SHIFT is Present. Performed By: #### L 501.9520, L100.0100, L506.1001, L500.4050 ####[facility] [address] [place], [address] Lymphocytes/100 WBC (Bld) 22.0 % Normal 19-[address] [facility] Comment on above: Performed By: #### L 501.9520, L100.0100, L506.1001, L500.4050 ####[facility] [address] [place], [address] MCH (RBC) [Entitic mass] 31.5 pg Normal 27.0-32.[address] [facility] Comment on above: Performed By: #### L 501.9520, L100.0100, L506.1001, L500.4050 ####[facility] [address] [place], [address] MCHC (RBC) [Mass/Vol] 31.6 g/dL Low 32-36 [facility] Comment on above: Performed By: #### L 501.9520, L100.0100, L506.1001, L500.4050 ####[facility] [address] [place], [address] MCV (RBC) [Entitic vol] 99.7 fL High 81-99 [facility] Comment on above: Performed By: #### L 501.9520, L100.0100, L506.1001, L500.4050 ####[facility] [address] [place], [address] Monocytes/100 WBC (Bld) 9.0 % Normal 0-10 [facility] Comment on above: Performed By: #### L 501.9520, L100.0100, L506.1001, L500.4050 ####[facility] [address] [place], [address] Neutrophils/100 WBC (Bld) 65.3 % Normal 47-[address] [facility] Comment on above: Performed By: #### L 501.9520, L100.0100, L506.1001, L500.4050 ####[facility] [address] [place], [address] Nucleated RBC (Bld) [#/Vol] 0 10*3/uL Normal 0-[address] [facility] Comment on above: Performed By: #### L 501.9520, L100.0100, L506.1001, L500.4050 ####[facility] [address] [place], [address] Platelet mean volume (Bld) [Entitic vol] 9.9 fL Normal 6.2-12.[address] [facility] Comment on above: Performed By: #### L 501.9520, L100.0100, L506.1001, L500.4050 ####[facility] [address] [place], [address] Platelets (Bld) [#/Vol] 160 10*3/uL Normal 150-[address] [facility] Comment on above: Performed By: #### L 501.9520, L100.0100, L506.1001, L500.4050 ####[facility] [address] [place], [address] RBC (Bld) [#/Vol] 3.40 10*6/uL Low 4.2-5.4 [facility] Comment on above: Performed By: #### L 501.9520, L100.0100, L506.1001, L500.4050 ####[facility] [address] [place], [address] RDW SD 52.1 fl High 35.1-43.[address] [facility] Comment on above: Performed By: #### L 501.9520, L100.0100, L506.1001, L500.4050 ####[facility] [address] [place], [address] WBC (Bld) [#/Vol] 7.7 10*3/uL Normal 4.4-11.0 [facility] Comment on above: Performed By: #### L 501.9520, L100.0100, L506.1001, L500.4050 ####[facility] [address] [place], [address] Carbon dioxide, total [Moles /volume] in Central venous bloodOrdered By: Quentin Kellogg on 06-08-2024 CO2 [Moles/Vol] 20.9 mmol/L Low 21.0-32.[address] [facility] Chloride assayOrdered By: Santi Kellogg on 06-08-2024 Chloride [Moles/Vol] 109 mmol/L High 98-108 [facility] Comprehensive Metabolic Prof ilon 06-08-2024 Albumin [Mass/Vol] 4.1 g/dL Normal 3.4-4.8 [facility] Comment on above: Performed By: #### L 501.9520, L100.0100, L506.1001, L500.4050 ####[facility] [address] [place], [address] Albumin/Globulin [Mass ratio] 1.3 {ratio} Normal 0.9-2.[address] [facility] Comment on above: Performed By: #### L 501.9520, L100.0100, L506.1001, L500.4050 ####[facility] [address] [place], [address] ALK PHOS 105 U/L High 35-[address] [facility] Comment on above: Performed By: #### L 501.9520, L100.0100, L506.1001, L500.4050 ####[facility] [address] [place], [address] ALT [Catalytic activity/Vol] 19 U/L Normal <=[address] [facility] Comment on above: Performed By: #### L 501.9520, L100.0100, L506.1001, L500.4050 ####[facility] [address] [place], [address] AST [Catalytic activity/Vol] 23 U/L Normal <=[address] [facility] Comment on above: Performed By: #### L 501.9520, L100.0100, L506.1001, L500.4050 ####[facility] [address] [place], [address] Bilirubin [Mass/Vol] 0.50 mg/dL Normal 0.00-1.30 [facility] Comment on above: Performed By: #### L 501.9520, L100.0100, L506.1001, L500.4050 ####[facility] [address] [place], [address] BUN/CRE 22.1 RATIO High 10-[address] [facility] Comment on above: Performed By: #### L 501.9520, L100.0100, L506.1001, L500.4050 ####[facility] [address] [place], [address] Calcium [Mass/Vol] 9.7 mg/dL Normal 7.6-11.0 [facility] Comment on above: Performed By: #### L 501.9520, L100.0100, L506.1001, L500.4050 ####[facility] [address] [place], [address] Chloride [Moles/Vol] 109 mmol/L High 98-108 [facility] Comment on above: Performed By: #### L 501.9520, L100.0100, L506.1001, L500.4050 ####[facility] [address] [place], [address] CO2 [Moles/Vol] 20.9 mmol/L Low 21.0-32.[address] [facility] Comment on above: Performed By: #### L 501.9520, L100.0100, L506.1001, L500.4050 ####[facility] [address] [place], [address] Creatinine [Mass/Vol] 1.51 mg/dL High 0.70-1.20 [facility] Comment on above: Performed By: #### L 501.9520, L100.0100, L506.1001, L500.4050 ####[facility] [address] [place], [address] GAP 10 Normal 5-[address] [facility] Comment on above: Performed By: #### L 501.9520, L100.0100, L506.1001, L500.4050 ####[facility] [address] [place], [address] GFR/1.73 sq M.predicted among non-blacks MDRD (S/P/Bld) [Vol rate/Area] 36 mL/min/{1.73_m2} Low >60 [facility] Comment on above: Result Comment: mL/m in/1.73m2 CKD-EPI Creatinine Equation (2020) Performed By: #### L 501.9520, L100.0100, L506.1001, L500.4050 ####[facility] [address] [place], [address] Globulin (S) [Mass/Vol] 3.1 g/dL Normal 2.2-4.2 [facility] Comment on above: Performed By: #### L 501.9520, L100.0100, L506.1001, L500.4050 ####[facility] [address] [place], [address] Glucose [Mass/Vol] 143 mg/dL High 70-99 [facility] Comment on above: Performed By: #### L 501.9520, L100.0100, L506.1001, L500.4050 ####[facility] [address] [place], [address] Potassium [Moles/Vol] 5.4 mmol/L High 3.3-5.1 [facility] Comment on above: Result Comment: Hemo lysis present, Results??could be affected.?? Performed By: #### L 501.9520, L100.0100, L506.1001, L500.4050 ####[facility] [address] [place], [address] Sodium [Moles/Vol] 140 mmol/L Normal 133-145 [facility] Comment on above: Performed By: #### L 501.9520, L100.0100, L506.1001, L500.4050 ####[facility] [address] [place], [address] T PROT 7.2 g/dL Normal 5.9-8.[address] [facility] Comment on above: Performed By: #### L 501.9520, L100.0100, L506.1001, L500.4050 ####[facility] [address] [place], [address] Urea nitrogen [Mass/Vol] 33 mg/dL High 4-[address] [facility] Comment on above: Performed By: #### L 501.9520, L100.0100, L506.1001, L500.4050 ####[facility] [address] [place], [address] Eosinophil percentageOrdered By: Quentin Kellogg on 06-08-2024 Eosinophils/100 WBC (Bld) 3.2 % 0-[address] [facility] Erythrocyte distribution wid th (RBC) [Ratio]Ordered By: Quentin Kellogg on 06-08-2024 Erythrocyte distribution width (RBC) [Entitic vol] 52.1 fL High 35.1-43.9 [facility] Erythrocyte distribution wid th ratioOrdered By: Quentin Kellogg on 06-08-2024 Erythrocyte distribution width (RBC) [Ratio] 14.3 % 11.6-14.[address] [facility] Erythrocyte distribution wid th standard deviationOrdered By: Quentin Kellogg on 06-08-2024 Erythrocyte distribution width (RBC) [Ratio] 52.1 fl High 35.1-43.[address] [facility] GFR/1.73 sq M.predicted eldon g non-blacks MDRD (S/P/Bld) [Vol rate/Area]Ordered By: Quentin Kellogg on 06-08-2024 Estimated GFR (MDRD) Non-Af Amer 36 Low >[address] [facility] Comment on above: mL/min/1.73m2 CKD-EP I Creatinine Equation (2020) Glomerular filtration rate ( GFR) estimation/1.73 sq m using serum, plasma, or whole bOrdered By: Quentin Kellogg on 06-08-2024 GFR/1.73 sq M.predicted among non-blacks MDRD (S/P/Bld) [Vol rate/Area] 36 mL/min/{1.73_m2} Low >60 [facility] Comment on above: mL/min/1.73m2 CKD-EP I Creatinine Equation (2020) Hematocrit Auto (Bld) [Volum e fraction]Ordered By: Quentin Kellogg on 06-08-2024 Hematocrit (Bld) [Volume fraction] 33.9 % Low 37-[address] [facility] Hemoglobin measurementOrdere d By: Quentin Kellogg on 06-08-2024 Hemoglobin (Bld) [Mass/Vol] 10.7 g/dL Low 12.0-15.[address] [facility] Immature granulocytes/100 WB C Auto (Bld)Ordered By: Quentin Kellogg on 06-08-2024 Immature granulocytes/100 WBC (Bld) 0.400 % 0.0-0.[address] [facility] Comment on above: IG% - Immature Granu locytes (promyelocytes, myelocytes and metamyelocytes) > 1% indicates that a LEFT SHIFT is Present. Influenza virus A and B and SARS-CoV-2 (COVID-19) and Respiratory syncytial virus RNAOrdered By: Quentin Kellogg on 06-08-2024 SARS-CoV-2 (COVID-19) RNA ISIS+probe Ql (Unsp spec) [facility] Laboratory - Chemistry and C hemistry - challengeOrdered By: Quentin Kellogg on 06-08-2024 AST [Catalytic activity/Vol] 23 U/L <[address] [facility] Lymphocytes Auto (Unsp spec) [#/Vol]Ordered By: Quentin Kellogg on 06-08-2024 Lymphocytes (Bld) [#/Vol] 1.70 10*3/uL 0.83-4.[address] [facility] Lymphocytes/100 WBC Auto (Un sp spec)Ordered By: Quentin Kellogg on 06-08-2024 Lymphocytes/100 WBC (Bld) 22.0 % 19-[address] [facility] M100.678on 06-08-2024 M100.678 Pending SARS-CoV-2 (COVID 19) Negative INFLUENZA A Negative INFLUENZA B Negative RSV PCR Negative Normal [facility] Comment on above: Performed By: #### M 100.678 ####[facility] [address] [place], [address] MCV (mean corpuscular volume ) determinationOrdered By: Quentin Kellogg on 06-08-2024 MCV (RBC) [Entitic vol] 99.7 fL High 81-99 [facility] Mean corpuscular hemoglobin (MCH) determinationOrdered By: Quentin Kellogg on 06-08-2024 MCH (RBC) [Entitic mass] 31.5 pg 27.0-32.[address] [facility] Mean corpuscular hemoglobin concentration (MCHC) determinationOrdered By: Quentin Kellogg on 06-08-2024 MCHC (RBC) [Mass/Vol] 31.6 g/dL Low 32-36 [facility] Mean platelet volume determi nationOrdered By: Quentin Kellogg on 06-08-2024 Platelet mean volume (Bld) [Entitic vol] 9.9 fL 6.2-12.[address] [facility] Monocyte percentageOrdered B y: Quentin Kellogg on 06-08-2024 Monocytes/100 WBC (Bld) 9.0 % 0-10 [facility] Neutrophil percentageOrdered By: Quentin Valdez on 06-08-2024 Neutrophils/100 WBC (Bld) 65.3 % 47-[address] [facility] No Panel InformationOrdered By: Quentin Kellogg on 06-08-2024 23 U/L <[address] [facility] Nucleated red blood cell per centageOrdered By: Quentin Kellogg on 06-08-2024 Nucleated RBC/100 WBC (Bld) [Ratio] 0 % 0-[address] [facility] Platelet countOrdered By: Santi Kellogg on 06-08-2024 Platelets (Bld) [#/Vol] 160 10*3/uL 150-[address] [facility] Potassium (Unsp spec) [Mass/ Vol]Ordered By: Quentin Kellogg on 06-08-2024 Potassium [Moles/Vol] 5.4 mmol/L High 3.3-5.1 [facility] Comment on above: Hemolysis present, R esults could be affected. Potassium measurement (mass/ volume)Ordered By: Quentin Kellogg on 06-08-2024 Potassium (Unsp spec) [Mass/Vol] 5.4 mmol/L High 3.3-5.[address] [facility] Comment on above: Hemolysis present, R esults could be affected. RBC Auto (Bld) [#/Vol]Ordere d By: Quentin Kellogg on 06-08-2024 RBC (Bld) [#/Vol] 3.40 10*6/uL Low 4.2-5.4 [facility] Serum creatinine measurement (mass/volume)Ordered By: Quentin Kellogg on 06-08-2024 Creatinine [Mass/Vol] 1.51 mg/dL High 0.70-1.20 [facility] Serum globulin measurementOr dered By: Quentin Kellogg on 06-08-2024 Globulin (S) [Mass/Vol] 3.1 g/dL 2.2-4.2 [facility] Serum glucose measurement (m ass/volume)Ordered By: Quentin Kellogg on 06-08-2024 Glucose [Mass/Vol] 143 mg/dL High 70-99 [facility] Serum or plasma alanine rahman otransferase (ALT) measurementOrdered By: Quentin Kellogg 06-08-2024 ALT [Catalytic activity/Vol] 19 U/L <[address] [facility] Serum or plasma albumin swetha urement (mass/volume)Ordered By: Quentin Kellogg 06-08-2024 Albumin [Mass/Vol] 4.1 g/dL 3.4-4.8 [facility] Serum or plasma albumin/glob ulin mass ratioOrdered By: Quentin Kellogg 06-08-2024 Albumin/Globulin [Mass ratio] 1.3 {ratio} 0.9-2.[address] [facility] Serum or plasma alkaline becca sphatase measurementOrdered By: Quentin Kellogg 06-08-2024 ALP [Catalytic activity/Vol] 105 U/L High 35-[address] [facility] Serum or plasma calcium swetha urement (mass/volume)Ordered By: Quentin Kellogg 06-08-2024 Calcium [Mass/Vol] 9.7 mg/dL 7.6-11.0 [facility] Serum or plasma urea nitroge n measurement (mass/volume)Ordered By: Quentin Kellogg 06-08-2024 Urea nitrogen [Mass/Vol] 33 mg/dL High 4-[address] [facility] Sodium levelOrdered By: Quentin Kellogg 06-08-2024 Sodium [Moles/Vol] 140 mmol/L 133-145 [facility] TSH DL <= 0.005 mIU/L QnOrde red By: Quentin Kellogg on 06-08-2024 Thyroid Stimulating Hormone (TSH) 1.930 uIU/mL 0.300-4.[address] [facility] TSH Qn 1.930 uIU/mL 0.300-4.[address] [facility] Thyroid Stim Hormone (TSH)on 06-08-2024 TSH 1.930 uIU/mL Normal 0.300-4.[address] [facility] Comment on above: Performed By: #### L 501.9520, L100.0100, L506.1001, L500.4050 ####[facility] [address] [place], [place], [id number] Total proteinOrdered By: Quentin Kellogg on 06-08-2024 Protein [Mass/Vol] 7.2 g/dL 5.9-8.4 [facility] Vitamin D, 25-hydroxyOrdered By: Quentin Kellogg on 06-08-2024 Vitamin D 25-Hydroxy 33.6 ng/mL 30-100 [facility] Comment on above: Vitamin D StatusDefi ciency: <20 ng/mL (50nmol/L)Insufficiency: 20-30 ng/mL (50-75 nmol/L)Sufficiency: 30-100 ng/mL (75-250 nmol/L)Toxicity: >100 ng/mL (>250 nmol/L) Vitamin D,25 Hydroxyon 06-08 Vitamin D 25-OH 33.6 ng/mL Normal 30-[address] [facility] Comment on above: Result Comment: Dorothea min D StatusDeficiency: <20 ng/mL (50nmol/L)Insufficiency: 20-30 ng/mL (50-75 nmol/L)Sufficiency: 30-100 ng/mL (75-250 nmol/L)Toxicity: >100 ng/mL (>250 nmol/L) Performed By: #### L 501.9520, L100.0100, L506.1001, L500.4050 ####[facility] [address] 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 Bryant is a 73 year old who presents for an annual gynecologic exam without complaints. Postmenopausal: hysterectomy HRT use: No. Age at Menarche: 12-13 Still get period: No LMP: n/a Menses: no menses, hysterectomy Menstrual flow: N/A Bleeding amount bothersome: N/A Bleeding between periods: N/A Period symptoms: N/A Sexually active: No Contraception: Other hysterectomy Contraception frequency: Always HPV vaccine: No Last pap smear: 11/28/2004, normal History of abnormal pap: No Colposcopy: No. Leep: No. Cone biopsy: No. Bothersome pelvic pain: No Last mammogram: 2023 normal History of abnormal mammogram: Yes OB History Gravida3 Para3 Term0 Preterm0 AB0 Living3 SAB0 IAB0 Ectopic0 Multiple0 Live Births0 Comment: 2 vaginal deliveries 1 section FAMILY HISTORY Problem Relation Age of Onset Blood Disease Mother blood clot, coumadin Hypertension Mother Coronary Artery Disease Mother 84 Cancer Father poss bladder Prostate Cancer Father Breast Cancer Sister 64 None Sister None Sister Diabetes Paternal Grandmother Colon Cancer Paternal Grandmother Stroke Paternal Grandfather Diabetes Paternal Grandfather Cancer Maternal Grandfather LEUKEMIA Cancer Maternal Uncle Psychiatry Sister anxiety SOCIAL HISTORY Social History Tobacco Use Smoking status: Former Current packs/day: 0.00 Types: Cigarettes Quit date: 02/18/1969 Years since quittin.3 Smokeless tobacco: Never Tobacco comments: Pt smoked 1-2 cigarettes daily x 1-2 years. Vaping Use Vaping status: Never Used Substance Use Topics Alcohol use: No Drug use: No REVIEW OF SYSTEMS Abdomen: No abdominal pain, nausea, vomiting, diarrhea, or constipation. No bloating, early satiety, indigestion, or increased flatulence. Bladder: sees Breast: No breast lumps, nipple d/c, overlying skin changes, redness or skin retraction Allergies and current medication updated:Yes SENSITIVE EXAM: The sensitive examination was discussed with the Patient or Patient's Authorized Ceramic Coater. As applicable, any other physician, advance practice provider, medical student, or other health professional student that will be observing or involved in the sensitive examination for educational or training purposes was discussed with the Patient or Authorized Ceramic Coater. The Patient or Authorized Ceramic Coater has agreed to proceed with the sensitive examination. (Sensitive examination includes inspection and/or palpation of the breasts, pelvis, prostate and anorectal regions). EXAM: BP 110/72 Wt 169 lb 6.4 oz (76.8kg) GENERAL: pleasant, female in no apparent distress BREAST: soft, non-tender, symmetric, no dominant mass, normal nipple-areolar complex, no lymphadenopathy, and no nipple discharge CHEST: Normal inspiratory effort ABDOMEN: soft, non-tender, and no masses PELVIC: external genitalia normal, no vulvar lesions, no cervical lesions, normal appearing perineal body and perianal region; atrophic vagina BIMANUAL: uterus normal size, shape and consistency, no adnexal masses, and non-tender RECTOVAGINAL: deferred. NEURO: alert and oriented x3,exam grossly non-focal EXTREMITIES: normal ASSESSMENT/PLAN: 1) Health maintenance: Pap/HPV screening no longer needed Mammogram up to date Nutrition, exercise and routine health maintenance exams reviewed. Colon cancer screening: messaged about colonoscopy 2) Follow up one year or sooner as needed 3) Atrophic vaginitis - declines treatment MD Ti Lehman Karmon, MD 06/04/2024 12:07 PM Signed COLONOSCOPY BOWEL PREPARATION INSTRUCTIONS GOLYTELY/NULYTELY/T RILYTE/COLYTE Your doctor has scheduled you for a colonoscopy. To have a successful colonoscopy, you must have a clean colon, that is empty. A clean colon allows your doctor to see the entire colon AND diagnose issues like polyps or cancer. For doctors, a clean colon is like driving on a kvng day; a dirty colon like driving in a storm. It is very important that you follow these instructions exactly, or your colonoscopy might not be as effective, could be canceled, and you may need to do the bowel prep and the colonoscopy again. TRANSPORTATION REQUIREMENTS You are receiving IV sedation. For your safety, a responsible adult escort must accompany you to and from your procedure: Your adult escort MUST be present with you at check-in for your colonoscopy. Your adult escort MUST remain in the endoscopy area until you are di (more content not included)... [facility] (OBGYWM) ---- ANNETTE MARCOS ([id number]) 1950 F Date Time Provider Department 06/04/24 ARGELIA THOMSON During your visit today, we recorded the following information about you: Cira Shaver RN 06/04/2024 4:07 PM Signed Argelia Thomson MD Giauque, Trisha, RN Patient needs to see for an appointment to get colonoscopy scheduled. Thanks! Cira Pagan RN 06/04/2024 4:07 PM Signed Please contact patient to schedule appt with Dr. Escobar. YONIS Ryan Kaitlyn 06/06/2024 10:16 AM Signed Called patient and unable to leave a Rosalia Serrano 06/09/2024 10:36 AM Signed Spoke to patient son Hugo he stated that she does not do that she does the cologuard Allergies As of Date: 06/04/2024 Noted Allergy Reaction CHLORHEXIDINE 05/21/2013 9 - [...] eyes become red and headache Date Reviewed: 06/04/2024 Reviewed by: Argelia Thomson MD - Fully Assessed Reason for Visit: Appointment [[id number]] Prescriptions as of 06/09/2024 - ascorbic acid (VITAMIN C ORAL) Take by mouth. - lisinopril 2.5 mg tablet - rivaroxaban [...] area three times daily as needed. - fluticasone-salmete rol (ADVAIR DISKUS) 100-50 mcg/dose inhaler Inhale 1 Puff as instructed twice daily. Finishing her supply. - atorvastatin (LIPITOR) 40 mg tablet Take 1 tablet by mouth daily at bedtime. For cholesterol. - fluticasone (FLONASE) 50 mcg/actuation nasal spray Use 2 Sprays in each nostril once daily. Rinse mouth after use. - omeprazole (PRILOSEC) 20 mg capsule TAKE ONE CAPSULE BY MOUTH DAILY 1/2 HOUR BEFORE BREAKFAST - Nebulizer Accessories misc Use with nebulizer [...] - Blood-Glucose Meter (TRUE METRIX GLUCOSE METER) [facility] Use daily as directed. Dx: E11.8 Insulin: No - gabapentin (NEURONTIN) 800 mg tablet Take 1 tablet by mouth three times daily. - Lancets lancets Test blood sugar(s) 2 times daily. Dx: Type 2 DM - Uncontrolled E11.9 Insulin: No - oxybutynin XL (DITROPAN XL) 10 mg 24 hr tablet Take 1 tablet by mouth once daily. Meds Comments as of 01/12/2013: Problem List As Of Date 06/04/2024 Noted Resolved Unspecified tinnitus [H93.19] 03/11/2012 Allergic rhinitis [J30.9] GENERAL OSTEOARTHROSIS [M15.9] Carpal tunnel syndrome [G56.00] 03/11/2012 Dizziness and giddiness [R42] 03/11/2012 Contusion of unspecified part of trunk [S20.20X* 03/11/2012 Acute, but ill-defined, cerebrovascular disease* 03/11/2012 Other specified disorder of bladder [596.8] 02/01/2005 03/11/2012 Urge incontinence [N39.41] 02/01/2005 10/28/2014 Dermatophytosis of nail [B35.1] 06/07/2005 03/11/2012 Moderate persistent asthma with acute exacerbat* BONE AND CARTILAGE DIS NOS [M89.9, M94.9] 01/02/2006 Other pulmonary embolism and infarction [I26.99] 03/11/2012 Knee joint replacement by other means [Z96.659] 09/02/2006 12/18/2017 Chronic deep vein thrombosis (DVT) of proximal *10/30/2006 Symptomatic menopausal or female climacteric st*09/01/2007 03/11/2012 Anxiety state, unspecified [F41.1] 12/02/2007 03/11/2012 Urgency of urination [R39.15] 02/05/2008 03/11/2012 Microscopic trae (more content not included)... Normal [facility] Cardiology Visit Reporton Cardiology Visit Report Normal [facility] Influenza virus A and B and SARS-CoV-2 (COVID-19) and Respiratory syncytial virus RNAOrdered By: Quentin Kellogg on 05-25-2024 SARS-CoV-2 (COVID-19) RNA ISIS+probe Ql (Unsp spec) [facility] M100.678on 05-25-2024 M100.678 Pending SARS-CoV-2 (COVID 19) Negative INFLUENZA A Negative INFLUENZA B Negative RSV PCR Negative Normal [facility] Comment on above: Performed By: #### M 100.678 ####[facility] [address] [place], [place], [id number] Absolute lymphocyte countOrd ered By: New Villafuerte on 04-17-2024 Lymphocytes Auto (Unsp spec) [#/Vol] 1.50 10*3/uL 0.83-4.[address] [facility] Absolute neutrophil countOrd ered By: New Villafuerte on 04-17-2024 Neutrophils (Bld) [#/Vol] 3.1 10*3/uL 2.0-7.[address] [facility] Automated lymphocyte count a s percentage of total leukocytesOrdered By: New Villafuerte on 04-17-2024 Lymphocytes/100 WBC Auto (Unsp spec) 27.5 % 19-[address] [facility] Basophil percentageOrdered B y: New Villafuerte on 04-17-2024 Basophils/100 WBC (Bld) 0.4 % 0-1 [facility] CBC W/Diff, Automatedon 03-22 Absolute Lymph 1.50 X10 3/uL Normal 0.83-4.[address] [facility] Comment on above: Performed By: #### L 100.0100 ####[facility] [address] [place], [address] Absolute Neut 3.1 X10 3/uL Normal 2.0-7.[address] [facility] Comment on above: Performed By: #### L 100.0100 ####[facility] [address] [place], [address] Basophils/100 WBC (Bld) 0.4 % Normal 0-1 [facility] Comment on above: Performed By: #### L 100.0100 ####[facility] [address] [place], [address] Eosinophils/100 WBC (Bld) 5.0 % Normal 0-[address] [facility] Comment on above: Performed By: #### L 100.0100 ####[facility] [address] [place], [address] Erythrocyte distribution width (RBC) [Ratio] 14.9 % High 11.6-14.[address] [facility] Comment on above: Performed By: #### L 100.0100 ####[facility] [address] [place], [address] Hematocrit (Bld) [Volume fraction] 30.7 % Low 37-[address] [facility] Comment on above: Performed By: #### L 100.0100 ####[facility] [address] [place], [address] Hemoglobin (Bld) [Mass/Vol] 9.4 g/dL Low 12.0-15.[address] [facility] Comment on above: Performed By: #### L 100.0100 ####[facility] [address] [place], [address] IG% 0.400 Normal 0.0-0.[address] [facility] Comment on above: Result Comment: IG% - Immature Granulocytes (promyelocytes, myelocytes andmetamyelocytes) > 1% indicates that a LEFT SHIFT is Present. Performed By: #### L 100.0100 ####[facility] [address] [place], [address] Lymphocytes/100 WBC (Bld) 27.5 % Normal 19-[address] [facility] Comment on above: Performed By: #### L 100.0100 ####[facility] [address] [place], [address] MCH (RBC) [Entitic mass] 30.7 pg Normal 27.0-32.[address] [facility] Comment on above: Performed By: #### L 100.0100 ####[facility] [address] [place], [address] MCHC (RBC) [Mass/Vol] 30.6 g/dL Low 32-36 [facility] Comment on above: Performed By: #### L 100.0100 ####[facility] [address] [place], [address] MCV (RBC) [Entitic vol] 100.3 fL High 81-99 [facility] Comment on above: Performed By: #### L 100.0100 ####[facility] [address] [place], [address] Monocytes/100 WBC (Bld) 10.3 % High 0-10 [facility] Comment on above: Performed By: #### L 100.0100 ####[facility] [address] [place], [address] Neutrophils/100 WBC (Bld) 56.4 % Normal 47-[address] [facility] Comment on above: Performed By: #### L 100.0100 ####[facility] [address] [place], [address] Nucleated RBC (Bld) [#/Vol] 0 10*3/uL Normal 0-[address] [facility] Comment on above: Performed By: #### L 100.0100 ####[facility] [address] [place], [address] Platelet mean volume (Bld) [Entitic vol] 10.0 fL Normal 6.2-12.[address] [facility] Comment on above: Performed By: #### L 100.0100 ####[facility] [address] [place], [address] Platelets (Bld) [#/Vol] 128 10*3/uL Low 150-[address] [facility] Comment on above: Performed By: #### L 100.0100 ####[facility] [address] [place], [address] RBC (Bld) [#/Vol] 3.06 10*6/uL Low 4.2-5.4 [facility] Comment on above: Performed By: #### L 100.0100 ####[facility] [address] [place], [address] RDW SD 55.1 fl High 35.1-43.[address] [facility] Comment on above: Performed By: #### L 100.0100 ####[facility] [address] [place], [address] WBC (Bld) [#/Vol] 5.5 10*3/uL Normal 4.4-11.0 [facility] Comment on above: Performed By: #### L 100.0100 ####[facility] [address] [place], [address] Emergency Department Summary on 04-17-2024 Emergency Department Summary Normal [facility] Eosinophil percentageOrdered By: New Villafuerte on 04-17-2024 Eosinophils/100 WBC (Bld) 5.0 % 0-[address] [facility] Erythrocyte distribution wid th (RBC) [Ratio]Ordered By: New Villafuerte on 04-17-2024 Erythrocyte distribution width (RBC) [Entitic vol] 55.1 fL High 35.1-43.9 [facility] Erythrocyte distribution wid th ratioOrdered By: New Villafuerte on 04-17-2024 Erythrocyte distribution width (RBC) [Ratio] 14.9 % High 11.6-14.[address] [facility] Erythrocyte distribution wid th standard deviationOrdered By: New Villafuerte on 04-17-2024 Erythrocyte distribution width (RBC) [Ratio] 55.1 fl High 35.1-43.[address] [facility] Hematocrit Auto (Bld) [Volum e fraction]Ordered By: New Villafuerte on 04-17-2024 Hematocrit (Bld) [Volume fraction] 30.7 % Low 37-[address] [facility] Hemoglobin measurementOrdere d By: New Villafuerte on 04-17-2024 Hemoglobin (Bld) [Mass/Vol] 9.4 g/dL Low 12.0-15.[address] [facility] Immature granulocytes/100 WB C Auto (Bld)Ordered By: New Villafuerte on 04-17-2024 Immature granulocytes/100 WBC (Bld) 0.400 % 0.0-0.[address] [facility] Comment on above: IG% - Immature Granu locytes (promyelocytes, myelocytes and metamyelocytes) > 1% indicates that a LEFT SHIFT is Present. Lymphocytes Auto (Unsp spec) [#/Vol]Ordered By: New Villafuerte on 04-17-2024 Lymphocytes (Bld) [#/Vol] 1.50 10*3/uL 0.83-4.[address] [facility] Lymphocytes/100 WBC Auto (Un sp spec)Ordered By: New Villafuerte on 04-17-2024 Lymphocytes/100 WBC (Bld) 27.5 % 19-[address] [facility] MCV (mean corpuscular volume ) determinationOrdered By: New Villafuerte on 04-17-2024 MCV (RBC) [Entitic vol] 100.3 fL High 81-99 [facility] Mean corpuscular hemoglobin (MCH) determinationOrdered By: New Villafuerte on 04-17-2024 MCH (RBC) [Entitic mass] 30.7 pg 27.0-32.[address] [facility] Mean corpuscular hemoglobin concentration (MCHC) determinationOrdered By: New Villafuerte on 04-17-2024 MCHC (RBC) [Mass/Vol] 30.6 g/dL Low 32-36 [facility] Mean platelet volume determi nationOrdered By: New Villafuerte on 04-17-2024 Platelet mean volume (Bld) [Entitic vol] 10.0 fL 6.2-12.[address] [facility] Monocyte percentageOrdered B y: New Villafuerte on 04-17-2024 Monocytes/100 WBC (Bld) 10.3 % High 0-10 [facility] Neutrophil percentageOrdered By: New Villafuerte on 04-17-2024 Neutrophils/100 WBC (Bld) 56.4 % 47-[address] [facility] Nucleated red blood cell per centageOrdered By: New Villafuerte on 04-17-2024 Nucleated RBC/100 WBC (Bld) [Ratio] 0 % 0-[address] [facility] Platelet countOrdered By: Aries Villafuerte on 04-17-2024 Platelets (Bld) [#/Vol] 128 10*3/uL Low 150-[address] [facility] RBC Auto (Bld) [#/Vol]Ordere d By: New Villafuerte on 04-17-2024 RBC (Bld) [#/Vol] 3.06 10*6/uL Low 4.2-5.4 [facility] White blood cell (WBC) count Ordered By: New Villafuerte on 04-17-2024 WBC (Bld) [#/Vol] 5.5 10*3/uL 4.4-11.0 [facility] Blood urea nitrogen (BUN)/cr eatinine ratioOrdered By: Alma Olmos on 03-27-2024 Urea nitrogen/Creatinine [Mass ratio] 22.5 mg/mg High 10-[address] [facility] CBC-Complete Blood Cnt No Di ffon 03-27-2024 Erythrocyte distribution width (RBC) [Ratio] 13.2 % Normal 11.6-14.[address] [facility] Comment on above: Performed By: #### L 500.3600, L502.0250, L100.0500 ####[facility] [address] [place], [address] Hematocrit (Bld) [Volume fraction] 34.7 % Low 37-[address] [facility] Comment on above: Performed By: #### L 500.3600, L502.0250, L100.0500 ####[facility] [address] [place], [address] Hemoglobin (Bld) [Mass/Vol] 10.8 g/dL Low 12.0-15.[address] [facility] Comment on above: Performed By: #### L 500.3600, L502.0250, L100.0500 ####[facility] [address] [place], [address] MCH (RBC) [Entitic mass] 30.3 pg Normal 27.0-32.[address] [facility] Comment on above: Performed By: #### L 500.3600, L502.0250, L100.0500 ####[facility] [address] [place], [address] MCHC (RBC) [Mass/Vol] 31.1 g/dL Low 32-36 [facility] Comment on above: Performed By: #### L 500.3600, L502.0250, L100.0500 ####[facility] [address] [place], [address] MCV (RBC) [Entitic vol] 97.5 fL Normal 81-99 [facility] Comment on above: Performed By: #### L 500.3600, L502.0250, L100.0500 ####[facility] [address] [place], [address] Platelet mean volume (Bld) [Entitic vol] 10.1 fL Normal 6.2-12.[address] [facility] Comment on above: Performed By: #### L 500.3600, L502.0250, L100.0500 ####[facility] [address] [place], [address] Platelets (Bld) [#/Vol] 214 10*3/uL Normal 150-[address] [facility] Comment on above: Performed By: #### L 500.3600, L502.0250, L100.0500 ####[facility] [address] [place], [address] RBC (Bld) [#/Vol] 3.56 10*6/uL Low 4.2-5.4 [facility] Comment on above: Performed By: #### L 500.3600, L502.0250, L100.0500 ####[facility] [address] [place], [address] RDW SD 47.8 fl High 35.1-43.[address] [facility] Comment on above: Performed By: #### L 500.3600, L502.0250, L100.0500 ####[facility] [address] [place], [address] WBC (Bld) [#/Vol] 6.0 10*3/uL Normal 4.4-11.0 [facility] Comment on above: Performed By: #### L 500.3600, L502.0250, L100.0500 ####[facility] [address] [place], [address] Carbon dioxide measurementOr dered By: Alma Olmos on 03-27-2024 CO2 [Moles/Vol] 24.0 mmol/L 21.0-32.[address] [facility] Chloride measurementOrdered By: Alma Olmos on 03-27-2024 Chloride [Moles/Vol] 112 mmol/L High 98-107 [facility] Erythrocyte distribution wid th (RBC) [Ratio]Ordered By: Alma Olmos on 03-27-2024 Erythrocyte distribution width (RBC) [Entitic vol] 47.8 fL High 35.1-43.9 [facility] Erythrocyte distribution wid th ratioOrdered By: Alma Olmos on 03-27-2024 Erythrocyte distribution width (RBC) [Ratio] 13.2 % 11.6-14.[address] [facility] Erythrocyte distribution wid th standard deviationOrdered By: Alma Olmos on 03-27-2024 Erythrocyte distribution width (RBC) [Ratio] 47.8 fl High 35.1-43.[address] [facility] Estimated glomerular filtrat ion rate (GFR) AmericanOrdered By: Alma Olmos on 03-27-2024 Estimated GFR (MDRD) Amer 43 mL/min Low >[address] [facility] Comment on above: GFR Calc Glomerular filtration rate ( GFR) estimationOrdered By: Alma Olmos on 03-27-2024 Estimated GFR (MDRD) Non-Af Amer 36 mL/min Low >[address] [facility] Comment on above: Non- GFR Calc GFR/1.73 sq M.predicted among non-blacks MDRD (S/P/Bld) [Vol rate/Area] 36 mL/min/{1.73_m2} Low >60 [facility] Glucose measurementOrdered B y: Alma Olmos on 03-27-2024 Glucose [Mass/Vol] 203 mg/dL High 74-106 [facility] Comment on above: Glucose result great er than or equal to 200 mg/dLsuggests DIABETES MELLITUS per A.D.A. criteria. Hematocrit Auto (Bld) [Volum e fraction]Ordered By: Alma Olmos on 03-27-2024 Hematocrit (Bld) [Volume fraction] 34.7 % Low 37-[address] [facility] Hemoglobin measurementOrdere d By: Alma Olmos on 03-27-2024 Hemoglobin (Bld) [Mass/Vol] 10.8 g/dL Low 12.0-15.[address] [facility] Influenza virus A and B and SARS-CoV-2 (COVID-19) and Respiratory syncytial virus RNAOrdered By: Quentin Kellogg on 03-27-2024 SARS-CoV-2 (COVID-19) RNA ISIS+probe Ql (Unsp spec) [facility] M100.678on 03-27-2024 M100.678 SARS-CoV-2 (COVID 19) Negative INFLUENZA A Negative INFLUENZA B Negative RSV PCR Negative Normal [facility] Comment on above: Performed By: #### M 100.678 ####[facility] [address] [place], [address] MCV (mean corpuscular volume ) determinationOrdered By: Alma Olmos on 03-27-2024 MCV (RBC) [Entitic vol] 97.5 fL 81-99 [facility] Mean corpuscular hemoglobin (MCH) determinationOrdered By: Alma Olmos on 03-27-2024 MCH (RBC) [Entitic mass] 30.3 pg 27.0-32.[address] [facility] Mean corpuscular hemoglobin concentration (MCHC) determinationOrdered By: Alma Olmos on 03-27-2024 MCHC (RBC) [Mass/Vol] 31.1 g/dL Low 32-36 [facility] Mean platelet volume determi nationOrdered By: Alma Olmos on 03-27-2024 Platelet mean volume (Bld) [Entitic vol] 10.1 fL 6.2-12.[address] [facility] Microalb:Creat Ratio,Random URon 03-27-2024 Creatinine [Mass/Vol] 80.70 mg/dL Normal NO RANGE EST. [facility] Comment on above: Performed By: #### L 500.3600, L502.0250, L100.0500 ####[facility] [address] [place], [address] MALB:CRE 70.0 mg/g CRE High <30 mg/g CRE [facility] Comment on above: Performed By: #### L 500.3600, L502.0250, L100.0500 ####[facility] [address] [place], [address] MICROALBUMIN,UR 56.5 mg/L Normal NO RANGE EST. [facility] Comment on above: Performed By: #### L 500.3600, L502.0250, L100.0500 ####[facility] [address] [place], [address] Phosphorus measurementOrdere d By: Alma Olmos on 03-27-2024 Phosphorus Level 3.9 mg/dL 2.5-4.[address] [facility] Platelet countOrdered By: Osito Olmos on 03-27-2024 Platelets (Bld) [#/Vol] 214 10*3/uL 150-[address] [facility] Potassium measurementOrdered By: Alma Olmos on 03-27-2024 Potassium [Moles/Vol] 5.3 mmol/L High 3.5-5.1 [facility] RBC Auto (Bld) [#/Vol]Ordere d By: Alma Olmos on 03-27-2024 RBC (Bld) [#/Vol] 3.56 10*6/uL Low 4.2-5.4 [facility] Random urine microalbumin me asurementOrdered By: Alma Olmos on 03-27-2024 Urine Random Microalbumin 56.5 mg/L NO RANGE E [facility] Renal Profileon 03-27-2024 Albumin [Mass/Vol] 3.6 g/dL Normal 3.2-5.0 [facility] Comment on above: Performed By: #### L 500.3600, L502.0250, L100.0500 ####[facility] [address] [place], [address] BUN/CRE 22.5 RATIO High 10-[address] [facility] Comment on above: Performed By: #### L 500.3600, L502.0250, L100.0500 ####[facility] [address] [place], [address] CA,Total 9.6 mg/dL Normal 8.5-10.[address] [facility] Comment on above: Performed By: #### L 500.3600, L502.0250, L100.0500 ####[facility] [address] [place], [address] Chloride [Moles/Vol] 112 mmol/L High 98-107 [facility] Comment on above: Performed By: #### L 500.3600, L502.0250, L100.0500 ####[facility] [address] [place], [address] CO2 [Moles/Vol] 24.0 mmol/L Normal 21.0-32.[address] [facility] Comment on above: Performed By: #### L 500.3600, L502.0250, L100.0500 ####[facility] [address] [place], [address] Creatinine [Mass/Vol] 1.51 mg/dL High 0.55-1.02 [facility] Comment on above: Result Comment: The validity of the calculated GFR GFRAA in patients over70 years has not been determined. Clinical correlation isessential. Performed By: #### L 500.3600, L502.0250, L100.0500 ####[facility] [address] [place], [address] EST GFR - AA 43 mL/min Low >[address] [facility] Comment on above: Result Comment: Afri can Guinean GFR Calc Performed By: #### L 500.3600, L502.0250, L100.0500 ####[facility] [address] [place], [address] GFR/1.73 sq M.predicted among non-blacks MDRD (S/P/Bld) [Vol rate/Area] 36 mL/min/{1.73_m2} Low >60 [facility] Comment on above: Result Comment: Non- GFR Calc Performed By: #### L 500.3600, L502.0250, L100.0500 ####[facility] [address] [place], [address] Glucose [Mass/Vol] 203 mg/dL High 74-106 [facility] Comment on above: Result Comment: Gluc ose result greater than or equal to 200 mg/dLsuggests DIABETES MELLITUS per A.D.A. criteria. Performed By: #### L 500.3600, L502.0250, L100.0500 ####[facility] [address] [place], [address] Phosphate [Mass/Vol] 3.9 mg/dL Normal 2.5-4.9 [facility] Comment on above: Performed By: #### L 500.3600, L502.0250, L100.0500 ####[facility] [address] [place], [address] Potassium [Moles/Vol] 5.3 mmol/L High 3.5-5.1 [facility] Comment on above: Performed By: #### L 500.3600, L502.0250, L100.0500 ####[facility] [address] [place], [address] Sodium [Moles/Vol] 140 mmol/L Normal 136-145 [facility] Comment on above: Performed By: #### L 500.3600, L502.0250, L100.0500 ####[facility] [address] [place], [address] Urea nitrogen [Mass/Vol] 34 mg/dL High 7-[address] [facility] Comment on above: Performed By: #### L 500.3600, L502.0250, L100.0500 ####[facility] [address] [place], [address] Serum or plasma albumin swetha urement (mass/volume)Ordered By: Alma Olmos on 03-27-2024 Albumin [Mass/Vol] 3.6 g/dL 3.2-5.0 [facility] Serum or plasma calcium swetha urement (mass/volume)Ordered By: Alma Olmos on 03-27-2024 Calcium [Mass/Vol] 9.6 mg/dL 8.5-10.1 [facility] Serum or plasma creatinine m easurement (mass/volume)Ordered By: Alma Olmos on 03-27-2024 Creatinine [Mass/Vol] 1.51 mg/dL High 0.55-1.02 [facility] Comment on above: The validity of the calculated GFR & GFRAA in patients over 70 years has not been determined. Clinical correlation is essential. Serum or plasma urea nitroge n measurement (mass/volume)Ordered By: Alma Olmos on 03-27-2024 Urea nitrogen [Mass/Vol] 34 mg/dL High 7-[address] [facility] Sodium levelOrdered By: Rosemarie Olmos on 03-27-2024 Sodium [Moles/Vol] 140 mmol/L 136-145 [facility] Urine albumin/creatinine rat io for detection of microalbuminuriaOrdered By: Alma Olmos on 03-27-2024 Urine Microalbumin/Creatinine Ratio 70.0 mg/g CRE High <[address] [facility] Urine creatinine measurement (mass/volume)Ordered By: Alma Olmos on 03-27-2024 Creatinine (U) [Mass/Vol] 80.70 mg/dL NO RANGE EST. [facility] White blood cell (WBC) count Ordered By: Alma Olmos on 03-27-2024 WBC (Bld) [#/Vol] 6.0 10*3/uL 4.4-11.0 [facility] Blood urea nitrogen (BUN)/cr eatinine ratioOrdered By: Alma Olmos on 03-19-2024 Urea nitrogen/Creatinine [Mass ratio] 23.8 mg/mg High 10-[address] [facility] Carbon dioxide measurementOr dered By: Alma Olmos on 03-19-2024 CO2 [Moles/Vol] 25.0 mmol/L 21.0-32.[address] [facility] Chloride measurementOrdered By: Alma Olmos on 03-19-2024 Chloride [Moles/Vol] 110 mmol/L High 98-107 [facility] Estimated glomerular filtrat ion rate (GFR) AmericanOrdered By: Alma Olmos on 03-19-2024 Estimated GFR (MDRD) Amer 37 mL/min Low >[address] [facility] Comment on above: GFR Calc Glomerular filtration rate ( GFR) estimationOrdered By: Alma Olmos on 03-19-2024 Estimated GFR (MDRD) Non-Af Amer 31 mL/min Low >[address] [facility] Comment on above: Non- GFR Calc GFR/1.73 sq M.predicted among non-blacks MDRD (S/P/Bld) [Vol rate/Area] 31 mL/min/{1.73_m2} Low >60 [facility] Glucose measurementOrdered B y: Alma Olmos on 03-19-2024 Glucose [Mass/Vol] 175 mg/dL High 74-106 [facility] Comment on above: Fasting Glucose resu lt greater than or equal to 126 mg/dL suggests DIABETES MELLITUS per A.D.A. criteria. Phosphorus measurementOrdere d By: Alma Olmos on 03-19-2024 Phosphorus Level 4.0 mg/dL 2.5-4.[address] [facility] Potassium measurementOrdered By: Alma Olmos on 03-19-2024 Potassium [Moles/Vol] 4.6 mmol/L 3.5-5.1 [facility] Renal Profileon 03-19-2024 Albumin [Mass/Vol] 3.7 g/dL Normal 3.2-5.0 [facility] Comment on above: Performed By: #### L 500.3600 ####[facility] [address] [place], [address] BUN/CRE 23.8 RATIO High 10-[address] [facility] Comment on above: Performed By: #### L 500.3600 ####[facility] [address] [place], [address] CA,Total 9.3 mg/dL Normal 8.5-10.[address] [facility] Comment on above: Performed By: #### L 500.3600 ####[facility] [address] [place], [address] Chloride [Moles/Vol] 110 mmol/L High 98-107 [facility] Comment on above: Performed By: #### L 500.3600 ####[facility] [address] [place], [address] CO2 [Moles/Vol] 25.0 mmol/L Normal 21.0-32.[address] [facility] Comment on above: Performed By: #### L 500.3600 ####[facility] [address] [place], [address] Creatinine [Mass/Vol] 1.72 mg/dL High 0.55-1.02 [facility] Comment on above: Result Comment: The validity of the calculated GFR GFRAA in patients over70 years has not been determined. Clinical correlation isessential. Performed By: #### L 500.3600 ####[facility] [address] [place], [address] EST GFR - AA 37 mL/min Low >[address] [facility] Comment on above: Result Comment: Afri can Guine[place] GFR Calc Performed By: #### L 500.3600 ####[facility] [address] [place], [address] GFR/1.73 sq M.predicted among non-blacks MDRD (S/P/Bld) [Vol rate/Area] 31 mL/min/{1.73_m2} Low >60 [facility] Comment on above: Result Comment: Non- GFR Calc Performed By: #### L 500.3600 ####[facility] [address] [place], [address] Glucose [Mass/Vol] 175 mg/dL High 74-106 [facility] Comment on above: Result Comment: Fast ing Glucose result greater than or equal to 126 mg/dLsuggests DIABETES MELLITUS per A.D.A. criteria. Performed By: #### L 500.3600 ####[facility] [address] [place], [address] Phosphate [Mass/Vol] 4.0 mg/dL Normal 2.5-4.9 [facility] Comment on above: Performed By: #### L 500.3600 ####[facility] [address] [place], [address] Potassium [Moles/Vol] 4.6 mmol/L Normal 3.5-5.1 [facility] Comment on above: Performed By: #### L 500.3600 ####[facility] [id number] [place], [place], [id number] Sodium [Moles/Vol] 141 mmol/L Normal 136-145 [facility] Comment on above: Performed By: #### L 500.3600 ####[facility] [address] [place], [address] Urea nitrogen [Mass/Vol] 41 mg/dL High 7-[address] [facility] Comment on above: Performed By: #### L 500.3600 ####[facility] [address] [place], [place], [id number] Serum or plasma albumin swetha urement (mass/volume)Ordered By: Alma Olmos on 03-19-2024 Albumin [Mass/Vol] 3.7 g/dL 3.2-5.0 [facility] Serum or plasma calcium swetha urement (mass/volume)Ordered By: Alma Olmos on 03-19-2024 Calcium [Mass/Vol] 9.3 mg/dL 8.5-10.1 [facility] Serum or plasma creatinine m easurement (mass/volume)Ordered By: Alma Olmos on 03-19-2024 Creatinine [Mass/Vol] 1.72 mg/dL High 0.55-1.02 [facility] Comment on above: The validity of the calculated GFR & GFRAA in patients over 70 years has not been determined. Clinical correlation is essential. Serum or plasma urea nitroge n measurement (mass/volume)Ordered By: Alma Olmos on 03-19-2024 Urea nitrogen [Mass/Vol] 41 mg/dL High [address] [facility] Sodium levelOrdered By: Rosemarie Olmos on 03-19-2024 Sodium [Moles/Vol] 141 mmol/L 136-145 [facility] Nick 12-20-2023 MARISOL Telephone (OBGYWM) ---- LAURYNANNETTE BURGESS ([id number]) 1950 F Date Time Provider Department 12/20/23 ETHEL ANDUJAR During your visit today, we recorded the following information about you: Ethel Andujar APRN.CNP 12/20/2023 3:26 PM Signed Please notify patient: + UTI Rx for Amoxicillin sent Push water RUBIO Ramirez Jennifer, RN 12/20/2023 4:16 PM Signed Patient notified. States they no longer use [facility]. Updated pharmacy preference to [facility]. Please cancel and resend. Thank you. YONIS Hussein Emily, APRN.CNP 12/20/2023 4:20 PM Signed Rx sent. Ethel Andujar APRN.CNP Allergies As of Date: 12/20/2023 Noted Allergy Reaction CHLORHEXIDINE 05/21/2013 9 - [...] eyes become red and headache Date Reviewed: 12/19/2023 Reviewed by: Ethel Andujar APRN.CNP - Fully Assessed Reason for Visit: Results [95] Primary Visit Diagnosis:Urinary tract infection without hematuria, site unspecified [N39.0] Order(s):amoxicilli n (AMOXIL) 500 mg capsuleTake 1 capsule by mouth two times a day for 7 days.Disp: 14 capsuleRfl: 0 Prescriptions as of 12/20/2023 - amoxicillin (AMOXIL) 500 mg capsule Take 1 capsule by mouth two times a day for 7 days. - ascorbic acid (VITAMIN C ORAL) Take by mouth. - lisinopril 2.5 mg tablet - rivaroxaban [...] area three times daily as needed. - fluticasone-salmete rol (ADVAIR DISKUS) 100-50 mcg/dose inhaler Inhale 1 Puff as instructed twice daily. Finishing her supply. - atorvastatin (LIPITOR) 40 mg tablet Take 1 tablet by mouth daily at bedtime. For cholesterol. - fluticasone (FLONASE) 50 mcg/actuation nasal spray Use 2 Sprays in each nostril once daily. Rinse mouth after use. - omeprazole (PRILOSEC) 20 mg capsule TAKE ONE CAPSULE BY MOUTH DAILY 1/2 HOUR BEFORE BREAKFAST - Nebulizer Accessories misc Use with nebulizer [...] daily as needed for Pain. Per Dr. G. Jessie, pain management. - Blood-Glucose Meter (TRUE METRIX GLUCOSE METER) misc Use daily as directed. Dx: E11.8 Insulin: No - gabapentin (NEURONTIN) 800 mg tablet Take 1 tablet by mouth three times daily. - Lancets lancets Test blood sugar(s) 2 times daily. Dx: Type 2 DM - Uncontrolled E11.9 Insulin: No - oxybutynin XL (DITROPAN XL) 10 mg 24 hr tablet Take 1 tablet by mouth once daily. Meds Comments as of 01/12/2013: Problem List As Of Date 12/20/2023 Noted Resolved Unspecified tinnitus [H93.19] 03/11/2012 Allergic rhinitis [J30.9] GENERAL OSTEOARTHROSIS [M15.9] Carpal tunnel syndrome [G56.00] 03/11/2012 Dizziness and giddiness [R42] 03/11/2012 Contusion of unspecified part of trunk [S20.20X* 03/11/2012 Acute, but ill-defined, cerebrovascular disease* 03/11/2012 Other specified disorder of bladder [596.8] 02/01/2005 03/11/2012 Urge incontinence [N39.41] 02/01/2005 10/28/2014 Dermatophytosis of nail [B35.1] 06/07/2005 03/11/2012 Moderate persistent asthma with acute exacerbat* BONE AND CARTILAGE DIS NOS [M89.9, M94.9] 01/02/2006 Other pulmonary embolism and infarction [I26.99] 03/11/2012 Knee joint replacement by other means [Z96.659] 09/02/2006 12/18/2017 Chronic deep vein thrombosis (DVT) of p (more content not included)... Normal [facility] BACTERIAL VAGINOSIS NAATon 1 Lactobacillus crispatus+gasseri+jenseni i + Gardnerella vaginalis + Atopobium vaginae rRNA ISIS+probe Ql (Vag fld) Negative Normal Negative for bacterial vaginosis [facility] Comment on above: Order Comment: Speci men Type: SWAB Ordering Facility: [facility] Address: [address] [place] [address] Performed By: #### C VTV, BVAMP #### [facility] CLIA [id number] [address] [place] [address] [place] Bacteria Ur Culton Bacteria identified Cx Nom (U) ORGANISM ID: 1 >=100,000 CFU/ml Streptococcus agalactiae (group b streptococcus) Susceptibility testing not performed on beta hemolytic streptococci due to predictable susceptibility to penicillin and other beta lactams. For testing, call Microbiology within 72 hours. Normal [facility] Comment on above: Performed By: #### 6 30-4 #### [facility] CLIA [id number] [address] [place] [address] [place] ROZINA/TRICHOMONAS NAATon 1 C. glabrata RNA ISIS+probe Ql (Vag fld) Negative Normal Negative for Rozina glabrata [facility] Comment on above: Order Comment: Speci men Type: SWAB Ordering Facility: [facility] Address: [address] [place] [address] Performed By: #### C VTV, BVAMP #### [facility] CLIA [id number] [address] [place] [address] [place] Rozina sp DNA ISIS+probe Ql (Vag fld) Negative Normal Negative for Rozina species [facility] Comment on above: Order Comment: Speci men Type: SWAB Ordering Facility: [facility] Address: [address] [place] [address] Performed By: #### C VTV, BVAMP #### [facility] CLIA [id number] [address] [place] [address] [place] T. vaginalis DNA ISIS+probe Ql (Unsp spec) Negative Normal Negative for Trichomonas vaginalis by amplification [facility] Comment on above: Order Comment: Speci men Type: SWAB Ordering Facility: [facility] Address: [address] [place] [address] Performed By: #### C VTV, BVAMP #### [facility] CLIA [id number] [address] [place] [address] [place] CNOVon 10-31-2024 CNOV Office Visit (OBGYWM) ---- ANNETTE MARCOS ([id number]) 1950 F Date Time Provider Department 12/19/23 10:00 AM ETHEL ANDUJAR OBGYWM During your visit today, we recorded the following information about you: Blood pressure Weight 124/70 73 kg Ethel Andujar, CHACE.BUTADIENE CONVERTOR OPERATOR 12/19/2023 10:21 AM Signed Annette Marcos is a 73 year old female who presents for problem visit burning while urinating for 2 week(s). HPI: Annette presents for a problem visit for burning while urinating for 2 weeks now. No abnormal vaginal discharge. No vaginal itching or burning. UA shows trace amount of blood and large amount of leukocytes. She does have T2DM with chronic kidney disease. 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 LMP: Hysterectomy Age at Menarche: Age at First : Age at Menopause: International Trade Analyst History Comments: Sexual Activity: Not Currently; Male; tubal ligation prior to hysterectomy Contraception: Surgical PAST MEDICAL HISTORY Diagnosis Date Acute, but ill-defined, cerebrovascular disease 1989 Allergic rhinitis, cause unspecified Allergic rhinitis Anal and rectal polyp FIBROPLASTIC Anemia, unspecified Atrial flutter, paroxysmal ([facility]) 03/14/2018 CKD (chronic kidney disease) stage 3, GFR 30-59 ml/min ([facility]) 07/12/2017 Cognitive impairment 04/10/2017 Colitis, collagenous 09/03/2011 [...] Postmenopausal atrophic vaginitis 06/27/2016 Scoliosis Xray from [facility] 08/03/11 showed; also has narrowing L3-L4 and [...] W/COLLJ SPEC WHEN PFRMD 08/05/2018 Colonoscopy [facility] (Notes Tab) COLONOSCOPY W/BIOPSY SINGLE/MULTIPLE 05/17/11 repeat [...] RETRIEV INTRAVASC FOREGN BODY 01/30/13 filter removal SALPINGO-OOPHORECTO MY COMPL/PRTL UNI/BI SPX 1999 Salpingo-oophorecto my bilateral TOTAL ABDOMINAL HYSTERECT W/WO RMVL TUBE [...] Social History Tobacco Use Smoking status: Former Current packs/day: 0.00 Types: Cigarettes Quit date: 02/18/1969 Years since quittin.8 Smokeless tobacco: Never Tobacco comments: Pt smoked 1-2 cigarettes daily x 1-2 years. Vaping Use Vaping status: Never Used Substance Use Topics Alcohol use: No Drug use: No Current Outpatient Medicatio (more content not included)... Normal [facility] UA DIP, URINE (POC)on 2023 BILIRUBIN UA (POCT) Negative Negative [facility] CLARITY UA (POCT) Clear [facility] COLOR UA (POCT) Yellow [facility] GLUCOSE UA (POCT) Negative Negative mg/dL [facility] Hemoglobin Ql (U) Trace-intact Abnormal Negative [facility] Interpretation and review of laboratory results Abnormal [facility] KETONE UA (POCT) Negative Negative mg/dL [facility] LEUKOCYTES UA (POCT) Large Abnormal Negative [facility] NITRITE UA (POCT) Negative Negative [facility] PH UA (POCT) 6.0 4.5 - 8.0 [facility] Protein Ql (U) Negative Negative mg/dL [facility] SPECIFIC GRAVITY UA (POCT) 1.020 1.005 - 1.030 [facility] UROBILINOGEN UA (POCT) 0.2 Normal E.U./d L [facility] Location:[facility], [address], [place], [address] [facility] POINT OF CARE [facility] MG Breast Screeningon 2023 IMPRESSION: There is no mammographic evidence of malignancy in either breast. Routine follow-up mammogram in 1 year is recommended. BI-RADS Category 1: Negative RISK: Based on the Tyrer-Cuzick (TC) risk assessment model, this patient has a 4.4% lifetime risk of developing breast cancer, meaning they are at average risk for developing breast cancer. However, this is only an estimate based on available history provided on the patient's questionnaire. We encourage all patients talk with their providers about these results, further recommendations for managing breast health, and appropriate supplemental screening options if the patient has dense breast tissue. Interpreting Radiologist: Miah Olvera M.D. Electronically signed on: 12/01/2023 Drying Machine Operator Package Yarns: [email or web address] Transcrineal Date/Time: Nov 29 2023 8:51A Dictated by: MIAH OLVERA MD This examination was interpreted and the report reviewed and electronically signed by: MIAH OLVERA MD on Dec 01 2023 2:37AM [facility] DIVISION OF RADIOLOGY * * *Final Report* * * DATE OF EXAM: Nov 29 2023 9:14AM [facility] [address] [facility] SCREENING / PROCEDURE REASON: Encounter for screening mammogram for breast cancer * * * * Physician Interpretation * * * * RESULT: [place] [address] HISTORY: Patient is 73 years old and is seen for screening. No current complaints. The patient has no personal history of cancer. COMPARISON STUDIES: The present examination has been compared to prior imaging studies dated 04/09/2019 (mammogram), 04/11/2020 (mammogram) and 10/26/2022 (mammogram). MAMMOGRAM TECHNIQUE: The study was acquired using full field digital technology and interpreted from soft copy. Digital Breast Tomosynthesis (DBT) images were obtained and used to assist in the interpretation of this examination. Computer-aided detection was utilized by the radiologist in the interpretation of this examination. MAMMOGRAM FINDINGS: The breasts are heterogeneously dense, which may obscure small masses. No suspicious masses, calcifications or other abnormalities are seen in either breast. There are no significant changes from the prior study. DIVISION OF RADIOLOGY Provider, [facility]endor - 12/01/2023 * * *Final Report* * * DATE OF EXAM: Nov 29 2023 9:14AM [facility] [address] [facility] SCREENING / PROCEDURE REASON: Encounter for screening mammogram for breast cancer * * * * Physician Interpretation * * * * RESULT: [facility] [address] [place] [address] HISTORY: Patient is 73 years old and is seen for screening. No current complaints. The patient has no personal history of cancer. COMPARISON STUDIES: The present examination has been compared to prior imaging studies dated 04/09/2019 (mammogram), 04/11/2020 (mammogram) and 10/26/2022 (mammogram). MAMMOGRAM TECHNIQUE: The study was acquired using full field digital technology and interpreted from soft copy. Digital Breast Tomosynthesis (DBT) images were obtained and used to assist in the interpretation of this examination. Computer-aided detection was utilized by the radiologist in the interpretation of this examination. MAMMOGRAM FINDINGS: The breasts are heterogeneously dense, which may obscure small masses. No suspicious masses, calcifications or other abnormalities are seen in either breast. There are no significant changes from the prior study. IMPRESSION IMPRESSION: There is no mammographic evidence of malignancy in either breast. Routine follow-up mammogram in 1 year is recommended. BI-RADS Category 1: Negative RISK: Based on the Tyrer-Cuzick (TC) risk assessment model, this patient has a 4.4% lifetime risk of developing breast cancer, meaning they are at average risk for developing breast cancer. However, this is only an estimate based on available history provided on the patient's questionnaire. We encourage all patients talk with their providers about these results, further recommendations for managing breast health, and appropriate supplemental screening options if the patient has dense breast tissue. Interpreting Radiologist: Miah Olvera M.D. Electronically signed on: 12/01/2023 Drying Machine Operator Package Yarns: [email or web address] Transcribe Date/Time: Nov 29 2023 8:51A Dictated by: MIAH OLVERA MD This examination was interpreted and the report reviewed and electronically signed by: MIAH OLVERA MD on Dec 01 2023 2:37AM EST [facility] MG Breast ScreeningOrdered B y: [facility] Provider on 12-01-2023 [facility] DANAY SCREENINGon 11-29-2023 DANAY SCREENING * * *Final Report* * * DATE OF EXAM: Nov 29 2023 9:14AM [facility] [address] [facility] SCREENING / PROCEDURE REASON: Encounter for screening mammogram for breast cancer * * * * Physician Interpretation * * * * RESULT: [facility] [address] [place] [id number] HISTORY: Patient is 73 years old and is seen for screening. No current complaints. The patient has no personal history of cancer. COMPARISON STUDIES: The present examination has been compared to prior imaging studies dated 04/09/2019 (mammogram), 04/11/2020 (mammogram) and 10/26/2022 (mammogram). MAMMOGRAM TECHNIQUE: The study was acquired using full field digital technology and interpreted from soft copy. Digital Breast Tomosynthesis (DBT) images were obtained and used to assist in the interpretation of this examination. Computer-aided detection was utilized by the radiologist in the interpretation of this examination. MAMMOGRAM FINDINGS: The breasts are heterogeneously dense, which may obscure small masses. No suspicious masses, calcifications or other abnormalities are seen in either breast. There are no significant changes from the prior study. IMPRESSION: There is no mammographic evidence of malignancy in either breast. Routine follow-up mammogram in 1 year is recommended. BI-RADS Category 1: Negative RISK: Based on the Tyrer-Cuzick (TC) risk assessment model, this patient has a 4.4% lifetime risk of developing breast cancer, meaning they are at average risk for developing breast cancer. However, this is only an estimate based on available history provided on the patient's questionnaire. We encourage all patients talk with their providers about these results, further recommendations for managing breast health, and appropriate supplemental screening options if the patient has dense breast tissue. Interpreting Radiologist: Miah Olvera M.D. Electronically signed on: 12/01/2023 Drying Machine Operator Package Yarns: [email or web address] Transcribe Date/Time: Nov 29 2023 8:51A Dictated by: MIAH OLVERA MD This examination was interpreted and the report reviewed and electronically signed by: MIAH OLVERA MD on Dec 01 2023 2:37AM EST [id number] Normal [facility] Breast Screeningon 2023 Radiology Study observation (narrative) [facility] Basophil percentageOrdered B y: Quentin Kellogg on 06-10-2023 Chloride [Moles/Vol] 108 mmol/L 98-107 [facility] Glucose [Mass/Vol] 131 mg/dL 74-106 [facility] Comment on above: Fasting Glucose resu lt greater than or equal to 126 mg/dL suggests DIABETES MELLITUS per A.D.A. criteria. Potassium [Moles/Vol] 4.6 mmol/L 3.5-5.1 [facility] Sodium [Moles/Vol] 140 mmol/L 136-145 [facility] Laboratory - Chemistry and C hemistry - challengeOrdered By: Quentin Kellogg on 06-10-2023 CO2 [Moles/Vol] 27.0 mmol/L 21.0-32.[address] [facility] Urea nitrogen/Creatinine [Mass ratio] 26.2 mg/mg 10-[address] [facility] No Panel InformationOrdered By: Quentin Kellogg on 06-10-2023 Estimated GFR (MDRD) Amer 52 mL/min >[address] [facility] Comment on above: GFR Calc Estimated GFR (MDRD) Non-Af Amer 43 mL/min >[address] [facility] Comment on above: Non- GFR Calc Serum or plasma calcium swetha urement (mass/volume)Ordered By: Quentin Kellogg on 06-10-2023 Calcium [Mass/Vol] 9.4 mg/dL 8.5-10.1 [facility] Serum or plasma creatinine m easurement (mass/volume)Ordered By: Quentin Kellogg on 06-10-2023 Creatinine [Mass/Vol] 1.30 mg/dL 0.55-1.02 [facility] Comment on above: The validity of the calculated GFR & GFRAA in patients over 70 years has not been determined. Clinical correlation is essential. Serum or plasma urea nitroge n measurement (mass/volume)Ordered By: Quentin Kellogg on 06-10-2023 Urea nitrogen [Mass/Vol] 34 mg/dL 7-[address] [facility] Thin prep Papanicolaou smear with manual screeningOrdered By: Quentin Kellogg on 06-10-2023 Thin prep Papanicolaou smear with manual screening 5 5-[address] [facility] Absolute lymphocyte countOrd ered By: Quentin Kellogg on 06-07-2023 Lymphocytes Auto (Unsp spec) [#/Vol] 2.15 10*3/uL 0.83-4.[address] [facility] Automated lymphocyte count a s percentage of total leukocytesOrdered By: Quentin Kellogg on 06-07-2023 Lymphocytes/100 WBC Auto (Unsp spec) 38.3 % 19-[address] [facility] Basophil percentageOrdered B y: Quentin Kellogg on 06-07-2023 Basophils/100 WBC (Bld) 0.4 % 0-1 [facility] Bilirubin [Mass/Vol] 0.30 mg/dL 0.20-1.00 [facility] Comment on above: For patients on eltr ombopag therapy, use of Dimension [place] TBIL is not recommended. Chloride [Moles/Vol] 112 mmol/L 98-107 [facility] Eosinophils/100 WBC (Bld) 4.6 % 0-[address] [facility] Glucose [Mass/Vol] 105 mg/dL 74-106 [facility] Comment on above: Fasting Glucose resu lt from 100 to 125 mg/dL suggests IMPAIRED HOMEOSTASIS per A.D.A. criteria. Hemoglobin (Bld) [Mass/Vol] 9.8 g/dL 12.0-15.[address] [facility] Monocytes/100 WBC (Bld) 8.6 % 0-10 [facility] Neutrophils (Bld) [#/Vol] 2.7 10*3/uL 2.0-7.[address] [facility] Neutrophils/100 WBC (Bld) 47.6 % 47-[address] [facility] Potassium [Moles/Vol] 5.3 mmol/L 3.5-5.1 [facility] Protein [Mass/Vol] 7.4 g/dL 6.4-8.2 [facility] Sodium [Moles/Vol] 141 mmol/L 136-145 [facility] WBC (Bld) [#/Vol] 5.6 10*3/uL 4.4-11.0 [facility] Determination of erythrocyte mean corpuscular volume (MCV)Ordered By: Quentin Kellogg on 06-07-2023 MCV (RBC) [Entitic vol] 98.5 fL 81-99 [facility] Erythrocyte distribution wid th ratioOrdered By: Quentin Kellogg on 06-07-2023 Erythrocyte distribution width (RBC) [Ratio] 13.6 % 11.6-14.[address] [facility] Erythrocyte distribution wid th standard deviationOrdered By: Quentin Valdez on 06-07-2023 Erythrocyte distribution width (RBC) [Entitic vol] 49.6 fL 35.1-43.9 [facility] Hematocrit Auto (Bld) [Volum e fraction]Ordered By: Quentin Valdez on 06-07-2023 Hematocrit (Bld) [Volume fraction] 33.0 % 37-[address] [facility] Immature granulocytes/100 WB C Auto (Bld)Ordered By: [facility] on 06-07-2023 Immature granulocytes/100 WBC (Bld) 0.500 % 0.0-0.[address] [facility] Comment on above: IG% - Immature Granu locytes (promyelocytes, myelocytes and metamyelocytes) > 1% indicates that a LEFT SHIFT is Present. Laboratory - Chemistry and C hemistry - challengeOrdered By: [facility] 06-07-2023 Albumin/Globulin [Mass ratio] 1.0 {ratio} 0.9-2.[address] [facility] ALP [Catalytic activity/Vol] 105 U/L 45-[address] [facility] ALT [Catalytic activity/Vol] 30 U/L 13-[address] [facility] CO2 [Moles/Vol] 25.0 mmol/L 21.0-32.[address] [facility] Globulin (S) [Mass/Vol] 3.7 g/dL 2.2-4.2 [facility] Urea nitrogen/Creatinine [Mass ratio] 31.7 mg/mg 10-[address] [facility] Laboratory - Hematology and Cell countsOrdered By: Quentin Kellogg 06-07-2023 MCH (RBC) [Entitic mass] 29.3 pg 27.0-32.[address] [facility] MCHC (RBC) [Mass/Vol] 29.7 g/dL 32-36 [facility] Nucleated RBC/100 WBC (Bld) [Ratio] 0 % 0-[address] [facility] Platelet mean volume (Bld) [Entitic vol] 10.0 fL 6.2-12.[address] [facility] Platelets (Bld) [#/Vol] 164 10*3/uL 150-[address] [facility] No Panel InformationOrdered By: Quentin Kellogg on 04-19-2024 Estimated GFR (MDRD) Amer 46 mL/min >[address] [facility] Comment on above: GFR Calc Estimated GFR (MDRD) Non-Af Amer 38 mL/min >[address] [facility] Comment on above: Non- GFR Calc Vitamin D 25-Hydroxy 57.4 ng/mL [facility] Comment on above: Vitamin D 25(OH) Sta tus Range Deficiency <20 ng/mL (50nmol/L) Insufficiency 20 - 30 ng/mL (50 - 75 nmol/L) Sufficiency 30 - 100 ng/mL (75 - 250 nmol/L) Toxicity >100 ng/mL (>250 nmol/L) RBC Auto (Bld) [#/Vol]Ordere d By: Quentin Kellogg on 06-07-2023 RBC (Bld) [#/Vol] 3.35 10*6/uL 4.2-5.4 [facility] Serum or plasma calcium swetha urement (mass/volume)Ordered By: Quentin Kellogg on 06-07-2023 Calcium [Mass/Vol] 9.5 mg/dL 8.5-10.1 [facility] Serum or plasma creatinine m easurement (mass/volume)Ordered By: Quentin Kellogg on 06-07-2023 Creatinine [Mass/Vol] 1.45 mg/dL 0.55-1.02 [facility] Comment on above: The validity of the calculated GFR & GFRAA in patients over 70 years has not been determined. Clinical correlation is essential. Serum or plasma thyroid stim ulating hormone (TSH) measurement (units/volume)Ordered By: Quentin Kellogg on 06-07-2023 TSH Qn 2.15 uIU/mL 0.358-3.[address] [facility] Serum or plasma urea nitroge n measurement (mass/volume)Ordered By: Quentin Kellogg 06-07-2023 Urea nitrogen [Mass/Vol] 46 mg/dL 7-[address] [facility] Thin prep Papanicolaou smear with manual screeningOrdered By: Quentin Kellogg on 06-07-2023 Thin prep Papanicolaou smear with manual screening 3.7 g/dL 3.2-5.[address] [facility] Thin prep Papanicolaou smear with manual screening 22 U/L 15-[address] [facility] Thin prep Papanicolaou smear with manual screening 4 5-[address] [facility] Basophil percentageOrdered B y: Alma Olmos on 05-08-2023 Chloride [Moles/Vol] 111 mmol/L 98-107 [facility] Glucose [Mass/Vol] 131 mg/dL 74-106 [facility] Comment on above: Fasting Glucose resu lt greater than or equal to 126 mg/dL suggests DIABETES MELLITUS per A.D.A. criteria. Potassium [Moles/Vol] 5.0 mmol/L 3.5-5.1 [facility] Sodium [Moles/Vol] 142 mmol/L 136-145 [facility] Laboratory - Chemistry and C hemistry - challengeOrdered By: Alma Olmos on 05-08-2023 CO2 [Moles/Vol] 23.0 mmol/L 21.0-32.[address] [facility] Urea nitrogen/Creatinine [Mass ratio] 23.4 mg/mg 10- [facility] No Panel InformationOrdered By: Alma Olmos on 05-08-2023 Estimated GFR (MDRD) Amer 47 mL/min >[address] [facility] Comment on above: GFR Calc Estimated GFR (MDRD) Non-Af Amer 39 mL/min >[address] [facility] Comment on above: Non- GFR Calc Serum or plasma calcium swetha urement (mass/volume)Ordered By: Alma Olmos on 05-08-2023 Calcium [Mass/Vol] 9.2 mg/dL 8.5-10.1 [facility] Serum or plasma creatinine m easurement (mass/volume)Ordered By: Alma Olmos on 05-08-2023 Creatinine [Mass/Vol] 1.41 mg/dL 0.55-1.02 [facility] Comment on above: The validity of the calculated GFR & GFRAA in patients over 70 years has not been determined. Clinical correlation is essential. Serum or plasma urea nitroge n measurement (mass/volume)Ordered By: Alma Olmos on 05-08-2023 Urea nitrogen [Mass/Vol] 33 mg/dL 7-[address] [facility] Thin prep Papanicolaou smear with manual screeningOrdered By: Alma Olmos on 05-08-2023 Thin prep Papanicolaou smear with manual screening 8 -[address] [facility] Basophil percentageOrdered B y: Alma Olmos on 05-06-2023 Basophil percentage 3.9 mg/dL 2.5-4.9 [facility] Chloride [Moles/Vol] 112 mmol/L 98-107 [facility] Glucose [Mass/Vol] 134 mg/dL 74-106 [facility] Comment on above: Fasting Glucose resu lt greater than or equal to 126 mg/dL suggests DIABETES MELLITUS per A.D.A. criteria. Potassium [Moles/Vol] 5.4 mmol/L 3.5-5.1 [facility] Sodium [Moles/Vol] 141 mmol/L 136-145 [facility] Laboratory - Chemistry and C hemistry - challengeOrdered By: Alma Olmos on 05-06-2023 CO2 [Moles/Vol] 23.0 mmol/L 21.0-32.[address] [facility] Urea nitrogen/Creatinine [Mass ratio] 22.1 mg/mg 10-[address] [facility] No Panel InformationOrdered By: Alma Olmos on 05-06-2023 Estimated GFR (MDRD) Amer 44 mL/min >[address] [facility] Comment on above: GFR Calc Estimated GFR (MDRD) Non-Af Amer 37 mL/min >[address] [facility] Comment on above: Non- GFR Calc Serum or plasma calcium swetha urement (mass/volume)Ordered By: Alma Olmos on 05-06-2023 Calcium [Mass/Vol] 9.1 mg/dL 8.5-10.1 [facility] Serum or plasma creatinine m easurement (mass/volume)Ordered By: Alma Olmos on 05-06-2023 Creatinine [Mass/Vol] 1.49 mg/dL 0.55-1.02 [facility] Comment on above: The validity of the calculated GFR & GFRAA in patients over 70 years has not been determined. Clinical correlation is essential. Serum or plasma urea nitroge n measurement (mass/volume)Ordered By: Alma Olmos on 05-06-2023 Urea nitrogen [Mass/Vol] 33 mg/dL -[address] [facility] Thin prep Papanicolaou smear with manual screeningOrdered By: Alma Olmos on 05-06-2023 Thin prep Papanicolaou smear with manual screening 3.6 g/dL 3.2-5.[address] [facility] Absolute lymphocyte countOrd ered By: Quentin Galeok on 03-07-2023 Lymphocytes Auto (Unsp spec) [#/Vol] 1.79 10*3/uL 0.83-4.[address] [facility] Automated lymphocyte count a s percentage of total leukocytesOrdered By: Quentin Kellogg on 03-07-2023 Lymphocytes/100 WBC Auto (Unsp spec) 32.4 % 19-[address] [facility] Basophil percentageOrdered B y: Quentin Kellogg on 03-07-2023 Basophils/100 WBC (Bld) 0.4 % 0-1 [facility] Bilirubin [Mass/Vol] 0.40 mg/dL 0.20-1.00 [facility] Comment on above: For patients on eltr ombopag therapy, use of Dimension [place] TBIL is not recommended. Chloride [Moles/Vol] 111 mmol/L 98-107 [facility] Eosinophils/100 WBC (Bld) 4.0 % 0-[address] [facility] Glucose [Mass/Vol] 144 mg/dL 74-106 [facility] Comment on above: Fasting Glucose resu lt greater than or equal to 126 mg/dL suggests DIABETES MELLITUS per A.D.A. criteria. Hemoglobin (Bld) [Mass/Vol] 10.3 g/dL 12.0-15.[address] [facility] Monocytes/100 WBC (Bld) 10.1 % 0-10 [facility] Neutrophils (Bld) [#/Vol] 2.9 10*3/uL 2.0-7.[address] [facility] Neutrophils/100 WBC (Bld) 52.6 % 47-[address] [facility] Potassium [Moles/Vol] 4.6 mmol/L 3.5-5.1 [facility] Protein [Mass/Vol] 7.4 g/dL 6.4-8.2 [facility] Sodium [Moles/Vol] 141 mmol/L 136-145 [facility] WBC (Bld) [#/Vol] 5.5 10*3/uL 4.4-11.0 [facility] Determination of erythrocyte mean corpuscular volume (MCV)Ordered By: Quentin Kellogg on 03-07-2023 MCV (RBC) [Entitic vol] 99.7 fL 81-99 [facility] Erythrocyte distribution wid th ratioOrdered By: Quentin Kellogg on 03-07-2023 Erythrocyte distribution width (RBC) [Ratio] 12.8 % 11.6-14.[address] [facility] Erythrocyte distribution wid th standard deviationOrdered By: Quentin Kellogg on 03-07-2023 Erythrocyte distribution width (RBC) [Entitic vol] 46.8 fL 35.1-43.9 [facility] Hematocrit Auto (Bld) [Volum e fraction]Ordered By: Quentin Kellogg on 03-07-2023 Hematocrit (Bld) [Volume fraction] 33.5 % 37-[address] [facility] Immature granulocytes/100 WB C Auto (Bld)Ordered By: Quentin Kellogg 03-07-2023 Immature granulocytes/100 WBC (Bld) 0.500 % 0.0-0.[address] [facility] Comment on above: IG% - Immature Granu locytes (promyelocytes, myelocytes and metamyelocytes) > 1% indicates that a LEFT SHIFT is Present. Laboratory - Chemistry and C hemistry - challengeOrdered By: Quentin Kellogg 03-07-2023 Albumin/Globulin [Mass ratio] 1.2 {ratio} 0.9-2.[address] [facility] ALP [Catalytic activity/Vol] 92 U/L 45-[address] [facility] ALT [Catalytic activity/Vol] 30 U/L 13-[address] [facility] CO2 [Moles/Vol] 23.0 mmol/L 21.0-32.[address] [facility] Globulin (S) [Mass/Vol] 3.4 g/dL 2.2-4.2 [facility] Urea nitrogen/Creatinine [Mass ratio] 29.7 mg/mg 10-[address] [facility] Laboratory - Hematology and Cell countsOrdered By: Quentin Kelolgg 03-07-2023 MCH (RBC) [Entitic mass] 30.7 pg 27.0-32.[address] [facility] MCHC (RBC) [Mass/Vol] 30.7 g/dL 32-36 [facility] Nucleated RBC/100 WBC (Bld) [Ratio] 0 % 0-[address] [facility] Platelets (Bld) [#/Vol] 193 10*3/uL 150-[address] [facility] No Panel InformationOrdered By: Quentin Kellogg on 03-07-2023 Estimated GFR (MDRD) Amer 42 mL/min >[address] [facility] Comment on above: GFR Calc Estimated GFR (MDRD) Non-Af Amer 35 mL/min >[address] [facility] Comment on above: Non- GFR Calc Vitamin D 25-Hydroxy 52.1 ng/mL [facility] Comment on above: Vitamin D 25(OH) Sta tus Range Deficiency <20 ng/mL (50nmol/L) Insufficiency 20 - 30 ng/mL (50 - 75 nmol/L) Sufficiency 30 - 100 ng/mL (75 - 250 nmol/L) Toxicity >100 ng/mL (>250 nmol/L) Platelet mean volume Napoleon-[facility] ker (Bld) [Entitic vol]Ordered By: Quentin Kellogg on 03-07-2023 Platelet mean volume (Bld) [Entitic vol] 10.2 fL 6.2-12.[address] [facility] RBC Auto (Bld) [#/Vol]Ordere d By: Quentin Kellogg on 03-07-2023 RBC (Bld) [#/Vol] 3.36 10*6/uL 4.2-5.4 [facility] Serum or plasma calcium swetha urement (mass/volume)Ordered By: Quentin Kellogg on 03-07-2023 Calcium [Mass/Vol] 9.5 mg/dL 8.5-10.1 [facility] Serum or plasma creatinine m easurement (mass/volume)Ordered By: Quentin Kellogg 03-07-2023 Creatinine [Mass/Vol] 1.55 mg/dL 0.55-1.02 [facility] Comment on above: The validity of the calculated GFR & GFRAA in patients over 70 years has not been determined. Clinical correlation is essential. Serum or plasma thyroid stim ulating hormone (TSH) measurement (units/volume)Ordered By: Quentin Kellogg on 03-07-2023 TSH Qn 1.41 uIU/mL 0.358-3.[address] [facility] Serum or plasma urea nitroge n measurement (mass/volume)Ordered By: Quentin Kellogg on 03-07-2023 Urea nitrogen [Mass/Vol] 46 mg/dL -[address] [facility] Thin prep Papanicolaou smear with manual screeningOrdered By: Quentin Kellogg on 03-07-2023 Thin prep Papanicolaou smear with manual screening 4.0 g/dL 3.2-5.[address] [facility] Thin prep Papanicolaou smear with manual screening 24 U/L 15-[address] [facility] Thin prep Papanicolaou smear with manual screening 7 5-[address] [facility] Absolute lymphocyte countOrd ered By: Quentin Kellogg on 12-04-2022 Lymphocytes Auto (Unsp spec) [#/Vol] 2.41 10*3/uL 0.83-4.[address] [facility] Basophil percentageOrdered B y: Quentin Kellogg on 12-04-2022 Basophil percentage Not Reportable [facility] Bilirubin [Mass/Vol] 0.30 mg/dL 0.20-1.00 [facility] Comment on above: For patients on eltr ombopag therapy, use of Dimension [place] TBIL is not recommended. Chloride [Moles/Vol] 111 mmol/L 98-107 [facility] Glucose [Mass/Vol] 110 mg/dL 74-106 [facility] Comment on above: Fasting Glucose resu lt from 100 to 125 mg/dL suggests IMPAIRED HOMEOSTASIS per A.D.A. criteria. Neutrophils (Bld) [#/Vol] 3.7 10*3/uL 2.0-7.[address] [facility] Potassium [Moles/Vol] 5.0 mmol/L 3.5-5.1 [facility] Protein [Mass/Vol] 6.9 g/dL 6.4-8.2 [facility] Sodium [Moles/Vol] 137 mmol/L 136-145 [facility] WBC (Bld) [#/Vol] 7.3 10*3/uL 4.4-11.0 [facility] Blood eosinophils/100 leukoc ytesOrdered By: Quentin Kellogg on 12-04-2022 Eosinophils/100 WBC (Bld) 2 % 0-[address] [facility] Blood erythrocytes count (nu mber/volume)Ordered By: Quentin Kellogg on 12-04-2022 RBC (Bld) [#/Vol] 3.49 10*6/uL 4.2-5.4 [facility] Blood hemoglobin measurement (mass/volume)Ordered By: Quentin Kellogg on 12-04-2022 Hemoglobin (Bld) [Mass/Vol] 10.5 g/dL 12.0-15.[address] [facility] Blood lymphocytes/100 leukoc ytesOrdered By: Quentin Kellogg on 12-04-2022 Lymphocytes/100 WBC (Bld) 33 % 19-[address] [facility] Blood metamyelocytes/100 marcus kocytesOrdered By: Quentin Kellogg on 12-04-2022 Metamyelocytes/100 WBC (Bld) 1 % 0-[address] [facility] Blood monocytes/100 leukocyt esOrdered By: Quentin Kellogg on 12-04-2022 Monocytes/100 WBC (Bld) 10 % 0-10 [facility] Blood platelet adequacy dete ction by light microscopyOrdered By: Quentin Kellogg on 12-04-2022 Platelets LM Ql (Bld) ADEQUATE ADEQ [facility] Blood platelet mean volumeOr dered By: Quentin Kellogg on 12-04-2022 Platelet mean volume (Bld) [Entitic vol] 10.0 fL 6.2-12.[address] [facility] Blood segmented neutrophils/ 100 leukocytesOrdered By: Quentin Kellogg on 12-04-2022 Segmented neutrophils/100 WBC (Bld) 50 % 47-[address] [facility] Determination of erythrocyte mean corpuscular volume (MCV)Ordered By: Quentin Kellogg on 12-04-2022 MCV (RBC) [Entitic vol] 98.9 fL 81-99 [facility] Hematocrit Auto (Bld) [Volum e fraction]Ordered By: Quentin Kellogg on 12-04-2022 Hematocrit (Bld) [Volume fraction] 34.5 % 37-[address] [facility] Laboratory - Chemistry and C hemistry - challengeOrdered By: Quentin Kellogg on 12-04-2022 ALP [Catalytic activity/Vol] 75 U/L 45-[address] [facility] ALT [Catalytic activity/Vol] 30 U/L 13-[address] [facility] CO2 [Moles/Vol] 25.0 mmol/L 21.0-32.[address] [facility] Globulin (S) [Mass/Vol] 3.3 g/dL 2.2-4.2 [facility] Urea nitrogen/Creatinine [Mass ratio] 27.9 mg/mg 10-[address] [facility] Laboratory - Hematology and Cell countsOrdered By: Quentin Kellogg on 12-04-2022 Erythrocyte distribution width (RBC) [Entitic vol] 46.4 fL 35.1-43.9 [facility] Erythrocyte distribution width (RBC) [Ratio] 13.0 % 11.6-14.[address] [facility] MCH (RBC) [Entitic mass] 30.1 pg 27.0-32.[address] [facility] Myelocytes/100 WBC (Bld) 4 % 0-[address] [facility] MCHC Auto (RBC) [Mass/Vol]Or dered By: Quentin Kellogg on 12-04-2022 MCHC (RBC) [Mass/Vol] 30.4 g/dL 32-36 [facility] No Panel InformationOrdered By: Quentin Kellogg on 12-04-2022 Estimated GFR (MDRD) Amer 43 mL/min >[address] [facility] Comment on above: GFR Calc Estimated GFR (MDRD) Non-Af Amer 35 mL/min >[address] [facility] Comment on above: Non- GFR Calc Thyroid Stimulating Hormone (TSH) 1.66 uIU/mL 0.358-3.[address] [facility] Vitamin D 25-Hydroxy 41.9 ng/mL [facility] Comment on above: Vitamin D 25(OH) Sta tus Range Deficiency <20 ng/mL (50nmol/L) Insufficiency 20 - 30 ng/mL (50 - 75 nmol/L) Sufficiency 30 - 100 ng/mL (75 - 250 nmol/L) Toxicity >100 ng/mL (>250 nmol/L) Platelets bldOrdered By: uQentin Kellogg on 12-04-2022 Platelets (Bld) [#/Vol] 191 10*3/uL 150-[address] [facility] RBC morphologyOrdered By: Santi Kellogg on 12-04-2022 RBC morphology finding Nom (Bld) NORM C+C NORMAL NORM C&C [facility] Review by pathologistOrdered By: Quentin Kellogg on 12-04-2022 Pathologist review Michael (Unsp spec) [Interp] Reviewed [facility] Comment on above: Previous reported re sult: Erika garcia Edited by: RGOOD on 12/05/22:1520Neutrophilic left shift.Normocytic anemia.Clinical correlation necessary.Ede Myers M.D. 12/05/22 AMENDED REPORT 12/05/22 1520 PATH REV previously reported as: June foll Serum or plasma albumin swetha urement (mass/volume)Ordered By: Quentin Kellogg on 12-04-2022 Albumin [Mass/Vol] 3.6 g/dL 3.2-5.0 [facility] Serum or plasma albumin/glob ulin mass ratioOrdered By: Quentin Kellogg on 12-04-2022 Albumin/Globulin [Mass ratio] 1.1 {ratio} 0.9-2.[address] [facility] Serum or plasma calcium swetha urement (mass/volume)Ordered By: Quentin Kellogg on 12-04-2022 Calcium [Mass/Vol] 9.1 mg/dL 8.5-10.1 [facility] Serum or plasma creatinine m easurement (mass/volume)Ordered By: Quentin Kellogg on 12-04-2022 Creatinine [Mass/Vol] 1.54 mg/dL 0.55-1.02 [facility] Comment on above: The validity of the calculated GFR & GFRAA in patients over 70 years has not been determined. Clinical correlation is essential. Serum or plasma urea nitroge n measurement (mass/volume)Ordered By: Quentin Kellogg on 12-04-2022 Urea nitrogen [Mass/Vol] 43 mg/dL 7-[address] [facility] Thin prep Papanicolaou smear with manual screeningOrdered By: Quentin Kellogg on 12-04-2022 Thin prep Papanicolaou smear with manual screening 19 U/L 15-[address] [facility] Thin prep Papanicolaou smear with manual screening 1 5-[address] [facility] Total cell countOrdered By: Quentin Kellogg on 12-04-2022 Cells counted Mol[employer] (Bld/Tiss) [#] 100 MANUAL DIFF [facility] DANAY SCREENINGon 10-26-2022 [facility] Basophil percentageOrdered B y: Quentin Kellogg on 09-19-2022 Chloride [Moles/Vol] 112 mmol/L 98-107 [facility] Glucose [Mass/Vol] 112 mg/dL 74-106 [facility] Comment on above: Fasting Glucose resu lt from 100 to 125 mg/dL suggests IMPAIRED HOMEOSTASIS per A.D.A. criteria. Potassium [Moles/Vol] 4.8 mmol/L 3.5-5.1 [facility] Sodium [Moles/Vol] 142 mmol/L 136-145 [facility] Laboratory - Chemistry and C hemistry - challengeOrdered By: Quentin Kellogg on 09-19-2022 CO2 [Moles/Vol] 24.0 mmol/L 21.0-32.[address] [facility] Urea nitrogen/Creatinine [Mass ratio] 18.1 mg/mg 10-[address] [facility] No Panel InformationOrdered By: Quentin Kellogg on 09-19-2022 Estimated GFR (MDRD) Amer 44 mL/min >[address] [facility] Comment on above: GFR Calc Estimated GFR (MDRD) Non-Af Amer 37 mL/min >[address] [facility] Comment on above: Non- GFR Calc Serum or plasma calcium swetha urement (mass/volume)Ordered By: Quentin Kellogg on 09-19-2022 Calcium [Mass/Vol] 9.1 mg/dL 8.5-10.1 [facility] Serum or plasma creatinine m easurement (mass/volume)Ordered By: Quentin Kellogg on 09-19-2022 Creatinine [Mass/Vol] 1.49 mg/dL 0.55-1.02 [facility] Comment on above: The validity of the calculated GFR & GFRAA in patients over 70 years has not been determined. Clinical correlation is essential. Serum or plasma urea nitroge n measurement (mass/volume)Ordered By: Quentin Kellogg on 09-19-2022 Urea nitrogen [Mass/Vol] 27 mg/dL 7-[address] [facility] Thin prep Papanicolaou smear with manual screeningOrdered By: Quentin Kellogg on 09-19-2022 Thin prep Papanicolaou smear with manual screening 6 5-[address] [facility] Absolute lymphocyte countOrd ered By: Quentin Kellogg on 09-11-2022 Lymphocytes Auto (Unsp spec) [#/Vol] 2.05 10*3/uL 0.83-4.[address] [facility] Basophil percentageOrdered B y: Quentin Kellogg on 09-11-2022 Basophils/100 WBC (Bld) 0.3 % 0-1 [facility] Bilirubin [Mass/Vol] 0.40 mg/dL 0.20-1.00 [facility] Comment on above: For patients on eltr ombopag therapy, use of Dimension [place] TBIL is not recommended. Chloride [Moles/Vol] 110 mmol/L 98-107 [facility] Eosinophils/100 WBC (Bld) 3.8 % 0-[address] [facility] Glucose [Mass/Vol] 123 mg/dL 74-106 [facility] Comment on above: Fasting Glucose resu lt from 100 to 125 mg/dL suggests IMPAIRED HOMEOSTASIS per A.D.A. criteria. Neutrophils (Bld) [#/Vol] 2.8 10*3/uL 2.0-7.[address] [facility] Neutrophils/100 WBC (Bld) 48.9 % 47-[address] [facility] Potassium [Moles/Vol] 5.4 mmol/L 3.5-5.1 [facility] Protein [Mass/Vol] 7.3 g/dL 6.4-8.2 [facility] Sodium [Moles/Vol] 138 mmol/L 136-145 [facility] WBC (Bld) [#/Vol] 5.8 10*3/uL 4.4-11.0 [facility] Blood erythrocytes count (nu mber/volume)Ordered By: Quentin Kellogg on 09-11-2022 RBC (Bld) [#/Vol] 3.54 10*6/uL 4.2-5.4 [facility] Blood hemoglobin measurement (mass/volume)Ordered By: Quentin Kellogg on 09-11-2022 Hemoglobin (Bld) [Mass/Vol] 10.7 g/dL 12.0-15.[address] [facility] Blood lymphocytes/100 leukoc ytesOrdered By: Quentin Kellogg on 09-11-2022 Lymphocytes/100 WBC (Bld) 35.3 % 19-[address] [facility] Blood monocytes/100 leukocyt esOrdered By: Quentin Kellogg on 09-11-2022 Monocytes/100 WBC (Bld) 10.5 % 0-10 [facility] Blood platelet mean volumeOr dered By: Quentin Kellogg on 09-11-2022 Platelet mean volume (Bld) [Entitic vol] 9.6 fL 6.2-12.[address] [facility] Clostridium difficile detect ion by polymerase chain reactionOrdered By: Quentin Kellogg on 09-11-2022 C. difficile DNA ISIS+probe Ql (Unsp spec) [facility] Culture, urineOrdered By: Santi Kellogg on 09-11-2022 Bacteria identified Cx Nom (U) Escherichia coli [facility] Determination of erythrocyte mean corpuscular volume (MCV)Ordered By: Quentin Kellogg on 09-11-2022 MCV (RBC) [Entitic vol] 97.2 fL 81-99 [facility] Hematocrit Auto (Bld) [Volum e fraction]Ordered By: Quentin Kellogg on 09-11-2022 Hematocrit (Bld) [Volume fraction] 34.4 % 37-[address] [facility] Laboratory - Chemistry and C hemistry - challengeOrdered By: Quentin Kellogg on 09-11-2022 ALP [Catalytic activity/Vol] 103 U/L 45-[address] [facility] ALT [Catalytic activity/Vol] 28 U/L 13-[address] [facility] CO2 [Moles/Vol] 24.0 mmol/L 21.0-32.[address] [facility] Globulin (S) [Mass/Vol] 3.6 g/dL 2.2-4.2 [facility] Urea nitrogen/Creatinine [Mass ratio] 21.6 mg/mg 10-[address] [facility] Laboratory - Hematology and Cell countsOrdered By: Quentin Kellogg on 09-11-2022 Erythrocyte distribution width (RBC) [Entitic vol] 43.9 fL 35.1-43.9 [facility] Erythrocyte distribution width (RBC) [Ratio] 12.3 % 11.6-14.[address] [facility] Immature granulocytes/100 WBC (Bld) 1.200 % 0.0-0.[address] [facility] Comment on above: IG% - Immature Granu locytes (promyelocytes, myelocytes and metamyelocytes) > 1% indicates that a LEFT SHIFT is Present. MCH (RBC) [Entitic mass] 30.2 pg 27.0-32.[address] [facility] Nucleated RBC/100 WBC (Bld) [Ratio] 0 % 0-[address] [facility] MCHC Auto (RBC) [Mass/Vol]Or dered By: Quentin Kellogg on 09-11-2022 MCHC (RBC) [Mass/Vol] 31.1 g/dL 32-36 [facility] No Panel InformationOrdered By: Quentin Kellogg on 09-11-2022 Estimated GFR (MDRD) Amer 48 mL/min >[address] [facility] Comment on above: GFR Calc Estimated GFR (MDRD) Non-Af Amer 40 mL/min >[address] [facility] Comment on above: Non- GFR Calc Ova and parasitesOrdered By: Quentin Kellogg on 09-11-2022 Ova and parasites identified LM Nom (Unsp spec) [facility] [facility] Platelets bldOrdered By: Quentin Kellogg on 09-11-2022 Platelets (Bld) [#/Vol] 228 10*3/uL 150-[address] [facility] Serum or plasma albumin swetha urement (mass/volume)Ordered By: Quentin Kellogg on 09-11-2022 Albumin [Mass/Vol] 3.7 g/dL 3.2-5.0 [facility] Serum or plasma albumin/glob ulin mass ratioOrdered By: Quentin Kellogg on 09-11-2022 Albumin/Globulin [Mass ratio] 1.0 {ratio} 0.9-2.[address] [facility] Serum or plasma calcium swetha urement (mass/volume)Ordered By: Quentin Kellogg 09-11-2022 Calcium [Mass/Vol] 9.4 mg/dL 8.5-10.1 [facility] Serum or plasma creatinine m easurement (mass/volume)Ordered By: Quentin Kellogg 09-11-2022 Creatinine [Mass/Vol] 1.39 mg/dL 0.55-1.02 [facility] Comment on above: The validity of the calculated GFR & GFRAA in patients over 70 years has not been determined. Clinical correlation is essential. Serum or plasma urea nitroge n measurement (mass/volume)Ordered By: Quentin Kellogg on 09-11-2022 Urea nitrogen [Mass/Vol] 30 mg/dL 7-[address] [facility] Stool enteric pathogen panel by probe and target amplification methodOrdered By: Quentin Kellogg on 09-11-2022 Gastrointestinal pathogens panel ISIS+probe (St) [facility] Stool gastrointestinal hemog lobin detection by immunologic methodOrdered By: Quentin Kellogg 09-11-2022 Lower GI hemoglobin IA Ql (Stl) [facility] Stool lactoferrin detection by immunoassayOrdered By: Quentin Kellogg on 09-11-2022 Lactoferrin IA Ql (Stl) [facility] Thin prep Papanicolaou smear with manual screeningOrdered By: Quentin Kellogg on 09-11-2022 Thin prep Papanicolaou smear with manual screening 19 U/L 15-[address] [facility] Thin prep Papanicolaou smear with manual screening 4 5-[address] [facility] Absolute lymphocyte countOrd ered By: Will Colmenares on 09-07-2022 Lymphocytes Auto (Unsp spec) [#/Vol] 1.89 10*3/uL 0.83-4.[address] [facility] Basophil percentageOrdered B y: Will Colmenares on 09-07-2022 Basophils/100 WBC (Bld) 0.2 % 0-1 [facility] Chloride [Moles/Vol] 112 mmol/L 98-107 [facility] Eosinophils/100 WBC (Bld) 4.0 % 0-[address] [facility] Glucose [Mass/Vol] 144 mg/dL 74-106 [facility] Comment on above: Fasting Glucose resu lt greater than or equal to 126 mg/dL suggests DIABETES MELLITUS per A.D.A. criteria. Neutrophils (Bld) [#/Vol] 2.8 10*3/uL 2.0-7.[address] [facility] Neutrophils/100 WBC (Bld) 49.2 % 47-[address] [facility] Potassium [Moles/Vol] 4.6 mmol/L 3.5-5.1 [facility] Sodium [Moles/Vol] 141 mmol/L 136-145 [facility] WBC (Bld) [#/Vol] 5.7 10*3/uL 4.4-11.0 [facility] Blood erythrocytes count (nu mber/volume)Ordered By: Wlil Colmenares on 09-07-2022 RBC (Bld) [#/Vol] 3.38 10*6/uL 4.2-5.4 [facility] Blood hemoglobin measurement (mass/volume)Ordered By: Will Colmenares on 09-07-2022 Hemoglobin (Bld) [Mass/Vol] 10.4 g/dL 12.0-15.[address] [facility] Blood lymphocytes/100 leukoc ytesOrdered By: Will Colmenares on 09-07-2022 Lymphocytes/100 WBC (Bld) 33.0 % 19-[address] [facility] Blood monocytes/100 leukocyt esOrdered By: Will Colmenares on 09-07-2022 Monocytes/100 WBC (Bld) 13.1 % 0-10 [facility] Blood platelet mean volumeOr dered By: Will Colmenares on 09-07-2022 Platelet mean volume (Bld) [Entitic vol] 9.5 fL 6.2-12.[address] [facility] Determination of erythrocyte mean corpuscular volume (MCV)Ordered By: Will Colmenares on 09-07-2022 MCV (RBC) [Entitic vol] 98.2 fL 81-99 [facility] Hematocrit Auto (Bld) [Volum e fraction]Ordered By: Will Colmenares on 09-07-2022 Hematocrit (Bld) [Volume fraction] 33.2 % 37-[address] [facility] Laboratory - Chemistry and C hemistry - challengeOrdered By: Will Colmenares on 09-07-2022 CO2 [Moles/Vol] 23.0 mmol/L 21.0-32.[address] [facility] Natriuretic peptide B (Bld) [Mass/Vol] 62.4 pg/mL 0-[address] [facility] Urea nitrogen/Creatinine [Mass ratio] 30.5 mg/mg 10-[address] [facility] Laboratory - Hematology and Cell countsOrdered By: Will Colmenares on 09-07-2022 Erythrocyte distribution width (RBC) [Entitic vol] 44.9 fL 35.1-43.9 [facility] Erythrocyte distribution width (RBC) [Ratio] 12.5 % 11.6-14.[address] [facility] Immature granulocytes/100 WBC (Bld) 0.500 % 0.0-0.[address] [facility] Comment on above: IG% - Immature Granu locytes (promyelocytes, myelocytes and metamyelocytes) > 1% indicates that a LEFT SHIFT is Present. MCH (RBC) [Entitic mass] 30.8 pg 27.0-32.[address] [facility] Nucleated RBC/100 WBC (Bld) [Ratio] 0 % 0-[address] [facility] MCHC Auto (RBC) [Mass/Vol]Or dered By: Will Colmenares on 09-07-2022 MCHC (RBC) [Mass/Vol] 31.3 g/dL 32-36 [facility] No Panel InformationOrdered By: Will Colmenares on 09-07-2022 Troponin I High Sensitivity 9 pg/mL 3.0-54.[address] [facility] Comment on above: Please Note: New Prashanth t Units and Gender Specific Reference Ranges. For more information see Policy Stat Procedure [place] High Sensitivity Troponin (TNIH) and attachments. Estimated Creatinine Clearance Calc 31.60 ml/min [facility] Estimated GFR (MDRD) Amer 47 mL/min >[address] [facility] Comment on above: GFR Calc Estimated GFR (MDRD) Non-Af Amer 39 mL/min >[address] [facility] Comment on above: Non- GFR Calc Platelets bldOrdered By: Willy Colmenares on 09-07-2022 Platelets (Bld) [#/Vol] 178 10*3/uL 150-[address] [facility] Serum or plasma calcium swetha urement (mass/volume)Ordered By: Will Colmenares on 09-07-2022 Calcium [Mass/Vol] 9.2 mg/dL 8.5-10.1 [facility] Serum or plasma creatinine m easurement (mass/volume)Ordered By: Will Colmenares on 09-07-2022 Creatinine [Mass/Vol] 1.41 mg/dL 0.55-1.02 [facility] Comment on above: The validity of the calculated GFR & GFRAA in patients over 70 years has not been determined. Clinical correlation is essential. Serum or plasma urea nitroge n measurement (mass/volume)Ordered By: Will Colmenares on 09-07-2022 Urea nitrogen [Mass/Vol] 43 mg/dL 7-[address] [facility] Thin prep Papanicolaou smear with manual screeningOrdered By: Will Colmenares on 09-07-2022 Thin prep Papanicolaou smear with manual screening 6 5-[address] [facility] Absolute lymphocyte countOrd ered By: Quentin Kellogg on 09-05-2022 Lymphocytes Auto (Unsp spec) [#/Vol] 1.87 10*3/uL 0.83-4.[address] [facility] Basophil percentageOrdered B y: Quentin Kellogg on 09-05-2022 Basophils/100 WBC (Bld) 0.2 % 0-1 [facility] Eosinophils/100 WBC (Bld) 5.3 % 0-[address] [facility] Neutrophils (Bld) [#/Vol] 2.7 10*3/uL 2.0-7.[address] [facility] Neutrophils/100 WBC (Bld) 46.8 % 47-[address] [facility] WBC (Bld) [#/Vol] 5.7 10*3/uL 4.4-11.0 [facility] Blood erythrocytes count (nu mber/volume)Ordered By: Quentin Kellogg on 09-05-2022 RBC (Bld) [#/Vol] 3.26 10*6/uL 4.2-5.4 [facility] Blood hemoglobin measurement (mass/volume)Ordered By: Quentin Kellogg on 09-05-2022 Hemoglobin (Bld) [Mass/Vol] 10.0 g/dL 12.0-15.[address] [facility] Blood lymphocytes/100 leukoc ytesOrdered By: Quentin Kellogg on 09-05-2022 Lymphocytes/100 WBC (Bld) 33.0 % 19-[address] [facility] Blood monocytes/100 leukocyt esOrdered By: Quentin Galeok on 09-05-2022 Monocytes/100 WBC (Bld) 14.3 % 0-10 [facility] Blood platelet mean volumeOr dered By: Quentin Kellogg on 09-05-2022 Platelet mean volume (Bld) [Entitic vol] 10.4 fL 6.2-12.[address] [facility] Determination of erythrocyte mean corpuscular volume (MCV)Ordered By: Quentin Kellogg on 09-05-2022 MCV (RBC) [Entitic vol] 100.6 fL 81-99 [facility] Hematocrit Auto (Bld) [Volum e fraction]Ordered By: Quentin Kellogg on 09-05-2022 Hematocrit (Bld) [Volume fraction] 32.8 % 37-[address] [facility] Laboratory - Hematology and Cell countsOrdered By: Quentin Kellogg on 09-05-2022 Erythrocyte distribution width (RBC) [Entitic vol] 47.2 fL 35.1-43.9 [facility] Erythrocyte distribution width (RBC) [Ratio] 12.8 % 11.6-14.[address] [facility] Immature granulocytes/100 WBC (Bld) 0.400 % 0.0-0.[address] [facility] Comment on above: IG% - Immature Granu locytes (promyelocytes, myelocytes and metamyelocytes) > 1% indicates that a LEFT SHIFT is Present. MCH (RBC) [Entitic mass] 30.7 pg 27.0-32.[address] [facility] Nucleated RBC/100 WBC (Bld) [Ratio] 0 % 0-[address] [facility] Lower GI hemoglobin IA Ql (S tl)Ordered By: Quentin Kellogg on 09-05-2022 Stool Occult Blood (GILBERT) Positive [facility] MCHC Auto (RBC) [Mass/Vol]Or dered By: Quentin Kellogg on 09-05-2022 MCHC (RBC) [Mass/Vol] 30.5 g/dL 32-36 [facility] No Panel InformationOrdered By: Quentin Kellogg on 09-05-2022 Miscellaneous Test See comment [facility] Comment on above: TEST RESULT LIMITS I ilana 46 ug/dL 27-159 ___ TESTING PERFORMED AT [facility]. ORIGINAL REPORT ON FILE IN LAB CONTAINS ADDITIONAL TEST SITE INFORMATION. Total Iron Binding Capacity 251 ug/dL 250-[address] [facility] Platelets bldOrdered By: Quentin Kellogg on 09-05-2022 Platelets (Bld) [#/Vol] 194 10*3/uL 150-[address] [facility] Serum or plasma folate measu rement (mass/volume)Ordered By: Quentin Kellogg on 09-05-2022 Folate [Mass/Vol] 12.40 ng/mL 3.1-55.4 [facility] Comment on above: Slight Hemolysis, Re sult may be falsely increased. Absolute lymphocyte countOrd ered By: Quentin Kellogg on 09-03-2022 Lymphocytes Auto (Unsp spec) [#/Vol] 1.68 10*3/uL 0.83-4.[address] [facility] Basophil percentageOrdered B y: Quentin Kellogg on 09-03-2022 Basophils/100 WBC (Bld) 0.4 % 0-1 [facility] Bilirubin [Mass/Vol] 0.30 mg/dL 0.20-1.00 [facility] Comment on above: For patients on eltr ombopag therapy, use of Dimension [place] TBIL is not recommended. Chloride [Moles/Vol] 114 mmol/L 98-107 [facility] Eosinophils/100 WBC (Bld) 3.9 % 0-[address] [facility] Glucose [Mass/Vol] 125 mg/dL 74-106 [facility] Comment on above: Fasting Glucose resu lt from 100 to 125 mg/dL suggests IMPAIRED HOMEOSTASIS per A.D.A. criteria. Neutrophils (Bld) [#/Vol] 2.5 10*3/uL 2.0-7.[address] [facility] Neutrophils/100 WBC (Bld) 50.1 % 47-[address] [facility] Potassium [Moles/Vol] 4.9 mmol/L 3.5-5.1 [facility] Protein [Mass/Vol] 7.1 g/dL 6.4-8.2 [facility] Sodium [Moles/Vol] 141 mmol/L 136-145 [facility] WBC (Bld) [#/Vol] 4.9 10*3/uL 4.4-11.0 [facility] Blood erythrocytes count (nu mber/volume)Ordered By: Quentin Kellogg on 09-03-2022 RBC (Bld) [#/Vol] 3.37 10*6/uL 4.2-5.4 [facility] Blood hemoglobin measurement (mass/volume)Ordered By: Quentin Kellogg on 09-03-2022 Hemoglobin (Bld) [Mass/Vol] 10.6 g/dL 12.0-15.[address] [facility] Blood lymphocytes/100 leukoc ytesOrdered By: Quentin Kellogg on 09-03-2022 Lymphocytes/100 WBC (Bld) 34.2 % 19-[address] [facility] Blood monocytes/100 leukocyt esOrdered By: Quentin Kellogg on 09-03-2022 Monocytes/100 WBC (Bld) 11.0 % 0-10 [facility] Blood platelet mean volumeOr dered By: Quentin Kellogg on 09-03-2022 Platelet mean volume (Bld) [Entitic vol] 10.1 fL 6.2-12.[address] [facility] Determination of erythrocyte mean corpuscular volume (MCV)Ordered By: Quentin Kellogg on 09-03-2022 MCV (RBC) [Entitic vol] 100.6 fL 81-99 [facility] Hematocrit Auto (Bld) [Volum e fraction]Ordered By: [facility] on 09-03-2022 Hematocrit (Bld) [Volume fraction] 33.9 % 37-[address] [facility] Laboratory - Chemistry and C hemistry - challengeOrdered By: [facility] 09-03-2022 ALP [Catalytic activity/Vol] 100 U/L 45-[address] [facility] ALT [Catalytic activity/Vol] 26 U/L 13-[address] [facility] CO2 [Moles/Vol] 22.0 mmol/L 21.0-32.[address] [facility] Globulin (S) [Mass/Vol] 3.7 g/dL 2.2-4.2 [facility] Urea nitrogen/Creatinine [Mass ratio] 22.2 mg/mg 10-[address] [facility] Laboratory - Hematology and Cell countsOrdered By: [facility] 09-03-2022 Erythrocyte distribution width (RBC) [Entitic vol] 46.7 fL 35.1-43.9 [facility] Erythrocyte distribution width (RBC) [Ratio] 12.6 % 11.6-14.[address] [facility] Immature granulocytes/100 WBC (Bld) 0.400 % 0.0-0.[address] [facility] Comment on above: IG% - Immature Granu locytes (promyelocytes, myelocytes and metamyelocytes) > 1% indicates that a LEFT SHIFT is Present. MCH (RBC) [Entitic mass] 31.5 pg 27.0-32.[address] [facility] Nucleated RBC/100 WBC (Bld) [Ratio] 0 % 0-5 [facility] Auto (RBC) [Mass/Vol]Or dered By: Quentin Kellogg on 09-03-2022 MCHC (RBC) [Mass/Vol] 31.3 g/dL 32-36 [facility] No Panel InformationOrdered By: Quentin Kellogg on 09-03-2022 Estimated GFR (MDRD) Amer 40 mL/min >[address] [facility] Comment on above: GFR Calc Estimated GFR (MDRD) Non-Af Amer 33 mL/min >[address] [facility] Comment on above: Non- GFR Calc Thyroid Stimulating Hormone (TSH) 2.46 uIU/mL 0.358-3.[address] [facility] Vitamin D 25-Hydroxy 54.2 ng/mL [facility] Comment on above: Vitamin D 25(OH) Sta tus Range Deficiency <20 ng/mL (50nmol/L) Insufficiency 20 - 30 ng/mL (50 - 75 nmol/L) Sufficiency 30 - 100 ng/mL (75 - 250 nmol/L) Toxicity >100 ng/mL (>250 nmol/L) Platelets bldOrdered By: Quentin Kellogg on 09-03-2022 Platelets (Bld) [#/Vol] 179 10*3/uL 150-[address] [facility] Serum or plasma albumin swetha urement (mass/volume)Ordered By: Quentin Kellogg 09-03-2022 Albumin [Mass/Vol] 3.4 g/dL 3.2-5.0 [facility] Serum or plasma albumin/glob ulin mass ratioOrdered By: Quentin Kellogg 09-03-2022 Albumin/Globulin [Mass ratio] 0.9 {ratio} 0.9-2.[address] [facility] Serum or plasma calcium swetha urement (mass/volume)Ordered By: Quentin Klelogg 09-03-2022 Calcium [Mass/Vol] 9.0 mg/dL 8.5-10.1 [facility] Serum or plasma creatinine m easurement (mass/volume)Ordered By: Quentin Kellogg 09-03-2022 Creatinine [Mass/Vol] 1.62 mg/dL 0.55-1.02 [facility] Comment on above: The validity of the calculated GFR & GFRAA in patients over 70 years has not been determined. Clinical correlation is essential. Serum or plasma urea nitroge n measurement (mass/volume)Ordered By: Quentin Kellogg on 09-03-2022 Urea nitrogen [Mass/Vol] 36 mg/dL 7-[address] [facility] Thin prep Papanicolaou smear with manual screeningOrdered By: Quentin Kellogg on 09-03-2022 Thin prep Papanicolaou smear with manual screening 25 U/L 15-[address] [facility] Thin prep Papanicolaou smear with manual screening 5 5-[address] [facility] Basophil percentageOrdered B y: Alma Olmos on 08-30-2022 Basophil percentage 3.9 mg/dL 2.5-4.9 [facility] Chloride [Moles/Vol] 110 mmol/L 98-107 [facility] Glucose [Mass/Vol] 110 mg/dL 74-106 [facility] Comment on above: Fasting Glucose resu lt from 100 to 125 mg/dL suggests IMPAIRED HOMEOSTASIS per A.D.A. criteria. Potassium [Moles/Vol] 4.8 mmol/L 3.5-5.1 [facility] Sodium [Moles/Vol] 143 mmol/L 136-145 [facility] Laboratory - Chemistry and C hemistry - challengeOrdered By: Alma Olmos on 08-30-2022 CO2 [Moles/Vol] 24.0 mmol/L 21.0-32.[address] [facility] Urea nitrogen/Creatinine [Mass ratio] 27.2 mg/mg 10-[address] [facility] No Panel InformationOrdered By: Alma Olmos on 08-30-2022 Estimated GFR (MDRD) Amer 38 mL/min >[address] [facility] Comment on above: GFR Calc Estimated GFR (MDRD) Non-Af Amer 32 mL/min >[address] [facility] Comment on above: Non- GFR Calc Serum or plasma albumin swetha urement (mass/volume)Ordered By: Alma Olmos on 08-30-2022 Albumin [Mass/Vol] 3.6 g/dL 3.2-5.0 [facility] Serum or plasma calcium swetha urement (mass/volume)Ordered By: Alma Olmos on 08-30-2022 Calcium [Mass/Vol] 9.4 mg/dL 8.5-10.1 [facility] Serum or plasma creatinine m easurement (mass/volume)Ordered By: Alma Olmos on 08-30-2022 Creatinine [Mass/Vol] 1.69 mg/dL 0.55-1.02 [facility] Comment on above: The validity of the calculated GFR & GFRAA in patients over 70 years has not been determined. Clinical correlation is essential. Serum or plasma urea nitroge n measurement (mass/volume)Ordered By: Alma Olmos on 08-30-2022 Urea nitrogen [Mass/Vol] 46 mg/dL 7-[address] [facility] Absolute lymphocyte countOrd ered By: Dr. Olmos on 06-04-2022 Lymphocytes Auto (Unsp spec) [#/Vol] 2.11 10*3/uL 0.83-4.[address] [facility] Basophil percentageOrdered B y: Dr. Olmos on 06-04-2022 Basophil percentage 4.5 mg/dL 2.5-4.9 [facility] Basophils/100 WBC (Bld) 0.3 % 0-1 [facility] Bilirubin [Mass/Vol] 0.30 mg/dL 0.20-1.00 [facility] Comment on above: For patients on eltr ombopag therapy, use of Dimension [place] TBIL is not recommended. Chloride [Moles/Vol] 108 mmol/L 98-107 [facility] Eosinophils/100 WBC (Bld) 4.6 % 0-[address] [facility] Glucose [Mass/Vol] 112 mg/dL 74-106 [facility] Comment on above: Fasting Glucose resu lt from 100 to 125 mg/dL suggests IMPAIRED HOMEOSTASIS per A.D.A. criteria. Neutrophils (Bld) [#/Vol] 3.3 10*3/uL 2.0-7.[address] [facility] Neutrophils/100 WBC (Bld) 50.5 % 47-[address] [facility] Potassium [Moles/Vol] 4.8 mmol/L 3.5-5.1 [facility] Protein [Mass/Vol] 7.1 g/dL 6.4-8.2 [facility] Sodium [Moles/Vol] 138 mmol/L 136-145 [facility] WBC (Bld) [#/Vol] 6.5 10*3/uL 4.4-11.0 [facility] Blood erythrocytes count (nu mber/volume)Ordered By: Dr. Olmos on 06-04-2022 RBC (Bld) [#/Vol] 3.64 10*6/uL 4.2-5.4 [facility] Blood hemoglobin measurement (mass/volume)Ordered By: Dr. Olmos on 06-04-2022 Hemoglobin (Bld) [Mass/Vol] 11.3 g/dL 12.0-15.[address] [facility] Blood lymphocytes/100 leukoc ytesOrdered By: Dr. Olmos on 06-04-2022 Lymphocytes/100 WBC (Bld) 32.7 % 19-[address] [facility] Blood monocytes/100 leukocyt esOrdered By: Dr. Olmos on 06-04-2022 Monocytes/100 WBC (Bld) 10.8 % 0-10 [facility] Blood platelet mean volumeOr dered By: Dr. Olmos on 06-04-2022 Platelet mean volume (Bld) [Entitic vol] 10.1 fL 6.2-12.[address] [facility] Determination of erythrocyte mean corpuscular volume (MCV)Ordered By: Dr. Olmos on 06-04-2022 MCV (RBC) [Entitic vol] 100.0 fL 81-99 [facility] Hematocrit Auto (Bld) [Volum e fraction]Ordered By: Dr. Olmos on 06-04-2022 Hematocrit (Bld) [Volume fraction] 36.4 % 37-[address] [facility] Laboratory - Chemistry and C hemistry - challengeOrdered By: Dr. Olmos on 06-04-2022 ALP [Catalytic activity/Vol] 114 U/L 45-[address] [facility] ALT [Catalytic activity/Vol] 37 U/L 13-[address] [facility] CO2 [Moles/Vol] 24.0 mmol/L 21.0-32.[address] [facility] Globulin (S) [Mass/Vol] 3.4 g/dL 2.2-4.2 [facility] Urea nitrogen/Creatinine [Mass ratio] 27.8 mg/mg 10-[address] [facility] Laboratory - Hematology and Cell countsOrdered By: Dr. Olmos on 06-04-2022 Erythrocyte distribution width (RBC) [Entitic vol] 48.6 fL 35.1-43.9 [facility] Erythrocyte distribution width (RBC) [Ratio] 13.2 % 11.6-14.[address] [facility] Immature granulocytes/100 WBC (Bld) 1.100 % 0.0-0.[address] [facility] Comment on above: IG% - Immature Granu locytes (promyelocytes, myelocytes and metamyelocytes) > 1% indicates that a LEFT SHIFT is Present. MCH (RBC) [Entitic mass] 31.0 pg 27.0-32.[address] [facility] Nucleated RBC/100 WBC (Bld) [Ratio] 0 % 0-[address] [facility] MCHC Auto (RBC) [Mass/Vol]Or dered By: Dr. Olmos on 06-04-2022 MCHC (RBC) [Mass/Vol] 31.0 g/dL 32-36 [facility] No Panel InformationOrdered By: Dr. Olmos on 06-04-2022 Estimated GFR (MDRD) Amer 51 mL/min >[address] [facility] Comment on above: GFR Calc Estimated GFR (MDRD) Non-Af Amer 42 mL/min >[address] [facility] Comment on above: Non- GFR Calc Parathyroid Hormone (Intact) 54.4 pg/mL 18.4-80.[address] [facility] Thyroid Stimulating Hormone (TSH) 2.19 uIU/mL 0.358-3.[address] [facility] Vitamin D 25-Hydroxy 42.3 ng/mL [facility] Comment on above: Vitamin D 25(OH) Sta tus Range Deficiency <20 ng/mL (50nmol/L) Insufficiency 20 - 30 ng/mL (50 - 75 nmol/L) Sufficiency 30 - 100 ng/mL (75 - 250 nmol/L) Toxicity >100 ng/mL (>250 nmol/L) Platelets bldOrdered By: Dr. Olmos on 06-04-2022 Platelets (Bld) [#/Vol] 227 10*3/uL 150-[address] [facility] Serum or plasma albumin swetha urement (mass/volume)Ordered By: Dr. Olmos on 06-04-2022 Albumin [Mass/Vol] 3.7 g/dL 3.2-5.0 [facility] Serum or plasma albumin/glob ulin mass ratioOrdered By: Dr. Olmos on 06-04-2022 Albumin/Globulin [Mass ratio] 1.1 {ratio} 0.9-2.[address] [facility] Serum or plasma calcium swetha urement (mass/volume)Ordered By: Dr. Olmos on 06-04-2022 Calcium [Mass/Vol] 9.2 mg/dL 8.5-10.1 [facility] Serum or plasma creatinine m easurement (mass/volume)Ordered By: Dr. Olmos on 06-04-2022 Creatinine [Mass/Vol] 1.33 mg/dL 0.55-1.02 [facility] Comment on above: The validity of the calculated GFR & GFRAA in patients over 70 years has not been determined. Clinical correlation is essential. Serum or plasma urea nitroge n measurement (mass/volume)Ordered By: Dr. Olmos on 06-04-2022 Urea nitrogen [Mass/Vol] 37 mg/dL 7-[address] [facility] Thin prep Papanicolaou smear with manual screeningOrdered By: Dr. Olmos on 06-04-2022 Thin prep Papanicolaou smear with manual screening 26 U/L 15-[address] [facility] Thin prep Papanicolaou smear with manual screening 6 5-[address] [facility] Urine creatinine measurement (mass/volume)Ordered By: Dr. Olmos on 06-04-2022 Creatinine (U) [Mass/Vol] 67.70 mg/dL NO RANGE EST. [facility] Urine protein measurement (m ass/volume)Ordered By: Dr. Olmos on 06-04-2022 Protein (U) [Mass/Vol] 13.4 mg/dL 0.0-11.8 [facility] Urine protein/creatinine mas s ratioOrdered By: Dr. Olmos on 06-04-2022 Protein/Creatinine (U) [Mass ratio] 198 mg/g CRE 0-[address] [facility] Basophil percentageOrdered B y: Dr. Olmos on 03-01-2022 Basophil percentage 4.3 mg/dL 2.5-4.9 [facility] Chloride [Moles/Vol] 109 mmol/L 98-107 [facility] Glucose [Mass/Vol] 204 mg/dL 74-106 [facility] Comment on above: Glucose result great er than or equal to 200 mg/dLsuggests DIABETES MELLITUS per A.D.A. criteria. Potassium [Moles/Vol] 4.7 mmol/L 3.5-5.1 [facility] Sodium [Moles/Vol] 140 mmol/L 136-145 [facility] WBC (Bld) [#/Vol] 7.1 10*3/uL 4.4-11.0 [facility] Blood erythrocytes count (nu mber/volume)Ordered By: Dr. Olmos on 03-01-2022 RBC (Bld) [#/Vol] 4.14 10*6/uL 4.2-5.4 [facility] Blood hemoglobin measurement (mass/volume)Ordered By: Dr. Olmos on 03-01-2022 Hemoglobin (Bld) [Mass/Vol] 12.7 g/dL 12.0-15.[address] [facility] Blood platelet mean volumeOr dered By: Dr. Olmos on 03-01-2022 Platelet mean volume (Bld) [Entitic vol] 9.8 fL 6.2-12.[address] [facility] Determination of erythrocyte mean corpuscular volume (MCV)Ordered By: Dr. Olmos on 03-01-2022 MCV (RBC) [Entitic vol] 98.6 fL 81-99 [facility] Hematocrit Auto (Bld) [Volum e fraction]Ordered By: Dr. Olmos on 03-01-2022 Hematocrit (Bld) [Volume fraction] 40.8 % 37-[address] [facility] Laboratory - Chemistry and C hemistry - challengeOrdered By: Dr. Olmos on 03-01-2022 CO2 [Moles/Vol] 22.0 mmol/L 21.0-32.[address] [facility] Urea nitrogen/Creatinine [Mass ratio] 18.8 mg/mg 10-[address] [facility] Laboratory - Hematology and Cell countsOrdered By: Dr. Olmos on 03-01-2022 Erythrocyte distribution width (RBC) [Entitic vol] 44.3 fL 35.1-43.9 [facility] Erythrocyte distribution width (RBC) [Ratio] 12.3 % 11.6-14.[address] [facility] MCH (RBC) [Entitic mass] 30.7 pg 27.0-32.[address] [facility] MCHC Auto (RBC) [Mass/Vol]Or dered By: Dr. Olmos on 01-12-2023 MCHC (RBC) [Mass/Vol] 31.1 g/dL 32-36 [facility] No Panel InformationOrdered By: Dr. Olmos on 03-01-2022 Estimated GFR (MDRD) Amer 37 mL/min >[address] [facility] Comment on above: GFR Calc Estimated GFR (MDRD) Non-Af Amer 30 mL/min >[address] [facility] Comment on above: Non- GFR Calc Parathyroid Hormone (Intact) 36.9 pg/mL 18.4-80.[address] [facility] Platelets bldOrdered By: Dr. Olmos on 03-01-2022 Platelets (Bld) [#/Vol] 245 10*3/uL 150-[address] [facility] Serum or plasma albumin swetha urement (mass/volume)Ordered By: Dr. Olmos on 03-01-2022 Albumin [Mass/Vol] 3.9 g/dL 3.2-5.0 [facility] Serum or plasma calcium swetha urement (mass/volume)Ordered By: Dr. Olmos on 03-01-2022 Calcium [Mass/Vol] 10.0 mg/dL 8.5-10.1 [facility] Serum or plasma creatinine m easurement (mass/volume)Ordered By: Dr. Olmos on 03-01-2022 Creatinine [Mass/Vol] 1.76 mg/dL 0.55-1.02 [facility] Comment on above: The validity of the calculated GFR & GFRAA in patients over 70 years has not been determined. Clinical correlation is essential. Serum or plasma urea nitroge n measurement (mass/volume)Ordered By: Dr. Olmos on 03-01-2022 Urea nitrogen [Mass/Vol] 33 mg/dL 7-[address] [facility] Urine creatinine measurement (mass/volume)Ordered By: Dr. Olmos on 03-01-2022 Creatinine (U) [Mass/Vol] 84.80 mg/dL NO RANGE EST. [facility] Urine protein measurement (m ass/volume)Ordered By: Dr. Olmos on 03-01-2022 Protein (U) [Mass/Vol] 28.0 mg/dL 0.0-11.8 [facility] Urine protein/creatinine mas s ratioOrdered By: Dr. Olmos on 03-01-2022 Protein/Creatinine (U) [Mass ratio] 330 mg/g CRE 0-[address] [facility] Absolute lymphocyte countOrd ered By: Dr. Kellogg on 12-13-2021 Lymphocytes Auto (Unsp spec) [#/Vol] 2.13 10*3/uL 0.83-4.[address] [facility] Basophil percentageOrdered B y: Dr. Kellogg on 12-13-2021 Basophils/100 WBC (Bld) 0.4 % 0-1 [facility] Bilirubin [Mass/Vol] 0.40 mg/dL 0.20-1.00 [facility] Comment on above: For patients on eltr ombopag therapy, use of Dimension [place] TBIL is not recommended. Chloride [Moles/Vol] 111 mmol/L 98-107 [facility] Eosinophils/100 WBC (Bld) 4.0 % 0-[address] [facility] Glucose [Mass/Vol] 164 mg/dL 74-106 [facility] Comment on above: Fasting Glucose resu lt greater than or equal to 126 mg/dL suggests DIABETES MELLITUS per A.D.A. criteria. Neutrophils (Bld) [#/Vol] 1.8 10*3/uL 2.0-7.[address] [facility] Neutrophils/100 WBC (Bld) 39.8 % 47-[address] [facility] Potassium [Moles/Vol] 4.7 mmol/L 3.5-5.1 [facility] Protein [Mass/Vol] 7.2 g/dL 6.4-8.2 [facility] Sodium [Moles/Vol] 142 mmol/L 136-145 [facility] WBC (Bld) [#/Vol] 4.6 10*3/uL 4.4-11.0 [facility] Blood erythrocytes count (nu mber/volume)Ordered By: Dr. Kellogg on 12-13-2021 RBC (Bld) [#/Vol] 3.73 10*6/uL 4.2-5.4 [facility] Blood hemoglobin measurement (mass/volume)Ordered By: Dr. Kellogg on 12-13-2021 Hemoglobin (Bld) [Mass/Vol] 11.9 g/dL 12.0-15.[address] [facility] Blood lymphocytes/100 leukoc ytesOrdered By: Dr. Kellogg on 12-13-2021 Lymphocytes/100 WBC (Bld) 46.8 % 19-[address] [facility] Blood monocytes/100 leukocyt esOrdered By: Dr. Kellogg on 12-13-2021 Monocytes/100 WBC (Bld) 8.6 % 0-10 [facility] Blood platelet mean volumeOr dered By: Dr. Kellogg on 12-13-2021 Platelet mean volume (Bld) [Entitic vol] 9.9 fL 6.2-12.[address] [facility] Determination of erythrocyte mean corpuscular volume (MCV)Ordered By: Dr. Kellogg on 12-13-2021 MCV (RBC) [Entitic vol] 100.0 fL 81-99 [facility] Hematocrit Auto (Bld) [Volum e fraction]Ordered By: Dr. Kellogg on 12-13-2021 Hematocrit (Bld) [Volume fraction] 37.3 % 37-[address] [facility] Laboratory - Chemistry and C hemistry - challengeOrdered By: Dr. Kellogg on 12-13-2021 ALP [Catalytic activity/Vol] 120 U/L 45-[address] [facility] ALT [Catalytic activity/Vol] 25 U/L 13-[address] [facility] CO2 [Moles/Vol] 25.0 mmol/L 21.0-32.[address] [facility] Globulin (S) [Mass/Vol] 3.8 g/dL 2.2-4.2 [facility] Urea nitrogen/Creatinine [Mass ratio] 26.0 mg/mg 10-[address] [facility] Laboratory - Hematology and Cell countsOrdered By: Dr. Kellogg on 12-13-2021 Erythrocyte distribution width (RBC) [Entitic vol] 47.1 fL 35.1-43.9 [facility] Erythrocyte distribution width (RBC) [Ratio] 13.0 % 11.6-14.[address] [facility] Immature granulocytes/100 WBC (Bld) 0.400 % 0.0-0.[address] [facility] Comment on above: IG% - Immature Granu locytes (promyelocytes, myelocytes and metamyelocytes) > 1% indicates that a LEFT SHIFT is Present. MCH (RBC) [Entitic mass] 31.9 pg 27.0-32.[address] [facility] Nucleated RBC/100 WBC (Bld) [Ratio] 0 % 0-5 [facility] Auto (RBC) [Mass/Vol]Or dered By: Dr. Kellogg on 12-13-2021 MCHC (RBC) [Mass/Vol] 31.9 g/dL 32-36 [facility] No Panel InformationOrdered By: Dr. Kellogg on 12-13-2021 Estimated GFR (MDRD) Amer 55 mL/min >[address] [facility] Comment on above: GFR Calc Estimated GFR (MDRD) Non-Af Amer 46 mL/min >[address] [facility] Comment on above: Non- GFR Calc Thyroid Stimulating Hormone (TSH) 1.46 uIU/mL 0.358-3.[address] [facility] Vitamin D 25-Hydroxy 43.1 ng/mL [facility] Comment on above: Vitamin D 25(OH) Sta tus Range Deficiency <20 ng/mL (50nmol/L) Insufficiency 20 - 30 ng/mL (50 - 75 nmol/L) Sufficiency 30 - 100 ng/mL (75 - 250 nmol/L) Toxicity >100 ng/mL (>250 nmol/L) Platelets bldOrdered By: Dr. Kellogg on 12-13-2021 Platelets (Bld) [#/Vol] 167 10*3/uL 150-[address] [facility] Serum or plasma albumin swetha urement (mass/volume)Ordered By: Dr. Kellogg on 12-13-2021 Albumin [Mass/Vol] 3.4 g/dL 3.2-5.0 [facility] Serum or plasma albumin/glob ulin mass ratioOrdered By: Dr. Kellogg on 12-13-2021 Albumin/Globulin [Mass ratio] 0.9 {ratio} 0.9-2.[address] [facility] Serum or plasma calcium swetha urement (mass/volume)Ordered By: Dr. Kellogg on 12-13-2021 Calcium [Mass/Vol] 9.6 mg/dL 8.5-10.1 [facility] Serum or plasma creatinine m easurement (mass/volume)Ordered By: Dr. Kellogg on 12-13-2021 Creatinine [Mass/Vol] 1.23 mg/dL 0.55-1.02 [facility] Comment on above: The validity of the calculated GFR & GFRAA in patients over 70 years has not been determined. Clinical correlation is essential. Serum or plasma urea nitroge n measurement (mass/volume)Ordered By: Dr. Kellogg on 12-13-2021 Urea nitrogen [Mass/Vol] 32 mg/dL 7-[address] [facility] Thin prep Papanicolaou smear with manual screeningOrdered By: Dr. Kellogg on 12-13-2021 Thin prep Papanicolaou smear with manual screening 14 U/L 15-[address] [facility] Thin prep Papanicolaou smear with manual screening 6 5-[address] [facility] Laboratory - Microbiology an d Antimicrobial susceptibilityOrdered By: Dr. Kellogg on 11-22-2021 SARS-CoV-2 (COVID-19) RNA ISIS+probe Ql (Unsp spec) Not detected Not Detect [facility] Comment on above: Normal Reference Ran ge: Not DetectedMethod:(RT-PCR) real-time reverse transcriptase PCRLuminex [employer]fr[employer] Technologies Instrument*The Food and Drug Administration (FDA) has issued an Emergency Use Authorization (EAU) for the [employer] SARS-CoV-2 Assay for the rapid detection of the virus that causes COVID-19. This test has been validated, but the FDAs independent review of this validation is pending.*Negative results do not preclude infection and should not be used as the sole basis for treatment or patient management. Optimum specimen types and timing for peak viral levels during infections caused by SARS-CoV-2 have not been determined. Collection of multiple specimens from the same patient may be necessary to detect the virus. The possibility of a false negative result should be considered if the patient has clinical presentation or has had recent exposure. No Panel InformationOrdered By: Dr. Kellogg on 11-22-2021 Influenza Types A,B Direct FA (GILBERT) [facility] RSV Ag EIAOrdered By: Dr. Baljinder browning on 11-22-2021 RSV Ag Immune stain Ql (Tiss) [facility] Absolute lymphocyte counton 09-14-2021 Lymphocytes Auto (Unsp spec) [#/Vol] 2.08 10*3/uL 0.83-4.[address] [facility] Work Phone: Basophil percentageon 2021 Basophils/100 WBC (Bld) 0.6 % 0-1 [facility] Work Phone: Bilirubin [Mass/Vol] 0.30 mg/dL 0.20-1.00 [facility] Work Phone: [phone] Comment on above: For patients on eltr ombopag therapy, use of Dimension [place] TBIL is not recommended. Chloride [Moles/Vol] 106 mmol/L 98-107 [facility] Work Phone: [phone] Eosinophils/100 WBC (Bld) 2.1 % 0-[address] [facility] Work Phone: Glucose [Mass/Vol] 157 mg/dL 74-106 [facility] Work Phone: Comment on above: Fasting Glucose resu lt greater than or equal to 126 mg/dL suggests DIABETES MELLITUS per A.D.A. criteria. Neutrophils (Bld) [#/Vol] 2.6 10*3/uL 2.0-7.[address] [facility] Work Phone: Neutrophils/100 WBC (Bld) 47.7 % 47-[address] [facility] Work Phone: [phone] Potassium [Moles/Vol] 4.7 mmol/L 3.5-5.1 [facility] Work Phone: Protein [Mass/Vol] 7.6 g/dL 6.4-8.2 [facility] Work Phone: Sodium [Moles/Vol] 137 mmol/L 136-145 [facility] Work Phone: WBC (Bld) [#/Vol] 5.4 10*3/uL 4.4-11.0 [facility] Work Phone: Blood erythrocytes count (nu mber/volume)on 09-14-2021 RBC (Bld) [#/Vol] 3.75 10*6/uL 4.2-5.4 [facility] Work Phone: Blood hemoglobin measurement (mass/volume)on 09-14-2021 Hemoglobin (Bld) [Mass/Vol] 11.8 g/dL 12.0-15.[address] [facility] Work Phone: Blood lymphocytes/100 leukoc yteson 09-14-2021 Lymphocytes/100 WBC (Bld) 38.8 % 19-[address] [facility] Work Phone: Blood monocytes/100 leukocyt eson 09-14-2021 Monocytes/100 WBC (Bld) 9.9 % 0-10 [facility] Work Phone: Blood platelet mean volumeon 09-14-2021 Platelet mean volume (Bld) [Entitic vol] 9.4 fL 6.2-12.[address] [facility] Work Phone: Determination of erythrocyte mean corpuscular volume (MCV)on 09-14-2021 MCV (RBC) [Entitic vol] 97.1 fL 81-99 [facility] Work Phone: Hematocrit Auto (Bld) [Volum e fraction]on 09-14-2021 Hematocrit (Bld) [Volume fraction] 36.4 % 37-[address] [facility] Work Phone: Laboratory - Chemistry and C hemistry - challengeon 09-14-2021 ALP [Catalytic activity/Vol] 97 U/L 45-[address] [facility] Work Phone: ALT [Catalytic activity/Vol] 33 U/L 13-[address] [facility] Work Phone: CO2 [Moles/Vol] 24.0 mmol/L 21.0-32.[address] [facility] Work Phone: Globulin (S) [Mass/Vol] 3.9 g/dL 2.2-4.2 [facility] Work Phone: Urea nitrogen/Creatinine [Mass ratio] 21.0 mg/mg 10-[address] [facility] Work Phone: Laboratory - Hematology and Cell countson 09-14-2021 Erythrocyte distribution width (RBC) [Entitic vol] 48.0 fL 35.1-43.9 [facility]: Erythrocyte distribution width (RBC) [Ratio] 13.3 % 11.6-14.[address] [facility] Work Phone: Immature granulocytes/100 WBC (Bld) 0.900 % 0.0-0.[address] [facility] Work Phone: Comment on above: IG% - Immature Granu locytes (promyelocytes, myelocytes and metamyelocytes) > 1% indicates that a LEFT SHIFT is Present. MCH (RBC) [Entitic mass] 31.5 pg 27.0-32.[address] [facility] Work Phone: Nucleated RBC/100 WBC (Bld) [Ratio] 0 % 0-[address] [facility] Work Phone: MCHC Auto (RBC) [Mass/Vol]on 09-14-2021 MCHC (RBC) [Mass/Vol] 32.4 g/dL 32-36 [facility] Work Phone: No Panel Informationon 09-14 Estimated GFR (MDRD) Amer 47 mL/min >[address] [facility] Work Phone: Comment on above: GFR Calc Estimated GFR (MDRD) Non-Af Amer 39 mL/min >[address] [facility] Work Phone: Comment on above: Non- GFR Calc Thyroid Stimulating Hormone (TSH) 2.28 uIU/mL 0.358-3.[address] [facility] Work Phone: Vitamin D 25-Hydroxy 64.8 ng/mL [facility] Work Phone: Comment on above: Vitamin D 25(OH) Sta tus Range Deficiency <20 ng/mL (50nmol/L) Insufficiency 20 - 30 ng/mL (50 - 75 nmol/L) Sufficiency 30 - 100 ng/mL (75 - 250 nmol/L) Toxicity >100 ng/mL (>250 nmol/L) Platelets bldon 09-14-2021 Platelets (Bld) [#/Vol] 216 10*3/uL 150-[address] [facility] Work Phone: Serum or plasma albumin swetha urement (mass/volume)on 09-14-2021 Albumin [Mass/Vol] 3.7 g/dL 3.2-5.0 [facility] Work Phone: Serum or plasma albumin/glob ulin mass ratioon 09-14-2021 Albumin/Globulin [Mass ratio] 0.9 {ratio} 0.9-2.[address] [facility] Work Phone: Serum or plasma calcium swetha urement (mass/volume)on 09-14-2021 Calcium [Mass/Vol] 9.8 mg/dL 8.5-10.1 [facility] Work Phone: Serum or plasma creatinine m easurement (mass/volume)on 09-14-2021 Creatinine [Mass/Vol] 1.43 mg/dL 0.55-1.02 [facility] Work Phone: Comment on above: The validity of the calculated GFR & GFRAA in patients over 70 years has not been determined. Clinical correlation is essential. Serum or plasma urea nitroge n measurement (mass/volume)on 09-14-2021 Urea nitrogen [Mass/Vol] 30 mg/dL 7-[address] [facility] Work Phone: Thin prep Papanicolaou smear with manual screeningon 09-14-2021 Thin prep Papanicolaou smear with manual screening 21 U/L 15-[address] [facility] Work Phone: Thin prep Papanicolaou smear with manual screening 7 5-[address] [facility] Work Phone: XR LUMBAR LIMITED 2V AP/LATo n 06-28-2021 [facility] Absolute lymphocyte counton 06-01-2021 Lymphocytes Auto (Unsp spec) [#/Vol] 1.85 10*3/uL 0.83-4.[address] [facility] Work Phone: Basophil percentageon 2021 Basophils/100 WBC (Bld) 0.4 % 0-1 [facility] Work Phone: Bilirubin [Mass/Vol] 0.40 mg/dL 0.20-1.00 [facility] Work Phone: Comment on above: For patients on eltr ombopag therapy, use of Dimension [place] TBIL is not recommended. Chloride [Moles/Vol] 109 mmol/L 98-107 [facility] Work Phone: Eosinophils/100 WBC (Bld) 3.6 % 0-[address] [facility] Work Phone: Glucose [Mass/Vol] 141 mg/dL 74-106 [facility] Work Phone: Comment on above: Fasting Glucose resu lt greater than or equal to 126 mg/dL suggests DIABETES MELLITUS per A.D.A. criteria. Neutrophils (Bld) [#/Vol] 2.6 10*3/uL 2.0-7.[address] [facility] Work Phone: Neutrophils/100 WBC (Bld) 49.5 % 47-[address] [facility] Work Phone: Potassium [Moles/Vol] 5.0 mmol/L 3.5-5.1 [facility] Work Phone: Protein [Mass/Vol] 8.0 g/dL 6.4-8.2 [facility] Work Phone: Sodium [Moles/Vol] 137 mmol/L 136-145 [facility] Work Phone: WBC (Bld) [#/Vol] 5.3 10*3/uL 4.4-11.0 [facility] Work Phone: Blood erythrocytes count (nu mber/volume)on 06-01-2021 RBC (Bld) [#/Vol] 3.60 10*6/uL 4.2-5.4 [facility] Work Phone: Blood hemoglobin measurement (mass/volume)on 06-01-2021 Hemoglobin (Bld) [Mass/Vol] 11.0 g/dL 12.0-15.[address] [facility] Work Phone: [phone] Blood lymphocytes/100 leukoc yteson 06-01-2021 Lymphocytes/100 WBC (Bld) 35.2 % 19-[address] [facility] Work Phone: Blood monocytes/100 leukocyt eson 06-01-2021 Monocytes/100 WBC (Bld) 10.9 % 0-10 [facility] Work Phone: Blood platelet mean volumeon 06-01-2021 Platelet mean volume (Bld) [Entitic vol] 9.3 fL 6.2-12.[address] [facility] Work Phone: Determination of erythrocyte mean corpuscular volume (MCV)on 06-01-2021 MCV (RBC) [Entitic vol] 94.2 fL 81-99 [facility] Work Phone: Hematocrit Auto (Bld) [Volum e fraction]on 06-01-2021 Hematocrit (Bld) [Volume fraction] 33.9 % 37-[address] [facility] Work Phone: Laboratory - Chemistry and C hemistry - challengeon 06-01-2021 ALP [Catalytic activity/Vol] 98 U/L 45-[address] [facility] Work Phone: ALT [Catalytic activity/Vol] 27 U/L 13-[address] [facility] Work Phone: CO2 [Moles/Vol] 26.0 mmol/L 21.0-32.[address] [facility] Work Phone: Globulin (S) [Mass/Vol] 4.5 g/dL 2.2-4.2 [facility] Work Phone: Urea nitrogen/Creatinine [Mass ratio] 28.0 mg/mg 10-[address] [facility] Work Phone: Laboratory - Hematology and Cell countson 06-01-2021 Erythrocyte distribution width (RBC) [Entitic vol] 44.4 fL 35.1-43.9 [facility] Work Phone: Erythrocyte distribution width (RBC) [Ratio] 12.9 % 11.6-14.[address] [facility] Work Phone: Immature granulocytes/100 WBC (Bld) 0.400 % 0.0-0.[address] [facility] Work Phone: Comment on above: IG% - Immature Granu locytes (promyelocytes, myelocytes and metamyelocytes) > 1% indicates that a LEFT SHIFT is Present. MCH (RBC) [Entitic mass] 30.6 pg 27.0-32.[address] [facility] Work Phone: Nucleated RBC/100 WBC (Bld) [Ratio] 0 % 0-[address] [facility] Work Phone: MCHC Auto (RBC) [Mass/Vol]on 06-01-2021 MCHC (RBC) [Mass/Vol] 32.4 g/dL 32-36 [facility] Work Phone: No Panel Informationon 06-01 Estimated GFR (MDRD) Amer 47 mL/min >[address] [facility] Work Phone: Comment on above: GFR Calc Estimated GFR (MDRD) Non-Af Amer 39 mL/min >[address] [facility] Work Phone: Comment on above: Non- GFR Calc Thyroid Stimulating Hormone (TSH) 0.85 uIU/mL 0.358-3.[address] [facility] Work Phone: Vitamin D 25-Hydroxy 60.8 ng/mL [facility] Work Phone: Comment on above: Vitamin D 25(OH) Sta tus Range Deficiency <20 ng/mL (50nmol/L) Insufficiency 20 - 30 ng/mL (50 - 75 nmol/L) Sufficiency 30 - 100 ng/mL (75 - 250 nmol/L) Toxicity >100 ng/mL (>250 nmol/L) Platelets bldon 06-01-2021 Platelets (Bld) [#/Vol] 243 10*3/uL 150-[address] [facility] Work Phone: Serum or plasma albumin swetha urement (mass/volume)on 06-01-2021 Albumin [Mass/Vol] 3.5 g/dL 3.2-5.0 [facility] Work Phone: Serum or plasma albumin/glob ulin mass ratioon 06-01-2021 Albumin/Globulin [Mass ratio] 0.8 {ratio} 0.9-2.[address] [facility] Work Phone: Serum or plasma calcium swetha urement (mass/volume)on 06-01-2021 Calcium [Mass/Vol] 9.6 mg/dL 8.5-10.1 [facility] Work Phone: Serum or plasma creatinine m easurement (mass/volume)on 06-01-2021 Creatinine [Mass/Vol] 1.43 mg/dL 0.55-1.02 [facility] Work Phone: Comment on above: The validity of the calculated GFR & GFRAA in patients over 70 years has not been determined. Clinical correlation is essential. Serum or plasma urea nitroge n measurement (mass/volume)on 06-01-2021 Urea nitrogen [Mass/Vol] 40 mg/dL 7-[address] [facility] Work Phone: Thin prep Papanicolaou smear with manual screeningon 06-01-2021 Thin prep Papanicolaou smear with manual screening 18 U/L 15-[address] [facility] Work Phone: Thin prep Papanicolaou smear with manual screening 2 5-[address] [facility] Work Phone: XR CHEST 2V FRONTAL/LATon [facility] XR Chest PA and Lateralon IMPRESSION: Mild opacity is at the right greater than left lung bases, though improved on the right when compared with prior study. Findings may be reflective of evolving/resolving pneumonia and/or atelectasis. [employer] Machine [employer]arns: PSCB Transcribe Date/Time: May 31 2021 8:46A Dictated by : MATTIE LINDSAY MD This examination was interpreted and the report reviewed and electronically signed by: MATTIE LINDSAY MD on May 31 2021 8:48AM EST JOE_DO_NOT_ USE_DIVISIO N OF RADIOLOGY * * *Final Report* * * DATE OF EXAM: May 31 2021 8:45AM WOX 5291 - XR CHEST 2V FRONTAL/LAT / PROCEDURE REASON: Cough * * * * Physician Interpretation * * * * EXAMINATION: CHEST RADIOGRAPH (2 VIEW FRONTAL & LATERAL) CLINICAL HISTORY: Cough MQ: XC2_6 EXAM DATE/TIME: 05/31/2021 8:45 AM COMPARISON: Chest x-ray dated May 09, 2021 RESULT: Lines, tubes, and devices: None. Lungs and pleura: Mild opacities at the right greater than left lung bases, though improved on the right when compared with prior study. No discernible pleural effusion or pneumothorax. Cardiomediastinal silhouette: Stable cardiomediastinal silhouette. Moderate hiatal hernia. Bones and soft tissues: Degenerative changes in the spine. ZZZ_DO_NOT_ USE_DIVISIO N OF RADIOLOGY Provider, [facility] - 05/31/2021 * * *Final Report* * * DATE OF EXAM: May 31 2021 8:45AM WOX 5291 - XR CHEST 2V FRONTAL/LAT / PROCEDURE REASON: Cough * * * * Physician Interpretation * * * * EXAMINATION: CHEST RADIOGRAPH (2 VIEW FRONTAL & LATERAL) CLINICAL HISTORY: Cough MQ: XC2_6 EXAM DATE/TIME: 05/31/2021 8:45 AM COMPARISON: Chest x-ray dated May 09, 2021 RESULT: Lines, tubes, and devices: None. Lungs [...] be reflective of evolving/resolving pneumonia and/or atelectasis. 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 Radiology Study observation (narrative) Nitesh manuel [facility] XR Chest PA and LateralOrder ed By: Ccf Provider on 05-31-2021 [facility] PT panel Coag (PPP)on 2021 INR Coag (Bld) [Relative time] 2.8 {INR} [facility] Basophil percentageon 2021 Basophil percentage 3.5 mg/dL 2.5-4.9 [facility]: Chloride [Moles/Vol] 110 mmol/L 98-107 [facility] Work Phone: Glucose [Mass/Vol] 126 mg/dL 74-106 [facility] Work Phone: Comment on above: Fasting Glucose resu lt greater than or equal to 126 mg/dL suggests DIABETES MELLITUS per A.D.A. criteria. Potassium [Moles/Vol] 5.0 mmol/L 3.5-5.1 [facility] Work Phone: Sodium [Moles/Vol] 137 mmol/L 136-145 [facility] Work Phone: WBC (Bld) [#/Vol] 6.6 10*3/uL 4.4-11.0 [facility] Work Phone: Blood erythrocytes count (nu mber/volume)on 05-25-2021 RBC (Bld) [#/Vol] 3.29 10*6/uL 4.2-5.4 [facility] Work Phone: Blood hemoglobin measurement (mass/volume)on 05-25-2021 Hemoglobin (Bld) [Mass/Vol] 10.1 g/dL 12.0-15.[address] [facility] Work Phone: Blood platelet mean volumeon 05-25-2021 Platelet mean volume (Bld) [Entitic vol] 8.5 fL 6.2-12.[address] [facility] Work Phone: Determination of erythrocyte mean corpuscular volume (MCV)on 05-25-2021 MCV (RBC) [Entitic vol] 95.4 fL 81-99 [facility] Work Phone: Hematocrit Auto (Bld) [Volum e fraction]on 05-25-2021 Hematocrit (Bld) [Volume fraction] 31.4 % 37-[address] [facility] Work Phone: INR in Blood by Coagulation assayon 05-25-2021 INR Coag (Bld) [Relative time] 2.8 {INR} [facility] Work Phone: Laboratory - Chemistry and C hemistry - challengeon 05-25-2021 CO2 [Moles/Vol] 23.0 mmol/L 21.0-32.[address] [facility] Work Phone: Urea nitrogen/Creatinine [Mass ratio]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 End: 05-09-2023 Patient encounter status Argelia Thomson MD Work Phone: [facility] Start: 05-08-2023 End: 05-08-[address] Quentin Kellogg Work Phone: [facility] Work Phone: Start: 05-08-2023 End: 05-08-[address] Quentin Kellogg Work Phone: [facility] Office 3rd Flr Start: 05-06-2023 End: 05-06-[address] Quentin Kellogg Work Phone: [facility] Work Phone: Start: 05-06-2023 End: 05-06-[address] Quentin Kellogg Work Phone: [facility] Work Phone: Start: 04-23-2023 End: 04-23-[address] Quentin Kellogg Work Phone: [facility] Work Phone: Start: 04-23-2023 End: 04-23-[address] Quentin Kellogg Work Phone: [facility]-Radiology, [facility] Work Phone: Start: 03-25-2023 End: 03-25-[address] Quentin Kellogg Work Phone: [facility] Work Phone: Start: 03-07-2023 End: 03-07-[address] [facility] Work Phone: Start: 03-07-2023 End: 03-07-2023 [facility] Start: 12-04-2022 End: 12-04-[address] [facility] Work Phone: Start: 12-04-2022 End: 12-04-2022 [facility] Start: 10-26-2022 End: 10-26-2022 Subsequent hospital visit by physician Screen Mammo [facility] Wstr Mammogram Start: 09-19-2022 End: 09-19-[address] Quentin Kellogg Work Phone: [facility] Work Phone: Start: 09-19-2022 End: 09-19-[address] Qu[facility] Kellogg [facility] Start: 09-11-2022 End: 09-11-[address] Quentin Kellogg Work Phone: [facility] Work Phone: Start: 09-11-2022 End: 09-11-[address] Quentin Kellogg Work Phone: [facility]-Radiology, [facility] Work Phone: Start: 09-07-2022 End: 09-07-2022 Emergency department patient visit Dr. Quentin Kellogg Work Phone: [facility]-Emergency Department Work Phone: Start: 09-06-2022 End: 09-06-[address] Quentin Kellogg Work Phone: [facility] Work Phone: Start: 09-06-2022 End: 09-06-[address] Quentin Kellogg [facility] Work [facility]: Start: 09-05-2022 End: 09-05-[address] Quentin Kellogg Work Phone: [facility], y Office 3rd Flr Start: 09-03-2022 End: 09-03-[address] Quentin Kellogg Work Phone: [facility] Work Phone: Start: 09-03-2022 End: 09-03-[address] Quentin Kellogg Work Phone: [facility], y Office 3rd Flr Start: 08-30-2022 End: 08-30-[address] Quentin Kellogg Work Phone: [facility] Work Phone: Start: 08-30-2022 End: 08-30-[address] Quentin Kellogg [facility] Start: 08-03-2022 Telephone encounter Argelia wiley MD Work Phone: OB/Gynecology Comment on above: Results Start: 07-04-2022 ambulatory Quentin Kellogg Work Phone: [facility] Comment on above: Allied Health Visit (Medication Adherence Outreach/) Start: 06-21-2022 End: 06-21-[address] Quentin Kellogg Work Phone: [facility] [facility] Work Phone: Start: 06-12-2022 End: 06-12-[address] [facility] Work Phone: Start: 06-12-2022 End: 06-12-2022 Patient encounter procedure [facility]-Outpatient Bone Densitometry Start: 06-04-2022 End: 06-04-[address] [facility] Work Phone: Start: 06-04-2022 End: 06-04-2022 [facility] Start: 04-16-2022 End: 04-16-2022 Patient encounter procedure Argelia Thomson MD Work Phone: OB/Gynecology Comment on above: Postmenopausal atrop hic vaginitis (Primary Dx); Breast cancer screening by mammogram; Dense breast Start: 03-01-2022 End: 03-01-[address] Bernardo Alfaro Work Phone: [facility] Work Phone: Start: 03-01-2022 End: 03-01-[address] Bernardo Alfaro [facility] Start: 02-22-2022 Telephone encounter Bernardo neal MD Work Phone: [facility] [place] Comment on above: Opened In Error Start: 12-13-2021 End: 12-13-[address] Bernardo Alfaro Work Phone: [facility] Work Phone: Start: 12-13-2021 End: 12-13-[address] Bernardo [facility]far[facility] Start: 12-05-2021 End: 12-05-[address] Bernardo Alfaro Work Phone: [facility] Start: 11-22-2021 End: 11-22-[address] Bernardo Alfaro Work Phone: [facility]-Pulmonary Services/Neurology Start: 10-27-2021 Telephone encounter Argelia wiley MD Work Phone: OB/Gynecology Comment on above: Future Appointment Start: 10-26-2021 End: 11-17-[address] Bernardo Alfaro Work Phone: [facility]-Diabetic Clinic Start: 09-25-2021 ambulatory [facility] [place] Comment on above: Population Health Na vigation Outreach (HCC) Start: 09-14-2021 End: 09-14-[address] Bernardo Alfaro [facility] Start: 06-28-2021 End: 06-28-2021 Subsequent hospital visit by physician [facility] Work Phone: Radiology Start: 06-09-2021 End: 06-09-[address] Bernardo Alfaro [facility] Start: 06-01-2021 End: 06-01-[address] Bernardo Alfaro Work Phone: [facility] Office 3rd Flr Start: 05-31-2021 End: 05-31-2021 Subsequent hospital visit by physician [facility] Work Phone: Radiology Comment on above: Cough [R05.9] Start: 05-31-2021 End: 05-31-2021 Patient encounter procedure Pia Thomson APRN.CNP Work Phone: [facility] Comment on above: Cough (Primary Dx) Start: 05-26-2021 End: 05-26-[address] Bernardo Alfaro Work Phone: [facility] Start: 05-26-2021 Telephone encounter Bernardo neal MD Work Phone: [facility] [place] Comment on above: Anticoagulation Patient Update Start: 05-25-2021 End: 05-25-[address] Bern[facility]far[facility] Start: 05-25-[address] Sofie Alfaro Work Phone: [facility] Start: 05-18-2021 Refill Bernardo wilson MD Work Phone: [facility] [place] Comment on above: Refill Request Start: 05-15-2021 Telephone encounter Bernardo neal MD Work Phone: [facility] Medicine [place] Comment on above: Anticoagulation Start: 05-15-2021 End: 05-18-2021 [facility] Start: 05-09-2021 End: 05-09-2021 Subsequent hospital visit by physician [facility] Work Phone: Radiology Comment on above: Cough [R05.9] Start: 04-25-2021 End: 04-25-2021 [facility] Start: 04-06-2021 End: 04-06-2021 [facility] Start: 02-07-2021 End: 02-18-2021 [facility] Procedures Date Procedure Procedure Detail Performing Clinician Start: 09-09-2024 Vitamin D, 25-hydrox y measurement Dr. Quentin Kellogg MD Work Phone: Comment on above: Vitamin D StatusDefi ciency: <20 ng/mL (50nmol/L)Insufficiency: 20-30 ng/mL (50-75 nmol/L)Sufficiency: 30-100 ng/mL (75-250 nmol/L)Toxicity: >100 ng/mL (>250 nmol/L) Start: 07-01-[address] Quentin Kellogg MD Work Phone: Start: 06-30-2024 Blood count smear rscp w/mnl difrntl wbc count Dr. Quentin Kellogg MD Work Phone: Start: 06-30-2024 Mean corpuscular hemoglobin concentration determination Dr. Quentin Kellogg MD Work Phone: Start: 06-30-2024 Nucleated red blood cell count procedure Dr. Quentin Kellogg MD Work Phone: Start: 06-30-2024 Platelet mean volume determination Dr. Quentin Kellogg MD Work Phone: Start: 06-26-2024 Plain x-ray of pelvi s and lower extremity Dr. Quentin Kellogg MD Work Phone: Start: 06-18-2024 Calculation of international normalized ratio Dr. Quentin Kellogg MD Work Phone: Start: 06-17-[address] Quentin Kellogg MD Work Phone: Start: 06-17-2024 Total cholesterol:HD L ratio measurement Dr. Quentin Kellogg MD Work Phone: Start: 06-16-2024 Measurement of occul t blood in stool specimen using immunoassay Dr. Quentin Kellogg MD Work Phone: Start: 06-16-2024 Total iron binding capacity measurement Dr. Quentin Kellogg MD Work Phone: Start: 06-15-2024 Blood count smear rscp w/mnl difrntl wbc count Dr. Quentin Kellogg MD Work Phone: Start: 06-15-[address] Quentin Kellogg MD Work Phone: Start: 06-15-2024 Mean corpuscular hemoglobin concentration determination Dr. Quentin Kellogg MD Work Phone: Start: 06-15-2024 Nucleated red blood cell count procedure Dr. Quentin Kellogg MD Work Phone: Start: 06-15-2024 Platelet mean volume determination Dr. Quentin Kellogg MD Work Phone: Start: 06-15-2024 Serum inorganic phos phate measurement Dr. Quentin Kellogg MD Work Phone: Start: 06-11-2024 Fluoroscopic guidance Sondra Kellogg MD Work Phone: Start: 06-11-2024 Intramedullary naili ng of femur Dr. Quentin Kellogg MD Work Phone: Start: 06-11-2024 Plain X-ray of femur Dr Meka Kellogg MD Work Phone: Start: 06-10-2024 Calculation of international normalized ratio Dr. Quentin Kellogg MD Work Phone: Start: 06-09-2024 Plain chest X-ray Dr. Elier Kellogg MD Work Phone: Start: 06-09-2024 Plain radiography of pelvis Dr. Quentin Kellogg MD Work Phone: Start: 06-09-2024 Plain X-ray of femur Dr Meka Kellogg MD Work Phone: Start: 06-09-2024 X-ray of knee, one o r two views Dr. Quentin Kellogg MD Work Phone: Start: 06-08-2024 SARS-CoV-2, Influenz a & RSV (PCR) Dr. Quentin Kellogg MD Work Phone: Start: 06-08-2024 Dr. Quentin browning MD Work Phone: Start: 06-08-2024 Blood count smear mc rscp w/mnl difrntl wbc count Dr. Quentin Kellogg MD Work Phone: Start: 06-08-2024 Mean corpuscular hemoglobin concentration determination Dr. Quentin Kellogg MD Work Phone: Start: 06-08-2024 Nucleated red blood cell count procedure Dr. Quentin Kellogg MD Work Phone: Start: 06-08-2024 Platelet mean volume determination Dr. Quentin Kellogg MD Work Phone: Start: 06-08-2024 Vitamin D, 25-hydrox y measurement Dr. Quentin Kellogg MD Work Phone: Comment on above: Vitamin D StatusDefi ciency: <20 ng/mL (50nmol/L)Insufficiency: 20-30 ng/mL (50-75 nmol/L)Sufficiency: 30-100 ng/mL (75-250 nmol/L)Toxicity: >100 ng/mL (>250 nmol/L) Start: 05-25-2024 SARS-CoV-2, Influenz a & RSV (PCR) Dr. Quentin Kellogg MD Work Phone: Start: 05-25-2024 Dr. Quentin browning MD Work Phone: Start: 04-17-2024 Blood count smear rscp w/mnl difrntl wbc count Dr. Quentin Kellogg MD Work Phone: Start: 04-17-2024 Mean corpuscular hemoglobin concentration determination Dr. Quentin Kellogg MD Work Phone: Start: 04-17-2024 Nucleated red blood cell count procedure Dr. Quentin Kellogg MD Work Phone: Start: 04-17-2024 Platelet mean volume determination Dr. Quentin Kellogg MD Work Phone: Start: 03-27-2024 SARS-CoV-2, Influenz a & RSV (PCR) Dr. Quentin Kellogg MD Work Phone: Start: 03-27-2024 Dr. Quentin browning MD Work Phone: Start: 03-27-2024 Assay of phosphorus inorganic Dr. Quentin Kellogg MD Work Phone: Start: 03-27-2024 BUN/Creatinine ratio Dr Meka Kellogg MD Work Phone: Start: 03-27-2024 Mean corpuscular hemoglobin concentration determination Dr. Quentin Kellogg MD Work Phone: Start: 03-27-2024 Measurement of renal function Dr. Quentin Kellogg MD Work Phone: Start: 03-27-[address] Quentin Kellogg MD Work Phone: Start: 03-27-2024 Platelet mean volume determination Dr. Quentin Kellogg MD Work Phone: Start: 03-27-2024 Urine microalbumin/creatinine ratio measurement Dr. Quentin Kellogg MD Work Phone: Start: 03-19-2024 Assay of phosphorus inorganic Dr. Quentin Kellogg MD Work Phone: Start: 03-19-2024 BUN/Creatinine ratio Dr Meka Kellogg MD Work Phone: Start: 03-19-2024 Measurement of renal function Dr. Quentin Kellogg MD Work Phone: Start: 12-19-2023 Urnls dip stick/tabl et rgnt auto w/o microscopy Ethel Hannahuong CORRECTIONAL OFFICER CHIEF.BUTADIENE CONVERTOR OPERATOR Work Phone: Start: 11-29-2023 Screening mammograph y bi 2-view breast inc cad Argelia Thomson MD Work Phone: Start: 04-23-2023 Plain chest X-ray Dr. Elier Kellogg Work Phone: Start: 10-26-2022 Screening mammograph y bi 2-view breast inc cad Argelia Thomson MD Work Phone: Start: 09-11-2022 Diagnostic radiograp hy of abdomen Dr. Quentin Kellogg Work Phone: Start: 09-11-2022 Clostridium difficil e detection Dr. Quentin Kellogg Work Phone: Start: 09-11-[address] Quentin Kellogg Work Phone: Start: 09-11-2022 Measurement of occul t blood in stool specimen using immunoassay Dr. Quentin Kellogg Work Phone: Start: 09-11-[address] Quentin Kellogg Work Phone: Start: 09-11-2022 Ova OR parasites identification Start: 09-11-[address] Quentin smith Work Phone: Start: 09-07-2022 Plain chest X-ray Dr. Elier Kellogg Work Phone: Start: 09-05-2022 Measurement of occul t blood in stool specimen using immunoassay Dr. Quentin Kellogg Work Phone: Start: 06-12-2022 Dual energy X-ray absorptiometry Start: 06-28-2021 Radex spine lumbosac ral 2/3 views [facility] Provider Start: 06-09-2021 Plain chest X-ray Dr. Geovanna Alfaro Work Phone: Start: 05-31-2021 Radiologic exam ches t 2 views Pia Thomson CORRECTIONAL OFFICER CHIEF.BUTADIENE CONVERTOR OPERATOR Work Phone: Start: 05-25-2021 PROTHROMBIN TIME/PT [facility] Provider Start: 05-15-2021 PROTHROMBIN TIME/PT Stefano cheng Alfaro MD Work Phone: Start: 05-09-2021 Radiologic exam ches t 2 views Judie Hubbard CORRECTIONAL OFFICER CHIEF.BUTADIENE CONVERTOR OPERATOR Work Phone: Start: 12-09-2020 Adult depression scr eening assessment Bernardo Alfaro MD Work Phone: Start: 04-11-2020 Mammography Bernardo Ramirez MD Work Phone: Start: 04-20-2019 Colonoscopy Bernardo Ramirez MD Work Phone: Start: 09-02-2006 End: 12-18-2017 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 Bernardo Alfaro Work Phone: Influenza Types A,B Direct FA (GILBERT) Dr. Bernardo Alfaro Work Phone: Respiratory syncytia l virus antigen assay Dr. Bernardo Alfaro Work Phone: Respiratory syncytia l virus antigen assay Dr. Bernardo Alfaro Work Phone: Plan of Treatment Date Care Activity Detail Author Start: 06-07-2032 Urine microalbumin profile DTa P,Tdap,Td Vaccine (5 - Td or Tdap) [facility] Start: 09-10-2026 Screening for malign ant neoplasm of colon Cologuard (FIT-DNA) [facility] Start: 12-03-2024 Urine microalbumin profile DTA P,TDAP,TD (4 - Td or Tdap) [facility] Start: 11-28-2024 Screening for malign ant neoplasm of breast Mammogram Screening [facility] Start: 07-03-2024 Patient discharge [facility] Start: 07-02-2024 Speech therapy management [facility] Start: 07-02-2024 Development of care plan [facility] Start: 07-01-2024 Referral to service [facility] Start: 06-19-2024 Endoscopy upper smal l intestine w/biopsy [facility] Start: 06-19-2024 Enteroscopy > 2nd pr tn w/control bleeding [facility] Start: 06-19-2024 Patient discharge [facility] Start: 06-17-2024 Speech therapy management [facility] Start: 06-17-2024 Speech therapy assessment [facility] Start: 06-17-2024 Administration of bl ood product [facility] Start: 06-17-2024 Application of device W [facility] Start: 06-16-2024 Referral to gastroenterology service [facility] Start: 06-16-2024 Development of care plan [facility] Start: 06-16-2024 Developing a treatme nt plan [facility] Start: 06-16-2024 [facility] Start: 06-15-2024 Following clinical p athway protocol [facility] Start: 06-15-2024 Recommendation to co ntinue with treatment [facility] Start: 06-15-2024 Admission procedure [facility] Start: 06-15-2024 Introduction of urin nancy catheter [facility] Start: 06-15-2024 Measuring intake and output [facility] Start: 06-15-2024 Patient referral to dietitian [facility] Start: 06-15-2024 Referral to occupati onal therapist [facility] Start: 06-15-2024 Referral to service [facility] Start: 06-15-2024 Vital signs measurements [facility] Start: 06-15-2024 [facility] Start: 06-15-2024 Patient discharge [facility] Start: 06-15-2024 Consultation [facility] Start: 06-12-2024 Referral to occupati onal therapist [facility] Start: 06-12-2024 Referral to service [facility] Start: 06-11-2024 Care planning and pr oblem solving actions [facility] Start: 06-11-2024 Application of ice c ollar, cap or bag [facility] Start: 06-11-2024 Assessment of risk o f venous thromboembolism [facility] Start: 06-11-2024 Catheterization of vein [facility] Start: 06-11-2024 Elevation of affecte d extremity [facility] Start: 06-11-2024 Following clinical p athway protocol [facility] Start: 06-11-2024 Provision of activit y privileges [facility] Start: 06-11-2024 Recommendation to co jim with treatment [facility] Start: 06-11-2024 Touch weight-bearing gait training [facility] Start: 06-11-2024 Vital signs measurements [facility] Start: 06-11-2024 [facility] Start: 06-11-2024 Admission procedure [facility] Start: 06-11-2024 Fluoroscopic guidance O.R. Fluoro fo r C-Arm [facility] Start: 06-11-2024 Plain X-ray of femur Femur Min 2 Vie ws [facility] Start: 06-11-2024 [facility] Start: 06-10-2024 End: 06-10-[address] [facility] Start: 06-10-2024 Care regimes management [facility] Start: 06-10-2024 Notification of physician [facility] Start: 06-10-2024 Consultation [facility] Start: 06-10-2024 Application of intermittent pneumatic compression device [facility] Start: 06-10-2024 Following clinical p athway protocol [facility] Start: 06-10-2024 Assessment of risk o f venous thromboembolism [facility] Start: 06-10-2024 Documentation procedure [facility] Start: 06-10-2024 Incentive spirometry [facility] Start: 06-10-2024 Insertion of cathete r into peripheral vein [facility] Start: 06-10-2024 Measuring intake and output [facility] Start: 06-10-2024 Providing care accor ding to standard [facility] Start: 06-10-2024 Referral to service [facility] Start: 06-10-2024 Consultation [facility] Start: 06-10-2024 Inhalation therapy procedure [facility] Start: 06-10-2024 Patient referral to dietitian [facility] Start: 06-10-2024 End: 06-10-[address] [facility] Start: 06-09-2024 Verification routine [facility] Start: 06-09-2024 Admission procedure [facility] Start: 05-12-2024 End: 05-12-2024 Patient encounter procedure 05/12/2024 9:20 AM EDT Office Visit OB/Gynecology [address] [place] [address] Argelia Thomson MD [address] [place] [address] Annual OB/Gynecology Comment on above: Annual Start: 04-19-[address] [facility] Start: 04-19-2024 COLORECTAL CANCER SCREENING COLORECTAL CANCER SCREENING [facility] Start: 04-19-2024 Screening for malign ant neoplasm of colon [facility] Start: 04-17-2024 Ctrl nsl hemrrg pst nasal packs&/cautery 1st [facility] Start: 04-17-2024 [facility] Start: 02-19-2024 Advance Directive Discussion Advance Directive Discussion [facility] Start: 10-27-2023 Mammography Mammogram Screening [facility] Start: 10-27-2023 Screening for malign ant neoplasm of breast Mammogram Screening [facility] Start: 10-20-2023 Covid-19 Vaccine ( season) Covid-19 Vaccine ( season) [facility] Start: 10-20-2023 Covid-19 Vaccine ( season) Covid-19 Vaccine ( season) [facility] Start: 10-20-2023 Influenza vaccination Influenza Vacc ine (#1) [facility] Start: 02-18-2023 Advance Directive Discussion Advance Directive Discussion [facility] Start: 02-18-2023 Depression Assessment Depression Ass essment [facility] Start: 10-19-2022 Covid-19 Vaccine ( season) Covid-19 Vaccine () [facility] Start: 10-19-2022 Influenza [facility] Start: 09-07-2022 [facility] Start: 09-05-2022 Measurement of occul t blood in stool specimen using immunoassay [facility] Start: 09-05-2022 Stool Occult Blood (GILBERT) Stool Occult Blood (GILBERT) [facility] Start: 09-05-2022 Procedure [facility] Start: 03-02-2022 ANNUAL PCP TEAM TREASURY REPRESENTATIVE JOHN DISEASE VISIT ANNUAL PCP TEAM CHRONIC DISEASE VISIT [facility] Start: 02-18-2022 ADVANCE DIRECTIVE DISCUSSION ADVANCE DIRECTIVE DISCUSSION [facility] Start: 02-18-2022 DEPRESSION ASSESSMENT DEPRESSION ASS ESSMENT [facility] Start: 01-18-2022 Glaucoma screening Dilated Retinal E xam [facility] Start: 01-18-2022 Hepatitis C antibody , confirmatory test DILATED RETINAL EXAM [facility] Start: 12-09-2021 3 comp foot exam completed DIABETIC FOOT EXAM [facility] Start: 12-09-2021 Adult depression scr eening assessment DEPRESSION SCREENING [facility] Start: 12-09-2021 Diabetic foot examination Diabetic F oot Exam [facility] Start: 10-19-2021 Influenza vaccination INFLUENZA (#1) [facility] Start: 07-28-2021 COVID-19 VACCINE (6 - Booster for Pfizer series) COVID-19 VACCINE (6 - Booster for Pfizer series) [facility] Start: 07-14-2021 COVID-19 VACCINE (5 - Booster for Pfizer series) COVID-19 VACCINE (5 - Booster for Pfizer series) [facility] Start: 06-23-2021 Hepatitis B surface antibody level LDL CHOLESTEROL [facility] Start: 04-11-[address] [facility] Start: 02-18-2021 ADVANCE DIRECTIVE DISCUSSION ADVANCE DIRECTIVE DISCUSSION [facility] Start: 11-09-2020 Hemoglobin A1c measurement HbA1C [facility] Start: 11-09-2020 Hemoglobin A1c/Hemoglobin.total in Blood HBA1C [facility] Start: 11-08-2020 Complete blood count Hemoglobin/Trae tocrit [facility] Start: 11-08-2020 Creatinine measurement Serum Creatin ine [facility] Start: 11-08-2020 HEMOGLOBIN/HEMATOCRIT HEMOGLOBIN/HEM ATOCRIT [facility] Start: 11-08-2020 Hepatitis B screening URINE ALBUMIN:CREATININE RATIO [facility] Start: 11-08-2020 SERUM CREATININE SERUM CREATININE Cl [facility] Start: 06-12-2019 FECAL OCCULT BLOOD FECAL OCCULT BLOO D [facility] Start: 06-12-2019 Screening for malign ant neoplasm of colon Fecal Occult Blood [facility] Start: 2010 Hepatitis B Vaccine (1 of 3 - Risk 3-dose series) Hepatitis B Vaccine (1 of 3 - Risk 3-dose series) [facility] Start: 2010 RSV Vaccine (1 - 1-d ose 60+ series) RSV Vaccine (1 - 1-dose 60+ series) [facility] Start: 11-20-1995 COLOGUARD (FIT-DNA) COLOGUARD (FIT-D NA) [facility] Start: 11-20-[address] COLONOGRAPHY [facility] Start: 11-20-1995 Screening for malign ant neoplasm of colon [facility] Start: 11-20-1995 SIGMOIDOSCOPY SIGMOIDOSCOPY [facility] Start: 1968 Anxiety Screening Anxiety Screening [facility] Start: 1968 Depression Screening Depression Scre ening [facility] Bacteria identified in Urine by Culture URINE CULTURE Microbiology Routine Burning with urination 12/19/2023 10:29 AM EDT [facility] Work Phone: BACTERIAL VAGINOSIS NAAT BACTERI AL VAGINOSIS NAAT Lab Routine Burning with urination 12/19/2023 10:[address] [facility] ROZINA/TRICHOMONAS NAAT ROZINA /TRICHOMONAS NAAT Lab Routine Burning with urination 12/19/2023 10:[address] [facility] End: 07-04-2025 DBT Breast - bilateral screening DANAY SCREENING W [facility] Radiology Routine Encounter for screening mammogram for breast cancer 1 Occurrences starting 06/04/2024 until 07/04/2025 [facility] Work Phone: Comment on above: 1 Occurrences starti ng 06/04/2024 until 07/04/2025 End: 05-16-2023 DANAY SCREENING W [facility] DANAY SCREENING W [facility] Radiology Routine Breast cancer screening by mammogram Dense breast 1 Occurrences starting 04/16/2022 until 05/16/2023 [facility] Work Phone: Comment on above: 1 Occurrences starti ng 04/16/2022 until 05/16/2023 End: 06-07-2024 MG Breast Screening [facility]NAY SCREENING Radiology Routine Encounter for screening mammogram for breast cancer 1 Occurrences starting 05/09/2023 until 06/07/2024 [facility] Work Phone: Comment on above: 1 Occurrences starti ng 05/09/2023 until 06/07/2024 Ova and parasites identified in Unspecified specimen by Light microscopy [facility] Patient Education ED Dyspnea [facility] Work Phone: Patient referral [facility] Work Phone: [facility] Immunizations Immunization Date Immunization Notes Care Provider Fa [facility] 12-12-2023 influenza, injectabl e, quadrivalent, preservative free Dr. Quentin Kellogg MD Work Phone: [facility] 11-29-2023 Pneumococcal Vaccine PCV20 (Prevnar 20) Dr. Quentin Kellogg MD Work Phone: [facility] 12-09-2022 RSV Adult Recombinan t (Arexvy) Dr. Quentin Kellogg MD Work Phone: [facility] 11-18-2021 influenza virus vacc ine, unspecified formulation Screen Wstr [facility] 05-19-2021 COVID-19 vaccine, ag e 12+ yr (PFIZER-BIONTECH - PURPLE TOP) Bernardo Alfaro MD Work Phone: [facility] 05-19-2021 Pneumococcal Vaccine PCV20 (Prevnar 20) Dr. Quentin Kellogg MD Work Phone: [facility] 01-10-2021 COVID-19 vaccine, ag e 12+ yr (PFIZER-BIONTECH - PURPLE TOP) Bernardo Alfaro MD Work Phone: [facility] Work Phone: 12-06-2020 influenza, high dose seasonal, preservative-free Bernardo Alfaro MD Work Phone: [facility] Work Phone: 12-06-2020 influenza virus vacc ine, unspecified formulation Screen Wstr [facility] 05-17-2020 Covid (Pfizer) [facility] 04-26-2020 COVID-19 vaccine, ag e 12+ yr (PFIZER-BIONTECH - PURPLE TOP) Bernardo Alfaro MD Work Phone: [facility] Work Phone: 12-11-2019 influenza, high dose seasonal, preservative-free Bernardo Alfaro MD Work Phone: [facility] Work Phone: 04-13-2019 hepatitis A vaccine, unspecified formulation Bernardo Alfaro MD Work Phone: [facility] Work Phone: 04-13-2019 pneumococcal conjuga te vaccine, 13 valent Bernardo Alfaro MD Work Phone: [facility] Work Phone: 12-11-2018 influenza, seasonal, injectable Bernardo Alfaro MD Work Phone: [facility] Work Phone: 07-30-2018 hepatitis A vaccine, adult dosage Bernardo Alfaro MD Work Phone: [facility] 07-30-2018 zoster vaccine recombinant Bernardo Alfaro MD Work Phone: [facility] 03-27-2018 zoster vaccine recombinant Bernardo Alfaro MD Work Phone: [facility] Work Phone: 12-18-2017 influenza, high dose seasonal, preservative-free Bernardo Alfaro MD Work Phone: [facility] 12-18-2017 pneumococcal polysaccharide vaccine, 23 valent Bernardo Alfaro MD Work Phone: [facility] 12-05-2016 influenza, seasonal, injectable Bernardo Alfaro MD Work Phone: [facility] 05-03-2016 pneumococcal conjuga te vaccine, 13 valent Bernardo Alfaro MD Work Phone: [facility] 12-07-2015 influenza, high dose seasonal, preservative-free Bernardo Alfaro MD Work Phone: [facility] Work Phone: 12-03-2014 influenza, seasonal, injectable Bernardo Alfaro MD Work Phone: [facility] 12-03-2014 tetanus toxoid, redu clary diphtheria toxoid, and acellular pertussis vaccine, adsorbed Bernardo Alfaro MD Work Phone: [facility] Work Phone: 12-01-2013 influenza, seasonal, injectable Bernardo Alfaro MD Work Phone: [facility] 11-10-2012 influenza virus vacc ine, whole virus Bernardo Alfaro MD Work Phone: [facility] Work Phone: 09-02-2012 zoster vaccine, live Bernardo Alfaro MD Work Phone: [facility] Work Phone: 12-13-2011 influenza virus vacc ine, unspecified formulation Bernardo Alfaro MD Work Phone: [facility] 11-15-2011 tetanus toxoid, redu clary diphtheria toxoid, and acellular pertussis vaccine, adsorbed Bernardo Alfaro MD Work Phone: [facility] Work Phone: 12-22-2010 influenza virus vacc ine, unspecified formulation Bernardo Alfaro MD Work Phone: [facility] 12-02-2009 influenza virus vacc ine, unspecified formulation Bernardo Alfaro MD Work Phone: [facility] Work Phone: 12-28-2008 novel influenza-H1N1 -09, all formulations Bernardo Alfaro MD Work Phone: [facility] Work Phone: 12-29-2007 influenza virus vacc ine, unspecified formulation Bernardo Alfaro MD Work Phone: [facility] Work Phone: 12-29-2007 pneumococcal polysaccharide vaccine, 23 valent Bernardo Alfaro MD Work Phone: [facility] 12-25-2007 influenza virus vacc ine, unspecified formulation Bernardo Alfaro MD Work Phone: [facility] Work Phone: 12-16-2006 influenza virus vacc ine, unspecified formulation Bernardo Alfaro MD Work Phone: [facility] Work Phone: 12-25-2005 influenza virus vacc ine, unspecified formulation Bernardo Alfaro MD Work Phone: [facility] 12-14-2004 influenza virus vacc ine, unspecified formulation Bernardo Alfaro MD Work Phone: [facility] Work Phone: 11-18-2001 diphtheria and tetan us toxoids, adsorbed for pediatric use Bernardo Alfaro MD Work Phone: [facility] Work Phone: Payers Date Payer Category Payer Self-pay [id number] 2021 Medicare (Managed Care) KAYLEIGH QUINTANILLA O [id number] 2022 Unknown ANTHEM BLUE CROS S AND BLUE SHIELD ANTHEM MEDIBLUE HMO [id number] 2021-Present [phone] [address] [place] [address] HMO [id number] 2021 Unknown [id number] 2021 Medicare [id number] Medicare [id number] Private Health Insurance [id number] Unknown [id number] Unknown [id number] 62 Unknown [id number] [id number] 62 Unknown [id number] [id number] 62 Unknown [id number] [id number] 62 Unknown [id number] 2.16.840.1.611650.3.579.2.4 62 Unknown [id number] 2.16.840.1.374282.3.579.2.4 62 Unknown [id number] 2.16.840.1.863584.3.579.2.4 62 Unknown [id number] 2.16.840.1.894579.3.579.2.4 62 Unknown [id number] 2.16.840.1.675725.3.579.2.4 62 Unknown [id number] 2.16.840.1.056535.3.579.2.4 62 Unknown [id number] 2.16.840.1.070991.3.579.2.4 62 Unknown [id number] 2.16.840.1.448857.3.579.2.4 62 Unknown [id number] 2.16.840.1.980583.3.579.2.4 62 Unknown [id number] 2.16.840.1.073260.3.579.2.4 62 Unknown [id number] 2.16.840.1.895757.3.579.2.4 62 Unknown [id number] 2.16.840.1.139671.3.579.2.4 62 Unknown [id number] 2.16.840.1.173206.3.579.2.4 62 Unknown [id number] 2.16.840.1.055586.3.579.2.4 62 Unknown [id number] 2.16.840.1.555953.3.579.2.4 62 Unknown [id number] 2.16.840.1.235709.3.579.2.4 62 Unknown [id number] 2.16.840.1.092308.3.579.2.4 62 Unknown [id number] 2.16.840.1.776997.3.579.2.4 62 Unknown [id number] [id number] 62 Social History Date Type Detail Facility Start: 04-28-2014 End: 06-18-2024 Tobacco smoking status NHIS Ex-smoker [facility] Work Phone: End: 02-18-1969 History of tobacco use Current smoker [facility] Work Phone: End: 02-18-1969 History of tobacco use Cigarette Smoker [facility] Work Phone: Start: 04-28-2014 End: 12-19-2023 Tobacco use and exposure Smokeless tobacco non-user [facility] Work Phone: Start: 05-09-2021 End: 06-04-2024 Alcohol intake Current non-drinker of alcohol (finding) [facility] Start: 10-25-2017 History SDOH Alcohol Comment rarely [facility] Start: 07-14-2019 End: 07-31-2022 Tobacco Comment Pt smoked 1-2 cigarettes daily x 1-[address] [facility] Start: 1950 Sex Assigned At Not on file C [facility] Start: 04-22-2021 End: 05-31-2021 Exposure to SARS-CoV-2 (event) Not sure [facility] Start: 04-23-2019 End: 03-25-2023 Tobacco smoking status NHIS Unknown if ever smoked [facility] Start: 06-18-2020 None [facility] Start: 06-18-2020 Homeless [facility] Start: 04-15-2019 Non-smoker [facility] Start: 1950 Sex Assigned At Female W [facility] Start: 12-09-2020 End: 07-31-2022 History of Social function [facility] Work Phone: Start: 12-09-2020 End: 07-31-[address] [facility] Work Phone: Adult Depression Screening Assessment [address] [facility] Work Phone: Start: 05-29-2024 End: 06-11-2024 Sex Female (finding) [facility] NEGATED: Highlighted row Not 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 FDA Start: 09-17-2018 Minimally invasive total replacement of hip joint by anterior approach TRIDENT ll TRITANIUM FDA Start: 09-17-2018 Minimally invasive total replacement of hip joint by anterior approach ACCOLADE ANGLE HIP STEM FDA Start: 09-17-2018 Minimally invasive total replacement of hip joint by anterior approach CERAMIC FEMORAL HEAD FDA Start: 09-17-2018 Minimally invasive total replacement of hip joint by anterior approach 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 FDA Start: 09-17-2018 Minimally invasive total replacement of hip joint by anterior approach TRIDENT ll TRITANIUM FDA Start: 09-17-2018 Minimally invasive total replacement of hip joint by anterior approach ACCOLADE ANGLE HIP STEM FDA Start: 09-17-2018 Minimally invasive total replacement of hip joint by anterior approach CERAMIC FEMORAL HEAD FDA Start: 09-17-2018 Minimally invasive total replacement of hip joint by anterior approach 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 FDA Start: 09-17-2018 Minimally invasive total replacement of hip joint by anterior approach TRIDENT ll TRITANIUM FDA Start: 09-17-2018 Minimally invasive total replacement of hip joint by anterior approach ACCOLADE ANGLE HIP STEM FDA Start: 09-17-2018 Minimally invasive total replacement of hip joint by anterior approach CERAMIC FEMORAL HEAD FDA Start: 09-17-2018 Minimally invasive total replacement of hip joint by anterior approach 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 FDA Start: 09-17-2018 Minimally invasive total replacement of hip joint by anterior approach TRIDENT ll TRITANIUM FDA Start: 09-17-2018 Minimally invasive total replacement of hip joint by anterior approach ACCOLADE ANGLE HIP STEM FDA Start: 09-17-2018 Minimally invasive total replacement of hip joint by anterior approach CERAMIC FEMORAL HEAD FDA Start: 09-17-2018 Minimally invasive total replacement of hip joint by anterior approach 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 FDA Start: 09-17-2018 Minimally invasive total replacement of hip joint by anterior approach TRIDENT ll TRITANIUM FDA Start: 09-17-2018 Minimally invasive total replacement of hip joint by anterior approach ACCOLADE ANGLE HIP STEM FDA Start: 09-17-2018 Minimally invasive total replacement of hip joint by anterior approach CERAMIC FEMORAL HEAD FDA Start: 09-17-2018 Minimally invasive total replacement of hip joint by anterior approach 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 FDA Start: 09-17-2018 Minimally invasive total replacement of hip joint by anterior approach TRIDENT ll TRITANIUM FDA Start: 09-17-2018 Minimally invasive total replacement of hip joint by anterior approach ACCOLADE ANGLE HIP STEM FDA Start: 09-17-2018 Minimally invasive total replacement of hip joint by anterior approach CERAMIC FEMORAL HEAD FDA Start: 09-17-2018 Minimally invasive total replacement of hip joint by anterior approach 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 FDA Start: 09-17-2018 Minimally invasive total replacement of hip joint by anterior approach TRIDENT ll TRITANIUM FDA Start: 09-17-2018 Minimally invasive total replacement of hip joint by anterior approach ACCOLADE ANGLE HIP STEM FDA Start: 09-17-2018 Minimally invasive total replacement of hip joint by anterior approach CERAMIC FEMORAL HEAD FDA Start: 09-17-2018 Minimally invasive total replacement of hip joint by anterior approach 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 FDA Start: 09-17-2018 Minimally invasive total replacement of hip joint by anterior approach TRIDENT ll TRITANIUM FDA Start: 09-17-2018 Minimally invasive total replacement of hip joint by anterior approach ACCOLADE ANGLE HIP STEM FDA Start: 09-17-2018 Minimally invasive total replacement of hip joint by anterior approach CERAMIC FEMORAL HEAD FDA Start: 09-17-2018 Minimally invasive total replacement of hip joint by anterior approach 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 FDA Start: 09-17-2018 Minimally invasive total replacement of hip joint by anterior approach TRIDENT ll TRITANIUM FDA Start: 09-17-2018 Minimally invasive total replacement of hip joint by anterior approach ACCOLADE ANGLE HIP STEM FDA Start: 09-17-2018 Minimally invasive total replacement of hip joint by anterior approach CERAMIC FEMORAL HEAD FDA Start: 09-17-2018 Minimally invasive total replacement of hip joint by anterior approach 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 FDA Start: 09-17-2018 Minimally invasive total replacement of hip joint by anterior approach TRIDENT ll TRITANIUM FDA Start: 09-17-2018 Minimally invasive total replacement of hip joint by anterior approach ACCOLADE ANGLE HIP STEM FDA Start: 09-17-2018 Minimally invasive total replacement of hip joint by anterior approach CERAMIC FEMORAL HEAD FDA Start: 09-17-2018 Minimally invasive total replacement of hip joint by anterior approach 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 FDA Start: 09-17-2018 Minimally invasive total replacement of hip joint by anterior approach TRIDENT ll TRITANIUM FDA Start: 09-17-2018 Minimally invasive total replacement of hip joint by anterior approach ACCOLADE ANGLE HIP STEM FDA Start: 09-17-2018 Minimally invasive total replacement of hip joint by anterior approach CERAMIC FEMORAL HEAD FDA Start: 09-17-2018 Minimally invasive total replacement of hip joint by anterior approach 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 FDA Start: 09-17-2018 Minimally invasive total replacement of hip joint by anterior approach TRIDENT ll TRITANIUM FDA Start: 09-17-2018 Minimally invasive total replacement of hip joint by anterior approach ACCOLADE ANGLE HIP STEM FDA Start: 09-17-2018 Minimally invasive total replacement of hip joint by anterior approach CERAMIC FEMORAL HEAD FDA Start: 09-17-2018 Minimally invasive total replacement of hip joint by anterior approach 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 FDA Start: 09-17-2018 Minimally invasive total replacement of hip joint by anterior approach TRIDENT ll TRITANIUM FDA Start: 09-17-2018 Minimally invasive total replacement of hip joint by anterior approach ACCOLADE ANGLE HIP STEM FDA Start: 09-17-2018 Minimally invasive total replacement of hip joint by anterior approach CERAMIC FEMORAL HEAD FDA Start: 09-17-2018 Minimally invasive total replacement of hip joint by anterior approach 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 FDA Start: 09-17-2018 Minimally invasive total replacement of hip joint by anterior approach TRIDENT ll TRITANIUM FDA Start: 09-17-2018 Minimally invasive total replacement of hip joint by anterior approach ACCOLADE ANGLE HIP STEM FDA Start: 09-17-2018 Minimally invasive total replacement of hip joint by anterior approach CERAMIC FEMORAL HEAD FDA Start: 09-17-2018 Minimally invasive total replacement of hip joint by anterior approach 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 FDA Start: 09-17-2018 Minimally invasive total replacement of hip joint by anterior approach TRIDENT ll TRITANIUM FDA Start: 09-17-2018 Minimally invasive total replacement of hip joint by anterior approach ACCOLADE ANGLE HIP STEM FDA Start: 09-17-2018 Minimally invasive total replacement of hip joint by anterior approach CERAMIC FEMORAL HEAD FDA Start: 09-17-2018 Minimally invasive total replacement of hip joint by anterior approach 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 FDA Start: 09-17-2018 Minimally invasive total replacement of hip joint by anterior approach TRIDENT ll TRITANIUM FDA Start: 09-17-2018 Minimally invasive total replacement of hip joint by anterior approach ACCOLADE ANGLE HIP STEM FDA Start: 09-17-2018 Minimally invasive total replacement of hip joint by anterior approach CERAMIC FEMORAL HEAD FDA Start: 09-17-2018 Minimally invasive total replacement of hip joint by anterior approach 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 FDA Start: 09-17-2018 Minimally invasive total replacement of hip joint by anterior approach TRIDENT ll TRITANIUM FDA Start: 09-17-2018 Minimally invasive total replacement of hip joint by anterior approach ACCOLADE ANGLE HIP STEM FDA Start: 09-17-2018 Minimally invasive total replacement of hip joint by anterior approach CERAMIC FEMORAL HEAD FDA Start: 09-17-2018 Minimally invasive total replacement of hip joint by anterior approach 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 FDA Start: 09-17-2018 Minimally invasive total replacement of hip joint by anterior approach TRIDENT ll TRITANIUM FDA Start: 09-17-2018 Minimally invasive total replacement of hip joint by anterior approach ACCOLADE ANGLE HIP STEM FDA Start: 09-17-2018 Minimally invasive total replacement of hip joint by anterior approach CERAMIC FEMORAL HEAD FDA Start: 09-17-2018 Minimally invasive total replacement of hip joint by anterior approach 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 FDA Start: 09-17-2018 Minimally invasive total replacement of hip joint by anterior approach TRIDENT ll TRITANIUM FDA Start: 09-17-2018 Minimally invasive total replacement of hip joint by anterior approach ACCOLADE ANGLE HIP STEM FDA Start: 09-17-2018 Minimally invasive total replacement of hip joint by anterior approach CERAMIC FEMORAL HEAD FDA Start: 09-17-2018 Minimally invasive total replacement of hip joint by anterior approach 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 FDA Start: 09-17-2018 Minimally invasive total replacement of hip joint by anterior approach TRIDENT ll TRITANIUM FDA Start: 09-17-2018 Minimally invasive total replacement of hip joint by anterior approach ACCOLADE ANGLE HIP STEM FDA Start: 09-17-2018 Minimally invasive total replacement of hip joint by anterior approach CERAMIC FEMORAL HEAD FDA Start: 09-17-2018 Minimally invasive total replacement of hip joint by anterior approach 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 FDA Start: 09-17-2018 Minimally invasive total replacement of hip joint by anterior approach TRIDENT ll TRITANIUM FDA Start: 09-17-2018 Minimally invasive total replacement of hip joint by anterior approach ACCOLADE ANGLE HIP STEM FDA Start: 09-17-2018 Minimally invasive total replacement of hip joint by anterior approach CERAMIC FEMORAL HEAD FDA Start: 09-17-2018 Minimally invasive total replacement of hip joint by anterior approach 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 FDA Start: 09-17-2018 Minimally invasive total replacement of hip joint by anterior approach TRIDENT ll TRITANIUM FDA Start: 09-17-2018 Minimally invasive total replacement of hip joint by anterior approach ACCOLADE ANGLE HIP STEM FDA Start: 09-17-2018 Minimally invasive total replacement of hip joint by anterior approach CERAMIC FEMORAL HEAD FDA Start: 09-17-2018 Minimally invasive total replacement of hip joint by anterior approach 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 FDA Start: 09-17-2018 Minimally invasive total replacement of hip joint by anterior approach TRIDENT ll TRITANIUM FDA Start: 09-17-2018 Minimally invasive total replacement of hip joint by anterior approach ACCOLADE ANGLE HIP STEM FDA Start: 09-17-2018 Minimally invasive total replacement of hip joint by anterior approach CERAMIC FEMORAL HEAD FDA Start: 09-17-2018 Minimally invasive total replacement of hip joint by anterior approach 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 FDA Start: 09-17-2018 Minimally invasive total replacement of hip joint by anterior approach TRIDENT ll TRITANIUM FDA Start: 09-17-2018 Minimally invasive total replacement of hip joint by anterior approach FDA Start: 09-17-2018 Minimally invasive total replacement of hip joint by anterior approach FDA Start: 09-17-2018 Minimally invasive total replacement of hip joint by anterior approach FDA Start: 09-17-2018 Minimally invasive total replacement of hip joint by anterior approach FDA Start: 09-17-2018 Minimally invasive total replacement of hip joint by anterior approach ACCOLADE ANGLE HIP STEM FDA Start: 09-17-2018 Minimally invasive total replacement of hip joint by anterior approach CERAMIC FEMORAL HEAD FDA Start: 09-17-2018 Minimally invasive total replacement of hip joint by anterior approach 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 FDA Start: 09-17-2018 Minimally invasive total replacement of hip joint by anterior approach TRIDENT ll TRITANIUM FDA Start: 09-17-2018 Minimally invasive total replacement of hip joint by anterior approach ACCOLADE ANGLE HIP STEM FDA Start: 09-17-2018 Minimally invasive total replacement of hip joint by anterior approach CERAMIC FEMORAL HEAD FDA Start: 09-17-2018 Minimally invasive total replacement of hip joint by anterior approach 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 FDA Start: 09-17-2018 Minimally invasive total replacement of hip joint by anterior approach TRIDENT ll TRITANIUM FDA Start: 09-17-2018 Insertion, intramedullary topher, femur, retrograde [id number] FDA Start: 04-24-2025 Insertion, intramedullary topher, femur, retrograde [id number] FDA Start: 06-11-2024 Insertion, intramedullary topher, femur, retrograde ()[id number] FDA Start: 06-11-2024 Insertion, intramedullary topher, femur, retrograde ([id number]) [id number] FDA Start: 06-11-2024 Insertion, intramedullary topher, femur, retrograde ()[id number] FDA Start: 06-11-2024 Insertion, intramedullary topher, femur, retrograde [id number] FDA Start: 06-11-2024 Insertion, intramedullary topher, femur, retrograde ([id number]) ()[id number] FDA Start: 06-11-2024 Insertion, intramedullary topher, femur, retrograde ()[id number] FDA Start: 06-11-2024 Insertion, intramedullary topher, femur, retrograde ()[id number] FDA Start: 06-11-2024 [id number], [id number] Start: 12-04-2016 Comment on above: Test 2 times daily D x: E11.8 Insulin: No Test blood sugar(s) 2 times daily. Dx: Type 2 DM - Uncontrolled E11.9 Insulin: No Goals Date Patient Goal Desired Activity /State Functional Status Date Assessment Result Facility 07-03-2024 Functional status Ambulates [facility] Work Phone: 06-15-2024 Functional status Bedrest [facility] Work Phone: 06-11-2024 Functional status Bedrest [facility] Work Phone: 05-03-2016 Are you deaf, or do you have serious difficulty hearing No 05/03/2016 8:58 AM Bernardo Easley MD No [facility] 05-03-2016 Are you blind, or do you have serious difficulty seeing, even when wearing glasses No 05/03/2016 8:58 AM Bernardo Easley MD No [facility] 05-03-2016 Do you have serious difficulty walking or climbing stairs No 05/03/2016 8:58 AM Bernardo Easley MD No [facility] 05-03-2016 Do you have difficul ty dressing or bathing No 05/03/2016 8:58 AM Bernardo Easley MD No [facility] 05-03-2016 Because of a physica l, mental, or emotional condition, do you have difficulty doing errands alone such as visiting a physician's office or shopping No 05/03/2016 8:58 AM Bernardo Easley MD No [facility] Mental Status Date Assessment Result Facility 07-03-2024 Cognitive function Voice/Name [facility] Work Phone: 07-02-2024 Cognitive function Appropriate;Cooperativ e [facility] Work Phone: 06-19-2024 Cognitive function Voice/Name [facility] Work Phone: 06-15-2024 Cognitive function Voice/Name [facility] Work Phone: 06-11-2024 Cognitive function Voice/Name [facility] Work Phone: 09-07-2022 Cognitive function Level Of Cons ciousness Awake;Alert;Appropriate [facility] Work Phone: 05-03-2016 Because of a physica l, mental, or emotional condition, do you have serious difficulty concentrating, remembering, or making decisions No 05/03/2016 8:58 AM Bernardo Easley MD No [facility] Clinical Notes 08-30-2017 to 06-30-2024 Note Date & Type Note Facility 06-30-2024 Discharge summary Note Date/Time May 13th, 2025 8:27pm [facility] Medical Records Department [address] [place] [address] Discharge Summary 06/30/242016 MR#: [id number] Acct: [id number] Name: ANNETTE MARCOS Rep #:[id number] : 1950 73 From: Quentin Kellogg MD PCP: Dr. Quentin Kellogg MD Status:ADM I N Location: [place] [address] Providers Date of Admission: 06/15/24 Primary Care Physician: Dr. Quentin Kellogg MD Consultations 06/16/24 17:23 Consult: Gastroenterology Routine Consulting Provider: [facility] Reason for Consult: Anemia, +hemoccult. EMERGENT Consult: No MD Notified: Yes Date Notified: 06/17/24 Time Notified: 09:01 Method of Notification: Text Reason For Visit: R FEMUR FRACTURE Diagnosis Discharge Diagnosis (1) Iron deficiency anemia: Status: Acute Code(s): D50.9 - Iron deficiency anemia, unspecified Plan 73 year old female with below past medical history hospitalized for right distalspiral femur fracture, underwent ORIF right distal femur fracture, intramedullary nail retrograde, cerclage wires 06/11/[address] Sivakumar Shannon,admitted to TCU with debility, here for rehabiltation, strengthening, prior to discharge home with family. * Debility - PT/OT. * Pain - Tylenol 650mg q8, [place] 5/325mg 2 tabs q6 prn. * Bowel - Miralax 17gm daily, senna/colace 2 tablets bid. * Adult immunization - Administer pneumonia vaccine, covid vaccine, flu vaccine as appropriate * DVT prophylaxis - on Xarelto. * COPD - Fluticasone/Salmeterol 232-14 1 puff q12, Albuterol 2.5mg neb q4 prn. * Atrial fibrillation - Xarelto 15mg daily. * Overactive bladder - Tolterodine 2mg daily. * Iron deficiency anemia - Iron 325mg bidcm, Vitamin C 500mg daily. * Hyperlipidemia - Atorvastatin 40mg qhs. * Depression - Citalopram 10mg daily, stable chronic snf use, GDR not recommended. * GERD - Famotidine 40mg daily, Mylanta 30mL q6 prn. * Diabetes Mellitus II - Zain 30mg daily. * Diabetic polyneuropathy - Gabapentin 600mg tid. * Allergic rhinitis - Loratadine 10mg daily prn. * Insomnia - Melatonin 3mg qhs prn. * Muscle spasm - Robaxin 250mg to 500g bid prn. Medications at Discharge Home Medications fluticasone 100 mcg-salmeterol 50 mcg/dose blistr powdr for inhalation 1 puff inhalation BID asthma 01/29/13 ferrous gluconate 324 mg (37.5 mg iron) tablet 325 mg PO BID iron 05/29/18 albuterol sulfate 90 mcg/actuation aerosol inhaler 2 puff inhalation 4X/DAY PRN asthma 12/05/21 cetirizine 10 mg tablet 10 mg PO DAILY PRN allergy symptoms 06/21/22 gabapentin 600 mg tablet 600 mg PO TID neuropathy 06/21/22 pioglitazone 30 mg tablet 30 mg PO DAILY diabetes 06/21/22 rivaroxaban 15 mg tablet (Xarelto) 15 mg PO DAILY blood thinner #90 tabs 12/19/22 atorvastatin 40 mg tablet 40 mg PO DAILY cholesterol #90 tabs 04/07/24 solifenacin 5 mg tablet 5 mg PO QDAY overactive bladder 05/27/24 ascorbic acid (vitamin C) 500 mg tablet 500 mg PO DAILY supplement 06/09/24 citalopram 10 mg tablet 10 mg PO DAILY mood 06/09/24 methocarbamol 500 mg tablet 250 - 500 mg PO BID PRN PRN muscle spasm 06/09/24 acetaminophen 325 mg tablet 650 mg (2 x 325 mg) PO Q8 #0 tabs 06/30/24 pantoprazole 40 mg tablet,delayed release 40 mg PO BID 30 days #60 tabs 06/30/24 Hospital Course Operations - (See below.) Procedures None Summary of Care Provided Minutes Spent on Discharge: 35 Hospital Course: 73 year old female with below past medical history hospitalized for right distalspiral femur fracture, underwent ORIF right distal femur fracture, intramedullary nail retrograde, cerclage wires 06/11/[address] Sivakumar Shannon,admitted to TCU with debility, here for rehabiltation, strengthening, prior to discharge home with family. 06/19/2024 Friend EGD: Impressions : - LA Grade D erosive esophagitis with bleeding. Biopsied. Treated with a heater probe. - Non-bleeding gastric ulcer with no stigmata of bleeding. Treated with a heater probe. - No gross lesions in the entire examined duodenum. Recommendations : - [facility]. - Resume previous diet. - Use Protonix (pantoprazole) 40 mg PO BID. - Continue present medications. Discharge home with family 07/03/2024, [facility] PT/OT/SN/SW. Physical Exam Const alert General Appearance: cooperative HEENT normocephalic Eyes PERRL and EOMs intact bilaterally Neck supple, no JVD and no carotid bruits Resp normal respiratory effort, normal air movement and clear to auscultation bilaterally Cardio regular rate and regular rhythm GI normal to inspection, nondistended, normoactive bowel sounds, non-tender and non-distended Extremity normal capillary refill General Extremity: Negative for edema Skin no rashes or lesions noted General Skin Exam: no breakdown Psych affect normal Appearance: appropriate Weight / BMI Weight Weight: 79.515 kg Body Mass Index (BMI) 33.1 ABG / Lab / Microbiology Data 06/30/24 05:02 06/30/24 05:02 Laboratory: Laboratory Results - last 24 hr 06/29/24 21:34: POC Glucose 190 H 06/30/24 05:02: WBC 4.3 L, RBC 2.95 L, Hgb 9.1 L, Hct 29.0 L, MCV 98.3, MCH 30.8, MCHC 31.4 L, RDW Std Deviation 50.4 H, RDW Coeff of Mahin 14.0, Plt Count 242, MPV 8.7, Immature Gran % (Auto) 0.700, Neut % (Auto) 45.7 L, Lymph % (Auto)37.5, [place] % (Auto) 11.7 H, Eos % (Auto) 4.2, Baso % (Auto) 0.2, Absolute Neuts (auto) 2.0, Absolute Lymphs (auto) 1.60, Nucleated RBC % 0, Sodium 141, Potassium 5.2 H, Chloride 107, Carbon Dioxide 25.6, Anion Gap 8, BUN 39 H, Creatinine 1.09, Estim Creat Clear Calc 43.80 L, Est GFR (MDRD) Non-Af 54 L, BUN/Creatinine Ratio 36.0 H, Glucose 88, Calcium 9.4 06/30/24 06:00: POC Glucose 74 Microbiology: Microbiology 06/16/24 16:15 Stool Stool Occult Blood (GILBERT) - Final Occult Blood Positive D/C Instructions Discharge Diet: No restrictions Discharge Activity: Return to Normal Activity, May Shower and Use Walker Weight Bearing Status: Weight bearing as tolerated Call your doctor if you observe: Fever of 101 or Higher, Inability to urinate, Inability to have a bowel movement, Shortness of breath, Dizziness, Fainting spells, Swelling in the ankles, Chest pain and Uncontrolled pain DC O2, CPAP, BIPAP Needs Home O2 Discharge instructions: No Additional Instructions: Discharge home with family 07/03/2024, [facility] PT/OT/SN/SW. Please Follow Up With: Dr. Shannon (Will see Sissy BARLOW) When: As scheduled. Meaningful Use Info Meaningful Use Meaningful Use Diagnoses (Choose all that apply): None applicable Ischemic Stroke Statin Dosing Therapy Reference: STATIN DOSE THERAPY REFERENCE: * Patients > 75 years receive moderate or high dose statin therapy. * Patients 75 years or YOUNGER should receive HIGH intensity statin dose unless contraindicated. You will be required to document reason for non-treatment if statin daily dose does not meet guidelines. HIGH DOSE STATIN THERAPY DAILY Atorvastatin > than or = to 40 mg Rosuvastatin > than or = to 20 mg Amlodipine + Atorvastatin > than or = to 2.5/40 mg Ezetimibe + Simvastatin 10/80 mg Simvastatin 80mg Discharge Plan Admission Admit Date/Time: 06/15/24 13:17 Primary Reason for Your Visit: Debility Attending Provider: Quentin Kellogg Chi Primary Care Provider: Quentin Kellogg Chi Instructions Additional Instructions / Restrictions: Discharge home with family 07/03/2024, [facility] PT/OT/SN/SW. Discharge Orders/Prescriptions Prescriptions: New acetaminophen 325 mg Tablet 650 mg PO Q8 Qty: 0 0RF pantoprazole 40 mg Tablet,Delayed Release (Dr/Ec) 40 mg PO BID 30 Days Qty: 60 0RF Continued gabapentin 600 mg tablet 600 mg PO TID cetirizine 10 mg tablet 10 mg PO DAILY PRN (Reason: allergy symptoms) pioglitazone 30 mg tablet 30 mg PO DAILY solifenacin 5 mg tablet 5 mg PO QDAY fluticasone propion-salmeterol 1 PUFF inhaler 1 puff INHALATION BID albuterol sulfate 90 mcg/actuation HFA aerosol inhaler 2 puff inhalation 4X/DAY PRN (Reason: asthma) ferrous gluconate 324 MG tablet 325 mg PO BID methocarbamol 500 mg tablet 250 - 500 mg PO BID PRN PRN (Reason: muscle spasm) citalopram 10 mg tablet 10 mg PO DAILY ascorbic acid (vitamin C) 500 mg tablet 500 mg PO DAILY Xarelto 15 mg tablet 15 mg PO DAILY Qty: 90 3RF Rx Instructions: must administer with evening meal atorvastatin 40 mg tablet 40 mg PO DAILY Qty: 90 3RF Discontinued famotidine 40 mg tablet 40 mg PO DAILY sennosides-docusate sodium 1 TABLET tablet 2 tab PO BID PRN (Reason: Constipation) Rx Instructions: Take until first bowel movement, then as needed acetaminophen 325 mg Tablet 650 mg PO Q8 Qty: 0 0RF hydrocodone-acetaminophen 5-325 mg Tablet 2 tab PO Q6H PRN PRN (Reason: Pain Score 4-10) 1 Days Qty: 3 0RF insulin lispro [Humalog KwikPen Insulin] 100 unit/mL Insulin Pen See Protocol subcut ACHS Qty: 0 0RF Protocol: 4. Sliding Scale Insulin High-Med Dosing Condition: 150-199 mg/dl = 2 units Condition: 200-259 mg/dl = 4 units Condition: 260-324 mg/dl = 6 units Condition: 325-374 mg/dl = 8 units Condition: 375-409 mg/dl = 10 units Condition: 410-449 mg/dl = 11 units Condition: Greater than 449 call physician Protocol Text: Suggested for: - Patients on Total Daily Insulin Dose of 56-80 units - Patient who are known to be insulin resistant or septic HIGH MEDIUM DOSING ALGORITHM melatonin 3 mg Tablet 3 mg PO QHS PRN PRN (Reason: Insomnia) Qty: 0 0RF alum-mag hydroxide-simeth [Mag-Al Plus Extra Strength] 400-400-40 mg/5 mL Suspension 30 ml PO Q6H PRN PRN (Reason: Gastric Burning) Qty: 0 0RF Referrals / Follow Up: Quentin Kellogg Chi, MD [Primary Care Provider] - Disposition Disposition (needs filled in before D/C Order can be placed): Home Health Service 06/30/242026 <Electronically signed by Quentin Kellogg MD> Cosigner Signature (if applicable): CC: Dr. Quentin Kellogg MD~ Signed [facility] Work Phone: [phone]) 828-782605-13-2025 [facility]05-10-2025 Radiology Diagnostic study [facility]05-06-2025 Telephone encounter Note* Telephone Encounter - Brit Yan RN - 06/23/2024 8:48 AM EDT Amrita MANUEL with [facility] calls to ask if while under our care we noted any developmental delays or concerns with patient. Noted cognitive impairment from 2018 and patient was not able to complete the MMSE. Amrita requesting dates of care that patient was a patient of Dr. Alfaro and asking if patient had ever been seen for anything that would be alarming as abuse. Reviewed notes from 2018 to when care ended with no finding. All questions answered to Amrita's satisfaction. Amrita following up with current PCP (Dr. Kellogg) as well. Brit Yan RN [facility]05-06-2025 Miscellaneous Notes* Telephone Encounter - Brit Yan RN - 06/23/2024 8:48 AM EDT Amrita MANUEL with [facility] calls to ask if while under our care we noted any developmental delays or concerns with patient. Noted cognitive impairment from 2018 and patient was not able to complete the MMSE. Amrita requesting dates of care that patient was a patient of Dr. Alfaro and asking if patient had ever been seen for anything that would be alarming as abuse. Reviewed notes from 2018 to when care ended with no finding. All questions answered to Amrita's satisfaction. Amrita following up with current PCP (Dr. Kellogg) as well. Brit Yan RN [facility] Consult note Author Edward English [facility] Note Date/Time June 19, 2024 10:19a m [facility] Medical Records Department [address] [place] [address] Pre-Anesthesia Evaluation 06/19/24 1018 MR#: [id number] Acct: [id number] Name: ANNETTE MARCOS Rep #:[id number] : 1950 73 From: Edward English MD PCP: Dr. Quentin Kellogg MD Status:ADM I N Y Race: C Location: [place] [address] ASA Classification* ASA Classification ASA Classification: 3 Assessment & Plan Anesthesia* Anesthesia Assessment Anesthesia Assessment: Discussed sedation and/or anesthesia options, risks, benefits, and alternatives with patient/parents/legal guardian/POA. Questions invited. The patient/parents/legal guardian/POA seems to understand and agrees to proceedwith anesthesia plan. Reviewed the physical assessment, medical history, allergy history and patient home medications list prior to surgery/procedure/anesthetic and documented any changes. Performed airway and anesthesia risk assessments. Anesthesia Type Anesthesia Type: MAC Anesthesia Focused Assessment* Temperature: 97.7 F Pulse Rate: 76 Blood Pressure: 117/68 Respiratory Rate: 18 Pulse Ox: 99 Airway Assessment Mouth opens: >3 cm Mallampati Score: II Focused Labs Anesthesia Preop lab: CBC WBC 6.0 K/mm3 (4.4-11.0) 06/18/24 05:09 06/18/24 RBC 3.09 M/mm3 (4.2-5.4) L 06/18/24 05:09 06/18/24 Hgb 10.2 g/dL (12.0-15.0) L 06/18/24 16:35 5 Hct 30.6 % (37-47) L 06/18/24 16:35 06/18/24 Plt Count 208 K/mm3 (150-450) 06/18/24 05:09 06/18/24 CHEMISTRY Potassium 4.8 mmol/L (3.3-5.1) 06/18/24 05:09 06/18/24 Sodium 141 mmol/L (133-145) 06/18/24 05:09 06/18/24 Magnesium 2.0 mg/dL (1.5-2.2) 06/09/24 20:27 06/09/24 Phosphorus 2.9 mg/dL (2.7-4.5) 06/15/24 08:00 06/15/24 BUN 40 mg/dL (4-19) H 06/18/24 05:09 06/18/24 Creatinine 1.25 mg/dL (0.70-1.20) H 06/18/24 05:09 Glucose 131 mg/dL (70-99) H 06/18/24 05:09 06/18/24 POC Glucose 134 mg/dL (74-106) H 06/19/24 06:06 06/19/24 TSH 2.210 uIU/mL (0.300-4.200) 06/10/24 05:06 05/20 05/12 COAG PT 17.5 SECONDS (11.7-14.9) H 06/18/24 05:09 03/14 Pre-Assessment Diagnosis/Proposed Procedure Planned Operative Procedure(s): EGD Anesthesia History 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 When Was Last Pacemaker Check QUESTION #4 FULL TEXT: You/Your Family Experience fever (hyperthermia) with Anesthesia Last Oral Intake Last Oral intake: Last Oral Intake NPO since 00:00 06/19/24 08:00 Meds taken in AM with sips of Yes 06/19/24 08:00 water? Meds patient instructed to Pepcid, Tylenol, and 06/19/24 08:00 take am of surgery Neurotin PONV PONV - corrosion control fitter: PONV - corrosion control fitter Female HX of Motion Sickness HX of N/V After Surgery Non-Smoker Duration of Surgery greater than 60 minutes Number of Risk Factors PONV Score Height & Weight Height & Weight: Anesthesia: Height & Weight Height 5 ft 1 in 06/18/24 14:07 Weight: 79.33 kg 06/19/24 08:00 Body Mass Index (BMI) 33.0 06/18/24 14:07 Respiratory Assessment Respiratory Assessment - corrosion control fitter: Respiratory Tract Infection Hx - corrosion control fitter Hx Respiratory Tract Infection No 06/13/24 00:00 STOP Sleep Apnea STOP Sleep Apnea - corrosion control fitter: STOP Sleep Apnea - corrosion control fitter Hx Hypertension Yes 06/17/24 11:32 Hx Sleep Apnea No 06/15/24 14:53 CPAP No 06/11/24 16:24 BIPAP No 04/15/19 15:10 Do you snore loudly (louder No 06/15/24 14:53 than talking or can be heard Do you often feel tired/ Yes 06/15/24 14:53 fatigued/ sleepy during daytime? Has anyone observed you stop No 06/15/24 14:53 breathing during sleep? STOP Results Positive 06/15/24 14:53 QUESTION #5 FULL TEXT : Do you snore loudly (louder than talking or can be heard through closed doors)? 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 Specify any problems Hx of Preganancy in last 3 No 06/17/24 11:35 Months Nurse Filling Out Transfusion SGESSEL 06/17/24 11:35 & Questions: Date: 06/17/24 06/17/24 11:35 Time: 11:35 06/17/24 11:35 Patient unable to answer at this time (ie. confused, unrespo /Reproduction History /Reproductive History - corrosion control fitter: /Reproductive Hx- corrosion control fitter Hx Now Gestational Age (in weeks): EDC: Hx Hx Para Hx Section SAB Active Medications Active Medications: Current Medications Generic Name Dose Route Start Last Admin Trade Name Freq PRN Reason Stop Dose Admin Acetaminophen 650 mg 06/15/24 14:00 06/19/24 05:42 Acetaminophen 325 Mg Tablet PO 650 mg Q8 IZABELLA Administration Hydrocodone Bitart/Acetaminophen 2 tablet 06/15/24 13:31 06/18/24 17:48 Hydrocodone Bitartrate/Apap 5/325 Tablet PO 2 tablet Q6H PRN PRN Administration Pain Score 4-10 Al Hydroxide/Mg Hydroxide 30 ml 06/15/24 13:31 Mag Hydrox/Al Hydrox/Simeth 30 Ml Udc PO Q6H PRN PRN Gastric Burning Albuterol Sulfate 2.5 mg 06/15/24 13:31 Albuterol 2.5 Mg/3 Ml Vial.Neb. INHALATION Q4H PRN shortness of breath or wheezing Ascorbic Acid 500 mg 06/16/24 10:00 06/18/24 14:41 Ascorbic Acid 500 Mg Tablet PO 500 mg DAILY IZABELLA Administration Atorvastatin Calcium 40 mg 06/15/24 22:00 06/18/24 21:27 Atorvastatin Calcium 40 Mg Tablet PO 40 mg QHS IZABELLA Administration Citalopram Hydrobromide 10 mg 06/16/24 10:00 06/18/24 14:41 Citalopram 10 Mg Tablet PO 10 mg DAILY IZABELLA Administration Famotidine 20 mg 06/17/24 10:00 06/19/24 08:08 Famotidine 20 Mg Tablet PO 20 mg DAILY IZABELLA Administration Ferrous Gluconate 324 mg 06/15/24 17:00 06/18/24 17:48 Ferrous Gluconate 324 Mg Tablet PO 324 mg BIDCM IZABELLA Administration Gabapentin 600 mg 06/15/24 14:00 06/19/24 05:42 Gabapentin 600 Mg Tablet PO 600 mg TID IZABELLA Administration Insulin Glargine 15 unit 06/16/24 22:00 06/18/24 21:27 Insulin Glargine-Yfgn 100 Unit/Ml Pen SC 15 unit BID IZABELLA Administration Insulin Human Lispro 5 unit 06/16/24 12:17 06/18/24 17:47 Insulin Lispro 100 Unit/Ml Insuln.Pen SC 5 units TIDAC IZABELLA Administration Loratadine 10 mg 06/15/24 13:31 Loratadine 10 Mg Tablet PO DAILY PRN allergy symptoms Melatonin 3 mg 06/15/24 13:31 Melatonin 3 Mg Tablet PO QHS PRN PRN Insomnia Methocarbamol 250 - 500 mg 06/15/24 13:31 Methocarbamol 500 Mg Tablet PO BID PRN PRN muscle spasm Pioglitazone HCl 30 mg 06/16/24 10:00 06/18/24 14:41 Pioglitazone Hydrochloride 30 Mg Tablet PO 30 mg DAILY IZABELLA Administration Polyethylene Glycol 17 gm 06/16/24 10:00 06/18/24 14:44 Polyethylene Glycol 3350 17 Gm Packet PO Not Given DAILY IZABELLA Rivaroxaban 15 mg 06/15/24 17:00 06/18/24 15:47 Rivaroxaban 15 Mg Tablet PO Not Given DINNER IZABELLA Fluticasone/Salmeterol 1 puff 06/15/24 22:00 06/19/24 08:08 Fluticasone/Salmeterol 232-14 Inhaler INHALATION 1 puff Q12 IZABELLA Administration Senna/Docusate Sodium 2 tablet 06/15/24 22:00 06/18/24 21:29 Senna/Docusate Sodium 1 Tablet PO Not Given BID IZABELLA Sodium Chloride 10 - 40 ml 06/15/24 13:40 06/17/24 11:46 0.9% Saline Lock 10 Ml Syringe IV 10 ml UD PRN Administration SALINE FLUSH Tolterodine Tartrate 2 mg 06/16/24 10:00 06/18/24 14:42 Tolterodine Tartrate 2 Mg Cap.Sa PO 2 mg DAILY IZABELLA Administration Tuberculin PPD 0.1 ml 06/23/24 10:00 Tuberculin,Purif.Prot.Deriv. 50 Tu/Ml Vial ID 06/23/24 10:01 X1 ONE [facility] Medical History History of echocardiogram Cardiology follow-up encounter Wears dentures Wears glasses Bladder disease Stroke/cerebrovascular accident Insulin dependent diabetes mellitus Arthritis Walker as ambulation aid Bruising Diabetes Former smoker Pulmonary embolism Benign essential HTN Aortic root dilatation Cardiomyopathy Chronic kidney disease, stage 3 Nonrheumatic aortic (valve) stenosis Nonrheumatic tricuspid (valve) insufficiency Nonrheumatic mitral (valve) insufficiency Hemorrhoids Atrophic vaginitis Mixed incontinence Postlaminectomy syndrome (02/01/16) Lung nodule (10/28/14) Lichen simplex chronicus (10/20/10) Left foot drop (04/24/13) Osteoarthritis Lumbar stenosis Degenerative joint disease of right knee History of colitis (10/19/10) Hyperlipidemia History of pulmonary embolus (PE) (10/30/06) Scoliosis Asthma History of DVT (deep vein thrombosis) (10/30/06) Anemia (04/10/17) History of syncope (10/01/17) Paroxysmal atrial fibrillation (03/13/18) DM2 (diabetes mellitus, type 2) Chronic bronchitis Syncope Home Medications ?Medication ?Instructions ?Recorded ?Last Taken ?Type fluticasone 100 mcg-salmeterol 50 1 puff inhalation BI D asthma 01/29/13 Unknown History mcg/dose blistr powdr for inhalation ferrous gluconate 324 mg (37.5 mg 325 mg PO BID iron 0 05/29/18 Unknown History iron) tablet sennosides 8.6 mg-docusate sodium 2 tab PO BID PRN Con stipation 04/15/19 Unknown History 50 mg tablet albuterol sulfate 90 mcg/actuation 2 puff inhalation 4 X/DAY PRN asthma 12/05/21 Unknown History aerosol inhaler famotidine 40 mg tablet 40 mg PO 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 12/05/21 Unknown History cetirizine 10 mg tablet 10 mg PO DAILY PRN allergy s ymptoms 06/21/22 Unknown History gabapentin 600 mg tablet 600 mg PO TID neuropathy 06/10 Unknown History pioglitazone 30 mg tablet 30 mg PO DAILY diabetes 06/10 Unknown History rivaroxaban 15 mg tablet (Xarelto) 15 mg PO DAILY bloo d thinner #90 12/19/22 Unknown Rx tabs atorvastatin 40 mg tablet 40 mg PO DAILY cholesterol # 90 tabs 04/07/24 Unknown Rx solifenacin 5 mg tablet 5 mg PO QDAY overactive blad yenni 05/27/24 Unknown History ascorbic acid (vitamin C) 500 mg 500 mg PO DAILY suppl ement 06/09/24 Unknown History tablet citalopram 10 mg tablet 10 mg PO DAILY mood 06/09/24 Unknown History methocarbamol 500 mg tablet 250 - 500 mg PO BID PRN AK N muscle 06/09/24 Unknown History spasm acetaminophen 325 mg tablet 650 mg (2 x 325 mg) PO Q8 pain #0 06/15/24 Unknown Rx tabs aluminum-mag hydroxide-simethicone 30 ml PO Q6H PRN AK N Gastric 06/15/24 Unknown Rx 400 mg-400 mg-40 mg/5 mL oral susp Burning #0 mL (Mag-Al Plus Extra Strength) hydrocodone-acetaminophen 5-325mg 2 tab PO Q6H PRN PRN Pain Score 06/15/24 Unknown Rx 5mg-325mg 4-10 1 day #3 tabs insulin lispro 100 unit/mL See Protocol subcut ACHS di abetes 06/15/24 Unknown Rx subcutaneous pen (Humalog KwikPen #0 mL (U-100) Insulin) melatonin 3 mg tablet 3 mg PO QHS PRN PRN Insomnia #0 06/15/24 Unknown Rx tabs Allergy/AdvReac Type Severity Reaction Status Date / Time cider vinegar Allergy NEEDS Verified 06/09/24 20:23 FOLLOW-UP cottonseed oil Allergy NEEDS Verified 06/09/24 20:23 FOLLOW-UP grass pollen Allergy NEEDS Verified 06/09/24 20:23 FOLLOW-UP morphine Allergy Unknown Verified 06/09/24 20:23 oxycodone HCl (From Allergy Unknown Verified 06/09/24 20:23 OxyContin) propoxyphene HCl (From Allergy Unknown Verified 06/09/24 20:23 Darvon) wool Allergy NEEDS Verified 06/09/24 20:23 FOLLOW-UP chlorhexidine AdvReac Rash Verified 06/09/24 20:23 feathers AdvReac NEEDS Verified 06/09/24 20:23 FOLLOW-UP Family History Mother CAD (coronary artery disease) DVT (deep venous thrombosis) Hypertension Father Prostate cancer Sister Breast cancer Surgical History History of total right hip replacement (09/17/18) History of total right knee replacement (2008) History of hysterectomy (1999) History of bilateral salpingo-oophorectomy (1999) H/O transurethral destruction of bladder lesion (03/26/14) History of fractured kneecap (2007) History of partial knee replacement (2006) H/O thumb surgery (2003) Status post ORIF of fracture of ankle (1986) H/O tubal ligation (1988) History of laparoscopy (1999) History of lumbar laminectomy (11/05/12) Status post insertion of inferior vena caval filter (10/30/06) History of colonoscopy (05/17/11) History of (1988) Patellar tendon rupture History of knee replacement (09/02/06) Social History household members: family Smoking Status: Former smoker quit date: 02/18/69 alcohol intake: never substance use type: does not use caffeine: Yes Type: coffee Number of servings: 1 Review of Systems (Anesthesia) ROS Narrative System reviewed and no additional complaints, except as documented. 06/19/24 1019 <Electronically signed by Edward English MD > Date _ Edward English MD [facility] Signature: Date CC: ~ Signed [facility] Work Phone: 1(205) 855-972005-02-2025 [facility]04-30-2025 Consult note Author Roney Sher [facility] Note Date/Time June 17, 2024 7:1 0pm [facility] Medical Records Department [address] [place] [id number] Consultation - GI 06/17/24 1907 MR#: [id number] Acct: [id number] Name: ANNETTE MARCOS Rep #:[id number] : 1950 73 From: Roney Sher DO PCP: Dr. Quentin Kellogg MD Status:ADM I N Location: [place] [address] HPI Consult Data Date of Consult: 06/17/24 HPI Narrative Reason for Consultation: Anemia HPI Narrative: ANNETTE MARCOS, is a 73 year old female recently hospitalized for right distal spiral femur fracture, underwent ORIF right distal femur fracture, intramedullary nail retrograde, cerclage wires 06/11/[address] Sivakumar Shannon,admitted to TCU with debility and rehab. I was called to see the patient due todecreasing hemoglobin and Hemoccult positive stools in the setting of progressive iron deficiency anemia while on anticoagulation. She got blood transfusions today. [facility] Medical History Diabetes Former smoker Pulmonary embolism Benign essential HTN Aortic root dilatation Cardiomyopathy Chronic kidney disease, stage 3 Nonrheumatic aortic (valve) stenosis Nonrheumatic tricuspid (valve) insufficiency Nonrheumatic mitral (valve) insufficiency Hemorrhoids Atrophic vaginitis Mixed incontinence Postlaminectomy syndrome (02/01/16) Lung nodule (10/28/14) Lichen simplex chronicus (10/20/10) Left foot drop (04/24/13) Osteoarthritis Lumbar stenosis Degenerative joint disease of right knee History of colitis (10/19/10) Hyperlipidemia History of pulmonary embolus (PE) (10/30/06) Scoliosis Asthma History of DVT (deep vein thrombosis) (10/30/06) Anemia (04/10/17) History of syncope (10/01/17) Paroxysmal atrial fibrillation (03/13/18) DM2 (diabetes mellitus, type 2) Chronic bronchitis Syncope Home Medications ?Medication ?Instructions ?Recorded ?Last Taken ?Type fluticasone 100 mcg-salmeterol 50 1 puff inhalation BI D asthma 01/29/13 Unknown History mcg/dose blistr powdr for inhalation ferrous gluconate 324 mg (37.5 mg 325 mg PO BID iron 0 05/29/18 Unknown History iron) tablet sennosides 8.6 mg-docusate sodium 2 tab PO BID PRN Con stipation 04/15/19 Unknown History 50 mg tablet albuterol sulfate 2.5 mg/3 mL 2.5 mg inhalation Q4H AK N 04/23/19 Unknown History (0.083 %) solution for nebulization shortness of breat h or wheezing albuterol sulfate 90 mcg/actuation 2 puff inhalation 4 X/DAY PRN asthma 12/05/21 Unknown History aerosol inhaler famotidine 40 mg tablet 40 mg PO 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 12/05/21 Unknown History cetirizine 10 mg tablet 10 mg PO DAILY PRN allergy s ymptoms 06/21/22 Unknown History gabapentin 600 mg tablet 600 mg PO TID neuropathy 06/10 Unknown History pioglitazone 30 mg tablet 30 mg PO DAILY diabetes 06/10 Unknown History rivaroxaban 15 mg tablet (Xarelto) 15 mg PO DAILY bloo d thinner #90 12/19/22 Unknown Rx tabs atorvastatin 40 mg tablet 40 mg PO DAILY cholesterol # 90 tabs 04/07/24 Unknown Rx solifenacin 5 mg tablet 5 mg PO QDAY overactive blad yenni 05/27/24 Unknown History ascorbic acid (vitamin C) 500 mg 500 mg PO DAILY suppl ement 06/09/24 Unknown History tablet citalopram 10 mg tablet 10 mg PO DAILY mood 06/09/24 Unknown History methocarbamol 500 mg tablet 250 - 500 mg PO BID PRN AK N muscle 06/09/24 Unknown History spasm acetaminophen 325 mg tablet 650 mg (2 x 325 mg) PO Q8 pain #0 06/15/24 Unknown Rx tabs aluminum-mag hydroxide-simethicone 30 ml PO Q6H PRN AK N Gastric 06/15/24 Unknown Rx 400 mg-400 mg-40 mg/5 mL oral susp Burning #0 mL (Mag-Al Plus Extra Strength) hydrocodone-acetaminophen 5-325mg 2 tab PO Q6H PRN PRN Pain Score 06/15/24 Unknown Rx 5mg-325mg 4-10 1 day #3 tabs insulin lispro 100 unit/mL See Protocol subcut ACHS di abetes 06/15/24 Unknown Rx subcutaneous pen (Humalog KwikPen #0 mL (U-100) Insulin) melatonin 3 mg tablet 3 mg PO QHS PRN PRN Insomnia #0 06/15/24 Unknown Rx tabs Allergy/AdvReac Type Severity Reaction Status Date / Time cider vinegar Allergy NEEDS Verified 06/09/24 20:23 FOLLOW-UP cottonseed oil Allergy NEEDS Verified 06/09/24 20:23 FOLLOW-UP grass pollen Allergy NEEDS Verified 06/09/24 20:23 FOLLOW-UP morphine Allergy Unknown Verified 06/09/24 20:23 oxycodone HCl (From Allergy Unknown Verified 06/09/24 20:23 OxyContin) propoxyphene HCl (From Allergy Unknown Verified 06/09/24 20:23 Darvon) wool Allergy NEEDS Verified 06/09/24 20:23 FOLLOW-UP chlorhexidine AdvReac Rash Verified 06/09/24 20:23 feathers AdvReac NEEDS Verified 06/09/24 20:23 FOLLOW-UP Family History Mother CAD (coronary artery disease) DVT (deep venous thrombosis) Hypertension Father Prostate cancer Sister Breast cancer Surgical History History of total right hip replacement (09/17/18) History of total right knee replacement (2008) History of hysterectomy (1999) History of bilateral salpingo-oophorectomy (1999) H/O transurethral destruction of bladder lesion (03/26/14) History of fractured kneecap (2007) History of partial knee replacement (2006) H/O thumb surgery (2003) Status post ORIF of fracture of ankle (1986) H/O tubal ligation (1988) History of laparoscopy (1999) History of lumbar laminectomy (11/05/12) Status post insertion of inferior vena caval filter (10/30/06) History of colonoscopy (05/17/11) History of (1988) Patellar tendon rupture History of knee replacement (09/02/06) Social History household members: family Smoking Status: Former smoker quit date: 02/18/69 alcohol intake: never substance use type: does not use caffeine: Yes Type: coffee Number of servings: 1 ROS Constitutional Constitutional: Denies fatigue, fever(s), poor appetite, weight gain or weight loss Gastrointestinal Gastrointestinal: Denies belching, bloating, change in bowel habits, change in stool character, chewing difficulty, coffee ground emesis, constipation, cramping, diarrhea, dyspepsia, dysphagia, early satiety, excessive flatus, fecalincontinence, heartburn, hematemesis, hematochezia, hemorrhoids, loose stools, melena, nausea, odynophagia, rectal bleeding, tenesmus, vomiting or weight changes Physical Exam Const alert, oriented x3, no apparent distress and healthy appearing General Appearance: cooperative GI normal to inspection, nondistended, normoactive bowel sounds, soft to palpation,non-tender and non-distended Percussion: normal to percussion Rectal Exam: deferred Lab / Micro Data 06/17/24 05:13 06/17/24 05:13 Labs: Laboratory Results - last 24 hr 06/16/24 21:13: POC Glucose 181 H 06/17/24 05:13: Hgb 6.6 L, Hct 21.4 L, Sodium 140, Potassium 4.7, Chloride 108, Carbon Dioxide 22.4, Anion Gap 10, BUN 43 H, Creatinine 1.09, Estim Creat Clear Calc 43.84 L, Est GFR (MDRD) Non-Af 54 L, BUN/Creatinine Ratio 39.7 H, Glucose 155 H, Calcium 8.7, Triglycerides 83, Cholesterol 120, LDL Cholesterol, Calc 66,VLDL Cholesterol 17, HDL Cholesterol 37 L, Cholesterol/HDL Ratio 3.23 06/17/24 06:10: POC Glucose 135 H 06/17/24 08:50: Blood Type A POSITIVE, Antibody Screen NEGATIVE, Crossmatch See Detail 06/17/24 12:20: POC Glucose 138 H 06/17/24 16:29: POC Glucose 120 H Micro: Microbiology 06/16/24 16:15 Stool Stool Occult Blood (GILBERT) - Final Occult Blood Positive Assessment & Plan Assessment/Plan (1) Iron deficiency anemia: PLAN: [age]-year-old with recent right distal spiral femur fracture status post ORIF with repair and worsening iron deficiency anemia status post blood transfusion on anticoagulation. She will undergo an upper endoscopy to evaluateupper GI tract. She was explained alternatives, risk and benefits including withstanding bleeding, infection, sepsis, perforation, need for emergency or to . She have an ASA of 3. Charges/Coding Visit Charges Inpatient E&M: 86826 SNF Init L2 06/17/241909 <Electronically signed by Roney Friend DO> Cosigner Signature (if applicable): CC: Dr. Quentin Kellogg MD~ Signed [facility] Work Phone: 1(209) 365-561504-29-2025 Progress note Author Sheela Wallis [facility] Note Date/Time June 16, 2024 5:0 0pm [facility] Medical Records Department [address] [facility] [place] [address] Progress Note - Pharmacy 06/16/24 1536 MR#: [id number] Acct: [id number] Name: ANNETTE MARCOS Rep #:[id number] : 1950 73 From: Sheela Wallis PCP: Dr. Quentin Kellogg MD Status:ADM I N Location: TCU [place] [address] Documented by User: Sheela Wallis 06/16/24 16:06 TCU RX Drug Regimen Review Subjective/Objective Subjective/Objective Subjective: TCU Admission. 73 YOF presented to the ER with a fall. Hospitalized for right distal spiral femur fracture, underwent ORIF right distal femur fracture, intramedullary nail retrograde, cerclage wires 06/11/[address] Sivakumar Shannon. Admitted to TCU with debility for strengthening and rehabilitation. Objective: Allergies cider vinegar Allergy (Verified 06/09/24 20:23) NEEDS FOLLOW-UP cottonseed oil Allergy (Verified 06/09/24 20:23) NEEDS FOLLOW-UP grass pollen Allergy (Verified 06/09/24 20:23) NEEDS FOLLOW-UP morphine Allergy (Verified 06/09/24 20:23) Unknown oxycodone HCl (From OxyContin) Allergy (Verified 06/09/24 20:23) Unknown propoxyphene HCl (From Darvon) Allergy (Verified 06/09/24 20:23) Unknown wool Allergy (Verified 06/09/24 20:23) NEEDS FOLLOW-UP chlorhexidine Adverse Reaction (Verified 06/09/24 20:23) Rash feathers Adverse Reaction (Verified 06/09/24 20:23) NEEDS FOLLOW-UP Current Medications Generic Name Dose Route Start Last Admin Trade Name Freq PRN Reason Stop Dose Admin Acetaminophen 650 mg 06/15/24 14:00 06/16/24 13:08 Acetaminophen 325 Mg Tablet PO 650 mg Q8 IZABELLA Administration Hydrocodone Bitart/Acetaminophen 2 tablet 06/15/24 13:31 Hydrocodone Bitartrate/Apap 5/325 Tablet PO Q6H PRN PRN Pain Score 4-10 Al Hydroxide/Mg Hydroxide 30 ml 06/15/24 13:31 Mag Hydrox/Al Hydrox/Simeth 30 Ml Udc PO Q6H PRN PRN Gastric Burning Albuterol Sulfate 2.5 mg 06/15/24 13:31 Albuterol 2.5 Mg/3 Ml Vial.Neb. INHALATION Q4H PRN shortness of breath or wheezing Ascorbic Acid 500 mg 06/16/24 10:00 06/16/24 09:05 Ascorbic Acid 500 Mg Tablet PO 500 mg DAILY IZABELLA Administration Atorvastatin Calcium 40 mg 06/15/24 22:00 06/15/24 22:07 Atorvastatin Calcium 40 Mg Tablet PO 40 mg QHS IZABELLA Administration Citalopram Hydrobromide 10 mg 06/16/24 10:00 06/16/24 09:04 Citalopram 10 Mg Tablet PO 10 mg DAILY IZABELLA Administration Famotidine 20 mg 06/17/24 10:00 Famotidine 20 Mg Tablet PO DAILY IZABELLA Ferrous Gluconate 324 mg 06/15/24 17:00 06/16/24 09:05 Ferrous Gluconate 324 Mg Tablet PO 324 mg BIDCM IZABELLA Administration Gabapentin 600 mg 06/15/24 14:00 06/16/24 13:09 Gabapentin 600 Mg Tablet PO 600 mg TID [facility] Administration Insulin Glargine 15 unit 06/16/24 22:00 Insulin Glargine-Yfgn 100 Unit/Ml Pen SC BID IZABELLA Insulin Human Lispro 5 unit 06/16/24 12:17 06/16/24 12:29 Insulin Lispro 100 Unit/Ml Insuln.Pen SC 5 units TIDAC [facility] Administration Loratadine 10 mg 06/15/24 13:31 Loratadine 10 Mg Tablet PO DAILY PRN allergy symptoms Melatonin 3 mg 06/15/24 13:31 Melatonin 3 Mg Tablet PO QHS PRN PRN Insomnia Methocarbamol 250 - 500 mg 06/15/24 13:31 Methocarbamol 500 Mg Tablet PO BID PRN PRN muscle spasm Pioglitazone HCl 30 mg 06/16/24 10:00 06/16/24 09:05 Pioglitazone Hydrochloride 30 Mg Tablet PO 30 mg DAILY IZABELLA Administration Polyethylene Glycol 17 gm 06/16/24 10:00 06/16/24 09:06 Polyethylene Glycol 3350 17 Gm Packet PO 17 gm DAILY [facility] Administration Rivaroxaban 15 mg 06/15/24 17:00 06/15/24 18:22 Rivaroxaban 15 Mg Tablet PO 15 mg DINNER IZABELLA Administration Fluticasone/Salmeterol 1 puff 06/15/24 22:00 06/16/24 09:06 Fluticasone/Salmeterol 232-14 Inhaler INHALATION 1 puff Q12 IZABELLA Administration Senna/Docusate Sodium 2 tablet 06/15/24 22:00 06/16/24 09:04 Senna/Docusate Sodium 1 Tablet PO 2 tablet BID IZABELLA Administration Sodium Chloride 10 - 40 ml 06/15/24 13:40 06/16/24 09:23 0.9% Saline Lock 10 Ml Syringe IV 10 ml UD PRN Administration SALINE FLUSH Tolterodine Tartrate 2 mg 06/16/24 10:00 06/16/24 09:04 Tolterodine Tartrate 2 Mg Cap.Sa PO 2 mg DAILY IZABELLA Administration Tuberculin PPD 0.1 ml 06/23/24 10:00 Tuberculin,Purif.Prot.Deriv. 50 Tu/Ml Vial ID 06/23/24 10:01 X1 ONE Problem List Overactive bladder (Acute) Low back pain (Acute) Atrial fibrillation (Acute) Iron deficiency anemia (Acute) GERD (gastroesophageal reflux disease) (Acute) Essential (primary) hypertension (Acute) CKD stage 3a, GFR 45-59 ml/min (Chronic) Type 2 diabetes mellitus with hyperglycemia (Acute) Debility (Acute) Hyperlipidemia (Chronic) Vital Signs Temp Pulse Resp BP Pulse Ox O2 Del Method 98.5 F 95 16 123/67 H 99 Room Air 06/16/24 08:16 06/16/24 08:16 06/16/24 08:16 06/16/24 08:16 06/16/24 08:16 06/16/24 08:17 Oxygen Delivery Method Room Air Weight: 79.333 kg Body Mass Index (BMI) 33.0 Sodium 139 mmol/L (133-145) 06/16/24 07:09 Potassium 5.5 mmol/L (3.3-5.1) H 06/16/24 07:09 Chloride 108 mmol/L (98-108) 06/16/24 07:09 Carbon Dioxide 22.3 mmol/L (21.0-32.0) 06/16/24 07:09 Anion Gap 8 (5-15) 06/16/24 07:09 BUN 40 mg/dL (4-19) H 06/16/24 07:09 Creatinine 1.05 mg/dL (0.70-1.20) 06/16/24 07:09 Est GFR (MDRD) Non-Af 56 (>60) L 06/16/24 07:09 BUN/Creatinine Ratio 37.7 RATIO (10-20) H 06/16/24 07:09 Glucose 209 mg/dL (70-99) H 06/16/24 07:09 Assessment/Plan: 1. Pain: Acetaminophen 650mg PO Q8H, Hydrocodone/acetaminophen 5/325mg 2T PO Q6HPRN pain (4-10). Continue to monitor for increased pain, LFTs (last on 06/10/24),falls/fractures (s), constipation (last documented bowel movement on 06/14/24), and PRN usage. Resident has had no doses of hydrocodone/acetaminophen.Pain appears to be managed at this time. 2. Bowel: Miralax 17g PO daily, senna/docusate 2T PO BID. Continue to monitor for constipation and/or diarrhea. Last documented bowel movement on 06/14/24. 3. COPD: Fluticasone/Salmeterol 232-14 1 puff PO Q12H, Albuterol 2.5mg [id number] PRN wheezing. Continue to monitor for shortness of breath, thrush, tachycardia (HR 95 bpm on 06/16/24). Resident has had no doses of albuterol. Residents shortness of breath appears to be managed at this time. Please rinse mouth with water and spit following fluticasone administration to prevent thrush. 4. Atrial fibrillation/DVT prophylaxis: Rivaroxaban 15mg PO with dinner. Continue to monitor for s/sx of bleeding, H/H (Hgb 6.7g/dL, Hct 21.1% on 06/16/24), renal function (CrCl 45.5ml/min, SCr 1.05mg/dL on 06/16/24) and platelets (PLT 175 on 06/16/24). 5. Hyperlipidemia: Atorvastatin 40mg PO QHS. Please consider ordering a lipid panel as the last panel was from 2020. Thanks. Continue to monitor LFTs and muscle pain. 6. Diabetes Mellitus II: Pioglitozone 30mg PO daily, insulin lispro 5 units SC TID and insulin glargine 15mg SC BID. Insulins added on this morning. Continue to monitor for heart failure/edema (s), hemoglobin A1c (last 7.2% 06/10/24), S/S of hypoglycemia, glucose (last 281mg/dL) and LFTs (last on 06/10/24). 7. Overactive bladder: Tolterodine 2mg PO daily. Continue to monitor for delirium/cognitive impairment (BEERs). 8. GERD: Famotidine 20mg PO daily, Mylanta 30mL PO Q6H PRN gastric burning. Continue to monitor delirium (BEERs), constipation, renal function (famotidine adjusted for renal function) and PRN usage. Resident has had no doses of Mylanta. Gastric burning appears to be managed at this time. 9. Muscle spasm: Methocarbamol 250mg - 500mg PO BID PRN. Continue to monitor foranticholinergic effects, falls/fractures (BEERs), BIOFUELS ENGINEERING MANAGER effects and PRN usage. Resident has had no doses of methocarbamol. Muscle spasms appear to be managed at this time. 10. Diabetic polyneuropathy: Gabapentin 600mg PO TID. Continue to monitor for BIOFUELS ENGINEERING MANAGER effects, confusion, respiratory depression, falls/fractures (BEERs) and CrCl(last 45.5ml/min on 06/16/24). Consider dose reduction due to renal clearance (suggested is 400-1400mg/day in 2 divided doses). Thanks. 11. Iron deficiency anemia: Iron 325mg PO BID, Vitamin C 500mg PO daily. Continue to monitor iron studies (last on 06/16/24), hemoglobin, dark stools, constipation. 12. Insomnia: Melatonin 3mg PO QHS PRN insomnia. Continue to monitor for insomnia improvement, daytime drowsiness and PRN usage. Resident has had no doses of melatonin. Insomnia appears to be managed at this time. 13.Allergic rhinitis: Loratadine 10mg PO daily PRN allergy symptoms. Continue tomonitor for allergy symptoms and PRN usage (no doses given so far). Assessment/Plan for indications treated with psychotropic medications: 1. Depression: Citalopram 10mg PO daily. Please see physician note regarding GDR. Monitor for diarrhea, nausea, headache, anxiety or drowsiness, suicidal thoughts or behaviors (Boxed Warning), symptoms of bleeding, symptoms of serotonin syndrome (including agitation, confusion, hyperreflexia, rigidity/myoclonus, tremor, tachycardia, tachypnea), sodium levels (last Na = 139mmol/L 06/16/24), QTc on last ECG = 378 06/10/24 and falls/fractures (BEERs). Monitor for efficacy including resident symptoms, behaviors and indications of distress. Monitor for tolerability including mental status, cognition, excessive sleepiness, withdrawal or decreased participation in activities and decline in physical functioning. Maximize use of nonpharmacologic/behavioral interventions to facilitate dose reduction or discontinuation as appropriate. Please evaluate the appropriateness of GDR unless contraindicated. If appropriate, GDR should be attempted in 2 separate quarters within the first year of use or admission to TCU. If GDR attempted, monitor resident symptoms/behaviors. Medical chart and medication regimen reviewed. The following medication irregularities or issues were identified: 1. Atorvastatin 40mg PO QHS. Please consider ordering a lipid panel as the last panel was from 2020. Thanks. 2. Gabapentin 600mg PO TID. Please consider dose reduction due to renal clearance to prevent BIOFUELS ENGINEERING MANAGER effects. Suggested dosing is 400-1400mg/day in 2 divided doses. Thanks. Date Date of Note: 06/16/24 Documented by User: Dr. Quentin Kellogg MD 06/16/24 17:00 TCU RX Drug Regimen Review Provider Comments Provider responsibility Provider Comments to Recommendations by Pharmacy Disagree: Define (Will order Lipid panel, but keep gabapentin dose the same because she has been stable and done well on current dose.) 06/16/24 1606 <Electronically signed by Sheela Wallis> Sheela Hoffman Signature (if applicable): 06/16/24 1700 <Electronically signed by Quentin Kellogg MD> CC: ~ Signed [facility] Work Phone: [phone]) 546-675804-28-2025 History and physical note Author Quentin Kellogg [facility] Note Date/Time June 15, 2024 5:1 4pm [facility] Medical Records Department [address] [place] [address] History & Physical Exam 06/15/24 1359 MR#: [id number] Acct: [id number] Name: ANNETTE MARCOS Rep #:[id number] : 1950 73 From: Quentin Kellogg MD PCP: Dr. Quentin Kellogg MD Status:ADM I N Location: [facility] [address] - General General Date of Admission: 06/15/24 Date of Service: 06/15/24 Chief Complaint: Here for rehabilitation. HPI Narrative ANNETTE MARCOS, is a 73 Female who presents with followin06/09/2024 [facility] ED fall. Tripped over dog, fell, right hip pain, right knee pain. X-ray showed right distal femur spiral fracture. 06/09/2024 Admit [facility]. Pain control, PT/OT, prepare for surgery for right femur fracture. Hold DOAC, history of DVT/PE. Hold Pioglitazone, start SSI for Diabetes Mellitus II. 06/10/2024 Dr. Shannon recommended ORIF using a long plate or IM topher with possiblecerclage. 06/10/2024 No distress. Surgery tomorrow. Xarelto on hold to prepare for surgery. 06/11/2024 Dr. Shannon performed ORIF right distal femur fracture, intramedullary nail retrograde, cerclage wires. 06/11/2024 Resume Xarelto tomorrow. Insulin SSI for Diabetes mellitus II. 06/12/2024 Hemoglobin 8, Right leg discomfort. Xarelto for atrial fibrillation and dvt prophylaxis. 06/13/2024 Right leg pain after surgery. PT/OT, patient requested TCU. 06/14/2024 Check H&H. Pre-CERT for TCU. 06/15/2024 Pre-CERT for TCU. 06/15/2024 Admit to TCU with debility, here for rehabilitation, strengthening, prior to discharge home with family. [facility] Medical History Diabetes Former smoker Pulmonary embolism Benign essential HTN Aortic root dilatation Cardiomyopathy Chronic kidney disease, stage 3 Nonrheumatic aortic (valve) stenosis Nonrheumatic tricuspid (valve) insufficiency Nonrheumatic mitral (valve) insufficiency Hemorrhoids Atrophic vaginitis Mixed incontinence Postlaminectomy syndrome (02/01/16) Lung nodule (10/28/14) Lichen simplex chronicus (10/20/10) Left foot drop (04/24/13) Osteoarthritis Lumbar stenosis Degenerative joint disease of right knee History of colitis (10/19/10) Hyperlipidemia History of pulmonary embolus (PE) (10/30/06) Scoliosis Asthma History of DVT (deep vein thrombosis) (10/30/06) Anemia (04/10/17) History of syncope (10/01/17) Paroxysmal atrial fibrillation (03/13/18) DM2 (diabetes mellitus, type 2) Chronic bronchitis Syncope Home Medications ?Medication ?Instructions ?Recorded ?Last Taken ?Type fluticasone 100 mcg-salmeterol 50 1 puff inhalation BI D asthma 01/29/13 Unknown History mcg/dose blistr powdr for inhalation ferrous gluconate 324 mg (37.5 mg 325 mg PO BID iron 0 05/29/18 Unknown History iron) tablet sennosides 8.6 mg-docusate sodium 2 tab PO BID PRN Con stipation 04/15/19 Unknown History 50 mg tablet albuterol sulfate 2.5 mg/3 mL 2.5 mg inhalation Q4H AK N 04/23/19 Unknown History (0.083 %) solution for nebulization shortness of breat h or wheezing albuterol sulfate 90 mcg/actuation 2 puff inhalation 4 X/DAY PRN asthma 12/05/21 Unknown History aerosol inhaler famotidine 40 mg tablet 40 mg PO 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 12/05/21 Unknown History cetirizine 10 mg tablet 10 mg PO DAILY PRN allergy s ymptoms 06/21/22 Unknown History gabapentin 600 mg tablet 600 mg PO TID neuropathy 06/10 Unknown History pioglitazone 30 mg tablet 30 mg PO DAILY diabetes 06/10 Unknown History rivaroxaban 15 mg tablet (Xarelto) 15 mg PO DAILY bloo d thinner #90 12/19/22 Unknown Rx tabs atorvastatin 40 mg tablet 40 mg PO DAILY cholesterol # 90 tabs 04/07/24 Unknown Rx solifenacin 5 mg tablet 5 mg PO QDAY overactive blad yenni 05/27/24 Unknown History ascorbic acid (vitamin C) 500 mg 500 mg PO DAILY suppl ement 06/09/24 Unknown History tablet citalopram 10 mg tablet 10 mg PO DAILY mood 06/09/24 Unknown History methocarbamol 500 mg tablet 250 - 500 mg PO BID PRN AK N muscle 06/09/24 Unknown History spasm acetaminophen 325 mg tablet 650 mg (2 x 325 mg) PO Q8 pain #0 06/15/24 Unknown Rx tabs aluminum-mag hydroxide-simethicone 30 ml PO Q6H PRN AK N Gastric 06/15/24 Unknown Rx 400 mg-400 mg-40 mg/5 mL oral susp Burning #0 mL (Mag-Al Plus Extra Strength) hydrocodone-acetaminophen 5-325mg 2 tab PO Q6H PRN PRN Pain Score 06/15/24 Unknown Rx 5mg-325mg 4-10 1 day #3 tabs insulin lispro 100 unit/mL See Protocol subcut ACHS di abetes 06/15/24 Unknown Rx subcutaneous pen (Humalog KwikPen #0 mL (U-100) Insulin) melatonin 3 mg tablet 3 mg PO QHS PRN PRN Insomnia #0 06/15/24 Unknown Rx tabs Allergy/AdvReac Type Severity Reaction Status Date / Time cider vinegar Allergy NEEDS Verified 06/09/24 20:23 FOLLOW-UP cottonseed oil Allergy NEEDS Verified 06/09/24 20:23 FOLLOW-UP grass pollen Allergy NEEDS Verified 06/09/24 20:23 FOLLOW-UP morphine Allergy Unknown Verified 06/09/24 20:23 oxycodone HCl (From Allergy Unknown Verified 06/09/24 20:23 OxyContin) propoxyphene HCl (From Allergy Unknown Verified 06/09/24 20:23 Darvon) wool Allergy NEEDS Verified 06/09/24 20:23 FOLLOW-UP chlorhexidine AdvReac Rash Verified 06/09/24 20:23 feathers AdvReac NEEDS Verified 06/09/24 20:23 FOLLOW-UP Family History Mother CAD (coronary artery disease) DVT (deep venous thrombosis) Hypertension Father Prostate cancer Sister Breast cancer Surgical History History of total right hip replacement (09/17/18) History of total right knee replacement (2008) History of hysterectomy (1999) History of bilateral salpingo-oophorectomy (1999) H/O transurethral destruction of bladder lesion (03/26/14) History of fractured kneecap (2007) History of partial knee replacement (2006) H/O thumb surgery (2003) Status post ORIF of fracture of ankle (1986) H/O tubal ligation (1988) History of laparoscopy (1999) History of lumbar laminectomy (11/05/12) Status post insertion of inferior vena caval filter (10/30/06) History of colonoscopy (05/17/11) History of (1988) Patellar tendon rupture History of knee replacement (09/02/06) Social History (Updated 06/15/24 @ 15:[address] Quentin Kellogg MD) household members: family Smoking Status: Former smoker quit date: 02/18/69 alcohol intake: never substance use type: does not use caffeine: Yes Type: coffee Number of servings: 1 ROS Constitutional Constitutional: Reports weakness; Denies chills, fever(s) or weight gain ENT HEENT: Denies headache(s), nasal congestion or nasal discharge Cardiovascular Cardiovascular: Denies chest pain or palpitations Respiratory/Chest Respiratory/Chest: Denies cough, excessive phlegm production or shortness of breath with exertion Gastrointestinal Gastrointestinal: Denies abdominal pain, nausea or vomiting Genitourinary Genitourinary: Denies dysuria Musculoskeletal Musculoskeletal: Denies joint pain or joint swelling Integumentary Integumentary: Denies rash or wounds Neurologic Neurologic: Denies focal weakness, numbness or tingling Psychiatric Psychiatric: Denies anxiety, auditory hallucinations, depression, homicidal ideation or suicidal ideation Physical Exam Const alert General Appearance: cooperative HEENT normocephalic Eyes PERRL and EOMs intact bilaterally Neck supple, no JVD and no carotid bruits Resp normal respiratory effort, normal air movement and clear to auscultation bilaterally Cardio regular rate and regular rhythm GI normal to inspection, nondistended, normoactive bowel sounds, non-tender and non-distended Extremity normal capillary refill General Extremity: Negative for edema Skin no rashes or lesions noted General Skin Exam: no breakdown Psych affect normal Appearance: appropriate Assessment & Plan Assessment/Plan (1) Debility: (2) Closed right femoral fracture: (3) Type 2 diabetes mellitus with hyperglycemia: (4) CKD stage 3a, GFR 45-59 ml/min: (5) Essential (primary) hypertension: (6) Hyperlipidemia: QUALIFIERS: Hyperlipidemia type: mixed hyperlipidemia Qualified Code(s): E78.2 - Mixed hyperlipidemia (7) GERD (gastroesophageal reflux disease): (8) Iron deficiency anemia: (9) Atrial fibrillation: (10) Low back pain: (11) Overactive bladder: PLAN: Plan 73 year old female with below past medical history hospitalized for right distalspiral femur fracture, underwent ORIF right distal femur fracture, intramedullary nail retrograde, cerclage wires 06/11/[address] Sivakumar Shannon,admitted to TCU with debility, here for rehabiltation, strengthening, prior to discharge home with family. * Debility - PT/OT. * Pain - Tylenol 650mg q8, [place] 5/325mg 2 tabs q6 prn. * Bowel - Miralax 17gm daily, senna/colace 2 tablets bid. * Adult immunization - Administer pneumonia vaccine, covid vaccine, flu vaccine as appropriate * DVT prophylaxis - on Xarelto. * COPD - Fluticasone/Salmeterol 232-14 1 puff q12, Albuterol 2.5mg neb q4 prn. * Atrial fibrillation - Xarelto 15mg daily. * Overactive bladder - Tolterodine 2mg daily. * Iron deficiency anemia - Iron 325mg bidcm, Vitamin C 500mg daily. * Hyperlipidemia - Atorvastatin 40mg qhs. * Depression - Citalopram 10mg daily, stable chronic snf use, GDR not recommended. * GERD - Famotidine 40mg daily, Mylanta 30mL q6 prn. * Diabetes Mellitus II - Zain 30mg daily. * Diabetic polyneuropathy - Gabapentin 600mg tid. * Allergic rhinitis - Loratadine 10mg daily prn. * Insomnia - Melatonin 3mg qhs prn. * Muscle spasm - Robaxin 250mg to 500g bid prn. 06/15/24 1552 <Electronically signed by Quentin Kellogg MD> Cosigner Signature (if applicable): CC: Dr. Quentin Kellogg MD~ Signed ADDENDUM by Dr. Quentin Kellogg MD on 06/15/24 at 1606 Addendum The following psychotropic medication was present on admission: Citalopram. Psychotropic medication therapy is indicated for a diagnosis of: Depression. Based on my clinical evaluation, continuation of the medication is necessary at this time. Gradual dose reduction plan (select one): ____ GDR will be attempted. Will monitor patient symptoms and behaviors in response to GDR. __x__ GRD contraindicated. Reason contraindicated: stable director long term care medication use. 06/15/24 1606<Electronically signed by Quentin Kellogg MD> Cosigner Signature (if applicable): cc: Dr. Quentin Kellogg MD ~* Signed ADDENDUM by Dr. Quentin Kellogg MD on 06/15/24 at 1713 Addendum Diabetes Mellitus II - Zain 30mg daily, Dr. Shannon requested blood sugars below 180, will add Glargine 10 units bid, continue monitor and adjust. 06/15/24 1713<Electronically signed by Quentin Kellogg MD> Cosigner Signature (if applicable): cc: Dr. Quentin Kellogg MD ~* Signed [facility] Work Phone: 1(247) 652-471104-28-2025 [facility]04-28-2025 [facility]04-17-2025 Telephone encounter Note* Telephone Encounter - Cira Shaver RN - 06/04/2024 4:06 PM EDT Please contact patient to schedule appt with Dr. Escobar. Cira Shaver RN [facility]04-17-2025 Telephone encounter Note* Telephone Encounter - Cira Shaver RN - 06/04/2024 4:06 PM EDT Images from the original note were not included. Argelia Thomson MD Giauque, Trisha, RN Patient needs to see for an appointment to get colonoscopy scheduled. Thanks! Argelia [facility]04-17-2025 Miscellaneous Notes* Telephone Encounter - Cira Shaver RN - 06/04/2024 4:06 PM EDT Please contact patient to schedule appt with Dr. Escobar. Cira Shaver RN * Telephone Encounter - Cira Shaver RN - 06/04/2024 4:06 PM EDT Images from the original note were not included. Argelia Thomson MD Giauque, Trisha RN Patient needs to see for an appointment to get colonoscopy scheduled. Thanks! Argelia [facility] Instructions* Patient Instructions* Argelia Thomson MD - 06/04/2024 12:07 PM EDT COLONOSCOPY BOWEL PREPARATION INSTRUCTIONS GOLYTELY/NULYTELY/TRILYTE/COLYTE Your doctor has scheduled you for a colonoscopy. To have a successful colonoscopy, you must have a clean colon, that is empty. A clean colon allows your doctor to see the entire colon & diagnose issues like polyps or cancer. For doctors, a clean colon is like driving on a kvng day; a dirty colon like driving in a storm. It is very important that you follow these instructions exactly, or your colonoscopy might not be as effective, could be canceled, and you may need to do the bowel prep and the colonoscopy again. TRANSPORTATION REQUIREMENTS You are receiving IV sedation. For your safety, a responsible adult escort must accompany you to and from your procedure: Your adult escort MUST be present with you at check-in for your colonoscopy. Your adult escort MUST remain in the endoscopy area until you are discharged. Your adult escort MUST transport you home once you are discharged. You are NOT allowed to operate any form of transportation (i.e. drive a car, bicycle, etc.) or leave the Endoscopy Center ALONE. It is not safe to do so. If you cannot meet these requirements, your procedure will be canceled. MEDICATION REQUIREMENTS For your safety, certain medications will need to be stopped or adjusted before you can have your procedure: BLOOD THINNERS: If you take blood thinners, such as Coumadin (warfarin), Plavix (clopidogrel), Ticlid (ticlopidine hydrochloride), Agrylin (anagrelide), Xarelto (Rivaroxaban), Pradaxa (Dabigatran), Eliquis (Apixaban), or Effient (Prasugrel), contact the physician who is prescribing these medications at least 2 weeks prior to your procedure to discuss any necessary adjustments. DIABETES: If you take medications for diabetes, your dosage may need to be adjusted. If you are being treated for diabetes with insulin, diabetic pills, or other injectable medicationsdo not take your REGULAR dose after midnight on the day of your procedure. If you are taking any other types of insulin such as Lantus, Humalog, NPH (long- acting insulin), or70/30 insulin, take half your normal dose the day before your procedure. DIABETES/WEIGHT MANAGEMENT: If you take medications for weight-loss, your dosage may need to be adjusted Contact the doctor who prescribes this medication for further instructions. If you take medications for weight-loss like semaglutide (Ozempic, Wegovy, Rybelsus), dulaglutide (Trulicity), liraglutide (Victoza, Saxenda), exenatide (Byetta, Bydureon), or lixisenatide (Adylyxin), stop your medication 1 week prior to your procedure. If you take medications like canagliflozin (Invokana), dapagliflozin (Farxiga, Forxiga), empagliflozin (Jardiance), stop your medication 3 days prior to your procedure. If you take ertugliflozin (Steglatro) stop your medication 4 days prior to your procedure. IRON: If you take iron pills, STOP them 1 week BEFORE your procedure, may resume after. OTHER MEDS: May take all other medications (including aspirin, antibiotics, water pills / diureticslike Lasix or Metolozone, blood pressure meds, etc.) at their usual scheduled time with a sip of water. DIET REQUIREMENTS The day before your colonoscopy, you may have a clear liquid diet (see below). The day of your colonoscopy, you may continue a clear liquid diet until 3 hours before your colonoscopy. Within 3 hours of your colonoscopy, take only any medications (as above) with a sip of water. Clear Liquid Diet Broth (chicken, beef or vegetable broth or bullion. Just the broth, no solids). Water Coffee or Tea (NO milk or creamer), but sugar and sugar substitutes are allowed. Clear liquids including clear, yellow, green, blue (NO red, NO orange, NO purple) Sodas / soft drinks Gatorade or other sports drinks Ming-Aid or flavored drinks Plain Jell-O or other gelatins Fruit juice (strained; no-pulp) Popsicles or hard candy BOWEL PREPARATION (GOLYTELY/NULYTELY/TRILYTE/COLYTE) Split Dosing Bowel Prep: This means drinking your bowel prep in two doses. Split dosing helps cleanyour colon better and makes it less likely that your procedure will be canceled. Fill your prescription for Golytely/Nulytely/Trilyte/Colyte: The afternoon before your colonoscopy, mix the solution and refrigerate. You may add the flavor pack (if present) that came with the bowel preparation. Do not add ice, sugar, or other flavorings to the solution. You will drink your prep in two doses, by several hours. On the evening before your colonoscopy: 1. 6 PM drink the first half of the bowel preparation solution. Drink one 8-ounce glass every 15 minutes. 2. Six hours before your colonoscopy, drink the second half of the solution. Drink one 8-ounce glass every 15 minutes. 3. You may continue a clear liquid diet until 3 hours before your colonoscopy. Bowel prep can work differently from person to person. Some people's bowels move slowly and they may need different instructions. Please see your doctor in office or virtually for personalized bowel prep instructions if you have: Medical condition that needs special accommodations Had a poor bowel prep results or failed bowel prep attempts in the past. Had difficulty with anesthesia during the procedure. FREQUENTLY ASKED QUESTIONS Q: What if I suffer from constipation? A: Recommend taking extra laxatives to resolve your constipation days prior to entering the bowel prep day. Q: What if have had prior poor preps results in past? A: Contact your physician as you will likely need additional bowel prep instructions. Q: What if I have motility issues like Parkinson's, MS (multiple sclerosis), wheelchair dependent, etc.? or on medications that slow bowel emptying (narcotics, gabapentin, anticholinergic medicationsetc.) A: Contact your physician as you will likely need extra time and additional laxatives to complete your bowel prep. Q: What if I cannot drink large volume of liquid? A: Start your prep 2-3 hours earlier to allow yourself more time to complete the entire prep. Q: What if I can't finish my bowel prep? A: If you cannot finish your entire bowel prep, it is likely that your colonoscopy will need to be rescheduled due to poor prep quality. Q: What if I had bariatric surgery? Do I still have to complete the entire prep? A: Yes, gastric bypass surgery involves the stomach & small bowel. You may need to drink smaller amounts, slower (may need more time to complete your bowel prep). Gastric bypass does not alter the length of your colon so you will need to complete the entire bowel prep, it may just take longer time to complete it. Q: What if I am on dialysis? A: Please consult your oven equipment repairer prior to scheduling to get instructions pertinent to you. In general, dialysis patients take the Golytely bowel prep and have the procedure same day of their dialysis (colonoscopy in AM, dialysis in PM). Q: How do I know if something is considered as clear liquid diet? A: If you can pour it in a glass and you can see through it, it is considered clear liquid Q: Can I eat nuts, seeds, beans, popcorn, dried fruits, vegetables & fruits that have skin peel? A: No, you will need to not eat these items starting 3 days prior to procedure. Q: Can I take Uber/Lyft/taxi/bus home? A: An adult MUST be present with you at check-in for your colonoscopy and remain in the endoscopy area until you are discharged. You can take Uber home only if this adult escort is with you at check in, remain in the endoscopy area until you are discharged, and takes the Uber with you to home. Q: Can I sleep it off here and drive myself home? A: No, you must have an adult with you at time of procedure check in, remain in the endoscopy center during your procedure, and drive you home. You cannot drive a vehicle after your procedure the rest of the day. documented in this encounterSt. [facility] NoteHNO ID: [id number] Author: ARGELIA THOMSON MD Service: ? Author Type: Physician Type: Progress Notes Filed: 06/04/2024 12:11 Note Text: Distributed Generation Project Manager offered: Patient declines. Annette is a 73 year old who presents for an annual gynecologic exam without complaints. Postmenopausal: hysterectomy HRT use: No. Age at Menarche: 12-13 Still get period: No LMP: n/a Menses: no menses, hysterectomy Menstrual flow: N/A Bleeding amount bothersome: N/A Bleeding between periods: N/A Period symptoms: N/A Sexually active: No Contraception: Other hysterectomy Contraception frequency: Always HPV vaccine: No Last pap smear: 11/28/2004, normal History of abnormal pap: No Colposcopy: No. Leep: No. Cone biopsy: No. Bothersome pelvic pain: No Last mammogram: 2023 normal History of abnormal mammogram: Yes OB History Gravida3 Para3 Term0 Preterm0 AB0 Living3 SAB0 IAB0 Ectopic0 Multiple0 Live Births0 Comment: 2 vaginal deliveries 1 section FAMILY HISTORY Problem Relation Age of Onset Blood Disease Mother blood clot, coumadin Hypertension Mother Coronary Artery Disease Mother 84 Cancer Father poss bladder Prostate Cancer Father Breast Cancer Sister 64 None Sister None Sister Diabetes Paternal Grandmother Colon Cancer Paternal Grandmother Stroke Paternal Grandfather Diabetes Paternal Grandfather Cancer Maternal Grandfather LEUKEMIA Cancer Maternal Uncle Psychiatry Sister anxiety SOCIAL HISTORY Social History Tobacco Use Smoking status: Former Current packs/day: 0.00 Types: Cigarettes Quit date: 02/18/1969 Years since quittin.3 Smokeless tobacco: Never Tobacco comments: Pt smoked 1-2 cigarettes daily x 1-2 years. Vaping Use Vaping status: Never Used Substance Use Topics Alcohol use: No Drug use: No REVIEW OF SYSTEMS Abdomen: No abdominal pain, nausea, vomiting, diarrhea, or constipation. No bloating, early satiety, indigestion, or increased flatulence. Bladder: sees Breast: No breast lumps, nipple d/c, overlying skin changes, redness or skin retraction Allergies and current medication updated:Yes SENSITIVE EXAM: The sensitive examination was discussed with the Patient or Patient's Authorized Ceramic Coater. As applicable, any other physician, advance practice provider, medical student, or other health professional student that will be observing or involved in the sensitive examination for educational or training purposes was discussed with the Patient or Authorized Ceramic Coater. The Patient or Authorized Ceramic Coater has agreed to proceed with the sensitive examination. (Sensitive examination includes inspection and/or palpation of the breasts, pelvis, prostate and anorectal regions). EXAM: BP 110/72 Wt 169 lb 6.4 oz (76.8kg) GENERAL: pleasant, female in no apparent distress BREAST: soft, non-tender, symmetric, no dominant mass, normal nipple-areolar complex, no lymphadenopathy, and no nipple discharge CHEST: Normal inspiratory effort ABDOMEN: soft, non-tender, and no masses PELVIC: external genitalia normal, no vulvar lesions, no cervical lesions, normal appearing perineal body and perianal region; atrophic vagina BIMANUAL: uterus normal size, shape and consistency, no adnexal masses, and non-tender RECTOVAGINAL: deferred. NEURO: alert and oriented x3,exam grossly non-focal EXTREMITIES: normal ASSESSMENT/PLAN: 1) Health maintenance: Pap/HPV screening no longer needed Mammogram up to date Nutrition, exercise and routine health maintenance exams reviewed. Colon cancer screening: messaged about colonoscopy 2) Follow up one year or sooner as needed 3) Atrophic vaginitis - declines treatment Argelia Thomson [facility]04-17-2025 History of Present illness Narrative* Argelia Thomson MD - 06/04/2024 10:18 AM EDT Distributed Generation Project Manager offered: Patient declines. Annette is a 73 year old who presents for an annual gynecologic exam without complaints. Postmenopausal: hysterectomy HRT use: No. Age at Menarche: 12-13 Still get period: No LMP: n/a Menses: no menses, hysterectomy Menstrual flow: N/A Bleeding amount bothersome: N/A Bleeding between periods: N/A Period symptoms: N/A Sexually active: No Contraception: Other hysterectomy Contraception frequency: Always HPV vaccine: No Last pap smear: 11/28/2004, normal History of abnormal pap: No Colposcopy: No. Leep: No. Cone biopsy: No. Bothersome pelvic pain: No Last mammogram: 2023 normal History of abnormal mammogram: Yes OB History Gravida3 Para3 Term0 Preterm0 AB0 Living3 SAB0 IAB0 Ectopic0 Multiple0 Live Births0 Comment: 2 vaginal deliveries 1 section FAMILY HISTORY Problem Relation Age of Onset Blood Disease Mother blood clot, coumadin Hypertension Mother Coronary Artery Disease Mother 84 Cancer Father poss bladder Prostate Cancer Father Breast Cancer Sister 64 None Sister None Sister Diabetes Paternal Grandmother Colon Cancer Paternal Grandmother Stroke Paternal Grandfather Diabetes Paternal Grandfather Cancer Maternal Grandfather LEUKEMIA Cancer Maternal Uncle Psychiatry Sister anxiety SOCIAL HISTORY Social History Tobacco Use Smoking status: Former Current packs/day: 0.00 Types: Cigarettes Quit date: 02/18/1969 Years since quittin.3 Smokeless tobacco: Never Tobacco comments: Pt smoked 1-2 cigarettes daily x 1-2 years. Vaping Use Vaping status: Never Used Substance Use Topics Alcohol use: No Drug use: No REVIEW OF SYSTEMS Abdomen: No abdominal pain, nausea, vomiting, diarrhea, or constipation. No bloating, early satiety, indigestion, or increased flatulence. Bladder: sees Breast: No breast lumps, nipple d/c, overlying skin changes, redness or skin retraction Allergies and current medication updated:Yes SENSITIVE EXAM: The sensitive examination was discussed with the Patient or Patient's Authorized Ceramic Coater. As applicable, any other physician, advance practice provider, medical student, or other health professional student that will be observing or involved in the sensitive examination for educational or training purposes was discussed with the Patient or Authorized Ceramic Coater. The Patient or Authorized Ceramic Coater has agreed to proceed with the sensitive examination. (Sensitive examination includes inspection and/or palpation of the breasts, pelvis, prostate and anorectal regions). EXAM: BP 110/72 Wt 169 lb 6.4 oz (76.8kg) GENERAL: pleasant, female in no apparent distress BREAST: soft, non-tender, symmetric, no dominant mass, normal nipple-areolar complex, no lymphadenopathy, and no nipple discharge CHEST: Normal inspiratory effort ABDOMEN: soft, non-tender, and no masses PELVIC: external genitalia normal, no vulvar lesions, no cervical lesions, normal appearing perineal body and perianal region; atrophic vagina BIMANUAL: uterus normal size, shape and consistency, no adnexal masses, and non-tender RECTOVAGINAL: deferred. NEURO: alert and oriented x3,exam grossly non-focal EXTREMITIES: normal ASSESSMENT/PLAN: 1) Health maintenance: Pap/HPV screening no longer needed Mammogram up to date Nutrition, exercise and routine health maintenance exams reviewed. Colon cancer screening: messaged about colonoscopy 2) Follow up one year or sooner as needed 3) Atrophic vaginitis - declines treatment Argelia Thomson MD documented in this encounterSt. [facility] Evaluation note* Diagnosis Onset Date Resolution Status Admit Date Aortic root dilatation chronic Ap ril 2024 8:45am Benign essential HTN chronic Apri l 2024 8:45am Cardiomyopathy chronic May 27, 2024 8:45am Chronic kidney disease, stage 3 chronic May 27, 2024 8:45am Hyperlipidemia chronic May 27, 2024 8:45am Nonrheumatic aortic (valve) stenosis chronic May 27, 2024 8:45am Paroxysmal atrial fibrillation March 13, 2018 chronic May 27 8:45am [facility] Work Phone: 1(518) 289-813204-09-2025 Evaluation note* Diagnosis Onset Date Resolution Status Admit Date Aortic root dilatation chronic Ap ril 2024 8:45am Benign essential HTN chronic Apri l 2024 8:45am Cardiomyopathy chronic May 27, 2024 8:45am Chronic kidney disease, stage 3 chronic May 27, 2024 8:45am Hyperlipidemia chronic May 27, 2024 8:45am Nonrheumatic aortic (valve) stenosis chronic May 27, 2024 8:45am Paroxysmal atrial fibrillation March 13, 2018 chronic May 27 8:45am Cardiomyopathy acute May 11:30pm Chronic anticoagulation acute A pril 2024 11:30pm Closed right femoral fracture acute June 09, 2024 11:30pm Fall acute June 09 11:30pm History of total right hip replacement September 17, 2018 acute June 09, 2024 11:30pm History of total right knee replacement 2009 acute June 09, 2024 11:30pm History of pulmonary embolus (PE) October 30, 2006 chronic June 09, 2024 11:30pm Left foot drop April 24, 2013 acute June 09, 2024 11:30pm Overweight (BMI 25.0-29.9) acute June 09, 2024 11:30pm Spiral fracture of shaft of femur acute June 09, 2024 11:30pm History of DVT (deep vein thrombosis) October 30, 2006 chronic June 09, 2024 11:30pm [facility] Work Phone: 1(654) 706-583604-09-2025 Evaluation note* Diagnosis Onset Date Resolution Status Admit Date Aortic root dilatation chronic Ap ril 2024 8:45am Benign essential HTN chronic Apri l 2024 8:45am Cardiomyopathy chronic May 27, 2024 8:45am Chronic kidney disease, stage 3 chronic May 27, 2024 8:45am Hyperlipidemia chronic May 27, 2024 8:45am Nonrheumatic aortic (valve) stenosis chronic May 27, 2024 8:45am Paroxysmal atrial fibrillation March 13, 2018 chronic May 27 8:45am Cardiomyopathy acute May 11:30pm Chronic anticoagulation acute A pril 2024 11:30pm Fall acute June 09 11:30pm History of total right hip replacement September 17, 2018 acute June 09, 2024 11:30pm History of total right knee replacement 2008 acute June 09, 2024 11:30pm History of pulmonary embolus (PE) October 30, 2006 chronic June 09, 2024 11:30pm Left foot drop April 24, 2013 acute June 09, 2024 11:30pm Overweight (BMI 25.0-29.9) acute June 09, 2024 11:30pm History of DVT (deep vein thrombosis) October 30, 2006 chronic June 09, 2024 11:30pm Closed right femoral fracture resolved June 09, 2024 11:30pm Spiral fracture of shaft of femur resolved June 09, 2024 11:30pm Atrial fibrillation acute June 15, 2024 1:17pm Debility acute June 15 1:17pm Essential (primary) hypertension acute June 15, 2024 1:17pm GERD (gastroesophageal reflux disease) acute June 15, 2024 1:17pm Iron deficiency anemia acute Ap ril 2024 1:17pm Low back pain acute June 15, 2024 1:17pm Overactive bladder acute June 15, 2024 1:17pm Type 2 diabetes mellitus with hyperglycemia acute June 15, 2 025 1:17pm CKD stage 3a, GFR 45-59 ml/min chronic June 15, 2024 1:17pm Hyperlipidemia chronic May 1:17pm Closed right femoral fracture resolved June 15, 2024 1:17pm Iron deficiency anemia acute Ma y 2024 10:10am [facility] Work Phone: 1(560) 522-843111-01-2024 Telephone encounter Note* Telephone Encounter - Ethel Andujar APRN.CNP - 12/20/2023 4:19 PM EDT Rx sent. Ethel Andujar APRN.ALEJANDRINA [facility]11-01-[facility] Miscellaneous Notes* Telephone Encounter - Ethel Andujar APRN.CNP - 12/20/2023 4:19 PM EDT Rx sent. Ethel Andujar APRN.ALEJANDRINA * Telephone Encounter - Karon Galvan RN - 12/20/2023 4:14 PM EDT Patient notified. States they no longer use [facility]. Updated pharmacy preference to [facility]. Please cancel and resend. Thank you. Karon Galvan RN * Telephone Encounter - Ethel Andujar APRN.CNP - 12/20/2023 3:25 PM EDT Please notify patient: + UTI Rx for Amoxicillin sent Push water Ethel Andujar APRN.CNP documented in this encounterSt. [facility]11-01-2024 Telephone encounter Note * Telephone Encounter - Karon Galvan RN - 12/20/2023 4:14 PM EDT Patient notified. States they no longer use [facility]. Updated pharmacy preference to [facility]. Please cancel and resend. Thank you. Karon Galvan RN [facility]11-01-2024 Telephone encounter Note* Telephone Encounter - Ethel Andujar APRN.CNP - 12/20/2023 3:25 PM EDT Please notify patient: + UTI Rx for Amoxicillin sent Push water Ethel Andujar APRN.CNP [facility]10-31-2024 NoteHNO ID: [id number] Author: ETHEL ANDUJAR APRN.CNP Service: ? Author Type: Nurse Practitioner Type: Progress Notes Filed: 12/19/2023 10:21 Note Text: Annette Marcos is a 73 year old female who presents for problem visit burning while urinating for 2 week(s). HPI: Annette presents for a problem visit for burning while urinating for 2 weeks now. No abnormal vaginal discharge. No vaginal itching or burning. UA shows trace amount of blood and large amount of leukocytes. She does have T2DM with chronic kidney disease. 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 LMP: Hysterectomy Age at Menarche: Age at First : Age at Menopause: International Trade Analyst History Comments: Sexual Activity: Not Currently; Male; tubal ligation prior to hysterectomy Contraception: Surgical PAST MEDICAL HISTORY Diagnosis Date Acute, but ill-defined, cerebrovascular disease 1989 Allergic rhinitis, cause unspecified Allergic rhinitis Anal and rectal polyp FIBROPLASTIC Anemia, unspecified Atrial flutter, paroxysmal ([facility]) 03/14/2018 CKD (chronic kidney disease) stage 3, GFR 30-59 ml/min ([facility]) 07/12/2017 Cognitive impairment 04/10/2017 Colitis, collagenous 09/03/2011 [...] Postmenopausal atrophic vaginitis 06/27/2016 Scoliosis Xray from [facility] 08/03/11 showed; also has narrowing L3-L4 and [...] W/COLLJ SPEC WHEN PFRMD 08/05/2018 Colonoscopy [facility] (Notes Tab) COLONOSCOPY W/BIOPSY SINGLE/MULTIPLE 05/17/11 repeat EGD TRANSORAL BIOPSY SINGLE/MULTIPLE 05/17/11 FILTER PLACEMENT ([facility]) 11-03-12 HEMORRHOIDECTOMY NTRNL AND XTRNL 1 COLUMN/GROUP 03/27/01 HIP SURGERY HX Right 06/11/2018 LAMINECTOMY W/O FFD / VERT SEG LUMBAR 11/05/2012 Laminectomy, lumbar LAMINECTOMY,LUMBAR [...] Social History Tobacco Use Smoking status: Former Current packs/day: 0.00 Types: Cigarettes Quit date: 02/18/1969 Years since quittin.8 Smokeless tobacco: Never Tobacco comments: Pt smoked 1-2 cigarettes daily x 1-2 years. Vaping Use Vaping status: Never Used Substance Use Topics Alcohol use: No Drug use: No Current Outpatient Medications Medication Sig ascorbic acid (VITAMIN C ORAL) Take by mouth. lisinopril 2.5 mg tablet rivaroxaban (XARELTO) 10 mg tablet Take by mouth. pioglitazone (ACTOS) 30 mg tablet carvedilol (COREG) 3.125 mg tablet (more content not included)...[facility]10-31-2024 History of Present illness Narrative* Ethel Andujar, CHACE.BUTADIENE CONVERTOR OPERATOR - 12/19/2023 9:48 AM EDT Annette Marcos is a 73 year old female who presents for problem visit burning while urinating for 2 week(s). HPI: Annette presents for a problem visit for burning while urinating for 2 weeks now. No abnormal vaginal discharge. No vaginal itching or burning. UA shows trace amount of blood and large amount of leukocytes. She does have T2DM with chronic kidney disease. 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 LMP: Hysterectomy Age at Menarche: Age at First : Age at Menopause: International Trade Analyst History Comments: Sexual Activity: Not Currently; Male; tubal ligation prior to hysterectomy Contraception: Surgical PAST MEDICAL HISTORY Diagnosis Date Acute, but ill-defined, cerebrovascular disease 1989 Allergic rhinitis, cause unspecified Allergic rhinitis Anal and rectal polyp FIBROPLASTIC Anemia, unspecified Atrial flutter, paroxysmal ([facility]) 03/14/2018 CKD (chronic kidney disease) stage 3, GFR 30-59 ml/min ([facility]) 07/12/2017 Cognitive impairment 04/10/2017 Colitis, collagenous 09/03/2011 [...] Postmenopausal atrophic vaginitis 06/27/2016 Scoliosis Xray from [facility] 08/03/11 showed; also has narrowing L3-L4 and [...] W/COLLJ SPEC WHEN PFRMD 08/05/2018 Colonoscopy [facility] (Notes Tab) COLONOSCOPY W/BIOPSY SINGLE/MULTIPLE 05/17/11 repeat [...] 1986 ORIF Ankle PAST SURGICAL HISTORY OF 2004 [...] Social History Tobacco Use Smoking status: Former Current packs/day: 0.00 Types: Cigarettes Quit date: 02/18/1969 Years since quittin.8 Smokeless tobacco: Never Tobacco comments: Pt smoked 1-2 cigarettes daily x 1-2 years. Vaping Use Vaping status: Never Used Substance Use Topics Alcohol use: No Drug use: No Current Outpatient Medications Medication Sig ascorbic acid (VITAMIN C ORAL) Take by mouth. lisinopril 2.5 mg tablet rivaroxaban (XARELTO) 10 mg tablet Take by mouth. pioglitazone (ACTOS) 30 mg tablet carvedilol (COREG) 3.125 mg tablet famotidine (PEPCID) 40 mg tablet Estradiol (VAGIFEM) 10 mcg vaginal tablet Use 1 tablet vaginally every Saturday and Saturday. Benzonatate 200 mg capsule Take 1 capsule [...] BY MOUTH DAILY 1/2 HOUR BEFORE BREAKFAST Nebulizer Accessories misc Use with nebulizer every 4 hours as needed for wheezing and shortness ofbreath Pt would like mask for use with [...] times daily as needed for Pain. Per Dr.G. Roman, pain management. Blood-Glucose Meter (TRUE METRIX GLUCOSE METER) misc Use daily as directed. Dx: E11.8 Insulin: No gabapentin (NEURONTIN) 800 mg tablet Take 1 tablet by mouth three times daily. Lancets lancets Test blood sugar(s) 2 times daily. Dx: Type 2 DM - Uncontrolled E11.9 Insulin: No oxybutynin XL (DITROPAN XL) 10 mg 24 hr tablet Take 1 tablet by mouth once daily. ferrous sulfate (IRON ORAL) Take by mouth. (Patient not taking: Reported on 12/19/2023) warfarin (COUMADIN) 5 mg tablet 7.5 mg on Saturday and and 5 mg all other days of the week,AND DIRECTED (Patient not taking: Reported on 04/16/2022) metFORMIN (GLUCOPHAGE) 500 mg tablet Take 1 tablet by mouth daily with breakfast. ASCORBIC ACID/BIOFLAVONOIDS (MELANIE C ORAL) Take 1 tablet by mouth twice daily. (Patient not taking: Reported on 07/31/2022) Calcium-Cholecalciferol, D3, 500 mg-3.125 mcg (125 unit) tab Take two(2) tablets twice daily. (Patient not taking: Reported on 07/31/2022) [place]-3 Fatty Acids-Vitamin E 1,000 mg cap Take 3 pills once daily (?dose) (Patient not taking: Reported on 07/31/2022) THERAPEUTIC MULTIVITAMIN ORAL TAB Take one(1) tablet daily. (Patient not taking: Reported on 07/31/2022) No current facility-administered medications for this visit. Allergies As of Date: 12/19/2023 Allergen Noted Reaction CHLORHEXIDINE 05/21/2013 Itching COTTON 10/12/2004 Other: See Comments DARVON [PROPOXYPHENE HCL] 04/20/2008 Mental Status Change FEATHERS 10/12/2004 Other: See Comments GRASS POLLEN 10/08/2012 Itching MORPHINE 04/20/2008 Mental Status Change VINEGAR 10/12/2004 Other: See Comments WOOL 10/12/2004 Other: See Comments Fully Assessed 12/19/2023 REVIEW OF SYSTEMS Bladder: No gross hematuria, urinary frequency, urinary urgency, or incontinence. + dysuria. Expanded ROS: BARREL DRILLER: Negative for abnormal vaginal bleeding, abnormal vaginal discharge Allergies and current medication updated:Yes SENSITIVE EXAM: The sensitive examination was discussed with the Patient or Patient's Authorized Ceramic Coater. As applicable, any other physician, advance practice provider, medical student, or other health professional student that will be observing or involved in the sensitive examination for educational or training purposes was discussed with the Patient or Authorized Ceramic Coater. The Patient or Authorized Ceramic Coater has agreed to proceed with the sensitive examination. (Sensitive examination includes inspection and/or palpation of the breasts, pelvis, prostate and anorectal regions). EXAM: BP 124/70 Wt 161 lb (73.0kg) GENERAL: pleasant, female in no apparent distress HEENT: Normocephalic, atraumatic, mucus membranes moist, and no lesions CHEST: Normal inspiratory effort PELVIC: external genitalia normal, normal Bartholin's glands, urethra, Yutan's glands, no vulvar lesions, cervix surgically absent, good vaginal support, physiologic discharge present, normal appearing perineal body and perianal region + atrophy notes BIMANUAL: deferred NEURO: alert and oriented x3,exam grossly non-focal EXTREMITIES: normal ASSESSMENT AND PLAN: 1. Burning with urination - ICD9: 788.1, ICD10: R30.0 - Increase water - Avoid bladder irritants - spicy, citrus, tomatoes, smoking, coffee, tea, pop, carbonation, artificial sweeteners and alcohol. - URINE CULTURE - RZOINA/TRICHOMONAS NAAT - BACTERIAL VAGINOSIS NAAT - If cultures negative, consider consult with urology Ethel Andujar APRN.CNP Medical Decision Making: Problems: Low: Acute, uncomplicated illness or injury Data: Unique test(s) ordered: 3+ Risk: Minimal: Minimal risk from testing/treatment Medical Decision Making Level: 3 - Low documented in this encounterSt. Mary'[facility]10-11-2024 History of Present illness Narrative* Trinidad Ramos RT(R) - 11/29/2023 9:10 AM EDT Radiology Service Progress Note PATIENT NAME: Annette Marcos DATE OF SERVICE: November 29, 2023 TIME: 12:54 PM PATIENT IDENTITY VERIFICATION COMPLETED USING TWO (2) IDENTIFIERS: Name and Date of confirmedby patient verbally. FALL SCREENING: Has the patient had 2 falls in the last year or 1 fall with injury or currently using an Ambulatory Assistive Device (Walker, Cane, Wheelchair, Crutches, etc.)? No PATIENT GENDER DATA: Female. status: : No status: NO. PATIENT RELEVANT IMPLANT DATA REVIEWED: Not Applicable PATIENT PRESENTS WITH AN IMPLANTABLE OR ATTACHED MANUFACTURING SYSTEMS ENGINEER: No RADIOLOGY DEPARTMENT: Mammography PERIPHERAL IV DATA: Not applicable SIGNED BY: RT Zaira(R) November 29, 2023 12:54 PM documented in this encounterSt. Mary'S [facility] Center10-11-2024 NoteHNO ID: [id number] Author: TRINIDAD RAMOS RT(Mala) Service: ? Author Type: Technologist Type: Progress Notes Filed: 11/29/2023 12:55 Note Text: Radiology Service Progress Note PATIENT NAME: Annette Marcos DATE OF SERVICE: November 29, 2023 TIME: 12:54 PM PATIENT IDENTITY VERIFICATION COMPLETED USING TWO (2) IDENTIFIERS: Name and Date of confirmed by patient verbally. FALL SCREENING: Has the patient had 2 falls in the last year or 1 fall with injury or currently using an Ambulatory Assistive Device (Walker, Cane, Wheelchair, Crutches, etc.)? No PATIENT GENDER DATA: Female. status: : No status: NO. PATIENT RELEVANT IMPLANT DATA REVIEWED: Not Applicable PATIENT PRESENTS WITH AN IMPLANTABLE OR ATTACHED MANUFACTURING SYSTEMS ENGINEER: No RADIOLOGY DEPARTMENT: Mammography PERIPHERAL IV DATA: Not applicable SIGNED BY: RT Zaira(R) November 29, 2023 12:54 [facility]03-21-2024 History of Present illness Narrative* Argelia Thomson MD - 05/09/2023 8:51 AM EDT Distributed Generation Project Manager offered: Patient declinesMeka Bryant is a 72 year old who presents for an annual gynecologic exam. Postmenopausal: Yes HRT use: Vagifem Last Pap: s/p hysterectomy Last mammogram: 2022 normal History of abnormal mammogram: Yes 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 LMP: Hysterectomy Age at Menarche: Age at First : Age at Menopause: International Trade Analyst History Comments: Sexual Activity: Not Currently; Male; tubal ligation prior to hysterectomy Contraception: Surgical PAST MEDICAL HISTORY Diagnosis Date Acute, but ill-defined, cerebrovascular disease 1989 Allergic rhinitis, cause unspecified Allergic rhinitis Anal and rectal polyp FIBROPLASTIC Anemia, unspecified Atrial flutter, paroxysmal ([facility]) 03/14/2018 CKD (chronic kidney disease) stage 3, GFR 30-59 ml/min ([facility]) 07/12/2017 Cognitive impairment 04/10/2017 Colitis, collagenous 09/03/2011 [...] Postmenopausal atrophic vaginitis 06/27/2016 Scoliosis Xray from [facility] 08/03/11 showed; also has narrowing L3-L4 and [...] W/COLLJ SPEC WHEN PFRMD 08/05/2018 Colonoscopy [facility] (Notes Tab) COLONOSCOPY W/BIOPSY SINGLE/MULTIPLE 05/17/11 repeat [...] ABDOMINAL HYSTERECT W/WO RMVL TUBE OVARY 2000 A&P REPAIR hyst for benign reason TOTAL [...] LEUKEMIA Cancer Maternal Uncle Psychiatry Sister anxiety SOCIAL HISTORY Social History Tobacco Use Smoking status: Former Types: Cigarettes Quit date: 02/18/1969 Years since quittin.2 Smokeless tobacco: Never Tobacco comments: Pt smoked 1-2 cigarettes daily x 1-2 years. Vaping Use Vaping Use: Never used Substance Use Topics Alcohol use: No Drug use: No REVIEW OF SYSTEMS Abdomen: No abdominal pain, nausea, vomiting, diarrhea, or constipation. No bloating, early satiety, indigestion, or increased flatulence. Bladder: Seeing Breast: No breast lumps, nipple d/c, overlying skin changes, redness or skin retraction Allergies and current medication updated:Yes EXAM: BP 122/68 Ht 5' 2" (1.58m) Wt 164 lb (74.4kg) BMI 29.99 kg/(m^2). GENERAL: pleasant, female in no apparent distress BREAST: soft, non-tender, symmetric, no dominant mass, normal nipple-areolar complex, no lymphadenopathy, and no nipple discharge CHEST: Normal inspiratory effort ABDOMEN: soft, non-tender, and no masses PELVIC: external genitalia normal, no vulvar lesions, normal appearing perineal body and perianal region BIMANUAL: uterus surgically absent, shape and consistency, no adnexal masses, and non-tender RECTOVAGINAL: deferred. NEURO: alert and oriented x3,exam grossly non-focal EXTREMITIES: normal ASSESSMENT/PLAN: 1) Health maintenance: Pap/HPV screening no longer needed Mammogram ordered Nutrition, exercise and routine health maintenance exams reviewed. Colon cancer screening: up to date with screening & due next year with (2024) 2) Follow up one year or sooner as needed 3) Atrophic vaginitis - continue vagifem and plans to get refill from Dr.Wyneski Argelia Thomson MD documented in this encounterSt. Mary'[facility]09-08-2023 History of Present illness Narrative* Trinidad Ramos RT(R) - 10/26/2022 8:10 AM EDT Radiology Service Progress Note PATIENT NAME: Annette Marcos DATE OF SERVICE: October 26, 2022 TIME: 7:55 AM PATIENT IDENTITY VERIFICATION COMPLETED USING TWO (2) IDENTIFIERS: Name and Date of confirmedby patient verbally. FALL SCREENING: Has the patient [...] 26, 2022 7:55 AM documented in this encounterSt. Mary'[facility] Center07-21-2023 Discharge summary Author Will Colmenares [facility] September 07, 2022 5:49am Note Date/Time September 07, 2022 2:41 am [facility] Medical Records Department [address] [place] [id number] Emergency Department Summary 09/07/22 MR#: [id number] Acct: [id number] Name: ANNETTE MARCOS Rep #:[id number] : 1950 71 From: Will Colmenares MD PCP: Dr. Quentin Kellogg MD Status:REG E R Location: ED HPI History of Present Illness Chief Complaint: Palpitations Informant: patient Narrative Narrative: 71-year-old female states after she laid down to sleep tonight she started feeling her heart "beating hard" without racing or skipping, which made it feel like she was "breathing abnormally." She denies any chest discomfort, lightheadedness or syncope. Denies cough, nausea, vomiting, but she has had some diarrhea for the last 2 days. No other illness. She denies any changes inher medications lately; states that she has been compliant with her heart pills,but cannot tell me any cardiac history that she has in any detail. She is anticoagulated on Xarelto for history of blood clots. [facility] Medical History (Updated 09/07/22 @ 05:[address] Will Colmenares MD) Anemia (04/10/17) Aortic root dilatation Asthma Atrophic vaginitis Benign essential HTN Cardiomyopathy Chronic bronchitis Chronic kidney disease, stage 3 Degenerative joint disease of right knee DM2 (diabetes mellitus, type 2) Hemorrhoids History of colitis (10/19/10) History of DVT (deep vein thrombosis) (10/30/06) History of pulmonary embolus (PE) (10/30/06) History of syncope (10/01/17) Hyperlipidemia Left foot drop (04/24/13) Lichen simplex chronicus (10/20/10) Lumbar stenosis Lung nodule (10/28/14) Mixed incontinence Nonrheumatic aortic (valve) stenosis Nonrheumatic mitral (valve) insufficiency Nonrheumatic tricuspid (valve) insufficiency Osteoarthritis Paroxysmal atrial fibrillation (03/13/18) Postlaminectomy syndrome (02/01/16) Scoliosis Syncope Home Medications fluticasone 100 mcg-salmeterol 50 mcg/dose blistr powdr for inhalation 1 puff inhalation BID asthma 01/29/13 [History Last Taken Unknown] ferrous gluconate 324 mg (37.5 mg iron) tablet 325 mg PO BID iron 05/29/18 [History Last Taken Unknown] sennosides 8.6 mg-docusate sodium 50 mg tablet 2 tab PO BID PRN Constipation 04/15/19 [History Last Taken Unknown] albuterol sulfate 2.5 mg/3 mL (0.083 %) solution for nebulization 2.5 mg inhalation Q4H PRN shortness of breath or wheezing 04/23/19 [History Last Taken Unknown] carvedilol 3.125 mg tablet (Coreg) 3.125 mg PO BID #180 tabs 11/30/21 [Rx Last Taken Unknown] acetaminophen 650 mg tablet,extended release (Tylenol Arthritis Pain) 650 mg PO Q8H 12/05/21 [History Last Taken Unknown] albuterol sulfate 90 mcg/actuation aerosol inhaler 2 puff inhalation 4X/DAY PRN asthma 12/05/21 [History Last Taken Unknown] estradiol 10 mcg vaginal tablet 10 mcg vaginal .QMR hormone 12/05/21 [History Last Taken Unknown] famotidine 40 mg tablet 40 mg PO DAILY 12/05/21 [History Last Taken Unknown] lisinopril 2.5 mg tablet See Rx Instructions .Route .COMPLEX #90 tabs 06/04/22 [Rx Last Taken Unknown] atorvastatin 40 mg tablet 40 mg PO DAILY 06/21/22 [History Last Taken Unknown] cetirizine 10 mg tablet 10 mg PO DAILY PRN allergy symptoms 06/21/22 [History Last Taken Unknown] gabapentin 600 mg tablet 600 mg PO TID 06/21/22 [History Last Taken Unknown] pioglitazone 30 mg tablet 30 mg PO DAILY 06/21/22 [History Last Taken Unknown] rivaroxaban 15 mg tablet (Xarelto) 15 mg PO DAILY 06/21/22 [History Last Taken Unknown] Allergy/AdvReac Type Severity Reaction Status Date / Time cider vinegar Allergy NEEDS Verified 09/07/22 02:41 FOLLOW-UP cottonseed oil Allergy NEEDS Verified 09/07/22 02:41 FOLLOW-UP grass pollen Allergy NEEDS Verified 09/07/22 02:41 FOLLOW-UP morphine Allergy Unknown Verified 09/07/22 02:41 oxycodone HCl Allergy Unknown Verified 09/07/22 02:41 [From OxyContin] propoxyphene HCl Allergy Unknown Verified 09/07/22 02:41 [From Darvon] wool Allergy NEEDS Verified 09/07/22 02:41 FOLLOW-UP chlorhexidine AdvReac Rash Verified 09/07/22 02:41 feathers AdvReac NEEDS Verified 09/07/22 02:41 FOLLOW-UP Family History Mother CAD (coronary artery disease) DVT (deep venous thrombosis) Hypertension Father Prostate cancer Sister Breast cancer Surgical History H/O thumb surgery (2003) H/O transurethral destruction of bladder lesion (03/26/14) H/O tubal ligation (1988) History of bilateral salpingo-oophorectomy (1999) History of (1988) History of colonoscopy (05/17/11) History of fractured kneecap (2007) History of hysterectomy (1999) History of knee replacement (09/02/06) History of laparoscopy (1999) History of lumbar laminectomy (11/05/12) History of partial knee replacement (2006) History of total right hip replacement (09/17/18) History of total right knee replacement (2008) Patellar tendon rupture Status post insertion of inferior vena caval filter (10/30/06) Status post ORIF of fracture of ankle (1986) Social History Smoking Status: Former smoker quit date: 02/18/69 alcohol intake: never substance use type: does not use caffeine: Yes Type: coffee Number of servings: 1 ROS ROS ED Constitutional Constitutional ED: Denies chills or fever(s) Eyes Eyes: Denies change in vision or diplopia ENT ENT ED: Denies rhinorrhea or sore throat Cardiovascular Cardiovascular: Reports as per HPI and palpitations; Denies chest pain or radiating jaw, neck or arm pain Respiratory/Chest Respiratory/Chest: Reports dyspnea; Denies cough Gastrointestinal Gastrointestinal: Denies abdominal pain, diarrhea, nausea or vomiting Genitourinary Genitourinary ED: Denies dysuria or hematuria Musculoskeletal Musculoskeletal: Denies back pain or neck pain Integumentary Denies abscess or rash Neurologic Neurologic: Denies headache(s), paresthesias or weakness Psychiatric Psychiatric: Denies anxiety or suicidal thoughts EXAM Physical Exam Const Vital Signs: 09/07/22 02:36 09/07/22 02:38 09/07/22 02:40 Temperature 97.2 F L Temperature Source Temporal Pulse Rate 92 Respiratory Rate 16 Respiratory Pattern Normal Blood Pressure 150/85 H Blood Pressure Mean 106 Pulse Ox 98 Oxygen Delivery Method Room Air 09/07/22 04:31 Temperature Temperature Source Pulse Rate 73 Respiratory Rate 16 Respiratory Pattern Blood Pressure 114/78 Blood Pressure Mean 90 Pulse Ox 99 Oxygen Delivery Method Positive well nourished and well developed General Appearance ED: well developed and NAD HEENT Reports moist mucous membranes normocephalic and atraumatic Eyes PERRL and EOMs intact bilaterally Neck full ROM and supple Resp normal respiratory effort and clear to auscultation bilaterally Cardio regular rate, regular rhythm and no murmurs Rate: Negative for tachycardic GI non-tender and non-distended Auscultation: normoactive bowel sounds Palpation: soft Back/Spine no CVA tenderness General Back: other FROM Extremity normal to inspection General Extremety ED: Negative for edema, pulses abnormal or tenderness General Extremity: Negative for edema or pulses abnormal Neuro oriented x3, CN's II-XII intact bilaterally, no sensory deficits noted and gait normal Sensorium / Orientation: awake and alert Motor Exam: strength 5/5 throughout Psych Mood & Affect: anxious Skin no rashes or lesions noted and no wounds MDM MDM MDM Narrative Medical decision making narrative: Patient's rhythm and EKG are normal. Her chest x-ray 2 views of my interpretation are normal radiology was basically in agreement that there is nothing acute. Her initial enzymes are negative with a reading of 8. We repeated this 2 hours later it is 9, and in the meantime I gave her Mylanta because I see no evidence of any of this being cardiac or pulmonary that I can tell, plus she is anticoagulated so does not likely have an acute PE. She actually felt better after the GI medication. She had no telemetry events or ectopy on the monitor while she was being monitored here. Furthermore her BNP returned well within normal limits at 62.4, even in context of chronic kidney disease. Very reassuring at this time I am comfortable letting her go home and she is comfortable with that as well. Her vital signs are reevaluation are normal witha blood pressure 114/78, heart rate 73 respirations 16 pulse ox 99% on room air. Lab Data Attestation: I reviewed the patient's lab results. Labs: Laboratory Results - last 24 hr 09/07/22 09/07/22 02:45 04:55 WBC 5.7 RBC 3.38 L Hgb 10.4 L Hct 33.2 L MCV 98.2 MCH 30.8 MCHC 31.3 L RDW Std Deviation 44.9 H RDW Coeff of Mahin 12.5 Plt Count 178 MPV 9.5 Immature Gran % (Auto) 0.500 Neut % (Auto) 49.2 Lymph % (Auto) 33.0 [place] % (Auto) 13.1 H Eos % (Auto) 4.0 Baso % (Auto) 0.2 Absolute Neuts (auto) 2.8 Absolute Lymphs (auto) 1.89 Nucleated RBC % 0 Sodium 141 Potassium 4.6 Chloride 112 H Carbon Dioxide 23.0 Anion Gap 6 BUN 43 H Creatinine 1.41 H Estim Creat Clear Calc 31.60 Est GFR (MDRD) Af Amer 47 L Est GFR (MDRD) Non-Af 39 L BUN/Creatinine Ratio 30.5 H Glucose 144 H Calcium 9.2 Troponin I High Sens 8 9 B-Natriuretic Peptide 62.4 Radiography Diagnostic Testing: Clinical Impression(s) from Imaging Studies Chest X-Ray 09/07/22 03:00 IMPRESSION: No evidence of active intrathoracic disease. Electronically Signed: Sofía Carl MD at 3:27 EDT , Rhythm Strip Rhythm Strip: Sinus Rhythm Rate: 95 Ectopy: None EKG Initial EKG: Attestation: I personally reviewed and interpreted this EKG as follows: Interpretation: Sinus Rhythm and No Acute Injury Pattern Comments: Normal EKG, rate 84. no ectopy. nml intervals. Discharge Plan Triage Chief Complaint: Palpitations ED Provider: Will Colmenares Dx/Rx/DC Orders Clinical Impression: Palpitations with regular cardiac rhythm, Acute dyspnea Instructions: ED Dyspnea Prescriptions: No Action albuterol sulfate 2.5 mg /3 mL (0.083 %) solution for nebulization 2.5 mg INHALATION Q4H PRN (Reason: shortness of breath or wheezing) famotidine 40 mg tablet 40 mg PO DAILY acetaminophen [Tylenol Arthritis Pain] 650 mg tablet extended release 650 mg PO Q8H gabapentin 600 mg tablet 600 mg PO TID Xarelto 15 mg tablet 15 mg PO DAILY Rx Instructions: must administer with evening meal cetirizine 10 mg tablet 10 mg PO DAILY PRN (Reason: allergy symptoms) atorvastatin 40 mg tablet 40 mg PO DAILY pioglitazone 30 mg tablet 30 mg PO DAILY fluticasone propion-salmeterol 1 PUFF inhaler 1 puff INHALATION BID albuterol sulfate 90 mcg/actuation HFA aerosol inhaler 2 puff inhalation 4X/DAY PRN (Reason: asthma) estradiol 10 mcg tablet 10 mcg vaginal .QMR Patient Comments: TWICE A WEEK ferrous gluconate 324 MG tablet 325 mg PO BID sennosides-docusate sodium 1 TABLET tablet 2 tab PO BID PRN (Reason: Constipation) Rx Instructions: Take until first bowel movement, then as needed carvedilol [Coreg] 3.125 mg tablet 3.125 mg PO BID Qty: 180 3RF Rx Instructions: must administer with a meal/food lisinopril 2.5 mg tablet See Rx Instructions .ROUTE .COMPLEX Qty: 90 4RF Dose Instruction: take 1 tablet by mouth once daily Rx Instructions: take 1 tablet by mouth once daily Primary Care Provider: Quentin Kellogg Chi Referrals: Quentin Klelogg Chi, MD [Primary Care Provider] - 3-5 Days if not improving Disposition Disposition: Home, Self Care What to do if you have Problems For any increased pain, shortness of breath, bleeding, nausea or vomiting, chestpain, or any unexpected problems, contact your Primary Care Provider. Call [facility] ([phone]) or report to the closest Emergency Room. Call 911 if necessary. 09/07/22 0549 <Electronically signed by Will Colmenares MD> Cosigner Signature (if applicable): CC: Dr. Quentin Kellogg MD ~ Signed [facility] Work Phone: [phone] 959-299506-19-2023 Miscellaneous Notes* Telephone Encounter - Karon Galvan RN - 08/06/2022 11:35 AM EDT Patient viewed Scryer message. Karon Galvan RN * Telephone Encounter - Karon Galvan RN - 08/03/2022 3:02 PM EDT Left message for patient to call office or check In[employer] messages. Karon Galvan RN * Telephone Encounter - Argelia Thomson MD - 08/03/2022 2:53 PM EDT Rx macrobid given Argelia Thomson MD * Telephone Encounter - Karon Galvan RN - 08/03/2022 2:28 PM EDT Please file RX. Patient needs notified. * Telephone Encounter - Karon Galvan RN - 08/03/2022 2:28 PM EDT ----- Message from Argelia Thomson MD sent at 08/03/2022 1:54 PM EDT ----- Needs treated for UTI Argelia Thomson MD documented in this encounterSt. Mary'[facility]05-17-2023 History of Present illness Narrative* Joyce Lilly - 07/04/2022 12:10 PM EDT Annette Marcos is identified through a medication adherence outreach initiative based on pharmacy claims data from [employer] (insurer) for Statin medication(s). Patient is reviewed [...] outside provider unable to request RF. Sent MyChart message reminder. Joyce Lilly documented in this encounterSt. Mary'S Medical Center02-27-2023 History of Present illness Narrative* Argelia Thomson MD - 04/16/2022 9:01 AM EST Annette Marcos is a 71 year old female who presents for problem visit. HPI: Patient presents for med refill. She is doing well on the vagifem and wishes to continue. 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 LMP: Hysterectomy Age at Menarche: Age at First : Age at Menopause: International Trade Analyst History Comments: Sexual Activity: Not Currently; Male; tubal ligation prior to hysterectomy Contraception: Surgical PAST MEDICAL HISTORY Diagnosis Date Acute, but ill-defined, cerebrovascular disease 1989 Allergic rhinitis, cause unspecified Allergic rhinitis Anal and rectal polyp FIBROPLASTIC Anemia, unspecified Atrial flutter, paroxysmal ([facility]) 03/14/2018 CKD (chronic kidney disease) stage 3, GFR 30-59 ml/min ([facility]) 07/12/2017 Cognitive impairment 04/10/2017 Colitis, collagenous 09/03/2011 [...] Postmenopausal atrophic vaginitis 06/27/2016 Scoliosis Xray from [facility] 08/03/11 showed; also has narrowing L3-L4 and [...] W/COLLJ SPEC WHEN PFRMD 08/05/2018 Colonoscopy [facility] (Notes Tab) COLONOSCOPY W/BIOPSY SINGLE/MULTIPLE 05/17/11 repeat EGD TRANSORAL BIOPSY SINGLE/MULTIPLE 05/17/11 FILTER PLACEMENT (VENA CAVA) 9-16-13 HEMORRHOIDECTOMY NTRNL & XTRNL 1 COLUMN/GROUP 03/27/01 [...] ABDOMINAL HYSTERECT W/WO RMVL TUBE OVARY 2000 A&P REPAIR hyst for benign reason TOTAL [...] hours as needed for wheezing and shortness ofbreath Pt would like mask for use with [...] times daily as needed for Pain. Per Dr.G. Roman, pain management. Blood-Glucose Meter (TRUE METRIX [...] unit) tab Take two(2) tablets twice daily. [place]-3 Fatty Acids-Vitamin E 1,000 mg cap Take 3 pills once daily (?dose) THERAPEUTIC MULTIVITAMIN ORAL TAB Take one(1) tablet daily. lisinopril 2.5 mg tablet carvedilol (COREG) 3.125 mg tablet famotidine (PEPCID) 40 mg tablet warfarin (COUMADIN) 5 mg tablet 7.5 mg on Saturday and and 5 mg all other days of the week,AND DIRECTED (Patient not taking: Reported on 04/16/2022) [...] time Argelia Thomson MD documented in this encounterSt. Mary'S Medical Center09-12-2022 Miscellaneous Notes* Telephone Encounter - Shanelle Delgado RN - 10/30/2021 4:34 PM EDT 2nd message left for patient to return phone call * Telephone Encounter - Amaya Turner RN - 10/27/2021 10:46 AM EDT Left message to call office. Patient is scheduled for appointment on 11/07 for blood in urine. Please triage patient and offer sooner appointment if needed. Amaya Turner RN documented in this encounterSt. Mary'S Medical Center08-08-2022 History of Present illness Narrative* Raegan Amado Population Health Navigator - 09/25/2021 2:32 PM EDT POPULATION HEALTH NAVIGATION OUTREACH Action/FYI Called patient to schedule annual wellness visit and care gaps. Pt identified by name and : NO Outreach Outcome/Action Unable to reach patient: Left message MyChart message sent Did you use a PCP flex slot to schedule this appointment? N/A Reason for Outreach HCC or suspected condition Payer: Payor: [employer] / Plan: [employer] HMO / Product Type: HMO / Care [...] Message Sent to Practice: No Raegan Amado Population Health Navigator September 25, 2021 2:32 PM documented in this encounterSt. Mary'S [facility] Center05-11-2022 History of Present illness Narrative* Michelle Shannon, RT(R) - 06/28/2021 10:00 AM EDT Radiology Service Progress Note PATIENT NAME: Annette Marcos DATE OF SERVICE: June 28, 2021 TIME: 10:57 AM PATIENT IDENTITY VERIFICATION COMPLETED USING TWO (2) IDENTIFIERS: Name and Date of confirmedby patient verbally. FALL SCREENING: Has the patient [...] 28, 2021 10:57 AM documented in this encounterSt. Mary'S Medical Center04-15-2022 Miscellaneous Notes* Telephone Encounter - Kiara Van Ma - 06/02/2021 10:49 AM EDT Pt. Was seen & treated in 05/31. Will close TE at this time. * Telephone Encounter - Tamanna Shine LPN - 05/31/2021 12:18 PM EDT Left message, asked Patient to call in to let office know she pickup ATB. Tamanna Shine LPN * Telephone Encounter - CHA Quick - 05/29/2021 9:31 AM EDT TC to patient. No answer. Left message to call back and ask to speak with a nurse. CHA Quick * Telephone Encounter - Bernardo Alfaro MD - 05/27/2021 1:56 PM EDT Patient's request for medication is as follows Signed Prescriptions Disp Refills Benzonatate 200 mg capsule 21 capsule 0 Sig: Take 1 capsule by mouth three times daily as needed. ALISON: No Authorizing Provider: BERNARDO ALFARO Order entered - please phone pharmacy and notify patient. Bernardo Alfaro MD * Telephone Encounter - Denice Gonzalez RN - 05/27/2021 10:09 AM EDT Pt called in asking if provider had [...] office give her a call on Saturday. * Telephone Encounter - Carol Velazquez LPN - 05/26/2021 2:00 PM EDT Left message for patient to return call to office. See other phone encounter. * Telephone Encounter - Bernardo Alfaro MD - 05/26/2021 1:12 PM EDT Continue supportive measures like cough medications. Schedule sooner follow up next week if needed. * Telephone Encounter - Adela Rogel RN - 05/26/2021 8:09 AM EDT Patient calling to report that she was seen at [facility] on 05/09/21 for cough [...] sore throat, vomiting or diarrhea. Reports drinking plentyof fluids. She is asking if Dr. Alfaro if he could advise her by phone or does he prefer her to make appt? Requesting [facility] pharmacy in [place]. She also states she takes coumadin and had INR tested yesterday at [facility] and has not been advised on result and coumadin dosage yet. No INR result noted- contacted [facility] this morning and they would not give me result by phone-stated they would have to fax it over. Fax number verified. Please advise patient at [phone] leave a detailed message if she does not answer. Thank you. documented in this encounterSt. [facility]04-13-2022 Instructions* Patient Instructions* Pia Thomson APRN.BUTADIENE CONVERTOR OPERATOR - 05/31/2021 8:59 AM EDT [facility] [address] [place] [address] Emergency Department Diagnosis: Assessment COUGH: Your doctor [...] the lung from pneumonia. A persistent cough las ting longer than 4-6 weeks requires medical evaluation [...] or other serious complaints. documented in this encounterSt. Mary'S [facility]04-13-2022 History of Present illness Narrative* Shanelle Young RT(R) - 05/31/2021 8:40 AM EDT Radiology Service Progress Note PATIENT NAME: Annette Marcos DATE OF SERVICE: May 31, 2021 TIME: 8:36 AM PATIENT IDENTITY VERIFICATION COMPLETED USING TWO (2) IDENTIFIERS: Name and Date of confirmedby patient verbally. FALL SCREENING: Has the patient had 2 falls in the last year or 1 fall with injury or currently using an Ambulatory Assistive Device (Walker, Cane, Wheelchair, Crutches, etc.)? No PATIENT GENDER DATA: Female. status: : No status: NO. PATIENT RELEVANT IMPLANT DATA REVIEWED: Not Applicable RADIOLOGY DEPARTMENT: General X-ray: Exam(s) Completed: Chest X-Ray PERIPHERAL IV DATA: Not applicable SIGNED BY: RT Alina(R) May 31, 2021 8:36 AM documented in this encounterSt. Mary'[facility]04-13-2022 History of Present illness Narrative* Pia Thomson APRN.BUTADIENE CONVERTOR OPERATOR - 05/31/2021 8:33 AM EDT CC: Patient presents with: Ear Problem: right ear feels like a furnace is running and has cold symptoms x 1 day HPI: Annette Marcos is a 70 year old female who [...] polyp FIBROPLASTIC Anemia, unspecified Atrial flutter, paroxysmal ([facility]) 03/14/2018 CKD (chronic kidney disease) stage 3, GFR 30-59 ml/min ([facility]) 07/12/2017 Cognitive impairment 04/10/2017 Colitis, collagenous 09/03/2011 [...] Postmenopausal atrophic vaginitis 06/27/2016 Scoliosis Xray from [facility] 08/03/11 showed; also has narrowing L3-L4 and [...] W/COLLJ SPEC WHEN PFRMD 08/05/2018 Colonoscopy [facility] (Notes Tab) COLONOSCOPY W/BIOPSY SINGLE/MULTIPLE 05/17/11 repeat EGD TRANSORAL BIOPSY SINGLE/MULTIPLE 05/17/11 FILTER PLACEMENT (VENA CAVA) 11-03-12 HEMORRHOIDECTOMY NTRNL & XTRNL 1 COLUMN/GROUP 03/27/01 HIP SURGERY HX Right 06/11/2018 LAMINECTOMY W/O FFD 02/19 VERT SEG LUMBAR 11/05/2012 Laminectomy, lumbar LAMINECTOMY,LUMBAR [...] ABDOMINAL HYSTERECT W/WO RMVL TUBE OVARY 2000 A&P REPAIR hyst for benign reason TOTAL [...] 5 mg all other days of the week,AND DIRECTED omeprazole (PRILOSEC) 20 mg capsule TAKE ONE CAPSULE BY MOUTH DAILY 1/2 HOUR BEFORE BREAKFAST metFORMIN (GLUCOPHAGE) 500 mg tablet Take 1 tablet by mouth daily with breakfast. Nebulizer Accessories misc Use with nebulizer every 4 hours as needed for wheezing and shortness ofbreathPt would like mask for use with nebulizer. [...] times daily as needed for Pain. Per Dr.G. Roman, pain management. Blood-Glucose Meter (TRUE METRIX GLUCOSE METER) [facility] Use daily as directed. Dx: E11.8 Insulin: [...] ORAL Tab Take two(2) tablets twice daily. [place]-3 Fatty Acids-Vitamin E (FISH OIL) 1,000 mg [...] be reflective of evolving/resolving pneumonia and/or atelectasis. Drying Machine Operator Package Yarns: MARSHALL Transcribe Date/Time: May 31 2021 8:46A [...] plan. Pia Thomson APRN.ALEJANDRINA documented in this encounterSt. Mary'[facility]04-09-2022 Miscellaneous Notes* Telephone Encounter - Shital Arriaga LPN - 05/27/2021 9:11 AM EDT Phoned patient and went over coumadin instructions from Dr Alfaro continue 7.5 mg Tues/Thurs/Satand 5 mg all other days and recheck INR in 2 weeks with understanding. * Telephone Encounter - Carol Velazquez LPN - 05/26/2021 2:06 PM EDT Left message for patient to return call to office. See other phone encounter. * Telephone Encounter - Bernardo Alfaro MD - 05/26/2021 1:19 PM EDT Continue Coumadin dose as stated. INR in 2 weeks. * Telephone Encounter - Tracy August LPN - 05/26/2021 9:03 AM EDT Last INR: [facility] lab draw 2.8 05/25/2021 Current dose of [...] time she is called. documented in this encounterSt. Mary'S [facility] Center03-31-2022 Miscellaneous Notes* Telephone Encounter - Yessi Lowe LPN - 05/18/2021 2:22 PM EDT Pt called in and requested Rxs to [...] Please advise. Thank you. Yessi Lowe LPN * Telephone Encounter - Susan Alejo - 05/18/2021 12:15 PM EDT Patient has been identified by name and [...] notify patient. Susan Alejo documented in this encounterSt. Mary'S [facility] Center03-28-2022 Miscellaneous Notes* Telephone Encounter - Denice Gonzalez RN - 05/15/2021 5:02 PM EDT Pt called and is notified of providers results and instructions. Pt voices understanding. Denice Gonzalez RN * Telephone Encounter - Kimberly Farah APRN.CNP - 05/15/2021 4:39 PM EDT Dose: No Change. Repeat in INR in 1 week Kimberly Farah APRN.CNP * Telephone Encounter - Birgit Ramos LPN - 05/15/2021 9:24 AM EDT Last INR: INR (POCT) 2.7 05/15/2021 Current dose of coumadin is: 7.5 mg on Tues/Thurs and 5 mg all other days.. Last date of dose change: 05/04/21. Previous INR (date and result): 4.1 Additional Clinical Information or narrative: no documented in this encounterSt. Mary'S Medical Center01-24-2019 Evaluation note* Diagnosis Onset Date Resolution Status Aortic root dilatation chron ic Benign essential HTN chronic Cardiomyopathy chronic Hyperlipidemia chronic Paroxysmal atrial fibrillation March 13, 2018 [facility] Work Phone: 1(192) 832-893401-24-2019 Evaluation note* Diagnosis Onset Date Resolution Status Benign essential HTN chronic Paroxysmal atrial fibrillation March 13, 2018 [facility] Work Phone: 1(609) 651-822207-13-2018 History of Past illness Narrative* Problem Noted [...] toe Lung nodule 10/20/2010 03/11/2012 Overview: 04/15/10 [facility] RML nodule, f/u enc 6mo Degenerative joint disease of right knee 011 03/11/2012 Osteoarthritis of basilar joint of thumb, left 0 10/10/2010 03/11/2012 Overview: [facility] DVT (deep venous thrombosis) 01/10/2010 Gross [...] infarction 03/11/2012 Scoliosis 03/11/2012 Overview: Xray from [facility] 08/03/11 showed; also has narrowing L3-L4 and L4- L5; DJD L3, L4, L5; slight anterior displacement L4 on L5. documented as of this encounter (statuses as of 05/15/2021) [facility] History of Past illness Narrative* Problem Noted [...] toe Lung nodule 10/20/2010 03/11/2012 Overview: 04/15/10 [facility] RML nodule, f/u enc 6mo Degenerative joint [...] infarction 03/11/2012 Scoliosis 03/11/2012 Overview: Xray from [facility] 08/03/11 showed; also has narrowing L3-L4 and L4- L5; DJD L3, L4, L5; slight anterior displacement L4 on L5. documented as of this encounter (statuses as of 05/19/2021) [facility] of Past illness Narrative* Problem Noted [...] toe Lung nodule 10/20/2010 03/11/2012 Overview: 04/15/10 [facility] RML nodule, f/u enc 6mo Degenerative joint disease of right knee 011 03/11/2012 Osteoarthritis of basilar joint of thumb, left 0 10/10/2010 03/11/2012 Overview: [facility] DVT (deep venous thrombosis) 01/10/2010 Gross [...] infarction 03/11/2012 Scoliosis 03/11/2012 Overview: Xray from [facility] 08/03/11 showed; also has narrowing L3-L4 and L4- L5; DJD L3, L4, L5; slight anterior displacement L4 on L5. documented as of this encounter (statuses as of 05/27/2021) [facility] of Past illness Narrative* Problem Noted [...] toe Lung nodule 10/20/2010 03/11/2012 Overview: 04/15/10 [facility] RML nodule, f/u enc 6mo Degenerative joint disease of right knee 011 03/11/2012 Osteoarthritis of basilar joint of thumb, left 0 10/10/2010 03/11/2012 Overview: [facility] DVT (deep venous thrombosis) 01/10/2010 Gross [...] infarction 03/11/2012 Scoliosis 03/11/2012 Overview: Xray from [facility] 08/03/11 showed; also has narrowing L3-L4 and L4- L5; DJD L3, L4, L5; slight anterior displacement L4 on L5. documented as of this encounter (statuses as of 05/31/2021) [facility] of Past illness Narrative* Problem Noted [...] toe Lung nodule 10/20/2010 03/11/2012 Overview: 04/15/10 [facility] RML nodule, f/u enc 6mo Degenerative joint disease of right knee 011 03/11/2012 Osteoarthritis of basilar joint of thumb, left 0 10/10/2010 03/11/2012 Overview: [facility] DVT (deep venous thrombosis) 01/10/2010 Gross [...] infarction 03/11/2012 Scoliosis 03/11/2012 Overview: Xray from [facility] 08/03/11 showed; also has narrowing L3-L4 and L4- L5; DJD L3, L4, L5; slight anterior displacement L4 on L5. documented as of this encounter (statuses as of 06/02/2021) [facility] of Past illness Narrative* Problem Noted [...] toe Lung nodule 10/20/2010 03/11/2012 Overview: 04/15/10 [facility] RML nodule, f/u enc 6mo Degenerative joint disease of right knee 011 03/11/2012 Osteoarthritis of basilar joint of thumb, left 0 10/10/2010 03/11/2012 Overview: [facility] DVT (deep venous thrombosis) 01/10/2010 Gross [...] infarction 03/11/2012 Scoliosis 03/11/2012 Overview: Xray from [facility] 08/03/11 showed; also has narrowing L3-L4 and L4- L5; DJD L3, L4, L5; slight anterior displacement L4 on L5. documented as of this encounter (statuses as of 06/29/2021) [facility] of Past illness Narrative* Problem Noted [...] toe Lung nodule 10/20/2010 03/11/2012 Overview: 04/15/10 [facility] RML nodule, f/u enc 6mo Degenerative joint disease of right knee 011 03/11/2012 Osteoarthritis of basilar joint of thumb, left 0 10/10/2010 03/11/2012 Overview: [facility] DVT (deep venous thrombosis) 01/10/2010 Gross [...] infarction 03/11/2012 Scoliosis 03/11/2012 Overview: Xray from [facility] 08/03/11 showed; also has narrowing L3-L4 and L4- L5; DJD L3, L4, L5; slight anterior displacement L4 on L5. documented as of this encounter (statuses as of 09/25/2021) [facility] of [facility] illness Narrative* Problem Noted [...] 05/17/2011 07/25/2018 Other hammer toe (acquired) 01/05/2011 0904/2013 Overlapping toe 12/22/2010 03/11/2012 Overview: left second toe over great toe Lung nodule 10/20/2010 03/11/2012 Overview: 04/15/10 [facility] RML nodule, f/u enc 6mo Degenerative joint disease of right knee 011 03/11/2012 Osteoarthritis of basilar joint of thumb, left 0 10/10/2010 03/11/2012 Overview: [facility] DVT (deep venous thrombosis) 01/10/2010 Gross hematuria [...] infarction 03/11/2012 Scoliosis 03/11/2012 Overview: Xray from [facility] 08/03/11 showed; also has narrowing L3-L4 and L4- L5; DJD L3, L4, L5; slight anterior displacement L4 on L5. documented as of this encounter (statuses as of 10/31/2021) [facility] of [facility] illness Narrative* Problem Noted [...] toe Lung nodule 10/20/2010 03/11/2012 Overview: 04/15/10 [facility] RML nodule, f/u enc 6mo Degenerative joint disease of right knee 011 03/11/2012 Osteoarthritis of basilar joint of thumb, left 0 10/10/2010 03/11/2012 Overview: [facility] DVT (deep venous thrombosis) 01/10/2010 Gross [...] infarction 03/11/2012 Scoliosis 03/11/2012 Overview: Xray from [facility] 08/03/11 showed; also has narrowing L3-L4 and L4- L5; DJD L3, L4, L5; slight anterior displacement L4 on L5. documented as of this encounter (statuses as of 02/23/2022) [facility] of [facility] illness Narrative* Problem Noted [...] toe Lung nodule 10/20/2010 03/11/2012 Overview: 04/15/10 [facility] RML nodule, f/u enc 6mo Degenerative joint disease of right knee 011 03/11/2012 Osteoarthritis of basilar joint of thumb, left 0 10/10/2010 03/11/2012 Overview: [facility] DVT (deep venous thrombosis) 01/10/2010 Gross [...] infarction 03/11/2012 Scoliosis 03/11/2012 Overview: Xray from [facility] 08/03/11 showed; also has narrowing L3-L4 and L4- L5; DJD L3, L4, L5; slight anterior displacement L4 on L5. documented as of this encounter (statuses as of 04/16/2022) [facility] illness Narrative* Problem Noted [...] toe Lung nodule 10/20/2010 03/11/2012 Overview: 04/15/10 [facility] RML nodule, f/u enc 6mo Degenerative joint disease of right knee 011 03/11/2012 Osteoarthritis of basilar joint of thumb, left 0 10/10/2010 03/11/2012 Overview: [facility] DVT (deep venous thrombosis) 01/10/2010 Gross [...] infarction 03/11/2012 Scoliosis 03/11/2012 Overview: Xray from [facility] 08/03/11 showed; also has narrowing L3-L4 and L4- L5; DJD L3, L4, L5; slight anterior displacement L4 on L5. documented as of this encounter (statuses as of 07/04/2022) [facility] of [facility] illness Narrative* Problem Noted [...] toe Lung nodule 10/20/2010 03/11/2012 Overview: 04/15/10 [facility] RML nodule, f/u enc 6mo Degenerative joint disease of right knee 011 03/11/2012 Osteoarthritis of basilar joint of thumb, left 0 10/10/2010 03/11/2012 Overview: [facility] DVT (deep venous thrombosis) 01/10/2010 Gross [...] infarction 03/11/2012 Scoliosis 03/11/2012 Overview: Xray from [facility] 08/03/11 showed; also has narrowing L3-L4 and L4- L5; DJD L3, L4, L5; slight anterior displacement L4 on L5. documented as of this encounter (statuses as of 08/06/2022) [facility] Narrative* Problem Noted [...] toe Lung nodule 10/20/2010 03/11/2012 Overview: 04/15/10 [facility] RML nodule, f/u enc 6mo Degenerative joint disease of right knee 10/19/2010 03/11/2012 Osteoarthritis of basilar roula int of thumb, left 10/10/2010 03/11/2012 Overview: [facility] DVT (deep venous thrombosis) 01/10/2010 03/11/2012 [...] infarction 03/11/2012 Scoliosis 03/11/2012 Overview: Xray from [facility] 08/03/11 showed; also has narrowing L3-L4 and L4- L5; DJD L3, L4, L5; slight anterior displacement L4 on L5. documented as of this encounter (statuses as of 12/23/2022) [facility] Narrative* Problem Noted [...] toe Lung nodule 10/20/2010 03/11/2012 Overview: 04/15/10 [facility] RML nodule, f/u enc 6mo Degenerative joint disease of right knee 10/19/2010 03/11/2012 Osteoarthritis of basilar roula int of thumb, left 10/10/2010 03/11/2012 Overview: [facility] DVT (deep venous thrombosis) 01/10/2010 03/11/2012 [...] infarction 03/11/2012 Scoliosis 03/11/2012 Overview: Xray from [facility] 08/03/11 showed; also has narrowing L3-L4 and L4- L5; DJD L3, L4, L5; slight anterior displacement L4 on L5. documented as of this encounter (statuses as of 05/09/2023) [facility] Diagnosis Chronic deep vein thrombosis (DVT) of proximal vein of both lower extremities (HCC) documented [facility] this [facility]Evaluation noteNo assessment information availableWMercy Health [facility] Work Phone: Evaluation note* Diagnosis Allergic rhinitis, unspecified seasonality, unspecified trigger [facility] Chronic deep vein thrombosis (DVT) of proximal vein of both lower extremities (HCC) [facility] Cough- Primary [facility] Diagnosis Postmenopausal atrophic vaginitis- Primary Breast cancer screening by mammogram Dense breast Inconclusive mammogram [facility] Diagnosis Breast cancer screening by mammogram Dense breast Inconclusive mammogram [facility] Diagnosis Encounter for gynecological examination (general) (routine) without abnormal findings- Primary Encounter for screening mammogram for breast cancer [facility] Cough [facility] Cough [facility] Diagnosis Encounter for screening mammogram for breast cancer [facility] Diagnosis Burning with urination- Primary Dysuria [facility] Diagnosis Urinary tract infection without hematuria, site unspecified- Primary [facility] Diagnosis Encounter for gynecological examination (general) (routine) without abnormal findings- Primary Encounter for screening mammogram for breast cancer Colon cancer screening Special screening for malignant neoplasms, colon Special screening for malignant neoplasms, colon documented in this encounter [facility] for referral (narrative)* Diagnostic Procedure Only (Routine) - Pending Review Specialty Diagnoses / Procedures Referred By Lauro guerra Referred To Contact [facility] Diagnoses Breast cancer screening by mammogram Dense breast Procedures DANAY SCREENING W HANNAH SCREENING DIGITAL BREAST TOMOSYNTHESIS BI SCREENING MAMMOGRAPHY BI 2-VIEW BREAST INC Argelia Gonzalez MD [address] [place] [address] [facility] [address] [id number] Referral ID Status Reason Start Date Expiration Date Visits Requested Visits Authorized [id number] Pending Review Auto-Generat ed Referral 04/16/2022 05/16/2023 1 1 [facility] for referral (narrative)* Diagnostic Procedure Only (Routine) - Authorized Specialty Diagnoses / Procedures Referred By Lauro guerra Referred To Contact [facility] Diagnoses Encounter for screening mammogram for breast cancer Procedures DANAY SCREENING SCREENING MAMMOGRAPHY BI 2-VIEW BREAST INC Argelia Gonzalez MD [address] [place] [address] [facility] [address] [place] [address] Referral ID Status Reason Start Date Expiration Date Visits Requested Visits Authorized [id number] Authorized Auto-Generat ed Referral 05/09/2023 06/07/2024 1 1 T [facility] for visit Narrative* Diagnostic Procedure Only (Routine) - Closed Specialty Diagnoses / Procedures Referred By Lauro guerra Referred To Contact [facility] Diagnoses Breast cancer screening by mammogram Dense breast Procedures DANAY SCREENING W HANNAH SCREENING DIGITAL BREAST TOMOSYNTHESIS BI SCREENING MAMMOGRAPHY BI 2-VIEW BREAST INC Argelia Gonzalez MD [address] [place] [address] [facility] [address] [place] [address] Referral ID Status Reason Start Date Expiration Date V isits Requested Visits Authorized [id number] Closed Auto-Generate d Referral 04/16/2022 05/16/[address] [facility]* Diagnostic Procedure Only (Routine) - Closed Specialty Diagnoses / Procedures Referred By Contac t Referred To Contact [facility] Diagnoses Encounter for screening mammogram for breast cancer Procedures DANAY SCREENING SCREENING MAMMOGRAPHY BI 2-VIEW BREAST INC CAD Argelia Thomson MD [address] [place] [address] [facility] [address] [place] [address] Referral ID Status Reason Start Date Expiration Date V isits Requested Visits Authorized [id number] Closed Auto-Generate d Referral 05/09/2023 06/07/[address] 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 Advance Directive(s) 01/13/2010 11:03 AM Advance Directive Response Recorded Date/ Time Advance Directives No March 19, 2014 9:11am Living Will No April 15, 2 020 3:10pm Power of Community Artist No April 15, 2019 3:10pm Documents on File Type Date Recorded 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 Yes April 17, 2024 11:44am Name of Medical Power of Community Artist Obey Marcos April 17, 2024 11:44am Advance Directives No March 19, 2014 10:11am Advance Directive Response Recorded Date/ Time Do you have a Healthcare Pow er of Community Artist? Yes June 10, 2024 12:26am Name of Medical Power of Community Artist quan marcos -s on June 10, 2024 12:26am Living Will Yes April 17 11:44am Do you have a Healthcare Pow er of Community Artist? Yes April 17, 2024 11:44am Name of Medical Power of Community Artist Obey Marcos April 17, 2024 11:44am Advance Directives No March 19, 2014 10:11am Advance Directive Response Recorded Date/ Time Do you have a Healthcare Pow er of Community Artist? Yes June 10, 2024 12:26am Name of Medical Power of Community Artist quan marcos -s on June 10, 2024 12:26am Do you have a Healthcare Pow er of Community Artist? Yes June 16, 2024 3:54pm Name of Medical Power of Community Artist Obey Marcos, son June 16, 2024 3:54pm Living Will Yes April 17 11:44am Do you have a Healthcare Pow er of Community Artist? Yes April 17, 2024 11:44am Name of Medical Power of Community Artist Obey Marcos April 17, 2024 11:44am Do you have a Healthcare Pow er of Community Artist? Yes June 18, 2024 3:07pm Advance Directives No March 19, 2014 10:11am Advance Directive Response Recorded Date/ Time Living Will No July 08, 2023 1 0:20am Do you have a Healthcare Pow er of Community Artist? Yes July 08, 2023 10:20am Do you have a Healthcare Pow er of Community Artist? Yes June 10, 2024 12:26am Name of Medical Power of Community Artist quan marcos -s on June 10, 2024 12:26am Do you have a Healthcare Pow er of Community Artist? Yes June 16, 2024 3:54pm Name of Medical Power of Community Artist Obey Marcos, melissa June 16, 2024 3:54pm Do you have a Healthcare Pow er of Community Artist? Yes June 18, 2024 3:07pm Advance Directives No March 19, 2014 10:11am Chief Complaint and Reason for Visit Chief Complaint S/O S/O S/O Chief Complaint S/O S/O S/O 6 MO F/U (DJN PT - NEEDS EARLY A.M.) Pneumonia, unspecified organism Reason for Visit Aortic root dilatati on Benign essential HTN Cardiomyopathy Hyperlipidemia Paroxysmal atrial fibrillation Chief Complaint S/O 6 MO F/U (DJN PT - NEEDS EARLY A.M.) Pneumonia, unspecified organism LABWORK Reason for Visit Aortic root dilatati on Benign essential HTN Cardiomyopathy Hyperlipidemia Paroxysmal atrial fibrillation Chief Complaint LABWORK TYPE 2 DM CHILLS WITHOUT FEVER 6 M FU Reason for Visit Aortic root dilatati on Benign essential HTN Cardiomyopathy Hyperlipidemia Paroxysmal atrial fibrillation Chief Complaint CHILLS WITHOUT FEVER 6 M FU LABWORK Reason for Visit Aortic root dilatati on Benign essential HTN Cardiomyopathy Hyperlipidemia Paroxysmal atrial fibrillation Chief Complaint LABWORK POST DAWOOD Chief Complaint POST DAWOOD 1 Y FU DUE ON OR AROUND DATE LISTED Reason for Visit Benign essential HTN Paroxysmal atrial fibrillation Chief Complaint POST DAWOOD 1 Y FU DUE ON OR AROUND DATE LISTED PALPITATIONS Reason for Visit Benign essential HTN Paroxysmal atrial fibrillation Chief Complaint POST DAWOOD 1 Y FU DUE ON OR AROUND DATE LISTED PALPITATIONS Diarrhea Reason for Visit Benign essential HTN Paroxysmal atrial fibrillation Chief Complaint DUE ON OR AROUND WALKER E LISTED PALPITATIONS Diarrhea Chief Complaint 9 M FU Reason for Visit Aortic root dilatati on Benign essential HTN Cardiomyopathy Hyperlipidemia Paroxysmal atrial fibrillation Chief Complaint Admit Date NOSEBLEED April 17, 2024 10:31am 1 Y FU May 27, 2024 8:45 am Reason for Visit Admit Date Aortic root dilatation May 27, 2024 8 :45am Benign essential HTN May 27, 2024 8:4 5am Cardiomyopathy May 27, 2024 8:45 am Chronic kidney disease, stage 3 May 8:45am Hyperlipidemia May 27, 2024 8:45 am Nonrheumatic aortic (valve) stenosis Apr 2024 8:45am Paroxysmal atrial fibrillation May 8:45am Chief Complaint Admit Date NOSEBLEED April 17, 2024 10:31am 1 Y FU May 27, 2024 8:45 am RIGHT SPIRAL FEMUR FRACTURE AFTER FALL A T HOME June 09, 2024 11:30pm RIGHT SPIRAL FEMUR FRACTURE AFTER FALL A T HOME June 10, 2024 6:12pm Reason for Visit Admit Date Aortic root dilatation May 27, 2024 8 :45am Benign essential HTN May 27, 2024 8:4 5am Cardiomyopathy May 27, 2024 8:45 am Chronic kidney disease, stage 3 May 8:45am Hyperlipidemia May 27, 2024 8:45 am Nonrheumatic aortic (valve) stenosis Apr 2024 8:45am Paroxysmal atrial fibrillation May 8:45am Cardiomyopathy June 09, 2024 11: 30pm Chronic anticoagulation June 09, 2024 11:30pm Closed right femoral fracture May 11:30pm Fall June 09, 2024 11: 30pm History of total right hip replacement A pril 2024 11:30pm History of total right knee replacement June 09, 2024 11:30pm History of pulmonary embolus (PE) June 09, 2024 11:30pm Left foot drop June 09, 2024 11: 30pm Overweight (BMI 25.0-29.9) June 09, 025 11:30pm Spiral fracture of shaft of femur June 09, 2024 11:30pm History of DVT (deep vein thrombosis) Ap ril 2024 11:30pm Chief Complaint Admit Date NOSEBLEED April 17, 2024 10:31am 1 Y FU May 27, 2024 8:45 am RIGHT SPIRAL FEMUR FRACTURE AFTER FALL A T HOME June 09, 2024 11:30pm RIGHT SPIRAL FEMUR FRACTURE AFTER FALL A T HOME June 10, 2024 6:12pm RIGHT SPIRAL FEMUR FRACTURE AFTER FALL A T HOME June 11, 2024 5:14pm RIGHT SPIRAL FEMUR FRACTURE AFTER FALL A T HOME June 12, 2024 7:39pm RIGHT SPIRAL FEMUR FRACTURE AFTER FALL A T HOME June 13, 2024 11:36am RIGHT SPIRAL FEMUR FRACTURE AFTER FALL A T HOME June 14, 2024 2:43pm RIGHT SPIRAL FEMUR FRACTURE AFTER FALL A T HOME June 15, 2024 8:43am R FEMUR FRACTURE June 15, 2024 1:1 7pm R FEMUR FRACTURE June 17, 2024 7:0 7pm Reason for Visit Admit Date Aortic root dilatation May 27, 2024 8 :45am Benign essential HTN May 27, 2024 8:4 5am Cardiomyopathy May 27, 2024 8:45 am Chronic kidney disease, stage 3 May 8:45am Hyperlipidemia May 27, 2024 8:45 am Nonrheumatic aortic (valve) stenosis Apr 2024 8:45am Paroxysmal atrial fibrillation May 8:45am Cardiomyopathy June 09, 2024 11: 30pm Chronic anticoagulation June 09, 2024 11:30pm Fall June 09, 2024 11: 30pm History of total right hip replacement A pril 2024 11:30pm History of total right knee replacement June 09, 2024 11:30pm History of pulmonary embolus (PE) June 09, 2024 11:30pm Left foot drop June 09, 2024 11: 30pm Overweight (BMI 25.0-29.9) June 09, 2 025 11:30pm History of DVT (deep vein thrombosis) Ap ril 2024 11:30pm Closed right femoral fracture May 11:30pm Spiral fracture of shaft of femur June 09, 2024 11:30pm Atrial fibrillation June 15, 2024 1:1 7pm Debility June 15, 2024 1:1 7pm Essential (primary) hypertension May 202024 1:17pm GERD (gastroesophageal reflux disease) A pril 2024 1:17pm Iron deficiency anemia June 15, 2024 1:17pm Low back pain June 15, 2024 1:1 7pm Overactive bladder June 15, 2024 1:1 7pm Type 2 diabetes mellitus with hyperglyce sera June 15, 2024 1:17pm CKD stage 3a, GFR 45-59 ml/min May 1:17pm Hyperlipidemia June 15, 2024 1:1 7pm Closed right femoral fracture May 1:17pm Iron deficiency anemia June 19, 2024 10: 10am Chief Complaint Admit Date 1 Y FU Nikki 9th, 2025 8:45 am RIGHT SPIRAL FEMUR FRACTURE AFTER FALL A T HOME June 09, 2024 11:30pm RIGHT SPIRAL FEMUR FRACTURE AFTER FALL A T HOME June 10, 2024 6:12pm RIGHT SPIRAL FEMUR FRACTURE AFTER FALL A T HOME June 11, 2024 5:14pm RIGHT SPIRAL FEMUR FRACTURE AFTER FALL A T HOME June 12, 2024 7:39pm RIGHT SPIRAL FEMUR FRACTURE AFTER FALL A T HOME June 13, 2024 11:36am RIGHT SPIRAL FEMUR FRACTURE AFTER FALL A T HOME June 14, 2024 2:43pm RIGHT SPIRAL FEMUR FRACTURE AFTER FALL A T HOME June 15, 2024 8:43am R FEMUR FRACTURE June 15, 2024 1:1 7pm R FEMUR FRACTURE June 17, 2024 7:0 7pm TWO ORDERS: DR. OLMOS AND August 10:30am Family History No Family History Records Found Relationship Condition Age at Onset Recorded Date/T baudilio mother Coronary artery disease Unknown Deep vein thrombosis (DVT) Unknown Hypertension Unknown father Malignant neoplasm of prostate Unknown sister Malignant neoplasm of breast Unknown Summary Purpose Additional Source Comments Source Comments (unrecognize d section and content) In the event this informatio n is protected by the Federal Confidentiality of Alcohol and Drug Abuse Patient Records regulations: The Federal rules restrict any use of the information to criminally investigate or prosecute any alcohol or drug abuse patient.[facility] the event this information is protected by the Federal Confidentiality of Alcohol and Drug Abuse Patient Records regulations: The Federal rules restrict any use of the information to criminally investigate or prosecute any alcohol or drug abuse patient.[facility] the event this information is protected by the Federal Confidentiality of Alcohol and Drug Abuse Patient Records regulations: The Federal rules restrict any use of the information to criminally investigate or prosecute any alcohol or drug abuse patient.[facility] Center[facility] the event this information is protected by the Federal Confidentiality of Alcohol and Drug Abuse Patient Records regulations: The Federal rules restrict any use of the information to criminally investigate or prosecute any alcohol or drug abuse patient.[facility] Center[facility] the event this information is protected by the Federal Confidentiality of Alcohol and Drug Abuse Patient Records regulations: The Federal rules restrict any use of the information to criminally investigate or prosecute any alcohol or drug abuse patient.[facility] Center[facility] the event this information is protected by the Federal Confidentiality of Alcohol and Drug Abuse Patient Records regulations: The Federal rules restrict any use of the information to criminally investigate or prosecute any alcohol or drug abuse patient.[facility] Center[facility] the event this information is protected by the Federal Confidentiality of Alcohol and Drug Abuse Patient Records regulations: The Federal rules restrict any use of the information to criminally investigate or prosecute any alcohol or drug abuse patient.[facility] Center[facility] the event this information is protected by the Federal Confidentiality of Alcohol and Drug Abuse Patient Records regulations: The Federal rules restrict any use of the information to criminally investigate or prosecute any alcohol or drug abuse patient.[facility] Center[facility] the event this information is protected by the Federal Confidentiality of Alcohol and Drug Abuse Patient Records regulations: The Federal rules restrict any use of the information to criminally investigate or prosecute any alcohol or drug abuse patient.[facility] CenterIn the event this information is protected by the Federal Confidentiality of Alcohol and Drug Abuse Patient Records regulations: The Federal rules restrict any use of the information to criminally investigate or prosecute any alcohol or drug abuse patient.[facility] CenterIn the event this information is protected by the Federal Confidentiality of Alcohol and Drug Abuse Patient Records regulations: The Federal rules restrict any use of the information to criminally investigate or prosecute any alcohol or drug abuse patient.[facility] CenterIn the event this information is protected by the Federal Confidentiality of Alcohol and Drug Abuse Patient Records regulations: The Federal rules restrict any use of the information to criminally investigate or prosecute any alcohol or drug abuse patient.[facility] CenterIn the event this information is protected by the Federal Confidentiality of Alcohol and Drug Abuse Patient Records regulations: The Federal rules restrict any use of the information to criminally investigate or prosecute any alcohol or drug abuse patient.[facility] CenterIn the event this information is protected by the Federal Confidentiality of Alcohol and Drug Abuse Patient Records regulations: The Federal rules restrict any use of the information to criminally investigate or prosecute any alcohol or drug abuse patient.[facility] CenterIn the event this information is protected by the Federal Confidentiality of Alcohol and Drug Abuse Patient Records regulations: The Federal rules restrict any use of the information to criminally investigate or prosecute any alcohol or drug abuse patient.[facility] CenterIn the event this information is protected by the Federal Confidentiality of Alcohol and Drug Abuse Patient Records regulations: The Federal rules restrict any use of the information to criminally investigate or prosecute any alcohol or drug abuse patient.[facility] CenterIn the event this information is protected by the Federal Confidentiality of Alcohol and Drug Abuse Patient Records regulations: The Federal rules restrict any use of the information to criminally investigate or prosecute any alcohol or drug abuse patient.[facility] CenterIn the event this information is protected by the Federal Confidentiality of Alcohol and Drug Abuse Patient Records regulations: The Federal rules restrict any use of the information to criminally investigate or prosecute any alcohol or drug abuse patient.[facility] CenterIn the event this information is protected by the Federal Confidentiality of Alcohol and Drug Abuse Patient Records regulations: The Federal rules restrict any use of the information to criminally investigate or prosecute any alcohol or drug abuse patient.[facility] CenterIn the event this information is protected by the Federal Confidentiality of Alcohol and Drug Abuse Patient Records regulations: The Federal rules restrict any use of the information to criminally investigate or prosecute any alcohol or drug abuse patient.[facility] CenterIn the event this information is protected by the Federal Confidentiality of Alcohol and Drug Abuse Patient Records regulations: The Federal rules restrict any use of the information to criminally investigate or prosecute any alcohol or drug abuse patient.[facility] CenterIn the event this information is protected by the Federal Confidentiality of Alcohol and Drug Abuse Patient Records regulations: The Federal rules restrict any use of the information to criminally investigate or prosecute any alcohol or drug abuse patient.[facility] Reason for Visit (unrecogniz ed section and content) Reason Comments Anticoagulation Reason Onset Date Comments Refill Request 05/18/2021 Reason Onset Date Comments Anticoagulation 05/26/2021 Reason Comments Ear Problem right ear feels like a furnace is running and has cold symptoms x 1 day Reason Comments Patient Update Reason Onset Date Comments Population Health Navigation Outreach 09/25/2021 HCC Reason Comments Future Appointment Reason Comments Opened In Error Reason Onset Date Comments Allied Health Visit 07/04/2022 Medication A dherence Outreach Reason Comments Results Reason Comments Yearly Exam Reason Comments Urinary Problem Reason Comments Well Woman Reason Comments Appointment Reason Comments Patient Question Care Teams (unrecognized sec tion and content) Roll Forger Relationship Specialty Start Date End Date Bernardo Alfaro MD [address] [place] [address] PCP - General Internal Medicine 03/11/12 Roll Forger Relationship Specialty Start Date End Date Bernardo Alfaro MD [address] [place] [address] PCP - General Internal Medicine 03/11/12 Roll Forger Relationship Specialty Start Date End Date Bernardo Alfaro MD [address] [place], [place] [id number] PCP - General Internal Medicine 03/11/12 Roll Forger Relationship Specialty Start Date End Date Bernardo Alfaro MD [address] [place], [place] [id number] PCP - General Internal Medicine 03/11/12 Roll Forger Relationship Specialty Start Date End Date Bernardo Alfaro MD [address] [place] [address] PCP - General Internal Medicine 03/11/12 Roll Forger Relationship Specialty Start Date End Date Bernardo Alfaro MD [address] [place] [address] PCP - General Internal Medicine 03/11/12 Roll Forger Relationship Specialty Start Date End Date Bernardo Alfaro MD [address] [place] [address] PCP - General Internal Medicine 03/11/12 Roll Forger Relationship Specialty Start Date End Date Quentin Kellogg Chi [address] [place] [address] PCP - General Gerontology 02/22/22 Team Status: Active Member Role Status Dates Dr. Bernardo Alfaro MD Family Provider Active Dr. Quentin Kellogg MD Primary Care Provider Active Team Status: Inactive Member Role Status Dates Dr. Bernardo Alfaro MD Referring Provider Active Raghavendra Pantoja MAINFRAME SYSTEMS PROGRAMMER, MAINFRAME SYSTEMS PROGRAMMER-C Attending Provider Active Dr. Quentin Kellogg MD Primary Care Provider Active Team Status: Inactive Member Role Status Dates Dr. Quentin Kellogg MD Primary Care Provi yenni, Attending Provider, Referring Provider Active Team Status: Inactive Member Role Status Dates Dr. Quentin Kellogg MD Primary Care Provider, Attending Provider Active Team Status: Inactive Member Role Status Dates Dr. Quentin Kellogg MD Primary Care Provider Active Dr. Alma Olmos DO Attending Provider Active Roll Forger Relationship Specialty Start Date End Date Quentin Kellogg Chi [address] [place] [address] PCP - General Gerontology 02/22/22 Team Status: Inactive Member Role Status Dates Dr. Alma Olmos DO Attending Provider Active Dr. Quentin Kellogg MD Primary Care Provider Active Team Status: Active Member Role Status Dates Dr. Quentin Kellogg MD Primary Care Provi yenni, Attending Provider, Referring Provider Active Roll Forger Relationship Specialty Start Date End Date ValdezQuentin browning Chi [address] [place], [place] [id number] PCP - General Gerontology 02/22/22 Roll Forger Relationship Specialty Start Date End Date Quentin Kellogg Chi [address] [address] PCP - General Gerontology 02/22/22 Team Status: Inactive Member Role Status Dates Dr. Quentin Kellogg MD Primary Care Provider, Referring Provider Active Dr. Micky Bateman MD Attending Provider Active Team Status: Active Member Role Status Dates Dr. Quentin Kellogg MD Primary Care Provider, Attending Provider Active Team Status: Inactive Member Role Status Dates Dr. Quentin Kellogg MD Primary Care Provider Active Dr. Will Colmenares MD Emergency Provider Active Team Status: Inactive Member Role Status Dates Dr. Quentin Kellogg MD Primary Care Provider Active Dr. Will Colmenares MD Attending Provider, Emergency Provider Active Roll Forger Relationship Specialty Start Date End Date Quentin Kellogg Chi [address] [id number] PCP - General Gerontology 02/22/22 Team Status: Inactive Member Role Status Dates Dr. Quentin Kellogg MD Primary Care Provider, Referring Provider Active Raghavendra Pantoja MAINFRAME SYSTEMS PROGRAMMER, MAINFRAME SYSTEMS PROGRAMMER-C Attending Provider Active Roll Forger Relationship Specialty Start Date End Date Quentin Kellogg Chi [address] [id number] PCP - General Gerontology 02/22/22 Team Status: Inactive Member Role Status Dates Dr. Quentin Kellogg MD Primary Care Provider Active Dr. Alma Olmos DO Attending Provider, Referring P ashish Active Team Status: Active Member Role Status Dates Dr. Quentin Kellogg MD Primary Care Provider Active Dr. Alma Olmos DO Attending Provider Active Roll Forger Relationship Specialty Start Date End Date Bernardo Alfaro MD [address] [place], [place] [address] PCP - General Internal Medicine 03/11/12 02/21/22 Roll Forger Relationship Specialty Start Date End Date Bernardo Alfaro MD [address] [facility] [address] PCP - General Internal Medicine 03/11/12 02/21/22 Roll Forger Relationship Specialty Start Date End Date Quentin Kellogg Ayden [address] [place] [address] PCP - General Gerontology 02/22/22 Roll Forger Relationship Specialty Start Date End Date Quentin Kellogg Ayden [address] [place], [place] [id number] PCP - General Gerontology 02/22/22 Team Status: Active Member Role Status Dates Quentin Kellogg Primary Care Provider Active Team Status: Inactive Member Role Status Dates Dr. Quentin Kellogg MD Primary Care Provider Active Start: March 19, 2024 End: March 19, 2024 Dr. Alma Olmos DO Attending Provider Active Start: March 19, 2024 End: March 19, 2024 Team Status: Inactive Member Role Status Dates Dr. Quentin Kellogg MD Primary Care Provider Active Start: March 27, 2024 End: March 27, 2024 Dr. Alma Olmos DO Attending Provider Active Start: March 27, 2024 End: March 27, 2024 Team Status: Inactive Member Role Status Dates Dr. Quentin Kellogg MD Primary Care Provider Active Start: April 17, 2024 End: April 17, 2024 Dr. New Villafuerte DO Attending Provider Active Start: April 17, 2024 End: April 17, 2024 Dr. New Villafuerte DO Emergency Provider Active Start: April 17, 2024 End: April 17, 2024 Team Status: Inactive Member Role Status Dates Dr. Quentin Kellogg MD Primary Care Provider Active Start: May 25, 2024 End: May 25, 2024 Dr. Quentin Kellogg MD Attending Provider Active Start: May 25, 2024 End: May 25, 2024 Team Status: Inactive Member Role Status Dates Dr. Quentin Kellogg MD Primary Care Provider Active Start: May 27, 2024 End: May 27, 2024 Dr. Quentin Kellogg MD Referring Provider Active Start: May 27, 2024 End: May 27, 2024 CAIN Mazariegos Attending Provider Active St art: May 27, 2024 End: May 27, 2024 Roll Forger Relationship Specialty Start Date End Date Valdez Quentin Hensley [address] [place], [place] [id number] PCP - General Gerontology 02/22/22 Roll Forger Relationship Specialty Start Date End Date Valdez Quentin Hensley [address] [place], [place] [address] PCP - General Gerontology 02/22/22 Team Status: Active Member Role Status Dates Dr. Quentin Kellogg MD Primary Care Provider Active Team Status: Inactive Member Role Status Dates Dr. Quentin Kellogg MD Primary Care Provider Active Start: June 08, 2024 End: June 08, 2024 Dr. Quentin Kellogg MD Attending Provider Active Start: June 08, 2024 End: June 08, 2024 Dr. Quentin Kellogg MD Referring Provider Active Start: June 08, 2024 End: June 08, 2024 Team Status: Active Member Role Status Dates Dr. Quentin Kellogg MD Primary Care Provider Active Start: June 09, 2024 Dr. Easton Lazo MD Emergency Provider Active S tart: June 09, 2024 Dr. Mitchel Hightower DO Admit Provider Active Start: June 09, 2024 Dr. Mitchel Hightower DO Other Provider Active Start: June 09, 2024 Dr. Nathen George DO Attending Provider Active Start: June 09, 2024 Dr. Sivakumar Shannon MD Other Provider Active Sta rt: June 09, 2024 Team Status: Active Member Role Status Dates Dr. Quentin Kellogg MD Primary Care Provider Active Start: June 10, 2024 Dr. Easton Lazo MD Emergency Provider Active S tart: June 10, 2024 Dr. Mitchel Hightower DO Admit Provider Active Start: June 10, 2024 Dr. Mitchel Hightower DO Other Provider Active Start: June 10, 2024 Dr. Nathen George DO Attending Provider Active Start: June 10, 2024 Dr. Nathen George DO Other Provider Active S tart: June 10, 2024 Dr. Sivakumar Shannon MD Other Provider Active Sta rt: June 10, 2024 Roll Forger Relationship Specialty Start Date End Date Valdez Quentin Hensley [address] [facility] [address] [place] [address] PCP - General Gerontology 02/22/22 Team Status: Inactive Member Role Status Dates Dr. Quentin Kellogg MD Primary Care Provider Active Start: June 09, 2024 End: June 15, 2024 Dr. Easton Lazo MD Emergency Provider Active S tart: June 09, 2024 End: June 15, 2024 Dr. Mitchel Hightower DO Admit Provider Active Start: June 09, 2024 End: June 15, 2024 Dr. Mitchel Hightower DO Other Provider Active Start: June 09, 2024 End: June 15, 2024 Dr. Sivakumar Shannon MD Other Provider Active Sta rt: June 09, 2024 End: June 15, 2024 Dr. Mitchel Graham MD Attending Provider Active Start: June 09, 2024 End: June 15, 2024 Dr. Nathen George DO Other Provider Active S tart: June 09, 2024 End: June 15, 2024 Team Status: Active Member Role Status Dates Dr. Quentin Kellogg MD Primary Care Provider Active Start: June 11, 2024 Dr. Easton Lazo MD Emergency Provider Active S tart: June 11, 2024 Dr. Mitchel Hightower DO Admit Provider Active Start: June 11, 2024 Dr. Mitchel Hightower DO Other Provider Active Start: June 11, 2024 Dr. Nathen George DO Attending Provider Active Start: June 11, 2024 Dr. Nathen George DO Other Provider Active S tart: June 11, 2024 Dr. Sivakumar Shannon MD Other Provider Active Sta rt: June 11, 2024 Team Status: Active Member Role Status Dates Dr. Quentin Kellogg MD Primary Care Provider Active Start: June 12, 2024 Dr. Easton Lazo MD Emergency Provider Active S tart: June 12, 2024 Dr. Mitchel Hightower , Admit Provider Active Start: June 12, 2024 Dr. Mitchel Hightower DO Other Provider Active Start: June 12, 2024 Dr. Nathen George DO Attending Provider Active Start: June 12, 2024 Dr. Nathen George , Other Provider Active S tart: June 12, 2024 Dr. Sivakumar Shannon MD Other Provider Active Sta rt: June 12, 2024 Team Status: Active Member Role Status Dates Dr. Quentin Kellogg MD Primary Care Provider Active Start: June 13, 2024 Dr. Easton Lazo MD Emergency Provider Active S tart: June 13, 2024 Dr. Mitchel Hightower DO Admit Provider Active Start: June 13, 2024 Dr. Mitchel Hightower DO Other Provider Active Start: June 13, 2024 Dr. Nathen George DO Attending Provider Active Start: June 13, 2024 Dr. Nathen George DO Other Provider Active S tart: June 13, 2024 Dr. Sivakumar Shannon MD Other Provider Active Sta rt: June 13, 2024 Team Status: Active Member Role Status Dates Dr. Quentin Kellogg MD Primary Care Provider Active Start: June 14, 2024 Dr. Easton Lazo MD Emergency Provider Active S tart: June 14, 2024 Dr. Mitchel Hightower DO Admit Provider Active Start: June 14, 2024 Dr. Mitchel Hightower DO Other Provider Active Start: June 14, 2024 Dr. Nathen George DO Attending Provider Active Start: June 14, 2024 Dr. Nathen George DO Other Provider Active S tart: June 14, 2024 Dr. Sivakumar Shannon MD Other Provider Active Sta rt: June 14, 2024 Team Status: Active Member Role Status Dates Dr. Quentin Kellogg MD Primary Care Provider Active Start: June 15, 2024 Dr. Easton Lazo MD Emergency Provider Active S tart: June 15, 2024 Dr. Mitchel Hightower DO Admit Provider Active Start: June 15, 2024 Dr. Mitchel Hightower DO Other Provider Active Start: June 15, 2024 Dr. Sivakumar Shannon MD Other Provider Active Sta rt: June 15, 2024 Dr. Mitchel Graham MD Attending Provider Active Start: June 15, 2024 Dr. Mitchel Graham MD Other Provider Active Star t: June 15, 2024 Dr. Nathen George DO Other Provider Active S tart: June 15, 2024 Team Status: Inactive Member Role Status Dates Dr. Quentin Kellogg MD Primary Care Provider Active Start: June 15, 2024 End: July 03, 2024 Dr. Quentin Kellogg MD Admit Provider Active Star t: June 15, 2024 End: July 03, 2024 Dr. Quentin Kellogg MD Attending Provider Active Start: June 15, 2024 End: July 03, 2024 Dr. Quentin Kellogg MD Referring Provider Active Start: June 15, 2024 End: July 03, 2024 Team Status: Active Member Role Status Dates Dr. Quentin Kellogg MD Primary Care Provider Active Start: June 17, 2024 Dr. Quentin Kellogg MD Admit Provider Active Star t: June 17, 2024 Dr. Quentin Kellogg MD Referring Provider Active Start: June 17, 2024 Dr. Quentin Kellogg MD Other Provider Active Star t: June 17, 2024 Dr. Roney Sher DO Attending Provider Active Start: June 17, 2024 Team Status: Inactive Member Role Status Dates Dr. Quentin Kellogg MD Primary Care Provider Active Start: June 19, 2024 End: June 19, 2024 Dr. Quentin Kellogg MD Referring Provider Active Start: June 19, 2024 End: June 19, 2024 Dr. Roney Sher DO Attending Provider Active Start: June 19, 2024 End: June 19, 2024 Team Status: Active Member Role Status Dates Dr. Quentin Kellogg MD Primary Care Provider Active Start: June 19, 2024 Dr. Quentin Kellogg MD Referring Provider Active Start: June 19, 2024 Dr. Roney Sher DO Attending Provider Active Start: June 19, 2024 Dr. Roney Sher DO Other Provider Active St art: June 19, 2024 Team Status: Active Member Role/Relationship Status Dates Dr. Quentin Kellogg MD Primary Care Provider Active Team Status: Inactive Member Role/Relationship Status Dates Dr. Quentin Kellogg MD Primary Care Provider Active Start: April 17, 2024 End: April 17, 2024 Dr. New Villafuerte DO Attending Provider Active Start: April 17, 2024 End: April 17, 2024 Dr. New Villafuerte DO Emergency Provider Active Start: April 17, 2024 End: April 17, 2024 Team Status: Inactive Member Role/Relationship Status Dates Dr. Quentin Kellogg MD Primary Care Provider Active Start: May 25, 2024 End: May 25, 2024 Dr. Quentin Kellogg MD Attending Provider Active Start: May 25, 2024 End: May 25, 2024 Team Status: Inactive Member Role/Relationship Status Dates Dr. Quentin Kellogg MD Primary Care Provider Active Start: May 27, 2024 End: May 27, 2024 Dr. Quentin Kellogg MD Referring Provider Active Start: May 27, 2024 End: May 27, 2024 CAIN Mazariegos Attending Provider Active St art: May 27, 2024 End: May 27, 2024 Team Status: Inactive Member Role/Relationship Status Dates Dr. Quentin Kellogg MD Primary Care Provider Active Start: June 08, 2024 End: June 08, 2024 Dr. Quentin Kellogg MD Attending Provider Active Start: June 08, 2024 End: June 08, 2024 Dr. Quentin Kellogg MD Referring Provider Active Start: June 08, 2024 End: June 08, 2024 Team Status: Inactive Member Role/Relationship Status Dates Dr. Quentin Kellogg MD Primary Care Provider Active Start: June 09, 2024 End: June 15, 2024 Dr. Easton Lazo MD Emergency Provider Active S tart: June 09, 2024 End: June 15, 2024 Dr. Mitchel Hightower DO Admit Provider Active Start: June 09, 2024 End: June 15, 2024 Dr. Mitchel Hightower DO Other Provider Active Start: June 09, 2024 End: June 15, 2024 Dr. Sivakumar Shannon MD Other Provider Active Sta rt: June 09, 2024 End: June 15, 2024 Dr. Mitchel Graham MD Attending Provider Active Start: June 09, 2024 End: June 15, 2024 Dr. Nathen George , Other Provider Active S tart: June 09, 2024 End: June 15, 2024 Team Status: Active Member Role/Relationship Status Dates Dr. Quentin Kellogg MD Primary Care Provider Active Start: June 10, 2024 Dr. Easton Lazo MD Emergency Provider Active S tart: June 10, 2024 Dr. Mitchel Hightower DO Admit Provider Active Start: June 10, 2024 Dr. Mitchel Hightower DO Other Provider Active Start: June 10, 2024 Dr. Nathen George DO Attending Provider Active Start: June 10, 2024 Dr. Nathen George DO Other Provider Active S tart: June 10, 2024 Dr. Sivakumar Shannon MD Other Provider Active Sta rt: June 10, 2024 Team Status: Active Member Role/Relationship Status Dates Dr. Quentin Kellogg MD Primary Care Provider Active Start: June 11, 2024 Dr. Easton Lazo MD Emergency Provider Active S tart: June 11, 2024 Dr. Mitchel Hightower DO Admit Provider Active Start: June 11, 2024 Dr. Mitchel Hightower DO Other Provider Active Start: June 11, 2024 Dr. Nathen George DO Attending Provider Active Start: June 11, 2024 Dr. Nathen George DO Other Provider Active S tart: June 11, 2024 Dr. Sivakumar Shannon MD Other Provider Active Sta rt: June 11, 2024 Team Status: Active Member Role/Relationship Status Dates Dr. Quentin Kellogg MD Primary Care Provider Active Start: June 12, 2024 Dr. Easton Lazo MD Emergency Provider Active S tart: June 12, 2024 Dr. Mitchel Hightower DO Admit Provider Active Start: June 12, 2024 Dr. Mitcehl Hightower DO Other Provider Active Start: June 12, 2024 Dr. Nathen Geogre DO Attending Provider Active Start: June 12, 2024 Dr. Nathen George DO Other Provider Active S tart: June 12, 2024 Dr. Sivakumar Shannon MD Other Provider Active Sta rt: June 12, 2024 Team Status: Active Member Role/Relationship Status Dates Dr. Quentin Kellogg MD Primary Care Provider Active Start: June 13, 2024 Dr. Easton Lazo MD Emergency Provider Active S tart: June 13, 2024 Dr. Mitchel Hightower DO Admit Provider Active Start: June 13, 2024 Dr. Mitchel Hightower DO Other Provider Active Start: June 13, 2024 Dr. Nathen George DO Attending Provider Active Start: June 13, 2024 Dr. Nathen George DO Other Provider Active S tart: June 13, 2024 Dr. Sivakumar Shannon MD Other Provider Active Sta rt: June 13, 2024 Team Status: Active Member Role/Relationship Status Dates Dr. Quentin Kellogg MD Primary Care Provider Active Start: June 14, 2024 Dr. Easton Lazo MD Emergency Provider Active S tart: June 14, 2024 Dr. Mitchel Hightower DO Admit Provider Active Start: June 14, 2024 Dr. Mitchel Hightower DO Other Provider Active Start: June 14, 2024 Dr. Nathen George DO Attending Provider Active Start: June 14, 2024 Dr. Nathen George DO Other Provider Active S tart: June 14, 2024 Dr. Sivakumar Shannon MD Other Provider Active Sta rt: June 14, 2024 Team Status: Active Member Role/Relationship Status Dates Dr. Quentin Kellogg MD Primary Care Provider Active Start: June 15, 2024 Dr. Easton Lazo MD Emergency Provider Active S tart: June 15, 2024 Dr. Mitchel Hightower DO Admit Provider Active Start: June 15, 2024 Dr. Mitchel Hightower DO Other Provider Active Start: June 15, 2024 Dr. Sivakumar Shannon MD Other Provider Active Sta rt: June 15, 2024 Dr. Mitchel Graham MD Attending Provider Active Start: June 15, 2024 Dr. Mitchel Graham MD Other Provider Active Star t: June 15, 2024 Dr. Nathen George DO Other Provider Active S tart: June 15, 2024 Team Status: Inactive Member Role/Relationship Status Dates Dr. Quentin Kellogg MD Primary Care Provider Active Start: June 15, 2024 End: July 03, 2024 Dr. Quentin Kellogg MD Admit Provider Active Star t: June 15, 2024 End: July 03, 2024 Dr. Quentin Kellogg MD Attending Provider Active Start: June 15, 2024 End: July 03, 2024 Dr. Quentin Kellogg MD Referring Provider Active Start: June 15, 2024 End: July 03, 2024 Team Status: Active Member Role/Relationship Status Dates Dr. Quentin Kellogg MD Primary Care Provider Active Start: June 17, 2024 Dr. Quentin Kellogg MD Admit Provider Active Star t: June 17, 2024 Dr. Quentin Kellogg MD Referring Provider Active Start: June 17, 2024 Dr. Quentin Kellogg MD Other Provider Active Star t: June 17, 2024 Dr. Roney Sher DO Attending Provider Active Start: June 17, 2024 Team Status: Inactive Member Role/Relationship Status Dates Dr. Quentin Kellogg MD Primary Care Provider Active Start: June 19, 2024 End: June 19, 2024 Dr. Quentin Kellogg MD Referring Provider Active Start: June 19, 2024 End: June 19, 2024 Dr. Roney Sher DO Attending Provider Active Start: June 19, 2024 End: June 19, 2024 Team Status: Active Member Role/Relationship Status Dates Dr. Quentin Kellogg MD Primary Care Provider Active Start: June 19, 2024 Dr. Quentin Kellogg MD Referring Provider Active Start: June 19, 2024 Dr. Roney Sher DO Attending Provider Active Start: June 19, 2024 Dr. Roney Sher DO Other Provider Active St art: June 19, 2024 Team Status: Inactive Member Role/Relationship Status Dates Dr. Quentin Kellogg MD Primary Care Provider Active Start: May 25, 2024 End: May 25, 2024 Dr. Quentin Kellogg MD Attending Provider Active Start: May 25, 2024 End: May 25, 2024 Team Status: Inactive Member Role/Relationship Status Dates Dr. Quentin Kellogg MD Primary Care Provider Active Start: May 27, 2024 End: May 27, 2024 Dr. Quentin Kellogg MD Referring Provider Active Start: May 27, 2024 End: May 27, 2024 CAIN Mazariegos Attending Provider Active St art: May 27, 2024 End: May 27, 2024 Team Status: Inactive Member Role/Relationship Status Dates Dr. Quentin Kellogg MD Primary Care Provider Active Start: June 08, 2024 End: June 08, 2024 Dr. Quentin Kellogg MD Attending Provider Active Start: June 08, 2024 End: June 08, 2024 Dr. Quentin Kellogg MD Referring Provider Active Start: June 08, 2024 End: June 08, 2024 Team Status: Inactive Member Role/Relationship Status Dates Dr. Quentin Kellogg MD Primary Care Provider Active Start: June 09, 2024 End: June 15, 2024 Dr. Easton Lazo MD Emergency Provider Active S tart: June 09, 2024 End: June 15, 2024 Dr. Mitchel Hightower DO Admit Provider Active Start: June 09, 2024 End: June 15, 2024 Dr. Mitchel Hightower DO Other Provider Active Start: June 09, 2024 End: June 15, 2024 Dr. Sivakumar Shannon MD Other Provider Active Sta rt: June 09, 2024 End: June 15, 2024 Dr. Mitchel Graham MD Attending Provider Active Start: June 09, 2024 End: June 15, 2024 Dr. Nathen George , Other Provider Active S tart: June 09, 2024 End: June 15, 2024 Team Status: Active Member Role/Relationship Status Dates Dr. Quentin Kellogg MD Primary Care Provider Active Start: June 10, 2024 Dr. Easton Lazo MD Emergency Provider Active S tart: June 10, 2024 Dr. Mitchel Hightower DO Admit Provider Active Start: June 10, 2024 Dr. Mitchel Hightower DO Other Provider Active Start: June 10, 2024 Dr. Nathen George DO Attending Provider Active Start: June 10, 2024 Dr. Nathen George , Other Provider Active S tart: June 10, 2024 Dr. Sivakumar Shannon MD Other Provider Active Sta rt: June 10, 2024 Team Status: Active Member Role/Relationship Status Dates Dr. Quentin Kellogg MD Primary Care Provider Active Start: June 11, 2024 Dr. Easton Lazo MD Emergency Provider Active S tart: June 11, 2024 Dr. Mitchel Hightower DO Admit Provider Active Start: June 11, 2024 Dr. Mitchel Hightower DO Other Provider Active Start: June 11, 2024 Dr. Nathen George DO Attending Provider Active Start: June 11, 2024 Dr. Nathen George DO Other Provider Active S tart: June 11, 2024 Dr. Sivakumar Shannon MD Other Provider Active Sta rt: June 11, 2024 Team Status: Active Member Role/Relationship Status Dates Dr. Quentin Kellogg MD Primary Care Provider Active Start: June 12, 2024 Dr. Easton Lazo MD Emergency Provider Active S tart: June 12, 2024 Dr. Mitchel Hightower DO Admit Provider Active Start: June 12, 2024 Dr. Mitchel Hightower DO Other Provider Active Start: June 12, 2024 Dr. Nathen George DO Attending Provider Active Start: June 12, 2024 Dr. Nathen George DO Other Provider Active S tart: June 12, 2024 Dr. Sivakumar Shannon MD Other Provider Active Sta rt: June 12, 2024 Team Status: Active Member Role/Relationship Status Dates Dr. Quentin Kellogg MD Primary Care Provider Active Start: June 13, 2024 Dr. Easton Lazo MD Emergency Provider Active S tart: June 13, 2024 Dr. Mitchel Hightower DO Admit Provider Active Start: June 13, 2024 Dr. Mitchel Hightower DO Other Provider Active Start: June 13, 2024 Dr. Nathen George DO Attending Provider Active Start: June 13, 2024 Dr. Nathen George DO Other Provider Active S tart: June 13, 2024 Dr. Sivakumar Shannon MD Other Provider Active Sta rt: June 13, 2024 Team Status: Active Member Role/Relationship Status Dates Dr. Quentin Kellogg MD Primary Care Provider Active Start: June 14, 2024 Dr. Easton Lazo MD Emergency Provider Active S tart: June 14, 2024 Dr. Mitchel Hightower DO Admit Provider Active Start: June 14, 2024 Dr. Mitchel Hightower DO Other Provider Active Start: June 14, 2024 Dr. Nathen George DO Attending Provider Active Start: June 14, 2024 Dr. Nathen George DO Other Provider Active S tart: June 14, 2024 Dr. Sivakumar Shannon MD Other Provider Active Sta rt: June 14, 2024 Team Status: Active Member Role/Relationship Status Dates Dr. Quentin Kellogg MD Primary Care Provider Active Start: June 15, 2024 Dr. Easton Lazo MD Emergency Provider Active S tart: June 15, 2024 Dr. Mitchel Hightower DO Admit Provider Active Start: June 15, 2024 Dr. Mitchel Hightower DO Other Provider Active Start: June 15, 2024 Dr. Sivakumar Shannon MD Other Provider Active Sta rt: June 15, 2024 Dr. Mitchel Graham MD Attending Provider Active Start: June 15, 2024 Dr. Mitchel Graham MD Other Provider Active Star t: June 15, 2024 Dr. Nathen George DO Other Provider Active S tart: June 15, 2024 Team Status: Inactive Member Role/Relationship Status Dates Dr. Qeuntin Kellogg MD Primary Care Provider Active Start: June 15, 2024 End: July 03, 2024 Dr. Quentin Kellogg MD Admit Provider Active Star t: June 15, 2024 End: July 03, 2024 Dr. Quentin Kellogg MD Attending Provider Active Start: June 15, 2024 End: July 03, 2024 Dr. Quentin Kellogg MD Referring Provider Active Start: June 15, 2024 End: July 03, 2024 Team Status: Active Member Role/Relationship Status Dates Dr. Quentin Kellogg MD Primary Care Provider Active Start: June 17, 2024 Dr. Quentin Kellogg MD Admit Provider Active Star t: June 17, 2024 Dr. Quentin Kellogg MD Referring Provider Active Start: June 17, 2024 Dr. Quentin Kellogg MD Other Provider Active Star t: June 17, 2024 Dr. Roney Sher DO Attending Provider Active Start: June 17, 2024 Team Status: Inactive Member Role/Relationship Status Dates Dr. Quentin Kellogg MD Primary Care Provider Active Start: June 19, 2024 End: June 19, 2024 Dr. Quentin Kellogg MD Referring Provider Active Start: June 19, 2024 End: June 19, 2024 Dr. Roney Sher DO Attending Provider Active Start: June 19, 2024 End: June 19, 2024 Team Status: Active Member Role/Relationship Status Dates Dr. Quentin Kellogg MD Primary Care Provider Active Start: June 19, 2024 Dr. Quentin Kellogg MD Referring Provider Active Start: June 19, 2024 Dr. Roney Sher DO Attending Provider Active Start: June 19, 2024 Dr. Roney Sher DO Other Provider Active St art: June 19, 2024 Team Status: Inactive Member Role/Relationship Status Dates Dr. Quentin Kellogg MD Primary Care Provider Active Start: August 18, 2024 Dr. Roseann Calixto MD Attending Provider Active Start: August 18, 2024 Team Status: Inactive Member Role/Relationship Status Dates Dr. Quentin Kellogg MD Primary Care Provider Active Start: September 09, 2024 End: September 09, 2024 Dr. Quentin Kellogg MD Attending Provider Active Start: September 09, 2024 End: September 09, 2024 Dr. Alma Olmos DO Other Provider Active Sta rt: September 09, 2024 End: September 09, 2024 Goals (unrecognized section and content) Goals may be documented in a n alternate sectionGoals may be documented in an alternate sectionGoals may be documented in an alternate sectionGoals may be documented in an alternate sectionGoals may be documented in an alternate sectionGoals may be documented in an alternate sectionGoals may be documented in an alternate sectionGoals may be documented in an alternate sectionGoals may be documented in an alternate sectionGoals may be documented in an alternate sectionGoals may be documented in an alternate sectionGoals may be documented in an alternate sectionGoals may be documented in an alternate sectionGoals may be documented in an alternate sectionGoals may be documented in an alternate sectionGoals may be documented in an alternate sectionGoals may be documented in an alternate sectionGoals may be documented in an alternate sectionGoals may be documented in an alternate sectionGoals may be documented in an alternate sectionGoals may be documented in an alternate sectionGoals may be documented in an alternate sectionGoals may be documented in an alternate section INFORMATION SOURCE (unrecogn ized section and content) DATE CREATED AUTHOR 06/23/2024 [facility] DATE CREATED AUTHOR AIDA CRUZ 12/17/2024 [facility] FOR RECORDS PERTAINING TO PATIENTS WHO ARE [...] BE BASED ON THE PRIMARY CLINICAL RECORDS. [employer] provides no warranty or guarantee of the accuracy or completeness of information in this document.
[2025-01-10] MEDS: 0.9% Normal Saline (1000mL) 1,000 ML 999 ML IV (08:11)
[2025-01-10 08:39] LABS: AST(SGOT) 57 U/L (<=31); Alanine Aminotransfer ALT/SGPT 39 U/L (<=34); Albumin, Serum 4.2 g/dL (3.4-4.8); Alkaline Phosphatase 139 U/L (35-104); Anion Gap 17 (5-15); BETA-HYDROXYBUTYRATE 0.4 mmol/L (0.0-0.3); BUN 37 mg/dL (4-19); BUN/Creat Ratio 22.9 RATIO (10-20); Calcium,Total 10.3 mg/dL (7.6-11.0); Carbon Dioxide 19.6 mmol/L (21.0-32.0); Chloride 103 mmol/L (98-108); Estimated Creatinine Clearance 27.54 ml/min (50-250); Globulin 3.9 g/dL (2.2-4.2); Glucose 326 mg/dL (70-99); Potassium 5.3 mmol/L (3.3-5.1)
[2025-01-10 08:41] LABS: Mucous, Urine 0 SEEN /hpf (<or=2+); Squamous Epithelial Cells - UA 0 SEEN /hpf (5-10)
[2025-01-10 08:46] LABS: Color, Urine Yellow (Yellow); Glucose, Dipstick 1000 mg/dl (Normal); Ketone-Dipstick 5 mg/dl (Negative); Leukocyte Esterase-Dipstick 100 /ul (Negative); Nitrite-Dipstick Negative (Negative); Occult Blood-Urine 250 /ul (Negative); Protein-Dipstick 100 mg/dl (Negative); Specific Gravity, Urine 1.010 (1.002-1.030); Urine Bilirubin Dipstick Negative (Negative)
--- NOTE | 2025-01-10 08:46 | ED.RN ---
Per Dr Molina- No NIH or GSWs needed due to comfort care.
[2025-01-10 09:01] LABS: Red Blood Cells-Urine 10-25 SEEN /hpf (0-5)
== END 2025-01-10 12:09 | disposition hospice, inpatient (51) ==
PROVIDERS: Emergency Provider Emergency Medicine; PCP Family Medicine Geriatric Medicine; Visit Provider Emergency Medicine
DX: I62.9 Nontraumatic intracranial hemorrhage, unspecified (principal); J42 Unspecified chronic bronchitis; I42.9 Cardiomyopathy, unspecified; E11.22 Type 2 diabetes mellitus with diabetic chronic kidney disease; Z79.4 Long term (current) use of insulin; N18.30 Chronic kidney disease, stage 3 unspecified; I12.9 Hypertensive chronic kidney disease with stage 1 through stage 4 chronic kidney disease, or unspecified chronic kidney disease; Z82.49 Family history of ischemic heart disease and other diseases of the circulatory system; E78.5 Hyperlipidemia, unspecified; Z90.710 Acquired absence of both cervix and uterus; Z86.718 Personal history of other venous thrombosis and embolism; Z87.891 Personal history of nicotine dependence; Z86.711 Personal history of pulmonary embolism; Z66 Do not resuscitate; R40.4 Transient alteration of awareness
CPT/HCPCS: 36600; 51702; 70450; 71045; 72125; 80053; 81001; 82010; 82803; 82962; 85025; 93005; 96360; 96361; 99285; A4216